=== PATIENT | female | born 1985 | race Caucasian/White ===

== ENCOUNTER 2022-06-06 19:45 | Emergency (ER) | payer OTHER, SELFPAY ==
[2022-06-06 20:26] VITALS: BP 132/80; PULSE 78; RESP 16; O2SAT 100
--- NOTE | 2022-06-06 20:41 | ED.GENADULT ---
HPI - General Adult General Chief complaint: Extremity Pain/Injury, Lower Stated complaint: Numbness in lower legs Time Seen by Provider: 06/06/22 20:29 History of Present Illness HPI narrative: Pt presents with bilateral lower extremity numbness starting yesterday. Pt has been working with her lap top on her lab. Pt has mild low back pain as well. Pt has some discomfort in the knees bilaterally as well. No other injuries. No weakness. No fever or chills. Pt has really no medical history and takes only Oral Control. Pt states that change in position doesnt affect her symptoms. She has no other neurological symptoms. No swelling and no pain with motion of the knees or back. She has tried no medications at home. Related Data Home Medications Medication Instructions Recorded Confirmed norgestimate-ethinyl estradiol tab 06/06/22 0.18 mg/0.215mg/0.25mg-35 mcg(28)tablet Allergies Allergy/AdvReac Type Severity Reaction Status Date / Time No Known Drug Allergies Allergy Verified 06/06/22 20:28 Review of Systems Status of ROS: Reports: 10 or more systems reviewed and unremarkable except as noted in History and below Exam Narrative: Exam Narrative: EXAM GENERAL: Patient appears comfortable and well. EYES: No scleral icterus. ENT: Tympanic membranes and oropharynx normal. THYROID: no thyroid nodules or thyromegaly. LYMPH: No supraclavicular or cervical lymphadenopathy. SKIN: Visible skin seen during exam normal or with benign process only. EXT: No dependent lower extremity pedal edema. HEART: Regular rate and rhythm with no murmurs, rubs, or gallops. LUNGS: Clear to auscultation bilaterally with no crackles or wheezes. ABD: Soft, non tender, non distended. PSYCH: Good eye contact, speech is not pressured. Neuro: Cranial nerves 2-12 grossly intact no focal defects. Const: Vital Signs, click to edit/add: Vital Signs - 24 hr 06/06/22 20:26 Pulse Rate [Left P ulse Oximeter] 78 Respiratory Rate 16 Blood Pressure [Ri ght Upper Arm] 132/80 Pulse Oximetry 100 Oxygen Delivery Me thod Room Air Course Course Hospital Course: Pt seen and examined. Vital Signs Vital signs: Initial Vital Signs Pulse Rate 78 06/06/22 20:26 Pulse Rhythm 06/06/22 20:26 Pulse Strength 3+ Normal 06/06/22 20:26 Respiratory Rate 16 06/06/22 20:26 Blood Pressure 132/80 06/06/22 20:26 Blood Pressure Mean 97 06/06/22 20:26 Blood Pressure Position Sitting 06/06/22 20:26 Pulse Oximetry 100 06/06/22 20:26 Oxygen Delivery Method 06/06/22 20:26 Vital Signs Pulse Rate 78 06/06/22 20:26 Respiratory Rate 16 06/06/22 20:26 Blood Pressure 132/80 06/06/22 20:26 Pulse Oximetry 100 06/06/22 20:26 Oxygen Delivery Method 06/06/22 20:26 Pulse Rate 78 06/06/22 20:26 Respiratory Rate 16 06/06/22 20:26 Blood Pressure 132/80 06/06/22 20:26 Pulse Oximetry 100 06/06/22 20:26 Oxygen Delivery Method 06/06/22 20:26 Medical Decision Making MDM Narrative Medical decision making narrative: Pt has a normal exam and vitals. Pt has been working in an awkward position and appears to have a radiculopathy. We did have a nice discussion about Guillain-[place] if symptoms were to worsen. Pt will be treated for radiculopahty with a short course of prednisone. If symptoms worsen, she will return or contact my office. Differential Diagnosis Differential Diagnosis: Nerve entrapment, Guillain-[place], MS, Joint pain, infection, CVA Discharge Plan Discharge Clinical Impression: Radiculopathy Patient Disposition: Home, Self-Care Condition: Stable Instructions: Lumbar Radiculopathy (ED) Additional Instructions: Prednsione as directed Activity Level: No Restrictions Discharge Diet: Regular Prescriptions: No Action norgestimate-ethinyl estradiol 0.18/0.215/0.25 mg-35 mcg (28) tablet Label Comments: TAKE 1 TABLET BY MOUTH EVERY DAY Follow Up/Referrals: Provider,Not a Local [Primary Care Provider] - Stand Alone Forms: [employer] Info Instructions
--- OUTSIDE RECORDS SUMMARY | 2022-06-06 20:56 | XMS_ITS | Encounter Summary ---
:1985 Author Organization [facility] Address [address] [place], [place] [address]. [place] [address] Care Team Providers Name Role Phone Annalisa Mark APRN CYTOPATHOLOGY TECHNOLOGIST Primary Care Provider [phone] Annalisa Mark APRN CYTOPATHOLOGY TECHNOLOGIST Unavailable [phone] Jacob Carmona MD Unavailable [phone] Encounter Details Date Type Department Care Team Description 02/20/2022 Travel Social History Tobacco Use Types Packs/Day Years Used Date Smoking Tobacco: Never Smokeless Tobacco: Never Alcohol Use Standard Drinks/Week Comments Not Currently 0 (1 standard drink = 0.6 oz pure alcoho l) Occaisional Alcohol Habits Answer Date Recorded How often do you have a drink containing alcohol? Monthly or less 10/17/2021 How many drinks containing alcohol do you have on a 1 or 2 10/17/2021 typical day when you are drinking? How often do you have six or more drinks on one Never 10/17/2021 occasion? Social Isolation Answer Date Recorded In a typical week, how many times do you More than three los es a week 10/17/2021 talk on the phone with family, friends, or neighbors? How often do you get together with friends Once a week 10/17/2021 or relatives? How often do you attend pentecostal or Patient refused 2021 protestant services? Do you belong to any clubs or No 10/17/2021 organizations such as pentecostal groups, unions, fraternal or athletic groups, or school groups? How often do you attend meetings of the Not asked clubs or organizations you belong to? Are you now , , , Never 10/17/2021 , never or living with a partner? Physical Activity Answer Date Recorded On average, how many days per week do you engage in moderate to 6 days 10/17/2021 strenuous exercise (like walking fast, running, jogging, dancing, swimming, biking, or other activities that cause a light or heavy sweat)? On average, how many minutes do you engage in exercise at th is 10 min 10/17/2021 level? Stress Answer Date Recorded Do you feel stress - tense, restless, nervous, or To some ex tent 10/17/2021 anxious, or unable to sleep at night because your mind is troubled all the time - these days? Financial Resource Strain Answer Date Recorded How hard is it for you to pay for the very basics like Not h ruthie at all 10/17/2021 food, housing, medical care, and heating? Food Insecurity Answer Date Recorded Within the past 12 months, you worried that your food would Never true 10/17/2021 run out before you got money to buy more. Within the past 12 months, the food you bought just didn't N ever true 10/17/2021 last and you didn't have money to get more. Transportation Needs Answer Date Recorded In the past 12 months, has lack of transportation kept you f rom No 10/17/2021 medical appointments or from getting medications? In the past 12 months, has lack of transportation kept you f rom No 10/17/2021 meetings, work, or getting things needed for daily living? Housing Stability Answer Date Recorded In the last 12 months, was there a time when you were not ab le No 10/17/2021 to pay the mortgage or rent on time? In the last 12 months, how many places have you lived? 1 10/17/2021 In the last 12 months, was there a time when you did not hav e a No 10/17/[address] or slept in a senior care (including now)? Education Answer Date Recorded What is the highest level of school Bachelor's degree (e.g., BA, AB, 02/15/2019 you have completed or the highest BS) degree you have received? Sex Assigned at Date Recorded Female 03/25/2021 2:01 PM CDT COVID-19 Exposure Response Date Recorded In the last 10 days, have you been in contact with No / Unsu re 02/20/2022 12:21 PM CDT someone who was confirmed or suspected to have Coronavirus/COVID-19? documented as of this encounter Plan of Treatment Not on filedocumented as of this encounter Visit Diagnoses Not on filedocumented in this encounter Additional Health Concerns Assessment Noted Time PHQ-9 Depression Total Score: 4 10/17/2021 10:05 AM CD T documented as of this encounter Care Teams Forming Mill Operator Relationship Specialty Start Date End Date Annalisa Mark, PCP - General Nurse Practitioner 03/22/15 DAIRY TECHNICIAN CYTOPATHOLOGY TECHNOLOGIST [address] [place] [address] Annalisa Mark, Assigned PCP 01/22/20 2 DAIRY TECHNICIAN CYTOPATHOLOGY TECHNOLOGIST [address] [place] [address] Jacob Carmona Assigned OBGYN Provider 05/18/20 MD Antony [address] [place], [place] [id number] documented as of this encounter
--- OUTSIDE RECORDS SUMMARY | 2022-06-06 20:56 | XMS_ITS | Encounter Summary ---
:1985 Author Organization [facility] Address [address] [place], [place] [address]. [place] [address] Care Team Providers Name Role Phone Annalisa Mark APRN DEPARTURE CLERK Primary Care Provider [phone] Annalisa Mark APRN DEPARTURE CLERK Unavailable [phone] Jacob Carmona MD Unavailable [phone] Encounter Details Date Type Department Care Team Description 01/16/2022 Travel Social History Tobacco Use Types Packs/Day [...] or relatives? How often do you attend muslim or Patient refused 2021 orthodoxy services? Do you belong to any clubs or No 10/17/2021 organizations such as muslim groups, unions, fraternal or athletic groups, or [...] place to sleep or slept in a assisted (including now)? Education Answer Date Recorded What is the highest level of school Bachelor's degree (e.g., BA, AB, 02/15/2019 you have completed or the highest BS) degree you have received? Sex Assigned at Date Recorded Female 03/25/2021 2:01 PM CDT COVID-19 Exposure Response Date Recorded In the last 10 days, have you been in contact with No / Unsu re 01/16/2022 8:09 AM CDT someone who was confirmed or suspected to have Coronavirus/COVID-19? documented as of this encounter Plan of Treatment Not on filedocumented as of this encounter Visit Diagnoses Not on filedocumented in this encounter Additional Health Concerns Assessment Noted Time PHQ-9 Depression Total Score: 4 10/17/2021 10:05 AM CD T documented as of this encounter Care Teams Behavioral Health Case Manager Relationship Specialty Start Date End Date Annalisa Mark, PCP - General Nurse Practitioner 03/22/15 FIRE ALARM TECHNICIAN DEPARTURE CLERK [address] [place] [address] Annalisa Mark, Assigned PCP 01/22/20 2 FIRE ALARM TECHNICIAN DEPARTURE CLERK [address] [place] [address] Jacob Carmona Assigned OBGYN Provider 05/18/20 MD Antony [address] [place], [place] [id number] documented as of this encounter
--- OUTSIDE RECORDS SUMMARY | 2022-06-06 20:56 | XMS_ITS | Encounter Summary ---
:1985 Author Organization [facility] Address [address] [place], [place] [address]. [place] [address] Care Team Providers Name Role Phone Annalisa Mark APRN ELECTRO MECHANIC Primary Care Provider [phone] Annalisa Mark APRN ELECTRO MECHANIC Unavailable [phone] Jacob Carmona MD Unavailable [phone] Encounter Details Date Type Department Care Team Description 02/04/2022 Travel Social History Tobacco Use Types Packs/Day [...] or relatives? How often do you attend orthodox or Patient refused 2021 quaker services? Do you belong to any clubs or No 10/17/2021 organizations such as orthodox groups, unions, fraternal or athletic groups, or [...] place to sleep or slept in a residential (including now)? Education Answer Date Recorded What is the highest level of school Bachelor's degree (e.g., BA, AB, 02/15/2019 you have completed or the highest BS) degree you have received? Sex Assigned at Date Recorded Female 03/25/2021 2:01 PM CDT COVID-19 Exposure Response Date Recorded In the last 10 days, have you been in contact with No / Unsu re 02/04/2022 1:23 PM CDT someone who was confirmed or suspected to have Coronavirus/COVID-19? documented as of this encounter Plan of Treatment Not on filedocumented as of this encounter Visit Diagnoses Not on filedocumented in this encounter Additional Health Concerns Assessment Noted Time PHQ-9 Depression Total Score: 4 10/17/2021 10:05 AM CD T documented as of this encounter Care Teams Matrix Drier Tender Relationship Specialty Start Date End Date Annalisa Mark, PCP - General Nurse Practitioner 03/22/15 FLIGHT SERVICE SPECIALIST ELECTRO MECHANIC [address] [place] [address] Annalisa Mark, Assigned PCP 01/22/20 2 FLIGHT SERVICE SPECIALIST ELECTRO MECHANIC [address] [place] [address] Jacob Carmona Assigned OBGYN Provider 05/18/20 MD Antony [address] [place], [place] [phone] documented as of this encounter
--- OUTSIDE RECORDS SUMMARY | 2022-06-06 20:56 | XMS_ITS | Encounter Summary ---
:1985 Author Organization [facility] Address [address] [place] [address] Care Team Providers Name Role Phone Deedee, Annalisa Peacock APRN BATTERY CHARGER TESTER Primary Care Provider [phone] Annalisa Mark APRN BATTERY CHARGER TESTER Unavailable [phone] Jacob Carmona MD Unavailable [phone] Reason for Visit Reason Comments Urgent Care Eye Problem Left eye concerns of sandy Encounter Details Date Type Department Care Team Description 02/04/2022 Office Visit [facility] Hilary Root titis of left Urgent Care Patrica Alston PA-C lacrimal sac (Primary [address] [address] [place]) [facility] [address] [place], [place] [phone] [id number] Social History Tobacco Use Types Packs/Day Years [...] or relatives? How often do you attend sabianist or Patient refused 2021 muslim services? Do you belong to any clubs or No 10/17/2021 organizations such as sabianist groups, unions, fraternal or athletic groups, or [...] place to sleep or slept in a correction (including now)? Education Answer Date Recorded What [...] have Coronavirus/COVID-19? documented as of this encounter Last Filed Vital Signs Vital Sign Reading Time Taken Comments Blood Pressure 115/79 02/04/2022 1:33 PM CDT Pulse 85 02/04/2022 1:33 PM CDT Temperature 36.9 ??C (98.5 ??F) 02/04/2022 1:33 PM CDT Respiratory Rate - - Oxygen Saturation 99% 02/04/2022 1:33 PM CDT Inhaled Oxygen Concentration - - Weight - - Height - - Body Mass Index - - documented in this encounter Patient Instructions AttachmentsThe following attachments cannot be sent through Care Everywhere. Dacryocystitis ([place])documented in this encounter Progress Notes Hilary Root PA-C - 02/04/2022 1:45 PM CDT Images from the original note were not included. Assessment/Plan: Suspect early, mild dacryocystitis. Symptoms limited to small area over medial eye, no involvement past this area. No signs of preseptal or orbital cellulitis. Will treat with clindamycin and given strict return precautions. See patient instructions below. At the end of the encounter, I discussed results, diagnosis, medications. Discussed red flags for immediate return to clinic/ER, as well as indications for follow up if no improvement. Patient understood and agreed to plan. Patient was stable for discharge. ICD-10-CM 1. Dacryocystitis of left lacrimal sac H04.302 clindamycin (CLEOCIN) 150 MG capsule Return in about 3 days (around 02/07/2022) for Follow up w/ primary care provider if not better. GLENYS Ricardo, [facility] HPI: Tameka Grissom is a 36 year old female who presents for evaluation of erythema, swelling, pain, andtenderness to L medial eye onset 3 days ago. She states it feels like it is bruised and today painis radiating into the bridge of her nose slightly. No injury noted. She has had styes before. No treatments tried. Patient reports no vision changes, reduced EOM, conjunctival injection or drainage, fever/chills, headache, nausea, vomiting, rash, or any other symptoms. Past Medical History: Diagnosis Date ??? Allergic rhinitis, seasonal ??? Breast disorder benign tumor removed in 1997 ??? Cystic fibrosis carrier ??? Generalised anxiety disorder 01/29/2012 ??? History of colposcopy with cervical biopsy 02/24/08 PEDRO I, 11/21/08 PEDRO I, 04/10/09 PEDRO I &II, ??? History of OCD (obsessive compulsive disorder) 01/29/2012 ??? Mild major depression (H) ??? Papanicolaou smear of cervix with low grade squamous intraepithelial lesion (LGSIL) 02/15/08, 08/01/08, 04/05/09, 08/28/09 ??? Wounds and injuries fall in 09/03/16 Vitals: 02/04/22 1333 BP: 115/79 Pulse: 85 Temp: 98.5 ??F (36.9 ??C) TempSrc: Tympanic SpO2: 99% Physical Exam Vitals and nursing note reviewed. Eyes: Extraocular Movements: Extraocular movements intact. Conjunctiva/sclera: Conjunctivae normal. Pupils: Pupils are equal, round, and reactive to light. Comments: No periorbital edema, proptosis, or ophthalmoplegia Pulmonary: Effort: Pulmonary effort is normal. Neurological: Mental Status: She is alert. Labs/Imaging: No results found for this or any previous visit (from the past 24 hour(s)). There are no Patient Instructions on file for this visit. documented in this encounter Plan of Treatment Not on filedocumented as of this encounter Visit Diagnoses Diagnosis Dacryocystitis of left lacrimal sac - Pr imary documented in this encounter Additional Health Concerns Assessment Noted Time PHQ-9 Depression Total Score: 4 10/17/2021 10:05 AM CD T documented as of this encounter Care Teams Head Greenskeeper Relationship Specialty Start Date End Date Annalisa Mark, PCP - General Nurse Practitioner 03/22/15 TYPING SECRETARY BATTERY CHARGER TESTER [address] [place] [address] Annalisa Mark, Assigned PCP 01/22/20 2 TYPING SECRETARY BATTERY CHARGER TESTER [address] [place] [address] Jacob Carmona Assigned OBGYN Provider 05/18/20 [place] [address] documented as of this encounter
--- OUTSIDE RECORDS SUMMARY | 2022-06-06 20:56 | XMS_ITS | Encounter Summary ---
:1985 Author Organization [place] [facility] Address [facility] [place] [address] Care Team Providers Name Role Phone DeedeeAnnalisa dean Madonna STANLEY CNP Primary Care Provider [phone] Jacob Carmona MD Unavailable [phone] Leonor Burgos MD Unavailable [phone] Encounter Details Date Type Department Care Team Description 02/26/2022 Lab [facility] Zo rrhea, unspecified type [facility] [address] [place] [address] Social History Tobacco Use Types Packs/Day Years [...] or relatives? How often do you attend sikhism or Patient refused 2021 samaritan services? Do you belong to any clubs or No 10/17/2021 organizations such as sikhism groups, unions, fraternal or athletic groups, or [...] in contact with No / Unsu re 02/26/2022 9:00 AM CDT someone who was confirmed or suspected to have Coronavirus/COVID-19? documented as of this encounter Plan of Treatment Not on filedocumented as of this encounter Procedures Procedure Name Priority Date/Time Associated Diagnosis Comme nts CLOSTRIDIUM Routine 02/26/2022 3:52 PM Diarrhea, Results f or this DIFFICILE TOXIN B CDT unspecified type proced ure are in the results section. ENTERIC BACTERIA AND Routine 02/26/2022 3:51 PM Diarrhea, R esults for this VIRUS PANEL BY AIDE CDT unspecified type proce dure are in STOOL the results section. documented in this encounter Results (ABNORMAL) Clostridium difficile Toxin B PCR (02/26/2022 3:52 PM CDT) [facility] Method Time Signature C Difficile Positive (A) Negative 02/27/2022 [facility] Toxin B by 1:52 PM CDT LABORATORY PCR Comment: Detection of C. difficile nucle ic acid in stools confirms the presence of these organisms in diarrheal patients bu t may not indicate that C. difficile are the etiologic agents of the diarrhea. Result s from the Xpert C. difficile assay should be interpreted in conjunction with other la boratory and clinical data available to the clinician. Specimen Anatomical Collection Method Collection Time Receive d Time (Source) Location / / Volume Laterality Stool RECTAL CONTENTS / Non-blood 02/26/2022 3:52 PM 08/0 09/2021 3:52 Unknown Collection / CDT PM CDT Unknown Narrative [facility] - 02/27/2022 1:52 PM C DT The Cepheid Xpert C. difficile Assay, pe rformed on the [employer] Gene[employer]pert?? Instrument Systems, is a qualitative in vitro diagn ostic test for rapid detection of toxin B gene sequences from unformed (liquid or soft) stool specimens collected from patients suspected of having Clostridioides diffi cile infection (CDI). The test utilizes automated real-time polymerase chain brandt ction (PCR) to detect toxin gene sequences associated with toxin producing C. diffi javier. The Xpert C. difficile Assay is intended as an aid in the diagnosis of C DI. Dior Chung ADMINISTRATIVE SUPPORT SPECIALIST DIESEL TRUCK DRIVER LAB - MICRO GENERAL ORDERAB LES Performing Organization Address City/State/ZIP Code Phon e Number [facility] [place] [address] Diag. Lab [address] [facility], [address] Enteric Bacteria and Virus Panel by AIDE Stool (02/26/2022 3:51 PM CDT) [facility] Method Time Signature Campylobacter Not Not 02/27/2022 [facility] group Detected Detected 7:01 PM CDT LABORATORY Salmonella Not Not 02/27/2022 [facility] species Detected Detected 7:01 PM CDT LABORATORY Shigella species Not Not 02/27/2022 [facility] Detected Detected 7:01 PM CDT LABORATORY Vibrio group Not Not 02/27/2022 [facility] Detected Detected 7:01 PM CDT LABORATORY Rotavirus Not Not 02/27/2022 [facility] Detected Detected 7:01 PM CDT LABORATORY Shiga toxin 1 Not Not 02/27/2022 [facility] gene Detected Detected 7:01 PM CDT LABORATORY Shiga toxin 2 Not Not 02/27/2022 [facility] gene Detected Detected 7:01 PM CDT LABORATORY Norovirus I and Not Not 02/27/2022 [facility] II Detected Detected 7:01 PM CDT LABORATORY Yersinia Not Not 02/27/2022 [facility] enterocolitica Detected Detected 7:01 PM CDT LABORATORY Specimen Anatomical Collection Method Collection Time Receive d Time (Source) Location / / Volume Laterality Stool RECTAL CONTENTS / Non-blood 02/26/2022 3:51 PM 08/0 09/2021 3:52 Unknown Collection / CDT PM CDT Unknown Narrative [facility] - 02/27/2022 7:01 PM C DT Testing performed by multiplexed, qualit ative PCR using the [employer] Enteric Pathogens Nucleic Acid Test. Results serafin uld not be used as the sole basis for diagnosis, treatment or other patient ma nagement decisions. Positive results do not rule out co-infection with other organis ms that are not detected by this test and may not be the sole or definitive cause of p atient illness. Negative results in the setting of clinical illness compatible w ith gastroenteritis may be due to infection by pathogens that are not detected by th is test or non-infectious causes such as ulcerative colitis, irritable bowel synd josh or Crohn's disease. Note: Shiga toxin producing E. coli (STEC) typically harbo r one or both genes that encode for Shiga toxins 1 and 2. Dior Chung ADMINISTRATIVE SUPPORT SPECIALIST DIESEL TRUCK DRIVER LAB - MICRO GENERAL ORDERAB LES Performing Organization Address City/State/ZIP Code Phon e Number [facility] [place] [address] Diag. Lab [address] [facility] documented in this encounter Visit Diagnoses Diagnosis Diarrhea, unspecified type documented in this encounter Additional Health Concerns Assessment Noted Time PHQ-9 Depression Total Score: 4 10/17/2021 10:05 AM CD T documented as of this encounter Care Teams Field Clinical Engineer Relationship Specialty Start Date End Date Annalisa Mark, PCP - General Nurse Practitioner 03/22/15 ADMINISTRATIVE SUPPORT SPECIALIST DIESEL TRUCK DRIVER [address] [place], [place] [id number] Jacob Carmona Assigned OBGYN Provider 05/18/20 MD Antony [address] [place] [address] Leonor Burgos Assigned PCP 02/22/22 2 MD Joel [address] [place], [place] [id number] documented as of this encounter
--- OUTSIDE RECORDS SUMMARY | 2022-06-06 20:56 | XMS_ITS | Encounter Summary ---
:1985 Author Organization [place] Address [address] [facility] [place] [address] Care Team Providers Name Role Phone Annalisa Mark APRN, CNP Primary Care Provider [phone] Annalisa Mark APRN [employer] CRM DEVELOPER Unavailable [phone] Jacob Carmona MD Unavailable [phone] Reason for Visit Reason Comments Dizziness Dizzy x the weekend Encounter Details Date Type Department Care Team Description 02/20/2022 Office Visit [facility] EdenilsongertrudeJennifer (Primary Dx); Urgent Care Patrica Soto MD Dehydration [address] [facility] [address] [place] [phone] Social History Tobacco Use Types Packs/Day Years [...] or relatives? How often do you attend protestant or Patient refused 2021 sabianist services? Do you belong to any clubs or No 10/17/2021 organizations such as protestant groups, unions, fraternal or athletic groups, or [...] Sign Reading Time Taken Comments Blood Pressure 110/66 02/20/2022 12:53 PM CDT Pulse 103 02/20/2022 12:53 PM CDT Temperature 37.1 ??C (98.8 ??F) 02/20/2022 12:53 PM CDT Respiratory Rate 16 02/20/2022 12:53 PM CDT Oxygen Saturation 98% 02/20/2022 12:53 PM CDT Inhaled Oxygen Concentration - - Weight 50.8 kg (112 lb) 02/20/2022 12:53 PM CDT Height 160 cm (5' 3) 02/20/2022 12:53 PM CDT Body Mass Index 19.84 02/20/2022 12:53 PM CDT documented in this encounter Progress Notes Jennifer Curran MD - 02/20/2022 12:30 PM CDT Assess/ Plan Malaise - CBC with platelets and differential; Future - Comprehensive metabolic panel (BMP + Alb, Alk Phos, ALT, AST, Total. Bili, TP); Future - UA Macro with Reflex to Micro and Culture - lab collect; Future - CBC with platelets and differential - Comprehensive metabolic panel (BMP + Alb, Alk Phos, ALT, AST, Total. Bili, TP) - UA Macro with Reflex to Micro and Culture - lab collect Dehydration Patient was reassured that today's testing and physical exam show no signs of severe pathology- Normal cbc/ urine, CMP pending Encourage drinking electrolyte solution.- May be a mild heat exhaustion If worsening symptoms with with altered neurologic function, chest pain and/or shortness of breath go to ER Follow-up with primary care to reassess symptoms If persistent SUBJECTIVE: Chief Complaint Patient presents with ??? Dizziness Dizzy x the weekend Tameka Grissom is a 36 year old female complains of lightheadedness and denies vertigo or spinning sensation Denies cough, shortness of breath, acute respiratory illness, abdominal discomfort, nausea, vomiting, diarrhea, constipation, dysuria Patient denies chest pain, irregular heart rhythm, , paralysis, paresthesias Timing: gradual onset, still present and constant; mild Context: light activity. Quality: light-headedness.- No vertigo symptoms does interfere mildly with activities of daily living;- has increased fatigue denies any previous problems with similar symptoms. Past Medical History: Diagnosis Date ??? [...] ??? Wounds and injuries fall in 09/03/16 Patient Active Problem List Diagnosis ??? CARDIOVASCULAR SCREENING; LDL GOAL LESS THAN 160 ??? H/O LEEP ??? History of OCD (obsessive compulsive disorder) ??? Generalized anxiety disorder ALLERGIES: Patient has no known allergies. MEDs hydrocortisone (CORTAID) 1 % external cream, Apply topically 2 times daily norgestim-eth estrad triphasic (ORTHO TRI-CYCLEN) 0.18/0.215/0.25 MG-35 MCG tablet, Take 1 tablet bymouth daily citalopram (CELEXA) 10 MG tablet, Take 1 tablet (10 mg) by mouth daily (Patient not taking: Reportedon 02/20/2022) No current facility-administered medications on file prior to visit. Social History Tobacco Use ??? Smoking status: Never Smoker ??? Smokeless tobacco: Never Used Substance Use Topics ??? Alcohol use: Not Currently Alcohol/week: 0.0 standard drinks Comment: Occaisional Family History Problem Relation Age of Onset ??? Arthritis Mother degenerative in knees ??? Lipids Mother ??? Alcohol/Drug Mother ??? Substance Abuse Mother ??? Obesity Mother ??? Lipids Father ??? Family History Negative Sister ??? Family History Negative Brother ??? Breast Cancer Other Paternal aunt ??? Cystic Fibrosis Son ??? Diabetes Maternal Grandmother ??? Obesity Maternal Grandmother ??? Other Cancer Other Lymphoma ??? Genetic Disorder Other Son has CF ROS: CONSTITUTIONAL:NEGATIVE for fever, chills, INTEGUMENTARY/SKIN: NEGATIVE for worrisome rashes, or lesions EYES: NEGATIVE for vision changes or irritation ENT/MOUTH: NEGATIVE for ear, mouth and throat problems RESP:NEGATIVE for significant cough or SOB OBJECTIVE: BP 110/66 (BP Location: Right arm, Patient Position: Chair, Cuff Size: Adult Regular) Pulse 103 Temp 98.8 ??F (37.1 ??C) (Oral) Resp 16 Ht 1.6 m (5' 3) Wt 50.8 kg (112 lb) LMP 01/29/2022 SpO2 98% No BMI 19.84 kg/m?? Appears well, in no apparent distress. HEENT: Ears Normal , Mouth normal Cranial nerves 2 through 12 grossly intact and No facial droop, nolid lag, normal facial features NECK: Supple. No adenopathy or masses in the neck or supraclavicular regions. Cranial nerves are normal. EYES . PERRLA. EOM's intact. HEART: S1 and S2 normal, no murmurs, clicks, gallops or rubs. Regular rate and rhythm. LUNGS: Chest is clear; no wheezes or rales. No edema or JVD. ABDOMEN: Soft, non-tender, normal bowel sounds, no masses, no organomegaly NEURO: . Mental status normal. Gait and station normal. Romberg negative. Cerebellar function is normal. Walks on toes, heels and tandem walk without difficulty . Finger- nose accurate. Cranial nerves grossly intact. Sensation equal and intact in all extremities Results for orders placed or performed in visit on 02/20/22 UA Macro with Reflex to Micro and Culture - lab collect Status: Normal Specimen: Urine, Midstream Result Value Ref Range Color Urine Yellow Colorless, Straw, Light Yellow, Yellow Appearance Urine Clear Clear Glucose Urine Negative Negative mg/dL Bilirubin Urine Negative Negative Ketones Urine Negative Negative mg/dL Specific [place] Urine <=1.005 1.003 - 1.035 Blood Urine Negative Negative pH Urine 5.5 5.0 - 7.0 Protein Albumin Urine Negative Negative mg/dL Urobilinogen Urine 0.2 0.2, 1.0 E.U./dL Nitrite Urine Negative Negative Leukocyte Esterase Urine Negative Negative Narrative Microscopic not indicated CBC with platelets and differential Status: None Result Value Ref Range WBC Count 9.8 4.0 - 11.0 10e3/uL RBC Count 4.22 3.80 - 5.20 10e6/uL Hemoglobin 13.6 11.7 - 15.7 g/dL Hematocrit 40.0 35.0 - 47.0 % MCV 95 78 - 100 fL MCH 32.2 26.5 - 33.0 pg MCHC 34.0 31.5 - 36.5 g/dL RDW 11.5 10.0 - 15.0 % Platelet Count 249 150 - 450 10e3/uL % Neutrophils 66 % % Lymphocytes 28 % % Monocytes 4 % % Eosinophils 2 % % Basophils 0 % Absolute Neutrophils 6.4 1.6 - 8.3 10e3/uL Absolute Lymphocytes 2.7 0.8 - 5.3 10e3/uL Absolute Monocytes 0.4 0.0 - 1.3 10e3/uL Absolute Eosinophils 0.2 0.0 - 0.7 10e3/uL Absolute Basophils 0.0 0.0 - 0.2 10e3/uL CBC with platelets and differential Status: None Narrative The following orders were created for panel order CBC with platelets and differential. Procedure Abnormality Status --------- ------ CBC with platelets and d...[[id number]] Final result Please view results for these tests on the individual orders. documented in this encounter Plan of Treatment Not on filedocumented as of this encounter Procedures Procedure Name Priority Date/Time Associated Comments Diagnosis CBC WITH PLATELETS AND Routine 02/20/2022 1:18 PM Malaise Results for this DIFFERENTIAL CDT procedure are i n the results section. UA MACROSCOPIC WITH Routine 02/20/2022 1:18 PM Malaise Re sults for this REFLEX TO MICRO AND CDT procedur e are in CULTURE the results section. CBC WITH PLATELETS & Routine 02/20/2022 1:18 PM Malaise R esults for this DIFFERENTIAL CDT procedure are i n the results section. COMPREHENSIVE Routine 02/20/2022 1:18 PM Malaise Results for this METABOLIC PANEL CDT procedure ar e in the results section. documented in this encounter Results CBC with platelets and differential (02/20/2022 1:18 PM CDT) P athologist Signature WBC Count 9.8 4.0 - 11.0 02/20/2022 [facility] 10e3/uL 1:24 PM CDT RBC Count 4.22 3.80 - 02/20/2022 [facility] 5.20 1:24 PM CDT 10e6/uL Hemoglobin 13.6 11.7 - 02/20/2022 [facility] 15.7 g/dL 1:24 PM CDT Hematocrit 40.0 35.0 - 02/20/2022 [facility] 47.0 % 1:24 PM CDT MCV 95 78 - 100 02/20/2022 [facility] fL 1:24 PM CDT MCH 32.2 26.5 - 02/20/2022 [facility] 33.0 pg 1:24 PM CDT MCHC 34.0 31.5 - 02/20/2022 [facility] 36.5 g/dL 1:24 PM CDT RDW 11.5 10.0 - 02/20/2022 [facility] 15.0 % 1:24 PM CDT Platelet Count 249 150 - 450 02/20/2022 [facility] 10e3/uL 1:24 PM CDT % Neutrophils 66 % 02/20/2022 [facility] 1:24 PM CDT % Lymphocytes 28 % 02/20/2022 [facility] 1:24 PM CDT % Monocytes 4 % 02/20/2022 [facility] 1:24 PM CDT % Eosinophils 2 % 02/20/2022 [facility] 1:24 PM CDT % Basophils 0 % 02/20/2022 [facility] 1:24 PM CDT Absolute 6.4 1.6 - 8.3 02/20/2022 [facility] Neutrophils 10e3/uL 1:24 PM CDT Absolute 2.7 0.8 - 5.3 02/20/2022 [facility] Lymphocytes 10e3/uL 1:24 PM CDT Absolute 0.4 0.0 - 1.3 02/20/2022 [facility] Monocytes 10e3/uL 1:24 PM CDT Absolute 0.2 0.0 - 0.7 02/20/2022 [facility] Eosinophils 10e3/uL 1:24 PM CDT Absolute 0.0 0.0 - 0.2 02/20/2022 [facility] Basophils 10e3/uL 1:24 PM CDT Specimen Anatomical Collection Method / Collection Time Recei zahira Time (Source) Location / Volume Laterality Blood BLOOD SPECIMEN / Venipuncture / 02/20/2022 1:18 2021 1:22 Unknown Unknown PM CDT PM CDT Jennifer Curran MD LAB - BLOOD ORDERABLES Performing Organization Address City/State/ZIP Code [place] [phone] Lab [address] [facility] Lab (no room number, 1st floor of clinic) [place] [address], [facility] [address] [facility] Lab (no room number, 1st floor of clinic) UA Macro with Reflex to Micro and Culture - lab collect (02/20/2022 1:18 PM CDT) [facility] gist Method Time Signature Color Urine Yellow Colorless, 02/20/2022 LABORATORY Straw, Light 1:29 PM CDT Yellow, Yellow Appearance Urine Clear Clear 02/20/2022 [facility] Y 1:29 PM CDT Glucose Urine Negative Negative 02/20/2022 [facility]ATORY mg/dL 1:29 PM CDT Bilirubin Urine Negative Negative 02/20/2022 [facility] 1:29 PM CDT Ketones Urine Negative Negative 02/20/2022 [facility]ATORY mg/dL 1:29 PM CDT Specific [place] <=1.005 1.003 - 02/20/2022 [facility] Urine 1.035 1:29 PM CDT Blood Urine Negative Negative 02/20/2022 [facility] 1:29 PM CDT pH Urine 5.5 5.0 - 7.0 02/20/2022 [facility] 1:29 PM CDT Protein Albumin Negative Negative 02/20/2022 [facility]ATORY Urine mg/dL 1:29 PM CDT Urobilinogen 0.2 0.2, 1.0 02/20/2022 LAB[facility]ATORY Urine E.U./dL 1:29 PM CDT Nitrite Urine Negative Negative 02/20/2022 [facility] 1:29 PM CDT Leukocyte Negative Negative 02/20/2022 LAB[facility]ATORY Esterase Urine 1:29 PM CDT Specimen Anatomical Collection Method Collection Time Receive d Time (Source) Location / / Volume Laterality Urine MID-STREAM URINE Non-blood 02/20/2022 1:18 PM 02/20 1:26 SPECIMEN / Unknown Collection / CDT PM CDT Unknown Narrative LABORATORY - 02/20/2022 1:29 PM CDT Microscopic not indicated Jennifer Curran MD LAB - URINE ORDERABLES Performing Organization Address City/State/ZIP Code [place] [phone] Lab [address] [facility] Lab (no room number, 1st floor of clinic) [place] [address], [facility] [address] [facility] Lab (no room number, 1st floor of clinic) Comprehensive metabolic panel (BMP + Alb, Alk Phos, ALT, AST, Total. Bili, TP) (02/20/2022 1:18 PM CDT) athologist Signature Sodium 139 133 - 144 02/21/2022 [facility] mmol/L 12:13 PM CDT Potassium 4.2 3.4 - 5.3 02/21/2022 [facility] mmol/L 12:13 PM CDT Chloride 107 94 - 109 02/21/2022 [facility] mmol/L 12:13 PM CDT Carbon Dioxide 28 20 - 32 02/21/2022 [facility] (CO2) mmol/L 12:13 PM CDT Anion Gap 4 3 - 14 02/21/2022 [facility] mmol/L 12:13 PM CDT Urea Nitrogen 15 7 - 30 02/21/2022 [facility] mg/dL 12:13 PM CDT Creatinine 0.74 0.52 - 02/21/2022 [facility] 1.04 mg/dL 12:13 PM CDT Calcium 9.3 8.5 - 10.1 02/21/2022 [facility] mg/dL 12:13 PM CDT Glucose 80 70 - 99 02/21/2022 [facility] mg/dL 12:13 PM CDT Alkaline 56 40 - 150 02/21/2022 [facility] Phosphatase U/L 12:13 PM CDT AST 19 0 - 45 U/L 02/21/2022 [facility] 12:13 PM CDT ALT 30 0 - 50 U/L 02/21/2022 [facility] 12:13 PM CDT Protein Total 6.9 6.8 - 8.8 02/21/2022 [facility] g/dL 12:13 PM CDT Albumin 3.8 3.4 - 5.0 02/21/2022 [facility] g/dL 12:13 PM CDT Bilirubin Total 0.2 0.2 - 1.3 02/21/2022 [facility] mg/dL 12:13 PM CDT GFR Estimate >90 >60 02/21/2022 [facility] mL/min/1.7 12:13 PM CDT 3m2 Comment: Effective July 16, 2021 eGF Rcr in adults is calculated using the 2020 CKD-EPI creatinine equation which includ es age and gender (Soco et al., NEJM, DOI: 10.1056/GVLZed3124475) Specimen Anatomical Collection Method / Collection Time Recei zahira Time (Source) Location / Volume Laterality Blood BLOOD SPECIMEN / Venipuncture / 02/20/2022 1:18 2021 1:22 Unknown Unknown PM CDT PM CDT Jennifer Curran MD LAB - BLOOD ORDERABLES Performing Organization Address City/State/ZIP Code Phon e Number [facility] - [place], [place] [phone] [place] [facility] [phone] Lab (no room number, 1st floor of clinic) OX LABORATORY [place], [place] [phone] [facility] [place] [phone] [place] [facility] [address] Lab (no room number, 1st floor of clinic) documented in this encounter Visit Diagnoses Diagnosis Malaise - Primary Other malaise and fatigue Dehydration documented in this encounter Additional Health Concerns Assessment Noted Time PHQ-9 Depression Total Score: 4 10/17/2021 10:05 AM CD T documented as of this encounter Care Teams Export Documents Clerk Relationship Specialty Start Date End Date Annalisa Mark, PCP - General Nurse Practitioner 03/22/15 TRANSITIONS RN CARE COORDINATOR [employer] DEVELOPER [address] [place] [address] Annalisa Mark, Assigned PCP 01/22/20 2 TRANSITIONS RN CARE COORDINATOR [employer] CRM DEVELOPER [address] [place] [address] Jacob Carmona Assigned OBGYN Provider 05/18/20 MD [place] [address] documented as of this encounter
--- OUTSIDE RECORDS SUMMARY | 2022-06-06 20:56 | XMS_ITS | Encounter Summary ---
:1985 Author Organization [place] Address [address] [place] [address] Care Team Providers Name Role Phone Annalisa Mark JADEN MONTALVO Primary Care Provider [phone] Jacob Carmona MD Unavailable [phone] Leonor Burgos MD Unavailable [phone] Reason for Visit Reason Onset Date Comments Other Entered automaticall y based on patient selection in [employer] . Erroneous encounter-disregard 03/27/2022 Encounter Details Date Type Department Care Team Description 03/27/2022 E-Visit [facility] Katia Burgos ( Entered [facility] [place] [address] [facility] [id number] [place] [address] tammy... [place] [address] [phone] Social History Tobacco Use Types Packs/Day Years [...] or relatives? How often do you attend denominational or Patient refused 2021 jewish services? Do you belong to any clubs or No 10/17/2021 organizations such as denominational groups, unions, fraternal or athletic groups, or [...] place to sleep or slept in a [place] health [place] facility (including now)? Education Answer Date Recorded What [...] have Coronavirus/COVID-19? documented as of this encounter Miscellaneous Notes Telephone Encounter - Leonor Burgos MD - 03/27/2022 7:29 AM CDT This encounter was opened in error. Please disregard. No appropriate for evisit. NWD documented in this encounter Plan of Treatment Not on filedocumented as of this encounter Visit Diagnoses Diagnosis ERRONEOUS ENCOUNTER--DISREGARD - Primary documented in this encounter Additional Health Concerns Infection Onset Date Last Indicated Resolved Time C-difficile 02/26/2022 02/26/2022 03/28/2022 11:41 PM CDT Assessment Noted Time PHQ-9 Depression Total Score: 4 10/17/2021 10:05 AM CD T documented as of this encounter Care Teams Associate Financial Advisor Relationship Specialty Start Date End Date Annalisa Mark, PCP - General Nurse Practitioner 03/22/15 UMBRELLA TIPPER BELL CLEANER [address] [place], [place] [phone] Jacob Carmona Assigned OBGYN Provider 05/18/20 MD [place] [address] Leonor Burgos Assigned PCP 02/22/22 2 MD Joel [address] [place], [place] [id number] documented as of this encounter
--- OUTSIDE RECORDS SUMMARY | 2022-06-06 20:56 | XMS_ITS | Encounter Summary ---
:1985 Author Organization [place] Address [facility] [place] [address] Care Team Providers Name Role Phone Annalisa Mark APRN DRAW BENCH OPERATOR Primary Care Provider [phone] Jacob Carmona MD Unavailable [phone] Leonor Burgos MD Unavailable [phone] Encounter Details Date Type Department Care Team Description 04/07/2022 Telephone [facility] Annalisa Mark Bagdad JADEN DRAW BENCH OPERATOR [address] [phone] [place] [address] (Wo rk) Social History Tobacco Use Types Packs/Day Years [...] or relatives? How often do you attend yarsanism or Patient refused 2021 mandaen services? Do you belong to any clubs or No 10/17/2021 organizations such as yarsanism groups, unions, fraternal or athletic groups, or [...] place to sleep or slept in a half-way (including now)? Education Answer Date Recorded What is the highest level of school Bachelor's degree (e.g., BA, AB, 02/15/2019 you have completed or the highest BS) degree you have received? Sex Assigned at Date Recorded Female 03/25/2021 2:01 PM CDT documented as of this encounter Miscellaneous Notes Telephone Encounter - Iam Goldman RN - 04/07/2022 10:39 AM CDT Called patient, see note from Leonor Burgos MD Regarding e-visit. Patient agrees to virtual visit. See note concerting scheduling virtual visit. This is second e-visit in a few weeks about her stool. Patient needs an in person visit or at leasta virtual visit to understand how to manage her care. ?? Iam Goldman RN documented in this encounter Plan of Treatment Not on filedocumented as of this encounter Visit Diagnoses Not on filedocumented in this encounter Additional Health Concerns Assessment Noted Time PHQ-9 Depression Total Score: 4 10/17/2021 10:05 AM CD T documented as of this encounter Care Teams Power Systems Engineer Relationship Specialty Start Date End Date Annalisa Mark, PCP - General Nurse Practitioner 03/22/15 LOADER DRAW BENCH OPERATOR [address] [place] [address] Jacob Carmona Assigned OBGYN Provider 05/18/20 MD Antony [address] [place] [address] Leonor Burgos Assigned PCP 02/22/22 2 MD Joel [address] [place], [place] [id number] documented as of this encounter
--- OUTSIDE RECORDS SUMMARY | 2022-06-06 20:56 | XMS_ITS | Encounter Summary ---
:1985 Author Organization [place] Address [facility] [address] Care Team Providers Name Role Phone DeedeeAnnalisa dean Madonna JADEN MONTALVO Primary Care Provider [phone] Jacob Carmona MD Unavailable [phone] Leonor Burgos MD Unavailable [phone] Encounter Details Date Type Department Care Team Description 02/27/2022 Orders Only [facility] Denisa Wood C. dif ficile colitis [facility] [place] JADEN WHEEL TRUER (Primary Dx) [address] [address] [phone] Social History Tobacco Use Types Packs/Day Years [...] or relatives? How often do you attend roman catholic or Patient refused 2021 holiness services? Do you belong to any clubs or No 10/17/2021 organizations such as roman catholic groups, unions, fraternal or athletic groups, or [...] place to sleep or slept in a alf (including now)? Education Answer Date Recorded What [...] as of this encounter Visit Diagnoses Diagnosis C. difficile colitis - Primary Intestinal infection due to clostridium difficile documented in this encounter Additional Health Concerns Infection Onset Date Last Indicated Resolved Time Rule Out C-difficile 02/26/2022 02/26/2022 02/27/2022 1:52 PM CDT C-difficile 02/26/2022 02/26/2022 03/28/2022 11:41 PM CDT Assessment Noted Time PHQ-9 Depression Total Score: 4 10/17/2021 10:05 AM CD T documented as of this encounter Care Teams Collection Support Specialist Relationship Specialty Start Date End Date Annalisa Mark, PCP - General Nurse Practitioner 03/22/15 PHARMACY CARE COORDINATOR WHEEL TRUER [address] [place], [place] [phone] Jacob Carmona Assigned OBGYN Provider 05/18/20 MD Antony [address] [place] [address] Leonor Burgos Assigned PCP 02/22/22 2 MD Joel [address] [place], [place] [id number] documented as of this encounter
--- OUTSIDE RECORDS SUMMARY | 2022-06-06 20:56 | XMS_ITS | Encounter Summary ---
:1985 Author Organization [place] Address [address] [facility] [place] [address] Care Team Providers Name Role Phone DeedeeAnnalisa dean Madonna STANLEY PRODUCTION COST ESTIMATOR Primary Care Provider [phone] [place] Annalisa Peacock APRN PRODUCTION COST ESTIMATOR Unavailable [phone] Jacob Carmona MD Unavailable [phone] Reason for Visit Reason Onset Date Comments Other Entered automaticall y based on patient selection in [employer] . Erroneous encounter-disregard 12/09/2021 Encounter Details Date Type Department Care Team Description 12/07/2021 E-Visit [facility] Katia Burgos ( Entered Clinic [place] [address] [place]... [place] [address] [phone] Social History Tobacco Use Types Packs/Day Years [...] or relatives? How often do you attend taoism or Patient refused 2021 judaism services? Do you belong to any clubs or No 10/17/2021 organizations such as taoism groups, unions, fraternal or athletic groups, or [...] minutes do you engage in exercise at is 10 min 10/17/2021 level? Stress Answer [...] place to sleep or slept in a skilled nursing (including now)? Education Answer Date Recorded What is the highest level of school Bachelor's degree (e.g., BA, AB, 02/15/2019 you have completed or the highest BS) degree you have received? Sex Assigned at Date Recorded Female 03/25/2021 2:01 PM CDT COVID-19 Exposure Response Date Recorded In the last 10 days, have you been in contact with Yes 11/12/2021 12:16 PM CDT someone who was confirmed or suspected to have Coronavirus/COVID-19? documented as of this encounter Miscellaneous Notes Telephone Encounter - Leonor Burgos MD - 12/09/2021 11:32 AM CDT This encounter was opened in error. Please disregard. NWD documented in this encounter Plan of Treatment Not on filedocumented as of this encounter Visit Diagnoses Diagnosis ERRONEOUS ENCOUNTER--DISREGARD - Primary documented in this encounter Additional Health Concerns Assessment Noted Time PHQ-9 Depression Total Score: 4 10/17/2021 10:05 AM CD T documented as of this encounter Care Teams Production Line Technician Relationship Specialty Start Date End Date Annalisa Mark, PCP - General Nurse Practitioner 03/22/15 DANCE HISTORIAN PRODUCTION COST ESTIMATOR [address] [place] [address] Annalisa Mark, Assigned PCP 01/22/20 2 DANCE HISTORIAN PRODUCTION COST ESTIMATOR [address] [place] [address] Jacob Carmona Assigned OBGYN Provider 05/18/20 [place] [address] documented as of this encounter
--- OUTSIDE RECORDS SUMMARY | 2022-06-06 20:56 | XMS_ITS | Encounter Summary ---
:1985 Author Organization [facility] Address [address] [facility] [place] [address] Care Team Providers Name Role Phone Annalisa Mark JADEN MONTALVO Primary Care Provider [phone] Jacob Carmona MD Unavailable [phone] Leonor Burgos MD Unavailable [phone] Reason for Visit Reason Onset Date Comments Diarrhea Entered automaticall y based on patient selection in MyChart. Diarrhea 02/26/2022 Encounter Details Date Type Department Care Team Description 02/26/2022 E-Visit [facility] Dior Chung Dia rrhea (Entered Virtual Urgent Care JADEN DATA ANALYTICS ANALYST automatically based on [address] [address] p... [place], [place] [phone] (Wo rk) [address] [phone] Social History Tobacco Use Types Packs/Day Years [...] or relatives? How often do you attend shinto or Patient refused 2021 samaritan services? Do you belong to any clubs or No 10/17/2021 organizations such as shinto groups, unions, fraternal or athletic groups, or [...] place to sleep or slept in a prison (including now)? Education Answer Date Recorded What [...] have Coronavirus/COVID-19? documented as of this encounter Patient Instructions Patient Chrissy, Diorjose Avila APRN DATA ANALYTICS ANALYST - 02/26/2022 12:55 AM CDT Images from the original note were not included. Ben English, Yes diarrhea can be from many things, as you mentioned stress virus food medications. Given your symptoms, I would like you to do a lab-only visit to determine what is causing them. I have placed the orders. Please schedule an appointment with the lab right here in [facility], or call [phone]. I will let you know when the results are back and next steps to take. If anything changes or worsens make sure you are seen in clinic. Diarrhea with Uncertain Cause (Adult) Diarrhea is when stools are loose and watery. This can be caused by: Viral infections Bacterial infections Food poisoning Parasites Irritable bowel syndrome (IBS) Inflammatory bowel diseases such as ulcerative colitis, Crohn's disease, and celiac disease Food intolerance, such as to lactose, the sugar found in milk and milk products Reaction to medicines like antibiotics, laxatives, cancer drugs, and antacids Along with diarrhea, you may also have: Abdominal pain and cramping Nausea and vomiting Loss of bowel control Fever and chills Bloody stools In some cases, antibiotics may help to treat diarrhea. You may have a stool sample test. This is done to see what is causing your diarrhea, and if antibiotics will help treat it. The results of a stoolsample test may take up to 2 days. The healthcare provider may not give you antibiotics until he or she has the stool test results. Diarrhea can cause dehydration. This is the loss of too much water and other fluids from the body. When this occurs, body fluid must be replaced. This can be done with oral rehydration solutions. Oral rehydration solutions are available at drugstores and grocery stores without a prescription. Sports drinks are not the best choice if you are very dehydrated. They have too much sugar and not enough electrolytes. Home care Follow all instructions given by your healthcare provider. Rest at home for the next 24 hours, or until you feel better. Avoid caffeine, tobacco, and alcohol. These can make diarrhea, cramping, and pain worse. If taking medicines: Froi-fhz-wyzxfcf nausea and diarrhea medicines are generally OK unless you experience fever or bloodstool. Check with your doctor first in those circumstances. You may use acetaminophen or NSAID medicines like ibuprofen or naproxen to reduce pain and fever. Don???t use these if you have chronic liver or kidney disease, or ever had a stomach ulcer or gastrointestinal bleeding. Don't use NSAID medicines if you are already taking one for another condition (like arthritis) or are on daily aspirin therapy (such as for heart disease or after a stroke). Talk with your healthcare provider first. If antibiotics were prescribed, be sure you take them until they are finished. Don???t stop taking them even when you feel better. Antibiotics must be taken as a full course. To prevent the spread of illness: Remember that washing with soap and water and using alcohol-based hydrometeorologist is the best way to prevent the spread of infection. Dry your hands with a single use towel (like a paper towel). Clean the toilet after each use. Wash your hands before eating. Wash your hands before and after preparing food. Keep in mind that people with diarrhea or vomiting should not prepare food for others. Wash your hands after using cutting boards, countertops, and knives that have been in contact with raw foods. Wash and then peel fruits and vegetables. Keep uncooked meats away from cooked and ngnft-va-jxg foods. Use a food thermometer when cooking. Cook poultry to at least 165??F (74??C). Cook ground meat (beef, veal, pork, mane) to at least 160??F (71??C). Cook fresh beef, veal, mane, and pork to at least 145??F (63??C). Don???t eat raw or undercooked eggs (poached or rama side up), poultry, meat, or unpasteurized milkand juices. Food and drinks The main goal while treating vomiting or diarrhea is to prevent dehydration. This is done by taking small amounts of liquids often. Keep in mind that liquids are more important than food right now. Drink only small amounts of liquids at a time. Don???t force yourself to eat, especially if you are having cramping, vomiting, or diarrhea. Don???teat large amounts at a time, even if you are hungry. If you eat, avoid fatty, greasy, spicy, or fried foods. Don???t eat dairy foods or drink milk if you have diarrhea. These can make diarrhea worse. During the first 24 hours you can try: Oral rehydration solutions. Sports drinks may be used if you are not too dehydrated and are otherwise healthy. Soft drinks without caffeine Alejandra jaspreet Water (plain or flavored) Decaf tea or coffee Clear broth, consomm??, or bouillon Gelatin, popsicles, or frozen fruit juice bars The second 24 hours, if you are feeling better, you can add: Hot cereal, plain toast, bread, rolls, or crackers Plain noodles, rice, mashed potatoes, chicken noodle soup, or rice soup Unsweetened canned fruit (no pineapple) Bananas As you recover: Limit fat intake to less than 15 grams per day. Don???t eat margarine, butter, oils, mayonnaise, sauces, gravies, fried foods, peanut butter, meat, poultry, or fish. Limit fiber. Don???t eat raw or cooked vegetables, fresh fruits except bananas, or bran cereals. Limit caffeine and chocolate. Limit dairy. Don???t use spices or seasonings except salt. Go back to your normal diet over time, as you feel better and your symptoms improve. If the symptoms come back, go back to a simple diet or clear liquids. Follow-up care Follow up with your healthcare provider, or as advised. If a stool sample was taken or cultures weredone, call the healthcare provider for the results as instructed. Call 911 Call 911 if you have any of these symptoms: Trouble breathing Confusion Extreme drowsiness or trouble walking Loss of consciousness Rapid heart rate Chest pain Stiff neck Seizure When to seek medical advice Call your healthcare provider right away if any of these occur: Abdominal pain that gets worse Constant lower right abdominal pain Continued vomiting and inability to keep liquids down Diarrhea more than 5 times a day Blood in vomit or stool Dark urine or no urine for 8 hours, dry mouth and tongue, tiredness, weakness, or dizziness Drowsiness New rash You don???t get better in 2 to 3 days Fever of 100.4??F (38??C) or higher, or as directed by your healthcare provider Osvaldo robbins reviewed this educational content on 12/25/2017 ?? [id number] The [employer]. All rights reserved. This information is not intended as a substitute for professional medical care. Always follow your healthcare professional's instructions. documented in this encounter Miscellaneous Notes Telephone Encounter - Dior Chung APRN CNP - 02/26/2022 6:49 AM CDT Provider E-Visit time total (minutes): 3 documented in this encounter Plan of Treatment Not on filedocumented as of this encounter Results (ABNORMAL) Clostridium difficile Toxin B PCR (02/26/2022 3:52 PM CDT) [facility] Method Time Signature C Difficile Positive [...] - 02/27/2022 1:52 PM C DT The [employer] Xpert C. difficile Assay, pe rformed on the [employer] Systems, is a qualitative in vitro diagn ostic test for rapid detection of toxin B gene sequences from unformed (liquid or soft) stool specimens collected from patients suspected of having Clostridioides diffi cile infection (CDI). The test utilizes automated real-time polymerase chain brandt ction (PCR) to detect toxin gene sequences associated with toxin producing C. diffi cile. The Xpert C. difficile Assay is intended as an aid in the diagnosis of C DI. Dior Chung PR MANAGER DATA ANALYTICS ANALYST LAB - MICRO GENERAL ORDERAB LES Performing Organization Address City/State/ZIP Code Phon e Number [facility] [place] [address] Diag. Lab [address] [facility], [address] Enteric Bacteria and Virus Panel by AIDE Stool (02/26/2022 3:51 PM CDT) [facility] Method Time Signature Campylobacter Not Not 02/27/2022 [...] by multiplexed, qualit ative PCR using the [employer] Enteric Pathogens Nucleic Acid Test. Results serafin [...] for Shiga toxins 1 and 2. Dior Leijaleigh ann Chung PR MANAGER DATA ANALYTICS ANALYST LAB - MICRO GENERAL ORDERAB LES Performing Organization Address City/State/ZIP Code Phon e Number [facility] [place] [id number] Diag. Lab [address] [facility], [address] documented in this encounter Visit Diagnoses Diagnosis Diarrhea, unspecified type - Primary documented in this encounter Additional Health Concerns Assessment Noted Time PHQ-9 Depression Total Score: 4 10/17/2021 10:05 AM CD T documented as of this encounter Care Teams Race Relations Adviser Relationship Specialty Start Date End Date Annalisa Mark, PCP - General Nurse Practitioner 03/22/15 PR MANAGER DATA ANALYTICS ANALYST [address] [place], [place] [id number] Jacob Carmona Assigned OBGYN Provider 05/18/20 MD Antony [address] [place] [address] Leonor Burgos Assigned PCP 02/22/22 2 MD Joel [address] [place] [address] documented as of this encounter
--- OUTSIDE RECORDS SUMMARY | 2022-06-06 20:56 | XMS_ITS | Encounter Summary ---
:1985 Author Organization [facility] Address [address] [facility] [place] [address] Care Team Providers Name Role Phone Annalisa Mark JADEN MONTALVO Primary Care Provider [phone] Jacob Carmona MD Unavailable [phone] Leonor Burgos MD Unavailable [phone] Reason for Visit Reason Onset Date Comments Diarrhea Entered automaticall y based on patient selection in MyChart. Diarrhea 03/21/2022 Encounter Details Date Type Department Care Team Description 03/21/2022 E-Visit [facility] Jennifer Dumont Dia rrhea (Entered Virtual Urgent Care PA-C automatically based on [address] [place], [place] [address] [phone] Social History Tobacco Use Types Packs/Day Years [...] many times do you More than three ols es a week 10/17/2021 talk on the phone with family, friends, or neighbors? How often do you get together with friends Once a week 10/17/2021 or relatives? How often do you attend zoroastrian or Patient refused 2021 scientology services? Do you belong to any clubs or No 10/17/2021 organizations such as zoroastrian groups, unions, fraternal or athletic groups, or [...] place to sleep or slept in a usp (including now)? Education Answer Date Recorded What [...] as of this encounter Patient Instructions Patient InstructionsJennifer Dumont PA-C - 03/21/2022 3:05 PM CDT Tameka, Let's retest your stool to determine the best course of action. If you're still infected with C. diff, I recommend scheduling a virtual visit with your primary care provider to discuss recurrent infection and treatment options. Given your symptoms, I would like you to do a lab-only visit to determine what is causing them. I have placed the orders. Please schedule an appointment with the lab right here in [facility], or call [phone]. I will let you know when the results are back and next steps to take. Thank you for choosing us for your care. Idalia Dumont PA-C [facility] AttachmentsThe following attachments cannot be sent through Care Everywhere.C. Difficile, Medicine to Treat a Repeat Infection (Singaporean)documented in this encounter Miscellaneous Notes Telephone Encounter - Jennifer Dumont PA-C - 03/21/2022 4:53 PM CDT Provider E-Visit time total (minutes): 8 min documented in this encounter Plan of Treatment Scheduled Orders Name Type Priority Associated Diagnoses Order S chedule Clostridium difficile Microbiology Routine Diarrhea of presume d Expected: Toxin B PCR infectious origin 03/21/2022 (Approximate), Expires: 2021 Enteric Bacteria and Microbiology Routine Diarrhea of presumed Expected: Virus Panel by AIDE infectious origin 02/25 Stool (Approximate), Expires: 2022 Ova and Parasite Exam Microbiology Routine Diarrhea of presume d Expected: Routine infectious origin 03/21/2022 (Approximate), Expires: 2022 documented as of this encounter Visit Diagnoses Diagnosis Diarrhea of presumed infectious origin - Primary documented in this encounter Additional Health Concerns Infection Onset Date Last Indicated Resolved Time C-difficile 02/26/2022 02/26/2022 03/28/2022 11:41 PM CDT Assessment Noted Time PHQ-9 Depression Total Score: 4 10/17/2021 10:05 AM CD T documented as of this encounter Care Teams Commercial Assistant Relationship Specialty Start Date End Date Annalisa Mark, PCP - General Nurse Practitioner 03/22/15 [employer] [address] [place], [place] [id number] Jacob Carmona Assigned OBGYN Provider 05/18/20 MD Antony [address] [place] [address] Leonor Burgos Assigned PCP 02/22/22 2 MD Joel [address] [place] [address] documented as of this encounter
--- OUTSIDE RECORDS SUMMARY | 2022-06-06 20:56 | XMS_ITS | Encounter Summary ---
:1985 Author Organization [place] Address [address] [place] [address] Care Team Providers Name Role Phone Deedee Annalisa Peacock APRN SCIENTIFIC SOFTWARE ENGINEER Primary Care Provider [phone] Annalisa Mark APRN SCIENTIFIC SOFTWARE ENGINEER Unavailable [phone] Jacob Carmona MD Unavailable [phone] Reason for Visit Reason Comments Physical Encounter Details Date Type Department Care Team Description 01/16/2022 Office Visit [facility] Jacob Carmona for gynecological examination without abnormal finding (Primary Dx); Clinic [place] Hardy MD OCP (oral contraceptive pills) initiatio n [address] [address] [address] [place] [address] Social History Tobacco Use Types Packs/Day Years [...] or relatives? How often do you attend mormon or Patient refused 2021 christian services? Do you belong to any clubs or No 10/17/2021 organizations such as mormon groups, unions, fraternal or athletic groups, or [...] place to sleep or slept in a long-term (including now)? Education Answer Date Recorded What [...] Sign Reading Time Taken Comments Blood Pressure 106/64 01/16/2022 8:24 AM CDT Pulse - - Temperature - - Respiratory Rate - - Oxygen Saturation - - Inhaled Oxygen Concentration - - Weight 51 kg (112 lb 8 oz) 01/16/2022 8:24 AM CDT Height - - Body Mass Index 19.93 10/17/2021 9:19 AM CDT documented in this encounter Progress Notes Jacob Carmona MD - 01/16/2022 8:15 AM CDT SUBJECTIVE: Tameka is a 36 year old female who presents for annual exam. She has concerns regarding breast lumps. She desires routine labs as she was unable to get an appointment with her primary care provider. No LMP recorded.. Menses are regular q 28-30 days and normal lasting 4 days. Occ midcycle spotting. Using oral contraceptives for contraception. She is not currently considering . Besides routine health maintenance, she would like to discuss breast lumps. GYNECOLOGIC HISTORY: Tameka is sexually active with 1 male partner and is currently in a monogamous relationship. History sexually transmitted infections:No STD history History of abnormal Pap smear: Yes. S/P LEEP 2008. Last Pap/HPV 09/2020 WNL with neg HPV Family history of breast CA: No. 1 Paternal Aunt Family history of uterine/ovarian CA: No Family history of colon CA: No HISTORY: OB History Para Term AB Living 3 2 2 0 1 2 SAB IAB Ectopic Multiple Live Births 1 0 0 0 2 # Outcome Date GA Lbr Chema/2nd Weight Sex Delivery Anes PTL Lv 3 Term 09/19/19 40w3d 03:36 / 00:45 3.35 kg (7 lb 6.2 oz) F Vag-Spont EPI N RICKEY Name: Shubham Apgar1: 8 Apgar5: 8 2 Term 11/16/16 41w0d 09:00 / 02:59 4.15 kg (9 lb 2.4 oz) M Vag-Forceps IV, EPI N RCIKEY Complications: Prolonged PROM (>18 hours) Name: Charan Apgar1: 8 Apgar5: 9 1 SAB 10/2015 6w0d Past Medical History: Diagnosis Date ??? Allergic [...] ??? Wounds and injuries fall in 09/03/16 Past Surgical History: Procedure Laterality Date ??? BREAST SURGERY 20 years ago? Cyst removal ??? COLPOSCOPY CERVIX, LOOP ELECTRODE BIOPSY, COMBINED 04/24/09 PEDRO I & II ??? CRYOTHERAPY 04/04/08, 12/14/08 ??? ZZC NONSPECIFIC PROCEDURE rt brest biopsy,benign Family History Problem Relation Age of Onset [...] ??? Genetic Disorder Other Son has CF Social History Socioeconomic History ??? Marital status: Single Spouse name: Oren ??? Number of children: 2 ??? Highest education level: Bachelor's degree (e.g., BA, AB, BS) Occupational History ??? 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 Smoking status: Never Smoker ??? Smokeless tobacco: Never Used Vaping Use ??? Vaping Use: Never used Substance and Sexual Activity ??? Alcohol use: Not Currently Alcohol/week: 0.0 standard drinks Comment: Occaisional ??? Drug use: No ??? Sexual activity: Yes Partners: Male control/protection: Pill Other Topics Concern ??? Parent/sibling w/ CABG, SC or angioplasty before 65F 55M? No Social Determinants of Health Financial Resource Strain: Low Risk ??? Difficulty of Paying Living Expenses: Not hard at all Food Insecurity: No Food Insecurity ??? Worried About Running Out of Food in the Last Year: Never true ??? Ran Out of Food in the Last Year: Never true Transportation Needs: No Transportation Needs ??? Lack of Transportation (Medical): No ??? Lack of Transportation (Non-Medical): No Physical Activity: Insufficiently Active ??? Days of Exercise per Week: 6 days ??? Minutes of Exercise per Session: 10 min Stress: Stress Concern Present ??? Feeling of Stress : To some extent Social Connections: Unknown ??? Frequency of Communication with Friends and Family: More than three times a week ??? Frequency of Social Gatherings with Friends and Family: Once a week ??? Attends Hoahaoism Services: Patient refused ??? Active Member of Clubs or Organizations: No ??? Marital Status: Never Housing Stability: Low Risk ??? Unable to Pay for Housing in the Last Year: No ??? Number of Places Lived in the Last Year: 1 ??? Unstable Housing in the Last Year: No Current Outpatient Medications: ??? ciprofloxacin-dexamethasone (CIPRODEX) 0.3-0.1 % otic suspension, Place 4 drops into the right ear 2 times daily, Disp: 7.5 mL, Rfl: 0 ??? citalopram (CELEXA) 10 MG tablet, Take 1 tablet (10 mg) by mouth daily, Disp: 90 tablet, Rfl: 1 ??? hydrocortisone (CORTAID) 1 % external cream, Apply topically 2 times daily, Disp: , Rfl: ??? lidocaine, viscous, (XYLOCAINE) 2 % solution, Swish and spit 15 mLs in mouth every 4 hours as needed for pain ; Max 8 doses/24 hour period., Disp: 200 mL, Rfl: 1 ??? norgestim-eth estrad triphasic (ORTHO TRI-CYCLEN) 0.18/0.215/0.25 MG-35 MCG tablet, Take 1 tablet by mouth daily, Disp: 84 tablet, Rfl: 0 No Known Allergies Past medical, surgical, social and family history were reviewed and updated in [facility]. ROS: 12 point review of systems negative other than symptoms noted below. OBJECTIVE: EXAM: There were no vitals taken for this visit. BMI: There is no height or weight on file to calculate BMI. General: Alert and oriented, no distress. Psychiatric: Mood and affect within normal limits. Skin: Warm and dry, no lesions, rashes or discolorations. Neck: Neck supple. Thyroid palpbably normal in size and without nodularity. Cardiovascular: Regular rate and rhythm, no murmurs, rubs or gallops. Lungs: Clear to auscultation bilaterally, breathing is unlabored. Breasts: Symmetric, no skin changes. No dominant masses bilaterally. Fibrocystic changes w/o discrete mass Lymph: No cervical, supraclavicular, infraclavicular, axillary or inguinal lymphadenopathy palpable. Abdomen: Soft, nontender, no hepatosplenomegaly, no rebound or guarding, no masses, no hernias. Vulva: No external lesions, normal female hair distribution, no inguinal adenopathy. Urethra: Midline, non-tender, well supported, no discharge Vagina: Well-estrogenized, no abnormal discharge, no lesions Cervix: no lesions, no discharge and multiparous Uterus: anteverted, smooth contour, without enlargement, mobile, and without tenderness Ovaries: No masses appreciated, non-tender, mobile Rectal Exam: deferred Musculoskeletal: extremities normal COUNSELING: Reviewed preventive health counseling, as reflected in patient instructions Contraception Osteoporosis prevention/bone health reports that she has never smoked. She has never used smokeless tobacco. ASSESSMENT/PLAN: 36 year old female with satisfactory annual exam (Z01.419) Encounter for gynecological examination without abnormal finding (primary encounter diagnosis) Comment: Normal Gyne exam Plan: CBC with platelets, Lipid panel reflex to direct LDL Fasting, TSH with free T4 reflex, Comprehensive metabolic panel (BMP + Alb, Alk Phos, ALT, AST, Total. Bili, TP), Hemoglobin A1c, Vitamin D Deficiency (Z30.011) OCP (oral contraceptive pills) initiation Comment: Plan: CBC with platelets, Lipid panel reflex to direct LDL Fasting, TSH with free T4 reflex, Comprehensive metabolic panel (BMP + Alb, Alk Phos, ALT, AST, Total. Bili, TP), Hemoglobin A1c, Vitamin D Deficiency Hx of LEEP 2008 with neg screening since. Last Pap/HPV 09/2020 WNL w/ neg HPV Axel Carmona MD documented in this encounter Nursing Notes Kerri Roa CMA - 01/16/2022 8:15 AM CDT Chief Complaint Patient presents with ??? Physical fasting initial BP 106/64 Wt 51 kg (112 lb 8 oz) LMP 01/01/2022 (Approximate) BMI 19.93 kg/m?? Estimated body mass index is 19.93 kg/m?? as calculated from the following: Height as of 10/17/21: 1.6 m (5' 3). Weight as of this encounter: 51 kg (112 lb 8 oz). BP completed using cuff size regular. Kerri Roa CMA documented in this encounter Plan of Treatment Not on filedocumented as of this encounter Procedures Procedure Name Priority Date/Time Associated Diagnosis Comme nts VITAMIN D DEFICIENCY Routine 01/16/2022 8:54 Encounter for Res ults for this SCREENING AM CDT gynecological procedure are in examination without the resu lts abnormal finding section. OCP (oral contraceptive pills) initiation TSH WITH FREE T4 Routine 01/16/2022 8:54 Encounter for Results for this REFLEX AM CDT gynecological procedure are in examination without the resu lts abnormal finding section. OCP (oral contraceptive pills) initiation LIPID REFLEX TO Routine 01/16/2022 8:54 Encounter for Results for this DIRECT LDL PANEL AM CDT gynecological procedure are in examination without the resu lts abnormal finding section. OCP (oral contraceptive pills) initiation HEMOGLOBIN A1C Routine 01/16/2022 8:54 Encounter for Results f or this AM CDT gynecological procedure are in examination without the resu lts abnormal finding section. OCP (oral contraceptive pills) initiation COMPREHENSIVE Routine 01/16/2022 8:54 Encounter for Results fo r this METABOLIC PANEL AM CDT gynecological procedure a re in examination without the resu lts abnormal finding section. OCP (oral contraceptive pills) initiation CBC WITH PLATELETS Routine 01/16/2022 8:54 Encounter for Resul ts for this AM CDT gynecological procedure are in examination without the resu lts abnormal finding section. OCP (oral contraceptive pills) initiation documented in this encounter Results Vitamin D Deficiency (01/16/2022 8:54 AM CDT) athologist Signature Vitamin D, 56 20 - 75 01/16/2022 [facility] Total ug/L 5:41 PM CDT CORE/PROT/ENDO (25-Hydroxy) Specimen Anatomical Collection Method / Collection Time Recei zahira Time (Source) Location / Volume Laterality Blood STRUCTURE OF RIGHT Venipuncture / 01/16/2022 8:54 12/26 8:54 UPPER LIMB / Unknown AM CDT AM CDT Unknown Narrative [facility] CORE/PROT/ENDO - 01/16/2022 5:41 PM CDT Season, race, dietary intake, and treatment affect the concentration of 34-thmxrds-Oxggnme D. Values may decrease during winter months and in crease during summer months. Values 20- 29 ug/L may indicate Vitamin D insufficiency and values <20 ug/L may indicate Vitamin D deficiency. Vitamin D determination is routinely per formed by an immunoassay specific for 25 hydroxyvitamin D3. ??If an individual is on vitamin D2(ergocalciferol) supplementation, please specify 25 OH vitamin D2 and D3 level determination by LCMSMS test [id number]. Jacob Carmona MD LAB - BLOOD ORDERABLES Performing Organization Address City/State/ZIP Code Phon e Number [facility] CORE/PROT/ENDO [facility] [place] [address] Core/Prot/Endo [address] [facility] [address], Room 3[address]580 Hemoglobin A1c (01/16/2022 8:54 AM CDT) athologist Signature Hemoglobin A1C 5.1 0.0 - 5.6 01/16/2022 [facility] % 9:30 AM CDT Comment: Normal <5.7% Prediabetes 5.7-6.4% ?? Diabetes 6.5% or higher Note: Adopted from ADA consensus guideli norberto. Specimen Anatomical Collection Method / Collection Time Recei zahira Time (Source) Location / Volume Laterality Blood STRUCTURE OF RIGHT Venipuncture / 01/16/2022 8:54 /09/2021 8:54 UPPER LIMB / Unknown AM CDT AM CDT Unknown Jacob Carmona MD LAB - BLOOD ORDERABLES Performing Organization Address City/State/ZIP Code Phon e Number [facility] [place] [address] [address] [place] [address], [facility] [place] [facility] [address] Comprehensive metabolic panel (BMP + Alb, Alk Phos, ALT, AST, Total. Bili, TP) (01/16/2022 8:54 AM CDT) athologist Signature Sodium 136 133 - 144 01/16/2022 [facility] mmol/L 2:50 PM CDT Potassium 4.1 3.4 - 5.3 01/16/2022 [facility] mmol/L 2:50 PM CDT Chloride 105 94 - 109 01/16/2022 [facility] mmol/L 2:50 PM CDT Carbon Dioxide 26 20 - 32 01/16/2022 [facility] (CO2) mmol/L 2:50 PM CDT Anion Gap 5 3 - 14 01/16/2022 [facility] mmol/L 2:50 PM CDT Urea Nitrogen 17 7 - 30 01/16/2022 [facility] mg/dL 2:50 PM CDT Creatinine 0.72 0.52 - 01/16/2022 [facility] 1.04 mg/dL 2:50 PM CDT Calcium 8.8 8.5 - 10.1 01/16/2022 [facility] mg/dL 2:50 PM CDT Glucose 84 70 - 99 01/16/2022 [facility] mg/dL 2:50 PM CDT Alkaline 63 40 - 150 01/16/2022 [facility] Phosphatase U/L 2:50 PM CDT AST 21 0 - 45 U/L 01/16/2022 [facility] 2:50 PM CDT ALT 37 0 - 50 U/L 01/16/2022 [facility] 2:50 PM CDT Protein Total 7.5 6.8 - 8.8 01/16/2022 [facility] g/dL 2:50 PM CDT Albumin 4.0 3.4 - 5.0 01/16/2022 [facility] g/dL 2:50 PM CDT Bilirubin Total 0.3 0.2 - 1.3 01/16/2022 [facility] mg/dL 2:50 PM CDT GFR Estimate >90 >60 01/16/2022 [facility] mL/min/1.7 2:50 PM CDT 3m2 Comment: Effective July 16, 2021 eGF Rcr in adults is calculated using the 2020 CKD-EPI creatinine equation which includ es age and gender (Soco et al., NEJ, DOI: 10.1056/ROIGyd9149380) Specimen Anatomical Collection Method / Collection Time Recei zahira Time (Source) Location / Volume Laterality Blood STRUCTURE OF RIGHT Venipuncture / 01/16/2022 8:54 /2 09/2021 8:54 UPPER LIMB / Unknown AM CDT AM CDT Unknown Jacob Carmona MD LAB - BLOOD ORDERABLES Performing Organization Address City/State/ZIP Code Phon e Number [facility] [place], [place] [phone] [place] [facility] [address] [place] [address] Lab (no room number, 1st floor of clinic) [facility] [place], [place] [phone] [facility] [place] [address] [[email or web address]] [facility] [address] Lab (no room number, 1st floor of clinic) TSH with free T4 reflex (01/16/2022 8:54 AM CDT) P athologist Signature TSH 3.16 0.40 - 4.00 01/16/2022 [facility] mU/L 2:58 PM CDT Specimen Anatomical Collection Method / Collection Time Recei zahira Time (Source) Location / Volume Laterality Blood STRUCTURE OF RIGHT Venipuncture / 01/16/2022 8:54 12/26 8:54 UPPER LIMB / Unknown AM CDT AM CDT Unknown Jacob Carmona MD LAB - BLOOD ORDERABLES Performing Organization Address City/State/ZIP Code Phon e Number [facility] [place], [place] [phone] [place] [facility] [address] [place] [address] Lab (no room number, 1st floor of clinic) [facility] [place], [place] [phone] [facility] [place] [phone] [[email or web address]] [facility] [address] Lab (no room number, 1st floor of clinic) (ABNORMAL) Lipid panel reflex to direct LDL Fasting (01/16/2022 8:54 AM CDT) [facility] gist Method Time Signature Cholesterol 208 (H) <200 01/16/2022 [facility] mg/dL 2:50 PM CDT Triglycerides 125 <150 01/16/2022 [facility] mg/dL 2:50 PM CDT Direct Measure 75 >=50 01/16/2022 [facility] HDL mg/dL 2:50 PM CDT LDL Cholesterol 108 (H) <=100 01/16/2022 [facility] Calculated mg/dL 2:50 PM CDT Non HDL 133 (H) <130 01/16/2022 [facility] Cholesterol mg/dL 2:50 PM CDT Patient Fasting > Yes 01/16/2022 [facility] RY 8hrs? 2:50 PM CDT Specimen Anatomical Collection Method / Collection Time Recei zahira Time (Source) Location / Volume Laterality Blood STRUCTURE OF RIGHT Venipuncture / 01/16/2022 8:54 12/26 8:54 UPPER LIMB / Unknown AM CDT AM CDT Unknown Narrative [facility] - 01/16/2022 2:50 PM CDT Cholesterol Desirable: ??<200 mg/dL Triglycerides Normal: ??Less than 150 mg/dL Borderline High: ??150-199 mg/dL High: ??200-499 mg/dL Very High: ??Greater than or equal to 50 0 mg/dL Direct Measure HDL Female: ??Greater than or equal to 50 mg /dL Male: ??Greater than or equal to 40 mg/d L LDL Cholesterol Desirable: ??<100mg/dL Above Desirable: ??100-129 mg/dL Borderline High: ??130-159 mg/dL High: ??160-189 mg/dL Very High: ??>= 190 mg/dL Non HDL Cholesterol Desirable: ??130 mg/dL Above Desirable: ??130-159 mg/dL Borderline High: ??160-189 mg/dL High: ??190-219 mg/dL Very High: ??Greater than or equal to 22 0 mg/dL Jacob Carmona MD LAB - BLOOD ORDERABLES Performing Organization Address City/State/ZIP Code Phon e Number [facility] [place], [place] [phone] [facility] [address] [place] [address] Lab (no room number, 1st floor of clinic) [facility] [place], [place] [phone] [facility] [place] [phone] [[email or web address]] [place] [facility] [address] Lab (no room number, 1st floor of clinic) CBC with platelets (01/16/2022 8:54 AM CDT) athologist Signature WBC Count 9.1 4.0 - 11.0 01/16/2022 [facility] 10e3/uL 8:57 AM CDT RBC Count 4.36 3.80 - 01/16/2022 [facility] 5.20 8:57 AM CDT 10e6/uL Hemoglobin 13.9 11.7 - 01/16/2022 [facility] 15.7 g/dL 8:57 AM CDT Hematocrit 41.9 35.0 - 01/16/2022 [facility] 47.0 % 8:57 AM CDT MCV 96 78 - 100 01/16/2022 [facility] fL 8:57 AM CDT MCH 31.9 26.5 - 01/16/2022 [facility] 33.0 pg 8:57 AM CDT MCHC 33.2 31.5 - 01/16/2022 [facility] 36.5 g/dL 8:57 AM CDT RDW 11.9 10.0 - 01/16/2022 [facility] 15.0 % 8:57 AM CDT Platelet Count 203 150 - 450 01/16/2022 [facility] 10e3/uL 8:57 AM CDT Specimen Anatomical Collection Method / Collection Time Recei zahira Time (Source) Location / Volume Laterality Blood STRUCTURE OF RIGHT Venipuncture / 01/16/2022 8:54 12/26 8:54 UPPER LIMB / Unknown AM CDT AM CDT Unknown Jacob Carmona MD LAB - BLOOD ORDERABLES Performing Organization Address City/State/ZIP Code Phon e Number [facility] [place] [phone] [address] [place] [address], [facility] [place] [facility] [address] documented in this encounter Visit Diagnoses Diagnosis Encounter for gynecological examination without abnormal finding - Primary Routine gynecological examination OCP (oral contraceptive pills) initiatio n General counseling for prescription of o ral contraceptives documented in this encounter Additional Health Concerns Assessment Noted Time PHQ-9 Depression Total Score: 4 10/17/2021 10:05 AM CD T documented as of this encounter Care Teams Director Content Marketing Relationship Specialty Start Date End Date Annalisa Mark, PCP - General Nurse Practitioner 03/22/15 [facility] SPECIAL[facility] SCIENTIFIC SOFTWARE ENGINEER [address] [place] [address] Annalisa Mark, Assigned PCP 01/22/20 2 AUTH SPECIALIST SCIENTIFIC SOFTWARE ENGINEER [address] [place] [address] Jacob Carmona Assigned OBGYN Provider 05/18/20 MD Antony [address] [place] [address] documented as of this encounter
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
--- OUTSIDE RECORDS SUMMARY | 2022-06-06 20:56 | XMS_ITS | Encounter Summary ---
:1985 Author Organization [place] Address [address] [facility] [place] [address] Care Team Providers Name Role Phone Annalisa Mark APRN, CNP Primary Care Provider [phone] Jacob Carmona MD Unavailable [phone] Annalisa Mark APRN, CNP Unavailable [phone] Reason for Visit Reason Comments Abnormal Uterine Bleeding Encounter Details Date Type Department Care Team Description 05/22/2022 Office Visit [facility] Jacob Carmona [facility]enses [facility] Deborah Hardy MD (Primary Dx) [address] [place] [address] [address] [place] [address] [phone] Social History Tobacco Use Types Packs/Day Years [...] or relatives? How often do you attend mu-ism or Patient refused 2021 mosque services? Do you belong to any clubs or No 10/17/2021 organizations such as mu-ism groups, unions, fraternal or athletic groups, or [...] place to sleep or slept in a long term (including now)? Education Answer Date Recorded What [...] Pressure 104/66 05/22/2022 10:15 AM CDT Pulse - - Temperature - - Respiratory Rate - - Oxygen Saturation - - Inhaled Oxygen Concentration - - Weight 51.4 kg (113 lb 4.8 oz) 05/22/2022 10:15 AM CDT Height - - Body Mass Index 20.07 02/20/2022 12:53 PM CDT documented in this encounter Progress Notes Jacob Carmona MD - 05/22/2022 10:00 AM CDT Chief Complaint Patient presents with ??? Abnormal Uterine Bleeding Subjective: 37yo P2 on OCPs presents for evaluation of atypical bleeding despite compliance with OCP regimen. Bleeding began earlier than expected and has continued. She is now on placebo pills so menses expected. Advised to come in r/o any non endometrial source REVIEW OF SYSTEMS: General: negative Health Maintenance Topic Date Due ??? COVID-19 Vaccine (1) Never done ??? INFLUENZA VACCINE (1) 03/27/2022 ??? PHQ-9 10/06/2022 ??? YEARLY PREVENTIVE VISIT 01/16/2023 ??? PAP FOLLOW-UP 10/24/2023 ??? HPV FOLLOW-UP 10/24/2023 ??? ADVANCE CARE PLANNING 11/13/2025 ??? DTAP/TDAP/TD IMMUNIZATION (10 - Td or Tdap) 07/29/2029 ??? HEPATITIS C SCREENING Completed ??? HIV SCREENING Completed ??? PHQ-2 (once per calendar year) Completed ??? IPV IMMUNIZATION Completed ??? HEPATITIS B IMMUNIZATION Completed ??? Pneumococcal Vaccine: Pediatrics (0 to 5 Years) and At-Risk Patients (6 to 64 Years) Aged Out ??? MENINGITIS IMMUNIZATION Aged Out ??? PAP Discontinued No Known Allergies Objective: Vitals: BP 104/66 Wt 51.4 kg (113 lb 4.8 oz) LMP 05/17/2022 BMI 20.07 kg/m?? BMI= Body mass index is 20.07 kg/m??. EGBUS normal Vagina w/o lesions, menstrual blood in vault Cervix multip w/o lesions Uterus midline firm mobile NT Assessment/Plan: 1. Irregular menses Uncertain etiology No evidence for cervical/vaginal source Continue daily OCP use as directed. If bleeding doesn't slow within next few days will order U/S to rule out endometrial pathology Axel Carmona MD documented in this encounter Plan of Treatment Not on filedocumented as of this encounter Visit Diagnoses Diagnosis Irregular menses - Primary Irregular menstrual cycle documented in this encounter Additional Health Concerns Assessment Noted Time PHQ-9 Depression Total Score: 1 04/08/2022 4:38 PM CDT documented as of this encounter Care Teams Rn Visiting Relationship Specialty Start Date End Date Annalisa Mark, PCP - General Nurse Practitioner 03/22/15 SHIFT STACKER BILL POSTER INSTALLER [address] [place] [address] Jacob Carmona Assigned OBGYN Provider 05/18/20 MD Anton[address] [facility] [place] [address] Annalisa Mark, Assigned PCP 05/17/22 SHIFT STACKER BILL POSTER INSTALLER [address] [place], [place] [id number] documented as of this encounter
--- OUTSIDE RECORDS SUMMARY | 2022-06-06 20:56 | XMS_ITS | Encounter Summary ---
:1985 Author Organization [place] Address [facility] [place] [address] Care Team Providers Name Role Phone Deedee, Annalisa Peacock APRN ENVIRONMENTAL MONITORING TECHNICIAN Primary Care Provider [phone] Annalisa Mark APRN ENVIRONMENTAL MONITORING TECHNICIAN Unavailable [phone] Jacob Carmona MD Unavailable [phone] Reason for Visit Reason Onset Date Comments Refill Request 12/07/2021 Encounter Details Date Type Department Care Team Description 12/07/2021 [facility] Jaron Carmona, Refill Request Deborah ROLLINS [address] [place] [address] [address] [place] [address] [phone] Social History Tobacco Use Types Packs/Day Years [...] or relatives? How often do you attend pentecostalism or Patient refused 2021 catholic services? Do you belong to any clubs or No 10/17/2021 organizations such as pentecostalism groups, unions, fraternal or athletic groups, or [...] place to sleep or slept in a halfway (including now)? Education Answer Date Recorded What [...] this encounter Miscellaneous Notes Telephone Encounter - Pamella Chapman RN - 12/09/2021 10:05 AM CDT appt scheduled. rx approved. Pamella Miller RN Telephone Encounter - Pamella Chapman RN - 12/09/2021 8:46 AM CDT Pt is overdue for her annual exam. Pt has already been given a courtesy refill. My chart message sent to the pt. Pamella Miller RN documented in this encounter Plan of Treatment Not on filedocumented as of this encounter Visit Diagnoses Diagnosis OCP (oral contraceptive pills) initiatio n General counseling for prescription of o ral contraceptives documented in this encounter Additional Health Concerns Assessment Noted Time PHQ-9 Depression Total Score: 4 10/17/2021 10:05 AM CD T documented as of this encounter Care Teams Rebrander Relationship Specialty Start Date End Date Annalisa Mark, PCP - General Nurse Practitioner 03/22/15 PREPARATION CENTER COORDINATOR ENVIRONMENTAL MONITORING TECHNICIAN [address] [place] [address] Annalisa Mark, Assigned PCP 01/22/20 2 PREPARATION CENTER COORDINATOR ENVIRONMENTAL MONITORING TECHNICIAN [address] [place] [address] Jacob Carmona Assigned OBGYN Provider 05/18/20 MD Antony [address] [place] [address] documented as of this encounter
--- OUTSIDE RECORDS SUMMARY | 2022-06-06 20:56 | XMS_ITS | Encounter Summary ---
:1985 Author Organization [place] Address [address] [place], [place] [address]. [place] [address] Care Team Providers Name Role Phone Annalisa Mark APRN FOREPART ROUNDER Primary Care Provider [phone] Jacob Carmona MD Unavailable [phone] Annalisa Mark APRN, CNP Unavailable [phone] Encounter Details Date Type Department Care Team Description 05/22/2022 Travel Social History Tobacco Use Types Packs/Day [...] or relatives? How often do you attend christianity or Patient refused 2021 quaker services? Do you belong to any clubs or No 10/17/2021 organizations such as christianity groups, unions, fraternal or athletic groups, or [...] place to sleep or slept in a retirement (including now)? Education Answer Date Recorded What [...] documented as of this encounter Care Teams Customer Solutions Representative Relationship Specialty Start Date End Date Annalisa Mark, PCP - General Nurse Practitioner 03/22/15 STAGE PRODUCER FOREPART ROUNDER [address] [place], [place] [phone] Jacob Carmona Assigned OBGYN Provider 05/18/20 MD Antony [address] [place], [place] [address] Annalisa Mark, Assigned PCP 05/17/22 STAGE PRODUCER FOREPART ROUNDER [address] [place] [address] documented as of this encounter
--- OUTSIDE RECORDS SUMMARY | 2022-06-06 20:56 | XMS_ITS | Encounter Summary ---
:1985 Author Organization [place] Address [facility] [place] [address] Care Team Providers Name Role Phone Deedee, Annalisa Peacock APRN, CNP Primary Care Provider [phone] Jacob Carmona MD Unavailable [phone] Leonor Burgos MD Unavailable [phone] Reason for Visit Reason Onset Date Comments Results 02/27/2022 Encounter Details Date Type Department Care Team Description 02/27/2022 Telephone [facility] Annalisa Mark, Results [place] [facility] [phone] [place] [address] (Wo rk) Social History Tobacco [...] or relatives? How often do you attend hinduism or Patient refused 2021 worship services? Do you belong to any clubs or No 10/17/2021 organizations such as hinduism groups, unions, fraternal or athletic groups, or [...] place to sleep or slept in a chcf (including now)? Education Answer Date Recorded What [...] encounter Miscellaneous Notes Telephone Encounter - Jennifer Curran MD - 02/27/2022 6:08 PM CDT Her diarrhea is positive for c.diff- Likely associated with recent treatment with clindamycin. Have sent a prescription for vancomycin 125 mg qid x [address] in [place] Called the patient phone and left a message to call back to the clinic line Jennifer Curran MD Telephone Encounter - Jennifer Chavez RN - 02/27/2022 3:49 PM CDT Pt calling concerned about her test results that were positive for C. dificile. Pt saw results and would like someone to get back to her regarding what this means and next steps. Routing to urgent care. Jennifer Chavez RN documented in this encounter Plan of Treatment Not on filedocumented as of this encounter Visit Diagnoses Diagnosis C. difficile colitis - Primary Intestinal infection due to clostridium difficile documented in this encounter Additional Health Concerns Infection Onset Date Last Indicated Resolved Time Rule Out C-difficile 02/26/2022 02/26/2022 02/27/2022 1:52 PM CDT C-difficile 02/26/2022 02/26/202203/28/2022 11:41 PM CDT Assessment Noted Time PHQ-9 Depression Total Score: 4 10/17/2021 10:05 AM CD T documented as of this encounter Care Teams Implementation Lead Relationship Specialty Start Date End Date Annalisa Mark, PCP - General Nurse Practitioner 03/22/15 ADMISSIONS DEAN SATELLITE TELEVISION INSTALLER [address] [place] [address] Jacob Carmona Assigned OBGYN Provider 05/18/20 MD Antony [address] [place] [address] Leonor Burgos Assigned PCP 02/22/22 2 MD Joel [address] [place] [address] documented as of this encounter
--- OUTSIDE RECORDS SUMMARY | 2022-06-06 20:56 | XMS_ITS | Encounter Summary ---
:1985 Author Organization [place] Address [address] [place], [place] [address]. [place] [address] Care Team Providers Name Role Phone DeedeeAnnalisa dean Madonna STANLEY CNP Primary Care Provider [phone] Jacob Carmona MD Unavailable [phone] Leonor Burgos MD Unavailable [phone] Encounter Details Date Type Department Care Team Description 02/26/2022 Travel Social History Tobacco Use Types Packs/Day [...] or relatives? How often do you attend congregation or Patient refused 2021 restoration services? Do you belong to any clubs or No 10/17/2021 organizations such as congregation groups, unions, fraternal or athletic groups, or [...] filedocumented in this encounter Additional Health Concerns Infection Onset Date Last Indicated Resolved Time Rule Out C-difficile 02/26/2022 02/26/2022 02/27/2022 1:52 PM CDT Assessment Noted Time PHQ-9 Depression Total Score: 4 10/17/2021 10:05 AM CD T documented as of this encounter Care Teams Belt Lacer Relationship Specialty Start Date End Date Annalisa Mark, PCP - General Nurse Practitioner 03/22/15 DEALER SUPPORT TECHNICIAN GENERAL PRODUCTION WORKER [address] [place], [place] [phone] Jacob Carmona Assigned OBGYN Provider 05/18/20 MD Antony [address] [place] [address] Leonor Burgos Assigned PCP 02/22/22 2 MD Joel [address] [place], [place] [phone] documented as of this encounter
--- OUTSIDE RECORDS SUMMARY | 2022-06-06 20:56 | XMS_ITS | Encounter Summary ---
:1985 Author Organization [place] Address [address] [facility] [place] [address] Care Team Providers Name Role Phone Annalisa Mark Madonna JADEN SEWAGE DISPOSAL WORKER Primary Care Provider [phone] Jacob Carmona MD Unavailable [phone] Leonor Burgos MD Unavailable [phone] Reason for Visit Reason Comments Other Entered automatically based on patient selection in [employer]. Encounter Details Date Type Department Care Team Description 04/05/2022 E-Visit [facility] Katia Burgos ( Entered Clinic [place] [id number] [facility] [id number] [place] [address] tammy... [place] [address] [phone] Social History Tobacco Use Types Packs/Day Years [...] or relatives? How often do you attend zoroastrianism or Patient refused 2021 rastafari services? Do you belong to any clubs or No 10/17/2021 organizations such as zoroastrianism groups, unions, fraternal or athletic groups, or [...] place to sleep or slept in a care home (including now)? Education Answer Date Recorded What is the highest level of school Bachelor's degree (e.g., BA, AB, 02/15/2019 you have completed or the highest BS) degree you have received? Sex Assigned at Date Recorded Female 03/25/2021 2:01 PM CDT documented as of this encounter Miscellaneous Notes Telephone Encounter - Leonor Burgos MD - 04/07/2022 11:02 AM CDT Advise virtual or inperson visit NWD Telephone Encounter - Leonor Burgos MD - 04/05/2022 6:00 PM CDT This is second e-visit in a few weeks about her stool. Patient needs an in person visit or at least a virtual visit to understand how to manage her care. NWD documented in this encounter Plan of Treatment Not on filedocumented as of this encounter Visit Diagnoses Diagnosis Change in stool - Primary Nonspecific abnormal finding in stool co ntents documented in this encounter Additional Health Concerns Assessment Noted Time PHQ-9 Depression Total Score: 4 10/17/2021 10:05 AM CD T documented as of this encounter Care Teams Diagnostic Radiologic Technologist Relationship Specialty Start Date End Date Annalisa Mark, PCP - General Nurse Practitioner 03/22/15 PAINTING AND COATING WORKER SEWAGE DISPOSAL WORKER [address] [place], [place] [phone] Jacob Carmona Assigned OBGYN Provider 05/18/20 [place] [address] Leonor Burgos Assigned PCP 02/22/22 2 MD Joel [address] [place], [place] [phone] documented as of this encounter
--- OUTSIDE RECORDS SUMMARY | 2022-06-06 20:56 | XMS_ITS | Encounter Summary ---
:1985 Author Organization [place] Address [address] [facility] [place] [address] Care Team Providers Name Role Phone Annalisa Mark APRN SUPERVISOR ENDLESS TRACK VEHICLE Primary Care Provider [phone] Jacob Carmona MD Unavailable [phone] Annalisa Mark APRN, CNP Unavailable [phone] Reason for Visit Reason Comments Other Entered automatically based on patient selection in [email or web address]. Encounter Details Date Type Department Care Team Description 06/06/2022 E-Visit [facility] Katia Burgos ( Entered Clinic [place] [id number] [facility] [id number] [place] [address] tammy... [place] [address] [phone] Social History Tobacco Use Types Packs/Day Years [...] you attend christianity or Patient refused 2021 oriental orthodox services? Do you belong to any clubs [...] place to sleep or slept in a m[facility]p (including now)? Education Answer Date Recorded What [...] Telephone Encounter - Leonor Burgos MD - 06/06/2022 11:34 AM DIE MOUNTER Unable to address this via evisit NWD MOUNTER documented in this encounter Plan of Treatment Not on filedocumented as of this encounter Visit Diagnoses Diagnosis Knee problem - Primary Unspecified disorder of lower leg joint documented in this encounter Additional Health Concerns Assessment Noted Time PHQ-9 Depression Total Score: 1 04/08/2022 4:38 PM CDT documented as of this encounter Care Teams Substance Abuse Therapist Relationship Specialty Start Date End Date Annalisa Mark, PCP - General Nurse Practitioner 03/22/15 SCREW EYE ASSEMBLER SUPERVISOR ENDLESS TRACK VEHICLE [address] [place] [address] Jacob Carmona Assigned OBGYN Provider 05/18/20 MD [address] [place], [place] [address] Annalisa Mark, Assigned PCP 05/17/22 SCREW EYE ASSEMBLER SUPERVISOR ENDLESS TRACK VEHICLE [address] [place], [place] [phone] documented as of this encounter
--- OUTSIDE RECORDS SUMMARY | 2022-06-06 20:56 | XMS_ITS | Encounter Summary ---
:1985 Author Organization [place] Address [facility] [place] [address] Care Team Providers Name Role Phone DeedeeAnnalisa dean Madonna STANLEY CNP Primary Care Provider [phone] Jacob Carmona MD Unavailable [phone] Leonor Burgos MD Unavailable [phone] Encounter Details Date Type Department Care Team Description 04/08/2022 Virtual Visit [facility] Aubrey, Shamar y of Clostridium difficile infection (Primary Dx); [facility] [place] Leonor Maldonado MD Mucus in stool [address] [place] [phone] Social History Tobacco Use Types Packs/Day Years [...] or relatives? How often do you attend episcopalian or Patient refused 2021 buddhism services? Do you belong to any clubs or No 10/17/2021 organizations such as episcopalian groups, unions, fraternal or athletic groups, or [...] place to sleep or slept in a nursing home (including now)? Education Answer Date Recorded What is the highest level of school Bachelor's degree (e.g., BA, AB, 02/15/2019 you have completed or the highest BS) degree you have received? Sex Assigned at Date Recorded Female 03/25/2021 2:01 PM CDT documented as of this encounter Progress Notes Aubrey, Leonor Maldonado MD - 04/08/2022 4:30 PM CDT Tameka is a 37 year old who is being evaluated via a billable video visit. How would you like to obtain your AVS? MyChart If the video visit is dropped, the invitation should be resent by: Text to cell phone: [phone] Will anyone else be joining your video visit? No Assessment & Plan History of Clostridium difficile infection Mucus in stool - resolving. Reassurance provided. No indication for concerns at this time. Recommend probiotic daily. Patient to follow up in clinic if bloating persists or worsens 25 minutes spent on the date of the encounter doing chart review, history and exam, documentation and further activities per the note See Patient Instructions No follow-ups on file. Follow-up Visit Expected date: Apr 22, 2022 (Approximate) Follow Up Appointment Details: Follow-up with whom?: PCP Follow-Up for what?: Acute Issue Recheck Additional Details: c.diff How?: In Person Leonor Burgos MD [facility] Tameka is a 37 year old, presenting for the following health issues: No chief complaint on file. History of Present Illness Reason for visit: Bowel/stomach issues Symptom onset: 3-4 weeks ago Symptom intensity: Moderate She eats 0-1 servings of fruits and vegetables daily.She consumes 1 sweetened beverage(s) daily.She exercises with enough effort to increase her heart rate 9 or less minutes per day. She exercises withenough effort to increase her heart rate 3 or less days per week. She is taking medications regularly. Today's PHQ-9 PHQ-9 Total Score: 1 PHQ-9 Q9 Thoughts of better off /self-harm past 2 weeks : Not at all How difficult have these problems made it for you to do your work, take care of things at home, or get along with other people: Not difficult at all Today's MALIHA-7 Score: 4 A few months ago she was seen in the ER for an eye infection and was prescribed clindamycin. Since then she has struggled with c.diff infection. She was treated for this but continues to have stool changes. The other she passed what seems like a mucus plug. She has been having normal stools since Thursday. Denies any blood in stool. Also notes she is feeling bloated Patient admits she is worried and unsure if this signals cancer or some other disease. Review of Systems Constitutional, HEENT, cardiovascular, pulmonary, GI, , musculoskeletal, neuro, skin, endocrine and psych systems are negative, except as otherwise noted. Objective Vitals: No vitals were obtained today due to virtual visit. Physical Exam GENERAL: Healthy, alert and no distress RESP: No audible wheeze, cough, or visible cyanosis. No visible retractions or increased work of breathing. PSYCH: mentation appears normal and anxious Video-Visit Details Video Start Time: 4:14 PM Type of service: Video Visit Video End Time:4:35 PM Originating Location (pt. Location): Home Distant Location (provider location): [facility] Platform used for Video Visit: Exo documented in this encounter Plan of Treatment Not on filedocumented as of this encounter Visit Diagnoses Diagnosis History of Clostridium difficile infecti on - Primary Personal history of other infectious and parasitic disease Mucus in stool Nonspecific abnormal finding in stool co ntents documented in this encounter Additional Health Concerns Assessment Noted Time PHQ-9 Depression Total Score: 1 04/08/2022 4:38 PM CDT documented as of this encounter Care Teams Regional Extension Service Specialist Relationship Specialty Start Date End Date Annalisa Mark, PCP - General Nurse Practitioner 03/22/15 LASTER HAND SENIOR IT PROJECT MANAGER [address] [place] [address] Sabal, Christopher Assigned OBGYN Provider 05/18/20 MD Antony [address] [place] [address] Leonro Burgos Assigned PCP 02/22/22 2 MD Joel [address] [place] [address] documented as of this encounter
--- OUTSIDE RECORDS SUMMARY | 2022-06-06 20:57 | XMS_ITS | Encounter Summary ---
:1985 Author Organization [place] Address [address] [place], [place] [address]. [place] [address] Care Team Providers Name Role Phone Annalisa Mark APRN BALL TRUING 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 Primary Care Provider [phone] Annalisa Mark APRN BALL TRUING 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 Unavailable [phone] Jacob Carmona MD Unavailable [phone] Encounter Details Date Type Department Care Team Description 08/29/2021 Travel Social History Tobacco Use Types Packs/Day Years Used Date Smoking Tobacco: Never Smokeless Tobacco: Never Alcohol Use Standard Drinks/Week Comments Yes 0 (1 standard drink = 0.6 oz [...] attend roman catholic or Patient refused 2021 islam services? Do you belong to any clubs [...] place to sleep or slept in a snf (including now)? Education Answer Date Recorded What is the highest level of school Bachelor's degree (e.g., BA, AB, 02/15/2019 you have completed or the highest BS) degree you have received? Sex Assigned at Date Recorded Female 03/25/2021 2:01 PM CDT COVID-19 Exposure Response Date Recorded In the last month, have you been in contact with No / Unsure 08/29/2021 2:17 PM POWER PLANT INSTALLER someone who was confirmed or suspected to have Coronavirus / COVID-19? documented as of this encounter Plan of Treatment Not on filedocumented as of this encounter Visit Diagnoses Not on filedocumented in this encounter Additional Health Concerns Assessment Noted Time PHQ-9 Depression Total Score: 2 03/25/2021 2:42 PM CDT documented as of this encounter Care Teams Manager Interface Relationship Specialty Start Date End Date Annalisa Mark, PCP - General Nurse Practitioner 03/22/15 TELETYPESETTER OPERATOR BALL TRUING 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 [address] [place] [address] Annalisa Mark, Assigned PCP 01/22/20 2 TELETYPESETTER OPERATOR BALL TRUING 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 [address] [place] [address] Jacob Carmona Assigned OBGYN Provider 05/18/20 MD Antony [address] [place], [place] [id number] documented as of this encounter
--- OUTSIDE RECORDS SUMMARY | 2022-06-06 20:57 | XMS_ITS | Encounter Summary ---
:1985 Author Organization [place] Address [address] [place] [address] Care Team Providers Name Role Phone DeedeeAnnalisa dean Madonna STANLEY MEDICAL SECRETARY RECEPTIONIST Primary Care Provider [phone] DeedeeAnnalisa Madonna STANLEY MEDICAL SECRETARY RECEPTIONIST Unavailable [phone] Jacob Carmona MD Unavailable [phone] Reason for Visit Reason Onset Date Comments Vaginal Discharge Entered automaticall y based on patient selection in [employer]. Vaginal Problem 11/14/2021 Encounter Details Date Type Department Care Team Description 11/14/2021 E-Visit [facility] Meena Adair Vaginal D ischarge Virtual Urgent Care DEMARCUS Garcia (Entered automatically [address] [address] [place] [address] [phone] Social History Tobacco Use Types Packs/Day Years [...] or relatives? How often do you attend presybeterian or Patient refused 2021 christianity services? Do you belong to any clubs or No 10/17/2021 organizations such as presybeterian groups, unions, fraternal or athletic groups, or [...] place to sleep or slept in a custodial (including now)? Education Answer Date Recorded What [...] as of this encounter Patient Instructions Patient InstructionsMeena Adair PA-C - 11/14/2021 6:10 AM CDT Images from the original note were not included. Thank you for choosing us for your care. I have placed an order for a prescription so that you can start treatment. View your full visit summary for details by clicking on the link below. Your pharmacist will able to address any questions you may have about the medication. If you???re not feeling better within 2-3 days, please schedule an appointment. You can schedule anappointment right here in [employer], or call [phone] If the visit is for the same symptoms as your eVisit, we???ll refund the cost of your eVisit if seen within seven days. Yeast Infection (Radha Vaginal Infection) You have a??Radha??vaginal infection. This is also known as a yeast infection. It's most often caused by a type of yeast (fungus) called??Radha.??Radha??are normally found in the vagina. But if they increase in number, this can lead to infection and cause symptoms. Symptoms of a yeast infection can include: ?? Clumpy or thin, white discharge, which may look like cottage cheese ?? Itching or burning ?? Burning with urination Certain factors can make a yeast infection more likely. These can include: ?? Taking certain medicines, such as antibiotics or control pills ? Diabetes ?? Weak immune system A yeast infection is most often treated with antifungal medicine. This may be given as a vaginal cream or pills you take by mouth. Treatment may last for about 1 to 7 days. Women with severe or recurrent infections may need longer courses of treatment. Home care ?? If you???re prescribed medicine, be sure to use it as directed. Finish??all??of the medicine, even if your symptoms go away.??Don???t try to treat yourself using [id number]-[id number] products without talking with your provider first. They will let you know if this is a good option for you. ?? Ask your provider what steps you can take to help reduce your risk of having a yeast infection inthe future. Follow-up care Follow up with your healthcare provider, or as directed. When to seek medical advice Call your healthcare provider right away if: ?? You have a fever of 100.4??F (38??C)??or higher, or as directed by your provider. ?? Your symptoms worsen, or they don???t go away within a few days of starting treatment. ?? You have new pain in the lower belly or pelvic region. ?? You have side effects that bother you or a reaction to the cream or pills you???re prescribed. ?? You or any partners you have sex with have new symptoms, such??as a rash, joint pain, or sores. [employer] last reviewed this educational content on 01/25/2020 ?? 5409-6507 [employer]. All rights reserved. This information is not intended as a substitute for professional medical care. Always follow your healthcare professional's instructions. documented in this encounter Miscellaneous Notes Telephone Encounter - Meena Adair PA-C - 11/14/2021 6:15 AM CDT Provider E-Visit time total (minutes): 10 documented in this encounter Plan of Treatment Not on filedocumented as of this encounter Visit Diagnoses Diagnosis Candidal vulvovaginitis - Primary Candidiasis of vulva and vagina documented in this encounter Additional Health Concerns Assessment Noted Time PHQ-9 Depression Total Score: 4 10/17/2021 10:05 AM CD T documented as of this encounter Care Teams Pearl Glue Operator Relationship Specialty Start Date End Date Annalisa Mark, PCP - General Nurse Practitioner 03/22/15 TORQUE TESTER MEDICAL SECRETARY RECEPTIONIST [address] [place] [address] Annalisa Mark, Assigned PCP 01/22/20 2 TORQUE TESTER MEDICAL SECRETARY RECEPTIONIST [address] [place], [place] [phone] Jacob Carmona Assigned OBGYN Provider 05/18/20 MD Antony [address] [place] [address] documented as of this encounter
--- OUTSIDE RECORDS SUMMARY | 2022-06-06 20:57 | XMS_ITS | Encounter Summary ---
:1985 Author Organization [place] Address [address] [place] [address] Care Team Providers Name Role Phone Annalisa Mark APRN, CNP Primary Care Provider [phone] Annalisa Mark APRN, CNP Unavailable [phone] Jacob Carmona MD Unavailable [phone] Reason for Visit Reason Comments Ear Problem right ear, hx of cellulitis possible, and a boil/pimple popped little puss came out then when it d ried up Pt used the hydrocortisol cream 1% Encounter Details Date Type Department Care Team Description 08/29/2021 Office Visit [facility] Joya Sterling , right Urgent Care Patrica Riley APRN CNP (Primary Dx) [address] [facility] [address] [place] [address] [phone] Social History Tobacco Use Types Packs/Day Years [...] or relatives? How often do you attend adventism or Patient refused 2021 hoahaoism services? Do you belong to any clubs or No 10/17/2021 organizations such as adventism groups, unions, fraternal or athletic groups, or [...] with No / Unsure 08/29/2021 2:17 PM ALUMINUM MOLDING 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 someone who was confirmed or suspected to have Coronavirus / COVID-19? documented as of this encounter Last Filed Vital Signs Vital Sign Reading Time Taken Comments Blood Pressure 114/72 08/29/2021 2:24 PM ALUMINUM MOLDING 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 Pulse 85 08/29/2021 2:24 PM ALUMINUM MOLDING 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 Temperature 37 ??C (98.6 ??F) 08/29/2021 2:24 PM ALUMINUM MOLDING 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 Respiratory Rate 16 08/29/2021 2:24 PM ALUMINUM MOLDING 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 Oxygen Saturation 100% 08/29/2021 2:24 PM ALUMINUM MOLDING 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 Inhaled Oxygen Concentration - - Weight 49.9 kg (110 lb) 08/29/2021 2:24 PM ALUMINUM MOLDING 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 Height - - Body Mass Index 19.33 11/13/2020 8:24 AM CDT documented in this encounter Progress Notes Joya Sterling APRN CNP - 08/29/2021 2:20 PM CST Assessment & Plan Otalgia, right No evidence of cellulitis at this time. Continue to keep area clean and dry. Try not to touch it. May continue OTC hydrocortisone BID x 1 week F/u if persists or worsens. No follow-ups on file. Joya Sterling APRN CNP [facility] is a 36 year old female who presents to clinic today for the following health issues: Chief Complaint Patient presents with ??? Ear Problem right ear, hx of cellulitis possible, and a boil/pimple popped little puss came out then when it dried up Pt used the hydrocortisol cream 1% HPI Had cellulitis several years ago and since then has been prone to boils and soft tissue infections in that ear. Popped a boil 2 days ago and ear is acutely tender. Rash Onset of rash was 2 day(s) ago. Course of illness is improving. Severity mild Current and Associated symptoms: itching Location of the rash: ear. Previous history of a similar rash? Yes Recent exposure history: none known Denies exposure to: none known Associated symptoms include: nothing. Treatment measures tried include: otc hydrocortisone cream Just wants to make sure it is not infected or a cellulitis Review of Systems Constitutional, HEENT, cardiovascular, pulmonary, GI, , musculoskeletal, neuro, skin, endocrine and psych systems are negative, except as otherwise noted. Objective BP 114/72 Pulse 85 Temp 98.6 ??F (37 ??C) (Oral) Resp 16 Wt 49.9 kg (110 lb) SpO2 100% BMI 19.33 kg/m?? Physical Exam GENERAL: healthy, alert and no distress EYES: Eyes grossly normal to inspection, PERRL and conjunctivae and sclerae normal HENT: small pinpoint scab in right ear without surrounding erythema or edema. ear canals and TM's normal, nose and mouth without ulcers or lesions NECK: no adenopathy, no asymmetry, masses, or scars and thyroid normal to palpation RESP: lungs clear to auscultation - no rales, rhonchi or wheezes CV: regular rate and rhythm, normal S1 S2, no S3 or S4, no murmur, click or rub, no peripheral edemaand peripheral pulses strong MS: no gross musculoskeletal defects noted, no edema SKIN: no suspicious lesions or rashes INUM MOLDING 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 documented in this encounter Plan of Treatment Not on filedocumented as of this encounter Visit Diagnoses Diagnosis Otalgia, right - Primary documented in this encounter Additional Health Concerns Assessment Noted Time PHQ-9 Depression Total Score: 2 03/25/2021 2:42 PM CDT documented as of this encounter Care Teams Event Sales Representative Relationship Specialty Start Date End Date Annalisa Mark, PCP - General Nurse Practitioner 03/22/15 JADEN TOUR GUIDE [address] [address] [address] [phone] Annalisa Mark, Assigned PCP 01/22/20 2 LENS BLOCKER TOUR GUIDE [address] [place], [place] [phone] Jacob Carmona Assigned OBGYN Provider 05/18/20 MD Antony [address] [place] [address] documented as of this encounter
--- OUTSIDE RECORDS SUMMARY | 2022-06-06 20:57 | XMS_ITS | Encounter Summary ---
:1985 Author Organization [place] Address [address] [facility] [place] [address] Care Team Providers Name Role Phone Deedee, Annalisa Peacock APRN CHIEF FUNDRAISING OFFICER Primary Care Provider [phone] DeedeeSwapnaarnulfo Peacock APRN CHIEF FUNDRAISING OFFICER Unavailable [phone] Jacob Carmona MD Unavailable [phone] Reason for Visit Reason Comments Other Entered automatically based on patient selection in [employer]. Encounter Details Date Type Department Care Team Description 11/13/2021 E-Visit [facility] Rodolfo Proctor Othe r (Entered [facility] [place] PA-C automatically based on [address] [place] [address] tammy... [place] [address] [phone] Social History Tobacco Use Types Packs/Day Years [...] or relatives? How often do you attend anglican or Patient refused 2021 buddhism services? Do you belong to any clubs or No 10/17/2021 organizations such as anglican groups, unions, fraternal or athletic groups, or [...] this encounter Miscellaneous Notes Telephone Encounter - Beronica Kaur RN - 11/15/2021 8:03 AM CDT Rodolfo Proctor, PAC Please review picture patient sent an addendum to [facility] Wondering if she has thrush, picture does not appear to be thrush - given fluconazole yesterday by urgent care for another concern Please advise if you would like another visit? Thank you, Beronica Kaur, Registered Nurse [facility] Telephone Encounter - Rodolfo Proctor PA-C - 11/13/2021 7:20 AM CDT Provider E-Visit time total (minutes): 5 Addendum Note - Rodolfo Proctor PA-C - 11/13/2021 12:40 AM CDT Addended by: RODOLFO PROCTOR on: 11/15/2021 08:15 AM Modules accepted: Orders documented in this encounter Plan of Treatment Not on filedocumented as of this encounter Visit Diagnoses Diagnosis Mouth pain - Primary Other and unspecified diseases of the or al soft tissues Sore throat Acute pharyngitis Infection due to 2019 novel coronavirus documented in this encounter Additional Health Concerns Assessment Noted Time PHQ-9 Depression Total Score: 4 10/17/2021 10:05 AM CD T documented as of this encounter Care Teams Traffic Expert Relationship Specialty Start Date End Date Annalisa Mark, PCP - General Nurse Practitioner 03/22/15 ELECTRICIAN SUPERVISOR CHIEF FUNDRAISING OFFICER [address] [place] [address] Annalisa Mark, Assigned PCP 01/22/20 2 ELECTRICIAN SUPERVISOR CHIEF FUNDRAISING OFFICER [address] [place], [place] [phone] Jacob Carmona Assigned OBGYN Provider 05/18/20 MD Antony [address] [place], [place] [address] documented as of this encounter
--- OUTSIDE RECORDS SUMMARY | 2022-06-06 20:57 | XMS_ITS | Encounter Summary ---
:1985 Author Organization [place] Address [address] [place] [address] Care Team Providers Name Role Phone Annalisa Mark Madonna JADEN PIERCER Primary Care Provider [phone] DeedeeAnnalisa Madonna STANLEY PIERCER Unavailable [phone] Jacob Carmona MD Unavailable [phone] Reason for Visit Reason Onset Date Comments Covid Concern Entered automaticall y based on patient selection in [employer]. Covid Concern 11/07/2021 Encounter Details Date Type Department Care Team Description 11/07/2021 E-Visit [facility] Aliya Gutierrez, Cov id Concern (Entered Virtual Urgent Care PA-C automatically based... [address] [address] [place], [place] [phone] (Wo rk) Social History Tobacco Use Types [...] or relatives? How often do you attend gnosticist or Patient refused 2021 restorationist services? Do you belong to any clubs or No 10/17/2021 organizations such as gnosticist groups, unions, fraternal or athletic groups, or [...] been in contact with No / Unsure 10/17/2021 9:08 AM CDT someone who was confirmed or suspected to have Coronavirus / COVID-19? documented as of this encounter Patient Instructions Patient InstructionsAliya Gutierrez PA-C - 11/07/2021 3:55 PM CDT Tameka, you would need to make a telephone or virtual appointment to discuss treatment and have it prescribed. You should be able to schedule that through my chart. Aliya Gutierrez PA-C documented in this encounter Miscellaneous Notes Telephone Encounter - Aliya Gutierrez PA-C - 11/07/2021 3:52 PM CDT Provider E-Visit time total (minutes): 3 documented in this encounter Plan of Treatment Not on filedocumented as of this encounter Visit Diagnoses Diagnosis Encounter for patient concern about expo sure to infectious organism - Primary documented in this encounter Additional Health Concerns Assessment Noted Time PHQ-9 Depression Total Score: 4 10/17/2021 10:05 AM CD T documented as of this encounter Care Teams Double Surface Operator Relationship Specialty Start Date End Date Annalisa Mark, PCP - General Nurse Practitioner 03/22/15 PT [facility] [address] [place], [place] [phone] Annalisa Mark, Assigned PCP 01/22/20 2 PT ESCORT PIERCER [address] [address] [place], [place] [phone] Jacob Carmona Assigned OBGYN Provider 05/18/20 MD Antony [address] [place], [place] [phone] documented as of this encounter
--- OUTSIDE RECORDS SUMMARY | 2022-06-06 20:57 | XMS_ITS | Encounter Summary ---
:1985 Author Organization [place] Address [address] [facility] [place] [address] Care Team Providers Name Role Phone Deedee, Annalisa Peacock APRN, CNP Primary Care Provider [phone] Annalisa Mark APRN ASSOCIATE FIELD SERVICE ENGINEER Unavailable [phone] Jacob Carmona MD Unavailable [phone] Reason for Visit Reason Comments Vaginal Problem Encounter Details Date Type Department Care Team Description 12/25/2020 Virtual Visit [facility] [place], Yeast vaginitis Clinic [place] Leonor Maldonado MD (Primary Dx) [address] [place] [id number] [phone] Social History Tobacco Use Types Packs/Day Years [...] you attend adventism or Patient refused 2021 orthodoxy services? Do [...] been in contact with No / Unsure 12/20/2020 12:05 PM CDT someone who was confirmed or suspected to have Coronavirus / COVID-19? documented as of this encounter Patient Instructions Patient InstructionsLeonor Burgos MD - 12/25/2020 4:20 PM CDT Take current fluconazole dose today. Upon completing course of antibiotics take the other tablet. If symptoms persists please follow up in clinic. documented in this encounter Progress Notes Leonor Burgos MD - 12/25/2020 4:20 PM CDT Tameka is a 35 year old who is being evaluated via a billable video visit. How would you like to obtain your AVS? MyChart If the video visit is dropped, the invitation should be resent by: Text to cell phone: [phone] Will anyone else be joining your video visit? No Video Start Time: 4:17 PM Assessment & Plan Yeast vaginitis - will treat presumptively with diflucan. If no improvement in symptoms patient to be seen in clinicfor wet prep. - fluconazole (DIFLUCAN) 150 MG tablet; Take 1 tablet (150 mg) by mouth once for 1 dose See Patient Instructions No follow-ups on file. Leonor Burgos MD [facility] Chi English is a 35 year old who presents for the following health issues HPI Vaginal Symptoms Onset/Duration: 4 days Description: Vaginal Discharge: bloody brown Itching (Pruritis): YES Burning sensation: no Odor: YES Accompanying Signs & Symptoms: Urinary symptoms: no Abdominal pain: no Fever: no History: Sexually active: yes New Partner: no Possibility of : no Recent antibiotic use: YES Previous vaginitis issues: no Precipitating or alleviating factors: None Therapies tried and outcome: none She was recently started on cephalexin for cellulitis of her ear. Notes her discharge is blood tinged because she is due to start on her period. Denies any urinary symptoms. Review of Systems Constitutional, HEENT, cardiovascular, pulmonary, GI, , musculoskeletal, neuro, skin, endocrine and psych systems are negative, except as otherwise noted. Objective Vitals: No vitals were obtained today due to virtual visit. Physical Exam GENERAL: Healthy, alert and no distress EYES: Eyes grossly normal to inspection. No discharge or erythema, or obvious scleral/conjunctival abnormalities. RESP: No audible wheeze, cough, or visible cyanosis. No visible retractions or increased work of breathing. PSYCH: Mentation appears normal, affect normal/bright, judgement and insight intact, normal speech and appearance well-groomed. Video-Visit Details Type of service: Video Visit Video End Time:4:31 pm Originating Location (pt. Location): Home Distant Location (provider location): [facility] Platform used for Video Visit: Doximmariana documented in this encounter Plan of Treatment Not on filedocumented as of this encounter Visit Diagnoses Diagnosis Yeast vaginitis - Primary Candidiasis of vulva and vagina documented in this encounter Additional Health Concerns Assessment Noted Time PHQ-9 Depression Total Score: 2 11/14/2020 7:03 AM CDT documented as of this encounter Care Teams Nuclear Scientist Relationship Specialty Start Date End Date Annalisa Mark, PCP - General Nurse Practitioner 03/22/15 LAN ANALYST ASSOCIATE FIELD SERVICE ENGINEER [address] [place] [address] Annalisa Mark, Assigned PCP 01/22/20 2 LAN ANALYST ASSOCIATE FIELD SERVICE ENGINEER [address] [place] [address] Jacob Carmona Assigned OBGYN Provider 05/18/20 MD Antony [address] [place] [address] documented as of this encounter
--- OUTSIDE RECORDS SUMMARY | 2022-06-06 20:57 | XMS_ITS | Encounter Summary ---
:1985 Author Organization [place] Address [address] [place] [address] Care Team Providers Name Role Phone Annalisa Mark APRN NETWORK STRATEGIST Primary Care Provider [phone] Annalisa Mark APRN NETWORK STRATEGIST Unavailable [phone] Jacob Carmona MD Unavailable [phone] Reason for Visit Reason Comments URI kids had croup Encounter Details Date Type Department Care Team Description 01/14/2021 Office Visit [facility] Patricia Yip, Cough (Primary Dx); Urgent Care Acute nonintractable headache, unspecifi ed headache type [place] [address] [address] [place] [address] [place], [place] [phone] (Work) [phone] Social History Tobacco Use Types Packs/Day Years [...] or relatives? How often do you attend spiritism or Patient refused 2021 taoist services? Do you belong to any clubs or No 10/17/2021 organizations such as spiritism groups, unions, fraternal or athletic groups, or [...] been in contact with No / Unsure 01/14/2021 10:04 AM CDT someone who was confirmed or suspected to have Coronavirus / COVID-19? documented as of this encounter Last Filed Vital Signs Vital Sign Reading Time Taken Comments Blood Pressure 80/52 01/14/2021 10:11 AM CDT Pulse 97 01/14/2021 10:11 AM CDT Temperature 37.1 ??C (98.7 ??F) 01/14/2021 10:11 AM CDT Respiratory Rate 16 01/14/2021 10:11 AM CDT Oxygen Saturation 100% 01/14/2021 10:11 AM CDT Inhaled Oxygen Concentration - - Weight 50.8 kg (112 lb) 01/14/2021 10:11 AM CDT Height - - Body Mass Index 19.68 11/13/2020 8:24 AM CDT documented in this encounter Patient Instructions Patient InstructionsPatricia Yip MD - 01/14/2021 10:30 AM CDT Alternating doses of Tylenol and ibuprofen. Take two Tylenol and then 3 hours later take 800 mg ibuprofen and keep alternating back and forth to help with your headache. COVID test results should be available later today or tomorrow. Stay isolated as best you can until you know the resutls. documented in this encounter Progress Notes Patricia Yip MD - 01/14/2021 10:30 AM CDT Assessment & Plan ICD-10-CM 1. Cough R05 Symptomatic COVID-19 Virus (Coronavirus) by PCR 2. Acute nonintractable headache, unspecified headache type R51.9 Likely due to same virus causing croup in her children (paraflu vs other). No evidence of pneumonia at this time. COVID test pending. Isolate until results are known. Symptomatic management with OTC therapies, including Tylenol/ibuprofen for headache. Push fluids. Return in about 1 week (around 01/21/2021) for If symptoms worsen or fail to improve. Patricia Yip MD [facility] is a 35 year old female who presents to clinic today for the following health issues: Chief Complaint Patient presents with ??? URI kids had croup Kids started daycare recently and both have been diagnosed with croup in the last 2 weeks. Neither child was tested for COVID. Pt is not vaccinated, but states they are diligent about wearing masks andstaying very isolated as her son has CF. Had fever to 101 yesterday. Headache today. Minimal sore throat. Some coughing, but not barky sounding like the kids. Objective BP (!) 80/52 (BP Location: Right arm, Patient Position: Chair, Cuff Size: Adult Regular) Pulse 97 Temp 98.7 ??F (37.1 ??C) (Oral) Resp 16 Wt 50.8 kg (112 lb) SpO2 100% No BMI 19.68 kg/m?? Physical Exam Vitals signs and nursing note reviewed. Constitutional: General: She is not in acute distress. Appearance: Normal appearance. HENT: Right Ear: Tympanic membrane, ear canal and external ear normal. Left Ear: Tympanic membrane, ear canal and external ear normal. Mouth/Throat: Mouth: Mucous membranes are moist. Pharynx: No oropharyngeal exudate or posterior oropharyngeal erythema. Eyes: Conjunctiva/sclera: Conjunctivae normal. Cardiovascular: Rate and Rhythm: Normal rate and regular rhythm. Heart sounds: Normal heart sounds. Pulmonary: Effort: Pulmonary effort is normal. No respiratory distress. Breath sounds: Normal breath sounds. Lymphadenopathy: Cervical: No cervical adenopathy. Neurological: Mental Status: She is alert. documented in this encounter Miscellaneous Notes Addendum Note - Grambart, Harrison Adrienne - 01/14/2021 10:30 AM CDT Addended by: HARRISON VENTURA on: 01/14/2021 11:34 AM Modules accepted: Orders documented in this encounter Plan of Treatment Not on filedocumented as of this encounter Procedures Procedure Name Priority Date/Time Associated Diagnosis Comme nts SARS-COV-2 Routine 01/14/2021 11:30 AM Cough Results for this (COVID-19) VIRUS CDT procedure a re in RT-PCR the results section. COVID-19 VIRUS Routine 01/14/2021 11:30 AM Cough Result s for this (CORONAVIRUS) BY CDT procedure a re in PCR the results section. documented in this encounter Results SARS-CoV-2 COVID-19 Virus (Coronavirus) by PCR (01/14/2021 11:30 AM CDT) [facility] Method Time Signature SARS-CoV-2 Nasopharyngeal 01/15/2021 INFECTIOUS Virus 3:32 PM CDT DISEASES Specimen DIAGNOSTIC Source LABORATORY, [facility] SARS-CoV-2 NEGATIVE 01/15/2021 INFECTIOUS PCR Result 3:32 PM CDT DISEASES DIAGNOSTIC LABORATORY, [facility] Comment: SARS-CoV2 (COVID-19) RNA not de tected, presumed negative. SARS-CoV-2 PCR Testing was performed 01/15/2021 3: 32 PM INFECTIOUS DISEASES Comment using the TaqPath CDT DIAGNOSTIC COVID-19 Combo Kit by DUDLEY LEWIS, [facility] [employer]. Comment: This test should be ordered for the dete ction of SARS-CoV-2 in individuals who meet SARS-CoV-2 clinical and/or epidemi ological criteria. Test performance is unknown in asymptomatic patients. This test is for in vitro diagnostic use under the FDA EUA for laboratories certified under CLIA to perform high and /or moderate complexity testing. This test has not been FDA cleared or approve d. A negative result does not rule out the presence of PCR inhibitors in the specimen or target RNA in concentration below the limit of detection for the assay. ??The possibility of a false nega tive should be considered if the patient's recent exposure or clinical pr esentation suggests COVID-19. This test was validated by the [facility] Infectious Diseases Diagnostic Laboratory. This laboratory i s certified under the Clinical Laboratory Improvement Amendments of 198 8 (CLIA-88) as qualified to perform high and/or moderate complexity laborato ry testing. Specimen (Source) Anatomical Collection Method Collection Time Re ceived Time Location / / Volume Laterality Specimen from 01/14/2021 11:30 01/14/2021 nasopharyngeal AM CDT 11:35 AM CDT structure (specimen) Patricia Yip MD LAB - MICRO GENERAL ORDERABL ES Performing Organization Address City/[facility]/ZIP Code Phon e Number INFECTIOUS DISEASES DIAGNOSTIC [address] [facility] [address] LABORATORY, [facility] Symptomatic COVID-19 Virus (Coronavirus) by PCR (01/14/2021 11:30 AM CDT) Component Value Ref Test Analysis Performed At [facility] Range Method Time Signature COVID-19 Nasopharyngeal 01/14/2021 [place] Virus PCR to 11:35 AM CLINICS [facility] [place] - CDT [place] Source COVID-19 Test received-See 01/14/2021 INFECTIOUS Virus PCR to reflex to IDDL 8:35 PM CDT DISEASES [facility] [place] - test SARS CoV2 DIAGNOSTIC Result (COVID-19) Virus LABORATORY, RT-PCR [facility] Specimen (Source) Anatomical Collection Method Collection Time Re ceived Time Location / / Volume Laterality Specimen from 01/14/2021 11:30 01/14/2021 nasopharyngeal AM CDT 11:35 AM CDT structure (specimen) Patricia Yip MD LAB - MICRO GENERAL ORDERABL ES Performing Organization Address City/[facility] Code Phon e Number INFECTIOUS DISEASES DIAGNOSTIC [address] [facility] [address] [address] [address], [facility] [address] [place] [address] documented in this encounter Visit Diagnoses Diagnosis Cough - Primary Acute nonintractable headache, unspecifi ed headache type documented in this encounter Additional Health Concerns Infection Onset Date Last Indicated Resolved Time Rule Out COVID-19 01/14/2021 01/14/2021 01/15/2021 3:3 2 PM CDT Assessment Noted Time PHQ-9 Depression Total Score: 2 11/14/2020 7:03 AM CDT documented as of this encounter Care Teams Grinding Machine Operator Relationship Specialty Start Date End Date Annalisa Mark, PCP - General Nurse Practitioner 03/22/15 SHED BOSS NETWORK STRATEGIST [address] [place] [address] Annalisa Mark, Assigned PCP 01/22/20 2 SHED BOSS NETWORK STRATEGIST [address] [place] [address] Jacob Carmona Assigned OBGYN Provider 05/18/20 MD Antony [address] [place], [place] [address] documented as of this encounter
--- OUTSIDE RECORDS SUMMARY | 2022-06-06 20:57 | XMS_ITS | Encounter Summary ---
:1985 Author Organization [place] Address [facility] [place] [address] Care Team Providers Name Role Phone Deedee Annalisa Peacock APRN CLIMBING GUIDE Primary Care Provider [phone] Annalisa Mark APRN CLIMBING GUIDE Unavailable [phone] Jacob Carmona MD Unavailable [phone] Leonor Burgos MD Unavailable [phone] Annalisa Mark APRN CLIMBING GUIDE Unavailable [phone] Reason for Visit Reason Comments Medication Refill Encounter Details Date Type Department Care Team Description 12/07/[address] [facility] Jaron Carmona, Medication Refill Deborah ROLLINS [address] [place] [address] [place] [address] [address] [place] [address] [phone] Social History Tobacco Use Types Packs/Day Years [...] you attend spiritism or Patient refused 2021 evangelical services? Do you belong to any clubs [...] documented as of this encounter Care Teams Coating Operator Relationship Specialty Start Date End Date Annalisa Mark, PCP - General Nurse Practitioner 03/22/15 PODIATRIST ASSISTANT CLIMBING GUIDE [address] [place] [address] Annalisa Mark, Assigned PCP 01/22/20 2 PODIATRIST ASSISTANT CLIMBING GUIDE [address] [place] [address] Jacob Carmona Assigned OBGYN Provider 05/18/20 MD [address] [place] [address] Leonor Burgos Assigned PCP 02/22/22 2 MD Joel [address] [place] [address] Annalisa Mark, Assigned PCP 05/17/22 PODIATRIST ASSISTANT [facility] [address] [place] [address] documented as of this encounter
--- OUTSIDE RECORDS SUMMARY | 2022-06-06 20:57 | XMS_ITS | Encounter Summary ---
:1985 Author Organization [place] Address [facility] [place] [address] Care Team Providers Name Role Phone Annalisa Mark APRN, CNP Primary Care Provider [phone] Annalisa Mark APRN [facility] Unavailable [phone] Jacob Carmona MD Unavailable [phone] Reason for Visit Reason Comments Anxiety Covid Concern discuss vaccine Encounter Details Date Type Department Care Team Description 03/25/2021 Virtual Visit [facility] Annalisa Mark ed anxiety Clinic [place] JADEN Peacock disorder [address] [place] [address] [facility] [address] [place] [phone] [address] Social History Tobacco Use Types Packs/Day Years [...] or relatives? How often do you attend taoist or Patient refused 2021 restorationism services? Do you belong to any clubs or No 10/17/2021 organizations such as taoist groups, unions, fraternal or athletic groups, or [...] been in contact with No / Unsure 03/25/2021 2:37 PM CDT someone who was confirmed or suspected to have Coronavirus / COVID-19? documented as of this encounter Progress Notes Annalisa Mark APRN CNP - 03/25/2021 3:00 PM CDT Tameka is a 35 year old who is being evaluated via a billable video visit. How would you like to obtain your AVS? MyChart If the video visit is dropped, the invitation should be resent by: Text to cell phone: [phone] Will anyone else be joining your video visit? No Video Start Time: 1507 Assessment & Plan Generalized anxiety disorder: PHQ 9 of 2, MALIHA 7 of 5. Anxiety greatly improved, continue on citalopram 10 mg daily - citalopram (CELEXA) 10 MG tablet; Take 1 tablet (10 mg) by mouth daily Return in about 6 months (around 09/23/2021) for Routine Visit, anxiety. Annalisa Mark APRN CNP [facility] Tameka is a 35 year old who presents for the following health issues HPI Anxiety Follow-Up ?? How are you doing with your anxiety since your last visit? Improved ?? Are you having other symptoms that might be associated with anxiety? No ?? Have you had a significant life event? No ?? Are you feeling depressed? No ?? Do you have any concerns with your use of alcohol or other drugs? No PHQ 9 of 2, MALIHA 7 of 5. Taking citalopram 10 mg daily. When takes in the afternoon wakes up at 0100 and is not able to go back to sleep. Is planning to start taking in the am. Social History Tobacco Use ??? Smoking status: Never Smoker ??? Smokeless tobacco: Never Used Substance Use Topics ??? Alcohol use: Yes Alcohol/week: 0.0 standard drinks Comment: Occaisional ??? Drug use: No MALIHA-7 SCORE 02/12/2021 03/25/2021 03/25/2021 Total Score - - - Total Score 8 (mild anxiety) - 5 (mild anxiety) Total Score 8 5 5 PHQ 02/12/2021 03/25/2021 03/25/2021 PHQ-9 Total Score 2 2 2 Q9: Thoughts of better off /self-harm past 2 weeks Not at all Not at all Not at all Last PHQ-9 03/25/2021 1. Little interest or pleasure in doing things 0 2. Feeling down, depressed, or hopeless 0 3. Trouble falling or staying asleep, or sleeping too much 1 4. Feeling tired or having little energy 1 5. Poor appetite or overeating 0 6. Feeling bad about yourself 0 7. Trouble concentrating 0 8. Moving slowly or restless 0 Q9: Thoughts of better off /self-harm past 2 weeks 0 PHQ-9 Total Score 2 Difficulty at work, home, or with people Not difficult at all MALIHA-7 03/25/2021 1. Feeling nervous, anxious, or on edge 1 2. Not being able to stop or control worrying 1 3. Worrying too much about different things 1 4. Trouble relaxing 1 5. Being so restless that it is hard to sit still 0 6. Becoming easily annoyed or irritable 0 7. Feeling afraid, as if something awful might happen 1 MALIHA-7 Total Score 5 If you checked any problems, how difficult have they made it for you to do your work, take care of things at home, or get along with other people? Not difficult at all Answers for HPI/ROS submitted by the patient on 03/25/2021 If you checked off any problems, how difficult have these problems made it for you to do your work, take care of things at home, or get along with other people?: Not difficult at all PHQ9 TOTAL SCORE: 2 MALIHA 7 TOTAL SCORE: 5 Depression/Anxiety: Anxiety Anxiety since last: : good Other associated symptoms: : Yes Significant life event: : No Anxious:: No Current substance use:: No How many servings of fruits and vegetables do you eat daily?: 0-1 On average, how many sweetened beverages do you drink each day (Examples: soda, juice, sweet tea, etc. Do NOT count diet or artificially sweetened beverages)?: 1 How many minutes a day do you exercise enough to make your heart beat faster?: 10 to 19 How many days a week do you exercise enough to make your heart beat faster?: 3 or less How many days per week do you miss taking your medication?: 0 Review of Systems CONSTITUTIONAL: NEGATIVE for fever, chills, change in weight RESP: NEGATIVE for significant cough or SOB CV: NEGATIVE for chest pain, palpitations or peripheral edema PSYCHIATRIC: see HPI Objective Vitals - Patient Reported Weight (Patient Reported): 49.9 kg (110 lb) Height (Patient Reported): 160 cm (5' 3) BMI (Based on Pt Reported Ht/Wt): 19.49 Temperature (Patient Reported): 98 ??F (36.7 ??C) Vitals: No vitals were obtained today due to virtual visit. Physical Exam GENERAL: Healthy, alert and no distress RESP: No audible wheeze, cough, or visible cyanosis. No visible retractions or increased work of breathing. NEURO: Cranial nerves grossly intact. Mentation and speech appropriate for age. PSYCH: Mentation appears normal, affect normal/bright, judgement and insight intact, normal speech and appearance well-groomed. Video-Visit Details Type of service: Video Visit Video End Time:1515 Originating Location (pt. Location): Home Distant Location (provider location): [facility] Platform used for Video Visit: Karl documented in this encounter Plan of Treatment Not on filedocumented as of this encounter Visit Diagnoses Diagnosis Generalized anxiety disorder documented in this encounter Additional Health Concerns Assessment Noted Time PHQ-9 Depression Total Score: 2 03/25/2021 2:42 PM CDT documented as of this encounter Care Teams Monitoring Tech Relationship Specialty Start Date End Date Annalisa Mark, PCP - General Nurse Practitioner 03/22/15 [address] [address] [place] [address] Annalisa Mark, Assigned PCP 01/22/20 2 ETHNOLOGY TEACHER TAKER DOWN [address] [place] [address] Jacob Carmona Assigned OBGYN Provider 05/18/20 MD Antony [address] [place], [place] [id number] documented as of this encounter
--- OUTSIDE RECORDS SUMMARY | 2022-06-06 20:57 | XMS_ITS | Encounter Summary ---
:1985 Author Organization [place] Address [address] [facility] [place] [address] Care Team Providers Name Role Phone Annalisa Mark APRN, CNP Primary Care Provider [phone] Annalisa Mark APRN, CNP Unavailable [phone] Jacob Carmona MD Unavailable [phone] Reason for Visit Reason Comments Physical Encounter Details Date Type Department Care Team Description 10/17/2021 Office Visit [facility] Annalisa Mark anxiety disorder (Primary Dx); [facility] JADEN Peacock CNP Concern about female breast disease with out diagnosis [address] [place] [phone] Social History Tobacco Use Types Packs/Day Years [...] or relatives? How often do you attend mandaen or Patient refused 2021 rastafari services? Do you belong to any clubs or No 10/17/2021 organizations such as mandaen groups, unions, fraternal or athletic groups, or [...] place to sleep or slept in a jail (including now)? Education Answer Date Recorded What [...] Sign Reading Time Taken Comments Blood Pressure 111/74 10/17/2021 9:19 AM CDT Pulse 103 10/17/2021 9:19 AM CDT Temperature 36.6 ??C (97.9 ??F) 10/17/2021 9:19 AM CDT Respiratory Rate 20 10/17/2021 9:19 AM CDT Oxygen Saturation 98% 10/17/2021 9:19 AM CDT Inhaled Oxygen Concentration - - Weight 49.6 kg (109 lb 6.4 oz) 10/17/2021 9:19 AM CDT Height 160 cm (5' 3) 10/17/2021 9:19 AM CDT Body Mass Index 19.38 10/17/2021 9:19 AM CDT documented in this encounter Patient Instructions Patient InstructionsRajwinder Currie CMA - 10/17/2021 9:30 AM CDT Preventive Health Recommendations Female Ages 26 - 39 Yearly exam: See your health care provider every year in order to ??? Review health changes. ??? Discuss preventive care. ??? Review your medicines if you your doctor has prescribed any. Until age 30: Get a Pap test every three years (more often if you have had an abnormal result). After age 30: Talk to your doctor about whether you should have a Pap test every 3 years or have a Pap test with HPV screening every 5 years. You do not need a Pap test if your uterus was removed (hysterectomy) and you have not had cancer. You should be tested each year for STDs (sexually transmitted diseases), if you're at risk. Talk to your provider about how often to have your cholesterol checked. If you are at risk for diabetes, you should have a diabetes test (fasting glucose). Shots: Get a flu shot each year. Get a tetanus shot every 10 years. Nutrition: ??? Eat at least 5 servings of fruits and vegetables each day. ??? Eat whole-grain bread, whole-wheat pasta and brown rice instead of white grains and rice. ??? Get adequate Calcium and Vitamin D. Lifestyle ??? Exercise at least 150 minutes a week (30 minutes a day, 5 days of the week). This will help you control your weight and prevent disease. ??? Limit alcohol to one drink per day. ??? No smoking. ?? Wear sunscreen to prevent skin cancer. ?? See your dentist every six months for an exam and cleaning. documented in this encounter Progress Notes Annalisa Mark APRN CNP - 10/17/2021 9:30 AM CDT Assessment & Plan Generalized anxiety disorder: MALIHA 7 of 4, PHQ 9 of 4. Denies thoughts of harming self or others. Will refill citalopram 10 mg daily. Discussed stopping energy drinks and other caffiene. Advised melatonin 3 mg at bedtime if needed for insomnia. - citalopram (CELEXA) 10 MG tablet Dispense: 90 tablet; Refill: 1 Concern about female breast disease without diagnosis: normal breast exam. Discussed breast changes around period and with increased caffeine. Reviewed breast changes that should raise concern (pain, lump, asymmetry, nipple discharge, nipple inversion). FUTURE APPOINTMENTS: - Follow-up visit in 6 weeks for physical exam Annalisa Mark APRN CNP [facility] DIONNE English is a 36 year old who presents for the following health issues HPI Depression and Anxiety Follow-Up ?? How are you doing with your depression since your last visit? No change ?? How are you doing with your anxiety since your last visit? No change ?? Are you having other symptoms that might be associated with depression or anxiety? Yes: insomnia ?? Have you had a significant life event? OTHER: increase in work stress ?? Do you have any concerns with your use of alcohol or other drugs? No Social History Tobacco Use ??? Smoking status: Never Smoker ??? Smokeless tobacco: Never Used Vaping Use ??? Vaping Use: Never used Substance Use Topics ??? Alcohol use: Not Currently Alcohol/week: 0.0 standard drinks Comment: Occaisional ??? Drug use: No PHQ 03/25/2021 03/25/2021 10/17/2021 PHQ-9 Total Score 2 2 4 Q9: Thoughts of better off /self-harm past 2 weeks Not at all Not at all Not at all MALIHA-7 SCORE 03/25/2021 03/25/2021 10/17/2021 Total Score - - - Total Score - 5 (mild anxiety) - Total Score 5 5 4 Last PHQ-9 10/17/2021 1. Little interest or pleasure in doing things 0 2. Feeling down, depressed, or hopeless 0 3. Trouble falling or staying asleep, or sleeping too much 2 4. Feeling tired or having little energy 1 5. Poor appetite or overeating 1 6. Feeling bad about yourself 0 7. Trouble concentrating 0 8. Moving slowly or restless 0 Q9: Thoughts of better off /self-harm past 2 weeks 0 PHQ-9 Total Score 4 Difficulty at work, home, or with people Not difficult at all MALIHA-7 10/17/2021 1. Feeling nervous, anxious, or on edge 1 2. Not being able to stop or control worrying 1 3. Worrying too much about different things 1 4. Trouble relaxing 1 5. Being so restless that it is hard to sit still 0 6. Becoming easily annoyed or irritable 0 7. Feeling afraid, as if something awful might happen 0 MALIHA-7 Total Score 4 If you checked any problems, how difficult have they made it for you to do your work, take care of things at home, or get along with other people? Not difficult at all Suicide Assessment Five-step Evaluation and Treatment (SAFE-T) Concern about breasts: Has breast lumps and tenderness prior to her period, LMP 10/08/2021, no concerns at this time. Several close friend recently diagnosed with breast cancer. Review of Systems CONSTITUTIONAL: NEGATIVE for fever, chills, change in weight RESP: NEGATIVE for significant cough or SOB BREAST: NEGATIVE for masses, tenderness or discharge CV: NEGATIVE for chest pain, palpitations or peripheral edema PSYCHIATRIC: see HPI Objective BP 111/74 (BP Location: Right arm, Patient Position: Sitting, Cuff Size: Adult Regular) Pulse 103 Temp 97.9 ??F (36.6 ??C) (Oral) Resp 20 Ht 1.6 m (5' 3) Wt 49.6 kg (109 lb 6.4 oz) LMP 10/09/2021 (Exact Date) SpO2 98% BMI 19.38 kg/m?? Body mass index is 19.38 kg/m??. Physical Exam GENERAL: healthy, alert and no distress NECK: no adenopathy, no asymmetry, masses, or scars and thyroid normal to palpation RESP: lungs clear to auscultation - no rales, rhonchi or wheezes BREAST: normal without masses, tenderness or nipple discharge and no palpable axillary masses or adenopathy CV: regular rate and rhythm, normal S1 S2, no S3 or S4, no murmur, click or rub, no peripheral edema PSYCH: mentation appears normal, affect normal/bright documented in this encounter Plan of Treatment Not on filedocumented as of this encounter Visit Diagnoses Diagnosis Generalized anxiety disorder - Primary Concern about female breast disease with out diagnosis Person with feared complaint in whom no diagnosis was made documented in this encounter Additional Health Concerns Assessment Noted Time PHQ-9 Depression Total Score: 4 10/17/2021 10:05 AM CD T documented as of this encounter Care Teams Electric Operator Relationship Specialty Start Date End Date Annalisa Mark, PCP - General Nurse Practitioner 03/22/15 JADEN AERIAL PHOTOGRAMMETRIST [address] [place] [address] Annalisa Mark, Assigned PCP 01/22/20 2 BUSINESS AND MARKETING TEACHER AERIAL PHOTOGRAMMETRIST [address] [place] [address] Jacob Carmona Assigned OBGYN Provider 05/18/20 MD Antony [address] [place], [place] [address] documented as of this encounter
--- OUTSIDE RECORDS SUMMARY | 2022-06-06 20:57 | XMS_ITS | Encounter Summary ---
:1985 Author Organization [place] Address [address] [place], [place] [address]e. [place] [address] Care Team Providers Name Role Phone Annalisa Mark APRN NOVELTY BALLOON ASSEMBLER AND PACKER Primary Care Provider [phone] Annalisa Mark APRN NOVELTY BALLOON ASSEMBLER AND PACKER Unavailable [phone] Jacob Carmona MD Unavailable [phone] Encounter Details Date Type Department Care Team Description 12/20/2020 Travel Social History Tobacco Use Types Packs/Day [...] you attend yarsanism or Patient refused 2021 caodaism services? Do you belong to any clubs [...] documented as of this encounter Care Teams Air Hole Driller Relationship Specialty Start Date End Date Annalisa Mark, PCP - General Nurse Practitioner 03/22/15 HOLLOW TILE PARTITION ERECTOR NOVELTY BALLOON ASSEMBLER AND PACKER [address] [place] [address] Annalisa Mark, Assigned PCP 01/22/20 2 HOLLOW TILE PARTITION ERECTOR NOVELTY BALLOON ASSEMBLER AND PACKER [address] [place] [address] Jacob Carmona Assigned OBGYN Provider 05/18/20 MD Antony [address] [place], [place] [id number] documented as of this encounter
--- OUTSIDE RECORDS SUMMARY | 2022-06-06 20:57 | XMS_ITS | Encounter Summary ---
:1985 Author Organization [place] Address [facility] [place] [address] Care Team Providers Name Role Phone Annalisa Mark APRN SENIOR CIVIL ENGINEER Primary Care Provider [phone] Annalisa Mark APRN SENIOR CIVIL ENGINEER Unavailable [phone] Jacob Carmona MD Unavailable [phone] Encounter Details Date Type Department Care Team Description 11/01/2020 Orders Only [facility], [facility] [place] [phone] Social History Tobacco Use Types Packs/Day Years [...] or relatives? How often do you attend yazdanism or Patient refused 2021 yarsanism services? Do you belong to any clubs or No 10/17/2021 organizations such as yazdanism groups, unions, fraternal or athletic groups, or [...] to sleep or slept in a senior living (including now)? Education Answer Date Recorded What is the highest level of school Bachelor's degree (e.g., BA, AB, 02/15/2019 you have completed or the highest BS) degree you have received? Sex Assigned at Date Recorded Female 03/25/2021 2:01 PM CDT COVID-19 Exposure Response Date Recorded In the last month, have you been in contact with No / Unsure 10/23/2020 2:55 PM CDT someone who was confirmed or suspected to have Coronavirus / COVID-19? documented as of this encounter Plan of Treatment Not on filedocumented as of this encounter Procedures Procedure Name Priority Date/Time Associated Diagnosis Comme nts COLPOSCOPY Routine 05/26/2011 12:00 AM CDT documented in this encounter Results COLPOSCOPY (05/26/2011 12:00 AM CDT) Patient Reported PROCEDURE/MINOR SURGICAL ORD ERABLES documented in this encounter Visit Diagnoses Not on filedocumented in this encounter Additional Health Concerns Assessment Noted Time PHQ-9 Depression Total Score: 2 12/08/2019 7:04 AM CDT documented as of this encounter Care Teams Family Resource Management Professor Relationship Specialty Start Date End Date Annalisa Mark, PCP - General Nurse Practitioner 03/22/15 DENTURE CONTOUR WIRE SPECIALIST SENIOR CIVIL ENGINEER [address] [place] [address] Annalisa Mark, Assigned PCP 01/22/20 2 DENTURE CONTOUR WIRE SPECIALIST SENIOR CIVIL ENGINEER [address] [place], [place] [id number] Jacob Carmona Assigned OBGYN Provider 05/18/20 [place] [address] documented as of this encounter
--- OUTSIDE RECORDS SUMMARY | 2022-06-06 20:57 | XMS_ITS | Encounter Summary ---
:1985 Author Organization [place] Address [address] [place], [place] [address]e. [place] [address] Care Team Providers Name Role Phone Annalisa Mark APRN MANAGER PAID Primary Care Provider [phone] Annalisa Mark APRN MANAGER PAID Unavailable [phone] Jacob Carmona MD Unavailable [phone] Encounter Details Date Type Department Care Team Description 02/12/2021 Travel Social History Tobacco Use Types Packs/Day [...] or relatives? How often do you attend samaritan or Patient refused 2021 shinto services? Do you belong to any clubs or No 10/17/2021 organizations such as samaritan groups, unions, fraternal or athletic groups, or [...] been in contact with No / Unsure 02/12/2021 8:10 AM CDT someone who was confirmed or suspected to have Coronavirus / COVID-19? documented as of this encounter Plan of Treatment Not on filedocumented as of this encounter Visit Diagnoses Not on filedocumented in this encounter Additional Health Concerns Assessment Noted Time PHQ-9 Depression Total Score: 2 02/13/2021 7:02 AM CDT documented as of this encounter Care Teams Director Supply Relationship Specialty Start Date End Date Annalisa Mark, PCP - General Nurse Practitioner 03/22/15 SMOKE CONTROL SUPERVISOR MANAGER PAID [address] [place] [address] Annalisa Mark, Assigned PCP 01/22/20 2 SMOKE CONTROL SUPERVISOR MANAGER PAID [address] [place] [address] Jacob Carmona Assigned OBGYN Provider 05/18/20 MD Antony [address] [place], [place] [id number] documented as of this encounter
--- OUTSIDE RECORDS SUMMARY | 2022-06-06 20:57 | XMS_ITS | Encounter Summary ---
:1985 Author Organization [place] Address [address] [place], [place] [address]e. [place] [address] Care Team Providers Name Role Phone Annalisa Mark APRN SAP BW ARCHITECT Primary Care Provider [phone] Annalisa Mark APRN SAP BW ARCHITECT Unavailable [phone] Jacob Carmona MD Unavailable [phone] Encounter Details Date Type Department Care Team Description 01/14/2021 Travel Social History Tobacco Use Types Packs/Day [...] or relatives? How often do you attend restoration or Patient refused 2021 restoration services? Do you belong to any clubs or No 10/17/2021 organizations such as restoration groups, unions, fraternal or athletic groups, or [...] place to sleep or slept in a longterm (including now)? Education Answer Date Recorded What [...] documented as of this encounter Care Teams Child Attendant Relationship Specialty Start Date End Date Annalisa Mark, PCP - General Nurse Practitioner 03/22/15 OPERATER SAP BW ARCHITECT [address] [place] [address] Annalisa Mark, Assigned PCP 01/22/20 2 OPERATER SAP BW ARCHITECT [address] [place] [address] Jacob aCrmona Assigned OBGYN Provider 05/18/20 [place] [address] documented as of this encounter
--- OUTSIDE RECORDS SUMMARY | 2022-06-06 20:57 | XMS_ITS | Encounter Summary ---
:1985 Author Organization [place] Address [facility] [place] [address] Care Team Providers Name Role Phone Annalisa Mark APRN, CNP Primary Care Provider [phone] Annalisa Mark APRN ASSISTANT PORTFOLIO MANAGER Unavailable [phone] Jacob Carmona MD Unavailable [phone] Reason for Visit Reason Comments Medication Refill Encounter Details Date Type Department Care Team Description 10/17/2021 Refill [facility] Annalisa Mark, Medication Refill [place] [id number] [address] [phone] [place] [address] (Wo rk) Social History Tobacco [...] you attend christianity or Patient refused 2021 christian services? Do [...] place to sleep or slept in a detention (including now)? Education Answer Date Recorded What [...] / COVID-19? documented as of this encounter Miscellaneous Notes Telephone Encounter - Emani Cervantes RN - 10/18/2021 10:14 AM CDT Duplicate. RX sent yesterday. Emani Cervantes RN documented in this encounter Plan of Treatment Not on filedocumented as of this encounter Visit Diagnoses Diagnosis Generalized anxiety disorder documented in this encounter Additional Health Concerns Assessment Noted Time PHQ-9 Depression Total Score: 4 10/17/2021 10:05 AM CD T documented as of this encounter Care Teams Deckhand Fishing Vessel Relationship Specialty Start Date End Date Annalisa Mark, PCP - General Nurse Practitioner 03/22/15 TELEGRAPH EDITOR ASSISTANT PORTFOLIO MANAGER [address] [place] [address] Annalisa Mark, Assigned PCP 01/22/20 2 TELEGRAPH EDITOR ASSISTANT PORTFOLIO MANAGER [address] [place] [address] Jacob Carmona Assigned OBGYN Provider 05/18/20 [place] [address] documented as of this encounter
--- OUTSIDE RECORDS SUMMARY | 2022-06-06 20:57 | XMS_ITS | Encounter Summary ---
:1985 Author Organization [place] Address [address] [place], [place] [address]. [place] [address] Care Team Providers Name Role Phone Annalisa Mark APRN SUPERVISOR STERILE PROCESSING Primary Care Provider [phone] Annalisa Mark APRN SUPERVISOR STERILE PROCESSING Unavailable [phone] Jacob Carmona MD Unavailable [phone] Encounter Details Date Type Department Care Team Description 10/17/2021 Travel Social History Tobacco Use Types Packs/Day [...] or relatives? How often do you attend scientology or Patient refused 2021 temple services? Do you belong to any clubs or No 10/17/2021 organizations such as scientology groups, unions, fraternal or athletic groups, or [...] documented as of this encounter Care Teams Supplier Quality Manager Relationship Specialty Start Date End Date Annalisa Mark, PCP - General Nurse Practitioner 03/22/15 CUT OFF SAW OPERATOR PIPE BLANKS SUPERVISOR STERILE PROCESSING [address] [place] [address] Annalisa Mark, Assigned PCP 01/22/20 2 CUT OFF SAW OPERATOR PIPE BLANKS SUPERVISOR STERILE PROCESSING [address] [place] [address] Jacob Carmona Assigned OBGYN Provider 05/18/20 MD Antony [address] [place], [place] [id number] documented as of this encounter
--- OUTSIDE RECORDS SUMMARY | 2022-06-06 20:57 | XMS_ITS | Encounter Summary ---
:1985 Author Organization [place] Address [address] [place], [place] [address]. [place] [address] Care Team Providers Name Role Phone Annalisa Mark APRN LENS GRINDER Primary Care Provider [phone] Annalisa Mark APRN LENS GRINDER Unavailable [phone] Jacob Carmona MD Unavailable [phone] Encounter Details Date Type Department Care Team Description 10/16/2021 Travel Social History Tobacco Use Types Packs/Day [...] or relatives? How often do you attend tenriism or Patient refused 2021 quaker services? Do you belong to any clubs or No 10/17/2021 organizations such as tenriism groups, unions, fraternal or athletic groups, or [...] been in contact with No / Unsure 10/16/2021 9:59 PM CDT someone who was confirmed or suspected to have Coronavirus / COVID-19? documented as of this encounter Plan of Treatment Not on filedocumented as of this encounter Visit Diagnoses Not on filedocumented in this encounter Additional Health Concerns Assessment Noted Time PHQ-9 Depression Total Score: 2 03/25/2021 2:42 PM CDT documented as of this encounter Care Teams Battery Checker Relationship Specialty Start Date End Date Annalisa Mark, PCP - General Nurse Practitioner 03/22/15 RIG MANAGER LENS GRINDER [address] [place] [address] Annalisa Mark, Assigned PCP 01/22/20 2 RIG MANAGER LENS GRINDER [address] [place] [address] Jacob Carmona Assigned OBGYN Provider 05/18/20 MD Antony [address] [place], [place] [id number] documented as of this encounter
--- OUTSIDE RECORDS SUMMARY | 2022-06-06 20:57 | XMS_ITS | Encounter Summary ---
:1985 Author Organization [place] Address [address] [place] [address] Care Team Providers Name Role Phone Deedee, Annalisa Peacock APRN CALL CENTER RECRUITER Primary Care Provider [phone] Annalisa Mark APRN CALL CENTER RECRUITER Unavailable [phone] Jacob Carmona MD Unavailable [phone] Reason for Visit Reason Comments Covid Concern Pos covid test 11/07 UTI Ear Problem Encounter Details Date Type Department Care Team Description 11/12/2021 Office Visit [facility] Mary Lou Bird, Infec tive otitis externa, right (Primary Dx); Urgent Care Patrica quan PA-C Dysuria; [address] [address] [facility] Acute cystitis with hematuri a [facility] [address] [facility] [phone] [place] [address] Social History Tobacco Use Types Packs/Day Years [...] or relatives? How often do you attend jewish or Patient refused 2021 yarsanism services? Do you belong to any clubs or No 10/17/2021 organizations such as jewish groups, unions, fraternal or athletic groups, or [...] place to sleep or slept in a fpc (including now)? Education Answer Date Recorded What [...] Sign Reading Time Taken Comments Blood Pressure 100/60 11/12/2021 12:35 PM CDT Pulse 88 11/12/2021 12:35 PM CDT Temperature 36.7 ??C (98 ??F) 11/12/2021 12:35 PM CDT Respiratory Rate 16 11/12/2021 12:35 PM CDT Oxygen Saturation 100% 11/12/2021 12:35 PM CDT Inhaled Oxygen Concentration - - Weight 49.9 kg (110 lb) 11/12/2021 12:35 PM CDT Height - - Body Mass Index 19.49 10/17/2021 9:19 AM CDT documented in this encounter Progress Notes Mary Lou Bird PA-C - 11/12/2021 12:20 PM CDT Assessment & Plan: ICD-10-CM 1. Infective otitis externa, right H60.391 ciprofloxacin-dexamethasone (CIPRODEX) 0.3-0.1 % otic suspension 2. Dysuria R30.0 UA Macro with Reflex to Micro and Culture - lab collect Urine Microscopic Urine Culture 3. Acute cystitis with hematuria N30.01 sulfamethoxazole-trimethoprim (BACTRIM DS) 800-160 MG tablet Plan/Clinical Decision Making: Right ear canal with painful papule with mild canal erythema. Treated with Ciprodex. UA WBC 50-100. Will treat with course of Bactrim DS. Rest, fluids. At the end of the encounter, I discussed results, diagnosis, medications. Discussed red flags for immediate return to clinic/ER, as well as indications for follow up if no improvement. Patient understood and agreed to plan. Patient was stable for discharge. Mary Lou Bird PA-C on 11/12/2021 at 12:52 PM Subjective: HPI: Tameka is a 36 year old female who presents to clinic today for the following health issues: Chief Complaint Patient presents with ??? Covid Concern Pos covid test 11/07 ??? UTI ??? Ear Problem HPI Patient had positive Covid test on 11/07. Symptoms started on 11/[address] No fever for the past several days. Having cough. No SOB or wheezing. Mild runny nose, mild congestion. Had 1-2 times upset stomach, better now. Not taking anything for the past several days for symptoms. Patient having pressure when urinating, having some urgency and frequency. No burning or pain. That started today. Right pain x 1-2 days. Saw some blood from right ear yesterday. Had a small amount. No decrease in hearing. History obtained from the patient. Review of Systems No rashes. Patient Active Problem List Diagnosis ??? CARDIOVASCULAR SCREENING; LDL GOAL LESS THAN 160 ??? H/O LEEP ??? History of OCD (obsessive compulsive disorder) ??? Generalized anxiety disorder Past Medical History: Diagnosis Date ??? Allergic [...] ??? Wounds and injuries fall in 09/03/16 Social History Tobacco Use ??? Smoking status: Never Smoker ??? Smokeless tobacco: Never Used Substance Use Topics ??? Alcohol use: Not Currently Alcohol/week: 0.0 standard drinks Comment: Occaisional Objective: Vitals: 11/12/21 1235 BP: 100/60 BP Location: Right arm Patient Position: Chair Cuff Size: Adult Regular Pulse: 88 Resp: 16 Temp: 98 ??F (36.7 ??C) TempSrc: Oral SpO2: 100% Weight: 49.9 kg (110 lb) Physical Exam EXAM: Pleasant, alert, appropriate appearance. NAD. Head Exam: Normocephalic, atraumatic. Eye Exam: non icteric/injection. Ear Exam: TMs garcia without bulging. Right canal with a little blood and painful papular lesion inside canal. Pain pulling on pinna. Nose Exam: Normal external nose. OroPharynx Exam: Moist mucous membranes. No erythema, pharynx without exudate or hypertrophy. Neck/Thyroid Exam: No LAD. Chest/Respiratory Exam: CTAB. Cardiovascular Exam: RRR. No murmur or rubs. ABD: soft, Non-tender, Results: Results for orders placed or performed in visit on 11/12/21 UA Macro with Reflex to Micro and Culture - lab collect Status: Abnormal Specimen: Urine, Midstream Result Value Ref Range Color Urine Yellow Colorless, Straw, Light Yellow, Yellow Appearance Urine Clear Clear Glucose Urine Negative Negative mg/dL Bilirubin Urine Negative Negative Ketones Urine Negative Negative mg/dL Specific [place] Urine <=1.005 1.003 - 1.035 Blood Urine Trace (A) Negative pH Urine 6.0 5.0 - 7.0 Protein Albumin Urine Negative Negative mg/dL Urobilinogen Urine 0.2 0.2, 1.0 E.U./dL Nitrite Urine Negative Negative Leukocyte Esterase Urine Small (A) Negative Urine Microscopic Status: Abnormal Result Value Ref Range Bacteria Urine Few (A) None Seen /HPF RBC Urine 0-2 0-2 /HPF /HPF WBC Urine 50-100 (A) 0-5 /HPF /HPF Squamous Epithelials Urine Few (A) None Seen /LPF documented in this encounter Plan of Treatment Not on filedocumented as of this encounter Procedures Procedure Name Priority Date/Time Associated Comments Diagnosis URINE MICROSCOPIC Routine 11/12/2021 12:46 Dysuria Result s for this PM CDT procedure are i n the results section. UA MACROSCOPIC WITH Routine 11/12/2021 12:46 Dysuria Resu lts for this REFLEX TO MICRO AND PM CDT procedur e are in CULTURE the results section. URINE CULTURE Routine 11/12/2021 12:46 Dysuria Results fo r this PM CDT procedure are i n the results section. documented in this encounter Results Urine Culture (11/12/2021 12:46 PM CDT) [facility] Method Time Signature Culture <10,000 CFU/mL SHERI 11/14/2021 [facility] IDD Urogenital 6:06 AM CDT LABORATORY roberto Specimen Anatomical Collection Method Collection Time Receive d Time (Source) Location / / Volume Laterality Urine MID-STREAM URINE Non-blood 11/12/2021 12:46 04 022 1:05 SPECIMEN / Unknown Collection / PM CDT PM CDT Unknown Wojciech Banegas PA-C LAB - MICRO GENERAL ORDERABL ES Performing Organization Address City/[facility]/ZIP Code Phon e Number UU IDD LABORATORY [facility] [place] [address] Diag. Lab [address] [facility], Room [address]297 (ABNORMAL) Urine Microscopic (11/12/2021 12:46 PM CDT) [facility] Method Time Signature Bacteria Urine Few (A) None Seen SHERI 11/12/2021 [facility] LABORATORY /HPF 1:05 PM CDT RBC Urine 0-2 0-2 /HPF SHERI 11/12/2021 [facility] LABORATORY /HPF 1:05 PM CDT WBC Urine 50-100 0-5 /HPF SHERI 11/12/2021 [facility] LAB[facility]ATORY (A) /HPF 1:05 PM CDT Squamous Few (A) None Seen SHERI 11/12/2021 [facility] LABORATORY Epithelials /LPF 1:05 PM CDT Urine Specimen Anatomical Collection Method Collection Time Receive d Time (Source) Location / / Volume Laterality Urine MID-STREAM URINE Non-blood 11/12/2021 12:46 022 SPECIMEN / Unknown Collection / PM CDT 12:46 PM CDT Unknown Wojciech Banegas PA-C LAB - URINE ORDERABLES Performing Organization Address City/[facility]/ZIP Code Phon [place] [address] Lab [address] [facility] Lab (no room number, 1st floor of clinic) [place] [address], [phone] [facility] [address] [facility] Lab (no room number, 1st floor of clinic) (ABNORMAL) UA Macro with Reflex to Micro and Culture - lab collect (11/12/2021 12:46 PM CDT) [facility] Method Time Signature Color Urine Yellow Colorless, 11/12/2021 LABORATORY Straw, Light 12:50 PM Yellow, CDT Yellow Appearance Urine Clear Clear 11/12/2021 LV LABORATOR Y 12:50 PM CDT Glucose Urine Negative Negative 11/12/2021 LABORATORY mg/dL 12:50 PM CDT Bilirubin Urine Negative Negative 11/12/2021 LABORATORY 12:50 PM CDT Ketones Urine Negative Negative 11/12/2021 LABORATORY mg/dL 12:50 PM CDT Specific [place] <=1.005 1.003 - 11/12/2021 LABORATOR Y Urine 1.035 12:50 PM CDT Blood Urine Trace (A) Negative 11/12/2021 LABORATORY 12:50 PM CDT pH Urine 6.0 5.0 - 7.0 11/12/2021 LABORATORY 12:50 PM CDT Protein Albumin Negative Negative 11/12/2021 LABORATORY Urine mg/dL 12:50 PM CDT Urobilinogen 0.2 0.2, 1.0 11/12/2021 LABORATORY Urine E.U./dL 12:50 PM CDT Nitrite Urine Negative Negative 11/12/2021 LABORATORY 12:50 PM CDT Leukocyte Small (A) Negative 11/12/2021 LABORATORY Esterase Urine 12:50 PM CDT Specimen Anatomical Collection Method Collection Time Receive d Time (Source) Location / / Volume Laterality Urine MID-STREAM URINE Non-blood 11/12/2021 12:46 022 SPECIMEN / Unknown Collection / PM CDT 12:46 PM CDT Unknown Wojciech Banegas PA-C LAB - URINE ORDERABLES Performing Organization Address City/State/ZIP Code [place] [address] Lab [address] [facility] Lab (no room number, 1st floor of clinic) [place] [address], [phone] [facility] [address] [facility] Lab (no room number, 1st floor of clinic) documented in this encounter Visit Diagnoses Diagnosis Infective otitis externa, right - Primar y Dysuria Acute cystitis with hematuria Acute cystitis documented in this encounter Additional Health Concerns Assessment Noted Time PHQ-9 Depression Total Score: 4 10/17/2021 10:05 AM CD T documented as of this encounter Care Teams Sanitation Worker Cleaning Equipment Relationship Specialty Start Date End Date Annalisa Mark, PCP - General Nurse Practitioner 03/22/15 FASHION JOURNALIST CALL CENTER RECRUITER [address] [place] [address] Annalisa Mark, Assigned PCP 01/22/20 2 FASHION JOURNALIST CALL CENTER RECRUITER [address] [place] [address] Jacob Carmona Assigned OBGYN Provider 05/18/20 MD Oj Hardy [address] [place], [place] [id number] documented as of this encounter
--- OUTSIDE RECORDS SUMMARY | 2022-06-06 20:57 | XMS_ITS | Encounter Summary ---
:1985 Author Organization [facility] Address [address] [facility] [place] [address] Care Team Providers Name Role Phone Annalisa Mark APRN, CNP Primary Care Provider [phone] Annalisa Mark APRN SENIOR ACCOUNT MANAGER Unavailable [phone] Jacob Carmona MD Unavailable [phone] Reason for Visit Reason Comments Cellulitis ear Encounter Details Date Type Department Care Team Description 12/20/2020 Office Visit [facility] Geovani Prisca Other inf ective acute Urgent Care Patrica Aldana APRN CNP otitis externa of left [address] [address] ear (Primary Dx) [place], [place] [address] [address] [place], [place] [phone] [id number] Social History Tobacco Use Types Packs/Day Years [...] you attend zoroastrian or Patient refused 2021 anabaptism services? Do you belong to any clubs [...] Sign Reading Time Taken Comments Blood Pressure 110/60 12/20/2020 12:12 PM CDT Pulse 82 12/20/2020 12:12 PM CDT Temperature 36.8 ??C (98.3 ??F) 12/20/2020 12:12 PM CDT Respiratory Rate 16 12/20/2020 12:12 PM CDT Oxygen Saturation 99% 12/20/2020 12:12 PM CDT Inhaled Oxygen Concentration - - Weight 50.9 kg (112 lb 3.2 oz) 12/20/2020 12:12 PM CDT Height - - Body Mass Index 19.72 11/13/2020 8:24 AM CDT documented in this encounter Patient Instructions Patient InstructionsPrisca Olivo APRN CNP - 12/20/2020 12:05 PM CDT Images from the original note were not included. Patient Education External Ear Infection (Adult) External otitis (also called ???swimmer???s ear?? ) is an infection in the ear canal. It's often caused by bacteria or fungus. It can occur a few days after water gets trapped in the ear canal (from swimming or bathing). It can also occur after cleaning too deeply in the ear canal with a cotton swab or other object. Sometimes, hair care products get into the ear canal and cause this problem. Symptoms can include pain, fever, itching, redness, drainage, or swelling of the ear canal. Temporary hearing loss may also occur. Home care ?? Don't try to clean the ear canal. This can push pus and bacteria deeper into the canal. ?? Use prescribed ear drops as directed. These help reduce swelling and fight the infection. If an ear wick was placed in the ear canal, apply drops right onto the end of the wick. The wick will draw the medicine into the ear canal even if it's swollen closed. ?? A cotton ball may be loosely placed in the outer ear to absorb any drainage. ?? You may use ymbf-csy-frcbnnh medicines to control pain as directed by the healthcare provider, unless another medicine??was prescribed. Talk with your provider before using these medicines if you have chronic liver or kidney disease or ever had a stomach ulcer or digestive tract bleeding. ?? Don't allow water to get into your ear when bathing. Also don't swim until the infection has cleared. Prevention ?? Keep your ears dry. This helps lower the risk of infection. Dry your ears with a towel or unhairing inspector after getting wet. Also, use ear plugs when swimming. ?? Don't stick any objects in the ear to remove wax. ?? Talk with your provider about using ear drops to prevent swimmer's ear in case you feel water trapped in your ear canal. You can get these drops over the counter at most drugstores. They work by removing water from the ear canal. Follow-up care Follow up with your healthcare provider in 1 week, or as advised. When to seek medical advice Call your healthcare provider right away if any of these occur: ?? Ear pain becomes worse or doesn???t improve after 3 days of treatment ?? Redness or swelling of the outer ear occurs or gets worse ?? Headache ?? Fever of 100.4??F (38??C) or higher, or as directed by your healthcare provider Call 911 Call 911 or get immediate medical care if any of the following occur: ?? Seizure ?? Unusual drowsiness or confusion ?? Unusual painful or stiff neck [email or web address] last reviewed this educational content on 02/25/2020 ?? [id number] [employer]. All rights reserved. This information is not intended as a substitute for professional medical care. Always follow your healthcare professional's instructions. documented in this encounter Progress Notes Prisca Olivo, SHOP WELDER SENIOR ACCOUNT MANAGER - 12/20/2020 12:05 PM CDT SUBJECTIVE: Tameka Grissom is a 35 year old female presenting with a chief complaint of Chief Complaint Patient presents with ??? Cellulitis ear She is an established patient of [facility]. Pain in left ear canal for the past 2 months off and on, saw ENT when it started 2 months ago Tried hydrocort drops for a while but didn't go away completely, tried antibiotic cream as far in her ear as she could go for past few days, didn't help it go away, worried it might be cellulitis No fever or other ill symptoms, did have mild VALDEZ migraine yesterday she gets sometimes when doesn't drink enough water. 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 Past Medical History: Diagnosis Date ??? Allergic [...] ??? Wounds and injuries fall in 09/03/16 Family History Problem Relation Age of Onset ??? Arthritis Mother degenerative in knees ??? Lipids Mother ??? Alcohol/Drug Mother ??? Lipids Father ??? Family History Negative Sister ??? Family History Negative Brother ??? Breast Cancer Other paternal aunt ??? Cystic Fibrosis Son Current Outpatient Medications Medication Sig Dispense Refill ??? Calcium 600-400 MG-UNIT CHEW ??? citalopram (CELEXA) 10 MG tablet Take 5 mg orally every day for 2 weeks, increase to 10 mg orally every day for final dose 30 tablet 1 ??? norgestim-eth estrad triphasic (ORTHO TRI-CYCLEN) 0.18/0.215/0.25 MG-35 MCG tablet Take 1 tabletby mouth daily 84 tablet 3 Social History Tobacco Use ??? Smoking status: Never Smoker ??? Smokeless tobacco: Never Used Substance Use Topics ??? Alcohol use: Yes Alcohol/week: 0.0 standard drinks Comment: Occaisional OBJECTIVE BP 110/60 (BP Location: Right arm, Patient Position: Chair, Cuff Size: Adult Regular) Pulse 82 Temp 98.3 ??F (36.8 ??C) (Oral) Resp 16 Wt 50.9 kg (112 lb 3.2 oz) SpO2 99% No BMI 19.72 kg/m?? Physical Exam Exam: Constitutional: healthy, alert and no distress Head: Normocephalic. No masses, lesions, tenderness or abnormalities Neck: Neck supple. Mild postauricular adenopathy on left vs mild edema-pt rubbing this and checking/poking it nearly constantly with her fingers during this visit ENT: left canal excoriated and erythematous on outer half, no drng, TM's normal bilaterally, no rhinorrhea, mucous membranes moist, no tonsillar hypertrophy pharynx without erythema or exudate no sinus tenderness to percussion Cardiovascular: No abnormal color and extremities warm Respiratory: Respiratory rate regular and breathing easily Musculoskeletal: extremities normal- no gross deformities noted Skin: no suspicious lesions or rashes Neurologic: mentation and speech intact Labs: No results found for this or any previous visit (from the past 24 hour(s)). X-Ray was not done. ASSESSMENT/PLAN: ICD-10-CM 1. Other infective acute otitis externa of left ear H60.392 trimethoprim- polymyxin b (POLYTRIM) 67133-2.1 UNIT/ML-% ophthalmic solution Discussed in detail all her questions answered, Treat with topical antibiotics for 4-7 days Followup: If not improving or if condition worsens, follow up with your Primary Care Provider See patient instructions Prisca Olivo APRN SENIOR ACCOUNT MANAGER documented in this encounter Plan of Treatment Not on filedocumented as of this encounter Visit Diagnoses Diagnosis Other infective acute otitis externa of left ear - Primary documented in this encounter Additional Health Concerns Assessment Noted Time PHQ-9 Depression Total Score: 2 11/14/2020 7:03 AM CDT documented as of this encounter Care Teams Cell Tester Relationship Specialty Start Date End Date Annalisa Mark, PCP - General Nurse Practitioner 03/22/15 SHOP WELDER SENIOR ACCOUNT MANAGER [address] [place] [address] Annalisa Mark, Assigned PCP 01/22/20 2 SHOP WELDER SENIOR ACCOUNT MANAGER [address] [place] [address] Jacob Carmona Assigned OBGYN Provider 05/18/20 MD Antony [address] [place] [address] documented as of this encounter
--- OUTSIDE RECORDS SUMMARY | 2022-06-06 20:57 | XMS_ITS | Encounter Summary ---
:1985 Author Organization [facility] Address [facility] [place] [address] Care Team Providers Name Role Phone Deedee Annalisa Peacock APRN SUPERVISOR CORE DRILLING Primary Care Provider [phone] Annalisa Mark APRN SUPERVISOR CORE DRILLING Unavailable Jacob Carmona MD Unavailable [phone] Leonor Burgos MD Unavailable [phone] Annalisa Mark APRN SUPERVISOR CORE DRILLING Unavailable Reason for Visit Reason Comments Medication Refill Encounter Details Date Type Department Care Team Description 09/12/2021 Refill [facility] Jaron Carmona, Medication Refill Deborah ROLLINS [address] [place] [address] [address] [place] [address] [phone] Social History Tobacco Use Types Packs/Day Years [...] or relatives? How often do you attend cheondoism or Patient refused 2021 jew services? Do you belong to any clubs or No 10/17/2021 organizations such as cheondoism groups, unions, fraternal or athletic groups, or [...] with No / Unsure 08/29/2021 2:17 PM MORTGAGE LOAN COMPUTATION CLERK someone who was confirmed or suspected to [...] documented as of this encounter Care Teams Mold Closer Helper Relationship Specialty Start Date End Date Annalisa Mark, PCP - General Nurse Practitioner 03/22/15 MALTED MILK MASHER SUPERVISOR CORE DRILLING [address] [place] [address] Annalisa Mark, Assigned PCP 01/22/20 2 MALTED MILK MASHER SUPERVISOR CORE DRILLING [address] [place] [address] Jacob Carmona Assigned OBGYN Provider 05/18/20 MD [place] [address] Leonor Burgos Assigned PCP 02/22/22 2 MD [place] [address] [place] [address] Annalisa Mark, Assigned PCP 05/17/22 MALTED MILK MASHER [facility] [address] [place] [address] documented as of this encounter
--- OUTSIDE RECORDS SUMMARY | 2022-06-06 20:57 | XMS_ITS | Encounter Summary ---
:1985 Author Organization [facility] Address [address] [place], [place] [address]. [place] [address] Care Team Providers Name Role Phone Annalisa Mark APRN BAG 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 HELPER Primary Care Provider [phone] Annalisa Mark APRN BAG 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 HELPER Unavailable [phone] Jacob Carmona MD Unavailable [phone] Encounter Details Date Type Department Care Team Description 03/25/2021 Travel Social History Tobacco Use Types Packs/Day [...] or relatives? How often do you attend episcopal or Patient refused 2021 scientology services? Do you belong to any clubs or No 10/17/2021 organizations such as episcopal groups, unions, fraternal or athletic groups, or [...] documented as of this encounter Care Teams Client Evaluator Relationship Specialty Start Date End Date Annalisa Mark, PCP - General Nurse Practitioner 03/22/15 R&D ENGINEER BAG 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 HELPER [address] [place] [address] Annalisa Mark, Assigned PCP 01/22/20 2 R&D ENGINEER BAG 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 HELPER [address] [place] [address] Jacob Carmona Assigned OBGYN Provider 05/18/20 MD Antony [address] [place], [place] [id number] documented as of this encounter
--- OUTSIDE RECORDS SUMMARY | 2022-06-06 20:57 | XMS_ITS | Encounter Summary ---
:1985 Author Organization [place] Address [facility] [place] [address] Care Team Providers Name Role Phone Annalisa Mark APRN, CNP Primary Care Provider [phone] Annalisa Mark APRN, CNP Unavailable [phone] Jacob Carmona MD Unavailable [phone] Reason for Visit Reason Comments Depression med check Anxiety Encounter Details Date Type Department Care Team Description 02/12/2021 Office Visit [facility] Annalisa Mark anxiety [facility] [place] JADEN Peacock CNP disorder [address] [place] [phone] Social History Tobacco Use Types Packs/Day Years [...] or relatives? How often do you attend bahai or Patient refused 2021 uatsdin services? Do you belong to any clubs or No 10/17/2021 organizations such as bahai groups, unions, fraternal or athletic groups, or [...] place to sleep or slept in a fdc (including now)? Education Answer Date Recorded What [...] Sign Reading Time Taken Comments Blood Pressure 113/67 02/12/2021 8:27 AM CDT Pulse 90 02/12/2021 8:27 AM CDT Temperature 36.9 ??C (98.4 ??F) 02/12/2021 8:27 AM CDT Respiratory Rate 14 02/12/2021 8:27 AM CDT Oxygen Saturation - - Inhaled Oxygen Concentration - - Weight 49.9 kg (110 lb) 02/12/2021 8:27 AM CDT Height - - Body Mass Index 19.33 11/13/2020 8:24 AM CDT documented in this encounter Progress Notes Annalisa Mark APRN CNP - 02/12/2021 8:30 AM CDT Assessment & Plan Generalized anxiety disorder: MALIHA 7 score of 8, PHQ 9 of 2, denies thought of harming self or others. Having increase in anxiety. Will start on citalopram, has taken this in the past and tolerated well, reviewed risks and benefits. - citalopram (CELEXA) 10 MG tablet; Take 5 mg orally every day for 2 weeks, increase to 10 mg orallyevery day for final dose Return in about 6 weeks (around 03/26/2021) for Routine Visit, anxiety check in 6 weeks virtual OK. Annalisa Mark APRN CNP [facility] DIONNE English is a 35 year old who presents for the following health issues History of Present Illness Mental Health Follow-up: Patient presents to follow-up on Anxiety. Patient's anxiety since last visit has been: Better The patient is not having other symptoms associated with anxiety. Any significant life events: No Patient is feeling anxious or having panic attacks. Patient has no concerns about alcohol or drug use. 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 Continues to have excessive worrying usually about medical issues. Did not start citalopram that was prescribed in October, does not like to take medication. MALIHA 7 score of 8 today, was 4 in 10/2020. PHQ 9 of 2. Review of Systems CONSTITUTIONAL: NEGATIVE for fever, chills, change in weight RESP: NEGATIVE for significant cough or SOB CV: NEGATIVE for chest pain, palpitations or peripheral edema PSYCHIATRIC: see HPI Objective BP 113/67 (BP Location: Right arm, Patient Position: Chair, Cuff Size: Adult Regular) Pulse 90 Temp 98.4 ??F (36.9 ??C) (Oral) Resp 14 Wt 49.9 kg (110 lb) BMI 19.33 kg/m?? Body mass index is 19.33 kg/m??. Physical Exam GENERAL: healthy, alert and no distress RESP: lungs clear to auscultation - no rales, rhonchi or wheezes CV: regular rate and rhythm, normal S1 S2, PSYCH: mentation appears normal, affect normal/bright documented in this encounter Plan of Treatment Not on filedocumented as of this encounter Visit Diagnoses Diagnosis Generalized anxiety disorder documented in this encounter Additional Health Concerns Assessment Noted Time PHQ-9 Depression Total Score: 2 02/13/2021 7:02 AM CDT documented as of this encounter Care Teams Corporate Travel Agent Relationship Specialty Start Date End Date Annalisa Mark, PCP - General Nurse Practitioner 03/22/15 MULTIFOCAL LENS INSPECTOR WASHER OFF [address] [place] [address] Annalisa Mark, Assigned PCP 01/22/20 2 MULTIFOCAL LENS INSPECTOR WASHER OFF [address] [place] [address] Jacob Carmona Assigned OBGYN Provider 05/18/20 MD Antony [address] [place] [address] documented as of this encounter
--- OUTSIDE RECORDS SUMMARY | 2022-06-06 20:57 | XMS_ITS | Encounter Summary ---
:1985 Author Organization [place] Address [address] [place], [place] [address]. [place] [address] Care Team Providers Name Role Phone Annalisa Mark APRN CLIENT SERVICES DIRECTOR Primary Care Provider [phone] Annalisa Mark APRN CLIENT SERVICES DIRECTOR Unavailable [phone] Jacob Carmona MD Unavailable [phone] Encounter Details Date Type Department Care Team Description 11/12/2021 Travel Social History Tobacco Use Types Packs/Day [...] or relatives? How often do you attend holiness or Patient refused 2021 orthodoxy services? Do you belong to any clubs or No 10/17/2021 organizations such as holiness groups, unions, fraternal or athletic groups, or [...] documented as of this encounter Care Teams Email Marketing Assistant Relationship Specialty Start Date End Date Annalisa Mark, PCP - General Nurse Practitioner 03/22/15 TRAINING AND DEVELOPMENT ASSISTANT CLIENT SERVICES DIRECTOR [address] [place] [address] Annalisa Mark, Assigned PCP 01/22/20 2 TRAINING AND DEVELOPMENT ASSISTANT CLIENT SERVICES DIRECTOR [address] [place] [address] Jacob Carmona Assigned OBGYN Provider 05/18/20 MD Antony [address] [place], [place] [id number] documented as of this encounter
--- OUTSIDE RECORDS SUMMARY | 2022-06-06 20:57 | XMS_ITS | Encounter Summary ---
:1985 Author Organization [place] Address [facility] [place] [address] Care Team Providers Name Role Phone Annalisa Mark APRN NURSE TECH Primary Care Provider [phone] Annalisa Mark APRN NURSE TECH Unavailable [phone] Jacob Carmona MD Unavailable [phone] Encounter Details Date Type Department Care Team Description 11/01/2020 Orders Only [facility] Consuelo Duran, [facility] [phone] [phone] Social History Tobacco Use Types Packs/Day [...] you attend samaritan or Patient refused 2021 islam services? Do [...] Name Priority Date/Time Associated Diagnosis Comme nts HC COLP CERVIX/UPPER Routine 07/07/2011 12:00 AM SENIOR HOUSEKEEPER VAGINA W LOOP ELEC BX CERVIX documented in this encounter Results COLP CERVIX/UPPER VAGINA W LOOP ELEC BX CERVIX (07/07/2011 12:00 AM SENIOR HOUSEKEEPER) Patient Reported PROCEDURES documented in this encounter Visit Diagnoses Not on filedocumented in this encounter Additional Health Concerns Assessment Noted Time PHQ-9 Depression Total Score: 2 12/08/2019 7:04 AM CDT documented as of this encounter Care Teams Survey Field Technician Relationship Specialty Start Date End Date Annalisa Mark, PCP - General Nurse Practitioner 03/22/15 LINOTYPE MECHANIC NURSE TECH [address] [place] [address] Annalisa Mark, Assigned PCP 01/22/20 2 LINOTYPE MECHANIC NURSE TECH [address] [place] [address] Jacob Carmona Assigned OBGYN Provider 05/18/20 [place] [address] documented as of this encounter
--- OUTSIDE RECORDS SUMMARY | 2022-06-06 20:57 | XMS_ITS | Encounter Summary ---
:1985 Author Organization [place] Address [address] [place], [place] [address]. [place] [address] Care Team Providers Name Role Phone Annalisa Mark APRN FLYING SHEAR OPERATOR Primary Care Provider [phone] Annalisa Mark APRN FLYING SHEAR OPERATOR Unavailable [phone] Jacob Carmona MD Unavailable [phone] Encounter Details Date Type Department Care Team Description 11/13/2020 Travel Social History Tobacco Use Types Packs/Day [...] you attend episcopalian or Patient refused 2021 latter day services? Do you belong to any clubs [...] been in contact with No / Unsure 11/13/2020 8:03 AM CDT someone who was confirmed or suspected to have Coronavirus / COVID-19? documented as of this encounter Plan of Treatment Not on filedocumented as of this encounter Visit Diagnoses Not on filedocumented in this encounter Additional Health Concerns Assessment Noted Time PHQ-9 Depression Total Score: 2 11/14/2020 7:03 AM CDT documented as of this encounter Care Teams Mainspring Strip Inspector Relationship Specialty Start Date End Date Annalisa Mark, PCP - General Nurse Practitioner 03/22/15 UI UX ENGINEER FLYING SHEAR OPERATOR [address] [place] [address] Annalisa Mark, Assigned PCP 01/22/20 2 UI UX ENGINEER FLYING SHEAR OPERATOR [address] [place] [address] Jacob Carmona Assigned OBGYN Provider 05/18/20 MD Antony [address] [place], [place] [id number] documented as of this encounter
--- OUTSIDE RECORDS SUMMARY | 2022-06-06 20:57 | XMS_ITS | Encounter Summary ---
:1985 Author Organization [facility] Address [address] [place] [address] Care Team Providers Name Role Phone Annalisa Mark APRN, CNP Primary Care Provider [phone] Annalisa Mark APRN, CNP Unavailable [phone] Jacob Carmona MD Unavailable [phone] Reason for Visit Reason Comments Physical PE---pap UTD---pt is fasting this AM Abdominal Pain abdominal pain x2-3 months, c/o lower Encounter Details Date Type Department Care Team Description 11/13/2020 Office Visit [facility] Annalisa Mark Routine ge neral medical examination at a health care facility (Primary Dx); [facility] [place] JADEN Peacock CNP Generalized anxiety disorder; [address] [place] [address] Fur[place]cle [place] [id number] Social History Tobacco Use Types Packs/Day Years [...] you attend mandaen or Patient refused 2021 gnosticism services? Do you belong to any clubs [...] Sign Reading Time Taken Comments Blood Pressure 102/69 11/13/2020 8:24 AM CDT Pulse 93 11/13/2020 8:24 AM CDT Temperature 36.9 ??C (98.5 ??F) 11/13/2020 8:24 AM CDT Respiratory Rate 16 11/13/2020 8:24 AM CDT Oxygen Saturation 99% 11/13/2020 8:24 AM CDT Inhaled Oxygen Concentration - - Weight 49.9 kg (110 lb) 11/13/2020 8:24 AM CDT Height 160.7 cm (5' 3.25) 11/13/2020 8:24 AM CDT Body Mass Index 19.33 11/13/2020 8:24 AM CDT documented in this encounter Patient Instructions Patient InstructionsRajani Coronado, EN - 11/13/2020 8:25 AM CDT Preventive Health Recommendations Female Ages [...] this encounter Progress Notes Annalisa Mark APRN CHRISTIAN SCIENCE NURSE - 11/13/2020 8:25 AM CDT SUBJECTIVE: CC: Tameka Grissom is an 35 year old woman who presents for preventive health visit. Patient has been advised of split billing requirements and indicates understanding: Yes Healthy Habits: Getting at least 3 servings of Calcium per day: NO Bi-annual eye exam: Yes Dental care twice a year: NO Sleep apnea or symptoms of sleep apnea: None Diet: Regular (no restrictions) Frequency of exercise: None Taking medications regularly: Yes Medication side effects: Not applicable PHQ-2 Total Score: 0 Additional concerns today: No Chest pain: Increased with stress when trying to meet a deadline, otherwise not present.. Anxiety: PHQ 9 of 2, MALIHA 7 of 4. Has increased stress with working at home and having her 2 childrenat home as well. Weight loss: Decrease of 6 lbs in about 6 weeks. Today's PHQ-2 Score: PHQ-2 (??1998 Pfizer) 11/13/2020 Q1: Little interest or pleasure in doing things 0 Q2: Feeling down, depressed or hopeless 0 PHQ-2 Score 0 Q1: Little interest or pleasure in doing things Not at all Q2: Feeling down, depressed or hopeless Not at all PHQ-2 Score 0 Abuse: Current or Past (Physical, Sexual or Emotional) - No Do you feel safe in your environment? Yes Have you ever done Advance Care Planning? (For example, a Health Directive, POLST, or a discussion with a medical provider or your loved ones about your wishes): No, advance care planning information given to patient to review. Patient plans to discuss their wishes with loved ones or provider. Social History Tobacco Use ??? Smoking status: Never Smoker ??? Smokeless tobacco: Never Used Substance Use Topics ??? Alcohol use: Yes Alcohol/week: 0.0 standard drinks Comment: Occaisional If you drink alcohol do you typically have >3 drinks per day or >7 drinks per week? No Alcohol Use 11/13/2020 Prescreen: >3 drinks/day or >7 drinks/week? No No flowsheet data found. Reviewed orders with patient. Reviewed health maintenance and updated orders accordingly - Yes Lab work is in process BP Readings from Last 3 Encounters: 11/13/20 102/69 10/23/20 94/54 10/11/20 112/78 Wt Readings from Last 3 Encounters: 11/13/20 49.9 kg (110 lb) 10/23/20 51.8 kg (114 lb 4.8 oz) 10/11/20 52.6 kg (116 lb) Patient Active Problem List Diagnosis ??? Mild major depression (H) ??? CARDIOVASCULAR SCREENING; LDL GOAL LESS THAN 160 ??? H/O LEEP ??? History of OCD (obsessive compulsive disorder) ??? Generalized anxiety disorder ??? state Past Surgical History: Procedure Laterality Date ??? COLPOSCOPY CERVIX, LOOP ELECTRODE BIOPSY, COMBINED 04/24/09 PEDRO I & II ??? CRYOTHERAPY 04/04/08, 12/14/08 ??? ZZC NONSPECIFIC PROCEDURE rt brest biopsy,benign Social History Tobacco Use ??? Smoking status: Never Smoker ??? Smokeless tobacco: Never Used Substance Use Topics ??? Alcohol use: Yes Alcohol/week: 0.0 standard drinks Comment: Occaisional Family History Problem Relation Age of Onset ??? Arthritis Mother degenerative in knees ??? Lipids Mother ??? Alcohol/Drug Mother ??? Lipids Father ??? Family History Negative Sister ??? Family History Negative Brother ??? Breast Cancer Other paternal aunt ??? Cystic Fibrosis Son Current Outpatient Medications Medication Sig Dispense Refill ??? Calcium 600-400 MG-UNIT CHEW ??? norgestim-eth estrad triphasic (ORTHO TRI-CYCLEN) 0.18/0.215/0.25 MG-35 MCG tablet Take 1 tabletby mouth daily 84 tablet 3 Breast Cancer Screening: FSH-7: Breast CA Risk Assessment (FHS-7) 11/13/2020 Did any of your first-degree relatives have breast or ovarian cancer? No Did any of your relatives have bilateral breast cancer? Unknown Did any man in your family have breast cancer? No Did any woman in your family have breast and ovarian cancer? No Did any woman in your family have breast cancer before age 50 y? Unknown Do you have 2 or more relatives with breast and/or ovarian cancer? No Do you have 2 or more relatives with breast and/or bowel cancer? No Patient under 40 years of age: Routine Mammogram Screening not recommended. Pertinent mammograms are reviewed under the imaging tab. History of abnormal Pap smear: NO - age 30- 65 PAP every 3 years recommended PAP / HPV Latest Ref Rng & Units 10/23/2020 04/19/2018 08/26/2017 PAP - NIL NIL NIL HPV 16 DNA NEG:Negative Negative Negative Negative HPV 18 DNA NEG:Negative Negative Negative Negative OTHER HR HPV NEG:Negative Negative Negative Negative Reviewed and updated as needed this visit by clinical staff Allergies Reviewed and updated as needed this visit by Provider Review of Systems Constitutional: Negative for chills and fever. HENT: Negative for congestion, ear pain, hearing loss and sore throat. Eyes: Negative for pain and visual disturbance. Respiratory: Negative for cough and shortness of breath. Cardiovascular: Positive for chest pain. Negative for palpitations and peripheral edema. Gastrointestinal: Positive for abdominal pain. Negative for constipation, diarrhea, heartburn, hematochezia and nausea. Breasts: Negative for tenderness, breast mass and discharge. Genitourinary: Positive for pelvic pain and vaginal discharge. Negative for dysuria, frequency, genital sores, hematuria, urgency and vaginal bleeding. Musculoskeletal: Negative for arthralgias, joint swelling and myalgias. Skin: Negative for rash. Neurological: Positive for headaches. Negative for dizziness, weakness and paresthesias. Psychiatric/Behavioral: Negative for mood changes. The patient is nervous/anxious. Headaches: Controlled if drinking enough water. Abdominal pain: Feels this is due to her poor posture OBJECTIVE: BP 102/69 (BP Location: Right arm, Patient Position: Chair, Cuff Size: Adult Regular) Pulse 93 Temp 98.5 ??F (36.9 ??C) (Oral) Resp 16 Ht 1.607 m (5' 3.25) Wt 49.9 kg (110 lb) LMP 11/04/2020 SpO2 99% No BMI 19.33 kg/m?? Physical Exam GENERAL: healthy, alert and no distress EYES: Eyes grossly normal to inspection, PERRL and conjunctivae and sclerae normal HENT: right external ear canal with small furuncle, left ear canal normal. TM's normal, nose and mouth without ulcers or lesions NECK: no adenopathy, no asymmetry, masses, or scars and thyroid normal to palpation RESP: lungs clear to auscultation - no rales, rhonchi or wheezes BREAST: defer, just completed at [employer] CV: regular rate and rhythm, normal S1 S2, no S3 or S4, no murmur, click or rub, no peripheral edema ABDOMEN: soft, nontender, no hepatosplenomegaly, no masses and bowel sounds normal MS: no gross musculoskeletal defects noted, no edema SKIN: no suspicious lesions or rashes NEURO: Normal strength and tone, mentation intact and speech normal PSYCH: mentation appears normal, affect normal/bright ASSESSMENT/PLAN: Tameka was seen today for physical and abdominal pain. Diagnoses and all orders for this visit: Routine general medical examination at a health care facility - CBC with platelets differential - Comprehensive metabolic panel - Lipid panel reflex to direct LDL Fasting - TSH with free T4 reflex - Vitamin D Deficiency - CRP, inflammation - Erythrocyte sedimentation rate auto Generalized anxiety disorder: PHQ 9 of 2, MALIHA 7 of 4. Has increased stress with working at home and having her 2 children at home as well. Will start back on citalopram, has been on this in the past with decrease in anxiety symptoms. - citalopram (CELEXA) 10 MG tablet; Take 5 mg orally every day for 2 weeks, increase to 10 mg orallyevery day for final dose Furuncle of ear canal: discussed warm packet to ear. Patient has been advised of split billing requirements and indicates understanding: No COUNSELING: Reviewed preventive health counseling, as reflected in patient instructions Regular exercise Healthy diet/nutrition Estimated body mass index is 20.25 kg/m?? as calculated from the following: Height as of 10/11/20: 1.6 m (5' 3). Weight as of 10/23/20: 51.8 kg (114 lb 4.8 oz). Weight management plan return visit in Other 6 weeks She reports that she has never smoked. She has never used smokeless tobacco. Counseling Resources: ATP IV Guidelines Pooled Cohorts Equation Calculator Breast Cancer Risk Calculator BRCA-Related Cancer Risk Assessment: FHS-7 Tool FRAX Risk Assessment ICSI Preventive Guidelines Dietary Guidelines for Americans, 2009 USDA's MyPlate ASA Prophylaxis Lung CA Screening Follow up in 6 weeks in clinic for anxiety and weight check. Annalisa Mark APRN CNP [facility] Answers for HPI/ROS submitted by the patient on 11/13/2020 Annual Exam: If you checked off any problems, how difficult have these problems made it for you to do your work, take care of things at home, or get along with other people?: Not difficult at all PHQ9 TOTAL SCORE: 2 MALIHA 7 TOTAL SCORE: 4 documented in this encounter Miscellaneous Notes Result Encounter Note - Annalisa Mark APRN CNP - 11/13/2020 8:25 AM CDT Ben English, Your CBC (checks for anemia and infection) is normal. Your Sed rate (checks for inflammation) is also normal. Sincerely, Annalisa Mark. SELVIN Result Encounter Note - Annalisa Mark APRN CNP - 11/13/2020 8:25 AM CDT Ben English, Your test for inflammation (CRP) is normal. Sincerely, Annalisa Mark CNP Result Encounter Note - Annalisa Mark APRN CNP - 11/13/2020 8:25 AM CDT Ben English, Your vitamin D level is normal at 56. Sincerely, Annalisa Mark CNP Result Encounter Note - Annalisa Mark APRN CNP - 11/13/2020 8:25 AM CDT Ben English, Your lab results are as below: 1) TSH (thyroid level) 1.68 which is normal (range 0.4-r) 2) Cholesterol is normal at 176, your LDL (bad cholesterol) and your HDL (good cholesterol) are alsowithin normal range. 3) Glucose is normal at 77 (normal fasting is <100). If you have any questions do not hesitate to call the clinic to discuss the results with me further. Sincerely, Annalisa Mark CNP documented in this encounter Plan of Treatment Not on filedocumented as of this encounter Procedures Procedure Name Priority Date/Time Associated Comments Diagnosis CBC WITH PLATELETS & Routine 11/13/2020 8:58 AM Routine genera l Results for this DIFFERENTIAL CDT medical examination procedur e are in at a health care the results facility section. VITAMIN D DEFICIENCY Routine 11/13/2020 8:58 AM Routine genera l Results for this SCREENING CDT medical examination procedur e are in at a health care the results facility section. TSH WITH FREE T4 Routine 11/13/2020 8:58 AM Routine general Re sults for this REFLEX CDT medical examination procedur e are in at a health care the results facility section. LIPID REFLEX TO DIRECT Routine 11/13/2020 8:58 AM Routine gene ral Results for this LDL PANEL CDT medical examination procedur e are in at a health care the results facility section. ERYTHROCYTE Routine 11/13/2020 8:58 AM Routine general Result s for this SEDIMENTATION RATE CDT medical examination pr ocedure are in AUTO at a health care the results facility section. CRP INFLAMMATION Routine 11/13/2020 8:58 AM Routine general Re sults for this CDT medical examination procedur e are in at a health care the results facility section. COMPREHENSIVE Routine 11/13/2020 8:58 AM Routine general Resul ts for this METABOLIC PANEL CDT medical examination proce keturah are in at a health care the results facility section. documented in this encounter Results Erythrocyte sedimentation rate auto (11/13/2020 8:58 AM CDT) athologist Signature Sed Rate 6 0 - 20 mm/h 11/13/2020 [facility] 9:15 AM CDT [facility] Specimen Anatomical Collection Method Collection Time Receive d Time (Source) Location / / Volume Laterality Blood 11/13/2020 8:58 AM 8:59 CDT AM CDT Annalisa Mark APRN, CNP LAB - BLOOD ORDERABLES Performing Organization Address City/State/ZIP Code Phon e Number [facility] [address] [place] [address] CRP, inflammation (11/13/2020 8:58 AM CDT) [facility] Signature CRP Inflammation <2.9 0.0 - 8.0 11/13/2020 [facility] mg/L 3:05 PM CDT [facility] Specimen Anatomical Collection Method Collection Time Receive d Time (Source) Location / / Volume Laterality Blood 11/13/2020 8:58 AM 8:59 CDT AM CDT Annalisa Mark APRN CHRISTIAN SCIENCE NURSE LAB - BLOOD ORDERABLES Performing Organization Address City/State/ZIP Code Phon e Number [facility] [address] [place] [address] [facility] Vitamin D Deficiency (11/13/2020 8:58 AM CDT) athologist Signature Vitamin D 56 20 - 75 11/13/2020 [facility] Deficiency ug/L 5:53 PM CDT [facility] Comment: Season, race, dietary intake, and treatm ent affect the concentration of 79-gztiqwe-Vbpxyrv D. Values may decreas e during winter months and increase during summer months. Values 20-29 ug/L may indicate Vitamin D insufficiency and values <20 ug/L may indicate Vitamin D deficiency. Vitamin D determination is routinely per formed by an immunoassay specific for 25 hydroxyvitamin D3. ??If an individual is on vitamin D2 (ergocalciferol) supplementation, please specify 25 OH vi tamin D2 and D3 level determination by LCMSMS test VITD23. Specimen Anatomical Collection Method Collection Time Receive d Time (Source) Location / / Volume Laterality Blood 11/13/2020 8:58 AM 8:59 CDT AM CDT Annalisa Mark APRN, CNP LAB - BLOOD ORDERABLES Performing Organization Address City/State/ZIP Code Phon e Number [address] [address] [facility] TSH with free T4 reflex (11/13/2020 8:58 AM CDT) athologist Signature TSH 1.68 0.40 - 4.00 11/13/2020 [facility] mU/L 8:35 PM [facility] Specimen Anatomical Collection Method Collection Time Receive d Time (Source) Location / / Volume Laterality Blood 11/13/2020 8:58 AM 8:59 CDT AM CDT Annalisa Mark APRN, CNP LAB - BLOOD ORDERABLES Performing Organization Address City/[facility]/ZIP [facility] [place] Number [facility] [address] [address] [facility] [address] [phone] Lipid panel reflex to direct LDL Fasting (11/13/2020 8:58 AM CDT) athologist Signature Cholesterol 176 <200 mg/dL 11/13/2020 [facility] 8:27 PM [facility] Triglycerides 61 <150 mg/dL 11/13/2020 [facility] 8:27 PM [facility] Comment: Fasting specimen HDL Cholesterol 68 >49 mg/dL 11/13/2020 8:27 PM CDT F [facility] LDL Cholesterol 96 <100 mg/dL 11/13/2020 8:27 PM [facility] Comment: Desirable: <100 mg/dl Non HDL Cholesterol 108 <130 mg/dL 11/13/2020 8:[address] [facility] Specimen Anatomical Collection Method Collection Time Receive d Time (Source) Location / / Volume Laterality Blood 11/13/2020 8:58 AM 8:59 CDT AM CDT Annalisa Mark APRN CHRISTIAN SCIENCE NURSE LAB - BLOOD ORDERABLES Performing Organization Address City/State/ZIP Code Phon e Number [place] [address] [address] [facility] [address] [phone] Comprehensive metabolic panel (11/13/2020 8:58 AM CDT) athologist Signature Sodium 139 133 - 144 11/13/2020 [place] mmol/L 8:15 PM [facility] Potassium 3.8 3.4 - 5.3 11/13/2020 [place] mmol/L 8:15 PM [facility] Chloride 106 94 - 109 11/13/2020 [place] mmol/L 8:15 PM [facility] Carbon Dioxide 28 20 - 32 11/13/2020 [place] mmol/L 8:27 PM [facility] Anion Gap 5 3 - 14 11/13/2020 [place] mmol/L 8:27 PM [facility] Glucose 77 70 - 99 11/13/2020 [facility] mg/dL 8:27 PM [facility] Comment: Fasting specimen Urea Nitrogen 19 7 - 30 mg/dL 11/13/2020 8:[address] [facility] Creatinine 0.82 0.52 - 1.04 mg/dL 11/13/2020 8:27 PM [facility] GFR Estimate >90 >60 11/13/2020 8:27 PM [facility] mL/min/{1.73_m2} HOSPITAL Comment: Non GFR Calc Starting 07/13/2018, serum creatinine ba sed estimated GFR (eGFR) will be calculated using the Chronic Kidney Dise [facility] Epidemiology Collaboration (CKD-EPI) equation. GFR Estimate If >90 >60 mL/min/{1.73_m2} 11/13/2020 8: 27 PM [facility] Comment: GFR Calc Starting 07/13/2018, serum creatinine ba sed estimated GFR (eGFR) will be calculated using the Chronic Kidney Dise [facility] Epidemiology Collaboration (CKD-EPI) equation. Calcium 8.8 8.5 - 10.1 mg/dL 11/13/2020 8:27 PM [facility] Bilirubin Total 0.5 0.2 - 1.3 mg/dL 11/13/2020 8:27 PM [facility] Albumin 3.8 3.4 - 5.0 g/dL 11/13/2020 8:27 PM [facility] Protein Total 7.2 6.8 - 8.8 g/dL 11/13/2020 8:27 PM [facility] Alkaline Phosphatase 70 40 - 150 U/L 11/13/2020 8:27 PM [facility] ALT 24 0 - 50 U/L 11/13/2020 8:27 PM [facility] AST 14 0 - 45 U/L 11/13/2020 8:27 PM [facility] Specimen Anatomical Collection Method Collection Time Receive d Time (Source) Location / / Volume Laterality Blood 11/13/2020 8:58 AM 8:59 CDT AM CDT Annalisa Mark APRN CHRISTIAN SCIENCE NURSE LAB - BLOOD ORDERABLES Performing Organization Address City/State/ZIP Code Phon e Number [facility] [address], [place] [address] [facility] [address] [phone] CBC with platelets differential (11/13/2020 8:58 AM CDT) [facility] Method Time Signature WBC 9.8 4.0 - 11/13/2020 [facility] 11.0 9:13 AM CDT CLIN[facility] 10e9/L [facility] RBC Count 4.10 3.8 - 5.2 11/13/2020 [facility] 10e12/L 9:13 AM CDT [facility] [place] Hemoglobin 13.0 11.7 - 11/13/2020 [facility] 15.7 g/dL 9:13 AM CDT [facility] Hematocrit 38.6 35.0 - 11/13/2020 [facility] 47.0 % 9:13 AM CDT [facility] MCV 94 78 - 100 11/13/2020 [facility] fl 9:13 AM CDT [facility] MCH 31.7 26.5 - 11/13/2020 [facility] 33.0 pg 9:13 AM CDT [facility] MCHC 33.7 31.5 - 11/13/2020 [facility] 36.5 g/dL 9:13 AM CDT [facility] [place] RDW 12.2 10.0 - 11/13/2020 [facility] 15.0 % 9:13 AM CDT [facility] Platelet Count 198 150 - 450 11/13/2020 [facility] 10e9/L 9:13 AM CDT [facility] [place] % Neutrophils 68.6 % 11/13/2020 [facility] 9:13 AM CDT [facility] [place] % Lymphocytes 26.8 % 11/13/2020 [facility] 9:13 AM CDT [facility] [place] % Monocytes 3.6 % 11/13/2020 [facility] 9:13 AM CDT [facility] [place] % Eosinophils 0.8 % 11/13/2020 [facility] 9:13 AM CDT [facility] [place] % Basophils 0.2 % 11/13/2020 [facility] 9:13 AM CDT [facility] [place] Absolute 6.8 1.6 - 8.3 11/13/2020 [facility] Neutrophil 10e9/L 9:13 AM CDT [facility] [place] Absolute 2.6 0.8 - 5.3 11/13/2020 [facility] Lymphocytes 10e9/L 9:13 AM CDT [facility] [place] Absolute 0.4 0.0 - 1.3 11/13/2020 [facility] Monocytes 10e9/L 9:13 AM CDT [facility] [place] Absolute 0.1 0.0 - 0.7 11/13/2020 [facility] Eosinophils 10e9/L 9:13 AM CDT [facility] [place] Absolute 0.0 0.0 - 0.2 11/13[facility]2020 [facility] Basophils 10e9/L 9:13 AM CDT [facility] Diff Method Automated 11/13/2020 [facility] Method 9:13 AM CDT [facility] Specimen Anatomical Collection Method Collection Time Receive d Time (Source) Location / / Volume Laterality Blood 11/13/2020 8:58 AM 8:59 CDT AM CDT Annalisa Mark APRN CHRISTIAN SCIENCE NURSE LAB - BLOOD ORDERABLES Performing Organization Address City/State/ZIP Code Phon e Number [facility] [address] [place] [address] documented in this encounter Visit Diagnoses Diagnosis Routine general medical examination at a health care facility - Primary Generalized anxiety disorder Furuncle of ear canal documented in this encounter Additional Health Concerns Assessment Noted Time PHQ-9 Depression Total Score: 2 11/14/2020 7:03 AM CDT documented as of this encounter Care Teams Brand Sales Manager Relationship Specialty Start Date End Date Annalisa Mark, PCP - General Nurse Practitioner 03/22/15 JADEN CHRISTIAN SCIENCE NURSE [address] [place] [address] Annalisa Mark, Assigned PCP 01/22/20 2 JADEN CHRISTIAN SCIENCE NURSE [address] [place] [address] Jacob Carmona Assigned OBGYN Provider 05/18/20 MD Antony [address] [place] [address] documented as of this encounter
--- OUTSIDE RECORDS SUMMARY | 2022-06-06 20:58 | XMS_ITS | Encounter Summary ---
:1985 Author Organization [place] Address [facility]0 [facility] [place] [address] Care Team Providers Name Role Phone Annalisa Mark APRN, CNP Primary Care Provider [phone] Annalisa Mark APRN CHANNEL MARKETING MANAGER Unavailable [phone] Reason for Visit Reason Comments Wound Infection Encounter Details Date Type Department Care Team Description 04/26/2020 Virtual Visit [facility] Shiva Byrnes Paron ychia of finger [facility] [place] PA-C of right hand (Primary [address] Dx) [place] [id number] [phone] Social History Tobacco Use Types Packs/Day Years [...] or relatives? How often do you attend restorationist or Patient refused 2021 buddhism services? Do you belong to any clubs or No 10/17/2021 organizations such as restorationist groups, unions, fraternal or athletic groups, or [...] been in contact with No / Unsure 04/26/2020 9:31 AM CDT someone who was confirmed or suspected to have Coronavirus / COVID-19? documented as of this encounter Patient Instructions Patient InstructionsShiva Byrnes PA-C - 04/26/2020 10:10 AM CDT Images from the original note were not included. Patient Education Paronychia of the??Finger or Toe Paronychia is an infection near a fingernail or toenail. It usually occurs when an opening in the cuticle or an ingrown toenail lets bacteria under the skin. The infection will need to be drained if pus is present. If the infection has been caught early, youmay need only antibiotic treatment. Healing will take about 1 to 2 weeks. Home care Follow these guidelines when caring for yourself at home: ?? Clean and soak the toe or finger. Do this 2 times a day for the first 3 days. To do so: ? Soak your foot or hand in a tub of warm water for 5 minutes. Or hold your toe or finger under a faucet of warm running water for 5 minutes. ? Clean any crust away with soap and water using a cotton swab. ? Put antibiotic ointment on the infected area. ?? Change the dressing daily or any time it gets dirty. ?? If you were given antibiotics, take them as directed until they are all gone. ?? If your infection is on a toe, wear comfortable shoes with a lot of toe room. You can also wear open-toed sandals while your toe heals. ?? You may use ybxx-eyb-tmtzdzf medicine (acetaminophen or ibuprofen to help with pain, unless another medicine was prescribed. If you have chronic liver or kidney disease, talk with your healthcare provider before using these medicines. Also talk with your provider if you've had a stomach ulcer or GI (gastrointestinal) bleeding. Prevention The following can prevent paronychia: ?? Avoid cutting or playing with your cuticles at home. ?? Don't bite your nails. ?? Don't suck on your thumbs or fingers. Follow-up care Follow up with your healthcare provider, or as advised. When to seek medical advice Call your healthcare provider right away if any of these occur: ?? Redness, pain, or swelling of the finger or toe gets worse ?? Red streaks in the skin leading away from the wound ?? Pus or fluid draining from the nail area ?? Fever of 100.4??F (38??C) or higher, or as directed by your provider Date Last Reviewed: 02/25/2016 ?? [id number] [employer]. [address] [place] [address]. All rights reserved. This information is not intended as a substitute for professional medical care. Always follow your healthcare professional's instructions. documented in this encounter Progress Notes Shiva Byrnes PA-C - 04/26/2020 10:10 AM CDT Images from the original note were not included. Tameka Grissom is a 35 year old female who is being evaluated via a billable video visit. The patient has been notified of following: This video visit will be conducted via a call between you and your physician/provider. We have found that certain health care needs can be provided without the need for an in-person physical exam. This service lets us provide the care you need with a video conversation. If a prescription is necessarywe can send it directly to your pharmacy. If lab work is needed we can place an order for that and you can then stop by our lab to have the test done at a later time. Video visits are billed at different rates depending on your insurance coverage. Please reach out toyour insurance provider with any questions. If during the course of the call the physician/provider feels a video visit is not appropriate, you will not be charged for this service. Patient has given verbal consent for Video visit? Yes How would you like to obtain your AVS? MyChart If you are dropped from the video visit, the video invite should be resent to: Text to cell phone: [phone] Will anyone else be joining your video visit? No Subjective Tameka Alphonso Grissom is a 35 year old female who presents today via video visit for the following health issues: HPI Concern -potential nail infection (right middle finger) Onset: 1-2 days ago- redness and swelling worsened today Description: pulled hang nail, warm to touch, red, swollen, black dot in center Intensity: 4/10 Progression of Symptoms: worsening Accompanying Signs & Symptoms: pulled hang nail, few days later change in symptoms Previous history of similar problem: cellulitis Precipitating factors: Worsened by: touching, using hand Alleviating factors: Improved by: none Therapies tried and outcome: None Video Start Time: 10:01 AM Review of Systems Constitutional, HEENT, cardiovascular, pulmonary, gi and gu systems are negative, except as otherwise noted. Objective Vitals: No vitals were obtained today due to virtual visit. Physical Exam GENERAL: Healthy, alert and no distress EYES: Eyes grossly normal to inspection. No discharge or erythema, or obvious scleral/conjunctival abnormalities. HENT: Normal cephalic/atraumatic. External ears, nose and mouth without ulcers or lesions. No nasal drainage visible. NECK: No asymmetry, visible masses or scars RESP: No audible wheeze, cough, or visible cyanosis. No visible retractions or increased work of breathing. SKIN: Visible skin clear. No significant rash, abnormal pigmentation or lesions. NEURO: Cranial nerves grossly intact. Mentation and speech appropriate for age. PSYCH: Mentation appears normal, affect normal/bright, judgement and insight intact, normal speech and appearance well-groomed. Right middle finger: There is erythema over the distal phalanx along with mild to moderate swelling.Tender to palpation. No drainage. No testing indicated today. Assessment & Plan Paronychia of finger of right hand Try antibiotics first. If not improving after 1-2 days, call to schedule in person appointment for possible drainage. Go to ER or urgent care if worsening. - sulfamethoxazole-trimethoprim (BACTRIM DS) 800-160 MG tablet Dispense: 14 tablet; Refill: 0 Patient Instructions Patient Education Paronychia of the??Finger or Toe Paronychia is an infection near a fingernail or toenail. It usually occurs when an opening in the cuticle or an ingrown toenail lets bacteria under the skin. The infection will need to be drained if pus is present. If the infection has been caught early, youmay need only antibiotic treatment. Healing will take about 1 to 2 weeks. Home care Follow these guidelines when caring for yourself at home: ?? Clean and soak the toe or finger. Do this 2 times a day for the first 3 days. To do so: ? Soak your foot or hand in a tub of warm water for 5 minutes. Or hold your toe or finger under a faucet of warm running water for 5 minutes. ? Clean any crust away with soap and water using a cotton swab. ? Put antibiotic ointment on the infected area. ?? Change the dressing daily or any time it gets dirty. ?? If you were given antibiotics, take them as directed until they are all gone. ?? If your infection is on a toe, wear comfortable shoes with a lot of toe room. You can also wear open-toed sandals while your toe heals. ?? You may use lqzo-dul-gqiucji medicine (acetaminophen or ibuprofen to help with pain, unless another medicine was prescribed. If you have chronic liver or kidney disease, talk with your healthcare provider before using these medicines. Also talk with your provider if you've had a stomach ulcer or GI (gastrointestinal) bleeding. Prevention The following can prevent paronychia: ?? Avoid cutting or playing with your cuticles at home. ?? Don't bite your nails. ?? Don't suck on your thumbs or fingers. Follow-up care Follow up with your healthcare provider, or as advised. When to seek medical advice Call your healthcare provider right away if any of these occur: ?? Redness, pain, or swelling of the finger or toe gets worse ?? Red streaks in the skin leading away from the wound ?? Pus or fluid draining from the nail area ?? Fever of 100.4??F (38??C) or higher, or as directed by your provider Date Last Reviewed: 02/25/2016 ?? [id number] [employer]. [address] [place] [address], [place] [address]. All rights reserved. This information is not intended as a substitute for professional medical care. Always follow your healthcare professional's instructions. Return if symptoms worsen or fail to improve. Shiva Byrnes PA-C [facility] Video-Visit Details Type of service: Video Visit Video End Time:10:10 AM Originating Location (pt. Location): Home Distant Location (provider location): [facility] Platform used for Video Visit: Karl documented in this encounter Plan of Treatment Not on filedocumented as of this encounter Visit Diagnoses Diagnosis Paronychia of finger of right hand - Karin bárbara documented in this encounter Additional Health Concerns Assessment Noted Time PHQ-9 Depression Total Score: 2 12/08/2019 7:04 AM CDT documented as of this encounter Care Teams Mosaic Worker Relationship Specialty Start Date End Date Annalisa Mark APRN CHANNEL MARKETING MANAGER PCP - General Nurse Practitioner 03/22/15 [address] [place], [place] [id number] Annalisa Mark APRN CHANNEL MARKETING MANAGER Assigned PCP 01/22/20 02/21/22 [address] [place], [place] [id number] documented as of this encounter
--- OUTSIDE RECORDS SUMMARY | 2022-06-06 20:58 | XMS_ITS | Encounter Summary ---
:1985 Author Organization [place] Address [address] [place] [address] Care Team Providers Name Role Phone Annalisa Mark APRN, CNP Primary Care Provider [phone] Deedee Annalisa Peacock APRN LINE PATROLLER Unavailable [phone] Encounter Details Date Type Department Care Team Description 04/04/2020 Medical Correspondence [facility], [facility] Non-Provider POST-YOLIS Srvcs DEPRESSION SCALE [address] [place] [address] [place] [address] WELL-CHILD VISITS [phone] Social History Tobacco Use Types Packs/Day Years [...] or relatives? How often do you attend congregational or Patient refused 2021 quaker services? Do you belong to any clubs or No 10/17/2021 organizations such as congregational groups, unions, fraternal or athletic groups, or [...] been in contact with No / Unsure 03/15/2020 6:09 PM CDT someone who was confirmed or suspected to have Coronavirus / COVID-19? documented as of this encounter Plan of Treatment Not on filedocumented as of this encounter Visit Diagnoses Not on filedocumented in this encounter Additional Health Concerns Assessment Noted Time PHQ-9 Depression Total Score: 2 12/08/2019 7:04 AM CDT documented as of this encounter Care Teams Sales And Service Advisor Relationship Specialty Start Date End Date Annalisa Mark APRN LINE PATROLLER PCP - General Nurse Practitioner 03/22/15 [address] [place] [address] Annalisa Mark APRN LINE PATROLLER Assigned PCP 01/22/20 02/21/22 [address] [place], [place] [phone] documented as of this encounter
--- OUTSIDE RECORDS SUMMARY | 2022-06-06 20:58 | XMS_ITS | Encounter Summary ---
:1985 Author Organization [place] Address [facility] [place] [address] Care Team Providers Name Role Phone Annalisa Mark APRN, CNP Primary Care Provider [phone] Annalisa Mark APRN WELL LOGGING MUD ANALYSIS CAPTAIN Unavailable [phone] Reason for Visit Reason Onset Date Comments Post Exam 12/07/2019 Encounter Details Date Type Department Care Team Description 12/07/2019 Virtual Visit [facility] Jacob Carmona OCP (oral [facility] Antony contraceptive pills) [place] [address] initiation (Primary [address] [place], [place] [address] Dx) [place] [address] [place] [address] Social History Tobacco Use Types Packs/Day Years [...] you attend presybeterian or Patient refused 2021 anabaptism services? Do [...] place to sleep or slept in a intermediate (including now)? Education Answer Date Recorded What is the highest level of school Bachelor's degree (e.g., BA, AB, 02/15/2019 you have completed or the highest BS) degree you have received? Sex Assigned at Date Recorded Female 03/25/2021 2:01 PM CDT COVID-19 Exposure Response Date Recorded In the last month, have you been in contact with No / Unsure 11/18/2019 3:13 PM CDT someone who was confirmed or suspected to have Coronavirus / COVID-19? documented as of this encounter Progress Notes Jacob Carmona MD - 12/07/2019 1:00 PM CDT Tameka Grissom is a 34 year old female who is being evaluated via a billable telephone visit. The patient has been notified of following: This telephone visit will be conducted via a call between you and your physician/provider. We have found that certain health care needs can be provided without the need for a physical exam. This service lets us provide the care you need with a short phone conversation. If a prescription is necessary we can send it directly to your pharmacy. If lab work is needed we can place an order for that and you can then stop by our lab to have the test done at a later time. Telephone visits are billed at different rates depending on your insurance coverage. During this emergency period, for some insurers they may be billed the same as an in-person visit. Please reach out to your insurance provider with any questions. If during the course of the call the physician/provider feels a telephone visit is not appropriate, you will not be charged for this service. Patient has given verbal consent for Telephone visit? Yes What phone number would you like to be contacted at? [phone] How would you like to obtain your AVS? MyChart Phone call duration: 10 minutes Jacob Carmona MD Jacob Carmona MD - 12/07/2019 1:00 PM CDT SUBJECTIVE: Tameka is here for a1-week checkup which is being conducted by phone due to COVID pandemic. Delivery date was 09/19/2019. She had an induced vaginal delivery of a viable girl, weight 7 pounds 6oz., with no complications. Since delivery, she has been breast feeding. She has no signs of infection, bleeding or other complications. She is . We discussed contraceptions and she has chosen oral contraceptives. She has not had intercourse since delivery and complains of NA discomfort. Patient screened for depression and complaints are NEGATIVE. Screening has also been completed for intimate partner violence. EXAM: Today's Depression Rating was PHQ-9 SCORE 12/07/2019 PHQ-9 Total Score - PHQ-9 Total Score MyChart 2 (Minimal depression) PHQ-9 Total Score 2 Exam deferred Induced at 40+w. Uneventful Breast and bottle feeding. Plans to begin progestin only OCPs Script faxed to pharmacy ASSESSMENT: Normal exam after . PLAN: Return as needed or at time of next expected pap, pelvic, or breast exam. documented in this encounter Nursing Notes Kerri Roa CMA - 12/07/2019 1:00 PM CDT Chief Complaint Patient presents with ??? Post Exam baby girl Shubham initial LMP 12/10/2018 Estimated body mass index is 27.39 kg/m?? as calculated from the following: Height as of 07/25/19: 1.6 m (5' 3). Weight as of 09/16/19: 70.1 kg (154 lb 9.6 oz). BP completed using cuff size regular. Kerri Roa CMA documented in this encounter Plan of Treatment Not on filedocumented as of this encounter Visit Diagnoses Diagnosis OCP (oral contraceptive pills) initiatio n - Primary General counseling for prescription of o ral contraceptives documented in this encounter Additional Health Concerns Assessment Noted Time PHQ-9 Depression Total Score: 2 12/08/2019 7:04 AM CDT documented as of this encounter Care Teams Strategic Account Director Relationship Specialty Start Date End Date Annalisa Mark APRN WELL LOGGING MUD ANALYSIS CAPTAIN PCP - General Nurse Practitioner 03/22/15 [address] [place], [place] [phone] Annalisa Mark APRN WELL LOGGING MUD ANALYSIS CAPTAIN Assigned PCP 11/20/19 12/10/19 [address] [place], [place] [phone] documented as of this encounter
--- OUTSIDE RECORDS SUMMARY | 2022-06-06 20:58 | XMS_ITS | Encounter Summary ---
:1985 Author Organization [place] Address [address] [place], [place] [address]. [place] [address] Care Team Providers Name Role Phone Annalisa Mark APRN, CNP Primary Care Provider [phone] Annalisa Mark APRN TAR CHASER Unavailable [phone] Encounter Details Date Type Department Care Team Description 04/26/2020 Travel Social History Tobacco Use Types Packs/Day [...] or relatives? How often do you attend sabianism or Patient refused 2021 muslim services? Do you belong to any clubs or No 10/17/2021 organizations such as sabianism groups, unions, fraternal or athletic groups, or [...] documented as of this encounter Care Teams Skeins Yarn Examiner Relationship Specialty Start Date End Date Annalisa Mark APRN TAR CHASER PCP - General Nurse Practitioner 03/22/15 [address] [place], [place] [phone] Annalisa Mark APRN TAR CHASER Assigned PCP 01/22/20 02/21/22 [address] [place], [place] [phone] documented as of this encounter
--- OUTSIDE RECORDS SUMMARY | 2022-06-06 20:58 | XMS_ITS | Encounter Summary ---
:1985 Author Organization [place] Address [facility] [place] [address] Care Team Providers Name Role Phone Annalisa Mark APRN, CNP Primary Care Provider [phone] Annalisa Mark APRN, CNP Unavailable [phone] Reason for Visit Reason Comments Mouth/Lip Problem Encounter Details Date Type Department Care Team Description 05/03/2020 Office Visit [facility] Annalisa Mark u lcer of [facility] [place] JADEN Peacock CNP mouth (Primary Dx) [address] [address] [phone] Social History Tobacco Use Types Packs/Day Years [...] or relatives? How often do you attend advent or Patient refused 2021 sabianism services? Do you belong to any clubs or No 10/17/2021 organizations such as advent groups, unions, fraternal or athletic groups, or [...] been in contact with No / Unsure 05/03/2020 11:21 AM CDT someone who was confirmed or suspected to have Coronavirus / COVID-19? documented as of this encounter Last Filed Vital Signs Vital Sign Reading Time Taken Comments Blood Pressure 106/72 05/03/2020 11:32 AM CDT Pulse 78 05/03/2020 11:32 AM CDT Temperature 36.8 ??C (98.2 ??F) 05/03/2020 11:32 AM CDT Respiratory Rate 18 05/03/2020 11:32 AM CDT Oxygen Saturation 99% 05/03/2020 11:32 AM CDT Inhaled Oxygen Concentration - - Weight 55.3 kg (122 lb) 05/03/2020 11:32 AM CDT Height 160 cm (5' 3) 05/03/2020 11:32 AM CDT Body Mass Index 21.61 05/03/2020 11:32 AM CDT documented in this encounter Patient Instructions Patient InstructionsAnnalisa Mark APRN BULLARD OPERATOR - 05/03/2020 11:40 AM CDT Images from the original note were not included. Patient Education Understanding Canker Sores Canker sores are small, painful sores inside the mouth. They occur most often on the tongue, gums, or insides of the cheeks. The medical term for canker sores is aphthous ulcers. What causes a canker sore? The exact cause of canker sores is not known, but they are linked to a number of conditions. These include: ?? An injury or irritation in the mouth, such as biting the inside of your cheek or braces rubbing ?? Allergy or sensitivity to certain foods or substances, such as citrus juice or some kinds of toothpaste ?? Poor nutrition ?? Emotional stress ?? Certain infections and illnesses Canker sores tend to run in families. What are the symptoms of a canker sore? These are some common traits of canker sores: ?? Sores are open and grayish-yellow, surrounded by redness. ?? Sores are usually painful and sensitive to touch. ?? Canker sores may be preceded by a burning or tingling sensation a few hours to a few days before the sore appears. ?? Children and teens tend to get canker sores more often than adults. How are canker sores treated? Canker sores usually go away by themselves within 10 to 14 days. There is no cure for canker sores. Treatment focuses on relieving symptoms and shortening outbreaks. Treatments may include: ?? Prescription or fzxh-evx-ykeasnl skin treatments to apply to the sores. Steroids for your skin (topical) may protect the canker sores from further irritation and allow them to heal. Topical pain relief medicines may numb the area and make the sores less painful. ?? Certain types of toothpaste. These do not contain sodium lauryl sulfate. This type of toothpaste may prevent further aggravation of canker sores. ?? Oral prescription medicines. These are used for severe cases to help relieve symptoms. ?? Prescription or xkmv-sdd-nmlhpzk pain medicines. These help with discomfort. What are the complications of a canker sore? Mouth sores that seem to be canker sores can be signs of a more serious illness. If you have other signs of illness along with mouth sores, you should talk with a healthcare provider. Canker sores can be so painful that they interfere with talking, eating, or drinking. When should I call my healthcare provider? Call your healthcare provider right away if you have any of these: ?? Canker sores that don???t go away after 2 weeks ?? Canker sores that come back more than 3 times a year ?? Canker sores that are larger than about a half-inch across ?? Fever of 100.4??F (38??C) or higher, or as directed ?? Pain that gets worse ?? You aren???t able to eat or drink because of painful sores ?? Symptoms that don???t get better, or symptoms that get worse ?? New symptoms Date Last Reviewed: 11/25/2015 ?? [id number] [employer]. [address] [place] [address]. All rights reserved. This information is not intended as a substitute for professional medical care. Always follow your healthcare professional's instructions. documented in this encounter Progress Notes Annalisa Mark APRN CNP - 05/03/2020 11:40 AM CDT Subjective Tameka Grissom is a 35 year old female who presents to clinic today for the following health issues: HPI Concern - mouth sore Onset: few days ago Description: sore are white, both side Intensity: mild Progression of Symptoms: same Accompanying Signs & Symptoms: none Previous history of similar problem: none Precipitating factors: Worsened by: by moving the tongue Alleviating factors: Improved by: none Noticed a sore in the left side of the mouth 3 days ago, was very tender at first, has since decreased in pain. The size of the sore has stayed the same. Last canker sore many years ago. Review of Systems CONSTITUTIONAL: NEGATIVE for fever, chills, change in weight ENT/MOUTH: NEGATIVE for ear, mouth and throat problems. See HPI RESP: NEGATIVE for significant cough or SOB CV: NEGATIVE for chest pain, palpitations or peripheral edema Objective BP 106/72 (BP Location: Right arm, Patient Position: Sitting, Cuff Size: Adult Large) Pulse 78 Temp 98.2 ??F (36.8 ??C) (Oral) Resp 18 Ht 1.6 m (5' 3) Wt 55.3 kg (122 lb) SpO2 99% BMI 21.61 kg/m?? Body mass index is 21.61 kg/m??. Physical Exam GENERAL: healthy, alert and no distress HENT: ear canals and TM's normal, nose and without ulcers or lesions. 3 mm ulceration along the inner gums at tooth #30-31. No swelling of the gums. NECK: no adenopathy, no asymmetry, masses, or scars and thyroid normal to palpation RESP: lungs clear to auscultation - no rales, rhonchi or wheezes CV: regular rate and rhythm, normal S1 S2, no S3 or S4, no murmur, click or rub, no peripheral edema Assessment & Plan Aphthous ulcer of mouth: discussed the natural history, likely will resolve or at least improve in 7-10 days after it was first noticed. Avoid acidic foods. Return in about 5 days (around 05/08/2020). if ulceration has not resolved. Annalisa Mark APRN CNP [facility] documented in this encounter Plan of Treatment Not on filedocumented as of this encounter Visit Diagnoses Diagnosis Aphthous ulcer of mouth - Primary Oral aphthae documented in this encounter Additional Health Concerns Assessment Noted Time PHQ-9 Depression Total Score: 2 12/08/2019 7:04 AM CDT documented as of this encounter Care Teams A P Manager Relationship Specialty Start Date End Date Annalisa Mark APRN CNP PCP - General Nurse Practitioner 03/22/15 [address] [place], [place] [id number] Annalisa Mark APRN CNP Assigned PCP 01/22/20 02/21/22 [address] [place], [place] [id number] documented as of this encounter
--- OUTSIDE RECORDS SUMMARY | 2022-06-06 20:58 | XMS_ITS | Encounter Summary ---
:1985 Author Organization [place] Address [facility] [place] [address] Care Team Providers Name Role Phone Annalisa Mark APRN, CNP Primary Care Provider [phone] Annalisa Mark APRN, CNP Unavailable [phone] Jacob Carmona MD Unavailable [phone] Encounter Details Date Type Department Care Team Description 06/26/2020 Orders Only [facility] Annalisa Mark infe ction of the Clinic [place] JADEN Peacock CNP vagina (Primary Dx) [address] [address] [phone] Social History Tobacco Use Types Packs/Day Years [...] you attend sikhism or Patient refused 2021 orthodoxy services? Do [...] been in contact with No / Unsure 06/26/2020 7:44 AM BUSINESS ADVISOR someone who was confirmed or suspected to have Coronavirus / COVID-19? documented as of this encounter Plan of Treatment Not on filedocumented as of this encounter Visit Diagnoses Diagnosis Yeast infection of the vagina - Primary Candidiasis of vulva and vagina documented in this encounter Additional Health Concerns Assessment Noted Time PHQ-9 Depression Total Score: 2 12/08/2019 7:04 AM CDT documented as of this encounter Care Teams Motion Picture Film Examiner Relationship Specialty Start Date End Date Annalisa Mark, PCP - General Nurse Practitioner 03/22/15 STRAIN TECHNICIAN PROFESSOR OF PHYSICS [address] [place] [address] Annalisa Mark, Assigned PCP 01/22/20 2 STRAIN TECHNICIAN PROFESSOR OF PHYSICS [address] [place] [address] Jacob Carmona Assigned OBGYN Provider 05/18/20 MD [place] [address] documented as of this encounter
--- OUTSIDE RECORDS SUMMARY | 2022-06-06 20:58 | XMS_ITS | Encounter Summary ---
:1985 Author Organization [place] Address [address] [place], [place] [address]. [place] [address] Care Team Providers Name Role Phone Annalisa Mark APRN MILKING SYSTEM INSTALLER Primary Care Provider [phone] Annalisa Mark APRN MILKING SYSTEM INSTALLER Unavailable [phone] Jacob Carmona MD Unavailable [phone] Encounter Details Date Type Department Care Team Description 06/22/2020 Travel Social History Tobacco Use Types Packs/Day [...] you attend spiritism or Patient refused 2021 sabianist services? Do [...] PM CDT documented as of this encounter Plan of Treatment Not on filedocumented as of this encounter Visit Diagnoses Not on filedocumented in this encounter Additional Health Concerns Assessment Noted Time PHQ-9 Depression Total Score: 2 12/08/2019 7:04 AM CDT documented as of this encounter Care Teams Shipfitter Apprentice Relationship Specialty Start Date End Date Annalisa Mark, PCP - General Nurse Practitioner 03/22/15 DESIGN SUPERVISOR MILKING SYSTEM INSTALLER [address] [place] [address] Annalisa Mark, Assigned PCP 01/22/20 2 DESIGN SUPERVISOR MILKING SYSTEM INSTALLER [address] [place] [address] Jacob Carmona Assigned OBGYN Provider 05/18/20 [place] [address] documented as of this encounter
--- OUTSIDE RECORDS SUMMARY | 2022-06-06 20:58 | XMS_ITS | Encounter Summary ---
:1985 Author Organization [place] Address [facility] [place] [address] Care Team Providers Name Role Phone Annalisa Mark APRN ADMINISTRATIVE ASSISTANT Primary Care Provider [phone] Annalisa Mark APRN ADMINISTRATIVE ASSISTANT Unavailable [phone] Jacob Carmona MD Unavailable [phone] Encounter Details Date Type Department Care Team Description 11/01/2020 Orders Only [facility] Consuelo [place], [facility] [place] [phone] Social History Tobacco Use Types Packs/Day [...] you attend sabianism or Patient refused 2021 anglican services? Do you belong to any clubs [...] Date/Time Associated Diagnosis Comme nts COLPOSCOPY Routine 04/10/2009 12:00 AM CDT documented in this encounter Results COLPOSCOPY (04/10/2009 12:00 AM CDT) Patient Reported PROCEDURE/MINOR SURGICAL ORD ERABLES documented in this encounter Visit Diagnoses Not on filedocumented in this encounter Additional Health Concerns Assessment Noted Time PHQ-9 Depression Total Score: 2 12/08/2019 7:04 AM CDT documented as of this encounter Care Teams Sweetbread Trimmer Relationship Specialty Start Date End Date Annalisa Mark, PCP - General Nurse Practitioner 03/22/15 JET MAN ADMINISTRATIVE ASSISTANT [address] [place] [address] Annalisa Mark, Assigned PCP 01/22/20 2 JET MAN ADMINISTRATIVE ASSISTANT [address] [place], [place] [phone] Jacob Carmona Assigned OBGYN Provider 05/18/20 [place] [address] documented as of this encounter
--- OUTSIDE RECORDS SUMMARY | 2022-06-06 20:58 | XMS_ITS | Encounter Summary ---
:1985 Author Organization [place] Address [facility] [place] [address] Care Team Providers Name Role Phone Annalisa Mark APRN METROPOLITAN EDITOR Primary Care Provider [phone] Annalisa Mark APRN METROPOLITAN EDITOR Unavailable [phone] Jacob Carmona MD Unavailable [phone] Encounter Details Date Type Department Care Team Description 06/26/2020 Orders Only [facility] Abn ormal urine odor [facility] [address] [place] [address] Social History Tobacco Use [...] you attend sabianist or Patient refused 2021 anabaptism services? Do [...] with No / Unsure 06/26/2020 7:44 AM ELECTRIC SIGN WIRER someone who was confirmed or suspected to have Coronavirus / COVID-19? documented as of this encounter Miscellaneous Notes Result Encounter Note - Annalisa Mark APRN CNP - 06/26/2020 7:45 AM ELECTRIC SIGN WIRER Hi Tameka, Your wet prep shows that you have a yeast infection. I would like you to take diflucan today and repeat in 7 days if needed. Your urine is normal. Sincerely, Annalisa Mark CNP TRIC SIGN WIRER documented in this encounter Plan of Treatment Not on filedocumented as of this encounter Procedures Procedure Name Priority Date/Time Associated Comments Diagnosis WET PREPARATION Routine 06/26/2020 7:48 AM Abnormal urine odor Results for this ELECTRIC SIGN WIRER procedure are i n the results section. UA MACROSCOPIC WITH Routine 06/26/2020 7:47 AM Abnormal urine odor Results for this REFLEX TO MICROSCOPIC ELECTRIC SIGN WIRER proced ure are in AND CULTURE the results section. documented in this encounter Results (ABNORMAL) Wet prep (06/26/2020 7:48 AM ELECTRIC SIGN WIRER) [facility] Method Time Signature Specimen Vagina [place] Description [facility] Wet Prep No Trichomonas 06/26/2020 [facility] seen 8:42 AM ELECTRIC SIGN WIRER [facility] Wet Prep No clue cells 06/26/2020 [facility] seen 8:42 AM ELECTRIC SIGN WIRER [facility] Wet Prep Few 06/26/2020 [place] Yeast seen 8:42 AM ELECTRIC SIGN WIRER [facility] [place] Wet Prep Rare 06/26/2020 [place] WBC'S seen 8:42 AM ELECTRIC SIGN WIRER [facility] Specimen Anatomical Collection Method Collection Time Receive d Time (Source) Location / / Volume Laterality Specimen from 06/26/2020 7:48 AM 06/26/20 20 7:49 vagina ELECTRIC SIGN WIRER AM ELECTRIC SIGN WIRER (specimen) Annalisa Mark APRN, CNP LAB - MICRO GENERAL ORDER ALLI Performing Organization Address City/State/ZIP Code Phon e Number [facility] [address] [place] [address] UA reflex to Microscopic and Culture (06/26/2020 7:47 AM ELECTRIC SIGN WIRER) [facility] Method Time Signature Color Urine Yellow 06/26/2020 [facility] 8:41 AM [facility] Appearance Urine Clear 06/26/2020 [facility] 8:41 AM ELECTRIC SIGN WIRER [facility] Glucose Urine Negative NEG^Negat 06/26/2020 [place] liudmila mg/dL 8:41 AM ELECTRIC SIGN WIRER [facility] Bilirubin Urine Negative NEG^Negat 06/26/2020 [facility] liudmila 8:41 AM ELECTRIC SIGN WIRER [facility] Ketones Urine Negative NEG^Negat 06/26/2020 [place] liudmila mg/dL 8:41 AM [facility] Specific [place] 1.015 1.003 - 06/26/2020 [place] Urine 1.035 8:41 AM [facility] Blood Urine Negative NEG^Negat 06/26/2020 [facility] liudmila 8:41 AM [facility] pH Urine 6.0 5.0 - 7.0 06/26/2020 [place] pH 8:41 AM [facility] Protein Albumin Negative NEG^Negat 06/26/2020 [place] Urine liudmila mg/dL 8:41 AM [facility] Urobilinogen 0.2 0.2 - 1.0 06/26/2020 [place] Urine EU/dL 8:41 AM [facility] Nitrite Urine Negative NEG^Negat 06/26/2020 [facility]ila 8:41 AM [facility] Leukocyte Negative NEG^Negat 06/26/2020 [place] Esterase Urine liudmila 8:41 AM [facility] Source Midstream 06/26/2020 [place] Urine 7:49 AM [facility] Specimen (Source) Anatomical Collection Method Collection Time Re ceived Time Location / / Volume Laterality Examination of 06/26/2020 7:47 06/26/2020 7:48 midstream urine AM ELECTRIC SIGN WIRER AM ELECTRIC SIGN WIRER specimen (procedure) Annalisa Mark APRN METROPOLITAN EDITOR LAB - URINE ORDERABLES Performing Organization Address City/[facility] [address]/ZIP Code Phon e Number [facility] [address] [place] [address] documented in this encounter Visit Diagnoses Diagnosis Abnormal urine odor Other nonspecific finding on examination of urine documented in this encounter Additional Health Concerns Assessment Noted Time PHQ-9 Depression Total Score: 2 12/08/2019 7:04 AM CDT documented as of this encounter Care Teams Speech And Language Specialist Relationship Specialty Start Date End Date Annalisa Mark, PCP - General Nurse Practitioner 03/22/15 STUDENT SERVICES VICE PRESIDENT METROPOLITAN EDITOR [address] [place] [address] Annalisa Mark, Assigned PCP 01/22/20 2 STUDENT SERVICES VICE PRESIDENT METROPOLITAN EDITOR [address] [place], [place] [phone] Jacob Carmona Assigned OBGYN Provider 05/18/20 MD Antony [address] [place] [address] documented as of this encounter
--- OUTSIDE RECORDS SUMMARY | 2022-06-06 20:58 | XMS_ITS | Encounter Summary ---
:1985 Author Organization [place] Address [address] [place], [place] [address]. [place] [address] Care Team Providers Name Role Phone Annalisa Mark APRN, CNP Primary Care Provider [phone] Annalisa Mark APRN FURNACE TENDER Unavailable Encounter Details Date Type Department Care Team Description 03/10/2020 Travel Social History Tobacco Use Types Packs/Day [...] or relatives? How often do you attend methodist or Patient refused 2021 tenriism services? Do you belong to any clubs or No 10/17/2021 organizations such as methodist groups, unions, fraternal or athletic groups, or [...] place to sleep or slept in a penitentiary (including now)? Education Answer Date Recorded What is the highest level of school Bachelor's degree (e.g., BA, AB, 02/15/2019 you have completed or the highest BS) degree you have received? Sex Assigned at Date Recorded Female 03/25/2021 2:01 PM CDT COVID-19 Exposure Response Date Recorded In the last month, have you been in contact with No / Unsure 03/10/2020 9:13 AM CDT someone who was confirmed or suspected to have Coronavirus / COVID-19? documented as of this encounter Plan of Treatment Not on filedocumented as of this encounter Visit Diagnoses Not on filedocumented in this encounter Additional Health Concerns Assessment Noted Time PHQ-9 Depression Total Score: 2 12/08/2019 7:04 AM CDT documented as of this encounter Care Teams Forest Products Gatherer Relationship Specialty Start Date End Date Annalisa Mark APRN FURNACE TENDER PCP - General Nurse Practitioner 03/22/15 [address] [place], [place] [phone] Annalisa Mark APRN FURNACE TENDER Assigned PCP 01/22/20 02/21/22 [address] [place], [place] [phone] documented as of this encounter
--- OUTSIDE RECORDS SUMMARY | 2022-06-06 20:58 | XMS_ITS | Encounter Summary ---
:1985 Author Organization [place] Address [address] [place], [place] [address]. [place] [address] Care Team Providers Name Role Phone Annalisa Mark APRN SHAKE SPLITTER Primary Care Provider [phone] Annalisa Mark APRN SHAKE SPLITTER Unavailable [phone] Jacob Carmona MD Unavailable [phone] Encounter Details Date Type Department Care Team Description 10/11/2020 Travel Social History Tobacco Use Types Packs/Day [...] you attend pentecostal or Patient refused 2021 worship services? Do [...] been in contact with No / Unsure 10/11/2020 3:24 PM CDT someone who was confirmed or suspected to have Coronavirus / COVID-19? documented as of this encounter Plan of Treatment Not on filedocumented as of this encounter Visit Diagnoses Not on filedocumented in this encounter Additional Health Concerns Assessment Noted Time PHQ-9 Depression Total Score: 2 12/08/2019 7:04 AM CDT documented as of this encounter Care Teams Social Media Job Titles Relationship Specialty Start Date End Date Annalisa Mark, PCP - General Nurse Practitioner 03/22/15 GRAIN ELEVATOR OPERATOR SHAKE SPLITTER [address] [place] [address] Annalisa Mark, Assigned PCP 01/22/20 2 GRAIN ELEVATOR OPERATOR SHAKE SPLITTER [address] [place] [address] Jacob Carmona Assigned OBGYN Provider 05/18/20 MD Antony [address] [place], [place] [phone] documented as of this encounter
--- OUTSIDE RECORDS SUMMARY | 2022-06-06 20:58 | XMS_ITS | Encounter Summary ---
:1985 Author Organization [place] Address [facility] [place] [address] Care Team Providers Name Role Phone Deedee, Annalisa Peacock APRN, CNP Primary Care Provider [phone] DeedeeAnnalisa Madonna STANLEY COMMUNICATION ELECTRONIC TECHNICIAN Unavailable [phone] Reason for Visit Reason Comments Urgent Care Ear Problem Seen few weeks ago, having d iscomfort in both ears and some blood Encounter Details Date Type Department Care Team Description 03/10/2020 Office Visit [facility] Marek Olivo Infec tive otitis Urgent Care Gunjan Desai MD externa, bilateral [id number] [address] (Primary Dx) [place], [place] [address] [address] [place], [place] [address] (Wo rk) Social History Tobacco Use Types [...] or relatives? How often do you attend hindu or Patient refused 2021 presybeterian services? Do you belong to any clubs or No 10/17/2021 organizations such as hindu groups, unions, fraternal or athletic groups, or [...] Sign Reading Time Taken Comments Blood Pressure 102/68 03/10/2020 9:24 AM CDT Pulse 91 03/10/2020 9:24 AM CDT Temperature 36.9 ??C (98.4 ??F) 03/10/2020 9:24 AM CDT Respiratory Rate 16 03/10/2020 9:24 AM CDT Oxygen Saturation 100% 03/10/2020 9:24 AM CDT Inhaled Oxygen Concentration - - Weight 69.9 kg (154 lb) 03/10/2020 9:24 AM CDT Height - - Body Mass Index 27.28 07/25/2019 12:44 PM RETAIL SALESPERSON documented in this encounter Patient Instructions Patient InstructionsJohnMarek catalan MD - 03/10/2020 9:15 AM CDT Otitis Externa, left and Otitis Externa, right Ciprodex for 7 days ENT follow up in next 1-2 weeks given recurrent otitis documented in this encounter Progress Notes Marek Olivo MD - 03/10/2020 9:15 AM CDT SUBJECTIVE: Tameka Grissom is a 34 year old female who presents with bilateral ear pain for 2 day(s). Severity: moderate Timing:sudden onset Additional symptoms include none. History of recurrent otitis: yes Past Medical History: Diagnosis Date ??? Allergic [...] ??? Wounds and injuries fall in 09/03/16 Current Outpatient Medications Medication Sig Dispense Refill ??? Calcium 600-400 MG-UNIT CHEW ??? ferrous sulfate (FEROSUL) 325 (65 Fe) MG tablet Take 325 mg by mouth daily (with breakfast) ??? ibuprofen (ADVIL/MOTRIN) 800 MG tablet Take 1 tablet (800 mg) by mouth every 6 hours as needed for other (cramping) (Patient not taking: Reported on 12/07/2019) 60 tablet 1 ??? norethindrone (MICRONOR) 0.35 MG tablet Take 1 tablet (0.35 mg) by mouth daily 90 tablet 1 ??? Prenat w/o Y-TS-Mwgnkej-FA-DHA (PNV-DHA) 27-0.6-0.4-300 MG CAPS Social History Tobacco Use ??? Smoking status: [...] Other paternal aunt ??? Cystic Fibrosis Son ROS: Review of systems negative except as stated above. OBJECTIVE: BP 102/68 Pulse 91 Temp 98.4 ??F (36.9 ??C) (Oral) Resp 16 Wt 69.9 kg (154 lb) SpO2 100% BMI 27.28 kg/m?? EXAM: The right TM is normal: no effusions, no erythema, and normal landmarks The right auditory canal is erythematous The left TM is normal: no effusions, no erythema, and normal landmarks The left auditory canal is erythematous and swollen Oropharynx exam is normal: no lesions, erythema, adenopathy or exudate. GENERAL: no acute distress EYES: EOMI, PERRL, conjunctiva clear NECK: supple, non-tender to palpation, no adenopathy noted RESP: lungs clear to auscultation - no rales, rhonchi or wheezes CV: regular rates and rhythm, normal S1 S2, no murmur noted SKIN: no suspicious lesions or rashes ASSESSMENT: Otitis Externa, left and Otitis Externa, right Ciprodex for 7 days - has medication at home from recent infection ENT follow up in next 1-2 weeks given recurrent otitis PLAN: See orders in [employer] documented in this encounter Plan of Treatment Not on filedocumented as of this encounter Visit Diagnoses Diagnosis Infective otitis externa, bilateral - Pr imary documented in this encounter Additional Health Concerns Assessment Noted Time PHQ-9 Depression Total Score: 2 12/08/2019 7:04 AM CDT documented as of this encounter Care Teams Distillery Laborer Relationship Specialty Start Date End Date Annalisa Mark APRN COMMUNICATION ELECTRONIC TECHNICIAN PCP - General Nurse Practitioner 03/22/15 [address] [place], [place] [id number] Annalisa Mark APRN COMMUNICATION ELECTRONIC TECHNICIAN Assigned PCP 01/22/20 02/21/22 [address] [place] [address] documented as of this encounter
--- OUTSIDE RECORDS SUMMARY | 2022-06-06 20:58 | XMS_ITS | Encounter Summary ---
:1985 Author Organization [place] Address [address] [place], [place] [address]. [place] [address] Care Team Providers Name Role Phone Annalisa Mark APRN, CNP Primary Care Provider [phone] Annalisa Mark APRN SENIOR DATA QUALITY ANALYST Unavailable [phone] Encounter Details Date Type Department Care Team Description 03/15/2020 Travel Social History Tobacco Use Types Packs/Day [...] you attend adventism or Patient refused 2021 christian services? Do [...] documented as of this encounter Care Teams Tire Spotter Relationship Specialty Start Date End Date Annalisa Mark APRN SENIOR DATA QUALITY ANALYST PCP - General Nurse Practitioner 03/22/15 [address] [place], [place] [id number] Annalisa Mark APRN SENIOR DATA QUALITY ANALYST Assigned PCP 01/22/20 02/21/22 [address] [place], [place] [id number] documented as of this encounter
--- OUTSIDE RECORDS SUMMARY | 2022-06-06 20:58 | XMS_ITS | Encounter Summary ---
:1985 Author Organization [place] Address [address] [place] [address] Care Team Providers Name Role Phone Deedee, Annalisa Peacock APRN DIRECTOR CLINICAL PHARMACOLOGY Primary Care Provider [phone] Annalisa Mark APRN DIRECTOR CLINICAL PHARMACOLOGY Unavailable [phone] Jacob Carmona MD Unavailable [phone] Reason for Visit Reason Comments Ear Problem left Encounter Details Date Type Department Care Team Description 07/15/2020 Office Visit [facility] Hilary Root Infective otitis Urgent Care Patrica Alston PA-C externa, left (Primary [address] [address] [address] [facility] [id number] [place], [place] [id number] Social History Tobacco Use Types Packs/Day Years [...] you attend episcopalian or Patient refused 2021 holiness services? Do [...] been in contact with No / Unsure 07/15/2020 9:04 AM SPA HOST someone who was confirmed or suspected to have Coronavirus / COVID-19? documented as of this encounter Last Filed Vital Signs Vital Sign Reading Time Taken Comments Blood Pressure 110/80 07/15/2020 9:09 AM SPA HOST Pulse 86 07/15/2020 9:09 AM SPA HOST Temperature 36.7 ??C (98.1 ??F) 07/15/2020 9:09 AM SPA HOST Respiratory Rate 16 07/15/2020 9:09 AM SPA HOST Oxygen Saturation 99% 07/15/2020 9:09 AM SPA HOST Inhaled Oxygen Concentration - - Weight 52.7 kg (116 lb 3.2 oz) 07/15/2020 9:09 AM SPA HOST Height - - Body Mass Index 20.58 05/03/2020 11:32 AM CDT documented in this encounter Patient Instructions Patient InstructionsHilary Root PA-C - 07/15/2020 9:05 AM SPA HOST Follow up with ENT. Keep ears completely dry during the time that patient is being treated. No swimming. Showering is ok, but keep ears away from the water as much as possible. 2. Follow-up if no improvement in pain over the course the next 3 to 4 days. Follow-up sooner if worsening symptoms such as fever develop. 3. May give Tylenol or ibuprofen as needed for pain control. External otitis (also called ???swimmer???s ear?? ) is an infection in the ear canal. It is often caused by bacteria or fungus. It [...] loss may also occur. Home care ?? Do not try to clean the ear canal. This can push pus and bacteria deeper into the canal. ?? Use prescribed ear drops as directed. These help reduce swelling and fight the infection. If an ear wick was placed in the ear canal, apply drops right onto the end of the wick. The wick will draw the medicine into the ear canal even if it is swollen closed. ?? A cotton ball may be loosely placed in the outer ear to absorb any drainage. ?? You may use acetaminophen or ibuprofen to control pain, unless another medicine was prescribed. Note: If you have chronic liver or kidney disease or ever had a stomach ulcer or GI bleeding, talk to your healthcare provider before taking any of these medicines. ?? Do not allow water to get into your ear when bathing. Also, don't swim until the infection has cleared. Prevention ?? Keep your ears dry. This helps lower the risk of infection. Dry your ears with a towel or chair inspector and leveler after getting wet. Also, use ear plugs when swimming. ?? Do not stick any objects in the ear to remove wax. ?? If you feel water trapped in your ear, use ear drops right away. You can get these drops over thecounter at most drugstores. They work by removing [...] occurs or gets worse ?? Headache ?? Painful or stiff neck ?? Drowsiness or confusion ?? Fever of 100.4??F (38??C) or higher, or as directed by your healthcare provider ?? Seizure Date Last Reviewed: 04/26/2017 ?? [id number] [employer]. [address] [place] [address], [place] [address]. All rights reserved. This information is not intended as a substitute for professional medical care. Always follow your healthcare professional's instructions. HOST documented in this encounter Progress Notes Hilary Root PA-C - 07/15/2020 9:05 AM CST HPI: Tameka Grissom is a 35 year old female who presents for evaluation of moderate L ear pain onset yesterday. She has a history of recurrent otitis externa & cellulitis in both ears. She was referredto ENT several months ago but hasn't gone yet. Symptoms are constant in duration. No treatments tried. Patient reports no fever/chills, headache, ear drainage, hearing loss, congestion, rhinorrhea, or any other symptoms. Past Medical History: [...] Other paternal aunt ??? Cystic Fibrosis Son Review of Systems Constitutional: Negative for chills and fever. HENT: Positive for ear pain. Negative for congestion, rhinorrhea and sore throat. Respiratory: Negative for cough and shortness of breath. Gastrointestinal: Negative for diarrhea, nausea and vomiting. Neurological: Negative for headaches. Vitals: 07/15/20 0909 BP: 110/80 BP Location: Right arm Patient Position: Chair Cuff Size: Adult Regular Pulse: 86 Resp: 16 Temp: 98.1 ??F (36.7 ??C) TempSrc: Oral SpO2: 99% Weight: 52.7 kg (116 lb 3.2 oz) Physical Exam Vitals signs and nursing note reviewed. HENT: Head: Normocephalic and atraumatic. Right Ear: Tympanic membrane normal. Left Ear: Swelling (ear canal) and tenderness (tragus & auricle) present. No drainage. Ears: Comments: Skin of both ear canals peeling, dry, and mildly erythematous Cardiovascular: Rate and Rhythm: Normal rate and regular rhythm. Heart sounds: Normal heart sounds. Pulmonary: Effort: Pulmonary effort is normal. Breath sounds: Normal breath sounds. Musculoskeletal: Normal range of motion. Skin: General: Skin is warm and dry. Neurological: Mental Status: She is alert and oriented to person, place, and time. Labs/Imaging: No results found for this or any previous visit (from the past 24 hour(s)). Clinical Decision Making: Symptoms c/w otitis externa. Rx Ciprodex. Suspect patient has eczema vs psoriasis of ears which is predisposing her to infection. Did advise she f/u with ENT, she declines another referral and says she has an office she can contact. See patient instructions below. At the end of the encounter, I discussed results, diagnosis, medications. Discussed red flags for immediate return to clinic/ER, as well as indications for follow up if no improvement. Patient understood and agreed to plan. Patient was stable for discharge. ICD-10-CM 1. Infective otitis externa, left H60.392 ciprofloxacin-dexamethasone (CIPRODEX) 0.3-0.1 % otic suspension Follow up with ENT. GLENYS Ricardo, [facility]oren[facility] Patient Instructions Follow up with ENT. Keep ears completely dry during the time that patient is being treated. No swimming. Showering is ok, but keep ears away from the water as much as possible. 2. Follow-up if no improvement in pain over the course the next 3 to 4 days. Follow-up sooner if worsening symptoms such as fever develop. 3. May give Tylenol or ibuprofen as needed for pain control. External otitis (also called ???swimmer???s ear?? ) is an infection in the ear canal. It is often caused by bacteria or fungus. It [...] loss may also occur. Home care ?? Do not try to clean the ear canal. This can push pus and bacteria deeper into the canal. ?? Use prescribed ear drops as directed. These help reduce swelling and fight the infection. If an ear wick was placed in the ear canal, apply drops right onto the end of the wick. The wick will draw the medicine into the ear canal even if it is swollen closed. ?? A cotton ball may be loosely placed in the outer ear to absorb any drainage. ?? You may use acetaminophen or ibuprofen to control pain, unless another medicine was prescribed. Note: If you have chronic liver or kidney disease or ever had a stomach ulcer or GI bleeding, talk to your healthcare provider before taking any of these medicines. ?? Do not allow water to get into your ear when bathing. Also, don't swim until the infection has cleared. Prevention ?? Keep your ears dry. This helps lower the risk of infection. Dry your ears with a towel or chair inspector and leveler after getting wet. Also, use ear plugs when swimming. ?? Do not stick any objects in the ear to remove wax. ?? If you feel water trapped in your ear, use ear drops right away. You can get these drops over thecounter at most drugstores. They work by removing [...] occurs or gets worse ?? Headache ?? Painful or stiff neck ?? Drowsiness or confusion ?? Fever of 100.4??F (38??C) or higher, or as directed by your healthcare provider ?? Seizure Date Last Reviewed: 04/26/2017 ?? [id number] [employer]. [address] [place] [address]. All rights reserved. This information is not intended as a substitute for professional medical care. Always follow your healthcare professional's instructions. HOST documented in this encounter Plan of Treatment Not on filedocumented as of this encounter Visit Diagnoses Diagnosis Infective otitis externa, left - Primary documented in this encounter Additional Health Concerns Assessment Noted Time PHQ-9 Depression Total Score: 2 12/08/2019 7:04 AM CDT documented as of this encounter Care Teams Client Representative Relationship Specialty Start Date End Date Annalisa Mark, PCP - General Nurse Practitioner 03/22/15 PRESS OFFBEARER DIRECTOR CLINICAL PHARMACOLOGY [address] [place] [address] Annalisa Mark, Assigned PCP 01/22/20 2 PRESS OFFBEARER DIRECTOR CLINICAL PHARMACOLOGY [address] [place] [address] Jacob Camrona Assigned OBGYN Provider 05/18/20 MD Antony [facility] [place] [address] documented as of this encounter
--- OUTSIDE RECORDS SUMMARY | 2022-06-06 20:58 | XMS_ITS | Encounter Summary ---
:1985 Author Organization [place] Address [address] [place] [address] Care Team Providers Name Role Phone Deedee, Annalisa Peacock APRN, CNP Primary Care Provider [phone] DeedeeAnnalisa Madonna STANLEY WOOD CALKER Unavailable [phone] Reason for Visit Reason Comments Urgent Care Ear Problem Possible Rt ear cellulitis. Sx x2.5 days- swollen ear, dryness inside ear, painful, sore throat. D enies discharge or fever. Hx of Lt ear cellulitis before with same Sx. Encounter Details Date Type Department Care Team Description 02/12/2020 Office Visit [facility] Rashmi Escobedo Sorethr oat (Primary Dx); Urgent Care Patrica quan MD Infective otitis externa, bilateral; [address] Eczema, unspecified type; [place], [place] [address] Cellulitis of other specified site [address] [place], [place] [phone] [address] Social History Tobacco Use Types Packs/Day Years [...] or relatives? How often do you attend buddhist or Patient refused 2021 mormon services? Do you belong to any clubs or No 10/17/2021 organizations such as buddhist groups, unions, fraternal or athletic groups, or [...] been in contact with No / Unsure 02/12/2020 9:43 AM CDT someone who was confirmed or suspected to have Coronavirus / COVID-19? documented as of this encounter Last Filed Vital Signs Vital Sign Reading Time Taken Comments Blood Pressure 104/62 02/12/2020 10:12 AM CDT Pulse 86 02/12/2020 10:12 AM CDT Temperature 36.7 ??C (98.1 ??F) 02/12/2020 10:12 AM CDT Respiratory Rate - - Oxygen Saturation 98% 02/12/2020 10:12 AM CDT Inhaled Oxygen Concentration - - Weight - - Height - - Body Mass Index - - documented in this encounter Progress Notes Rashmi Escobedo MD - 02/12/2020 9:45 AM CDT Chief Complaint Patient presents with ??? Urgent Care ??? Ear Problem Possible Rt ear cellulitis. Sx x2.5 days- swollen ear, dryness inside ear, painful, sore throat. Denies discharge or fever. Hx of Lt ear cellulitis before with same Sx. SUBJECTIVE: Tameka Grissom is a 34 year old female with h/o otitis externa who presents with both ears right ear more than left ear pain, fullness, discharge and pressure for 2.5 day(s). Severity: moderate Timing:sudden onset Additional symptoms include sore throat. Eczema involving flexor aspects of both wrists She started noticing some posterior neck pain with no stiffness for few days Denies any nausea or headache symptoms History of recurrent otitis: no Past Medical History: Diagnosis Date ??? Allergic [...] Outpatient Medications Medication Sig Dispense Refill ??? cephALEXin (KEFLEX) 500 MG capsule Take 1 capsule (500 mg) by mouth 3 times daily for 10 days 30capsule 0 ??? ciprofloxacin-dexamethasone (CIPRODEX) 0.3-0.1 % otic suspension Place 4 drops into both ears 2 times daily for 7 days 1 Bottle 1 ??? clobetasol (TEMOVATE) 0.05 % external cream Apply topically 2 times daily for 5 days 60 g 0 ??? Calcium 600-400 MG-UNIT CHEW ??? ferrous [...] daily 90 tablet 1 ??? Prenat w/o R-AN-Mcoadrn-FA-DHA (PNV-DHA) 27-0.6-0.4-300 MG CAPS Social History Tobacco Use ??? Smoking status: Never Smoker ??? Smokeless tobacco: Never Used Substance Use Topics ??? Alcohol use: Yes Alcohol/week: 0.0 standard drinks Comment: Occaisional ROS: 10 point ROS of systems including Constitutional, Eyes, Respiratory, Cardiovascular, Gastroenterology, Genitourinary, Integumentary, Muscularskeletal, Psychiatric were all negative except for pertinentpositives noted in my HPI OBJECTIVE: BP 104/62 (BP Location: Right arm, Patient Position: Chair, Cuff Size: Adult Regular) Pulse 86 Temp 98.1 ??F (36.7 ??C) (Oral) SpO2 98% EXAM: The right TM is normal: no effusions, no erythema, and normal landmarks The right auditory canal is erythematous, obstructed by drainage, swollen and tender The left TM is normal: no effusions, no erythema, and normal landmarks The left auditory canal is erythematous, normal and without drainage, edema or erythema and swollen Oropharynx exam is normal: no lesions, erythema, adenopathy or exudate. GENERAL: no acute distress EYES: EOMI, PERRL, conjunctiva clear NECK: supple, non-tender to palpation, no adenopathy noted RESP: lungs clear to auscultation - no rales, rhonchi or wheezes CV: regular rates and rhythm, normal S1 S2, no murmur noted SKIN: there is some redness noted over the rt posterior ear area with some inflammed skin noted Also CHRONIC ECZEMATOUS RASH: Located flexor aspect of both wrists . Has redness, irritation, some thickening, exoriation, with parched and flakey scaled appearance--consistent with chronic eczematous inflammation. PSYCH: mentation appears normal D/d- otitis externa /cellulitis/ chronic eczema/allergic reaction/atopic dermatitis ASSESSMENT: Tameka was seen today for urgent care and ear problem. Diagnoses and all orders for this visit: Sorethroat - Streptococcus A Rapid Scr w Reflx to PCR - Group A Streptococcus PCR Throat Swab Infective otitis externa, bilateral - ciprofloxacin-dexamethasone (CIPRODEX) 0.3-0.1 % otic suspension; Place 4 drops into both ears 2 times daily for 7 days - cephALEXin (KEFLEX) 500 MG capsule; Take 1 capsule (500 mg) by mouth 3 times daily for 10 days Eczema, unspecified type - clobetasol (TEMOVATE) 0.05 % external cream; Apply topically 2 times daily for 5 days Cellulitis of other specified site PLAN: See orders in [facility] Discussed with pt about the findings She is currently breast feeding discussed about starting the medications as directed Follow up if symptoms fail to improve or worsens Pt understood and agreed with plan did spent>35 minutes with patient and > 50% of the time was for answering questions, discussing findings, counseling and coordination of care documented in this encounter Plan of Treatment Not on filedocumented as of this encounter Procedures Procedure Name Priority Date/Time Associated Comments Diagnosis STREPTOCOCCUS A RAPID Routine 02/12/2020 10:36 Sorethroat Re sults for this SCREEN W REFELX TO PCR AM CDT proce dure are in the results section. GROUP A STREPTOCOCCUS Routine 02/12/2020 10:36 Sorethroat Re sults for this PCR THROAT SWAB AM CDT procedure ar e in the results section. documented in this encounter Results Group A Streptococcus PCR Throat Swab (02/12/2020 10:36 AM CDT) [facility] Method Time Signature Specimen Throat 02/12/2020 [facility] Description 10:44 AM [facility] Strep Group A Not Detected NDET^Not 02/12/2020 [facility] PCR Detected 10:10 PM [facility] Comment: Group A Streptococcus DNA is not detecte d. FDA approved assay performed using [employer] GeneXpert real-time PCR. Specimen Anatomical Collection Method Collection Time Receive d Time (Source) Location / / Volume Laterality Specimen from 02/12/2020 10:36 02/12/2020 throat AM CDT 10:37 AM CDT (specimen) Rashmi Escobedo MD LAB - MICRO GENERAL ORDERABL ES Performing Organization Address City/State/ZIP Code Phon e Number [facility] [address] [place] [address] [facility] [address] [place] [address] Streptococcus A Rapid Scr w Reflx to PCR (02/12/2020 10:36 AM CDT) [facility] Method Time Signature Strep Specimen Throat 02/12/2020 [facility] Description 10:24 AM CDT [facility] Streptococcus Negative NEG^Negat 02/12/2020 [facility] Group A Rapid liudmila 10:44 AM CDT [facility] Comment: No Group A streptococcal antigen detecte d by immunoassay. Confirmatory testing in progress. Specimen Anatomical Collection Method Collection Time Receive d Time (Source) Location / / Volume Laterality Specimen from 02/12/2020 10:36 02/12/2020 throat AM CDT 10:37 AM CDT (specimen) Rashmi Escobedo MD LAB - MICRO GENERAL ORDERABL ES Performing Organization Address City/State/ZIP Code Phon e Number [facility] [address] [place] [address] documented in this encounter Visit Diagnoses Diagnosis Sorethroat - Primary Acute pharyngitis Infective otitis externa, bilateral Eczema, unspecified type Cellulitis of other specified site documented in this encounter Additional Health Concerns Assessment Noted Time PHQ-9 Depression Total Score: 2 12/08/2019 7:04 AM CDT documented as of this encounter Care Teams Atomic Welder Relationship Specialty Start Date End Date Annalisa Mark APRN WOOD CALKER PCP - General Nurse Practitioner 03/22/15 [address] [place], [place] [phone] Annalisa Mark APRN WOOD CALKER Assigned PCP 01/22/20 02/21/22 [address] [place], [place] [id number] documented as of this encounter
--- OUTSIDE RECORDS SUMMARY | 2022-06-06 20:58 | XMS_ITS | Encounter Summary ---
:1985 Author Organization [place] Address [address] [facility] [place] [address] Care Team Providers Name Role Phone Deedee, Annalisa Peacock APRN GUMMED TAPE PRESS OPERATOR Primary Care Provider [phone] Annalisa Mark APRN GUMMED TAPE PRESS OPERATOR Unavailable [phone] Jacob Carmona MD Unavailable [phone] Reason for Visit Reason Comments Urgent Care Ear Problem right ear pain for couple da ys, started with a little scratch now very painful, ENT appt next Encounter Details Date Type Department Care Team Description 10/11/2020 Office Visit [facility], Akilit is of right Urgent Care Patrica quan PA-C external ear (Primary [id number] [address]ina COEUR D ALENE Dx) [place] [place] [facility] [id number] [facility] [phone] [place], [place] [id number] Social History Tobacco Use Types Packs/Day Years [...] you attend orthodox or Patient refused 2021 rastafarian services? Do you belong to any clubs [...] Sign Reading Time Taken Comments Blood Pressure 112/78 10/11/2020 3:27 PM CDT Pulse 84 10/11/2020 3:27 PM CDT Temperature 36.9 ??C (98.4 ??F) 10/11/2020 3:27 PM CDT Respiratory Rate 16 10/11/2020 3:27 PM CDT Oxygen Saturation 100% 10/11/2020 3:27 PM CDT Inhaled Oxygen Concentration - - Weight 52.6 kg (116 lb) 10/11/2020 3:27 PM CDT Height 160 cm (5' 3) 10/11/2020 3:27 PM CDT Body Mass Index 20.55 10/11/2020 3:27 PM CDT documented in this encounter Patient Instructions Patient InstructionsAlNini morris PA-C - 10/11/2020 3:25 PM CDT Patient was educated on the natural course of condition. Take medication as prescribed. Side effectsdiscussed. Conservative measures discussed including sgij-pnq-vdaxwlm analgesics (Tylenol or Ibuprofen). Observe carefully for any signs of increased redness or pain in the affected area. See your primary care provider if symptoms worsen or do not improve in 3 days. Seek emergency care if you develop severe pain, streaking, or fever. documented in this encounter Progress Notes Nini Costa PA-C - 10/11/2020 3:25 PM CDT cepha Nini Costa PA-C - 10/11/2020 3:25 PM CDT URGENT CARE VISIT: SUBJECTIVE: Tameka Grissom is a 35 year old female presenting with a chief complaint of right external ear pain. Onset was 3 day(s) ago. She denies the following symptoms: fever, chills, stuffy nose, cough - non- productive and sore throat Course of illness is worsening. Treatment measures tried include Bacitracin with no relief of symptoms. Predisposing factors include had a little scratch/pimple then worsened. Has ENT appointment next week. PMH: Past Medical History: Diagnosis Date ??? Allergic [...] ??? Wounds and injuries fall in 09/03/16 Allergies: Patient has no known allergies. Medications: Current Outpatient Medications Medication Sig Dispense Refill ??? Calcium 600-400 MG-UNIT CHEW ??? cephALEXin (KEFLEX) 500 MG capsule Take 1 capsule (500 mg) by mouth 3 times daily for 7 days 21 capsule 0 ??? Prenat w/o Q-PK-Bspryum-FA-DHA (PNV-DHA) 27-0.6-0.4-300 MG CAPS ??? fluconazole (DIFLUCAN) 150 MG tablet Take 150 mg today, may repeat in 7 days if needed. (Patientnot taking: Reported on 10/11/2020) 2 tablet 0 ??? norgestim-eth estrad triphasic (ORTHO TRI-CYCLEN) 0.18/0.215/0.25 MG-35 MCG tablet Take 1 tabletby mouth daily (Patient not taking: Reported on 10/11/2020) 84 tablet 3 Social History: Social History Tobacco Use ??? Smoking status: Never Smoker ??? Smokeless tobacco: Never Used Substance Use Topics ??? Alcohol use: Yes Alcohol/week: 0.0 standard drinks Comment: Occaisional ROS: Review of systems negative except as stated above. OBJECTIVE: BP 112/78 Pulse 84 Temp 98.4 ??F (36.9 ??C) (Oral) Resp 16 Ht 1.6 m (5' 3) Wt 52.6 kg (116 lb) SpO2 100% BMI 20.55 kg/m?? GENERAL APPEARANCE: healthy, alert and no distress EYES: Conjunctiva clear HENT: ear canals and TM's normal. Nose and mouth without ulcers, erythema or lesions. Entrance to right ear canal has small papule with honey colored crust and surrounding erythema. It is TTP. NECK: supple, nontender, no lymphadenopathy RESP: lungs clear to auscultation - no rales, rhonchi or wheezes CV: regular rates and rhythm, normal S1 S2, no murmur noted SKIN: no suspicious lesions or rashes ASSESSMENT: ICD-10-CM 1. Cellulitis of right external ear H60.11 cephALEXin (KEFLEX) 500 MG capsule PLAN: Patient Instructions Patient was educated on the natural course of condition. Take medication as prescribed. Side effectsdiscussed. Conservative measures discussed including udvp-zlo-kijnrjp analgesics (Tylenol or Ibuprofen). Observe carefully for any signs of increased redness or pain in the affected area. See your primary care provider if symptoms worsen or do not improve in 3 days. Seek emergency care if you develop severe pain, streaking, or fever. Patient verbalized understanding and is agreeable to plan. The patient was discharged ambulatory andin stable condition. Nini Costa PA-C .................... 10/11/2020 4:44 PM documented in this encounter Plan of Treatment Not on filedocumented as of this encounter Visit Diagnoses Diagnosis Cellulitis of right external ear - Prima ry Infective otitis externa, unspecified documented in this encounter Additional Health Concerns Assessment Noted Time PHQ-9 Depression Total Score: 2 12/08/2019 7:04 AM CDT documented as of this encounter Care Teams Lead Electrical Controls Engineer Relationship Specialty Start Date End Date Annalisa Mark, PCP - General Nurse Practitioner 03/22/15 PHOTOENGRAVING ETCHER APPRENTICE GUMMED TAPE PRESS OPERATOR [address] [place] [address] Annalisa Mark, Assigned PCP 01/22/20 2 PHOTOENGRAVING ETCHER APPRENTICE GUMMED TAPE PRESS OPERATOR [address] [place] [address] Jacob Carmona Assigned OBGYN Provider 05/18/20 MD [place] [address] documented as of this encounter
--- OUTSIDE RECORDS SUMMARY | 2022-06-06 20:58 | XMS_ITS | Encounter Summary ---
:1985 Author Organization [place] Address [address] [place], [place] [address]. [place] [address] Care Team Providers Name Role Phone Annalisa Mark APRN, CNP Primary Care Provider [phone] Annalisa Mark APRN VIDEO GAME ENGINEER Unavailable [phone] Encounter Details Date Type Department Care Team Description 05/03/2020 Travel Social History Tobacco Use Types Packs/Day [...] or relatives? How often do you attend druze or Patient refused 2021 religion services? Do you belong to any clubs or No 10/17/2021 organizations such as druze groups, unions, fraternal or athletic groups, or [...] documented as of this encounter Care Teams Web Marketing Specialist Relationship Specialty Start Date End Date Annalisa Mark APRN VIDEO GAME ENGINEER PCP - General Nurse Practitioner 03/22/15 [address] [place], [place] [phone] Annalisa Mark APRN VIDEO GAME ENGINEER Assigned PCP 01/22/20 02/21/22 [address] [place], [place] [id number] documented as of this encounter
--- OUTSIDE RECORDS SUMMARY | 2022-06-06 20:58 | XMS_ITS | Encounter Summary ---
:1985 Author Organization [place] Address [address] [facility] [place] [address] Care Team Providers Name Role Phone Annalisa Mark APRN, CNP Primary Care Provider [phone] Deedee Annalisa Peacock APRN STEEL TIER Unavailable Encounter Details Date Type Department Care Team Description 02/01/[address] [facility], [facility] Non-Provider POST-YOLIS Srvcs DEPRESSION SCALE [address] [place] [address] [place] [address] WELL-CHILD VISITS [phone] Social History Tobacco Use Types Packs/Day Years [...] or relatives? How often do you attend rastafari or Patient refused 2021 hindu services? Do you belong to any clubs or No 10/17/2021 organizations such as rastafari groups, unions, fraternal or athletic groups, or [...] documented as of this encounter Care Teams Prevocational/Rehabilitation Counselor Relationship Specialty Start Date End Date Ananlisa Mark APRN STEEL TIER PCP - General Nurse Practitioner 03/22/15 [address] [place], [place] [phone] Annalisa Mark APRN STEEL TIER Assigned PCP 01/22/20 02/21/22 [address] [place] [address] documented as of this encounter
--- OUTSIDE RECORDS SUMMARY | 2022-06-06 20:58 | XMS_ITS | Encounter Summary ---
:1985 Author Organization [place] Address [address] [place], [place] [address]. [place] [address] Care Team Providers Name Role Phone Annalisa Mark APRN, CNP Primary Care Provider [phone] Annalisa Mark APRN PIZZA COOK Unavailable [phone] Encounter Details Date Type Department Care Team Description 02/12/2020 Travel Social History Tobacco Use Types Packs/Day [...] you attend druze or Patient refused 2021 methodist services? Do you belong to any clubs [...] as of this encounter Care Teams Field Marketing Representative Relationship Specialty Start Date End Date Annalisa Mark APRN PIZZA COOK PCP - General Nurse Practitioner 03/22/15 [address] [place], [place] [phone] Annalisa Mark APRN PIZZA COOK Assigned PCP 01/22/20 02/21/22 [address] [place], [place] [phone] documented as of this encounter
--- OUTSIDE RECORDS SUMMARY | 2022-06-06 20:58 | XMS_ITS | Encounter Summary ---
:1985 Author Organization [place] Address [address] [facility] [place] [address] Care Team Providers Name Role Phone Annalisa Mark APRN JUNIOR SOFTWARE ENGINEER Primary Care Provider [phone] Annalisa Mark APRN JUNIOR SOFTWARE ENGINEER Unavailable [phone] Mike Martínez MD Unavailable [phone] Reason for Visit Reason Comments Physical Encounter Details Date Type Department Care Team Description 10/23/2020 Office Visit [facility] Mike Martínez for gynecological examination without abnormal finding (Primary Dx); Clinic Deborah Hardy MD Screening for cervical cancer [address] [address] [address] [place] [address] Social History [...] attend roman catholic or Patient refused 2021 anglican services? Do [...] Sign Reading Time Taken Comments Blood Pressure 94/54 10/23/2020 3:02 PM CDT Pulse - - Temperature - - Respiratory Rate - - Oxygen Saturation - - Inhaled Oxygen Concentration - - Weight 51.8 kg (114 lb 4.8 oz) 10/23/2020 3:02 PM CDT Height - - Body Mass Index 20.25 10/11/2020 3:27 PM CDT documented in this encounter Progress Notes Mike Martínez MD - 10/23/2020 3:00 PM CDT SUBJECTIVE: Marcelino is a 35 year old female who presents for annual exam. 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 She underwent cryotherapy and a LEEP. More recent Paps and HPV screening has been normal. Last Pap 03/2018 WNL with neg HPV. She did have abenign endocervical polyp excised in 02/2019. No LMP recorded.. Menses are regular q 28-30 days and normal lasting 4 days. Using oral contraceptives for contraception. She is not currently considering . Besides routine health maintenance, she would like to discuss Pap screening and breast cancer screening.. GYNECOLOGIC HISTORY: Marcelino is sexually active with male partne and is currently in a monogamous relationship. History sexually transmitted infections:No STD history History of abnormal Pap smear: Last 3 Pap and HPV Results: PAP / HPV Latest Ref Rng & Units 04/19/2018 08/26/2017 10/20/2014 PAP - NIL NIL NIL HPV 16 DNA NEG:Negative Negative Negative - HPV 18 DNA NEG:Negative Negative Negative - OTHER HR HPV NEG:Negative Negative Negative - Family history of breast CA: No Family history of uterine/ovarian CA: No Family history of colon CA: No HISTORY: OB History Para Term AB Living 3 2 2 0 1 2 SAB TAB Ectopic Multiple Live Births 1 0 0 0 2 # Outcome Date GA Lbr Chema/2nd Weight Sex Delivery Anes PTL Lv 3 Term 09/19/19 40w3d 03:36 / 00:45 3.35 kg (7 lb 6.2 oz) F Vag-Spont EPI N RICKEY Name: Shubham Apgar1: 8 Apgar5: 8 2 Term 11/16/16 41w0d 09:00 / 02:59 4.15 kg (9 lb 2.4 oz) M Vag-Forceps IV, EPI N RICKEY Complications: Prolonged PROM (>18 hours) Name: Charan [...] Other paternal aunt ??? Cystic Fibrosis Son Social History Socioeconomic History ??? Marital status: Single Spouse name: Oren ??? Number of children: 1 ??? Years of education: None ??? Highest education level: Bachelor's degree (e.g., BA, AB, BS) Occupational History ??? 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 Financial resource strain: Not hard at all ??? Food insecurity Worry: Never true Inability: Never true ??? Transportation needs Medical: No Non-medical: No Tobacco Use ??? Smoking status: Never Smoker ??? Smokeless tobacco: Never Used Substance and Sexual Activity ??? Alcohol use: Yes Alcohol/week: 0.0 standard drinks Comment: Occaisional ??? Drug use: No ??? Sexual activity: Yes Partners: Male control/protection: OCP Lifestyle ??? Physical activity Days per week: None Minutes per session: None ??? Stress: None Relationships ??? Social connections Talks on phone: None Gets together: None Attends anglican service: None Active member of club or organization: None Attends meetings of clubs or organizations: None Relationship status: None ??? Intimate partner violence Fear of current or ex partner: None Emotionally abused: None Physically abused: None Forced sexual activity: None Other Topics Concern ??? Parent/sibling w/ CABG, MO or angioplasty before 65F 55M? Not Asked Social History Narrative ??? None Current Outpatient Medications: ??? Calcium 600-400 MG-UNIT CHEW, , Disp: , Rfl: ??? fluconazole (DIFLUCAN) 150 MG tablet, Take 150 mg today, may repeat in 7 days if needed. (Patient not taking: Reported on 10/11/2020), Disp: 2 tablet, Rfl: 0 ??? norgestim-eth estrad triphasic (ORTHO TRI-CYCLEN) 0.18/0.215/0.25 MG-35 MCG tablet, Take 1 tablet by mouth daily (Patient not taking: Reported on 10/11/2020), Disp: 84 tablet, Rfl: 3 ??? Prenat w/o X-FA-Nnrftbz-FA-DHA (PNV-DHA) 27-0.6-0.4-300 MG CAPS, , Disp: , Rfl: No Known Allergies Past medical, surgical, social and family history were reviewed and updated in [facility]. ROS: 12 point review of systems negative other than symptoms noted below. OBJECTIVE: EXAM: Wt 51.8 kg (114 lb 4.8 oz) BMI 20.25 kg/m?? BMI: Body mass index is 20.25 kg/m??. General: Alert and oriented, no distress. Psychiatric: Mood and affect within normal limits. Skin: Warm and dry, no lesions, rashes or discolorations. Neck: Neck supple. Thyroid palpbably normal in size and without nodularity. Cardiovascular: Regular rate and rhythm, no murmurs, rubs or gallops. Lungs: Clear to auscultation bilaterally, breathing is unlabored. Breasts: Symmetric, no skin changes. No dominant masses bilaterally. Lymph: No cervical, supraclavicular, infraclavicular, axillary or [...] counseling, as reflected in patient instructions Contraception reports that she has never smoked. She has never used smokeless tobacco. ASSESSMENT/PLAN: 35 year old female with satisfactory annual exam (Z01.419) Encounter for gynecological examination without abnormal finding (primary encounter diagnosis) Comment: Pap/HPV obtained today Distant Hx of cervical dysplasia with no abnormalities x 10 years Axel Martínez MD documented in this encounter Nursing Notes Kerri Roa CMA - 10/23/2020 3:00 PM CDT Chief Complaint Patient presents with ??? Physical initial BP 94/54 Wt 51.8 kg (114 lb 4.8 oz) BMI 20.25 kg/m?? Estimated body mass index is 20.25 kg/m?? as calculated from the following: Height as of 10/11/20: 1.6 m (5' 3). Weight as of this encounter: 51.8 kg (114 lb 4.8 oz). BP completed using cuff size regularDanial Roa CMA documented in this encounter Miscellaneous Notes Addendum Note - Kerri Roa CMA - 10/23/2020 3:00 PM CDT Addended by: KERRI ROA on: 10/23/2020 03:57 PM Modules accepted: Orders documented in this encounter Plan of Treatment Not on filedocumented as of this encounter Procedures Procedure Name Priority Date/Time Associated Diagnosis Comme nts HPV HIGH RISK Routine 10/23/2020 3:58 PM Encounter for Results for this TYPES DNA CERVICAL CDT gynecological procedur e are in examination without the resu lts abnormal finding section. Screening for cervical cancer PAP IMAGED THIN Routine 10/23/2020 3:57 PM Encounter for Resul ts for this LAYER SCREEN CDT gynecological procedure are in examination without the resu lts abnormal finding section. Screening for cervical cancer documented in this encounter Results HPV High Risk Types DNA Cervical (10/23/2020 3:58 PM CDT) [employer] Method Time Signature HPV Source SurePath 10/23/2020 [place] 3:58 PM CDT [facility] HPV 16 DNA Negative NEG^Negat 10/30/2020 [facility] 12:[address] [facility] HPV 18 DNA Negative NEG^Negat 10/30/2020 [facility] 12:[address] [facility] Other HR HPV Negative NEG^Negat 10/30/2020 [facility] 12:[address] [facility] Final This 10/30/2020 [facility] patient's 12:37 PM CDT [facility] sample is [facility] negative for [place] HPV DNA. Comment: This test was developed and its performa nce characteristics determined by the [facility], [facility]. It has not been cleared or approved by the FDA. The laboratory is regulated under CLIA as qualified to perform high-compl exity testing. This test is used for clinical purposes. It should not be rega rded as investigational or for research. (Note) METHODOLOGY: ??The Marina [employer]y 4800 syst em uses automated extraction, simultaneous amplification of HPV (L1 re gion) and beta-globin, ?? followed by ??real time detection of flu orescent labeled HPV and beta globin using specific oligonucleotide pr obes . The test specifically identifies types HPV 16 DNA and HPV 18 D NA while concurrently detecting the rest of the high risk type s (31, 33, 35, 39, 45, 51, 52, 56, 58, 59, 66 or 68). COMMENTS: ??This test is not intended fo r use as a screening device for women under age 30 with normal cervi yaakov cytology. ??Results should be correlated with cytologic and histolo gic findings. Close clinical followup is recommended. Specimen Description Cervical Cells 10/23/2020 3:5 8 PM CDT [facility] Specimen Anatomical Collection Method Collection Time Receive d Time (Source) Location / / Volume Laterality Cervical Cells 10/23/2020 3:58 PM 021 4:03 CDT PM CDT Mike Martínez MD LAB - BLOOD ORDERABLES Performing Organization Address City/State/ZIP Code Phon e Number [facility] [address] [place] [address] Pap imaged thin layer screen with HPV - recommended age 30 - 65 years (select HPV order below) (10/23/2020 3:57 PM CDT) Component Value Ref Test Analysis Performed At [employer] [facility] [employer] Range Method Time Signature PAP NIL COPATH Copath Report [place] Patient Name: MARCELINO DALEY MR#: [id number] Specimen #: [id number] Collected: 10/23/2020 Received: 10/24/2020 Reported: 10/26/2020 08:23 Ordering Phy(s): MIKE MARTÍNEZ For improved result formatting, select 'View Enhanced Report Format' under Linked Documents section. SPECIMEN/STAIN PROCESS: Pap imaged thin layer prep screening (Surepath, FocalPoint w ith guided screening) ? Pap-Cyto x 1, HPV ordered x 1 SOURCE: Cervical, endocervical ---- Pap imaged thin layer prep screening (Surepath, FocalPoint with guided screening) SPECIMEN ADEQUACY: Satisfactory for evaluation. -Transformation zone component present. CYTOLOGIC INTERPRETATION: Negative for intraepithelial lesion or malignancy Electronically signed out by: LANDEN Alexandre (ASCP) CLINICAL HISTORY: LMP: 10/14/20 Oral Control Pill, A previous normal pap Date of Last Pap: 04/19/18, Papanicolaou Test Limitations: ??Cervical cytology is a sc reening test with limited sensitivity; regular screening is critical for cancer prevention; Pap tests are p rimarily effective for the diagnosis/prevention of squamous cell carcinoma, not adenocarcinomas or other cancer s. COLLECTION SITE: Client: ??[facility] Location: [facility] () The technical component of this testing was completed at the [facility], with the professional compo nent performed at the [facility], [address] [place] [phone] ([phone]) Specimen (Source) Anatomical Collection Method Collection Time Re ceived Time Location / / Volume Laterality Cytologic 10/23/2020 3:57 10/24/2020 2 :30 material PM CDT PM CDT (specimen) Mike Martínez MD LAB - OPTIME CLINICAL SPECIM EN Performing Organization Address City/State/ZIP Code Phon e Number [place] documented in this encounter Visit Diagnoses Diagnosis Encounter for gynecological examination without abnormal finding - Primary Routine gynecological examination Screening for cervical cancer Screening for malignant neoplasm of the cervix documented in this encounter Additional Health Concerns Assessment Noted Time PHQ-9 Depression Total Score: 2 12/08/2019 7:04 AM CDT documented as of this encounter Care Teams Barber Relationship Specialty Start Date End Date Annalisa Mark, PCP - General Nurse Practitioner 03/22/15 STRIP TANK TENDER JUNIOR SOFTWARE ENGINEER [address] [place], [place] [phone] Annalisa Mark, Assigned PCP 01/22/20 2 STRIP TANK TENDER JUNIOR SOFTWARE ENGINEER [address] [address] [place], [place] [phone] Mike Martínez Assigned OBGYN Provider 05/18/20 MD Antony [address] [place], [place] [phone] documented as of this encounter
--- OUTSIDE RECORDS SUMMARY | 2022-06-06 20:58 | XMS_ITS | Encounter Summary ---
:1985 Author Organization [place] Address [address] [place], [place] [address]. [place] [address] Care Team Providers Name Role Phone Annalisa Mark APRN SHEEP KILLER Primary Care Provider [phone] Annalisa Mark APRN SHEEP KILLER Unavailable [phone] Jacob Carmona MD Unavailable [phone] Encounter Details Date Type Department Care Team Description 07/15/2020 Travel Social History Tobacco Use Types Packs/Day [...] you attend taoist or Patient refused 2021 mandaeism services? Do you belong to any clubs [...] with No / Unsure 07/15/2020 9:04 AM ANATOMIC PATHOLOGY MANAGER someone who was confirmed or suspected to have Coronavirus / COVID-19? documented as of this encounter Plan of Treatment Not on filedocumented as of this encounter Visit Diagnoses Not on filedocumented in this encounter Additional Health Concerns Assessment Noted Time PHQ-9 Depression Total Score: 2 12/08/2019 7:04 AM CDT documented as of this encounter Care Teams Campus Monitor Relationship Specialty Start Date End Date Annalisa Mark, PCP - General Nurse Practitioner 03/22/15 EDUCATION AND TRAINING COORDINATOR SHEEP KILLER [address] [place] [address] Annalisa Mark, Assigned PCP 01/22/20 2 EDUCATION AND TRAINING COORDINATOR SHEEP KILLER [address] [place] [address] Jacob Carmona Assigned OBGYN Provider 05/18/20 MD [place] [address] documented as of this encounter
--- OUTSIDE RECORDS SUMMARY | 2022-06-06 20:58 | XMS_ITS | Encounter Summary ---
:1985 Author Organization [place] Address [facility] [place] [address] Care Team Providers Name Role Phone Deedee, Annalisa Peacock APRN, CNP Primary Care Provider [phone] Annalisa Mark APRN ARMAMENT INSTALLER Unavailable [phone] Reason for Visit Reason Comments Urgent Care Mass Right side feelingbumps in neck, neck is uncomfortable with movement and feel tight Encounter Details Date Type Department Care Team Description 03/15/2020 Office Visit [facility] Ericka, Ami Anterior cervical Urgent Care DEMARCUS Mcadams lymphadenopathy (Primary [place] [address] [address] [place]) [address] [place] [phone] Social History Tobacco Use Types Packs/Day Years [...] you attend mu-ism or Patient refused 2021 lutheran services? Do you belong to any clubs [...] Sign Reading Time Taken Comments Blood Pressure 104/68 03/15/2020 6:32 PM CDT Pulse 100 03/15/2020 6:32 PM CDT Temperature 37 ??C (98.6 ??F) 03/15/2020 6:32 PM CDT Respiratory Rate 16 03/15/2020 6:32 PM CDT Oxygen Saturation 99% 03/15/2020 6:32 PM CDT Inhaled Oxygen Concentration - - Weight 69.9 kg (154 lb) 03/15/2020 6:32 PM CDT Height - - Body Mass Index 27.28 07/25/2019 12:44 PM ECONOMICS LECTURER documented in this encounter Patient Instructions Patient InstructionsBeryl Barnett PA-C - 03/15/2020 6:10 PM CDT Your exam is reassuring today. No evidence of infection or abnormal masses. documented in this encounter Progress Notes Beryl Barnett PA-C - 03/15/2020 6:10 PM CDT SUBJECTIVE: Tameka Grissom is a 34 year old female presenting with a chief complaint of Chief Complaint Patient presents with ??? Urgent Care ??? Mass Right side feelingbumps in neck, neck is uncomfortable with movement and feel tight She is an established patient of [facility]. She is presenting to urgent care today with a complaint of a lump right side of her neck that she has noted today. It is not painful. There is no skin redness. She feels some tightness on the right side of her neck and ear. She denies any fevers, chills, sore throat, chest pain, shortness of breath. Patient is concerned as a family member recently from cancer. Review of Systems Constitutional: Negative for chills and fever. HENT: Negative for sore throat. Swollen lump right side of neck Respiratory: Negative for cough and shortness of breath. Gastrointestinal: Negative for diarrhea, nausea and vomiting. Past Medical History: Diagnosis Date ??? Allergic [...] daily 90 tablet 1 ??? Prenat w/o K-EC-Ehgtkyw-FA-DHA (PNV-DHA) 27-0.6-0.4-300 MG CAPS Social History Tobacco Use ??? Smoking status: Never Smoker ??? Smokeless tobacco: Never Used Substance Use Topics ??? Alcohol use: Yes Alcohol/week: 0.0 standard drinks Comment: Occaisional OBJECTIVE BP 104/68 Pulse 100 Temp 98.6 ??F (37 ??C) (Oral) Resp 16 Wt 69.9 kg (154 lb) SpO2 99% BMI 27.28 kg/m?? Physical Exam Constitutional: General: She is not in acute distress. Appearance: She is well-developed. HENT: Head: Normocephalic and atraumatic. Right Ear: Tympanic membrane and external ear normal. Left Ear: Tympanic membrane and external ear normal. Ears: Comments: Dry skin/inflammation noted in bilateral ear canals. Patient is currently on Ciprodex eardrops for bilateral otitis externa. Mouth/Throat: Mouth: Mucous membranes are moist. Pharynx: Oropharynx is clear. Eyes: Conjunctiva/sclera: Conjunctivae normal. Neck: Musculoskeletal: Normal range of motion. Comments: Palpable anterior cervical lymph node right sided. No tenderness to palpation. No erythema. Cardiovascular: Rate and Rhythm: Regular rhythm. Heart sounds: Normal heart sounds. Pulmonary: Effort: Pulmonary effort is normal. No respiratory distress. Breath sounds: No wheezing, rhonchi or rales. Lymphadenopathy: Cervical: Cervical adenopathy present. Skin: General: Skin is warm and dry. Neurological: Mental Status: She is alert. Labs: Results for orders placed or performed in visit on 03/15/20 (from the past 24 hour(s)) CBC with platelets and differential Result Value Ref Range WBC 8.4 4.0 - 11.0 10e9/L RBC Count 4.24 3.8 - 5.2 10e12/L Hemoglobin 13.0 11.7 - 15.7 g/dL Hematocrit 39.6 35.0 - 47.0 % MCV 93 78 - 100 fl MCH 30.7 26.5 - 33.0 pg MCHC 32.8 31.5 - 36.5 g/dL RDW 11.6 10.0 - 15.0 % Platelet Count 217 150 - 450 10e9/L % Neutrophils 50.5 % % Lymphocytes 42.0 % % Monocytes 5.1 % % Eosinophils 1.9 % % Basophils 0.5 % Absolute Neutrophil 4.2 1.6 - 8.3 10e9/L Absolute Lymphocytes 3.5 0.8 - 5.3 10e9/L Absolute Monocytes 0.4 0.0 - 1.3 10e9/L Absolute Eosinophils 0.2 0.0 - 0.7 10e9/L Absolute Basophils 0.0 0.0 - 0.2 10e9/L Diff Method Automated Method ASSESSMENT: ICD-10-CM 1. Anterior cervical lymphadenopathy R59.0 CBC with platelets and differential PLAN: Anterior cervical lymph node: Patient was concerned as she had a family member recently from cancer. Reassurance provided today. CBC is normal. Lymph node exam is normal. There is no swelling. There is no tenderness with palpation. There is no erythema. Follow-up as needed. Patient is agreeable to this plan. Followup: If not improving or if condition worsens, follow up with your Primary Care Provider documented in this encounter Plan of Treatment Not on filedocumented as of this encounter Procedures Procedure Name Priority Date/Time Associated Diagnosis Comme nts CBC WITH PLATELETS & Routine 03/15/2020 6:59 Anterior cervical Results for this DIFFERENTIAL PM CDT lymphadenopathy procedure ar e in the results section. documented in this encounter Results CBC with platelets and differential (03/15/2020 6:59 PM CDT) [facility] gist Method Time Signature WBC 8.4 4.0 - 03/15/2020 [place] 11.0 7:32 PM CDT [facility] 10e9/L [place] RBC Count 4.24 3.8 - 5.2 03/15/2020 [place] 10e12/L 7:32 PM CDT [facility] [place] Hemoglobin 13.0 11.7 - 03/15/2020 [place] 15.7 g/dL 7:32 PM CDT [facility] [place] Hematocrit 39.6 35.0 - 03/15/2020 [facility] 47.0 % 7:32 PM CDT [facility] [place] MCV 93 78 - 100 03/15/2020 [place] fl 7:32 PM CDT [facility] [place] MCH 30.7 26.5 - 03/15/2020 [place] 33.0 pg 7:32 PM CDT [facility] [place] MCHC 32.8 31.5 - 03/15/2020 [place] 36.5 g/dL 7:32 PM CDT [facility] RDW 11.6 10.0 - 03/15/2020 [place] 15.0 % 7:32 PM CDT [facility] Platelet Count 217 150 - 450 03/15/2020 [place] 10e9/L 7:32 PM CDT [facility] % Neutrophils 50.5 % 03/15/2020 [place] 7:32 PM CDT [facility] [place] % Lymphocytes 42.0 % 03/15/2020 [place] 7:32 PM CDT [facility] [place] % Monocytes 5.1 % 03/15/2020 [place] 7:32 PM CDT [facility] [place] % Eosinophils 1.9 % 03/15/2020 [place] 7:32 PM CDT [facility] [place] % Basophils 0.5 % 03/15/2020 [place] 7:32 PM CDT [facility] Absolute 4.2 1.6 - 8.3 03/15/2020 [place] Neutrophil 10e9/L 7:32 PM CDT [facility] Absolute 3.5 0.8 - 5.3 03/15/2020 [place] Lymphocytes 10e9/L 7:32 PM CDT [facility] Absolute 0.4 0.0 - 1.3 03/15/2020 [place] Monocytes 10e9/L 7:32 PM CDT [facility] Absolute 0.2 0.0 - 0.7 03/15/2020 [place] Eosinophils 10e9/L 7:32 PM CDT [facility] Absolute 0.0 0.0 - 0.2 03/15/2020 [place] Basophils 10e9/L 7:32 PM CDT [facility] Diff Method Automated 03/15/2020 [place] Method 7:32 PM CDT [facility] Specimen Anatomical Collection Method Collection Time Receive d Time (Source) Location / / Volume Laterality Blood specimen 03/15/2020 6:59 PM 020 7:04 (specimen) CDT PM CDT Beryl Barnett PA-C LAB - BLOOD ORDERABLES Performing Organization Address City/State/ZIP Code Phon e Number [facility] [address] [place] [address] documented in this encounter Visit Diagnoses Diagnosis Anterior cervical lymphadenopathy - Prim cresencio Enlargement of lymph nodes documented in this encounter Additional Health Concerns Assessment Noted Time PHQ-9 Depression Total Score: 2 12/08/2019 7:04 AM CDT documented as of this encounter Care Teams Physical Science Aide Relationship Specialty Start Date End Date Annalisa Mark APRN ARMAMENT INSTALLER PCP - General Nurse Practitioner 03/22/15 [address] [place] [address] Annalisa Mark APRN ARMAMENT INSTALLER Assigned PCP 01/22/20 02/21/22 [address] [place] [address] documented as of this encounter
--- OUTSIDE RECORDS SUMMARY | 2022-06-06 20:58 | XMS_ITS | Encounter Summary ---
:1985 Author Organization [place] Address [address] [place], [place] [address]e. [place] [address] Care Team Providers Name Role Phone Annalisa Mark APRN NIGHT TIME NANNY Primary Care Provider [phone] Annalisa Mark APRN NIGHT TIME NANNY Unavailable [phone] Jacob Carmona MD Unavailable [phone] Encounter Details Date Type Department Care Team Description 06/26/2020 Travel Social History Tobacco Use Types Packs/Day [...] or relatives? How often do you attend caodaism or Patient refused 2021 restorationist services? Do you belong to any clubs or No 10/17/2021 organizations such as caodaism groups, unions, fraternal or athletic groups, or [...] with No / Unsure 06/26/2020 7:44 AM EQUIPMENT MAINTENANCE SUPERVISOR someone who was confirmed or suspected to have Coronavirus / COVID-19? documented as of this encounter Plan of Treatment Not on filedocumented as of this encounter Visit Diagnoses Not on filedocumented in this encounter Additional Health Concerns Assessment Noted Time PHQ-9 Depression Total Score: 2 12/08/2019 7:04 AM CDT documented as of this encounter Care Teams All Source Analyst Relationship Specialty Start Date End Date Annalisa Mark, PCP - General Nurse Practitioner 03/22/15 SALVAGE CLERK NIGHT TIME NANNY [address] [place] [address] Annalisa Mark, Assigned PCP 01/22/20 2 SALVAGE CLERK NIGHT TIME NANNY [address] [place] [address] Jacob Carmona Assigned OBGYN Provider 05/18/20 MD [place] [address] documented as of this encounter
--- OUTSIDE RECORDS SUMMARY | 2022-06-06 20:58 | XMS_ITS | Encounter Summary ---
:1985 Author Organization [place] Address [address] [place], [place] [address]. [place] [address] Care Team Providers Name Role Phone Annalisa Mark APRN FISH FROG OR OYSTER FARMER Primary Care Provider [phone] Annalisa Mark APRN FISH FROG OR OYSTER FARMER Unavailable [phone] Jacob Carmona MD Unavailable [phone] Encounter Details Date Type Department Care Team Description 10/23/2020 Travel Social History Tobacco Use Types Packs/Day [...] you attend rastafari or Patient refused 2021 yazdanism services? Do you belong to any clubs [...] documented as of this encounter Care Teams Software Quality Tester Relationship Specialty Start Date End Date Annalisa Mark, PCP - General Nurse Practitioner 03/22/15 AERIAL TRAM OPERATOR FISH FROG OR OYSTER FARMER [address] [place] [address] Annalisa Mark, Assigned PCP 01/22/20 2 AERIAL TRAM OPERATOR FISH FROG OR OYSTER FARMER [address] [place] [address] Jacob Carmona Assigned OBGYN Provider 05/18/20 MD Antony [address] [place], [place] [id number] documented as of this encounter
--- OUTSIDE RECORDS SUMMARY | 2022-06-06 20:58 | XMS_ITS | Encounter Summary ---
:1985 Author Organization [place] Address [address] [place] [address]. [place] [address] Care Team Providers Name Role Phone DeedeeAnnalisa dean Madonna STANLEY CNP Primary Care Provider [phone] Deedee Annalisaarnulfo Peacock APRN PORTRAIT ARTIST Unavailable [phone] Jacob Carmona MD Unavailable [phone] Reason for Visit Reason Onset Date Comments Dysuria 06/22/2020 Encounter Details Date Type Department Care Team Description 06/22/2020 E-Visit [facility] Tere Mark, Swapna arnulfo Peacock, Dysuria [place] SEA AIR LAND OFFICER [facility] [address] [phone] [place] [address] (Wo rk) Social History Tobacco [...] or relatives? How often do you attend mosque or Patient refused 2021 christianity services? Do you belong to any clubs or No 10/17/2021 organizations such as mosque groups, unions, fraternal or athletic groups, or [...] PM CDT documented as of this encounter Patient Instructions Patient InstructionsAnnalisa Mark APRN PORTRAIT ARTIST - 06/22/2020 7:38 AM DRILLING MACHINE RUNNER Images from the original note were not included. Urinary Tract Infections in Women Urinary tract infections (UTIs) are most often caused by??bacteria. These bacteria enter the urinarytract. The bacteria may come from inside the body. Or they may travel from the skin outside the??rectum or vagina into the urethra. Female anatomy makes it easy for bacteria from the bowel??to enter a woman???s urinary tract, which is the most common source of UTI. This means women develop UTIs more often than men. Pain in or around the urinary tract is a common UTI symptom. But the only way to know for sure if you have a UTI for the healthcare provider to test your urine. The two tests that may be done are the urinalysis and urine culture. Types of UTIs ?? Cystitis. A bladder infection (cystitis) is the most common UTI in women. You may have urgent or frequent need to pee. You may also have??pain, burning when you pee, and bloody urine. ?? Urethritis. This is an inflamed urethra, which is the tube that carries urine from the bladder tooutside the body. You may have lower stomach or back pain. You may also have urgent or frequent needto pee. ?? Pyelonephritis. This is a kidney infection. If not treated, it can be serious and damage your kidneys. In severe cases, you may need to stay in the??hospital. You may have a fever and lower back pain. Medicines to treat a UTI Most UTIs are treated with antibiotics. These kill the bacteria. The length of time you need to takethem depends on the type of infection. It may be as short as 3 days. If you have repeated UTIs, you may need a low-dose antibiotic??for several months. Take antibiotics exactly as directed. Don???t stop taking them until all of the medicine is gone. If you stop taking the antibiotic too soon, the infection may not go away. You may also develop a resistance to the antibiotic. This can make it much harder to treat. Lifestyle changes to treat and prevent UTIs The lifestyle changes below will help get rid of your UTI. They may also help prevent future UTIs. ?? Drink plenty of fluids. This includes water, juice, or other caffeine-free drinks. Fluids help flush bacteria out of your body. ?? Empty your bladder. Always empty your bladder when you feel the urge to pee. And always pee before going to sleep. Urine that stays in your bladder can lead to infection. Try to pee before and aftersex as well. ?? Practice good personal hygiene. Wipe yourself from front to back after using the toilet. This helps keep bacteria from getting into the urethra. ?? Use condoms during sex. These help prevent UTIs caused by sexually transmitted bacteria. Also don't use spermicides during sex. These can increase the risk for UTIs. Choose other forms of control instead. For women who tend to get UTIs after sex, a low-dose of a preventive antibiotic may be used. Be sure to discuss this option with your healthcare provider. ?? Follow up with your healthcare provider as directed. He or she may test to make sure the infection has cleared. If needed, more treatment may be started. [employer] last reviewed this educational content on 01/24/2019 ?? [id number] [employer]. [address] [place] [address]. All rights reserved. This information is not intended as a substitute for professional medical care. Always follow your healthcare professional's instructions. LING MACHINE RUNNER documented in this encounter Miscellaneous Notes Telephone Encounter - Annalisa Mark APRN CNP - 06/22/2020 11:59 AM DRILLING MACHINE RUNNER Provider E-Visit time total (minutes): 10 min LING MACHINE RUNNER documented in this encounter Plan of Treatment Not on filedocumented as of this encounter Results (ABNORMAL) Wet prep (06/26/2020 7:48 AM DRILLING MACHINE RUNNER) [facility] Method Time Signature Specimen Vagina [place] Description [facility] Wet Prep No Trichomonas 06/26/2020 [facility] seen 8:42 AM DRILLING MACHINE RUNNER [facility] Wet Prep No clue cells 06/26/2020 [facility] seen 8:42 AM DRILLING MACHINE RUNNER [facility] Wet Prep Few 06/26/2020 [place] Yeast seen 8:42 AM DRILLING MACHINE RUNNER [facility] Wet Prep Rare 06/26/2020 [place] WBC'S seen 8:42 AM DRILLING MACHINE RUNNER [facility] Specimen Anatomical Collection Method Collection Time Receive d Time (Source) Location / / Volume Laterality Specimen from 06/26/2020 7:48 AM 06/26/20 20 7:49 vagina DRILLING MACHINE RUNNER AM DRILLING MACHINE RUNNER (specimen) Annalisa Mark APRN PORTRAIT ARTIST LAB - MICRO GENERAL ORDER ALLI Performing Organization Address City/State/ZIP Code Phon e Number [facility] [address] [place] [address] UA reflex to Microscopic and Culture (06/26/2020 7:47 AM DRILLING MACHINE RUNNER) [facility] Method Time Signature Color Urine Yellow 06/26/2020 [place] 8:41 AM [facility] Appearance Urine Clear 06/26/2020 [place] 8:41 AM [facility] Glucose Urine Negative NEG^Negat 06/26/2020 [place] liudmila mg/dL 8:41 AM [facility] Bilirubin Urine Negative NEG^Negat 06/26/2020 [place] liudmila 8:41 AM [facility] Ketones Urine Negative NEG^Negat 06/26/2020 [place] liudmila mg/dL 8:41 AM DRILLING MACHINE RUNNER [facility] Specific [place] 1.015 1.003 - 06/26/2020 [place] Urine 1.035 8:41 AM [facility] Blood Urine Negative NEG^Negat 06/26/2020 [place] liudmila 8:41 AM [facility] pH Urine 6.0 5.0 - 7.0 06/26/2020 [place] pH 8:41 AM [facility] Protein Albumin Negative NEG^Negat 06/26/2020 [place] Urine liudmila mg/dL 8:41 AM [facility] Urobilinogen 0.2 0.2 - 1.0 06/26/2020 [place] Urine EU/dL 8:41 AM [facility] Nitrite Urine Negative NEG^Negat 06/26/2020 [place] liudmila 8:41 AM [facility] Leukocyte Negative NEG^Negat 06/26/2020 [place] Esterase Urine liudmila 8:41 AM [facility] Source Midstream 06/26/2020 [place] Urine 7:49 AM [facility] Specimen (Source) Anatomical Collection Method Collection Time Re ceived Time Location / / Volume Laterality Examination of 06/26/2020 7:47 06/26/2020 7:48 midstream urine AM DRILLING MACHINE RUNNER AM DRILLING MACHINE RUNNER specimen (procedure) Annalisa Mark SEA AIR LAND OFFICER PORTRAIT ARTIST LAB - URINE ORDERABLES Performing Organization Address City/State/ZIP Code Phon e Number [facility] [address] [place] [address] documented in this encounter Visit Diagnoses Diagnosis Abnormal urine odor - Primary Other nonspecific finding on examination of urine Dysuria documented in this encounter Additional Health Concerns Assessment Noted Time PHQ-9 Depression Total Score: 2 12/08/2019 7:04 AM CDT documented as of this encounter Care Teams [employer] Relationship Specialty Start Date End Date Annalisa Mark, PCP - General Nurse Practitioner 03/22/15 SEA AIR LAND OFFICER PORTRAIT ARTIST [address] [place] [address] Annalisa Mark, Assigned PCP 01/22/20 2 SEA AIR LAND OFFICER PORTRAIT ARTIST [address] [place] [address] Jacob Carmona Assigned OBGYN Provider 05/18/20 MD Antony [address] [place] [address] documented as of this encounter
--- OUTSIDE RECORDS SUMMARY | 2022-06-06 20:58 | XMS_ITS | Encounter Summary ---
:1985 Author Organization [place] Address [facility] [place] [address] Care Team Providers Name Role Phone Annalisa Mark APRN AIRPORT MAINTENANCE CHIEF Primary Care Provider [phone] Annalisa Mark APRN AIRPORT MAINTENANCE CHIEF Unavailable [phone] Jacob Carmona MD Unavailable [phone] Encounter Details Date Type Department Care Team Description 11/01/2020 Orders Only [facility] Consuelo Duran, CHRIST [place] [address] [phone] Social History Tobacco Use Types Packs/Day [...] you attend yazdanism or Patient refused 2021 yazidism services? Do you belong to any clubs [...] Diagnosis Comme nts HC COLP CERVIX/UPPER Routine 04/24/2009 12:00 AM CDT VAGINA W LOOP ELEC BX CERVIX documented in this encounter Results COLP CERVIX/UPPER VAGINA W LOOP ELEC BX CERVIX (04/24/2009 12:00 AM CDT) Patient Reported PROCEDURES documented in this encounter Visit Diagnoses Not on filedocumented in this encounter Additional Health Concerns Assessment Noted Time PHQ-9 Depression Total Score: 2 12/08/2019 7:04 AM CDT documented as of this encounter Care Teams Client Relations Representative Relationship Specialty Start Date End Date Annalisa Mark, PCP - General Nurse Practitioner 03/22/15 FOOD SERVICE SALES REPRESENTATIVES AIRPORT MAINTENANCE CHIEF [address] [place] [address] Annalisa Mark, Assigned PCP 01/22/20 2 FOOD SERVICE SALES REPRESENTATIVES AIRPORT MAINTENANCE CHIEF [address] [place] [address] Jacob Carmona Assigned OBGYN Provider 05/18/20 [place] [address] documented as of this encounter
--- OUTSIDE RECORDS SUMMARY | 2022-06-06 20:58 | XMS_ITS | Encounter Summary ---
:1985 Author Organization [place] Address [address] [place] [address]. [place] [address] Care Team Providers Name Role Phone Annalisa Mark APRN, CNP Primary Care Provider [phone] Annalisa Mark APRN, CNP Unavailable [phone] Jacob Carmona MD Unavailable [phone] Reason for Visit Reason Onset Date Comments Erroneous encounter-disregard 07/11/2020 Encounter Details Date Type Department Care Team Description 07/09/2020 E-[address] [facility] Annalisa Mark oneous [place] JADEN Peacock CNP encounter-disregard [address] [place] [id number] [phone] Social History Tobacco Use Types Packs/Day Years [...] or relatives? How often do you attend adventist or Patient refused 2021 christianity services? Do you belong to any clubs or No 10/17/2021 organizations such as adventist groups, unions, fraternal or athletic groups, or [...] with No / Unsure 06/26/2020 7:44 AM DOCUMENT MANAGER someone who was confirmed or suspected to have Coronavirus / COVID-19? documented as of this encounter Miscellaneous Notes Telephone Encounter - Annalisa Mark APRN CNP - 07/09/2020 12:26 PM DOCUMENT MANAGER I did not receive a reply from Tameka, will close the encounter. Annalisa Mark CNP This encounter was opened in error. Please disregard. MENT MANAGER documented in this encounter Plan of Treatment Not on filedocumented as of this encounter Visit Diagnoses Diagnosis ERRONEOUS ENCOUNTER--DISREGARD - Primary documented in this encounter Additional Health Concerns Assessment Noted Time PHQ-9 Depression Total Score: 2 12/08/2019 7:04 AM CDT documented as of this encounter Care Teams Clinical Data Research Relationship Specialty Start Date End Date Annalisa Mark, PCP - General Nurse Practitioner 03/22/15 CUSTOMER ADVISOR APPLICATION SYSTEMS ENGINEER [address] [place] [address] Annalisa Mark, Assigned PCP 01/22/20 2 CUSTOMER ADVISOR APPLICATION SYSTEMS ENGINEER [address] [place] [address] Jacob Carmona Assigned OBGYN Provider 05/18/20 MD [place] [address] documented as of this encounter
--- OUTSIDE RECORDS SUMMARY | 2022-06-06 20:59 | XMS_ITS | Encounter Summary ---
:1985 Author Organization [facility] Address [address] [place], [place] [address]. [place] [address] Care Team Providers Name Role Phone Annalisa Mark APRN, CNP Primary Care Provider [phone] Mukul Rivas PA-C Unavailable [phone] Encounter Details Date Type Department Care Team Description 09/16/2019 Travel Social History Tobacco Use Types Packs/Day [...] you attend anglican or Patient refused 2021 oriental orthodox services? [...] Assessment Noted Time PHQ-9 Depression Total Score: 3 12/07/2018 7:05 AM CDT documented as of this encounter Care Teams Cinema Or Theatre Manager Relationship Specialty Start Date End Date Annalisa Mark APRN DOCKET SPECIALIST PCP - General Nurse Practitioner 03/22/15 [address] [place], [place] [phone] Mukul Rivas PA-C Assigned PCP 07/03/19 11/19/19 [address] [place], [place] [id number] documented as of this encounter
--- OUTSIDE RECORDS SUMMARY | 2022-06-06 20:59 | XMS_ITS | Encounter Summary ---
:1985 Author Organization [facility] Address [address] [place], [place] [address]. [place] [address] Care Team Providers Name Role Phone Annalisa Mark APRN, CNP Primary Care Provider [phone] Mukul Rivas PA-C Unavailable [phone] Encounter Details Date Type Department Care Team Description 07/29/2019 Travel Social History Tobacco Use Types Packs/Day [...] or relatives? How often do you attend moravian or Patient refused 2021 latter day services? Do you belong to any clubs or No 10/17/2021 organizations such as moravian groups, unions, fraternal or athletic groups, or [...] documented as of this encounter Care Teams Mannequin Molder Relationship Specialty Start Date End Date Annalisa Mark APRN PAINTER PCP - General Nurse Practitioner 03/22/15 [address] [place], [place] [id number] Mukul Rivas PA-C Assigned PCP 07/03/19 11/19/19 [address] [place], [place] [phone] documented as of this encounter
--- OUTSIDE RECORDS SUMMARY | 2022-06-06 20:59 | XMS_ITS | Encounter Summary ---
:1985 Author Organization [facility] Address [facility] [place] [address] Care Team Providers Name Role Phone DeedeeAnnalisa dean Madonna STANLEY CNP Primary Care Provider [phone] Mukul Rivas PA-C Unavailable [phone] Reason for Visit Reason Comments Care Encounter Details Date Type Department Care Team Description 09/09/2019 Office [facility] Jacob Carmona of Visit Clinic Deborah Hardy MD advanced maternal [address] [facility] age in [place], [place] trimester (Primary [phone] Dx) SUM[facility] Cabrera [phone] (Wo rk) [address] [phone] Social History Tobacco Use Types Packs/Day Years [...] you attend buddhist or Patient refused 2021 denominational services? Do you belong to any clubs [...] PM CDT documented as of this encounter Last Filed Vital Signs Vital Sign Reading Time Taken Comments Blood Pressure 108/60 09/09/2019 2:22 PM REPRESENTATIVE PERSONAL SERVICE Pulse - - Temperature - - Respiratory Rate - - Oxygen Saturation - - Inhaled Oxygen Concentration - - Weight 68.9 kg (152 lb) 09/09/2019 2:22 PM REPRESENTATIVE PERSONAL SERVICE Height - - Body Mass Index 26.93 07/25/2019 12:44 PM REPRESENTATIVE PERSONAL SERVICE documented in this encounter Progress Notes Jacob Carmona MD - 09/09/2019 2:15 PM CST 34yo at 39w0d here for routine visit. More pressure. No regular ctx. L&D and elective induction discussed. RTC 1 week ESENTATIVE PERSONAL SERVICE documented in this encounter Nursing Notes Yissel Reich CMA - 09/09/2019 2:15 PM CST Chief Complaint Patient presents with ??? Care Initial BP 108/60 Wt 68.9 kg (152 lb) LMP 12/10/2018 BMI 26.93 kg/m?? Estimated body mass index is 26.93 kg/m?? as calculated from the following: Height as of 07/25/19: 1.6 m (5' 3). Weight as of this encounter: 68.9 kg (152 lb). BP completed using cuff size: regular Questioned patient about current smoking habits. Pt. has never smoked. Yissel Reich CMA ESENTATIVE PERSONAL SERVICE documented in this encounter Plan of Treatment Not on filedocumented as of this encounter Visit Diagnoses Diagnosis Multigravida of advanced maternal age in third trimester - Primary documented in this encounter Additional Health Concerns Assessment Noted Time PHQ-9 Depression Total Score: 3 12/07/2018 7:05 AM CDT documented as of this encounter Care Teams Graphics Specialist Relationship Specialty Start Date End Date Annalisa Mark APRN BEET END SUPERVISOR PCP - General Nurse Practitioner 03/22/15 [address] [place], [place] [phone] Mukul Rivas PA-C Assigned PCP 07/03/19 11/19/19 [address] [place], [place] [phone] documented as of this encounter
--- OUTSIDE RECORDS SUMMARY | 2022-06-06 20:59 | XMS_ITS | Encounter Summary ---
:1985 Author Organization [facility] Address [address] [place], [place] [address]. [place] [address] Care Team Providers Name Role Phone Annalisa Mark APRN, CNP Primary Care Provider [phone] Mukul Rivas PA-C Unavailable [phone] Encounter Details Date Type Department Care Team Description 08/26/2019 Travel Social History Tobacco Use Types Packs/Day [...] you attend zoroastrian or Patient refused 2021 zoroastrianism services? Do you belong to any clubs [...] documented as of this encounter Care Teams Pharmacy Picking Tech Relationship Specialty Start Date End Date Annalisa Mark APRN BRUSH AND BROOM CLIPPER PCP - General Nurse Practitioner 03/22/15 [address] [place], [place] [phone] Mukul Rivas PA-C Assigned PCP 07/03/19 11/19/19 [address] [place], [place] [phone] documented as of this encounter
--- OUTSIDE RECORDS SUMMARY | 2022-06-06 20:59 | XMS_ITS | Encounter Summary ---
:1985 Author Organization [facility] Address [address] [place], [place] [address]. [place] [address] Care Team Providers Name Role Phone Annalisa Mark APRN, CNP Primary Care Provider [phone] Mukul Rivas PA-C Unavailable [phone] Encounter Details Date Type Department Care Team Description 08/12/2019 Travel Social History Tobacco Use Types Packs/Day [...] or relatives? How often do you attend temple or Patient refused 2021 amish services? Do you belong to any clubs or No 10/17/2021 organizations such as temple groups, unions, fraternal or athletic groups, or [...] documented as of this encounter Care Teams Sap Security Architect Relationship Specialty Start Date End Date Annalisa Mark APRN SWEATBAND DRUMMER PCP - General Nurse Practitioner 03/22/15 [address] [place], [place] [id number] Mukul Rivas PA-C Assigned PCP 07/03/19 11/19/19 [address] [place], [place] [phone] documented as of this encounter
--- OUTSIDE RECORDS SUMMARY | 2022-06-06 20:59 | XMS_ITS | Encounter Summary ---
:1985 Author Organization [facility] Address [facility] [place] [address] Care Team Providers Name Role Phone DeedeeAnnalisa deansalima STANLEY CNP Primary Care Provider [phone] Mukul Rivas PA-C Unavailable [phone] Reason for Visit Auth/Cert Specialty Diagnoses / Procedures Referred By Contact Refer red To Contact telephone worker Diagnoses Supervision of normal Rh Labor And Delivery [address] [place], [place] [address] Phone: Fax: Referral ID Status Reason Start Date Expiration Date Visits Requ ested Visits Authorized [id number] 1 1 Encounter Details Date Type Department Care Team Description 09/19/2019 Anesthesia Event [facility] Jh Leblanc DO Birthplace [facility] [address] [place] [phone] [facility] [phone] 20 [place], [place] [address] (Wo rk) Anesthesia Record Procedure Summary Procedure Name Responsible Anesthesia Start Time Anesthesia Stop Time Anesthesiologist LABOR ANALGESIA Jh Leblanc DO 09/19/19 1239 09/19/19 13 01 Events Date Time Event Comment 09/19/2019 1239 An Start 1257 MD Present 1301 An Stop Electronically s igned by Jh Leblanc DO on September 19, 2019 2:26 PM 1428 Quick Note .Anesthesiologis t RICHARD Monitoring Note. EMR/L&D RN communication of patient progress of labor. Anesthesiologist immediately available for management. R Leblanc No medications on file. Agents No agents on file. Blood No blood administrations on file. Lines, Drains, and Airways Type Details Placement Removal Peripheral IV 09/19/19; 0800; 18 G; 09/19/19 0800 by 09/20/19 1945 by Left; Lower forearm; Meena Cervantes RN Melni k, Luda, RN Basilic vein (medial side of arm); Chlorhexidine; None; Tolerated well Intrathecal/Epidural 09/19/19; 1256; 09/19/19 1256 by 09/21/19 1 127 by Catheter Epidural; L. Jh Martell, Cindy Cason RN RN; Tip intact documented in this encounter Social History Tobacco Use Types Packs/Day Years [...] you attend taoism or Patient refused 2021 mormon services? Do [...] PM CDT documented as of this encounter OR Notes Anesthesia Postprocedure Evaluation - Jake Olivo MD - 09/20/2019 2:45 PM CST Patient: Tameka Grissom * No procedures listed * Diagnosis:* No pre-op diagnosis entered * Diagnosis Additional Information: .Intrauterine , Labor Anesthesia Type: Epidural Note: Anesthesia Post Evaluation Patient location during evaluation: Floor Patient participation: Able to fully participate in evaluation Level of consciousness: awake and alert Pain management: adequate Airway patency: patent Cardiovascular status: acceptable Respiratory status: acceptable Hydration status: acceptable PONV: none Comments: Labor Epidural Post delivery note. Doing well. VSS Temp normal. Satisfactory respiratory and cardiovascular function. Return of neurologic function. Questions encouraged and answered. Denies positional headache. Minimal side effects easily managed w/ PRN meds. No apparent anesthetic complications. No follow-up required. I or my partner was immediately available for management of this patient during epidural analgesia infusion. Jake Olivo MD Last vitals: Vitals: 09/19/19 1930 09/19/19 2330 09/20/19 0800 BP: 109/68 120/68 112/71 Pulse: 75 77 68 Resp: 18 18 16 Temp: 98.4 ??F (36.9 ??C) 97.8 ??F (36.6 ??C) 97.9 ??F (36.6 ??C) SpO2: Electronically Signed By: Jake Olivo MD September 20, 2019 2:45 PM BUILDER Anesthesia Procedure Notes - Jh Leblanc DO - 09/19/2019 2:26 PM CURB BUILDER Associated Order(s): Epidural Block Peripheral nerve/Neuraxial procedure note : epidural catheter Pre-Procedure Performed by Jh Leblanc DO Referred by MD Samuel Location: pre-op Pre-Anesthestic Checklist: patient identified, IV checked, risks and benefits discussed, informed consent, monitors and equipment checked, pre-op evaluation and at physician/surgeon's request Timeout Correct Patient: Yes Correct Procedure: Yes Correct Site: Yes Correct Laterality: N/A Correct Position: Yes Site Marked: N/A . Procedure Documentation . Procedure: epidural catheter, . Patient Position:sitting Insertion Site:L2-3 (midline approach) Injection technique: LORT saline Local skin infiltrated with mL of 1% lidocaine. Patient Prep/Sterile Barriers; mask, sterile gloves, povidone-iodine 7.5% surgical scrub, patient draped. . Needle: Touhy needle Needle Gauge: 17. Needle Length (Inches) 3.5 . Assessment/Narrative . . . Comments: .Diagnosis- Anticipated vaginal delivery Continuous Labor Epidural, indication is for labor pain. Following an discussion of the expectations, benefits and risk (including but not limited to nerve damage, infection, bleeding, spinal headache,partial or failed block)--questions were encouraged and answered. The patient appears to understand,and consents to proceed. The patient received a fluid bolus per orders Time-out performed. The patient was in the sitting position, a PVP prep times three was done in the lumbar area followedby placement of a sterile drape. The skin was then infiltrated with lidocaine. A 17ga Touhy needle was then advanced under a loss of resistance technique until the epidural space was identified. The epidural catheter was then advanced and secured. The catheter was then bolused in divided doses with Bupivicaine 0.25% 12 cc, while the patient/fetus was monitored. Infusion orders written and infusion ofbupivicaine 0.125% + fentanyl 2mcg/cc 10cc per hour started. PCEA 5cc bolus ever 15 minutes, with a maximum of 30cc per hour. I or my partner, was immediately available and frequently monitored at necessary intervals. Ilene Leblanc BUILDER Anesthesia Preprocedure Evaluation - Jh Leblanc DO - 09/19/2019 9:28 AM CST Anesthesia Pre-Procedure Evaluation Patient: Tameka Grissom : 1985 Preoperative Diagnosis: * No pre-op diagnosis entered * * No procedures listed * Past Medical History: Diagnosis Date ??? Allergic [...] Past Surgical History: Procedure Laterality Date ??? C NONSPECIFIC PROCEDURE rt brest biopsy,benign ??? COLPOSCOPY CERVIX, LOOP ELECTRODE BIOPSY, COMBINED 04/24/09 PEDRO I & II ??? CRYOTHERAPY 04/04/08, 12/14/08 Anesthesia Evaluation history and physical reviewed . ROS/MED HX ENT/Pulmonary: - neg pulmonary ROS Neurologic: - neg neurologic ROS Cardiovascular: - neg cardiovascular ROS METS/Exercise Tolerance: Hematologic: Musculoskeletal: GI/Hepatic: - neg GI/hepatic ROS Renal/Genitourinary: Endo: Psychiatric: Infectious Disease: Malignancy: Other: neg OB ROS Physical Exam Normal systems: cardiovascular, pulmonary and dental Airway Mallampati: II Dental Cardiovascular Pulmonary Other findings: .Lab Test 08/16/19 08/16/19 06/15/19 02/15/19 2055 2014 0901 1404 WBC -- 20.1* 12.6* 13.7* HGB -- 12.4 11.4* 12.4 MCV -- 98 98 94 PLT -- 212 181 239 INR 0.98 -- -- -- Lab Test 12/08/18 06/07/18 06/04/18 04/21/17 0805 0738 1550 2213 NA 138 -- 141 137 POTASSIUM 4.4 -- 3.9 3.8 CHLORIDE 106 -- 106 106 CO2 27 -- 27 26 BUN 14 -- 12 12 CR 0.78 -- 0.84 0.79 ANIONGAP 5 -- 8 5 TRUMAN 9.0 -- 8.9 9.0 GLC 80 81 47* 91 Lab Results Component Value Date WBC 20.1 (H) 08/16/2019 HGB 12.4 08/16/2019 HCT 37.3 08/16/2019 PLT 212 08/16/2019 NA 138 12/08/2018 POTASSIUM 4.4 12/08/2018 CHLORIDE 106 12/08/2018 CO2 27 12/08/2018 BUN 14 12/08/2018 CR 0.78 12/08/2018 GLC 80 12/08/2018 TRUMAN 9.0 12/08/2018 ALBUMIN 4.4 12/08/2018 PROTTOTAL 7.6 12/08/2018 ALT 29 12/08/2018 AST 16 12/08/2018 ALKPHOS 72 12/08/2018 BILITOTAL 0.6 12/08/2018 LIPASE 202 04/21/2017 PTT 26 08/16/2019 INR 0.98 08/16/2019 FIBR 483 (H) 08/16/2019 TSH 0.83 12/08/2018 HCG Negative 04/21/2017 HCGS Negative 06/04/2018 Preop Vitals BP Readings from Last 3 Encounters: 09/16/19 110/64 09/09/19 108/60 09/01/19 106/62 Pulse Readings from Last 3 Encounters: 09/19/19 122 07/25/19 104 06/28/19 105 Resp Readings from Last 3 Encounters: 09/19/19 18 08/16/19 16 07/25/19 12 SpO2 Readings from Last 3 Encounters: 07/25/19 97% 06/28/19 98% 04/05/19 100% Temp Readings from Last 1 Encounters: 09/19/19 98 ??F (36.7 ??C) (Oral) Ht Readings from Last 1 Encounters: 07/25/19 1.6 m (5' 3) Wt Readings from Last 1 Encounters: 09/16/19 70.1 kg (154 lb 9.6 oz) Estimated body mass index is 27.39 kg/m?? as calculated from the following: Height as of 07/25/19: 1.6 m (5' 3). Weight as of 09/16/19: 70.1 kg (154 lb 9.6 oz). Anesthesia Plan Procedure only, no anesthetic delivered History & Physical Review ASA Status: 2 . OB Epidural Asa: 2 Plan for Epidural Postoperative Care Consents Anesthetic plan, risks, benefits and alternatives discussed with: Patient.. Jh Leblanc DO . BUILDER documented in this encounter Miscellaneous Notes Addendum Note - Jake Olivo MD - 09/20/2019 2:45 PM CST Addendum created 09/20/19 1445 by Jake Olivo MD Clinical Note Signed BUILDER Addendum Note - Jh Leblanc DO - 09/19/2019 2:35 PM CST Addendum created 09/19/19 1435 by Jh Leblanc DO Clinical Note Signed, Intraprocedure Blocks edited, Intraprocedure LDAs edited, LDA properties accepted BUILDER documented in this encounter Plan of Treatment Not on filedocumented as of this encounter Procedures Procedure Name Priority Date/Time Associated Diagnosis Comme nts ANE EPIDURAL BLOCK Routine 09/19/2019 2:26 PM Res ults for this CURB BUILDER procedure are i n the results section. documented in this encounter Results FV AN EPIDURAL DUMMY PERFORMABLE (09/19/2019 2:26 PM CURB BUILDER) Narrative Jh Leblanc DO - 09/19/2019 2:26 P M CURB BUILDER Jh Leblanc, DO ? 09/19/2019 ??2:35 PM Peripheral nerve/Neuraxial procedure not e : epidural catheter Pre-Procedure Performed by Jh Leblanc DO Referred by MD Samuel Location: pre-op ?? Pre-Anesthestic Checklist: patient ident ified, IV checked, risks and benefits discussed, informed consent, mo nitors and equipment checked, pre-op evaluation and at physician/surge on's request ?? Timeout Correct Patient: Yes Correct Procedure: Yes Correct Site: Yes Correct Laterality: N/A Correct Position: Yes Site Marked: N/A . Procedure Documentation . ?? Procedure: epidural catheter, . Patient Position:sitting Insertion Site: L2-3 ??(midline approach) Injection technique: LORT saline ?? Local skin inf iltrated with mL of 1% lidocaine. ?? Patient Prep/Sterile Barriers; mask, osmany rile gloves, povidone-iodine 7.5% surgical scrub, patient draped. ??. ??Ne edle: Yimiy needle ?? Needle Gauge: 17. ?Needle Length (Inches) 3.5 ?? . ?? Assessment/Narrative . ??. ??. Comments: ??.Diagnosis- Antici pated vaginal delivery Continuous Labor Epidural, indication is for labor pain. Following an discussion of the expectations, benefits and risk (including but not limited to nerve damage, infection, blee ding, spinal headache, partial or failed block)--questions were encouraged and answered. The patient appears to understand, and consents to proceed. The patient received a fluid bolus per o rders Time-out performed. The patient was in the sitting position, a PVP prep times three was done in the lumbar area followed by placement of a sterile drape. The skin was then infiltrated with lidocaine. A 17ga Touhy needle was then advanced under a loss of resistance technique unt il the epidural space was identified. The epidural catheter was th en advanced and secured. The catheter was then bolused in divided dos es with Bupivicaine 0.25% 12 cc, while the patient/fetus was monitored. I nfusion orders written and infusion of bupivicaine 0.125% + fentany l 2mcg/cc 10cc per hour started. PCEA 5cc bolus ever 15 minutes, with a m aximum of 30cc per hour. I or my partner, was immediately availab le and frequently monitored at necessary intervals. R Deana Jh Leblanc DO [place] ANESTHESIA documented in this encounter Visit Diagnoses Not on filedocumented in this encounter Additional Health Concerns Assessment Noted Time PHQ-9 Depression Total Score: 3 12/07/2018 7:05 AM CDT documented as of this encounter Care Teams Etcher Enameling Relationship Specialty Start Date End Date Annalisa Mark APRN PHD INTERNSHIP PCP - General Nurse Practitioner 03/22/15 [address] [place], [place] [phone] Mukul Rvias PA-C Assigned PCP 07/03/19 11/19/19 [address] [place], [place] [phone] documented as of this encounter
--- OUTSIDE RECORDS SUMMARY | 2022-06-06 20:59 | XMS_ITS | Encounter Summary ---
:1985 Author Organization [facility] Address [address] [place], [place] [address]. [place] [address] Care Team Providers Name Role Phone Annalisa Mark APRN, CNP Primary Care Provider [phone] Mukul Rivas PA-C Unavailable [phone] Encounter Details Date Type Department Care Team Description 07/25/2019 Travel Social History Tobacco Use Types Packs/Day [...] or relatives? How often do you attend jehovah's witness or Patient refused 2021 mandaeism services? Do you belong to any clubs or No 10/17/2021 organizations such as jehovah's witness groups, unions, fraternal or athletic groups, or [...] documented as of this encounter Care Teams Cytogenetics Laboratory Manager Relationship Specialty Start Date End Date Annalisa Mark APRN LIGHT INDUSTRIAL SUPERVISOR PCP - General Nurse Practitioner 03/22/15 [address] [place], [place] [phone] Mukul Rivas PA-C Assigned PCP 07/03/19 11/19/19 [address] [place], [place] [phone] documented as of this encounter
--- OUTSIDE RECORDS SUMMARY | 2022-06-06 20:59 | XMS_ITS | Encounter Summary ---
:1985 Author Organization [facility] Address [address] [place], [place] [address]. [place] [address] Care Team Providers Name Role Phone Deedee Annalisa Peacock APRN, CNP Primary Care Provider [phone] Mukul Rivas PA-C Unavailable [phone] Encounter Details Date Type Department Care Team Description 09/09/2019 Travel Social History Tobacco Use Types Packs/Day [...] you attend holiness or Patient refused 2021 hoahaoism services? Do [...] as of this encounter Care Teams Social Psychologist Relationship Specialty Start Date End Date Annalisa Mark APRN PRODUCT MANAGEMENT MANAGER PCP - General Nurse Practitioner 03/22/15 [address] [place], [place] [phone] Mukul Rivas PA-C Assigned PCP 07/03/19 11/19/19 [address] [place], [place] [phone] documented as of this encounter
--- OUTSIDE RECORDS SUMMARY | 2022-06-06 20:59 | XMS_ITS | Encounter Summary ---
:1985 Author Organization [facility] Address [address] [place], [place] [address]. [place] [address] Care Team Providers Name Role Phone Annalisa Mark APRN, CNP Primary Care Provider [phone] Mukul Rivas PA-C Unavailable [phone] Encounter Details Date Type Department Care Team Description 09/01/2019 Travel Social History Tobacco Use Types Packs/Day [...] or relatives? How often do you attend judaism or Patient refused 2021 shinto services? Do you belong to any clubs or No 10/17/2021 organizations such as judaism groups, unions, fraternal or athletic groups, or [...] documented as of this encounter Care Teams Railroad Repairer Relationship Specialty Start Date End Date Annalisa Mark APRN MEDICAL MANAGEMENT SPECIALIST PCP - General Nurse Practitioner 03/22/15 [address] [place], [place] [phone] Mukul Rivas PA-C Assigned PCP 07/03/19 11/19/19 [address] [place], [place] [phone] documented as of this encounter
--- OUTSIDE RECORDS SUMMARY | 2022-06-06 20:59 | XMS_ITS | Encounter Summary ---
:1985 Author Organization [place] Address [facility] [place] [address] Care Team Providers Name Role Phone DeedeeAnnalisa dean Madonna STANLEY CNP Primary Care Provider [phone] Mukul Rivas PA-C Unavailable [phone] Reason for Visit Reason Comments Care Encounter Details Date Type Department Care Team Description 08/12/2019 Office [facility] Jacob Carmona of Visit Clinic Deborah Hardy MD advanced maternal [address] [facility] age in [place], [place] trimester (Primary [phone] Dx) [place] [phone] (Wo rk) [phone] [phone] Social History Tobacco Use Types Packs/Day Years Used Date Smoking Tobacco: Never Smokeless Tobacco: Never Tobacco Cessation: Counseling Given: No Alcohol Use Standard Drinks/Week Comments Not Currently [...] you attend denominational or Patient refused 2021 confucianism services? Do you belong to any clubs [...] Reading Time Taken Comments Blood Pressure 100/60 08/12/2019 2:20 PM TOLL BOOTH OPERATOR Pulse - - Temperature - - Respiratory Rate - - Oxygen Saturation - - Inhaled Oxygen Concentration - - Weight 66.7 kg (147 lb) 08/12/2019 2:20 PM TOLL BOOTH OPERATOR Height - - Body Mass Index 26.04 07/25/2019 12:44 PM TOLL BOOTH OPERATOR documented in this encounter Progress Notes Jacob Carmona MD - 08/12/2019 2:15 PM CST IUP at 35w here for routine visit. No problems or concerns. Occ cramps. RTC 1 week BOOTH OPERATOR documented in this encounter Nursing Notes Tenisha Gates LPN - 08/12/2019 2:15 PM CST Chief Complaint Patient presents with ??? Care Initial BP 100/60 Wt 66.7 kg (147 lb) LMP 12/10/2018 No BMI 26.04 kg/m?? Estimated body mass index is 26.04 kg/m?? as calculated from the following: Height as of 07/25/19: 1.6 m (5' 3). Weight as of this encounter: 66.7 kg (147 lb). BP completed using cuff size: regular Questioned patient about current smoking habits. Pt. has never smoked. 35w0d + FM daily - cramping or bleeding Normal discharge - edema - headache or heartburn Tenisha Gates LPN BOOTH OPERATOR documented in this encounter Plan of Treatment Not on filedocumented as of this encounter Visit Diagnoses Diagnosis Multigravida of advanced maternal age in third trimester - Primary documented in this encounter Additional Health Concerns Assessment Noted Time PHQ-9 Depression Total Score: 3 12/07/2018 7:05 AM CDT documented as of this encounter Care Teams Painter Relationship Specialty Start Date End Date Annalisa Mark APRN CRIMP SETTER PCP - General Nurse Practitioner 03/22/15 [address] [place], [place] [phone] Mukul Rivas PA-C Assigned PCP 07/03/19 11/19/19 [address] [place], [place] [id number] documented as of this encounter
--- OUTSIDE RECORDS SUMMARY | 2022-06-06 20:59 | XMS_ITS | Encounter Summary ---
:1985 Author Organization [place] Address [facility] [place] [address] Care Team Providers Name Role Phone DeedeeAnnalisa dean Madonna STANLEY CNP Primary Care Provider [phone] Mukul Rivas PA-C Unavailable [phone] Reason for Visit Reason Comments Care Encounter Details Date Type Department Care Team Description 09/01/2019 Office [facility] Jacob Carmona of Visit Clinic Deborah Hardy MD advanced maternal [address] [facility] age in [place], [place] trimester (Primary [phone] Dx) [place] [phone] (Wo rk) [phone] [phone] Social History Tobacco Use Types Packs/Day Years [...] you attend hinduism or Patient refused 2021 shinto services? Do [...] Sign Reading Time Taken Comments Blood Pressure 106/62 09/01/2019 2:07 PM BRANCH ASSISTANT Pulse - - Temperature - - Respiratory Rate - - Oxygen Saturation - - Inhaled Oxygen Concentration - - Weight 68.9 kg (152 lb) 09/01/2019 2:07 PM BRANCH ASSISTANT Height - - Body Mass Index 26.93 07/25/2019 12:44 PM BRANCH ASSISTANT documented in this encounter Progress Notes Jacob Carmona MD - 09/01/2019 2:00 PM CST 34yo at 37w6d here for routine visit. No problems or concerns. GBS neg. L&D discussed. RTC 1 week if undelivered. CH ASSISTANT documented in this encounter Plan of Treatment Not on filedocumented as of this encounter Visit Diagnoses Diagnosis Multigravida of advanced maternal age in third trimester - Primary documented in this encounter Additional Health Concerns Assessment Noted Time PHQ-9 Depression Total Score: 3 12/07/2018 7:05 AM CDT documented as of this encounter Care Teams Tobacco Flavorer Relationship Specialty Start Date End Date Annalisa Mark APRN DRILLING PLANT OPERATOR PCP - General Nurse Practitioner 03/22/15 [address] [place] [address] Muklu Rivas PA-C Assigned PCP 07/03/19 11/19/19 [address] [place], [place] [phone] documented as of this encounter
--- OUTSIDE RECORDS SUMMARY | 2022-06-06 20:59 | XMS_ITS | Encounter Summary ---
:1985 Author Organization [place] Address [address] [facility] [place] [address] Care Team Providers Name Role Phone Deedee Annalisa Peacock APRN, CNP Primary Care Provider [phone] Deedee Annalisa Peacock APRN FIELD NURSE CASE MANAGER Unavailable [phone] Encounter Details Date Type Department Care Team Description 11/22/2019 Medical Correspondence [facility] Scan, [facility] Non-Provider POST-YOLIS Srvcs DEPRESSION SCALE [address] [place] [address] [place] [address] WELL-CHILD VISITS [phone] Social History Tobacco Use Types Packs/Day Years [...] or relatives? How often do you attend uatsdin or Patient refused 2021 synagogue services? Do you belong to any clubs or No 10/17/2021 organizations such as uatsdin groups, unions, fraternal or athletic groups, or [...] documented as of this encounter Care Teams Metal Smelter Relationship Specialty Start Date End Date Annalisa Mark APRN FIELD NURSE CASE MANAGER PCP - General Nurse Practitioner 03/22/15 [address] [place], [place] [phone] Annalisa Mark APRN FIELD NURSE CASE MANAGER Assigned PCP 11/20/19 12/10/19 [address] [place], [place] [phone] documented as of this encounter
--- OUTSIDE RECORDS SUMMARY | 2022-06-06 20:59 | XMS_ITS | Encounter Summary ---
:1985 Author Organization [place] Address [address] [place], [place] [address]. [place] [address] Care Team Providers Name Role Phone Annalisa Mark APRN, CNP Primary Care Provider [phone] Mukul Rivas PA-C Unavailable [phone] Encounter Details Date Type Department Care Team Description 08/16/2019 Travel Social History Tobacco Use Types Packs/Day [...] or relatives? How often do you attend orthodoxy or Patient refused 2021 mormon services? Do you belong to any clubs or No 10/17/2021 organizations such as orthodoxy groups, unions, fraternal or athletic groups, or [...] place to sleep or slept in a mcc (including now)? Education Answer Date Recorded What [...] documented as of this encounter Care Teams Press Feeder Relationship Specialty Start Date End Date Annalisa Mark APRN WEDDING FLORIST PCP - General Nurse Practitioner 03/22/15 [address] [place], [place] [phone] Mukul Rivas PA-C Assigned PCP 07/03/19 11/19/19 [address] [place], [place] [phone] documented as of this encounter
--- OUTSIDE RECORDS SUMMARY | 2022-06-06 20:59 | XMS_ITS | Encounter Summary ---
:1985 Author Organization [place] Address [facility] [place] [address] Care Team Providers Name Role Phone Annalisa Mark RAILROAD SIGNAL AND SWITCH OPERATOR MEDICAL AUTHORIZATION SPECIALIST Primary Care Provider [phone] Mukul Rivas PA-C Unavailable [phone] Reason for Visit Reason Onset Date Comments Ear Problem 11/18/2019 Encounter Details Date Type Department Care Team Description 11/18/2019 Virtual Visit [facility] Annalisa Mark Acute connie tis externa Clinic [place]ie PeacockJADEN of left ear, [address] [facility] MEDICAL AUTHORIZATION SPECIALIST [place] [address] [facility] (Primary Dx) [address] [place], [place] [phone] [address] Social History Tobacco Use Types Packs/Day Years [...] or relatives? How often do you attend voodoo or Patient refused 2021 tenriism services? 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 Left ear pain started several days ago, today it seems that the ear was clogged or had water in it. She has noticed that she has swelling behind the left ear and has dull pain. Has not taken any medication for pain. Denies fever, chills, ear drainage or decreased hearing. She has spent the day playing with her kids, felt she should be seen for her ear with the weekend coming up. Currently . Patient Active Problem List Diagnosis ??? Mild major depression (H) ??? CARDIOVASCULAR SCREENING; LDL GOAL LESS THAN 160 ??? H/O LEEP ??? History of OCD (obsessive compulsive disorder) ??? Generalized anxiety disorder ??? Indication for care in labor or delivery ??? Supervision of normal ??? state Past Surgical History: Procedure Laterality Date ??? C NONSPECIFIC PROCEDURE rt brest biopsy,benign ??? COLPOSCOPY CERVIX, LOOP ELECTRODE BIOPSY, COMBINED 04/24/09 PEDRO I & II ??? CRYOTHERAPY 04/04/08, 12/14/08 Social History Tobacco Use ??? Smoking status: [...] 6 hours as needed for other (cramping) 60 tablet 1 ??? Prenat w/o Q-WR-Edmqluy-FA-DHA (PNV-DHA) 27-0.6-0.4-300 MG CAPS No Known Allergies Reviewed and updated as needed this visit by Provider Review of Systems ROS COMP: CONSTITUTIONAL: NEGATIVE for fever, chills, change in weight ENT/MOUTH: NEGATIVE for mouth and throat problems. See HPI RESP: NEGATIVE for significant cough or SOB CV: NEGATIVE for chest pain, palpitations or peripheral edema PSYCHIATRIC: NEGATIVE for changes in mood or affect Objective LMP 12/10/2018 Estimated body mass index is 27.39 kg/m?? as calculated from the following: Height as of 07/25/19: 1.6 m (5' 3). Weight as of 09/16/19: 70.1 kg (154 lb 9.6 oz). Physical Exam GENERAL: healthy, alert and no distress HENT: HENT: right ear canal normal. Left ear canal with edema, unable to fully visualize TM. Right mastoid tenderness, slight edema, no redness or warmth. Right TM normal. nose and mouth without ulcersor lesions RESP: no audible wheeze, cough, or visible cyanosis. No visible retractions or increased work of breathing. Able to speak fully in complete sentences. NEURO: Cranial nerves grossly intact, mentation intact and speech normal PSYCH: mentation appears normal, affect normal/bright, judgement and insight intact, normal speech and appearance well-groomed Diagnostic Test Results: Labs reviewed in [facility] Results for orders placed or performed in visit on 11/18/19 (from the past 24 hour(s)) CBC with platelets differential Result Value Ref Range WBC 9.5 4.0 - 11.0 10e9/L RBC Count 4.15 3.8 - 5.2 10e12/L Hemoglobin 12.8 11.7 - 15.7 g/dL Hematocrit 38.8 35.0 - 47.0 % MCV 94 78 - 100 fl MCH 30.8 26.5 - 33.0 pg MCHC 33.0 31.5 - 36.5 g/dL RDW 12.2 10.0 - 15.0 % Platelet Count 224 150 - 450 10e9/L % Neutrophils 53.5 % % Lymphocytes 38.4 % % Monocytes 6.1 % % Eosinophils 1.7 % % Basophils 0.3 % Absolute Neutrophil 5.1 1.6 - 8.3 10e9/L Absolute Lymphocytes 3.6 0.8 - 5.3 10e9/L Absolute Monocytes 0.6 0.0 - 1.3 10e9/L Absolute Eosinophils 0.2 0.0 - 0.7 10e9/L Absolute Basophils 0.0 0.0 - 0.2 10e9/L Diff Method Automated Method Assessment & Plan Assessment Tameka was seen today for ear problem. Diagnoses and all orders for this visit: Acute otitis externa of left ear, unspecified type: Denies fever, reports dull pain, WBC 9.5, will treat as an outpatient with strict instructions to go to the ED if any increase in pain, swelling, or fever. Will treat with Augmentin and ofloxacin drops. - CBC with platelets differential - amoxicillin-clavulanate (AUGMENTIN) 875-125 MG tablet; Take 1 tablet by mouth 2 times daily - ofloxacin (FLOXIN) 0.3 % otic solution; Place 5 drops Into the left ear daily Follow up in 24 hours, sooner as needed. Annalisa Mark APRN CNP [facility] documented in this encounter Plan of Treatment Not on filedocumented as of this encounter Procedures Procedure Name Priority Date/Time Associated Diagnosis Comme nts CBC WITH PLATELETS & Routine 11/18/2019 4:00 PM Acute otitis e xterna Results for this DIFFERENTIAL CDT of left ear, procedure are i n unspecified type the results section. documented in this encounter Results CBC with platelets differential (11/18/2019 4:00 PM CDT) [facility] Method Time Signature WBC 9.5 4.0 - 11/18/2019 [facility] 11.0 4:05 PM CDT CLINICS 10e9/L [facility] RBC Count 4.15 3.8 - 5.2 11/18/2019 [facility] 10e12/L 4:05 PM CDT [facility] Hemoglobin 12.8 11.7 - 11/18/2019 [facility] 15.7 g/dL 4:05 PM CDT [facility] Hematocrit 38.8 35.0 - 11/18/2019 [facility] 47.0 % 4:05 PM CDT [facility] MCV 94 78 - 100 11/18/2019 [facility] fl 4:05 PM CDT [facility] MCH 30.8 26.5 - 11/18/2019 [facility] 33.0 pg 4:05 PM CDT [facility] MCHC 33.0 31.5 - 11/18/2019 [facility] 36.5 g/dL 4:05 PM CDT [facility] RDW 12.2 10.0 - 11/18/2019 [facility] 15.0 % 4:05 PM CDT [facility] Platelet Count 224 150 - 450 11/18/2019 [facility] 10e9/L 4:05 PM CDT [facility] % Neutrophils 53.5 % 11/18/2019 [facility] 4:05 PM CDT [facility] % Lymphocytes 38.4 % 11/18/2019 [facility] 4:05 PM CDT [facility] % Monocytes 6.1 % 11/18/2019 [facility] 4:05 PM CDT [facility] % Eosinophils 1.7 % 11/18/2019 [facility] 4:05 PM CDT [facility] % Basophils 0.3 % 11/18/2019 [facility] 4:05 PM CDT [facility] Absolute 5.1 1.6 - 8.3 11/18/2019 [facility] Neutrophil 10e9/L 4:05 PM CDT [facility] Absolute 3.6 0.8 - 5.3 11/18/2019 [facility] Lymphocytes 10e9/L 4:05 PM CDT [facility] Absolute 0.6 0.0 - 1.3 11/18/2019 [facility] Monocytes 10e9/L 4:05 PM CDT [facility] Absolute 0.2 0.0 - 0.7 11/18/2019 [facility] Eosinophils 10e9/L 4:05 PM CDT [facility] Absolute 0.0 0.0 - 0.2 11/18/2019 [facility] Basophils 10e9/L 4:05 PM CDT [facility] Diff Method Automated 11/18/2019 [facility] Method 4:05 PM CDT [facility] Specimen Anatomical Collection Method Collection Time Receive d Time (Source) Location / / Volume Laterality Blood specimen 11/18/2019 4:00 PM 020 4:01 (specimen) CDT PM CDT Annalisa Mark APRN, CNP LAB - BLOOD ORDERABLES Performing Organization Address City/State/ZIP Code Phon e Number [facility] [address] [place] [address] documented in this encounter Visit Diagnoses Diagnosis Acute otitis externa of left ear, unspec ified type - Primary documented in this encounter Additional Health Concerns Assessment Noted Time PHQ-9 Depression Total Score: 3 12/07/2018 7:05 AM CDT documented as of this encounter Care Teams Rn Emergency Room Relationship Specialty Start Date End Date Annalisa Mark APRN CNP PCP - General Nurse Practitioner 03/22/15 [address] [place] [address] Mukul Rivas PA-C Assigned PCP 07/03/19 11/19/19 [address] [place] [address] documented as of this encounter
--- OUTSIDE RECORDS SUMMARY | 2022-06-06 20:59 | XMS_ITS | Encounter Summary ---
:1985 Author Organization [place] Address [facility] [address] Care Team Providers Name Role Phone DeedeeAnnalisa dean Madonna STANLEY CNP Primary Care Provider [phone] Mukul Rivas PA-C Unavailable [phone] Reason for Visit Reason Comments Care Encounter Details Date Type Department Care Team Description 07/29/2019 Office [facility] Jacob Carmona of advanced maternal age in third trimester (Primary Dx); Visit Clinic Deborah Hardy MD Need for Tdap vaccination [address] [place], [place] [address] [address] [place] [phone] (Wo rk) [address] [phone] Social History Tobacco Use Types Packs/Day Years [...] you attend judaism or Patient refused 2021 nondenominational services? Do you belong to any clubs [...] place to sleep or slept in a group home (including now)? Education Answer Date Recorded What is the highest level of school Bachelor's degree (e.g., BA, AB, 02/15/2019 you have completed or the highest BS) degree you have received? Sex Assigned at Date Recorded Female 03/25/2021 2:01 PM CDT documented as of this encounter Last Filed Vital Signs Vital Sign Reading Time Taken Comments Blood Pressure 100/58 07/29/2019 2:34 PM ROOF CEMENT AND PAINT MAKER Pulse - - Temperature - - Respiratory Rate - - Oxygen Saturation - - Inhaled Oxygen Concentration - - Weight 65.8 kg (145 lb) 07/29/2019 2:34 PM ROOF CEMENT AND PAINT MAKER Height - - Body Mass Index 25.69 07/25/2019 12:44 PM ROOF CEMENT AND PAINT MAKER documented in this encounter Progress Notes Jacob Carmona MD - 07/29/2019 2:30 PM CST IUP at 33wk0d here for scheduled visit. TDaP today. [facility] U/S 07/22 demonstrates resolution of the LLP. Otherwise normal anatomy. RTC 2 weeks. CEMENT AND PAINT MAKER documented in this encounter Nursing Notes Luigi Carreno MA - 07/29/2019 2:30 PM CST Chief Complaint Patient presents with ??? Care Initial BP 100/58 (BP Location: Right arm, Cuff Size: Adult Regular) Wt 65.8 kg (145 lb) LMP 12/10/2018 BMI 25.69 kg/m?? Estimated body mass index is 25.69 kg/m?? as calculated from the following: Height as of 07/25/19: 1.6 m (5' 3). Weight as of this encounter: 65.8 kg (145 lb). BP completed using cuff size: regular Questioned patient about current smoking habits. Pt. has never smoked. Luigi Carreno CMA CEMENT AND PAINT MAKER documented in this encounter Plan of Treatment Not on filedocumented as of this encounter Visit Diagnoses Diagnosis Multigravida of advanced maternal age in third trimester - Primary Need for Tdap vaccination Need for prophylactic vaccination with c ombined babqpzkzkw-zzzuatg-tgignphdp (DTP) vaccine documented in this encounter Additional Health Concerns Assessment Noted Time PHQ-9 Depression Total Score: 3 12/07/2018 7:05 AM CDT documented as of this encounter Care Teams Cleaning Crew Member Relationship Specialty Start Date End Date Annalisa Mark APRN DRAGLINE MECHANIC PCP - General Nurse Practitioner 03/22/15 [address] [place], [place] [phone] Mukul Rivas PA-C Assigned PCP 07/03/19 11/19/19 [address] [place], [place] [phone] documented as of this encounter
--- OUTSIDE RECORDS SUMMARY | 2022-06-06 20:59 | XMS_ITS | Encounter Summary ---
:1985 Author Organization [place] Address [address] [place], [place] [address]. [place] [address] Care Team Providers Name Role Phone Annalisa Mark APRN, CNP Primary Care Provider [phone] Mukul Rivas PA-C Unavailable [phone] Encounter Details Date Type Department Care Team Description 08/19/2019 Travel Social History Tobacco Use Types Packs/Day [...] you attend presybeterian or Patient refused 2021 yarsanism services? Do [...] documented as of this encounter Care Teams Doctor Of Nursing Practice Relationship Specialty Start Date End Date Annalisa Mark APRN CASING GRADER PCP - General Nurse Practitioner 03/22/15 [address] [place], [place] [phone] Mukul Rivas PA-C Assigned PCP 07/03/19 11/19/19 [address] [place], [place] [phone] documented as of this encounter
--- OUTSIDE RECORDS SUMMARY | 2022-06-06 20:59 | XMS_ITS | Encounter Summary ---
:1985 Author Organization [place] Address [address] [place], [place] [address]. [place] [address] Care Team Providers Name Role Phone Annalisa Mark APRN, CNP Primary Care Provider [phone] Mukul Rivas PA-C Unavailable [phone] Encounter Details Date Type Department Care Team Description 11/18/2019 Travel Social History Tobacco Use Types Packs/Day [...] or relatives? How often do you attend scientologist or Patient refused 2021 samaritan services? Do you belong to any clubs or No 10/17/2021 organizations such as scientologist groups, unions, fraternal or athletic groups, or [...] documented as of this encounter Care Teams Hatchery Laborer Relationship Specialty Start Date End Date Annalisa Mark APRN REVENUE CYCLE MANAGER PCP - General Nurse Practitioner 03/22/15 [address] [place], [place] [phone] Mukul Rivas PA-C Assigned PCP 07/03/19 11/19/19 [address] [place], [place] [phone] documented as of this encounter
--- OUTSIDE RECORDS SUMMARY | 2022-06-06 20:59 | XMS_ITS | Encounter Summary ---
:1985 Author Organization [place] Address [facility] [place] [address] Care Team Providers Name Role Phone DeedeeAnnalisa dean Madonna STANLEY CNP Primary Care Provider [phone] Mukul Rivas PA-C Unavailable [phone] Reason for Visit Reason Comments Care Encounter Details Date Type Department Care Team Description 09/16/2019 Office [facility] Jacob Carmona of Visit Clinic Deborah Hardy MD advanced maternal [address] [facility] age in [place], [place] trimester (Primary [address] [address] Dx) [place] [phone] (Wo rk) [address] [phone] Social History Tobacco Use Types Packs/Day Years [...] you attend uatsdin or Patient refused 2021 orthodoxy services? Do [...] Sign Reading Time Taken Comments Blood Pressure 110/64 09/16/2019 11:35 AM ULTIMATE HOOPS REFEREE Pulse - - Temperature - - Respiratory Rate - - Oxygen Saturation - - Inhaled Oxygen Concentration - - Weight 70.1 kg (154 lb 9.6 oz) 09/16/2019 11:35 AM ULTIMATE HOOPS REFEREE Height - - Body Mass Index 27.39 07/25/2019 12:44 PM ULTIMATE HOOPS REFEREE documented in this encounter Progress Notes Jacob Carmona MD - 09/16/2019 11:30 AM CST 34 yo at 40w here to discuss induction. We had previously discussed postdates and elective induction. Last delivery was by forceps due to prolonged 2nd stage and maternal exhaustion (Bebeto Saul MD). Baby weighed 9lbs 2oz. EFW today 8+ with favorable cervix. Discussed pros/cons of induction vs awaiting spontaneous labor Induction scheduled for 09/19/19. MATE HOOPS REFEREE documented in this encounter Nursing Notes Kerri Roa CMA - 09/16/2019 11:30 AM CST Chief Complaint Patient presents with ??? Care 40w0d Discuss delivery initial Wt 70.1 kg (154 lb 9.6 oz) LMP 12/10/2018 BMI 27.39 kg/m?? Estimated body mass index is 27.39 kg/m?? as calculated from the following: Height as of 07/25/19: 1.6 m (5' 3). Weight as of this encounter: 70.1 kg (154 lb 9.6 oz). BP completed using cuff size regular. Kerri Roa CMA MATE HOOPS REFEREE documented in this encounter Plan of Treatment Not on filedocumented as of this encounter Visit Diagnoses Diagnosis Multigravida of advanced maternal age in third trimester - Primary documented in this encounter Additional Health Concerns Assessment Noted Time PHQ-9 Depression Total Score: 3 12/07/2018 7:05 AM CDT documented as of this encounter Care Teams Director Of Customer Acquisition Relationship Specialty Start Date End Date Annalisa Mark APRN MINIATURE TRAIN DRIVER PCP - General Nurse Practitioner 03/22/15 [address] [place], [place] [phone] Mukul Rivas PA-C Assigned PCP 07/03/19 11/19/19 [address] [place], [place] [phone] documented as of this encounter
--- OUTSIDE RECORDS SUMMARY | 2022-06-06 20:59 | XMS_ITS | Encounter Summary ---
:1985 Author Organization [facility] Address [address] [place], [place] [address]. [place] [address] Care Team Providers Name Role Phone Annalisa Mark APRN, CNP Primary Care Provider [phone] Mukul Rivas PA-C Unavailable [phone] Encounter Details Date Type Department Care Team Description 09/15/2019 Travel Social History Tobacco Use Types Packs/Day [...] you attend methodist or Patient refused 2021 yazdanism services? Do [...] documented as of this encounter Care Teams Operations Specialists Relationship Specialty Start Date End Date Annalisa Mark APRN POWER GENERATION TECHNICIAN PCP - General Nurse Practitioner 03/22/15 [address] [place], [place] [id number] Mukul Rivas PA-C Assigned PCP 07/03/19 11/19/19 [address] [place], [place] [id number] documented as of this encounter
--- OUTSIDE RECORDS SUMMARY | 2022-06-06 20:59 | XMS_ITS | Encounter Summary ---
:1985 Author Organization [facility] Address [address] [facility] [place] [address] Care Team Providers Name Role Phone Annalisa Mark APRN, CNP Primary Care Provider [phone] Mukul Rivas PA-C Unavailable [phone] Encounter Details Date Type Department Care Team Description 09/29/2019 Medical Correspondence [facility] Scan, [facility] Non-Provider POST-YOLIS Srvcs DEPRESSION SCALE [address] [place] [address] [place] [address] WELL-CHILD VISITS [phone] Social History Tobacco Use Types Packs/Day Years [...] you attend mormon or Patient refused 2021 baptism services? Do you belong to any clubs [...] documented as of this encounter Care Teams Teletype Telegrapher Relationship Specialty Start Date End Date Annalisa Mark APRN PANTRY CHEF PCP - General Nurse Practitioner 03/22/15 [id number] [place], [place] [id number] Mukul Rivas PA-C Assigned PCP 07/03/19 11/19/19 [id number] [place], [place] [id number] documented as of this encounter
--- OUTSIDE RECORDS SUMMARY | 2022-06-06 20:59 | XMS_ITS | Encounter Summary ---
:1985 Author Organization Theresa Address [facility] [address] Care Team Providers Name Role Phone DeedeeAnnalisa dean Madonna STANLEY CNP Primary Care Provider [phone] Mukul Rivas PA-C Unavailable [phone] Reason for Visit Reason Comments Induction Of Labor Auth/Cert Specialty Diagnoses / Procedures Referred By Contact Refer red To Contact customer greeter Diagnoses Supervision of normal Rh Labor And Delivery [address] [place], [place] [address] Phone: Fax: Referral ID Status Reason Start Date Expiration Date Visits Requ ested Visits Authorized [id number] 1 1 Encounter Details Date Type Department Care Team Description 09/19/2019 - Hospital Encounter [facility] Samuel (spontaneous 09/21/2019 [facility] MD Prudencio vaginal delivery) [address] (Primary Dx) [place], [place] [id number] [address] [place] [address] Social History Tobacco Use Types Packs/Day Years [...] or relatives? How often do you attend quaker or Patient refused 2021 pentecostal services? Do you belong to any clubs or No 10/17/2021 organizations such as quaker groups, unions, fraternal or athletic groups, or [...] Sign Reading Time Taken Comments Blood Pressure 109/70 09/21/2019 9:32 AM INSURANCE RISK MANAGER Pulse 67 09/21/2019 1:31 AM INSURANCE RISK MANAGER Temperature 36.7 ??C (98 ??F) 09/21/2019 9:32 AM INSURANCE RISK MANAGER Respiratory Rate 18 09/21/2019 9:32 AM INSURANCE RISK MANAGER Oxygen Saturation 96% 09/19/2019 1:07 PM INSURANCE RISK MANAGER Inhaled Oxygen Concentration - - Weight - - Height - - Body Mass Index - - documented in this encounter Discharge Summaries Yakelin Flynn, - 09/21/2019 7:54 AM CST 34 year old y/o s/p ppd # 2 hemoglobin is Hemoglobin Date Value Ref Range Status 08/16/2019 12.4 11.7 - 15.7 g/dL Final ] d/c home On breast pump and ibuprofen Follow-up in 6 weeks for post examination [facility] Post- Progress Note Assessment and Plan: Assessment: Post- day #2 Normal spontaneous vaginal delivery L&D complications: None Doing well. Pain well-controlled. Has ocd and anxiety, seems to cope well at this point, considers medications, but not right now Plan: Ambulation encouraged Discharge later today Interval History: Doing well. Pain is well-controlled. No fevers. No history of foul-smelling vaginal discharge. Good appetite. Denies chest pain, shortness of breath, nausea or vomiting. Vaginal bleeding is similar to a heavy menstrual flow. Ambulatory. well. Significant Problems: None Review of Systems: The patient denies any chest pain, shortness of breath, excessive pain, fever, chills, purulent drainage from the wound, nausea or vomiting. Medications: All medications related to the patient's surgery have been reviewed Physical Exam: All vitals stable Patient Vitals for the past 8 hrs: BP Temp Temp src Pulse Resp 09/21/19 0131 118/69 98.1 ??F (36.7 ??C) Oral 67 20 Uterine fundus is firm, non-tender and at the level of the umbilicus Data: All laboratory data related to this surgery reviewed Hemoglobin Date Value Ref Range Status 08/16/2019 12.4 11.7 - 15.7 g/dL Final 06/15/2019 11.4 (L) 11.7 - 15.7 g/dL Final 02/15/2019 12.4 11.7 - 15.7 g/dL Final 12/08/2018 13.9 11.7 - 15.7 g/dL Final 07/06/2018 13.4 11.7 - 15.7 g/dL Final - Yakelin Flynn DO RANCE RISK MANAGER documented in this encounter Discharge Instructions Discharge Betty Cano RN - 09/21/2019 10:52 AM CST Follow up in 6 weeks Call [phone] for appointment Call and ask to be seen or talk to a doctor for the following: (You can go to the ob triage button On answering service line) . Increased bleeding, fever, general unwell feeling or increased pain. Dr. Yakelin Flynn DO DIRECTOR SECURITY MANAGEMENT [facility] : [phone] Vaginal Delivery Instructions Activity ?? Ask family and friends for help when you need it. ?? Do not place anything in your vagina for 6 weeks. ?? You are not restricted on other activities, but take it easy for a few weeks to allow your body to recover from delivery. You are able to do any activities you feel up to that point. ?? No driving until you have stopped taking your pain medications (usually two weeks after delivery). Call your health care provider if you have any of these symptoms: ?? Increased pain, swelling, redness, or fluid around your stiches from an episiotomy or perineal tear. ?? A fever above 100.4 F (38 C) with or without chills when placing a thermometer under your tongue. ?? You soak a sanitary pad with blood within 1 hour, or you see blood clots larger than a golf ball. ?? Bleeding that lasts more than 6 weeks. ?? Vaginal discharge that smells bad. ?? Severe pain, cramping or tenderness in your lower belly area. ?? A need to urinate more frequently (use the toilet more often), more urgently (use the toilet veryquickly), or it frost when you urinate. ?? Nausea and vomiting. ?? Redness, swelling or pain around a vein in your leg. ?? Problems or a red or painful area on your breast. ?? Chest pain and cough or are gasping for air. ?? Problems coping with sadness, anxiety, or depression. If you have any concerns about hurting yourself or the baby, call your provider immediately. ?? You have questions or concerns after you return home. Keep your hands clean: Always wash your hands before touching your perineal area and stitches. This helps reduce your risk of infection. If your hands aren't dirty, you may use an alcohol hand-rub to clean your hands. Keep your nails clean and short. RANCE RISK MANAGER documented in this encounter Medications at Time of Discharge Medication Sig Dispensed Refills Start Date End Date Calcium 600-400 MG-UNIT 0 02/15/2019 0 10/17/2021 CHEW ferrous sulfate (FEROSUL) Take 325 mg by mouth 0 06/22/2020 325 (65 Fe) MG tablet daily (with breakfast) ibuprofen (ADVIL/MOTRIN) Take 1 tablet (800 60 tablet 1 05/03/2020 800 MG tabletIndications: mg) by mouth every 6 (spontaneous vaginal hours as needed for delivery) other (cramping) Prenat w/o 0 02/15/2019 10/23/2020 S-GU-Zmerlad-FA-DHA (PNV-DHA) 27-0.6-0.4-300 MG CAPS documented as of this encounter Progress Notes Suzan Toure RN - 09/21/2019 9:54 AM CST Patient unavailable when Public Health Nurse (PHN) stopped by to discuss [facility]. PHN attempted x3. Yakelin Alvarez DO - 09/21/2019 7:54 AM CST [facility] Post- Progress Note Assessment and Plan: Assessment: Post- day #2 Normal spontaneous vaginal delivery L&D complications: None Doing well. Pain well-controlled. Has ocd and anxiety, seems to cope well at this point, considers medications, but not right now Plan: Ambulation encouraged Discharge later today Interval History: Doing well. Pain is well-controlled. No fevers. No history of foul-smelling vaginal discharge. Good appetite. Denies chest pain, shortness of breath, nausea or vomiting. Vaginal bleeding is similar to a heavy menstrual flow. Ambulatory. well. Significant Problems: None Review of Systems: The patient denies any chest pain, shortness of breath, excessive pain, fever, chills, purulent drainage from the wound, nausea or vomiting. Medications: All medications related to the patient's surgery have been reviewed Physical Exam: All vitals stable Patient Vitals for the past 8 hrs: BP Temp Temp src Pulse Resp 09/21/19 0131 118/69 98.1 ??F (36.7 ??C) Oral 67 20 Uterine fundus is firm, non-tender and at the level of the umbilicus Data: All laboratory data related to this surgery reviewed Hemoglobin Date Value Ref Range Status 08/16/2019 12.4 11.7 - 15.7 g/dL Final 06/15/2019 11.4 (L) 11.7 - 15.7 g/dL Final 02/15/2019 12.4 11.7 - 15.7 g/dL Final 12/08/2018 13.9 11.7 - 15.7 g/dL Final 07/06/2018 13.4 11.7 - 15.7 g/dL Final - Yakelin Flynn DO RANCE RISK MANAGER Tavia Beckham MD - 09/20/2019 10:00 AM CST progress note 09/20/2019 S: Doing pretty well. Pain is well controlled. Lochia minimal. Ambulating without difficulty. Voiding without difficulty. Passing flatus, no BM yet. Tolerating po intake. Hasn't been up much yet to know how the incision feels as it is healing. PHYSICAL EXAM: Vitals: 09/19/19 1845 09/19/19 1930 09/19/19 2330 09/20/19 0800 BP: 114/59 109/68 120/68 112/71 Pulse: 75 77 68 Resp: 16 18 18 16 Temp: 98.4 ??F (36.9 ??C) 97.8 ??F (36.6 ??C) 97.9 ??F (36.6 ??C) TempSrc: Oral Oral Oral SpO2: General: sitting up, alert and cooperative Abd: soft, non-distended, non-tender. Fundus firm, nontender, 2 cm below umbilicus. Extremities: calves nontender, no edema of lower extremities bilaterally : deferred Lab Results Component Value Date HGB 12.4 08/16/2019 HGB 11.4 06/15/2019 Blood type: Lab Results Component Value Date RH Pos 08/16/2019 ASSESSMENT: 34 year old PPD 1 s/p c/b episiotomy. PLAN: - Heme: not rechecked, no s/s ABLA - Feeding: breast - control: not discussed - Rh status: pos, Rhogam not indicated - Rubella status: immune - Dispo: home tomorrow Tavia Beckham MD, MPH [facility] customer greeter Prudencio Paz MD - 09/19/2019 11:59 AM CST AROM clear fluid after obtaining informed consent. Cx 2 95 -1 -2sta. FHT's Cat 1 A/P: Doing well Anticipate vag del RANCE RISK MANAGER documented in this encounter H&P Notes Prudencio Baker MD - 09/19/2019 8:07 AM CST [facility] Labor and Delivery History and Physical Tameka Daley Age: [age] year old Date of : 1985 Date of Admission: 09/19/2019 Primary care provider: Annalisa Mark Chief Complaint: Tameka Daley is a 34 year old white female Estimated Date of Delivery: Sep 16, 2019 who is 40w3d and being admitted for induction of labor, indication-- Last delivery was by forcepsdue to prolonged 2nd stage and maternal exhaustion (Bebeto Saul MD). Baby weighed 9lbs 2oz. EFWtoday 8# with favorable cervix. Discussed pros/cons of induction vs awaiting spontaneous labor ?? Induction scheduled for 09/19/19. history: OBSTETRIC HISTORY: OB History Para Term AB Living 3 1 1 0 1 1 SAB TAB Ectopic Multiple Live Births 1 0 0 0 1 # Outcome Date GA Lbr Chema/2nd Weight Sex Delivery Anes PTL Lv 3 Current 2 Term 11/16/16 41w0d 09:00 / 02:59 4.15 kg (9 lb 2.4 oz) M Vag-Forceps IV REGIONAL, EPI N RICKEY Complications: Prolonged PROM (>18 hours) Name: STAR DALEY Apgar1: 8 Apgar5: 9 1 SAB 10/2015 6w0d EDC: Estimated Date of Delivery: 09/16/19 Labs: Lab Results Component Value Date ABO A 08/16/2019 RH Pos 08/16/2019 Neg 08/16/2019 HEPBANG Nonreactive 02/15/2019 CHPCRT Negative 02/15/2019 GCPCRT Negative 02/15/2019 TREPAB Negative 11/15/2016 HGB 12.4 08/16/2019 HIV Negative 04/01/2013 GBS Status: Lab Results Component Value Date GBS Negative 08/19/2019 Active Problem List Patient Active Problem List Diagnosis ??? Mild major depression (H) ??? CARDIOVASCULAR SCREENING; LDL GOAL LESS THAN 160 ??? H/O LEEP ??? History of OCD (obsessive compulsive disorder) ??? Generalized anxiety disorder ??? Indication for care in labor or delivery Medication Prior to Admission Medications Prior to Admission Medication Sig Dispense Refill Last Dose ??? Calcium 600-400 MG-UNIT CHEW Taking ??? ferrous sulfate (FEROSUL) 325 (65 Fe) MG tablet Take 325 mg by mouth daily (with breakfast) Taking ??? Prenat w/o S-FA-Bncuorg-FA-DHA (PNV-DHA) 27-0.6-0.4-300 MG CAPS Taking . Maternal Past Medical History: Past Medical History: Diagnosis Date ??? Allergic [...] Wounds and injuries fall in 09/03/16 Family History: I have reviewed this patient's family history Social History: I have reviewed this patient's social history Review of Systems: CONSTITUTIONAL: NEGATIVE for fever, chills, change in weight ENT/MOUTH: NEGATIVE for ear, mouth and throat problems RESP: NEGATIVE for significant cough or SOB CV: NEGATIVE for chest pain, palpitations or peripheral edema Physical Exam: Vitals were reviewed All vitals stable Temp: 98 ??F (36.7 ??C) Temp src: Oral Pulse: 122 Resp: 18 Constitutional: awake, alert, cooperative, no apparent distress, and appears stated age Eyes: Lids and lashes normal, pupils equal, round and reactive to light, extra ocular muscles intact, sclera clear, conjunctiva normal ENT: Normocephalic, without obvious abnormality, atraumatic, sinuses nontender on palpation, external ears without lesions, oral pharynx with moist mucous membranes, tonsils without erythema or exudates, gums normal and good dentition. Neck: Supple, symmetrical, trachea midline, no adenopathy, thyroid symmetric, not enlarged and no tenderness, skin normal Hematologic / Lymphatic: no cervical lymphadenopathy and no supraclavicular lymphadenopathy Back: Symmetric, no curvature, spinous processes are non-tender on palpation, paraspinous muscles are non-tender on palpation, no costal vertebral tenderness Lungs: No increased work of breathing, good air exchange, clear to auscultation bilaterally, no crackles or wheezing Cardiovascular: Normal apical impulse, regular rate and rhythm, normal S1 and S2, no S3 or S4, and no murmur noted Abdomen: No scars, normal bowel sounds, soft, gravid uterus lewis infant vtx EFW 8 #, non-tender, no masses palpated, no hepatosplenomegally Genitounirinary: External Genitalia: General appearance; normal Musculoskeletal: There is no redness, warmth, or swelling of the joints. Full range of motion noted. Motor strength is 5 out of 5 all extremities bilaterally. Tone is normal. Neurologic: Awake, alert, oriented to name, place and time. Cranial nerves II-XII are grossly intact. Motor is 5 out of 5 bilaterally. Cerebellar finger to nose, heel to bass intact. Sensory is intact. Babinski down going, Romberg negative, and gait is normal. Cervix: Membranes: intact Dilation: 2 Effacement: 90% Station:-2 Consistency: average Position: Mid Presentation:Cephalic Heart Rate Tracing: Tier 1 (normal) Tocometer: external monitor and inadequate Assessment: Tameka Daley is a 40w3d female admitted with induction of labor, indication Last delivery was by forceps due to prolonged 2nd stage and maternal exhaustion (Bebeto Saul MD). Baby weighed 9lbs 2oz. EFW today 8# with favorable cervix. Discussed pros/cons of induction vs awaiting spontaneous labor ?? Induction scheduled for 09/19/19. Plan: Admit - see IP orders Labor induction with Pitocin and AROM Clinical pelvimetry adequate for this EFW to my exam Risks, benefits, and alternative modes of therapy discussed at length. Pathophysiology of the disease process reviewed, all of the patients questions answered and informed consent obtained. Prudencio Baker MD RANCE RISK MANAGER documented in this encounter Miscellaneous Notes Note - Mary Lou Olivo RN - 09/21/2019 12:20 PM CST This note was copied from a baby's chart. follow up. Tameka is still concerned about her milk volumes. She has been using formula. requested that she show her technique for hand expression and she was unable to express anything forward.However, when LC performed hand expression, milk was easily expressed and good volumes available. LCprovided encouragement, discussed her plan for nursing at home, encouraged her to nurse often, on demand, and also pump when she is using formula. All questions were answered. She is aware she may callprn. RANCE RISK MANAGER Plan of Care - Betty Joshi RN - 09/21/2019 12:04 PM CST Vitals stable. Pain adequately controlled with ibuprofen. Discharge instructions provided and questions answered. Prescriptions given. Declined breast pump. Bonding well with baby. Will be discharging later this afternoon. RANCE RISK MANAGER Provider Notification - Bela Solis RN - 09/21/2019 7:38 AM CST 09/21/19 0738 Provider Notification Provider Name/Title Dr. Flynn Method of Notification At Bedside Request Evaluate-Remote Notification Reason Status Update Physician informed pt appears anxious - asking rapid fire questions, stating it has been a long time, 3 years, and she does not remember how to care for a new born - how to bathe a baby, when to feed, how often a baby should void and stool, etc.. She also stated how busy she will be once going home since she has a toddler. Physician plans to talk with patient about her anxiety now. Bela Solis RN on 09/21/2019 at 7:43 AM RANCE RISK MANAGER Plan of Care - Bela Solis RN - 09/21/2019 6:11 AM CST VSS. Pt denies pain. Tylenol and ibuprofen declined. Breast and bottle feeding. Pt states she is notproducing any colostrum. Pt encouraged to breast feed, hand express, or pump every 2 - 3 hrs despiteproducing colostrum. Pt chose to bottle feed throughout the night. Fundus firm. Bleeding scant per pt's report. Episiotomy and laceration within normal limits per pt's report. Pt educated on the signs/symptoms of infection and hematoma. Bonding well with infant. Very concerned about infant not eating enough AND eating too much and gagging. Concerns acknowledged. Pt educated on intake. Plan to discharge home today. Bela Solis RN on 09/21/2019 at 6:18 AM RANCE RISK MANAGER Plan of Care - Tomasa Galvez RN - 09/20/2019 10:51 PM CST Patient eating and drinking normally. Patient able to empty bladder independently and is up ambulating. No apparent signs of infection. Patient performing self cares and is able to care for . Action: Patient medicated during the shift for cramping pain. See MAR. Patient reassessed within 1 hour after each medication and pain was improved - patient stated she was comfortable. Patient education done about finger feeding. Response: Positive attachment behaviors observed with infant. Plan: Anticipate discharge on 09/21/2019. RANCE RISK MANAGER Plan of Care - Fely Bradley RN - 09/20/2019 6:51 PM CST VSS; patient is ambulating in the room; voiding without difficulty and denies any clots. She is breast feeding baby and will attempt to latch herself but requires assistance to get a deep latch.She has a history of low milk supply after her first delivery and says that the nursing hurts just as much. She has said that the pain just isn't worth it for the 2-4 ounces I get. She is very anxious and not 100% receptive to help. Continue to offer help as needed. RANCE RISK MANAGER Plan of Care - Beryl Gordon RN - 09/20/2019 1:31 PM CST Vital Signs: VSS. Afebrile. Pain/Comfort: Cramping pain, well managed with tylenol and motrin. Assessment: WDL. Fundus firm. Light bleeding. Diet: Regular diet Output: Voiding well Activity/Ambulation: Up independently in room Social: Bonding well with baby. A bit anxious at times. RANCE RISK MANAGER Note - Mary Lou Olivo RN - 09/20/2019 1:05 PM CST This note was copied from a baby's chart. LC visit. She was quite concerned about her milk volumes and stated that she was not producing any milk. LC observed a good latch with frequent swallowing and pointed swallows to mother. LC also used HE to observe volumes and milk was easily expressed and dripping down. No concerns. Pump was placed atbedside if she would like to use additional stimulation, but not medically indicated or necessary. Plan for continued support and education. Close monitoring for output and weight loss required due to sibling history of dehydation per mom report. RANCE RISK MANAGER Plan of Care - Trish Austin RN - 09/20/2019 6:07 AM CST VSS. Fundus firm at 1cm below U, bleeding light. No clots. Episiotomy well- approximated. Tucks pads to landon area. Pain managed well with ibuprofen/tylenol. See eMar. Patient bonding well with , however, expresses fear and anxiety with caring for her. Patient given education, reassurance and positive reinforcement to calm her fears. Patient reports that since her older son has CF, she is worriedfor this baby as well. goes well, however, no colostrum was able to be expressed manually, and no audible swallows heard while infant at breast. Referral to requested. RANCE RISK MANAGER Plan of Care - Hilaria Cervantes RN - 09/19/2019 7:15 PM CST Data: Tameka Daley transferred to [facility] via wheelchair at 1900. Baby transferred via parent's arms. Action: Receiving unit notified of transfer: Yes. Patient and family notified of room change. Reportgiven to Trish POLO at 1920. Belongings sent to receiving unit. Accompanied by Registered Nurse. Oriented patient to surroundings. Call light within reach. ID bands double-checked with receiving RN. Response: Patient tolerated transfer and is stable. Patients mobililty level scored using the bedside mobility assistance tool (BMAT). Patient is at a mobility level test number: 3. Mobility equipment used: kiel [employer]. Required assist of 1 staff members. Further use of BMAT scoring required. RANCE RISK MANAGER L&D Delivery Note - Prudencio Baker MD - 09/19/2019 4:37 PM CST OB Vaginal Delivery Note Tameka Daley Age: [age] year old Date of : 1985 GA: 40w3d GP: Labor Complications: None EBL: mL Delivery QBL: 77 mL Delivery Type: Vaginal, Spontaneous ROM to Delivery Time: (Delivered) Hours: 4 Minutes: 21 [place] Weight: 1 Minute 5 Minute 10 Minute Totals: 8 8 HILARIA KELLOGG Delivery Details: Tameka Daely, a 34 year old female delivered a viable infant with apgars of 8 and 8 . Patient was fully dilated and pushing after hours minutes in active labor. Delivery was via vaginal, spontaneous to a sterile field under epidural anesthesia. Infant delivered in vertex occiput anterior position. Anterior and posterior shoulders delivered without difficulty. The cord was clamped, cut twice and 3 vessels were noted. Cord blood was obtained in routine fashion with the following disposition: lab . Cord complications: none Placenta delivered at 09/19/2019 4:22 PM . Placental disposition was Hospital disposal . Fundal massage performed and fundus found to be firm. Episiotomy: median done to expedite delivery for Cat 3 tracing Perineum, vagina, cervix were inspected, and the following lacerations were noted: Perineal lacerations: 2nd labial laceration: bilateral Any lacerations were repaired in the usual fashion using 3-0 chromic in layers. Excellent hemostasis was noted. Needle count correct. and patient in delivery room in good and stable condition. Labor Event Times Labor onset date: 09/19/19 Onset time: 11:58 AM Dilation complete date: 09/19/19 Complete time: 3:34 PM Start pushing date/time: 09/19/2019 1605 Labor Events labor?: No steroids: None Predominate monitoring during 1st stage: continuous electronic monitoring Rupture date/time: 09/19/19 1158 Rupture type: Artificial Rupture of Membranes Fluid color: Clear Fluid odor: Normal 1:1 continuous labor support provided by?: extracorporeal circulation specialist/Placenta Date and Time Delivery Date: 09/19/19 Delivery Time: 4:19 PM Placenta Date/Time: 09/19/2019 4:22 PM Oxytocin given at the time of delivery: after delivery of placenta Vaginal Counts Initial count performed by 2 team members: Two Team Members ellie Baker [place] Suture [place] Sponges Instruments Initial counts 2 5 Added to count 1 Final counts 2 1 5 Placed during labor Accounted for at the end of labor NA NA NA NA NA NA Final count performed by 2 team members: Two Team Members CHRIST Lerner Dr. Final count correct?: Yes Apgars Living status: Living 1 Minute 5 Minute 10 Minute 15 Minute 20 Minute Skin color: 0 0 Heart rate: 2 2 Reflex irritability: 2 2 Muscle tone: 2 2 Respiratory effort: 2 2 Total: 8 8 Apgars assigned by: HILARIA Vaughn RN Cord Vessels: 3 Vessels Complications: None Cord Blood Disposition: Lab Gases Sent?: No [place] Resuscitation Methods: None Skin to Skin and Feeding Plan Skin to skin initiation date/time: 07/28/1840 Skin to skin with: Mother Skin to skin end date/time: How do you plan to feed your baby: Labor Events and Shoulder Dystocia Tracing Prior to Delivery: Category 1 Shoulder dystocia present?: Neg Delivery (Maternal) (Provider to Complete) ([id number]) Episiotomy: Median Indications for episiotomy: Macrosomia Perineal lacerations: 2nd Repaired?: Yes Labial laceration: bilateral Repaired?: No Blood Loss Mother: Tameka Daley #[id number] Start of Mother's Information IO Blood Loss 09/19/19 1158 - 09/19/19 1637 Delivery QBL (mL) Hospital Encounter 77 mL Total 77 mL End of Mother's Information Mother: Tameka Daley #[id number] Delivery - Provider to Complete ([id number]) Delivering clinician: Prudencio Baker MD Attempted Delivery Types (Choose all that apply): Spontaneous Vaginal Delivery Delivery Type (Choose the 1 that will go to the History): Vaginal, Spontaneous Other personnel: Provider Role Hilaria Kellogg RN Registered Nurse Placenta Delayed Cord Clamping: Done Date/Time: 09/19/2019 4:22 PM Removal: Spontaneous Disposition: Hospital disposal Anesthesia Method: Epidural Cervical dilation at placement: 0-3 Presentation and Position Presentation: Vertex Occiput Anterior Prudencio Baker MD RANCE RISK MANAGER L&D Delivery Note - Prudencio Baker MD - 09/19/2019 4:35 PM CST Delivery Summary Tameka Daley Age: [age] year old Date of : 1985 ASSESSMENT & PLAN: routine post cares Labor Event Times Labor onset date: 09/19/19 Onset time: 11:58 AM Dilation complete date: 09/19/19 Complete time: 3:34 PM Start pushing date/time: 09/19/2019 1605 Labor Events labor?: No steroids: None Predominate monitoring during 1st stage: continuous electronic monitoring Rupture date/time: 09/19/19 1158 Rupture type: Artificial Rupture of Membranes Fluid color: Clear Fluid odor: Normal 1:1 continuous labor support provided by?: extracorporeal circulation specialist/Placenta Date and Time Delivery Date: 09/19/19 Delivery Time: 4:19 PM Placenta Date/Time: 09/19/2019 4:22 PM Oxytocin given at the time of delivery: after delivery of placenta Vaginal Counts Initial count performed by 2 team members: Two Team Members ellie Baker [place] Suture [place] Sponges Instruments Initial counts 2 5 Added to count 1 Final counts 2 1 5 Placed during labor Accounted for at the end of labor NA NA NA NA NA NA Final count performed by 2 team members: Two Team Members CHRIST Lerner Dr. Final count correct?: Yes Apgars Living status: Living 1 Minute 5 Minute 10 Minute 15 Minute 20 Minute Skin color: 0 0 Heart rate: 2 2 Reflex irritability: 2 2 Muscle tone: 2 2 Respiratory effort: 2 2 Total: 8 8 Apgars assigned by: HILARIA Vaughn RN Cord Vessels: 3 Vessels Complications: None Cord Blood Disposition: Lab Gases Sent?: No [place] Resuscitation Methods: None Skin to Skin and Feeding Plan Skin to skin initiation date/time: 07/28/1840 Skin to skin with: Mother Skin to skin end date/time: How do you plan to feed your baby: Labor Events and Shoulder Dystocia Tracing Prior to Delivery: Category 1 Shoulder dystocia present?: Neg Delivery (Maternal) (Provider to Complete) ([id number]) Episiotomy: Median Indications for episiotomy: Macrosomia Perineal lacerations: 2nd Repaired?: Yes Labial laceration: bilateral Repaired?: No Blood Loss Mother: Tameka Daley #[id number] Start of Mother's Information IO Blood Loss 09/19/19 1158 - 09/19/19 1635 Delivery QBL (mL) Hospital Encounter 77 mL Total 77 mL End of Mother's Information Mother: Tameka Daley #[id number] Delivery - Provider to Complete ([id number]) Delivering clinician: Prudencio Baker MD Attempted Delivery Types (Choose all that apply): Spontaneous Vaginal Delivery Delivery Type (Choose the 1 that will go to the History): Vaginal, Spontaneous Other personnel: Provider Role Hilaria Kellogg RN Registered Nurse Placenta Delayed Cord Clamping: Done Date/Time: 09/19/2019 4:22 PM Removal: Spontaneous Disposition: Hospital disposal Anesthesia Method: Epidural Cervical dilation at placement: 0-3 Presentation and Position Presentation: Vertex Occiput Anterior Prudencio Baker MD RANCE RISK MANAGER Provider Notification - Hilaria Cervantes RN - 09/19/2019 11:58 AM INSURANCE RISK MANAGER 09/19/19 1158 Provider Notification Provider Name/Title Dr Baker Method of Notification At Bedside Notification Reason Labor Status;Uterine Activity;Status Update Dr Baker at bedside, tracing reviewed, POC discussed with pt for AROM, SVE performed with no change, AROM performed, pt tolerated well. RANCE RISK MANAGER Provider Notification - Hilaria Cervantes RN - 09/19/2019 7:55 AM CST 09/19/19 0755 Provider Notification Provider Name/Title Dr Baker Method of Notification At Bedside Dr Baker at bedside discussing POC for induction, SVE 2/90/-2 with Hough score 8. Will start pitocin then proceed with AROM. Pt concurs with POC RANCE RISK MANAGER Plan of Care - Hilaria Cervantes RN - 09/19/2019 7:39 AM CST Data: [facility] to [facility]: 09/19/2019 7:30 AM. Patient admitted for induction for historyof macrosomia with forcep delivery. Patient is a . record reviewed. has been uncomplicated. First child has cystic fibrosis. Pt and spouse are carriers. Gestational Age 40w3d. VSS. movement present. Patient denies uterine contractions, leaking of vaginal fluid/rupture of membranes, vaginal bleeding, abdominal pain, pelvic pressure, nausea, vomiting, headache, visual disturbances, epigastric or URQ pain, significant edema. Support person is present. Action: Verbal consent for EFM. Admission assessment completed. Bill of rights reviewed. Response: Patient verbalized agreement with plan. Will contact Dr Prudencio Baker with update and further orders. RANCE RISK MANAGER documented in this encounter Plan of Treatment Not on filedocumented as of this encounter Procedures Procedure Name Priority Date/Time Associated Diagnosis Comme nts TREPONEMA ABS W STAT 09/19/2019 8:00 AM Result s for this REFLEX TO RPR AND INSURANCE RISK MANAGER procedure are in TITER the results section. documented in this encounter Results Treponema Abs w Reflex to RPR and Titer (09/19/2019 8:00 AM INSURANCE RISK MANAGER) [facility] Method Time Signature Treponema Nonreactive NR^Nonrea 09/19/2019 INFECTIOUS Antibodies ctive 2:08 PM INSURANCE RISK MANAGER DISEASES DIAGNOSTIC LABORATORY Specimen Anatomical Collection Method Collection Time Receive d Time (Source) Location / / Volume Laterality Blood specimen 09/19/2019 8:00 AM 020 8:20 (specimen) INSURANCE RISK MANAGER AM INSURANCE RISK MANAGER Prudencio Baker MD LAB - BLOOD ORDERABLES Performing Organization Address City/State/ZIP Code Phon e Number INFECTIOUS DISEASES [address] [place] [address] DIAGNOSTIC LABORATORY, [facility] INFECTIOUS DISEASES [address] [place] [address], [place] [facility] documented in this encounter Visit Diagnoses Diagnosis (spontaneous vaginal delivery) - Karin granger Normal delivery Supervision of normal Supervision of other normal state Routine follow-up documented in this encounter Administered Medications Inactive Administered Medications - up to 3 most recent administrations Medication Order MAR Action Action Date Dose Rate Site acetaminophen (TYLENOL) tablet 650 Given 09/20/2019 4:27 PM INSURANCE RISK MANAGER 650 mg mg 650 mg, Oral, EVERY 4 HOURS PRN, mild pain, fever, greater than or equal to 38?? C /100.4?? F (oral) or 38.5?? C/ 101.4?? F (core)., Starting on Thu09/19/19 at 1633, Maximum acetaminophen dose from all sources = 75 mg/kg/day not to exceed 4 grams/day. Given 09/20/2019 9:10 AM INSURANCE RISK MANAGER 650 mg Given 09/20/2019 3:09 AM INSURANCE RISK MANAGER 650 mg bisacodyl (DULCOLAX) Suppository 10 mg 10 mg, Rectal, DAILY PRN, constipation, Starting on Thu09/21/19 at 0000, Hold for loose stools. carboprost (HEMABATE) injection 250 mcg 250 mcg, Intramuscular, ONCE PRN, ONLY f or uterine atony with significant bleeding POST-DELIVERY, Starting on Thu09/19/19 at 0808, For 1 dose, Notify provider IF uterine atony and clarify with provider medication pre ference. fentaNYL (SUBLIMAZE) 2 New Syringe/Cartridge 09/19/2019 1:17 PM 5 mL/ hr 5 mL/hr mcg/mL, bupivacaine INSURANCE RISK MANAGER (MARCAINE) 0.125% in NS premix for PCEA PCEA dose (mL): 5, PCEA Lockout Interval (min): 15 minutes, Hour Limit (mL): 20, Continuous Rate (Basal Rate) (mL/hr): 10, Initial Set-up verified by: Ellie Cai/Dr Hare, PCEA Dose: 5ml PCEA Lockout: 15 minutes One hour limit: 20ml Continuous Infusion: 10 mL/hour Absolutely no anticoagulants, thrombolytics or antiplatelet medications or other opioid analgesics or other sedatives without prior notification of anesthesiology. For CADD cassettes, pharmacy to send epidural tubing set., Routine hydrocortisone 2.5 % cream Rectal, 3 TIMES DAILY PRN, hemorrhoids, Starting on Thu09/19/19 at 1633, Apply to hemorrhoids. Send only if nurse requests. ibuprofen (ADVIL/MOTRIN) tablet 800 mg Given 09/21/2019 9:29 AM INSURANCE RISK MANAGER 800 mg 800 mg, Oral, EVERY 6 HOURS PRN, other, cramping, Starting on Thu09/19/19 at 1633, Start 6 hours after ketorolac is completed (if ordered). Max dose: 3200 mg/day Given 09/20/2019 8:11 PM INSURANCE RISK MANAGER 800 mg Given 09/20/2019 12:51 PM INSURANCE RISK MANAGER 800 mg lactated ringers BOLUS 1,000 mL Rate/Dose Change 09/19/2019 12:33 PM INSURANCE RISK MANAGER Intravenous, 1,000 mL, ONCE PRN, IF patient to have epidural or intrathecal narcotics and NOT pre-eclamptic, Starting on Thu09/19/19 at 0808, For 1 dose, IV bolus must be initiated 15-30 min prior to epidural or intrathecal, then IV fluids per labor orders. Nurse may discontinue this order if duplicate. lactated ringers BOLUS 1,000 mL Intravenous, 1,000 mL, ONCE PRN, post- hemorrhag e (PPH), Starting on Thu09/19/19 at 1633, For 1 dose, Rate: 500-1000 mL/hr. lactated ringers BOLUS 500 mL Rate/Dose Change 09/19/2019 2:45 PM INSURANCE RISK MANAGER Intravenous, 500 mL, ONCE PRN, per policy for intrauterine resuscitation or uterine tachysystole, Starting on Thu09/19/19 at 0808, For 1 dose lactated ringers BOLUS 500 mL Intravenous, 500 mL, ONCE PRN, IF patien t to have epidural or intrathecal narcotics AND patient is pre-eclamptic. , Starting on Thu 0 at 0808, For 1 dose, IV bolus must be initiated 15-30 min prior to epidural or intrathecal IF pre-eclamptic, then IV fluids per labor orders. Nurse may discontinue this order if duplicate. lactated ringers infusion New Bag 09/19/2019 1:20 PM INSURANCE RISK MANAGER 125 mL/hr at 125 mL/hr, Intravenous, CONTINUOUS, Starting on Thu09/19/19 at 0815, Until Thu09/21/19 at 1707 New Bag 09/19/2019 8:49 AM INSURANCE RISK MANAGER 125 mL/hr lanolin ointment Topical, EVERY 1 HOUR PRN, dry skin, sor e nipples, Starting on Thu09/19/19 at 1633, Apply to sore nipples. lidocaine 1 % 0.1-20 mL 0.1-20 mL, Subcutaneous, ONCE PRN, episi otomy/laceration repair, Starting on Thu09/19/19 at 0808, For 1 dose, Available f or provider administration after delivery. Medication Instructions - cervical ripen ing and induction medications CONTINUOUS PRN, Starting on Thu09/19/19 at 0850, Until Thu09/21/19 at 1707, Wait times between cervical ripening and zachary ction medications. IF misoprostol (CYTOTEC) Oral, delay oxytocin (PITOCIN) induction /augmentation at least 2 hours after last oral dose of misoprostol. IF misoprostol (CYTOTEC) Vag inal, delay oxytocin (PITOCIN) induction/augmentation at least 4 hours afte r last vaginal dose of misoprostol. IF dinoprostone (CERVIDIL) Vaginal Insert , delay oxytocin induction/augmentation at least 1 hour a fter removal of dinoprostone (CERVIDIL) IF oxytocin (PITOCIN) Intravenous, wait at LEAST 1 hour A FTER oxytocin (PITOCIN) infusion is stopped before administering cervical ripening medication (misoprostol (CYTOTEC), dinoprostone (CERVIDIL)). Medication Instructions: misoprostol (CYTOTEC)- Nurse to discuss ordering with provider, if needed. Ordered via OB mis oprostol (CYTOTEC) Hemorrhage PANEL CONTINUOUS PRN, Starting on Thu09/19/19 at 0808, Until Thu09/21/19 at 1707, Nurse to discuss ordering with provider, if ne eded. Ordered via OB misoprostol (CYTOTEC) Hemorrhage PANEL ([id number]) methylergonovine (METHERGINE) injection 200 mcg 200 mcg, Intramuscular, ONCE PRN, ONLY f or uterine atony with significant bleeding POST-DELIVERY, Starting on Thu09/19/19 at 0808, For 1 dose, Notify provider IF uterine atony and clarify with provider medication preference. Do NOT give IF Blood Pressure greater than 140/90, preeclampsia, or chronic hypertension. naloxone (NARCAN) injection 0.1-0.4 mg 0.1-0.4 mg, Intravenous, EVERY 2 MIN PRN , opioid reversal, Starting on Thu09/19/19 at 0808, For respiratory rate LESS than or EQUAL to 8. Partial reversal dose: 0.1 mg titrated q 2 minutes for Analgesia Si de Effects Monitoring Sedation Level of 3 (frequently drowsy, arousable, drifts to sleep during conversation).Full reversal dose: 0.4 mg bolus for Analgesia Side Effects Monitori ng Sedation Level of 4 (somnolent, minimal or no response to st imulation). For ordered IV doses 0.1-2mg give IVP. Give each 0.4mg over 15 second s in emergency situations. For non-emergent situations further dilute in 9mL of NS to facilitate t itration of response. naloxone (NARCAN) injection 0.1-0.4 mg 0.1-0.4 mg, Intravenous, EVERY 2 MIN PRN, opioid rever ismael, for respiratory rate less than or equal to 8, Starting on Thu09/19/19 at 1633, For respiratory rate LESS than or EQUAL to 8. Partial reversal dose: 0.1 mg titr ated q 2 minutes for Analgesia Side Effects Monitoring Sedation Level of 3 (frequently drowsy, arousable, drifts to sleep during conver sation).Full reversal dose: 0.4 mg bolus for Analgesia Side Effects Monitoring Se dation Level of 4 (somnolent, minimal or no response to stimulation). For ordered IV doses 0.1-2mg give IVP. Give each 0.4mg over 15 seconds in emergency situations. For non-emergent situations further dilute in 9mL of NS to facilitate titration of response. No MMR Needed - Assessment: Patient does not need MMR vaccine CONTINUOUS PRN, Starting on Thu09/19/19 at 1634, Until Thu09/21/19 at 1707, Assessment: Patient does not need MMR immunization NO Rho (D) immune globulin (RhoGam) need ed - mother Rh POSITIVE CONTINUOUS PRN, Starting on Thu09/19/19 at 1634, Until Thu09/21/19 at 1707 No Tdap Needed - Assessment: Patient ayala s not need Tdap vaccine CONTINUOUS PRN, Starting on Thu09/19/19 at 1634, Until Thu09/21/19 at 1707, Assessment: Patient does not need Tdap immunization ondansetron (ZOFRAN) injection 4 mg 4 mg, Intravenous, EVERY 6 HOURS PRN, nausea, vomiting , Administer over 2-5 Minutes, Starting on Thu09/19/19 at 0808, If nausea no t resolved in 15 minutes, notify provider before proceeding to prochlorperazine (COMPAZINE) [if ordered]. Irritant. For ordered IV doses 0.1-4 mg, give IV Push undiluted over 2-5 minutes. oxyCODONE-acetaminophen (PERCOCET) 5-325 MG per tablet 1 tablet 1 tablet, Oral, ONCE PRN, moderate to se paul pain, Starting on Thu09/19/19 at 0808, For 1 dose, Available for administration after delivery. Maximum acetaminophen dose from all sources= 75 mg/kg/day not to exceed 4 grams oxytocin (PITOCIN) 30 units in Restarted 09/19/2019 4:22 PM INSURANCE RISK MANAGER 340 mL/hr 340 mL/hr 500 mL 0.9% NaCl infusion 100-340 mL/hr, Intravenous, CONTINUOUS PRN, after delivery to treat or prevent uterine atony, Starting on Thu09/19/19 at 0808, Administer 340 mL/hr over 30 minutes for a total of 170 mL then decrease to 100 mL/hr until infusion complete (about 3.5 hours) or per provider direction. Start new bag at delivery. Discontinue or saline lock peripheral IV per nurse discretion. oxytocin (PITOCIN) 30 Rate/Dose Change 09/19/2019 1:54 8 mauricio-unit s/min 8 mL/hr units in 500 mL 0.9% PM INSURANCE RISK MANAGER NaCl infusion 1-24 mauricio-units/min (1-24 mL/hr), Intravenous, CONTINUOUS, Starting on Thu09/19/19 at 0900, Start infusion at 2 mauricio-units/min. Increase by 1-2 mauricio-units/min every 30 minutes as clinically indicated until contractions are 2-3 minutes apart, lasting 45 to 60 seconds in duration to achieve labor progress. Max rate is 24 milliunits/min. Do NOT go higher without a provider order. If oxytocin (PITOCIN) infusion is discontinued and off for less than 30 minutes, restart infusion at half of previous oxytocin (PITOCIN) rate. If oxytocin (PITOCIN) infusion has been discontinued equal to or greater than 30 minutes, begin at initial dose. IF another cervical ripening medication is ordered wait 60 minutes after oxytocin (PITOCIN) infusion is stopped before administering cervical ripening medication. Rate/Dose Change 09/19/2019 10:56 AM INSURANCE RISK MANAGER 7 mauricio-units/min 7 mL/hr Rate/Dose Change 09/19/2019 10:15 AM INSURANCE RISK MANAGER 5 mauricio-units/min 5 mL/hr oxytocin (PITOCIN) 30 Rate/Dose Change 09/19/2019 4:53 PM 100 mL/hr 100 mL/hr units in 500 mL 0.9% NaCl INSURANCE RISK MANAGER infusion 100 mL/hr, Intravenous, CONTINUOUS, Starting on Thu09/19/19 at 1645, At 100 mL/hr to follow after initial oxytocin loading dose (340 mL/hr). Continue until infusion complete (about 3.5 hours) or per provider discretion. Begin after delivery of placenta; IV to continue until patient stable. Discontinue or saline lock per nurse discretion. oxytocin (PITOCIN) 30 units in 500 mL 0. 9% NaCl infusion 340 mL/hr, Intravenous, CONTINUOUS PRN, for hemorrhage (PPH) UNTIL bleeding subsided, Starting on Thu at 1633, When bleeding subsides decrease rate to 100 mL/hr. Notify provider immediately when in fusion begun. Oxytocin is first line medication for PPH. oxytocin (PITOCIN) injection 10 Units 10 Units, Intramuscular, ONCE PRN, Only for uterine atony after placenta delivery, Starting on Thu09/19/19 at 0808, For 1 d ose, Notify provider IF uterine atony and clarify with provider medication preference oxytocin (PITOCIN) injection 10 Units 10 Units, Intramuscular, ONCE PRN, postp artum hemorrhage (PPH) IF no IV access is available, Starting on Thu09/19/19 at 1633, For 1 dose , Oxytocin is first line medication for PPH. senna-docusate (SENOKOT-S/PERICOLACE) Given 09/21/2019 9:[address] 1 tablet 8.6-50 MG per tablet 1 tablet 1 tablet, Oral, 2 TIMES DAILY, First dose on Thu09/19/19 at 2100, If no bowel movement in 24 hours, increase to 2 tablets PO. Hold for loose stools. Hold for loose stools. Given 09/20/2019 8:12 PM INSURANCE RISK MANAGER 1 tablet Given 09/20/2019 9:10 AM INSURANCE RISK MANAGER 1 tablet senna-docusate (SENOKOT-S/PERICOLACE) Given 09/19/2019 9:[address] 2 tablets 8.6-50 MG per tablet 2 tablet 2 tablet, Oral, 2 TIMES DAILY, First dose on Thu09/19/19 at 2100, Hold for loose stools. Hold for loose stools. sodium phosphate (FLEET ENEMA) 1 enema 1 enema, Rectal, DAILY PRN, constipation , Starting on Thu09/21/19 at 0000, Use if bisacodyl not effective Hold for loose stools. terbutaline (BRETHINE) injection 0.25 mg 0.25 mg, Subcutaneous, ONCE PRN, IF uterine tachysysto le or IF abnormal FHR tracing. Notify provider if either occur ., Starting on Thu09/19/19 at 0851, For 1 dose tranexamic acid (CYKLOKAPRON) infusion 1 g 1 g, Intravenous, Administer over 10 Minutes, EVERY 30 MIN PRN, Post- hemorrhage (PPH), Starting on Thu09/19/19 at 1633, For 2 doses, Provider consultation REQUIRED and MUST be admini stered as soon as the ONSET of bleeding AND within 3 hours of regardless of ca use of the PPH (atony OR laceration). IF bleeding continues, a 2nd dose may be ad ministered after 30 minutes. IF concern for DIC (Disseminated Intravascular Coagulat ion), obtain coagulation studies PRIOR to administration. Mix in 50 mL or 100 mL n ormal saline and infuse. Contraindications include: history of PE (Pulmonary Emboli ), DVT (Deep Vein Thrombosis) and current Subarachnoid hemorrhage and active DIC. documented in this encounter Active and Recently Administered Medications Times are shown in INSURANCE RISK MANAGER. Scheduled Medication Order 09/19/2019 09/20/2019 09/21/2019 fentaNYL (SUBLIMAZE) 2 mcg/mL, bupivacai ne (MARCAINE) 0.125% in NS premix for PCEA (CANCELED) 1317 (New Syringe/Cartridge - Provider: Hilaria Cervantes RN)1400 (Canceled Entry - Provider: Orders Generic Provider - Comment: Automatically canceled at discontinue of medication order)1620 (Stopped - Provider: Hilaria Cervantes RN) at 5 mL/hr, EPIDURAL, PCEA, First dose o n Thu09/19/19 at 0930, PCEA Dose: 5ml PCEA Lockout: 15 minutes One hour limit: 20ml Continuous Infusion: 10 mL/hour Absolutely no anticoagulants, thrombolytics or antiplatelet medications or other opioi d analgesics or other sedatives without prior notification of anesthesiology. For CADD cassettes, pharmacy to send epidural tubing set., Pre-procedure senna-docusate (SENOKOT-S/PERICOLACE) 8. 6-50 MG per tablet 1 tablet(Linked Group 1) 2102 (See Alternative - Provider: Trish Austin RN) 909 (Given - Provider: Beryl Gordon RN)2011 (Given - Provider: Tomasa Galvez, CHRIST) 927 (Given - Provider: Betty Joshi RN - Comment: scanner doesnt work) 1 tablet, Oral, 2 TIMES DAILY, First dos e on Thu09/19/19 at 2100, If no bowel movement in 24 hours, increase to 2 tablets PO. Hold for loose stools. Hold for loose stools. senna-docusate (SENOKOT-S/PERICOLACE) 8. 6-50 MG per tablet 2 tablet(Linked Group 1) 2102 (Given - Provider: Trish Austin RN) 909 (See Alternative - Provider: Beryl Godron RN)2011 (See Alternative - Provider: Tomasa Galvez RN) 927 (See Alternative - Provider: Betty Joshi, CHRIST) 2 tablet, Oral, 2 TIMES DAILY, First dos e on Thu09/19/19 at 2100, Hold for loose stools. Hold for loose stools. Continuous Medication Order 09/19/2019 09/20/2019 09/21/2019 lactated ringers infusion 0849 (New Bag - Provider: Alejandra Cervantes RN)1320 (New Bag - Provider: Hilaria Cervantes RN) at 125 mL/hr, Intravenous, CONTINUOUS, S tarting 09/19/19 at 0815, Until 09/21/19 at 1707 oxytocin (PITOCIN) 30 units in 500 mL 0.9% NaCl infusi on 09 (New Bag - Provider: Hilaria Cervantes RN)0915 (Canceled Entry - Provider: Hilaria Cervantes RN)0945 (Rate/Dose Change - Provider: Hilaria Cervantes RN)1015 (Rate/Dose Change - Provider: Hilaria Cervantes RN) 1-24 mauricio-units/min (1-24 mL/hr), Intra venous, at 1-24 mL/hr, CONTINUOUS, Starting 09/19/19 at 0900, Start infusion at 2 mauricio-units/min. Increase by 1-2 mauricio-units/min every 30 minutes as clinical 1056 (Rate/Dose Change - Provider: Hilaria Cervantes RN)1354 (Rate/Dose Change - Provider: Hilaria Cervantes RN)1515 (Stopped - Provider: Hilaria Cervantes RN) ly indicated until contractions are 2-3 minutes apart, lasting 45 to 60 seconds in duration to achieve labor progress. Max rate is 24 milliunits/min. Do NOT go higher without a provider order. If oxytoc in (PITOCIN) infusion is discontinued an d off for less than 30 minutes, restart infusion at half of previous oxytocin (PITOCIN) rate. If oxytocin (PITOCIN) infusion has been discontinued equal to or gre ater than 30 minutes, begin at initial d ose. IF another cervical ripening medication is ordered wait 60 minutes after oxytocin (PITOCIN) infusion is stopped before administering cervical ripening medication. oxytocin (PITOCIN) 30 units in 500 mL 0.9% NaCl infusi on 1652 (Rate/Dose Change - Provider: Hilaria Cervantes RN)1914 (Stopped - Provider: Hilaria Cervantes RN) 100 mL/hr, Intravenous, at 100 mL/hr, CO NTINUOUS, Starting Thu09/19/19 at 1645, At 100 mL/hr to follow after initial oxytocin loading dose (340 mL/hr). Continue until infusion complete (about 3.5 hours) or per provider discretion. Begin after delivery of placenta; IV to continue until patient stable. Discontinue or saline lock per nurse discretion. PRN Medication Order 09/19/2019 09/20/2019 09/21/2019 acetaminophen (TYLENOL) tablet 650 mg 2103 (Given - Pr ovider: Trish Austin, RN) 0309 (Given - Provider: Trish Austin RN)0910 (Given - Provider: Beryl Gordon, CHRIST)1627 (Given - Provider: Fely Bradley RN) 650 mg, Oral, EVERY 4 HOURS PRN, mild pa in, fever, greater than or equal to 38?? C /100.4?? F (oral) or 38.5?? C/ 101.4?? F (core)., Starting Thu09/19/19 at 1633, Maximum acetaminophen dose from all sources = 75 mg/kg/day not to exceed 4 grams/day. bisacodyl (DULCOLAX) Suppository 10 mg 10 mg, Rectal, DAILY PRN, constipation, Starting Thu09/21/19 at 0000, Hold for loose stools. carboprost (HEMABATE) injection 250 mcg 250 mcg, Intramuscular, ONCE PRN, ONLY f or uterine atony with significant bleeding POST-DELIVERY, Starting Thu09/19/19 at 0808, For 1 dose, Notify provider IF uterine atony and clarify with provider medication preference. hydrocortisone 2.5 % cream Rectal, 3 TIMES DAILY PRN, hemorrhoids, Starting Thu09/19/19 at 1633, Apply to hemorrhoids. Send only if nurse requests. ibuprofen (ADVIL/MOTRIN) tablet 800 mg 164 (Given - P rovider: Hilaria Cervantes RN)2329 (Given - Provider: Trish Austin, CHRIST) 0646 (Given - Provider: Trish Austin RN)1251 (Given - Provider: Beryl Gordon RN)2010 (Given - Provider: Tomasa Galvez RN) 0929 (Given - Provider: Betty Joshi RN - Comment: scanner doesnt work)1120 (Canceled Entry - Provider: Pamella Schafeer RN) 800 mg, Oral, EVERY 6 HOURS PRN, other, cramping, Starting 09/19/19 at 1633, Start 6 hours after ketorolac is completed (if ordered). Max dose: 3200 mg/day lactated ringers BOLUS 1,000 mL(Linked Group 2) 1233 ( Rate/Dose Change - Provider: Hilaria Cervantes RN) Intravenous, 1,000 mL, ONCE PRN, IF tammy ent to have epidural or intrathecal narcotics and NOT pre-eclamptic, Starting 09/19/19 at 0808, For 1 dose, IV bolus must be initiated 15-30 min prior to epidu ral or intrathecal, then IV fluids per l abor orders. Nurse may discontinue this order if duplicate. lactated ringers BOLUS 1,000 mL Intravenous, 1,000 mL, ONCE PRN, post-pa rtum hemorrhage (PPH), Starting 09/19/19 at 1633, For 1 dose, Rate: 500-1000 mL/hr. lactated ringers BOLUS 500 mL 1445 (Rate/Dose Change - Provider: Hilaria Cervantes RN) Intravenous, 500 mL, ONCE PRN, per polic y for intrauterine resuscitation or uterine tachysystole, Starting 09/19/19 at 0808, For 1 dose lactated ringers BOLUS 500 mL(Linked Group 2) 1233 (Se e Alternative - Provider: Hilaria Cervantes RN) Intravenous, 500 mL, ONCE PRN, IF patien t to have epidural or intrathecal narcotics AND patient is pre-eclamptic. , Starting 09/19/19 at 0808, For 1 dose, IV bolus must be initiated 15-30 min prior t o epidural or intrathecal IF pre-eclampt ic, then IV fluids per labor orders. Nurse may discontinue this order if duplicate. lanolin ointment Topical, EVERY 1 HOUR PRN, dry skin, sor e nipples, Starting 09/19/19 at 1633, Apply to sore nipples. lidocaine 1 % 0.1-20 mL 0.1-20 mL, Subcutaneous, ONCE PRN, episi otomy/laceration repair, Starting 09/19/19 at 0808, For 1 dose, Available for provider administration after delivery. Medication Instructions - cervical ripening and induction medica tions CONTINUOUS PRN, Starting Thu09/19/19 at 0850, Until Thu09/21/19 at 1707, Wait times between cervical ripening and induction medications. IF misoprostol (CYTOTEC) Oral, delay oxytocin (PITOCIN) induction /augmentation at least 2 hours after las t oral dose of misoprostol. IF misoprostol (CYTOTEC) Vaginal, delay oxytocin (PITOCIN) induction/augmentation at least 4 hours after last vaginal dose of misopros inessa. IF dinoprostone (CERVIDIL) Vaginal Insert, delay oxytocin induction/augmentation at least 1 hour after removal of dinoprostone (CERVIDIL) IF oxytocin (PITOCIN) Intravenous, wait at LEAST 1 hour AFT ER oxytocin (PITOCIN) infusion is stoppe d before administering cervical ripening medication (misoprostol (CYTOTEC), dinoprostone (CERVIDIL)). Medication Instructions: misoprostol (CY TOTEC)- Nurse to discuss ordering with provider, if needed. Ordered via OB misoprostol (CYTOTEC) Hemorrhage PANEL CONTINUOUS PRN, Starting Thu09/19/19 at 0808, Until Thu09/21/19 at 1707, Nurse to discuss ordering with provider, if needed. Ordered via OB misoprostol (CYTOTEC) Hemorrhage PANEL ([id number]) methylergonovine (METHERGINE) injection 200 mcg 200 mcg, Intramuscular, ONCE PRN, ONLY f or uterine atony with significant bleeding POST-DELIVERY, Starting Thu09/19/19 at 0808, For 1 dose, Notify provider IF uterine atony and clarify with provider med ication preference. Do NOT give IF Blood Pressure greater than 140/90, preeclampsia, or chronic hypertension. naloxone (NARCAN) injection 0.1-0.4 mg 0.1-0.4 mg, Intravenous, EVERY 2 MIN PRN , opioid reversal, Starting Thu09/19/19 at 0808, For respiratory rate LESS than or EQUAL to 8. Partial reversal dose: 0.1 mg titrated q 2 minutes for Analgesia Si de Effects Monitoring Sedation Level of 3 (frequently drowsy, arousable, drifts to sleep during conversation).Full reversal dose: 0.4 mg bolus for Analgesia Side Effects Monitoring Sedation Level of 4 ( somnolent, minimal or no response to sti mulation). For ordered IV doses 0.1-2mg give IVP. Give each 0.4mg over 15 seconds in emergency situations. For non- emergent situations further dilute in 9mL of NS to facilitate titration of response. naloxone (NARCAN) injection 0.1-0.4 mg 0.1-0.4 mg, Intravenous, EVERY 2 MIN PRN , opioid reversal, for respiratory rate less than or equal to 8, Starting Thu09/19/19 at 1633, For respiratory rate LESS than or EQUAL to 8. Partial reversal dose : 0.1 mg titrated q 2 minutes for Analge justin Side Effects Monitoring Sedation Level of 3 (frequently drowsy, arousable, drifts to sleep during conversation).Full reversal dose: 0.4 mg bolus for Analgesia Side Effects Monitoring Sedation Level of 4 (somnolent, minimal or no response to stimulation). For ordered IV doses 0.1-2mg give IVP. Give each 0.4mg over 15 seconds in emergency situations. For non-e mergent situations further dilute in 9mL of NS to facilitate titration of response. No MMR Needed - Assessment: Patient does not need MMR vaccine CONTINUOUS PRN, Starting Thu09/19/19 at 1634, Until Thu09/21/19 at 1707, Assessment: Patient does not need MMR immunization NO Rho (D) immune globulin (RhoGam) needed - mother Rh POSITIVE CONTINUOUS PRN, Starting Thu09/19/19 at 1634, Until Thu09/21/19 at 1707 No Tdap Needed - Assessment: Patient does not need Tdap vaccine CONTINUOUS PRN, Starting Thu09/19/19 at 1634, Until Thu09/21/19 at 1707, Assessment: Patient does not need Tdap immunization ondansetron (ZOFRAN) injection 4 mg 4 mg, Intravenous, EVERY 6 HOURS PRN, na usea, vomiting, Administer over 2-5 Minutes, Starting Thu09/19/19 at 0808, If nausea not resolved in 15 minutes, notify provider before proceeding to prochlorpera zine (COMPAZINE) [if ordered]. Irritant. For ordered IV doses 0.1-4 mg, give IV Push undiluted over 2-5 minutes. oxyCODONE-acetaminophen (PERCOCET) 5-325 MG per tablet 1 tablet 1 tablet, Oral, ONCE PRN, moderate to se paul pain, Starting Thu09/19/19 at 0808, For 1 dose, Available for administration after delivery. Maximum acetaminophen dose from all sources= 75 mg/kg/day not to exceed 4 grams oxytocin (PITOCIN) 30 units in 500 mL 0.9% NaCl infusi on 1622 (Restarted - Provider: Hilaria Cervantes RN) 100-340 mL/hr, Intravenous, at 100-340 m L/hr, CONTINUOUS PRN, after delivery to treat or prevent uterine atony, Starting Thu09/19/19 at 0808, For 1 dose, Administer 340 mL/hr over 30 minutes for a total of 170 mL then decrease to 100 mL/hr un til infusion complete (about 3.5 hours) or per provider direction. Start new bag at delivery. Discontinue or saline lock peripheral IV per nurse discretion. oxytocin (PITOCIN) 30 units in 500 mL 0.9% NaCl infusion 340 mL/hr, Intravenous, at 340 mL/hr, CO NTINUOUS PRN, for hemorrhage (PPH) UNTIL bleeding subsided, Starting Thu09/19/19 at 1633, When bleeding subsides decrease rate to 100 mL/hr. Notify pro vider immediately when infusion begun. O xytocin is first line medication for PPH. oxytocin (PITOCIN) injection 10 Units 10 Units, Intramuscular, ONCE PRN, Only for uterine atony after placenta delivery, Starting Thu09/19/19 at 0808, For 1 dose, Notify provider IF uterine atony and clarify with provider medication preference oxytocin (PITOCIN) injection 10 Units 10 Units, Intramuscular, ONCE PRN, postp artum hemorrhage (PPH) IF no IV access is available, Starting Thu09/19/19 at 1633, For 1 dose, Oxytocin is first line medication for PPH. sodium phosphate (FLEET ENEMA) 1 enema 1 enema, Rectal, DAILY PRN, constipation , Starting Thu09/21/19 at 0000, Use if bisacodyl not effective Hold for loose stools. terbutaline (BRETHINE) injection 0.25 mg 0.25 mg, Subcutaneous, ONCE PRN, IF uter ine tachysystole or IF abnormal FHR tracing. Notify provider if either occur., Starting Thu09/19/19 at 0851, For 1 dose tranexamic acid (CYKLOKAPRON) infusion 1 g 1 g, Intravenous, Administer over 10 Min utes, EVERY 30 MIN PRN, Starting Thu09/19/19 at 1633, For 2 doses, Post- hemorrhage (PPH), Provider consultation REQUIRED and MUST be administered as soon a s the ONSET of bleeding AND within 3 debora rs of regardless of cause of the PPH (atony OR laceration). IF bleeding continues, a 2nd dose may be administered after 30 minutes. IF concern for DIC (Diss eminated Intravascular Coagulation), obt ain coagulation studies PRIOR to administration. Mix in 50 mL or 100 mL normal saline and infuse. Contraindications include: history of PE (Pulmonary Emboli), DVT (Deep Vein Thrombosis) and current Subarachnoid hemorrhage and active DIC. Linked Groups Order Group 1: senna-docusate (SENOKOT-S/PERICOLACE) 8.6-50 MG per tablet 1 tabletJump to med 1 tablet, Oral, 2 TIMES DAILY, First dos e on Thu09/19/19 at 2100
If no bowel movement in 24 hours, increase to 2 tablets PO. Hold for loose stools. Hold for loose stools.
Or senna-docusate (SENOKOT-S/PERICOLACE) 8.6-50 MG per tablet 2 tabletJump to med 2 tablet, Oral, 2 TIMES DAILY, First dos e on Thu09/19/19 at 2100
Hold for loose stools. Hold for loose stools.
Group 2: lactated ringers BOLUS 1,000 mLJump to med Intravenous, 1,000 mL, ONCE PRN, IF tammy ent to have epidural or intrathecal narcotics and NOT pre-eclamptic, Starting Thu09/19/19 at 0808, For 1 dose
IV bolus must be initiated 15-30 min prior to epidural or intrathecal, then IV flui ds per labor orders. Nurse may discontinue this order if duplicate.
Or lactated ringers BOLUS 500 mLJump to med Intravenous, 500 mL, ONCE PRN, IF patien t to have epidural or intrathecal narcotics AND patient is pre-eclamptic. , Starting Thu09/19/19 at 0808, For 1 dose
IV bolus must be initiated 15-30 min prior to epidural or intrathecal IF pre -eclamptic, then IV fluids per labor orders. Nurse may discontinue this order if duplicate.
documented in this encounter Additional Health Concerns Assessment Noted Time PHQ-9 Depression Total Score: 3 12/07/2018 7:05 AM CDT documented as of this encounter Care Teams Rivet Tester Relationship Specialty Start Date End Date Annalisa Mark APRN ENGINEERING PROGRAMMER PCP - General Nurse Practitioner 03/22/15 [address] [place], [place] [id number] Mkuul Rivas PA-C Assigned PCP 07/03/19 11/19/19 [address] [place], [place] [id number] documented as of this encounter
--- OUTSIDE RECORDS SUMMARY | 2022-06-06 20:59 | XMS_ITS | Encounter Summary ---
:1985 Author Organization [place] Address [facility] [place] [address] Care Team Providers Name Role Phone DeedeeAnnalisa dean Madonna STANLEY CNP Primary Care Provider [phone] Mukul Rivas PA-C Unavailable [phone] Reason for Visit Reason Comments Care Encounter Details Date Type Department Care Team Description 08/19/2019 Office [facility] Jacob Carmona of Visit Clinic Deborah Hardy MD advanced maternal [address] [facility] age in [place], [place] trimester (Primary [phone] Dx) SUMMER Cabrera [phone] (Wo rk) [phone] Social History Tobacco Use Types Packs/Day Years [...] you attend shinto or Patient refused 2021 bahai services? Do you belong to any clubs [...] Sign Reading Time Taken Comments Blood Pressure 104/64 08/19/2019 11:51 AM HELP DESK INTERN Pulse - - Temperature - - Respiratory Rate - - Oxygen Saturation - - Inhaled Oxygen Concentration - - Weight 67.9 kg (149 lb 12.8 oz) 08/19/2019 11:51 AM HELP DESK INTERN Height - - Body Mass Index 26.54 07/25/2019 12:44 PM HELP DESK INTERN documented in this encounter Progress Notes Jacob Carmona MD - 08/19/2019 11:45 AM CST IUP at 36w with AMA. Seen on L&D 08/16 following a fall. No bleeding or issues. Baby active. GBS done. RTC 1 week. L&D discussed. DESK INTERN documented in this encounter Nursing Notes Kerri Roa CMA - 08/19/2019 11:45 AM CST Chief Complaint Patient presents with ??? Care 36w0d GBS today initial BP 104/64 Wt 67.9 kg (149 lb 12.8 oz) LMP 12/10/2018 BMI 26.54 kg/m?? Estimated body mass index is 26.54 kg/m?? as calculated from the following: Height as of 07/25/19: 1.6 m (5' 3). Weight as of this encounter: 67.9 kg (149 lb 12.8 oz). BP completed using cuff size regular. Kerri Roa CMA DESK INTERN documented in this encounter Plan of Treatment Not on filedocumented as of this encounter Procedures Procedure Name Priority Date/Time Associated Diagnosis Comme nts GROUP B STREP PCR Routine 08/19/2019 2:23 PM Multigravida of R esults for this HELP DESK INTERN advanced maternal age proced ure are in in third trimester the resul ts section. documented in this encounter Results Group B strep PCR (08/19/2019 2:23 PM HELP DESK INTERN) [facility] Method Time Signature Group B Strep Vaginal 08/19/2019 [place] PCR Spec Charles Rectal 12:16 PM HELP DESK INTERN [facility] Group B Strep Negative NEG^Negat 08/20/2019 [facility] liudmila 3:18 PM HELP DESK INTERN [facility] Comment: No GBS DNA detected, presumed negative f or GBS or number of bacteria may be below the limit of detection of the assa y. Assay performed on incubated broth cultu re of specimen using [facility] real-time PCR. Specimen Anatomical Collection Method Collection Time Receive d Time (Source) Location / / Volume Laterality Vaginal Rectal 08/19/2019 2:23 PM 020 2:25 HELP DESK INTERN PM HELP DESK INTERN Jacob Carmona MD LAB - MICRO GENERAL ORDERABL ES Performing Organization Address City/State/ZIP Code Phon e Number [id number] [place] [id number] documented in this encounter Visit Diagnoses Diagnosis Multigravida of advanced maternal age in third trimester - Primary documented in this encounter Additional Health Concerns Assessment Noted Time PHQ-9 Depression Total Score: 3 12/07/2018 7:05 AM CDT documented as of this encounter Care Teams Press Machine Feeder Relationship Specialty Start Date End Date Annalisa Mark APRN [employer] [place] PCP - General Nurse Practitioner 03/22/15 [address] [place] [address] Mukul Rivas PA-C Assigned PCP 07/03/19 11/19/19 [address] [place], [place] [phone] documented as of this encounter
--- OUTSIDE RECORDS SUMMARY | 2022-06-06 20:59 | XMS_ITS | Encounter Summary ---
:1985 Author Organization [place] Address [facility] [place] [address] Care Team Providers Name Role Phone DeedeeAnnalisa dean Madonna STANLEY CNP Primary Care Provider [phone] Mukul Rivas PA-C Unavailable [phone] Reason for Visit Reason Comments Care Encounter Details Date Type Department Care Team Description 08/26/2019 Office [facility] Jacob Carmona of Visit Clinic Deborah Hardy MD advanced maternal [address] [facility] age in [place], [place] trimester (Primary [phone] Dx) SUMMER Cabrera [phone] (Wo rk) [phone] Social History Tobacco Use Types Packs/Day Years [...] you attend temple or Patient refused 2021 bahai services? Do [...] Sign Reading Time Taken Comments Blood Pressure 104/60 08/26/2019 2:23 PM GRADER TENDER Pulse - - Temperature - - Respiratory Rate - - Oxygen Saturation - - Inhaled Oxygen Concentration - - Weight 68.5 kg (151 lb) 08/26/2019 2:23 PM GRADER TENDER Height - - Body Mass Index 26.75 07/25/2019 12:44 PM GRADER TENDER documented in this encounter Progress Notes Jacob Carmona MD - 08/26/2019 2:15 PM CST IUP at 37 weeks here for routine visit. GBS neg. Baby active. RTC 1 week. ER TENDER documented in this encounter Nursing Notes Kerri Roa CMA - 08/26/2019 2:15 PM CST Chief Complaint Patient presents with ??? Care 37w0d initial BP 104/60 Wt 68.5 kg (151 lb) LMP 12/10/2018 BMI 26.75 kg/m?? Estimated body mass index is 26.75 kg/m?? as calculated from the following: Height as of 07/25/19: 1.6 m (5' 3). Weight as of this encounter: 68.5 kg (151 lb). BP completed using cuff size regular. Kerri Roa CMA ER TENDER documented in this encounter Plan of Treatment Not on filedocumented as of this encounter Visit Diagnoses Diagnosis Multigravida of advanced maternal age in third trimester - Primary documented in this encounter Additional Health Concerns Assessment Noted Time PHQ-9 Depression Total Score: 3 12/07/2018 7:05 AM CDT documented as of this encounter Care Teams Subway Car Repairer Relationship Specialty Start Date End Date Annalisa Mark APRN CAMPGROUND CLEANING ATTENDANT PCP - General Nurse Practitioner 03/22/15 [address] [place] [address] Mukul Rivas PA-C Assigned PCP 07/03/19 11/19/19 [address] [place], [place] [id number] documented as of this encounter
--- OUTSIDE RECORDS SUMMARY | 2022-06-06 20:59 | XMS_ITS | Encounter Summary ---
:1985 Author Organization [facility] Address Pending sale to [facility] [place] [address] Care Team Providers Name Role Phone DeedeeAnnalisa dean Madonna STANLEY CNP Primary Care Provider [phone] Mukul Rivas PA-C Unavailable [phone] Reason for Visit Reason Comments Fall Auth/Cert Specialty Diagnoses / Procedures Referred By Contact Refer red To Contact sandwich counter attendant Diagnoses Indication for care in labor or delivery [facility] [address] [place], [place] [address] Phone: Fax: Referral ID Status Reason Start Date Expiration Date Visits Requ ested Visits Authorized [id number] 1 1 Encounter Details Date Type Department Care Team Description 08/16/2019 - Hospital Encounter [facility] Shira Beckhamen 08/17/2019 [facility]on [address] [facility] [address] [place] [phone] [phone] Social History Tobacco Use Types Packs/Day Years [...] you attend restorationist or Patient refused 2021 yazidism services? Do you belong to any clubs or No 10/17/2021 organizations such as restorationist groups, unions, fraFlybits or athletic groups, or school groups? How [...] Sign Reading Time Taken Comments Blood Pressure - - Pulse - - Temperature 36.7 ??C (98.1 ??F) 08/16/2019 7:31 PM BURNISHER Respiratory Rate 16 08/16/2019 7:31 PM BURNISHER Oxygen Saturation - - Inhaled Oxygen Concentration - - Weight - - Height - - Body Mass Index - - documented in this encounter Discharge Instructions Discharge InstructionsKat Martinez RN - 08/16/2019 11:55 PM CST Discharge Instruction for Undelivered Patients You were seen for: Labor Assessment, Assessment and Fall assessment We Consulted: Dr Chon Beckham You had (Test or Medicine): assessment, labs and labor assessment Diet: Drink 8 to 12 glasses of liquids (milk, juice, water) every day. You may eat meals and snacks. Activity: Count kicks everyday (see handout) Call your doctor or nurse technical project manager if your baby is moving less than usual. Call your provider if you notice: Swelling in your face or increased swelling in your hands or legs. Headaches that are not relieved by Tylenol (acetaminophen). Changes in your vision (blurring: seeing spots or stars.) Nausea (sick to your stomach) and vomiting (throwing up). Weight gain of 5 pounds or more per week. Heartburn that doesn't go away. Signs of bladder infection: pain when you urinate (use the toilet), need to go more often and more urgently. The bag of jung (rupture of membranes) breaks, or you notice leaking in your underwear. Bright red blood in your underwear. Abdominal (lower belly) or stomach pain. For first baby: Contractions (tightening) less than 5 minutes apart for one hour or more. Second (plus) baby: Contractions (tightening) less than 10 minutes apart and getting stronger. *If less than 34 weeks: Contractions (tightenings) more than 6 times in one hour. Increase or change in vaginal discharge (note the color and amount) Follow-up: As scheduled in the clinic ISHER AttachmentsThe following attachments cannot be sent through Care Everywhere.Kick Counts (Grenadian)documented in this encounter Medications at Time of Discharge Medication Sig Dispensed Refills Start Date End Date Calcium 600-400 MG-UNIT 0 02/15/2019 0 10/17/2021 CHEW ferrous sulfate (FEROSUL) Take 325 mg by mouth 0 06/22/2020 325 (65 Fe) MG tablet daily (with breakfast) Prenat w/o 0 02/15/2019 10/23/2020 X-ZJ-Igyysis-FA-DHA (PNV-DHA) 27-0.6-0.4-300 MG CAPS documented as of this encounter Miscellaneous Notes Plan of Care - Kat Martinez RN - 08/17/2019 12:19 AM CST Data: Patient assessed in the [facility] for fall/trauma. Cervical exam not examined. Membranes intact. Contractions occasional. Action: Presumed adequate oxygenation documented (see flow record). Discharge instructions reviewed. Patient instructed to report change in movement, vaginal leaking of fluid or bleeding, abdominal pain, or any concerns related to the to her nurse/physician. Response: Orders to discharge home per . Patient verbalized understanding of education and verbalized agreement with plan. Discharged to home at 2355. ISHER Provider Notification - Kat Martinez RN - 08/16/2019 11:46 PM BURNISHER 08/16/19 0143 Provider Notification Provider Name/Title Dr Thurman Method of Notification Phone Request Evaluate - Remote Notification Reason Status Update Dr Chon Beckham notified of lab results, occasional contractions that the patient states feels like tightenings that she has been having for 2 days. No leaking of fluid or blood. Category 1 tracing. Patient has an appointment on Thursday with Dr Carmona. Ok with discharging patient with instructions to come back if abdominal pain, vaginal bleeding, or contractions get stronger and closer together. ISHER Provider Notification - Melissa Moore RN - 08/16/2019 8:40 PM CST 08/16/192039 Provider Notification Provider Name/Title Dr. Thurman Method of Notification Phone MD updated regarding consistent minimal variability. Per MD, offer patient food and continue with IVfluid bolus and see if variability improves. ISHER Plan of Care - Melissa Moore RN - 08/16/2019 8:06 PM CST MD updated regarding contractions 3-5 minutes apart and periods of minimal variability. Orders for lab work and iv fluid bolus. ISHER Plan of Care - Melissa Moore RN - 08/16/2019 7:35 PM CST Data: Patient presented to [facility]: 08/16/2019 7:18 PM. Reason for maternal/ assessment is fall/trauma. Patient reports fall on her driveway this evening at 1830, she reports she landed on her right side and abdomen. Patient is a . record reviewed. has been uncomplicate d. Patient states she does feel cramping since the fall and her whole right side feels sore. Gestational Age 35w4d. VSS. movement present. Patient denies leaking of vaginal fluid/rupture of membranes, vaginal bleeding, nausea, vomiting, headache, visual disturbances, epigastric or URQ pain, significant edema. Support person is not present. Action: Verbal consent for EFM. Triage assessment completed. Mild contraction palpated during triageassessment. T's cateogry 1. Bill of rights reviewed. Response: Patient verbalized agreement with plan. Per Dr. Beckham plan for 4 hours of monitoring, and if patient begins quincy more frequently may extend monitoring. ISHER documented in this encounter Plan of Treatment Not on filedocumented as of this encounter Procedures Procedure Name Priority Date/Time Associated Comments Diagnosis INR STAT 08/16/2019 8:55 PM Results f or this BURNISHER procedure are i n the results section. PARTIAL THROMBOPLASTIN Routine 08/16/2019 8:55 PM Results for this TIME BURNISHER procedure are i n the results section. FIBRINOGEN ACTIVITY Routine 08/16/2019 8:55 PM Re sults for this BURNISHER procedure are i n the results section. CBC WITH PLATELETS & STAT 08/16/2019 8:15 PM R esults for this DIFFERENTIAL BURNISHER procedure are i n the results section. ABO/RH TYPE AND SCREEN STAT 08/16/2019 8:15 PM Results for this BURNISHER procedure are i n the results section. documented in this encounter Results INR (08/16/2019 8:55 PM BURNISHER) P athologist Signature INR 0.98 0.86 - 1.14 08/16/2019 [facility] 9:20 PM [facility] Specimen Anatomical Collection Method Collection Time Receive d Time (Source) Location / / Volume Laterality 08/16/2019 8:55 PM 0 8:56 BURN[facility]ER PM BURNISHER Tavia Beckham MD LAB - BLOOD ORDERABLES Performing Organization Address City/State/ZIP Code Phon e Number M [facility] [address] [address] [facility] [address] [address] [facility] [phone] Partial thromboplastin time (08/16/2019 8:55 PM BURNISHER) P athologist Signature PTT 26 22 - 37 sec 08/16/2019 [facility] 9:20 PM BURNISHER [facility] Specimen Anatomical Collection Method Collection Time Receive d Time (Source) Location / / Volume Laterality 08/16/2019 8:55 PM 0 8:56 BURNISHER PM BURNISHER Tavia Beckham MD LAB - BLOOD ORDERABLES Performing Organization Address City/State/ZIP Code Phon e Number M [facility] [address], [place] [address] [facility] [address] [place], [place] [address], [facility] [phone] (ABNORMAL) Fibrinogen activity (08/16/2019 8:55 PM BURNISHER) P athologist Signature Fibrinogen 483 (H) 200 - 420 08/16/2019 [facility] mg/dL 9:20 PM [facility] Specimen Anatomical Collection Method Collection Time Receive d Time (Source) Location / / Volume Laterality 08/16/2019 8:55 PM 0 8:56 BURNISHER PM BURNISHER Tavia Beckham MD LAB - BLOOD ORDERABLES Performing Organization Address City/[facility]/ZIP Code Phon e Number [facility] [address], [place] [address] [facility] [address] [place], [place] [address], [facility] [phone] ABO/Rh type and screen (08/16/2019 8:15 PM BURNISHER) [facility] gist Method Time Signature ABO A 08/16/2019 [facility] 9:30 PM [facility] RH(D) Pos [facility] Antibody Neg 08/16/2019 [facility] Screen 9:30 PM [facility] Test Valid [facility] 08/16/2019 [facility] Only [facility] 8:45 PM [facility] Specimen 08/19/2019 08/16/2019 [facility] Expires 8:45 PM [facility] Specimen Anatomical Collection Method Collection Time Receive d Time (Source) Location / / Volume Laterality Blood specimen 08/16/2019 8:15 PM 020 8:39 (specimen) BURNISHER PM BURNISHER Tavia Beckham MD LAB - BLOOD BANK TEST ORDER Performing Organization Address City/State/ZIP Code Phon e Number [facility] [address], [place] [address] [facility] [address] [address], [facility] [phone] (ABNORMAL) CBC with platelets differential (08/16/2019 8:15 PM [facility]) [facility] gist Method Time Signature WBC 20.1 (H) 4.0 - 08/16/2019 [facility] 11.0 8:44 PM [facility] 10e9/L [facility] RBC Count 3.80 3.8 - 5.2 08/16/2019 [facility] 10e12/L 8:44 PM [facility] Hemoglobin 12.4 11.7 - 08/16/2019 [facility] 15.7 g/dL 8:44 PM [facility] Hematocrit 37.3 35.0 - 08/16/2019 [facility] 47.0 % 8:44 PM [facility] MCV 98 78 - 100 08/16/2019 [facility] fl 8:44 PM [facility] MCH 32.6 26.5 - 08/16/2019 [facility] 33.0 pg 8:44 PM [facility] MCHC 33.2 31.5 - 08/16/2019 [facility] 36.5 g/dL 8:44 PM [facility] RDW 12.9 10.0 - 08/16/2019 [facility] 15.0 % 8:44 PM [facility] Platelet Count 212 150 - 450 08/16/2019 [facility] 10e9/L 8:44 PM [facility] Diff Method Automated 08/16/2019 [facility] Method 8:44 PM [facility] % Neutrophils 77.3 % 08/16/2019 [facility] 8:44 PM [facility] % Lymphocytes 15.8 % 08/16/2019 [facility] 8:44 PM [facility] % Monocytes 4.1 % 08/16/2019 [facility] 8:44 PM [facility] % Eosinophils 0.5 % 08/16/2019 [facility] 8:44 PM [facility] % Basophils 0.4 % 08/16/2019 [facility] 8:44 PM [facility] % Immature 1.9 % 08/16/2019 [facility] Granulocytes 8:44 PM [facility] Nucleated RBCs 0 0 /100 08/16/2019 [facility] 8:44 PM [facility] Absolute 15.5 (H) 1.6 - 8.3 08/16/2019 [facility] Neutrophil 10e9/L 8:44 PM [facility] Absolute 3.2 0.8 - 5.3 08/16/2019 [facility] Lymphocytes 10e9/L 8:44 PM [facility] Absolute 0.8 0.0 - 1.3 08/16/2019 [facility] Monocytes 10e9/L 8:44 PM [facility] Absolute 0.1 0.0 - 0.7 08/16/2019 [facility] Eosinophils 10e9/L 8:44 PM [facility] Absolute 0.1 0.0 - 0.2 08/16/2019 [facility] Basophils 10e9/L 8:44 PM [facility] Abs Immature 0.4 0 - 0.4 08/16/2019 [facility] Granulocytes 10e9/L 8:44 PM [facility] Absolute 0.0 08/16/2019 [facility] Nucleated RBC 8:44 PM [facility] Specimen Anatomical Collection Method Collection Time Receive d Time (Source) Location / / Volume Laterality Blood specimen 08/16/2019 8:15 PM 020 8:38 (specimen) BURNISHER PM BURNISHER Tavia Beckham MD LAB - BLOOD ORDERABLES Performing Organization Address City/State/ZIP Code Phon e Number M [place] [address] [phone] documented in this encounter Visit Diagnoses Diagnosis Indication for care in labor or delivery Unspecified indication for care or inter vention related to labor and delivery, unspecified as to episode of care documented in this encounter Administered Medications Inactive Administered Medications - up to 3 most recent administrations Medication Order MAR Action Action Date Dose Rate Site acetaminophen (TYLENOL) tablet 650 mg 650 mg, Oral, EVERY 4 HOURS PRN, headaches, Starting o n 08/16/19 at 1943, Maximum acetaminophen dose from all sources = 75 mg/kg /day not to exceed 4 grams/day. lactated ringers BOLUS 1,000 mL New Bag 08/16/2019 8:22 PM BURNISHER 1,000 mLs 999 mL/hr Intravenous, 1,000 mL, ONCE, On Thu08/16/19 at 2015, For 1 dose NO Rho (D) immune globulin (RhoGam) need ed - mother Rh POSITIVE CONTINUOUS PRN, Starting on Thu08/16/19 at 1943, Until Thu08/17/19 at 0219 documented in this encounter Active and Recently Administered Medications Times are shown in BURNISHER. Scheduled Medication Order 08/15/2019 08/16/2019 08/17/2019 lactated ringers BOLUS 1,000 mL (COMPLETED) 2021 (New Bag - Provider: Melissa Moore RN) Intravenous, 1,000 mL, ONCE, Thu08/16/19 at 2015, For 1 dose PRN Medication Order 08/15/2019 08/16/2019 08/17/2019 acetaminophen (TYLENOL) tablet 650 mg 650 mg, Oral, EVERY 4 HOURS PRN, headach es, Starting Thu08/16/19 at 1943, Maximum acetaminophen dose from all sources = 75 mg/kg/day not to exceed 4 grams/day. NO Rho (D) immune globulin (RhoGam) needed - mother Rh POSITIVE CONTINUOUS PRN, Starting Thu08/16/19 at 1943, Until Thu08/17/19 at 0219 documented in this encounter Additional Health Concerns Assessment Noted Time PHQ-9 Depression Total Score: 3 12/07/2018 7:05 AM CDT documented as of this encounter Care Teams Loan Servicing Representative Relationship Specialty Start Date End Date Annalisa Mark APRN GENERATOR OPERATOR PCP - General Nurse Practitioner 03/22/15 [address] [place], [place] [phone] Mukul Rivas PA-C Assigned PCP 07/03/19 11/19/19 [address] [place], [place] [phone] documented as of this encounter
--- OUTSIDE RECORDS SUMMARY | 2022-06-06 20:59 | XMS_ITS | Encounter Summary ---
:1985 Author Organization [facility] Address [address] [place] [address] Care Team Providers Name Role Phone Annalisa Marksalima STANLEY CNP Primary Care Provider [phone] Mukul Rivas PA-C Unavailable [phone] Reason for Visit Reason Comments Ear Problem Right side painful. Has had cellulitis in the past. Since yesturday. Encounter Details Date Type Department Care Team Description 07/25/2019 Office Visit [facility], Cellulitis of right ear (Primary Dx); [facility] of Serina Gilman NP Rash Malaika [address] [place] [phone] Social History Tobacco Use Types Packs/Day Years [...] or relatives? How often do you attend amish or Patient refused 2021 restorationism services? Do you belong to any clubs or No 10/17/2021 organizations such as amish groups, unions, fraternal or athletic groups, or [...] Sign Reading Time Taken Comments Blood Pressure 102/64 07/25/2019 12:44 PM NEUROSCIENCE SPECIALIST Pulse 104 07/25/2019 12:44 PM NEUROSCIENCE SPECIALIST Temperature 36.6 ??C (97.9 ??F) 07/25/2019 12:44 PM NEUROSCIENCE SPECIALIST Respiratory Rate 12 07/25/2019 12:44 PM NEUROSCIENCE SPECIALIST Oxygen Saturation 97% 07/25/2019 12:44 PM NEUROSCIENCE SPECIALIST Inhaled Oxygen Concentration - - Weight 64.9 kg (143 lb) 07/25/2019 12:44 PM NEUROSCIENCE SPECIALIST Height 160 cm (5' 3) 07/25/2019 12:44 PM NEUROSCIENCE SPECIALIST Body Mass Index 25.33 07/25/2019 12:44 PM NEUROSCIENCE SPECIALIST documented in this encounter Patient Instructions Patient InstructionsDeMukul haynes CNP - 07/25/2019 12:40 PM CST Cephalexin three times a day for 7 days Triamcinolone cream twice a day as needed Cleanse daily with soap and water Tylenol to help with pain Keep appointment with ENT. OSCIENCE SPECIALIST documented in this encounter Progress Notes Mukul Arzate CNP - 07/25/2019 12:40 PM CST Images from the original note were not included. SUBJECTIVE: Tameka Grissom is a 34 year old female presenting with a chief complaint of Chief Complaint Patient presents with ??? Ear Problem Right side painful. Has had cellulitis in the past. Since yesturday. She is an established patient of [facility]. Ear Pain Onset of symptoms was 1 day(s) ago. Course of illness is worsening. Severity moderate Current and Associated symptoms: ear pain right Treatment measures tried include None tried. Predisposing factors: does have history of cellulitis in that ear was treated recently with cephalexin. Does have follow up with ENT scheduled for recurrent ear problems Patient is currently . Review of Systems Constitutional: Negative for fever. HENT: Positive for ear pain. Negative for congestion, ear discharge and sore throat. Respiratory: Negative for cough. Gastrointestinal: Negative for diarrhea, nausea and vomiting. Neurological: Negative for dizziness, light-headedness and headaches. Past Medical History: Diagnosis Date ??? Allergic [...] for 7 days 21 capsule 0 ??? ferrous sulfate (FEROSUL) 325 (65 Fe) MG tablet Take 325 mg by mouth daily (with breakfast) ??? Prenat w/o G-MI-Aifufax-FA-DHA (PNV-DHA) 27-0.6-0.4-300 MG CAPS ??? triamcinolone (KENALOG) 0.025 % external ointment Apply topically 2 times daily 80 g 0 ??? triamcinolone (KENALOG) 0.1 % external cream APPLY TO AFFECTED AREA TWICE A DAY FOR 7 DAYS 1 Social History Tobacco Use ??? Smoking status: Never Smoker ??? Smokeless tobacco: Never Used Substance Use Topics ??? Alcohol use: Not Currently Alcohol/week: 0.0 standard drinks Comment: Occaisional OBJECTIVE BP 102/64 (BP Location: Right arm, Patient Position: Chair, Cuff Size: Adult Regular) Pulse 104 Temp 97.9 ??F (36.6 ??C) (Oral) Resp 12 Ht 1.6 m (5' 3) Wt 64.9 kg (143 lb) LMP 12/10/2018 SpO2 97% No BMI 25.33 kg/m?? Physical Exam Vitals signs and nursing note reviewed. Constitutional: Appearance: Normal appearance. She is well-developed and well-groomed. HENT: Head: Normocephalic and atraumatic. Right Ear: Ear canal and external ear normal. Left Ear: Tympanic membrane, ear canal and external ear normal. Ears: Nose: Nose normal. Mouth/Throat: Pharynx: Oropharynx is clear. Eyes: Extraocular Movements: Extraocular movements intact. Conjunctiva/sclera: Conjunctivae normal. Pupils: Pupils are equal, round, and reactive to light. Neck: Musculoskeletal: Normal range of motion and neck supple. Cardiovascular: Rate and Rhythm: Normal rate and regular rhythm. Heart sounds: Normal heart sounds. Pulmonary: Effort: Pulmonary effort is normal. Breath sounds: Normal breath sounds and air entry. Lymphadenopathy: Head: Right side of head: No submandibular or tonsillar adenopathy. Left side of head: No submandibular or tonsillar adenopathy. Cervical: No cervical adenopathy. Skin: General: Skin is warm and dry. Comments: See ENT Neurological: Mental Status: She is alert and oriented to person, place, and time. Psychiatric: Behavior: Behavior is cooperative. ASSESSMENT: ICD-10-CM 1. Cellulitis of right ear H60.11 cephALEXin (KEFLEX) 500 MG capsule 2. Rash R21 triamcinolone (KENALOG) 0.025 % external ointment Medical Decision Making/PLAN: Discussed with patient that will start her on cephalexin three times a day for 7 days. Educated thisis safe in . Will do triamcinolone cream twice a day as needed. Discussed symptomatic treatment recommendations. Follow up with ENT as scheduled. Followup: If not improving or if condition worsens, follow up with your Primary Care Provider Patient Instructions Cephalexin three times a day for 7 days Triamcinolone cream twice a day as needed Cleanse daily with soap and water Tylenol to help with pain Keep appointment with ENT. OSCIENCE SPECIALIST documented in this encounter Plan of Treatment Not on filedocumented as of this encounter Visit Diagnoses Diagnosis Cellulitis of right ear - Primary Rash Rash and other nonspecific skin eruption documented in this encounter Additional Health Concerns Assessment Noted Time PHQ-9 Depression Total Score: 3 12/07/2018 7:05 AM CDT documented as of this encounter Care Teams Distance Learning Technician Relationship Specialty Start Date End Date Annalisa Mark APRN CNP PCP - General Nurse Practitioner 03/22/15 [address] [place], [place] [phone] Mukul Rivas PA-C Assigned PCP 07/03/19 11/19/19 [address] [place], [place] [phone] documented as of this encounter
--- OUTSIDE RECORDS SUMMARY | 2022-06-06 21:00 | XMS_ITS | Encounter Summary ---
:1985 Author Organization [facility] Address [address] [place], [place] [address]. [place] [address] Care Team Providers Name Role Phone Annalisa Mark APRN, CNP Primary Care Provider [phone] Annalisa Mark APRN INDUSTRIAL TRAINER Unavailable [phone] Encounter Details Date Type Department Care Team Description 05/20/2019 Travel Social History Tobacco Use Types Packs/Day [...] you attend scientologist or Patient refused 2021 restorationism services? Do [...] as of this encounter Care Teams Production Supervisor Off Shift Relationship Specialty Start Date End Date Annalisa Mark APRN INDUSTRIAL TRAINER PCP - General Nurse Practitioner 03/22/15 [address] [place] [address] Annalisa Mark APRN INDUSTRIAL TRAINER Assigned PCP 06/06/18 07/02/19 [address] [place] [address] documented as of this encounter
--- OUTSIDE RECORDS SUMMARY | 2022-06-06 21:00 | XMS_ITS | Encounter Summary ---
:1985 Author Organization [place] Address [facility] [place] [address] Care Team Providers Name Role Phone Deedee Annalisa Peacock APRN, CNP Primary Care Provider [phone] Annalisa Mark APRN BIOFUELS PRODUCT MANAGER Unavailable [phone] Reason for Visit Reason Comments Care Encounter Details Date Type Department Care Team Description 04/21/2019 Office [facility] Jacob Carmona of Visit Clinic Deborah Hardy MD advanced maternal [address] [facility] age in [place], [place] trimester (Primary [phone] Dx) SUMMER Cabrera [phone] (Wo rk) [address] [phone] Social History Tobacco Use Types Packs/Day Years [...] or relatives? How often do you attend yarsani or Patient refused 2021 muslim services? Do you belong to any clubs or No 10/17/2021 organizations such as yarsani groups, unions, fraternal or athletic groups, or [...] Sign Reading Time Taken Comments Blood Pressure 100/68 04/21/2019 2:15 PM CDT Pulse - - Temperature - - Respiratory Rate - - Oxygen Saturation - - Inhaled Oxygen Concentration - - Weight 56.8 kg (125 lb 4.8 oz) 04/21/2019 2:15 PM CDT Height - - Body Mass Index 22.02 02/15/2019 12:55 PM CDT documented in this encounter Progress Notes Jacob Carmona MD - 04/21/2019 2:15 PM CDT IUP at 18w6d here for routine visit. AMA with normal Innatal - has MFM U/S 04/29/19. RTC 4 weeks documented in this encounter Plan of Treatment Not on filedocumented as of this encounter Visit Diagnoses Diagnosis Multigravida of advanced maternal age in second trimester - Primary documented in this encounter Additional Health Concerns Assessment Noted Time PHQ-9 Depression Total Score: 3 12/07/2018 7:05 AM CDT documented as of this encounter Care Teams Senior It Security Analyst Relationship Specialty Start Date End Date Annalisa Mark APRN BIOFUELS PRODUCT MANAGER PCP - General Nurse Practitioner 03/22/15 [address] [place] [address] Annalisa Mark APRN BIOFUELS PRODUCT MANAGER Assigned PCP 06/06/18 07/02/19 [address] [place] [address] documented as of this encounter
--- OUTSIDE RECORDS SUMMARY | 2022-06-06 21:00 | XMS_ITS | Encounter Summary ---
:1985 Author Organization [place] Address [address] [place], [place] [address]. [place] [address] Care Team Providers Name Role Phone Annalisa Mark APRN, CNP Primary Care Provider [phone] Annalisa Mark APRN MILK RUNNER Unavailable [phone] Encounter Details Date Type Department Care Team Description 04/21/2019 Travel Social History Tobacco Use Types Packs/Day [...] you attend sabianism or Patient refused 2021 episcopal services? Do you belong to any clubs [...] documented as of this encounter Care Teams Tablet Coater Relationship Specialty Start Date End Date Annalisa Mark APRN MILK RUNNER PCP - General Nurse Practitioner 03/22/15 [address] [place] [address] Annalisa Mark APRN MILK RUNNER Assigned PCP 06/06/18 07/02/19 [address] [place] [address] documented as of this encounter
--- OUTSIDE RECORDS SUMMARY | 2022-06-06 21:00 | XMS_ITS | Encounter Summary ---
:1985 Author Organization [place] Address [address] [place], [place] [address]. [place] [address] Care Team Providers Name Role Phone Annalisa Mark APRN, CNP Primary Care Provider Annalisa Mark APRN BOAT RIDE OPERATOR Unavailable [phone] Encounter Details Date Type Department Care Team Description 06/28/2019 Travel Social History Tobacco Use Types Packs/Day [...] you attend scientologist or Patient refused 2021 alevism services? Do you belong to any clubs [...] documented as of this encounter Care Teams Protein Purification Scientist Relationship Specialty Start Date End Date Annalisa Mark APRN BOAT RIDE OPERATOR PCP - General Nurse Practitioner 03/22/15 [address] [place] [address] Annalisa Mark APRN BOAT RIDE OPERATOR Assigned PCP 06/06/18 07/02/19 [address] [place] [address] documented as of this encounter
--- OUTSIDE RECORDS SUMMARY | 2022-06-06 21:00 | XMS_ITS | Encounter Summary ---
:1985 Author Organization [place] Address [facility] [place] [address] Care Team Providers Name Role Phone DeedeeAnnalisa dean Madonna STANLEY CNP Primary Care Provider [phone] Mukul Rivas PA-C Unavailable [phone] Reason for Referral Diagnostic Imaging Ultrasound (Routine) - Closed Specialty Diagnoses / Procedures Referred By Contact Refer red To Contact Diagnoses Low lying placenta, antepartum Teresa Michaud MD Procedures [facility] Comprehensive Single F/U [address] [place], [place] [address] Referral ID Status Reason Start Date Expiration Date Visits Requ ested Visits Authorized [id number] Closed 06/08/2019 06/07/2020 [address] MECHANIC Reason for Visit Diagnostic Imaging Ultrasound (Routine) - Closed Specialty Diagnoses / Procedures Referred By Contact Refer red To Contact Diagnoses Low lying placenta, antepartum Teresa Michaud MD Procedures [facility] Comprehensive Single F/U [address] [place], [place] [address] Referral ID Status Reason Start Date Expiration Date Visits Requ ested Visits Authorized [id number] Closed 06/08/2019 06/07/2020 1 1 Encounter Details Date Type Department Care Team Description 07/22/2019 Hospital Encounter [facility] Roselien Michaud MD [address] [place], [place] [address] Low lying placenta, Maternal Luis Alfredo Aguilera MD [address] [place], [place] [address] antepartum [facility] [address] [facility] [address] [place] [address] Social History Tobacco Use Types [...] or relatives? How often do you attend worship or Patient refused 2021 yarsani services? Do you belong to any clubs or No 10/17/2021 organizations such as worship groups, unions, fraternal or athletic groups, or [...] PM CDT documented as of this encounter Medications at Time of Discharge Medication Sig Dispensed Refills Start Date End Date Calcium 600-400 MG-UNIT 0 02/15/2019 0 10/17/2021 CHEW ferrous sulfate (FEROSUL) Take 325 mg by mouth 0 06/22/2020 325 (65 Fe) MG tablet daily (with breakfast) Prenat w/o 0 02/15/2019 10/23/2020 L-GS-Mbucdqp-FA-DHA (PNV-DHA) 27-0.6-0.4-300 MG CAPS triamcinolone (KENALOG) APPLY TO AFFECTED 1 02/0707/29/2019 0.1 % external cream AREA TWICE A DAY FOR 7 DAYS documented as of this encounter Plan of Treatment Not on filedocumented as of this encounter Procedures Procedure Name Priority Date/Time Associated Comments Diagnosis MFM US COMPREHENSIVE Routine 07/22/2019 2:08 PM Low lying plac enta, Results for this SINGLE F/U SCOOTER MECHANIC antepartum procedure are i n the results section. documented in this encounter Results MFM US Comprehensive Single F/U (07/22/2019 2:08 PM SCOOTER MECHANIC) Anatomical Region Laterality Modality Ultrasound Specimen (Source) Anatomical Collection Method Collection Time Re ceived Time Location / / Volume Laterality 07/22/2019 1:25 PM SCOOTER MECHANIC Impressions 07/22/2019 2:11 PM SCOOTER MECHANIC IMPRESSION Growth parameters and estimated we ight were consistent with appropriate for gestational age pattern of growth. anatomy appeared normal for gestational age. The placenta is no longer low lying. Narrative 07/22/2019 2:11 PM SCOOTER MECHANIC Comp Follow Up Pat. Name: MARCELINO DALEY Study Date: 1:25pm Pat. NO: [id number] Referring ??MD: LEONARD MARTÍNEZ Site: [facility] Commercial Lease Administrator: Zena Rogel RDMS : 1985 Age: 34 INDICATION Reevaluate Low-Lying placenta METHOD Transabdominal ultrasound examination. V iew: Sufficient [place] . Number of fetuses: 1 DATING ? Date ?Details ?Gest. age ?JUDD LMP ?12/10/2018 ? 32 w + 0 d ? 09/16/2019 Prior assessment ? 7/ ? GA: 8 w + 6 d ?31 w + 3 d ? 09/20/2019 U/S ? 07/22/2019 ? based upon AC, BPD, Femur, HC ?31 w + 4 d ? 09/19/2019 Assigned dating ?Dating performed on 04/29/2019, based on the LMP ?32 w + 0 d ? 09/16/2019 GENERAL EVALUATION Cardiac activity present. FHR 152 bpm. movements present. Presentation cephalic. Placenta posterior, no previa. Umbilical cord 3 vessel cord. Amniotic fluid MVP 5.4 cm. BIOMETRY Main Biometry: BPD ?79.8 ?mm ? 32w 0d ?Hadlock OFD ?104.6 ?mm ? 30w 6d ? Nicolaides HC ?296.0 ?mm ?32w 5d ?Hadlock Cerebellum tr ?40.5 ? mm ?34w 4d ?Nicolaides AC ?266.0 ?mm ?30w 5d ?Hadlock Femur ?58.4 ? mm ?30w 4d ?Hadlock Humerus ?52.4 ?mm ? 30w 4d ?Bisi Weight Calculation: EFW ? 1,671 ?g ? 31% ? Nathaniel EFW (lb,oz) ? 3 lb 11 ? oz EFW by ?Hadlock ([id number]) Head / Face / Neck Biometry: Product Representative ? 6.1 ? mm CM ?4.2 ? mm ANATOMY The following structures appear normal: Head / Neck ? Cranium. Head size. Head shape. Lateral ventricles. Midline falx. Cavum septi pellucidi. Cerebellum. Cisterna magna. Thalami. Face ? Lips. Profile. Nose. Heart / Thorax ?4-chamber view. RVOT view. LVOT view. 1-rryhmb-jexeghm view. ? Diaphragm. Abdomen ? Stomach. Kidneys. Bladder. Spine ?Cervical spine. Thoracic spine. Lumbar spine. Sacral spine. Gender: female. MATERNAL STRUCTURES Cervix ?Visualized ? Cervical length 43.2 mm Right Ovary ?Not examined Left Ovary ?Not examined RECOMMENDATION We discussed the findings on today's ult rasound with the patient. Further ultrasound studies as clinically indicated. Return to primary provider for continued care. Thank-you for the opportunity to partici karly in the care of this patient. If you have questions regarding today's evaluation or if we can be of further service, please contact the [facility]. anomalies may be present but not detected Procedure Note Luis Alfredo Aguilera MD - 07/22/2019Forma tting of this note might be different from the original. Comp Follow Up Pat. Name:Rolf DALEY Date:07/22 1:25pm Pat. NO: [id number] MD:AVRIL MARTÍNEZ [facility] Yu :1985Age:34 INDICATION Reevaluate Low-Lying placenta METHOD Transabdominal ultrasound examination. V iew: Sufficient [place] . Number of fetuses: 1 DATING Date Details Gest. age JUDD LMP 12/10/2018 32 w + 0 d 09/16/2019 Prior assessment 02/14/2019 GA: 8 w + 6 d 31 w + 3 d 09/20/2019 U/S 07/22/2019 based upon AC, BPD, Femur , HC 31 w + 4 d 09/19/2019 Assigned dating Dating performed on 04/29, based on the LMP 32 w + 0 d 09/16/2019 GENERAL EVALUATION Cardiac activity present. FHR 152 bpm. movements present. Presentation cephalic. Placenta posterior, no previa. Umbilical cord 3 vessel cord. Amniotic fluid MVP 5.4 cm. BIOMETRY Main Biometry: BPD 79.8 mm 32w 0d Hadlock OFD 104.6 mm 30w 6d Nicolaides HC 296.0 mm 32w 5d Hadlock Cerebellum tr 40.5 mm 34w 4d Nicolaides AC 266.0 mm 30w 5d Hadlock Femur 58.4 mm 30w 4d Hadlock Humerus 52.4 mm 30w 4d Bisi Weight Calculation: EFW 1,671 g 31% Nathaniel EFW (lb,oz) 3 lb 11 oz EFW by Hadlock ([id number]) Head / Face / Neck Biometry: Product Representative 6.1 mm CM 4.2 mm ANATOMY The following structures appear normal: Head / Neck Cranium. Head size. Head sha pe. Lateral ventricles. Midline falx. Cavum septi pellucidi. Cerebellum. Cisterna magna. Thalami. Face Lips. Profile. Nose. Heart / Thorax 4-chamber view. RVOT view . LVOT view. 4-nryscv-lavgujk view. Diaphragm. Abdomen Stomach. Kidneys. Bladder. Spine Cervical spine. Thoracic spine. Codie mbar spine. Sacral spine. Gender: female. MATERNAL STRUCTURES Cervix Visualized Cervical length 43.2 mm Right Ovary Not examined Left Ovary Not examined RECOMMENDATION We discussed the findings on today's ult rasound with the patient. Further ultrasound studies as clinically indicated. Return to primary provider for continued care. Thank-you for the opportunity to partici karly in the care of this patient. If you have questions regarding today's evaluation or if we can be of further service, please contact the [facility]. anomalies may be present but not detected IMPRESSION Growth parameters and estimated we ight were consistent with appropriate for gestational age pattern of growth. anatomy appeared normal for gestational age. The placenta is no longer low lying. Teresa [facility]aud MD [facility] documented in this encounter Visit Diagnoses Diagnosis Low lying placenta, antepartum documented in this encounter Additional Health Concerns Assessment Noted Time PHQ-9 Depression Total Score: 3 12/07/2018 7:05 AM CDT documented as of this encounter Care Teams Supply Chain Engineer Relationship Specialty Start Date End Date Annalisa Mark APRN LINE OUT WORKER PCP - General Nurse Practitioner 03/22/15 [address] [place], [place] [id number] Mukul Rivas PA-C Assigned PCP 07/03/19 11/19/19 [address] [place], [place] [id number] documented as of this encounter
--- OUTSIDE RECORDS SUMMARY | 2022-06-06 21:00 | XMS_ITS | Encounter Summary ---
:1985 Author Organization [place] Address [address] [place], [place] [address]. [place] [address] Care Team Providers Name Role Phone Annalisa Mark APRN, CNP Primary Care Provider [phone] Annalisa Mark APRN ICT SUPPORT ENGINEER Unavailable [phone] Encounter Details Date Type Department Care Team Description 04/29/2019 Travel Social History Tobacco Use Types Packs/Day [...] or relatives? How often do you attend catholic or Patient refused 2021 advent services? Do you belong to any clubs or No 10/17/2021 organizations such as catholic groups, unions, fraternal or athletic groups, [...] documented as of this encounter Care Teams Baby Attendant Relationship Specialty Start Date End Date Annalisa Mark APRN ICT SUPPORT ENGINEER PCP - General Nurse Practitioner 03/22/15 [address] [place] [address] Annalisa Mark APRN ICT SUPPORT ENGINEER Assigned PCP 06/06/18 07/02/19 [address] [place] [address] documented as of this encounter
--- OUTSIDE RECORDS SUMMARY | 2022-06-06 21:00 | XMS_ITS | Encounter Summary ---
:1985 Author Organization [place] Address [address] [place] [address]. [place] [address] Care Team Providers Name Role Phone Annalisa Mark APRN, CNP Primary Care Provider [phone] Annalisa Mark APRN GANDY DANCER Unavailable [phone] Encounter Details Date Type Department Care Team Description 06/01/2019 [facility] Dysuria Laboratory [address] [phone] Social History Tobacco Use Types Packs/Day Years [...] you attend druze or Patient refused 2021 baptist services? Do you belong to any clubs [...] Procedure Name Priority Date/Time Associated Comments Diagnosis UA WITH MICROSCOPIC Routine 06/01/2019 2:33 PM Dysuria Re sults for this STORE ADMINISTRATOR procedure are i n the results section. URINE CULTURE Routine 06/01/2019 2:32 PM Dysuria Results for this STORE ADMINISTRATOR procedure are i n the results section. documented in this encounter Results (ABNORMAL) UA with Microscopic (06/01/2019 2:33 PM STORE ADMINISTRATOR) [facility] Method Time Signature Color Urine Yellow 06/01/2019 [facility] 2:46 PM STORE ADMINISTRATOR [facility] [place] Appearance Urine Clear 06/01/2019 [facility] 2:46 PM STORE ADMINISTRATOR [facility] [place] Glucose Urine Negative NEG^Negat 06/01/2019 [facility] liudmila mg/dL 2:46 PM STORE ADMINISTRATOR [facility] [place] Bilirubin Urine Negative NEG^Negat 06/01/2019 [facility] liudmila 2:46 PM STORE ADMINISTRATOR [facility] [place] Ketones Urine Negative NEG^Negat 06/01/2019 [facility] liudmila mg/dL 2:46 PM STORE ADMINISTRATOR [facility] [place] Specific [employer] 1.015 1.003 - 06/01/2019 [facility] Urine 1.035 2:46 PM STORE ADMINISTRATOR [facility] [place] pH Urine 6.0 5.0 - 7.0 06/01/2019 [facility] pH 2:46 PM STORE ADMINISTRATOR [facility] [place] Protein Albumin Negative NEG^Negat 06/01/2019 [facility] Urine liudmila mg/dL 2:46 PM STORE ADMINISTRATOR [facility] [place] Urobilinogen 0.2 0.2 - 1.0 06/01/2019 [facility] Urine EU/dL 2:46 PM STORE ADMINISTRATOR [facility] [place] Nitrite Urine Negative NEG^Negat 06/01/2019 [facility] liudmila 2:46 PM STORE ADMINISTRATOR [facility] [place] Blood Urine Negative NEG^Negat 06/01/2019 [facility] liudmila 2:46 PM STORE ADMINISTR[facility] [place] Leukocyte Negative NEG^Negat 06/01/2019 [facility] Esterase Urine liudmila 2:46 PM STORE ADMINISTRATOR [facility] Source Midstream 06/01/2019 [facility] Urine 2:35 PM STORE ADMINISTRATOR [facility] [place] WBC Urine 0 - 5 OTO5^0 - 06/01/2019 [facility] 5 /HPF 2:46 PM STORE ADMINISTRATOR [facility] [place] RBC Urine O - 2 OTO2^O - 06/01/2019 [facility] 2 /HPF 2:46 PM STORE ADMINISTRATOR [facility] Squamous Moderate (A) FEW^Few 06/01/2019 [facility] Epithelial /LPF /LPF 2:46 PM STORE ADMINISTRATOR CLINICS Urine [place] Bacteria Urine Few (A) NEG^Negat 06/01/2019 [facility] liudmila /HPF 2:46 PM STORE ADMINISTRATOR [facility] [place] Mucous Urine Present (A) NEG^Negat 06/01/2019 [facility] liudmila /LPF 2:46 PM STORE ADMINISTRATOR [facility] Specimen (Source) Anatomical Collection Method Collection Time Re ceived Time Location / / Volume Laterality Examination of 06/01/2019 2:33 06/01/2019 2:34 midstream urine PM STORE ADMINISTRATOR PM STORE ADMINISTRATOR specimen (procedure) Jacob Carmona MD LAB - URINE ORDERABLES Performing Organization Address City/[facility]/ZIP Code Phon e Number [facility] [address] [place] [address] Urine Culture Aerobic Bacterial (06/01/2019 2:32 PM STORE ADMINISTRATOR) [facility] gist Method Time Signature Specimen Midstream INFECTIOUS Description Urine [facility] Culture Micro <10,000 colonies/mL 06/02/2019 [facility] TI[facility] mixed urogenital roberto 8:47 PM STORE ADMINISTRATOR [facility] Specimen (Source) Anatomical Collection Method Collection Time Re ceived Time Location / / Volume Laterality Examination of 06/01/2019 2:32 06/01/2019 2:33 midstream urine PM STORE ADMINISTRATOR PM STORE ADMINISTRATOR specimen (procedure) Jacob Carmona MD LAB - MICRO GENERAL ORDERABL ES Performing Organization Address City/[facility]/ZIP Code Phon e Number INFECTIOUS DISEASES [address] [place] [address] DIAGNOSTIC LABORATORY, [facility] INFECTIOUS DISEASES [address] [place] [address], [place] [facility] documented in this encounter Visit Diagnoses Diagnosis Dysuria documented in this encounter Additional Health Concerns Assessment Noted Time PHQ-9 Depression Total Score: 3 12/07/2018 7:05 AM CDT documented as of this encounter Care Teams Entry Level Automotive Technician Relationship Specialty Start Date End Date Annalisa Mark APRN GANDY DANCER PCP - General Nurse Practitioner 03/22/15 [address] [place] [address] Annalisa Mark, JADEN GANDY DANCER Assigned PCP 06/06/18 07/02/19 [address] [place] [address] documented as of this encounter
--- OUTSIDE RECORDS SUMMARY | 2022-06-06 21:00 | XMS_ITS | Encounter Summary ---
:1985 Author Organization [place] Address [facility] [place] [address] Care Team Providers Name Role Phone Deedee, Annalisa Peacock APRN, CNP Primary Care Provider [phone] DeedeeSwapnaarnulfo Peacock APRN, CNP Unavailable [phone] Reason for Referral Diagnostic Imaging Ultrasound (Routine) - Closed Specialty Diagnoses / Procedures Referred By Contact Refer red To Contact Diagnoses Low lying placenta, antepartum Teresa Michaud MD Procedures [facility] US Comprehensive Single F/U [address] [place], [place] [address] Referral ID Status Reason Start Date Expiration Date Visits Requ ested Visits Authorized [id number] Closed 06/08/2019 06/07/2020 1 1 RACT PARALEGAL Reason for Visit Reason Comments Ultrasound placenta previa Encounter Details Date Type Department Care Team Description 06/08/2019 Office Visit [facility] Luis Alfredo Aguilera MD [address] [place], [place] [address] Low lying placenta, Maternal Teresa Michaud MD [address] [place], [place] [address] antepartum (Primary Medicine Center Dx) [place] [address] [place] [address] Social History Tobacco Use Types [...] or relatives? How often do you attend hoahaoism or Patient refused 2021 christianity services? Do you belong to any clubs or No 10/17/2021 organizations such as hoahaoism groups, unions, fraternal or athletic groups, or [...] documented as of this encounter Progress Notes Teresa Michaud MD - 06/08/2019 2:00 PM CST Please see Imaging tab under Chart Review for details of today's visit. Teresa Michaud RACT PARALEGAL documented in this encounter Plan of Treatment Not on filedocumented as of this encounter Results MFM US Comprehensive Single F/U (07/22/2019 2:08 PM CONTRACT PARALEGAL) Anatomical Region Laterality Modality Ultrasound Specimen (Source) Anatomical Collection Method Collection Time Re ceived Time Location / / Volume Laterality 07/22/2019 1:25 PM CONTRACT PARALEGAL Impressions 07/22/2019 2:11 PM CONTRACT PARALEGAL IMPRESSION Growth parameters and estimated we ight were consistent with appropriate for gestational age pattern of growth. anatomy appeared normal for gestational age. The placenta is no longer low lying. Narrative 07/22/2019 2:11 PM CONTRACT PARALEGAL Comp Follow Up Pat. Name: MARCELINO DALEY Study Date: 1:25pm Pat. NO: [id number] Referring ??: LEONARD MARTÍNEZ Site: [facility] Copying Machine Repairer: Zena Rogel RDMS : 1985 Age: 34 [...] lb 11 ? oz EFW by ?Hadlock ([id number]) Head / Face / Neck Biometry: School Patrol ? 6.1 ? mm CM ?4.2 ? mm ANATOMY The following structures appear normal: Head / Neck ? Cranium. Head size. Head shape. Lateral ventricles. Midline falx. Cavum septi pellucidi. Cerebellum. Cisterna magna. Thalami. Face ? Lips. Profile. Nose. Heart / Thorax ?4-chamber view. RVOT view. LVOT view. 4-yxmtxz-ueopznm view. ? Diaphragm. Abdomen ? Stomach. Kidneys. [...] Pat. Name:Rolf DALEY Date:07/22 1:25pm Pat. NO: [id number] :AVRIL MARTÍNEZ [facility]Zena RogelJACY Tona :1985Age:34 INDICATION Reevaluate Low-Lying placenta METHOD Transabdominal [...] 3 lb 11 oz EFW by Hadlock ([id number]) Head / Face / Neck Biometry: School Patrol 6.1 mm CM 4.2 mm ANATOMY The following structures appear normal: Head / Neck Cranium. Head size. Head sha pe. Lateral ventricles. Midline falx. Cavum septi pellucidi. Cerebellum. Cisterna magna. Thalami. Face Lips. Profile. Nose. Heart / Thorax 4-chamber view. RVOT view . LVOT view. 7-tdtmqx-gbxkpsv view. Diaphragm. Abdomen Stomach. Kidneys. Bladder. Spine [...] no longer low lying. Teresa Michaud MD [facility] US ORDERABLES documented in this encounter Visit Diagnoses Diagnosis Low lying placenta, antepartum - Primary Low lying placenta, antepartum documented in this encounter Additional Health Concerns Assessment Noted Time PHQ-9 Depression Total Score: 3 12/07/2018 7:05 AM CDT documented as of this encounter Care Teams Laser Beam Trim Operator Relationship Specialty Start Date End Date Annalisa Mark APRN COMPUTER SERVICE TECHNICIAN PCP - General Nurse Practitioner 03/22/15 [address] [place], [place] [id number] Annalisa Mark APRN CNP Assigned PCP 06/06/18 07/02/19 [address] [place], [place] [id number] documented as of this encounter
--- OUTSIDE RECORDS SUMMARY | 2022-06-06 21:00 | XMS_ITS | Encounter Summary ---
:1985 Author Organization [place] Address [facility] [place] [address] Care Team Providers Name Role Phone DeedeeSwapna deanarnulfo Peacock APRN, CNP Primary Care Provider [phone] DeedeeSwapnaarnulfo Peacock APRN, CNP Unavailable [phone] Reason for Referral Diagnostic Imaging Ultrasound (Routine) - Closed Specialty Diagnoses / Procedures Referred By Contact Refer red To Contact Diagnoses related condition, antepartum Jacob Martínez, Procedures [facility] Abhishek Hamilton MD [address] [place] [address] Referral ID Status Reason Start Date Expiration Date Visits Requ ested Visits Authorized [id number] Closed 02/24/2019 02/24/2020 1 1 Reason for Visit Diagnostic Imaging Ultrasound (Routine) - Closed Specialty Diagnoses / Procedures Referred By Contact Refer red To Contact Diagnoses related condition, antepartum Kristine, Jacob Hardy, Procedures [facility] Abhishek Hamilton MD [address] [place] [address] Referral ID Status Reason Start Date Expiration Date Visits Requ ested Visits Authorized [id number] Closed 02/24/2019 02/24/2020 1 1 Encounter Details Date Type Department Care Team Description 04/29/2019 Hospital Encounter [facility] Leonard Martínez MD [address] [place], [place] [id number] related Maternal Luis Alfredo Aguilera MD [address] [place], [place] [address] condition, Medicine Center antepartum [place] [address] [facility] [address] [place] [address] Social History Tobacco Use Types [...] or relatives? How often do you attend evangelical or Patient refused 2021 holiness services? Do you belong to any clubs or No 10/17/2021 organizations such as evangelical groups, unions, fraternal or athletic groups, or [...] 600-400 MG-UNIT 0 02/15/2019 0 10/17/2021 CHEW cephALEXin (KEFLEX) 500 Take 1 capsule by 14 capsule 0 01/2906/28/2019 MG capsuleIndications: mouth 2 times daily Other acute otitis for 7 days. externa lidocaine (LMX4) 4 % Apply topically 2 30 g 0 04/05/20 19 07/15/2019 external times daily as creamIndications: needed for pain Otalgia, right Prenat w/o 0 02/15/2019 10/23/2020 X-BP-Azfalan-FA-DHA (PNV-DHA) 27-0.6-0.4-300 MG CAPS triamcinolone (KENALOG) APPLY TO AFFECTED 1 02/0707/29/2019 0.1 % external cream AREA TWICE A DAY FOR 7 DAYS documented as of this encounter Plan of Treatment Not on filedocumented as of this encounter Procedures Procedure Name Priority Date/Time Associated Comments Diagnosis MF US COMPREHENSIVE Routine 04/29/2019 2:08 PM rela georgie Results for this SINGLE CDT condition, procedure are i n antepartum the results section. documented in this encounter Results [facility] US Comprehensive Single (04/29/2019 2:08 PM CDT) Anatomical Region Laterality Modality Ultrasound Specimen (Source) Anatomical Collection Method Collection Time Re ceived Time Location / / Volume Laterality 04/29/2019 1:25 PM CDT Impressions 04/29/2019 2:18 PM CDT IMPRESSION Sonographic biometry agrees with gestati onal age predicted by assigned JUDD The anatomy was adequately visualized and appeared normal. None of the anomalies commonly detected by ultrasound were ruddy dent. No markers for aneuploidy seen. Placenta previa. Narrative 04/29/2019 2:18 PM CDT Comprehensive Pat. Name: MARCELINO DALEY Study Date: 1:25pm Pat. NO: [id number] Referring ??MD: LEONARD MARTÍNEZ Site: [facility] Aircraft Engineer: Ilene Aguilar : 1985 Age: 34 INDICATION Advanced Maternal Age, low risk NIPT METHOD Transabdominal ultrasound examination. V iew: Sufficient [place] . Number of fetuses: 1 DATING ? Date ?Details ?Gest. age ?JUDD LMP ?12/10/2018 ? 20 w + 0 d ? 09/16/2019 Prior assessment ? GA: 8 w + 6 d ?19 w + 3 d ? 09/20/2019 U/S ? 04/29/2019 ? based upon AC, BPD, Femur, HC ? 19 w + 6 d ? 09/17/2019 Assigned dating ?Dating performed on 04/29/2019, based on the LMP ?20 w + 0 d ? 09/16/2019 GENERAL EVALUATION Cardiac activity present. FHR 144 bpm. movements present. Presentation cephalic. Placenta posterior, placenta previa . Umbilical cord 3 vessel cord. Amniotic fluid MVP 4.0 cm. BIOMETRY Main Biometry: BPD ?46.4 ?mm ? 20w 0d ?Hadlock OFD ?59.3 ?mm ? 19w 2d ?Nicolaides HC ?167.6 ?mm ?19w 3d ?Hadlock Cerebellum tr ?20.5 ? mm ?19w 4d ?Nicolaides AC ?147.4 ?mm ?20w 0d ?Hadlock Femur ?31.4 ? mm ?19w 5d ?Hadlock Humerus ?29.7 ?mm ? 19w 5d ?Bisi Weight Calculation: EFW ? 317 ? g EFW (lb,oz) ? 0 lb 11 ? oz EFW by ?[facility] ([id number]) Head / Face / Neck Biometry: Php Consultant ? 5.0 ? mm CM ?3.6 ? mm Nasal bone ? 5.9 ? mm Nuchal fold ? 3.3 ? mm ANATOMY The following structures appear normal: Head / Neck ? Cranium. Head size. Head shape. Lateral ventricles. Choroid plexus. Midline falx. Cavum septi pellucidi. Cerebellum. Cisterna magna. ? Parenchyma. Thalami. Vermis. ? Neck. Nuchal fold. Face ? Lips. Profile. Nose. Maxilla. Mandible. Orbits. Lens. Heart / Thorax ?4-chamber view. RVOT view. LVOT view. Situs. Aortic arch view. Bicaval view. Ductal arch view. Superior vena cava. Inferior vena cava. 3-vessel ? view. 9-ykdtqb-bfyvrwr view. Cardiac position. Cardiac size. Cardiac rhythm. ? Right lung. Left lung. Diaphragm. Abdomen ? Abdominal wall. Cord insertion. Stomach. Kidneys. Bladder. Liver. Bowel. Genitals. Spine ?Cervical spine. Thoracic spine. Lumbar spine. Sacral spine. Extremities / Skeleton ?Rig ht arm. Right hand. Left arm. Left hand. Right leg. Right foot. Left leg. Left foot. Gender: female. MATERNAL STRUCTURES Cervix ?Visualized ? Appearance: Appears Closed ? Cervical length 49.6 mm Right Ovary ?Visualized Left Ovary ?Visualized RECOMMENDATION We discussed the findings on today's ult rasound with the patient. A placenta previa is noted on today's ul trasound. A follow-up ultrasound in 6 weeks is recommended. Return to primary provider for continued care. Thank-you for the opportunity to partici brandt in the care of this patient. If you have questions regarding today's evaluation or if we can be of further service, please contact the Maternal- Medicine Center. anomalies may be present but not detected Procedure Note Luis Alfredo Aguilera MD - 04/29/2019Forma tting of this note might be different from the original. Comprehensive Pat. Name:Rolf DALEY Date:04/29 1:25pm Pat. NO: [id number] MD:AVRIL MARTÍNEZ [facility]Lorrie Pennington RDMS :1985Age:34 INDICATION Advanced Maternal Age, low risk NIPT METHOD Transabdominal ultrasound examination. V iew: Sufficient [place] . Number of fetuses: 1 DATING Date Details Gest. age JUDD LMP 12/10/2018 20 w + 0 d 09/16/2019 Prior assessment 02/14/2019 GA: 8 w + 6 d 19 w + 3 d 09/20/2019 U/S 04/29/2019 based upon AC, BPD, Femur, HC 19 w + 6 d 09/17/2019 Assigned dating Dating performed on 04/29, based on the LMP 20 w + 0 d 09/16/2019 GENERAL EVALUATION Cardiac activity present. FHR 144 bpm. movements present. Presentation cephalic. Placenta posterior, placenta previa . Umbilical cord 3 vessel cord. Amniotic fluid MVP 4.0 cm. BIOMETRY Main Biometry: BPD 46.4 mm 20w 0d Hadlock OFD 59.3 mm 19w 2d Nicolaides HC 167.6 mm 19w 3d Hadlock Cerebellum tr 20.5 mm 19w 4d Nicolaides AC 147.4 mm 20w 0d Hadlock Femur 31.4 mm 19w 5d Hadlock Humerus 29.7 mm 19w 5d Bisi Weight Calculation: EFW 317 g EFW (lb,oz) 0 lb 11 oz EFW by Hadlock ([id number]-FL) Head / Face / Neck Biometry: Php Consultant 5.0 mm CM 3.6 mm Nasal bone 5.9 mm Nuchal fold 3.3 mm ANATOMY The following structures appear normal: Head / Neck Cranium. Head size. Head sha pe. Lateral ventricles. Choroid plexus. Midline falx. Cavum septi pellucidi. Cerebellum. Cisterna magna. Parenchyma. Thalami. Vermis. Neck. Nuchal fold. Face Lips. Profile. Nose. Maxilla. Piedad ble. Orbits. Lens. Heart / Thorax 4-chamber view. RVOT view . LVOT view. Situs. Aortic arch view. Bicaval view. Ductal arch view. Superior vena cava. Inferior vena cava. 3-vessel view. 0-wvpumi-hnysqzg view. Cardiac po sition. Cardiac size. Cardiac rhythm. Right lung. Left lung. Diaphragm. Abdomen Abdominal wall. Cord insertion. Stomach. Kidneys. Bladder. Liver. Bowel. Genitals. Spine Cervical spine. Thoracic spine. Codie mbar spine. Sacral spine. Extremities / Skeleton Right arm. Right hand. Left arm. Left hand. Right leg. Right foot. Left leg. Left foot. Gender: female. MATERNAL STRUCTURES Cervix Visualized Appearance: Appears Closed Cervical length 49.6 mm Right Ovary Visualized Left Ovary Visualized RECOMMENDATION We discussed the findings on today's ult rasound with the patient. A placenta previa is noted on today's ul trasound. A follow-up ultrasound in 6 weeks is recommended. Return to primary provider for continued care. Thank-you for the opportunity to partici karly in the care of this patient. If you have questions regarding today's evaluation or if we can be of further service, please contact the Maternal- Medicine Center. anomalies may be present but not detected IMPRESSION Sonographic biometry agrees with gestati onal age predicted by assigned JUDD The anatomy was adequately visualized and appeared normal. None of the anomalies commonly detected by ultrasound were ruddy dent. No markers for aneuploidy seen. Placenta previa. Jacob Martínez MD [facility] US ORDERABLES documented in this encounter Visit Diagnoses Diagnosis related condition, antepartum documented in this encounter Additional Health Concerns Assessment Noted Time PHQ-9 Depression Total Score: 3 12/07/2018 7:05 AM CDT documented as of this encounter Care Teams Physical Fitness Trainer Relationship Specialty Start Date End Date Annalisa Mark APRN PHARMACY SALESPERSON PCP - General Nurse Practitioner 03/22/15 [address] [place] [address] Annalisa Mark APRN PHARMACY SALESPERSON Assigned PCP 06/06/18 07/02/19 [address] [place] [address] documented as of this encounter
--- OUTSIDE RECORDS SUMMARY | 2022-06-06 21:00 | XMS_ITS | Encounter Summary ---
:1985 Author Organization [facility] Address [address] [place] [address]. [place] [address] Care Team Providers Name Role Phone Deedee, Annalisa Peacock APRN, CNP Primary Care Provider Annalisa Mark APRN FINGERPRINT TECHNICIAN Unavailable [phone] Reason for Visit Reason Comments Care Encounter Details Date Type Department Care Team Description 06/10/2019 Office [facility] Jacob Carmona of Visit [facility] MD Antony advanced maternal [place] [address] [facility] age in second [address] [place], [place] trimester (Pr papa [place] [id number] [address]) [address] [place] [address] Social History Tobacco Use Types [...] you attend presybeterian or Patient refused 2021 alevism services? Do [...] Sign Reading Time Taken Comments Blood Pressure 114/58 06/10/2019 2:36 PM INDUSTRIAL GAS FITTER Pulse - - Temperature - - Respiratory Rate - - Oxygen Saturation - - Inhaled Oxygen Concentration - - Weight 61.1 kg (134 lb 11.2 oz) 06/10/2019 2:36 PM INDUSTRIAL GAS FITTER Height - - Body Mass Index 23.67 02/15/2019 12:55 PM CDT documented in this encounter Progress Notes Jacob Carmona MD - 06/10/2019 2:45 PM CST IUP at 26w. [facility] U/S 06/08 reviewed. Previa resolved. LLP which will be followed up in 8 weeks in [facility]. Will do GCT/Hgb/TRep and Tdap next week as nurse only visit. RTC 4 weeks STRIAL GAS FITTER documented in this encounter Nursing Notes Kerri Roa CMA - 06/10/2019 2:45 PM CST Chief Complaint Patient presents with ??? Care 26w0d Will do glucose next week initial BP 114/58 Wt 61.1 kg (134 lb 11.2 oz) LMP 12/10/2018 BMI 23.67 kg/m?? Estimated body mass index is 23.67 kg/m?? as calculated from the following: Height as of 02/15/19: 1.607 m (5' 3.25). Weight as of this encounter: 61.1 kg (134 lb 11.2 oz). BP completed using cuff size regular. Kerri Roa CMA STRIAL GAS FITTER documented in this encounter Plan of Treatment Not on filedocumented as of this encounter Visit Diagnoses Diagnosis Multigravida of advanced maternal age in second trimester - Primary documented in this encounter Additional Health Concerns Assessment Noted Time PHQ-9 Depression Total Score: 3 12/07/2018 7:05 AM CDT documented as of this encounter Care Teams Parcel Post Order Clerk Relationship Specialty Start Date End Date Annalisa Mark APRN FINGERPRINT TECHNICIAN PCP - General Nurse Practitioner 03/22/15 [address] [place] [address] Annalisa Mark APRN FINGERPRINT TECHNICIAN Assigned PCP 06/06/18 07/02/19 [address] [place] [address] documented as of this encounter
--- OUTSIDE RECORDS SUMMARY | 2022-06-06 21:00 | XMS_ITS | Encounter Summary ---
:1985 Author Organization [place] Address [address] [place], [place] [address]. [place] [address] Care Team Providers Name Role Phone Annalisa Mark APRN, CNP Primary Care Provider [phone] Mukul Rivas PA-C Unavailable [phone] Encounter Details Date Type Department Care Team Description 07/15/2019 Travel Social History Tobacco Use Types Packs/Day [...] you attend sabianist or Patient refused 2021 samaritan services? Do [...] documented as of this encounter Care Teams Pickers Material Handlers Relationship Specialty Start Date End Date Annalisa Mark APRN DIRECTOR OF CORPORATE SPONSORSHIPS PCP - General Nurse Practitioner 03/22/15 [address] [place], [place] [id number] Mukul Rivas PA-C Assigned PCP 07/03/19 11/19/19 [address] [place], [place] [phone] documented as of this encounter
--- OUTSIDE RECORDS SUMMARY | 2022-06-06 21:00 | XMS_ITS | Encounter Summary ---
:1985 Author Organization [place] Address [address] [facility] [place] [address] Care Team Providers Name Role Phone DeedeeAnnalisa APRN, CNP Primary Care Provider [phone] Annalisa Mark APRN, CNP Unavailable Reason for Referral Diagnostic Imaging Ultrasound (Routine) - Closed Specialty Diagnoses / Procedures Referred By Contact Refer red To Contact Diagnoses Multigravida of advanced maternal age in second trimester Placenta previa without hemorrhage in second trimester Luis Alfredo Aguilera MD Procedures Maternal US Comprehensive Single F/U [address] [place], [place] [address] Referral ID Status Reason Start Date Expiration Date Visits Requ ested Visits Authorized [id number] Closed 04/29/2019 04/28/2020 1 1 Reason for Visit Reason Comments Ultrasound L2: AMA Encounter Details Date Type Department Care Team Description 04/29/2019 Office Visit [facility] Javier Martínez MD [address] [place] [address] Multigravida of advanced maternal age in second trimester (Primary Dx); Maternal Luis Alfredo Aguilera MD [address] [place], [place] [address] Placenta previa without hemorrhage in se cond trimester [facility] [place] [address] [facility] [address] [place] [address] Social History Tobacco Use Types [...] or relatives? How often do you attend latter day or Patient refused 2021 religion services? Do you belong to any clubs or No 10/17/2021 organizations such as latter day groups, unions, fraternal or athletic groups, or [...] documented as of this encounter Progress Notes Luis Alfredo Aguilera MD - 04/29/2019 2:00 PM CDT Please see Imaging tab under Chart Review for details of today's US at [facility]. Luis Alfredo Aguilera MD Maternal- Medicine documented in this encounter Plan of Treatment Not on filedocumented as of this encounter Results Maternal US Comprehensive Single F/U (06/08/2019 2:04 PM CENTRAL SUPPLY WORKER) Anatomical Region Laterality Modality Ultrasound Specimen (Source) Anatomical Collection Method Collection Time Re ceived Time Location / / Volume Laterality 06/08/2019 1:25 PM CENTRAL SUPPLY WORKER Impressions 06/08/2019 2:17 PM CENTRAL SUPPLY WORKER IMPRESSION 1) Intrauterine at 25 5/7 week s gestational age. 2) None of the anomalies commonly detect ed by ultrasound were evident in the anatomic survey described above. 3) Growth parameters and estimated weight were consistent with an appropriate for gestation age pattern of growth. 4) The amniotic fluid volume appeared no rmal. 5) The placenta is posterior and low lyi ngDanial Narrative 06/08/2019 2:17 PM CENTRAL SUPPLY WORKER Comp Follow Up Pat. Name: MARCELINO DALEY Study Date: 1:25pm Pat. NO: [id number] Referring ??MD: LEONARD MARTÍNEZ Site: [facility] Ops Analyst: Chiqui Melendez RDMS : 1985 Age: 34 INDICATION Placenta previa METHOD Transabdominal ultrasound examination. V iew: Sufficient [place] . Number of fetuses: 1 DATING ? Date ?Details ?Gest. age ?JUDD LMP ?12/10/2018 ? 25 w + 5 d ? 09/16/2019 Prior assessment ? 7/ ? GA: 8 w + 6 d ?25 w + 1 d ? 09/20/2019 U/S ? 06/08/2019 ? based upon AC, BPD, Femur, HC ? 2 5 w + 6 d ? 09/15/2019 Assigned dating ?Dating performed on 04/29/2019, based on the LMP ?25 w + 5 d ? 09/16/2019 GENERAL EVALUATION Cardiac activity present. FHR 130 bpm. movements present. Presentation cephalic. Placenta posterior, low lying, Leading e dge of placenta is 1.5 cm from internal os. Umbilical cord 3 vessel cord. Amniotic fluid MVP 6.6 cm. BIOMETRY Main Biometry: BPD ?64.2 ?mm ? 26w 0d ?Hadlock OFD ?85.1 ?mm ? 25w 4d ?Nicolaides HC ?237.6 ?mm ?25w 6d ?Hadlock Cerebellum tr ?29.8 ? mm ?26w 3d ?Nicolaides AC ?210.1 ?mm ?25w 4d ?Hadlock Femur ?47.7 ? mm ?26w 0d ?Hadlock Humerus ?43.5 ?mm ? 26w 0d ?Bisi Weight Calculation: EFW ? 847 ? g ? 49% ?Nathaniel EFW (lb,oz) ? 1 lb 14 ? oz EFW by ?Hadlock ([id number]-FL) Head / Face / Neck Biometry: Architectural Superintendent ? 6.5 ? mm CM ?4.6 ? mm ANATOMY The following structures appear normal: Head / Neck ? Cranium. Head size. Head shape. Lateral ventricles. Midline falx. Cavum septi pellucidi. Cerebellum. Cisterna magna. Thalami. Face ? Lips. Profile. Nose. Heart / Thorax ?4-chamber view. RVOT view. LVOT view. 5-apmkqd-masxvej view. ? Diaphragm. Abdomen ? Stomach. Kidneys. Bladder. Spine ?Cervical spine. Thoracic spine. Lumbar spine. Sacral spine. Gender: female. MATERNAL STRUCTURES Cervix ?Visualized ? Cervical length 51.4 mm Right Ovary ?Not examined Left Ovary ?Not examined RECOMMENDATION We discussed the findings on today's ult rasound with the patient. A repeat ultrasound has been scheduled h ere in 6-8 weeks to reevaluate placental location. Return to primary provider for continued care. Thank you for the opportunity to partici brandt in the care of this patient. If you have questions regarding today's evaluation or if we can be of further service, please contact the Maternal- Medicine Center. anomalies may be present but not detected Procedure Note Teresa Michaud MD - 06/08/2019Formatt ing of this note might be different from the original. Comp Follow Up Pat. Name:Rolf DALEY Date:06/08 1:25pm Pat. NO: [id number] MD:AVRIL MARTÍNEZ [facility]Chiqui Melendez RDMS :1985Age:34 INDICATION Placenta previa METHOD Transabdominal ultrasound examination. V iew: Sufficient [place] . Number of fetuses: 1 DATING Date Details Gest. age JUDD LMP 12/10/2018 25 w + 5 d 09/16/2019 Prior assessment 02/14/2019 GA: 8 w + 6 d 25 w + 1 d 09/20/2019 U/S 06/08/2019 based upon AC, BPD, Femur , HC 25 w + 6 d 09/15/2019 Assigned dating Dating performed on 04/29, based on the LMP 25 w + 5 d 09/16/2019 GENERAL EVALUATION Cardiac activity present. FHR 130 bpm. movements present. Presentation cephalic. Placenta posterior, low lying, Leading e dge of placenta is 1.5 cm from internal os. Umbilical cord 3 vessel cord. Amniotic fluid MVP 6.6 cm. BIOMETRY Main Biometry: BPD 64.2 mm 26w 0d Hadlock OFD 85.1 mm 25w 4d Nicolaides HC 237.6 mm 25w 6d Hadlock Cerebellum tr 29.8 mm 26w 3d Nicolaides AC 210.1 mm 25w 4d Hadlock Femur 47.7 mm 26w 0d Hadlock Humerus 43.5 mm 26w 0d Bisi Weight Calculation: EFW 847 g 49% Nathaniel EFW (lb,oz) 1 lb 14 oz EFW by Hadlock (HQN-[id number]-FL) Head / Face / Neck Biometry: Architectural Superintendent 6.5 mm CM 4.6 mm ANATOMY The following structures appear normal: Head / Neck Cranium. Head size. Head sha pe. Lateral ventricles. Midline falx. Cavum septi pellucidi. Cerebellum. Cisterna magna. Thalami. Face Lips. Profile. Nose. Heart / Thorax 4-chamber view. RVOT view . LVOT view. 3-eyagrd-tduhfzx view. Diaphragm. Abdomen Stomach. Kidneys. Bladder. Spine Cervical spine. Thoracic spine. Codie mbar spine. Sacral spine. Gender: female. MATERNAL STRUCTURES Cervix Visualized Cervical length 51.4 mm Right Ovary Not examined Left Ovary Not examined RECOMMENDATION We discussed the findings on today's ult rasound with the patient. A repeat ultrasound has been scheduled h ere in 6-8 weeks to reevaluate placental location. Return to primary provider for continued care. Thank you for the opportunity to partici karly in the care of this patient. If you have questions regarding today's evaluation or if we can be of further service, please contact the Maternal- Medicine Center. anomalies may be present but not detected IMPRESSION 1) Intrauterine at 25 5/7 week s gestational age. 2) None of the anomalies commonly detect ed by ultrasound were evident in the anatomic survey described above. 3) Growth parameters and estimated weight were consistent with an appropriate for gestation age pattern of growth. 4) The amniotic fluid volume appeared no rmal. 5) The placenta is posterior and low lyi ng. Luis Alfredo Aguilera MD [facility] US ORDERABLES documented in this encounter Visit Diagnoses Diagnosis Multigravida of advanced maternal age in second trimester - Primary Placenta previa without hemorrhage in se cond trimester Multigravida of advanced maternal age in second trimester Placenta previa without hemorrhage in se cond trimester documented in this encounter Additional Health Concerns Assessment Noted Time PHQ-9 Depression Total Score: 3 12/07/2018 7:05 AM CDT documented as of this encounter Care Teams Belt Splicer Relationship Specialty Start Date End Date Annalisa Mark APRN CELL RELINER PCP - General Nurse Practitioner 03/22/15 [address] [place], [place] [id number] Annalisa Mark APRN CELL RELINER Assigned PCP 06/06/18 07/02/19 [address] [place], [place] [id number] documented as of this encounter
--- OUTSIDE RECORDS SUMMARY | 2022-06-06 21:00 | XMS_ITS | Encounter Summary ---
:1985 Author Organization [place] Address [address] [place] [address]. [place] [address] Care Team Providers Name Role Phone Annalisa Mark APRN, CNP Primary Care Provider [phone] Annalisa Mark APRN PLANIMETER OPERATOR Unavailable [phone] Reason for Visit Reason Comments Allied Health Visit Glucose Encounter Details Date Type Department Care Team Description 06/15/2019 Allied Health/Nurse [facility] All ied Health Visit Visit Clinic [place] (Glucose) [address] [place] [address] Social History Tobacco Use Types [...] or relatives? How often do you attend anabaptism or Patient refused 2021 christianity services? Do you belong to any clubs or No 10/17/2021 organizations such as anabaptism groups, unions, fraternal or athletic groups, or [...] Associated Diagnosis Comme nts TREPONEMA ABS W Routine 06/15/2019 9:01 AM Supervision of Resu lts for this REFLEX TO RPR AND HYDROPONICS GROWER normal proced ure are in TITER the results section. GLUCOSE TOLERANCE Routine 06/15/2019 9:01 AM Supervision of Nevin garcia for this GEST SCREEN 1 HOUR HYDROPONICS GROWER normal proce dure are in the results section. CBC WITH PLATELETS Routine 06/15/2019 9:01 AM Supervision of Ilene tobin for this HYDROPONICS GROWER normal procedure a re in the results section. documented in this encounter Results (ABNORMAL) CBC with platelets (06/15/2019 9:01 AM HYDROPONICS GROWER) [facility] gist Method Time Signature WBC 12.6 (H) 4.0 - 11.0 06/15/2019 [facility] 10e9/L 9:19 AM [facility] RBC Count 3.56 (L) 3.8 - 5.2 06/15/2019 [facility] 10e12/L 9:19 AM [facility] Hemoglobin 11.4 (L) 11.7 - 06/15/2019 [facility] 15.7 g/dL 9:19 AM [facility] Hematocrit 34.9 (L) 35.0 - 06/15/2019 [facility] 47.0 % 9:19 AM [facility] MCV 98 78 - 100 06/15/2019 [facility] fl 9:19 AM [facility] MCH 32.0 26.5 - 06/15/2019 [facility] 33.0 pg 9:19 AM [facility] MCHC 32.7 31.5 - 06/15/2019 [facility] 36.5 g/dL 9:19 AM [facility] RDW 12.6 10.0 - 06/15/2019 [facility] 15.0 % 9:19 AM [facility] Platelet Count 181 150 - 450 06/15/2019 [facility] 10e9/L 9:19 AM [facility] Specimen Anatomical Collection Method Collection Time Receive d Time (Source) Location / / Volume Laterality Blood specimen 06/15/2019 9:01 AM 019 9:06 (specimen) [facility]DROP[facility] AM [facility] Jacob Carmona MD LAB - BLOOD ORDERABLES Performing Organization Address City/State/ZIP Code Phon e Number [facility] [address] [place], [place] [address] [address] Treponema Abs w Reflex to RPR and Titer (06/15/2019 9:01 AM HYDROP[facility]) Patholo gist Method Time Signature Treponema Nonreactive NR^Nonrea 06/16/2019 INFECTIOUS Antibodies ctive 12:06 PM [facility] Specimen Anatomical Collection Method Collection Time Receive d Time (Source) Location / / Volume Laterality Blood specimen 06/15/2019 9:01 AM 019 9:06 (specimen) HYDROPONICS [facility] AM [facility] Jacob Carmona MD LAB - BLOOD ORDERABLES Performing Organization Address City/[facility]/ZIP Code Phon e Number INFECTIOUS DISEASES [address] [place] [address] DIAGNOSTIC LABORATORY, [facility] INFECTIOUS DISEASES [address] [place] [address], A DIAGNOSTIC LABORATORY Glucose tolerance, gest screen, 1 hour (06/15/2019 9:01 AM HYDROP[facility]) P athologist Signature Glu Gest Screen 104 60 - 129 06/16/2019 [facility] 1hr 50g mg/dL 11:07 AM [facility] Specimen Anatomical Collection Method Collection Time Receive d Time (Source) Location / / Volume Laterality Blood specimen 06/15/2019 9:01 AM 019 9:06 (specimen) HYDROPONICS [facility] AM [facility]OPON[facility] Jacob Carmona MD LAB - BLOOD ORDERABLES Performing Organization Address City/State/ZIP Code Phon e Number [facility] [address] [phone] [facility] [address] [address], [facility] [phone] documented in this encounter Visit Diagnoses Diagnosis Supervision of normal - Primar y Supervision of other normal documented in this encounter Additional Health Concerns Assessment Noted Time PHQ-9 Depression Total Score: 3 12/07/2018 7:05 AM CDT documented as of this encounter Care Teams Powder Carrier Relationship Specialty Start Date End Date Deedee, Annalisa Madonna, STAGE SETTING PAINTER APPRENTICE PLANIMETER OPERATOR PCP - General Nurse Practitioner 03/22/15 [address] [place], [place] [id number] Annalisa Mark APRN PLANIMETER OPERATOR Assigned PCP 06/06/18 07/02/19 [address] [place], [place] [id number] documented as of this encounter
--- OUTSIDE RECORDS SUMMARY | 2022-06-06 21:00 | XMS_ITS | Encounter Summary ---
:1985 Author Organization [facility] Address [address] [place], [place] [address]e. [place] [address] Care Team Providers Name Role Phone Annalisa Mark APRN, CNP Primary Care Provider [phone] Annalisa Mark APRN GARAGE DOOR OPENER INSTALLER Unavailable [phone] Encounter Details Date Type Department Care Team Description 06/01/2019 Travel Social History Tobacco Use Types Packs/Day [...] you attend evangelical or Patient refused 2021 rastafarian services? Do [...] documented as of this encounter Care Teams Registration Officer Relationship Specialty Start Date End Date Annalisa Mark APRN GARAGE DOOR OPENER INSTALLER PCP - General Nurse Practitioner 03/22/15 [address] [place] [address] Annalisa Mark APRN GARAGE DOOR OPENER INSTALLER Assigned PCP 06/06/18 07/02/19 [address] [place] [address] documented as of this encounter
--- OUTSIDE RECORDS SUMMARY | 2022-06-06 21:00 | XMS_ITS | Encounter Summary ---
:1985 Author Organization [facility] Address [address] [place], [place] [address]. [place] [address] Care Team Providers Name Role Phone Annalisa Mark APRN, CNP Primary Care Provider [phone] Mukul Rivas PA-C Unavailable Encounter Details Date Type Department Care Team Description 07/22/2019 Travel Social History Tobacco Use Types Packs/Day [...] you attend voodoo or Patient refused 2021 jain services? Do you belong to any clubs [...] documented as of this encounter Care Teams Agriculture Professor Relationship Specialty Start Date End Date Annalisa Mark APRN CONVEYOR MONITOR PCP - General Nurse Practitioner 03/22/15 [address] [place], [place] [id number] Mukul Rivas PA-C Assigned PCP 07/03/19 11/19/19 [address] [place], [place] [id number] documented as of this encounter
--- OUTSIDE RECORDS SUMMARY | 2022-06-06 21:00 | XMS_ITS | Encounter Summary ---
:1985 Author Organization [place] [facility] Address [address] [place], [place] [address]. [place] [address] Care Team Providers Name Role Phone Annalisa Mark APRN, CNP Primary Care Provider [phone] Annalisa Mark APRN CHILD CARE TEACHER Unavailable [phone] Encounter Details Date Type Department Care Team Description 06/10/2019 Travel Social History Tobacco Use Types Packs/Day [...] place to sleep or slept in a fci (including now)? Education Answer Date Recorded What [...] documented as of this encounter Care Teams Tree Inspector Relationship Specialty Start Date End Date Annalisa Mark APRN CHILD CARE TEACHER PCP - General Nurse Practitioner 03/22/15 [address] [place] [address] Annalisa aMrk APRN CHILD CARE TEACHER Assigned PCP 06/06/18 07/02/19 [address] [place] [address] documented as of this encounter
--- OUTSIDE RECORDS SUMMARY | 2022-06-06 21:00 | XMS_ITS | Encounter Summary ---
:1985 Author Organization [place] Address [address] [place] [address] Care Team Providers Name Role Phone DeedeeAnnalisa dean Madonna STANLEY CNP Primary Care Provider [phone] Mukul Rivas PA-C Unavailable [phone] Reason for Visit Reason Comments Care c/o Lt buttock pain ?'s scia sade. Encounter Details Date Type Department Care Team Description 07/15/2019 Office [facility] Jacob Carmona of Visit Clinic Deborah Hardy MD advanced maternal [address] [facility] age in [place], [place] trimester (Primary [phone] Dx) [address] [phone] (Wo rk) [id number] [phone] Social History Tobacco Use Types Packs/Day Years [...] you attend moravian or Patient refused 2021 orthodox services? Do you belong to any [...] Sign Reading Time Taken Comments Blood Pressure 96/56 07/15/2019 2:26 PM ANALYTICAL TECH Pulse - - Temperature - - Respiratory Rate - - Oxygen Saturation - - Inhaled Oxygen Concentration - - Weight 63.8 kg (140 lb 11.2 oz) 07/15/2019 2:26 PM ANALYTICAL TECH Height - - Body Mass Index 24.92 06/28/2019 2:15 PM ANALYTICAL TECH documented in this encounter Progress Notes Jacob Carmona MD - 07/15/2019 2:15 PM CST IUP at 31w0d here for routine visit. Left sided sciatica. Baby active. RTC 2 weeks. Has MFM scan next week to follow up [facility]. YTICAL TECH documented in this encounter Nursing Notes Kerri Roa CMA - 07/15/2019 2:15 PM CST Chief Complaint Patient presents with ??? Care c/o Lt buttock pain ?'s sciatica. 31w0d initial BP 96/56 Wt 63.8 kg (140 lb 11.2 oz) LMP 12/10/2018 BMI 24.92 kg/m?? Estimated body mass index is 24.92 kg/m?? as calculated from the following: Height as of 06/28/19: 1.6 m (5' 3). Weight as of this encounter: 63.8 kg (140 lb 11.2 oz). BP completed using cuff size regular. Kerri Roa CMA YTICAL TECH documented in this encounter Plan of Treatment Not on filedocumented as of this encounter Visit Diagnoses Diagnosis Multigravida of advanced maternal age in third trimester - Primary documented in this encounter Additional Health Concerns Assessment Noted Time PHQ-9 Depression Total Score: 3 12/07/2018 7:05 AM CDT documented as of this encounter Care Teams Bucket Chucker Relationship Specialty Start Date End Date Annalisa Mark APRN HERB GROWER PCP - General Nurse Practitioner 03/22/15 [address] [place], [place] [phone] Mukul Rivas PA-C Assigned PCP 07/03/19 11/19/19 [address] [place], [place] [phone] documented as of this encounter
--- OUTSIDE RECORDS SUMMARY | 2022-06-06 21:00 | XMS_ITS | Encounter Summary ---
:1985 Author Organization [facility] Address [facility] [place] [address] Care Team Providers Name Role Phone Deedee Annalisa Peacock APRN, CNP Primary Care Provider [phone] Annalisa Mark APRN DIRECTOR FINANCIAL PLANNING Unavailable [phone] Reason for Visit Reason Onset Date Comments Care Flu Shot Imm/Inj 05/20/2019 Flu Shot Encounter Details Date Type Department Care Team Description 05/20/2019 Office [facility] Jacob Carmona of advanced maternal age in second trimester (Primary Dx); Visit Clinic Deborah Hardy MD Need for prophylactic vaccination and in oculation against influenza [address] [address] [address] [place], [place] [address] [address] [address] [phone] (Wo rk) [address] [phone] Social History Tobacco Use Types Packs/Day Years [...] you attend taoist or Patient refused 2021 hinduism services? Do you belong to any clubs [...] Sign Reading Time Taken Comments Blood Pressure 102/52 05/20/2019 2:17 PM CDT Pulse - - Temperature - - Respiratory Rate - - Oxygen Saturation - - Inhaled Oxygen Concentration - - Weight 60.3 kg (133 lb) 05/20/2019 2:17 PM CDT Height - - Body Mass Index 23.37 02/15/2019 12:55 PM CDT documented in this encounter Progress Notes Jacob Carmona MD - 05/20/2019 2:15 PM CDT IUP at 23w AMA with normal innatal, NT scan and L2 U/S. Previa seen on 20 week MFM scan. No bleeding. On pelvic rest. Has F/U scan 06/08/19. RTC 4 weeks or prn. Flu shot today. documented in this encounter Nursing Notes Kerri Roa CMA - 05/20/2019 2:15 PM CDT Chief Complaint Patient presents with ??? Care ??? Flu Shot 23w0d Has concerns : grant back sleeping Initial BP 102/52 Wt 60.3 kg (133 lb) LMP 12/10/2018 BMI 23.37 kg/m?? Estimated body mass index is 23.37 kg/m?? as calculated from the following: Height as of 02/15/19: 1.607 m (5' 3.25). Weight as of this encounter: 60.3 kg (133 lb). BP completed using cuff size: regular Questioned patient about current smoking habits. Pt. has never smoked. The following HM Due: Vaccinations: flu shot Kerri Roa CMA documented in this encounter Plan of Treatment Not on filedocumented as of this encounter Visit Diagnoses Diagnosis Multigravida of advanced maternal age in second trimester - Primary Need for prophylactic vaccination and in oculation against influenza documented in this encounter Additional Health Concerns Assessment Noted Time PHQ-9 Depression Total Score: 3 12/07/2018 7:05 AM CDT documented as of this encounter Care Teams Framing Mechanic Relationship Specialty Start Date End Date Annalisa Mark APRN DIRECTOR FINANCIAL PLANNING PCP - General Nurse Practitioner 03/22/15 [address] [place], [place] [phone] Annalisa Mark APRN DIRECTOR FINANCIAL PLANNING Assigned PCP 06/06/18 07/02/19 [address] [place] [address] documented as of this encounter
--- OUTSIDE RECORDS SUMMARY | 2022-06-06 21:00 | XMS_ITS | Encounter Summary ---
:1985 Author Organization [facility] Address [address] [place], [place] [address]. [place] [address] Care Team Providers Name Role Phone Annalisa Mark APRN, CNP Primary Care Provider [phone] Annalisa Mark APRN MACHINE LEAD BURNER Unavailable [phone] Encounter Details Date Type Department Care Team Description 06/08/2019 Travel Social History Tobacco Use Types Packs/Day [...] or relatives? How often do you attend faith or Patient refused 2021 hinduism services? Do you belong to any clubs or No 10/17/2021 organizations such as faith groups, unions, fraternal or athletic groups, or [...] documented as of this encounter Care Teams Mixed Livestock Farmer Relationship Specialty Start Date End Date Annalisa Mark APRN MACHINE LEAD BURNER PCP - General Nurse Practitioner 03/22/15 [address] [place] [address] Annalisa Mark APRN MACHINE LEAD BURNER Assigned PCP 06/06/18 07/02/19 [address] [place] [address] documented as of this encounter
--- OUTSIDE RECORDS SUMMARY | 2022-06-06 21:00 | XMS_ITS | Encounter Summary ---
:1985 Author Organization [facility] Address [address] [place], [place] [address]. [place] [address] Care Team Providers Name Role Phone Annalisa Mark APRN, CNP Primary Care Provider [phone] Annalisa Mark APRN MANAGING EDITOR Unavailable [phone] Encounter Details Date Type Department Care Team Description 06/15/2019 Travel Social History Tobacco Use Types Packs/Day [...] or relatives? How often do you attend jew or Patient refused 2021 sabianist services? Do you belong to any clubs or No 10/17/2021 organizations such as jew groups, unions, fraternal or athletic groups, or [...] documented as of this encounter Care Teams Flight Test Shop Mechanic Relationship Specialty Start Date End Date Annalisa Mark APRN MANAGING EDITOR PCP - General Nurse Practitioner 03/22/15 [address] [place] [address] Annalisa Mark APRN MANAGING EDITOR Assigned PCP 06/06/18 07/02/19 [address] [place] [address] documented as of this encounter
--- OUTSIDE RECORDS SUMMARY | 2022-06-06 21:00 | XMS_ITS | Encounter Summary ---
:1985 Author Organization [place] Address [facility] [place] [address] Care Team Providers Name Role Phone DeedeeAnnalisa dean Madonna STANLEY CNP Primary Care Provider [phone] Mukul Rivas PA-C Unavailable Reason for Visit Reason Comments [facility]ound [facility] Encounter Details Date Type Department Care Team Description 07/22/2019 Office Visit [facility] Cornell Michaud MD [address] [place], [place] [address] Low lying placenta, Maternal Luis Alfredo Aguilera MD [address] [place], [place] [address] antepartum (Primary Medicine Center Dx) [place] [address] [facility] [address] [place] [address] Social History Tobacco Use Types [...] you attend orthodox or Patient refused 2021 episcopalian services? Do you belong to any clubs [...] Progress Notes Luis Alfredo Aguilera MD - 07/22/2019 2:00 PM CST Please see Imaging tab under Chart Review for details of today's US at the [facility]. Luis Alfredo Aguilera MD Maternal- Medicine UNT DEVELOPMENT REPRESENTATIVE documented in this encounter Plan of Treatment Not on filedocumented as of this encounter Visit Diagnoses Diagnosis Low lying placenta, antepartum - Primary documented in this encounter Additional Health Concerns Assessment Noted Time PHQ-9 Depression Total Score: 3 12/07/2018 7:05 AM CDT documented as of this encounter Care Teams Child Support Agent Relationship Specialty Start Date End Date Annalisa Mark APRN HOP GROWER PCP - General Nurse Practitioner 03/22/15 [address] [place], [place] [phone] Mukul Rivas PA-C Assigned PCP 07/03/19 11/19/19 [address] [place] [address] documented as of this encounter
--- OUTSIDE RECORDS SUMMARY | 2022-06-06 21:00 | XMS_ITS | Encounter Summary ---
:1985 Author Organization [facility] Address [address] [place], [place] [address]. [place] [address] Care Team Providers Name Role Phone Annalisa Mark APRN, CNP Primary Care Provider [phone] Annalisa Mark APRN LAMINATING MACHINE FEEDER Unavailable [phone] Encounter Details Date Type Department Care Team Description 04/05/2019 Travel Social History Tobacco Use Types Packs/Day [...] or relatives? How often do you attend islam or Patient refused 2021 religion services? Do you belong to any clubs or No 10/17/2021 organizations such as islam groups, unions, fraternal or athletic groups, or [...] documented as of this encounter Care Teams Right Of Way Manager Relationship Specialty Start Date End Date Annalisa Mark APRN LAMINATING MACHINE FEEDER PCP - General Nurse Practitioner 03/22/15 [address] [place] [address] Annalisa Mark APRN LAMINATING MACHINE FEEDER Assigned PCP 06/06/18 07/02/19 [address] [place] [address] documented as of this encounter
--- OUTSIDE RECORDS SUMMARY | 2022-06-06 21:00 | XMS_ITS | Encounter Summary ---
:1985 Author Organization [place] Address [facility] [place] [address] Care Team Providers Name Role Phone Annalisa Mark APRN, CNP Primary Care Provider [phone] Annalisa Mark APRN, CNP Unavailable [phone] Reason for Referral Diagnostic Imaging Ultrasound (Routine) - Closed Specialty Diagnoses / Procedures Referred By Contact Refer red To Contact Diagnoses Multigravida of advanced maternal age in second trimester Placenta previa without hemorrhage in second trimester Luis Alfredo Aguilera MD Procedures Maternal US Comprehensive Single F/U [address] [place] [address] 4 Referral ID Status Reason Start Date Expiration Date Visits Requ ested Visits Authorized [id number] Closed 04/29/2019 04/28/2020 1 1 CTOR TRUST Reason for Visit Diagnostic Imaging Ultrasound (Routine) - Closed Specialty Diagnoses / Procedures Referred By Contact Refer red To Contact Diagnoses Multigravida of advanced maternal age in second trimester Placenta previa without hemorrhage in second trimester Luis Alfredo Aguilera MD Procedures Maternal US Comprehensive Single F/U [address] [place], [place] [address] 4 Referral ID Status Reason Start Date Expiration Date Visits Requ ested Visits Authorized [id number] Closed 04/29/2019 04/28/2020 1 1 Encounter Details Date Type Department Care Team Description 06/08/2019 Hospital [facility] Maury Aguilera MD [address] [place] [address] Multigravida of advanced maternal age in second trimester; Maternal Teresa Michaud MD [address] [place] [address] Placenta previa without hemorrhage in se cond [facility] [address] [place] [address] Social History Tobacco Use Types [...] you attend faith or Patient refused 2021 alevism services? Do [...] Otalgia, right Prenat w/o 0 02/15/2019 10/23/2020 B-MD-Qquzpek-FA-DHA (PNV-DHA) 27-0.6-0.4-300 MG CAPS triamcinolone (KENALOG) APPLY TO AFFECTED 1 02/0707/29/2019 0.1 % external cream AREA TWICE A DAY FOR 7 DAYS documented as of this encounter Plan of Treatment Not on filedocumented as of this encounter Procedures Procedure Name Priority Date/Time Associated Diagnosis Comme [facility] US COMPREHENSIVE Routine 06/08/2019 2:04 Multigravida of R esults for this SINGLE F/U PM DIRECTOR TRUST advanced maternal procedure are in age in second the results trimester section. Placenta previa without hemorrhage in second trimester documented in this encounter Results Maternal US Comprehensive Single F/U (06/08/2019 2:04 PM DIRECTOR TRUST) Anatomical Region Laterality Modality Ultrasound Specimen (Source) Anatomical Collection Method Collection Time Re ceived Time Location / / Volume Laterality 06/08/2019 1:25 PM DIRECTOR TRUST Impressions 06/08/2019 2:17 PM DIRECTOR TRUST IMPRESSION 1) Intrauterine at 25 5/7 week s gestational age. 2) None of the anomalies commonly detect ed by ultrasound were evident in the anatomic survey described above. 3) Growth parameters and estimated weight were consistent with an appropriate for gestation age pattern of growth. 4) The amniotic fluid volume appeared no rmal. 5) The placenta is posterior and low lyi ng. Narrative 06/08/2019 2:17 PM DIRECTOR TRUST Comp Follow Up Pat. Name: MARCELINO DALEY Study Date: 1:25pm Pat. NO: [id number] Referring ??MD: LEONARD MARTÍNEZ Site: [facility] Director Stage: Chiqui Melendez RDMS : 1985 Age: 34 INDICATION Placenta previa METHOD Transabdominal ultrasound examination. V iew: Sufficient [place] . Number of fetuses: 1 DATING ? Date ?Details ?Gest. age ?JUDD LMP ?12/10/2018 ? 25 w + 5 d ? 09/16/2019 Prior assessment ? GA: [...] Biometry: BPD ?64.2 ?mm ? 26w 0d ?Aries OFNova ?85.1 ?mm ? 25w 4d ?Nicolaides ?237.6 ?mm ?25w 6d ?Hadlock Cerebellum tr ?29.8 ? mm ?26w 3d ?Nicolaides AC ?210.1 ?mm ?25w 4d ?Hadlock Femur ?47.7 ? mm ?26w 0d ?Hadlock Humerus ?43.5 ?mm ? 26w 0d ?Bisi Weight Calculation: EFW ? 847 ? g ? 49% ?Nathaniel EFW (lb,oz) ? 1 lb 14 ? oz EFW by ?Hadlock (GIU-BV-CP-FL) Head / Face / Neck Biometry: Staff Radiation Therapist ? 6.5 ? mm CM ?4.6 ? mm ANATOMY The following structures appear normal: Head / Neck ? Cranium. Head size. Head shape. Lateral ventricles. Midline falx. Cavum septi pellucidi. Cerebellum. Cisterna magna. Thalami. Face ? Lips. Profile. Nose. Heart / Thorax ?4-chamber view. RVOT view. LVOT view. 2-pvknvu-zzmwyvz view. ? Diaphragm. Abdomen ? Stomach. Kidneys. [...] Pat. Name:Rolf DALEY Date:06/08 1:25pm Pat. NO: [id number] MD:AVRIL MARTÍNEZ [facility]Chiqu[facility] RDMS :1985Age:34 INDICATION Placenta previa METHOD [...] Bisi Weight Calculation: EFW 847 g 49% Nahtaniel EFW (lb,oz) 1 lb 14 oz EFW by Hadlock (OOC-PM-PI-FL) Head / Face / Neck Biometry: Staff Radiation Therapist 6.5 mm CM 4.6 mm ANATOMY The following structures appear normal: Head / Neck Cranium. Head size. Head sha pe. Lateral ventricles. Midline falx. Cavum septi pellucidi. Cerebellum. Cisterna magna. Thalami. Face Lips. Profile. Nose. Heart / Thorax 4-chamber view. RVOT view . LVOT view. 8-mqovzq-ftmzgbg view. Diaphragm. Abdomen Stomach. Kidneys. Bladder. Spine Cervical spine. Thoracic spine. Codie mbar spine. Sacral spine. Gender: female. MATERNAL STRUCTURES Cervix Visualized Cervical length 51.4 mm Right Ovary Not examined Left Ovary Not examined RECOMMENDATION We discussed the findings on today's ulalejandro rasound with the patient. A repeat ultrasound [...] low lyi ng. Luis Alfredo Aguilera MD [facility] US ORDERABLES documented in this encounter Visit Diagnoses Diagnosis Multigravida of advanced maternal age in second trimester Placenta previa without hemorrhage in se cond trimester documented in this encounter Additional Health Concerns Assessment Noted Time PHQ-9 Depression Total Score: 3 12/07/2018 7:05 AM CDT documented as of this encounter Care Teams Kitchen Utility Associate Relationship Specialty Start Date End Date Annalisa Mark APRN PERFORATOR OPERATOR PCP - General Nurse Practitioner 03/22/15 [address] [place], [place] [id number] Annalisa Mark APRN PERFORATOR OPERATOR Assigned PCP 06/06/18 07/02/19 [address] [place], [place] [id number] documented as of this encounter
--- OUTSIDE RECORDS SUMMARY | 2022-06-06 21:00 | XMS_ITS | Encounter Summary ---
:1985 Author Organization [place] Address [facility] [address] Care Team Providers Name Role Phone Annalisa Mark APRN, CNP Primary Care Provider [phone] Annalisa Mark APRN LINE TECHNICIAN Unavailable [phone] Reason for Visit Reason Comments Derm Problem hx of cellulitis Encounter Details Date Type Department Care Team Description 04/05/[address] [facility] Rose Proctor tis of face (Primary Dx); Clinic [place] EDEMARCUS, right [address] [address] [place], [place] [phone] Social History Tobacco Use Types Packs/Day [...] you attend jew or Patient refused 2021 christianity services? Do [...] Sign Reading Time Taken Comments Blood Pressure 99/58 04/05/2019 2:32 PM CDT Pulse 83 04/05/2019 2:32 PM CDT Temperature 36.8 ??C (98.2 ??F) 04/05/2019 2:32 PM CDT Respiratory Rate - - Oxygen Saturation 100% 04/05/2019 2:32 PM CDT Inhaled Oxygen Concentration - - Weight 55.4 kg (122 lb 3.2 oz) 04/05/2019 2:32 PM CDT Height - - Body Mass Index 21.48 02/15/2019 12:55 PM CDT documented in this encounter Patient Instructions Patient InstructionsSaimabbRose mukherjee PA-C - 04/05/2019 2:20 PM CDT Start Keflex for early cellulitis. Use topical triamcinolone twice daily. Lidocaine as needed for pain. documented in this encounter Progress Notes Rose Proctor PA-C - 04/05/2019 2:20 PM CDT Subjective Tameka Grissom is a 34 year old female who presents to clinic today for the following health issues: HPI Rash Onset: Two months- Worse in the past 2 days ?? Description: Location: Right ear Character: raised, painful Itching (Pruritis): YES ?? Progression of Symptoms: worsening ?? Accompanying Signs & Symptoms: Fever: no Body aches or joint pain: no Sore throat symptoms: no Recent cold symptoms: no ?? History: Previous similar rash: YES ?? Precipitating factors: Exposure to similar rash: no New exposures: None Recent travel: no ?? Alleviating factors: none Therapies Tried and outcome: Has used topical steroid Patient treated for left otitis externa with Cipro then treated for oral Cipro in November. She then developed an eye infection for which she was seen in clinic and then by [facility]. She has been seen by ENT as well as the ER due to the ear pain, dermatitis and cellulitis. In the ER was was instructed to use bacitracin twice daily and topical lidocaine for pain. ENT started patient on Keflex and triamcinolone topically. She has used the triamcinolone occasionally but continues to have the flaky skin. The increased painand mild swelling of the tragus has occurred in the past 2 days, which concerns patient for possibleinfection again. She denies any drainage from the ear. Patient Active Problem List Diagnosis ??? Mild major depression (H) ??? CARDIOVASCULAR SCREENING; LDL GOAL LESS THAN 160 ??? H/O LEEP ??? History of OCD (obsessive compulsive disorder) ??? Generalized anxiety disorder Current Outpatient Medications Medication ??? Calcium 600-400 MG-UNIT CHEW ??? Prenat w/o Q-TF-Skzlyek-FA-DHA (PNV-DHA) 27-0.6-0.4-300 MG CAPS ??? triamcinolone (KENALOG) 0.1 % external cream No current facility-administered medications for this visit. Allergies Allergen Reactions ??? No Known Drug Allergies Reviewed and updated as needed this visit by Provider Tobacco Allergies Meds Problems Med Hx Review of Systems GENERAL: No fevers HEENT: As noted in HPI Objective BP 99/58 (BP Location: Right arm, Patient Position: Chair, Cuff Size: Adult Regular) Pulse 83 Temp 98.2 ??F (36.8 ??C) (Oral) Wt 55.4 kg (122 lb 3.2 oz) LMP 12/10/2018 SpO2 100% BMI 21.48 kg/m?? Body mass index is 21.48 kg/m??. Physical Exam GENERAL: No acute distress HEENT: Normocephalic, PERRL, Canals patent, bilateral TM's non-erythematous and non-bulging. Dry, cracking skin near the entrance of the canals bilaterally. Tragus on the right is mildly erythematous and swollen. NECK: No cervical or supraclavicular lymphadenopathy. NEURO: Alert and non-focal Assessment & Plan 1. Cellulitis of face Patient has the start of possible cellulitis in the right ear over the internal tragus. She was treated with Keflex as noted below. Patient was provided topical lidocaine cream to help with pain. I recommended she continue the triamcinolone topically for the dermatitis of the bilateral ears. Follow-upwith ENT as discussed. - cephALEXin (KEFLEX) 500 MG capsule; Take 1 capsule (500 mg) by mouth 3 times daily for 7 days Dispense: 21 capsule; Refill: 0 2. Otalgia, right As noted above. - lidocaine (LMX4) 4 % external cream; Apply topically 2 times daily as needed for pain Dispense: 30g; Refill: 0 Patient Instructions Start Keflex for early cellulitis. Use topical triamcinolone twice daily. Lidocaine as needed for pain. Return in about 1 week (around 04/12/2019) for with ENT. Rose Proctor PA-C [facility] documented in this encounter Plan of Treatment Not on filedocumented as of this encounter Visit Diagnoses Diagnosis Cellulitis of face - Primary Cellulitis and abscess of face Otalgia, right documented in this encounter Additional Health Concerns Assessment Noted Time PHQ-9 Depression Total Score: 3 12/07/2018 7:05 AM CDT documented as of this encounter Care Teams Research Hydrologist Relationship Specialty Start Date End Date Annalisa Mark APRN LINE TECHNICIAN PCP - General Nurse Practitioner 03/22/15 [address] [place] [address] Annalisa Mark APRN LINE TECHNICIAN Assigned PCP 06/06/18 07/02/19 [address] [place] [address] documented as of this encounter
--- OUTSIDE RECORDS SUMMARY | 2022-06-06 21:00 | XMS_ITS | Encounter Summary ---
:1985 Author Organization [place] Address [facility] [place] [address] Care Team Providers Name Role Phone Annalisa Mark APRN, CNP Primary Care Provider [phone] Annalisa Mark APRN OFFICE ADMIN Unavailable [phone] Reason for Visit Reason Comments Consult possible cellulitis Encounter Details Date Type Department Care Team Description 06/28/2019 Office Visit [facility] Mukul Rivas Cellulit is of both [facility] [place] DEMARCUS [facility] [address] [facility] [id number] [place] [id number] Social History Tobacco Use Types Packs/Day Years [...] you attend yazdanism or Patient refused 2021 protestant services? Do [...] Sign Reading Time Taken Comments Blood Pressure 110/70 06/28/2019 2:15 PM FOUNDRY METALLURGIST Pulse 105 06/28/2019 2:15 PM FOUNDRY METALLURGIST Temperature 36.7 ??C (98.1 ??F) 06/28/2019 2:15 PM FOUNDRY METALLURGIST Respiratory Rate 18 06/28/2019 2:15 PM FOUNDRY METALLURGIST Oxygen Saturation 98% 06/28/2019 2:15 PM FOUNDRY METALLURGIST Inhaled Oxygen Concentration - - Weight 62.6 kg (137 lb 14.4 oz) 06/28/2019 2:15 PM FOUNDRY METALLURGIST Height 160 cm (5' 3) 06/28/2019 2:15 PM FOUNDRY METALLURGIST Body Mass Index 24.43 06/28/2019 2:15 PM FOUNDRY METALLURGIST documented in this encounter Patient Instructions Patient InstructionsMukul Rivas PA-C - 06/28/2019 2:20 PM FOUNDRY METALLURGIST Patient Education Discharge Instructions for Cellulitis You have been diagnosed with cellulitis. This is an infection in the deepest layer of the skin. In some cases, the infection also affects the muscle. Cellulitis is caused by bacteria. The bacteria can??enter the body through broken skin. This can happen with a cut, scratch, animal bite, or an insect bite that has been scratched. You may have been treated in the hospital with antibiotics and fluids. You will likely be given a prescription for antibiotics to take at home. This sheet will help you takecare of yourself at home. Home care When you are home: ?? Take the prescribed antibiotic medicine you are given as directed until it is gone. Take it even if you feel better. It treats the infection and stops it from returning. Not taking all the medicine can make future infections hard to treat. ?? Keep the infected area clean. ?? When possible, raise the infected area above the level of your heart. This helps keep swelling down. ?? Talk with your healthcare provider if you are in pain. Ask what kind of swif-ybn-pqeozws medicineyou can take for pain. ?? Apply clean bandages as advised. ?? Take your temperature once a day for a week. ?? Wash your hands often to prevent spreading the infection. In the future, wash your hands before and after you touch cuts, scratches, or bandages. This will help prevent infection.?? When to call your healthcare provider Call your healthcare provider immediately if you have any of the following: ?? Difficulty or pain when moving the joints above or below the infected area ?? Discharge or pus draining from the area ?? Fever??of??100.4??F (38??C) or higher, or as directed by your healthcare provider ?? Pain that gets worse in or around the infected? Redness that gets worse in or around the infected area,??particularly if the area of redness expands to a wider area ?? Shaking chills ?? Swelling of the infected area ?? Vomiting Date Last Reviewed: 02/25/2016 ?? [id number] [employer]. [address] [place] [address]. All rights reserved. This information is not intended as a substitute for professional medical care. Always follow your healthcare professional's instructions. DRY METALLURGIST documented in this encounter Progress Notes Mukul Rivas PA-C - 06/28/2019 2:20 PM CST Subjective Tameka Grissom is a 34 year old female who presents to clinic today for the following health issues: HPI Concern - Possible cellulitis Onset: 2 days ?? Description: Ear irritating ?? Intensity: mild, moderate ?? Progression of Symptoms: same ?? Accompanying Signs & Symptoms: Pain in both ears ?? Previous history of similar problem: no ?? Precipitating factors: Worsened by: none ?? Alleviating factors: Improved by: none Therapies Tried and outcome: none Patient Active Problem List Diagnosis ??? Mild major depression (H) ??? CARDIOVASCULAR SCREENING; LDL GOAL LESS THAN 160 ??? H/O LEEP ??? History of OCD (obsessive compulsive disorder) ??? Generalized anxiety disorder Past Surgical History: Procedure Laterality Date ??? [...] Take 1 capsule (500 mg) by mouth 2 times daily 14 capsule 0 ??? Calcium 600-400 MG-UNIT CHEW ??? lidocaine (LMX4) 4 % external cream Apply topically 2 times daily as needed for pain 30 g 0 ??? Prenat w/o J-VL-Xhyjcgo-FA-DHA (PNV-DHA) 27-0.6-0.4-300 MG CAPS ??? triamcinolone (KENALOG) 0.1 % external cream APPLY TO AFFECTED AREA TWICE A DAY FOR 7 DAYS 1 Allergies Allergen Reactions ??? No Known Drug Allergies Recent Labs Lab Test 12/08/18 0805 06/07/18 0738 06/04/18 1550 04/21/17 2213 05/28/12 1051 A1C -- 5.2 -- -- -- -- LDL 105* -- -- -- -- 95 HDL 73 -- -- -- -- 86 TRIG 54 -- -- -- -- 86 ALT 29 -- 27 32 < > -- CR 0.78 -- 0.84 0.79 < > -- GFRESTIMATED >90 -- 77 84 < > -- GFRESTBLACK >90 -- >90 >90 < > -- POTASSIUM 4.4 -- 3.9 3.8 < > -- TSH 0.83 -- 1.85 -- -- -- < > = values in this interval not displayed. BP Readings from Last 3 Encounters: 06/28/19 110/70 06/10/19 114/58 05/20/19 102/52 Wt Readings from Last 3 Encounters: 06/28/19 62.6 kg (137 lb 14.4 oz) 06/10/19 61.1 kg (134 lb 11.2 oz) 05/20/19 60.3 kg (133 lb) Reviewed and updated as needed this visit by Provider Review of Systems ROS COMP: Constitutional, HEENT, cardiovascular, pulmonary, gi and gu systems are negative, except as otherwise noted. Objective BP 110/70 (BP Location: Right arm, Patient Position: Chair, Cuff Size: Adult Regular) Pulse 105 Temp 98.1 ??F (36.7 ??C) (Oral) Resp 18 Ht 1.6 m (5' 3) Wt 62.6 kg (137 lb 14.4 oz) LMP 12/10/2018 SpO2 98% BMI 24.43 kg/m?? Body mass index is 24.43 kg/m??. Physical Exam GENERAL: healthy, alert and no distress HENT: normal cephalic/atraumatic and both ears: slight honey crusted lesions noted on outer externalcanal. No abscess. No mass. PSYCH: mentation appears normal, affect normal/bright Diagnostic Test Results: none Assessment & Plan (H60.13) Cellulitis of both ears Comment: mild noted on ear. Continue home bacitracin and sparing kenalog. If no improvement in 3 days, follow up with her ENT. Plan: cephALEXin (KEFLEX) 500 MG capsule -Medication use and side effects discussed with the patient. Patient is in complete understanding and agreement with plan. Return in about 1 year (around 06/28/2020) for Physical Exam. Mukul Rivas PA-C [facility] DRY METALLURGIST documented in this encounter Plan of Treatment Not on filedocumented as of this encounter Visit Diagnoses Diagnosis Cellulitis of both ears documented in this encounter Additional Health Concerns Assessment Noted Time PHQ-9 Depression Total Score: 3 12/07/2018 7:05 AM CDT documented as of this encounter Care Teams It Intern Relationship Specialty Start Date End Date Annalisa Mark APRN OFFICE ADMIN PCP - General Nurse Practitioner 03/22/15 [address] [place] [address] Annalisa Mark APRN OFFICE ADMIN Assigned PCP 06/06/18 07/02/19 [address] [place] [address] documented as of this encounter
--- OUTSIDE RECORDS SUMMARY | 2022-06-06 21:01 | XMS_ITS | Encounter Summary ---
:1985 Author Organization [place] Address [facility] [place] [address] Care Team Providers Name Role Phone DeedeeSwapna deanarnulfo Peacock APRN, CNP Primary Care Provider [phone] DeedeeSwapnaarnulfo Peacock APRN, CNP Unavailable [phone] Reason for Visit Reason Comments Genetic Counseling advanced maternal age and fa johnny history of cystic fibrosis (Routine) - Closed Specialty Diagnoses / Procedures Referred By Contact Refer red To Contact Diagnoses related condition, antepartum Jacob Carmona MD [address] [place] [address] Referral ID Status Reason Start Date Expiration Date Visits Requ ested Visits Authorized [id number] Closed 02/24/2019 02/24/2020 1 1 Encounter Details Date Type Department Care Team Description 03/11/2019 Office Visit [facility] Javier Carmona MD [address] [place], [place] [id number] Supervision of elderly multigravida in f irst trimester (Primary Dx); [facility], Joya Valdes related condition, antepartum [facility] [place] [address] [place] [id number] Social History Tobacco Use Types Packs/Day Years [...] you attend yarsani or Patient refused 2021 baptist services? Do [...] documented as of this encounter Progress Notes MARLY MARQUEZ - 03/11/2019 11:00 AM CDT [facility] [place] Genetic Counseling Consult Patient: Tameka Grissom Date of : 1985 Date of Service: 03/11/19 Tameka Grissom was seen at [facility] [place] for genetic consultation to discuss the options for screening and testing for chromosome abnormalities. The indication for genetic counseling is advanced maternal age and family history of a son with cystic fibrosis. Impression/Plan: 1. Tameka had a noninvasive screen (Innatal) earlier in which was within normal limits. Given the accuracy of this test, the risk for trisomy 13, 18, 21, and sex chromosome aneuploidy is very low. Today Tameka had an NT ultrasound. Please see ultrasound report for details. 2. Maternal serum AFP (single marker screen) is recommended after 15 weeks to screen for open neuraltube defects. A quad screen should not be performed. 3. An 18-20 week comprehensive ultrasound is standard of care for all women 35 or older at delivery. History: /Parity: Age at Delivery: 34 year old JUDD: 09/16/2019, by Last Menstrual Period Gestational Age: 13w0d ??? No significant complications or exposures were reported in the current . ??? Tameka???s history is significant for: o SAB at 6 weeks o Term in October 2016, complicated by PPROM; child has cystic fibrosis Medical History: Tameka???s reported medical history is not expected to impact management or risks to development. Family History: A three-generation pedigree was obtained, and is scanned under the ???Media?? tab. The following significant findings were reported by Tameka: As noted above, Tameka's son has a diagnosis of cystic fibrosis. Genetic testing revealed that he has the delta F508 and R117HC variants. Cystic fibrosis (CF) is a genetic condition that mainly affects the lungs and pancreas. Individuals with CF have thicker mucus than normal, leading to various symptoms including persistent cough, repeat chest infections, and difficulty absorbing food. CF is inherited in an autosomal recessive pattern and is associated with the CFTR gene. We reviewed that having achild with CF means Tameka and her are both carriers for the condition and there is a 25% chance for the current to also be affected with CF. Diagnostic testing via CVS or amniocentesis was offered, but Tameka declines. She would like to have her daughter tested at . She was encouraged to talk to her OB about this plan. [facility] genetic counselors are available to help coordinate testing if needed. Tameka's reports that one of his maternal aunts, the aunt's daughter, and the daughter's two children all have congenital hearing loss. We reviewed that hearing loss is relatively common in the human population in that profound congenital hearing loss is estimated to occur in about 1 in 1000 births. Approximately half of cases are thought to be due to environmental factors (acoustic trauma, ototoxic drug exposure, and bacterial or viral infections such as rubella or cytomegalovirus) and half due to genetic causes. The majority (70%) of cases of congenital deafness associated with genetic factors are classified as non-syndromic (the deafness is not associated with other clinical findings that define a recognized syndrome). In the remaining 30%, one of more than 400 forms of syndromic deafness can be diagnosed because of other associated clinical findings. Its does not appear that the deafness in this family is syndromic. It also appears that the hearing loss in this family is inherited in an autosomal dominant pattern. Tameka's has not had any hearing loss issues and neither have his mother or sisters. Therefore, it seems unlikely that this family history has an impact on risks to the current . Otherwise, the reported family history is negative for multiple miscarriages, stillbirths, defects, intellectual disability, known genetic conditions, and consanguinity. Carrier Screening: The patient reports that she and the father of the have ancestry: ?? Cystic fibrosis is an autosomal recessive genetic condition that occurs with increased frequency in individuals of ancestry and carrier screening for this condition is available. In addition, screening in the [facility] includes cystic fibrosis. ?? Expanded carrier screening for mutations in a large panel of genes associated with autosomal recessive conditions including cystic fibrosis, spinal muscular atrophy, and others, is now available. ?? Carrier screening was beyond the scope of our discussion today. Risk Assessment for Chromosome Conditions: We explained that the risk for chromosome abnormalities increases with maternal age. We discussed specific features of common chromosome abnormalities, including Down syndrome, trisomy 13, trisomy 18, and sex chromosome trisomies. ??? - At age 35 at midtrimester, the risk to have a baby with Down syndrome is 1 in 274. ??? - At age 35 at midtrimester, the risk to have a baby with any chromosome abnormality is 1 in 135. Testing Options: We discussed the following options: First trimester screening ?? First trimester ultrasound with nuchal translucency and nasal bone assessments, maternal plasma hCG, CHARISSE-A, and AFP measurement ?? Screens for trisomy 21, trisomy 13, and trisomy 18 ?? Cannot screen for open neural tube defects; maternal serum AFP after 15 weeks is recommended Non-invasive Testing (NIPT) ?? Maternal plasma cell-free DNA testing; first trimester ultrasound with nuchal translucency and nasal bone assessment is recommended, when appropriate ?? Screens for trisomy 21, trisomy 13, trisomy 18, and sex chromosome aneuploidy ?? Cannot screen for open neural tube defects; maternal serum AFP after 15 weeks is recommended Chorionic villus sampling (CVS) ?? Invasive procedure typically performed in the first trimester by which placental villi are obtained for the purpose of chromosome analysis and/or other genetic analysis ?? Diagnostic results; >99% sensitivity for chromosome abnormalities ?? Cannot test for open neural tube defects; maternal serum AFP after 15 weeks is recommended Genetic Amniocentesis ?? Invasive procedure typically performed in the second trimester by which amniotic fluid is obtained for the purpose of chromosome analysis and/or other genetic analysis ?? Diagnostic results; >99% sensitivity for chromosome abnormalities ?? AFAFP measurement tests for open neural tube defects We reviewed the benefits and limitations of this testing. Screening tests provide a risk assessment specific to the for certain chromosome abnormalities, but cannot definitively diagnose or exclude a chromosome abnormality. Follow-up genetic counseling and consideration of diagnostic testing is recommended with any abnormal screening result. Diagnostic tests carry inherent risks- including risk of miscarriage- that require careful consideration. These tests can detect chromosome abnormalities with greater than 99% certainty. Results can be compromised by maternal cell contamination or mosaicism, and are limited by the resolution of c ytogenetic G-banding technology. There is no screening nor diagnostic test that can detect all formsof defects or mental disability. It was a pleasure to be involved with Tameka???s care. [id number]-[id number] time of the meeting was 25 minutes. Marly Marquez MS, [facility] Maternal Medicine [facility] [email or web address] documented in this encounter Plan of Treatment Not on filedocumented as of this encounter Visit Diagnoses Diagnosis Supervision of elderly multigravida in f irst trimester - Primary Supervision of high-risk of el merlene multigravida related condition, antepartum documented in this encounter Additional Health Concerns Assessment Noted Time PHQ-9 Depression Total Score: 3 12/07/2018 7:05 AM CDT documented as of this encounter Care Teams Time Stamp Assembler Relationship Specialty Start Date End Date Annalisa Mark APRN ELECTROPLATING TECHNICIAN PCP - General Nurse Practitioner 03/22/15 [address] [place], [place] [id number] Annalisa Mark APRN ELECTROPLATING TECHNICIAN Assigned PCP 06/06/18 07/02/19 [address] [place], [place] [id number] documented as of this encounter
--- OUTSIDE RECORDS SUMMARY | 2022-06-06 21:01 | XMS_ITS | Encounter Summary ---
:1985 Author Organization [place] Address [facility] [place] [address] Care Team Providers Name Role Phone Deedee, Annalisa Peacock APRN, CNP Primary Care Provider [phone] DeedeeSwapnaarnulfo Peacock APRN, CNP Unavailable [phone] Reason for Referral Diagnostic Imaging Ultrasound (Routine) - Closed Specialty Diagnoses / Procedures Referred By Contact Refer red To Contact Diagnoses related condition, antepartum Jacob Martínez MD Procedures Maternal Nuchal Translucency [address] [place] [address] Referral ID Status Reason Start Date Expiration Date Visits Requ ested Visits Authorized [id number] Closed 02/24/2019 02/24/2020 1 1 Reason for Visit Diagnostic Imaging Ultrasound (Routine) - Closed Specialty Diagnoses / Procedures Referred By Contact Refer red To Contact Diagnoses related condition, antepartum Jacob Martínez MD Procedures Maternal Nuchal Translucency [address] [place] [address] Referral ID Status Reason Start Date Expiration Date Visits Requ ested Visits Authorized [id number] Closed 02/24/2019 02/24/2020 1 1 Encounter Details Date Type Department Care Team Description 03/11/2019 Hospital Encounter [facility] Leonard Martínez MD [address] [place] [address] related [facility], Joya Valdes [facility] antepartum [place] [address] [facility] [address] [place] [phone] Social History Tobacco Use Types Packs/Day Years [...] you attend scientology or Patient refused 2021 anabaptist services? Do you belong to any clubs [...] Other acute otitis for 7 days. externa Prenat w/o 0 02/15/2019 10/23/2020 J-AS-Dwmfujh-FA-DHA (PNV-DHA) 27-0.6-0.4-300 MG CAPS triamcinolone (KENALOG) APPLY TO AFFECTED 1 02/0707/29/2019 0.1 % external cream AREA TWICE A DAY FOR 7 DAYS documented as of this encounter Plan of Treatment Not on filedocumented as of this encounter Procedures Procedure Name Priority Date/Time Associated Comments Diagnosis MFM NUCHAL Routine 03/11/2019 12:13 related Result s for this TRANSLUCENCY PM CDT condition, procedure are i n antepartum the results section. documented in this encounter Results Maternal Nuchal Translucency (03/11/2019 12:13 PM CDT) Anatomical Region Laterality Modality Ultrasound Specimen (Source) Anatomical Collection Method Collection Time Re ceived Time Location / / Volume Laterality 03/11/2019 11:47 AM CDT Impressions 03/11/2019 12:24 PM CDT IMPRESSION 1) [place] intrauterine at 1 3 & 0/7 weeks gestational age. 2) The nasal bone was visualized. 3) Measurements consistent with [facility] dates. 4) Visualized anatomy appears normal for early gestational age. Narrative 03/11/2019 12:24 PM CDT 1st Trim Pat. Name: JANETTMARCELINO STEPHENS Study Date: 11:47am Pat. NO: [id number] Referring ??: LEONARD MARTÍNEZ Site: [facility] Councilperson: Chiqui Helton RD MS : 1985 Age: 33 INDICATION Advanced Maternal Age METHOD Transabdominal ultrasound examination. V iew: Sufficient [place] . Number of fetuses: 1 DATING ? Date ?Details ?Gest. age ?JUDD LMP ?12/10/2018 ? 13 w + 0 d ? 09/16/2019 Prior assessment ? 7/ ? GA: 8 w + 6 d ?12 w + 3 d ? 09/20/2019 U/S ? 03/11/2019 ? based upon CRL ?13 w + 0 d ? 09/16/2019 Assigned dating ?Dating performed on 03/11/2019, based on the LMP ?13 w + 0 d ? 09/16/2019 GENERAL EVALUATION Cardiac activity present. Placenta posterior. Cord vessels 3 vessel cord. Amniotic fluid normal amount. BIOMETRY FHR ?155 ? bpm CRL ? 67.2 ? mm ? 13w 0d ? [place] ANATOMY The following structures appear normal: Neck. The following structures were visualized : Cranium. Face. Abdominal wall. GI tract. Urogenital tract. Arms. Legs. MATERNAL STRUCTURES Cervix ?Visualized ? Appearance: Appears Closed Right Ovary ?Visualized Left Ovary ?Visualized RECOMMENDATION Thank-you for referring your patient for a nuchal translucency ultrasound. She had cell free DNA showing the expected amounts of chromosomes 21, 18 & 13. She has a prior child with CF. She considered IVF for preimplantation genetic testing and opted not to pursue that. She declines invasive testing for this knowing there is a 25% chance of another affected child. Comprehensive ultrasound is scheduled he re at 18-20 weeks. Return to primary provider for continued care. If you have questions regarding today's evaluation or if we can be of further service, please contact the [facility]. anomalies may be present but not detected Procedure Note CrossJoya MD - 03/11/2019For matting of this note might be different from the original. 1st Trim Pat. Name:Rolf DALEY Date:03/11 11:47am Pat. NO: [id number] :AVRIL MARTÍNEZ [facility]Chiqui Helton RUST :1985Age:33 INDICATION Advanced Maternal Age METHOD Transabdominal ultrasound examination. V iew: Sufficient [place] . Number of fetuses: 1 DATING Date Details Gest. age JUDD LMP 12/10/2018 13 w + 0 d 09/16/2019 Prior assessment 02/14/2019 GA: 8 w + 6 d 12 w + 3 d 09/20/2019 U/S 03/11/2019 based upon CRL 13 w + 0 d 09/16/2019 Assigned dating Dating performed on 02/24, based on the LMP 13 w + 0 d 09/16/2019 GENERAL EVALUATION Cardiac activity present. Placenta posterior. Cord vessels 3 vessel cord. Amniotic fluid normal amount. BIOMETRY FHR 155 bpm CRL 67.2 mm 13w 0d [place] ANATOMY The following structures appear normal: Neck. The following structures were visualized : Cranium. Face. Abdominal wall. GI tract. Urogenital tract. Arms. Legs. MATERNAL STRUCTURES Cervix Visualized Appearance: Appears Closed Right Ovary Visualized Left Ovary Visualized RECOMMENDATION Thank-you for referring your patient for a nuchal translucency ultrasound. She had cell free DNA showing the expected amounts of chromosomes 21, 18 & 13. She has a prior child with CF. She considered IVF for preimplantation genetic testing and opted not to pursue that. She declines invasive testing for this knowing there is a 25% chance of another affected child. Comprehensive ultrasound is scheduled he re at 18-20 weeks. Return to primary provider for continued care. If you have questions regarding today's evaluation or if we can be of further service, please contact the [facility]. anomalies may be present but not detected IMPRESSION 1) [place] intrauterine at 1 3 & 0/7 weeks gestational age. 2) The nasal bone was visualized. 3) Measurements consistent with establis hed dates. 4) Visualized anatomy appears normal for early gestational age. Jacob Martínez MD [facility] ORDERABLES documented in this encounter Visit Diagnoses Diagnosis related condition, antepartum documented in this encounter Additional Health Concerns Assessment Noted Time PHQ-9 Depression Total Score: 3 12/07/2018 7:05 AM CDT documented as of this encounter Care Teams Flow Floor Attendant Relationship Specialty Start Date End Date Annalisa Mark APRN INSTRUCTIONAL FACILITATOR PCP - General Nurse Practitioner 03/22/15 [address] [place], [place] [phone] Annalisa Mark APRN INSTRUCTIONAL FACILITATOR Assigned PCP 06/06/18 07/02/19 [address] [place], [place] [phone] documented as of this encounter
--- OUTSIDE RECORDS SUMMARY | 2022-06-06 21:01 | XMS_ITS | Encounter Summary ---
:1985 Author Organization [place] Address [address] [place], [place] [address]. [place] [address] Care Team Providers Name Role Phone Annalisa Mark APRN, CNP Primary Care Provider [phone] Annalisa Mark APRN HEARING IMPAIRED ITINERANT TEACHER Unavailable [phone] Encounter Details Date Type Department Care Team Description 01/18/2019 Travel Social History Tobacco Use Types Packs/Day [...] you attend amish or Patient refused 2021 episcopal services? Do [...] or slept in a half-way (including now)? Sex Assigned at Date Recorded Female 03/25/2021 2:01 PM CDT documented as of this encounter Plan of Treatment Not on filedocumented as of this encounter Visit Diagnoses Not on filedocumented in this encounter Additional Health Concerns Assessment Noted Time PHQ-9 Depression Total Score: 3 12/07/2018 7:05 AM CDT documented as of this encounter Care Teams Wafer Slicer Relationship Specialty Start Date End Date Annalisa Mark APRN HEARING IMPAIRED ITINERANT TEACHER PCP - General Nurse Practitioner 03/22/15 [address] [place], [place] [phone] Annalisa Mark APRN HEARING IMPAIRED ITINERANT TEACHER Assigned PCP 06/06/18 07/02/19 [address] [place], [place] [id number] documented as of this encounter
--- OUTSIDE RECORDS SUMMARY | 2022-06-06 21:01 | XMS_ITS | Encounter Summary ---
:1985 Author Organization [place] Address [address] [place], [place] [address]. [place] [address] Care Team Providers Name Role Phone Annalisa Mark APRN, CNP Primary Care Provider [phone] Annalisa Mark APRN FORMAT PROOFREADER Unavailable [phone] Encounter Details Date Type Department Care Team Description 03/25/2019 Travel Social History Tobacco Use Types Packs/Day [...] you attend mandaen or Patient refused 2021 confucianism services? Do [...] as of this encounter Care Teams Corporate Lawyer Relationship Specialty Start Date End Date Annalisa Mark APRN FORMAT PROOFREADER PCP - General Nurse Practitioner 03/22/15 [address] [place] [address] Annalisa Mark APRN FORMAT PROOFREADER Assigned PCP 06/06/18 07/02/19 [address] [place] [address] documented as of this encounter
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
--- OUTSIDE RECORDS SUMMARY | 2022-06-06 21:01 | XMS_ITS | Encounter Summary ---
:1985 Author Organization [place] Address [address] [place], [place] [address]. [place] [address] Care Team Providers Name Role Phone Deedee, Annalisa Peacock APRN, CNP Primary Care Provider [phone] DeedeeSwapnaarnulfo Peacock APRN FINANCIAL PROCESSING CLERK Unavailable [phone] Encounter Details Date Type Department Care Team Description 01/31/2019 Orders Only [facility] Jacob Carmona rvision of normal [facility] MD Antony (Primary [place] [address] [facility] Dx) [address] [place] [address] [address] [place] [address] Social History Tobacco Use Types [...] you attend orthodox or Patient refused 2021 anglican services? Do [...] or slept in a snf (including now)? Sex Assigned at Date Recorded Female 03/25/2021 2:01 PM CDT documented as of this encounter Plan of Treatment Not on filedocumented as of this encounter Results Treponema Abs w Reflex to RPR and Titer (02/15/2019 2:04 PM CDT) Patholo gist Method Time Signature Treponema Nonreactive NR^Nonrea 02/16/2019 INFECTIOUS Antibodies ctive 10:04 AM CDT [facility] Specimen Anatomical Collection Method Collection Time Receive d Time (Source) Location / / Volume Laterality Blood specimen 02/15/2019 2:04 PM 019 2:05 (specimen) CDT PM CDT Jacob Carmona MD LAB - BLOOD ORDERABLES Performing Organization Address [facility] Phon e Number INFECTIOUS DISEASES [address] [place] [address] DIAGNOSTIC LABORATORY, [facility] INFECTIOUS DISEASES [address] [place] [address] A DIAGNOSTIC LABORATORY Rubella Antibody IgG Quantitative (02/15/2019 2:04 PM CDT) Analysis Performed At Patho logist Time Signature Rubella Antibody 90 IU/mL 02/16/2019 INFECTIOUS IgG Quantitative 10:04 AM CDT [facility] Comment: Positive. ??Suggests previous exposure o r immunization and probable immunity Reference Range: ??Unvaccinated Negative 0-7 IU/mL Vaccinated or previous exposure Positive 10 IU/ml or greater Specimen Anatomical Collection Method Collection Time Receive d Time (Source) Location / / Volume Laterality Blood specimen 02/15/2019 2:04 PM 019 2:05 (specimen) CDT PM CDT Jacob Carmona MD LAB - BLOOD ORDERABLES Performing Organization Address [facility] Phon e Number INFECTIOUS DISEASES [address] [place] [address] DIAGNOSTIC LABORATORY, [facility] INFECTIOUS DISEASES [address] [place] [address] A DIAGNOSTIC LABORATORY ABO/Rh type and screen (02/15/2019 2:04 PM CDT) [facility] g[facility] Method Time Signature ABO A 02/15/2019 [place] 5:39 PM CDT [facility] RH(D) Pos [facility] Antibody Neg 02/15/2019 [place] Screen 5:39 PM CDT [facility] Test Valid [place] 02/15/2019 [place] Only At [facility] 5:40 PM CDT [facility] HOSPITAL Specimen 02/18/2019 02/15/2019 [place] Expires 5:40 PM CDT [facility] Specimen Anatomical Collection Method Collection Time Receive d Time (Source) Location / / Volume Laterality Blood specimen 02/15/2019 2:04 PM 019 2:05 (specimen) CDT PM CDT Jacob Carmona MD LAB - BLOOD BANK TEST ORDER Performing Organization Address City/State/ZIP Code Phon e Number [facility] [address] [address] HOSPITAL [facility] [address] [phone] (ABNORMAL) CBC with platelets (02/15/2019 2:04 PM CDT) athologist Signature WBC 13.7 (H) 4.0 - 11.0 02/15/2019 [place] 10e9/L 3:23 PM CDT [facility] Comment: Results confirmed by repeat corazon t RBC Count 3.96 3.8 - 5.2 10e12/L 02/15/2019 3:23 PM CDT [facility] Hemoglobin 12.4 11.7 - 15.7 g/dL 02/15/2019 3:23 PM CDT [facility] Hematocrit 37.2 35.0 - 47.0 % 02/15/2019 3:23 PM CDT [facility] MCV 94 78 - 100 fl 02/15/2019 3:23 PM CDT [facility] MCH 31.3 26.5 - 33.0 pg 02/15/2019 3:23 PM CDT [facility] MCHC 33.3 31.5 - 36.5 g/dL 02/15/2019 3:23 PM CDT [facility] RDW 12.5 10.0 - 15.0 % 02/15/2019 3:23 PM CDT [facility] Platelet Count 239 150 - 450 10e9/L 02/15/2019 3:23 PM CDT [facility] Specimen Anatomical Collection Method Collection Time Receive d Time (Source) Location / / Volume Laterality Blood specimen 02/15/2019 2:04 PM 019 2:05 (specimen) CDT PM CDT Jacob Carmona MD LAB - BLOOD ORDERABLES Performing Organization Address City/[facility]/ZIP Code Phon e Number [facility] [address] [place] [address] HIV Antigen Antibody Combo (02/15/2019 2:04 PM CDT) [facility] Method Time Signature HIV Antigen Nonreactive NR^Nonrea 02/16/2019 [facility] Antibody ctive 12:02 PM CDT [facility] Comment: HIV-1 p24 Ag & HIV-1/HIV-2 Ab N ot Detected Specimen Anatomical Collection Method Collection Time Receive d Time (Source) Location / / Volume Laterality Blood specimen 02/15/2019 2:04 PM 019 2:05 (specimen) CDT PM CDT Jacob Carmona MD LAB - BLOOD ORDERABLES Performing Organization Address City/[facility]/ZIP Code Phon e Number [address] Hepatitis B surface antigen (02/15/2019 2:04 PM CDT) [facility] Method [place] Signature Hep B Surface Nonreactive NR^Nonrea 02/16/2019 [facility] Agn ctive 12:02 PM CDT [facility] Specimen Anatomical Collection Method Collection Time Receive d Time (Source) Location / / Volume Laterality Blood specimen 02/15/2019 2:04 PM 019 2:05 (specimen) CDT PM CDT Jacob Carmona MD LAB - BLOOD ORDERABLES Performing Organization Address City/[facility]/ZIP Code Phon e Number [facility] [address] Urine Culture Aerobic Bacterial (02/15/2019 2:03 PM CDT) [facility] Method Time Signature Specimen Midstream [place] Description Urine [facility] Culture Micro No growth 02/18/2019 [place] 1:58 PM CDT [facility] Specimen (Source) Anatomical Collection Method Collection Time Re ceived Time Location / / Volume Laterality Examination of 02/15/2019 2:03 02/15/2019 2:04 midstream urine PM CDT PM CDT specimen (procedure) Jacob Carmona MD LAB - MICRO GENERAL ORDERABL ES Performing Organization Address City/State/ZIP Code Phon e Number [address] [address] documented in this encounter Visit Diagnoses Diagnosis Supervision of normal - Primar y Supervision of other normal documented in this encounter Additional Health Concerns Assessment Noted Time PHQ-9 Depression Total Score: 3 12/07/2018 7:05 AM CDT documented as of this encounter Care Teams Communication Skills Instructor Relationship Specialty Start Date End Date Annalisa Mark APRN FINANCIAL PROCESSING CLERK PCP - General Nurse Practitioner 03/22/15 [address] [place], [place] [id number] Annalisa Mark APRN FINANCIAL PROCESSING CLERK Assigned PCP 06/06/18 07/02/19 [address] [place], [place] [id number] documented as of this encounter
--- OUTSIDE RECORDS SUMMARY | 2022-06-06 21:01 | XMS_ITS | Encounter Summary ---
:1985 Author Organization [place] Address [address] [place], [place] [address]. [place] [address] Care Team Providers Name Role Phone Annalisa Mark APRN, CNP Primary Care Provider [phone] Annalisa Mark APRN BROACHING 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 Unavailable [phone] Encounter Details Date Type Department Care Team Description 12/08/2018 Travel Social History Tobacco Use Types Packs/Day Years Used Date Smoking Tobacco: Never Smokeless Tobacco: Never Alcohol Use Standard Drinks/Week Comments No 0 (1 standard drink = 0.6 oz [...] you attend episcopalian or Patient refused 2021 adventism services? Do you belong to any clubs [...] or slept in a fdc (including now)? Sex Assigned at Date Recorded Female 03/25/2021 2:01 PM CDT documented as of this encounter Plan of Treatment Not on filedocumented as of this encounter Visit Diagnoses Not on filedocumented in this encounter Additional Health Concerns Assessment Noted Time PHQ-9 Depression Total Score: 3 12/07/2018 7:05 AM CDT documented as of this encounter Care Teams Software Applications Engineer Relationship Specialty Start Date End Date Annalisa Mark APRN BROACHING 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 PCP - General Nurse Practitioner 03/22/15 [address] [place], [place] [phone] Annalisa Mark APRN BROACHING 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 Assigned PCP 06/06/18 07/02/19 [address] [place], [place] [id number] documented as of this encounter
--- OUTSIDE RECORDS SUMMARY | 2022-06-06 21:01 | XMS_ITS | Encounter Summary ---
:1985 Author Organization [place] Address [facility] [place] [address] Care Team Providers Name Role Phone Deedee, Annalisa Peacock APRN, CNP Primary Care Provider [phone] Annalisa Mark APRN SALES OFFICE MANAGER Unavailable [phone] Reason for Visit Reason Comments Genetic Counseling AMA @ delivery, son with CF Ultrasound NT- AMA @ delivery Encounter Details Date Type Department Care Team Description 03/11/[address] [facility] Javier Carmona MD [address] [place] [address] Encounter for nuchal translucency testin g (Primary Dx); Maternal Cross, Joya THURSTON (advanced maternal age) multigravida 35+, unspecified trimester [facility] [place] [address] [facility] [address] [place] [address] Social History Tobacco Use Types [...] attend jehovah's witness or Patient refused 2021 congregation services? Do you belong to any clubs [...] documented as of this encounter Progress Notes Joya Valenzuela MD - 03/11/2019 12:15 PM CDT Images from the original note were not included. Please see ultrasound report under imaging tab for details on ultrasound performed today. Joya Valenzuela MD Fish Warden, HEEL SEAT POUNDER Maternal- Medicine [email or web address] [phone] (Academic office) [phone] (Pager) documented in this encounter Plan of Treatment Not on filedocumented as of this encounter Visit Diagnoses Diagnosis Encounter for nuchal translucency testin g - Primary Other specified screening AMA (advanced maternal age) multigravida 35+, unspecified trimester documented in this encounter Additional Health Concerns Assessment Noted Time PHQ-9 Depression Total Score: 3 12/07/2018 7:05 AM CDT documented as of this encounter Care Teams Corporate Director Talent Assessment Relationship Specialty Start Date End Date Annalisa Mark APRN SALES OFFICE MANAGER PCP - General Nurse Practitioner 03/22/15 [address] [place] [address] Annalisa Mark APRN SALES OFFICE MANAGER Assigned PCP 06/06/18 07/02/19 [address] [place], [place] [id number] documented as of this encounter
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
--- OUTSIDE RECORDS SUMMARY | 2022-06-06 21:01 | XMS_ITS | Encounter Summary ---
:1985 Author Organization [place] Address [facility] [place] [place] [address] Care Team Providers Name Role Phone Deedee Annalisa Peacock APRN, CNP Primary Care Provider [phone] Annalisa Mark APRN LOOM CHECKER Unavailable [phone] Reason for Visit Reason Onset Date Comments Care 03/02/2019 [facility] Encounter Details Date Type Department Care Team Description 03/02/2019 Telephone [facility] Jacob Carmona [facility] Deborah Hardy MD ([facility]) [address] [address] [place] [address] [address] [place] [address] [phone] Social History Tobacco Use Types Packs/Day Years [...] you attend amish or Patient refused 2021 methodist services? Do [...] this encounter Miscellaneous Notes Telephone Encounter - Pamela Velazquez RN - 03/02/2019 10:05 AM CDT Results received from [facility] testing in [place] triage.. Testing done: Innatal Screen Action: Spoke to pt and gave NORMAL results. Gender: Gender revealed to pt on the phone. Routed to provider as FYI. Pamela Velazquez RN documented in this encounter Plan of Treatment Not on filedocumented as of this encounter Visit Diagnoses Not on filedocumented in this encounter Additional Health Concerns Assessment Noted Time PHQ-9 Depression Total Score: 3 12/07/2018 7:05 AM CDT documented as of this encounter Care Teams It Architecture Consultant Relationship Specialty Start Date End Date Annalisa Mark APRN LOOM CHECKER PCP - General Nurse Practitioner 03/22/15 [address] [place] [address] Annalisa Mark APRN LOOM CHECKER Assigned PCP 06/06/18 07/02/19 [address] [place] [address] documented as of this encounter
--- OUTSIDE RECORDS SUMMARY | 2022-06-06 21:01 | XMS_ITS | Encounter Summary ---
:1985 Author Organization [place] Address [address] [place], [place] [address]. [place] [address] Care Team Providers Name Role Phone Annalisa Mark APRN, CNP Primary Care Provider [phone] Annalisa Mark APRN SHIRT IRONER SUPERVISOR Unavailable [phone] Encounter Details Date Type Department Care Team Description 02/24/2019 Travel Social History Tobacco Use Types Packs/Day [...] you attend sabianist or Patient refused 2021 spiritism services? Do you belong to any clubs [...] as of this encounter Care Teams Collection Analyst Relationship Specialty Start Date End Date Annalisa Mark APRN SHIRT IRONER SUPERVISOR PCP - General Nurse Practitioner 03/22/15 [address] [place] [address] Annalisa Mark APRN SHIRT IRONER SUPERVISOR Assigned PCP 06/06/18 07/02/19 [address] [place] [address] documented as of this encounter
--- OUTSIDE RECORDS SUMMARY | 2022-06-06 21:01 | XMS_ITS | Encounter Summary ---
:1985 Author Organization [place] Address [facility] [place] [address] Care Team Providers Name Role Phone Deedee Annalisa Peacock APRN, CNP Primary Care Provider [phone] Deedee, Annalisa Peacock APRN, CNP Unavailable Mukul Rivas PA-C Unavailable [phone] Deedee, Annalisa Peacock APRN, CNP Unavailable Mukul Rivas PA-C Unavailable [phone] Deedee, Annalisa Peacock APRN, CNP Unavailable Jacob Martíenz MD Unavailable [phone] Leonor Burgos MD Unavailable Deedee, Annalisa Peacock APRN, CNP Unavailable [phone] Reason for Referral Diagnostic Imaging Ultrasound (Routine) - Closed Specialty Diagnoses / Procedures Referred By Contact Refer red To Contact Diagnoses related condition, antepartum Jacob Martínez, Procedures [facility] [place] [address] Referral ID Status Reason Start Date Expiration Date Visits Requ ested Visits Authorized [id number] Closed 02/24/2019 02/24/2020 1 1 Diagnostic Imaging Ultrasound (Routine) - Closed Specialty Diagnoses / Procedures Referred By Contact Refer red To Contact Diagnoses related condition, antepartum Jacob Martínez MD Procedures Maternal Nuchal Translucency [address] [place] [address] Referral ID Status Reason Start Date Expiration Date Visits Requ ested Visits Authorized [id number] Closed 02/24/2019 02/24/2020 1 1 (Routine) - Closed Specialty Diagnoses / Procedures Referred By Contact Refer red To Contact Diagnoses related condition, antepartum Jacob Martínez MD [address] [place] [address] Referral ID Status Reason Start Date Expiration Date Visits Requ ested Visits Authorized [id number] Closed 02/24/2019 02/24/2020 1 1 Encounter Details Date Type Department Care Team Description 02/24/2019 Transcribe Orders [facility] Jacob Martínez related Maternal MD Antony condition, Medicine Center [address] antepartum (Primary [place], [place] Dx) [address] [address] [facility] [address] [place] [address] Social History Tobacco Use Types [...] or relatives? How often do you attend religious or Patient refused 2021 zoroastrianism services? Do you belong to any clubs or No 10/17/2021 organizations such as religious groups, unions, fraternal or athletic groups, or [...] as of this encounter Plan of Treatment Scheduled Referrals Name Type Priority Associated Diagnoses Order S chedule [facility] Genetic Counseling Referral Routine related 1 Occurrences starting condition, antepartum 2018 until 02/25/2020 documented as of this encounter Results [facility] US Comprehensive Single (04/29/2019 2:08 PM CDT) [...] MARCELINO DALEY Study Date: 1:25pm Pat. NO: [id number] Referring ??: LEONARD MARTÍNEZ Site: [facility] Entry Level Software Engineer: Ilene Aguilar : 1985 Age: 34 [...] Biometry: BPD ?46.4 ?mm ? 20w 0d ?[facility] OF[facility] ?59.3 ?mm ? 19w 2d ?Nicolaides HC ?167.6 ?mm ?19w 3d ?Hadlock Cerebellum tr ?20.5 ? mm ?19w 4d ?Nicolaides AC ?147.4 ?mm ?20w 0d ?Hadlock Femur ?31.4 ? mm ?19w 5d ?Hadlock Humerus ?29.7 ?mm ? 19w 5d ?Bisi Weight Calculation: EFW ? 317 ? g EFW (lb,oz) ? 0 lb 11 ? oz EFW by ?Hadlock ([id number]) Head / Face / Neck Biometry: Acid Patroller ? 5.0 ? mm CM ?3.6 ? [...] cava. Inferior vena cava. 3-vessel ? view. 8-pxozkn-rkhfswy view. Cardiac position. Cardiac size. Cardiac rhythm. [...] Pat. Name:Rolf DALEY Date:04/29 1:25pm Pat. NO: [id number] MD:AVRIL MARTÍNEZ [facility]Lorrie Pennington RDMS :1985Age:34 INDICATION Advanced Maternal Age, [...] 0 lb 11 oz EFW by Hadlock ([id number]-FL) Head / Face / Neck Biometry: Acid Patroller 5.0 mm CM 3.6 mm Nasal bone [...] vena cava. Inferior vena cava. 3-vessel view. 4-qfpfnd-iabrbjt view. Cardiac po sition. Cardiac size. Cardiac [...] aneuploidy seen. Placenta previa. Jacob Martínez MD [facility] US ORDERABLES Maternal Nuchal Translucency (03/11/2019 12:13 PM CDT) Anatomical Region Laterality Modality Ultrasound Specimen (Source) Anatomical Collection Method Collection Time Re ceived Time Location / / Volume Laterality 03/11/2019 11:47 AM CDT Impressions 03/11/2019 12:24 PM CDT IMPRESSION 1) [place] intrauterine at 1 3 & 0/7 weeks gestational age. 2) The nasal bone was visualized. 3) Measurements consistent with establ[facility] dates. 4) Visualized anatomy appears normal for early gestational age. Narrative 03/11/2019 12:24 PM CDT 1st Trim Pat. Name: MARCELINO DALEY Study Date: 11:47am Pat. NO: [id number] Referring ??MD: LEONARD MARTÍNEZ Site: [facility] Entry Level Software Engineer: Chiqui JACY Helton MS : 1985 Age: 33 INDICATION Advanced [...] be present but not detected Procedure Note Joya Valenzuela MD - 03/11/2019For matting of this note might be different from the original. 1st Trim Pat. Name:Rolf DALEY Date:03/11 11:47am Pat. NO: [id number] MD:AVRIL MARTÍNEZ [facility]Chiqui TULIO Helton :1985Age:33 INDICATION Advanced Maternal Age METHOD Transabdominal [...] for early gestational age. Jacob Martínez MD [facility] ORDERABLES documented in this encounter Visit Diagnoses Diagnosis related condition, antepartum - Primary related condition, antepartum related condition, antepartum documented in this encounter Additional Health Concerns Infection Onset Date Last Indicated Resolved Time Rule Out COVID-19 01/14/2021 01/14/2021 01/15/2021 3:3 2 PM CDT Rule Out C-difficile 02/26/2022 02/26/2022 02/27/2022 1:52 PM CDT C-difficile 02/26/2022 02/26/2022 03/28/2022 11:41 PM CDT Assessment Noted Time PHQ-9 Depression Total Score: 3 12/07/2018 7:05 AM CDT documented as of this encounter Care Teams Orthopedic Physical Therapist Relationship Specialty Start Date End Date Annalisa Mark, PCP - General Nurse Practitioner 03/22/15 [employer] [address] [place] [address] Annalisa Mark, Assigned PCP 06/06/18 9 [employer] [address] [place] [address] Evelyn Mukulgian Flannery, Assigned PCP 07/03/19 PA-C [address] [place], [place] [phone] Annalisa Mark, Assigned PCP 11/20/19 5// 0 [employer] [address] [place] [address] Evelyn Mukul Flannery, Assigned PCP 12/11/19 PA-C [address] [place] [address] Annalisa Mark, Assigned PCP 01/22/20 2 [employer] [address] [place] [address] Jacob Martínez Assigned OBGYN Provider 05/18/20 MD Antony [address] [place] [address] Leonor Burgos Assigned PCP 02/22/22 2 MD Joel [address] [place] [address] Annalisa Mark, Assigned PCP 05/17/22 [employer] [address] [place] [address] documented as of this encounter
--- OUTSIDE RECORDS SUMMARY | 2022-06-06 21:01 | XMS_ITS | Encounter Summary ---
:1985 Author Organization [place] Address [facility] [place] [address] Care Team Providers Name Role Phone Deedee, Annalisa Peacock APRN, CNP Primary Care Provider [phone] DeedeeAnnalisa Madonna STANLEY CNP Unavailable [phone] Reason for Visit Diagnostic Imaging Ultrasound (Routine) - Closed Specialty Diagnoses / Procedures Referred By Contact Refer red To Contact Diagnoses Supervision of normal Jacob Carmona MD Procedures US OB < 14 Weeks Single US OB <14 Weeks w Transvaginal Single [address] [place] [address] Referral ID Status Reason Start Date Expiration Date Visits Requ ested Visits Authorized [id number] Closed 01/31/2019 01/31/2020 1 1 Encounter Details Date Type Department Care Team Description 02/14/2019 Ancillary Procedure [facility] Sup ervision of normal Clinic [place] [address] [employer] [address] [place] [address] Social History Tobacco Use Types Packs/Day Years [...] you attend caodaism or Patient refused 2021 hinduism services? Do [...] slept in a senior care (including now)? Sex Assigned at Date Recorded Female 03/25/2021 2:01 PM CDT documented as of this encounter Plan of Treatment Not on filedocumented as of this encounter Procedures Procedure Name Priority Date/Time Associated Diagnosis Comme nts US OB < 14 WEEKS Routine 02/14/2019 2:29 PM Supervision of Res ults for this SINGLE-TRANSABDOMIN CDT normal proc edure are in AL the results section. documented in this encounter Results (ABNORMAL) US OB < 14 Weeks Single (02/14/2019 2:29 PM CDT) Anatomical Region Laterality Modality Abdomen/Pelvis Ultrasound Specimen (Source) Anatomical Location Collection Method / Collectio n Time Received Time / Laterality Volume Impressions 02/14/2019 4:37 PM CDT ? MEASUREMENTS Gest Sac: vis ?5.7 x 3.7 x 5.1 cm ?? Position:nl ?Contour:smth/reg Yolk sac: 3.6 mm wnl CRL: 2.22 cm. ?EGA: ??8w 6d ?? U/S EDC: 20 Sep 2019 correspond Cardiac Activity:Yes ? FHR: 182 bpm reg ?? Rt Ov: 4.0 x 2.3 x 2.2 cm, Complex cyst 2.3 x 1.7 x 1.5cm Lt Ov: 3.5 x 2.4 x 2.0 cm, Wnl Cul de sac: no free fluid ?? Early obstetric transabdominal ultrasoun d and transvaginal ultrasound. Living intrauterine . Corresponding sonographic and menstrual EGA and EDC. Normal amniotic fluid seen Gestational sac: normal for gestational age Placenta: ??Location not identified, nor mal for gestational age Subchorionic hemorrhage seen Complex right ovarian cyst, likely corpu s luteal cyst, consider repeat ultrasound as clinically indicated. Dr. Yakelin Flynn, DO ?? Obstetrics [facility] Gyne[facility] ? [place] [facility] Narrative 02/14/2019 4:37 PM CDT [facility] [address] [place] [address] ?? ULTRASOUND - EARLY OB (0-11 WEEKS) ?? Referring Provider: Teresa Mcwilliams Clinic: [facility] ?? INDICATIONS FOR ULTRASOUND: OB History: Present Conditions: Advance Maternal Age (35+) Initial S&D (0-17 weeks) ?? CLINICAL INFORMATION ?? LMP: 10 Dec 2018 - sure EDC: 16 Sep 2019 ?? EGA: 9w3d ? Jacob Carmona MD IMG US ORDERABLES documented in this encounter Visit Diagnoses Diagnosis Supervision of normal Supervision of other normal documented in this encounter Additional Health Concerns Assessment Noted Time PHQ-9 Depression Total Score: 3 12/07/2018 7:05 AM CDT documented as of this encounter Care Teams Second Grade Teacher Relationship Specialty Start Date End Date Annalisa Mark APRN COMPUTER SECURITY COORDINATOR PCP - General Nurse Practitioner 03/22/15 [address] [place] [address] Annalisa Mark APRN COMPUTER SECURITY COORDINATOR Assigned PCP 06/06/18 07/02/19 [address] [place], [place] [id number] documented as of this encounter
--- OUTSIDE RECORDS SUMMARY | 2022-06-06 21:01 | XMS_ITS | Encounter Summary ---
:1985 Author Organization [place] Address [address] [place], [place] [address]. [place] [address] Care Team Providers Name Role Phone Deedee, Annalisa Peacock APRN, CNP Primary Care Provider [phone] DeedeeAnnalisa Madonna STANLEY HYDROLOGIC MODELER Unavailable [phone] Reason for Visit Reason Comments Mauri Encounter Details Date Type Department Care Team Description 02/07/2019 Emergency [facility] Matteo Rust Otalgia, [facility] Emergency Dep t DO [address] [facility] [place], [place] [address] [employer] [address] [address] [place], [place] [address] (Wo rk) Social History Tobacco Use Types [...] you attend sabianism or Patient refused 2021 christian services? Do [...] or slept in a intermediate (including now)? Sex Assigned at Date Recorded Female 03/25/2021 2:01 PM CDT documented as of this encounter Last Filed Vital Signs Vital Sign Reading Time Taken Comments Blood Pressure 119/81 02/07/2019 1:37 AM CDT Pulse - - Temperature 37.2 ??C (99 ??F) 02/07/2019 1:37 AM CDT Respiratory Rate 16 02/07/2019 1:37 AM CDT Oxygen Saturation 100% 02/07/2019 1:37 AM CDT Inhaled Oxygen Concentration - - Weight 52.9 kg (116 lb 10 oz) 02/07/2019 1:37 AM CDT Height - - Body Mass Index 20.27 01/18/2019 12:47 PM CDT documented in this encounter Discharge Instructions AttachmentsThe following attachments cannot be sent through Care Everywhere. External Ear Infection (Adult) (German)documented in this encounter Medications at Time of Discharge Medication Sig Dispensed Refills Start Date End Date bacitracin 500 UNIT/GM Apply topically 2 30 g 0 201802/24/2019 external ointment times daily To affected area in the B/L ears cephALEXin (KEFLEX) 500 Take 1 capsule by 14 capsule 0 01/2906/28/2019 MG capsuleIndications: mouth 2 times daily Other acute otitis for 7 days. externa lidocaine HCl Apply topically to 100 mL 0 02/07/201907/2018 (XYLOCAINE) 2 % solution the affected sites in your ear; Max 8 doses/24 hour period. triamcinolone (KENALOG) APPLY TO AFFECTED 1 02/0707/29/2019 0.1 % external cream AREA TWICE A DAY FOR 7 DAYS documented as of this encounter ED Notes Arlin [place], CHRIST - 02/07/2019 1:34 AM CDT left ear problems for 2 weeks, seen by ENT, now rt ear is also hurting with no relief from tylenol, is 8 weeks so is not taking ibuprofen otherwise alert and oriented CMS intact Matteo Rust DO - 02/07/2019 1:32 AM CDT Images from the original note were not included. History Chief Complaint: Otalgia LLUVIA Grissom is a 33 year old female who is 8 weeks who presents to the emergency department today with otalgia. The patient has been having left ear pain since November. Patient saw ENT on 01/11/19 for this pain. This ear continues to have blood and discharge, but is no longer painful. Patient has been using Bacitracin in both ears. Currently the right ear is painful and swollen. Pain is worsewhen she opens her mouth. She reports pain preventing her from sleeping. Patient also had a bug bitethat turned into cellulitis on 01/18/19 and she was on antibiotics for this. This is patient's secondpregnancy. Patient denies history of skin infections in the past. Allergies: No Known Drug Allergies Medications: Bacitracin - no longer taking Cipro - no longer taking Lexapro Past Medical History: Allergic rhinitis, seasonal Breast disorder Generalized anxiety disorder OCD (obsessive compulsive disorder) Mild major depression Papanicolaou smear of cervix with low grade squamous intraepithelial lesion (LGSIL) Wounds and injuries Past Surgical History: LEEP colposcopy with cervical biopsy Breast biopsy Cryotherapy Colposcopy of cervix Family History: Arthritis Lipids Alcohol/drug Breast cancer Social History: The patient was alone. Smoking Status: Never Smokeless Tobacco: Never Alcohol Use: No Marital Status: Single Review of Systems HENT: Positive for ear pain (first left ear pain, now right ear pain and swelling). All other systems reviewed and are negative. Physical Exam Patient Vitals for the past 24 hrs: BP Temp Heart Rate Resp SpO2 Weight 02/07/19 0137 119/81 99 ??F (37.2 ??C) 82 16 100 % 52.9 kg (116 lb 10 oz) Physical Exam Constitutional: Vital signs reviewed as above. HEENT: Head: No external signs of trauma. No lesions noted. Eyes: PEERL, EOMI B/L, no pain or limitation of superior gaze Ears: Normal B/L TM. Right tragus with crusting (similar to impetigo). Left external canal medial to the antitragus with crusting. Nose: Noncongested, no exudates. No rhinorrhea. No FB noted Mouth/Throat: Mucous membranes are moist and normal. No Oropharyngeal exudate. No oropharyngeal erythema noted. No tonsilar swelling noted. No uvular deviation noted. No swelling noted on the floor of the mouth Neck: FROM. Neck is supple Lymphatic: No posterior cervical LAD noted. Cardiovascular: Normal rate, regular rhythm and normal heart sounds. No murmur heard. Equal B/L peripheral pulses. Pulmonary/Chest: Effort normal and breath sounds normal. No respiratory distress. Patient has no wheezes. Patient has no rales. Gastrointestinal: Soft. There is no tenderness. Musculoskeletal/Extremities: No edema noted. Normal tone. Neurological: Patient is alert and oriented to person, place, and time. Skin: Skin is warm and dry. There is no diaphoresis noted. Psychiatric: The patient appears calm. Left Ear Right Ear Emergency Department Course Emergency Department Course: Nursing notes and vitals reviewed. 0155: I performed an exam of the patient as documented above. 0316: Findings and plan explained to the Patient. Patient discharged home with instructions regarding supportive care, medications, and reasons to return. The importance of close follow-up was reviewed. Patient was stated on Bacitracin and Lidocaine solution. 0343: Patient rechecked and updated. I personally answered all related questions prior to discharge. Impression & Plan Medical Decision Making: Tameka Grissom is a 33 year old female who presents to the ED due to ear pain. Please see the HPI and exam for specifics. The patient's external findings were noted in the images above. Otitis externastill could be a component of this, although it is also possible this could be a staff infection or even MRSA. I will encourage that the patient return to ENT, but I will have her use bacitracin 2x daily and I would also suggest topical lidocaine for discomfort relief, as the patient is and cannot take Ibuprofen. Anticipatory guidance given prior to discharge. Diagnosis: ICD-10-CM 1. Otalgia, bilateral H92.03 Glucose by meter Glucose by meter Disposition: discharged to home Review of your medicines START taking Dose / Directions bacitracin 500 UNIT/GM external ointment Apply topically 2 times daily To affected area in the B/L ears Quantity: 30 g Refills: 0 lidocaine HCl 2 % solution Commonly known as: XYLOCAINE Apply topically to the affected sites in your ear; Max 8 doses/24 hour period. Quantity: 100 mL Refills: 0 ?? Scribe Disclosure: Kimmie Haynes, am serving as a scribe at 2:01 AM on 02/07/2019 to document services personally performed by Matteo Rust DO based on my observations and the provider's statements to me. 02/07/2019 [facility] EMERGENCY DEPARTMENT Matteo Rust DO 02/07/19 0603 documented in this encounter Plan of Treatment Not on filedocumented as of this encounter Procedures Procedure Name Priority Date/Time Associated Diagnosis Comme nts GLUCOSE BY METER Routine 02/07/2019 4:06 AM Otalgia, bilateral Results for this CDT procedure are i n the results section. documented in this encounter Results Glucose by meter (02/07/2019 4:06 AM CDT) P athologist Signature Glucose 89 70 - 99 02/07/2019 POINT OF CARE mg/dL 4:17 AM CDT TEST, GLUCOSE Specimen Anatomical Collection Method Collection Time Receive d Time (Source) Location / / Volume Laterality 02/07/2019 4:06 AM 9 4:17 CDT AM CDT Matteo Rust DO LAB - BEAKER POCT Performing Organization Address City/State/ZIP Code Phon e Number FV POINT OF CARE TEST, GLUCOSE POINT OF CARE TEST, GLUCOSE documented in this encounter Visit Diagnoses Diagnosis Otalgia, bilateral documented in this encounter Active and Recently Administered Medications Additional Health Concerns Assessment Noted Time PHQ-9 Depression Total Score: 3 12/07/2018 7:05 AM CDT documented as of this encounter Care Teams Jet Aircraft Servicer Relationship Specialty Start Date End Date Annalisa Mark APRN HYDROLOGIC MODELER PCP - General Nurse Practitioner 03/22/15 [address] [place] [address] Annalisa Mark APRN HYDROLOGIC MODELER Assigned PCP 06/06/18 07/02/19 [address] [place], [place] [id number] documented as of this encounter
--- OUTSIDE RECORDS SUMMARY | 2022-06-06 21:01 | XMS_ITS | Encounter Summary ---
:1985 Author Organization [place] Address [address] [place], [place] [address]. [place] [address] Care Team Providers Name Role Phone Annalisa Mark APRN, CNP Primary Care Provider [phone] Annalisa Mark APRN CHILD SUPPORT AGENT Unavailable [phone] Encounter Details Date Type Department Care Team Description 02/07/2019 Travel Social History Tobacco Use Types Packs/Day [...] or slept in a retirement (including now)? Sex Assigned at Date Recorded Female 03/25/2021 2:01 PM CDT documented as of this encounter Plan of Treatment Not on filedocumented as of this encounter Visit Diagnoses Not on filedocumented in this encounter Additional Health Concerns Assessment Noted Time PHQ-9 Depression Total Score: 3 12/07/2018 7:05 AM CDT documented as of this encounter Care Teams Hands Parter Relationship Specialty Start Date End Date Annalisa Mark APRN CHILD SUPPORT AGENT PCP - General Nurse Practitioner 03/22/15 [address] [place], [place] [id number] Annalisa Mark APRN CHILD SUPPORT AGENT Assigned PCP 06/06/18 07/02/19 [address] [place], [place] [id number] documented as of this encounter
--- OUTSIDE RECORDS SUMMARY | 2022-06-06 21:01 | XMS_ITS | Encounter Summary ---
:1985 Author Organization [place] Address [address] [place], [place] [address]. [place] [address] Care Team Providers Name Role Phone Annalisa Mark APRN, CNP Primary Care Provider [phone] Annalisa Mark APRN WOOD MODEL MAKER Unavailable Encounter Details Date Type Department Care Team Description 03/11/2019 Travel Social History Tobacco Use Types Packs/Day [...] or relatives? How often do you attend yazidism or Patient refused 2021 confucianism services? Do you belong to any clubs or No 10/17/2021 organizations such as yazidism groups, unions, fraternal or athletic groups, or [...] documented as of this encounter Care Teams Floater Operator Relationship Specialty Start Date End Date Annalisa Mark APRN WOOD MODEL MAKER PCP - General Nurse Practitioner 03/22/15 [address] [place] [address] Annalisa Mark APRN WOOD MODEL MAKER Assigned PCP 06/06/18 07/02/19 [address] [place] [address] documented as of this encounter
--- OUTSIDE RECORDS SUMMARY | 2022-06-06 21:01 | XMS_ITS | Encounter Summary ---
:1985 Author Organization [place] Address [facility] [place] [address] Care Team Providers Name Role Phone Deedee, Annalisa Peacock APRN, CNP Primary Care Provider [phone] Annalisa Mark APRN BARTENDERS Unavailable [phone] Reason for Visit Reason Comments Ultrasound NT Consult Genetic counseling: rody Sawyer NIPT Encounter Details Date Type Department Care Team Description 03/04/2019 PRE VISIT [facility] Joya Ultra sound (NT); Maternal Medicine Alphonso, RN Cons ult ([facility] counseling: KARENA [place] [address] delivery , nl NIPT) [address] [place] [address] Social History Tobacco Use Types [...] you attend episcopal or Patient refused 2021 uatsdin services? Do [...] as of this encounter Care Teams Mold Clamper Relationship Specialty Start Date End Date Annalisa Mark APRN BARTENDERS PCP - General Nurse Practitioner 03/22/15 [address] [place], [place] [id number] Annalisa Mark APRN BARTENDERS Assigned PCP 06/06/18 07/02/19 [address] [place] [address] documented as of this encounter
--- OUTSIDE RECORDS SUMMARY | 2022-06-06 21:01 | XMS_ITS | Encounter Summary ---
:1985 Author Organization [place] Address [address] [place], [place] [address]. [place] [address] Care Team Providers Name Role Phone Annalisa Mark APRN, CNP Primary Care Provider Annalisa Mark APRN ACCESS REPRESENTATIVE Unavailable [phone] Encounter Details Date Type Department Care Team Description 02/14/2019 Travel Social History Tobacco Use Types Packs/Day [...] you attend christianity or Patient refused 2021 catholic services? Do [...] or slept in a fpc (including now)? Sex Assigned at Date Recorded Female 03/25/2021 2:01 PM CDT documented as of this encounter Plan of Treatment Not on filedocumented as of this encounter Visit Diagnoses Not on filedocumented in this encounter Additional Health Concerns Assessment Noted Time PHQ-9 Depression Total Score: 3 12/07/2018 7:05 AM CDT documented as of this encounter Care Teams Fifth Hand Relationship Specialty Start Date End Date Annalisa Mark APRN ACCESS REPRESENTATIVE PCP - General Nurse Practitioner 03/22/15 [address] [place], [place] [phone] Annalisa Mark APRN ACCESS REPRESENTATIVE Assigned PCP 06/06/18 07/02/19 [address] [place], [place] [id number] documented as of this encounter
--- OUTSIDE RECORDS SUMMARY | 2022-06-06 21:01 | XMS_ITS | Encounter Summary ---
:1985 Author Organization [facility] Address [address] [place] [address]. [place] [address] Care Team Providers Name Role Phone Annalisa Mark APRN, CNP Primary Care Provider [phone] Annalisa Mark APRN, CNP Unavailable [phone] Reason for Referral Consultation (Routine) - Closed Specialty Diagnoses / Procedures Referred By Contact Refer red To Contact Diagnoses Multigravida of advanced maternal age in first trimester Mike Martínez, [facility] Critical access hospital[address] [address] [place] [id number] Referral ID Status Reason Start Date Expiration Date Visits Requ ested Visits Authorized [id number] Closed 02/24/2019 02/24/2020 1 1 Reason for Visit Reason Comments Care NPN Provider visit / c/o vag inal irritation continuing. Hx of cellulitis during this pregn gautam Forms FMLA Encounter Details Date Type Department Care Team Description 02/24/2019 Office [facility] Mike Simon of Visit Clinic Deborah Hardy MD advanced maternal [facility] age in first [place], [place] trimester (Primary [phone] Dx) SUMMER Cabrera [phone] (Wo rk) [phone] Social History Tobacco Use Types Packs/Day Years [...] Sign Reading Time Taken Comments Blood Pressure 96/60 02/24/2019 1:15 PM CDT Pulse - - Temperature - - Respiratory Rate - - Oxygen Saturation - - Inhaled Oxygen Concentration - - Weight 53.2 kg (117 lb 3.2 oz) 02/24/2019 1:15 PM CDT Height - - Body Mass Index 20.6 02/15/2019 12:55 PM CDT documented in this encounter Progress Notes Mike Martínez MD - 02/24/2019 1:00 PM CDT New OB Visit Marcelino Daley February 24, 2019 10w6d Subjective: Marcelino Alphonso Praveena 33 year old at 10w6d dated by LMP, early ultrasound here today for initial OB visit. Patient reports Nausea and Vomiting. Denies cramping and vaginal spotting. Has a child with cystic fibrosis and has become knowledgeable regarding the genetics of CF. She and her carry different CF genes. Genetic counseling advised Rubber Off History: Menses: LMP: Patient's last menstrual period was 12/10/2018. frequency: q month Sexually transmitted disease history: none. 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 OBhx: x 1 OB History Para Term AB Living 3 [...] 8 Apgar5: 9 1 SAB 10/2015 6w0d ROS: Ten point review of systems was reviewed and negative except the above. HISTORY: Past Medical History: Diagnosis Date ??? Allergic [...] I & II ??? CRYOTHERAPY 04/04/08, 12/14/08 Family History Problem Relation Age of Onset [...] BA, AB, BS) Occupational History ??? 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 Financial resource strain: Not hard at all ??? Food insecurity: Worry: Never true Inability: Never true ??? Transportation needs: Medical: No Non-medical: No Tobacco Use ??? Smoking status: Never Smoker ??? Smokeless tobacco: Never Used Substance and Sexual Activity ??? Alcohol use: Not Currently Alcohol/week: 0.0 oz Comment: Occaisional ??? Drug use: No ??? Sexual activity: Yes Partners: Male Lifestyle ??? Physical activity: Days per week: None Minutes per session: None ??? Stress: None Relationships ??? Social connections: Talks on phone: None Gets together: None Attends christian service: None Active member of club or organization: None Attends meetings of clubs or organizations: None Relationship status: None ??? Intimate partner violence: Fear of current or ex partner: None Emotionally abused: None Physically abused: None Forced sexual activity: None Other Topics Concern ??? Parent/sibling w/ CABG, HI or angioplasty before 65F 55M? Not Asked Social History Narrative ??? None Current Outpatient Medications Medication Sig ??? Calcium 600-400 MG-UNIT CHEW ??? Prenat w/o N-ZB-Dbxdwzf-FA-DHA (PNV-DHA) 27-0.6-0.4-300 MG CAPS ??? triamcinolone (KENALOG) 0.1 % external cream APPLY TO AFFECTED AREA TWICE A DAY FOR 7 DAYS No current facility-administered medications for this visit. Allergies Allergen Reactions ??? No Known Drug Allergies Past medical, surgical, social and family history were reviewed and updated in [facility]. EXAM: BP 96/60 Wt 53.2 kg (117 lb 3.2 oz) LMP 12/10/2018 BMI 20.60 kg/m?? Gen: no acute distress, comfortable HENT: No scleral injection or icterus CV: Regular rate and rhythm, no murmur Resp: CTAB, Normal work of breathing, no cough GI: Abdomen soft, non-tender. No masses, organomegaly Skin: No suspicious lesions or rashes Psychiatric: mentation appears normal and affect bright Pelvis: External genitalia within normal limits. Urethra is without lesion. Bladder is nontender. On speculum exam, cervix is without lesion and vagina is normal without lesion or discharge. Pap smear deferred. Cervical polyp noted at Os - grasped with ring forceps and twisted off. +FHT 164 Recent Labs Lab Test 02/15/19 1404 ABO A RH Pos Neg Rhogam not indicated Recent Labs Lab Test 02/15/19 1404 10/13/16 1558 HEPBANG Nonreactive -- HIAGAB Nonreactive -- GBS -- Negative No GBS DNA detected, presumed negative for GBS or number of bacteria may be below the limit of detection of the assay. Assay performed on incubated broth culture of specimen using Keas real-time PCR. RUQIGG 90 -- Treponemal antibody neg CBC RESULTS: Recent Labs Lab Test 02/15/19 1404 WBC 13.7* RBC 3.96 HGB 12.4 HCT 37.2 MCV 94 MCH 31.3 MCHC 33.3 RDW 12.5 PLT 239 ASSESSMENT: 33 year old at 10w6d dated by LMP and early U/S here for NOB visit. Son with cystic fibrosis - Pt and both known carriers of different genes PLAN: 1) labs reviewed. She has no questions. 2) EDUCATION : RECOMMENDED WEIGHT GAIN: 25-35 lbs given Body mass index is 20.6 kg/m??.. - Instructed on best evidence for: healthy diet and foods to avoid; exercise and activity during ; and maintenance of a generally healthy lifestyle. Reviewed early education, provider coverage, labor and delivery, and visits. Discussed the harms, benefits, side effects and alternative therapies for current prescribed and OTCmedications. - recommend PNV 3) Discussed options for screening for chromosomal anomalies, including first screen, noninvasive testing, CVS/amniocentesis, quad screen, and ultrasound at 18-20 weeks. She is electing noninvasive testing and ultrasound at 18-20 weeks. 4) Genetic counseling advised. She indicates she would decline amniocentesis if offered Follow up in 4 weeks. She is encouraged to call sooner with questions or concerns. Mike Martínez MD Obstetrics and Gynecology documented in this encounter Nursing Notes Kerri Roa CMA - 02/24/2019 1:00 PM CDT Chief Complaint Patient presents with ??? Care NPN Provider visit / c/o vaginal irritation continuing. Hx of cellulitis during this ??? Forms FMLA 10w6d [employer] today Initial Wt 53.2 kg (117 lb 3.2 oz) LMP 12/10/2018 BMI 20.60 kg/m?? Estimated body mass index is 20.6 kg/m?? as calculated from the following: Height as of 02/15/19: 1.607 m (5' 3.25). Weight as of this encounter: 53.2 kg (117 lb 3.2 oz). BP completed using cuff size: regular Questioned patient about current smoking habits. Pt. has never smoked. The following HM Due: NONE Kerri Roa CMA documented in this encounter Plan of Treatment Scheduled Referrals Name Type Priority Associated Diagnoses Order S chedule MAT MED CTR Referral Routine Multigravida of advance d Ordered: 02/24/2019 REFERRAL- maternal age in first trimester documented as of this encounter Procedures Procedure Name Priority Date/Time Associated Diagnosis Comme nts INVITAE Routine 02/24/2019 2:18 PM Multigravida of Result s for this NON-INVASIVE CDT advanced maternal age proced ure are in SCREENING in first trimester the results section. SURGICAL PATHOLOGY Routine 02/24/2019 1:50 PM Multigravida of Results for this EXAM CDT advanced maternal age proced ure are in in first trimester the resul ts section. documented in this encounter Results Non Invasive Test Cell Free DNA (02/24/2019 2:18 PM CDT) [facility] gist Method Time Signature Lab Scanned NON INVAS MISYS Result DNA-Scanned Specimen (Source) Anatomical Collection Method Collection Time Re ceived Time Location / / Volume Laterality Blood specimen 02/24/2019 2:18 PM (specimen) CDT Mike Martínez MD LAB - BLOOD ORDERABLES Performing Organization Address City/State/ZIP Code Phon e Number MISYS Surgical pathology exam (02/24/2019 1:50 PM CDT) Component Value Ref Test Analysis Performed At [facility] Range Method Time Signature Copath Report Patient Name: MARCELINO DALEY MR#: [id number] Specimen #: [id number] Collected: 02/24/2019 Received: 02/25/2019 Reported: 02/28/2019 08:46 Ordering Phy(s): MIKE MARTÍNEZ For improved result formatting, select 'View Enhanced Report Format' under Linked Documents section. SPECIMEN(S): Cervical polyp FINAL DIAGNOSIS: Tissue submitted as cervical polyp, polypectomy. - Consistent with ulcerated inflamed decidualized endocervic al polyp without evidence of dysplasia or malignancy. Electronically signed out by: Michele Fernandes M.D. CLINICAL HISTORY: First trimester , cervical polyp. ??Ultrasound 02/14 demonstrating intrauterine . GROSS: The specimen is received in formalin labeled with the patien t's name, identifying information and designated cervical polyp. ??It consists of a 1 cm irregular leal poly poid tissue fragment. ??Submitted entirely in one block. (Dictated by: ABILIO Ponce 02/25/2019 09:43 AM) MICROSCOPIC: The material is composed of inflamed decidualized tissue whi ch is essentially entirely denuded and ulcerated with prominent vessels. ??Rare reactive endocervical glands are focally present seen on slide level 1 consistent with an ulcerated and inflamed endocervical marta yp. ??No products of conception are identified. Clinical correlation is required. The technical component of this testing was [facility], with the professional compo nent performed at the [facility], [address] [place] [address] ??[phone] ([phone]) CPT Codes: A: 15567-LS8 COLLECTION SITE: Client: [facility] Location: EAOB (R) Specimen Anatomical Collection Method Collection Time Receive d Time (Source) Location / / Volume Laterality 02/24/2019 1:50 PM 9 8:13 CDT AM CDT Mike Martínez MD [facility] Performing Organization Address City/State/ZIP Code Phon e Number COPATH documented in this encounter Visit Diagnoses Diagnosis Multigravida of advanced maternal age in first trimester - Primary documented in this encounter Additional Health Concerns Assessment Noted Time PHQ-9 Depression Total Score: 3 12/07/2018 7:05 AM CDT documented as of this encounter Care Teams Social Security Specialist Relationship Specialty Start Date End Date Annalisa Mark APRN MANAGER PHILOSOPHY PCP - General Nurse Practitioner 03/22/15 [address] [place] [address] Annalisa Mark APRN MANAGER PHILOSOPHY Assigned PCP 06/06/18 07/02/19 [address] [place] [address] documented as of this encounter
--- OUTSIDE RECORDS SUMMARY | 2022-06-06 21:01 | XMS_ITS | Encounter Summary ---
:1985 Author Organization [place] Address Formerly [facility]0 [facility] [place] [address] Care Team Providers Name Role Phone Annalisa Mark APRN, CNP Primary Care Provider [phone] Annalisa Mark APRN AUTOMATION QA ANALYST Unavailable [phone] Reason for Visit Reason Comments Care New Nurse Visit Encounter Details Date Type Department Care Team Description 02/15/2019 Office [facility] Supervi emily of normal Visit Clinic [place] [address] [place] [address] Social History Tobacco Use Types Packs/Day [...] or relatives? How often do you attend baptist or Patient refused 2021 rastafarian services? Do you belong to any clubs or No 10/17/2021 organizations such as baptist groups, unions, fraternal or athletic groups, or [...] Sign Reading Time Taken Comments Blood Pressure 96/50 02/15/2019 12:55 PM CDT Pulse 100 02/15/2019 12:55 PM CDT Temperature - - Respiratory Rate - - Oxygen Saturation - - Inhaled Oxygen Concentration - - Weight 53.1 kg (117 lb) 02/15/2019 12:55 PM CDT Height 160.7 cm (5' 3.25) 02/15/2019 12:55 PM CDT Body Mass Index 20.56 02/15/2019 12:55 PM CDT documented in this encounter Progress Notes Pamela Velazquez RN - 02/15/2019 1:00 PM CDT Chief Complaint Patient presents with ??? Care New Nurse Visit Initial BP 96/50 (BP Location: Right arm, Cuff Size: Adult Regular) Pulse 100 Ht 1.607 m (5' 3.25) Wt 53.1 kg (117 lb) LMP 12/10/2018 ? No BMI 20.56 kg/m?? Estimated body massindex is 20.56 kg/m?? as calculated from the following: Height as of this encounter: 1.607 m (5' 3.25). Weight as of this encounter: 53.1 kg (117 lb). BP completed using cuff size: regular Questioned patient about current smoking habits. Pt. has never smoked. book and folder (containing standard educational hand-outs and brochures) given to patient. Information in folder reviewed. Questions answered. Brochure given on optional screening available to assess chromosomal anomalies. Pt advised to call the clinic if she has any questions or concerns related to her . labs obtained. New visit scheduled on 02/24/[address] Carmona. 9w4d Lab Results Component Value Date PAP NIL 04/19/2018 Patient supplied answers from flow sheet for: OB Questionnaire. Past Medical History Diabetes?: No Hypertension : No Heart disease, mitral valve prolapse or rheumatic fever?: No An autoimmune disease such as lupus or rheumatoid arthritis?: No Kidney disease or urinary tract infection?: (!) Yes(UTI's kidney infection) Epilepsy, seizures or spells?: No Migraine headaches?: (!) Yes A stroke or loss of function or sensation?: No Any other neurological problems?: (!) Yes(Fitzpatrick's Palsy age 10) Have you ever been treated for depression?: (!) Yes Are you having problems with crying spells or loss of self-esteem?: No Have you ever required psychiatric care?: (!) Yes Have you ever had hepatitis, liver disease or jaundice?: No Have you been treated for blood clots in your veins, deep vein thromosis, inflammation in the veins,thrombosis, phlebitis, pulmonary embolism or varicosities?: No Have you had excessive bleeding after surgery or dental work?: No Do you bleed more than other women after a cut or scratch?: No Do you have a history of anemia?: No Have you ever had thyroid problems or taken thyroid medication?: No Do you have any endocrine problems?: No Have you ever been in a major accident or suffered serious trauma?: No Within the last year, has anyone hit, slapped, kicked or otherwise hurt you?: No In the last year, has anyone forced you to have sex when you didn't want to?: No Past Medical History 2 Have you ever received a blood transfusion?: No Would you refuse a blood transfusion if a doctor judged it to be medically necessary?: No If you answered Yes, would you rather than receive a blood transfusion?: No If you answered Yes, is this for rastafarian reasons?: No Does anyone in your home smoke?: No Do you use tobacco products?: No Do you drink beer, wine or hard liquor?: No Do you use any of the following: marijuana, speed, cocaine, heroin, hallucinogens or other drugs?: No Is your blood type Rh negative?: No Have you ever had abnormal antibodies in your blood?: No Have you ever had asthma?: No Have you ever had tuberculosis?: No Do you have any allergies to drugs or jvif-qhp-tkepnua medications?: No Allergies: Dust Mites, Aspartame, Ethanol, Venlafaxine, Hydrochloride, Sertraline: No Have you had any breast problems?: No Have you ever breastfed?: (!) Yes Have you had any gynecological surgical procedures such as cervical conization, a LEEP procedure, laser treatment, cryosurgery of the cervix or a dilation and curettage, etc?: (!) Yes(LEEP and cryo) Have you ever had any other surgical procedures?: (S) (!) Yes(see surgical history) Have you been hospitalized for a nonsurgical reason excluding normal delivery?: No Have you ever had any anesthetic complications?: No Have you ever had an abnormal pap smear?: (!) Yes Past Medical History (Continued) Do you have a history of abnormalities of the uterus?: No Did your mother take JOSE or any other hormones when she was with you?: No Did it take you more than a year to become ?: No Have you ever been evaluated or treated for infertility?: No Is there a history of medical problems in your family, which you feel may be important to this ?: No Do you have any other problems we have not asked about which you feel may be important to this ?: No Symptoms since last menstrual period Do you have any of the following symptoms: abdominal pain, blood in stools or urine, chest pain, shortness of breath, coughing or vomiting up blood, your heart racing or skipping beats, nausea and vomiting, pain on urination or vaginal discharge or bleed: (!) Yes( nausea) Current medications, including ywxj-drr-lqzvtxj medications, you are using? (If not applicable answer none): PNV, Calcium Will the patient be 35 years old or older at the time of delivery?: (!) Yes Has the patient, baby's father or anyone in either family had: Thalassemia (Eritrean, Slovenian, Mediterranean or background only) and an MCV result less than 80?: No Neural tube defect such as meningomyelocele, spina bifida or anencephaly?: No Congenital heart defect?: No Down's Syndrome?: No Vince-Sachs disease (Lutheran, Cajun, Surinamese-[place]ahlonega)?: No Sickle cell disease or trait ()?: No Hemophilia or other inherited problems of blood?: No Muscular dystrophy?: No Cystic fibrosis?: (!) Yes(son has CF, both parents are carriers) Delta F 508 and R117HC Reno's chorea?: No Mental retardation/autism?: No If yes, was the person tested for fragile X?: No Any other inherited genetic or chromosomal disorder?: No Maternal metabolic disorder (e.g Insulin-dependent diabetes, PKU)?: No A child with defects not listed above?: No Recurrent loss or stillbirth?: No Has the patient had any medications/street drugs/alcohol since her last menstrual period?: (!) Yes(cefdinir, cephalexin, triamcinolone cream) Does the patient or baby's father have any other genetic risks?: No Infection History Do you object to being tested for Hepatitis B?: No Do you object to being tested for HIV?: No Do you feel that you are at high risk for coming in contact with the AIDS virus?: No Have you ever been treated for tuberculosis?: No Have you ever had a positive skin test for tuberculosis?: No Do you live with someone who has tuberculosis?: No Have you ever been exposed to tuberculosis?: No Do you have genital herpes?: No Does your partner have genital herpes?: No Have you had a viral illness since your last period?: No Have you ever had gonorrhea, chlamydia, syphilis, venereal warts, trichomoniasis, pelvic inflammatory disease or any other sexually transmitted disease?: (!) Yes(HPV) Do you know if you are a genital group B streptococcus carrier?: Unknown Have you had chicken pox/varicella?: (!) Yes Have you been vaccinated against chicken Pox?: No Have you had any other infectious diseases?: No Pamela Velazquez RN documented in this encounter Plan of Treatment Not on filedocumented as of this encounter Procedures Procedure Name Priority Date/Time Associated Diagnosis Comme nts WET PREPARATION Routine 02/15/2019 2:06 PM Supervision of Resu lts for this CDT normal procedure a re in the results section. NEISSERIA Routine 02/15/2019 2:05 PM Supervision of Results for this GONORRHOEAE PCR CDT normal procedur e are in the results section. CHLAMYDIA Routine 02/15/2019 2:05 PM Supervision of Results for this TRACHOMATIS PCR CDT normal procedur e are in the results section. RUBELLA ANTIBODY IGG Routine 02/15/2019 2:04 PM Supervision of Results for this CDT normal procedure a re in the results section. HIV ANTIGEN ANTIBODY Routine 02/15/2019 2:04 PM Supervision of Results for this COMBO CDT normal procedure a re in the results section. TREPONEMA ABS W Routine 02/15/2019 2:04 PM Supervision of Resu lts for this REFLEX TO RPR AND CDT normal proced ure are in TITER the results section. HEPATITIS B SURFACE Routine 02/15/2019 2:04 PM Supervision of Results for this ANTIGEN CDT normal procedure a re in the results section. ABO/RH TYPE AND Routine 02/15/2019 2:04 PM Supervision of Resu lts for this SCREEN CDT normal procedure a re in the results section. CBC WITH PLATELETS Routine 02/15/2019 2:04 PM Supervision of R esults for this CDT normal procedure a re in the results section. URINE CULTURE Routine 02/15/2019 2:03 PM Supervision of Result s for this CDT normal procedure a re in the results section. documented in this encounter Results Wet prep (02/15/2019 2:06 PM CDT) Looklet Method Time Signature Specimen Vagina [facility] Description [facility] Wet Prep WBC'S seen 02/15/2019 [facility] Rare 2:27 PM CDT [facility] Wet Prep No Trichomonas 02/15/2019 [facility] seen 2:27 PM CDT [facility] Wet Prep No clue cells 02/15/2019 [facility] seen 2:27 PM CDT [facility] Wet Prep No yeast [facility] Specimen Anatomical Collection Method Collection Time Receive d Time (Source) Location / / Volume Laterality Specimen from 02/15/2019 2:06 PM 02/16/20 19 2:07 vagina CDT PM CDT (specimen) Jacob Carmona MD LAB - MICRO GENERAL ORDERABL ES Performing Organization Address City/State/ZIP Code Phon e Number [facility] [address] [place] [address] CHLAMYDIA TRACHOMATIS PCR (02/15/2019 2:05 PM CDT) Looklet Method Time Signature Specimen Vagina 02/15/2019 [place] Description 2:07 PM CDT [facility] Chlamydia Negative NEG^Negat 02/16/2019 INFECTIOUS Trachomatis PCR liudmila 12:55 PM CDT [facility] Comment: Negative for C. trachomatis rRNA by vidal scription mediated amplification. A negative result by miniature set constructor media georgie amplification does not preclude the presence of C. trachomatis infection because results are dependent on proper and adequate collection, absence of inhibitors, and sufficient rRNA to be detected. Specimen Anatomical Collection Method Collection Time Receive d Time (Source) Location / / Volume Laterality Specimen from 02/15/2019 2:05 PM 02/16/20 19 2:06 vagina CDT PM CDT (specimen) Jacob Carmona MD LAB - MICRO GENERAL ORDERABL ES Performing Organization Address City/[facility] Phon e Number INFECTIOUS DISEASES [address] [place] [address] DIAGNOSTIC LABORATORY, [address] [address] [phone] INFECTIOUS DISEASES [address] [place] [address], A DI[facility]STIC LAB[facility]ATORY NEISSERIA GONORRHOEA PCR (02/15/2019 2:05 PM CDT) Analysis Performed At [facility] logist Time Signature Specimen Vagina 02/15/2019 [facility] 2:07 PM CDT [facility] N Gonorrhea Negative NEG^Negati 02/16/2019 INFECTIOUS PCR ve 12:55 PM CDT [facility] Comment: Negative for N. gonorrhoeae rRNA by vidal scription mediated amplification. A negative result by miniature set constructor media georgie amplification does not preclude the presence of N. gonorrhoeae infection because results are dependent on proper and adequate collection, absence of inhibitors, and sufficient rRNA to be detected. Specimen Anatomical Collection Method Collection Time Receive d Time (Source) Location / / Volume Laterality Specimen from 02/15/2019 2:05 PM 02/16/20 19 2:06 vagina CDT PM CDT (specimen) Jacob Carmona MD LAB - MICRO GENERAL ORDERABL ES Performing Organization Address City/[facility] Phon e Number INFECTIOUS DISEASES [address] [place] [address] DIAGNOSTIC LABORATORY, [address] [address] [phone] INFECTIOUS DISEASES [address] [place] [address], A DI[facility]NOSTIC LAB[facility]ATORY Hepatitis B surface antigen (02/15/2019 2:04 PM CDT) Patholo gist Method Time Signature Hep B Surface Nonreactive NR^Nonrea 02/16/2019 [facility] Agn ctive 12:02 PM CDT [facility] Specimen Anatomical Collection Method Collection Time Receive d Time (Source) Location / / Volume Laterality Blood specimen 02/15/2019 2:04 PM 019 2:05 (specimen) CDT PM CDT Jacob Carmona MD LAB - BLOOD ORDERABLES Performing Organization Address City/[facility]/ZIP Code Phon e Number [facility] [address] HIV Antigen Antibody Combo (02/15/2019 2:04 PM CDT) Patholo gist Method Time Signature HIV Antigen Nonreactive NR^Nonrea 02/16/2019 [facility] Antibody ctive 12:02 PM CDT [facility] Comment: HIV-1 p24 Ag & HIV-1/HIV-2 Ab N ot Detected Specimen Anatomical Collection Method Collection Time Receive d Time (Source) Location / / Volume Laterality Blood specimen 02/15/2019 2:04 PM 019 2:05 (specimen) CDT PM CDT Jacob Carmona MD LAB - BLOOD ORDERABLES Performing Organization Address City/[facility]/ZIP Code Phon e Number [facility] [address] (ABNORMAL) CBC with platelets (02/15/2019 2:04 PM CDT) P athologist Signature WBC 13.7 (H) 4.0 - 11.0 02/15/2019 [place] 10e9/L 3:23 PM CDT [facility] Comment: Results confirmed by repeat corazon t RBC Count 3.96 3.8 - 5.2 10e12/L 02/15/2019 3:23 PM CDT [facility] Hemoglobin 12.4 11.7 - 15.7 g/dL 02/15/2019 3:23 PM CDT [facility] Hematocrit 37.2 35.0 - 47.0 % 02/15/2019 3:23 PM CDT [facility] MCV 94 78 - 100 fl 02/15/2019 3:23 PM CDT [facility] IEW [facility] MCH 31.3 26.5 - 33.0 pg 02/15/2019 3:23 PM CDT [facility] MCHC 33.3 31.5 - 36.5 g/dL 02/15/2019 3:23 PM CDT [facility] RDW 12.5 10.0 - 15.0 % 02/15/2019 3:23 PM CDT [facility] Platelet Count 239 150 - 450 10e9/L 02/15/2019 3:23 PM CDT [facility] Specimen Anatomical Collection Method Collection Time Receive d Time (Source) Location / / Volume Laterality Blood specimen 02/15/2019 2:04 PM 019 2:05 (specimen) CDT PM CDT Jacob Carmona MD LAB - BLOOD ORDERABLES Performing Organization Address City/[facility]/ZIP Code Phon e Number [facility] [address] [place] [address] ABO/Rh type and screen (02/15/2019 2:04 PM CDT) Patholo gist Method Time Signature ABO A 02/15/2019 [place] 5:39 PM CDT [facility] RH(D) Pos [facility] Antibody Neg 02/15/2019 [place] Screen 5:39 PM [facility] Test Valid [place] 02/15/2019 [facility] Only At [facility] 5:40 PM [facility] Specimen 02/18/2019 02/15/2019 [place] Expires 5:40 PM CDT [facility] Specimen Anatomical Collection Method Collection Time Receive d Time (Source) Location / / Volume Laterality Blood specimen 02/15/2019 2:04 PM 019 2:05 (specimen) CDT PM CDT Jacob Carmona MD LAB - BLOOD BANK TEST ORDER Performing Organization Address City/[facility]/ZIP [facility] Phon e Number [facility] [address] [place], [place] [address] [facility] [address] [place], [place] [address] [phone] Rubella Antibody IgG Quantitative (02/15/2019 2:04 PM [...] LAB - BLOOD ORDERABLES Performing Organization Address City/[facility] Phon e Number INFECTIOUS DISEASES [address] [place] [address] DIAGNOSTIC LABORATORY, [facility] INFECTIOUS DISEASES [address] [place] [address], A DIAGNOSTIC LABORATORY Treponema Abs w Reflex to RPR and [...] LAB - BLOOD ORDERABLES Performing Organization Address City/[facility] Code Phon e Number INFECTIOUS DISEASES [address] [place] [address] DIAGNOSTIC LABORATORY, [facility] INFECTIOUS DISEASES [address] [place] [address], A DIAGNOSTIC LABORATORY Urine Culture Aerobic Bacterial (02/15/2019 2:03 PM CDT) Patholo gist Method Time Signature Specimen Midstream [facility] Description Urine [facility] Culture Micro No growth 02/18/2019 [facility] 1:58 PM CDT [facility] Specimen (Source) Anatomical Collection Method Collection Time Re ceived Time Location / / Volume Laterality Examination of 02/15/2019 2:03 02/15/2019 2:04 midstream urine PM CDT PM CDT specimen (procedure) Jacob Carmona MD LAB - MICRO GENERAL ORDERABL ES Performing Organization Address City/[facility]/ZIP Code Phon e Number [facility] [address] [place] [address] documented in this encounter Visit Diagnoses Diagnosis Supervision of normal Supervision of other normal documented in this encounter Additional Health Concerns Assessment Noted Time PHQ-9 Depression Total Score: 3 12/07/2018 7:05 AM CDT documented as of this encounter Care Teams Plastic Installer Relationship Specialty Start Date End Date Annalisa Mark APRN AUTOMATION QA ANALYST PCP - General Nurse Practitioner 03/22/15 [address] [place], [place] [id number] Annalisa Mark APRN AUTOMATION QA ANALYST Assigned PCP 06/06/18 07/02/19 [address] [place], [place] [id number] documented as of this encounter
--- OUTSIDE RECORDS SUMMARY | 2022-06-06 21:01 | XMS_ITS | Encounter Summary ---
:1985 Author Organization [place] Address [address] [place], [place] [address]. [place] [address] Care Team Providers Name Role Phone Annalisa Mark APRN, CNP Primary Care Provider [phone] Annalisa Mark APRN TRANSMISSION LINE ENGINEER Unavailable [phone] Encounter Details Date Type Department Care Team Description 02/15/2019 Travel Social History Tobacco Use Types Packs/Day [...] you attend voodoo or Patient refused 2021 jewish services? Do [...] documented as of this encounter Care Teams Yarder Relationship Specialty Start Date End Date Annalisa Mark APRN TRANSMISSION LINE ENGINEER PCP - General Nurse Practitioner 03/22/15 [address] [place] [address] Annalisa Mark APRN TRANSMISSION LINE ENGINEER Assigned PCP 06/06/18 07/02/19 [address] [place] [address] documented as of this encounter
--- OUTSIDE RECORDS SUMMARY | 2022-06-06 21:01 | XMS_ITS | Encounter Summary ---
:1985 Author Organization [place] Address [facility] [place] [address] Care Team Providers Name Role Phone Deedee Annalisa Peacock APRN, CNP Primary Care Provider [phone] Annalisa Mark APRN CHIEF OPERATOR LOCK TENDER Unavailable [phone] Reason for Visit Reason Comments Care Encounter Details Date Type Department Care Team Description 03/25/2019 Office [facility] Jacob Carmona of Visit Clinic Deborah Hardy MD advanced maternal [address] [facility] age in [place], [place] trimester (Primary [phone] Dx) [facility] [phone] (Wo rk) [address] [phone] Social History Tobacco Use Types Packs/Day Years [...] or relatives? How often do you attend alevism or Patient refused 2021 adventism services? Do you belong to any clubs or No 10/17/2021 organizations such as alevism groups, unions, fraternal or athletic groups, or [...] Sign Reading Time Taken Comments Blood Pressure 90/58 03/25/2019 2:06 PM CDT Pulse - - Temperature - - Respiratory Rate - - Oxygen Saturation - - Inhaled Oxygen Concentration - - Weight 54.7 kg (120 lb 11.2 oz) 03/25/2019 2:06 PM CDT Height - - Body Mass Index 21.21 02/15/2019 12:55 PM CDT documented in this encounter Progress Notes Jacob Carmona MD - 03/25/2019 2:00 PM CDT IUP at 15w here for routine visit. AMA with nl innatal Girl. Genetic counseling received due to a son with cystic fibrosis. Declines specific CF testing due to cost and it would not spinning frame changer of . RTC 4 weeks documented in this encounter Nursing Notes Kerri Roa CMA - 03/25/2019 2:00 PM CDT Chief Complaint Patient presents with ??? Care 15w0d initial BP 90/58 Wt 54.7 kg (120 lb 11.2 oz) LMP 12/10/2018 BMI 21.21 kg/m?? Estimated body mass index is 21.21 kg/m?? as calculated from the following: Height as of 02/15/19: 1.607 m (5' 3.25). Weight as of this encounter: 54.7 kg (120 lb 11.2 oz). BP completed using cuff [...] documented as of this encounter Care Teams Product Development Actuary Relationship Specialty Start Date End Date Annalisa Mark APRN CHIEF OPERATOR LOCK TENDER PCP - General Nurse Practitioner 03/22/15 [address] [place], [place] [id number] Annalisa Mark APRN CHIEF OPERATOR LOCK TENDER Assigned PCP 06/06/18 07/02/19 [address] [place], [place] [phone] documented as of this encounter
--- OUTSIDE RECORDS SUMMARY | 2022-06-06 21:02 | XMS_ITS | Encounter Summary ---
:1985 Author Organization [place] Address [facility] [place] [address] Care Team Providers Name Role Phone DeedeeAnnalisa APRN, CNP Primary Care Provider [phone] Leonor Burgos MD Unavailable [phone] Reason for Visit Reason Comments Dizziness Encounter Details Date Type Department Care Team Description 06/04/[address] [facility] DeedeeSwapna deanan Dizziness (Primary Dx) Clinic [place] JADEN Peacock S[employer]ING INSTALLER [address] [id number] [phone] Social History Tobacco Use Types Packs/Day Years [...] you attend bahai or Patient refused 2021 hindu services? Do [...] Sign Reading Time Taken Comments Blood Pressure 117/74 06/04/2018 4:11 PM CRIMINAL JUSTICE PROFESSOR Pulse 86 06/04/2018 3:38 PM CRIMINAL JUSTICE PROFESSOR Temperature 36.5 ??C (97.7 ??F) 06/04/2018 3:38 PM CRIMINAL JUSTICE PROFESSOR Respiratory Rate 12 06/04/2018 3:38 PM CRIMINAL JUSTICE PROFESSOR Oxygen Saturation 100% 06/04/2018 3:38 PM CRIMINAL JUSTICE PROFESSOR Inhaled Oxygen Concentration - - Weight 51.7 kg (114 lb) 06/04/2018 3:38 PM CRIMINAL JUSTICE PROFESSOR Height - - Body Mass Index 20.19 04/19/2018 2:38 PM CDT documented in this encounter Progress Notes Annalisa Mark APRN CNP - 06/06/2018 3:55 PM CST Ben English, Here are the lab results that we discussed yesterday, your TSH (thyroid hormone) is normal. Your glucose is low at 47. We will see you tomorrow morning to repeat your labs. Sincerely, Annalisa Mark CNP INAL JUSTICE PROFESSOR Annalisa Mark APRN CNP - 06/04/2018 3:45 PM CST SUBJECTIVE: Tameka Grissom is a 33 year old female who presents to clinic today for the following health issues: Dizziness ?? Duration: 1 week ?? Description Feeling faint: no Feeling like the surroundings are moving: no Loss of consciousness or falls: no ?? Intensity: moderate ?? Accompanying signs and symptoms: Nausea/vomiting: YES Palpitations: no Weakness in arms or legs: no Vision or speech changes: no Ringing in ears (Tinnitus): no Hearing loss related to dizziness: no Other (fevers/chills/sweating/dyspnea): no ?? History (similar episodes/head trauma/previous evaluation/recent bleeding): None ?? Precipitating or alleviating factors (new meds/chemicals): None Worse with activity/head movement: no ?? Therapies tried and outcome: None Dizziness started this week. Occurs in any position and states it feels like she is drunk. Suspected possibly initially but started her menses cycle this week. This would be her first periodsince stopping her control two months ago (March). She did not get a period in April either. She denies body aches, fevers, or chills. She notes last week had chest pain-like symptoms. Her anxiety has also been heightened as well with home and work stressors. Her sleep is not stable as well. Her fluid intake is not much either and has had decreased appetite. She denies other symptoms suchas vomiting, congestion, ear pain. She denies significant weight loss. Problem list and histories reviewed & adjusted, as indicated. Additional history: as documented Patient Active Problem List Diagnosis ??? Mild major depression (H) ??? CARDIOVASCULAR SCREENING; LDL GOAL LESS THAN 160 ??? H/O LEEP ??? History of OCD (obsessive compulsive disorder) ??? Generalized anxiety disorder Past Surgical History: Procedure Laterality Date ??? C NONSPECIFIC PROCEDURE rt brest biopsy,benign ??? COLPOSCOPY CERVIX, LOOP ELECTRODE BIOPSY, COMBINED 04/24/09 PEDRO I & II ??? CRYOTHERAPY 04/04/08, 12/14/08 Social History Substance Use Topics ??? Smoking status: Never Smoker ??? Smokeless tobacco: Never Used ??? Alcohol use No Comment: Occaisional Family History Problem Relation Age of Onset ??? Arthritis Mother degenerative in knees ??? Lipids Mother ??? Alcohol/Drug Mother ??? Lipids Father ??? Family History Negative Sister ??? Family History Negative Brother ??? Breast Cancer Other paternal aunt No current outpatient prescriptions on file. Allergies Allergen Reactions ??? No Known Drug Allergies Recent Labs Lab Test 04/21/17 2213 11/15/16199905/28/12 1051 LDL -- -- 95 HDL -- -- 86 TRIG -- -- 86 ALT 32 17 -- CR 0.79 0.68 -- GFRESTIMATED 84 >90 Non GFR Calc -- GFRESTBLACK >90 >90 GFR Calc -- POTASSIUM 3.8 3.7 -- BP Readings from Last 3 Encounters: 06/04/18 117/74 04/19/18 102/60 11/26/17 91/64 Wt Readings from Last 3 Encounters: 06/04/18 114 lb (51.7 kg) 04/19/18 114 lb 3.2 oz (51.8 kg) 11/26/17 114 lb (51.7 kg) Reviewed and updated as needed this visit by clinical staff Tobacco Allergies Meds Med Hx Surg Hx Fam Hx Soc Hx Reviewed and updated as needed this visit by Provider ROS: Constitutional, HEENT, cardiovascular, pulmonary, neuro, endocrine and psych systems are negative, except as otherwise noted. This document serves as a record of the services and decisions personally performed and made by Annalisa Mark APRN CNP. It was created on her behalf by Charisma Fofana, a trained biomedical equipment tech. The creation of this document is based on the scribe's personal observations and the provider's statements to the biomedical equipment tech. Charisma Fofana, June 04, 2018 3:43 PM OBJECTIVE: BP 117/74 (BP Location: Left arm, Patient Position: Sitting, Cuff Size: Adult Regular) Pulse 86 Temp 97.7 ??F (36.5 ??C) (Oral) Resp 12 Wt 114 lb (51.7 kg) SpO2 100% BMI 20.19 kg/m2 Body mass index is 20.19 kg/(m^2). GENERAL: healthy, alert and no distress HENT: [...] rub, no peripheral edemaand peripheral pulses strong NEURO: Normal strength and tone, mentation intact and speech normal PSYCH: mentation appears normal, affect normal/bright Diagnostic Test Results: Results for orders placed or performed in visit on 06/04/18 (from the past 24 hour(s)) CBC with platelets differential Result Value Ref Range WBC 10.1 4.0 - 11.0 10e9/L RBC Count 3.99 3.8 - 5.2 10e12/L Hemoglobin 12.4 11.7 - 15.7 g/dL Hematocrit 37.6 35.0 - 47.0 % MCV 94 78 - 100 fl MCH 31.1 26.5 - 33.0 pg MCHC 33.0 31.5 - 36.5 g/dL RDW 12.0 10.0 - 15.0 % Platelet Count 189 150 - 450 10e9/L % Neutrophils 65.5 % % Lymphocytes 27.6 % % Monocytes 4.9 % % Eosinophils 1.8 % % Basophils 0.2 % Absolute Neutrophil 6.6 1.6 - 8.3 10e9/L Absolute Lymphocytes 2.8 0.8 - 5.3 10e9/L Absolute Monocytes 0.5 0.0 - 1.3 10e9/L Absolute Eosinophils 0.2 0.0 - 0.7 10e9/L Absolute Basophils 0.0 0.0 - 0.2 10e9/L Diff Method Automated Method HCG Qual, Blood ([id number]) Result Value Ref Range HCG Qualitative Serum Negative NEG^Negative ASSESSMENT/PLAN: Tameka was seen today for dizziness. Diagnoses and all orders for this visit: Dizziness: numerous possible causes including , fluid volume deficit, stress, thyroid/metabolic issues, anemia. When patient was here informed CBC with normal results and HCG negative. Discussed increasing fluid over the weekend to at least 8 glasses per day, increase rest. Will follow up With me on 06/07 via [employer] message. If labs all normal may be interested in starting on a medication for anxiety. - CBC with platelets differential - Comprehensive metabolic panel - TSH with free T4 reflex - HCG Qual, Blood ([id number]) Follow up in 3 days, sooner as needed. The information in this document, created by the biomedical equipment tech for me, accurately reflects the services I personally performed and the decisions made by me. I have reviewed and approved this document for accuracy prior to leaving the patient care area. Annalisa Mark APRN CNP [facility] INAL JUSTICE PROFESSOR documented in this encounter Plan of Treatment Not on filedocumented as of this encounter Procedures Procedure Name Priority Date/Time Associated Comments Diagnosis CBC WITH PLATELETS & Routine 06/04/2018 3:50 PM Dizziness R esults for this DIFFERENTIAL CRIMINAL JUSTICE PROFESSOR procedure are i n the results section. TSH WITH FREE T4 Routine 06/04/2018 3:50 PM Dizziness Resul ts for this REFLEX CRIMINAL JUSTICE PROFESSOR procedure are i n the results section. HCG QUALITATIVE Routine 06/04/2018 3:50 PM Dizziness Result s for this CRIMINAL JUSTICE PROFESSOR procedure are i n the results section. COMPREHENSIVE Routine 06/04/2018 3:50 PM Dizziness Results for this METABOLIC PANEL CRIMINAL JUSTICE PROFESSOR procedure ar e in the results section. documented in this encounter Results HCG Qual, Blood ([id number]) (06/04/2018 3:50 PM CRIMINAL JUSTICE PROFESSOR) [facility] Method Time Signature HCG Qualitative Negative NEG^Negati 06/04/2018 [place] Serum ve 4:21 PM CRIMINAL JUSTICE PROFESSOR [facility] Comment: This test is for screening purposes. ??R esults should be interpreted along with the clinical picture. ??Confirmation te sting is available if warranted by ordering [id number], HCG Quantitative Pregna ncy. Specimen Anatomical Collection Method Collection Time Receive d Time (Source) Location / / Volume Laterality Blood specimen 06/04/2018 3:50 PM 018 3:51 (specimen) CRIMINAL JUSTICE PROFESSOR PM CRIMINAL JUSTICE PROFESSOR Annalisa Mark APRN [facility] - BLOOD ORDERABLES Performing Organization Address [facility]/ZIP Code Phon e Number [facility] [address] [place] [address] TSH with free T4 reflex (06/04/2018 3:50 PM CRIMINAL JUSTICE PROFESSOR) athologist Signature TSH 1.85 0.40 - 4.00 06/05/2018 [facility] mU/L 2:21 PM CRIMINAL JUSTICE PROFESSOR [facility] Specimen Anatomical Collection Method Collection Time Receive d Time (Source) Location / / Volume Laterality Blood specimen 06/04/2018 3:50 PM 018 3:51 (specimen) CRIMINAL JUSTICE PROFESSOR PM CRIMINAL JUSTICE PROFESSOR Annalisa Mark APRN [facility] - BLOOD ORDERABLES Performing Organization Address City/[facility]/ZIP Code Phon e Number [facility] [address] [place] [address] (ABNORMAL) Comprehensive metabolic panel (06/04/2018 3:50 PM CRIMINAL JUSTICE PROFESSOR) [facility] Method Time Signature Sodium 141 133 - 144 06/05/2018 [place] mmol/L 2:21 [address] CRIMINAL JUSTICE PROFESSOR [facility] Potassium 3.9 3.4 - 5.3 06/05/2018 [place] mmol/L 2:21 PM [facility] Chloride 106 94 - 109 06/05/2018 [facility] mmol/L 2:21 PM [facility] Carbon Dioxide 27 20 - 32 06/05/2018 [facility] mmol/L 2:21 PM [facility] Anion Gap 8 3 - 14 06/05/2018 [facility] mmol/L 2:21 PM [facility] Glucose 47 (LL) 70 - 99 06/05/2018 [facility] mg/dL 2:21 PM [facility] Urea Nitrogen 12 7 - 30 06/05/2018 [facility] mg/dL 2:21 PM [facility] Creatinine 0.84 0.52 - 06/05/2018 [facility] 1.04 mg/dL 2:21 PM [facility] GFR Estimate 77 >60 06/05/2018 [facility] mL/min/1.7 2:[address] Comment: Non GFR Calc GFR Estimate If >90 >60 mL/min/1.7m2 06/05/2018 2:21 P M [facility] Black [facility] Comment: GFR Calc Calcium 8.9 8.5 - 10.1 06/05/2018 2:21 PM [facility] mg/dL [facility] Bilirubin Total 0.3 0.2 - 1.3 mg/dL 06/05/2018 2:[address] [facility] Albumin 4.0 3.4 - 5.0 g/dL 06/05/2018 2:21 PM [facility] Protein Total 7.1 6.8 - 8.8 g/dL 06/05/2018 2:21 PM [facility] Alkaline Phosphatase 73 40 - 150 U/L 06/05/2018 2:21 PM [facility] ALT 27 0 - 50 U/L 06/05/2018 2:21 PM [facility] AST 19 0 - 45 U/L 06/05/2018 2:21 PM [facility] [facility] Specimen Anatomical Collection Method Collection Time Receive d Time (Source) Location / / Volume Laterality Blood specimen 06/04/2018 3:50 PM 018 3:51 (specimen) CRIMINAL JUSTICE PROFESSOR PM CRIMINAL JUSTICE PROFESSOR Annalisa Mark APRN [employer] LAB - BLOOD ORDERABLES Performing Organization Address City/State/ZIP Code Phon e Number [facility] [address] [place] [address] CBC with platelets differential (06/04/2018 3:50 PM CRIMINAL JUSTICE PROFESSOR) [facility] Method Time Signature WBC 10.1 4.0 - 06/04/2018 [facility] 11.0 4:17 PM CRIMINAL JUSTICE PROFESSOR CLINICS 10e9/L [place] RBC Count 3.99 3.8 - 5.2 06/04/2018 [facility] 10e12/L 4:17 PM CRIMINAL JUSTICE PROFESSOR [facility] [place] Hemoglobin 12.4 11.7 - 06/04/2018 [facility] 15.7 g/dL 4:17 PM CRIMINAL JUSTICE PROFESSOR [facility] [place] Hematocrit 37.6 35.0 - 06/04/2018 [facility] 47.0 % 4:17 PM CRIMINAL JUSTICE PROFESSOR [facility] [place] MCV 94 78 - 100 06/04/2018 [facility] fl 4:17 PM CRIMINAL JUSTICE PROFESSOR [facility] [place] MCH 31.1 26.5 - 06/04/2018 [facility] 33.0 pg 4:17 PM CRIMINAL JUSTICE PROFESSOR [facility] [place] MCHC 33.0 31.5 - 06/04/2018 [facility] 36.5 g/dL 4:17 PM CRIMINAL JUSTICE PROFESSOR [facility] [place] RDW 12.0 10.0 - 06/04/2018 [facility] 15.0 % 4:17 PM CRIMINAL JUSTICE PROFESSOR [facility] [place] Platelet Count 189 150 - 450 06/04/2018 [facility] 10e9/L 4:17 PM CRIMINAL JUSTICE PROFESSOR [facility] [place] % Neutrophils 65.5 % 06/04/2018 [facility] 4:17 PM CRIMINAL JUSTICE PROFESSOR [facility] [place] % Lymphocytes 27.6 % 06/04/2018 [facility] 4:17 PM CRIMINAL JUSTICE PROFESSOR [facility] [place] % Monocytes 4.9 % 06/04/2018 [facility] 4:17 PM CRIMINAL JUSTICE PROFESSOR [facility] [place] % Eosinophils 1.8 % 06/04/2018 [facility] 4:17 PM CRIMINAL JUSTICE PROFESSOR [facility] [place] % Basophils 0.2 % 06/04/2018 [facility] 4:17 PM CRIMINAL JUSTICE PROFESSOR [facility] [place] Absolute 6.6 1.6 - 8.3 06/04/2018 [facility] Neutrophil 10e9/L 4:17 PM CRIMINAL JUSTICE PROFESSOR [facility] [place] Absolute 2.8 0.8 - 5.3 06/04/2018 [facility] Lymphocytes 10e9/L 4:17 PM CRIMINAL JUSTICE PROFESSOR [facility] Absolute 0.5 0.0 - 1.3 06/04/2018 [facility] Monocytes 10e9/L 4:17 PM CRIMINAL JUSTICE PROFESSOR [facility] Absolute 0.2 0.0 - 0.7 06/04/2018 [facility] Eosinophils 10e9/L 4:17 PM CRIMINAL JUSTICE PROFESSOR [facility] Absolute 0.0 0.0 - 0.2 06/04/2018 [facility] Basophils 10e9/L 4:17 PM CRIMINAL JUSTICE PROFESSOR [facility] Diff Method Automated 06/04/2018 [facility] Method 4:17 PM CRIMINAL JUSTICE PROFESSOR [facility] Specimen Anatomical Collection Method Collection Time Receive d Time (Source) Location / / Volume Laterality Blood specimen 06/04/2018 3:50 PM 018 3:51 (specimen) CRIMINAL JUSTICE PROFESSOR PM CRIMINAL JUSTICE PROFESSOR Annalisa Mark APRN [employer] LAB - BLOOD ORDERABLES Performing Organization Address City/State/ZIP Code Phon e Number [facility] [address] [place] [address] documented in this encounter Visit Diagnoses Diagnosis Dizziness - Primary Dizziness and giddiness documented in this encounter Additional Health Concerns Assessment Noted Time PHQ-9 Depression Total Score: 7 06/04/2018 3:40 PM CRIMINAL JUSTICE PROFESSOR documented as of this encounter Care Teams Punch Machine Hand Relationship Specialty Start Date End Date Annalisa Mark APRN PCP - General Nurse Practitioner 03/22/15 [employer] [address] [place] [address] Leonor Burgos PCP - Assigned PCP 12/13/17 1 08/05/17 MD [place] [id number] [place], [place] [id number] documented as of this encounter
--- OUTSIDE RECORDS SUMMARY | 2022-06-06 21:02 | XMS_ITS | Encounter Summary ---
:1985 Author Organization [place] Address [facility] [place] [address] Care Team Providers Name Role Phone Annalisa Mark APRN, CNP Primary Care Provider [phone] Annalisa Mark APRN LOCOMOTIVE ENGINEER ELECTRIC Unavailable Reason for Visit Reason Comments RECHECK Encounter Details Date Type Department Care Team Description 12/06/2018 Office Visit [facility] Annalisa Mark otit is externa of left ear, unspecified type (Primary Dx); Clinic [place] [facility] JADEN Peacock CARDIOVASCULAR SCREENING; LD L GOAL LESS THAN 160; [address] [facility] LOCOMOTIVE ENGINEER [place] [address] [facility] [address] [place], [place] [phone] [id number] Social History Tobacco Use Types Packs/Day Years [...] you attend anglican or Patient refused 2021 scientology services? Do [...] Sign Reading Time Taken Comments Blood Pressure 110/78 12/06/2018 7:48 AM CDT Pulse 90 12/06/2018 7:48 AM CDT Temperature 36.5 ??C (97.7 ??F) 12/06/2018 7:48 AM CDT Respiratory Rate 12 12/06/2018 7:48 AM CDT Oxygen Saturation 100% 12/06/2018 7:48 AM CDT Inhaled Oxygen Concentration - - Weight 49.4 kg (109 lb) 12/06/2018 7:48 AM CDT Height - - Body Mass Index 19.31 04/19/2018 2:38 PM CDT documented in this encounter Progress Notes Annalisa Mark, JADEN LOCOMOTIVE ENGINEER ELECTRIC - 12/06/2018 7:45 AM CDT SUBJECTIVE: Tameka Grissom is a 33 year old female who presents to clinic today for the following health issues: ED/UC Followup: Facility: [facility] Date of visit: 12/02/2018 Reason for visit: ear pain Current Status: no improvement Seen in UC on , started on ear cipro gtts. Continues to have left ear pain, throbbing and purulent draining. Taking ibuprofen for pain control. Additional history: as documented Reviewed and updated as needed this visit by clinical staff Reviewed and updated as needed this visit by Provider Patient Active Problem List Diagnosis ??? Mild [...] Used Substance Use Topics ??? Alcohol use: No Alcohol/week: 0.0 oz Comment: Occaisional Family History Problem Relation Age of Onset ??? Arthritis Mother degenerative in knees ??? Lipids Mother ??? Alcohol/Drug Mother ??? Lipids Father ??? Family History Negative Sister ??? Family History Negative Brother ??? Breast Cancer Other paternal aunt Current Outpatient Medications Medication Sig Dispense Refill ??? ofloxacin (FLOXIN) 0.3 % otic solution Place 5 drops Into the left ear daily for 7 days 2 mL 0 Allergies Allergen Reactions ??? No Known Drug Allergies ROS: CONSTITUTIONAL: NEGATIVE for fever, chills, change in weight ENT/MOUTH: NEGATIVE mouth and throat problems. See HPI RESP: NEGATIVE for significant cough or SOB CV: NEGATIVE for chest pain, palpitations or peripheral edema PSYCHIATRIC: NEGATIVE for changes in mood or affect OBJECTIVE: BP 110/78 (BP Location: Right arm, Patient Position: Chair, Cuff Size: Adult Regular) Pulse 90 Temp 97.7 ??F (36.5 ??C) (Oral) Resp 12 Wt 49.4 kg (109 lb) SpO2 100% BMI 19.31 kg/m?? Body mass index is 19.31 kg/m??. GENERAL: healthy, alert and no distress HENT: left ear canal with purulent drainage and slight erythema, able to visualize TM. Right external ear canal normal. Left TM with erythema and retraction, right TM normal. nose and mouth without ulcers or lesions NECK: no adenopathy, no asymmetry, masses, or scars and thyroid normal to palpation RESP: lungs clear to auscultation - no rales, rhonchi or wheezes CV: regular rate and rhythm, normal S1 S2, no S3 or S4, no murmur, click or rub, no peripheral edema PSYCH: mentation appears normal, affect normal/bright ASSESSMENT: See below PLAN: Tameka was seen today for recheck. Diagnoses and all orders for this visit: Acute otitis externa of left ear, unspecified type: Due to increased pain, drainage will start on oral cipro, if pain increases follow up in next 24 hours or go to ED. - ciprofloxacin (CIPRO) 500 MG tablet; Take 1 tablet (500 mg) by mouth 2 times daily CARDIOVASCULAR SCREENING; LDL GOAL LESS THAN 160 - CBC with platelets differential; Future - Lipid panel reflex to direct LDL Fasting; Future Other fatigue - CBC with platelets differential; Future - Comprehensive metabolic panel; Future - TSH with free T4 reflex; Future - Vitamin D Deficiency; Future Follow up in next 24 hours if pain worsens or go to ED Annalisa Mark APRN CNP [facility] documented in this encounter Plan of Treatment Not on filedocumented as of this encounter Results Vitamin D Deficiency (12/08/2018 8:05 AM CDT) athologist Signature Vitamin D 41 20 - 75 12/08/2018 [facility] ug/L 4:24 PM CDT [facility] Comment: Season, race, dietary intake, and treatm ent affect the concentration of 65-zkasrls-Iyzfadm D. Values may decreas e during winter [...] Location / / Volume Laterality Blood specimen 12/08/2018 8:05 AM 019 8:06 (specimen) CDT AM CDT Annalisa Mark APRN, CNP LAB - BLOOD ORDERABLES Performing Organization Address City/State/ZIP Code Phon e Number [phone] [place] [address] TSH with free T4 reflex (12/08/2018 8:05 AM CDT) athologist Signature TSH 0.83 0.40 - 4.00 12/09/2018 [facility] mU/L 6:23 PM CDT [facility] Specimen Anatomical Collection Method Collection Time Receive d Time (Source) Location / / Volume Laterality Blood specimen 12/08/2018 8:05 AM 019 8:06 (specimen) CDT AM CDT Annalisa Mark APRN, CNP LAB - BLOOD ORDERABLES Performing Organization Address City/State/ZIP Code Phon e Number [facility] [address] [place] [address] (ABNORMAL) Lipid panel reflex to direct LDL Fasting (12/08/2018 8:05 AM CDT) P athologist Signature Cholesterol 189 <200 mg/dL 12/09/2018 [facility] 6:12 PM CDT [facility] Triglycerides 54 <150 mg/dL 12/09/2018 [facility] 6:12 PM CDT [facility] Comment: Fasting specimen HDL Cholesterol 73 >49 mg/dL 12/09/2018 6:14 PM [facility] CDT [place] LDL Cholesterol 105 (H) <100 mg/dL 12/09/2018 6:14 PM [facility] Comment: Above desirable: ??100-129 mg/dl Borderline High: ??130-159 mg/dL High: ? 160-189 mg/dL Very high: ? >189 mg/dl Non HDL Cholesterol 116 <130 mg/dL 12/09/2018 6:14 PM CDT [facility] Specimen Anatomical Collection Method Collection Time Receive d Time (Source) Location / / Volume Laterality Blood specimen 12/08/2018 8:05 AM 019 8:06 (specimen) CDT AM CDT Annalisa Mark ENDODONTICS DENTIST LOCOMOTIVE ENGINEER ELECTRIC LAB - BLOOD ORDERABLES Performing Organization Address [facility]/ZIP Code Phon e Number [facility] [address] [place] [address] Comprehensive metabolic panel (12/08/2018 8:05 AM CDT) P athologist Signature Sodium 138 133 - 144 12/09/2018 [facility] mmol/L 6:05 PM CDT [facility] Potassium 4.4 3.4 - 5.3 12/09/2018 [facility] mmol/L 6:05 PM CDT [facility] Chloride 106 94 - 109 12/09/2018 [place] mmol/L 6:05 PM CDT [facility] Carbon Dioxide 27 20 - 32 12/09/2018 [place] mmol/L 6:12 PM [facility] Anion Gap 5 3 - 14 12/09/2018 [place] mmol/L 6:12 PM [facility] Glucose 80 70 - 99 12/09/2018 [place] mg/dL 6:12 PM [facility] Comment: Fasting specimen Urea Nitrogen 14 7 - 30 mg/dL 12/09/2018 6:12 PM [facility] Creatinine 0.78 0.52 - 1.04 mg/dL 12/09/2018 6:12 PM [facility] GFR Estimate >90 >60 12/09/2018 6:12 PM [facility] mL/min/{1.73_m2} [place] Comment: Non GFR Calc Starting 07/13/2018, serum creatinine ba sed estimated GFR (eGFR) will be calculated using the Chronic Kidney Dise [facility] Epidemiology Collaboration (CKD-EPI) equation. GFR Estimate If >90 >60 mL/min/{1.73_m2} 12/09/2018 6: 12 PM [facility] Black [facility] Comment: GFR Calc Starting 07/13/2018, serum creatinine ba sed estimated GFR (eGFR) will be calculated using the Chronic Kidney Dise [facility] Epidemiology Collaboration (CKD-EPI) equation. Calcium 9.0 8.5 - 10.1 mg/dL 12/09/2018 6:12 PM [facility] Bilirubin Total 0.6 0.2 - 1.3 mg/dL 12/09/2018 6:15 PM [facility] Albumin 4.4 3.4 - 5.0 g/dL 12/09/2018 6:15 PM [facility] Protein Total 7.6 6.8 - 8.8 g/dL 12/09/2018 6:15 PM [facility] Alkaline Phosphatase 72 40 - 150 U/L 12/09/2018 6:15 PM [facility] ALT 29 0 - 50 U/L 12/09/2018 6:15 PM [facility] AST 16 0 - 45 U/L 12/09/2018 6:15 PM [facility] Specimen Anatomical Collection Method Collection Time Receive d Time (Source) Location / / Volume Laterality Blood specimen 12/08/2018 8:05 AM 019 8:06 (specimen) CDT AM CDT Annalisa Mark APRN LOCOMOTIVE ENGINEER ELECTRIC LAB - BLOOD ORDERABLES Performing Organization Address City/State/ZIP Code Phon e Number [facility] [address] [place] [address] CBC with platelets differential (12/08/2018 8:05 AM CDT) [facility] gist Method Time Signature WBC 8.8 4.0 - 12/08/2018 [facility] 11.0 8:21 AM CDT [facility] 10e9/L [place] RBC Count 4.47 3.8 - 5.2 12/08/2018 [facility] 10e12/L 8:21 AM CDT [facility] [place] Hemoglobin 13.9 11.7 - 12/08/2018 [facility] 15.7 g/dL 8:21 AM CDT [facility] [place] Hematocrit 41.5 35.0 - 12/08/2018 [facility] 47.0 % 8:21 AM CDT [facility] [place] MCV 93 78 - 100 12/08/2018 [facility] fl 8:21 AM CDT [facility] [place] MCH 31.1 26.5 - 12/08/2018 [facility] 33.0 pg 8:21 AM CDT [facility] [place] MCHC 33.5 31.5 - 12/08/2018 [facility] 36.5 g/dL 8:21 AM CDT [facility] [place] RDW 12.4 10.0 - 12/08/2018 [facility] 15.0 % 8:21 AM CDT [facility] [place] Platelet Count 205 150 - 450 12/08/2018 [facility] 10e9/L 8:21 AM CDT [facility] [place] % Neutrophils 58.5 % 12/08/2018 [facility] 8:21 AM CDT [facility] [place] % Lymphocytes 34.7 % 12/08/2018 [facility] 8:21 AM CDT [facility] [place] % Monocytes 5.6 % 12/08/2018 [facility] 8:21 AM CDT [facility] [place] % Eosinophils 0.9 % 12/08/2018 [facility] 8:21 AM CDT [facility] [place] % Basophils 0.3 % 12/08/2018 [facility] 8:21 AM CDT [facility] [place] Absolute 5.2 1.6 - 8.3 12/08/2018 [facility] Neutrophil 10e9/L 8:21 AM CDT [facility] Absolute 3.1 0.8 - 5.3 12/08/2018 [facility] Lymphocytes 10e9/L 8:21 AM CDT [facility] Absolute 0.5 0.0 - 1.3 12/08/2018 [facility] Monocytes 10e9/L 8:21 AM CDT [facility] Absolute 0.1 0.0 - 0.7 12/08/2018 [facility] Eosinophils 10e9/L 8:21 AM CDT [facility] [place] Absolute 0.0 0.0 - 0.2 12/08/2018 [facility] Basophils 10e9/L 8:21 AM CDT [facility] Diff Method Automated 12/08/2018 [facility] Method 8:21 AM CDT [facility] Specimen Anatomical Collection Method Collection Time Receive d Time (Source) Location / / Volume Laterality Blood specimen 12/08/2018 8:05 AM 019 8:06 (specimen) CDT AM CDT Annalisa Mark APRN, CNP LAB - BLOOD ORDERABLES Performing Organization Address City/State/[facility] Code Phon e Number [facility] [address] [place], [place] [phone] documented in this encounter Visit Diagnoses Diagnosis Acute otitis externa of left ear, unspec ified type - Primary CARDIOVASCULAR SCREENING; LDL GOAL LESS THAN 160 Other fatigue documented in this encounter Additional Health Concerns Assessment Noted Time PHQ-9 Depression Total Score: 3 12/07/2018 7:05 AM CDT documented as of this encounter Care Teams Insulator Tester Relationship Specialty Start Date End Date Annalisa Mark APRN LOCOMOTIVE ENGINEER ELECTRIC PCP - General Nurse Practitioner 03/22/15 [address] [place] [address] Annalisa Mark APRN CNP Assigned PCP 06/06/18 07/02/19 [address] [place], [place] [id number] documented as of this encounter
--- OUTSIDE RECORDS SUMMARY | 2022-06-06 21:02 | XMS_ITS | Encounter Summary ---
:1985 Author Organization [place] Address [address] [place] [address]. 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 Do you belong to any clubs [...] Sign Reading Time Taken Comments Blood Pressure 112/62 08/26/2017 9:22 AM PLASTIC SURGERY COORDINATOR Pulse - - Temperature - - Respiratory Rate - - Oxygen Saturation - - Inhaled Oxygen Concentration - - Weight 51.3 kg (113 lb 1.6 oz) 08/26/2017 9:22 AM PLASTIC SURGERY COORDINATOR Height 160 cm (5' 3) 08/26/2017 9:22 AM PLASTIC SURGERY COORDINATOR Body Mass Index 20.03 08/26/2017 9:22 AM PLASTIC SURGERY COORDINATOR documented in this encounter Progress Notes Edwige Martin - 08/26/2017 9:15 AM CST SUBJECTIVE: Patient's last menstrual period was 08/11/2017. , single female, P1 woman who presents for annual exam. Patient's last menstrual period was 08/11/2017. Cyclic symptoms include bloating. Current contraception: oral contraceptives History of abnormal Pap smear: Yes- LEEP Regular self breast exam: Yes Family history of breast cancer: Yes - Mother. Colon cancer No. Ovarian cancer No. History of abnormal lipids: No Past Medical History: Diagnosis Date ??? Allergic rhinitis, seasonal ??? Breast disorder benign tumor removed in 1997 ??? Generalised anxiety disorder 01/29/2012 ??? History [...] I & II ??? CRYOTHERAPY 04/04/08, 12/14/08 Current Outpatient Prescriptions Medication ??? norethindrone (MICRONOR) 0.35 MG per tablet ??? Hydrocortisone Acetate 2.5 % CREA ??? ibuprofen (ADVIL/MOTRIN) 800 MG tablet No current facility-administered medications for this visit. Allergies Allergen Reactions ??? No Known Drug Allergies Social History Substance Use Topics ??? Smoking status: Never Smoker ??? Smokeless tobacco: Never Used ??? Alcohol use No Comment: Occaisional Review of Systems CONSTITUTIONAL:NEGATIVE EYES: NEGATIVE ENT/MOUTH: NEGATIVE RESP: NEGATIVE CV: NEGATIVE GI: NEGATIVE : NEGATIVE MUSCULOSKELATAL: NEGATIVE INTEGUMENTARY/SKIN: NEGATIVE BREAST: NEGATIVE NEURO: NEGATIVE. OBJECTIVE: BP 112/62 (BP Location: Right arm, Patient Position: Chair, Cuff Size: Adult Regular) Ht 5' 3 (1.6 m) Wt 113 lb 1.6 oz (51.3 kg) LMP 08/11/2017 BMI 20.03 kg/m2 General appearance: Healthy. Skin: Normal. Mental Status: cooperative, normal affect, no gross thought process defects. Thyroid: Normal to palpation, no enlargement or nodules noted. Breasts: Symmetric without mass tenderness or discharge. Axillary nodes negative. Lungs: Clear to auscultation. Heart.: Normal rate and rhythm. No murmurs, clicks or gallops. Abdomen: BS active. Soft, non-tender, no masses or organomegaly. Pelvis: normal external genitalia, normal groin lymphatics, normal urethral meatus, normal vaginal mucosa, normal cervix, normal adnexa, no masses or tenderness, uterus normal size and shape and uterusantiverted. 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 TIC SURGERY COORDINATOR documented in this encounter Nursing Notes Marce Bazzi, [facility] - 08/26/2017 9:15 AM CST Chief Complaint Patient presents with ??? Construction Supervisor/Carpenter Exam spotting between periods. Marce Bazzi MA Initial BP 112/62 (BP Location: Right arm, Patient Position: Chair, Cuff Size: Adult Regular) Ht 5' 3 (1.6 m) Wt 113 lb 1.6 oz (51.3 kg) LMP 08/11/2017 BMI 20.03 kg/m2 Estimated body mass index is 20.03 kg/(m^2) as calculated from the following: Height as of this encounter: 5' 3 (1.6 m). Weight as of this encounter: 113 lb 1.6 oz (51.3 kg). BP completed using cuff size: regular The following HM Due: pap smear TIC SURGERY COORDINATOR documented in this encounter Plan of Treatment Not on filedocumented as of this encounter Procedures Procedure Name Priority Date/Time Associated Diagnosis Comme nts PAP IMAGED THIN Routine 08/26/2017 9:55 AM Result s for this LAYER SCREEN PLASTIC SURGERY COORDINATOR procedure are i n the results section. HPV HIGH RISK TYPES Routine 08/26/2017 9:50 AM Re sults for this DNA CERVICAL PLASTIC SURGERY COORDINATOR procedure are i n the results section. documented in this encounter Results Pap imaged thin layer screen with HPV - recommended age 30 - 65 years (select HPV order below) (08/26/2017 9:55 AM PLASTIC SURGERY COORDINATOR) Component Value Ref Test Analysis Performed At [facility] Range Method Time Signature PAP NIL COPATH Copath Report COPATH Patient Name: MARCELINO DALEY MR#: [id number] Specimen #: [id number] Collected: 08/26/2017 Received: 08/27/2017 Reported: 08/29/2017 08:54 Ordering Phy(s): EDWIGE MARTIN For improved result formatting, select 'View Enhanced [...] or malignancy Electronically signed out by: LANDEN Stone (ASCP) Processed and screened at [facility] CLINICAL HISTORY: LMP: 08/11/17 Oral Control Pill, Previous normal pap Date of Last Pap: 10/20/14, Papanicolaou Test Limitations: ??Cervical cytology is a sc reening test with limited sensitivity; regular screening is critical for cancer prevention; Pap tests are p rimarily effective for the diagnosis/prevention of squamous cell carcinoma, not adenocarcinomas or other cancer s. TESTING LAB LOCATION: [facility] [address] [place], [place] ??[address] COLLECTION SITE: Client: ??[facility] Location: RIOB (R) Specimen (Source) Anatomical Collection Method Collection Time Re ceived Time Location / / Volume Laterality Cytologic 08/26/2017 9:55 08/27/2017 9 :56 material AM PLASTIC SURGERY COORDINATOR AM PLASTIC SURGERY COORDINATOR (specimen) Edwige Martin MD LAB - OPTIME CLINICAL SPECIM EN Performing Organization Address City/State/ZIP Code Phon e Number COPATH HPV High Risk Types DNA Cervical (08/26/2017 9:50 AM PLASTIC SURGERY COORDINATOR) [facility] Method Time Signature HPV Source [facility] 08/26/2017 ADA[place] 9:55 AM PLASTIC SURGERY COORDINATOR [facility] HPV 16 DNA Negative NEG^Negat 09/01/2017 [facility] 1:19 PM PLASTIC SURGERY COORDINATOR [facility] HPV 18 DNA Negative NEG^Negat 09/01/2017 [facility] 1:19 PM PLASTIC SURGERY COORDINATOR [facility] Other HR HPV Negative NEG^Negat 09/01/2017 [facility] 1:19 PM PLASTIC SURGERY COORDINATOR [facility] Final This 09/01/2017 [facility] patient's 1:19 PM PLASTIC SURGERY COORDINATOR [facility] sample is [facility] negative for CAMPUS HPV DNA. Comment: This test was developed and its performa nce characteristics determined by the [facility], Molecular Diagnostics Laboratory. It has [...] women under age 30 with normal cervi yakaov cytology. ??Results should be correlated with cytologic and histolo gic findings. Close clinical followup is recommended. Specimen Description Cervical Cells 08/31/2017 10: 35 AM [facility] Comment: [id number] Specimen Anatomical Collection Method Collection Time Receive d Time (Source) Location / / Volume Laterality Cervical Cells 08/26/2017 9:50 AM 018 PLASTIC SURGERY COORDINATOR 11:32 AM PLASTIC SURGERY COORDINATOR Edwige Martin MD LAB - BLOOD ORDERABLES Performing Organization Address City/State/ZIP Code Phon e Number [address] [address] [facility] [address] [place], [place] [address] [address] documented in this encounter Visit Diagnoses Diagnosis Routine history and physical examination of adult - Primary Routine general medical examination at a health care facility documented in this encounter Additional Health Concerns Assessment Noted Time PHQ-9 Depression Total Score: 0 12/30/2016 7:26 AM CDT documented as of this encounter Care Teams Button Cutter Relationship Specialty Start Date End Date Annalisa Mark APRN [employer] P[employer] ASSEMBLER PCP - General Nurse Practitioner 03/22/15 [address] [place] [address] documented as of this encounter
--- OUTSIDE RECORDS SUMMARY | 2022-06-06 21:02 | XMS_ITS | Encounter Summary ---
:1985 Author Organization [place] Address [facility] [place] [address] Care Team Providers Name Role Phone Annalisa Mark APRN, CNP Primary Care Provider [phone] Annalisa Mark APRN PACKAGING ASSEMBLER Unavailable [phone] Reason for Visit Reason Comments Urgent Care Otalgia Left ear pain started few da ys ago Encounter Details Date Type Department Care Team Description 12/02/2018 Office Visit [facility] Rashmi Escobedo, Acute o titis externa of left ear, unspecified type (Primary Dx); Urgent Care Patrica quan MD Ear itching [address] [facility] [address] [place] [address] [phone] [place], [place] [phone] Social History Tobacco Use Types Packs/Day Years [...] or relatives? How often do you attend rastafarian or Patient refused 2021 rastafarian services? Do you belong to any clubs or No 10/17/2021 organizations such as rastafarian groups, unions, fraternal or athletic groups, or [...] Sign Reading Time Taken Comments Blood Pressure 112/74 12/02/2018 5:35 PM CDT Pulse 83 12/02/2018 5:35 PM CDT Temperature 36.8 ??C (98.3 ??F) 12/02/2018 5:35 PM CDT Respiratory Rate 16 12/02/2018 5:35 PM CDT Oxygen Saturation 99% 12/02/2018 5:35 PM CDT Inhaled Oxygen Concentration - - Weight 52.2 kg (115 lb) 12/02/2018 5:35 PM CDT Height - - Body Mass Index 20.37 04/19/2018 2:38 PM CDT documented in this encounter Patient Instructions Patient InstructionsRashmi Escobedo MD - 12/02/2018 5:20 PM CDT Images from the original note [...] or ibuprofen to control pain, unless another medicine??was prescribed. Note: If you have chronic liver or kidney disease or ever had a stomach ulcer or GI bleeding, talk toyour healthcare provider before taking any of these medicines. ?? Do not allow water to get into your ear when bathing. Also, don't swim until the infection has cleared. Prevention ?? Keep your ears dry. This helps lower the risk of infection. Dry your ears with a towel or supervisor hairspring fabrication after getting wet. Also, use ear plugs [...] ?? Seizure Date Last Reviewed: 04/26/2017 ?? [id number] [employer]. [address] [place] [address]. All rights reserved. This information is not intended as a substitute for professional medical care. Always follow your healthcare professional's instructions. documented in this encounter Progress Notes Rashmi Escobedo MD - 12/02/2018 5:20 PM CDT Chief Complaint Patient presents with ??? Urgent Care ??? Otalgia Left ear pain started few days ago SUBJECTIVE: Tameka Grissom is a 33 year old female who presents with left ear pain and itching for 2 day(s). Severity: moderate Timing:sudden onset Additional symptoms include itching of both ear canal . History of recurrent otitis: no Past Medical [...] Outpatient Medications Medication Sig Dispense Refill ??? ciprofloxacin-hydrocortisone (CIPRO HC OTIC) 0.2-1 % otic suspension Place 3 drops Into the leftear 2 times daily 1 Bottle 0 ??? azithromycin (ZITHROMAX) 250 MG tablet Two tablets first day, then one tablet daily for four days. (Patient not taking: Reported on 12/02/2018) 6 tablet 0 ??? oseltamivir (TAMIFLU) 75 MG capsule Take 1 capsule (75 mg) by mouth 2 times daily 10 capsule Social History Tobacco Use ??? Smoking status: Never Smoker ??? Smokeless tobacco: Never Used Substance Use Topics ??? Alcohol use: No Alcohol/week: 0.0 oz Comment: Occaisional ROS: 10 point ROS of systems including Constitutional, Eyes, Respiratory, Cardiovascular, Gastroenterology, Genitourinary, Integumentary, Muscularskeletal, Psychiatric were all negative except for pertinentpositives noted in my HPI OBJECTIVE: BP 112/74 Pulse 83 Temp 98.3 ??F (36.8 ??C) (Oral) Resp 16 Wt 52.2 kg (115 lb) SpO2 99% BMI 20.37 kg/m?? EXAM: The right TM is normal: no effusions, no erythema, and normal landmarks The right auditory canal is normal and without drainage, edema or erythema, skin excoriations noted The left TM is normal: no effusions, no erythema, and normal landmarks The left auditory canal is erythematous, obstructed by drainage, swollen and tender, skin excoriations noted Oropharynx exam is normal: no lesions, erythema, adenopathy or exudate. GENERAL: no acute distress EYES: EOMI, PERRL, conjunctiva clear NECK: supple, non-tender to palpation, no adenopathy noted RESP: lungs clear to auscultation - no rales, rhonchi or wheezes CV: regular rates and rhythm, normal S1 S2, no murmur noted SKIN: no suspicious lesions or rashes ASSESSMENT: Otitis Externa, left Tameka was seen today for urgent care and otalgia. Diagnoses and all orders for this visit: Acute otitis externa of left ear, unspecified type - ciprofloxacin-hydrocortisone (CIPRO HC OTIC) 0.2-1 % otic suspension; Place 3 drops Into the left ear 2 times daily Ear itching PLAN: See orders in Epic discussed with patient about the condition Advised to use eardrops as directed Can use corticosteroid ointment 1% topically to the area once a day as needed for the itching Follow up if symptoms fail to improve or worsens Pt understood and agreed with plan .Rashmi Escobedo MD documented in this encounter Plan of Treatment Not on filedocumented as of this encounter Visit Diagnoses Diagnosis Acute otitis externa of left ear, unspec ified type - Primary Ear itching Unspecified pruritic disorder documented in this encounter Additional Health Concerns Assessment Noted Time PHQ-9 Depression Total Score: 7 06/04/2018 3:40 PM SYSTEMS SUPPORT ENGINEER documented as of this encounter Care Teams Printing Plate Setter Relationship Specialty Start Date End Date Annalisa Mark APRN PACKAGING ASSEMBLER PCP - General Nurse Practitioner 03/22/15 [address] [place], [place] [id number] Annalisa Mark APRN PACKAGING ASSEMBLER Assigned PCP 06/06/18 07/02/19 [address] [place] [address] documented as of this encounter
--- OUTSIDE RECORDS SUMMARY | 2022-06-06 21:02 | XMS_ITS | Encounter Summary ---
:1985 Author Organization [place] Address [facility]0 [facility] [place] [address] Care Team Providers Name Role Phone DeedeeAnnalisa dean Madonna STANLEY CNP Primary Care Provider [phone] Reason for Visit Reason Comments Medication Refill micronot Encounter Details Date Type Department Care Team Description [facility] [place] [address] [place] [phone] Social History Tobacco Use Types Packs/Day Years [...] you attend muslim or Patient refused 2021 baptism services? Do [...] or slept in a alf (including now)? Sex Assigned at Date Recorded Female 03/25/2021 2:01 PM CDT documented as of this encounter Miscellaneous Notes Telephone Encounter - Pamela Velazquez RN - 11/30/2017 11:21 AM CDT Patient has refills remaining. Pharmacy notified. Pamela Velazquez RN documented in this encounter Plan of Treatment Not on filedocumented as of this encounter Visit Diagnoses Diagnosis Encounter for initial prescription of co ntraceptive pills General counseling for prescription of o ral contraceptives documented in this encounter Additional Health Concerns Assessment Noted Time PHQ-9 Depression Total Score: 4 09/24/2017 8:33 AM CERAMIC COATER documented as of this encounter Care Teams Conservator Artifacts Relationship Specialty Start Date End Date Annalisa Mark APRN COAL GRADER PCP - General Nurse Practitioner 03/22/15 [address] [place] [address] documented as of this encounter
--- OUTSIDE RECORDS SUMMARY | 2022-06-06 21:02 | XMS_ITS | Encounter Summary ---
:1985 Author Organization [place] Address [facility] [place] [address] Care Team Providers Name Role Phone Annalisa Mark APRN, CNP Primary Care Provider [phone] Annalisa Mark APRN, CNP Unavailable [phone] Reason for Visit Reason Onset Date Comments Patient Request 12/03/2018 med change Encounter Details Date Type Department Care Team Description 12/03/2018 Telephone [facility] Annalisa Mark Patient Re quest ([facility] [place] JADEN Peacock CORE DRILLER HELPER change) [address] [place] [id number] [phone] Social History Tobacco Use Types Packs/Day Years [...] or relatives? How often do you attend sikh or Patient refused 2021 religion services? Do you belong to any clubs or No 10/17/2021 organizations such as sikh groups, unions, fraternal or athletic groups, or [...] this encounter Miscellaneous Notes Telephone Encounter - Chiqui Henley RN - 12/04/2018 8:44 AM CDT Pt informed Chiqui Henley RN, BSN Message handled by Nurse Triage. Telephone Encounter - Annalisa Mark APRN CNP - 12/03/2018 6:03 PM CDT Can you let Tameka know that I placed an alternative ear drop into her pharmacy that will cost $12.00, much better!! Thanks, Annalisa Mark CNP Telephone Encounter - Yakelin Fairchild - 12/03/2018 8:27 AM CDT Pt was seen in last night , was prescribed Cipro for ear infection but it is too expensive and she is wondering if there is something cheaper or a generic that can be prescribed, please call and lether know. documented in this encounter Plan of Treatment Not on filedocumented as of this encounter Visit Diagnoses Diagnosis Acute otitis externa of left ear, unspec ified type - Primary documented in this encounter Additional Health Concerns Assessment Noted Time PHQ-9 Depression Total Score: 7 06/04/2018 3:40 PM WEDGER AND GLUER documented as of this encounter Care Teams Advertising Specialist Relationship Specialty Start Date End Date Annalisa Mark APRN CNP PCP - General Nurse Practitioner 03/22/15 [address] [place], [place] [phone] Annalisa Mark APRN CNP Assigned PCP 06/06/18 07/02/19 [address] [place], [place] [phone] documented as of this encounter
--- OUTSIDE RECORDS SUMMARY | 2022-06-06 21:02 | XMS_ITS | Encounter Summary ---
:1985 Author Organization [place] Address [facility]0 [facility] [place] [address] Care Team Providers Name Role Phone DeedeeAnnalisa dean Madonna STANLEY CNP Primary Care Provider [phone] Reason for Visit Reason Comments Pain left elbow Vaginal Problem Medication Request control question Encounter Details Date Type Department Care Team Description 09/23/2017 Office Visit [facility] Kerri Paredes, Rogelio cummings (Primary Dx); [facility] [place] FOAMITE MIXER Encounter for initial prescription of co ntraceptive pills; [address] [facility] Recurrent major depressive d isorder, in partial remission (H); [facility] Bacterial vaginosis [phone] [phone] [place] [address] Social History Tobacco Use Types Packs/Day Years [...] or relatives? How often do you attend gnosticism or Patient refused 2021 catholic services? Do you belong to any clubs or No 10/17/2021 organizations such as gnosticism groups, unions, fraternal or athletic groups, or [...] or slept in a detention (including now)? Sex Assigned at Date Recorded Female 03/25/2021 2:01 PM CDT documented as of this encounter Last Filed Vital Signs Vital Sign Reading Time Taken Comments Blood Pressure 110/66 09/23/2017 3:57 PM SIMULATION SOFTWARE ENGINEER Pulse 79 09/23/2017 3:57 PM SIMULATION SOFTWARE ENGINEER Temperature 37.1 ??C (98.7 ??F) 09/23/2017 3:57 PM SIMULATION SOFTWARE ENGINEER Respiratory Rate 16 09/23/2017 3:57 PM SIMULATION SOFTWARE ENGINEER Oxygen Saturation 96% 09/23/2017 3:57 PM SIMULATION SOFTWARE ENGINEER Inhaled Oxygen Concentration - - Weight 51.7 kg (114 lb) 09/23/2017 3:57 PM SIMULATION SOFTWARE ENGINEER Height 160 cm (5' 3) 09/23/2017 3:57 PM SIMULATION SOFTWARE ENGINEER Body Mass Index 20.19 09/23/2017 3:57 PM SIMULATION SOFTWARE ENGINEER documented in this encounter Progress Notes Kerri Paredes NP - 09/23/2017 3:45 PM CST SUBJECTIVE: Tameka Grissom is a 32 year old female who presents to clinic today for the following health issues: Musculoskeletal problem/pain, left elbow pain ?? Duration: x 6 weeks ?? Description Location: left below ?? Intensity: moderate ?? Accompanying signs and symptoms: holds her kid a lot, hurts to bend ?? History Previous similar problem: no Previous evaluation: none ?? Precipitating or alleviating factors: Trauma or overuse: YES- holding a kid Aggravating factors include: lifting, exercise, overuse and extend ?? Therapies tried and outcome: nothing Pain in left elbow for the past month. Does carry her 25 pound baby around on that side and may be aggravated by constantly lifting. Right handed. Vaginal Symptoms ?? Duration: x 5 days, did [facility] over the phone ?? Description itching and burning ?? Intensity: moderate ?? Accompanying signs and symptoms (fever/dysuria/abdominal or back pain): None ?? History Sexually active: yes, single partner, contraception - oral contraceptives (combined) Possibility of : No Recent antibiotic use: YES- Fluconazole, 1 pill but did nothing ?? Precipitating or alleviating factors: None ?? Therapies tried and outcome: none Took diflucan x1 after an evisit and did not help symptoms. Vaginal discharge with odor and itching. Problem list and histories reviewed & adjusted, as indicated. Additional history: none Patient Active Problem List Diagnosis ??? Mild major depression (H) ??? CARDIOVASCULAR SCREENING; LDL GOAL LESS THAN 160 ??? LGSIL on Pap smear ??? History of OCD (obsessive compulsive disorder) ??? Generalized anxiety disorder ??? Vaginal delivery Past Surgical History: Procedure Laterality Date ??? [...] Brother ??? Breast Cancer Other paternal aunt Reviewed and updated as needed this visit by clinical staff Tobacco Allergies Meds Problems Med Hx Surg Hx Fam Hx Soc Hx Reviewed and updated as needed this visit by Provider Allergies Meds Problems ROS: Constitutional, HEENT, cardiovascular, pulmonary, gi and gu systems are negative, except as otherwise noted. OBJECTIVE: BP 110/66 (BP Location: Right arm, Patient Position: Chair, Cuff Size: Adult Regular) Pulse 79 Temp 98.7 ??F (37.1 ??C) (Oral) Resp 16 Ht 5' 3 (1.6 m) Wt 114 lb (51.7 kg) LMP 09/04/2017 SpO2 96% ? No BMI 20.19 kg/m2 Body mass index is 20.19 kg/(m^2). GENERAL: healthy, alert and no distress BACK: no CVA tenderness, no paralumbar tenderness PSYCH: mentation appears normal, affect normal/bright Results for orders placed or performed in visit on 09/23/17 (from the past 24 hour(s)) Wet prep Result Value Ref Range Specimen Description Vagina Wet Prep Clue cells seen (A) Wet Prep Yeast seen (A) Wet Prep No Trichomonas seen ASSESSMENT/PLAN: 1. Itching Wet prep shows yeast and clue cells. - Wet prep - fluconazole (DIFLUCAN) 150 MG tablet; Take 1 tablet (150 mg) by mouth every 3 days Dispense: 4 tablet; Refill: 0 2. Encounter for initial prescription of contraceptive pills Refilled today. - norethindrone (MICRONOR) 0.35 MG per tablet; Take 1 tablet (0.35 mg) by mouth daily Dispense: 84 tablet; Refill: 3 3. Recurrent major depressive disorder, in partial remission (H) Started on low dose celexa as patient is feeling some sadness. History of depression. - citalopram (CELEXA) 10 MG tablet; Take 1 tablet (10 mg) by mouth daily Dispense: 30 tablet; Refill: 3 4. Bacterial vaginosis Flagyl BID for seven days. No alcohol with medication. - metroNIDAZOLE (FLAGYL) 500 MG tablet; Take 1 tablet (500 mg) by mouth 2 times daily Dispense: 14 tablet; Refill: 0 Follow up with PCP, Annalisa Mark, in one month. Kerri Paredes NP [facility] LATION SOFTWARE ENGINEER documented in this encounter Nursing Notes Dennys Forrest CMA - 09/23/2017 3:45 PM CST Chief Complaint Patient presents with ??? Pain left elbow ??? Vaginal Problem ??? Medication Request control question Initial BP 110/66 (BP Location: Right arm, Patient Position: Chair, Cuff Size: Adult Regular) Pulse 79 Temp 98.7 ??F (37.1 ??C) (Oral) Resp 16 Ht 5' 3 (1.6 m) Wt 114 lb (51.7 kg) LMP 09/04/2017 SpO2 96% ? No BMI 20.19 kg/m2 Estimated body mass index is 20.19 kg/(m^2) ascalculated from the following: Height as of this encounter: 5' 3 (1.6 m). Weight as of this encounter: 114 lb (51.7 kg). Medication Reconciliation: anita Forrest CMA LATION SOFTWARE ENGINEER documented in this encounter Plan of Treatment Not on filedocumented as of this encounter Procedures Procedure Name Priority Date/Time Associated Diagnosis Comme nts WET PREPARATION Routine 09/23/2017 3:49 PM Itching Result s for this SIMULATION SOFTWARE ENGINEER procedure are i n the results section. documented in this encounter Results (ABNORMAL) Wet prep (09/23/2017 3:49 PM SIMULATION SOFTWARE ENGINEER) [facility] Method Time Signature Specimen Vagina [facility] Wet Prep Clue cells seen 09/23/2017 [place] (A) 4:02 PM SIMULATION SOFTWARE ENGINEER [facility] Wet Prep Yeast seen (A) 09/23/2017 [place] 4:02 PM SIMULATION SOFTWARE ENGINEER [facility] Wet Prep No Trichomonas 09/23/2017 [place] seen 4:02 PM SIMULATION SOFTWARE ENGINEER [facility] Specimen Anatomical Collection Method Collection Time Receive d Time (Source) Location / / Volume Laterality Specimen from 09/23/2017 3:49 PM 09/23/19 18 3:50 vagina SIMULATION SOFTWARE ENGINEER PM SIMULATION SOFTWARE ENGINEER (specimen) Kerri Paredes NP LAB - MICRO GENERAL ORDERABL ES Performing Organization Address City/State/ZIP Code Phon e Number [facility] [id number] [place] [address] documented in this encounter Visit Diagnoses Diagnosis Itching - Primary Unspecified pruritic disorder Encounter for initial prescription of co ntraceptive pills General counseling for prescription of o ral contraceptives Recurrent major depressive disorder, in partial remission (H) Bacterial vaginosis Vaginitis and vulvovaginitis, unspecifie d documented in this encounter Additional Health Concerns Assessment Noted Time PHQ-9 Depression Total Score: 4 09/24/2017 8:33 AM SIMULATION SOFTWARE ENGINEER documented as of this encounter Care Teams Assistant Store Manager Operations Relationship Specialty Start Date End Date Annalisa Mark APRN MARKETING UNDERWRITER PCP - General Nurse Practitioner 03/22/15 [address] [place] [address] documented as of this encounter
--- OUTSIDE RECORDS SUMMARY | 2022-06-06 21:02 | XMS_ITS | Encounter Summary ---
:1985 Author Organization [place] Address [address] [place] [place] [address] Care Team Providers Name Role Phone DeedeeAnnalisa dean Madonna STANLEY CNP Primary Care Provider [phone] Leonor Burgos MD Unavailable [phone] Reason for Referral Diagnostic Imaging Ultrasound - Closed Specialty Diagnoses / Procedures Referred By Contact Refer red To Contact Diagnoses Screening for cystic fibrosis Edwige Martin MD MATERNAL- MEDICINE [address] [place] [address] [facility] 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 Do [...] or slept in a custodial (including now)? Sex Assigned at Date Recorded Female 03/25/2021 2:01 PM CDT documented as of this encounter Last Filed Vital Signs Vital Sign Reading Time Taken Comments Blood Pressure 102/60 04/19/2018 2:38 PM CDT Pulse - - Temperature - - Respiratory Rate - - Oxygen Saturation - - Inhaled Oxygen Concentration - - Weight 51.8 kg (114 lb 3.2 oz) 04/19/2018 2:38 PM CDT Height 160 cm (5' 3) 04/19/2018 2:38 PM CDT Body Mass Index 20.23 04/19/2018 2:38 PM CDT documented in this encounter Progress Notes Edwige Martin - 04/19/2018 2:30 PM CDT SUBJECTIVE: Marcelino Daley , single female, P1 woman who presents for annual exam. Patient's last menstrualperiod was 04/09/2018. Cyclic symptoms include bloating. Current contraception: oral [...] I & II ??? CRYOTHERAPY 04/04/08, 12/14/08 No current outpatient prescriptions on file. No current facility-administered medications for this visit. Allergies Allergen Reactions ??? No Known Drug Allergies Social History Substance Use Topics ??? Smoking status: Never Smoker ??? Smokeless tobacco: Never Used ??? Alcohol use No Comment: Occaisional Review of Systems CONSTITUTIONAL:NEGATIVE EYES: NEGATIVE ENT/MOUTH: NEGATIVE RESP: NEGATIVE CV: NEGATIVE GI: NEGATIVE : NEGATIVE MUSCULOSKELATAL: NEGATIVE INTEGUMENTARY/SKIN: NEGATIVE BREAST: NEGATIVE NEURO: NEGATIVE. OBJECTIVE: BP 102/60 (BP Location: Right arm, Patient Position: Chair, Cuff Size: Adult Regular) Ht 5' 3 (1.6 m) Wt 114 lb 3.2 oz (51.8 kg) LMP 04/09/2018 BMI 20.23 kg/m2 General appearance: Healthy. Skin: Normal. Mental [...] and uterusantiverted. Extremities: Normal ASSESSMENT: Satisfactory annual seaman exam PLAN: 1) Pap smear 2) Mammography, lipids at appropriate intervals PE: reviewed health maintenance including diet, regular exercise and periodic exams. documented in this encounter Nursing Notes Marce Bazzi, EN - 04/19/2018 2:30 PM CDT Chief Complaint Patient presents with ??? Pad Machine Operator Exam Discuss getting . Marce Bazzi MA Initial BP 102/60 (BP Location: Right arm, Patient Position: Chair, Cuff Size: Adult Regular) Ht 5' 3 (1.6 m) Wt 114 lb 3.2 oz (51.8 kg) LMP 04/09/2018 BMI 20.23 kg/m2 Estimated body mass index is 20.23 kg/(m^2) as calculated from the following: Height as of this encounter: 5' 3 (1.6 m). Weight as of this encounter: 114 lb 3.2 oz (51.8 kg). BP completed using cuff size: regular The following HM Due: NONE The following patient reported/Care Every where data was sent to: P ABSTRACT QUALITY INITIATIVES [03289] documented in this encounter Plan of Treatment Scheduled Referrals Name Type Priority Associated Diagnoses Order S chedule MAT MED CTR Referral Routine Screening for cystic Or dered: 04/20/2018 REFERRAL-PRECONCEPTIO fibrosis N documented as of this encounter Procedures Procedure Name Priority Date/Time Associated Diagnosis Comme nts PAP IMAGED THIN Routine 04/19/2018 4:06 PM Result s for this LAYER SCREEN CDT procedure are i n the results section. HPV HIGH RISK TYPES Routine 04/19/2018 3:15 PM Re sults for this DNA CERVICAL CDT procedure are i n the results section. documented in this encounter Results Pap imaged thin layer screen with HPV - recommended age 30 - 65 years (select HPV order below) (04/19/2018 4:06 PM CDT) Component Value Ref Test Analysis Performed At [facility] [email or web address] Range Method Time Signature PAP NIL COPATH Copath Report COPATH Patient Name: MARCELINO DALEY MR#: [id number] Specimen #: [id number] Collected: 04/19/2018 Received: 04/20/2018 Reported: 04/22/2018 09:12 Ordering Phy(s): EDWIGE MARTIN For improved result [...] lesion or malignancy Electronically signed out by: Raul SCHUSTER, (ASCP) Processed and screened at [facility] nter, [facility] CLINICAL HISTORY: LMP: 04/09/2018 A previous normal pap Date of Last Pap: 08/26/2017, Papanicolaou Test Limitations: ??Cervical cytology is a sc reening test with limited sensitivity; regular screening is critical for cancer prevention; Pap tests are p rimarily effective for the diagnosis/prevention of squamous cell carcinoma, not adenocarcinomas or other cancer s. TESTING LAB LOCATION: [address] ??[address] COLLECTION SITE: Client: ??[facility] Location: RIOB (R) Specimen (Source) Anatomical Collection Method Collection Time Re ceived Time Location / / Volume Laterality Cytologic 04/19/2018 4:06 04/20/2018 material PM CDT 10:27 AM CDT (specimen) Edwige Martin MD LAB - OPTIME CLINICAL SPECIM EN Performing Organization Address City/State/ZIP Code Phon e Number COPATH HPV High Risk Types DNA Cervical (04/19/2018 3:15 PM CDT) [facility] gist Method Time Signature HPV Source [facility] 04/19/2018 [place] 4:06 PM CDT [facility] HPV 16 DNA Negative NEG^Negat 04/23/2018 [facility] 2:08 PM CDT [facility] HPV 18 DNA Negative NEG^Negat 04/23/2018 [facility] 2:08 PM CDT [facility] Other HR HPV Negative NEG^Negat 04/23/2018 [facility] 2:08 PM CDT [facility] Final This 04/23/2018 [facility] patient's 2:08 PM CDT [place] MEDICAL sample is [facility] negative for WHITE HPV DNA. Comment: This test was developed and its performa nce characteristics determined by the [facility], Molecular Diagnostics Laboratory. It has not been [...] followup is recommended. Specimen Description Cervical Cells 04/19/2018 4:0 6 PM CDT [facility] Comment: [id number] Specimen Anatomical Collection Method Collection Time Receive d Time (Source) Location / / Volume Laterality Cervical Cells CERVIX UTERI 04/19/2018 3:15 PM 018 4:28 STRUCTURE / CDT PM CDT Unknown Edwige Martin MD LAB - BLOOD ORDERABLES Performing Organization Address City/State/ZIP Code Phon e Number [address] [address] [facility] [address] [place], [place] [address] [address] documented in this encounter Visit Diagnoses Diagnosis Screening for cystic fibrosis - Primary Routine adult health maintenance Routine general medical examination at a health care facility documented in this encounter Additional Health Concerns Assessment Noted Time PHQ-9 Depression Total Score: 4 09/24/2017 8:33 AM FASHION INTERN documented as of this encounter Care Teams Jalousies Installer Relationship Specialty Start Date End Date Annalisa Mark APRN PCP - General Nurse Practitioner 03/22/15 [facility] [address] [place] [address] Leonor Burgos PCP - Assigned PCP 12/13/17 1 08/05/17 [place] [address] [place], [place] [id number] documented as of this encounter
--- OUTSIDE RECORDS SUMMARY | 2022-06-06 21:02 | XMS_ITS | Encounter Summary ---
:1985 Author Organization [place] Address [address] [place] [address]. [place] [address] Care Team Providers Name Role Phone DeedeeSwapna deanarnulfo Peacock APRN, CNP Primary Care Provider [phone] Leonor Burgos MD Unavailable [phone] Reason for Visit Reason Comments Consult child with CF Encounter Details Date Type Department Care Team Description 04/30/2018 PRE VISIT [facility] Maternal Chiqui Mchugh RN Consult (child with CF) Medicine Center [place] [address] [facility] [address] [place] [address] Social History Tobacco Use Types Packs/Day Years [...] or relatives? How often do you attend lutheran or Patient refused 2021 adventism services? Do you belong to any clubs or No 10/17/2021 organizations such as lutheran groups, unions, fraternal or athletic groups, or [...] Depression Total Score: 4 09/24/2017 8:33 AM WRAPPER LEAF INSPECTOR documented as of this encounter Care Teams First Aid Teacher Relationship Specialty Start Date End Date Annalisa Mark APRN PCP - General Nurse Practitioner 03/22/15 [place] [address] [place] [address] Leonor Burgos PCP - Assigned PCP 12/13/17 1 08/05/17 [place] [address] [place], [place] [id number] documented as of this encounter
--- OUTSIDE RECORDS SUMMARY | 2022-06-06 21:02 | XMS_ITS | Encounter Summary ---
:1985 Author Organization [place] Address [facility] [facility] [place] [address] Care Team Providers Name Role Phone Deedee Annalisa Peacock APRN, CNP Primary Care Provider Leonor Burgos MD Unavailable Deedee, Annalisa Peacock APRN, CNP Unavailable Deedee, Annalisa Peacock APRN, CNP Unavailable Mukul Rivas PA-C Unavailable [phone] Deedee, Annalisa Peacock APRN, CNP Unavailable Mukul Rivas PA-C Unavailable [phone] Deedee, Annalisa Peacock APRN, CNP Unavailable Jacob Carmona MD Unavailable [phone] Leonor Burgos MD Unavailable Deedee, Annalisa Peacock APRN, CNP Unavailable Reason for Referral - Closed Specialty Diagnoses / Procedures Referred By Contact Refer red To Contact Diagnoses Encounter for preconception consultation Pete Martin MD [address] [place] [address] Referral ID Status Reason Start Date Expiration Date Visits Requ ested Visits Authorized [id number] Closed 04/20/2018 04/20/2019 1 1 Encounter Details Date Type Department Care Team Description 04/20/2018 Orders Only [facility] Pete Martin Encounter for Maternal MD Alexandre preconception Medicine Center consultation (Primary Gleason Dx) [address] [facility] [address] [place] [address] Social History Tobacco Use Types Packs/Day Years [...] you attend evangelical or Patient refused 2021 restorationist services? Do [...] slept in a group home (including now)? Sex Assigned at Date Recorded Female 03/25/2021 2:01 PM CDT documented as of this encounter Plan of Treatment Scheduled Referrals Name Type Priority Associated Diagnoses Order S reta Teresa Genetic Referral Routine Encounter for 1 Occurrences starting Counseling preconception 04/20/2018 unt il consultation 04/20/2019 documented as of this encounter Visit Diagnoses Diagnosis Encounter for preconception consultation - Primary documented in this encounter Additional Health Concerns Infection Onset Date Last Indicated Resolved Time Rule Out COVID-19 01/14/2021 01/14/2021 01/15/2021 3:3 2 PM CDT Rule Out C-difficile 02/26/2022 02/26/2022 02/27/2022 1:52 PM CDT C-difficile 02/26/2022 02/26/2022 03/28/2022 11:41 PM CDT Assessment Noted Time PHQ-9 Depression Total Score: 4 09/24/2017 8:33 AM INDUSTRIAL WELDER documented as of this encounter Care Teams Manager Document Control Relationship Specialty Start Date End Date Annalisa Mark, PCP - General Nurse Practitioner 03/22/15 MANAGER PUBLISHING TRUST MANAGER [address] [place] [address] Leoonr Burgos PCP - Assigned PCP 12/13/17 1 08/05/17 MD [place] [address] [place] [address] Annalisa Mark, PCP - Assigned PCP 06/06/18 09/28/18 MANAGER PUBLISHING TRUST MANAGER [address] [place] [address] Annalisa Marke, Assigned PCP 06/06/18 9 MANAGER PUBLISHING TRUST MANAGER [address] [facility] [place] [address] Mukul Rivas, Assigned PCP 07/03/19 PA-C [address] [place] [address] Annalisa Markhele, Assigned PCP 11/20/19 0 MANAGER PUBLISHING TRUST MANAGER [address] [place] [address] Mukul Rivas, Assigned PCP 12/11/19 PA-C [address] [place] [address] Annalisa Mark Madonna, Assigned PCP 01/22/20 2 MANAGER PUBLISHING TRUST MANAGER [address] [facility] [place] [address] Jacob Carmona Assigned OBGYN Provider 05/18/20 MD Antony [address] [place] [address] Leonor Burgos Assigned PCP 02/22/22 2 MD Joel [address] [place], [place] [id number] Annalisa Mark, Assigned PCP 05/17/22 MANAGER PUBLISHING [employer] [address] [place], [place] [phone] documented as of this encounter
--- OUTSIDE RECORDS SUMMARY | 2022-06-06 21:02 | XMS_ITS | Encounter Summary ---
:1985 Author Organization [place] Address [address] [place] [address]. [place] [address] Care Team Providers Name Role Phone Annalisa Mark APRN, CNP Primary Care Provider [phone] Annalisa Mark APRN MODEL MAKER FIBERGLASS Unavailable [phone] Annalisa Mark APRN MODEL MAKER FIBERGLASS Unavailable [phone] Encounter Details Date Type Department Care Team Description 06/07/2018 [facility] Hypoglycemia Laboratory [address] [place], [place] [address] Social History Tobacco Use Types Packs/Day [...] or relatives? How often do you attend buddhism or Patient refused 2021 methodist services? Do you belong to any clubs or No 10/17/2021 organizations such as buddhism groups, unions, fraternal or athletic groups, or [...] or slept in a longterm (including now)? Sex Assigned at Date Recorded Female 03/25/2021 2:01 PM CDT documented as of this encounter Progress Notes Annalisa Mark APRN CNP - 06/07/2018 4:46 PM CST MARIA D English, Good news, your fasting glucose is 81! Your A1C (test for diabetes) is also normal at 5.2%. I am notsure why the low of 47 last Thursday, like I said earlier it may have been a lab error. How have you been feeling over the weekend? Sincerely, Annalisa Mark CNP IRING 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 documented in this encounter Plan of Treatment Not on filedocumented as of this encounter Procedures Procedure Name Priority Date/Time Associated Diagnosis Comme nts HEMOGLOBIN A1C Routine 06/07/2018 7:38 AM Hypoglycemia Results for this UNHAIRING 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 procedure are i n the results section . GLUCOSE Routine 06/07/2018 7:38 AM Hypoglycemia Results f or this UNHAIRING 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 procedure are i n the results section . documented in this encounter Results Glucose (06/07/2018 7:38 AM UNHAIRING 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) athologist Signature Glucose 81 70 - 99 06/07/2018 [facility] mg/dL 1:39 PM UNHAIRING 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 [facility] Comment: Fasting specimen Specimen Anatomical Collection Method Collection Time Receive d Time (Source) Location / / Volume Laterality Blood specimen 06/07/2018 7:38 AM 018 7:39 (specimen) UNHAIRING 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 AM UNHAIRING 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 Annalisa Mark APRN, CNP LAB - BLOOD ORDERABLES Performing Organization Address City/State/ZIP Code Phon e Number [facility] [address] [place] [address] Hemoglobin A1c (06/07/2018 7:38 AM UNHAIRING 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) athologist Signature Hemoglobin A1C 5.2 0 - 5.6 % 06/07/2018 [place] 8:23 AM UNHAIRING 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 [facility] Comment: Normal <5.7% Prediabetes 5.7-6.4% ??Diab etes 6.5% or higher - adopted from ADA consensus guidelines. Specimen Anatomical Collection Method Collection Time Receive d Time (Source) Location / / Volume Laterality Blood specimen 06/07/2018 7:38 AM 018 7:39 (specimen) UNHAIRING 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 AM UNHAIRING 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 Annalisa Mark APRN MODEL MAKER FIBERGLASS LAB - BLOOD ORDERABLES Performing Organization Address City/State/ZIP Code Phon e Number [facility] [address] [place] [address] documented in this encounter Visit Diagnoses Diagnosis Hypoglycemia Hypoglycemia, unspecified documented in this encounter Additional Health Concerns Assessment Noted Time PHQ-9 Depression Total Score: 7 06/04/2018 3:40 PM UNHAIRING 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 documented as of this encounter Care Teams Greenskeeper Supervisor Relationship Specialty Start Date End Date Annalisa Mark APRN PCP - General Nurse Practitioner 03/22/15 [employer] [address] [place] [address] Annalisa Mark APRN PCP - Assigned PCP 06/06/18 09/28/18 [employer] [address] [place] [address] Annalisa Mark APRN Assigned PCP 06/06/18 1 09/02/18 [employer]DEL [employer] [address] [place] [address] documented as of this encounter
--- OUTSIDE RECORDS SUMMARY | 2022-06-06 21:02 | XMS_ITS | Encounter Summary ---
:1985 Author Organization [place] Address [address] [facility] [place] [address] Care Team Providers Name Role Phone Annalisa Mark JADEN MONTALVO Primary Care Provider [phone] Leonor Burgos MD Unavailable [phone] Reason for Visit Reason Comments Genetic Counseling Family history of cystic fib rosis - Closed Specialty Diagnoses / Procedures Referred By Contact Refer red To Contact Diagnoses Encounter for preconception consultation Pete Martin MD [address] [facility] [place] [address] Referral ID Status Reason Start Date Expiration Date Visits Requ ested Visits Authorized [id number] Closed 04/20/2018 04/20/2019 1 1 Encounter Details Date Type Department Care Team Description 05/28/2018 Office Visit [facility] Pete Martin MD Family history of cystic fibrosis (Primary Dx); Maternal Tracie Nguyễn DO [address] [place], [place] [address] Encounter for preconception consultation [facility] MATERNAL MEDICINE [address] [place], [place] [address] [place] [address] [facility] [address] [place] [address] Social History Tobacco Use Types [...] you attend samaritan or Patient refused 2021 amish services? Do [...] or slept in a assisted (including now)? Sex Assigned at Date Recorded Female 03/25/2021 2:01 PM CDT documented as of this encounter Progress Notes Jacob Man, GC - 05/28/2018 1:30 PM CDT [facility] Genetic Counseling Consult Patient: Tameka Grissom Date of : 1985 Date of Service: 05/28/18 Tameka Grissom was seen at [facility] for genetic consultation for a preconception genetic counseling appointment to discuss her reproductive risks for cystic fibrosis based on the family history of a son with CF. Impression/Plan: 1. Tameka was seen by genetic counseling today to discuss her son's diagnosis of cystic fibrosis and implications for future pregnancies. Dona was expecting today's appointment to be focused on logistics, cost, insurance investigations, timing, and risks of in-vitro fertilization and pre-implantation genetic diagnosis for cystic fibrosis. We discussed that we could discuss these topics in general terms, but that a discussion with an IVF clinic would be better able to answer her questions. Jesulopted to keep our conversation as brief as possible as her primary goals and questions are beyond the scope of what genetic counseling can provide today. 2. We discussed that pre-implantation genetic testing for a known genetic condition such as cystic fibrosis requires knowing the parental mutations that each partner is a carrier of, and that eventually Tameka and her partner would need to have their CFTR variants confirmed with genetic testing. [facility], our clinic can facilitate this testing, and typically the providers who are managing Tameka's son's CF would be able to facilitate as well. 3. Tameka was provided a list of local IVF clinics that are able to facilitate pre-implantation genetic testing as part of their care and was encouraged to contact our clinic with any questions or concerns moving forward. It was a pleasure to be involved with Tameka???s care. Weit-fw-aker time of the meeting was 10 minutes. Jacob Man MS, [facility] Licensed Genetic Counselor Pager: [phone] documented in this encounter Plan of Treatment Not on filedocumented as of this encounter Visit Diagnoses Diagnosis Family history of cystic fibrosis - Prim cresencio Family history of other endocrine and me tabolic diseases Encounter for preconception consultation documented in this encounter Additional Health Concerns Assessment Noted Time PHQ-9 Depression Total Score: 4 09/24/2017 8:33 AM FACILITY PRACTICE SPECIALIST documented as of this encounter Care Teams Quality Assurance Specialist Relationship Specialty Start Date End Date Annalisa Mark APRN PCP - General Nurse Practitioner 03/22/15 MAINTENANCE SUPERINTENDENT [address] [place] [address] Leonor Burgos PCP - Assigned PCP 12/13/17 1 08/05/17 MD [place] [address] [place] [address] documented as of this encounter
--- OUTSIDE RECORDS SUMMARY | 2022-06-06 21:02 | XMS_ITS | Encounter Summary ---
:1985 Author Organization [place] Address [facility] [place] [address] Care Team Providers Name Role Phone DeedeeAnnalisa dean Madonna STANLEY HOMICIDE SQUAD LIEUTENANT Primary Care Provider [phone] Encounter Details Date Type Department Care Team Description 09/19/2017 Virtual Visit [facility], Annalise Meng, [address] [place] [address] HOMICIDE SQUAD LIEUTENANT [address] [address] [place], [place] [phone] (Wo rk) Social History Tobacco Use Types [...] you attend methodist or Patient refused 2021 zoroastrian services? Do you belong to any clubs [...] documented as of this encounter Progress Notes Annalise Garber, JADEN HOMICIDE SQUAD LIEUTENANT - 09/19/2017 4:35 PM CST Date: Clinician: Annalise Garber Clinician Patient: Tameka Grissom Patient : 1985 Patient Address: [address] [place] [place] [address] [place] [address] Patient Visit Protocol: Yeast infection Patient Summary: Tameka is a 32 year old ( : 1985 ) female who initiated a Visit for a presumed vaginal yeast infection. When asked the question Please sign me up to receive news, health information and promotions. , Tameka responded No. 0-5 days ago, she began noticing perivulvar pruritus and vaginal pruritus. She denies having open sores, perivulvar rash, vaginal discharge, and abdominal pain. She also denies feeling feverish. She has had one (1) occurrence in the past year and the current symptoms are similar to previous yeast infections. She has not tried to treat her current symptoms with any medication. She denies taking antibiotics in the past 2 weeks. She prefers a fluconazole (Diflucan) Pill. She denies and denies . She has menstruated in the past month. She denies risk factors for sexually transmitted infections. She does NOT smoke or use smokelesstobacco. MEDICATIONS: control pill She is taking control. , ALLERGIES: NKDA Clinician Response: Dear Tameka, Based on the information you have provided, you likely have a vaginal yeast infection which is a common infection of the vagina caused by a fungus. I am prescribing: Fluconazole (Diflucan) 150 mg oral tablet to treat your yeast infection. Swallow one (1) tablet as a single dose. There are no refills with this prescription. While you have yeast infection symptoms, do the following: Avoid irritants such as scented bath products, tampons, pads, or vaginal sprays and powders. Avoid douching. Wear cotton underwear and if you are comfortable doing so, do not wear underwear to bed. Avoid hot tubs and whirlpool spas. Most women notice improvement in their symptoms within 1-2 days after starting treatment with complete clearing in 5-7 days. If your symptoms have not improved in 3 days or not resolved in 10 days, please schedule an appointment to see your primary care provider for an evaluation as your symptoms maybe caused by an infection other than yeast. Sometimes yeast infections can be associated with other vaginal infections or with sexually transmitted infections (STIs). If you think you may be at risk for a STI please be seen in a clinic. Diagnosis: Radha Vulvovaginitis Diagnosis ICD: B37.3 Prescription: fluconazole (Diflucan) 150mg oral tablet 1 tablet, 1 days supply. Take one tablet by mouth one time a day for 1 day. Refills: 0, Refill as needed: no, Allow substitutions: yes Pharmacy: [facility] [id number] [facility] [employer] - - [address] [address] 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, [place] [address] CELL ASSEMBLY SUPERVISOR documented in this encounter Plan of Treatment Not on filedocumented as of this encounter Visit Diagnoses Not on filedocumented in this encounter Additional Health Concerns Assessment Noted Time PHQ-9 Depression Total Score: 0 12/30/2016 7:26 AM CDT documented as of this encounter Care Teams Clothing Busheler Relationship Specialty Start Date End Date Annalisa Mark APRN CNP PCP - General Nurse Practitioner 03/22/15 [address] [place] [address] documented as of this encounter
--- OUTSIDE RECORDS SUMMARY | 2022-06-06 21:02 | XMS_ITS | Encounter Summary ---
:1985 Author Organization [place] Address [facility] [place] [address] Care Team Providers Name Role Phone Annalisa Mark APRN, CNP Primary Care Provider [phone] Leonor Burgos MD Unavailable [phone] DeedeeAnnalisa dean APRN, CNP Unavailable [phone] DeedeeAnnalisa dean APRN, CNP Unavailable [phone] Reason for Visit Reason Onset Date Comments Results 06/05/2018 Encounter Details Date Type Department Care Team Description 06/05/2018 Telephone [facility] Annalisa Mark, Results [place] [facility] [phone] [place] [address] (Wo rk) Social History Tobacco [...] you attend denominational or Patient refused 2021 protestant services? Do [...] Encounter - Annalisa Mark APRN CNP - 06/05/2018 3:45 PM ACTIVITY MANAGER Spoke with Tameka and informed her of her glucose level of 47, this was not fasting, had ate a burger, fries at 1230, labs at 1540. Continues to have issues with dizziness, no other symptoms. Suggested eating small frequent meals with complex carbohydrates. Return on 06/07 at 0730 for fasting labs. Discussed carrying a candy bar with her in case symptoms of hypoglycemia increase. Annalisa Mark, JON VITY MANAGER documented in this encounter Plan of Treatment Not on filedocumented as of this encounter Results Hemoglobin A1c (06/07/2018 7:38 AM ACTIVITY MANAGER) P athologist Signature Hemoglobin A1C 5.2 0 - 5.6 % 06/07/2018 [facility] [place] 8:23 AM ACTIVITY MANAGER [facility] Comment: Normal <5.7% Prediabetes 5.7-6.4% ??Diab etes 6.5% or higher - adopted from ADA consensus guidelines. Specimen Anatomical Collection Method Collection Time Receive d Time (Source) Location / / Volume Laterality Blood specimen 06/07/2018 7:38 AM 018 7:39 (specimen) ACTIVITY MANAGER AM ACTIVITY MANAGER Annalisa Mark APRN, CNP LAB - BLOOD ORDERABLES Performing Organization Address City/State/ZIP Code Phon e Number [facility] [address] [place], [place] [phone] documented in this encounter Visit Diagnoses Diagnosis Hypoglycemia - Primary Hypoglycemia, unspecified documented in this encounter Additional Health Concerns Assessment Noted Time PHQ-9 Depression Total Score: 7 06/04/2018 3:40 PM ACTIVITY MANAGER documented as of this encounter Care Teams Silverware Assembler Relationship Specialty Start Date End Date Annalisa Mark APRN PCP - General Nurse Practitioner 03/22/15 [address] [address] [place] [address] Leonor Burgos PCP - Assigned PCP 12/13/17 1 08/05/17 [place] [address] [place], [place] [phone] Annalisa Mark APRN PCP - Assigned PCP 06/06/18 09/28/18 [address] [address] [place] [address] Annalisa Mark APRN Assigned PCP 06/06/18 1 09/02/18 [address] [address] [place], [place] [phone] documented as of this encounter
--- OUTSIDE RECORDS SUMMARY | 2022-06-06 21:02 | XMS_ITS | Encounter Summary ---
:1985 Author Organization [place] Address [address] [place], [place] [address]. [place] [address] Care Team Providers Name Role Phone Annalisa Mark APRN, CNP Primary Care Provider [phone] Annalisa Mark APRN RIVET DRIVER Unavailable [phone] Encounter Details Date Type Department Care Team Description 12/02/2018 Travel Social History Tobacco Use Types Packs/Day [...] you attend scientologist or Patient refused 2021 pentecostal services? Do [...] or slept in a halfway (including now)? Sex Assigned at Date Recorded Female 03/25/2021 2:01 PM CDT documented as of this encounter Plan of Treatment Not on filedocumented as of this encounter Visit Diagnoses Not on filedocumented in this encounter Additional Health Concerns Assessment Noted Time PHQ-9 Depression Total Score: 7 06/04/2018 3:40 PM CARBOY FILLER documented as of this encounter Care Teams Social Media Community Manager Relationship Specialty Start Date End Date Annalisa Mark APRN RIVET DRIVER PCP - General Nurse Practitioner 03/22/15 [address] [place], [place] [phone] Annalisa Mark APRN RIVET DRIVER Assigned PCP 06/06/18 07/02/19 [address] [place], [place] [phone] documented as of this encounter
--- OUTSIDE RECORDS SUMMARY | 2022-06-06 21:02 | XMS_ITS | Encounter Summary ---
:1985 Author Organization [place] Address [address] [facility] [place] [address] Care Team Providers Name Role Phone Deedee, Annalisa Peacock APRN, CNP Primary Care Provider [phone] DeedeeAnnalisa dean APRN CONTACT LENS FITTER Unavailable [phone] DeedeeAnnalisa dean APRN CONTACT LENS FITTER Unavailable [phone] Reason for Visit Reason Comments Cough productive cough X 4-5 days Encounter Details Date Type Department Care Team Description 07/06/2018 Office Visit [facility] Chanel Man, Mauro e bilateral low back pain without sciatica (Primary Dx); [facility] [place] PA-C Acute pharyngitis, unspecified etiology; [address] [facility] [id number] [place] [address] Lymphadenopathy; [place], [place] Influen za-like illness [phone] (Wo rk) Social History Tobacco Use Types [...] you attend baptist or Patient refused 2021 sabianism services? Do [...] Sign Reading Time Taken Comments Blood Pressure 104/71 07/06/2018 2:09 PM DIVISION CONTROLLER Pulse 104 07/06/2018 2:09 PM DIVISION CONTROLLER Temperature 37.3 ??C (99.2 ??F) 07/06/2018 2:09 PM DIVISION CONTROLLER Respiratory Rate 16 07/06/2018 2:09 PM DIVISION CONTROLLER Oxygen Saturation 100% 07/06/2018 2:09 PM DIVISION CONTROLLER Inhaled Oxygen Concentration - - Weight 52.2 kg (115 lb) 07/06/2018 2:09 PM DIVISION CONTROLLER Height - - Body Mass Index 20.37 04/19/2018 2:38 PM CDT documented in this encounter Progress Notes Chanel Man PA-C - 07/06/2018 1:45 PM CST SUBJECTIVE: Tameka Grissom is a 33 year old female who presents to clinic today for the following health issues: Acute Illness Acute illness concerns: Cough Onset: X 4-5 days ?? Fever: no ?? Chills/Sweats: no ?? Headache (location?): YES ?? Sinus Pressure:not sure ?? Conjunctivitis: no ?? Ear Pain: no ?? Rhinorrhea: no ?? Congestion: no ?? Sore Throat: YES ?? Cough: YES-productive of unknown color sputum ?? Wheeze: no ?? Decreased Appetite: YES ?? Nausea: YES ?? Vomiting: no ?? Diarrhea: YES ?? Dysuria/Freq.: no ?? Fatigue/Achiness: YES ?? Sick/Strep Exposure: no, but notes RSV at her son's daycare Therapies Tried and outcome: Airborne, this did not help. Concerned as her son is 19 months old and has CF. Has noticed a low back ache for 3 days, symptoms are intermittent. Would like checked for UTI. No dysuria. Also has noticed a lump on left posterior neck for past 6-8 weeks. Problem list and histories reviewed & adjusted, [...] by Provider ROS: Constitutional, HEENT, cardiovascular, pulmonary, gi and gu systems are negative, except as otherwise noted. OBJECTIVE: BP 104/71 (BP Location: Right arm, Patient Position: Chair, Cuff Size: Adult Regular) Pulse 104 Temp 99.2 ??F (37.3 ??C) (Oral) Resp 16 Wt 52.2 kg (115 lb) LMP 07/02/2018 (Approximate) [id number]% BMI 20.37 kg/m?? Body mass index is 20.37 kg/m??. GENERAL APPEARANCE: healthy, alert and no distress HENT: ear canals and TM's normal and nose and mouth without ulcers or lesions RESP: lungs clear to auscultation - no rales, rhonchi or wheezes CV: regular rates and rhythm, normal S1 S2, no S3 or S4 and no murmur, click or rub LYMPHATICS: posterior cervical: positive, left Diagnostic Test Results: Results for orders placed or performed in visit on 07/06/18 (from the past 24 hour(s)) *UA reflex to Microscopic and Culture ([facility] (except [facility] and [place]) Result Value Ref Range Color Urine Straw Appearance Urine Clear Glucose Urine Negative NEG^Negative mg/dL Bilirubin Urine Negative NEG^Negative Ketones Urine Negative NEG^Negative mg/dL Specific Stanley Urine <=1.005 1.003 - 1.035 Blood Urine Negative NEG^Negative pH Urine 6.0 5.0 - 7.0 pH Protein Albumin Urine Negative NEG^Negative mg/dL Urobilinogen Urine 0.2 0.2 - 1.0 EU/dL Nitrite Urine Negative NEG^Negative Leukocyte Esterase Urine Negative NEG^Negative Source Midstream Urine CBC with platelets Result Value Ref Range WBC 9.0 4.0 - 11.0 10e9/L RBC Count 4.41 3.8 - 5.2 10e12/L Hemoglobin 13.4 11.7 - 15.7 g/dL Hematocrit 41.7 35.0 - 47.0 % MCV 95 78 - 100 fl MCH 30.4 26.5 - 33.0 pg MCHC 32.1 31.5 - 36.5 g/dL RDW 12.3 10.0 - 15.0 % Platelet Count 183 150 - 450 10e9/L ASSESSMENT/PLAN: 1. Acute bilateral low back pain without sciatica Monitor. Urine normal. - *UA reflex to Microscopic and Culture ([facility] (except [facility] and [place]) 2. Acute pharyngitis, unspecified etiology Supportive cares. - azithromycin (ZITHROMAX) 250 MG tablet; Two tablets first day, then one tablet daily for four days. Dispense: 6 tablet; Refill: 0 3. Lymphadenopathy Monitor. If symptoms persist return to clinic or call. May need imaging. - CBC with platelets Chanel Man PA-C [facility] SION CONTROLLER documented in this encounter Miscellaneous Notes Addendum Note - Chanel Man PA-C - 07/06/2018 1:45 PM DIVISION CONTROLLER Addended by: CHANEL MAN on: 07/06/2018 04:50 PM Modules accepted: Orders SION CONTROLLER documented in this encounter Plan of Treatment Not on filedocumented as of this encounter Procedures Procedure Name Priority Date/Time Associated Diagnosis Comme nts CBC WITH PLATELETS STAT 07/06/2018 2:33 Lymphadenopathy Res ults for this PM DIVISION CONTROLLER procedure are i n the results section. UA MACROSCOPIC WITH STAT 07/06/2018 2:15 Acute bilateral lo w Results for this REFLEX TO PM DIVISION CONTROLLER back pain without procedure are in MICROSCOPIC AND sciatica the results CULTURE section. documented in this encounter Results CBC with platelets (07/06/2018 2:33 PM DIVISION CONTROLLER) P athologist Signature WBC 9.0 4.0 - 11.0 07/06/2018 [facility] 10e9/L 2:46 PM DIVISION CONTROLLER [facility] RBC Count 4.41 3.8 - 5.2 07/06/2018 [facility] 10e12/L 2:46 PM DIVISION CONTROLLER [facility] Hemoglobin 13.4 11.7 - 07/06/2018 [facility] 15.7 g/dL 2:46 PM DIVISION CONTROLLER [facility] Hematocrit 41.7 35.0 - 07/06/2018 [facility] 47.0 % 2:46 PM DIVISION CONTROLLER [facility] MCV 95 78 - 100 07/06/2018 [place] fl 2:46 PM DIVISION CONTROLLER [facility] MCH 30.4 26.5 - 07/06/2018 [facility] 33.0 pg 2:46 PM DIVISION CONTROLLER [facility] MCHC 32.1 31.5 - 07/06/2018 [facility] 36.5 g/dL 2:46 PM DIVISION CONTROLLER [facility] RDW 12.3 10.0 - 07/06/2018 [facility] 15.0 % 2:46 PM DIVISION CONTROLLER [facility] Platelet Count 183 150 - 450 07/06/2018 [facility] 10e9/L 2:46 PM DIVISION CONTROLLER [facility] Specimen Anatomical Collection Method Collection Time Receive d Time (Source) Location / / Volume Laterality Blood specimen 07/06/2018 2:33 PM 018 2:34 (specimen) DIVISION CONTROLLER PM DIVISION CONTROLLER Chanel Man PA-C LAB - BLOOD ORDERABLES Performing Organization Address City/State/ZIP Code Phon e Number [facility] [address] [place] [address] *UA reflex to Microscopic and Culture ([facility] (except [place] and [place]) (07/06/2018 2:15 PM DIVISION CONTROLLER) Patholo gist Method Time Signature Color Urine Straw 07/06/2018 [facility] 2:24 PM DIVISION CONTROLLER [facility] Appearance Urine Clear 07/06/2018 [facility] 2:24 PM DIVISION CONTROLLER [facility] Glucose Urine Negative NEG^Negat 07/06/2018 [place] liudmila mg/dL 2:24 PM DIVISION CONTROLLER [facility] Bilirubin Urine Negative NEG^Negat 07/06/2018 [facility] liudmila 2:24 PM DIVISION CONTROLLER [facility] Ketones Urine Negative NEG^Negat 07/06/2018 [place] liudmila mg/dL 2:24 PM DIVISION CONTROLLER [facility] Specific Stanley <=1.005 1.003 - 07/06/2018 [place] Urine 1.035 2:24 PM DIVISION CONTROLLER [facility] Blood Urine Negative NEG^Negat 07/06/2018 [facility] liudmila 2:24 PM DIVISION CONTROLLER [facility] pH Urine 6.0 5.0 - 7.0 07/06/2018 [place] pH 2:24 PM DIVISION CONTROLLER [facility] Protein Albumin Negative NEG^Negat 07/06/2018 [place] Urine liudmila mg/dL 2:24 PM DIVISION CONTROLLER [facility] Urobilinogen 0.2 0.2 - 1.0 07/06/2018 [place] Urine EU/dL 2:24 PM DIVISION CONTROLLER [facility] Nitrite Urine Negative NEG^Negat 07/06/2018 [facility] liudmila 2:24 PM DIVISION CONTROLLER [facility] Leukocyte Negative NEG^Negat 07/06/2018 [place] Esterase Urine liudmila 2:24 PM DIVISION CONTROLLER [facility] Source Midstream 07/06/2018 [place] Urine 2:16 PM DIVISION CONTROLLER [facility] Specimen (Source) Anatomical Collection Method Collection Time Re ceived Time Location / / Volume Laterality Examination of 07/06/2018 2:15 07/06/2018 2:16 midstream urine PM DIVISION CONTROLLER PM DIVISION CONTROLLER specimen (procedure) Chanel Man PA-C LAB - URINE ORDERABLES Performing Organization Address City/State/ZIP Code Phon e Number [facility] [address] [place], [place] [phone] documented in this encounter Visit Diagnoses Diagnosis Acute bilateral low back pain without sc iatica - Primary Acute pharyngitis, unspecified etiology Lymphadenopathy Enlargement of lymph nodes Influenza-like illness Influenza with other respiratory manifes tations documented in this encounter Additional Health Concerns Assessment Noted Time PHQ-9 Depression Total Score: 7 06/04/2018 3:40 PM DIVISION CONTROLLER documented as of this encounter Care Teams Hogshead Cooper Relationship Specialty Start Date End Date Annalisa Mark APRN PCP - General Nurse Practitioner 03/22/15 CONTACT LENS FITTER [address] [place] [address] Annalisa Mark APRN PCP - Assigned PCP 06/06/18 09/28/18 CONTACT LENS FITTER [address] [place] [address] Annalisa Mark APRN Assigned PCP 06/06/18 1 09/02/18 CONTACT LENS FITTER [address] [place] [address] documented as of this encounter
--- OUTSIDE RECORDS SUMMARY | 2022-06-06 21:02 | XMS_ITS | Encounter Summary ---
:1985 Author Organization [place] Address [address] [place], [place] [address]. [place] [address] Care Team Providers Name Role Phone Annalisa Mark APRN, CNP Primary Care Provider [phone] Annalisa Mark APRN CLOTH STOCK SORTER Unavailable [phone] Annalisa Mark APRN CLOTH STOCK SORTER Unavailable [phone] Encounter Details Date Type Department Care Team Description 09/22/2018 Travel Social History Tobacco Use Types Packs/Day [...] you attend hoahaoism or Patient refused 2021 sikhism services? Do you belong to any clubs [...] slept in a skilled nursing (including now)? Sex Assigned at Date Recorded Female 03/25/2021 2:01 PM CDT documented as of this encounter Plan of Treatment Not on filedocumented as of this encounter Visit Diagnoses Not on filedocumented in this encounter Additional Health Concerns Assessment Noted Time PHQ-9 Depression Total Score: 7 06/04/2018 3:40 PM DIRECTOR [employer]ATE[employer]IC [employer]NERSHIPS documented as of this encounter Care Teams Copy Chaser Relationship Specialty Start Date End Date Annalisa Mark APRN PCP - General Nurse Practitioner 03/22/15 CLOTH STOCK SORTER [address] [place] [address] Annalisa Mark APRN PCP - Assigned PCP 06/06/18 09/28/18 CLOTH STOCK SORTER [address] [place] [address] Annalisa Mark APRN Assigned PCP 06/06/18 1 09/02/18 CLOTH STOCK SORTER [address] [place] [address] documented as of this encounter
--- OUTSIDE RECORDS SUMMARY | 2022-06-06 21:02 | XMS_ITS | Encounter Summary ---
:1985 Author Organization [place] Address [facility] [place] [address] Care Team Providers Name Role Phone DeedeeSwapna deanarnulfo Peacock APRN, CNP Primary Care Provider [phone] Reason for Visit Reason Comments URI uri symptoms x2 weeks, c/o r ight ear pain and ST Encounter Details Date Type Department Care Team Description 11/26/2017 Office Visit [facility] Pop Burgos (Primary Dx); [facility] [place] Leonor Maldonado MD Ear discomfort, right; [address] [address] [facility] [place] [address] [phone] Social History Tobacco Use Types Packs/Day Years [...] you attend nondenominational or Patient refused 2021 religion services? Do [...] Sign Reading Time Taken Comments Blood Pressure 91/64 11/26/2017 3:48 PM CDT Pulse 88 11/26/2017 3:48 PM CDT Temperature 36.9 ??C (98.4 ??F) 11/26/2017 3:48 PM CDT Respiratory Rate 20 11/26/2017 3:48 PM CDT Oxygen Saturation - - Inhaled Oxygen Concentration - - Weight 51.7 kg (114 lb) 11/26/2017 3:48 PM CDT Height 160 cm (5' 3) 11/26/2017 3:48 PM CDT Body Mass Index 20.19 11/26/2017 3:48 PM CDT documented in this encounter Patient Instructions Patient InstructionsLeonor Burgos MD - 11/26/2017 4:51 PM CDT Images from the original note were not included. Earache, No Infection (Adult) Earaches can happen without an infection. This occurs when air and fluid build up behind the eardrumcausing a feeling of fullness and discomfort and reduced hearing. This is called otitis media with effusion (OME) or serous otitis media. It means there is fluid in the middle ear. It is not the same as acute otitis media, which is typically from infection. OME can happen when you have a cold if congestion blocks the passage that drains the middle ear. This passage is called the eustachian tube. OME may also occur with nasal allergies or after a bacterialmiddle ear infection. The pain or discomfort may come and go. You may hear clicking or popping sounds when you chew or swallow. You may feel that your balance is off. Or you may hear ringing in the ear. It often takes from several weeks up to 3 months for the fluid to clear on its own. Oral pain relievers and ear drops help if there is pain. Decongestants and antihistamines sometimes help. Antibioticsdon't help since there is no infection. Your doctor may prescribe a nasal spray to help reduce swelling in the nose and eustachian tube. This can allow the ear to drain. If your OME doesn't improve after 3 months, surgery may be used to drain the fluid and insert a small tube in the eardrum to allow continued drainage. Because the middle ear fluid can become infected, it is important to watch for signs of an ear infection which may develop later. These signs include increased ear pain, fever, or drainage from the ear. Home care The following guidelines will help you care for yourself at home: ?? You may use mojg-rqq-asiumvd medicine as directed to control pain, unless another medicine was prescribed. If you have chronic liver or kidney disease or ever had a stomach ulcer or GI bleeding, talk with your doctor before using these medicines. Aspirin should never be used in anyone under 18 years of age who is ill with a fever. It may cause severe liver damage. ?? You may use doym-jjd-jlgzwbe decongestants such as phenylephrine or pseudoephedrine. But they arenot always helpful. Don't use nasal spray decongestants more than 3 days. Longer use can make congestion worse. Prescription nasal sprays from your doctor don't typically have those restrictions. ?? Antihistamines may help if you are also having allergy symptoms. ?? You may use medicines such as guaifenesin to thin mucus and promote drainage. Follow-up care Follow up with your healthcare provider or as advised if you are not feeling better after 3 days. When to seek medical advice Call your healthcare provider right away if any of the following occur: ?? Your ear pain gets worse or does not start to improve? Fever of 100.4??F (38??C) or higher, or as directed by your healthcare provider ?? Fluid or blood draining from the ear ?? Headache or sinus pain ?? Stiff neck ?? Unusual drowsiness or confusion Date Last Reviewed: 04/26/2016 ?? [id number] [employer]. [address] [place] [address], [place] [address]. All rights reserved. This information is not intended as a substitute for professional medical care. Always follow your healthcare professional's instructions. Earwax, Home Treatment Everyone produces earwax from the lining of the ear canal. It serves to lubricate and protect the ear. The wax that forms in the canal naturally moves toward the outside of the ear and falls out. Sometimes the ear canal may contain too much wax. This can cause a blockage and loss of hearing. Directions are given below for home treatment. Home care If your doctor has advised you to remove a wax blockage yourself, follow these directions: ?? Unless a medicine was prescribed, you may use an tdqe-vis-yhgvqxj product made for clearing earwax. These contain carbamide peroxide. Lie down with the blocked ear facing upward. Apply one dropper full of medicine and wait a few minutes. Grasp the outer ear and wiggle it??to help??the solution??enter the canal. ?? Lean over a sink or basin with the blocked ear facing downward. Use a??bulb syringe filled with warm (not hot or cold) water to rinse the ear several times. Use gentle pressure only. ?? If you are having trouble draining the water out of your ear canal, put a few drops of rubbing alcohol (isopropyl alcohol) into the ear canal. This will help remove the remaining water. ?? Repeat this procedure once a day for up to three days, or until your hearing is back to normal. Do not use this treatment for more than three days in a row. Don???ts ?? Don???t use cold water to rinse the ear. This will make you dizzy. ?? Don???t perform this procedure if you have an ear infection. ?? Don???t perform this procedure if you have a ruptured eardrum. ?? Don???t use cotton swabs, matches, hairpins, keys, or other objects to ???clean?? the ear canal.This can cause infection of the ear canal or rupture??the eardrum. Because of their size and shape, cotton swabs can push earwax deeper into the ear canal instead of removing it. Follow-up care Follow up with your health care provider if you are not improving after three cleaning attempts, or as advised. When to seek medical advice Call your health care provider right away if any of these occur: ?? Worsening ear pain ?? Fever of 101??F (38.3??C) or higher, or as directed by your health care provider ?? Hearing does not return to normal after three days of treatment ?? Fluid drainage or bleeding from the ear canal ?? Swelling, redness, or tenderness of the outer ear ?? Headache, neck pain, or stiff neck ?? [id number] [employer]. [address] [place] [address], [place] [address]. All rights reserved. This information is not intended as a substitute for professional medical care. Always follow your healthcare professional's instructions. documented in this encounter Progress Notes Leonor Burgos MD - 11/26/2017 3:45 PM CDT SUBJECTIVE: Tameka Grissom is a 32 year old female who presents to clinic today for the following health issues: Acute Illness Acute illness concerns: ST and right ear pain Onset: x2 weeks ?? Fever: no ?? Chills/Sweats: no ?? Headache (location?): YES ?? Sinus Pressure:no ?? Conjunctivitis: no ?? Ear Pain: YES: right ?? Rhinorrhea: no ?? Congestion: no ?? Sore Throat: YES- couple of days ago ?? PND: no ?? Cough: YES ?? Wheeze: no ?? Decreased Appetite: YES ?? Nausea: no ?? Vomiting: no ?? Diarrhea: no ?? Dysuria/Freq.: no ?? Fatigue/Achiness: YES ?? Sick/Strep Exposure: YES Therapies Tried and outcome: emergen-C Problem list and histories reviewed & adjusted, [...] visit by clinical staff Tobacco Allergies Meds Reviewed and updated as needed this visit by Provider ROS: Constitutional, HEENT, cardiovascular, pulmonary, gi and gu systems are negative, except as otherwise noted. OBJECTIVE: BP 91/64 (BP Location: Right arm, Patient Position: Chair, Cuff Size: Adult Regular) Pulse 88 Temp 98.4 ??F (36.9 ??C) (Oral) Resp 20 Ht 5' 3 (1.6 m) Wt 114 lb (51.7 kg) LMP 10/29/2017 ? No BMI 20.19 kg/m2 Body mass index is 20.19 kg/(m^2). GENERAL: healthy, alert and no distress HENT: normal cephalic/atraumatic, both ears: occluded with wax, nose and mouth without ulcers or lesions, oropharynx clear and oral mucous membranes moist NECK: no adenopathy, no asymmetry, masses, or scars and thyroid normal to palpation RESP: lungs clear to auscultation - no rales, rhonchi or wheezes CV: regular rate and rhythm, normal S1 S2, Diagnostic Test Results: Results for orders placed or performed in visit on 11/26/17 (from the past 24 hour(s)) Strep, Rapid Screen Result Value Ref Range Specimen Description Throat Rapid Strep A Screen NEGATIVE: No Group A streptococcal antigen detected by immunoassay, await culture report. ASSESSMENT/PLAN: 1. Sore throat - Strep, Rapid Screen- negative - Beta strep group A culture 2. Ear discomfort, right - likely related to #3 3. Bilateral impacted cerumen - ?? Bilateral impacted cerumen. ??Verbal consent obtained. Cerumen disimpacted using a combination of forced water irrigation, bionix lighted curette. Otoscopic Examination at conclusion of procedure confirms clean ear Canal and normal tympanic membrane. See Patient Instructions Leonor Burgos MD [facility] documented in this encounter Plan of Treatment Not on filedocumented as of this encounter Procedures Procedure Name Priority Date/Time Associated Diagnosis Comme nts HC REMOVE IMPACTED Routine 11/26/2017 5:24 PM Bilateral impact ed CERUMEN CDT cerumen BETA HEMOLYTIC Routine 11/26/2017 4:03 PM Sore throat Results for this STREP GROUP A CDT procedure are in CULTURE the results section. RAPID STREP SCREEN Routine 11/26/2017 3:49 PM Sore throat Res ults for this THROAT SWAB CDT procedure are i n the results section. documented in this encounter Results Beta strep group A culture (11/26/2017 4:03 PM CDT) Component Value Ref Test [facility] Range Method Time Signature Specimen Throat [facility] Culture Micro No beta 11/27/2017 [facility] hemolytic 2:06 PM CDT CLINICS Streptococcus TAIBAN Group A isolated Specimen Anatomical Collection Method Collection Time Receive d Time (Source) Location / / Volume Laterality Specimen from 11/26/2017 4:03 PM 11/27/19 18 4:04 throat CDT PM CDT (specimen) Leonor Burgos MD [facility] Performing Organization Address City/[facility] Phon e Number [facility] [address] [place] [address] Strep, Rapid Screen (11/26/2017 3:49 PM CDT) Component Value Ref Test Analysis Performed At [facility] Range Method Time Signature Specimen Throat [facility] Rapid Strep A NEGATIVE: No 11/26/2017 [facility] Screen Group A 4:03 PM CDT CLINICS streptococcal TAIBAN antigen detected by immunoassay, await culture report. Specimen Anatomical Collection Method Collection Time Receive d Time (Source) Location / / Volume Laterality Specimen from 11/26/2017 3:49 PM 11/27/19 18 3:50 throat CDT PM CDT (specimen) Leonor Burgos MD [facility] Performing Organization Address [facility] Phon e Number [facility] [address] [place] [address] documented in this encounter Visit Diagnoses Diagnosis Sore throat - Primary Acute pharyngitis Ear discomfort, right Bilateral impacted cerumen Impacted cerumen documented in this encounter Additional Health Concerns Assessment Noted Time PHQ-9 Depression Total Score: 4 09/24/2017 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
--- OUTSIDE RECORDS SUMMARY | 2022-06-06 21:02 | XMS_ITS | Encounter Summary ---
:1985 Author Organization [place] Address [address] [place] [address] Care Team Providers Name Role Phone DeedeeAnnalisa dean Madonna STANLEY CNP Primary Care Provider [phone] Leonor Burgos MD Unavailable [phone] Reason for Visit Reason Onset Date Comments Refill Request 01/29/2018 citalopram (CELEXA) 10 MG tablet Encounter Details Date Type Department Care Team Description 01/29/2018 Refill [facility] Kerri Paredes, BED CONTROL SPECIALIST Refill Request Clinic [facility] (citalopram (CELEXA) 10 [address] [facility] MG tablet ) [employer] [employer], [place] [address] [address] [place] [address] [phone] (Wo rk) Social History Tobacco Use Types [...] you attend restoration or Patient refused 2021 methodist services? Do [...] this encounter Miscellaneous Notes Telephone Encounter - Latoya Higuera RN - 01/29/2018 7:21 AM CDT Per mychart response pt is no longer taking rx denied FLAVIO Wilson RNN Telephone Encounter - Latoya Higuera RN - 01/29/2018 7:12 AM CDT Mychart sent to verify if pt is still taking FLAVIO Wilson RNN Telephone Encounter - Nayan Epps - 01/29/2018 6:59 AM CDT Requested Prescriptions Pending Prescriptions Disp Refills ??? citalopram (CELEXA) 10 MG tablet [Pharmacy Med Name: CITALOPRAM HBR 10 MG TABLET] 30 tablet 3 MEDICATION DISCONTINUED ON 11/26/2017 Last Written Prescription Date: 09/23/2017 Last Fill Quantity: 30 tablet, # refills: 3 Last office visit: 11/26/2017 with prescribing provider: 09/23/2017 Future Office Visit: Sig: TAKE 1 TABLET (10 MG) BY MOUTH DAILY SSRIs Protocol Passed 01/29/2018 2:04 AM Passed - PHQ-9 score less than 5 in past 6 months Please review last PHQ-9 score. Passed - Patient is age 18 or older Passed - No active on record Passed - No positive test in last 12 months Passed - Recent (6 mo) or future (30 days) visit within the authorizing provider's specialty Patient had office visit in the last 6 months or has a visit in the next 30 days with authorizing provider or within the authorizing provider's specialty. See Patient Info tab in inbasket, or Choose Columns in Meds & Orders section of the refill encounter. 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
--- OUTSIDE RECORDS SUMMARY | 2022-06-06 21:02 | XMS_ITS | Encounter Summary ---
:1985 Author Organization [facility] Address [address] [place] [address]. [place] [address] Care Team Providers Name Role Phone Annalisa Mark APRN, CNP Primary Care Provider [phone] Annalisa Mark APRN BID WRITER Unavailable [phone] Encounter Details Date Type Department Care Team Description 12/08/2018 [facility] Only [facility] Ot [facility] fatigue; [place] [facility] or CARDIOVASCULAR SCREENING; LD L GOAL LESS THAN 160 [address] [place] [address] Social History Tobacco Use Types [...] or relatives? How often do you attend confucianist or Patient refused 2021 holiness services? Do you belong to any clubs or No 10/17/2021 organizations such as confucianist groups, unions, fraternal or athletic groups, or [...] slept in a nursing home (including now)? Sex Assigned at Date Recorded Female 03/25/2021 2:01 PM CDT documented as of this encounter Miscellaneous Notes Result Encounter Note - Annalisa Mark APRN CNP - 12/08/2018 8:00 AM CDT Ben English, Your CBC (checks for anemia and infection) is normal. Sincerely, Annalisa Mark CNP Result Encounter Note - Annalisa Mark APRN CNP - 12/08/2018 8:00 AM CDT Ben English, Your vitamin D level is normal at 41. Sincerely, Annalisa Mark CNP Result Encounter Note - Annalisa Mark APRN CNP - 12/08/2018 8:00 AM CDT Ben English, Your lab results are as below: 1) TSH (thyroid level) 0.83 which is normal (range 0.4-4) 2) Cholesterol is normal at 189, your LDL (bad cholesterol) and your HDL (good cholesterol) are within normal range. 3) Glucose is normal at 80 (normal fasting is <100). If you have any questions do not hesitate to call the clinic to discuss the results with me further. Sincerely, Annalisa Mark CNP documented in this encounter Plan of Treatment Not on filedocumented as of this encounter Procedures Procedure Name Priority Date/Time Associated Diagnosis Comme nts CBC WITH PLATELETS & Routine 12/08/2018 8:05 CARDIOVASCULAR Re sults for this DIFFERENTIAL AM CDT SCREENING; LDL GOAL procedur e are in LESS THAN 160 the results Other fatigue section. VITAMIN D DEFICIENCY Routine 12/08/2018 8:05 Other fatigue Res ults for this SCREENING AM CDT procedure are i n the results section. TSH WITH FREE T4 Routine 12/08/2018 8:05 Other fatigue Results for this REFLEX AM CDT procedure are i n the results section. LIPID REFLEX TO Routine 12/08/2018 8:05 CARDIOVASCULAR Results for this DIRECT LDL PANEL AM CDT SCREENING; LDL GOAL proc edure are in LESS THAN 160 the results section. COMPREHENSIVE Routine 12/08/2018 8:05 Other fatigue Results fo r this METABOLIC PANEL AM CDT procedure ar e in the results section. documented in this encounter Results CBC with platelets differential (12/08/2018 8:05 AM CDT) [facility] Method Time Signature WBC 8.8 4.0 - 12/08/2018 [facility] 11.0 8:21 AM CDT [facility] 10e9/L [place] RBC Count 4.47 3.8 - 5.2 12/08/2018 [facility] 10e12/L 8:21 AM CDT [facility] [place] Hemoglobin 13.9 11.7 - 12/08/2018 [facility] 15.7 g/dL 8:21 AM CDT [facility] [place] Hematocrit 41.5 35.0 - 12/08/2018 [facility] 47.0 % 8:21 AM CDT [facility] [place] MCV 93 78 - 100 12/08/2018 [facility] fl 8:21 AM CDT [facility] [place] MCH 31.1 26.5 - 12/08/2018 [facility] 33.0 pg 8:21 AM CDT [facility] [place] MCHC 33.5 31.5 - 12/08/2018 [facility] 36.5 g/dL 8:21 AM CDT [facility] [place] RDW 12.4 10.0 - 12/08/2018 [facility] 15.0 % 8:21 AM CDT [facility] [place] Platelet Count 205 150 - 450 12/08/2018 [facility] 10e9/L 8:21 AM CDT [facility] [place] % Neutrophils 58.5 % 12/08/2018 [facility] 8:21 AM CDT [facility] [place] % Lymphocytes 34.7 % 12/08/2018 [facility] 8:21 AM CDT [facility] [place] % Monocytes 5.6 % 12/08/2018 [facility] 8:21 AM CDT [facility] [place] % Eosinophils 0.9 % 12/08/2018 [facility] 8:21 AM CDT [facility] [place] % Basophils 0.3 % 12/08/2018 [facility] 8:21 AM CDT [facility] [place] Absolute 5.2 1.6 - 8.3 12/08/2018 [facility] Neutrophil 10e9/L 8:21 AM CDT [facility] [place] Absolute 3.1 0.8 - 5.3 12/08/2018 [facility] Lymphocytes 10e9/L 8:21 AM CDT [facility] [place] Absolute 0.5 0.0 - 1.3 12/08/2018 [facility] Monocytes 10e9/L 8:21 AM CDT [facility] [place] Absolute 0.1 0.0 - 0.7 12/08/2018 [facility] Eosinophils 10e9/L 8:21 AM CDT [facility] Absolute 0.0 0.0 - 0.2 12/08/2018 [facility] Basophils 10e9/L 8:21 AM CDT [facility] Diff Method Automated 12/08/2018 [facility] Method 8:21 AM CDT [facility] Specimen Anatomical Collection Method Collection Time Receive d Time (Source) Location / / Volume Laterality Blood specimen 12/08/2018 8:05 AM 019 8:06 (specimen) CDT AM CDT Annalisa Mark ADULT NURSE PRACTITIONER BID WRITER LAB - BLOOD ORDERABLES Performing Organization Address City/State/ZIP Code Phon e Number [facility] [address] [place] [address] Comprehensive metabolic panel (12/08/2018 8:05 AM CDT) P athologist Signature Sodium 138 133 - 144 12/09/2018 [facility] mmol/L 6:05 PM CDT [facility] [place] Potassium 4.4 3.4 - 5.3 12/09/2018 [facility] mmol/L 6:05 PM CDT [facility] [place] Chloride 106 94 - 109 12/09/2018 [facility] mmol/L 6:05 PM CDT [facility] [place] Carbon Dioxide 27 20 - 32 12/09/2018 [facility] mmol/L 6:12 PM CDT [facility] [place] Anion Gap 5 3 - 14 12/09/2018 [facility] mmol/L 6:12 PM CDT [facility] [place] Glucose 80 70 - 99 12/09/2018 [facility] mg/dL 6:12 PM CDT [facility] [place] Comment: Fasting specimen Urea Nitrogen 14 7 - 30 mg/dL 12/09/2018 6:12 PM CDT [facility] Creatinine 0.78 0.52 - 1.04 mg/dL 12/09/2018 6:12 PM CD T [facility] GFR Estimate >90 >60 12/09/2018 6:12 PM [facility] mL/min/{1.73_m2} [place] Comment: Non GFR Calc Starting 07/13/2018, serum creatinine ba sed estimated GFR (eGFR) will be calculated using the Chronic Kidney Dise [facility] Epidemiology Collaboration (CKD-EPI) equation. GFR Estimate If >90 >60 mL/min/{1.73_m2} 12/09/2018 6: 12 PM [facility] Black [facility] Comment: GFR Calc Starting 07/13/2018, serum creatinine ba sed estimated GFR (eGFR) will be calculated using the Chronic Kidney Dise [facility] Epidemiology Collaboration (CKD-EPI) equation. Calcium 9.0 8.5 - 10.1 mg/dL 12/09/2018 6:12 PM [facility] Bilirubin Total 0.6 0.2 - 1.3 mg/dL 12/09/2018 6:15 PM [facility] Albumin 4.4 3.4 - 5.0 g/dL 12/09/2018 6:15 PM [facility] Protein Total 7.6 6.8 - 8.8 g/dL 12/09/2018 6:15 PM [facility] Alkaline Phosphatase 72 40 - 150 U/L 12/09/2018 6:15 PM [facility] ALT 29 0 - 50 U/L 12/09/2018 6:15 PM [facility] AST 16 0 - 45 U/L 12/09/2018 6:15 PM [facility] Specimen Anatomical Collection Method Collection Time Receive d Time (Source) Location / / Volume Laterality Blood specimen 12/08/2018 8:05 AM 019 8:06 (specimen) CDT AM CDT Annalisa Mark APRN BID WRITER LAB - BLOOD ORDERABLES Performing Organization Address City/State/ZIP Code Phon e Number [facility] [address] [place] [address] (ABNORMAL) Lipid panel reflex to direct LDL Fasting (12/08/2018 8:05 AM CDT) athologist Signature Cholesterol 189 <200 mg/dL 12/09/2018 [facility] 6:12 PM CDT [facility] Triglycerides 54 <150 mg/dL 12/09/2018 [facility] 6:12 PM CDT [facility] Comment: Fasting specimen HDL Cholesterol 73 >49 mg/dL 12/09/2018 6:14 PM [facility] LDL Cholesterol 105 (H) <100 mg/dL 12/09/2018 6:14 PM [facility] Calculated T [place] Comment: Above desirable: ??100-129 mg/dl Borderline High: ??130-159 mg/dL High: ? 160-189 mg/dL Very high: ? >189 mg/dl Non HDL Cholesterol 116 <130 mg/dL 12/09/2018 6:14 PM CDT [facility] Specimen Anatomical Collection Method Collection Time Receive d Time (Source) Location / / Volume Laterality Blood specimen 12/08/2018 8:05 AM 019 8:06 (specimen) CDT AM CDT Annalisa Mark APRN, CNP LAB - BLOOD ORDERABLES Performing Organization Address City/[facility] Phon e Number [facility] [address] [place] [address] TSH with free T4 reflex (12/08/2018 8:05 AM CDT) athologist Signature TSH 0.83 0.40 - 4.00 12/09/2018 [facility] mU/L 6:23 PM CDT [facility] Specimen Anatomical Collection Method Collection Time Receive d Time (Source) Location / / Volume Laterality Blood specimen 12/08/2018 8:05 AM 019 8:06 (specimen) CDT AM CDT Annalisa Mark APRN, CNP LAB - BLOOD ORDERABLES Performing Organization Address [facility] Phon e Number [facility] [address] [place] [address] Vitamin D Deficiency (12/08/2018 8:05 AM CDT) P athologist Signature Vitamin D 41 20 - 75 12/08/2018 [facility] ug/L 4:24 PM CDT [place] [facility] Comment: Season, race, dietary intake, and treatm ent affect the concentration of 71-zvtyjgh-Zrrzvwk D. Values may decreas e during winter [...] Organization Address City/State/ZIP Code Phon e Number [address] documented in this encounter Visit Diagnoses Diagnosis Other fatigue CARDIOVASCULAR SCREENING; LDL GOAL LESS THAN 160 documented in this encounter Additional Health Concerns Assessment Noted Time PHQ-9 Depression Total Score: 3 12/07/2018 7:05 AM CDT documented as of this encounter Care Teams Launderette Attendant Relationship Specialty Start Date End Date Annalisa Mark APRN BID WRITER PCP - General Nurse Practitioner 03/22/15 [address] [place] [address] Annalisa Mark APRN CNP Assigned PCP 06/06/18 07/02/19 [address] [place] [address] documented as of this encounter
--- OUTSIDE RECORDS SUMMARY | 2022-06-06 21:02 | XMS_ITS | Encounter Summary ---
:1985 Author Organization [facility] Address [facility] [place] [address] Care Team Providers Name Role Phone Deedee, Annalisa Peacock APRN, CNP Primary Care Provider [phone]IVE IN THEATER ATTENDANT Unavailable [phone] [address]N DRIVE IN THEATER ATTENDANT Unavailable [phone] Reason for Visit Reason Comments Allied Health Visit Flu Swab per Chanel Asher Encounter Details Date Type Department Care Team Description 07/06/2018 Allied Health/Nurse [facility] All ied Health Visit Visit Clinic [place] (Flu Swab per [facility]... [address] [place] [address] Social History Tobacco Use Types Packs/Day Years [...] you attend mandaen or Patient refused 2021 hoahaoism services? Do [...] Sign Reading Time Taken Comments Blood Pressure 106/66 07/06/2018 6:23 PM INVESTIGATIONS CHIEF Pulse 106 07/06/2018 6:23 PM INVESTIGATIONS CHIEF Temperature 37.3 ??C (99.2 ??F) 07/06/2018 6:23 PM INVESTIGATIONS CHIEF Respiratory Rate 14 07/06/2018 6:23 PM INVESTIGATIONS CHIEF Oxygen Saturation 100% 07/06/2018 6:23 PM INVESTIGATIONS CHIEF Inhaled Oxygen Concentration - - Weight - - Height - - Body Mass Index - - documented in this encounter Progress Notes Avery Boswell MA - 07/06/2018 6:00 PM CST Pt presents to clinic for a flu swab per order from Chanel Asher PA-C. Results came back NEGATIVE.Please follow up with patient accordingly. See Note for current vitals from visit. Avery Boswell FUEL CELL ASSEMBLER (AAMA) STIGATIONS CHIEF documented in this encounter Plan of Treatment Not on filedocumented as of this encounter Procedures Procedure Name Priority Date/Time Associated Diagnosis Comme nts INFLUENZA A/B Routine 07/06/2018 5:54 PM Upper respiratory Res ults for this ANTIGEN INVESTIGATIONS CHIEF tract infection, procedure a re in unspecified type the results section. documented in this encounter Results Influenza A/B antigen (07/06/2018 5:54 PM INVESTIGATIONS CHIEF) Analysis Performed At Patho logist Time Signature Influenza A/B Nasal 07/06/2018 [facility] Agn Specimen 5:59 PM INVESTIGATIONS CHIEF [facility] Influenza A Negative NEG^Negati 07/06/2018 [facility] ve 6:19 PM INVESTIGATIONS CHIEF [facility] Influenza B Negative NEG^Negati 07/06/2018 [facility] ve 6:19 PM INVESTIGATIONS CHIEF [facility] Comment: Test results must be correlated with cli nical data. If necessary, results should be confirmed by a molecular assay or viral culture. Specimen Anatomical Collection Method Collection Time Receive d Time (Source) Location / / Volume Laterality Specimen from 07/06/2018 5:54 PM 07/06/20 18 5:59 nose (specimen) INVESTIGATIONS CHIEF PM INVESTIGATIONS CHIEF Chanel Asher PA-C LAB - MICRO GENERAL ORDERABL ES Performing Organization Address City/State/ZIP Code Phon e Number [address] [address] documented in this encounter Visit Diagnoses Diagnosis Upper respiratory tract infection, unspe cified type documented in this encounter Additional Health Concerns Assessment Noted Time PHQ-9 Depression Total Score: 7 06/04/2018 3:40 PM INVESTIGATIONS CHIEF documented as of this encounter Care Teams Belt Worker Relationship Specialty Start Date End Date Annalisa Mark APRN PCP - General Nurse Practitioner 03/22/15 DR[address] IN THEATER ATTENDANT [address] [place] [address] Annalisa Mark APRN PCP - Assigned PCP 06/06/18 09/28/18 DRIVE IN THEATER ATTENDANT [address] [place] [address] Annalisa Mark APRN Assigned PCP 06/06/18 1 09/02/18 DRIVE IN THEATER ATTENDANT [address] [place] [address] documented as of this encounter
--- OUTSIDE RECORDS SUMMARY | 2022-06-06 21:02 | XMS_ITS | Encounter Summary ---
:1985 Author Organization [facility] Address [address] [place], [place] [address]. [place] [address] Care Team Providers Name Role Phone Deedee Annalisa Peacock APRN, CNP Primary Care Provider [phone] Annalisa Mark APRN CHECK CASHIER Unavailable [phone] Annalisa Mark APRN CHECK CASHIER Unavailable [phone] Encounter Details Date Type Department Care Team Description 07/06/2018 Travel Social History Tobacco Use Types Packs/Day [...] you attend muslim or Patient refused 2021 sabianist services? Do [...] Depression Total Score: 7 06/04/2018 3:40 PM PRESS SHOP SUPERVISOR documented as of this encounter Care Teams Binder Layer Relationship Specialty Start Date End Date Annalisa Mark APRN PCP - General Nurse Practitioner 03/22/15 CHECK CASHIER [address] [place] [address] Annalisa Mark APRN PCP - Assigned PCP 06/06/18 09/28/18 CHECK CASHIER [address] [place] [address] Annalisa Mark APRN Assigned PCP 06/06/18 1 09/02/18 CHECK CASHIER [address] [place] [address] documented as of this encounter
--- OUTSIDE RECORDS SUMMARY | 2022-06-06 21:02 | XMS_ITS | Encounter Summary ---
:1985 Author Organization [facility] Address [address] [place], [place] [address]. [place] [address] Care Team Providers Name Role Phone Annalisa Mark APRN, CNP Primary Care Provider [phone] Annalisa Mark APRN REJECT OPENER AND FILLER Unavailable [phone] Encounter Details Date Type Department Care Team Description 12/06/2018 Travel Social History Tobacco Use Types Packs/Day [...] you attend presybeterian or Patient refused 2021 moravian services? Do you belong to any clubs [...] documented as of this encounter Care Teams Photograph Printer Relationship Specialty Start Date End Date Annalisa Mark APRN REJECT OPENER AND FILLER PCP - General Nurse Practitioner 03/22/15 [address] [place], [place] [id number] Annalisa Mark APRN REJECT OPENER AND FILLER Assigned PCP 06/06/18 07/02/19 [address] [place], [place] [id number] documented as of this encounter
--- OUTSIDE RECORDS SUMMARY | 2022-06-06 21:03 | XMS_ITS | Encounter Summary ---
:1985 Author Organization [facility] Address [address] [place] [address]. [place] [address] Care Team Providers Name Role Phone Annalisa Mark APRN, CNP Primary Care Provider [phone] Reason for Visit Reason Comments Derm Problem Encounter Details Date Type Department Care Team Description 12/10/2016 Office Visit [facility] Annalisa Mark of [facility] JADEN Peacock FAMILY PRACTICE NURSE PRACTITIONER leg (Primary Dx) [address] [address] [phone] Social History Tobacco Use Types Packs/Day Years [...] you attend protestant or Patient refused 2021 buddhist services? Do you belong to any clubs [...] or slept in a penitentiary (including now)? Sex Assigned at Date Recorded Female 03/25/2021 2:01 PM CDT documented as of this encounter Last Filed Vital Signs Vital Sign Reading Time Taken Comments Blood Pressure 102/62 12/10/2016 9:28 AM CDT Pulse 74 12/10/2016 9:28 AM CDT Temperature 37.4 ??C (99.3 ??F) 12/10/2016 9:28 AM CDT Respiratory Rate 12 12/10/2016 9:28 AM CDT Oxygen Saturation 100% 12/10/2016 9:28 AM CDT Inhaled Oxygen Concentration - - Weight 55.3 kg (122 lb) 12/10/2016 9:28 AM CDT Height - - Body Mass Index 21.61 11/15/2016 6:46 PM CDT documented in this encounter Progress Notes Annalisa Mark, JADEN FAMILY PRACTICE NURSE PRACTITIONER - 12/10/2016 9:30 AM CDT SUBJECTIVE: Tameka Grissom is a 31 year old female who presents to clinic today for the following health issues: Rash ?? Duration: 3 weeks ?? Description Location: R lower leg Itching: no ?? Intensity: No pain ?? Accompanying signs and symptoms: None ?? History (similar episodes/previous evaluation): None ?? Precipitating or alleviating factors: New exposures: None Recent travel: no ?? Therapies tried and outcome: none Describes as small nodule like a bb under skin. Denies pain. Problem list and histories reviewed & adjusted, [...] Breast Cancer Other paternal aunt Current Outpatient Prescriptions Medication Sig Dispense Refill ??? Hydrocortisone Acetate 2.5 % CREA Externally apply 1 g topically 3 times daily 28.4 g 1 ??? ibuprofen (ADVIL/MOTRIN) 800 MG tablet Take 1 tablet (800 mg) by mouth every 8 hours as needed for other (cramping) 60 tablet 0 ??? calcium carbonate (OS-TRUMAN 500 MG CHOCTAW. CA) 500 MG tablet Take 500 mg by mouth 2 times daily ??? Vit-Fe Fumarate-FA ( MULTIVITAMIN PLUS IRON) 27-0.8 MG TABS Take 1 tablet by mouth daily 100 tablet 3 ??? senna-docusate (SENOKOT-S;PERICOLACE) 8.6-50 MG per tablet Take 1 tablet by mouth daily as needed for constipation (Patient not taking: Reported on 12/10/2016) 100 tablet 0 Allergies Allergen Reactions ??? No Known Drug Allergies Reviewed and updated as needed this visit by clinical staff Tobacco Allergies Med Hx Surg Hx Fam Hx Soc Hx Reviewed and updated as needed this visit by Provider ROS: Constitutional, HEENT, cardiovascular, pulmonary, GI, , musculoskeletal, neuro, skin, endocrine and psych systems are negative, except as otherwise noted. This document serves as a record of the services and decisions personally performed and made by Annalisa Mark CNP. It was created on her behalf by Elvira Strickland, a trained medical pathology teacher. The creation of this document is based the provider's statements to the medical pathology teacher. Elvira Strickland December 10, 2016 9:40 AM OBJECTIVE: BP 102/62 (BP Location: Right arm, Patient Position: Chair, Cuff Size: Adult Regular) Pulse 74 Temp 99.3 ??F (37.4 ??C) (Oral) Resp 12 Wt 55.3 kg (122 lb) SpO2 100% BMI 21.61 kg/m2 Body mass index is 21.61 kg/(m^2). GENERAL: healthy, alert and no distress SKIN: 0.5 cm mobile, round, cyst superficial to skin of mid anterior L bass.No tenderness, redness or warmth. NEURO: Normal strength and tone, mentation intact and speech normal PSYCH: mentation appears normal, affect normal/bright Diagnostic Test Results: none ASSESSMENT/PLAN: Tameka was seen today for derm problem. Diagnoses and all orders for this visit: Skin lesion of right leg: discussed likely lipoma, will confirm with ultrasound. If it is a lipoma treatment is not necessary unless enlarged. - US Extremity Non Vascular Right; Future Follow up visit after ultra sound to discuss results and plan, sooner as needed. The information in this document, created by the medical pathology teacher for me, accurately reflects the services I personally performed and the decisions made by me. I have reviewed and approved this document for accuracy. Annalisa Mark APRN CNP [facility] documented in this encounter Nursing Notes Rajwinder Milton CMA - 12/10/2016 9:30 AM CDT Chief Complaint Patient presents with ??? Derm Problem Initial BP 102/62 (BP Location: Right arm, Patient Position: Chair, Cuff Size: Adult Regular) Pulse 74 Temp 99.3 ??F (37.4 ??C) (Oral) Resp 12 Wt 122 lb (55.3 kg) SpO2 100% BMI 21.61 kg/m2 Estimated body mass index is 21.61 kg/(m^2) as calculated from the following: Height as of 11/15/16: 5' 3 (1.6 m). Weight as of this encounter: 122 lb (55.3 kg). Medication Reconciliation: complete Rajwinder Milton CMA documented in this encounter Plan of Treatment Not on filedocumented as of this encounter Results US Extremity Non Vascular Right (12/16/2016 9:08 AM CDT) Anatomical Region Laterality Modality Extremity Ultrasound Specimen (Source) Anatomical Location Collection Method / Collectio n Time Received Time / Laterality Volume Impressions 12/16/2016 1:24 PM CDT IMPRESSION: A subcentimeter isoechoic nodule in the subcutaneous fat overlying the right lower leg/ankle ante riorly and medially likely corresponds to the patient's palpable ab normality. This finding is nonspecific, but could represent a small lymph node or lipoma. VIKASH YUEN MD Narrative 12/16/2016 1:24 PM CDT ULTRASOUND EXTREMITY NON VASCULAR RIGHT ?? 12/16/2016 9:08 AM HISTORY: Palpable lump right lower leg. COMPARISON: None. FINDINGS: Ultrasound scanning through th e region of the patient's palpable abnormality overlying the anter ior medial aspect of the right lower leg/ankle demonstrates an ovoid is oechoic nodule in the subcutaneous fat measuring 0.9 x 0.9 x 0 .3 cm. No definite internal blood flow is identified on Doppler imag ing within this small subcutaneous nodule. No other abnormalit ies are identified to explain the patient's palpable abnormality in th is region. Procedure Note Vikash Yuen MD - 12/16/2016Forma tting of this note might be different from the original. ULTRASOUND EXTREMITY NON VASCULAR RIGHT 12/16/2016 9:08 AM HISTORY: Palpable lump right lower leg. COMPARISON: None. FINDINGS: Ultrasound scanning through th e region of the patient's palpable abnormality overlying the anter ior medial aspect of the right lower leg/ankle demonstrates an ovoid is oechoic nodule in the subcutaneous fat measuring 0.9 x 0.9 x 0 .3 cm. No definite internal blood flow is identified on Doppler imag ing within this small subcutaneous nodule. No other abnormalit ies are identified to explain the patient's palpable abnormality in th is region. IMPRESSION: A subcentimeter isoechoic no dule in the subcutaneous fat overlying the right lower leg/ankle ante riorly and medially likely corresponds to the patient's palpable ab normality. This finding is nonspecific, but could represent a small lymph node or lipoma. VIKASH YUEN MD Annalisa Mark APRN, CNP [facility] US ORDERABLES documented in this encounter Visit Diagnoses Diagnosis Skin lesion of right leg - Primary Unspecified disorder of skin and subcuta neous tissue Skin lesion of right leg Unspecified disorder of skin and subcuta neous tissue documented in this encounter Additional Health Concerns Assessment Noted Time PHQ-9 Depression Total Score: 5 04/22/2016 7:19 AM CDT documented as of this encounter Care Teams Paint Stripper Relationship Specialty Start Date End Date Annalisa Mark APRN CNP PCP - General Nurse Practitioner 03/22/15 [address] [place] [address] documented as of this encounter
--- OUTSIDE RECORDS SUMMARY | 2022-06-06 21:03 | XMS_ITS | Encounter Summary ---
:1985 Author Organization [place] Address [address] [place] [address]. [place] [address] Care Team Providers Name Role Phone DeedeeAnnalisa dean Madonna STANLEY CNP Primary Care Provider [phone] Encounter Details Date Type Department Care Team Description 11/13/[address] [facility] Pete Martni MD [address] [phone] Social History Tobacco Use Types Packs/Day Years [...] you attend moravian or Patient refused 2021 adventism services? Do [...] this encounter Miscellaneous Notes Telephone Encounter - Pete Martin - 11/13/2016 7:03 PM CDT I called patient. To discuss ultrasound results. 4100 grams so 9 pound baby. Not LGA by strict definition but patient was anxious about the size of the . Left message on voicemail for patient to return call. documented in this encounter Plan of Treatment Not on filedocumented as of this encounter Visit Diagnoses Not on filedocumented in this encounter Additional Health Concerns Assessment Noted Time PHQ-9 Depression Total Score: 5 04/22/2016 7:19 AM CDT documented as of this encounter Care Teams Senior Talent Acquisition Specialist Relationship Specialty Start Date End Date Annalisa Mark APRN REHAB ASSISTANT PCP - General Nurse Practitioner 03/22/15 [address] [place] [address] documented as of this encounter
--- OUTSIDE RECORDS SUMMARY | 2022-06-06 21:03 | XMS_ITS | Encounter Summary ---
:1985 Author Organization [place] Address [address] [place] [address]. [place] [address] Care Team Providers Name Role Phone DeedeeAnnalisa APRN, CNP Primary Care Provider Reason for Visit Reason Comments Care Encounter Details Date Type Department Care Team Description 11/10/2016 Office [facility] Pete Martin Post-te rm , Visit [facility] MD Alexandre 40-42 weeks o f [place] gestation (Primary [address] [place] [address] Social History Tobacco Use Types Packs/Day Years [...] you attend bahai or Patient refused 2021 roman catholic services? Do you belong to any [...] Sign Reading Time Taken Comments Blood Pressure 118/78 11/10/2016 3:52 PM CDT Pulse - - Temperature - - Respiratory Rate - - Oxygen Saturation - - Inhaled Oxygen Concentration - - Weight 70.7 kg (155 lb 12.8 oz) 11/10/2016 3:52 PM CDT Height - - Body Mass Index 27.6 09/03/2016 9:37 PM BIOMEDICAL FIELD SERVICE ENGINEER documented in this encounter Progress Notes Pete Martin - 11/10/2016 3:45 PM CDT Schedule post dates induction. documented in this encounter Nursing Notes Marce Bazzi CMA - 11/10/2016 3:45 PM CDT Chief Complaint Patient presents with ??? Care 40w1d Marce Bazzi MA Initial BP 118/78 (BP Location: Right arm, Patient Position: Chair, Cuff Size: Adult Regular) Wt 155 lb 12.8 oz (70.7 kg) LMP 01/27/2016 BMI 27.6 kg/m2 Estimated body mass index is 27.6 kg/(m^2) as calculated from the following: Height as of 09/03/16: 5' 3 (1.6 m). Weight as of this encounter: 155 lb 12.8 oz (70.7 kg). Medication Reconciliation: complete Marce Bazzi CMA - 11/10/2016 3:45 PM CDT Pt scheduled for induction 11/17/2016 at 7:30am at [facility]. Pt advised to call 1 hour prior to procedure. Marce Bazzi MA documented in this encounter Plan of Treatment Not on filedocumented as of this encounter Results (ABNORMAL) US OB Biophys Single Gestation Measure (11/12/2016 8:47 AM CDT) Anatomical Region Laterality Modality Abdomen/Pelvis Ultrasound Specimen (Source) Anatomical Location Collection Method / Collectio n Time Received Time / Laterality Volume Narrative 11/13/2016 5:57 PM CDT ULTRASOUND - LIMITED OB (18+) [facility] Obstetrics & Gynecology [address] [place] [address] ?? Referring Provider: Pete Martin MD Clinic: [facility] ?? INDICATIONS FOR ULTRASOUND: OB History: Present Conditions: Prolonged (post dates) EFW/BPP ?? CLINICAL INFORMATION ?? LMP: unsure EDC: Nov 10 EGA: 40 wks 3d Previous US: Yes Location: [facility], [facility], [facility] EDC: Nov 10 correspond ?? MEASUREMENTS BPD: 9.95cm MA: 40w6d HC: 35.26cm MA: 41w1d AC: 37.44cm MA:41w 3d FL: 7.53cm MA: 38w4d Hum: 6.78cm MA:39w3 d ? FL/AC:20 % FL/BPD:76% HC/AC:0.94 CI:82% ?? FHR:135bpm-reg JAMIR:17.3cm wnl ?? EDC: Nov 10 EGA:40wks 2d correspond ?? EFW:4188g Percentile:92.9% ?? SURVEY Type: [place] Presentation: Cephalic Placenta location: posterior Grade: I ?? BIOPHYSICAL PROFILE [place] JAMIR: 2 Activity: 2 Tone: 2 Total: 03/03 ?? *Other Findings: ?? Limited transabdominal obstetric ultraso und. Reassuring biophysical profile, ??normal amniotic fluid volume. Satisfactory interval growth. Large for gestational age . PETE MARTIN M.D. Pete Martin MD IMG US ORDERABLES documented in this encounter Visit Diagnoses Diagnosis Post-term , 40-42 weeks of gest ation - Primary Post term , unspecified episode of care Post-term , 40-42 weeks of gest ation Post term , unspecified episode of care documented in this encounter Additional Health Concerns Assessment Noted Time PHQ-9 Depression Total Score: 5 04/22/2016 7:19 AM CDT documented as of this encounter Care Teams Bacteriologist Medical Relationship Specialty Start Date End Date Annalisa Mark APRN CNP PCP - General Nurse Practitioner 03/22/15 [address] [place] [address] documented as of this encounter
--- OUTSIDE RECORDS SUMMARY | 2022-06-06 21:03 | XMS_ITS | Encounter Summary ---
:1985 Author Organization [place] Address [address] [place] [address]. [place] [address] Care Team Providers Name Role Phone DeedeeAnnalisa dean Madonna STANLEY CNP Primary Care Provider [phone] Reason for Visit Reason Comments Post Exam Encounter Details Date Type Department Care Team Description [facility] of [facility]Primary Dx); Visit [facility] MD Alexandre Routine postp artum follow-up [place] [address] [place] [place] [address] Social History Tobacco Use Types [...] you attend protestant or Patient refused 2021 mandaeism services? Do [...] Sign Reading Time Taken Comments Blood Pressure 98/60 12/29/2016 5:46 PM CDT Pulse - - Temperature - - Respiratory Rate - - Oxygen Saturation - - Inhaled Oxygen Concentration - - Weight 55.8 kg (123 lb 1.6 oz) 12/29/2016 5:46 PM CDT Height - - Body Mass Index 21.81 11/15/2016 6:46 PM CDT documented in this encounter Progress Notes Pete Martin - 12/29/2016 7:15 PM CDT SUBJECTIVE: Tameka is here for a 6-week checkup. Delivery date was 11/16/2016. She had a of a viable boy, weight 9 pounds 2 oz., with no complications. Since delivery, she has been breast feeding. She has no signs of infection, bleeding or other complications. She is not . We discussed contraceptions and she has chosen mini pill / progesterone only pill. She has not had intercourse since delivery and complains of No discomfort. Patient screened for depression and complaints are NEGATIVE. Screening has also been completed forintimate partner violence. Marce Bazzi MA EXAM: Today's Depression Rating was PHQ-9 SCORE 12/29/2016 Total Score - Total Score MyChart - Total Score 0 Pelvis: normal external genitalia, normal groin lymphatics, normal urethral meatus, normal vaginal mucosa, normal cervix, normal adnexa, no masses or tenderness, uterus normal size and shape and uterusantiverted. ASSESSMENT: Normal exam after . PLAN: Return as needed or at time of next expected pap, pelvic, or breast exam. documented in this encounter Nursing Notes Marce Bazzi CMA - 12/29/2016 7:15 PM CDT Chief Complaint Patient presents with ??? Post Exam Initial BP 98/60 (BP Location: Right arm, Patient Position: Chair, Cuff Size: Adult Regular) Wt 123 lb 1.6 oz (55.8 kg) BMI 21.81 kg/m2 Estimated body mass index is 21.81 kg/(m^2) as calculated from the following: Height as of 4/22/17: 5' 3 (1.6 m). Weight as of this encounter: 123 lb 1.6 oz (55.8 kg). Medication Reconciliation: complete documented in this encounter Plan of Treatment Not on filedocumented as of this encounter Visit Diagnoses Diagnosis Encounter for initial prescription of co ntraceptive pills - Primary General counseling for prescription of o ral contraceptives Routine follow-up documented in this encounter Additional Health Concerns Assessment Noted Time PHQ-9 Depression Total Score: 0 12/30/2016 7:26 AM CDT documented as of this encounter Care Teams Wired Music Operator Relationship Specialty Start Date End Date Annalisa Mark APRN CNP PCP - General Nurse Practitioner 03/22/15 [address] [place] [address] documented as of this encounter
--- OUTSIDE RECORDS SUMMARY | 2022-06-06 21:03 | XMS_ITS | Encounter Summary ---
:1985 Author Organization [place] Address [address] [place] [address]. 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 Do [...] Reading Time Taken Comments Blood Pressure 118/78 11/21/2016 2:42 PM CDT Pulse - - Temperature 36.7 ??C (98.1 ??F) 11/21/2016 2:42 PM CDT Respiratory Rate - - Oxygen Saturation - - Inhaled Oxygen Concentration - - Weight 62.5 kg (137 lb 11.2 oz) 11/21/2016 2:42 PM CDT Height - - Body Mass Index 24.39 11/15/2016 6:46 PM CDT documented in this encounter Progress Notes Pete Martin - 11/21/2016 2:45 PM CDT SUBJECTIVE: Tameka Grissom is a 31 year old, , c/o rash on buttocks. Past Medical History: Diagnosis Date ??? Allergic [...] 04/04/08, 12/14/08 Current Outpatient Prescriptions Medication ??? Hydrocortisone Acetate 2.5 % CREA ??? ibuprofen (ADVIL/MOTRIN) 800 MG tablet ??? senna-docusate (SENOKOT-S;PERICOLACE) 8.6-50 MG per tablet ??? Vit-Fe Fumarate-FA ( MULTIVITAMIN PLUS IRON) 27-0.8 MG TABS ??? calcium carbonate (OS-TRUMAN 500 MG [place]. [place]) 500 MG tablet No current facility-administered medications for [...] NEGATIVE BREAST: NEGATIVE NEURO: NEGATIVE. OBJECTIVE: BP 118/78 (BP Location: Left arm, Patient Position: Chair, Cuff Size: Adult Regular) Temp 98.1 ??F(36.7 ??C) (Oral) Wt 137 lb 11.2 oz (62.5 kg) LMP 01/27/2016 ? Yes BMI 24.39 kg/m2 Pelvis: normal external genitalia, normal groin lymphatics, normal urethral meatus, normal vaginal mucosa, normal cervix, normal adnexa, no masses or tenderness, uterus normal size and shape and uterusantiverted. Papular rash on buttocks. ASSESSMENT: Rash, . Contact dermatitis? Frequency PLAN: 1) Viral culture. Total time spent was 15 minutes. 15 minutes of face to face time spent counseling and or coordination of care regarding rash . Hydrocortisone cream.. UA/UC. documented in this encounter Nursing Notes Stephanie Collins LPN - 11/21/2016 2:45 PM CDT Chief Complaint Patient presents with ??? Care rash Initial BP 118/78 (BP Location: Left arm, Patient Position: Chair, Cuff Size: Adult Regular) Temp 98.1 ??F (36.7 ??C) (Oral) Wt 137 lb 11.2 oz (62.5 kg) LMP 01/27/2016 ? Yes BMI 24.39 kg/m2 Estimated body mass index is 24.39 kg/(m^2) as calculated from the following: Height as of 17: 5' 3 (1.6 m). Weight as of this encounter: 137 lb 11.2 oz (62.5 kg). Medication Reconciliation: complete documented in this encounter Plan of Treatment Not on filedocumented as of this encounter Procedures Procedure Name Priority Date/Time Associated Comments Diagnosis VIRAL CULTURE Routine 11/21/2016 3:20 PM Allergic dermatitis R esults for this CDT due to other procedure are i n chemical product the results section. UA WITH MICROSCOPIC Routine 11/21/2016 2:45 PM Urinary urgency Results for this CDT procedure are i n the results section. URINE CULTURE Routine 11/21/2016 2:45 PM Urinary urgency Resul ts for this CDT procedure are i n the results section. documented in this encounter Results Viral culture (11/21/2016 3:20 PM CDT) [facility] gist Method Time Signature Viral Culture Buttock ANTIOCH Specimen [facility] Result No virus NOV [facility] Status FINAL [facility] Specimen Anatomical Collection Method Collection Time Receive d Time (Source) Location / / Volume Laterality 11/21/2016 3:20 PM 7 3:36 CDT PM CDT Pete Martin MD LAB - MICRO GENERAL ORDERABL ES Performing Organization Address City/[facility]/ZIP Code Phon e Number [address] [address] [facility] [address] [place], [place] [address] [address] Urine Culture Aerobic Bacterial (11/21/2016 2:45 PM CDT) Component Value Ref Test Analysis Performed At [facility] [place] Range Method Time Signature Specimen Midstream Urine [facility] Special 2,638 ANTIOCH Requests [facility] Culture Micro Single colony INFECTIOUS urogenital roberto DISEASE Susceptibility DIAGNOSTIC testing not LABORATORY routinely done Micro Report FINAL 11/22/2016 INFECTIOUS Status DISEASE DIAGNOSTIC LABORATORY Specimen Anatomical Collection Method Collection Time Receive d Time (Source) Location / / Volume Laterality Urine specimen 11/21/2016 2:45 PM 017 3:07 (specimen) CDT PM CDT Pete Martin MD LAB - MICRO GENERAL ORDERABL ES Performing Organization Address City/[facility]/ZIP Code Phon e Number INFECTIOUS DISEASES [address] [place] [address] DIAGNOSTIC LABORATORY, [facility] [address] [place] [address] [phone] [place] [address] INFECTIOUS DISEASE [address] [place], [place] [address] DIAGNOSTIC LABORATORY (ABNORMAL) UA with Microscopic (11/21/2016 2:45 PM CDT) [facility] Method Time Signature Color Urine Yellow [facility] Appearance Urine Clear [facility] Glucose Urine Negative NEG mg/dL [facility] Bilirubin Urine Negative NEG [facility] Ketones Urine Negative NEG mg/dL [facility] Specific [place] 1.015 1.003 - ANTIOCH Urine 1.035 [facility] pH Urine 7.0 5.0 - 7.0 ANTIOCH pH [facility] Protein Albumin Negative NEG mg/dL ANTIOCH Urine [facility] Urobilinogen 0.2 0.2 - 1.0 ANTIOCH Urine EU/dL [facility] Nitrite Urine Negative NEG [facility] Blood Urine Moderate (A) NEG [facility] Leukocyte Trace (A) NEG ANTIOCH Esterase Urine [facility] Source Midstream ANTIOCH Urine [facility] WBC Urine O - 2 0 - 2 ANTIOCH /HPF [facility] RBC Urine 5-10 (A) 0 - 2 ANTIOCH /HPF [facility] Specimen Anatomical Collection Method Collection Time Receive d Time (Source) Location / / Volume Laterality Urine specimen 11/21/2016 2:45 PM 017 3:06 (specimen) CDT PM CDT Pete Martin MD LAB - URINE ORDERABLES Performing Organization Address City/State/ZIP Code Phon e Number [facility] [address] [place], [place] [address] [address] documented in this encounter Visit Diagnoses Diagnosis Urinary urgency - Primary Urgency of urination 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
--- OUTSIDE RECORDS SUMMARY | 2022-06-06 21:03 | XMS_ITS | Encounter Summary ---
:1985 Author Organization [place] Address [address] [place] [address]. [place] [address] Care Team Providers Name Role Phone DeedeeSwapna deanarnulfo Peacock APRN, CNP Primary Care Provider [phone] Encounter Details Date Type Department Care Team Description 11/12/2016 Radiant Appointment [facility] Pete Martin Pos t-term , Clinic Cezar Schroeder MD 40-42 weeks of [address] [place] [address] [place] [address] Social History Tobacco Use Types [...] you attend orthodox or Patient refused 2021 confucianism services? Do [...] Date/Time Associated Diagnosis Comme nts US OB BIOPHYS Routine 11/12/2016 8:47 AM Post-term , Results for this SINGLE GESTATION W CDT 40-42 weeks of procedu re are in MEASURE gestation the results section. documented in this encounter Results (ABNORMAL) US OB Biophys Single Gestation Measure (11/12/2016 8:47 AM CDT) Anatomical Region Laterality Modality Abdomen/Pelvis Ultrasound Specimen (Source) Anatomical Location Collection Method / Collectio n Time Received Time / Laterality Volume Narrative 11/13/2016 5:57 PM CDT ULTRASOUND - LIMITED OB (18+) [facility] Obstetrics & Gynecology [address] [place] [address] ?? Referring Provider: Pete Martin MD Clinic: [facility] ?? INDICATIONS FOR ULTRASOUND: OB History: [...] Satisfactory interval growth. Large for gestational age infant. PETE MARTIN M.D. Pete Martin MD IMG US ORDERABLES documented in this encounter Visit Diagnoses Diagnosis Post-term , 40-42 weeks of gest ation Post term , unspecified episode of care documented in this encounter Additional Health Concerns Assessment Noted Time PHQ-9 Depression Total Score: 5 04/22/2016 7:19 AM CDT documented as of this encounter Care Teams Quirk Sander Relationship Specialty Start Date End Date Annalisa Mark APRN STATION TENDER PCP - General Nurse Practitioner 03/22/15 [address] [place] [address] documented as of this encounter
--- OUTSIDE RECORDS SUMMARY | 2022-06-06 21:03 | XMS_ITS | Encounter Summary ---
:1985 Author Organization [place] Address Count includes the [facility] [place] [address] Care Team Providers Name Role Phone DeedeeSwapna deanarnulfo Peacock APRN, CNP Primary Care Provider [phone] Reason for Visit Reason Comments Care Encounter Details Date Type Department Care Team Description 10/13/2016 Office [facility] Pete Martin care, first Visit [facility] MD Alexandre , th ird [place] trimester (Primary [address] [place] [address] [place] [address] Social History Tobacco Use Types Packs/Day Years [...] you attend bahai or Patient refused 2021 temple services? Do [...] Sign Reading Time Taken Comments Blood Pressure 102/70 10/13/2016 3:41 PM CDT Pulse - - Temperature 36.8 ??C (98.2 ??F) 10/13/2016 3:41 PM CDT Respiratory Rate - - Oxygen Saturation - - Inhaled Oxygen Concentration - - Weight 68.6 kg (151 lb 4.8 oz) 10/13/2016 3:41 PM CDT Height - - Body Mass Index 26.8 09/03/2016 9:37 PM SECURITY DISPATCHER documented in this encounter Progress Notes Pete Martin - 10/13/2016 3:30 PM CDT Doing well. Group B strep culture done. documented in this encounter Nursing Notes Marce Bazzi CMA - 10/13/2016 3:30 PM CDT Chief Complaint Patient presents with ??? Care 36w1d Marce Bazzi MA Initial BP 102/70 (BP Location: Right arm, Patient Position: Chair, Cuff Size: Adult Regular) Temp 98.2 ??F (36.8 ??C) (Oral) Wt 151 lb 4.8 oz (68.6 kg) LMP 01/27/2016 BMI 26.8 kg/m2 Estimated body mass index is 26.8 kg/(m^2) as calculated from the following: Height as of 09/03/17: 5' 3 (1.6 m). Weight as of this encounter: 151 lb 4.8 oz (68.6 kg). Medication Reconciliation: complete documented in this encounter Plan of Treatment Not on filedocumented as of this encounter Procedures Procedure Name Priority Date/Time Associated Diagnosis Comme nts GROUP B STREP PCR Routine 10/13/2016 3:58 PM Resu lts for this CDT procedure are i n the results section. documented in this encounter Results Strep, Group B by PCR (10/13/2016 3:58 PM CDT) [facility] Method Time Signature Group B Strep Vaginal [facility] PCR Spec [facility] Group B Strep Negative [facility]G [facility] PCR No GBS DNA detected, presumed negative f or GBS or number of bacteria may be [facility] below the limit of detection of the assay. [facility] Assay performed on incubate d broth culture of specimen using [employer] real-time BANK PCR. Specimen Anatomical Collection Method Collection Time Receive d Time (Source) Location / / Volume Laterality 10/13/2016 3:58 PM 7 6:52 CDT PM CDT Pete Martin MD LAB - MICRO GENERAL ORDERABL ES Performing Organization Address City/State/ZIP Code Phon e Number [facility] [address] [place] [address] [facility] [address] [place], [place] [address] [address] documented in this encounter Visit Diagnoses Diagnosis care, first , third tr imester - Primary documented in this encounter Additional Health Concerns Assessment Noted Time PHQ-9 Depression Total Score: 5 04/22/2016 7:19 AM CDT documented as of this encounter Care Teams Client Success Director Relationship Specialty Start Date End Date Annalisa Mark APRN TURNING SANDER TENDER PCP - General Nurse Practitioner 03/22/15 [address] [place] [address] documented as of this encounter
--- OUTSIDE RECORDS SUMMARY | 2022-06-06 21:03 | XMS_ITS | Encounter Summary ---
:1985 Author Organization [place] Address [address] [place] [address]. [place] [address] Care Team Providers Name Role Phone Annalisa Marksalima STANLEY CNP Primary Care Provider [phone] Reason for Visit Reason Onset Date Comments Call Back 12/04/2016 LM for mom to call P RN with concerns Encounter Details Date Type Department Care Team Description 12/04/2016 Telephone [facility] Kerri Figueroa, Call Dre angel (LM for mom to [facility] RN call PRN with [address] concerns) [place] [address] Social History Tobacco Use Types [...] you attend zoroastrian or Patient refused 2021 gnosticist services? Do [...] documented as of this encounter Care Teams Coil Connector Repairer Relationship Specialty Start Date End Date Annalisa Mark APRN MUD BOSS PCP - General Nurse Practitioner 03/22/15 [address] [place] [address] documented as of this encounter
--- OUTSIDE RECORDS SUMMARY | 2022-06-06 21:03 | XMS_ITS | Encounter Summary ---
:1985 Author Organization [place] Address [facility] [place] [address] Care Team Providers Name Role Phone Annalisa Mark JADEN MONTALVO Primary Care Provider [phone] Reason for Visit Reason Comments Rule Out Labor Auth/Cert Specialty Diagnoses / Procedures Referred By Contact Refer red To Contact accountant auditor Diagnoses Indication for care in labor or delivery Indication for care in labor or delivery Vaginal delivery Rh [address] [place], [place] [address] Phone: Fax: Referral ID Status Reason Start Date Expiration Date Visits Requ ested Visits Authorized [id number] 1 1 Encounter Details Date Type Department Care Team Description 11/15/2016 - Hospital Encounter [facility] Juan Pablo Baker MD [address] [facility] [address] [place] [address] Vaginal delivery 11/18/2016 [facility] Niraj Sims MD [address] [place] [id number] (Primary Dx) [address] [place] [address] Social History Tobacco Use Types [...] you attend voodoo or Patient refused 2021 temple services? Do [...] Sign Reading Time Taken Comments Blood Pressure 129/78 11/18/2016 6:01 AM CDT Pulse 81 11/18/2016 6:01 AM CDT Temperature 36.9 ??C (98.5 ??F) 11/18/2016 10:00 AM CDT Respiratory Rate 18 11/18/2016 10:00 AM CDT Oxygen Saturation - - Inhaled Oxygen Concentration - - Weight 69.4 kg (153 lb) 11/15/2016 6:46 PM CDT Height 160 cm (5' 3) 11/15/2016 6:46 PM CDT Body Mass Index 27.1 11/15/2016 6:46 PM CDT documented in this encounter Discharge Instructions Discharge InstructionsAsuncion Klein RN - 11/18/2016 11:28 AM CDT Vaginal Delivery Instructions [id number] Activity ?? Ask family and friends for [...] hands. Keep your nails clean and short. documented in this encounter Medications at Time of Discharge Medication Sig Dispensed Refills Start Date End Date calcium carbonate Take 500 mg by mouth 2 0 04/21/2017 (OS-TRUMAN 500 MG LAC DU FLAMBEAU. times daily CA) 500 MG tablet cephALEXin (KEFLEX) Take 1 capsule by 14 capsule 0 2 06/28/2019 500 MG mouth 2 times daily capsuleIndications: for 7 days. Other acute otitis externa ibuprofen Take 1 tablet (800 mg) 60 tablet 0 11/18/2016 (ADVIL/MOTRIN) 800 MG by mouth every 8 hours tabletIndications: as needed for other Vaginal delivery (cramping) Vit-Fe Take 1 tablet by mouth 100 tablet 3 03/04/20 16 04/21/2017 Fumarate-FA ( daily MULTIVITAMIN PLUS IRON) 27-0.8 MG TABSIndications: Encounter for supervision of normal first , unspecified trimester senna-docusate Take 1 tablet by mouth 100 tablet 0 7 04/21/2017 (SENOKOT-S;PERICOLACE) daily as needed for 8.6-50 MG per constipation tabletIndications: Vaginal delivery documented as of this encounter Progress Notes Asuncion Klein RN - 11/18/2016 12:12 PM CDT Patient meeting expected goals. Is up independent in room, meeting all personal and infant needs. VSS. Pain is being managed with Tylenol and PRN Ibuprofen. Voiding without difficulty. isgoing well. Bonding well with infant. SW saw patient to ensure adequate support at home, now that FOB is more involved. SW feels that patient has good support and family to help out. ROP paperwork reviewed and notarized. [facility] referral faxed over for first time mother. is going well, used nipple shield PRN. Patient was tearful after infant had circumcision. Education given on how to care for site and all questions answered. Discharge paperwork reviewed with patientby IOS PROGRAMMER and all questions answered. Patient is aware of 6 week visit. Patient left unit with all belongings and at 1205. NAT Alecia Marks MD - 11/18/2016 9:20 AM CDT [facility] Post- Progress Note Assessment and Plan: Assessment: Post- day #2 Forcepts-assisted delivery L&D complications: None Doing well. No excessive bleeding Pain well-controlled. Plan: Ambulation encouraged Pain control measures as needed Discharge later today Interval History: Doing well. Pain is well-controlled. No fevers. No history of foul-smelling vaginal discharge. Good appetite. Denies chest pain, shortness of breath, nausea or vomiting. Vaginal bleeding is similar to a heavy menstrual flow. Ambulatory. well. Significant Problems: Patient Active Problem List Diagnosis ??? Mild major depression (H) ??? CARDIOVASCULAR SCREENING; LDL GOAL LESS THAN 160 ??? LGSIL on Pap smear ??? History of OCD (obsessive compulsive disorder) ??? Generalized anxiety disorder ??? care, first ??? Indication for care in labor or delivery ??? Vaginal delivery Review of Systems: The Review of Systems is negative other than noted in the HPI Medications: All medications related to the patient's surgery have been reviewed Current Facility-Administered Medications Medication ??? multivitamin plus iron per tablet 1 tablet ??? oxytocin (PITOCIN) 30 units in 500 mL 0.9% NaCl infusion ??? ibuprofen (ADVIL/MOTRIN) tablet 400-800 mg ??? acetaminophen (TYLENOL) tablet 650 mg ??? naloxone (NARCAN) injection 0.1-0.4 mg ??? senna-docusate (SENOKOT-S;PERICOLACE) 8.6-50 MG per tablet 1-2 tablet ??? bisacodyl (DULCOLAX) Suppository 10 mg ??? sodium phosphate (FLEET ENEMA) 1 enema ??? hydrocortisone 2.5 % cream ??? lanolin ointment ??? lactated ringers BOLUS 1,000 mL ??? oxytocin (PITOCIN) 30 units in 500 mL 0.9% NaCl infusion ??? oxytocin (PITOCIN) injection 10 Units ??? misoprostol (CYTOTEC) tablet 400 mcg ??? NO Rho (D) immune globulin (RhoGam) needed - mother Rh POSITIVE ??? oxyCODONE (ROXICODONE) IR tablet 5-10 mg Physical Exam: All vitals stable Vital signs: Temp: 97.6 ??F (36.4 ??C) Temp src: Oral BP: 129/78 Pulse: 81 Heart Rate: 91 Resp: 16 Height: 5' 3 (160 cm) Weight: 153 lb (69.4 kg) Estimated body mass index is 27.1 kg/(m^2) as calculated from the following: Height as of this encounter: 5' 3 (1.6 m). Weight as of this encounter: 153 lb (69.4 kg). ' Uterine fundus is firm, non-tender and at the level of the umbilicus Data: All laboratory data related to this surgery reviewed Hemoglobin Date Value Ref Range Status 11/17/2016 12.3 11.7 - 15.7 g/dL Final 11/15/2016 11.4 (L) 11.7 - 15.7 g/dL Final 08/07/2016 11.5 (L) 11.7 - 15.7 g/dL Final 06/09/2016 11.0 (L) 11.7 - 15.7 g/dL Final Comment: Results confirmed by repeat test 03/04/2016 13.0 11.7 - 15.7 g/dL Final No imaging studies have been ordered Alecia Marks MD Pete Martin - 11/17/2016 11:37 AM CDT [facility] Obstetrics Post- Progress Note Assessment and Plan: Assessment: Post- day #1 Normal spontaneous vaginal delivery L&D complications: Forceps delivery Doing well. Plan: Anticipate discharge tomorrow Interval History: Doing well. Pain is well-controlled. [...] vitals stable Patient Vitals for the past 24 hrs: BP Temp Temp src Heart Rate Resp 11/17/16 0910 112/66 97.8 ??F (36.6 ??C) Oral 76 16 11/17/16 0639 128/78 98.3 ??F (36.8 ??C) Axillary 66 18 11/16/16 2325 123/54 98.3 ??F (36.8 ??C) Axillary 73 18 11/16/162002 118/61 - - - - 11/16/161947 114/61 - - - 16 11/16/16 193 137/78 - - - 18 11/16/16 1918 134/74 - - - 18 11/16/16 1900 139/81 - - - 18 11/16/16 1850 149/86 - - - - 11/16/16 1835 166/89 - - - - 11/16/16 1820 126/76 - - - - 11/16/16 1805 136/75 - - - - 11/16/16 1728 - 99 ??F (37.2 ??C) Oral - 20 11/16/16 1659 - - - - 11/16/16 1649 - - - - 11/16/16 1629 - - - - 11/16/16 1615 124/67 - - - 20 11/16/16 1600 - - - - 11/16/16 1545 - - - - 11/16/16 1530 - - - - 18 11/16/16 1500 119/61 98.5 ??F (36.9 ??C) Oral - 18 11/16/16 1458 119/61 - - - - 11/16/16 1452 124/60 - - - - 11/16/16 1448 108/55 - - - - 11/16/16 1440 123/61 - - - - 11/16/16 1438 120/59 - - - - 11/16/16 1436 112/57 - - - 18 11/16/16 1434 115/60 - - - - 11/16/16 1400 - - - - 18 11/16/16 1330 128/64 99.5 ??F (37.5 ??C) Oral - 18 11/16/16 1324 124/65 - - - - 11/16/16 1320 120/58 - - - - 11/16/16 1314 119/57 - - - - 11/16/16 1310 132/63 - - - - 11/16/16 1305 133/67 - - - - 11/16/16 1300 124/66 - - - - 11/16/16 1258 119/57 - - - 18 11/16/16 1256 127/61 - - - - 11/16/16 1254 127/61 - - - - 11/16/16 1233 123/64 - - - 18 11/16/16 1206 115/60 - - - 18 11/16/16 1140 113/64 - - - 18 Uterine fundus is firm, non-tender and at the level of the umbilicus Data: All laboratory data related to this surgery reviewed Hemoglobin Date Value Ref Range Status 11/17/2016 12.3 11.7 - 15.7 g/dL Final 11/15/2016 11.4 (L) 11.7 - 15.7 g/dL Final 08/07/2016 11.5 (L) 11.7 - 15.7 g/dL Final 06/09/2016 11.0 (L) 11.7 - 15.7 g/dL Final Comment: Results confirmed by repeat test 03/04/2016 13.0 11.7 - 15.7 g/dL Final No imaging studies have been ordered Pete Martin MD, MD documented in this encounter H&P Notes Prudencio Baker MD - 11/15/2016 6:39 PM CDT [facility] Labor and Delivery History and Physical Marcelino Daley Age: [age] year old Date of : 1985 Date of Admission: 11/15/2016 Primary care provider: Annalisa Mark Chief Complaint: Marcelino Daley is a 31 year old w female Estimated Date of Delivery: Nov 09, 2016 who is 40w6d and being admitted for active labor management and SROM. history: OBSTETRIC HISTORY: Obstetric History T0 TAB0 SAB1 E0 M0 L0 # Outcome Date GA Lbr Chema/2nd Weight Sex Delivery Anes PTL Lv 2 Current 1 SAB EDC: Estimated Date of Delivery: 11/09/16 Labs: Lab Results Component Value Date ABO Pending 11/15/2016 RH Pending 11/15/2016 Neg 03/04/2016 HEPBANG Nonreactive 03/04/2016 CHPCRT 04/11/2016 Negative Negative for C. trachomatis rRNA by addiction specialist mediated amplification. A negative result by addiction specialist mediated amplification does not preclude the presence of C. trachomatis infection because results are dependent on proper and adequate collection, absence of inhibitors, and sufficient rRNA to be detected. GCPCRT 04/11/2016 Negative Negative for N. gonorrhoeae rRNA by addiction specialist mediated amplification. A negative result by addiction specialist mediated amplification does not preclude the presence of N. gonorrhoeae infection because results are dependent on proper and adequate collection, absence of inhibitors, and sufficient rRNA to be detected. TREPAB Negative 08/07/2016 HGB 11.4 (L) 11/15/2016 HIV Negative 04/01/2013 GBS Status: Lab Results Component Value Date GBS 10/13/2016 Negative No GBS DNA detected, presumed negative for GBS or number of bacteria may be below the limit of detection of the assay. Assay performed on incubated broth culture of specimen using Palette real-time PCR. Active Problem List Patient Active Problem List Diagnosis ??? Mild major depression (H) ??? CARDIOVASCULAR SCREENING; LDL GOAL LESS THAN 160 ??? LGSIL on Pap smear ??? History of OCD (obsessive compulsive disorder) ??? Generalized anxiety disorder ??? care, first ??? Indication for care in labor and delivery, antepartum ??? Encounter for triage in patient ??? Indication for care in labor or delivery Medication Prior to Admission Prescriptions Prior to Admission Medication Sig Dispense Refill Last Dose ??? calcium carbonate (OS-TRUMAN 500 MG LAC DU FLAMBEAU. CA) 500 MG tablet Take 500 mg by mouth 2 times daily 11/15/2016 at Unknown time ??? Vit-Fe Fumarate-FA ( MULTIVITAMIN PLUS IRON) 27-0.8 MG TABS Take 1 tablet by mouth daily 100 tablet 3 11/15/2016 at Unknown time ??? zolpidem (AMBIEN) 5 MG tablet Take 1 tablet (5 mg) by mouth nightly as needed for sleep 14 tablet 0 Unknown at Unknown time . Maternal Past Medical History: Past Medical [...] this patient's social history Review of Systems: C: NEGATIVE for fever, chills, change in weight E/M: NEGATIVE for ear, mouth and throat problems R: NEGATIVE for significant cough or SOB CV: NEGATIVE for chest pain, palpitations or peripheral edema Physical Exam: Vitals were reviewed All vitals stable Temp: 98.2 ??F (36.8 ??C) Temp src: Oral BP: 121/86 Resp: 18 Constitutional: awake, alert, cooperative, no [...] noted Abdomen: No scars, normal bowel sounds, gravid uterus lewis vtx EFW 8#, no masses palpated, no hepatosplenomegally Genitounirinary: External Genitalia: General appearance; normal Musculoskeletal: There is no redness, warmth, or swelling of the joints. Full range of motion noted. Motor strength is 5 out of 5 all extremities bilaterally. Tone is normal. Cervix: Membranes: AROM SROM meconium stained fluid Dilation: 3 Effacement: 100% Station:-2 Consistency: average Position: Mid Presentation:Cephalic Heart Rate Tracing: reactive and reassuring Tocometer: external monitor and adequate Assessment: Marcelino Daley is a 40w6d female admitted with active labor management and anticipate vag del Epidural prn clinical pelvimetry adequate to my exam. Plan: Admit - see IP orders Anticipate Prudencio Baker MD documented in this encounter Consult Notes Taqueria Woods LSW - 11/18/2016 10:42 AM CDTAssociated Order(s): SOCIAL WORK IP CONSULT D/I) SW responding to MD referral, met with Marcelino who is partnered with Oren. They live together in [place]. Charan is their first child together and they are prepared for him at home and are noton [place]. However Marcelino did request PHN referral for help with . 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 Marcelino's grandmother wi ll watch Charan when she returns to work. Marcelino has not completed her EPDS at this time. She does have a history of anxiety, depression and OCD. Some if this she attributes to the loss of her mother when she had treatment with Lexapro and some therap but does not feel the need for it now. Her appetite is good and she is not getting a lot ofsleep but reports she does not require much sleep. SW discussed baby blues/ depression at length and gave information on this. SWS also gave Parent Resource Guide with SWS contact information. A) Marcelino is A&O with appropriate affect and eye contact. She is very teary due to baby just left for circumcision. SW did not observe parent/ bonding but she speaks very attentively of baby. Oren has been at bedside and supportive. Extended family live nearby and are supportive. P) No further d/c needs at this time. SWS available upon request. documented in this encounter Miscellaneous Notes Note - Kerri Booker RN - 11/18/2016 9:30 AM CDT follow up. Offered to assist baby at the breast while baby was sleepy to see if he could be gently put at the breast with the larger nipple shield as the 20 mm is still causing mom pain. Babyrefused to latch with the larger one. Tried to move back to the smaller one but he was too upset. Finally took the pisano away and put on the bare breast and he NW with pain for mom at 8-9. She wants to nurse through the pain as baby does not want the pisano. Baby has resisted any changes we have tried to help mom with the pain but she continues to say he NW without the shield. Offered to wait onthe circ but she wanted it done today rather than wait and again said he is nursing well without the shield. Will plan phone f/up within a week to be sure she is doing well. She is using cream and hydrogels pc. Encouraged mom to call us PRN. Plan of Care - Dona Taveras RN - 11/18/2016 6:22 AM CDT Problem: Goal Outcome Summary Goal: Goal Outcome Summary Outcome: No Change Needing assistance and reassurance related to breast feeding and that baby is all right. Motrin given at this time for discomfort, monitor effectiveness. Asking appropriate questions. Breast are tender. Nipple shield used with decreased soreness. Plan to discharge home today. Plan of Care - Rajwinder Pierre RN - 11/17/2016 11:43 PM CDT Problem: Goal Outcome Summary Goal: Goal Outcome Summary Outcome: Improving Data: Vital signs within normal limits. checks within normal limits - see flow record. Patient eating and drinking normally. Patient able to empty bladder independently and is up ambulating.No apparent signs of infection. second degree repair healing well. Patient performing self cares andis able to care for infant. . Mother anxious during shift - social work consult placed for community resources. Action: Patient medicated during the shift for pain. See MAR. Patient education done about care. See flow record. Response: Positive attachment behaviors observed with . Support persons father of baby present. Plan: Anticipate discharge on . Note - Kerri Booker RN - 11/17/2016 3:00 PM CDT follow up. Returned at noon to help with latch. Baby had just had the frenulum released. He is both sleepy and snorty so used saline drops in his nose to clear some of the secretions. Once done tried tongue exercises but baby would not suck at all on the finger. Enc mom to wait until baby was more awake and try at the breast. Staff report at 3 pm today that mom has tried several times unsuccessfully to help baby latch. Back in room at 1510. Placed baby in the laid back position to awaken and help with latch. He bobs a lot but is not coming down on the breast and latching. Moved to the side lying and finally to the foodball hold. He needed tongue exercises to finally suck then able to gethim onto the breast. Pain levels so high again decided to try the nipple shield and he finally latched and NW with the 20 mm shield. Would like to move to the 24 mm as mom is still painful but a littlemore comfortable. Will f/up tomorrow. Plan of Care - Mariana Miller RN - 11/17/2016 2:41 PM CDT Problem: Goal Outcome Summary Goal: Goal Outcome Summary Outcome: Improving Pt Vitals stable. Up ad thelma. Voiding without difficulty. Soreness in perineum - swelling note. Tylenol, ibuprofen, tucks and ice provided for pain management. Breast feeding. Nipple soreness/redness with some skin breakdown noted. Attempted nipple shield, but pt declined to use as was not interested, encourage pt to try using it again later. Pt new to baby care, frequent education provided. Will continue to monitor. Note - Kerri Booker RN - 11/17/2016 9:30 AM CDT visit. Mom is c/o very sore nipples. Assisted with latch but unable to change the pain levels which are > 7. Offered nipple shield 24mm but baby would not take it. Moved to 20 mm and he still would not take the shield. Baby is tongue tied and Peds has ordered an ENT consult. Discussed tongue exercises ac each feeding to help retrain the suck after frenotomy is done. Mom wanted to try to tolerate feedings on the bare breast rather than make baby take the shield. Will return after ENT hascome. Plan of Care - Joya De Los Santos RN - 11/17/2016 5:44 AM CDT Problem: Goal Outcome Summary Goal: Goal Outcome Summary Stable patient meeting expected goals. All VS stable. Medicated with oxycodone for pain. Using ice, Tucks, and motherlove for comfort. infant with staff assistance, latch score of 6. SO at bedside, very supportive. Bonding well with . Plan of Care - Fely Cedeño RN - 11/16/2016 9:58 PM CDT Problem: , Vaginal Delivery (Adult) Goal: Signs and Symptoms of Listed Potential Problems Will be Absent or Manageable (, Vaginal Delivery) Signs and symptoms of listed potential problems will be absent or manageable by discharge/transitionof care (reference , Vaginal Delivery (Adult) CPG). Outcome: Improving Data: Marcelino Daley transferred to [facility] via wheelchair at 2100. Baby transferred via parent's arms. Action: Receiving unit notified of transfer: Yes. Patient and family notified of room change. Reportgiven to Yissel Daugherty RN at 2130. Belongings sent to receiving unit. Accompanied by Registered Nurse. Oriented patient to surroundings. Call light within reach. ID bands double-checked with Marli sawyer RN. Response: Patient tolerated transfer and is stable. Provider Notification - Fely Cedeño RN - 11/16/2016 9:51 PM CDT 11/16/162149 Provider Notification Provider Name/Title Dr. Sims Method of Notification Phone Request Evaluate - Remote Notification Reason Pain Updated MD that pt rates perineal pain 6/10, right labia quite swollen but soft, one time dose of percocet given. Asked if MD would like to order any further pain meds PRN if pt requires. Orders received for PRN oxycodone. Op Note - Niraj Sims MD - 11/16/2016 6:34 PM CDT OPERATIVE VAGINAL DELIVERY SUMMARY DATE OF DELIVERY: 11/16/2016 PRE-DELIVERY PROBLEMS: 1. Intrauterine at 41 weeks. 2. Spontaneous rupture of membranes of meconium-stained fluid. POST-DELIVERY PROBLEMS: 1. Intrauterine at 41 weeks. 2. Prolonged rupture of membranes of approximately 20 hours, meconium-stained fluid. 3. Arrest of descent in second stage secondary to maternal exhaustion. PROCEDURE: 1. Forceps-assisted vaginal delivery. 2. Repair of second-degree perineal tear. NARRATIVE SUMMARY: Marcelino Daley is a 31-year-old, 2, para 0 patient, who presented at 41 weeks with spontaneous rupture of membranes of meconium- stained fluid. She progressed spontaneously to 6 cm, at which time she had an arrest of dilatation and descent with a subnormal uterine contraction pattern identified. However, oxytocin was now begun, and she made slow but continued cervical change to complete. She was able to bring the baby to a pelvic floor station. After approximately 2.5 hours of maternal pushing effort, she was exhausted. The risks, benefits and alternatives were reviewed, and they included but were not limited to use of vacuum, use of forceps-assisted vaginal delivery, a primary caesarean . In view of station, a recommendation was made for a forceps vaginal delivery. Risks include maternal laceration of the pelvis and laceration of the scalp. With consent, preparations were made for a forceps-assisted vaginal delivery. The estimated weight was 9-1/2 pounds. Baby wasocciput anterior position at pelvic floor station. Forceps were applied after the bladder was emptied, and over the course of the next two contractions, the baby's head was brought across the perineum. Forceps accrued time was approximately 15 seconds.Forceps were removed, and it was noted there was a very tight nuchal cord. This was clamped, cut, and then the baby was delivered without shoulder dystocia. The nasal oropharynx was suctioned with bulbsuction prior to this, and then the baby was taken directly to the NICU staff who were in attendance. It should be noted that the NICU staff and Labor and Delivery and surgical team were ready should their presence be necessary. The placenta delivered spontaneously; a 3-vessel cord was noted. There were no vaginal lacerations. There were no cervical lacerations. There was a perineal tear consistent with a second-degree episiotomy, although no episiotomy was made, and this was repaired in standard fashion with 2-0 chromic suture. Mother and went to normal recovery and nursery, respectively. A living male, weighing 9 pounds 2 ounces, with Apgars of 8 and 9 was delivered. NIRAJ SIMS MD MT: #[id number] Name: MARCELINO DALEY Account: [id number] : 1985 Procedure Date: 11/16/2016 Document: [id number] Provider Notification - Niki Santoyo RN - 11/16/2016 5:29 PM CDT 11/16/16 1725 Provider Notification Provider Name/Title Levi Method of Notification At Bedside Request Evaluate in Person Notification Reason Baseline Change;Labor Status;Uterine Activity;SVE Provider Notification - Niki Santoyo RN - 11/16/2016 3:17 PM CDT 11/16/16 1515 Provider Notification Provider Name/Title Levi Method of Notification Phone Request Evaluate - Remote Notification Reason Labor Status;Uterine Activity;Pain;SVE Pt complete 10 cm. Pt is having low back pain, will start pushing as pt tolerates Provider Notification - Niki Santoyo RN - 11/16/2016 11:47 AM CDT 11/16/16 1140 Provider Notification Provider Name/Title Levi Method of Notification Phone Request Evaluate - Remote Notification Reason Labor Status;Uterine Activity;Status Update;SVE updated re:VE, FHTs, and UCs... Start pit augmentation Provider Notification - Niki Santoyo RN - 11/16/2016 9:30 AM CDT 11/16/16 0925 Provider Notification Provider Name/Title Levi Method of Notification At Bedside Request Evaluate - Remote Notification Reason Labor Status;Uterine Activity;SVE Plan of Care - Meena Zavala RN - 11/16/2016 7:12 AM CDT Bedside report given to Niki Wilcox RN who will assume cares at this time. Provider Notification - Meena Zavala RN - 11/16/2016 6:32 AM CDT 11/16/16 0629 Provider Notification Provider Name/Title Dr. Baker Method of Notification Phone Request Evaluate - Remote Notification Reason Status Update Dr. Baker updated on patient status. Reviewed recent 2.5-3 min PD with FHR down to 55 for 10 seconds, intermittent VD's, uterine activity, SVE, Pitocin off, IVF bolus, and position change. Moderate variability noted through out. Orders received to keep pit off until Dr. Sims rounds. Plan of Care - Meena Zavala RN - 11/16/2016 6:03 AM CDT 2.5-3 minute PD to 55 for 10 seconds. Pitocin off. IVF bolus. Patient repositioned to right lateral.Slow return to baseline noted. SVE 6.5/80/-1. Moderate variability noted through out. BP WNL. Updated MD, see attached note. Provider Notification - Meena Zavala RN - 11/16/2016 2:29 AM CDT 11/16/16 0228 Provider Notification Provider Name/Title Dr. Baker Method of Notification Phone Request Evaluate - Remote Notification Reason Uterine Activity;Status Update;SVE Dr. Baker updated on patient condition. Reviewed uterine activity with contractions 3-7 minutes apart, recent SVE with no change from previous exam, and FHR tracing with intermittent VD's and LD X2 resolved with position change. Moderate variability noted through out. Orders received to start low dose pitocin per protocol. IUPC with flush if VD's continue. Will update as needed. Plan of Care - Meena Zavala RN - 11/15/2016 11:20 PM CDT Bedside report received from Niki Wilcox RN. Will assume cares at this time. Provider Notification - Niki Santoyo RN - 11/15/2016 7:58 PM CDT 11/15/16 192 Provider Notification Provider Name/Title Samuel Method of Notification In Department Request Evaluate - Remote Notification Reason Patient Arrived;Membrane Status;Labor Status;Uterine Activity;Pain;SVE Reviewed VE with forebag and ballotable baby, mec present, + amnisure. Edema +3 with brisk reflexes , no clonus, denies PIH sx's but BPs elevated from clinic, PIH labs ordered Plan of Care - Niki Santoyo, CHRIST - 11/15/2016 6:45 PM CDT Walk in through ER..SROM at 1800, green.. Now [place]. Last checked 5 days ago in the clinic 2 cm, feels baby moving, monitors applied documented in this encounter Plan of Treatment Not on filedocumented as of this encounter Procedures Procedure Name Priority Date/Time Associated Comments Diagnosis HEMOGLOBIN Routine 11/17/2016 6:36 AM Results f or this CDT procedure are i n the results section. URIC ACID STAT 11/15/2016 8:00 PM Results f or this CDT procedure are i n the results section. AST STAT 11/15/2016 8:00 PM Results f or this CDT procedure are i n the results section. ANTI TREPONEMA STAT 11/15/2016 8:00 PM Results for this CDT procedure are i n the results section. ALT STAT 11/15/2016 8:00 PM Results f or this CDT procedure are i n the results section. ABO/RH TYPE AND Routine 11/15/2016 8:00 PM Result s for this SCREEN CDT procedure are i n the results section. ABO AND RH STAT 11/15/2016 8:00 PM Results f or this CDT procedure are i n the results section. BASIC METABOLIC STAT 11/15/2016 8:00 PM Result s for this PANEL CDT procedure are i n the results section. CBC WITH PLATELETS STAT 11/15/2016 8:00 PM Res ults for this CDT procedure are i n the results section. RUPTURE OF MEMBRANES STAT 11/15/2016 6:50 PM R esults for this BY AMNISURE CDT procedure are i n the results section. documented in this encounter Results Hemoglobin (11/17/2016 6:36 AM CDT) P athologist Signature Hemoglobin 12.3 11.7 - 15.7 [facility] g/dL HOSPITAL Specimen Anatomical Collection Method Collection Time Receive d Time (Source) Location / / Volume Laterality Blood specimen 11/17/2016 6:36 AM 017 6:50 (specimen) CDT AM CDT Niraj Sims MD LAB - BLOOD ORDERABLES Performing Organization Address [place] [facility] [place] M [facility] [address], [place] [address] [facility] [address] [place], [place] [address], [facility] [phone] ABO/Rh type and screen (11/15/2016 8:00 PM CDT) Patholo gist Method Time Signature ABO A [facility] RH(D) Pos [facility] Antibody Neg [place] Screen [facility] Test Valid [facility] Only At [facility] Specimen 11/18/2016 [facility] Specimen Anatomical Collection Method Collection Time Receive d Time (Source) Location / / Volume Laterality Blood specimen 11/15/2016 8:00 PM 017 2:44 (specimen) CDT PM CDT Niraj Sims MD LAB - BLOOD BANK TEST ORDER Performing Organization Address City/[facility]/ZIP Code Phon e Number M [facility] [address], [place] [address] [facility] [address] [place], [place] [address], [facility] [phone] Uric acid (11/15/2016 8:00 PM CDT) P athologist Signature Uric Acid 4.9 2.6 - 6.0 [facility] mg/dL [facility] Specimen Anatomical Collection Method Collection Time Receive d Time (Source) Location / / Volume Laterality Blood specimen 11/15/2016 8:00 PM 017 8:07 (specimen) CDT PM CDT Prudencio Baker MD LAB - BLOOD ORDERABLES Performing Organization Address City/[facility]/ZIP Code Phon e Number M [facility] [address], [place] [address] [facility] [address] [place], [place] [address], [facility] [phone] (ABNORMAL) Basic metabolic panel (11/15/2016 8:00 PM CDT) Patholo gist Method Time Signature Sodium 139 133 - 144 [place] mmol/L [facility] Potassium 3.7 3.4 - 5.3 [place] mmol/L [facility] Chloride 108 94 - 109 [place] mmol/L [facility] Carbon Dioxide 20 20 - 32 [place] mmol/L [facility] Anion Gap 11 3 - 14 [place] mmol/L [facility] Glucose 74 70 - 99 [place] mg/dL [facility] Urea Nitrogen 12 7 - 30 [place] mg/dL [facility] Creatinine 0.68 0.52 - [place] 1.04 [facility] mg/dL HOSPITAL GFR Estimate >90 >60 [place] Non GFR Calc mL/min/1. [facility] 7m2 HOSPITAL GFR Estimate >90 >60 [place] If Black GFR Calc mL/min/1. [facility] 7m2 [facility] Calcium 8.3 (L) 8.5 - [place] 10.1 [facility] mg/dL HOSPITAL Specimen Anatomical Collection Method Collection Time Receive d Time (Source) Location / / Volume Laterality Blood specimen 11/15/2016 8:00 PM 017 8:07 (specimen) CDT PM CDT Prudencio Baker MD LAB - BLOOD ORDERABLES Performing Organization Address City/State/ZIP Code Phon e Number M [facility] [address], [place] [address] [facility] [address] [place] [address], [facility] [phone] ALT (11/15/2016 8:00 PM CDT) P athologist Signature ALT 17 0 - 50 U/L [facility] Specimen Anatomical Collection Method Collection Time Receive d Time (Source) Location / / Volume Laterality Blood specimen 11/15/2016 8:00 PM 017 8:07 (specimen) CDT PM CDT Prudencio Baker MD LAB - BLOOD ORDERABLES Performing Organization Address City/State/ZIP Code Phon e Number M [facility] [address], [place] [address] [facility] [address] [place] [address], [facility] [phone] (ABNORMAL) CBC with platelets (11/15/2016 8:00 PM CDT) Analysis Performed At Patho logist Time Signature WBC 18.5 (H) 4.0 - 11.0 [place] 10e9/L [facility] RBC Count 3.53 (L) 3.8 - 5.2 [place] 10e12/L [facility] Hemoglobin 11.4 (L) 11.7 - [place] 15.7 g/dL [facility] Hematocrit 33.6 (L) 35.0 - [place] 47.0 % [facility] MCV 95 78 - 100 [place] fl [facility] MCH 32.3 26.5 - [place] 33.0 pg [facility] MCHC 33.9 31.5 - [place] 36.5 g/dL [facility] RDW 13.3 10.0 - [place] 15.0 % [facility] Platelet Count 199 150 - [address] Specimen Anatomical Collection Method Collection Time Receive d Time (Source) Location / / Volume Laterality Blood specimen 11/15/2016 8:00 PM 017 8:07 (specimen) CDT PM CDT Prudencio Baker MD LAB - BLOOD ORDERABLES Performing Organization Address City/State/ZIP Code Phon e Number [facility] [address], [place] [address] [facility] [address], [place] [address] [phone] AST (11/15/2016 8:00 PM CDT) P athologist Signature AST 18 0 - 45 U/L [facility] Specimen Anatomical Collection Method Collection Time Receive d Time (Source) Location / / Volume Laterality Blood specimen 11/15/2016 8:00 PM 017 8:07 (specimen) CDT PM CDT Prudencio Baker MD LAB - BLOOD ORDERABLES Performing Organization Address City/[facility]/ZIP Code Phon e Number M [facility] [address], [place] [address] [facility] [address], [place] [address], [facility] [phone] ABO and Rh (11/15/2016 8:00 PM CDT) Analysis Performed At Patho logist Time Signature ABO A [facility] RH(D) Pos [facility] Specimen 11/18/2016 [facility] Specimen Anatomical Collection Method Collection Time Receive d Time (Source) Location / / Volume Laterality Blood specimen 11/15/2016 8:00 PM 017 8:07 (specimen) CDT PM CDT Prudencio Baker MD LAB - BLOOD BANK TEST ORDER Performing Organization Address City/[facility]/ZIP Code Phon e Number M [facility] [address], [place] [address] [facility] [address] [place], [place] [address], [facility] [phone] Anti Treponema (11/15/2016 8:00 PM CDT) Analysis Performed At Patho logist Time Signature Treponema Negative NEG [facility] MEDICAL Antibody [facility] Specimen Anatomical Collection Method Collection Time Receive d Time (Source) Location / / Volume Laterality Blood specimen 11/15/2016 8:00 PM 017 8:07 (specimen) CDT PM CDT Prudencio Baker MD LAB - BLOOD ORDERABLES Performing Organization Address City/State/ZIP Code Phon e Number [facility] [address] [place] [address] [facility] (ABNORMAL) Rupture of membranes by Amnisure (11/15/2016 6:50 PM CDT) P athologist Signature Amnisure Positive (A) NEG [facility] Specimen (Source) Anatomical Collection Method Collection Time Re ceived Time Location / / Volume Laterality Cervicovaginal 11/15/2016 6:50 11/15/2016 [place] PM CDT 7:12 PM CDT Prudencio Baker MD LAB - BODY FLUIDS ORDERABLES Performing Organization Address City/State/ZIP Code Phon e Number M [facility] [address], [place] [address] [facility] [address] [phone] documented in this encounter Visit Diagnoses Diagnosis Vaginal delivery - Primary Normal delivery Vaginal delivery Normal delivery Indication for care in labor or delivery Unspecified indication for care or inter vention related to labor and delivery, unspecified as to episode of care documented in this encounter Administered Medications Inactive Administered Medications - up to 3 most recent administrations Medication Order MAR Action Action Date Dose Rate Site acetaminophen (TYLENOL) tablet Given 11/18/2016 10:34 AM CDT 650 mg 650 mg 650 mg, Oral, EVERY 4 HOURS PRN, mild pain, fever, greater than or equal to 38?? C /100.4?? F (oral) or 38.5?? C/ 101.4?? F (core)., Starting on Thu11/16/16 at 1818, Maximum acetaminophen dose from all sources = 75 mg/kg/day not to exceed 4 grams/day. Given 11/17/2016 1:04 PM CDT 650 mg bisacodyl (DULCOLAX) Suppository 10 mg 10 mg, Rectal, DAILY PRN, constipation, Starting on 11/18/16 at 0000 BUPivacaine (MARCAINE) 0.125% in New Bag 11/16/2016 12:46 PM C DT 250 mLs 15 mL/hr NaCl 0.9% 250 mL EPIDURAL infusion at 15 mL/hr, EPIDURAL, CONTINUOUS, Absolutely no anticoagulants, thrombolytics or antiplatelet medications or other opioid analgesics or other sedatives without prior notification of anesthesiology. For CADD cassettes, pharmacy to send epidural tubing set Ref # [id number] (5.1mL)., Starting on 11/15/16 at 2045, Until 11/16/16 at 2128 New Bag 11/15/2016 9:13 PM CDT 250 mLs 15 mL/hr fentaNYL Citrate (PF) (SUBLIMAZE) injection Given 10/26 7:52 PM CDT 100 mcg 50-100 mcg 50-100 mcg, Intravenous, EVERY 1 HOUR PRN, moderate to severe pain, Starting on 11/15/16 at 1940 hydrocortisone 2.5 % cream Rectal, 3 TIMES DAILY PRN, hemorrhoids, Starting on 11/16/16 at 1818, Apply to hemorrhoids. Send only if nurse requests. ibuprofen (ADVIL/MOTRIN) tablet 400-800 mg Given 11/18/2016 6:06 AM CDT 800 mg 400-800 mg, Oral, EVERY 6 HOURS PRN, other, cramping, Starting on 11/16/16 at 1818, Max dose 3200 mg/day. Given 11/17/2016 7:21 PM CDT 800 mg Given 11/17/2016 9:53 AM CDT 800 mg ibuprofen (ADVIL/MOTRIN) tablet 800 mg Given 11/16/2016 6:57 PM CDT 800 mg 800 mg, Oral, ONCE PRN, moderate pain (4-6), mild-moderate pain, Starting on 11/15/16 at 1938, For 1 dose, Available for administration after delivery. May give with acetaminophen. lactated ringers BOLUS 1,000 mL New Bag 11/15/2016 7:54 PM CDT 1,000 mLs 800 mL/hr Intravenous, 1,000 mL, ONCE PRN, IF patient to have epidural or intrathecal narcotics and NOT pre-eclamptic, Starting on 11/15/16 at 1938, For 1 dose, IV bolus 15-30 min prior to epidural, then IV fluids per labor orders lactated ringers BOLUS 1,000 mL Intravenous, 1,000 mL, ONCE PRN, post-pa rtum hemorrhage, Starting on 11/16/16 at 1818, For 1 dose, Rate: 500-1000 mL/hr. lactated ringers infusion New Bag 11/16/2016 2:14 PM CDT 1,000 mLs 125 mL/hr at 125 mL/hr, Intravenous, CONTINUOUS, Starting on 11/15/16 at 2000, Until 11/16/16 at 2128 New Bag 11/16/2016 6:14 AM CDT 125 mL/hr Rate/Dose Change 11/16/2016 6:04 AM CDT 999 mL/hr lanolin ointment Topical, EVERY 1 HOUR PRN, dry skin, sor e nipples, Starting on 11/16/16 at 1818, Apply to sore nipples. misoprostol (CYTOTEC) tablet 400 mcg 400 mcg, Oral, ONCE PRN, hemo rrhage, Starting on 11/16/16 at 1818, For 1 dose naloxone (NARCAN) injection 0.1-0.4 mg 0.1-0.4 mg, Intravenous, EVERY 2 MIN PRN, opioid rever ismael, for respiratory rate less than or equal to 8, Starting on 11/16/16 at 1818, For respiratory rate LESS than or EQUAL to 8. Partial reversal dose: 0.1 mg titr ated q 2 minutes for Analgesia Side Effects Monitoring Sedation Level of 3 (frequently drowsy, arousable, drifts to sleep during conver sation).Full reversal dose: 0.4 mg bolus for Analgesia Side Effects Monitoring Se dation Level of 4 (somnolent, minimal or no response to stimulation). NO Rho (D) immune globulin (RhoGam) need ed - mother Rh POSITIVE CONTINUOUS PRN, Starting on Thu11/16/16 at 1818, Until Thu11/18/16 at 1413 oxyCODONE (ROXICODONE) IR tablet 5-10 mg Given 11/17/2016 6:39 AM CDT 5 mg 5-10 mg, Oral, EVERY 6 HOURS PRN, moderate to severe pain, Starting on 11/16/16 at 2152 oxyCODONE-acetaminophen (PERCOCET) 5-325 MG Given 10/26 9:23 PM CDT 1 tablet per tablet 1 tablet 1 tablet, Oral, ONCE PRN, moderate to severe pain, Starting on 11/15/16 at 1938, For 1 dose, Available for administration after delivery. Maximum acetaminophen dose from all sources= 75 mg/kg/day not to exceed 4 grams oxytocin (PITOCIN) 30 units Rate/Dose Change 11/16/2016 6:09 PM 340 mL/hr 340 mL/hr in 500 mL 0.9% NaCl CDT infusion 100-340 mL/hr, Intravenous, CONTINUOUS PRN, after delivery to treat or prevent uterine atony, Starting on 11/15/16 at 1938, Administer 340 mL/hr over 30 minutes for a total of 170 mL then decrease to 100 mL/hr until infusion complete (about 3.5 hours) or per provider direction. Start new bag at delivery. Discontinue or saline lock peripheral IV per nurse discretion. oxytocin (PITOCIN) 30 Rate/Dose Change 11/16/2016 1:30 4 mauricio-unit s/min 4 mL/hr units in 500 mL 0.9% PM CDT NaCl infusion 1-24 mauricio-units/min (1-24 mL/hr), Intravenous, CONTINUOUS, Starting on [place] 11/16/16 at 0245, Start infusion at 2 mauricio-units/min. Increase by 1-2 mill-iunits/min every 30 minutes as clinically indicated until [...] before administering cervical ripening medication. Rate/Dose Change 11/16/2016 12:58 PM CDT 3 mauricio-units/min 3 mL/hr Rate/Dose Change 11/16/2016 12:06 PM CDT 2 mauricio-units/min 2 mL/hr oxytocin (PITOCIN) 30 units in 500 mL 0. 9% NaCl infusion 100 mL/hr, Intravenous, CONTINUOUS, Star ting on [place] 11/16/16 at 1830, At 100 mL/hr to follow after initial oxytocin loading dose (340 mL/hr). Continue until infusion complete (about 3.5 hours) or per provider discretion. Begin after delivery of placenta; IV to continue until patient s table. Discontinue or saline lock per nurse discretion. oxytocin (PITOCIN) 30 units in 500 mL 0. 9% NaCl infusion 340 mL/hr, Intravenous, CONTINUOUS PRN, for hemorrhage UNTIL bleeding subsided, Starting on [place] 11/16/16 at 181 8, When bleeding subsides decrease rate to 100 mL/hr. Notify provider immediately when infusion b egun. oxytocin (PITOCIN) injection 10 Units 10 Units, Intramuscular, ONCE PRN, hemorrha ge IF no IV access is available, Starting on [place] 11/16/16 at 1818, For 1 dose penicillin G potassium injection 5 Given 11/16/2016 2:34 PM CDT 5 Million Units Million Units Routine, 5 Million Units, Intravenous, ONCE, On [place] 11/16/16 at 1430, For 1 dose, Loading Dose. Active upon active labor status. For IV use, attach vial to piggyback bag, Indications: Group B Strep multivitamin plus iron per tablet Given 11/18 10:34 AM CDT 1 tablet 1 tablet 1 tablet, Oral, DAILY, First dose on Thu11/17/16 at 0900 Given 11/17/2016 9:53 AM CDT 1 tablet senna-docusate (SENOKOT-S;PERICOLACE) Given 11/18/2016 10:47 AM CDT 1 tablet 8.6-50 MG per tablet 1-2 tablet 1-2 tablet, Oral, 2 TIMES DAILY, First dose on 11/16/16 at 2100, Start with 1 tablet PO BID, If no bowel movement in 24 hours, increase to 2 tablets po BID. Hold for loose stools. Given 11/17/2016 9:06 PM CDT 1 tablet Given 11/17/2016 9:53 AM CDT 1 tablet sodium phosphate (FLEET ENEMA) 1 enema 1 enema, Rectal, DAILY PRN, constipation , Starting on Thu11/18/16 at 0000, Use if bisacodyl not effective documented in this encounter Active and Recently Administered Medications Times are shown in CDT. Scheduled Medication Order 11/16/2016 11/17/2016 11/18/2016 penicillin G potassium injection 5 Million Units (COMP LETED) 1434 (Given - Provider: Niki Santoyo RN) 5 Million Units, Intravenous, ONCE, [place] 11/16/16 at 1430, For 1 dose, Loading Dose. Active upon active labor status. For IV use, attach vial to piggyback bag, Indications: Group B Strep multivitamin plus iron per tablet 1 tablet 0953 (Given - Provider: Mariana Miller RN) 1034 (Given - Provider: Ilene Womack) 1 tablet, Oral, DAILY, First dose on Thu11/17/16 at 0900 senna-docusate (SENOKOT-S;PERICOLACE) 8.6-50 MG per tablet 1 -2 tablet 0010 (Not Given - Provider: Joya De Los Santos RN - Reason: Patient/family refused - Comment: begin in AM)0953 (Given - Provider: Mariana Miller RN)2106 (Given - Provider: Rajwinder Pierre RN) 1047 (Given - Provider: Ilene Womack 1-2 tablet, Oral, 2 TIMES DAILY, First d ose on 11/16/16 at 2100, Start with 1 tablet PO BID, If no bowel movement in 24 hours, increase to 2 tablets po BID. Hold for loose stools. Continuous Medication Order 11/16/2016 11/17/2016 11/18/2016 BUPivacaine (MARCAINE) 0.125% in NaCl 0.9% 250 mL EPID URAL infusion (CANCELED) 1246 (New Bag - Provider: Niki Santoyo RN)1801 (Stopped - Provider: Niki Santoyo RN) at 15 mL/hr, EPIDURAL, CONTINUOUS, Absol utely no anticoagulants, thrombolytics or antiplatelet medications or other opioid analgesics or other sedatives without prior notification of anesthesiology. For CADD cassettes, pharmacy to send epidur al tubing set Ref # [id number] (5.1mL)., Starting 11/15/16 at 2045, Until 11/16/16 at 2128 lactated ringers infusion (CANCELED) 0348 (New Bag - P rovider: Meena Zavala RN - Comment: IVF bolus for well being)0510 (Rate/Dose Change - Provider: Meena Zavala RN)0604 (Rate/Dose Change - Provider: Meena Zavala RN - Comment: IVF bolus for FHR tracing) at 125 mL/hr, Intravenous, CONTINUOUS, S tarting 11/15/16 at 2000, Until 11/16/16 at 2128 0614 (New Bag - Provider: Meena Zavala RN)1414 (New Bag - Provider: Niki Santoyo RN) oxytocin (PITOCIN) 30 units in 500 mL 0.9% NaCl infusi on (CANCELED) 0242 (New Bag - Provider: Meena Zavala, RN)0520 (Rate/Dose Change - Provider: Meena Zavala, CHRIST)0604 (Stopped - Provider: Meena Zavala RN)1140 (New Bag - Provider: Niki Santoyo, CHRIST)1206 (Rate/Dose Change - Provider: Niki Santoyo, CHRIST) 1-24 mauricio-units/min (1-24 mL/hr), Intra venous, at 1-24 mL/hr, CONTINUOUS, Starting 11/16/16 at 0245, Start infusion at 2 mauricio-units/min. Increase by 1-2 mill-iunits/min every 30 minutes as clinical 1258 (Rate/Dose Change - Provider: Niki Santoyo RN)1330 (Rate/Dose Change - Provider: Niki Santoyo RN) ly indicated until contractions are 2-3 [...] in 500 mL 0.9% NaCl infusi on 2125 (Not Given - Provider: Fely Cedeño RN - Reason: Other) 100 mL/hr, Intravenous, at 100 mL/hr, CO NTINUOUS, Starting [place] 11/16/16 at 1830, At 100 mL/hr to follow after initial oxytocin loading dose (340 mL/hr). Continue until infusion complete (about 3.5 hours) or per provider discretion. Begin after delivery of placenta; IV to continue until patient stable. Discontinue or saline lock per nurse discretion. PRN Medication Order 11/16/2016 11/17/2016 11/18/2016 acetaminophen (TYLENOL) tablet 650 mg 13 04 (Given - Provider: Mariana Miller RN) 1034 (Given - Provider: Ilene Womack) 650 mg, Oral, EVERY 4 HOURS PRN, mild pa in, fever, greater than or equal to 38?? C /100.4?? F (oral) or 38.5?? C/ 101.4?? F (core)., Starting [place] 11/16/16 at 1818, Maximum acetaminophen dose from all sources = 75 mg/kg/day not to exceed 4 grams/day. bisacodyl (DULCOLAX) Suppository 10 mg 10 mg, Rectal, DAILY PRN, constipation, Starting 11/18/16 at 0000 hydrocortisone 2.5 % cream Rectal, 3 TIMES DAILY PRN, hemorrhoids, Starting 11/16/16 at 1818, Apply to hemorrhoids. Send only if nurse requests. ibuprofen (ADVIL/MOTRIN) tablet 400-800 mg 0953 (Given - Provider: Mariana Miller, RN)1921 (Given - Provider: Rajwinder Pierre, RN) 0606 (Given - Provider: Dona Taveras RN) 400-800 mg, Oral, EVERY 6 HOURS PRN, oth er, cramping, Starting 11/16/16 at 1818, Max dose 3200 mg/day. ibuprofen (ADVIL/MOTRIN) tablet 800 mg (COMPLETED) 185 7 (Given - Provider: Niki Santoyo RN) 800 mg, Oral, ONCE PRN, moderate pain, m ild-moderate pain, Starting 11/15/16 at 1938, For 1 dose, Available for administration after delivery. May give with acetaminophen. lactated ringers BOLUS 1,000 mL Intravenous, 1,000 mL, ONCE PRN, post-pa rtum hemorrhage, Starting 11/16/16 at 1818, For 1 dose, Rate: 500-1000 mL/hr. lanolin ointment Topical, EVERY 1 HOUR PRN, dry skin, sor e nipples, Starting 11/16/16 at 1818, Apply to sore nipples. misoprostol (CYTOTEC) tablet 400 mcg 400 mcg, Oral, ONCE PRN, hemo rrhage, Starting 11/16/16 at 1818, For 1 dose naloxone (NARCAN) injection 0.1-0.4 mg 0.1-0.4 mg, Intravenous, EVERY 2 MIN PRN , opioid reversal, for respiratory rate less than or equal to 8, Starting 11/16/16 at 1818, For respiratory rate LESS than or EQUAL to 8. Partial reversal dose : 0.1 mg titrated q 2 minutes for Analge justin Side Effects Monitoring Sedation Level of 3 (frequently drowsy, arousable, drifts to sleep during conversation).Full reversal dose: 0.4 mg bolus for Analgesia Side Effects Monitoring Sedation Level of 4 (somnolent, minimal or no response to stimulation). NO Rho (D) immune globulin (RhoGam) needed - mother Rh POSITIVE CONTINUOUS PRN, Starting 11/16/16 at 1818, Until 11/18/16 at 1413 oxyCODONE (ROXICODONE) IR tablet 5-10 mg 39 (Given - Provider: Joya De Los Santos, RN) 5-10 mg, Oral, EVERY 6 HOURS PRN, modera te to severe pain, Starting 11/16/16 at 2152 oxyCODONE-acetaminophen (PERCOCET) 5-325 MG per tablet 1 tablet (COMPLETED) 2122 (Given - Provider: Fely Cedeño, CHRIST) 1 tablet, Oral, ONCE PRN, moderate to se paul pain, Starting 11/15/16 at 1938, For 1 dose, Available for administration after delivery. Maximum acetaminophen dose from all sources= 75 mg/kg/day not to exceed 4 grams oxytocin (PITOCIN) 30 units in 500 mL 0.9% NaCl infusi on (CANCELED) 1808 (Rate/Dose Change - Provider: Niki Santoyo RN) 100-340 mL/hr, Intravenous, at 100-340 m L/hr, CONTINUOUS PRN, after delivery to treat or prevent uterine atony, Starting 11/15/16 at 1938, For 1 dose, Administer 340 mL/hr over [...] 340 mL/hr, CO NTINUOUS PRN, for hemorrhage UNTIL bleeding subsided, Starting 11/16/16 at 1818, When bleeding subsides decrease rate to 100 mL/hr. Notify provider immediately when infusion begun. oxytocin (PITOCIN) injection 10 Units 10 Units, Intramuscular, ONCE PRN, postp artum hemorrhage IF no IV access is available, Starting 11/16/16 at 1818, For 1 dose sodium phosphate (FLEET ENEMA) 1 enema 1 enema, Rectal, DAILY PRN, constipation , Starting 11/18/16 at 0000, Use if bisacodyl not effective documented in this encounter Additional Health Concerns Assessment Noted Time PHQ-9 Depression Total Score: 5 04/22/2016 7:19 AM CDT documented as of this encounter Care Teams Platform Beater Relationship Specialty Start Date End Date Annalisa Mark APRN CNP PCP - General Nurse Practitioner 03/22/15 [address] [place] [address] documented as of this encounter
--- OUTSIDE RECORDS SUMMARY | 2022-06-06 21:03 | XMS_ITS | Encounter Summary ---
:1985 Author Organization [place] Address [facility] [place] [address] Care Team Providers Name Role Phone DeedeeSwapna deanarnulfo Peacock APRN, CNP Primary Care Provider [phone] Reason for Visit Reason Comments Care Encounter Details Date Type Department Care Team Description 09/29/2016 Office [facility] Pete Martin care, first Visit [facility] MD Alexandre , th ird [place] trimester (Primary [address] [place] [address] [place] [address] Social History Tobacco Use Types Packs/Day Years [...] you attend yazidism or Patient refused 2021 latter-day services? Do [...] a [place] [facility] [place] (including now)? Sex Assigned at Date Recorded Female 03/25/2021 2:01 PM CDT documented as of this encounter Last Filed Vital Signs Vital Sign Reading Time Taken Comments Blood Pressure 108/62 09/29/2016 2:12 PM ADJUNCT LECTURER Pulse - - Temperature 36.9 ??C (98.5 ??F) 09/29/2016 2:12 PM ADJUNCT LECTURER Respiratory Rate - - Oxygen Saturation - - Inhaled Oxygen Concentration - - Weight 65.2 kg (143 lb 12.8 oz) 09/29/2016 2:12 PM ADJUNCT LECTURER Height - - Body Mass Index 25.47 09/03/2016 9:37 PM ADJUNCT LECTURER documented in this encounter Progress Notes Pete Martin - 09/29/2016 3:30 PM CST Doing well. NCT LECTURER documented in this encounter Nursing Notes Marce Bazzi CMA - 09/29/2016 3:30 PM CST Chief Complaint Patient presents with ??? Care 34w1d Marce Bazzi MA Initial BP 108/62 (BP Location: Right arm, Patient Position: Chair, Cuff Size: Adult Regular) Temp 98.5 ??F (36.9 ??C) (Oral) Wt 143 lb 12.8 oz (65.2 kg) LMP 01/27/2016 BMI 25.47 kg/m2 Estimated body mass index is 25.47 kg/(m^2) as calculated from the following: Height as of 17: 5' 3 (1.6 m). Weight as of this encounter: 143 lb 12.8 oz (65.2 kg). Medication Reconciliation: complete NCT LECTURER documented in this encounter Plan of Treatment Not on filedocumented as of this encounter Visit Diagnoses Diagnosis care, first , third tr imester - Primary documented in this encounter Additional Health Concerns Assessment Noted Time PHQ-9 Depression Total Score: 5 04/22/2016 7:19 AM CDT documented as of this encounter Care Teams Public Accountant Relationship Specialty Start Date End Date Annalisa Mark APRN SHANK SCOURER PCP - General Nurse Practitioner 03/22/15 [address] [place] [address] documented as of this encounter
--- OUTSIDE RECORDS SUMMARY | 2022-06-06 21:03 | XMS_ITS | Encounter Summary ---
:1985 Author Organization [place] Address [address] [place] [address]. [place] [address] Care Team Providers Name Role Phone DeedeeSwapna deanarnulfo Peacock APRN, CNP Primary Care Provider [phone] Reason for Visit Reason Comments Care Encounter Details Date Type Department Care Team Description 11/05/2016 Office [facility] Pete Martin care, first Visit [facility] MD Alexandre , th ird [place] trimester (Primary [address]) [place] [address] [place] [address] Social History Tobacco Use Types Packs/Day Years [...] you attend islam or Patient refused 2021 protestant services? Do [...] Sign Reading Time Taken Comments Blood Pressure 108/68 11/05/2016 2:53 PM CDT Pulse - - Temperature 36.9 ??C (98.5 ??F) 11/05/2016 2:53 PM CDT Respiratory Rate - - Oxygen Saturation - - Inhaled Oxygen Concentration - - Weight 70.2 kg (154 lb 11.2 oz) 11/05/2016 2:53 PM CDT Height - - Body Mass Index 27.4 09/03/2016 9:37 PM SEWING TEACHER documented in this encounter Progress Notes Pete Martin - 11/05/2016 2:45 PM CDT Doing well. documented in this encounter Nursing Notes Marce Bazzi CMA - 11/05/2016 2:45 PM CDT Chief Complaint Patient presents with ??? Care 39w3d Marce Bazzi MA Initial BP 108/68 (BP Location: Right arm, Patient Position: Chair, Cuff Size: Adult Regular) Temp98.5 ??F (36.9 ??C) (Oral) Wt 154 lb 11.2 oz (70.2 kg) LMP 01/27/2016 BMI 27.4 kg/m2 Estimatedbody mass index is 27.4 kg/(m^2) as calculated from the following: Height as of 17: 5' 3 (1.6 m). Weight as of this encounter: 154 lb 11.2 oz (70.2 kg). Medication Reconciliation: complete documented in this encounter Plan of Treatment Not on filedocumented as of this encounter Visit Diagnoses Diagnosis care, first , third tr imester - Primary documented in this encounter Additional Health Concerns Assessment Noted Time PHQ-9 Depression Total Score: 5 04/22/2016 7:19 AM CDT documented as of this encounter Care Teams Passenger Service Representative Relationship Specialty Start Date End Date Annalisa Mark APRN EXECUTIVE COMPENSATION ANALYST PCP - General Nurse Practitioner 03/22/15 [address] [place] [address] documented as of this encounter
--- OUTSIDE RECORDS SUMMARY | 2022-06-06 21:03 | XMS_ITS | Encounter Summary ---
:1985 Author Organization [place] Address [facility] [place] [address] Care Team Providers Name Role Phone DeedeeSwapna deanarnulfo Peacock APRN, CNP Primary Care Provider [phone] Reason for Visit Reason Comments Care Encounter Details Date Type Department Care Team Description 09/17/2016 Office [facility] Pete Martin care, first Visit [facility] MD Alexandre , th ird [place] trimester (Primary [address]) [place] [address] [place] [address] Social History Tobacco Use Types Packs/Day Years [...] you attend amish or Patient refused 2021 sabianism services? Do [...] or slept in a long-term (including now)? Sex Assigned at Date Recorded Female 03/25/2021 2:01 PM CDT documented as of this encounter Last Filed Vital Signs Vital Sign Reading Time Taken Comments Blood Pressure 102/60 09/17/2016 10:02 AM MATERNITY FLOOR SUPERVISOR Pulse - - Temperature - - Respiratory Rate - - Oxygen Saturation - - Inhaled Oxygen Concentration - - Weight 64.7 kg (142 lb 11.2 oz) 09/17/2016 10:02 AM MATERNITY FLOOR SUPERVISOR Height - - Body Mass Index 25.28 09/03/2016 9:37 PM MATERNITY FLOOR SUPERVISOR documented in this encounter Progress Notes Pete Martin - 09/17/2016 10:00 AM CST Doing well. RNITY FLOOR SUPERVISOR documented in this encounter Nursing Notes Marce Bazzi CMA - 09/17/2016 10:00 AM CST Chief Complaint Patient presents with ??? Care 32w3d Marce Bazzi MA Initial BP 102/60 Wt 142 lb 11.2 oz (64.7 kg) LMP 01/27/2016 BMI 25.28 kg/m2 Estimated body mass index is 25.28 kg/(m^2) as calculated from the following: Height as of 17: 5' 3 (1.6 m). Weight as of this encounter: 142 lb 11.2 oz (64.7 kg). Medication Reconciliation: complete RNITY FLOOR SUPERVISOR documented in this encounter Plan of Treatment Not on filedocumented as of this encounter Visit Diagnoses Diagnosis care, first , third tr imester - Primary documented in this encounter Additional Health Concerns Assessment Noted Time PHQ-9 Depression Total Score: 5 04/22/2016 7:19 AM CDT documented as of this encounter Care Teams Clinical Project Leader Relationship Specialty Start Date End Date Annalisa Mark APRN SUPERINTENDENT MEASUREMENT PCP - General Nurse Practitioner 03/22/15 [address] [place] [address] documented as of this encounter
--- OUTSIDE RECORDS SUMMARY | 2022-06-06 21:03 | XMS_ITS | Encounter Summary ---
:1985 Author Organization [place] Address [address] [place] [address]. [place] [address] Care Team Providers Name Role Phone DeedeeSwapna deanarnulfo Peacock APRN, CNP Primary Care Provider [phone] Reason for Visit Reason Comments Care Encounter Details Date Type Department Care Team Description 10/27/2016 Office [facility] Pete Martin care, first Visit [facility] MD Alexandre , th ird [place] trimester (Primary [address]) [place] [address] [place] [address] Social History Tobacco Use Types Packs/Day Years [...] you attend mandaen or Patient refused 2021 denominational services? Do [...] or slept in a fci (including now)? Sex Assigned at Date Recorded Female 03/25/2021 2:01 PM CDT documented as of this encounter Last Filed Vital Signs Vital Sign Reading Time Taken Comments Blood Pressure 104/72 10/27/2016 3:52 PM CDT Pulse - - Temperature 36.8 ??C (98.2 ??F) 10/27/2016 3:52 PM CDT Respiratory Rate - - Oxygen Saturation - - Inhaled Oxygen Concentration - - Weight 69.3 kg (152 lb 12.8 oz) 10/27/2016 3:52 PM CDT Height - - Body Mass Index 27.07 09/03/2016 9:37 PM ASSISTANT PROFESSOR OF MATHEMATICS documented in this encounter Progress Notes Pete Martin - 10/27/2016 3:45 PM CDT Some anxiety in regards to . documented in this encounter Nursing Notes Marce Bazzi CMA - 10/27/2016 3:45 PM CDT Chief Complaint Patient presents with ??? Care 38w1d Marce Bazzi MA Initial BP 104/72 (BP Location: Left arm, Patient Position: Chair, Cuff Size: Adult Regular) Temp 98.2 ??F (36.8 ??C) (Oral) Wt 152 lb 12.8 oz (69.3 kg) LMP 01/27/2016 BMI 27.07 kg/m2 Estimatedbody mass index is 27.07 kg/(m^2) as calculated from the following: Height as of 17: 5' 3 (1.6 m). Weight as of this encounter: 152 lb 12.8 oz (69.3 kg). Medication Reconciliation: complete documented in this encounter Plan of Treatment Not on filedocumented as of this encounter Visit Diagnoses Diagnosis care, first , third tr imester - Primary documented in this encounter Additional Health Concerns Assessment Noted Time PHQ-9 Depression Total Score: 5 04/22/2016 7:19 AM CDT documented as of this encounter Care Teams Mission Manager Relationship Specialty Start Date End Date Annalisa Mark APRN TOP STEEP TENDER PCP - General Nurse Practitioner 03/22/15 [address] [place] [address] documented as of this encounter
--- OUTSIDE RECORDS SUMMARY | 2022-06-06 21:03 | XMS_ITS | Encounter Summary ---
:1985 Author Organization [place] Address [address] [place] [address]. [place] [address] Care Team Providers Name Role Phone DeedeeAnnalisa dean Madonna STANLEY CNP Primary Care Provider [phone] Reason for Visit Reason Comments Decreased Movement Encounter Details Date Type Department Care Team Description 10/29/2016 Hospital Encounter [facility] Clair Barnes MD [facility] [address] [facility] [address] [place] [address] [place], [place] [phone] (Wo rk) [address] [phone] Social History Tobacco Use Types Packs/Day Years [...] you attend yarsani or Patient refused 2021 zoroastrian services? Do [...] Sign Reading Time Taken Comments Blood Pressure 107/75 10/29/2016 11:21 AM CDT Pulse 86 10/29/2016 11:21 AM CDT Temperature 36.8 ??C (98.3 ??F) 10/29/2016 11:21 AM CDT Respiratory Rate 18 10/29/2016 11:21 AM CDT Oxygen Saturation - - Inhaled Oxygen Concentration - - Weight - - Height - - Body Mass Index - - documented in this encounter Discharge Instructions Discharge InstructionsEstelle Vargas RN - 10/29/2016 12:17 PM CDT Discharge Instruction for Undelivered Patients You were seen for: Assessment We Consulted: Dr. Barnes You had (Test or Medicine):NST and uterine monitoring. Diet: Drink 8 to 12 glasses of liquids (milk, juice, water) every day. You may eat meals and snacks. Activity: Call your doctor or nurse shellfish processing laborer if your baby is moving less than [...] vaginal discharge (note the color and amount) Other: Call provider if further questions or concerns. Follow-up: As scheduled in the clinic documented in this encounter Medications at Time of Discharge Medication Sig Dispensed Refills Start Date End Date calcium carbonate (OS-TRUMAN Take 500 mg by 0 04/21/2017 500 MG [place]. CA) 500 MG mouth 2 times daily tablet cephALEXin (KEFLEX) 500 Take 1 capsule by 14 capsule 0 01/2906/28/2019 MG capsuleIndications: mouth 2 times daily Other acute otitis for 7 days. externa Vit-Fe Take 1 tablet by 100 tablet 3 03/04/2016 Fumarate-FA ( mouth daily MULTIVITAMIN PLUS IRON) 27-0.8 MG TABSIndications: Encounter for supervision of normal first , unspecified trimester zolpidem (AMBIEN) 5 MG Take 1 tablet (5 14 tablet 0 017 11/18/2016 tabletIndications: mg) by mouth Insomnia, unspecified nightly as needed type for sleep documented as of this encounter Miscellaneous Notes Plan of Care - Estelle Vargas RN - 10/29/2016 12:34 PM CDT Baby more active now. Discharge instructions reviewed. Patient verbalized understanding. Patient to call if further decreased movement, questions or concerns. Discharged to home.. Provider Notification - Estelle Vargas RN - 10/29/2016 12:11 PM CDT 10/29/16 1208 Provider Notification Provider Name/Title Dr. Barnes Method of Notification Phone Request Evaluate - Remote Notification Reason Patient Arrived;Status Update , 38 3/7 weeks gestation. Has had decreased movement since yesterday. Monitors explained and applied. History and reviewed. Movement visualized when monitors applied. Reactive NST. Dr. Barnes updated. Order received for discharge. documented in this encounter Plan of Treatment Not on filedocumented as of this encounter Procedures Procedure Name Priority Date/Time Associated Diagnosis Comme nts NON-STRESS TEST - 10/29/2016 12:00 AM CDT HIM SCAN documented in this encounter Results NON-STRESS TEST - HIM SCAN (10/29/2016 12:00 AM CDT) Specimen (Source) Anatomical Location Collection Method / Collectio n Time Received Time / Laterality Volume 10/29/2016 Narrative This result has an attachment that is no t available. Provider Scan PROCEDURES documented in this encounter Visit Diagnoses Diagnosis Encounter for triage in patient documented in this encounter Additional Health Concerns Assessment Noted Time PHQ-9 Depression Total Score: 5 04/22/2016 7:19 AM CDT documented as of this encounter Care Teams Child Care Team Lead Relationship Specialty Start Date End Date Annalisa Mark APRN COLD PRESS LOADER PCP - General Nurse Practitioner 03/22/15 [address] [place] [address] documented as of this encounter
--- OUTSIDE RECORDS SUMMARY | 2022-06-06 21:03 | XMS_ITS | Encounter Summary ---
:1985 Author Organization [place] Address [address] [place], [place] [address]. [place] [address] Care Team Providers Name Role Phone Annalisa Marksalima STANLEY CNP Primary Care Provider [phone] Reason for Visit Reason Onset Date Comments Call Back 11/24/2016 mom is pumping pc an d giving formula/EBM pc. Was giving 3 oz pc and gets 2-4 oz pc. baby needs 2 3/4 oz q 3 hours so enc mom to use EBM instead of f ormula now. she was told to nurse 5-10 each side then stop and g liudmila formula 3 oz. since baby gained 6 oz in 1 day, enc mom to do breast compression while nursing to speed feeding and let baby finish if still swallowing at 10 . Offered OP visit t o better assess volume at breast. she will check insurance and call again to schedule. Encounter Details Date Type Department Care Team Description 11/24/2016 Telephone [facility] Kerri Figueroa, Call Ba jeanne (mom is [facility] RN pumping pc and giving [address] formula/EBM pc. [place], [place] 3 [place] [phone] 2-4 oz pc. baby needs 3/4 oz q 3 hour s so enc mom to use EBM instead of formula now. she was told to nurse 5 -10 each side then stop and give formula 3 oz. s colleen baby gained 6 oz in 1 day, enc mom to do b reast compression whi le nursing to spee d feeding and let baby fi angi if still swallowin g at 10 . Offered OP l actation visit to better assess volume at [facility]. she will check insu los and call again to nat mcduffie.) Social History Tobacco Use Types Packs/Day Years [...] you attend alevism or Patient refused 2021 amish services? Do [...] documented as of this encounter Care Teams Card Player Relationship Specialty Start Date End Date Annalisa Mark APRN CNP PCP - General Nurse Practitioner 03/22/15 [address] [place] [address] documented as of this encounter
--- OUTSIDE RECORDS SUMMARY | 2022-06-06 21:03 | XMS_ITS | Encounter Summary ---
:1985 Author Organization [place] Address [facility] [place] [address] Care Team Providers Name Role Phone DeedeeSwapna deanarnulfo [place] JADEN DISTRIBUTION SUPERINTENDENT Primary Care Provider [phone] Reason for Visit (Routine) - Closed Specialty Diagnoses / Procedures Referred By Contact Refer red To Contact Radiology / Diagnoses EPIC ORDER, sb pt Rh Ultrasound cc Radiology. [place] [address] [address] [place] [address] Phone: Fax: Referral ID Status Reason Start Date Expiration Date Visits Requ ested Visits Authorized [id number] Closed 12/16/2016 12/16/2017 1 1 Encounter Details Date Type Department Care Team Description 12/16/2016 Hospital Encounter [facility] Annalisa Beavers Skin lesion of right [place] [facility] DISTRIBUTION SUPERINTENDENT [address] [address] [facility] [address] [facility] [phone] Social History Tobacco Use Types Packs/Day Years [...] or relatives? How often do you attend jain or Patient refused 2021 amish services? Do you belong to any clubs or No 10/17/2021 organizations such as jain groups, unions, fraternal or athletic groups, or [...] or slept in a correction (including now)? Sex Assigned at Date Recorded Female 03/25/2021 2:01 PM CDT documented as of this encounter Medications at Time of Discharge Medication Sig Dispensed Refills Start Date End Date calcium carbonate Take 500 mg by mouth 0 04/21/2017 (OS-TRUMAN 500 MG [place]. 2 times daily CA) 500 MG tablet cephALEXin (KEFLEX) 500 Take 1 capsule by 14 capsule 0 01/2906/28/2019 MG capsuleIndications: mouth 2 times daily Other acute otitis for 7 days. externa Hydrocortisone Acetate Externally apply 1 g 28.4 g 1 09/23/2017 2.5 % CREAIndications: topically 3 times Allergic dermatitis due daily to other chemical product ibuprofen Take 1 tablet (800 60 tablet 0 11/18/20162017 (ADVIL/MOTRIN) 800 MG mg) by mouth every 8 tabletIndications: hours as needed for Vaginal delivery other (cramping) Vit-Fe Take 1 tablet by 100 tablet 3 03/04/2016 Fumarate-FA ( mouth daily MULTIVITAMIN PLUS IRON) 27-0.8 MG TABSIndications: Encounter for supervision of normal first , unspecified trimester senna-docusate Take 1 tablet by 100 tablet 0 11/18/201603/28 (SENOKOT-S;PERICOLACE) mouth daily as needed 8.6-50 MG per for constipation tabletIndications: Vaginal delivery documented as of this encounter Progress Notes Annalisa Mark APRN CNP - 12/16/2016 9:38 PM CDT Ben English, The ultrasound shows that the area on your leg is either a small lymph node or a lipoma. Please follow up if the area is getting larger. Sincerely, Annalisa Mark CNP documented in this encounter Plan of Treatment Not on filedocumented as of this encounter Procedures Procedure Name Priority Date/Time Associated Diagnosis Comme nts US EXTREMITY NON Routine 12/16/2016 9:08 AM Skin lesion of rig ht Results for this VASCULAR RIGHT CDT leg procedure are in the results section. documented in this encounter Results US Extremity Non Vascular [...] a small lymph node or lipoma. VIKASH ROSARIO MD Narrative 12/16/2016 1:24 PM CDT ULTRASOUND [...] in th is region. Procedure Note Vikash Rosario MD - 12/16/2016Forma tting of this note [...] a small lymph node or lipoma. VIKASH ROSARIO MD Annalisa Mark APRN, CNP [facility] US ORDERABLES documented in this encounter Visit Diagnoses Diagnosis Skin lesion of right leg Unspecified disorder of skin and subcuta neous tissue documented in this encounter Additional Health Concerns Assessment Noted Time PHQ-9 Depression Total Score: 5 04/22/2016 7:19 AM CDT documented as of this encounter Care Teams Cvt Tech Relationship Specialty Start Date End Date Annalisa Mark APRN CNP PCP - General Nurse Practitioner 03/22/[id number] [place] [address] documented as of this encounter
--- OUTSIDE RECORDS SUMMARY | 2022-06-06 21:03 | XMS_ITS | Encounter Summary ---
:1985 Author Organization [place] Address [facility] 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 Diagnoses Indication for care in labor or delivery Indication for care in labor or delivery Vaginal delivery [address] [place], [place] [address] Phone: Fax: Referral ID Status Reason Start Date Expiration Date Visits Requ ested Visits Authorized [id number] 1 1 Encounter Details Date Type Department Care Team Description 11/15/2016 Anesthesia Event [facility] Farhan Olea Birthplace MD José Miguel [address] [place] [address] ANESTHESIA [id number] [place], [place] [address] (Wo rk) Anesthesia Record Procedure Summary Procedure Name Responsible Anesthesia Start Time Anesthesia Stop Time Anesthesiologist LABOR ANALGESIA Nayan Olea, 11/15/1610/26 Events Date Time Event Comment 11/15/20162050 An Start 2101 An Stop Electronically s igned by Nayan Olea on November 15, 2016 9 :05 PM 11/16/2016 1303 Non-OR Block Start Jh Chacko orn 1308 Non-OR Block Stop Jh Cohen rn .Epidural rebolus Bupivicaine 0.25% 11 cc for discomfort Electronically signed R Leblanc 1424 Non-OR Block Start Jh Elias Osb orn 1429 Non-OR Block Stop Jh Cohen rn .Epidural rebolus Bupivicaine 0.25% 11 cc for discomfort Electronically signed R Leblanc 1424 to 1 429 Name Total bupivacaine 0.25% PF 15 mL Agents No agents on file. Blood No blood administrations on file. Lines, Drains, and Airways Type Details Placement Removal Peripheral IV 11/15/16; 1953; 18 G; 11/15/161953 by 11/17/16 1313 by Left; Hand; Tolerated Niki Santoyo RN Aubart, Michelle L, well RN Intrathecal/Epidural 11/15/16; 2104; 11/15/162104 by 11/18/16 1 128 by Catheter Epidural Nayan Olea-José Miguel Cabrera MD Kathryn, RN documented in this encounter Social History Tobacco [...] you attend congregational or Patient refused 2021 muslim services? Do [...] encounter OR Notes Anesthesia Postprocedure Evaluation - Jh Leblanc DO - 11/17/2016 9:05 AM CDT Patient: Tameka Grissom * No procedures listed * Diagnosis:* No pre-op diagnosis entered * Diagnosis Additional Information: Labor pain Dr. Baker Anesthesia Type: Epidural Note: Anesthesia Post Evaluation Patient location during evaluation: PACU Patient participation: Able to fully participate in evaluation Level of consciousness: awake Pain management: adequate Airway patency: patent Cardiovascular status: acceptable Respiratory status: acceptable Hydration status: acceptable PONV: controlled Anesthetic complications: None Comments: .Labor Epidural Post delivery note. Doing well. VSS Temp normal. Satisfactory respiratory and cardiovascular function. Return of neurologic function. Questions encouraged and answered. Denies positional headache. Minimal side effects easily managed w/ PRN meds. No apparent anesthetic complications. No follow-up required. I or my partner was immediately available for epidural management. Ilene Leblanc Last vitals: Vitals: 11/16/16200211/16/16 2325 11/17/16 0639 BP: 118/61 123/54 128/78 Resp: 18 18 Temp: 98.3 ??F (36.8 ??C) 98.3 ??F (36.8 ??C) Electronically Signed By: Jh Leblanc DO November 17, 2016 9:05 AM Anesthesia Procedure Notes - Nayan Olea MD - 11/15/2016 9:06 PM CDTAssociated Order(s): ANE EPIDURAL BLOCK Peripheral nerve/Neuraxial procedure note : Assessment/Narrative . . . Comments: Pt seen and interviewed prior to epidural placement for labor analgesia. This epidural is to be placed in anticipation of normal vaginal delivery. Risk discussed and consent given prior to performance of procedure. Time out consisting of identification of patient and desire for epidural analgesia was confirmed. Sterile prep of lumbar spine was accomplished with povidone iodine three times. L45 interspace was identified. Local anesthetic infiltration with 1.5% lido with epi 1/200k was performed with 1.5 cc. 17 G Tuohy needle was advanced in the midline with loss of resistance technique. No CSF, blood, or paresthesias were noted with placement. Test dose of 1.5% Lidocaine with epi 1/200k, 3 cc., was injected without evidence of intrathecal or intravascular injection. Incremental bolus of 0.25% Bupivicainewas injected to a total volume of 15 cc. Epidural cath 19 G was advanced through needle approx. 6 cm. No paresthesia was noted with placementand aspiration of cath was negative for blood. Catheter secured with tegaderm and tape. Epidural infusion begun after double check of pump settings. Nursing to inform if there are any complications, but none were noted prior to leaving patient room. I, or my partners, remain immediately available for management of any issues or complications. I, ormy partners, will monitor at appropriate intervals. Cyndee Olea MD Anesthesia Preprocedure Evaluation - Nayan Olea MD - 11/15/2016 8:46 PM CDT PAC NOTE: ANESTHESIA PRE EVALUATION: Anesthesia Evaluation history and physical reviewed . No history of anesthetic complications ROS/MED HX ENT/Pulmonary: - neg pulmonary ROS Neurologic: - neg neurologic ROS Cardiovascular: - neg cardiovascular ROS METS/Exercise Tolerance: Hematologic: Musculoskeletal: GI/Hepatic: - neg GI/hepatic ROS Renal/Genitourinary: Endo: Psychiatric: Infectious Disease: Malignancy: Other: Physical Exam Normal systems: cardiovascular, pulmonary and dental Airway Mallampati: II TM distance: > 3 FB Neck ROM: full Mouth opening: > 3 cm Dental Cardiovascular Pulmonary Other findings: Lab Test 11/15/16 08/07/16 06/09/161999 0936 1623 WBC 18.5* 14.4* 14.4* HGB 11.4* 11.5* 11.0* MCV 95 99 97 PLT 199 207 208 Lab Test 11/15/161999 NA 139 POTASSIUM 3.7 CHLORIDE 108 CO2 20 BUN 12 CR 0.68 ANIONGAP 11 TRUMAN 8.3* GLC 74 OCD depression Anesthesia Plan History & Physical Review ASA Status: . OB Epidural Asa: 2 Postoperative Care Consents Anesthetic plan, risks, benefits and alternatives discussed with: Patient.. . documented in this encounter Miscellaneous Notes Addendum Note - Jh Leblanc DO - 11/17/2016 9:05 AM CDT Addendum created 11/17/16 0905 by Jh Leblanc DO Sign clinical note Addendum Note - Jh Leblanc DO - 11/16/2016 3:01 PM CDT Addendum created 11/16/16 1501 by Jh Leblnac DO Anesthesia Event edited, Procedure Event Log accessed Addendum Note - Jh Leblanc DO - 11/16/2016 1:13 PM CDT Addendum created 11/16/16 1313 by Jh Leblanc DO Anesthesia Event edited, Procedure Event Log accessed documented in this encounter Plan of Treatment Not on filedocumented as of this encounter Procedures Procedure Name Priority Date/Time Associated Diagnosis Comme nts ANE EPIDURAL BLOCK Routine 11/15/2016 9:06 PM CDT Procedure Note - Altaf Olea rt Ulises Valdez MD - 11/15/2016 9:06 PM CDTThis note is in progress. Formatting of this note migh t be different from the original. Peripheral nerve/Neuraxial p rocedure note : Assessment/Narrative . . . Comments: Pt seen and interviewed prior to epidural placement for labor analgesia. This epidural is to be place d in anticipation of normal vaginal delivery. Risk discussed and consent g iven prior to performance of procedure. Time out consisting of ident ification of patient and desire for epidural analgesia was confirmed. Sterile prep of lumbar spine was accomplished with povidone iodine three times. L45 interspace was identifie d. Local anesthetic infiltration with 1.5% lido with epi 1/200k was performed with 1.5 cc. 17 G Tuohy needle was advanc ed in the midline with loss of resistance technique. No CSF, blood, or paresthesias were noted with placement. Test dose of 1.5% Lidocaine with epi 1/200k, 3 cc., was injected without evidence of intrathecal or i ntravascular injection. Incremental bolus of 0.25% Bupivicaine was injected to a total volume of 15 cc. Epidural cath 19 G was advan genie through needle approx. 6 cm. No paresthesia was noted with placement and aspiration of cath was negative for blood. Catheter secured with tegaderm and tape. Epidural infusion begun after double check of pump settings. Nursing to inform if there a re any complications, but none were noted prior to leaving patient room. I, or my partners, remain im mediately available for management of any issues or complications. I, or my partners, will monitor at appropriate intervals. Cyndee Olea MD documented in this encounter Visit Diagnoses Not on filedocumented in this encounter Administered Medications Inactive Administered Medications - up to 3 most recent administrations Medication Order MAR Action Action Date Dose Rate Site bupivacaine (MARCAINE) 0.25 % Given 11/15/2016 8:55 PM CDT 15 mL s injection PRN, Starting on 11/15/16 at 2055, Anesthesia Intra-op documented in this encounter Additional Health Concerns Assessment Noted Time PHQ-9 Depression Total Score: 5 04/22/2016 7:19 AM CDT documented as of this encounter Care Teams Cpht Relationship Specialty Start Date End Date Annalisa Mark APRN [employer]ULTANT PCP - General Nurse Practitioner 03/22/15 [address] [place] [address] documented as of this encounter
--- OUTSIDE RECORDS SUMMARY | 2022-06-06 21:03 | XMS_ITS | Encounter Summary ---
:1985 Author Organization [place] Address [address] [place] [place] [address] Care Team Providers Name Role Phone DeedeeSwapna deanarnulfo Peacock APRN, CNP Primary Care Provider [phone] Encounter Details Date Type Department Care Team Description 11/18/2016 Medical Correspondence [facility] HIM Scan, [facility] Non-Provider PUMP ORDER Health Information Management-ESTEFANIA [address] [place] [address] Social History Tobacco Use Types Packs/Day Years [...] you attend pentecostalism or Patient refused 2021 roman catholic services? [...] as of this encounter Care Teams Production Inspector Relationship Specialty Start Date End Date Annalisa Mark APRN CNP PCP - General Nurse Practitioner 03/22/15 [address] [place] [address] documented as of this encounter
--- OUTSIDE RECORDS SUMMARY | 2022-06-06 21:03 | XMS_ITS | Encounter Summary ---
:1985 Author Organization [facility] Address [address] [place] [address]. [place] [address] Care Team Providers Name Role Phone Annalisa Markhele JADEN MONTALVO Primary Care Provider [phone] Reason for Visit Reason Comments Abdominal Pain Encounter Details Date Type Department Care Team Description 04/21/2017 - Emergency [facility] Scar Palmer, Upp er abdominal pain 04/22/2017 [facility] MD Dept [facility] [address] [place], [place] [address] [place] [phone] [place] [address] [place], [place] [address] (Wo rk) Social History Tobacco Use Types [...] you attend methodist or Patient refused 2021 jainism services? Do you belong to any clubs [...] Sign Reading Time Taken Comments Blood Pressure 107/74 04/22/2017 4:00 AM CDT Pulse 97 04/21/2017 10:05 PM CDT Temperature 36.7 ??C (98 ??F) 04/21/2017 10:05 PM CDT Respiratory Rate 16 04/21/2017 10:05 PM CDT Oxygen Saturation 97% 04/22/2017 3:45 AM CDT Inhaled Oxygen Concentration - - Weight 56.7 kg (125 lb) 04/21/2017 10:05 PM CDT Height 160 cm (5' 3) 04/21/2017 10:05 PM CDT Body Mass Index 22.14 04/21/2017 10:05 PM CDT documented in this encounter Discharge Instructions AttachmentsThe following attachments cannot be sent through Care Everywhere. GASTRITIS OR ULCER (NO ANTIBIOTIC TREATMENT) (CYMRAES)documented in this encounter Medications at Time of Discharge Medication Sig Dispensed Refills Start Date End Date HYDROcodone-acetaminophe Take 1-2 tablets by 8 tablet 0 04/26/2017 n (NORCO) 5-325 MG per mouth every 6 hours tablet as needed for moderate to severe pain omeprazole (PRILOSEC) 20 Take 1 capsule (20 30 capsule 0 05/22/2017 MG CR capsule mg) by mouth daily cephALEXin (KEFLEX) 500 Take 1 capsule by 14 capsule 0 01/2906/28/2019 MG capsuleIndications: mouth 2 times daily Other acute otitis for 7 days. externa Hydrocortisone Acetate Externally apply 1 g 28.4 g 1 09/23/2017 2.5 % CREAIndications: topically 3 times Allergic dermatitis due daily to other chemical product ibuprofen (ADVIL/MOTRIN) Take 1 tablet (800 60 tablet 0 11/26/2017 800 MG mg) by mouth every 8 tabletIndications: hours as needed for Vaginal delivery other (cramping) norethindrone (MICRONOR) Take 1 tablet (0.35 84 tablet 3 09/23/2017 0.35 MG per mg) by mouth daily tabletIndications: Encounter for initial prescription of contraceptive pills documented as of this encounter ED Notes Bettie Henao RN - 04/21/2017 10:04 PM CDT Pt comes in with upper abd pain After eating last night Fatty meal Pain worse with eating Nauseated 7/10 pain No diarrhea no fever or chills here for eval Scar Palmer MD - 04/21/2017 9:57 PM CDT History Chief Complaint: Abdominal Pain HPI Tameka Grissom is a 32 year old female with a history of anxiety, depression, and OCD who presents with abdominal pain. After dinner last night, the patient first noticed some midline and left-sided abdominal pain. She went to work last night and felt fine then, but this morning she came home and couldn't fall asleep due to the severity of the pain. She got up and ate some toast which caused her abdominal pain to worsen. She vomited once while in the waiting room this evening, but denies any diarrhea or fevers. The patient states her mother and grandmother both had gallbladder issues and subsequent gallbladder removals. She states she has been stressed at work lately and is worried it might be an ulcer. The patient took Ibuprofen the last few days due to a migraine, but she normally doesn't takemany pain medications. Allergies: No known drug allergies Medications: Micronor Ibuprofen Past Medical History: Allergic rhinitis, seasonal Breast disorder Generalized anxiety disorder Obsessive compulsive disorder Mild major depression Past Surgical History: History reviewed. No pertinent surgical history. Family History: Arthritis Lipids Alcohol/drug Social History: Smoking status: No Alcohol use: Yes, occasional Marital Status: Single [1] Review of Systems Constitutional: Negative for chills and fever. Respiratory: Negative for cough and shortness of breath. Cardiovascular: Negative for chest pain. Gastrointestinal: Positive for abdominal pain and vomiting. Negative for diarrhea. All other systems reviewed and are negative. Physical Exam Patient Vitals for the past 24 hrs: BP Temp Temp src Pulse Resp SpO2 Height Weight 04/22/17 0233 102/71 - - - - - - - 04/22/17 0200 113/78 - - - - 97 % - - 04/22/17 0130 114/83 - - - - 98 % - - 04/22/17 0100 110/79 - - - - 97 % - - 04/22/17 0030 112/80 - - - - - - - 04/21/17 2325 104/73 - - - - - - - 04/21/17 2205 124/83 98 ??F (36.7 ??C) Oral 97 16 98 % 1.6 m (5' 3) 56.7 kg (125 lb) Physical Exam Vital signs and nursing notes reviewed. Constitutional: laying on gurney appears moderately uncomfortable HENT: Oropharynx is clear and moist Eyes: Conjunctivae are normal bilaterally. Pupils equal Neck: normal range of motion Cardiovascular: Normal rate, regular rhythm, normal heart sounds. Pulmonary/Chest: Effort normal and breath sounds normal. No respiratory distress. Abdominal: Soft. Bowel sounds are normal. Mod. tenderness epigastric region to mid abdominal, LUQ area to palpation. No rebound or guarding. No lower abdominal pain. Musculoskeletal: No joint swelling or edema. Neurological: Alert and oriented. No focal weakness Skin: Skin is warm and dry. No rash noted. Psych: normal affect Emergency Department Course Imaging: Radiographic findings were communicated with the patient who voiced understanding of the findings. US Abdomen Limited: Normal right upper quadrant. No gallstone or biliary dilatation. As read by Radiology. CT Abdomen Pelvis w Contrast: 1. The urinary bladder is very distended but otherwise appears normal. 2. Small amount of free fluid in the pelvis is within physiologic limits. 3. No bowel obstruction or inflammation. As read by Radiology. Laboratory: UA: Mucous present, o/w negative HCG: Negative CBC: WNL (WBC 6.3, HGB 13.0, PLT 175) CMP: WNL (Creatinine 0.79) Lipase: 202 Interventions: 2224: 4 mg Zofran 0019: GI Cocktail - Maalox 15 mL, Viscous Lidocaine 15 mL, 30 mL suspension PO 0024: 30 mg Toradol Emergency Department Course: Past medical records, nursing notes, and vitals reviewed. 0008: I performed an exam of the patient and obtained history, as documented above. IV inserted and blood drawn. The patient was sent for an abdominal ultrasound and an abdomen/pelvis CT while in the emergency department, findings above. 0233: I rechecked the patient. Explained findings to the patient. I rechecked the patient. Findings and plan explained to the patient. Patient discharged home with instructions regarding supportive care, medications, and reasons to return. The importance of close follow-up was reviewed. Impression & Plan Medical Decision Making: Tameka Grissom is a pleasant 32 year old female who presented with upper abdominal pain. On initial examination she had fairly localized tenderness to the epigastric to left upper quadrant area. There was vague discomfort in the right upper abdomen as well, so I initially evaluated her with lab tests and ultrasound of the right upper quadrant, which was unremarkable. At recheck, she still had quite a bit of discomfort more in the mid-abdomen as well as the left upper quadrant, so I discussed with herthe possibility of doing a CT scan to further rule out other potential surgical or dangerous causes of pain, and this thankfully was negative. I anticipate that she has a likely gastritis or a peptic ulcer causing her symptoms as it was worse with eating tonight. I recommended avoiding anti-inflammatories, staying on a soft diet, avoiding acidic or spicy foods. She will start on Omeprazole and a prescription for pain medications if needed. She is to follow-up with her primary care physician in the next 48 hours to recheck. If her symptoms do not improve, she may need an upper endoscopy for further evaluation. The patient understands the plan and was discharged home. Diagnosis: ICD-10-CM 1. Upper abdominal pain R10.10 Disposition: Discharged to home Discharge Medications: New Prescriptions HYDROCODONE-ACETAMINOPHEN (NORCO) 5-325 MG PER TABLET Take 1-2 tablets by mouth every 6 hours as needed for moderate to severe pain OMEPRAZOLE (PRILOSEC) 20 MG CR CAPSULE Take 1 capsule (20 mg) by mouth daily Renuka Demarco 04/21/2017 [facility] EMERGENCY DEPARTMENT IRenuka, am serving as a scribe at 12:08 AM on 04/22/2017 to document services personally performed by Scar Palmer MD based on my observations and the provider's statements to me. Scar Palmer MD 04/22/17 0614 documented in this encounter Plan of Treatment Not on filedocumented as of this encounter Procedures Procedure Name Priority Date/Time Associated Comments Diagnosis CT ABDOMEN PELVIS W STAT 04/22/2017 3:16 AM Re sults for this CONTRAST CDT procedure are i n the results section. US ABDOMEN LIMITED STAT 04/22/2017 2:20 AM Res ults for this CDT procedure are i n the results section. HCG QUALITATIVE URINE STAT 04/21/2017 11:20 Re sults for this PM CDT procedure are i n the results section. ROUTINE UA WITH STAT 04/21/2017 11:20 Results for this MICROSCOPIC PM CDT procedure are i n the results section. CBC WITH PLATELETS & STAT 04/21/2017 10:13 Res ults for this DIFFERENTIAL PM CDT procedure are i n the results section. LIPASE STAT 04/21/2017 10:13 Results for this PM CDT procedure are i n the results section. COMPREHENSIVE STAT 04/21/2017 10:13 Results fo r this METABOLIC PANEL PM CDT procedure ar e in the results section. documented in this encounter Results CT Abdomen Pelvis w Contrast (04/22/2017 3:16 AM CDT) Anatomical Region Laterality Modality Abdomen/Pelvis, SUBRAD CT BODY, UMP CT ABDOMEN PELVIS Computed Tomography Specimen (Source) Anatomical Location Collection Method / Collectio n Time Received Time / Laterality Volume Impressions 04/22/2017 11:10 PM CDT IMPRESSION: 1. The urinary bladder is very distended but otherwise appears normal. 2. Small amount of free fluid in the pel vis is within physiologic limits. 3. No bowel obstruction or inflammation. CHAR ZAVALA MD Narrative 04/22/2017 11:[address] ABDOMEN PELVIS W CONTRAST ??04/22/2017 3:16 AM ?? HISTORY: Left-sided abdominal pain. TECHNIQUE: CT abdomen and pelvis with in travenous contrast. Radiation dose for this scan was reduced using aut omated exposure control, adjustment of the mA and/or kV according to patient size, or iterative reconstruction technique. 63 mL Isovue-3 70. COMPARISON: None. FINDINGS: Abdomen: The lung bases are unremarkable . The heart size is normal. The liver, spleen, gallbladder, pancreas , adrenal glands and kidneys are normal in appearance. There is no ab dominal or pelvic lymph node enlargement. Pelvis: Bowel appears normal without obs truction or inflammation. The appendix is seen in part and is within n ormal limits. The urinary bladder is very distended but otherwise appears normal. The uterus and adnexa appear normal. Small amount of fr ee fluid in the pelvis is within physiologic limits. No free intra peritoneal gas. Procedure Note Char Zavala MD - 04/22/2017Form atting of this note might be different from the original. CT ABDOMEN PELVIS W CONTRAST 04/22/2017 3 :16 AM HISTORY: Left-sided abdominal pain. TECHNIQUE: CT abdomen and pelvis with in travenous contrast. Radiation dose for this scan was reduced using aut omated exposure control, adjustment of the mA and/or kV according to patient size, or iterative reconstruction technique. 63 mL Isovue-3 70. COMPARISON: None. FINDINGS: Abdomen: The lung bases are unremarkable . The heart size is normal. The liver, spleen, gallbladder, pancreas , adrenal glands and kidneys are normal in appearance. There is no ab dominal or pelvic lymph node enlargement. Pelvis: Bowel appears normal without obs truction or inflammation. The appendix is seen in part and is within n ormal limits. The urinary bladder is very distended but otherwise appears normal. The uterus and adnexa appear normal. Small amount of fr ee fluid in the pelvis is within physiologic limits. No free intra peritoneal gas. IMPRESSION: 1. The urinary bladder is very distended but otherwise appears normal. 2. Small amount of free fluid in the pel vis is within physiologic limits. 3. No bowel obstruction or inflammation. CHAR ZAVALA MD Scar Palmer MD IMG CT ORDERABLES US Abdomen Limited (04/22/2017 2:20 AM CDT) Anatomical Region Laterality Modality Abdomen/Pelvis Ultrasound Specimen (Source) Anatomical Location Collection Method / Collectio n Time Received Time / Laterality Volume Impressions 04/22/2017 2:24 AM CDT IMPRESSION: Normal right upper quadrant. No gallston e or biliary dilatation. CHAR ZAVALA MD Narrative 04/22/2017 2:24 AM CDT US ABDOMEN LIMITED ??04/22/2017 2:20 AM ?? HISTORY: Abdominal pain. COMPARISON: None. FINDINGS: The liver is normal in size an d texture without focal mass. There is no intra or extrahepatic biliar y dilatation. The common hepatic duct measures 0.3 cm. ??The gall bladder is normal in appearance without gallstones. ??The pancreas head and body appear normal. The tail is obscured by bowel gas. ??The rig ht kidney measures 11.0 cm and is normal in appearance. The proximal ab dominal aorta and IVC appear normal. Procedure Note Char Zavala MD - 04/22/2017Form atting of this note might be different from the original. US ABDOMEN LIMITED 04/22/2017 2:20 AM HISTORY: Abdominal pain. COMPARISON: None. FINDINGS: The liver is normal in size an d texture without focal mass. There is no intra or extrahepatic biliar y dilatation. The common hepatic duct measures 0.3 cm. The gallbl adder is normal in appearance without gallstones. The pancreas head an d body appear normal. The tail is obscured by bowel gas. The right kidney measures 11.0 cm and is normal in appearance. The proximal ab dominal aorta and IVC appear normal. IMPRESSION: Normal right upper quadrant. No gallston e or biliary dilatation. CHAR ZAVALA MD Scar Palmer MD IM US ORDERABLES HCG qualitative urine (04/21/2017 11:20 PM CDT) athologist Signature HCG Qual Urine Negative NEG^Negati 04/22/2017 [place] ve 12:44 AM [facility] Comment: This test is for screening purposes. ??R esults should be interpreted along with the clinical picture. ??Confirmation te sting is available if warranted by ordering [id number], HCG Quantitative Pregna ncy. Specimen Anatomical Collection Method Collection Time Receive d Time (Source) Location / / Volume Laterality Urine specimen URINE SPECIMEN 04/21/2017 11:20 017 (specimen) OBTAINED BY CLEAN PM CDT 12:28 AM C DT CATCH PROCEDURE / Unknown Scar Palmer MD LAB - URINE ORDERABLES Performing Organization Address City/State/ZIP Code Phon e Number M [facility] [address] [address] [facility] [address] [phone] (ABNORMAL) UA with Microscopic (04/21/2017 11:20 PM CDT) [facility] gist Method Time Signature Color Urine Straw 04/22/2017 [place] 12:46 AM [facility] Appearance Urine Clear 04/22/2017 [place] 12:46 AM [facility] Glucose Urine Negative NEG^Negat 04/22/2017 [place] liudmila mg/dL 12:46 AM [facility] Bilirubin Urine Negative NEG^Negat 04/22/2017 [facility] liudmila 12:46 AM [facility] Ketones Urine Negative NEG^Negat 04/22/2017 [place] liudmila mg/dL 12:46 AM [facility] Specific [place] 1.006 1.003 - 04/22/2017 [place] Urine 1.035 12:46 AM [facility] Blood Urine Negative NEG^Negat 04/22/2017 [facility] liudmila 12:46 AM [facility] pH Urine 5.0 5.0 - 7.0 04/22/2017 [place] pH 12:46 AM [facility] Protein Albumin Negative NEG^Negat 04/22/2017 [place] Urine liudmila mg/dL 12:46 AM [facility] Urobilinogen 0.0 0.0 - 2.0 04/22/2017 [facility] mg/dL mg/dL 12:46 AM [facility] Nitrite Urine Negative NEG^Negat 04/22/2017 [facility] liudmila 12:46 AM [facility] Leukocyte Negative NEG^Negat 04/22/2017 [place] Esterase Urine liudmila 12:46 AM [facility] Source Midstream 04/22/2017 [place] Urine 12:29 AM [facility] WBC Urine 1 0 - 2 04/22/2017 [facility] /HPF 12:46 AM [facility] RBC Urine 0 0 - 2 04/22/2017 [facility] /HPF 12:46 AM [facility] Mucous Urine Present (A) NEG^Negat 04/22/2017 [place] liudmila /LPF 12:46 AM [facility] Specimen (Source) Anatomical Collection Method Collection Time Re ceived Time Location / / Volume Laterality Examination of URINE SPECIMEN 04/21/2017 11:20 017 midstream urine OBTAINED BY CLEAN CDT 12:28 A M [facility] specimen CATCH PROCEDURE / (procedure) Unknown Scar Palmer MD LAB - URINE ORDERABLES Performing Organization Address City/State/ZIP Code Phon e Number M [place] [address] [place], [place] [address] [facility] [address] [place], [place] [address], [facility] [phone] Lipase (04/21/2017 10:13 PM CDT) athologist Signature Lipase 202 73 - 393 04/21/2017 [facility] U/L 11:34 PM CDT HOSPITAL Specimen Anatomical Collection Method Collection Time Receive d Time (Source) Location / / Volume Laterality Blood specimen 04/21/2017 10:13 7 (specimen) PM CDT 10:36 PM CDT Jessica Kurtz MD LAB - BLOOD ORDERABLES Performing Organization Address City/State/ZIP Code Phon e Number M [place] [address] [address] [place], [place] [address] [facility] [address] [place], [place] [address], [facility] [phone] Comprehensive metabolic panel (04/21/2017 10:13 PM CDT) athologist Signature Sodium 137 133 - 144 04/21/2017 [facility] mmol/L 11:34 PM CDT HOSPITAL Potassium 3.8 3.4 - 5.3 04/21/2017 [facility] mmol/L 11:34 PM CDT HOSPITAL Comment: Specimen slightly hemolyzed, po tassium may be falsely elevated Chloride 106 94 - 109 mmol/L 04/21/2017 11:34 PM CDT [facility] Carbon Dioxide 26 20 - 32 mmol/L 04/21/2017 11:34 PM CDT [facility] Anion Gap 5 3 - 14 mmol/L 04/21/2017 11:34 PM CDT [facility] Glucose 91 70 - 99 mg/dL 04/21/2017 11:34 PM CDT [facility] Urea Nitrogen 12 7 - 30 mg/dL 04/21/2017 11:34 PM CDT [facility] Creatinine 0.79 0.52 - 1.04 mg/dL 04/21/2017 11:34 PM C DT [facility] GFR Estimate 84 >60 mL/min/1.7m2 04/21/2017 11:34 PM CDT [facility] Comment: Non GFR Calc GFR Estimate If >90 >60 mL/min/1.7m2 04/21/2017 11:34 PM [facility] Comment: GFR Calc Calcium 9.0 8.5 - 10.1 mg/dL 04/21/2017 11:34 PM [facility] Bilirubin Total 0.4 0.2 - 1.3 mg/dL 04/21/2017 11:34 P [facility] Albumin 4.0 3.4 - 5.0 g/dL 04/21/2017 11:34 PM [facility] Protein Total 7.3 6.8 - 8.8 g/dL 04/21/2017 11:34 PM [facility] Alkaline Phosphatase 91 40 - 150 U/L 04/21/2017 11:34 PM [facility] ALT 32 0 - 50 U/L 04/21/2017 11:34 PM [facility] AST 27 0 - 45 U/L 04/21/2017 11:34 PM [facility] Comment: Specimen is hemolyzed which can falsely elevate AST. Analysis of a non-hemolyzed specimen may result in a l ower value. Specimen Anatomical Collection Method Collection Time Receive d Time (Source) Location / / Volume Laterality Blood specimen 04/21/2017 10:13 7 (specimen) PM CDT 10:36 PM CDT Jessica Kurtz MD LAB - BLOOD ORDERABLES Performing Organization Address City/State/ZIP Code Phon e Number M [place] [address] [address] [place] [address] [phone] CBC with platelets differential (04/21/2017 10:13 PM CDT) [facility] Method Time Signature WBC 6.3 4.0 - 04/21/2017 [place] 11.0 10:[address] [facility] 10e9/L [facility] RBC Count 4.18 3.8 - 5.2 04/21/2017 [facility] 10e12/L 10:40 PM [facility] Hemoglobin 13.0 11.7 - 04/21/2017 [facility] 15.7 g/dL 10:40 PM [facility] Hematocrit 39.2 35.0 - 04/21/2017 [facility] 47.0 % 10:40 PM [facility] MCV 94 78 - 100 04/21/2017 [facility] fl 10:40 PM [facility] MCH 31.1 26.5 - 04/21/2017 [facility] 33.0 pg 10:40 PM [facility] MCHC 33.2 31.5 - 04/21/2017 [facility] 36.5 g/dL 10:40 PM [facility] RDW 12.2 10.0 - 04/21/2017 [facility] 15.0 % 10:40 PM [facility] Platelet Count 175 150 - 450 04/21/2017 [facility] 10e9/L 10:40 PM [facility] Diff Method Automated 04/21/2017 [facility] Method 10:40 PM [facility] % Neutrophils 71.0 % 04/21/2017 [facility] 10:40 PM [facility] % Lymphocytes 21.3 % 04/21/2017 [facility] 10:40 PM [facility] % Monocytes 4.5 % 04/21/2017 [facility] 10:40 PM [facility] % Eosinophils 2.7 % 04/21/2017 [facility] 10:40 PM [facility] % Basophils 0.2 % 04/21/2017 [facility] 10:40 [facility] % Immature 0.3 % 04/21/2017 [facility] Granulocytes 10:40 PM [facility] Nucleated RBCs 0 0 /100 04/21/2017 [facility] 10:40 PM [facility] Absolute 4.5 1.6 - 8.3 04/21/2017 [facility] Neutrophil 10e9/L 10:40 PM [facility] Absolute 1.3 0.8 - 5.3 04/21/2017 [facility] Lymphocytes 10e9/L 10:40 PM [facility] Absolute 0.3 0.0 - 1.3 04/21/2017 [facility] Monocytes 10e9/L 10:40 PM [facility] Absolute 0.2 0.0 - 0.7 04/21/2017 [facility] Eosinophils 10e9/L 10:40 PM [facility] Absolute 0.0 0.0 - 0.2 04/21/2017 [place] Basophils 10e9/L 10:40 PM [facility] Abs Immature 0.0 0 - 0.4 04/21/2017 [place] Granulocytes 10e9/L 10:40 PM [facility] Absolute 0.0 04/21/2017 [place] Nucleated RBC 10:40 PM [facility] Specimen Anatomical Collection Method Collection Time Receive d Time (Source) Location / / Volume Laterality Blood specimen 04/21/2017 10:13 7 (specimen) PM CDT 10:36 PM CDT Jessica Kurtz MD LAB - BLOOD ORDERABLES Performing Organization Address City/State/ZIP Code Phon e Number [place] [address] [address] [place] [address] [phone] documented in this encounter Visit Diagnoses Diagnosis Upper abdominal pain Abdominal pain, other specified site documented in this encounter Administered Medications Inactive Administered Medications - up to 3 most recent administrations Medication Order MAR Action Action Date Dose Rate Site 0.9% sodium chloride BOLUS New Bag 04/22/2017 3:11 AM CDT 56 mLs Intravenous, 1,000 mL, ONCE, On Thu04/22/17 at 0303, For 1 dose iopamidol (ISOVUE-370) solution 500 mL Given 04/22/2017 3:11 AM CDT 63 mLs 500 mL, Intravenous, ONCE, On Thu04/22/17 at 0303, For 1 dose ketorolac (TORADOL) injection 30 mg Given 04/22/2017 12:24 AM CDT 30 mg 30 mg, Intravenous, ONCE, On Thu04/22/17 at 0013, For 1 dose lidocaine (viscous) (XYLOCAINE) 2 % 15 mL, Given 04/22/2017 12:19 AM CDT 30 mLs alum & mag hydroxide-simethicone (MYLANTA ES/MAALOX ES) 15 mL GI Cocktail 30 mL, Oral, ONCE, On Thu04/22/17 at 0013, For 1 dose ondansetron (ZOFRAN) injection 4 mg Given 04/21/2017 10:24 PM CDT 4 mg 4 mg, Intravenous, EVERY 30 MIN PRN, nausea, vomiting, Administer over 2-5 Minutes, Starting on Thu04/21/17 at 2214, For 3 doses, May repeat in 30 minutes as needed, up to 3 doses. Irritant. documented in this encounter Active and Recently Administered Medications Times are shown in CDT. Scheduled Medication Order 04/20/2017 04/21/2017 04/22/2017 0.9% sodium chloride BOLUS (COMPLETED) 310 (New Bag - Provider: Anca Rock - Comment: bulk)311 (Stopped - Provider: Anca Rock) Intravenous, 1,000 mL, ONCE, Thu04/22/17 at 0303, For 1 dose iopamidol (ISOVUE-370) solution 500 mL (COMPLETED) 310 (Given - Provider: Anca Rock - Comment: bulk) 500 mL, Intravenous, ONCE, Thu04/22/17 at 0303, For 1 dose ketorolac (TORADOL) injection 30 mg (COMPLETED) 23 (Given - Provider: Concepcion Laughlin RN) 30 mg, Intravenous, ONCE, Thu04/22/17 at 0013, For 1 dose lidocaine (viscous) (XYLOCAINE) 2 % 15 m L, alum & mag hydroxide-simethicone (MYLANTA ES/MAALOX ES) 15 mL GI Cocktail (COMPLETED) 18 (Given - Provider: Rica Oteor) 30 mL, Oral, ONCE, Thu04/22/17 at 0013, For 1 dose PRN Medication Order 04/20/2017 04/21/2017 04/22/2017 ondansetron (ZOFRAN) injection 4 mg 4 (Given - Provider: Bettie Henao, CHRIST) 4 mg, Intravenous, EVERY 30 MIN PRN, garrett sea, vomiting, Administer over 2-5 Minutes, Starting Thu04/21/17 at 2214, For 3 doses, May repeat in 30 minutes as needed, up to 3 doses. Irritant. documented in this encounter Additional Health Concerns Assessment Noted Time PHQ-9 Depression Total Score: 0 12/30/2016 7:26 AM CDT documented as of this encounter Care Teams Wastewater Treatment Supervisor Relationship Specialty Start Date End Date Annalisa Mark APRN PREFABRICATED HOUSES TRIMMER PCP - General Nurse Practitioner 03/22/15 [address] [place] [address] documented as of this encounter
--- OUTSIDE RECORDS SUMMARY | 2022-06-06 21:03 | XMS_ITS | Encounter Summary ---
:1985 Author Organization [facility] Address [address] [place] [address]. [place] [address] Care Team Providers Name Role Phone DeedeeSwapna deanarnulfo Peacock APRN, CNP Primary Care Provider [phone] Reason for Visit Reason Comments Care Encounter Details Date Type Department Care Team Description 10/22/2016 Office [facility] Pete Martin, unspecified type (Primary Dx); Visit [facility] MD Alexandre care , first , third trimester [address] [place] [address] Social History Tobacco Use Types [...] you attend worship or Patient refused 2021 quaker services? Do [...] Sign Reading Time Taken Comments Blood Pressure 112/64 10/22/2016 4:09 PM CDT Pulse - - Temperature 36.9 ??C (98.5 ??F) 10/22/2016 4:09 PM CDT Respiratory Rate - - Oxygen Saturation - - Inhaled Oxygen Concentration - - Weight 68 kg (149 lb 14.4 oz) 10/22/2016 4:09 PM CDT Height - - Body Mass Index 26.55 09/03/2016 9:37 PM QUALITY CONTROL ENGINEERING TECHNICIAN documented in this encounter Progress Notes Pete Martin - 10/22/2016 3:45 PM CDT Description: Time to fall asleep (sleep latency): hours Middle of night awakening: no sat math tutor awakening: no Progression of Symptoms: worsening Accompanying Signs & Symptoms: Daytime sleepiness/napping: no Excessive snoring/apnea: no Restless legs: no Frequent urination: no Chronic pain: no History: Prior Insomnia: no Precipitating factors: New stressful situation: Caffeine intake: no OTC decongestants: no Any new medications: no Alleviating factors: Self medicating (alcohol, etc.): no Therapies Tried and outcome: none Will start Ambien 5 mg as needed q h.s. documented in this encounter Nursing Notes Marce Bazzi CMA - 10/22/2016 3:45 PM CDT Chief Complaint Patient presents with ??? Care 37w3d Marce Bazzi MA Initial BP 112/64 (BP Location: Left arm, Patient Position: Chair, Cuff Size: Adult Regular) Temp 98.5 ??F (36.9 ??C) (Oral) Wt 149 lb 14.4 oz (68 kg) LMP 01/27/2016 BMI 26.55 kg/m2 Estimated body mass index is 26.55 kg/(m^2) as calculated from the following: Height as of 09/03/17: 5' 3 (1.6 m). Weight as of this encounter: 149 lb 14.4 oz (68 kg). Medication Reconciliation: complete documented in this encounter Plan of Treatment Not on filedocumented as of this encounter Visit Diagnoses Diagnosis Insomnia, unspecified type - Primary care, first , third tr imester documented in this encounter Additional Health Concerns Assessment Noted Time PHQ-9 Depression Total Score: 5 04/22/2016 7:19 AM CDT documented as of this encounter Care Teams Machine Coremaker Relationship Specialty Start Date End Date Annalisa Mark APRN HEALTHCARE EDUCATOR PCP - General Nurse Practitioner 03/22/15 [address] [place] [address] documented as of this encounter
--- OUTSIDE RECORDS SUMMARY | 2022-06-06 21:04 | XMS_ITS | Encounter Summary ---
:1985 Author Organization [facility] Address [address] [place] [address]. [place] [address] Care Team Providers Name Role Phone DeedeeAnnalisa dean Madonna STANLEY CNP Primary Care Provider [phone] Encounter Details Date Type Department Care Team Description 03/04/2016 Orders Only [facility] Martin, Pete related Maternal MD Alexandre condition, un specified Medicine Center trimester (P rimary Dx) [place] [address] [facility] [address] [place] [address] Social History Tobacco Use Types [...] you attend samaritan or Patient refused 2021 hoahaoism services? Do [...] as of this encounter Visit Diagnoses Diagnosis related condition, unspecified trimester - Primary documented in this encounter Additional Health Concerns Assessment Noted Time PHQ-9 Depression Total Score: 8 09/26/2015 8:00 AM RAIL SPLITTER documented as of this encounter Care Teams Software Intern Relationship Specialty Start Date End Date Annalisa Mark APRN WRAPPER HAND PCP - General Nurse Practitioner 03/22/15 [address] [place] [address] documented as of this encounter
--- OUTSIDE RECORDS SUMMARY | 2022-06-06 21:04 | XMS_ITS | Encounter Summary ---
:1985 Author Organization [facility] Address [facility] [place] [address] Care Team Providers Name Role Phone DeedeeAnnalisa dean Madonna STANLEY CNP Primary Care Provider [phone] Reason for Visit Reason Comments Care Encounter Details Date Type Department Care Team Description 08/18/2016 Office [facility] Pete Martin care, first Visit [facility] MD Alexandre , se cond [place] trimester (Primary [address]) [address] [place] [address] Social History Tobacco Use Types Packs/Day Years [...] or relatives? How often do you attend confucianism or Patient refused 2021 rastafarian services? Do you belong to any clubs or No 10/17/2021 organizations such as confucianism groups, unions, fraternal or athletic groups, or [...] Reading Time Taken Comments Blood Pressure 108/68 08/18/2016 3:41 PM WINDOW CLEANER Pulse - - Temperature 36.4 ??C (97.5 ??F) 08/18/2016 3:41 PM WINDOW CLEANER Respiratory Rate - - Oxygen Saturation - - Inhaled Oxygen Concentration - - Weight 61.6 kg (135 lb 12.8 oz) 08/18/2016 3:41 PM WINDOW CLEANER Height - - Body Mass Index 24.06 04/11/2016 2:07 PM CDT documented in this encounter Progress Notes Pete Martin - 08/18/2016 4:18 PM CST Doing well. OW CLEANER documented in this encounter Nursing Notes Marce Bazzi CMA - 08/18/2016 3:43 PM CST Chief Complaint Patient presents with ??? Care 28w1d Marce Bazzi MA Initial BP 108/68 mmHg Temp(Src) 97.5 ??F (36.4 ??C) (Oral) Wt 135 lb 12.8 oz (61.598 kg) LMP 01/27/2016 Estimated body mass index is 24.06 kg/(m^2) as calculated from the following: Height as of 16: 5' 3 (1.6 m). Weight as of this encounter: 135 lb 12.8 oz (61.598 kg). BP completed using cuff size: regular OW CLEANER documented in this encounter Plan of Treatment Not on filedocumented as of this encounter Visit Diagnoses Diagnosis care, first , second t rimester - Primary documented in this encounter Additional Health Concerns Assessment Noted Time PHQ-9 Depression Total Score: 5 04/22/2016 7:19 AM CDT documented as of this encounter Care Teams Jar Capper Relationship Specialty Start Date End Date Annalisa Mark APRN LEVER TENDER PCP - General Nurse Practitioner 03/22/15 [address] [place] [address] documented as of this encounter
--- OUTSIDE RECORDS SUMMARY | 2022-06-06 21:04 | XMS_ITS | Encounter Summary ---
:1985 Author Organization [facility] Address [address] [place] [address]. [place] [address] Care Team Providers Name Role Phone Deedee Annalisaarnulfo Peaocck APRN, CNP Primary Care Provider [phone] Reason for Visit Reason Comments Care Encounter Details Date Type Department Care Team Description 05/12/2016 Office [facility] Kash Baker care, first Visit [facility] MD Prudencio , [place] [address] unspecified trimester [address] MARY (Primary Dx) [place] [address] [place] [address] [phone] Social History Tobacco Use Types Packs/Day Years [...] you attend orthodoxy or Patient refused 2021 druze services? Do you belong to any clubs [...] Reading Time Taken Comments Blood Pressure 108/60 05/12/2016 4:11 PM CDT Pulse - - Temperature 36.7 ??C (98.1 ??F) 05/12/2016 4:11 PM CDT Respiratory Rate - - Oxygen Saturation - - Inhaled Oxygen Concentration - - Weight 56.5 kg (124 lb 8 oz) 05/12/2016 4:11 PM CDT Height - - Body Mass Index 22.05 04/11/2016 2:07 PM CDT documented in this encounter Patient Instructions Patient InstructionsDona Sal - 05/12/2016 4:35 PM CDT You can reach your [facility] Care Team any time of the day by calling [phone]. This number will put you in touch with the 24 hour nurse line if the clinic is closed. To contact your REHAB CONSULTANT Station Coordinator/Bore Mill Operator For Plastic please call [phone]. This is a direct number for your care team between 8 a.m. and 4 p.m. Thursday through Thursday. [facility] is open for your convenience: Thursday through Thursday 8 a.m. to 6 p.m. Closed weekends and all major holidays. Follow up in 4 weeks for appointment. I will order an Ultrasound at this time. documented in this encounter Progress Notes Prudencio Baker MD - 05/12/2016 4:06 PM CDT Tameka Grissom is a 31 year old female Estimated Delivery date: January 26, 2017 at 14w1d who presents for a visit. She reports that she does not have any morning sickness. The patient notes that the baby's father is not very involved. She denies bleeding or leaking. AGA doing well, good FM no concerns testing including the Verify screen, the 1st trimester screen, the quad test, the AFP test, the modified sequential test, cystic fibrosis screening and Ultrasound and the time frames for eachof these were reviewed. The patient notes that she did have an ear infection a few weeks ago and was given gentamycin drops. This document serves as a record of the services and decisions personally performed and made by Prudencio Baker M.D. It was created on his behalf by Dona Sal, a trained medical and health services manager. The creationof this document is based the provider's statements to the medical and health services manager. Dona Sal May 12, 2016 4:06 PM A: doing well. The patient would like to have the US and will discuss the 2nd trimester screening coverage with her insurance P: Follow up in 4 weeks for check. Will order OB US at this time. The information in this document, created by the medical and health services manager for me, accurately reflects the services I personally performed and the decisions made by me. I have reviewed and approved this document for accuracy prior to leaving the patient care area. 05/12/2016 4:06 PM Prudencio Baker M.D. documented in this encounter Nursing Notes Marce Bazzi CMA - 05/12/2016 4:12 PM CDT Chief Complaint Patient presents with ??? Care 14w1d Marce Bazzi MA Initial BP 108/60 mmHg Temp(Src) 98.1 ??F (36.7 ??C) (Oral) Wt 124 lb 8 oz (56.473 kg) LMP 09/03/2015 (Exact Date) Estimated body mass index is 22.06 kg/(m^2) as calculated from the following: Height as of 04/11/16: 5' 3 (1.6 m). Weight as of this encounter: 124 lb 8 oz (56.473 kg). BP completed using cuff size: regular documented in this encounter Plan of Treatment Not on filedocumented as of this encounter Results (ABNORMAL) US OB > 14 Weeks Complete Single (06/18/2016 4:09 PM VEHICLE DYNAMICS ENGINEER) Anatomical Region Laterality Modality Abdomen/Pelvis Ultrasound Specimen (Source) Anatomical Location Collection Method / Collectio n Time Received Time / Laterality Volume Narrative 06/19/2016 9:33 PM VEHICLE DYNAMICS ENGINEER ULTRASOUND - COMPLETE OB (18+) [facility] [address] [place] [address] Referring Provider: Pete Martin MD Clinic: [facility] INDICATIONS FOR ULTRASOUND: OB History: Present Conditions: Initial Survey (18-26 weeks) CLINICAL INFORMATION LMP: unsure EDC: Nov 10 EGA: 19 wks 3d Previous US: Yes Location: [place] EDC: Nov 10 revised correspond MEASUREMENTS BPD: 4.80cm MA: 20w4d ? Cer: 2.16cm MA:20w3d HC: 17.27cm MA: 19w6d ? AC: 15.38cm MA:20w4d FL:3.29cm MA: 20w2d ? Hum: 3.2 6cm MA:21w0d FL/AC:21 % FL/BPD:69% HC/AC:1.12 CI:81% FHR:139bpm-reg ?JAMIR: wnl EDC: Nov 10 ? EGA:20wks 3d corres pond EFW:350g SURVEY Type: [place] ? Presentation: Vari able Placenta location: posterior and mid ? Grade: 0 4ChHrt: wnl ?Outflow tract:wnl ?Arches: wnl Umb cord: 3v ? Insertion: wnl ? Abdomen: wnl Nuch/Neck: wnl ?Spine: wnl ? Diaphragm: wnl Stomach: wnl ?Kidneys: wnl ? Bladder: wnl Head: wnl ?Ventricles: noted ? Cerebellum: wnl Profile: wnl ?Face: wnl ? Lips: wnl Arms: wnl ? Legs: wnl ?Hands: wnl ?Feet: wnl Gender: male Maternal Adnexa: NA *Other Findings: anechoic areas noted in choroid plexus Right 0.6 x 0.5 cm Left 0.9 x 0.6 cm Complete transabdominal obstetric ultras ound. ?? Bilateral choroid plexus cysts noted. ? Remainder of gross survey within normal limits. Recommend further evaluation by comprehe nsive scan. Corresponding sonographic and menstrual EGA and EDC. Alecia Marks M.D. Prudencio Baker MD IMG US ORDERABLES documented in this encounter Visit Diagnoses Diagnosis care, first , unspecif ied trimester - Primary Abnormal ultrasound - Primary Abnormal findings on screening care, first , unspecif ied trimester documented in this encounter Additional Health Concerns Assessment Noted Time PHQ-9 Depression Total Score: 5 04/22/2016 7:19 AM CDT documented as of this encounter Care Teams Rn Neonatal Icu Relationship Specialty Start Date End Date Annalisa Mark APRN BLOW MOLD OPERATOR PCP - General Nurse Practitioner 03/22/15 [address] [place] [address] documented as of this encounter
--- OUTSIDE RECORDS SUMMARY | 2022-06-06 21:04 | XMS_ITS | Encounter Summary ---
:1985 Author Organization [facility] Address Counts include 234 beds at the [facility] [place] [address] Care Team Providers Name Role Phone DeedeeAnnalisa dean Madonna STANLEY CNP Primary Care Provider [phone] Encounter Details Date Type Department Care Team Description 03/17/2016 Orders Only [facility] Pete Martin test positive [facility] MD Alexandre (Primary Dx) [place] [address] [place] [id number] Social History Tobacco Use Types Packs/Day Years [...] you attend pentecostal or Patient refused 2021 faith services? Do you belong to any clubs [...] slept in a care home (including now)? Sex Assigned at Date Recorded Female 03/25/2021 2:01 PM CDT documented as of this encounter Plan of Treatment Not on filedocumented as of this encounter Results (ABNORMAL) US OB <14 Weeks w Transvaginal Single (03/21/2016 3:42 PM CDT) Anatomical Region Laterality Modality Abdomen/Pelvis Ultrasound Specimen (Source) Anatomical Location Collection Method / Collectio n Time Received Time / Laterality Volume Narrative 03/23/2016 1:58 PM CDT ULTRASOUND - EARLY OB (0-11 WEEKS) [facility] [address] [address] Tel[address] Referring Provider: Pete Martin MD Clinic: [facility] INDICATIONS FOR ULTRASOUND: OB History: 1st trimester loss (miscarri age) Present Conditions: Confirm IUP slow hea rtrate CLINICAL INFORMATION LMP: Feb 08 - sure EDC: Nov 10 EGA : 7 wks 5d MEASUREMENTS Gest Sac: vis 2.6 x 1.6 x 3.3 cm Position:nl Contour:smth/reg Yolk sac: 3.6 mm wnl CRL: 0.77 cm. EGA: 6w 5d U/S EDC: Nov 10 borderline Cardiac Activity:Yes FHR: 142 bpm reg Rt Ov L: 2.5 x 2.6 x 2.2cm Complex cyst 2.0 x 1.5 x 2.0 cm Lt Ov L: 1.9 x 1.2 x 1.1 cm Wnl Cul de sac: no free fluid *Other Findings: Early obstetric transabdominal and trans vaginal ultrasound. Living intrauterine . Please note bord prakash discrepancy between menstrual and sonographic dating paramet ers. Clinical correlation suggested. PETE MARTIN M.D. Pete Martin MD IMG US ORDERABLES documented in this encounter Visit Diagnoses Diagnosis test positive - Primary examination or test, positive result test positive examination or test, positive result documented in this encounter Additional Health Concerns Assessment Noted Time PHQ-9 Depression Total Score: 8 09/26/2015 8:00 AM LPN PRIVATE DUTY documented as of this encounter Care Teams Lumber Handler Relationship Specialty Start Date End Date Annalisa Mark APRN AUTHORS MOTIVATIONAL PCP - General Nurse Practitioner 03/22/15 [address] [place] [address] documented as of this encounter
--- OUTSIDE RECORDS SUMMARY | 2022-06-06 21:04 | XMS_ITS | Encounter Summary ---
:1985 Author Organization [place] Address [address] [place] [address] Care Team Providers Name Role Phone DeedeeAnnalisa dean Madonna STANLEY CNP Primary Care Provider [phone] Encounter Details Date Type Department Care Team Description 07/22/2016 Hospital Encounter [facility] Juan Pablo Baker MD [address] [facility] [address] [place] [address] related Maternal Teresa Michaud MD [address] [facility] [address] [place], [place] [id number] condition, Medicine Center unspecified trimester [place] [address] [facility] [address] [place] [id number] Social History Tobacco Use Types Packs/Day Years [...] you attend episcopal or Patient refused 2021 oriental orthodox services? [...] Sig Dispensed Refills Start Date End Date cephALEXin (KEFLEX) 500 Take 1 capsule by 14 capsule 0 01/2906/28/2019 MG capsuleIndications: mouth 2 times daily Other acute otitis for 7 days. externa Vit-Fe Take 1 tablet by 100 tablet 3 03/04/2016 Fumarate-FA ( mouth daily MULTIVITAMIN PLUS IRON) 27-0.8 MG TABSIndications: Encounter for supervision of normal first , unspecified trimester documented as of this encounter Progress Notes Daniel Baker MD - 07/22/2016 11:59 PM GOLF INSTRUCTOR Quick Note: Marcelino, all your results are within normal limits Daniel Baker M.D. INSTRUCTOR documented in this encounter Plan of Treatment Not on filedocumented as of this encounter Procedures Procedure Name Priority Date/Time Associated Comments Diagnosis MFM US COMPREHENSIVE Routine 07/22/2016 2:25 PM rela georgie Results for this SINGLE GOLF INSTRUCTOR condition, procedure are i n unspecified the results trimester section. documented in this encounter Results MFM US Comprehensive Single (07/22/2016 2:25 PM GOLF INSTRUCTOR) Anatomical Region Laterality Modality Ultrasound Specimen (Source) Anatomical Collection Method Collection Time Re ceived Time Location / / Volume Laterality 07/22/2016 1:41 PM GOLF INSTRUCTOR Impressions 07/22/2016 2:40 PM GOLF INSTRUCTOR IMPRESSION 1) Intrauterine at 24 2/7 week s gestational age. 2) None of the anomalies commonly detect ed by ultrasound were evident in the detailed anatomic survey described above. Specifically, COCONUT CANDY MAKER are not noted on US. 3) Growth parameters and estimated weight were consistent with an appropriate for gestation age pattern of growth. 4) The amniotic fluid volume appeared no rmal. Narrative 07/22/2016 2:40 PM GOLF INSTRUCTOR Comprehensive Pat. Name: MARCELINO DALEY Study Date: 1:41pm Pat. NO: [id number] Referring ??MD: GLENN BAKER Site: [facility] Scooper: Chiqui Melendez RDMS : 1985 Age: 31 INDICATION Bilateral choroid plexus cysts on outsid e US. METHOD Transabdominal ultrasound examination. V iew: Sufficient. [place] . Number of fetuses: 1. DATING ? Date ?Details ?Gest. age ?JUDD External assessment ?8/26/2 016 ?GA: 6 w + 5 d ? 24 w + 2 d ? 11/09/2016 U/S ? 07/22/2016 ? based upon AC, BPD, Femur, HC ?25 w + 5 d ? 10/30/2016 Assigned dating ?Dating performed on 07/22/2016, based on the external assessment (on 03/21/2016) ? 24 w + 2 d ? 11/09/2016 GENERAL EVALUATION Cardiac activity: present. FHR 130 bpm. movements: visualized. Presentation: breech. Placenta: posterior, There is no evidence of place nta previa. Umbilical cord: 3 vessel cord. Amniotic fluid: Amount of AF: normal arianne unt. MVP 5.8 cm. JAMIR 17.5 cm. Q1 5.4 cm, Q2 4.4 cm, Q3 1.9 cm, Q4 5.8 cm. BIOMETRY Main Biometry: BPD ? 64.1 ?mm ? 25w 6d ? Hadlock OFD ? 84.4 ?mm ? 25w 2d ? Nicolaides HC ?237.0 ?mm ?25w 5d ? Hadlock AC ?212.0 ?mm ?25w 5d ? Hadlock Femur ? 46.8 ?mm ?25w 4d ? Hadlock Cerebellum tr ? 28.7 ?mm ?25w 5d ? Nicolaides CM ? 6.3 ?mm ? Humerus ? 41.6 ?mm ? 25w 1d ?Bisi Weight Calculation: EFW ? 840 ? g ? 70% ?25w 4d ? Nathaniel EFW (lb,oz) ? 1 lb 14 ?oz Calculated by ?Hadlock ([id number]) Head / Face / Neck Biometry: Pawn Broker ?5.5 ?mm ? Amniotic Fluid / FHR: AF MVP ?5.8 ? cm ? JAMIR ? 17.5 ?cm ? FHR ?130 ? bpm ? ANATOMY The following structures appear normal: Head / Neck ? Cranium. Head size. Head shape. Lateral ventricles. Choroid plexus. Midline falx. Cavum septi pellucidi. Cerebellum. Cisterna magna. ? Thalami. ? Neck. Nuchal fold. Face ? Lips. Nose. Orbits. Heart / Thorax ?4-chamber view. RVOT. LVOT. Aortic arch. Bicaval view. Ductal arch. 3-hyilrb-udjfkjz view. Cardiac position. Cardiac size. Cardiac rhythm. ? Diaphragm. Abdomen ? Abdominal wall. Cord insertion. Stomach. Kidneys. Bladder. Liver. Bowel. Spine / Skelet. ? Cervical spine. Thoracic spine. Lumbar spine. Sacral spine. Extremities ?Arms. Legs. The following structures could not be vi sualized: Face ? Profile. Gender: male. MATERNAL STRUCTURES Cervix ?Visualized, Appears Closed. Right Ovary ?Not visualized. Left Ovary ?Not visualized. RECOMMENDATION REVISED REPORT We discussed the findings on today's kvng joseph with the patient. We reviewed that COCONUT CANDY MAKER are not noted on US today. The profile was not seen, but I did review Marcelino's US at your clinic, which demonstrated normal appearing profile. Recommend further ultrasound studies as additional clinical indications arise. Return to primary provider for continued care. Thank you for the opportunity to partici karly in the care of this patient. If you have questions regarding today's evaluation or if we can be of further service, please contact the [facility]. anomalies may be present but not detected. Procedure Note Teresa Michaud MD - 07/22/2016Formatt ing of this note might be different from the original. Comprehensive Pat. Name:Rolf DALEY Date:07/22 1:41pm Pat. NO: [id number] MD:DANIEL ROUSE [facility]Chiqui TULIO Melendez :1985Age:31 INDICATION Bilateral choroid plexus cysts on outsid e US. METHOD Transabdominal ultrasound examination. V iew: Sufficient. [place] . Number of fetuses: 1. DATING Date Details Gest. age JUDD External assessment 03/21/2016 GA: 6 w + 5 d 24 w + 2 d 11/09/2016 U/S 07/22/2016 based upon AC, BPD, Femur , HC 25 w + 5 d 10/30/2016 Assigned dating Dating performed on 06/27, based on the external assessment (on 03/21/2016) 24 w + 2 d 11/09/2016 GENERAL EVALUATION Cardiac activity: present. FHR 130 bpm. movements: visualized. Presentation: breech. Placenta: posterior, There is no evidence of place nta previa. Umbilical cord: 3 vessel cord. Amniotic fluid: Amount of AF: normal arianne unt. MVP 5.8 cm. JAMIR 17.5 cm. Q1 5.4 cm, Q2 4.4 cm, Q3 1.9 cm, Q4 5.8 cm. BIOMETRY Main Biometry: BPD 64.1 mm 25w 6d Hadlock OFD 84.4 mm 25w 2d Nicolaides HC 237.0 mm 25w 5d Hadlock AC 212.0 mm 25w 5d Hadlock Femur 46.8 mm 25w 4d Hadlock Cerebellum tr 28.7 mm 25w 5d Nicolaides CM 6.3 mm Humerus 41.6 mm 25w 1d Bisi Weight Calculation: EFW 840 g 70% 25w 4d Nathaniel EFW (lb,oz) 1 lb 14 oz Calculated by Aries ([id number]-[id number]-FL) Head / Face / Neck Biometry: Pawn Broker 5.5 mm Amniotic Fluid / FHR: AF MVP 5.8 cm JAMIR 17.5 cm FHR 130 bpm ANATOMY The following structures appear normal: Head / Neck Cranium. Head size. Head sha pe. Lateral ventricles. Choroid plexus. Midline falx. Cavum septi pellucidi. Cerebellum. Cisterna magna. Thalami. Neck. Nuchal fold. Face Lips. Nose. Orbits. Heart / Thorax 4-chamber view. RVOT. LVO T. Aortic arch. Bicaval view. Ductal arch. 7-tlqsxr-wkzswaj view. Cardiac position. Cardiac size. Cardiac rhythm. Diaphragm. Abdomen Abdominal wall. Cord insertion. Stomach. Kidneys. Bladder. Liver. Bowel. Spine / Skelet. Cervical spine. Thoracic spine. Lumbar spine. Sacral spine. Extremities Arms. Legs. The following structures could not be vi sualized: Face Profile. Gender: male. MATERNAL STRUCTURES Cervix Visualized, Appears Closed. Right Ovary Not visualized. Left Ovary Not visualized. RECOMMENDATION REVISED REPORT We discussed the findings on today's ult rasound with the patient. We reviewed that COCONUT CANDY MAKER are not noted on US today. The profile was not seen, but I did review Marcelino's US at your clinic, which demonstrated normal appearing profile. Recommend further ultrasound studies as additional clinical indications arise. Return to primary provider for continued care. Thank you for the opportunity to partici karly in the care of this patient. If you have questions regarding today's evaluation or if we can be of further service, please contact the [facility]. anomalies may be present but not detected. IMPRESSION 1) Intrauterine at 24 2/7 week s gestational age. 2) None of the anomalies commonly detect ed by ultrasound were evident in the detailed anatomic survey described above. Specifically, COCONUT CANDY MAKER are not noted on US. 3) Growth parameters and estimated weight were consistent with an appropriate for gestation age pattern of growth. 4) The amniotic fluid volume appeared no rmal. Daniel Baker MD [facility] US ORDERABLES documented in this encounter Visit Diagnoses Diagnosis related condition, unspecified trimester documented in this encounter Additional Health Concerns Assessment Noted Time PHQ-9 Depression Total Score: 5 04/22/2016 7:19 AM CDT documented as of this encounter Care Teams Quarantine Inspector Relationship Specialty Start Date End Date Annalisa Mark APRN TYPING SECRETARY PCP - General Nurse Practitioner 03/22/15 [address] [place] [address] documented as of this encounter
--- OUTSIDE RECORDS SUMMARY | 2022-06-06 21:04 | XMS_ITS | Encounter Summary ---
:1985 Author Organization [place] Address [address] [place] [address]. [place] [address] Care Team Providers Name Role Phone Deedee Annalisaarnulfo Peacock APRN, CNP Primary Care Provider [phone] Reason for Visit Reason Onset Date Comments Dizziness 07/08/2016 Encounter Details Date Type Department Care Team Description 07/08/2016 Telephone [facility] [place]ete [place] MD [facility] [place] [address] [place] [address] Social History Tobacco Use [...] or slept in a prison (including now)? Sex Assigned at Date Recorded Female 03/25/2021 2:01 PM CDT documented as of this encounter Miscellaneous Notes Telephone Encounter - Benito Monson RN - 07/08/2016 2:44 PM CST Pt did see PCP today. Pt checked out to be fine for now. EKG done and all. Tried to call but circuits are busy. Sent a [employer]t message to pt to call if needed. Benito Ocampo RN PHONE SEX WORKER Telephone Encounter - Benito Monson RN - 07/08/2016 9:50 AM CST Pt called in and stated that She has worked out really hard last night [phone] (even though she has been told not to work out that hard. She states learned her lesson She was very dizzy once at work this am. She feels like her Heart is beating fast, but doesn't know how to check her pulse. Feels super warm Feels like fainting. Week 22 in . Advise to drink extra fluids today maybe some Gatorade, make sure she is eating. Advised to call her PCP to be seen today. Plan was that I would call her later to see how she is feeling Attempt to call, got the fast busy line, like all circuits are busy. Please advise Benito Ocampo RN PHONE SEX WORKER documented in this encounter Plan of Treatment Not on filedocumented as of this encounter Visit Diagnoses Not on filedocumented in this encounter Additional Health Concerns Assessment Noted Time PHQ-9 Depression Total Score: 5 04/22/2016 7:19 AM CDT documented as of this encounter Care Teams Jointer Operator Relationship Specialty Start Date End Date Annalisa Mark APRN PROFESSOR OF BIOLOGY PCP - General Nurse Practitioner 03/22/15 [address] [place] [address] documented as of this encounter
--- OUTSIDE RECORDS SUMMARY | 2022-06-06 21:04 | XMS_ITS | Encounter Summary ---
:1985 Author Organization [place] Address [address] [place] [address]. [place] [address] Care Team Providers Name Role Phone DeedeeSwapna deanarnulfo Peacock APRN, CNP Primary Care Provider [phone] Reason for Visit Reason Comments Care Encounter Details Date Type Department Care Team Description 04/11/2016 Office [facility] MartinPete Vaginit is and vulvovaginitis (Primary Dx); Visit [facility] MD Alexandre care , first , first trimester [address] [place] [address] [place] [address] Social History Tobacco Use Types [...] you attend samaritan or Patient refused 2021 zoroastrian services? Do [...] Reading Time Taken Comments Blood Pressure 102/60 04/11/2016 2:07 PM CDT Pulse - - Temperature 36.8 ??C (98.3 ??F) 04/11/2016 2:07 PM CDT Respiratory Rate - - Oxygen Saturation - - Inhaled Oxygen Concentration - - Weight 55.4 kg (122 lb 3.2 oz) 04/11/2016 2:07 PM CDT Height 160 cm (5' 3) 04/11/2016 2:07 PM CDT Body Mass Index 21.65 04/11/2016 2:07 PM CDT documented in this encounter Progress Notes Veronica Pete - 04/11/2016 2:21 PM CDT SUBJECTIVE: Tameka Grissom is a 31 year old P0, single, woman who presents for 1st. OB vist. Patient's LMP from OB Dating Form was 01/27/2016.. Periods are regular q 28- 30 days. Current contraception: none Past Medical History Diagnosis Date ??? Papanicolaou smear of cervix with low grade squamous intraepithelial lesion (LGSIL) 02/15/08, 08/01/08, 04/05/09, 08/28/09 ??? History of colposcopy with cervical biopsy 02/24/08 PEDRO I, 11/21/08 PEDRO I, 04/10/09 PEDRO I &II, ??? Mild major depression (H) ??? History of OCD (obsessive compulsive disorder) 01/29/2012 ??? Generalised anxiety disorder 01/29/2012 ??? Allergic rhinitis, seasonal Past Surgical History Procedure Laterality Date ??? C nonspecific procedure rt brest biopsy,benign ??? Cryotherapy 04/04/08, 12/14/08 ??? Colposcopy cervix, loop electrode biopsy, combined 04/24/09 PEDRO I & II Current Outpatient Prescriptions Medication ??? Vit-Fe Fumarate-FA ( MULTIVITAMIN PLUS IRON) 27-0.8 MG TABS ??? escitalopram (LEXAPRO) 20 MG tablet No current facility-administered medications for this visit. Allergies Allergen Reactions ??? No Known Drug Allergies Social History Substance Use Topics ??? Smoking status: Never Smoker ??? Smokeless tobacco: Never Used ??? Alcohol Use: 0.0 oz/week 0 Standard drinks or equivalent per week Comment: Occaisional Review of Systems CONSTITUTIONAL:NEGATIVE EYES: NEGATIVE ENT/MOUTH: NEGATIVE RESP: NEGATIVE CV: NEGATIVE GI: NEGATIVE : NEGATIVE MUSCULOSKELATAL: NEGATIVE INTEGUMENTARY/SKIN: NEGATIVE BREAST: NEGATIVE NEURO: NEGATIVE. OBJECTIVE: BP 102/60 mmHg Temp(Src) 98.3 ??F (36.8 ??C) (Oral) Ht 5' 3 (1.6 m) Wt 122 lb 3.2 oz (55.43 kg) BMI 21.65 kg/m2 LMP 09/03/2015 (Exact Date) General appearance: Healthy. Skin: Normal. Mental Status: [...] normal adnexa, no masses or tenderness, uterus 9 week size and shape. Extremities: Normal . ASSESSMENT: First OB visit PLAN: 1) care 2) Discussed genetic testing 1st trimester screen, maternal serum screen; CVS or ammniocentisis . documented in this encounter Nursing Notes Marce Bazzi, [facility] - 04/11/2016 2:09 PM CDT Chief Complaint Patient presents with ??? Care NPN visit.10w5d Marce Bazzi MA Initial BP 102/60 mmHg Temp(Src) 98.3 ??F (36.8 ??C) (Oral) Ht 5' 3 (1.6 m) Wt 122 lb 3.2 oz (55.43 kg) BMI 21.65 kg/m2 LMP 09/03/2015 (Exact Date) Estimated body mass index is 21.65 kg/(m^2) as calculated from the following: Height as of this encounter: 5' 3 (1.6 m). Weight as of this encounter: 122 lb 3.2 oz (55.43 kg). BP completed using cuff size: regular documented in this encounter Plan of Treatment Not on filedocumented as of this encounter Procedures Procedure Name Priority Date/Time Associated Diagnosis Comme nts WET PREPARATION Routine 04/11/2016 2:31 Vaginitis and Results for this PM CDT vulvovaginitis procedure are in the results section. NEISSERIA Routine 04/11/2016 2:31 Vaginitis and Results for this GONORRHOEAE PCR PM CDT vulvovaginitis procedure are in the results section. CHLAMYDIA Routine 04/11/2016 2:31 Vaginitis and Results for this TRACHOMATIS PCR PM CDT vulvovaginitis procedure are in the results section. documented in this encounter Results (ABNORMAL) Wet prep (04/11/2016 2:31 PM CDT) Component Value Ref Test Analysis Performed At [facility] Price Range Method Time Signature Specimen Vagina [facility] Wet Prep Clue cells seen [place] No yeast seen [facility] No Trichomonas seen [facility] (A) Micro Report FINAL [place] Status 04/11/2016 [facility] Specimen Anatomical Collection Method Collection Time Receive d Time (Source) Location / / Volume Laterality 04/11/2016 2:31 PM 6 2:40 CDT PM CDT Pete Martin MD LAB - MICRO GENERAL ORDERABL ES Performing Organization Address City/State/ZIP Code Phon e Number [facility] [address] [place], [place] [address] [address] [place] TRACHOMATIS PCR (04/11/2016 2:31 PM CDT) Component Value Ref Test Analysis [facility]formed At [facility] Range Method Time Signature Specimen Cervical [facility] Chlamydia Negative [facility] Trachomatis Negative for C. trachomatis rRNA by show host or hostess mediated amplification. [place] [facility] A negative result by transc ription mediated amplification does not preclude the [facility] presence of C. trachomatis infection because re sults are dependent on proper BANK and adequate collection, absence of inhibitors, and suffici ent rRNA to be detected. Specimen Anatomical Collection Method Collection Time Receive d Time (Source) Location / / Volume Laterality Cervical swab 04/11/2016 2:31 PM 04/11/20 16 2:39 (specimen) CDT PM CDT Pete Martin MD LAB - MICRO GENERAL ORDERABL ES Performing Organization Address [facility] Phon e Number [address] [address] [place] [address] [address] [place], [place] [address] [address] [place] GONORRHOEA PCR (04/11/2016 2:31 PM CDT) Component Value Ref Test Analysis Performed At [facility] Range Method Time Signature Specimen Cervical [facility] N Gonorrhea Negative [facility]G [facility] PCR Negative for N. gonorrhoeae rRNA by transcripti on mediated amplification. [facility] A negative result by transc ription mediated amplification does not preclude the [facility] presence of N. gonorrhoeae infection because re sults are dependent on proper BANK and adequate collection, absence of inhibitors, and suffici ent rRNA to be detected. Specimen Anatomical Collection Method Collection Time Receive d Time (Source) Location / / Volume Laterality Cervical swab 04/11/2016 2:31 PM 04/11/20 16 2:39 (specimen) CDT PM CDT Pete Martin MD LAB - MICRO GENERAL ORDERABL ES Performing Organization Address [facility] Phon e Number [address] [address] [place] [address] [address] [place], [place] [address] [address] documented in this encounter Visit Diagnoses Diagnosis Vaginitis and vulvovaginitis - Primary Vaginitis and vulvovaginitis, unspecifie d care, first , first tr imester documented in this encounter Additional Health Concerns Assessment Noted Time PHQ-9 Depression Total Score: 8 09/26/2015 8:00 AM WIND FARM SUPPORT SPECIALIST documented as of this encounter Care Teams Rigging Slinger Relationship Specialty Start Date End Date Annalisa Mark APRN SILICA MIXER OPERATOR PCP - General Nurse Practitioner 03/22/15 [address] [place] [address] documented as of this encounter
--- OUTSIDE RECORDS SUMMARY | 2022-06-06 21:04 | XMS_ITS | Encounter Summary ---
:1985 Author Organization [place] Address [address] [place] [address]. [place] [address] Care Team Providers Name Role Phone Annalisa Markhele JADEN MONTALVO Primary Care Provider [phone] Encounter Details Date Type Department Care Team Description 09/03/2016 Telephone [facility] Nurse Neelima Coronel, RN Advisors [address] [place] [address] Social History Tobacco Use Types Packs/Day Years [...] you attend moravian or Patient refused 2021 baptism services? Do [...] this encounter Miscellaneous Notes Telephone Encounter - Neelima Coronel RN - 09/03/2016 8:44 PM CST Call Type: Triage Call Presenting Problem: Caller is 30 weeks and 20 minutes ago had aslip and fall; no bleeding; has not felt movement but states baby is not very active ususally. call box wirer for [place] [facility] paged via cardiograph operator @ 2035 to call patient at home [phone]. Triage Note: Guideline Title: : Trauma Recommended Disposition: Call Provider Immediately Original Inclination: Wanted to speak with a nurse Override Disposition: Intended Action: Call PCP/HCP Physician Contacted: No Minor trauma with no apparent injury AND questions/concerns ? YES Sudden gush or trickle of fluid from the vagina ? NO Blood in urine ? NO Abdominal pain OR cramping ? NO Blow or blunt force trauma to abdomen ? NO Severe breathing problems ? NO Breathing problems ? NO New or worsening signs and symptoms that may indicate shock ? NO Gestation 20-37 weeks AND contractions ? NO More than 37 weeks gestation AND contractions ? NO Continuous hardening (non-relaxing) of uterus or abdomen or severe abdominal pain or cramping ? NO Gaping wound, regardless of location, wound with possible foreign body, or any laceration on face, neck, hands or cosmetic concerns ? NO High voltage electrical frost ? NO Known or suspected head, neck, or back injury resulting from a major trauma ? NO New weakness or paralysis, not due to pain; new loss of coordination (purposeful action) OR new unexplained numbness/tingling involving any part of the body ? NO Unconscious now or within last hour OR for more than 5 minutes at time of injury ? NO Trauma from high-energy mechanism ? NO New pain in back or neck following blunt trauma and mobile since injury ? NO New back, flank or abdominal bruising ? NO Umbilical cord or any part of the baby (head, bottom, arm or leg) at the opening of the vagina ? NO Gush or leakage of green or green-tinged or port-wine colored fluid (reddish and watery) from the vagina ? NO Vaginal bleeding related to trauma ? NO Decreased movement (less than 10 kicks/movements within two hours or a significant change in usual pattern compared to previous days) ? NO Numbness in the groin and saddle area of pelvis AND lower extremity weakness OR change in bowel or bladder control (loss of control, retention, overflow) ? NO Absent pulse (cardiac arrest) ? NO Other burn injury ? NO Abdominal trauma AND feeling of wanting to push (urge to bear down) or have a bowel movement or regular contractions less than 5 minutes apart ? NO Persistent dizziness OR lightheadedness that does not resolve within ten minutes ? NO Partial thickness thermal or chemical frost of head, face, on lips, or ears, on perineum or over major joints. ? NO Penetrating full thickness injury (an injury that passes through the skin layers of epidermis and dermis and penetrates into the underlying subcutaneous tissue) to the neck, chest or torso, the arm above elbow, or the leg above knee ? NO Obvious deformity (odd angle or obvious misalignment) OR pain involving two or more long bones. ? NO Other signs and symptoms of head injuryGO TO GUIDELINE to Head Injury ? NO Physician Instructions: Care Advice: IMMEDIATE ACTION CAUTIONS HEALTH PROMOTION / MAINTENANCE See another provider immediately if unable to talk with your provider within 1 hour. Follow the directions from your provider's personal banker resource if you are unable to speak to your provider directly. You may be directed to go to the hospital's Labor & Delivery department for evaluation. Another adult should drive. Monitor Kicks: Usually starting at week 28, begin counting your baby's movements in the following ways: - Select a time each day, preferably after a meal. Lie down on left side or sit with feet up. - Note time and begin counting number of kicks/movements. - Call your provider if there is a change in your baby's activity compared to previous days or if kicks/movements are less than 10 within a 2-hour period. Speak with provider immediately if: - Contractions four times in 20 minutes OR 8 contractions in an hour - Gush or leakage of fluid from the vagina - Decreased movement (less than 10 kicks per 2 hours or a noticeable decrease in baby's activity compared to previous day) - Previous vaginal after less than 6 hours of labor Call EMS 911 if any of these occur: profuse bright red vaginal bleeding continuous (without relaxation) abdominal pain the umbilical cord or any part in vagina bag of jung coming through vagina feeling of wanting to push or have a bowel movement. LE SEWER documented in this encounter Plan of Treatment Not on filedocumented as of this encounter Visit Diagnoses Not on filedocumented in this encounter Additional Health Concerns Assessment Noted Time PHQ-9 Depression Total Score: 5 04/22/2016 7:19 AM CDT documented as of this encounter Care Teams English Professor Relationship Specialty Start Date End Date Annalisa Mark APRN DIRECT MARKETING REPRESENTATIVE PCP - General Nurse Practitioner 03/22/15 [address] [place] [address] documented as of this encounter
--- OUTSIDE RECORDS SUMMARY | 2022-06-06 21:04 | XMS_ITS | Encounter Summary ---
:1985 Author Organization [place] Address [address] [place] [address]. [place] [address] Care Team Providers Name Role Phone DeedeeSwapna deanarnulfo Peacock APRN, CNP Primary Care Provider [phone] Reason for Visit Reason Comments Care Encounter Details Date Type Department Care Team Description 09/01/2016 Office [facility] Pete Martin care, first Visit Women's Clinic MD Alexandre , th ird [place] trimester (Primary [address] [place] [address] [place] [address] Social History Tobacco Use Types Packs/Day Years [...] you attend yarsanism or Patient refused 2021 baptist services? Do [...] Sign Reading Time Taken Comments Blood Pressure 98/68 09/01/2016 5:00 PM CAUSTIC OPERATOR Pulse - - Temperature - - Respiratory Rate - - Oxygen Saturation - - Inhaled Oxygen Concentration - - Weight 63.6 kg (140 lb 3.2 oz) 09/01/2016 5:00 PM CAUSTIC OPERATOR Height - - Body Mass Index 24.84 04/11/2016 2:07 PM CDT documented in this encounter Progress Notes Pete Martin - 09/01/2016 5:17 PM CST Numbness at costal margin. TIC OPERATOR documented in this encounter Nursing Notes Marce Bazzi CMA - 09/01/2016 5:02 PM CST Chief Complaint Patient presents with ??? Care 30w1d Marce Bazzi MA Initial BP 98/68 mmHg Wt 140 lb 3.2 oz (63.594 kg) LMP 01/27/2016 Estimated body mass index is 24.84 kg/(m^2) as calculated from the following: Height as of 04/11/16: 5' 3 (1.6 m). Weight as of this encounter: 140 lb 3.2 oz (63.594 kg). Marce Bazzi MA TIC OPERATOR documented in this encounter Plan of Treatment Not on filedocumented as of this encounter Visit Diagnoses Diagnosis care, first , third tr imester - Primary documented in this encounter Additional Health Concerns Assessment Noted Time PHQ-9 Depression Total Score: 5 04/22/2016 7:19 AM CDT documented as of this encounter Care Teams Inside Wirer Relationship Specialty Start Date End Date Annalisa Mark APRN SET RIDER PCP - General Nurse Practitioner 03/22/15 [address] [place] [address] documented as of this encounter
--- OUTSIDE RECORDS SUMMARY | 2022-06-06 21:04 | XMS_ITS | Encounter Summary ---
:1985 Author Organization [place] Address Formerly [facility], [facility] [place] [address] Care Team Providers Name Role Phone DeedeeAnnalisa edanhele JADEN MONTALVO Primary Care Provider [phone] Reason for Referral Consultation - Closed Specialty Diagnoses / Procedures Referred By Contact Refer red To Contact Diagnoses Abnormal ultrasound Prudencio Baker MD MATERNAL- MEDICINE [address] [facility] [address] [place] [address] [address] [facility], [address] [place] [address] Phone: Fax: Referral ID Status Reason Start Date Expiration Date Visits Requ ested Visits Authorized [id number] Closed 07/13/2016 07/13/2017 1 1 OLE STRIPPER Encounter Details Date Type Department Care Team Description 06/18/2016 Radiant Appointment [facility] Hector Baker ormal ultrasound (Primary Dx); Clinic Cezar Flannery MD care, first , unspecif ied trimester [address] [place] [address] [place], [place] [address] [place], [place] [phone] [address] Social History Tobacco Use Types Packs/Day Years [...] or relatives? How often do you attend yazidi or Patient refused 2021 rastafarian services? Do you belong to any clubs or No 10/17/2021 organizations such as yazidi groups, unions, fraternal or athletic groups, or [...] or slept in a mcc (including now)? Sex Assigned at Date Recorded Female 03/25/2021 2:01 PM CDT documented as of this encounter Progress Notes Prudencio Baker MD - 07/13/2016 4:42 PM MANHOLE STRIPPER Quick Note: Tameka- As promised here is a brief summary of Choroid plexus cysts. Please let me know if you have any additional questions. I did put in an order earlier for the consultation and ultrasound as we discussed. They will call you tomorrow to schedule an appointment Sincerely Prudencio Baker M.D. CHOROID PLEXUS CYSTS ??? The choroid plexuses start developing at approximately six to seven postmenstrual weeks, grow rapidly, and fill about 75 percent of the cavity of the lateral ventricles by nine postmenstrual weeks. The adult appearance is reached by 20 postmenstrual weeks [75,76]. Choroid plexus cysts are common sonographic findings during the second trimester. They usually disappear by the third trimester; those that persist are usually asymptomatic and benign. Choroid plexus cysts appear to result from filling of the neuroepithelial folds with cerebrospinal fluid [77]. The typical sonographic appearance is a small (usually less than 1 cm), sonolucent structure(s) with well delineated borders located within the choroid plexus (image [id number]). A wide range of appearances are possible, from unilateral single cysts to bilateral septated and multiple cysts [75,78-83]. Isolated choroid plexus cysts are present in 1 to 2 percent of the normal population and not associated with an increased risk of aneuploidy. However, fetuses with choroid plexus cysts and additional anomalies are at increased risk of chromosomal abnormalities, especially trisomy 18. Thus, a thoroughfetal anatomic survey is important when these cysts are detected in order to school adjustment counselor the patient about further evaluation, particularly karyotype. (See Sonographic findings associated with fetalaneuploidy, section on 'Choroid plexus cysts'.) Prudencio Baker M.D. OLE STRIPPER documented in this encounter Plan of Treatment Scheduled Referrals Name Type Priority Associated Diagnoses Order S chedule [facility] MED CTR Referral Routine Abnormal ultrasou nd Ordered: 07/13/2016 REFERRAL- documented as of this encounter Procedures Procedure Name Priority Date/Time Associated Diagnosis Comme nts US OB > 14 WEEKS Routine 06/18/2016 4:09 PM care, fir st Results for this MANHOLE STRIPPER , procedure are i n unspecified trimester the re sults section. documented in this encounter Results (ABNORMAL) US OB > 14 Weeks Complete Single (06/18/2016 4:09 PM MANHOLE STRIPPER) Anatomical Region Laterality Modality Abdomen/Pelvis Ultrasound Specimen (Source) Anatomical Location Collection Method / Collectio n Time Received Time / Laterality Volume Narrative 06/19/2016 9:33 PM MANHOLE STRIPPER ULTRASOUND - COMPLETE OB (18+) [facility] Obstetrics & Gynecology [address] [facility] [place] [address] Referring Provider: Pete Martin MD Clinic: [facility] INDICATIONS FOR ULTRASOUND: OB History: [...] in this encounter Visit Diagnoses Diagnosis Abnormal ultrasound - Primary Abnormal findings on screening care, first , unspecif ied trimester documented in this encounter Additional Health Concerns Assessment Noted Time PHQ-9 Depression Total Score: 5 04/22/2016 7:19 AM CDT documented as of this encounter Care Teams Skein Winder Relationship Specialty Start Date End Date Annalisa Mark APRN PUBLIC HEALTH ENGINEER PCP - General Nurse Practitioner 03/22/15 [address] [place] [address] documented as of this encounter
--- OUTSIDE RECORDS SUMMARY | 2022-06-06 21:04 | XMS_ITS | Encounter Summary ---
:1985 Author Organization [place] Address [address] [place] [address]. [place] [address] Care Team Providers Name Role Phone DeedeeAnnalisa dean Madonna STANLEY CNP Primary Care Provider Reason for Visit Reason Onset Date Comments Patient Request 03/06/2016 Encounter Details Date Type Department Care Team Description 03/06/[address] [facility] Women's Pete Martin, Patient Request Clinic Cezar ROLLINS [address] [place] [address] Social History Tobacco Use [...] or relatives? How often do you attend religion or Patient refused 2021 latter day services? Do you belong to any clubs or No 10/17/2021 organizations such as religion groups, unions, fraternal or athletic groups, or [...] Telephone Encounter - Pamella Chapman RN - 03/06/2016 11:17 AM CDT Pt called and given results. She has an appt for an US on 03/13/16. She will keep that appt and call with any concerns. Geronimo Chapman, RN Telephone Encounter - Aisha Garcia - 03/06/2016 11:12 AM CDT Reason for Call: Request for results: Name of test or procedure: hcg Date of test of procedure: 03/06/2016 Location of the test or procedure: [facility] OK to leave the result message on voice mail or with a family member? YES Phone number Patient can be reached at: [phone] Additional comments: told to call after 11:00 Call taken on 03/06/2016 at 11:12 AM by Aisha Garcia documented in this encounter Plan of Treatment Not on filedocumented as of this encounter Visit Diagnoses Not on filedocumented in this encounter Additional Health Concerns Assessment Noted Time PHQ-9 Depression Total Score: 8 09/26/2015 8:00 AM CANNON PINION ADJUSTER documented as of this encounter Care Teams Bpm Analyst Relationship Specialty Start Date End Date Annalisa Mark APRN HEAVY MACHINERY OPERATOR PCP - General Nurse Practitioner 03/22/15 [address] [place] [address] documented as of this encounter
--- OUTSIDE RECORDS SUMMARY | 2022-06-06 21:04 | XMS_ITS | Encounter Summary ---
:1985 Author Organization [place] Address Formerly [facility] [place] [address] Care Team Providers Name Role Phone DeedeeAnnalisa dean Madonna STANLEY CNP Primary Care Provider [phone] Reason for Visit Reason Comments Care Encounter Details Date Type Department Care Team Description 07/14/2016 Office [facility] Pete Martin care, first Visit Women[facility] Clinic MD Alexandre , se cond [place] trimester (Primary [address] [place] [address] [place] [address] Social History Tobacco Use Types Packs/Day Years [...] attend roman catholic or Patient refused 2021 synagogue services? Do [...] Sign Reading Time Taken Comments Blood Pressure 92/62 07/14/2016 4:10 PM FREELANCE TRANSLATOR Pulse - - Temperature - - Respiratory Rate - - Oxygen Saturation - - Inhaled Oxygen Concentration - - Weight 59.9 kg (132 lb) 07/14/2016 4:10 PM FREELANCE TRANSLATOR Height - - Body Mass Index 23.38 04/11/2016 2:07 PM CDT documented in this encounter Progress Notes Pete Martin - 07/14/2016 4:42 PM CST US on Thursday for choroid plexus cysts. LANCE TRANSLATOR documented in this encounter Nursing Notes Marce Bazzi CMA - 07/14/2016 4:15 PM CST Chief Complaint Patient presents with ??? Care 23w1d Discuss US results. Marce Bazzi MA Initial BP 92/62 mmHg Wt 132 lb (59.875 kg) LMP 09/03/2015 (Exact Date) Estimated body mass index is 23.39 kg/(m^2) as calculated from the following: Height as of 04/11/16: 5' 3 (1.6 m). Weight as of this encounter: 132 lb (59.875 kg). BP completed using cuff size: regular\ LANCE TRANSLATOR documented in this encounter Plan of Treatment Not on filedocumented as of this encounter Visit Diagnoses Diagnosis care, first , second t rimester - Primary documented in this encounter Additional Health Concerns Assessment Noted Time PHQ-9 Depression Total Score: 5 04/22/2016 7:19 AM CDT documented as of this encounter Care Teams Beet Worker Relationship Specialty Start Date End Date Annalisa Mark APRN WIRE DRAWING 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 PCP - General Nurse Practitioner 03/22/15 [address] [place] [address] documented as of this encounter
--- OUTSIDE RECORDS SUMMARY | 2022-06-06 21:04 | XMS_ITS | Encounter Summary ---
:1985 Author Organization [place] Address Counts include 234 beds at the [facility] [place] [address] Care Team Providers Name Role Phone Annalisa Markhele JADEN MONTALVO Primary Care Provider [phone] Encounter Details Date Type Department Care Team Description 03/13/2016 Radiant Appointment [facility] Pete Martin for Clinic Cezar Schroeder MD supervision of [address] [facility] normal [facility] , [address] unspecified [place], [place] trimester [Z3 4.00] [address] Social History Tobacco Use Types Packs/Day [...] you attend worship or Patient refused 2021 adventism services? Do [...] Date/Time Associated Diagnosis Comme nts US OB <14 WEEKS WITH Routine 03/13/2016 11:41 Encounter for Re sults for this TRANSVAGINAL SINGLE AM CDT supervision of proced ure are in normal first the results , section. unspecified trimester [Z34.00] documented in this encounter Results (ABNORMAL) US OB <14 Weeks w Transvaginal Single (03/13/2016 11:41 AM CDT) Anatomical Region Laterality Modality Abdomen/Pelvis Ultrasound Specimen (Source) Anatomical Location Collection Method / Collectio n Time Received Time / Laterality Volume Narrative 03/15/2016 1:[address] [facility] Obstetrics & Gynecology [address] [place] [address] ULTRASOUND - EARLY OB (0-11 WEEKS) Referring Provider: Pete Martin MD Clinic: [facility] INDICATIONS FOR ULTRASOUND: OB History: Hx - MAB Present Conditions: Initial S&D (0-17 we eks) CLINICAL INFORMATION LMP: 27 Jan 2016 - sure EDC: 02 Nov 2016 EGA: 6w4d MEASUREMENTS Gest Sac: vis 1.9 x 1.3 x 0.7 cm Position:nl Contour:smth/reg Yolk sac: 2.6 mm wnl CRL: 0.27 cm. EGA: 5w 6d U/S EDC: 07 Nov 2016 correspond Cardiac Activity:Yes FHR: 98 bpm slow Rt Ov: 3.5 x 2.1 x 3.2 cm, Complex cyst 2.4 x 2.0 x 2.5cm Lt Ov: 2.0 x 1.0 x 1.4 cm, Wnl Cul de sac: no free fluid Early obstetric transabdominal and trans vaginal ultrasound. Living intrauterine . Corresponding so nographic and ??menstrual EGA and EDC. Slight embryonic bradycardia. Recom mend repeat ultrasound in 7 - 10 days to document viability. PETE MARTIN M.D. Pete Martin MD IMG US ORDERABLES documented in this encounter Visit Diagnoses Diagnosis Encounter for supervision of normal firs t , unspecified trimester [Z34.00] documented in this encounter Additional Health Concerns Assessment Noted Time PHQ-9 Depression Total Score: 8 09/26/2015 8:00 AM MISSILE INSPECTOR PREFLIGHT documented as of this encounter Care Teams Nursing Care Attendant Relationship Specialty Start Date End Date Annalisa Mark APRN DINING ROOM SERVER PCP - General Nurse Practitioner 03/22/15 [address] [place] [address] documented as of this encounter
--- OUTSIDE RECORDS SUMMARY | 2022-06-06 21:04 | XMS_ITS | Encounter Summary ---
:1985 Author Organization [place] Address [address] [place] [address]. [place] [address] Care Team Providers Name Role Phone Annalisa Mark APRN, CNP Primary Care Provider [phone] Reason for Visit Reason Comments Dizziness Encounter Details Date Type Department Care Team Description 07/08/2016 Office Visit [facility] Annalisa Mark Dizziness (Primary Dx) Clinic [place] JADEN Peacock FILL PLANT OPERATOR [address] [place] [id number] [phone] Social History Tobacco Use Types Packs/Day Years [...] you attend amish or Patient refused 2021 anabaptist services? Do [...] Reading Time Taken Comments Blood Pressure 110/64 07/08/2016 10:24 AM HEART SURGEON Pulse 82 07/08/2016 10:24 AM HEART SURGEON Temperature 36.4 ??C (97.6 ??F) 07/08/2016 10:24 AM HEART SURGEON Respiratory Rate 14 07/08/2016 10:24 AM HEART SURGEON Oxygen Saturation 100% 07/08/2016 10:24 AM HEART SURGEON Inhaled Oxygen Concentration - - Weight 61.2 kg (135 lb) 07/08/2016 10:24 AM HEART SURGEON Height - - Body Mass Index 23.91 04/11/2016 2:07 PM CDT documented in this encounter Progress Notes Annalisa Mark, JADEN FILL PLANT OPERATOR - 07/08/2016 10:24 AM CST SUBJECTIVE: Tameka Grissom is a 31 year old female who presents to clinic today for the following health issues: Dizziness ?? Duration: started this morning ?? Description Feeling faint: YES Feeling like the surroundings are moving: no Loss of consciousness or falls: no ?? Accompanying signs and symptoms: Nausea/vomiting: no Palpitations: YES, feels like hear is beating vast Weakness in arms or legs: no Vision or speech changes: No Ringing in ears (Tinnitus): YES Hearing loss related to dizziness: no Other (fevers/chills/sweating/dyspnea): YES- sweating ?? History (similar episodes/head trauma/previous evaluation/recent bleeding): None ?? Precipitating or alleviating factors (new meds/chemicals): None Worse with activity/head movement: no ?? Therapies tried and outcome: increased fluids Weight training session last night with heavier weights than usual. Woke this morning with feeling dizzy, increased after getting to work. Feels dizzy with sitting and standing. Denies increase in dizziness with change in position, no sensation of vertigo. Ate breakfast this morning and is well hydrated. Denies headache, chest pain, vision disturbance. Currently 22 weeks gestation, is going well. Cardiac Risk Factors: History of hypertension - No History of hyperlipidemia - no History of diabetes - No History of smoking - No Family history of heart complications - No Problem list and histories reviewed & adjusted, as indicated. Additional history: as documented Patient Active Problem List Diagnosis ??? Mild major depression (H) ??? CARDIOVASCULAR SCREENING; LDL GOAL LESS THAN 160 ??? LGSIL on Pap smear ??? History of OCD (obsessive compulsive disorder) ??? Generalized anxiety disorder ??? care, first Past Surgical History Procedure Laterality Date ??? C nonspecific procedure rt brest biopsy,benign ??? Cryotherapy 04/04/08, 12/14/08 ??? Colposcopy cervix, loop electrode biopsy, combined 04/24/09 PEDRO I & II Social History Substance Use Topics ??? Smoking status: Never Smoker ??? Smokeless tobacco: Never Used ??? Alcohol Use: 0.0 oz/week 0 Standard drinks or equivalent per week Comment: Occaisional Family History Problem Relation Age of Onset ??? Arthritis Mother degenerative in knees ??? Lipids Mother ??? Lipids Father ??? Family History Negative Sister ??? Family History Negative Brother ??? Breast Cancer Other paternal aunt ??? Alcohol/Drug Mother Current Outpatient Prescriptions Medication Sig Dispense Refill ??? Vit-Fe Fumarate-FA ( MULTIVITAMIN PLUS IRON) 27-0.8 MG TABS Take 1 tablet by mouth daily 100 tablet 3 Allergies Allergen Reactions ??? No Known Drug Allergies ROS: C: NEGATIVE for fever, chills, change in weight E/M: NEGATIVE for ear, mouth and throat problems R: NEGATIVE for significant cough or SOB CV: NEGATIVE for chest pain, palpitations or peripheral edema OBJECTIVE: BP 110/64 mmHg Pulse 82 Temp(Src) 97.6 ??F (36.4 ??C) (Oral) Resp 14 Wt 135 lb (61.236 kg) SpO2 100% LMP 09/03/2015 (Exact Date) Body mass index is 23.92 kg/(m^2). GENERAL: healthy, alert and no distress NECK: no adenopathy, no asymmetry, masses, or scars and thyroid normal to palpation RESP: lungs clear to auscultation - no rales, rhonchi or wheezes CV: regular rate and rhythm, normal S1 S2, no S3 or S4, no murmur, click or rub, no peripheral edema Doppler used, HR 156, regular ASSESSMENT: See below PLAN: Tameka was seen today for dizziness. Diagnoses and all orders for this visit: Dizziness: orthostatic BP's normal, EKG with normal results. Discussed increased fluid intake, smallfrequent meals. - EKG 12-lead complete w/read - Clinics FUTURE APPOINTMENTS: - Follow-up visit if not improving. Annalisa Mark APRN CNP [facility] T SURGEON documented in this encounter Nursing Notes Rajwinder Milton CMA - 07/08/2016 10:28 AM CST Chief Complaint Patient presents with ??? Dizziness Initial BP 110/64 mmHg Pulse 82 Temp(Src) 97.6 ??F (36.4 ??C) (Oral) Resp 14 Wt 135 lb (61.236 kg) SpO2 100% LMP 09/03/2015 (Exact Date) Estimated body mass index is 23.92 kg/(m^2) as calculated from the following: Height as of 16: 5' 3 (1.6 m). Weight as of this encounter: 135 lb (61.236 kg). BP completed using cuff size: regular Rajwinder Milton CMA T SURGEON documented in this encounter Plan of Treatment Not on filedocumented as of this encounter Procedures Procedure Name Priority Date/Time Associated Diagnosis Comme nts EKG 12-LEAD Routine 07/08/2016 10:48 AM Dizziness Results for this COMPLETE W/READ - HEART SURGEON procedure are in CLINICS the results section. documented in this encounter Results EKG 12-lead complete w/read - Clinics (07/08/2016 10:48 AM HEART SURGEON) Narrative This result has an attachment that is no t available. Annalisa Mark APRN, CNP ECG ORDERABLES documented in this encounter Visit Diagnoses Diagnosis Dizziness - Primary Dizziness and giddiness documented in this encounter Additional Health Concerns Assessment Noted Time PHQ-9 Depression Total Score: 5 04/22/2016 7:19 AM CDT documented as of this encounter Care Teams Partner Marketing Intern Relationship Specialty Start Date End Date Annalisa Mark APRN CNP PCP - General Nurse Practitioner 03/22/15 [address] [place] [address] documented as of this encounter
--- OUTSIDE RECORDS SUMMARY | 2022-06-06 21:04 | XMS_ITS | Encounter Summary ---
:1985 Author Organization [facility] Address [address] [place] [address]. [place] [address] Care Team Providers Name Role Phone DeedeeAnnalisa dean Madonna STANLEY CNP Primary Care Provider [phone] Reason for Visit Reason Comments Urinary Problem Encounter Details Date Type Department Care Team Description 04/09/2016 Allied Health/Nurse [facility] Urinary Problem Visit [place] [address] [place] [address] Social History Tobacco Use [...] you attend catholic or Patient refused 2021 mandaen services? Do [...] or slept in a chcf (including now)? Sex Assigned at Date Recorded Female 03/25/2021 2:01 PM CDT documented as of this encounter Plan of Treatment Not on filedocumented as of this encounter Procedures Procedure Name Priority Date/Time Associated Comments Diagnosis UA MACROSCOPIC WITH Routine 04/09/2016 5:20 PM Dysuria Re sults for this REFLEX TO MICRO CDT procedure ar e in the results section. URINE CULTURE Routine 04/09/2016 5:20 PM Dysuria Results for this CDT procedure are i n the results section. documented in this encounter Results Urine Culture Aerobic Bacterial (04/09/2016 5:20 PM CDT) [facility] Method Time Signature Specimen Urine [facility] Culture Micro <10,000 INFECTIOUS colonies/mL DISEASE mixed DIAGNOSTIC urogenital LABORATORY roberto Micro Report FINAL INFECTIOUS Status 04/11/2016 DISEASE DIAGNOSTIC LABORATORY Specimen Anatomical Collection Method Collection Time Receive d Time (Source) Location / / Volume Laterality Urine specimen 04/09/2016 5:20 PM 016 5:54 (specimen) CDT PM CDT Pete Martin MD LAB - MICRO GENERAL ORDERABL ES Performing Organization Address City/State/ZIP Code Phon e Number INFECTIOUS DISEASES [address] [place] [address] DIAGNOSTIC LABORATORY, [facility] [address] [place] [address] [place] [address] INFECTIOUS DISEASE [address] [place], [place] [id number] [place] [address] DIAGNOSTIC LABORATORY UA reflex to Microscopic (04/09/2016 5:20 PM CDT) [facility] Method [place] Signature Color Urine Yellow [facility] Appearance Urine Clear [facility] Glucose Urine Negative NEG mg/dL [facility] Bilirubin Urine Negative NEG [facility] Ketones Urine Negative NEG mg/dL [facility] Specific [place] <=1.005 1.003 - [place] Urine 1.035 [facility] Blood Urine Negative NEG [facility] pH Urine 6.0 5.0 - 7.0 [place] pH [facility] Protein Albumin Negative NEG mg/dL [place] Urine [facility] Urobilinogen 0.2 0.2 - 1.0 [place] Urine EU/dL [facility] Nitrite Urine Negative NEG [facility] Leukocyte Negative NEG [place] Esterase Urine [facility] Source Midstream [place] Urine [facility] Specimen Anatomical Collection Method Collection Time Receive d Time (Source) Location / / Volume Laterality Urine specimen 04/09/2016 5:20 PM 016 5:53 (specimen) CDT PM CDT Pete Martin MD LAB - URINE ORDERABLES Performing Organization Address City/State/ZIP Code Phon e Number [facility] [address] [place], [place] [address] [address] documented in this encounter Visit Diagnoses Diagnosis Dysuria - Primary documented in this encounter Additional Health Concerns Assessment Noted Time PHQ-9 Depression Total Score: 8 09/26/2015 8:00 AM MICA PLATE LAYER HAND documented as of this encounter Care Teams Supervisor Instant Potato Processing Relationship Specialty Start Date End Date Annalisa Mark APRN BACK WINDER PCP - General Nurse Practitioner 03/22/15 [address] [place] [address] documented as of this encounter
--- OUTSIDE RECORDS SUMMARY | 2022-06-06 21:04 | XMS_ITS | Encounter Summary ---
:1985 Author Organization [place] Address [address] [place] [address]. [place] [address] Care Team Providers Name Role Phone Deedee Annalisaarnulfo Peacock APRN, CNP Primary Care Provider [phone] Reason for Visit Reason Onset Date Comments Other 04/28/2016 Pt has declined firs t trimester testing - [facility] Encounter Details Date Type Department Care Team Description 04/28/2016 Telephone [facility] Pete Martin Other (Pt has declined [facility] MD Alexandre first trimest er testing [facility]) [address] [place] [address] Social History Tobacco Use Types [...] you attend anabaptism or Patient refused 2021 mosque services? Do [...] Telephone Encounter - Benito Monson RN - 04/28/2016 10:20 AM CDT I received a call from [facility], they stated that this pt has declined to have first trimester testing. They wanted us to know in case we would like to offer her Quad testing or others. Benito Ocampo RN Sent to Dr. Martin to let him know. documented in this encounter Plan of Treatment Not on filedocumented as of this encounter Visit Diagnoses Not on filedocumented in this encounter Additional Health Concerns Assessment Noted Time PHQ-9 Depression Total Score: 5 04/22/2016 7:19 AM CDT documented as of this encounter Care Teams Automotive Designer Relationship Specialty Start Date End Date Annalisa Mark APRN HVAC JOURNEYMAN PCP - General Nurse Practitioner 03/22/15 [address] [place] [address] documented as of this encounter
--- OUTSIDE RECORDS SUMMARY | 2022-06-06 21:04 | XMS_ITS | Encounter Summary ---
:1985 Author Organization [place] Address [address] [place] [address]. [place] [address] Care Team Providers Name Role Phone DeedeeAnnalisa deansalima STANLEY CNP Primary Care Provider [phone] Encounter Details Date Type Department Care Team Description 03/21/2016 Radiant Appointment [facility] Pete Martin Pre gnancy test Clinic Lázaro [place] MD positive [place] [address] [address] Social History Tobacco Use Types Packs/Day Years [...] you attend jewish or Patient refused 2021 buddhism services? Do [...] Procedure Name Priority Date/Time Associated Comments Diagnosis US OB <14 WEEKS WITH Routine 03/21/2016 3:42 PM test Results for this TRANSVAGINAL SINGLE CDT positive procedur e are in the results section. documented in this encounter Results (ABNORMAL) US OB <14 Weeks w Transvaginal Single (03/21/2016 3:42 PM CDT) Anatomical Region Laterality Modality Abdomen/Pelvis Ultrasound Specimen (Source) Anatomical Location Collection Method / Collectio n Time Received Time / Laterality Volume Narrative 03/23/2016 1:58 PM CDT ULTRASOUND - EARLY OB (0-11 WEEKS) [address] [address] Tel. Referring Provider: Pete Martin MD Clinic: [facility] INDICATIONS FOR ULTRASOUND: OB History: 1st trimester [...] this encounter Visit Diagnoses Diagnosis test positive examination or test, positive result documented in this encounter Additional Health Concerns Assessment Noted Time PHQ-9 Depression Total Score: 8 09/26/2015 8:00 AM SHIFT MANAGER documented as of this encounter Care Teams Rn Urology Relationship Specialty Start Date End Date Annalisa Mark APRN CASINO DEALER PCP - General Nurse Practitioner 03/22/15 [address] [place] [address] documented as of this encounter
--- OUTSIDE RECORDS SUMMARY | 2022-06-06 21:04 | XMS_ITS | Encounter Summary ---
:1985 Author Organization [place] Address [address] [facility] [place] [address] Care Team Providers Name Role Phone Annalisa Mark APRN, CNP Primary Care Provider [phone] Reason for Referral Consultation - Closed Specialty Diagnoses / Procedures Referred By Contact Refer red To Contact Diagnoses Tinnitus, left [facility]ed[facility] TUTOR FORMING PRESS OPERATOR [address] [address] [place] [address] [place], [place] [address] Referral ID Status Reason Start Date Expiration Date Visits Requ ested Visits Authorized [id number] Closed 06/24/2016 06/24/2017 1 1 ICAL BORER Reason for Visit Reason Comments Ear Problem Encounter Details Date Type Department Care Team Description 06/24/2016 Office Visit [facility] Deedee, Annalisa Tinnitus, left Clinic [place] JADEN Peacock CNP (Primary Dx) [address] [facility] [address] [place] [id number] Social History Tobacco Use Types Packs/Day Years [...] you attend scientologist or Patient refused 2021 roman catholic services? [...] Reading Time Taken Comments Blood Pressure 108/60 06/24/2016 11:53 AM VERTICAL BORER Pulse 98 06/24/2016 11:53 AM VERTICAL BORER Temperature 36.8 ??C (98.2 ??F) 06/24/2016 11:53 AM VERTICAL BORER Respiratory Rate 12 06/24/2016 11:53 AM VERTICAL BORER Oxygen Saturation 100% 06/24/2016 11:53 AM VERTICAL BORER Inhaled Oxygen Concentration - - Weight 58.5 kg (129 lb) 06/24/2016 11:53 AM VERTICAL BORER Height - - Body Mass Index 22.85 04/11/2016 2:07 PM CDT documented in this encounter Progress Annalisa Vicente, JADEN FORMING PRESS OPERATOR - 06/24/2016 11:54 AM CST SUBJECTIVE: Tameka Grissom is a 31 year old female who presents to clinic today for the following health issues: Ear problem ?? Duration: 2 weeks ?? Description (location/character/radiation): pressure in L ear ?? Intensity: No pain ?? Accompanying signs and symptoms: none ?? History (similar episodes/previous evaluation): None ?? Precipitating or alleviating factors: None ?? Therapies tried and outcome: None Able to hear heartbeat in left ear, bothersome mainly at night when trying to sleep. Increased anxiety with her . Denies nasal drainage, sinus pressure, ear drainage, loss of hearing, dizziness. : 20 weeks gestation, regular care. Tameka is concerned that this may be caused by a brain tumor. Denies any other symptoms such as headache, loss of hearing, dizziness, paresthesia. Problem list and histories reviewed & adjusted, [...] by mouth daily 100 tablet 3 ??? metroNIDAZOLE (FLAGYL) 250 MG tablet Take 1 tablet (250 mg) by mouth 3 times daily 21 tablet 0 ??? escitalopram (LEXAPRO) 20 MG tablet Take 1 tablet (20 mg) by mouth daily 90 tablet 1 Allergies Allergen Reactions ??? No Known Drug Allergies ROS: C: NEGATIVE for fever, chills, change in weight E/M: NEGATIVE for mouth and throat problems. See HPI R: NEGATIVE for significant cough or SOB CV: NEGATIVE for chest pain, palpitations OBJECTIVE: BP 108/60 mmHg Pulse 98 Temp(Src) 98.2 ??F (36.8 ??C) (Oral) Resp 12 Wt 129 lb (58.514 kg) SpO2 100% LMP 09/03/2015 (Exact Date) Body mass index is 22.86 kg/(m^2). GENERAL: healthy, alert and no distress HENT: ear canals with scant cerumen, after removal TM's normal, nose and mouth without ulcers or lesions NECK: no adenopathy, no asymmetry, masses, or scars and thyroid normal to palpation RESP: lungs clear to auscultation - no rales, rhonchi or wheezes CV: regular rate and rhythm, normal S1 S2, no S3 or S4, no murmur, click or rub, no peripheral edema ASSESSMENT: See below PLAN: Tameka was seen today for ear problem. Diagnoses and all orders for this visit: Tinnitus, left: Hearing screen with normal results, BP normal at 108/60. Discussed this is not uncommon during , wear headset at night, white noise. If symptoms get worse or develops any accompanying symptoms suggested follow up with ENT. - OTOLARYNGOLOGY REFERRAL - SCREENING TEST, PURE TONE, AIR ONLY - REMOVE IMPACTED CERUMEN FUTURE APPOINTMENTS: - Follow-up visit as needed. Annalisa Mark APRN CNP [facility] ICAL BORER documented in this encounter Nursing Notes Rajwinder Milton CMA - 06/24/2016 12:22 PM CST HEARING FREQUENCY: Right Ear: 500 Hz: 20 db HL 1000 Hz: 20 db HL 2000 Hz: 20 db HL 4000 Hz: 20 db HL Left Ear: 500 Hz: 20 db HL 1000 Hz: 20 db HL 2000 Hz: 20 db HL 4000 Hz: 20 db HL ICAL BORER Rajwinder Milton CMA - 06/24/2016 11:56 AM CST Chief Complaint Patient presents with ??? Ear Problem Initial BP 108/60 mmHg Pulse 98 Temp(Src) 98.2 ??F (36.8 ??C) (Oral) Resp 12 Wt 129 lb (58.514 kg) SpO2 100% LMP 09/03/2015 (Exact Date) Estimated body mass index is 22.86 kg/(m^2) as calculated from the following: Height as of 16: 5' 3 (1.6 m). Weight as of this encounter: 129 lb (58.514 kg). BP completed using cuff size: regular Rajwinder Milton CMA ICAL BORER documented in this encounter Plan of Treatment Scheduled Referrals Name Type Priority Associated Diagnoses [facility] Referral Routine Tinnitus, left Or dered: 06/24/2016 documented as of this encounter Procedures Procedure Name Priority Date/Time Associated Diagnosis Comme nts HC REMOVE IMPACTED Routine 06/24/2016 12:23 PM VERTICAL BORER Tinnitus, l eft CERUMEN HC SCREENING TEST, PURE Routine 06/24/2016 12:23 PM VERTICAL BORER Tinnit us, left TONE, AIR ONLY documented in this encounter Visit Diagnoses Diagnosis Tinnitus, left - Primary Unspecified tinnitus documented in this encounter Additional Health Concerns Assessment Noted Time PHQ-9 Depression Total Score: 5 04/22/2016 7:19 AM CDT documented as of this encounter Care Teams School Nurse Relationship Specialty Start Date End Date Annalisa Mark APRN FORMING PRESS OPERATOR PCP - General Nurse Practitioner 03/22/15 [address] [place] [address] documented as of this encounter
--- OUTSIDE RECORDS SUMMARY | 2022-06-06 21:04 | XMS_ITS | Encounter Summary ---
:1985 Author Organization [facility] Address [address] [place] [address]. [place] [address] Care Team Providers Name Role Phone DeedeeAnnalisa dean Madonna STANLEY CNP Primary Care Provider [phone] Reason for Visit Reason Comments Frequency Encounter Details Date Type Department Care Team Description 05/21/2016 Allied Health/Nurse [facility] Frequency Visit [place] [address] [place] [address] Social History Tobacco Use [...] or relatives? How often do you attend mormonism or Patient refused 2021 restorationism services? Do you belong to any clubs or No 10/17/2021 organizations such as mormonism groups, unions, fraternal or athletic groups, or [...] PM CDT documented as of this encounter Nursing Notes Marce Bazzi, FIELD MARKETING COORDINATOR - 05/21/2016 5:24 PM CDT Pt c/o urinary frequency and cloudy urine. Marce Bazzi MA documented in this encounter Plan of Treatment Not on filedocumented as of this encounter Procedures Procedure Name Priority Date/Time Associated Diagnosis Comme nts URINE CULTURE Routine 05/21/2016 5:25 PM Urinary frequency Res ults for this CDT procedure are i n the results section . documented in this encounter Results Urine Culture Aerobic Bacterial (05/21/2016 5:25 PM CDT) [facility] gist Method Time Signature Specimen Urine EMPIRE Description [facility] Culture Micro No growth [facility] Micro Report FINAL EMPIRE Status 05/23/2016 [facility] Specimen Anatomical Collection Method Collection Time Receive d Time (Source) Location / / Volume Laterality Urine specimen 05/21/2016 5:25 PM 016 6:39 (specimen) CDT PM CDT Pete Martin MD LAB - MICRO GENERAL ORDERABL ES Performing Organization Address City/State/ZIP Code Phon e Number [facility] [address] [place], [place] [address] [address] documented in this encounter Visit Diagnoses Diagnosis Urinary frequency - Primary documented in this encounter Additional Health Concerns Assessment Noted Time PHQ-9 Depression Total Score: 5 04/22/2016 7:19 AM CDT documented as of this encounter Care Teams Concrete Handler Relationship Specialty Start Date End Date Annalisa Mark APRN POWER DIGGER OPERATOR PCP - General Nurse Practitioner 03/22/15 [address] [place] [address] documented as of this encounter
--- OUTSIDE RECORDS SUMMARY | 2022-06-06 21:04 | XMS_ITS | Encounter Summary ---
:1985 Author Organization [facility] Address [address] [place] [address] Care Team Providers Name Role Phone Annalisa Marksalima STANLEY CNP Primary Care Provider [phone] Reason for Visit Reason Comments Ultrasound Bilateral PAID SEARCH MANAGER's on outside U S Encounter Details Date Type Department Care Team Description 07/22/2016 Office Visit [facility] Prudencio Baker MD [address] [place], [place] [address] Choroid plexus cyst of Maternal Teresa Michaud MD [address] [place], [place] [address] fetus, not applicable Medicine Center or unspecifi ed fetus [place] (Primary Dx) [address] [facility] [address] [place] [address] Social History Tobacco Use Types [...] you attend methodist or Patient refused 2021 anglican services? Do [...] encounter Progress Notes Teresa Michaud MD - 07/22/2016 2:40 PM CST Please see Imaging tab under Chart Review for details of today's US. Teresa Michaud INAL JUDGE documented in this encounter Plan of Treatment Not on filedocumented as of this encounter Visit Diagnoses Diagnosis Choroid plexus cyst of fetus, not applic able or unspecified fetus - Primary documented in this encounter Additional Health Concerns Assessment Noted Time PHQ-9 Depression Total Score: 5 04/22/2016 7:19 AM CDT documented as of this encounter Care Teams Furnace Combination Analyst Relationship Specialty Start Date End Date Annalisa Mark APRN EDUCATIONAL ASSISTANT PCP - General Nurse Practitioner 03/22/15 [address] [place] [address] documented as of this encounter
--- OUTSIDE RECORDS SUMMARY | 2022-06-06 21:04 | XMS_ITS | Encounter Summary ---
:1985 Author Organization [place] Address [facility] [place] [address] Care Team Providers Name Role Phone DeedeeSwapna deanarnulfo Peacock APRN, CNP Primary Care Provider [phone] Reason for Visit Reason Comments Fall Encounter Details Date Type Department Care Team Description 09/03/2016 Hospital Encounter [facility] Alecia Marks Indication for [facility] Birth[facility] MD Lucas in labor and [address] [facility], [address] jayne so (Primary [id number] NATHAN 212 Dx) [phone] [place], [place] [id number] Social History Tobacco Use Types Packs/Day Years [...] or relatives? How often do you attend oriental orthodox or Patient refused 2021 hindu services? Do you belong to any clubs or No 10/17/2021 organizations such as oriental orthodox groups, unions, fraternal or athletic groups, [...] slept in a senior living (including now)? Sex Assigned at Date Recorded Female 03/25/2021 2:01 PM CDT documented as of this encounter Last Filed Vital Signs Vital Sign Reading Time Taken Comments Blood Pressure 120/73 09/03/2016 9:37 PM MECHANIC INSULATOR Pulse 96 09/03/2016 9:37 PM MECHANIC INSULATOR Temperature 36.9 ??C (98.4 ??F) 09/03/2016 9:37 PM MECHANIC INSULATOR Respiratory Rate 18 09/03/2016 9:37 PM MECHANIC INSULATOR Oxygen Saturation - - Inhaled Oxygen Concentration - - Weight 63.5 kg (140 lb) 09/03/2016 9:37 PM MECHANIC INSULATOR Height 160 cm (5' 3) 09/03/2016 9:37 PM MECHANIC INSULATOR Body Mass Index 24.8 09/03/2016 9:37 PM MECHANIC INSULATOR documented in this encounter Discharge Instructions Discharge InstructionsFlorinda Velasco RN - 09/03/2016 11:09 PM CST Discharge Instruction for Undelivered Patients You were seen for: fall We Consulted: Dr. Marks You had (Test or Medicine): monitoring Diet: Drink 8 to 12 glasses of liquids (milk, juice, water) every day. You may eat meals and snacks. Activity: Call your doctor or nurse clerical office worker if your baby is moving less than [...] minutes apart for one hour or more. *If less than 34 weeks: Contractions (tightenings) more than 6 times in one hour. Increase or change in vaginal discharge (note the color and amount) Other: Ok To take a warm bath and extra strength tylenol as needed. Follow-up: As scheduled in the clinic ANIC INSULATOR documented in this encounter Medications at Time of Discharge Medication Sig Dispensed Refills Start Date End Date calcium carbonate (OS-TRUMAN Take 500 mg by 0 04/21/2017 500 MG [place]. [place]) 500 MG mouth 2 times daily [...] documented as of this encounter Progress Notes Florinda Velasco RN - 09/03/2016 11:20 PM CST Data: Patient presented to the Birthplace at 2135. Reason for maternal/ assessment per patient is Fall . Patient is a . record reviewed. Obstetric History T0 TAB0 SAB1 E0 M0 L0 # Outcome Date GA Lbr Chema/2nd Weight Sex Delivery Anes PTL Lv 2 Current 1 SAB Medical History: Past Medical History Diagnosis Date ??? Papanicolaou smear of cervix with low grade squamous intraepithelial lesion (LGSIL) 02/15/08, 08/01/08, 04/05/09, 08/28/09 ??? History of colposcopy with cervical biopsy 02/24/08 PEDRO I, 11/21/08 PEDRO I, 04/10/09 PEDRO I &II, ??? Mild major depression (H) ??? History of OCD (obsessive compulsive disorder) 01/29/2012 ??? Generalised anxiety disorder 01/29/2012 ??? Allergic rhinitis, seasonal ??? Breast disorder benign tumor removed in 1997 ??? Wounds and injuries fall in 09/03/16 . Gestational Age 30w3d. VSS. Cervix: not examined. movement present. Patient denies cramping,backache, vaginal discharge, pelvic pressure, UTI symptoms, GI problems, bloody show, vaginal bleeding, edema, headache, visual disturbances, epigastric or URQ pain, abdominal pain, rupture of membranes. Action: Verbal consent for EFM. Triage assessment completed. EFM applied for well being. Uterine assessment occasional contractions but mild in palpation and pt is not feeling them. assessment: Presumed adequate oxygenation documented (see flow record). Patient education given on movement counts and discharge instructions. Patient instructed to report change in movement,vaginal leaking of fluid or bleeding, abdominal pain, or any concerns related to the to her nurse/physician. Response: Dr. Marks informed of fht's, reactive nst. Plan per provider is to discharge to home. Patient verbalized understanding of education and verbalized agreement with plan. Discharged ambulatory at 2320. ANIC INSULATOR documented in this encounter Miscellaneous Notes Provider Notification - Florinda Velasco RN - 09/03/2016 11:05 PM MECHANIC INSULATOR 09/03/16 2300 Provider Notification Provider Name/Title Dr. Marks Method of Notification Phone Request Evaluate - Remote Notification Reason Status Update Dr. Marks notified of monitoring and reactive NST at 30w3d. No c/o bleeding or leakiing of fluid and pt is feeling baby move. Orders received to discharge to home and follow up at her next scheduled appointment. ANIC INSULATOR Plan of Care - Florinda Velasco RN - 09/03/2016 9:40 PM CST Data: [facility] Reason for maternal/ assessment per patient is fall. Patient reports She fell this evening at a resturaunt and when walking to the bathroom slipped on the tile and fell on her side and hit part of her abdomen. Patient is a . record reviewed. has been uncomplicated thus far. Gestational Age 30w3d. VSS. movement present. Patient denies contractions, backache, abnormal vaginal discharge, pelvic pressure, UTI symptoms, GI problems, bloody show, vaginal bleeding, edema, headache, visual disturbances, epigastric or URQ pain, abdominal pain, rupture of membranes. Action: Verbal consent for EFM. Triage assessment completed. Bill of rights reviewed. Response: Patient verbalized agreement with plan. Patient is in mac 1 , oriented to room and call light. Will contact MD for plan. Dr. Marks wanted to start with an hour of monitoring and then reevaluate. ANIC INSULATOR documented in this encounter Plan of Treatment Not on filedocumented as of this encounter Procedures Procedure Name Priority Date/Time Associated Diagnosis Comme nts NON-STRESS TEST - 09/03/2016 12:00 AM MECHANIC INSULATOR HIM SCAN documented in this encounter Results NON-STRESS TEST - HIM SCAN (09/03/2016 12:00 AM MECHANIC INSULATOR) Specimen (Source) Anatomical Location Collection Method / Collectio n Time Received Time / Laterality Volume 09/03/2016 Narrative This result has an attachment that is no t available. Provider Scan PROCEDURES documented in this encounter Visit Diagnoses Diagnosis Indication for care in labor and deliver y, antepartum - Primary Unspecified indication for care or inter vention related to labor and delivery, antepartum Indication for care in labor and deliver y, antepartum Unspecified indication for care or inter vention related to labor and delivery, antepartum documented in this encounter Active and Recently Administered Medications Additional Health Concerns Assessment Noted Time PHQ-9 Depression Total Score: 5 04/22/2016 7:19 AM CDT documented as of this encounter Care Teams Cold Press Loader Relationship Specialty Start Date End Date Annalisa Mark APRN STRADDLE CARRIER OPERATOR PCP - General Nurse Practitioner 03/22/15 [address] [place] [address] documented as of this encounter
--- OUTSIDE RECORDS SUMMARY | 2022-06-06 21:04 | XMS_ITS | Encounter Summary ---
:1985 Author Organization [place] Address [address] [place] [address]. [place] [address] Care Team Providers Name Role Phone Deedee Annalisaarnulfo Peacock APRN, CNP Primary Care Provider [phone] Reason for Visit Reason Comments Ultrasound Bilateral SHOES HAND SEWER on outside US Encounter Details Date Type Department Care Team Description 07/18/[address] [address] [facility] Ultrasoun d (Bilateral SHOES HAND SEWER Maternal Medicine on o utside US) [facility] [address] [place] [address] Social History Tobacco Use [...] you attend mormon or Patient refused 2021 pentecostal services? Do [...] documented as of this encounter Care Teams Pelt Shearer Relationship Specialty Start Date End Date Annalisa Mark APRN RN PHYSICIAN OFFICE PCP - General Nurse Practitioner 03/22/15 [address] [place] [address] documented as of this encounter
--- OUTSIDE RECORDS SUMMARY | 2022-06-06 21:04 | XMS_ITS | Encounter Summary ---
:1985 Author Organization [place] Address [address] [place] [address]. [place] [address] Care Team Providers Name Role Phone DeedeeAnnalisa dean Madonna STANLEY CNP Primary Care Provider [phone] Reason for Visit Reason Comments Care Encounter Details Date Type Department Care Team Description 08/07/2016 Allied Health/Nurse Health [facility] Care Visit [place] [address] [place] [address] Social History Tobacco Use [...] documented as of this encounter Nursing Notes Carlyn Dimas, EN - 08/07/2016 9:15 AM CST Nurse only glucose today. Carlyn Dimas CMA HYSICS PROFESSOR documented in this encounter Miscellaneous Notes Addendum Note - Valencia Collins LPN - 08/12/2016 10:57 AM BIOPHYSICS PROFESSOR Addended by: VALENCIA COLLINS on: 08/12/2016 10:57 AM Modules accepted: Orders HYSICS PROFESSOR documented in this encounter Plan of Treatment Not on filedocumented as of this encounter Procedures Procedure Name Priority Date/Time Associated Diagnosis Comme nts GLUCOSE TOLERANCE Routine 08/07/2016 9:36 AM care, fi rst Results for this GEST SCREEN 1 HOUR BIOPHYSICS PROFESSOR , second proc edure are in trimester the results section. ANTI TREPONEMA Routine 08/07/2016 9:36 AM care, first Results for this BIOPHYSICS PROFESSOR , second procedure are in trimester the results section. CBC WITH PLATELETS Routine 08/07/2016 9:36 AM care, f irst Results for this BIOPHYSICS PROFESSOR , second procedure are in trimester the results section. documented in this encounter Results Glucose tolerance gest std 100 gm 3 hr (08/13/2016 9:00 AM BIOPHYSICS PROFESSOR) P athologist Signature Glucose 71 60 - 94 [facility] Fasting 100 mg/dL [facility] Glucose 1 Hour 164 60 - 179 [facility] S 100 Grams mg/dL [facility] Glucose 2 Hour 151 60 - 154 [place] 100 Grams mg/dL [facility] Glucose 3 Hour 131 60 - 139 [place] 100 Grams mg/dL [facility] Specimen Anatomical Collection Method Collection Time Receive d Time (Source) Location / / Volume Laterality Blood specimen 08/13/2016 9:00 AM 017 9:06 (specimen) BIOPHYSICS PROFESSOR AM BIOPHYSICS PROFESSOR Pete Martin MD LAB - BLOOD ORDERABLES Performing Organization Address City/State/ZIP Code Phon e Number [facility] [address] [address] [facility] [address] [place], [place] [address] [facility] [address] [place] [address], U [phone] Anti Treponema (08/07/2016 9:36 AM BIOPHYSICS PROFESSOR) Analysis Performed At Patho logist Time Signature Treponema Negative NEG [facility] [place] Specimen Anatomical Collection Method Collection Time Receive d Time (Source) Location / / Volume Laterality Blood specimen 08/07/2016 9:36 AM 017 9:41 (specimen) BIOPHYSICS PROFESSOR AM BIOPHYSICS PROFESSOR Pete Martin MD LAB - BLOOD ORDERABLES Performing Organization Address City/State/ZIP Code Phon e Number [facility] [address] [place] [address] [facility] (ABNORMAL) CBC with platelets (08/07/2016 9:36 AM BIOPHYSICS PROFESSOR) Patholo gist Method Time Signature WBC 14.4 (H) 4.0 - 11.0 [place] 10e9/L [facility] RBC Count 3.58 (L) 3.8 - 5.2 [place] 10e12/L [facility] Hemoglobin 11.5 (L) 11.7 - [place] 15.7 g/dL [facility] Hematocrit 35.6 35.0 - [place] 47.0 % [facility] MCV 99 78 - 100 [facility] MCH 32.1 26.5 - [place] 33.0 pg [facility] MCHC 32.3 31.5 - [place] 36.5 g/dL [facility] RDW 12.7 10.0 - [place] 15.0 % [facility] Platelet Count 207 150 - 450 [place] 10e9/L [facility] Specimen Anatomical Collection Method Collection Time Receive d Time (Source) Location / / Volume Laterality Blood specimen 08/07/2016 9:36 AM 017 9:41 (specimen) BIOPHYSICS PROFESSOR AM BIOPHYSICS PROFESSOR Pete Martin MD LAB - BLOOD ORDERABLES Performing Organization Address City/State/ZIP Code Phon e Number [facility] [address] [place], [place] [address] [address] (ABNORMAL) Glucose tolerance, gest screen, 1 hour (08/07/2016 9:36 AM BIOPHYSICS PROFESSOR) P athologist Signature Glu Gest 161 (H) 60 - 129 [place] Screen 1hr 50g mg/dL [facility] Specimen Anatomical Collection Method Collection Time Receive d Time (Source) Location / / Volume Laterality Blood specimen 08/07/2016 9:36 AM 017 9:41 (specimen) BIOPHYSICS PROFESSOR AM BIOPHYSICS PROFESSOR Pete Martin MD LAB - BLOOD ORDERABLES Performing Organization Address City/State/ZIP Code Phon e Number [facility] [address] [phone] [facility] [address] [place] [address], [place] [phone] documented in this encounter Visit Diagnoses Diagnosis care, first , second t rimester - Primary High blood sugar Other abnormal glucose documented in this encounter Additional Health Concerns Assessment Noted Time PHQ-9 Depression Total Score: 5 04/22/2016 7:19 AM CDT documented as of this encounter Care Teams Flat Polisher Relationship Specialty Start Date End Date Annalisa Mark APRN DENTOFACIAL ORTHOPEDICS DENTIST PCP - General Nurse Practitioner 03/22/15 [address] [place] [address] documented as of this encounter
--- OUTSIDE RECORDS SUMMARY | 2022-06-06 21:04 | XMS_ITS | Encounter Summary ---
:1985 Author Organization [place] Address [address] [place] [address]. [place] [address] Care Team Providers Name Role Phone DeedeeAnnalisa dean Madonna STANLEY CNP Primary Care Provider [phone] Encounter Details Date Type Department Care Team Description 03/06/2016 Orders Only [facility] for supervision [facility] normal first , [address] [place] [address] [Z34.00] [phone] Social History Tobacco Use Types Packs/Day Years [...] you attend hindu or Patient refused 2021 hoahaoism services? Do [...] or slept in a usp (including now)? Sex Assigned at Date Recorded Female 03/25/2021 2:01 PM CDT documented as of this encounter Plan of Treatment Not on filedocumented as of this encounter Procedures Procedure Name Priority Date/Time Associated Diagnosis Comme nts HCG QUANTITATIVE STAT 03/06/2016 9:36 AM Encounter for Resu lts for this CDT supervision of procedure are in normal first the results , section. unspecified trimester [Z34.00] documented in this encounter Results HCG, quantitative, (03/06/2016 9:36 AM CDT) P athologist Signature HCG Quantitative 1,720 IU/L [facility] Comment: Non- ?0 - 5 , weeks from LMP: ??1 - 10 weeks ? 64 - 151,000 IU/L 11 - 15 weeks 11,800 - 152,000 IU/L 16 - 22 weeks ??9,380 - 61,400 IU/L 23 - 40 weeks ??1,740 - 98,600 IU/L Specimen Anatomical Collection Method Collection Time Receive d Time (Source) Location / / Volume Laterality Blood specimen 03/06/2016 9:36 AM 016 9:41 (specimen) CDT AM CDT Pete Martin MD LAB - BLOOD ORDERABLES Performing Organization Address City/State/ZIP Code Phon e Number M [facility] [address] [address] [facility] [address] [phone] documented in this encounter Visit Diagnoses Diagnosis Encounter for supervision of normal firs t , unspecified trimester [Z34.00] documented in this encounter Additional Health Concerns Assessment Noted Time PHQ-9 Depression Total Score: 8 09/26/2015 8:00 AM BIODIESEL PLANT MANAGER documented as of this encounter Care Teams Doughnut Icer Relationship Specialty Start Date End Date Annalisa Mark APRN STOCK WETTER PCP - General Nurse Practitioner 03/22/15 [address] [place] [address] documented as of this encounter
--- OUTSIDE RECORDS SUMMARY | 2022-06-06 21:04 | XMS_ITS | Encounter Summary ---
:1985 Author Organization [place] Address [address] [place] [address]. [place] [address] Care Team Providers Name Role Phone DeedeeAnnalisa dean Madonna STANLEY CNP Primary Care Provider [phone] Reason for Visit Reason Comments Care Encounter Details Date Type Department Care Team Description 06/09/2016 Office [facility] Pete Martin care, first , unspecified trimester (Primary Dx); Visit [facility] MD Alexandre Need for prop hylactic vaccination and inoculation against influenza [address] [place] [address] Social History Tobacco Use Types [...] you attend restoration or Patient refused 2021 jehovah's witness services? Do you belong to any clubs [...] Reading Time Taken Comments Blood Pressure 100/58 06/09/2016 3:52 PM BACK PANEL PADDER Pulse - - Temperature - - Respiratory Rate - - Oxygen Saturation - - Inhaled Oxygen Concentration - - Weight 57.7 kg (127 lb 3.2 oz) 06/09/2016 3:52 PM BACK PANEL PADDER Height - - Body Mass Index 22.53 04/11/2016 2:07 PM CDT documented in this encounter Progress Notes Marce Keller CMA - 06/09/2016 4:21 PM CST Injectable Influenza Immunization Documentation 1. Is the person to be vaccinated sick today? No 2. Does the person to be vaccinated have an allergy to eggs or to a component of the vaccine? No 3. Has the person to be vaccinated today ever had a serious reaction to influenza vaccine in the past? No 4. Has the person to be vaccinated ever had Guillain-[place] syndrome? No Form completed by Marce Keller MA PANEL PADDER Pete Martin - 06/09/2016 4:11 PM CST Discussed flu vaccine. PANEL PADDER documented in this encounter Nursing Notes Marce Keller CMA - 06/09/2016 3:54 PM CST Chief Complaint Patient presents with ??? Care 18w1d Having quad. Marce Keller MA Initial BP 100/58 mmHg Wt 127 lb 3.2 oz (57.698 kg) LMP 09/03/2015 (Exact Date) Estimated body mass index is 22.54 kg/(m^2) as calculated from the following: Height as of 04/11/16: 5' 3 (1.6 m). Weight as of this encounter: 127 lb 3.2 oz (57.698 kg). BP completed using cuff size: regular PANEL PADDER documented in this encounter Miscellaneous Notes Addendum Note - Marce Keller CMA - 06/09/2016 4:21 PM BACK PANEL PADDER Addended by: MARCE KELLER on: 06/09/2016 04:21 PM Modules accepted: Orders, SmartSet PANEL PADDER documented in this encounter Plan of Treatment Not on filedocumented as of this encounter Procedures Procedure Name Priority Date/Time Associated Diagnosis Comme nts MATERNAL QUAD Routine 06/09/2016 4:23 PM care, first Results for this MARKER 2ND BACK PANEL PADDER , procedure are i n TRIMESTER unspecified the results trimester section. CBC WITH PLATELETS Routine 06/09/2016 4:23 PM care, f irst Results for this BACK PANEL PADDER , procedure are i n unspecified the results trimester section. documented in this encounter Results (ABNORMAL) CBC with platelets (06/09/2016 4:23 PM BACK PANEL PADDER) P athologist Signature WBC 14.4 (H) 4.0 - 11.0 WEIR 10e9/L [facility] Comment: Results confirmed by repeat corazon t RBC Count 3.46 (L) 3.8 - 5.2 10e12/L [facility] Comment: Results confirmed by repeat corazon t Hemoglobin 11.0 (L) 11.7 - 15.7 g/dL [facility] Comment: Results confirmed by repeat corazon t Hematocrit 33.5 (L) 35.0 - 47.0 % [facility] MCV 97 78 - 100 fl [facility] M[facility] 31.8 26.5 - 33.0 pg [facility] MCHC 32.8 31.5 - 36.5 g/dL [facility] [place] RDW 12.7 10.0 - 15.0 % [facility] Platelet Count 208 150 - 450 10e9/L [facility] Specimen Anatomical Collection Method Collection Time Receive d Time (Source) Location / / Volume Laterality Blood specimen 06/09/2016 4:23 PM 016 4:28 (specimen) BACK PANEL PADDER PM BACK PANEL PADDER Pete Martin MD LAB - BLOOD ORDERABLES Performing Organization Address City/State/ZIP Code Phon e Number [facility] [address] [place] [address] [address] Maternal quad screen (06/09/2016 4:23 PM BACK PANEL PADDER) Patholo gist Method Time Signature Pt Date of 1985 WEIR [facility] Patient Weight 127 LBS 3.2 WEIR OZ [facility] Due Date 11/01/2015 [facility] Dating Method ULTRASOUND [facility] Last Mens 01/27/2016 WEIR Period [facility] Twins [place]ENO [facility] Race of Mother [facility] Diabetic at NO WEIR Conception [facility] Fam History Of NO WEIR NTD [facility] Prev Hx NO WEIR Chromosome [facility] Abnormality [place] Alpha Feto 38 WEIR Protein [facility] Comment: Unit: ng/mL MoM for AFP 0.78 [facility] BHCG 25,271 [facility] Comment: Unit: IU/L MoM For HCG 0.96 [facility] Estriol 2.32 [facility] Comment: Unit: ng/mL MoM uE3 1.48 [facility] AFP Interpretation Normal [facility] CL [facility] (Note) ?Maternal Serum Quad Screen (AFP/hCG/uE3/DARVIN) ? NORMAL SCREEN Risks ? Pre-test ?Post-test ? (Cu toff) Open NTD ?1 in 900 ? <1 in [address]3294 Down Syndrome ?? 1 in 530 ?1 in 1500 ? (1 in 150 ) Trisomy 18 ?1 in 5300 ?<1 in [address]006 ?(1 in 10 0) Assuming the patient information listed is correct, this maternal serum screen is within normal limits. ??The interpretation is based on maternal age, gestational age, maternal weight, the presence or absence of insulin requiring maternal diabetes, maternal race, and number of fetuses, if known. Specimen Iteration First WE[facility] CL [facility] Maternal Age 32.6 [facility] Comment: Unit: yr Dating US [facility] Estimated Due Date [id number] [facility] Gest Age Exact 18.14 [facility] Comment: Unit: weeks Patient Weight 127 [facility] Comment: Unit: lbs Insulin Diabetic No [facility] Fam History of NTD No [facility] Prev Hx Chromosome abnormality No [facility] Maternal Race White [facility] Num of Fetuses One [facility] Dimeric Inhibin A 297 [facility] Comment: Unit: pg/mL MoM Dimeric Inhibin A 1.76 [facility] Electronic Enhanced Report SEE NOTE [facility] (Note) [place] Access [employer] Enhanced Report using either link below: -Direct access: [email or web address] [email or web address] -Enter Username, Password: [email or web address] of a Guest Username: [email or web address] Password: [email or web address] Performed by [facility], [address] [place] [id number] [email or web address], Branden Gutierrez MD, Lab. Director Specimen Anatomical Collection Method Collection Time Receive d Time (Source) Location / / Volume Laterality Blood specimen 06/09/2016 4:23 PM 016 4:28 (specimen) BACK PANEL PADDER PM BACK PANEL PADDER Pete Martin MD LAB - BLOOD ORDERABLES Performing Organization Address City/State/ZIP Code Phon e Number [facility] [address] [place], [place] [address] [address] documented in this encounter Visit Diagnoses Diagnosis care, first , unspecif ied trimester - Primary Need for prophylactic vaccination and in oculation against influenza documented in this encounter Additional Health Concerns Assessment Noted Time PHQ-9 Depression Total Score: 5 04/22/2016 7:19 AM CDT documented as of this encounter Care Teams Apprentice Cook Relationship Specialty Start Date End Date Annalisa Mark APRN WEIGHT TRAINING INSTRUCTOR PCP - General Nurse Practitioner 03/22/15 [address] [place] [address] documented as of this encounter
--- OUTSIDE RECORDS SUMMARY | 2022-06-06 21:04 | XMS_ITS | Encounter Summary ---
:1985 Author Organization [place] Address [address] [place] [address]. [place] [address] Care Team Providers Name Role Phone DeedeeSwapna deanarnulfo Peacock APRN, CNP Primary Care Provider [phone] Encounter Details Date Type Department Care Team Description 08/13/2016 Orders Only [facility] Pre care, first , second trimester; [facility] High blood sugar [address] [place] [address] Social History Tobacco Use [...] you attend yarsanism or Patient refused 2021 mu-ism services? Do you belong to any clubs [...] Associated Diagnosis Comme nts GLUCOSE TOLERANCE Routine 08/13/2016 9:00 AM care, fi rst Results for this GEST STD 100 GM 3 APPLICATIONS PROGRAMMER ANALYST , second proce dure are in HR trimester the results High blood sugar section. documented in this encounter Results Glucose tolerance gest std 100 gm 3 hr (08/13/2016 9:00 AM APPLICATIONS PROGRAMMER ANALYST) P athologist Signature Glucose 71 60 - 94 [facility] Fasting 100 mg/dL [place] [facility] Glucose 1 Hour 164 60 - 179 [facility] S 100 Grams mg/dL [facility] Glucose 2 Hour 151 60 - 154 [place] 100 Grams mg/dL [facility] Glucose 3 Hour 131 60 - 139 [place] 100 Grams mg/dL [facility] Specimen Anatomical Collection Method Collection Time Receive d Time (Source) Location / / Volume Laterality Blood specimen 08/13/2016 9:00 AM 017 9:06 (specimen) APPLICATIONS PROGRAMMER ANALYST AM APPLICATIONS PROGRAMMER ANALYST Pete Martin MD LAB - BLOOD ORDERABLES Performing Organization Address City/State/ZIP Code Phon e Number [facility] [address] [place] [phone] [facility] [address] [place], [place] [address] [facility] [address] [address], [facility] [phone] documented in this encounter Visit Diagnoses Diagnosis care, first , second t rimester High blood sugar Other abnormal glucose documented in this encounter Additional Health Concerns Assessment Noted Time PHQ-9 Depression Total Score: 5 04/22/2016 7:19 AM CDT documented as of this encounter Care Teams Manager Pool Relationship Specialty Start Date End Date Annalisa Mark APRN AIR INTERCEPT CONTROLLER SUPERVISOR PCP - General Nurse Practitioner 03/22/15 [address] [place] [address] documented as of this encounter
--- OUTSIDE RECORDS SUMMARY | 2022-06-06 21:05 | XMS_ITS | Encounter Summary ---
:1985 Author Organization [place] Address [facility] [place] [address] Care Team Providers Name Role Phone Jose Dumont MD Primary Care Provider Reason for Visit Reason Onset Date Comments Letter Out 09/26/2014 pap due Encounter Details Date Type Department Care Team Description [facility] ter Out (pap due[facility] MD Robb [address] [place] [phone] Social History Tobacco Use Types Packs/Day Years [...] you attend advent or Patient refused 2021 synagogue services? Do [...] Telephone Encounter - Pamella Chapman RN - 12/13/2014 9:44 AM CDT Pt had pap done on 10/20/14. Geronimo Chapman RN Telephone Encounter - Pamella Chapman RN - 10/19/2014 3:00 PM CDT Pt has an jeffrey with Dr. Martin on 10/20/14. Geronimo Chapman RN Telephone Encounter - Pamella Chapman RN - 09/26/2014 11:06 AM CST Letter sent to pt reminding her that she is due for a pap smear. Geronimo Chapman RN UTIVE DIRECTOR SHELTERED WORKSHOP documented in this encounter Plan of Treatment Not on filedocumented as of this encounter Visit Diagnoses Not on filedocumented in this encounter Care Teams Galvanometer Assembler Relationship Specialty Start Date End Date Jose Dumont MD PCP - General Family Practice 01/29/12 03/20/15 [address] [id number] documented as of this encounter
--- OUTSIDE RECORDS SUMMARY | 2022-06-06 21:05 | XMS_ITS | Encounter Summary ---
:1985 Author Organization [place] Address [address] [place] [address]. [place] [address] Care Team Providers Name Role Phone Jose Dumont MD Primary Care Provider Reason for Visit Reason Onset Date Comments Medication Question 06/24/2014 Encounter Details Date Type Department Care Team Description 06/24/2014 Telephone [facility] Annalisa Mark ication Question Norman MadonnaJADEN [address] [address] [phone] (Wo rk) Social History Tobacco Use Types [...] you attend nondenominational or Patient refused 2021 bahai services? Do [...] this encounter Miscellaneous Notes Telephone Encounter - Casie Joe RN - 06/24/2014 9:04 AM CST Pt calling with questions about Lexapro, she read insert and there was no mention of us for OCD and this was reason RX was given to pt. Pt was reassured that Lexapr can be used to treat OCD. She should try medication, it can cause some increased anxiety in the first several days but the side effects will clear. If not doing well with medication call back to clinic otherwise f/u as planned. Casie Joe RN DING ROOM FIXER documented in this encounter Plan of Treatment Not on filedocumented as of this encounter Visit Diagnoses Not on filedocumented in this encounter Care Teams Activities Aide Relationship Specialty Start Date End Date Jose Dumont MD PCP - General Family Practice 01/29/12 03/20/15 [address] [place] [id number] documented as of this encounter
--- OUTSIDE RECORDS SUMMARY | 2022-06-06 21:05 | XMS_ITS | Encounter Summary ---
:1985 Author Organization [place] Address [facility] [place] [address] Care Team Providers Name Role Phone Annalisa Mark APRN, CNP Primary Care Provider Reason for Visit Reason Onset Date Comments No Show 05/18/2015 Encounter Details Date Type Department Care Team Description 05/18/2015 Office Visit [facility] Annalisa Mark NO SHOW (P rimary Dx) [facility] [place] JADEN Peacock FOUNDRY PROCESS ENGINEER [address] [address] [phone] Social History Tobacco Use Types Packs/Day Years [...] you attend confucianist or Patient refused 2021 taoist services? Do [...] Progress Notes Annalisa Mark APRN CNP - 05/18/2015 8:49 PM CDT This patient was a no show for this scheduled appointment. documented in this encounter Plan of Treatment Not on filedocumented as of this encounter Visit Diagnoses Diagnosis NO SHOW - Primary documented in this encounter Additional Health Concerns Assessment Noted Time PHQ-9 Depression Total Score: 7 03/23/2015 7:14 AM CDT documented as of this encounter Care Teams Operating Theatre Technician Relationship Specialty Start Date End Date Annalisa Mark APRN CNP PCP - General Nurse Practitioner 03/22/15 [address] [place] [address] documented as of this encounter
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
--- OUTSIDE RECORDS SUMMARY | 2022-06-06 21:05 | XMS_ITS | Encounter Summary ---
:1985 Author Organization [place] Address [address] [place] [address]. [place] [address] Care Team Providers Name Role Phone Annalisa Mark APRN, CNP Primary Care Provider [phone] Reason for Visit Reason Onset Date Comments Nurse Advice Line 12/18/2015 Encounter Details Date Type Department Care Team Description 12/18/2015 Telephone [facility] Annalisa Mark se Advice Line [place] JADEN Peacock SOLAR PANEL INSTALLATION SUPERVISOR [id number] [place] [id number] [phone] (Wo rk) Social History Tobacco Use Types [...] you attend sikh or Patient refused 2021 latter day services? [...] this encounter Miscellaneous Notes Telephone Encounter - Cindy Zaldivar - 12/18/2015 10:24 AM CDT appt made Cindy Zaldivar/Gravel Screener Telephone Encounter - Annalisa Mark APRN CNP - 12/18/2015 10:22 AM CDT I can see her at 1145. Nancy, Annalisa Mark CNP Telephone Encounter - Taqueria Young RN - 12/18/2015 10:05 AM CDT Forwarded to Annalisa. See Lync text Taqueria Young RN Telephone Encounter - Taqueria Young RN - 12/18/2015 9:58 AM CDT Patient calls requests OV with Annalisa. Recent miscarriage at 6 weeks. No ER or Supervisor Matrix visit during or since. Now feeling bloated and generally not feeling well. Offered appointment with other provider, (no 30 min visits with Annalisa). Patient declines visit. I will figure something else out. Frustrated? Taqueria Young RN documented in this encounter Plan of Treatment Not on filedocumented as of this encounter Visit Diagnoses Not on filedocumented in this encounter Additional Health Concerns Assessment Noted Time PHQ-9 Depression Total Score: 8 09/26/2015 8:00 AM REPAIRER WOOD FURNITURE documented as of this encounter Care Teams Homeowner Association Manager Relationship Specialty Start Date End Date Annalisa Mark APRN CNP PCP - General Nurse Practitioner 03/22/15 [address] [place] [address] documented as of this encounter
--- OUTSIDE RECORDS SUMMARY | 2022-06-06 21:05 | XMS_ITS | Encounter Summary ---
:1985 Author Organization [place] Address [facility]0 [facility] [place] [address] Care Team Providers Name Role Phone DeedeeAnnalisa dean Madonna STANLEY CNP Primary Care Provider [phone] Encounter Details Date Type Department Care Team Description 03/23/2015 Virtual Visit [facility] [place] Patrica Joseph, [address] [place] [address] [address] [place] [address] Social History Tobacco Use Types Packs/Day Years [...] you attend scientologist or Patient refused 2021 jehovah's witness services? [...] documented as of this encounter Progress Notes Patrica Joseph PA-C - 03/23/2015 7:30 PM CDT Date: Clinician: Patrica Joseph Clinician Patient: Tameka Grissom Patient : 1985 Patient Address: [address] [place] [address] [place] [id number] Patient Visit Protocol: UTI Patient Summary: Tameka is a 29 year old ( : 1985 ) female who initiated a Zip for a presumed bladder infection. When asked the question Do you have a [place] primary care physician?, Tameka responded Yes. Her symptoms began yesterday and consist of foul smelling urine, urgency, frequency, urinary incontinence, dysuria, and hesitation. Symptom Details Urinary Frequency: every 2-3 hours She denies flank pain, anorexia, bladder spasms, abdominal pain, chills, fever, recent antibiotic use, hematuria, nausea, vaginal discharge, malaise, and vomiting. She has not been hospitalized or hada catheter in the past month. She denies risk factors for sexually transmitted infections. Tameka has had one (1) UTI in the past year. Her last UTI was more than 6 months ago and her current symptomsare similar to the previous UTI symptoms. She took an antibiotic for her last infection but does notremember which one. Tameka does not have a medication preference. She is not and denies or . Her period recently ended. She does NOT smoke or use smokeless tobacco. CURRENT MEDICATIONS: control pill and escitalopram (Lexapro) ALLERGIES: NKDA Clinician Response: Dear Tameka, Based on the information you have provided, you likely have a bladder infection, also called an acute urinary tract infection (UTI). To treat your infection, I am prescribing: Nitrofurantoin (Macrobid). Swallow one (1) tablet twice a day for 5 days. Take the tablet with food. Continue taking the tablets even if you feel better before all the medicine is gone. There is no refill with this prescription. To treat your discomfort with urination, I am recommending an [id number] medication called Phenazopyridine (Pyridium). Swallow one (1) tablet three times a day for 2 days. Take the pills after a meal. You will notice that Pyridium adds an orange/red color to your urine which may stain fabric. If your skin or the whites of your eyes develop a yellowish color, it may indicate that your kidneys are not correctly removing the medication. Although this is uncommon, stop using the Pyridium and immediately contact your clinic if this happens. To help treat your current UTI and prevent future occurrences remember to: Drink 8-10, 8-ounce glasses of water daily. Urinate after sexual intercourse. Wipe front to back after using the bathroom. Drinking cranberry juice also may reduce the risk of another bladder infection by preventing bacteria from sticking to your bladder wall. Sometimes women develop a yeast infection while taking antibiotics. If you notice yeast infection symptoms, you can use Zipnosis for treatment. Some people develop allergies to antibiotics. If you notice a new rash, significant swelling or difficulty breathing, stop the medicine immediately and go into a clinic for physical evaluation. You should visit a clinic for a follow-up visit if your symptoms do not improve in 1-2 days or if you experience another urinary tract infection soon after completing this treatment. If you become during this course of treatment with medication, stop taking the medication and contact your primary care provider. Diagnosis: Acute Uncomplicated Bladder Infection Diagnosis ICD: 599.0 Prescription: nitrofurantoin (Macrobid) 100mg oral tablet 10 tablets, 5 days supply. Take one tabletby mouth two times a day for 5 days, 0 refills. Refills: 0, Refill as needed: no, Allow substitutions: yes Prescription Sent At: March 23 19:37:2014 Pharmacy: [facility] [id number] - - [address] [place] [address] documented in this encounter Plan of Treatment Not on filedocumented as of this encounter Visit Diagnoses Not on filedocumented in this encounter Additional Health Concerns Assessment Noted Time PHQ-9 Depression Total Score: 7 03/23/2015 7:14 AM CDT documented as of this encounter Care Teams Punch Hand Relationship Specialty Start Date End Date Annalisa Mark APRN CNP PCP - General Nurse Practitioner 03/22/15 [address] [place] [address] documented as of this encounter
--- OUTSIDE RECORDS SUMMARY | 2022-06-06 21:05 | XMS_ITS | Encounter Summary ---
:1985 Author Organization [place] Address [address] [place] [address]. [place] [address] Care Team Providers Name Role Phone Annalisa Mark APRN, CNP Primary Care Provider [phone] Reason for Visit Reason Onset Date Comments Nurse Advice Line 12/04/2015 vag bleed in pregnan cy Encounter Details Date Type Department Care Team Description 12/04/2015 Telephone [facility] Annalisa Mark Nurse Advi ce Line (vag Clinic [place] JADEN Peacock CNP bleed in ) [address] [address] [phone] Social History Tobacco Use Types Packs/Day Years [...] you attend methodist or Patient refused 2021 presybeterian services? Do [...] Encounter - Annalisa Mark APRN CNP - 12/07/2015 8:40 AM CDT Spoke with Tameka, has had normal bleeding this week, Light flow today. Will wait for 2 months and again try to get . Annalisa Mark CNP Telephone Encounter - Seema Galvin RN - 12/04/2015 4:15 PM CDT Pt called for HCG Quant. Informed level was 4 - not in lab chart. Sympathies given to pt. Informed pt that I would route this through to Annalisa so that Annalisa can expand on findings/discuss more when back in office. Seema Galvin RN Telephone Encounter - Seema Galvin RN - 12/04/2015 11:01 AM CDT Tameka called back, SH in her office so transferred through. Seema Galvin RN Telephone Encounter - Annalisa Mark APRN CNP - 12/04/2015 11:00 AM CDT Left a message for Tameka to return my call. Telephone Encounter - Taqueria Young RN - 12/04/2015 9:25 AM CDT Patient calls and reports 12/03/15 positive test in clinic Came in because was spotting dark brown vag discharge for 2 weeks test positive Woke this morning with cramping and bright red blood on toilet tissue. Is not saturating pads Patient declines ER, If I am having a miscarriage what good would it do? Patient requests Annalisa's advise [phone] Taqueria Young, RN documented in this encounter Plan of Treatment Not on filedocumented as of this encounter Visit Diagnoses Not on filedocumented in this encounter Additional Health Concerns Assessment Noted Time PHQ-9 Depression Total Score: 8 09/26/2015 8:00 AM ORDER RUNNER documented as of this encounter Care Teams Slot Machine Department Floorperson Relationship Specialty Start Date End Date Annalisa Mark APRN LEAD GAME DESIGNER PCP - General Nurse Practitioner 03/22/15 [address] [place] [address] documented as of this encounter
--- OUTSIDE RECORDS SUMMARY | 2022-06-06 21:05 | XMS_ITS | Encounter Summary ---
:1985 Author Organization [place] Address [address] [place] [address]. [place] [address] Care Team Providers Name Role Phone Jose Dumont MD Primary Care Provider Reason for Visit Reason Onset Date Comments Refill Request 08/14/2014 ocp Encounter Details Date Type Department Care Team Description 08/14/2014 Refill [facility] [place], Refill Request (ocp) Clinic [facility] [address] [place] [address] Social History Tobacco Use Types Packs/Day Years [...] you attend denominational or Patient refused 2021 yarsanism services? Do [...] this encounter Miscellaneous Notes Telephone Encounter - Mervat Antunez RN - 08/14/2014 10:29 AM OVERNIGHT CASHIER Pt needs refill of ocp. Last annual 10/10/13. Refilled per protocol. Mervat Antunez, CHRIST NIGHT CASHIER documented in this encounter Plan of Treatment Not on filedocumented as of this encounter Visit Diagnoses Diagnosis Contraception - Primary Unspecified contraceptive management documented in this encounter Care Teams Web Mobile Designer Relationship Specialty Start Date End Date Jose Dumont MD PCP - General Family Practice 01/29/12 03/20/15 [address] [id number] documented as of this encounter
--- OUTSIDE RECORDS SUMMARY | 2022-06-06 21:05 | XMS_ITS | Encounter Summary ---
:1985 Author Organization [place] Address [facility] [place] [address] Care Team Providers Name Role Phone Deedee, Annalisa Carcamoe JADEN ADVERTISING STRATEGIST Primary Care Provider [phone] Reason for Visit (Routine) - Closed Specialty Diagnoses / Procedures Referred By Contact Refer red To Contact Radiology / Diagnoses epic, sb pt, Rh Ultrasound cc Radiology. Procedures US PELVIC COMP W TRANSVAGINAL [address] [place] [address] Phone: Fax: Referral ID Status Reason Start Date Expiration Date Visits Requ ested Visits Authorized [id number] Closed 12/20/2015 12/19/2016 1 1 Encounter Details Date Type Department Care Team Description 12/20/2015 Hospital Encounter [facility] DeedeeAnnalisa ic pain; [facility] JADEN Peacock History of miscarriage, not currently Care Center Imaging [facility] [address] [facility] [id number] Social History Tobacco Use Types Packs/Day Years [...] you attend episcopalian or Patient refused 2021 uatsdin services? Do you belong to any clubs or No 10/17/2021 organizations such as episcopalian groups, unions, fraCompology or athletic groups, or school groups? How [...] Other acute otitis for 7 days. externa clotrimazole-betamethaso Apply topically 2 30 g 1 11/2503/04/2016 ne (LOTRISONE) times daily creamIndications: Eczema of external ear, bilateral desonide (DESOWEN) 0.05 Apply sparingly to 15 g 0 02/2503/04/2016 % ointmentIndications: affected area three Dermatitis times daily for 14 days. escitalopram (LEXAPRO) Take 1 tablet (20 90 tablet 1 201406/24/2016 20 MG tabletIndications: mg) by mouth daily Major depressive disorder, recurrent episode, mild (H) documented as of this encounter Plan of Treatment Not on filedocumented as of this encounter Procedures Procedure Name Priority Date/Time Associated Comments Diagnosis US PELVIC Routine 12/20/2015 3:17 PM Pelvic pain Results for this TRANSABDOMINAL AND CDT History of procedure are in TRANSVAGINAL miscarriage, not the results currently section. documented in this encounter Results US Pelvic Complete w Transvaginal (12/20/2015 3:17 PM CDT) Anatomical Region Laterality Modality Abdomen/Pelvis Ultrasound Specimen (Source) Anatomical Location Collection Method / Collectio n Time Received Time / Laterality Volume Narrative 12/20/2015 3:22 PM CDT PELVIC ULTRASOUND 12/20/2015 3:17 PM HISTORY: Pelvic and perineal pain. Bloat ing. COMPARISON; none TECHNIQUE: Transabdominal and endovagina l technique to better visualize endometrial stripe and adnexa. FINDINGS: Normal-appearing uterus 6.9 x 3.6 x 4.6 cm in size with normal-appearing 0.7 cm endometrial stri pe. No fibroids. Both ovaries appear normal with flow. No adnexal mass or free fluid. Color flow is identified in both ovaries . IMPRESSION; 1.Normal pelvic ultrasound. ADRIENNE WISE MD Procedure Note Adrienne Wise MD - 12/20/2015For matting of this note might be different from the original. PELVIC ULTRASOUND 12/20/2015 3:17 PM HISTORY: Pelvic and perineal pain. Bloat ing. COMPARISON; none TECHNIQUE: Transabdominal and endovagina l technique to better visualize endometrial stripe and adnexa. FINDINGS: Normal-appearing uterus 6.9 x 3.6 x 4.6 cm in size with normal-appearing 0.7 cm endometrial stri pe. No fibroids. Both ovaries appear normal with flow. No adnexal mass or free fluid. Color flow is identified in both ovaries . IMPRESSION; 1.Normal pelvic ultrasound. ADRIENNE WISE MD Annalisa Mark APRN, CNP IMG US ORDERABLES documented in this encounter Visit Diagnoses Diagnosis Pelvic pain Unspecified symptom associated with fema le genital organs History of miscarriage, not currently pr egnant documented in this encounter Additional Health Concerns Assessment Noted Time PHQ-9 Depression Total Score: 8 09/26/2015 8:00 AM CALL WORKER PERSON documented as of this encounter Care Teams Logging Supervisor Relationship Specialty Start Date End Date Annalisa Mark APRN CNP PCP - General Nurse Practitioner 03/22/15 [address] [place] [address] documented as of this encounter
--- OUTSIDE RECORDS SUMMARY | 2022-06-06 21:05 | XMS_ITS | Encounter Summary ---
:1985 Author Organization [place] Address [address] [place] [address]. [place] [address] Care Team Providers Name Role Phone Annalisa Mark APRN, CNP Primary Care Provider [phone] Reason for Visit Reason Onset Date Comments Results 12/20/2015 US Encounter Details Date Type Department Care Team Description 12/20/2015 Telephone [employer] Annalisa Mark, Results (US) [facility] [address] [phone] [place] [address] (Wo rk) Social History Tobacco [...] you attend voodoo or Patient refused 2021 faith services? Do [...] Encounter - Annalisa Mark APRN CNP - 12/21/2015 8:32 AM CDT Called and informed of normal ultrasound result. Annalisa Mark CNP Telephone Encounter - Rosalind Marquis RN - 12/20/2015 3:17 PM CDT Pt calls. She was to get an US. She just did it. She is wondering if she can contact her before the . Please call at [phone]. documented in this encounter Plan of Treatment Not on filedocumented as of this encounter Visit Diagnoses Not on filedocumented in this encounter Additional Health Concerns Assessment Noted Time PHQ-9 Depression Total Score: 8 09/26/2015 8:00 AM FILM MAKER documented as of this encounter Care Teams Nursing Staff Development Coordinator Relationship Specialty Start Date End Date Annalisa Mark APRN CNP PCP - General Nurse Practitioner 03/22/15 [address] [facility] [place] [address] documented as of this encounter
--- OUTSIDE RECORDS SUMMARY | 2022-06-06 21:05 | XMS_ITS | Encounter Summary ---
:1985 Author Organization [place] Address [facility] [place] [address] Care Team Providers Name Role Phone Annalisa Mark APRN, CNP Primary Care Provider [phone] Reason for Visit Reason Comments Ear Problem Recheck Medication lexapro STD screening Encounter Details Date Type Department Care Team Description 03/22/2015 Office Visit [facility] Annalisa Mark Major depr essive disorder, recurrent episode, mild (H) (Primary Dx); Clinic [place] JADEN Peacock Contraception; [address] [facility] Routine gynecological examination; [place] [address] [facility] Moderate dysplasia of cervix; [address] [place], [place] Screen for STD (sexually tra nsmitted disease); [phone] [address] Dermatitis; [phone] Insomnia (Work) Social History Tobacco Use Types Packs/Day Years [...] you attend methodist or Patient refused 2021 evangelical services? Do [...] Reading Time Taken Comments Blood Pressure 102/68 03/22/2015 4:59 PM CDT Pulse 94 03/22/2015 4:59 PM CDT Temperature 36.4 ??C (97.6 ??F) 03/22/2015 4:59 PM CDT Respiratory Rate 10 03/22/2015 4:59 PM CDT Oxygen Saturation - - Inhaled Oxygen Concentration - - Weight 52.6 kg (116 lb) 03/22/2015 4:59 PM CDT Height - - Body Mass Index 20.55 07/21/2014 10:06 AM CARE DIRECTOR documented in this encounter Patient Instructions Patient InstructionsAnnalisa Mark APRN GUNITE MIXER - 03/22/2015 5:20 PM CDT Images from the original note were not included. Insomnia Insomnia refers to a difficulty going to sleep or staying asleep, or both. Insomnia has many causes,including anxiety, stress, depression, chronic pain, sleeping cycles out of balance due to working night shifts or excess napping during the day, and a condition called ???sleep apnea?? . Insomnia can be a side effect from stimulant medicines such as decongestants, asthma inhalers and pills, diet pills, and illegal drugs such as speed, crank, crack, and PCP. Home Care: 1. Review your medicines with your doctor or pharmacist to find out if they can cause insomnia. 2. Caffeine, smoking and alcohol also affect sleep. Limit your daily use and do not use these beforebedtime. Alcohol may make you sleepy at first, but as its effects wear off, you may awaken a few hours later and have trouble returning to sleep. 3. Do not exercise, eat or drink large amounts of liquid within 2 hours of your bedtime. 4. Improve your sleep habits. Have a fixed bed and wake-up time. Try to keep noise, light and heat in your bedroom at a comfortable level. Try using earplugs or eyeshades if needed.?? 5. Avoid watching TV in bed. 6. If you do not fall asleep within 30 minutes, try to relax by reading or listening to soft music. 7. Limit daytime napping to one 30 minute period, early in the day. 8. Get regular exercise. Find other ways to lessen your stress level. 9. If a medicine was prescribed to help reset your sleep patterns, take it as directed. Sleeping pills are intended for short-term use, only. If taken for too long, the effect wears off while the risk of physical addiction and psychological dependence increases. Follow-Up with your doctor or as directed by our staff if you feel that your insomnia is not responding to theabove measures. Get Prompt Medical Attention if any of the following occur: ?? Extreme restlessness or irritability ?? Confusion or hallucinations (seeing or hearing things that are not there) ?? Anxiety, depression ?? Several days without sleeping ?? [id number] [employer]. [address] [place] [address]. All rights reserved. This information is not intended as a substitute for professional medical care. Always follow your healthcare professional's instructions. documented in this encounter Progress Notes Annalisa Mark APRN CNP - 03/22/2015 4:58 PM CDT SUBJECTIVE: Tameka Grissom is a 29 year old female who presents to clinic today for the following health issues: Ear problem ?? Duration: 2 months ?? Description (location/character/radiation): dry skin on both ears ?? Intensity: Mild itching ?? Accompanying signs and symptoms: none ?? History (similar episodes/previous evaluation): None ?? Precipitating or alleviating factors: None ?? Therapies tried and outcome: None Insomnia: Difficulty with staying asleep, going to sleep at 10:00, no trouble going to sleep. Wakes up at 0200, awake for 30-45 min. Gets out of bed at 0630. Feels tired during the day. Has had this issue for several months. Has taken advil pm or tylenol pm with relief. Anixety is well controlled withlexapro. GAD7 score of 11 PHQ 9 score of 7. Will be starting a new job on 04/04, will not have insurance for several months. STD screen: requests screening for STD's, asymptomatic. Problem list and histories reviewed & adjusted, [...] Outpatient Prescriptions Medication Sig Dispense Refill ??? norethindrone-ethinyl estradiol-iron (JUNEL FE ) 1.5-30 MG-MCG tablet Take 1 tablet by mouth daily 3 Package 2 ??? escitalopram (LEXAPRO) 20 MG tablet Take 1 tablet (20 mg) by mouth daily 90 tablet 1 ??? hydrOXYzine (ATARAX) 25 MG tablet Take 1-2 tablets (25-50 mg) by mouth every 6 hours as needed for anxiety 60 tablet 1 Allergies Allergen Reactions ??? No Known Drug Allergies ROS: C: NEGATIVE for fever, chills, change in weight E/M: NEGATIVE for mouth and throat problems. See HPI R: NEGATIVE for significant cough or SOB CV: NEGATIVE for chest pain, palpitations or peripheral edema : see HPI PSYCHIATRIC: NEGATIVE for changes in mood or affect OBJECTIVE: BP 102/68 mmHg Pulse 94 Temp(Src) 97.6 ??F (36.4 ??C) (Oral) Resp 10 Wt 116 lb (52.617 kg) Body mass index is 20.55 kg/(m^2). GENERAL: healthy, alert and no distress HENT: opening to bilateral ear canals with dry and scaly skin, ear canals normal, TM's normal, nose and mouth without ulcers or lesions NECK: no adenopathy, no asymmetry, masses, or scars and thyroid normal to palpation RESP: lungs clear to auscultation - no rales, rhonchi or wheezes CV: regular rate and rhythm, normal S1 S2 (female): normal female external genitalia, vaginal mucosa, normal cervix/adnexa/uterus withoug masses or discharge PSYCH; Alert, oriented, bright ASSESSMENT: See below PLAN: Tameka was seen today for ear problem, recheck medication and std. Diagnoses and associated orders for this visit: Major depressive disorder, recurrent episode, mild - escitalopram (LEXAPRO) 20 MG tablet; Take 1 tablet (20 mg) by mouth daily Insomnia: Discussed taking melatonin 3 mg every hs. Screen for STD (sexually transmitted disease) - Neisseria gonorrhoeae PCR - Chlamydia trachomatis PCR - HIV Antigen Antibody Combo - Anti Treponema - Wet prep - Hepatitis B surface antigen - Hepatitis C antibody Dermatitis, external ear canal - desonide (DESOWEN) 0.05 % ointment; Apply sparingly to affected area three times daily for 14 days. FUTURE APPOINTMENTS: - Follow-up visit in 6 months for anxiety check Annalisa Mark APRN CNP [facility] documented in this encounter Nursing Notes Rajwinder [place] CMA - 03/22/2015 5:01 PM CDT Chief Complaint Patient presents with ??? Ear Problem ??? Recheck Medication lexapro ??? STD screening Initial BP 102/68 mmHg Pulse 94 Temp(Src) 97.6 ??F (36.4 ??C) (Oral) Resp 10 Wt 116 lb (52.617 kg) Estimated body mass index is 20.55 kg/(m^2) as calculated from the following: Height as of 14: 5' 3 (1.6 m). Weight as of this encounter: 116 lb (52.617 kg). BP completed using cuff size: regular Rajwinder [place] CMA documented in this encounter Plan of Treatment Not on filedocumented as of this encounter Procedures Procedure Name Priority Date/Time Associated Diagnosis Comme nts WET PREPARATION Routine 03/22/2015 5:30 PM Screen for STD Resu lts for this CDT (sexually procedure are i n transmitted disease) the res ults section. NEISSERIA Routine 03/22/2015 5:30 PM Screen for STD Results for this GONORRHOEAE PCR CDT (sexually procedure ar e in transmitted disease) the res ults section. CHLAMYDIA Routine 03/22/2015 5:30 PM Screen for STD Results for this TRACHOMATIS PCR CDT (sexually procedure ar e in transmitted disease) the res ults section. HIV ANTIGEN ANTIBODY Routine 03/22/2015 5:29 PM Screen for STD Results for this COMBO CDT (sexually procedure are i n transmitted disease) the res ults section. HEPATITIS C ANTIBODY Routine 03/22/2015 5:29 PM Screen for STD Results for this CDT (sexually procedure are i n transmitted disease) the res ults section. HEPATITIS B SURFACE Routine 03/22/2015 5:29 PM Screen for STD Results for this ANTIGEN CDT (sexually procedure are i n transmitted disease) the res ults section. ANTI TREPONEMA Routine 03/22/2015 5:29 PM Screen for STD Resul ts for this CDT (sexually procedure are i n transmitted disease) the res ults section. documented in this encounter Results Wet prep (03/22/2015 5:30 PM CDT) [facility] Method Time Signature Specimen Vagina [facility] Description [facility] Wet Prep No Trichomonas seen [place] No clue cells seen [facility] No yeast seen [place] Micro Report FINAL [place] Status 03/22/2015 [facility] Specimen Anatomical Collection Method Collection Time Receive d Time (Source) Location / / Volume Laterality 03/22/2015 5:30 PM 5 5:36 CDT PM CDT Annalisa Mark APRN GUNITE MIXER LAB - MICRO GENERAL ORDER ALLI Performing Organization Address City/State/ZIP Code Phon e Number [facility] [address] [place] [address] Chlamydia trachomatis PCR (03/22/2015 5:30 PM CDT) Component Value Ref Test Analysis Performed At [facility] [place] Method Time Signature Specimen Cervical [facility] Chlamydia Negative NEG [facility] Trachomatis Negative for C. trachomatis rRNA by marine equipment design engineer mediated amplification. [place] [facility] A negative result by transc ription mediated amplification does not preclude the [facility] presence of C. trachomatis infection because re sults are dependent on proper BANK and adequate collection, absence of inhibitors, and suffici ent rRNA to be detected. Specimen (Source) Anatomical Collection Method Collection Time Re ceived Time Location / / Volume Laterality Endocervical swab 03/22/2015 5:30 015 5:37 (procedure) PM CDT PM CDT Annalisa Mark APRN GUNITE MIXER LAB - MICRO GENERAL ORDER ALLI Performing Organization Address City/[facility] Code Phon e Number [facility] [address] [address] Neisseria gonorrhoeae PCR (03/22/2015 5:30 PM CDT) Component Value Ref Test Analysis Performed At [facility] [place] Method Time Signature Specimen Cervical [facility] N Gonorrhea Negative NEG [facility] PCR Negative for N. gonorrhoeae rRNA by transcripti on mediated amplification. [facility] A negative result by transc ription mediated amplification does not preclude the [facility] presence of N. gonorrhoeae infection because re sults are dependent on proper BANK and adequate collection, absence of inhibitors, and suffici ent rRNA to be detected. Specimen (Source) Anatomical Collection Method Collection Time Re ceived Time Location / / Volume Laterality Endocervical swab 03/22/2015 5:30 015 5:37 (procedure) PM CDT PM CDT Annalisa Mark APRN, CNP LAB - MICRO GENERAL ORDER ALLI Performing Organization Address City/[facility] Code Phon e Number [facility] [address] [address] Hepatitis C antibody (03/22/2015 5:29 PM CDT) Component Value Ref Test Analysis Performed At [facility] [place] Method Time Signature Hepatitis C Nonreactive NR [facility] Antibody Assay performance character istics have not been established for newborns, [place] [facility] infants, and children [facility] Specimen Anatomical Collection Method Collection Time Receive d Time (Source) Location / / Volume Laterality Blood specimen 03/22/2015 5:29 PM 015 5:30 (specimen) CDT PM CDT Annalisa Mark APRN, CNP LAB - BLOOD ORDERABLES Performing Organization Address City/[facility]/ZIP Code Phon e Number [address] [address] [place] Hepatitis B surface antigen (03/22/2015 5:29 PM CDT) Patholo gist Method Time Signature Hep B Surface Nonreactive NR [facility] Specimen Anatomical Collection Method Collection Time Receive d Time (Source) Location / / Volume Laterality Blood specimen 03/22/2015 5:29 PM 015 5:30 (specimen) CDT PM CDT Annalisa Mark APRN, CNP LAB - BLOOD ORDERABLES Performing Organization Address City/[facility]/ZIP Code Phon e Number [address] [address] [place] Anti Treponema (03/22/2015 5:29 PM CDT) Analysis Performed At Patho logist Time Signature Treponema Negative NEG [facility] Antibody [facility] Specimen Anatomical Collection Method Collection Time Receive d Time (Source) Location / / Volume Laterality Blood specimen 03/22/2015 5:29 PM 015 5:30 (specimen) CDT PM CDT Annalisa Mark APRN, CNP LAB - BLOOD ORDERABLES Performing Organization Address City/[facility] Code Phon e Number [address] [address] [place] HIV Antigen Antibody Combo (03/22/2015 5:29 PM CDT) Patholo gist Method Time Signature HIV Antigen Nonreactive NR [facility] HIV-1 p24 Ag & HIV-1/HIV-2 Ab Not Detected [facility] Combo [facility] Specimen Anatomical Collection Method Collection Time Receive d Time (Source) Location / / Volume Laterality Blood specimen 03/22/2015 5:29 PM 015 5:30 (specimen) CDT PM CDT Annalisa Mark APRN, CNP LAB - BLOOD ORDERABLES Performing Organization Address City/State/ZIP Code Phon e Number [facility] [address] [place], [place] [id number] [place] [address] documented in this encounter Visit Diagnoses Diagnosis Major depressive disorder, recurrent epi sode, mild (H) - Primary Major depressive disorder, recurrent epi sode, mild Contraception Unspecified contraceptive management Routine gynecological examination Moderate dysplasia of cervix Screen for STD (sexually transmitted dis ease) Screening examination for venereal disea se Dermatitis Contact dermatitis and other eczema, due to unspecified cause Insomnia Insomnia, unspecified documented in this encounter Additional Health Concerns Assessment Noted Time PHQ-9 Depression Total Score: 7 03/23/2015 7:14 AM CDT documented as of this encounter Care Teams Transfer Agent Relationship Specialty Start Date End Date Annalisa Mark APRN CNP PCP - General Nurse Practitioner 03/22/15 [address] [place] [address] documented as of this encounter
--- OUTSIDE RECORDS SUMMARY | 2022-06-06 21:05 | XMS_ITS | Encounter Summary ---
:1985 Author Organization [place] Address [address] [place] [address]. [place] [address] Care Team Providers Name Role Phone Jose Dumont MD Primary Care Provider Reason for Visit Reason Onset Date Comments Referral 02/19/2015 Encounter Details Date Type Department Care Team Description 02/19/2015 Telephone [facility] Women's Pete Martin MD Referral Clinic [place] [address] [place] [address] Social History Tobacco Use [...] you attend yazidism or Patient refused 2021 latter day services? [...] Telephone Encounter - Mervat Antunez RN - 02/19/2015 6:44 PM CDT [place] Last Written Prescription Date: 10/20/14 Last Fill Quantity: 1, # refills: 2 Last Office Visit with [facility] primary care provider: 10/20/14 Prescription approved per [facility] Refill Protocol. documented in this encounter Plan of Treatment Not on filedocumented as of this encounter Visit Diagnoses Diagnosis Contraception - Primary Unspecified contraceptive management Routine gynecological examination Moderate dysplasia of cervix documented in this encounter Care Teams Potato Chip Cooker Machine Relationship Specialty Start Date End Date Jose Dumont MD PCP - General Family Practice 01/29/12 03/20/15 [address] [place] [address] documented as of this encounter
--- OUTSIDE RECORDS SUMMARY | 2022-06-06 21:05 | XMS_ITS | Encounter Summary ---
:1985 Author Organization [place] Address [facility] [address] Care Team Providers Name Role Phone Annalisa Mark APRN, CNP Primary Care Provider [phone] Reason for Visit Reason Onset Date Comments RECHECK follow up from 016 visit Pre Visit Planning - Done No Show 12/09/2015 Encounter Details Date Type Department Care Team Description 12/06/2015 Office Visit [facility] Annalisa Mark NO SHOW (P rimary Dx) Clinic [place] JADEN Peacock CARE TRANSPORT NURSE [address] [address] [phone] Social History Tobacco Use Types Packs/Day Years [...] or relatives? How often do you attend christian or Patient refused 2021 zoroastrian services? Do you belong to any clubs or No 10/17/2021 organizations such as christian groups, unions, fraternal or athletic groups, or [...] Progress Notes Annalisa Mark APRN CNP - 12/09/2015 7:04 PM CDT This patient was a no show for this scheduled appointment. documented in this encounter Plan of Treatment Not on filedocumented as of this encounter Visit Diagnoses Diagnosis NO SHOW - Primary documented in this encounter Additional Health Concerns Assessment Noted Time PHQ-9 Depression Total Score: 8 09/26/2015 8:00 AM SAFETY AND HEALTH MANAGER documented as of this encounter Care Teams Machine Bobbin Winder Relationship Specialty Start Date End Date Annalisa Mark APRN CNP PCP - General Nurse Practitioner 03/22/15 [address] [place] [address] documented as of this encounter
--- OUTSIDE RECORDS SUMMARY | 2022-06-06 21:05 | XMS_ITS | Encounter Summary ---
:1985 Author Organization [place] Address [facility] access hospital0 [facility] [place] [address] Care Team Providers Name Role Phone DeedeeAnnalisa dean Madonna STANLEY CNP Primary Care Provider [phone] Reason for Referral - Closed Specialty Diagnoses / Procedures Referred By Contact Refer red To Contact Diagnoses Encounter for supervision of normal first , unspecified trimester Ri Nurse [address] [place] [address] Referral ID Status Reason Start Date Expiration Date Visits Requ ested Visits Authorized [id number] Closed 03/04/2016 03/04/2017 1 1 Reason for Visit Reason Comments Care Encounter Details Date Type Department Care Team Description 03/04/2016 Office [facility] er for Visit Clinic [place] supervision of normal [address] first , [place], [place] unspecified t rimester [id number] [Z34.00] (Primary Dx) [phone] Social History Tobacco Use Types Packs/Day Years [...] you attend catholic or Patient refused 2021 jew services? Do [...] Sign Reading Time Taken Comments Blood Pressure 118/70 03/04/2016 9:44 AM CDT Pulse - - Temperature 36.9 ??C (98.5 ??F) 03/04/2016 9:44 AM CDT Respiratory Rate - - Oxygen Saturation - - Inhaled Oxygen Concentration - - Weight 53.6 kg (118 lb 3.2 oz) 03/04/2016 9:44 AM CDT Height 160 cm (5' 3) 03/04/2016 9:44 AM CDT Body Mass Index 20.94 03/04/2016 9:44 AM CDT documented in this encounter Progress Notes Marce Keller CMA - 03/04/2016 10:37 AM CDT NPN documented in this encounter Nursing Marce Sanchez CMA - 03/04/2016 10:06 AM CDT Chief Complaint Patient presents with ??? Care NPN nurse.5w2d Pt will be seeing Dr Martin, pap is not due. Desires 1st trimester screening, order placed. Marce Keller MA Initial BP 118/70 mmHg Temp(Src) 98.5 ??F (36.9 ??C) (Oral) Ht 5' 3 (1.6 m) Wt 118 lb 3.2 oz (53.615 kg) BMI 20.94 kg/m2 LMP 09/03/2015 (Exact Date) Estimated body mass index is 20.94 kg/(m^2) as calculated from the following: Height as of this encounter: 5' 3 (1.6 m). Weight as of this encounter: 118 lb 3.2 oz (53.615 kg). BP completed using cuff size: regular documented in this encounter Miscellaneous Notes Addendum Note - Marce Keller CMA - 03/04/2016 2:24 PM CDT Addended by: MARCE KELLER on: 03/04/2016 02:24 PM Modules accepted: Orders documented in this encounter Plan of Treatment Scheduled Referrals Name Type Priority Associated Diagnoses Order S chedule [facility] Referral Routine Encounter for supervisi on Ordered: 03/04/2016 REFERRAL- of normal first pregna ncy, unspecified trimester [Z34.00] documented as of this encounter Procedures Procedure Name Priority Date/Time Associated Diagnosis Comme nts RUBELLA ANTIBODY IGG Routine 03/04/2016 11:07 Encounter for Re sults for this AM CDT supervision of procedure are in normal first the results , section. unspecified trimester [Z34.00] HIV ANTIGEN ANTIBODY Routine 03/04/2016 11:07 Encounter for Re sults for this COMBO AM CDT supervision of procedure are in normal first the results , section. unspecified trimester [Z34.00] HEPATITIS B SURFACE Routine 03/04/2016 11:07 Encounter for Res ults for this ANTIGEN AM CDT supervision of procedure are in normal first the results , section. unspecified trimester [Z34.00] HCG QUANTITATIVE STAT 03/04/2016 11:07 Encounter for Result s for this AM CDT supervision of procedure are in normal first the results , section. unspecified trimester [Z34.00] ANTI TREPONEMA Routine 03/04/2016 11:07 Encounter for Results for this AM CDT supervision of procedure are in normal first the results , section. unspecified trimester [Z34.00] CBC WITH PLATELETS Routine 03/04/2016 11:07 Encounter for Resu lts for this AM CDT supervision of procedure are in normal first the results , section. unspecified trimester [Z34.00] ABO/RH TYPE AND Routine 03/04/2016 11:06 Encounter for Results for this SCREEN AM CDT supervision of procedure are in normal first the results , section. unspecified trimester [Z34.00] URINE CULTURE Routine 03/04/2016 10:20 Encounter for Results f or this AM CDT supervision of procedure are in normal first the results , section. unspecified trimester [Z34.00] HCL HCG, URINE, NURSE Routine 03/04/2016 Encounter for Resul ts for this BACKOFFICE supervision of procedure are in normal first the results , section. unspecified trimester [Z34.00] documented in this encounter Results (ABNORMAL) US OB <14 Weeks w Transvaginal Single (03/13/2016 11:41 AM CDT) Anatomical Region Laterality Modality Abdomen/Pelvis Ultrasound Specimen (Source) Anatomical Location Collection Method / Collectio n Time Received Time / Laterality Volume Narrative 03/15/2016 1:36 PM CDT [facility] Obstetrics & Gynecology [address] [place] [address] ULTRASOUND - EARLY OB (0-11 WEEKS) Referring Provider: Pete Martin MD Clinic: [facility] INDICATIONS FOR ULTRASOUND: OB History: Hx - [...] viability. PETE MARTIN M.D. Pete Martin MD [facility] ORDERABLES HCG, quantitative, (03/06/2016 9:36 AM CDT) P athologist Signature HCG Quantitative 1,720 IU/L [facility] Comment: Non- ?0 - 5 , weeks [...] Address City/State/ZIP Code Phon e Number [place] [address] [address] [place] [phone] HCG, quantitative, (03/04/2016 11:07 AM CDT) P athologist Signature HCG Quantitative 998 IU/L [facility] Comment: Non- ?0 - 5 , weeks from LMP: ??1 - 10 weeks ? 64 - 151,000 IU/L 11 - 15 weeks 11,800 - 152,000 IU/L 16 - 22 weeks ??9,380 - 61,400 IU/L 23 - 40 weeks ??1,740 - 98,600 IU/L Specimen Anatomical Collection Method Collection Time Receive d Time (Source) Location / / Volume Laterality Blood specimen 03/04/2016 11:07 6 (specimen) AM CDT 11:12 AM CDT Pete Martin MD LAB - BLOOD ORDERABLES Performing Organization Address City/State/ZIP Code Phon e Number [facility] [address] [place], [place] [address] [facility] [address] [place], [place] [address] [facility] [phone] Anti Treponema (03/04/2016 11:07 AM CDT) Analysis Performed At Patho logist Time Signature Treponema Negative NEG [facility] Specimen Anatomical Collection Method Collection Time Receive d Time (Source) Location / / Volume Laterality Blood specimen 03/04/2016 11:07 6 (specimen) AM CDT 11:12 AM CDT Pete Martin MD LAB - BLOOD ORDERABLES Performing Organization Address City/State/ZIP Code Phon e Number [facility] [address] [place] [address] [facility] Hepatitis B surface antigen (03/04/2016 11:07 AM CDT) Patholo gist Method Time Signature Hep B Surface Nonreactive NR [facility] Specimen Anatomical Collection Method Collection Time Receive d Time (Source) Location / / Volume Laterality Blood specimen 03/04/2016 11:07 6 (specimen) AM CDT 11:12 AM CDT Pete Martin MD LAB - BLOOD ORDERABLES Performing Organization Address City/[facility]/ZIP Code Phon e Number [facility] [address] [place] [address] [place] Rubella Antibody IgG Quantitative (03/04/2016 11:07 AM CDT) Analysis Performed At Patho logist Time Signature Rubella Antibody 74 IU/mL [facility] IgG [facility] Comment: Positive. ??Suggests previous exposure o r immunization and probable immunity Reference Range: ?? Unvaccinated Negative 0-7 IU/mL Vaccinated or previous exposure Positiv e 10 IU/ml or greater Specimen Anatomical Collection Method Collection Time Receive d Time (Source) Location / / Volume Laterality Blood specimen 03/04/2016 11:07 6 (specimen) AM CDT 11:12 AM CDT Pete Martin MD LAB - BLOOD ORDERABLES Performing Organization Address City/State/ZIP Code Phon e Number [facility] [address] [place] [address] [facility] HIV Antigen Antibody Combo (03/04/2016 11:07 AM CDT) [facility] Method Time Signature HIV Antigen Nonreactive NR [facility] Antibody HIV-1 p24 Ag & HIV-1/HIV-2 Ab Not Detected [facility] Combo [place] [facility] Specimen Anatomical Collection Method Collection Time Receive d Time (Source) Location / / Volume Laterality Blood specimen 03/04/2016 11: 6 (specimen) AM CDT 11:12 AM CDT Pete Martin MD LAB - BLOOD ORDERABLES Performing Organization Address City/[facility]/ZIP Code Phon e Number [facility] [address] [place] [address] [place] CBC WITH PLATELETS (03/04/2016 11:07 AM CDT) athologist Signature WBC 10.1 4.0 - 11.0 [place] 10e9/L [facility] RBC Count 4.11 3.8 - 5.2 [place] 10e12/L [facility] Hemoglobin 13.0 11.7 - [place] 15.7 g/dL [facility] Hematocrit 39.8 35.0 - [facility] 47.[facility] % [facility] MCV 97 78 - 100 [place] fl [facility] MCH 31.6 26.5 - [facility] 33.0 pg [facility] MCHC 32.7 31.5 - [place] 36.5 g/dL [facility] RDW 12.2 10.0 - [place] 15.0 % [facility] Platelet Count 246 150 - 450 [place] 10e9/L [facility] Specimen Anatomical Collection Method Collection Time Receive d Time (Source) Location / / Volume Laterality Blood specimen 03/04/2016 11: 6 (specimen) AM CDT 11:12 AM CDT Pete Martin MD LAB - BLOOD ORDERABLES Performing Organization Address City/State/ZIP Code Phon e Number [facility] [address] [place], [place] [address] [address] ABO/RH TYPE AND SCREEN (03/04/2016 11:06 AM CDT) [facility] gist Method Time Signature ABO A [facility] RH(D) Pos [facility] Antibody Neg [facility] Test Valid [facility] Only At [facility] HOSPITAL Specimen 03/07/2016 [facility] Specimen Anatomical Collection Method Collection Time Receive d Time (Source) Location / / Volume Laterality Blood specimen 03/04/2016 11:06 6 (specimen) AM CDT 11:11 AM CDT Pete Martin MD LAB - BLOOD BANK TEST ORDER Performing Organization Address City/State/ZIP [facility] Phon e Number [facility] [address] [place], [place] [address] [facility] [address] [place], [place] [address] [phone] Urine Culture Aerobic Bacterial (03/04/2016 10:20 AM CDT) [facility] Method Time Signature Specimen [facility] Urine [facility] Culture Micro <10,000 INFECTIOUS colonies/mL DISEASE urogenital [facility] Micro Report FINAL INFECTIOUS Status 03/06/2016 DISEASE [facility] Specimen Anatomical Collection Method Collection Time Receive d Time (Source) Location / / Volume Laterality Urine specimen 03/04/2016 10:20 6 (specimen) AM CDT 11:25 AM CDT Pete Martin MD LAB - MICRO GENERAL ORDERABL ES Performing Organization Address City/State/ZIP [facility] Phon e Number INFECTIOUS DISEASES [address] [place] [address] DIAGNOSTIC LABORATORY, [facility] [address] [place] [address] [place] [address] INFECTIOUS DISEASE [address] [place] [address], [facility] DIAGNOSTIC LABORATORY HCL HCG, URINE, NURSE BACKOFFICE (03/04/2016) athologist Signature hCG, Qual positive [facility] Urine LAB Specimen (Source) Anatomical Location Collection Method / Collectio n Time Received Time / Laterality Volume 03/04/2016 Pete Martin MD LABORATORY Performing Organization Address City/State/ZIP Code Phon e Number [facility] documented in this encounter Visit Diagnoses Diagnosis Encounter for supervision of normal firs t , unspecified trimester [Z34.00] - Primary Encounter for supervision of normal firs t , unspecified trimester [Z34.00] documented in this encounter Additional Health Concerns Assessment Noted Time PHQ-9 Depression Total Score: 8 09/26/2015 8:00 AM 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
--- OUTSIDE RECORDS SUMMARY | 2022-06-06 21:05 | XMS_ITS | Encounter Summary ---
:1985 Author Organization [place] Address [facility] [place] [address] Care Team Providers Name Role Phone Annalisa Mark APRN, CNP Primary Care Provider [phone] Reason for Visit Reason Comments Urinary Problem Encounter Details Date Type Department Care Team Description 09/25/2015 Office Visit [facility] Annalisa Mark Urinary pr oblem (Primary Dx); [facility] [place] JADEN Peacock CNP Irregular menses [id number] [facility] [id number] [place] [address] [phone] Social History Tobacco Use Types Packs/Day Years [...] you attend advent or Patient refused 2021 baptism services? Do [...] Sign Reading Time Taken Comments Blood Pressure 120/60 09/25/2015 9:19 AM [employer] Pulse 82 09/25/2015 9:19 AM [employer] Temperature 36.8 ??C (98.2 ??F) 09/25/2015 9:19 AM [employer] Respiratory Rate 10 09/25/2015 9:19 AM [employer] Oxygen Saturation - - Inhaled Oxygen Concentration - - Weight 54.9 kg (121 lb) 09/25/2015 9:19 AM [employer] Height 160 cm (5' 3) 09/25/2015 9:19 AM [employer] Body Mass Index 21.43 09/25/2015 9:19 AM [employer] documented in this encounter Progress Notes Annalisa Mark, JADEN ROTARY FILTER OPERATOR - 09/25/2015 9:19 AM CST SUBJECTIVE: Tameka Grissom is a 30 year old female who presents to clinic today for the following health issues: URINARY TRACT SYMPTOMS ?? Duration: 2 weeks ?? Description frequency and bloated ?? Intensity: No pain ?? Accompanying signs and symptoms: Fever/chills: no Flank pain YES, intermittent Nausea and vomiting: YES, nausea. Vaginal symptoms: none Abdominal/Pelvic Pain: YES ?? History History of frequent UTI's: YES History of kidney stones: no Sexually Active: YES Possibility of : YES ?? Precipitating or alleviating factors: None ?? Therapies tried and outcome: azo, last took 2 weeks ago Actively trying to conceive, LMP 09/03/2015 Depression: PHQ 9 score of 8, is currently not taking lexapro feeling increase in anxiety. Problem list and histories reviewed & adjusted, as indicated. Additional history: as documented Patient Active Problem List Diagnosis ??? Mild major depression ??? CARDIOVASCULAR SCREENING; LDL GOAL LESS THAN 160 ??? LGSIL on Pap smear ??? History of OCD (obsessive compulsive disorder) ??? Generalized anxiety disorder Past Surgical History Procedure Laterality [...] Outpatient Prescriptions Medication Sig Dispense Refill ??? desonide (DESOWEN) 0.05 % ointment Apply sparingly to affected area three times daily for 14 days. 15 g 0 ??? fluconazole (DIFLUCAN) 150 MG tablet Take 1 tablet today, may repeat in 7 days if symptoms continue. 2 tablet 0 ??? escitalopram (LEXAPRO) 20 MG tablet Take 1 tablet (20 mg) by mouth daily 90 tablet 1 ??? norethindrone-ethinyl estradiol-iron (JUNE FE ) 1.5-30 MG-MCG tablet Take 1 tablet by mouth daily 3 Package 2 ??? hydrOXYzine (ATARAX) 25 MG tablet Take 1-2 tablets (25-50 mg) by mouth every 6 hours as needed for anxiety 60 tablet 1 Allergies Allergen Reactions ??? No Known Drug Allergies ROS: C: NEGATIVE for fever, chills, change in weight CV: NEGATIVE for chest pain, palpitations or peripheral edema : see HPI OBJECTIVE: BP 120/60 mmHg Pulse 82 Temp(Src) 98.2 ??F (36.8 ??C) (Oral) Resp 10 Ht 5' 3 (1.6 m) Wt 121 lb (54.885 kg) BMI 21.44 kg/m2 LMP 09/03/2015 (Exact Date) Body mass index is 21.44 kg/(m^2). GENERAL: healthy, alert and no distress NECK: no adenopathy, no asymmetry, masses, or scars and thyroid normal to palpation RESP: lungs clear to auscultation - no rales, rhonchi or wheezes CV: regular rate and rhythm, normal S1 S2, ABDOMEN: soft, nontender, no hepatosplenomegaly, no masses and bowel sounds normal. No CVA tenderness. ASSESSMENT: See below PLAN: Tameka was seen today for urinary problem. Diagnoses and all orders for this visit: Urinary problem: Informed that urine was negative for leuk esterace and nitrites, patient informed. Orders: - *UA reflex to Microscopic and Culture ([facility] [place] [facility] (except [place]) - Wet prep Irregular menses, negative patient informed. Discussed taking vitamins on a daily basis. Orders: - Beta HCG qual IFA urine FUTURE APPOINTMENTS: - Follow-up visit as needed if symptoms worsen or do not improve. Annalisa Mark APRN CNP [facility] [employer] documented in this encounter Nursing Notes Rajwinder [place] CMA - 09/25/2015 9:23 AM CST Chief Complaint Patient presents with ??? Urinary Problem Initial BP 120/60 mmHg Pulse 82 Temp(Src) 98.2 ??F (36.8 ??C) (Oral) Resp 10 Ht 5' 3 (1.6 m) Wt 121 lb (54.885 kg) BMI 21.44 kg/m2 Estimated body mass index is 21.44 kg/(m^2) as calculatedfrom the following: Height as of this encounter: 5' 3 (1.6 m). Weight as of this encounter: 121 lb (54.885 kg). BP completed using cuff size: regular Rajwinder [place] CMA [employer] documented in this encounter Plan of Treatment Not on filedocumented as of this encounter Procedures Procedure Name Priority Date/Time Associated Comments Diagnosis WET PREPARATION Routine 09/25/2015 9:50 AM Urinary problem Res ults for this [employer] procedure are i n the results section. UA MACROSCOPIC WITH Routine 09/25/2015 9:23 AM Urinary problem Results for this REFLEX TO MICROSCOPIC [employer] proced ure are in AND CULTURE the results section. BETA HCG QUALITATIVE Routine 09/25/2015 9:23 AM Irregular mens es Results for this IFA URINE [employer] procedure are i n the results section. documented in this encounter Results Wet prep (09/25/2015 9:50 AM [employer]) [facility] Method Time Signature Specimen Vagina [place] Description [facility] [place] Wet Prep No Trichomonas seen [place] No clue cells seen [facility] No yeast seen [place] Micro Report FINAL [place] Status 09/25/2015 [facility] Specimen Anatomical Collection Method Collection Time Receive d Time (Source) Location / / Volume Laterality 09/25/2015 9:50 AM 6 9:51 [employer] AM [employer] Annalisa Mark APRN ROTARY FILTER OPERATOR LAB - MICRO GENERAL ORDER ALLI Performing Organization Address [facility]/ZIP Code Phon e Number [facility] [address] [place] [address] Beta HCG qual IFA urine (09/25/2015 9:23 AM [employer]) P athologist Signature Beta HCG Qual Negative NEG [place] IFA Urine [facility] [place] Specimen Anatomical Collection Method Collection Time Receive d Time (Source) Location / / Volume Laterality Urine specimen 09/25/2015 9:23 AM 016 9:48 (specimen) [employer] AM [employer] Annalisa Mark APRN ROTARY FILTER OPERATOR LAB - URINE ORDERABLES Performing Organization Address City/[facility]/ZIP Code Phon e Number [facility] [address] [place] [address] *UA reflex to Microscopic and Culture ([facility] (except [place]) (09/25/2015 9:23 AM [employer]) Patholo gist Method Time Signature Color Urine Yellow [facility] Appearance Urine Clear [facility] Glucose Urine Negative NEG mg/dL [facility] Bilirubin Urine Negative NEG [facility] Ketones Urine Negative NEG mg/dL [facility] Specific [place] 1.010 1.003 - [place] Urine 1.035 [facility] Blood Urine Negative NEG [facility] pH Urine 5.5 5.0 - 7.0 [place] pH [facility] Protein Albumin Negative NEG mg/dL [place] Urine [facility] Urobilinogen 0.2 0.2 - 1.0 [place] Urine EU/dL [facility] Nitrite Urine Negative NEG [facility] Leukocyte Negative NEG [place] Esterase Urine [facility] [place] Source Midstream [place] Urine [facility] Specimen Anatomical Collection Method Collection Time Receive d Time (Source) Location / / Volume Laterality Urine specimen 09/25/2015 9:23 AM 016 9:24 (specimen) [employer] AM [employer] Annalisa Mark APRN, CNP LAB - URINE ORDERABLES Performing Organization Address City/State/ZIP Code Phon e Number [facility] [id number] [place] [address] [phone] documented in this encounter Visit Diagnoses Diagnosis Urinary problem - Primary Other urinary problems Irregular menses Irregular menstrual cycle documented in this encounter Additional Health Concerns Assessment Noted Time PHQ-9 Depression Total Score: 8 09/26/2015 8:00 AM [employer] documented as of this encounter Care Teams Flue Lining Dipper Relationship Specialty Start Date End Date Annalisa Mark APRN CNP PCP - General Nurse Practitioner 03/22/15 [address] [place] [address] documented as of this encounter
--- OUTSIDE RECORDS SUMMARY | 2022-06-06 21:05 | XMS_ITS | Encounter Summary ---
:1985 Author Organization [place] Address [facility] [place] [address] Care Team Providers Name Role Phone Annalisa Mark APRN, CNP Primary Care Provider [phone] Reason for Visit Reason Comments RECHECK Encounter Details Date Type Department Care Team Description 12/19/2015 Office Visit [facility] Annalisa Mark (Primary Dx); [facility] [place] JADEN Peacock CNP History of miscarriage, not currently pr egnant; [address] [facility] [address] [facility] Eczema [place], [place] [address] [id number] Social History Tobacco Use Types Packs/Day Years [...] you attend episcopal or Patient refused 2021 orthodoxy services? Do [...] Reading Time Taken Comments Blood Pressure 102/64 12/19/2015 3:31 PM CDT Pulse 62 12/19/2015 3:31 PM CDT Temperature 36.7 ??C (98.1 ??F) 12/19/2015 3:31 PM CDT Respiratory Rate 12 12/19/2015 3:31 PM CDT Oxygen Saturation - - Inhaled Oxygen Concentration - - Weight 56.2 kg (124 lb) 12/19/2015 3:31 PM CDT Height - - Body Mass Index 21.97 12/03/2015 3:15 PM CDT documented in this encounter Progress Notes Annalisa Mark, JADEN KILN HEAD HOUSE OPERATOR - 12/19/2015 3:32 PM CDT SUBJECTIVE: Tameka Grissom is a 30 year old female who presents to clinic today for the following health issues: Follow up miscarriage ?? Duration: 2 weeks ?? Description (location/character/radiation): bloated and cramping ?? Intensity: moderate ?? Accompanying signs and symptoms: none ?? History (similar episodes/previous evaluation): None ?? Precipitating or alleviating factors: None ?? Therapies tried and outcome: None Last visit on 12/03/2015 at that visit had serum quant that was positive, had some spotting with increased bleeding the next day that lasted for 5 days. Prior to 12/02 LMP from 10/29 to 11/04 normal period. ??Likely miscarriage in early . Serum quant was 4. Since 12/06 has not had further vaginal bleeding, continues to feel lower abdominal bloating with cramping. Denies fever, vaginal discharge or concern regarding STD. Eczema: Bilateral eternal ear with dryness and scaling, has tried desonide in the past with some relief, after stops using dryness returns. Problem list and histories reviewed & adjusted, [...] Outpatient Prescriptions Medication Sig Dispense Refill ??? escitalopram (LEXAPRO) 20 MG tablet Take 1 tablet (20 mg) by mouth daily 90 tablet 1 ??? desonide (DESOWEN) 0.05 % ointment Apply sparingly to affected area three times daily for 14 days. 15 g 0 Allergies Allergen Reactions ??? No Known Drug Allergies ROS: C: NEGATIVE for fever, chills, change in weight HENT: See HPI : see HPI OBJECTIVE: BP 102/64 mmHg Pulse 62 Temp(Src) 98.1 ??F (36.7 ??C) (Oral) Resp 12 Wt 124 lb (56.246 kg) Body mass index is 21.97 kg/(m^2). GENERAL: healthy, alert and no distress EARS: Dry and scaly skin along the meatus of both ears RESP: lungs clear to auscultation - no rales, rhonchi or wheezes CV: regular rate and rhythm, normal S1 S2, no S3 or S4, no murmur, click or rub, no peripheral edema ABDOMEN: soft, nontender, no hepatosplenomegaly, no masses and bowel sounds normal ASSESSMENT: See below PLAN: Tameka was seen today for recheck. Diagnoses and all orders for this visit: Pelvic pain Orders: - US Pelvic Complete w Transvaginal; Future History of miscarriage, not currently Orders: - US Pelvic Complete w Transvaginal; Future Eczema of external ear, bilateral Orders: - clotrimazole-betamethasone (LOTRISONE) cream; Apply topically 2 times daily Follow up after ultrasound to discuss results. Annalisa Mark APRN [facility] documented in this encounter Nursing Notes Rajwinder Milton CMA - 12/19/2015 3:34 PM CDT Chief Complaint Patient presents with ??? RECHECK Initial BP 102/64 mmHg Pulse 62 Temp(Src) 98.1 ??F (36.7 ??C) (Oral) Resp 12 Wt 124 lb (56.246 kg) Estimated body mass index is 21.97 kg/(m^2) as calculated from the following: Height as of 16: 5' 3 (1.6 m). Weight as of this encounter: 124 lb (56.246 kg). BP completed using cuff size: regular Rajwinder Milton CMA documented in this encounter Plan of Treatment Not on filedocumented as of this encounter Results US Pelvic Complete w [...] ovaries . IMPRESSION; 1.Normal pelvic ultrasound. ADRIENNE DEVINE MD Procedure Note Adrienne Devine MD - 12/20/2015For matting of this note [...] ovaries . IMPRESSION; 1.Normal pelvic ultrasound. ADRIENNE DEVINE MD Annalisa Mark APRN, CNP IM US ORDERABLES documented in this encounter Visit Diagnoses Diagnosis Pelvic pain - Primary Unspecified symptom associated with fema le genital organs History of miscarriage, not currently pr egnant Eczema of external ear, bilateral Pelvic pain Unspecified symptom associated with fema le genital organs History of miscarriage, not currently pr egnant documented in this encounter Additional Health Concerns Assessment Noted Time PHQ-9 Depression Total Score: 8 09/26/2015 8:00 AM UMBRELLA REPAIRER documented as of this encounter Care Teams Hob Machine Operator Relationship Specialty Start Date End Date Annalisa Mark APRN CNP PCP - General Nurse Practitioner 03/22/15 [address] [place] [address] documented as of this encounter
--- OUTSIDE RECORDS SUMMARY | 2022-06-06 21:05 | XMS_ITS | Encounter Summary ---
:1985 Author Organization [place] Address [address] [place] [address]. [place] [address] Care Team Providers Name Role Phone DeedeeAnnalisa dean Madonna STANLEY CNP Primary Care Provider [phone] Encounter Details Date Type Department Care Team Description 03/23/2015 Telephone [facility] Nurse Laury Day, RN [facility] [address] [place] [address] Social History Tobacco Use Types Packs/Day [...] you attend episcopal or Patient refused 2021 presybeterian services? Do [...] this encounter Miscellaneous Notes Telephone Encounter - Laury Day RN - 03/23/2015 6:58 PM CDT Call Type: Triage Call Presenting Problem: My current insurance will end on . I feel like I have to pee. Upon clarification, patient believes she has a UTI. Will absolutely NOT go to clinic, even with a different health care system or different location. This weekned's gonna suck, it's already hurting. Advised to try [facility] where she may receive treatment or referral to provider, unwilling. Wanting to see Annalisa Mark on Thursday but that provider has full schedule, and is unwilling to see another provider. Triage Note: Guideline Title: Urinary Symptoms - Female Recommended Disposition: See Provider within 24 hours Original Inclination: Wanted to speak with a nurse Override Disposition: Intended Action: See /Edgar Appt Physician Contacted: No Has one or more urinary tract symptoms AND has not been previously evaluated ? YES Blood in urine ? NO Abnormal vaginal discharge (such as increased quantity, abnormal color, consistency, odor) ? NO Flank pain ? NO New or worsening signs and symptoms that may indicate shock ? NO Any temperature elevation in a frail elderly, immunocompromised or person ? NO Current or recent urinary tract instrumentation AND urinary tract symptoms OR no urine flow ? NO Urinary tract symptoms AND any flank or low back pain ? NO Urinary tract symptoms AND fever 101.5 F (38.6 C) or higher or vomiting ? NO Any unexpected urinary symptoms following urinary tract or abdominal surgery within timeframe specified by provider ? NO Unbearable abdominal/pelvic pain ? NO No urination for 12 or more hours ? NO Physician Instructions: Care Advice: SYMPTOM / CONDITION MANAGEMENT Increase intake of fluids. Try to drink 8 oz. (.2 liter) every hour when awake, unless on restricted fluids for other medical reasons. Include at least two 8 oz. (.2 liter) glasses of unsweetened cranberry juice each day. Take sips of fluid or eat ice chips if nauseated or vomiting. documented in this encounter Plan of Treatment Not on filedocumented as of this encounter Visit Diagnoses Not on filedocumented in this encounter Additional Health Concerns Assessment Noted Time PHQ-9 Depression Total Score: 7 03/23/2015 7:14 AM CDT documented as of this encounter Care Teams Rn Security Relationship Specialty Start Date End Date Annalisa Mark APRN PROVIDER NETWORK ANALYST PCP - General Nurse Practitioner 03/22/15 [address] [place] [address] documented as of this encounter
--- OUTSIDE RECORDS SUMMARY | 2022-06-06 21:05 | XMS_ITS | Encounter Summary ---
:1985 Author Organization [place] Address [address] [place] [address]. [place] [address] Care Team Providers Name Role Phone Annalisa Mark APRN, CNP Primary Care Provider [phone] Reason for Visit Reason Onset Date Comments Results 12/06/2015 labs Encounter Details Date Type Department Care Team Description 12/06/[address] [facility] Annalisa Mark, Results (labs) [facility] [phone] [place] [address] (Wo rk) Social History Tobacco [...] you attend spiritism or Patient refused 2021 zoroastrianism services? Do [...] this encounter Miscellaneous Notes Telephone Encounter - Seema Galvin RN - 12/06/2015 4:55 PM CDT Pt calls for 12/02 labs, which I read to her. Discussed that her sx were seemingly just from miscarrying, as STD's and wet prep negative. Seema Galvin RN documented in this encounter Plan of Treatment Not on filedocumented as of this encounter Visit Diagnoses Not on filedocumented in this encounter Additional Health Concerns Assessment Noted Time PHQ-9 Depression Total Score: 8 09/26/2015 8:00 AM UTILITY SERVICE WORKER documented as of this encounter Care Teams Process Tech Relationship Specialty Start Date End Date Annalisa Mark APRN PURCHASING DIRECTOR PCP - General Nurse Practitioner 03/22/15 [address] [place] [address] documented as of this encounter
--- OUTSIDE RECORDS SUMMARY | 2022-06-06 21:05 | XMS_ITS | Encounter Summary ---
:1985 Author Organization [place] Address [address] [place] [address]. [place] [address] Care Team Providers Name Role Phone Annalisa Mark APRN, CNP Primary Care Provider [phone] Reason for Visit Reason Onset Date Comments Results 12/03/2015 labs Encounter Details Date Type Department Care Team Description 12/03/2015 Telephone [facility] Annalisa Mark, Results (labs) [facility] [address] [phone] [place] [address] (Wo rk) Social History Tobacco [...] you attend yazidism or Patient refused 2021 alevism services? Do [...] Encounter - Annalisa Mark APRN CNP - 12/03/2015 7:50 PM CDT Spoke with Tameka about positive HCG qual, discussed that this does confirm , it is unclear at this time if possible miscarriage since having spotting. Informed that I would call tomorrow afternoon with quant level. If has heavy bright red bleeding most likely a miscarriage. If this is a viable Is currently 4 weeks 5 days gestation. Would like OB care with Dr. Martin. Annalisa Mark CNP Telephone Encounter - Seema Galvin RN - 12/03/2015 5:57 PM CDT Pt calls for lab results. Informed that her HCG Qual was positive (was unaware that Annalisa and lab had decided to wait for quant!), but that quant was not back yet. Answered some general questions, and informed pt that we would call tomorrow with a more definite answer after the HCG quant result is in (Gisel in lab states this will be around 2pm). Annalisa is only here tomorrow morning, but pt would really really appreciate a call from her provider! Routing to Annalisa, as high priority just so this does not get passed up. Seema Galvin, RN documented in this encounter Plan of Treatment Not on filedocumented as of this encounter Visit Diagnoses Not on filedocumented in this encounter Additional Health Concerns Assessment Noted Time PHQ-9 Depression Total Score: 8 09/26/2015 8:00 AM HEAD BAKER documented as of this encounter Care Teams Seo Assistant Relationship Specialty Start Date End Date Annalisa Mark APRN CNP PCP - General Nurse Practitioner 03/22/15 [address] [place] [address] documented as of this encounter
--- OUTSIDE RECORDS SUMMARY | 2022-06-06 21:05 | XMS_ITS | Encounter Summary ---
:1985 Author Organization [place] Address [address] [place] [address]. [place] [address] Care Team Providers Name Role Phone Annalisa Mark APRN, CNP Primary Care Provider [phone] Encounter Details Date Type Department Care Team Description 03/23/2015 Telephone [facility] Annalisa Mark [place] JADEN [facility] [phone] [place] [address] (Wo rk) Social History Tobacco [...] you attend mormon or Patient refused 2021 tenriism services? Do [...] documented as of this encounter Care Teams Soldering Machine Tender Relationship Specialty Start Date End Date Annalisa Mark APRN BACTERIOLOGY TEACHER PCP - General Nurse Practitioner 03/22/15 [address] [place] [address] documented as of this encounter
--- OUTSIDE RECORDS SUMMARY | 2022-06-06 21:05 | XMS_ITS | Encounter Summary ---
:1985 Author Organization [place] Address [address] [place] [address]. [place] [address] Care Team Providers Name Role Phone Deedee Annalisaarnulfo Peacock APRN, CNP Primary Care Provider [phone] Reason for Visit Reason Onset Date Comments Patient Request 03/04/2016 new Encounter Details Date Type Department Care Team Description 03/04/2016 Telephone [facility] Summer Alvarado nt Request ([facility] MD Fransisca ) [place] [address] [facility] [address] [place] [address] [place], [place] [phone] (Wo rk) [address] [phone] Social History Tobacco Use Types Packs/Day Years [...] you attend temple or Patient refused 2021 hindu services? Do [...] this encounter Miscellaneous Notes Telephone Encounter - Deneen Messina - 03/04/2016 9:13 AM CDT Per epic pt had nurse visit today and has MD appt already scheduled. Called pt, reports no appt needs at this time. Telephone Encounter - Una Morelos - 03/04/2016 8:01 AM CDT Patient called today. Patient is 6 weeks . Patient would like to establish new at [place]. Please contact patient. Thank you. Central Scheduling Una Hardin documented in this encounter Plan of Treatment Not on filedocumented as of this encounter Visit Diagnoses Not on filedocumented in this encounter Additional Health Concerns Assessment Noted Time PHQ-9 Depression Total Score: 8 09/26/2015 8:00 AM SCREEN PRINTING SUPERVISOR documented as of this encounter Care Teams Wood Heel Cementer Relationship Specialty Start Date End Date Annalisa Mark APRN MATRIX SUPERVISOR PCP - General Nurse Practitioner 03/22/15 [address] [place] [address] documented as of this encounter
--- OUTSIDE RECORDS SUMMARY | 2022-06-06 21:05 | XMS_ITS | Encounter Summary ---
:1985 Author Organization [place] Address [address] [place] [address]. [place] [address] Care Team Providers Name Role Phone Jose Dumont MD Primary Care Provider Reason for Visit Reason Comments Ore Miner Blasting Exam Encounter Details Date Type Department Care Team Description 10/20/2014 Office Visit [facility] Pete Martin Routine gy necological examination (Primary Dx); [facility] MD Alexandre Moderate dysp lasia of cervix; [place] [facility] [address] [place] [address] Social History Tobacco Use Types Packs/Day Years [...] you attend mu-ism or Patient refused 2021 anabaptist services? Do [...] Reading Time Taken Comments Blood Pressure 102/70 10/20/2014 2:31 PM CDT Pulse - - Temperature - - Respiratory Rate - - Oxygen Saturation - - Inhaled Oxygen Concentration - - Weight 54.2 kg (119 lb 6.4 oz) 10/20/2014 2:31 PM CDT Height - - Body Mass Index 21.15 07/21/2014 10:06 AM LEAD BURNER HELPER documented in this encounter Progress Notes Pete Martin - 10/20/2014 3:03 PM CDT SUBJECTIVE: Marcelino Daley is a 29 year old , single female, P0 woman who presents for annual exam. Patient's last menstrual period was 09/27/2014. Periods are regular q 28-30 days, lasting 4 days. Dysmenorrhea none. Saturates 1 pad or tampon in 5 hours. Cyclic symptoms include bloating. Current contraception: oral contraceptives History of abnormal Pap smear: Yes- LEEP Regular self breast exam: Yes Family history of breast cancer: Yes - Mother. Colon cancer No. Ovarian cancer No. History of abnormal lipids: No Past Medical History Diagnosis Date ??? Papanicolaou smear of cervix with low grade squamous intraepithelial lesion (LGSIL) 02/15/08, 08/01/08, 04/05/09, 08/28/09 ??? History of colposcopy with cervical biopsy 02/24/08 PEDRO I, 11/21/08 PEDRO I, 04/10/09 PEDRO I &II, ??? Mild major depression ??? History of OCD (obsessive compulsive disorder) 01/29/2012 ??? Generalised anxiety disorder 01/29/2012 ??? Allergic rhinitis, seasonal Past Surgical History Procedure Laterality Date ??? C nonspecific procedure rt brest biopsy,benign ??? Cryotherapy 04/04/08, 12/14/08 ??? Colposcopy cervix, loop electrode biopsy, combined 04/24/09 PEDRO I & II Current Outpatient Prescriptions Medication ??? norethindrone-ethinyl estradiol-iron () 1.5-30 MG-MCG tablet ??? escitalopram (LEXAPRO) 20 MG tablet ??? hydrOXYzine (ATARAX) 25 MG tablet No current facility-administered medications for this visit. Allergies Allergen Reactions ??? No Known Drug Allergies History Substance Use Topics ??? Smoking status: Never Smoker ??? Smokeless tobacco: Never Used ??? Alcohol Use: Yes Comment: Occaisional Review of Systems CONSTITUTIONAL:NEGATIVE EYES: NEGATIVE ENT/MOUTH: NEGATIVE RESP: NEGATIVE CV: NEGATIVE GI: NEGATIVE : NEGATIVE MUSCULOSKELATAL: NEGATIVE INTEGUMENTARY/SKIN: NEGATIVE BREAST: NEGATIVE NEURO: NEGATIVE. OBJECTIVE: BP 102/70 Wt 119 lb 6.4 oz (54.159 kg) LMP 09/27/2014 General appearance: Healthy. Skin: Normal. Mental Status: [...] and uterusantiverted. Extremities: Normal ASSESSMENT: Satisfactory annual liberal arts teacher exam PLAN: 1) Pap smear 2) Mammography, lipids at appropriate intervals PE: reviewed health maintenance including diet, regular exercise and periodic exams. documented in this encounter Plan of Treatment Not on filedocumented as of this encounter Procedures Procedure Name Priority Date/Time Associated Diagnosis Comme nts NEISSERIA Routine 10/20/2014 3:24 PM Routine Gynecological Results for this GONORRHOEAE PCR CDT Examination procedure are in Moderate Dysplasia Of the re sults Cervix section. Contraception CHLAMYDIA Routine 10/20/2014 3:24 PM Contraception Results for this TRACHOMATIS PCR CDT Routine Gynecological pro cedure are in Examination the results Moderate Dysplasia Of sectio n. Cervix WET PREPARATION Routine 10/20/2014 3:22 PM Routine Gynecologic al Results for this CDT Examination procedure are in Moderate Dysplasia Of the re sults Cervix section. Contraception PAP IMAGED THIN Routine 10/20/2014 12:00 Moderate Dysplasia Of Results for this LAYER SCREEN AM CDT Cervix procedure are in Routine Gynecological the re sults Examination section. Contraception documented in this encounter Results CHLAMYDIA TRACHOMATIS PCR (10/20/2014 3:24 PM CDT) Component Value Ref Test Analysis Performed At [facility] [place] Method Time Signature Specimen Cervical [facility] Chlamydia Negative NEG [facility] Trachomatis Negative for C. trachomatis rRNA by jail manager mediated amplification. [facility] PCR A negative result by transc ription mediated amplification does not preclude the [facility] presence of C. trachomatis infection because re sults are dependent on proper BANK and adequate collection, absence of inhibitors, and suffici ent rRNA to be detected. Specimen Anatomical Collection Method Collection Time Receive d Time (Source) Location / / Volume Laterality Cervical swab 10/20/2014 3:24 PM 10/21/19 15 3:29 (specimen) CDT PM CDT Pete Martin MD LAB - MICRO GENERAL ORDERABL ES Performing Organization Address City/[facility] Code Phon e Number [address] [address] [place] [address] [address] [place], [place] [address] [address] NEISSERIA GONORRHOEA PCR (10/20/2014 3:24 PM CDT) Component Value Ref Test Analysis Performed At [facility] Method Time Signature Specimen Cervical [facility] N Gonorrhea Negative NEG [facility] PCR Negative for N. gonorrhoeae rRNA by transcripti on mediated amplification. [facility] A negative result by transc ription mediated amplification does not preclude the [facility] presence of N. gonorrhoeae infection because re sults are dependent on proper BANK and adequate collection, absence of inhibitors, and suffici ent rRNA to be detected. Specimen Anatomical Collection Method Collection Time Receive d Time (Source) Location / / Volume Laterality Cervical swab 10/20/2014 3:24 PM 10/21/19 15 3:29 (specimen) CDT PM CDT Pete Martin MD LAB - MICRO GENERAL ORDERABL ES Performing Organization Address City/[facility] Phon e Number [id number] [place] [address] [address] [place], [place] [address] [address] Wet prep (10/20/2014 3:22 PM CDT) Component Value Ref Test Analysis Performed At [facility] Method Time Signature Specimen Vagina [facility] Wet Prep No yeast seen [place] No Trichomonas seen [facility] No clue cells seen [place] Micro Report FINAL [place] Status 10/20/2014 [facility] Specimen Anatomical Collection Method Collection Time Receive d Time (Source) Location / / Volume Laterality 10/20/2014 3:22 PM 5 3:27 CDT PM CDT Pete Martin MD LAB - MICRO GENERAL ORDERABL ES Performing Organization Address City/State/ZIP Code Phon e Number [facility] [address] [place], [place] [address] [address] PAP imaged thin layer, screen (10/20/2014 12:00 AM CDT) Component Value Ref Test Analysis Performed At [facility] Method Time Signature PAP NIL [place] Copath Report COPATH Patient Name: MARCELNIO DALEY MR#: [id number] Specimen #: [id number] Collected: 10/20/2014 Received: 10/23/2014 Reported: 10/24/2014 12:13 Ordering Phy(s): PETE MARTIN SPECIMEN/STAIN PROCESS: Pap imaged thin layer prep screening (Surepath, FocalPoint w ith guided screening) ? Pap-Cyto x 1 SOURCE: Cervical, endocervical ---- Pap imaged thin layer prep screening (Surepath, FocalPoint with guided screening) SPECIMEN ADEQUACY: Satisfactory for evaluation. -Transformation zone component absent. CYTOLOGIC INTERPRETATION: Negative for Intraepithelial Lesion or Malignancy Electronically signed out by: LANDEN Pearson ( ASCP) Processed and screened at [facility] nt, [facility] CLINICAL HISTORY: LMP: 09/27/14 Oral Control Pill, Previous normal pap Date of Last Pap: 10/10/13, Papanicolaou Test Limitations: ??Cervical cytology is a scre ening test with limited sensitivity; regular screening is critical for cancer prevention; Pap tests are primarily effective for the diagnosis/prevention of squamous cell carcinoma, not adenoca rcinomas or other cancers. TESTING LAB LOCATION: [place] [address] [place] [id number] COLLECTION SITE: Client: ??[facility] Location: RIOB (R) Specimen (Source) Anatomical Collection Method Collection Time Re ceived Time Location / / Volume Laterality Cytologic 10/20/2014 10/23/2014 11:2 0 material AM CDT (specimen) Pete Martin MD LAB - OPTIME CLINICAL SPECIM EN Performing Organization Address City/State/ZIP Code Phon e Number [place] documented in this encounter Visit Diagnoses Diagnosis Routine gynecological examination - Prim cresencio Moderate dysplasia of cervix Contraception Unspecified contraceptive management documented in this encounter Care Teams Biscuit Maker Relationship Specialty Start Date End Date Jose Dumont MD PCP - General Family Practice 01/29/12 03/20/15 [address] [place] [address] documented as of this encounter
--- OUTSIDE RECORDS SUMMARY | 2022-06-06 21:05 | XMS_ITS | Encounter Summary ---
:1985 Author Organization [facility] Address [address] [place] [address]. [place] [address] Care Team Providers Name Role Phone Annalisa Mark APRN, CNP Primary Care Provider Reason for Visit Reason Comments Vaginal Problem Encounter Details Date Type Department Care Team Description 12/03/2015 Office Visit [facility] Annalisa Mark Irregular menses [facility] [place] JADEN Peacock CNP (Primary Dx) [id number] [id number] [phone] Social History Tobacco Use Types Packs/Day Years [...] or relatives? How often do you attend jainism or Patient refused 2021 yarsanism services? Do you belong to any clubs or No 10/17/2021 organizations such as jainism groups, unions, fraternal or athletic groups, or [...] Reading Time Taken Comments Blood Pressure 108/60 12/03/2015 3:15 PM CDT Pulse 82 12/03/2015 3:15 PM CDT Temperature 36.8 ??C (98.3 ??F) 12/03/2015 3:15 PM CDT Respiratory Rate 10 12/03/2015 3:15 PM CDT Oxygen Saturation - - Inhaled Oxygen Concentration - - Weight 54.4 kg (120 lb) 12/03/2015 3:15 PM CDT Height 160 cm (5' 3) 12/03/2015 3:15 PM CDT Body Mass Index 21.26 12/03/2015 3:15 PM CDT documented in this encounter Progress Notes Annalisa Mark, JADEN STAFFING SPECIALIST - 12/03/2015 3:15 PM CDT SUBJECTIVE: Tameka Grissom is a 30 year old female who presents to clinic today for the following health issues: Vaginal Symptoms ?? Duration: 2 weeks ?? Description spotting ?? Intensity: NA ?? Accompanying signs and symptoms (fever/dysuria/abdominal or back pain): tender breast ?? History Sexually active: yes, single partner, contraception - none Possibility of : Yes Recent antibiotic use: no ?? Precipitating or alleviating factors: None ?? Therapies tried and outcome: negative test LMP from 10/29 to 11/04 normal period. Spotting started on 11/19, continues to have spotting with use of small panty liner, spotting dark brown in color. Problem list and histories reviewed & adjusted, as indicated. Additional history: as documented Patient Active Problem List Diagnosis ??? Mild major depression (HCC) ??? CARDIOVASCULAR SCREENING; LDL GOAL LESS THAN [...] peripheral edema : see HPI OBJECTIVE: BP 108/60 mmHg Pulse 82 Temp(Src) 98.3 ??F (36.8 ??C) (Oral) Resp 10 Ht 5' 3 (1.6 m) Wt 120 lb (54.432 kg) BMI 21.26 kg/m2 Body mass index is 21.26 kg/(m^2). GENERAL: healthy, alert and no distress RESP: lungs clear to auscultation - no rales, rhonchi or wheezes CV: regular rate and rhythm, normal S1 S2, no S3 or S4, no murmur, click or rub, no peripheral edema ABDOMEN: soft, nontender, no hepatosplenomegaly, no masses and bowel sounds normal ASSESSMENT: See below PLAN: Tameka was seen today for vaginal problem. Diagnoses and all orders for this visit: Irregular menses: Will call with test results later today. Orders: - NEISSERIA GONORRHOEA PCR - CHLAMYDIA TRACHOMATIS PCR - Wet prep - HCG qualitative - HCG, quantitative, FUTURE APPOINTMENTS: - Follow-up visit, will call later today with results. Annalisa Mark APRN CNP [facility] documented in this encounter Nursing Notes Rajwinder Milton CMA - 12/03/2015 3:18 PM CDT Chief Complaint Patient presents with ??? Vaginal Problem Initial BP 108/60 mmHg Pulse 82 Temp(Src) 98.3 ??F (36.8 ??C) (Oral) Resp 10 Ht 5' 3 (1.6 m) Wt 120 lb (54.432 kg) BMI 21.26 kg/m2 Estimated body mass index is 21.26 kg/(m^2) as calculatedfrom the following: Height as of this encounter: 5' 3 (1.6 m). Weight as of this encounter: 120 lb (54.432 kg). BP completed using cuff size: regular Rajwinder Milton CMA documented in this encounter Plan of Treatment Not on filedocumented as of this encounter Procedures Procedure Name Priority Date/Time Associated Comments Diagnosis WET PREPARATION Routine 12/03/2015 3:33 PM Irregular menses Re sults for this CDT procedure are i n the results section. HCG QUALITATIVE Routine 12/03/2015 3:33 PM Irregular menses Re sults for this CDT procedure are i n the results section. HCG QUANTITATIVE Routine 12/03/2015 3:33 PM Irregular menses R esults for this CDT procedure are i n the results section. NEISSERIA GONORRHOEAE Routine 12/03/2015 3:32 PM Irregular men ses Results for this PCR CDT procedure are i n the results section. CHLAMYDIA TRACHOMATIS Routine 12/03/2015 3:32 PM Irregular men ses Results for this PCR CDT procedure are i n the results section. documented in this encounter Results HCG, quantitative, (12/03/2015 3:33 PM CDT) [facility] Method Time Signature HCG Quantitative 4 IU/L [facility] Comment: Non- ?0 - 5 , weeks from LMP: ??1 - 10 weeks ? 64 - 151,000 IU/L 11 - 15 weeks 11,800 - 152,000 IU/L 16 - 22 weeks ??9,380 - 61,400 IU/L 23 - 40 weeks ??1,740 - 98,600 IU/L Specimen Anatomical Collection Method Collection Time Receive d Time (Source) Location / / Volume Laterality Blood specimen 12/03/2015 3:33 PM 016 3:34 (specimen) CDT PM CDT Annalisa Madonna Mark APRN, CNP LAB - BLOOD ORDERABLES Performing Organization Address City/[facility]/ZIP Code Phon e Number [facility] [place] [address] [place] [address] (ABNORMAL) HCG qualitative (12/03/2015 3:33 PM CDT) Patholo gist Method Time Signature HCG Qualitative Positive (A) NEG [place] Serum [facility] Specimen Anatomical Collection Method Collection Time Receive d Time (Source) Location / / Volume Laterality Blood specimen 12/03/2015 3:33 PM 016 3:34 (specimen) CDT PM CDT Annalisa Madonna Mark APRN, CNP LAB - BLOOD ORDERABLES Performing Organization Address City/[facility]/ZIP Code Phon e Number [facility] [address] [place] [address] Wet prep (12/03/2015 3:33 PM CDT) [facility] gist Method Time Signature Specimen Vagina [facility] Wet Prep No Trichomonas seen [place] No clue cells seen [facility] No yeast seen [place] Micro Report FINAL [place] Status 12/03/2015 [facility] Specimen Anatomical Collection Method Collection Time Receive d Time (Source) Location / / Volume Laterality 12/03/2015 3:33 PM 6 3:34 CDT PM CDT Annalisa Madonna Mark APRN STAFFING SPECIALIST LAB - MICRO GENERAL ORDER ALLI Performing Organization Address City/[facility]/ZIP Code Phon e Number [facility] [address] [place] [address] CHLAMYDIA TRACHOMATIS PCR (12/03/2015 3:32 PM CDT) Component Value Ref Test Analysis Performed At [facility] gist Range Method Time Signature Specimen Vagina [facility] Chlamydia Negative [facility] Trachomatis Negative for C. trachomatis rRNA by combustion analyst mediated amplification. [place] [facility] A negative result by transc ription mediated amplification does not preclude the [facility] presence of C. trachomatis infection because re sults are dependent on proper BANK and adequate collection, absence of inhibitors, and suffici ent rRNA to be detected. Specimen Anatomical Collection Method Collection Time Receive d Time (Source) Location / / Volume Laterality Specimen from 12/03/2015 3:32 PM 12/03/19 16 3:33 vagina CDT PM CDT (specimen) Annalisa Mark APRN, CNP LAB - MICRO GENERAL ORDER ALLI Performing Organization Address [facility] Phon e Number [address] [address] NEISSERIA GONORRHOEA PCR (12/03/2015 3:32 PM CDT) Component Value Ref Test Analysis Performed At [facility] Range Method Time Signature Specimen Vagina [facility] N Gonorrhea Negative [facility] PCR Negative for N. gonorrhoeae rRNA by transcripti on mediated amplification. [facility] A negative result by transc ription mediated amplification does not preclude the [facility] presence of N. gonorrhoeae infection because re sults are dependent on proper BANK and adequate collection, absence of inhibitors, and suffici ent rRNA to be detected. Specimen Anatomical Collection Method Collection Time Receive d Time (Source) Location / / Volume Laterality Specimen from 12/03/2015 3:32 PM 12/03/19 16 3:33 vagina CDT PM CDT (specimen) Annalisa Mark APRN, CNP LAB - MICRO GENERAL ORDER ALLI Performing Organization Address [facility] Code Phon e Number [id number] [place] [address] documented in this encounter Visit Diagnoses Diagnosis Irregular menses - Primary Irregular menstrual cycle documented in this encounter Additional Health Concerns Assessment Noted Time PHQ-9 Depression Total Score: 8 09/26/2015 8:00 AM TRAIN STATION AGENT documented as of this encounter Care Teams Irradiated Fuel Handler Relationship Specialty Start Date End Date Annalisa Mark APRN CNP PCP - General Nurse Practitioner 03/22/[id number] [place] [address] documented as of this encounter
--- OUTSIDE RECORDS SUMMARY | 2022-06-06 21:05 | XMS_ITS | Encounter Summary ---
:1985 Author Organization [facility] Address [address] [place] [address]. [place] [address] Care Team Providers Name Role Phone DeedeeSwapna deanarnulfo Peacock APRN, CNP Primary Care Provider [phone] Reason for Visit Reason Onset Date Comments Vaginal Problem 04/04/2015 Encounter Details Date Type Department Care Team Description 04/04/2015 Telephone [facility] Annalisa Mark, Vaginal Problem [place] HEEL SHAVER PREPRESS STRIPPER [address] [phone] [place], [place] [phone] (Wo rk) Social History Tobacco Use Types [...] you attend gnosticist or Patient refused 2021 amish services? Do [...] this encounter Miscellaneous Notes Telephone Encounter - Summer Zavala RN - 04/05/2015 9:09 AM CDT Informed via VM. Kenia Zavala RN, BSN Telephone Encounter - Annalisa Mark APRN CNP - 04/04/2015 10:37 PM CDT Can you let Tameka know that I sent in a prescription for diflucan. Have her follow up with an apptif symptoms do not improve. Thanks, Annalisa Mark CNP Telephone Encounter - Emani Cervantes RN - 04/04/2015 4:58 PM CDT Patient calls and states saw your for PE 03/22/15. Got Macrobid from [facility] for UTI 03/23/15 and nowfeels she has a yeast infection and wondering if you will treat her. Having odor and itching, milky discharge discharge x 2 days. Started a new job so hard to get in but will come in if needed. Please advise. Let her know at [phone]. Emani Cervantes RN documented in this encounter Plan of Treatment Not on filedocumented as of this encounter Visit Diagnoses Diagnosis Vaginal itching - Primary Pruritus of genital organs documented in this encounter Additional Health Concerns Assessment Noted Time PHQ-9 Depression Total Score: 7 03/23/2015 7:14 AM CDT documented as of this encounter Care Teams Spike Driver Relationship Specialty Start Date End Date Annalisa Mark APRN CNP PCP - General Nurse Practitioner 03/22/15 [address] [place] [address] documented as of this encounter
--- OUTSIDE RECORDS SUMMARY | 2022-06-06 21:05 | XMS_ITS | Encounter Summary ---
:1985 Author Organization [facility] Address [address] [place] [address]. [place] [address] Care Team Providers Name Role Phone Jose Dumont MD Primary Care Provider Reason for Visit Reason Comments RECHECK F/U o depression Medication URI Sore Throat, Cough Encounter Details Date Type Department Care Team Description 07/21/2014 Office Visit [facility] Annalisa Mark Anxiety (P rimary Dx); Clinic [place] JADEN Peacock BARN AND PROPERTY MANAGER Acute pharyngitis; [address] [facility] [address] [facility] Mild major depression (H); [place], [place] Impacte d cerumen, bilateral; [id number] [place] [phone] Social History Tobacco Use Types Packs/Day Years [...] you attend alevism or Patient refused 2021 confucianism services? Do [...] Reading Time Taken Comments Blood Pressure 98/68 07/21/2014 10:06 AM DATA SYSTEMS MANAGER Pulse 107 07/21/2014 10:06 AM DATA SYSTEMS MANAGER Temperature 36.7 ??C (98.1 ??F) 07/21/2014 10:06 AM DATA SYSTEMS MANAGER Respiratory Rate 14 07/21/2014 10:06 AM DATA SYSTEMS MANAGER Oxygen Saturation 98% 07/21/2014 10:06 AM DATA SYSTEMS MANAGER Inhaled Oxygen Concentration - - Weight 51.3 kg (113 lb) 07/21/2014 10:06 AM DATA SYSTEMS MANAGER Height 160 cm (5' 3) 07/21/2014 10:06 AM DATA SYSTEMS MANAGER Body Mass Index 20.02 07/21/2014 10:06 AM DATA SYSTEMS MANAGER documented in this encounter Patient Instructions Patient InstructionsDeedee, Annalisa Peacock, BARN AND PROPERTY MANAGER - 07/21/2014 10:37 AM DATA SYSTEMS MANAGER Images from the original note were not included. Viral Pharyngitis (Sore Throat) Your throat pain is due to an infection called Viral Pharyngitis, commonly known as Sore Throat.This is a contagious illness. It is spread through the air by coughing, kissing or by touching others after touching your mouth or nose. Symptoms include throat pain worse with swallowing, aching all over, headache and fever. Unlike strep throat, which is a bacterial infection, this illness does not require treatment with an antibiotic. Home Care: 1. If your symptoms are severe, rest at home for the first 2-3 days. 2. Children: Use acetaminophen (Tylenol) for fever, fussiness or discomfort. In infants over six months of age, you may use ibuprofen (Children's Motrin) instead of Tylenol. [NOTE: If your child has chronic liver or kidney disease or ever had a stomach ulcer or GI bleeding, talk with your child???s doctor before using these medicines.] (Aspirin should never be used in anyone under 18 years of age whois ill with a fever. It may cause severe liver damage.) Adults: You may use acetaminophen (Tylenol) or ibuprofen (Motrin, Advil) to control pain or fever, unless another medicine was prescribed. [NOTE: If you have chronic liver or kidney disease or ever hada stomach ulcer or GI bleeding, talk with your doctor before using these medicines.] 3. Throat lozenges or sprays (Chloraseptic and others) will reduce pain. Gargling with warm salt water will also reduce throat pain. Dissolve 1/2 teaspoon of salt in 1 glass of warm water. This is especially useful just before meals. Follow Up with your doctor or as directed by our staff if you are not improving over the next week. Get Prompt Medical Attention if any of the following occur: ?? Fever over 100.5??F (38.0??C) oral, or over 101.5??F (38.6??C) rectal for more than three days ?? New or worsening ear pain, sinus pain or headache ?? Painful lumps in the back of your neck ?? Unable to swallow liquids or open your mouth wide due to throat pain ?? Trouble breathing or noisy breathing ?? Muffled voice ?? New rash ?? [phone] [place] [address]. All rights reserved. This information is not intended as a substitute for professional medical care. Always follow your healthcare professional's instructions. SYSTEMS MANAGER documented in this encounter Progress Notes Annalisa Mark CNP - 07/21/2014 10:10 AM CST SUBJECTIVE: Tameka Grissom is a 29 year old female who presents to clinic today for the following health issues: Abnormal Mood Symptoms ?? Duration: x 1.5 years ?? Description: Depression: YES Anxiety: YES Panic attacks: YES ?? Accompanying signs and symptoms: see PHQ-9 and MALIHA scores ?? History (similar episodes/previous evaluation): None ?? Precipitating or alleviating factors: None ?? Therapies tried and outcome: Lexapro (Escitalopram) ?? PHQ 9 score of 4, MALIHA 7 score of 2. URI: Has had frequent cough, nasal congestion, sore throat for several weeks. Denies fever, shortness of breath or chest pain. Problem list and histories reviewed & adjusted, as indicated. Additional history: as documented ROS: C: NEGATIVE for fever, chills, change in weight E/M: see HPI R: NEGATIVE for SOB. See HPI CV: NEGATIVE for chest pain PSYCHIATRIC: NEGATIVE for changes in mood or affect OBJECTIVE: BP 98/68 Pulse 107 Temp(Src) 98.1 ??F (36.7 ??C) (Oral) Resp 14 Ht 5' 3 (1.6 m) Wt 113 lb(51.256 kg) BMI 20.02 kg/m2 SpO2 98% LMP 07/12/2014 Body mass index is 20.02 kg/(m^2). GENERAL: healthy, alert and no distress HENT: ear canals with cerumen impaction, after removal TM's normal, nose and mouth without ulcers orlesions NECK: no adenopathy, no asymmetry, masses, or scars and thyroid normal to palpation RESP: lungs clear to auscultation - no rales, rhonchi or wheezes CV: regular rate and rhythm, normal S1 S2, no S3 or S4, no murmur, click or rub, PSYCH: mentation appears normal, affect normal/bright ASSESSMENT: See below PLAN: Tameka was seen today for recheck and uri. Diagnoses and associated orders for this visit: Mild major depression - escitalopram (LEXAPRO) 20 MG tablet; Take 1 tablet (20 mg) by mouth daily Anxiety - General Anxiety Disorder Questionnaire (MALIHA) Acute pharyngitis - Strep, Rapid Screen, rapid strep negative, patient informed. - Beta strep group A culture Impacted cerumen, bilateral - REMOVE IMPACTED CERUMEN Cough - guaiFENesin-codeine (ROBITUSSIN AC) 100-10 MG/5ML SOLN; Take 10 mLs by mouth every 4 hours as needed for cough Other Orders - PHQ-9 ORDER - select when completing PHQ-9 FUTURE APPOINTMENTS: - Follow-up visit in 3 months Annalisa Mark CNP [facility] SYSTEMS MANAGER documented in this encounter Nursing Notes Hollie Arevalo CMA - 07/21/2014 10:10 AM CST Chief Complaint Patient presents with ??? RECHECK F/U o depression Medication Initial BP 98/68 Pulse 107 Temp(Src) 98.1 ??F (36.7 ??C) (Oral) Resp 14 Ht 5' 3 (1.6 m) Wt 113 lb (51.256 kg) BMI 20.02 kg/m2 SpO2 98% LMP 07/12/2014 Estimated body mass index is 20.02kg/(m^2) as calculated from the following: Height as of this encounter: 5' 3 (1.6 m). Weight as of this encounter: 113 lb (51.256 kg). BP completed using cuff size: regular Hollie Arevalo CMA (AAMA) SYSTEMS MANAGER documented in this encounter Plan of Treatment Not on filedocumented as of this encounter Procedures Procedure Name Priority Date/Time Associated Diagnosis Comme nts HC REMOVE IMPACTED Routine 07/21/2014 10:37 AM Impacted cerume n, CERUMEN DATA SYSTEMS MANAGER bilateral RAPID STREP SCREEN Routine 07/21/2014 10:25 AM Acute Pharyngit is Results for this THROAT SWAB DATA SYSTEMS MANAGER procedure are i n the results section. BETA HEMOLYTIC Routine 07/21/2014 10:25 AM Acute Pharyngitis R esults for this STREP GROUP A DATA SYSTEMS MANAGER procedure are in CULTURE the results section. documented in this encounter Results Beta strep group A culture (07/21/2014 10:25 AM DATA SYSTEMS MANAGER) Component Value Ref Test Analysis Performed At [facility] Range Method Time Signature Specimen Throat [place] Description [facility] Culture Micro No Beta [place] Streptococcus [facility] isolated [place] Micro Report FINAL 07/23/2014 [place] Status [facility] Specimen Anatomical Collection Method Collection Time Receive d Time (Source) Location / / Volume Laterality Specimen from 07/21/2014 10:25 07/21/2014 throat AM DATA SYSTEMS MANAGER 10:35 AM DATA SYSTEMS MANAGER (specimen) Annalisa Mark APRN BARN AND PROPERTY MANAGER LAB - MICRO GENERAL ORDER ALLI Performing Organization Address City/State/ZIP Code Phon e Number [facility] [address] [place], [place] [address] [place] [facility] [address] [place], [place] [id number] [facility] [address] [place], [place] [address] Strep, Rapid Screen (07/21/2014 10:25 AM DATA SYSTEMS MANAGER) Component Value Ref Test Analysis Performed At [facility] Range Method Time Signature Specimen Throat [place] Description [facility] Rapid Strep A NEGATIVE: No Group A strepto coccal antigen detected by immunoassay, await [place] Screen culture report. [facility] Micro Report FINAL 07/21/2014 [place] Status [facility] Specimen Anatomical Collection Method Collection Time Receive d Time (Source) Location / / Volume Laterality Specimen from 07/21/2014 10:25 07/21/2014 throat AM DATA SYSTEMS MANAGER 10:30 AM DATA SYSTEMS MANAGER (specimen) Annalisa Mark APRN BARN AND PROPERTY MANAGER LAB - MICRO GENERAL ORDER ALLI Performing Organization Address City/State/ZIP Code Phon e Number [facility] [address] [place] [address] documented in this encounter Visit Diagnoses Diagnosis Anxiety - Primary Anxiety state, unspecified Acute pharyngitis Mild major depression (H) Major depressive disorder, single episod e, mild Impacted cerumen, bilateral Cough documented in this encounter Care Teams Case Consultant Relationship Specialty Start Date End Date Jose Dumont MD PCP - General Family Practice 01/29/12 03/20/15 [id number] [id number] documented as of this encounter
--- OUTSIDE RECORDS SUMMARY | 2022-06-06 21:06 | XMS_ITS | Encounter Summary ---
:1984 Author Organization [facility] Address [address] [place] [address]. [place] [address] Care Team Providers Name Role Phone Jose Dumont MD Primary Care Provider Reason for Visit Reason Comments Allied Health Visit ear wash Encounter Details Date Type Department Care Team Description 07/25/2013 Allied Health/Nurse Health [facility] ied Health Visit Visit Clinic [place] (ear wash) [id number] [place] [phone] Social History Tobacco Use Types Packs/Day [...] you attend yazidism or Patient refused 2021 sikh services? Do you belong to any clubs [...] documented as of this encounter Nursing Notes 07/25/2013 10:15 AM CST >> Ingrid Dos Santos MA Mon Jul 25, 2013 10:00 AM Tameka Grissom is a 28 year old female who presents today for Ear Wash. with the complaint of hearing loss and blockage. Ear exam showing wax occlusion in the left ear. Colace syrup drops were place in left ear(s) and letsoak for 10 minutes. The patients ear(s) were irrigated using a syringe with moderate amount of wax extracted. Patient tolerated procedure well. Patient instructed to irrigate ears with warm water daily. Outcome:cerumen cleaned and patient satisfied. Ingrid Dos Santos MA documented in this encounter Plan of Treatment Not on filedocumented as of this encounter Visit Diagnoses Diagnosis Impacted cerumen, left - Primary documented in this encounter Care Teams [employer] Processing Technician Relationship Specialty Start Date End Date Jose Dumont MD PCP - General Family Practice 01/29/12 03/20/15 [address] [id number] documented as of this encounter
--- OUTSIDE RECORDS SUMMARY | 2022-06-06 21:06 | XMS_ITS | Encounter Summary ---
:1985 Author Organization [place] Address [address] [place] [address]. [place] [address] Care Team Providers Name Role Phone Jose Dumont MD Primary Care Provider Reason for Visit Reason Onset Date Comments Results 06/15/2013 Encounter Details Date Type Department Care Team Description 06/15/2013 Telephone [facility] Women's MartinPete lake MD Results Clinic [place] [address] [place] [address] Social History Tobacco Use [...] you attend yazidi or Patient refused 2021 alevism services? Do [...] this encounter Miscellaneous Notes Telephone Encounter - EmmyMervat azul - 06/20/2013 5:53 PM CST Pt advsied of results and given start instructions for ocp. Advised back up control for first cycle. Mervat Antunez RN [employer] Telephone Encounter - Pete Martin - 06/20/2013 5:34 PM CST Please notify patient. Script sent. US normal. [employer] Telephone Encounter - Mervat Antunez - 06/20/2013 4:28 PM CST Pt calling again for u/s results and wanted a rx for new ocp sent to pharmacy. Pt states she was to start ocp Thursday (yesterday) [employer] Telephone Encounter - Mervat Antunez - 06/15/2013 8:57 AM CST Pt calling for results of u/s done 06/08/13. Pt advised of normal results, but is wondering about what are next steps. Pt aware MD out of office today, but will return to office tomorrow. Mervat Antunez RN [employer] documented in this encounter Plan of Treatment Not on filedocumented as of this encounter Visit Diagnoses Diagnosis Contraception - Primary Unspecified contraceptive management documented in this encounter Care Teams Senior Physical Therapist Relationship Specialty Start Date End Date Jose Dumont MD PCP - General Family Practice 01/29/12 03/20/15 [address] [id number] documented as of this encounter
--- OUTSIDE RECORDS SUMMARY | 2022-06-06 21:06 | XMS_ITS | Encounter Summary ---
:1985 Author Organization [facility] Address [address] [place] [address]. [place] [address] Care Team Providers Name Role Phone Jose Dumont MD Primary Care Provider Reason for Visit Reason Comments Vaginal Bleeding Encounter Details Date Type Department Care Team Description 04/01/2013 Office Visit [facility] Pete Martin Screening for STDs (sexually transmitted diseases) (Primary Dx); [facility] MD Alexandre Cervicitis [place] [address] [place] [address] Social History Tobacco Use Types [...] you attend methodist or Patient refused 2021 yazidism services? Do [...] Sign Reading Time Taken Comments Blood Pressure 112/68 04/01/2013 2:41 PM CDT Pulse - - Temperature - - Respiratory Rate - - Oxygen Saturation - - Inhaled Oxygen Concentration - - Weight 51.2 kg (112 lb 12.8 oz) 04/01/2013 2:41 PM CDT Height - - Body Mass Index 19.98 05/28/2012 9:31 AM CDT documented in this encounter Progress Notes Martin Pete - 04/08/2013 6:58 AM CDT SUBJECTIVE: Tameka Grissom is a 28 year old,single with post coital bleeding. Past Medical History Diagnosis Date ??? Papanicolaou smear of cervix with low grade squamous intraepithelial lesion (LGSIL) 02/15/08, 08/01/08, 04/05/09, 08/28/09 ??? History of colposcopy with cervical biopsy 02/24/08 PEDRO I, 11/21/08 PEDRO I, 04/10/09 PEDRO I &II, ??? Mild major depression ??? History of OCD (obsessive compulsive disorder) 01/29/2012 ??? Generalised anxiety disorder 01/29/2012 ??? Allergic rhinitis, seasonal Past Surgical History Procedure Date ??? C nonspecific procedure rt brest biopsy,benign ??? Cryotherapy 04/04/08, 12/14/08 ??? Colposcopy cervix, loop electrode biopsy, combined 04/24/09 PEDRO I & II Current Outpatient Prescriptions Medication ??? nitrofurantoin, macrocrystal-monohydrate, (MACROBID) 100 MG capsule ??? norgestim-eth estrad triphasic (TRI-SPRINTEC) 0.18/0.215/0.25 MG-35 MCG TABS tablet ??? carbamide peroxide (DEBROX) 6.5 % otic solution ??? fluticasone (FLONASE) 50 MCG/ACT nasal spray ??? citalopram (CELEXA) 40 MG tablet @ALLERGIE@ History Substance Use Topics ??? Smoking status: Never Smoker ??? Smokeless tobacco: Never Used ??? Alcohol Use: Yes Occaisional Review of Systems CONSTITUTIONAL:NEGATIVE EYES: NEGATIVE ENT/MOUTH: NEGATIVE RESP: NEGATIVE CV: NEGATIVE GI: NEGATIVE : NEGATIVE MUSCULOSKELATAL: NEGATIVE INTEGUMENTARY/SKIN: NEGATIVE BREAST: NEGATIVE NEURO: NEGATIVE. OBJECTIVE: BP 112/68 Wt 112 lb 12.8 oz (51.166 kg) LMP 03/23/2013 Pelvis: normal external genitalia, normal groin lymphatics, normal urethral meatus, normal vaginal mucosa and normal cervix ASSESSMENT: Post coital bleeding PLAN: 1)Consider empirical treatment with antibiotic if normal labs. Flagyl /doxycycline for cervicitis aspossible etiology. Ordered. documented in this encounter Nursing Notes 04/01/2013 2:30 PM CDT >> MARCE KELLER Fri Apr 01, 2013 3:10 PM Patient presents with: Vaginal Bleeding with intercourse. STD testing. Marce Keller MA Initial BP 112/68 Wt 112 lb 12.8 oz (51.166 kg) LMP 03/23/2013 Estimated Body mass index is 19.98 kg/(m^2) as calculated from the following: Height as of 05/28/12: 5' 3(1.6 m). Weight as of this encounter: 112 lb 12.8 oz(51.166 kg). BP completed using cuff size: regular documented in this encounter Plan of Treatment Not on filedocumented as of this encounter Procedures Procedure Name Priority Date/Time Associated Diagnosis Comme nts HIV 1 AND 2 ANTIBODY Routine 04/01/2013 3:33 PM Screening for STDs Results for this (QUEST) CDT (sexually procedure are i n transmitted the results diseases) section. ANTI TREPONEMA Routine 04/01/2013 3:33 PM Screening for STDs R esults for this CDT (sexually procedure are i n transmitted the results diseases) section. WET PREPARATION Routine 04/01/2013 3:26 PM Screening for STDs Results for this CDT (sexually procedure are i n transmitted the results diseases) section. NEISSERIA Routine 04/01/2013 3:26 PM Screening for STDs Res ults for this GONORRHOEAE PCR CDT (sexually procedure ar e in transmitted the results diseases) section. CHLAMYDIA Routine 04/01/2013 3:26 PM Screening for STDs Res ults for this TRACHOMATIS PCR CDT (sexually procedure ar e in transmitted the results diseases) section. documented in this encounter Results Anti treponema EIA (04/01/2013 3:33 PM CDT) [facility] Method Time Signature Treponema Negative NEG [facility] pallidum MICROBIOLOGY Antibody Specimen Anatomical Collection Method Collection Time Receive d Time (Source) Location / / Volume Laterality Blood specimen 04/01/2013 3:33 PM 013 3:38 (specimen) CDT PM CDT Pete Martin MD LAB - BLOOD ORDERABLES Performing Organization Address City/[facility]/ZIP Code Phon e Number [address] [address] [facility] MICROBIOLOGY HIV 1 and 2 Antibody (04/01/2013 3:33 PM CDT) [facility] Method [place] Signature HIV 1&2 Negative NEG [facility] Antibody MICROBIOLOGY Specimen Anatomical Collection Method Collection Time Receive d Time (Source) Location / / Volume Laterality Blood specimen 04/01/2013 3:33 PM 013 3:38 (specimen) CDT PM CDT Pete Martin MD LAB - BLOOD ORDERABLES Performing Organization Address City/[facility]/ZIP Code Phon e Number [address] [address] [facility] MICROBIOLOGY CHLAMYDIA TRACHOMATIS PCR (04/01/2013 3:26 PM CDT) Component Value Ref Test Analysis Performed At [facility] Method [facility] Specimen Cervical [facility] LAB Chlamydia Negative for C. trachomatis rRNA by asphalt paver mediated amplification. [facility] Trachomatis A negative result by transc ription mediated amplification does not preclude the MICROBIOLOGY PCR presence of C. trachomatis infection because results are dependent on proper and adequate collection, absence of inhibitors, and suffici ent rRNA to be detected. Specimen Anatomical Collection Method Collection Time Receive d Time (Source) Location / / Volume Laterality Cervical swab 04/01/2013 3:26 PM 04/01/20 13 3:50 (specimen) CDT PM CDT Pete Martin MD LAB - MICRO GENERAL ORDERABL ES Performing Organization Address City/[facility]/ZIP Code Phon e Number [address] [address] [facility] [address] [place], [place] [address] [facility] [phone] [address] [facility] MICROBIOLOGY NEISSERIA GONORRHOEA PCR (04/01/2013 3:26 PM CDT) Component Value Ref Test Analysis Performed At [facility] Method Time Signature Specimen Cervical [facility] LAB N Gonorrhea Negative for N. gonorrhoeae rRNA by asphalt paver mediated amplification. [facility] PCR A negative result by transc ription mediated amplification does not preclude the MICROBIOLOGY presence of N. gonorrhoeae infection because re sults are dependent on proper and adequate collection, absence of inhibitors, and suffici ent rRNA to be detected. Specimen Anatomical Collection Method Collection Time Receive d Time (Source) Location / / Volume Laterality Cervical swab 04/01/2013 3:26 PM 04/01/20 13 3:50 (specimen) CDT PM CDT Pete Martin MD LAB - MICRO GENERAL ORDERABL ES Performing Organization Address City/[facility]/ZIP Code Phon e Number [address] [address] [facility] [address], [place] [address] [address] [facility] MICROBIOLOGY Wet prep (04/01/2013 3:26 PM CDT) [facility] gist Method Time Signature Specimen Vagina [place] Description [facility] Wet Prep No Trichomonas seen [place] No clue cells seen [facility] No yeast seen CLINIC LAB Micro Report FINAL [place] Status 04/01/2013 [facility] LAB Specimen Anatomical Collection Method Collection Time Receive d Time (Source) Location / / Volume Laterality 04/01/2013 3:26 PM 3 3:50 CDT PM CDT Pete Martin MD LAB - MICRO GENERAL ORDERABL ES Performing Organization Address City/[facility]/ZIP Code Phon e Number [facility] [address], [place] [address] [address] [facility] [address], [place] [address] [address] documented in this encounter Visit Diagnoses Diagnosis Screening for STDs (sexually transmitted diseases) - Primary Screening examination for venereal disea se Cervicitis Cervicitis and endocervicitis documented in this encounter Care Teams Cable Way Operator Relationship Specialty Start Date End Date Jose Dumont MD PCP - General Family Practice 01/29/12 03/20/15 [address] [id number] documented as of this encounter
--- OUTSIDE RECORDS SUMMARY | 2022-06-06 21:06 | XMS_ITS | Encounter Summary ---
:1985 Author Organization [place] Address [facility] [place] [address] Care Team Providers Name Role Phone Jsoe Dumont MD Primary Care Provider Reason for Visit Reason Comments Ear Problem see 02/02/12 telephone encount er - reports L ear hearing loss and pressure contiues; PT did not see ENT , she states it was too much money for he - $700. Depression f/u - PT reports some fatigu e since starting medication. Encounter Details Date Type Department Care Team Description 03/10/2012 Office Visit [facility] Jose Dumont MD ETD (eustachian tube dysfunction) (Prima ry Dx); Clinic [facility] [address] [place] [address] Mild major depression (H) [address] [place] [address] [phone] Social History Tobacco Use Types Packs/Day Years [...] you attend confucianism or Patient refused 2021 druze services? Do [...] Reading Time Taken Comments Blood Pressure 98/68 03/10/2012 1:35 PM CDT Pulse 87 03/10/2012 1:35 PM CDT Temperature 36.6 ??C (97.9 ??F) 03/10/2012 1:35 PM CDT Respiratory Rate 12 03/10/2012 1:35 PM CDT Oxygen Saturation 98% 03/10/2012 1:35 PM CDT Inhaled Oxygen Concentration - - Weight 55.3 kg (122 lb) 03/10/2012 1:35 PM CDT Height 160 cm (5' 3) 03/10/2012 1:35 PM CDT Body Mass Index 21.61 03/10/2012 1:35 PM CDT documented in this encounter Patient Instructions Patient InstructionsJose Dumont MD - 03/10/2012 2:46 PM CDT F/U in 1 month to reassess anxiety/depression documented in this encounter Progress Notes Jose Dumont MD - 03/10/2012 1:43 PM CDT SUBJECTIVE: Tameka Grissom is a 26 year old female who presents to clinic today for the following health issues: Ongoing anxiety and depression since relationship breakup with boyfriend Left ear alteration of hearing quality despite using oral abx, abx drops, and ear wax drops when previosuly told no abnormal findings ?? She remains unemployed after losing job at [employer] Other concerns to address: none ROS: C: NEGATIVE for fever, chills, change in weight E/M: NEGATIVE for ear, mouth and throat problems R: NEGATIVE for significant cough or SOB CV: NEGATIVE for chest pain, palpitations or peripheral edema Problem list, Medication list, Allergies, and Medical/Social/Surgical histories reviewed in [facility] andupdated as appropriate. OBJECTIVE: BP 98/68 Pulse 87 Temp(Src) 97.9 ??F (36.6 ??C) (Oral) Resp 12 Ht 5' 3 (1.6 m) Wt 122 lb (55.339 kg) BMI 21.61 kg/m2 SpO2 98% LMP 02/25/2012 Body mass index is 21.61 kg/(m^2). GENERAL:: healthy, alert and no distress HENT: ear canals- normal; TMs- normal; Nose- normal; Mouth- no ulcers, no lesions NECK: no tenderness, no adenopathy, no asymmetry, no masses, no stiffness; thyroid- normal to palpation RESP: lungs clear to auscultation - no rales, no rhonchi, no wheezes CV: regular rates and rhythm, normal S1 S2, no S3 or S4 and no murmur, no click or rub - ABDOMEN: soft, no tenderness, no hepatosplenomegaly, no masses, normal bowel sounds ASSESSMENT/PLAN: Depression; initial episode-- Moderate Associated with the following complications: None Plan: No changes in the patient's current treatment plan Left ETD (eustachian tube dysfunction) (primary encounter diagnosis) Comment: Plan: fluticasone (FLONASE) 50 MCG/ACT nasal spray Contact me if unimproved in 14 days Mild major depression Comment:Improved Plan: Continue current med without change Risks, benefits and alternatives of treatments discussed. Plan agreed on. Follow up with Provider after next lab draw documented in this encounter Nursing Notes 03/10/2012 1:30 PM CDT >> ZACH SHARMA ThuMar 10, 2012 1:44 PM Patient presents with: Ear Problem - see 02/02/12 telephone encounter - reports L ear hearing loss and pressure contiues; PTdid not see ENT, she states it was too much money for he - $700. Depression - f/u - PT reports some fatigue since starting medication. Initial BP 98/68 Pulse 87 Temp(Src) 97.9 ??F (36.6 ??C) (Oral) Resp 12 Ht 5' 3 (1.6 m) Wt122 lb (55.339 kg) BMI 21.61 kg/m2 SpO2 98% LMP 02/25/2012 Estimated Body mass index is 21.61 kg/(m^2) as calculated from the following: Height as of this encounter: 5' 3(1.6 m). Weight as of this encounter: 122 lb(55.339 kg).. BP completed using cuff size: regular. Zach Sharma CMA documented in this encounter Plan of Treatment Not on filedocumented as of this encounter Visit Diagnoses Diagnosis ETD (eustachian tube dysfunction) - Prim cresencio Dysfunction of Eustachian tube Mild major depression (H) Major depressive disorder, single episod e, mild documented in this encounter Care Teams Knotter Hand Relationship Specialty Start Date End Date Jose Dumont MD PCP - General Family Practice 01/29/12 03/20/15 [address] [id number] documented as of this encounter
--- OUTSIDE RECORDS SUMMARY | 2022-06-06 21:06 | XMS_ITS | Encounter Summary ---
:1985 Author Organization [place] Address [facility] [place] [address] Care Team Providers Name Role Phone Jose Dumont MD Primary Care Provider Reason for Visit Reason Onset Date Comments Forms 07/05/2013 Records Request ([facility]) Encounter Details Date Type Department Care Team Description 07/05/2013 Telephone [facility] Pete Martin Forms ([employer] Request Cezar Schroeder MD ([facility])) [address] [place] [address] Social History Tobacco Use Types [...] you attend congregation or Patient refused 2021 spiritism services? Do [...] encounter Miscellaneous Notes Telephone Encounter - Jennifer Barragan - 07/05/2013 9:54 AM CST Per signed auth, faxed immunziations to [facility] @ [phone]. MING 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 documented in this encounter Plan of Treatment Not on filedocumented as of this encounter Visit Diagnoses Not on filedocumented in this encounter Care Teams Cuffing Machine Operator Relationship Specialty Start Date End Date Jose Dumont MD PCP - General Family Practice 01/29/12 03/20/15 [address] [id number] documented as of this encounter
--- OUTSIDE RECORDS SUMMARY | 2022-06-06 21:06 | XMS_ITS | Encounter Summary ---
:1985 Author Organization [place] Address [address] [place], [place] [address]. [place] [address] Care Team Providers Name Role Phone Jose Dumont MD Primary Care Provider Encounter Details Date Type Department Care Team Description 10/24/2012 Results Only [facility] Women's Hector Hernandez MD [facility] XXX RETIRED XXX [address] [place] [phone] (Wo rk) Social History Tobacco Use Types [...] you attend congregational or Patient refused 2021 holiness services? Do [...] of this encounter Plan of Treatment Scheduled Orders Name Type Priority Associated Diagnoses Order S chedule US Pelvic Complete w Imaging Ordered : 10/24/2012 Transvaginal documented as of this encounter Visit Diagnoses Not on filedocumented in this encounter Care Teams Search Engine Marketing Manager Relationship Specialty Start Date End Date Jose Dumont MD PCP - General Family Practice 01/29/12 03/20/15 [address] [id number] documented as of this encounter
--- OUTSIDE RECORDS SUMMARY | 2022-06-06 21:06 | XMS_ITS | Encounter Summary ---
:1985 Author Organization [place] Address [facility] [place] [address] Care Team Providers Name Role Phone Jose Dumont MD Primary Care Provider Reason for Visit Reason Comments Repeat Pap Smear Encounter Details Date Type Department Care Team Description 05/28/2012 Office Visit [facility] Pete Martin Papanicola ou smear of cervix with low grade squamous intraepithelial lesion (LGSIL) (Primary Dx); [facility] MD Alexandre Special scree jean examination for other specified chlamydial diseases; [place] Routine medical exam; [address] [place] [address] Social History Tobacco Use Types [...] you attend nondenominational or Patient refused 2021 mu-ism services? Do [...] Sign Reading Time Taken Comments Blood Pressure 98/66 05/28/2012 9:31 AM CDT Pulse - - Temperature - - Respiratory Rate - - Oxygen Saturation - - Inhaled Oxygen Concentration - - Weight 57.6 kg (126 lb 14.4 oz) 05/28/2012 9:31 AM CDT Height 160 cm (5' 3) 05/28/2012 9:31 AM CDT Body Mass Index 22.48 05/28/2012 9:31 AM CDT documented in this encounter Progress Notes [place] - 05/28/2012 10:10 AM CDT SUBJECTIVE: Marcelino Daley is a 27 year old, single female, P0 woman who presents for annual exam. Patient's last menstrual period was 05/19/2012. Periods are regular q 28-30 days, lasting [...] No Past Medical History Diagnosis Date ??? LGSIL on Pap smear 02/15/08, 08/01/08, 04/05/09, 08/28/09 ??? History of colposcopy with cervical biopsy 02/24/08 EPDRO I, 11/21/08 PEDRO I, 04/10/09 PEDRO I &II, ??? Mild major depression ??? History of OCD (obsessive compulsive disorder) 01/29/2012 ??? Generalised anxiety disorder 01/29/2012 ??? Allergic rhinitis, seasonal Past Surgical History Procedure Date ??? C nonspecific procedure rt brest biopsy,benign ??? Cryotherapy 04/04/08, 12/14/08 ??? Colposcopy cervix, loop electrode biopsy, combined 04/24/09 PEDRO I & II Current Outpatient Prescriptions Medication ??? norgestim-eth estrad triphasic (TRI-SPRINTEC) 0.18/0.215/0.25 MG-35 MCG TABS tablet ??? carbamide peroxide (DEBROX) 6.5 % otic solution ??? fluticasone (FLONASE) 50 MCG/ACT nasal spray ??? citalopram (CELEXA) 40 MG tablet Allergies Allergen Reactions ??? No Known Drug Allergies History Substance Use Topics ??? Smoking status: Never Smoker ??? Smokeless tobacco: Never Used ??? Alcohol Use: Yes Occaisional Review of Systems CONSTITUTIONAL:NEGATIVE EYES: NEGATIVE ENT/MOUTH: NEGATIVE RESP: NEGATIVE CV: NEGATIVE GI: NEGATIVE : NEGATIVE MUSCULOSKELATAL: NEGATIVE INTEGUMENTARY/SKIN: NEGATIVE BREAST: NEGATIVE NEURO: NEGATIVE. OBJECTIVE: BP 98/66 Ht 5' 3 (1.6 m) Wt 126 lb 14.4 oz (57.561 kg) BMI 22.48 kg/m2 LMP 05/19/2012 General appearance: Healthy. Skin: Normal. Mental Status: [...] and uterusantiverted. 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 KLESS TROLLEY DRIVER documented in this encounter Nursing Notes 05/28/2012 9:15 AM CDT >> MARCE KELLER Fri May 28, 2012 9:37 AM Patient presents with: Repeat Pap Smear Marce Keller MA Initial BP 98/66 Ht 5' 3 (1.6 m) Wt 126 lb 14.4 oz (57.561 kg) BMI 22.48 kg/m2 LMP 05/19/2012 Estimated Body mass index is 22.48 kg/(m^2) as calculated from the following: Height as of this encounter: 5' 3(1.6 m). Weight as of this encounter: 126 lb 14.4 oz(57.561 kg).. BP completed using cuff size: regular documented in this encounter Plan of Treatment Not on filedocumented as of this encounter Procedures Procedure Name Priority Date/Time Associated Diagnosis Comme nts PAP IMAGED THIN Routine 05/28/2012 11:12 Papanicolaou smear of Results for this LAYER, DIAGNOSTIC AM CDT cervix with low grade p rocedure are in squamous the results intraepithelial lesion secti on. (LGSIL) NEISSERIA Routine 05/28/2012 11:10 Special screening Result s for this GONORRHOEAE PCR AM CDT examination for other pro cedure are in specified chlamydial the res ults diseases section. CHLAMYDIA Routine 05/28/2012 11:10 Special screening Result s for this TRACHOMATIS PCR AM CDT examination for other pro cedure are in specified chlamydial the res ults diseases section. LIPID PROFILE Routine 05/28/2012 10:51 Routine medical exam Re sults for this AM CDT procedure are i n the results section. HIV 1 AND 2 Routine 05/28/2012 10:40 Special screening Result s for this ANTIBODY (QUEST) AM CDT examination for other pr ocedure are in specified chlamydial the res ults diseases section. HEPATITIS C Routine 05/28/2012 10:40 Special screening Result s for this ANTIBODY AM CDT examination for other proced ure are in specified chlamydial the res ults diseases section. HEPATITIS B SURFACE Routine 05/28/2012 10:40 Special screening Results for this ANTIGEN AM CDT examination for other proced ure are in specified chlamydial the res ults diseases section. ANTI TREPONEMA Routine 05/28/2012 10:40 Special screening Resu lts for this AM CDT examination for other proced ure are in specified chlamydial the res ults diseases section. documented in this encounter Results PAP imaged thin layer, diagnostic (05/28/2012 11:12 AM CDT) Component Value Ref Test Analysis Performed At [facility] Range Method Time Signature PAP NIL COPATH Copath Report COPATH Patient Name: MARCELINO DALEY MR#: [id number] Specimen #: [id number] Collected: 05/28/2012 Received: 05/31/2012 Reported: 06/01/2012 12:03 Ordering Phy(s): PETE MARTIN SPECIMEN/STAIN PROCESS: Pap Imaged thin layer prep diagnostic (SurePath, FocalPoint with guided screening) ? Pap-Cyto x 1, Reflex HPV x 1 SOURCE: Cervical, endocervical ---- Pap Imaged thin layer prep diagnostic (SurePath, FocalPoint with guided screening) SPECIMEN ADEQUACY: Satisfactory for evaluation. -Transformation zone component present. CYTOLOGIC INTERPRETATION: Negative for Intraepithelial Lesion or Malignancy Electronically signed out by: LANDEN Wallace (ASCP) Processed and screened at [facility] CLINICAL HISTORY: LMP: 05/19/2012 Oral Control Pill, Previous ASC-US: 12/31/2010, Papanicolaou Test Limitations: ??Cervical cytology is a scre ening test with limited sensitivity; regular screening is critical for cancer prevention; Pap tests are primarily effective for the diagnosis/prevention of squamous cell carcinoma, not adenoca rcinomas or other cancers. TESTING LAB LOCATION: [address] ??[phone] COLLECTION SITE: Client: ??[facility] Location: RIOB (R) Specimen (Source) Anatomical Collection Method Collection Time Re ceived Time Location / / Volume Laterality Cytologic 05/28/2012 11:12 05/31/2012 material AM CDT 11:25 AM TRACKLESS TROLLEY DRIVER (specimen) Pete Martin MD LAB - OPTIME CLINICAL SPECIM EN Performing Organization Address City/State/ZIP Code Phon e Number COPATH CHLAMYDIA TRACHOMATIS PCR (05/28/2012 11:10 AM CDT) Component Value Ref Test Analysis Performed At [facility] Range Method Time Signature Specimen Cervical [facility] LAB Chlamydia Negative for C. trachomatis rRNA by child protection specialist mediated amplification. [facility] Trachomatis A negative result by transc ription mediated amplification does not preclude the MICROBIOLOGY PCR presence of C. trachomatis infection because results are dependent on proper and adequate collection, absence of inhibitors, and suffici ent rRNA to be detected. Specimen Anatomical Collection Method Collection Time Receive d Time (Source) Location / / Volume Laterality Cervical swab 05/28/2012 11:10 05/28/2012 (specimen) AM CDT 11:15 AM CDT Pete Martin MD LAB - MICRO GENERAL ORDERABL ES Performing Organization Address City/[facility]/ZIP Code Phon e Number [address] [address] [facility] MICROBIOLOGY [place] GONORRHOEA PCR (05/28/2012 11:10 AM CDT) Component Value Ref Test [facility] Range Method Time Signature Specimen Cervical [facility] N Gonorrhea Negative for N. gonorrhoeae rRNA by child protection specialist mediated amplification. [facility] PCR A negative result by transc ription mediated amplification does not preclude the MICROBIOLOGY presence of N. gonorrhoeae infection because re sults are dependent on proper and adequate collection, absence of inhibitors, and suffici ent rRNA to be detected. Specimen Anatomical Collection Method Collection Time Receive d Time (Source) Location / / Volume Laterality Cervical swab 05/28/2012 11:10 05/28/2012 (specimen) AM CDT 11:15 AM CDT Pete Martin MD LAB - MICRO GENERAL ORDERABL ES Performing Organization Address City/[facility]/ZIP Code Phon e Number [address] [address] [facility] MICROBIOLOGY Lipid Profile (Chol, Trig, HDL, LDL calc) (05/28/2012 10:51 AM CDT) P athologist Signature Cholesterol 199 0 - 200 [facility] Comment: LDL Cholesterol is the primary guide to therapy. The NCEP recommends further evaluation of: patients with cholesterol greater than 200 mg/dL if additional risk facto rs are present, cholesterol greater than 240 mg/dL, triglycerides greater than 1 50 mg/dL, or HDL less than 40 mg/dL. Triglycerides 86 0 - 150 mg/dL [facility] HDL Cholesterol 86 50 - 110 mg/dL [facility] LDL Cholesterol Calculated 95 0 - 129 mg/dL [facility] Comment: LDL Cholesterol is the primary guide to therapy: LDL-cholesterol goal in high risk patients is <100 mg/dL and in very high risk patients is <70 mg/dL. VLDL-Cholesterol 17 0 - 30 mg/dL [facility] Cholesterol/HDL Ratio 2.3 0.0 - 5.0 [facility] Specimen Anatomical Collection Method Collection Time Receive d Time (Source) Location / / Volume Laterality Blood specimen 05/28/2012 10:51 2 (specimen) AM CDT 10:56 AM CDT Pete Martin MD LAB - BLOOD ORDERABLES Performing Organization Address City/State/ZIP Code Phon e Number [address] [address] [facility] Hepatitis C antibody (05/28/2012 10:40 AM CDT) Patholo gist Method Time Signature Hepatitis C Negative NEG [facility] Antibody MICROBIOLOGY Specimen Anatomical Collection Method Collection Time Receive d Time (Source) Location / / Volume Laterality Blood specimen 05/28/2012 10:40 2 (specimen) AM CDT 10:45 AM CDT Pete Martin MD LAB - BLOOD ORDERABLES Performing Organization Address City/State/ZIP Code Phon e Number [facility] [address] [place] [address] [place] [facility] MICROBIOLOGY Hepatitis B surface antigen (05/28/2012 10:40 AM CDT) Patholo gist Method Time Signature Hep B Surface Negative NEG [facility] Agn MICROBIOLOGY Specimen Anatomical Collection Method Collection Time Receive d Time (Source) Location / / Volume Laterality Blood specimen 05/28/2012 10:40 2 (specimen) AM CDT 10:45 AM CDT Pete Martin MD LAB - BLOOD ORDERABLES Performing Organization Address City/State/ZIP Code Phon e Number [facility] [address] [place] [address] [facility] MICROBIOLOGY Anti treponema EIA (05/28/2012 10:40 AM CDT) Analysis Performed At Patho logist Time Signature Treponema Negative NEG [facility] pallidum [place] [facility] Specimen Anatomical Collection Method Collection Time Receive d Time (Source) Location / / Volume Laterality Blood specimen 05/28/2012 10:40 2 (specimen) AM CDT 10:45 AM CDT Pete Martin MD LAB - BLOOD ORDERABLES Performing Organization Address City/State/ZIP Code Phon e Number [facility] [address] [place] [address] [facility] HIV 1 and 2 Antibody (05/28/2012 10:40 AM CDT) [facility] gist Method Time Signature HIV 1&2 Negative NEG [facility] Antibody MICROBIOLOGY Specimen Anatomical Collection Method Collection Time Receive d Time (Source) Location / / Volume Laterality Blood specimen 05/28/2012 10:40 2 (specimen) AM CDT 10:45 AM CDT Pete Martin MD LAB - BLOOD ORDERABLES Performing Organization Address City/[facility] Code Phon e Number [facility] [address] [place] [address] [facility] MICROBIOLOGY documented in this encounter Visit Diagnoses Diagnosis Papanicolaou smear of cervix with low gr nella squamous intraepithelial lesion (LGSIL) - Primary Special screening examination for other specified chlamydial diseases Routine medical exam Routine general medical examination at a health care facility Contraception Unspecified contraceptive management documented in this encounter Care Teams Peer Counselor Relationship Specialty Start Date End Date Jose Dumont MD PCP - General Family Practice 01/29/12 03/20/15 [id number] [phone] documented as of this encounter
--- OUTSIDE RECORDS SUMMARY | 2022-06-06 21:06 | XMS_ITS | Encounter Summary ---
:1985 Author Organization [facility] Address [address] [place] [address]. [place] [address] Care Team Providers Name Role Phone Jose Dumont MD Primary Care Provider Reason for Visit Reason Onset Date Comments Nurse Advice Line 01/30/2012 Encounter Details Date Type Department Care Team Description 01/30/2012 Telephone [facility] Manuela Dumont MD Nurse Advice Line [id number] [place] [id number] [place] [address] ([place]) [address] [phone] Social History Tobacco Use Types Packs/Day Years [...] you attend worship or Patient refused 2021 worship services? Do [...] for the very basics like Not h urthie at all 10/17/2021 food, housing, medical care, [...] this encounter Miscellaneous Notes Telephone Encounter - Angela Duckworth - 03/06/2012 11:54 AM CDT [facility] Triage Call Report Patient Name: Tameka Grissom Call Date & Time: 01/30/2012 6:25:39AM Patient PCP Name: Patient Address: [address] [place] [address] [phone] Patient Date of : 1985 Age: 26 yr. Patient Gender: Female Coin Box Collector Name: Luigi Stein Presenting Problem: I am doing ear drops for swimmer's ear and I can't hear out of my ear yet. Denies pain or fever. Patient has used 2 doses of ear drops. Triage Note: Guideline Title: Ear - Hearing Symptoms Recommended Disposition: Override Disposition: Provide Home/Self Care Question Response Question Note New episode of ringing in ear or hearing loss AND other No symptoms or deficits suggestive of acute stroke Any ear injury or foreign body No Immediate and complete hearing loss associated with any No trauma, barotrauma (e.g., pressure change with underwater diving) or with physical straining Bloody ear drainage No Any ear drainage in immunocompromised person No New onset of severe vertigo or dizziness and ringing in the No ears, lasting hours to days, and associated hearing loss Loud ringing in the ears AND frequent or high doses of No aspirin or aspirin products Pain in ear followed by a pop and new or sudden onset of No change in hearing, ringing in ear, ear drainage, or continued pain that does not resolve within 12 hours Sudden hearing loss and drainage from ear No Feeling of fullness, throbbing in ear(s) AND unresponsive No to 48 hours of home care Decreased hearing OR ringing in ear(s) AND symptoms No began after starting new OTC, prescription or alternative/complementary medication(s) New decreased hearing AND diagnosed with multiple No sclerosis (MS) or Meniere's disease Muffled hearing and suspected ear wax buildup AND No unresolved with home care Severe, persistent tinnitus (ringing in ears) lasting more No than 7 days AND depression Severe, persistent tinnitus AND not previously evaluated No Gradual hearing loss, in one or both ears, self-reported or No reported by significant other Plugged or hollow feeling in ear(s) accompanied by a dry No non-productive cough OR recent air travel or underwater diving Ear fullness/pressure along with symptoms of a cold/URI No or diagnosed seasonal allergies All other situations Yes Physician Contacted: Physician Instructions: No Care Advice: - If constantly exposed to high level of sound, use earplugs or other protective devices to preventirreversible hearing loss. - Call provider if new symptoms, such as dizziness, nausea / vomiting, vertigo, or headache occur. - Do not put any object (e.g., Q-Tip or karma pin) or medications or OTC ear drops in the ear unless directed to do so by your provider. - Do not use cotton swabs to remove ear wax; may push the earwax deeper into ear canal making it more difficult to remove. Do not use hair pins or other objects that may injure the thin skin of the ear canal. - Call provider if pain, tenderness or swelling around ear area; headache, or discharge from ear develop. - When Traveling By Air: - During airplane descent, swallow, yawn, autoinflate by breathing in, or hold nose gently and blowout while keeping mouth closed. - Chewing gum or sucking on candy will stimulate swallowing. - Do not sleep during the descent. - People with an upper respiratory infection may consider taking an OTC decongestant nasal spray ororal decongestant an hour before takeoff and landing, if not contraindicated by an existing diagnosis. - Consider use of OTC filtered earplugs (e.g. Ear Planes) which slowly equalize ear pressure duringtakeoff and landing. - When ear is draining, wipe away the material as it drains. Do not try to clean ear canal. MEDICAL HISTORY Conditions: Condition Note: Medication: Medication Note: Allergy: Reaction: Procedure: Procedure Note: documented in this encounter Plan of Treatment Not on filedocumented as of this encounter Visit Diagnoses Not on filedocumented in this encounter Care Teams Adult Psychiatrist Relationship Specialty Start Date End Date Jose Dumont MD PCP - General Family Practice 01/29/12 03/20/15 [id number] [id number] documented as of this encounter
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
--- OUTSIDE RECORDS SUMMARY | 2022-06-06 21:06 | XMS_ITS | Encounter Summary ---
:1985 Author Organization [place] Address Formerly [facility], [facility] [place] [address] Care Team Providers Name Role Phone Jose Dumont MD Primary Care Provider Reason for Visit Reason Onset Date Comments Panel Management 06/08/2013 Depression Encounter Details Date Type Department Care Team Description 06/08/2013 Telephone [facility] Kerri Reyes MD Panel Management [address] (Depression) [id number] [place] [id number] [phone] Social History Tobacco Use Types Packs/Day Years [...] you attend tenriism or Patient refused 2021 latter-day services? Do [...] this encounter Miscellaneous Notes Telephone Encounter - RakeshBetzaidaTenisha - 06/10/2013 1:29 PM CST PHQ-9 updated, patient is not able to afford coming in to the clinic and can not afford medications.Patient stated that she is in a very bad living situation. Patient information was given to Pamella ( oncology social worker). She will call patient and offer assistance. Patient stated that she lost her mom recently and that she has not been on medications for depression since 4 months after starting meds. Betzaida Cameron CMA LLER OPERATOR Telephone Encounter - RakeshTenisha ivan - 06/10/2013 11:32 AM CST Panel Management Review Date of last visit with a [facility] provider: Veronica on 04/04/13. Date of next visit with a [facility] provider: None. Problem List Patient Active Problem List Diagnosis ??? Mild Dysplasia of Cervix ??? Moderate Dysplasia of Cervix ??? Mild major depression ??? CARDIOVASCULAR SCREENING; LDL GOAL LESS THAN 160 ??? LGSIL on Pap smear ??? History of OCD (obsessive compulsive disorder) ??? Generalised anxiety disorder Health Maintenance List Health Maintenance Topic Date Due ??? Phq-9 Q6 Months (No Inbasket) 09/10/2012 ??? Influenza Vaccine (System Assigned) 04/26/2013 ??? Pap Screening Q3 Yr (System Assigned) 05/28/2015 ??? Tetanus Q10 Yr 01/07/2017 For diabetic patients with hypertension and/or hyperlipidemia, only choose diabetes. Patient has the following on her problem list: Depression / Dysthymia review PHQ-9 SCORE (FM) 09/25/2011 01/29/2012 03/10/2012 Total Score 20 17 9 Patient is due for: PHQ9 Composite cancer screening Chart review shows that this patient is due/due soon for the following None PAP NIL 05/28/2012 Past Surgical History Procedure Date ??? C nonspecific procedure rt brest biopsy,benign ??? Cryotherapy 04/04/08, 12/14/08 ??? Colposcopy cervix, loop electrode biopsy, combined 04/24/09 PEDRO I & II Is hysterectomy listed in surgical history? No Is mastectomy listed in surgical history? No Tobacco History History Smoking status ??? Never Smoker Smokeless tobacco ??? Never Used Summary: Patient is due/failing the following: PHQ9 Action needed: Patient needs office visit for Medication recheck. and Patient needs to do PHQ9. Type of outreach: Phone, left message for patient to call back. Questions for provider review: None Please indicate office visit, lab, MTM, or nurse appt if needed. Indicate fasting or not fasting. Betzaida Cameron CMA Chart routed to Care Team . LLER OPERATOR Telephone Encounter - Kerri Wilkes MD - 06/08/2013 9:29 AM CST Time for med check appt with Dr. Dumont. She is on celexa and due for PHQ-9 LLER OPERATOR documented in this encounter Plan of Treatment Not on filedocumented as of this encounter Visit Diagnoses Not on filedocumented in this encounter Care Teams Farm Crew Member Relationship Specialty Start Date End Date Jose Dumont MD PCP - General Family Practice 01/29/12 03/20/15 [address] [id number] documented as of this encounter
--- OUTSIDE RECORDS SUMMARY | 2022-06-06 21:06 | XMS_ITS | Encounter Summary ---
:1985 Author Organization [place] Address [address] [place] [address]. [place] [address] Care Team Providers Name Role Phone Jose Dumont MD Primary Care Provider Reason for Visit Reason Onset Date Comments Call To Schedule Appointment 07/08/2013 Pap due 2012 Encounter Details Date Type Department Care Team Description 07/08/2013 Telephone [facility] Pete Martin Call To [facility] MD Alexandre Appointment ( Pap due [place] 05/2013) [address] [place] [phone] Social History Tobacco Use Types Packs/Day Years [...] you attend jainism or Patient refused 2021 protestant services? Do [...] this encounter Miscellaneous Notes Telephone Encounter - Ari, Pamella M, RN - 10/11/2013 12:20 PM CDT Pt had a pap done on 10/10/13. Geronimo Chapman, RN Telephone Encounter - Michelle Olvera - 09/26/2013 1:48 PM CST 09/26/13 Received certified letter card signed on 09/19/13. Copy sent to abstraction and POTATO CHIP PROCESSING SUPERVISOR. 09/26/13gr CAL ANTHROPOLOGY DIRECTOR Telephone Encounter - Michelle Olvera - 09/15/2013 2:48 PM CST 09/15/13 Mailed certified letter. HIMS/gr CAL ANTHROPOLOGY DIRECTOR Telephone Encounter - Michelle Olvera - 09/15/2013 9:07 AM CST Certified letter sent. CAL ANTHROPOLOGY DIRECTOR Telephone Encounter - Pamella Chapman - 09/13/2013 2:45 PM CST Please send certified letter to pt. Nancy. Pamella CAL ANTHROPOLOGY DIRECTOR Telephone Encounter - Michelle Olvera - 07/08/2013 12:52 PM CST Letter sent for Tameka to return our call and schedule a pap due 05/2013. Tameka Grissom - dx pap 06/08 - Patient reminder << Less Detail dx pap 06/08 Pamella Chapman ([phone]) Sent: ThuJuly 07, 2013 9:37 AM To: P Ri Pap Flags: Patient reminder Tameka Grissom : 1985 Pt Home: Message Dx pap due 06/08 CAL ANTHROPOLOGY DIRECTOR documented in this encounter Plan of Treatment Not on filedocumented as of this encounter Visit Diagnoses Not on filedocumented in this encounter Care Teams Feed Grinder Relationship Specialty Start Date End Date Jose Dumont MD PCP - General Family Practice 01/29/12 03/20/15 [address] [id number] documented as of this encounter
--- OUTSIDE RECORDS SUMMARY | 2022-06-06 21:06 | XMS_ITS | Encounter Summary ---
:1985 Author Organization [place] Address [address] [place] [address]. [place] [address] Care Team Providers Name Role Phone Jose Dumont MD Primary Care Provider Reason for Visit Reason Comments STD Encounter Details Date Type Department Care Team Description 11/12/2012 Office Visit [facility] Pete Martin Screening examination [facility] MD Alexandre for STD (shermanu franny [place] transmitted disease) [address] (Primary Dx) [address] [place] [phone] Social History Tobacco Use Types Packs/Day Years [...] or relatives? How often do you attend restorationism or Patient refused 2021 uatsdin services? Do you belong to any clubs or No 10/17/2021 organizations such as restorationism groups, unions, fraternal or athletic groups, or [...] Reading Time Taken Comments Blood Pressure 110/80 11/12/2012 2:41 PM CDT Pulse - - Temperature - - Respiratory Rate - - Oxygen Saturation - - Inhaled Oxygen Concentration - - Weight 50.4 kg (111 lb 1.6 oz) 11/12/2012 2:41 PM CDT Height - - Body Mass Index 19.68 05/28/2012 9:31 AM CDT documented in this encounter Progress Notes Martin Pete - 11/12/2012 3:50 PM CDT SUBJECTIVE: Tameka Grissom is a 27 year old, single female,presents with concerns of chlamydial infection afterlearning boyfriend had chlamydia. No other concerns. Past Medical History Diagnosis Date ??? Papanicolaou [...] NEGATIVE BREAST: NEGATIVE NEURO: NEGATIVE. OBJECTIVE: BP 110/80 Wt 111 lb 1.6 oz (50.395 kg) LMP 11/05/2012 Pelvis: Gynprobe and wet prep done, normal external genitalia, normal groin lymphatics, normal urethral meatus, normal vaginal mucosa and normal cervix ASSESSMENT: STD testing PLAN: 1) See labs documented in this encounter Nursing Notes 11/12/2012 2:30 PM CDT >> MARCE KELLER Fri Nov 12, 2012 2:48 PM Patient presents with: STD check. Marce Keller MA Initial BP 110/80 Wt 111 lb 1.6 oz (50.395 kg) LMP 11/05/2012 Estimated Body mass index is 19.68kg/(m^2) as calculated from the following: Height as of 12: 5' 3(1.6 m). Weight as of this encounter: 111 lb 1.6 oz(50.395 kg).. BP completed using cuff size: regular documented in this encounter Plan of Treatment Not on filedocumented as of this encounter Procedures Procedure Name Priority Date/Time Associated Diagnosis Comme nts HIV 1 AND 2 ANTIBODY Routine 11/12/2012 3:52 PM Screening R esults for this (QUEST) CDT examination for STD procedur e are in (sexually the results transmitted disease) section . ANTI TREPONEMA Routine 11/12/2012 3:52 PM Screening Results for this CDT examination for STD procedur e are in (sexually the results transmitted disease) section . WET PREPARATION Routine 11/12/2012 3:37 PM Screening Result s for this CDT examination for STD procedur e are in (sexually the results transmitted disease) section . NEISSERIA Routine 11/12/2012 2:48 PM Screening Results f or this GONORRHOEAE PCR CDT examination for STD proce dure are in (sexually the results transmitted disease) section . CHLAMYDIA Routine 11/12/2012 2:48 PM Screening Results f or this TRACHOMATIS PCR CDT examination for STD proce dure are in (sexually the results transmitted disease) section . documented in this encounter Results Anti treponema EIA (11/12/2012 3:52 PM CDT) Patholo gist Method Time Signature Treponema Negative NEG [facility] pallidum MICROBIOLOGY Antibody Specimen Anatomical Collection Method Collection Time Receive d Time (Source) Location / / Volume Laterality Blood specimen 11/12/2012 3:52 PM 013 3:58 (specimen) CDT PM CDT Pete Martin MD LAB - BLOOD ORDERABLES Performing Organization Address City/[facility]/ZIP Code Phon e Number [facility] [address] [place], [place] [id number] [place] [address] MICROBIOLOGY HIV 1 and 2 Antibody (11/12/2012 3:52 PM CDT) Analysis Performed At Patho logist Time Signature HIV 1&2 Negative NEG [facility] Antibody [facility] LABS Specimen Anatomical Collection Method Collection Time Receive d Time (Source) Location / / Volume Laterality Blood specimen 11/12/2012 3:52 PM 013 3:58 (specimen) CDT PM CDT Pete Martin MD LAB - BLOOD ORDERABLES Performing Organization Address City/[facility] Phon e Number [facility] [address] [place], [place] [phone] [place] [address] LABS Wet prep (11/12/2012 3:37 PM CDT) [facility] Method Time Signature Specimen Vagina [facility] LAB Wet Prep No Trichomonas seen GANADO No clue cells seen [facility] No yeast seen CLINIC LAB Micro Report FINAL GANADO Status 11/12/2012 [facility] LAB Specimen Anatomical Collection Method Collection Time Receive d Time (Source) Location / / Volume Laterality 11/12/2012 3:37 PM 3 4:02 CDT PM CDT Pete Martin MD LAB - MICRO GENERAL ORDERABL ES Performing Organization Address City/[facility]/ZIP [facility] Phon e Number [facility] [address] [place], [place] [address] [address] [facility] LAB [address] [place], [place] [address] [address] CHLAMYDIA TRACHOMATIS PCR (11/12/2012 2:48 PM CDT) Component Value Ref Test Analysis Performed At [facility] Range Method Time Signature Specimen Cervical [facility] LAB Chlamydia Negative for C. trachomatis rRNA by dust control engineer mediated amplification. [facility] Trachomatis A negative result by transc ription mediated amplification does not preclude the MICROBIOLOGY PCR presence of C. trachomatis infection because results are dependent on proper and adequate collection, absence of inhibitors, and suffici ent rRNA to be detected. Specimen Anatomical Collection Method Collection Time Receive d Time (Source) Location / / Volume Laterality Cervical swab 11/12/2012 2:48 PM 11/13/19 13 3:46 (specimen) CDT PM CDT Pete Martin MD LAB - MICRO GENERAL ORDERABL ES Performing Organization Address [facility] Phon e Number [address] [address] [facility] LAB [address] [place], [place] [address] [address] [facility] MICROBIOLOGY NEISSERIA GONORRHOEA PCR (11/12/2012 2:48 PM CDT) Component Value Ref Test Analysis Performed At [facility] Range Method Time Signature Specimen Cervical [facility] LAB N Gonorrhea Negative for N. gonorrhoeae rRNA by dust control engineer mediated amplification. [facility] PCR A negative result by transc ription mediated amplification does not preclude the MICROBIOLOGY presence of N. gonorrhoeae infection because re sults are dependent on proper and adequate collection, absence of inhibitors, and suffici ent rRNA to be detected. Specimen Anatomical Collection Method Collection Time Receive d Time (Source) Location / / Volume Laterality Cervical swab 11/12/2012 2:48 PM 11/13/19 13 3:46 (specimen) CDT PM CDT Pete Martin MD LAB - MICRO GENERAL ORDERABL ES Performing Organization Address [facility] Phon e Number [address] [address] [facility] LAB [address] [place], [place] [address] [address] [facility] MICROBIOLOGY documented in this encounter Visit Diagnoses Diagnosis Screening examination for STD (sexually transmitted disease) - Primary Screening examination for venereal disea se documented in this encounter Care Teams Surveying Technician Relationship Specialty Start Date End Date Jose Dumont MD PCP - General Family Practice 01/29/12 03/20/15 [address] [id number] documented as of this encounter
--- OUTSIDE RECORDS SUMMARY | 2022-06-06 21:06 | XMS_ITS | Encounter Summary ---
:1985 Author Organization [place] Address [address] [place] [address]. [place] [address] Care Team Providers Name Role Phone Jose Dumont MD Primary Care Provider Reason for Visit Reason Onset Date Comments Lab Result Notice 04/08/2013 Encounter Details Date Type Department Care Team Description 04/08/2013 Telephone [facility] Pete Martin, Lab Result Notice Portagemarianna Restrepo MD [address] [place] [phone] Social History Tobacco Use Types [...] you attend restorationist or Patient refused 2021 latter day services? [...] this encounter Miscellaneous Notes Telephone Encounter - Alexey Ericka - 04/08/2013 8:25 AM CDT Pt notified to citrus picker Rx. Ericka Blackburn RN Telephone Encounter - Pete Martin - 04/08/2013 7:11 AM CDT Please notify patient. Negative labs. Will treat for possible cervicitis with Flagyl/Doxycycline, Sent by e-scribe. documented in this encounter Plan of Treatment Not on filedocumented as of this encounter Visit Diagnoses Not on filedocumented in this encounter Care Teams Skilled Nursing Professional Relationship Specialty Start Date End Date Jose Dumont MD PCP - General Family Practice 01/29/12 03/20/15 [address] [phone] documented as of this encounter
--- OUTSIDE RECORDS SUMMARY | 2022-06-06 21:06 | XMS_ITS | Encounter Summary ---
:1985 Author Organization [place] Address [facility] [place] [address] Care Team Providers Name Role Phone Jose Dumont MD Primary Care Provider Encounter Details Date Type Department Care Team Description 06/25/2012 Office Visit [facility] Pete Aquino, Chacho goins (Primary Dx); Clinic [place] ETD (eustachian tube dysfunction) [address] [place] [phone] Social History Tobacco Use Types Packs/Day Years [...] documented as of this encounter Progress Notes Pete Aquino MD - 06/26/2012 9:18 PM CST Seen twice for plugged left ear. RX time and nasal spray No paion no fever Ex Ears full of cerumen, lavaged. Post lavage, retracted left ear drum, reduced Right hearing A ETD Cerumen Ear care discussed. Use nasal steroid Pete Aquino MD 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 documented in this encounter Plan of Treatment Not on filedocumented as of this encounter Visit Diagnoses Diagnosis Impacted cerumen - Primary ETD (eustachian tube dysfunction) Dysfunction of Eustachian tube documented in this encounter Care Teams Ruby On Rails Engineer Relationship Specialty Start Date End Date Jose Dumont MD PCP - General Family Practice 01/29/12 03/20/15 [address] [phone] documented as of this encounter
--- OUTSIDE RECORDS SUMMARY | 2022-06-06 21:06 | XMS_ITS | Encounter Summary ---
:1985 Author Organization [facility] [place] Address [address] [place] [address]. [place] [address] Care Team Providers Name Role Phone Jose Dumont MD Primary Care Provider Reason for Visit Reason Onset Date Comments Ear Problem 01/30/2012 Encounter Details Date Type Department Care Team Description 01/30/2012 Telephone [facility] Manuela Dumont MD Ear Problem [place] [id number] [place], [place] [id number] [phone] Social History Tobacco Use Types Packs/Day Years [...] you attend protestant or Patient refused 2021 pentecostal services? Do [...] Miscellaneous Notes Telephone Encounter - Emani Cervantes - 01/30/2012 12:17 PM CDT Patient informed and will pick-up script. Message handled by Nurse Triage Emani Cervantes R.N. Telephone Encounter - Jose Dumont MD - 01/30/2012 12:07 PM CDT scripted Telephone Encounter - Taqueria Young - 01/30/2012 12:02 PM CDT LMOM per Dr. Dumont oral antibiotic sent to pharmacy. Check with pharmacy ~3 PM today. Call back as needed. Taqueria Limon RN Telephone Encounter - Taqueria Young - 01/30/2012 11:45 AM CDT Pt reports difficulty hearing from left ear getting worse since visit with Dr. Dumont yesterday. Otitis externa: [id number] (CORTISPORIN) [id number] otic suspension Yellow discharge coming from ear today when she scratches at ear canal with fingernail. Advised to stop scratching, continue ear drops and come in tomorrow AM for re-eval if symptoms continue to worsen. Pt does not agree to plan. She does not have medical insurance and does not want to pay for another visit. Please advise. Taqueria Limon RN documented in this encounter Plan of Treatment Not on filedocumented as of this encounter Visit Diagnoses Not on filedocumented in this encounter Care Teams Chief Technician Relationship Specialty Start Date End Date Jose Dumont MD PCP - General Family Practice 01/29/12 03/20/15 [address] [phone] documented as of this encounter
--- OUTSIDE RECORDS SUMMARY | 2022-06-06 21:06 | XMS_ITS | Encounter Summary ---
:1985 Author Organization [place] Address [facility] [place] [address] Care Team Providers Name Role Phone Jose Dumont MD Primary Care Provider Reason for Visit Reason Onset Date Comments Refill Request 05/21/2012 [facility] Encounter Details Date Type Department Care Team Description 05/21/2012 Refill [facility] Rich Martin Refill Request ([facility]) [address] [place], [place] [phone] [place] [address] Social History Tobacco Use Types [...] you attend holiness or Patient refused 2021 temple services? Do [...] encounter Miscellaneous Notes Telephone Encounter - Mervat Antnuez - 05/21/2012 1:01 PM CDT Faxed refill request received. requesting supply for [facility]. LEEP 07/07/11. Pt was to repeat pap in 1 year. Due 07/07/12. Medication filled per protocol Mervat Antunez RN documented in this encounter Plan of Treatment Not on filedocumented as of this encounter Visit Diagnoses Diagnosis Contraception - Primary Unspecified contraceptive management documented in this encounter Care Teams Semiautomatic Taper Operator Relationship Specialty Start Date End Date Jose Dumont MD PCP - General Family Practice 01/29/12 03/20/15 [address] [phone] documented as of this encounter
--- OUTSIDE RECORDS SUMMARY | 2022-06-06 21:06 | XMS_ITS | Encounter Summary ---
:1985 Author Organization [place] Address [facility] [place] [address] Care Team Providers Name Role Phone Jose Dumont MD Primary Care Provider Reason for Visit Reason Onset Date Comments Medication Request 01/29/2012 change paroxetine to citalopram Encounter Details Date Type Department Care Team Description 01/29/2012 Telephone [facility] Jose Dumont MD Medication Request Clinic [address] ([place] [address] [facility] [place] citalopram) [place] [phone] (Wo rk) Social History Tobacco Use Types [...] you attend worship or Patient refused 2021 taoist services? Do [...] this encounter Miscellaneous Notes Telephone Encounter - Jose Dumont MD - 01/30/2012 12:07 PM CDT Added keflex for her ear Telephone Encounter - Rajwinder Milton - 01/30/2012 10:34 AM CDT Pt states she did research on both medications and citalopram is better Also her grandma is on citalopram and she has had better results with this medication and recommended it. Telephone Encounter - Jose Dumont MD - 01/30/2012 7:49 AM CDT Hmnnn, citalopram scripted. Is there a specific reason as to why she desired the switch? Let her know.ask. Thx Telephone Encounter - Mariia Macias - 01/29/2012 6:44 PM CDT Patient called again, she is upset and wondering why this hasn't been changed yet. I explained to her no longer in the office and it will be addressed by him tomorrow. I tried to explain to her the medication takes time to work and one dose won't give her the therapeutic effect. Patient responded thanks- have a good night then hung up Mariia Macias R.N. Telephone Encounter - Taqueria Young - 01/29/2012 4:14 PM CDT Pt calls re visit earlier today. She has decided against taking paroxetine, requests Rx changed to citalopram. Taqueria Limon RN documented in this encounter Plan of Treatment Not on filedocumented as of this encounter Visit Diagnoses Diagnosis Mild major depression (H) Major depressive disorder, single episod e, mild History of OCD (obsessive compulsive dis order) Personal history of neurosis Generalised anxiety disorder Generalized anxiety disorder Other acute otitis externa documented in this encounter Care Teams Upholstery Cutter Relationship Specialty Start Date End Date Jose Dumont MD PCP - General Family Practice 01/29/12 03/20/15 [address] [phone] documented as of this encounter
--- OUTSIDE RECORDS SUMMARY | 2022-06-06 21:06 | XMS_ITS | Encounter Summary ---
:1985 Author Organization [place] Address [address] [place] [address]. [place] [address] Care Team Providers Name Role Phone Jose Dumont MD Primary Care Provider Reason for Visit Reason Comments Ear Problem PT complains of L ear conges tion, ongoing. Encounter Details Date Type Department Care Team Description 01/29/2012 Office Visit [facility] Jose Dumont MD Mild major depression (H); Clinic [address] History of OCD (obsessive co mpulsive disorder); [address] [place] [address] Generalised anxiety disorder; [place], [place] [facility] [place] Other acu te otitis externa [id number] [phone] Social History Tobacco Use Types Packs/Day Years [...] you attend jew or Patient refused 2021 buddhist services? Do [...] Sign Reading Time Taken Comments Blood Pressure 94/56 01/29/2012 3:01 PM CDT Pulse 90 01/29/2012 3:01 PM CDT Temperature 36.9 ??C (98.4 ??F) 01/29/2012 3:01 PM CDT Respiratory Rate 12 01/29/2012 3:01 PM CDT Oxygen Saturation 95% 01/29/2012 3:01 PM CDT Inhaled Oxygen Concentration - - Weight 56.7 kg (125 lb) 01/29/2012 3:01 PM CDT Height 159.1 cm (5' 2.63) 01/29/2012 3:01 PM CDT Body Mass Index 22.41 01/29/2012 3:01 PM CDT documented in this encounter Patient Instructions Patient InstructionsJose Dumont MD - 01/29/2012 4:13 PM CDT F/U in 3-4 weeks documented in this encounter Progress Notes Karthik Butler - 01/29/2012 5:45 PM CDT Addended by: KARTHIK BUTLER on: 01/29/2012 05:45 PM Modules accepted: Orders, SmartSet Jose Dumont MD - 01/29/2012 4:00 PM CDT SUBJECTIVE: Tameka Werner Litke 26 year old female presents for c/o l;eft ear fullness and discomfort. IN addition, she wishes to discuss her sense of anxiety and depression since when her boyfriendof 7 years broke up with her. He has since moved on and moved in with a new girlfriend. The pt admits to a hx of OCD, but this was not an issue until her recent breakup coupled with loss of job from [employer]. She has always also had issues maintaining sleep in the middle of the night for years as she would wake up and think about a variety of things (guy to her OCD). She does NOT think she needs less sleep and denies any hx of mood changes. WHen questioned, it appears she shows good financial repsonsibility. SHe has gained 10 lbs in last 4 months and had a somewhat longer period that just ended last week. HIstories UPDated through 01-29-2012: Past Medical History Diagnosis Date ??? LGSIL [...] biopsy, combined 04/24/09 PEDRO I & II Family History Problem Relation Age of Onset ??? Arthritis Mother degenerative in knees ??? Lipids Mother ??? Lipids Father ??? Family History Negative Sister ??? Family History Negative Brother ??? Breast CA Other paternal aunt ??? Alcohol/Drug Mother @OB@ History Social History ??? Marital Status: Single Spouse Name: N/A Number of Children: N/A ??? Years of Education: N/A Occupational History ??? Not on file. Social History Main Topics ??? Smoking status: Never Smoker ??? Smokeless tobacco: Never Used ??? Alcohol Use: Yes Occaisional ??? Drug Use: No ??? Sexually Active: Yes -- Male partner(s) Control/ Protection: Pill Other Topics Concern ??? Not on file Social History Narrative ??? No narrative on file Current Outpatient Prescriptions Medication Sig ??? PARoxetine (PAXIL) 20 MG tablet Take 1 tablet by mouth At Bedtime. ??? xjzzvcyd-jrrkolwpw-oshdctlwkekkvh (CORTISPORIN) 3.5-98088-[address] 4 drops Into the left ear 4 times daily. ??? Norgestim-Eth Estrad Triphasic (TRI-SPRINTEC) 0.18/0.215/0.25 MG-35 MCG TABS Take 1 tablet by mouth daily. Allergies as of 01/29/2012 - reviewed 01/29/2012 Allergen Reaction Noted ??? No known drug allergies 05/03/2002 ROS: C: NEGATIVE for fever, chills, change in weight,I: NEGATIVE for worrisome rashes, moles or lesions,E/M: NEGATIVE for ear, mouth and throat problems,R: NEGATIVE for significant cough or SOB,CV: NEGATIVEfor chest pain, palpitations or peripheral edema,GI: NEGATIVE for nausea, abdominal pain, heartburn,or change in bowel habits,: NEGATIVE for frequency, dysuria, or hematuria OBJECTIVE/EXAM: GENERAL APPEARANCE: healthy, alert and no distress HENT: TM's normal, but left ear canal is erythematous and swollen and nose and mouth without ulcers or lesions NECK: no adenopathy, no asymmetry, masses, or scars and thyroid normal to palpation. Tenderness withpalaption of the anterior trigone on the left. RESP: lungs clear to auscultation - no rales, rhonchi or wheezes CV: regular rates and rhythm, normal S1 S2, no S3 or S4 and no murmur, click or rub PSYCH: mentation appears normal and affect normal/bright, though she does appear mildly anxious. Sheshows no delusions or hallucinations. NO violent ideations noted. She does not have mood swings outside the norm. Her affect is not labile. She expresses the desire NOT to take pills if she could avoidit. She was on citalopram for one month in the past (years ago) and d/c'd it because she though her situation had improved ASSESSMENT/PLAN: 1- MIld major depression in pt with hx of OCD and general anxiety disorder, flared due to recent dissolution of fpc relationship and job loss. After d/w pt regarding risks and benefits as well aspossible side effects, drug interactions and adverse reactions, pt accepts prescription for paxil per hs orders. F/U in 3-4 weeks. We will discuss 10-14 day course of ambien to enforce sleep hygeine atthat time. 2- Left otitis externa. Avoid getting fluid in ear, no instrumentation with q- tips... After d/w pt regarding risks and benefits as well as possible side effects, drug interactions and adverse reactions, pt accepts prescription for cortisporin otic susp per hs orders. documented in this encounter Nursing Notes 01/29/2012 3:00 PM CDT >> ZACH SHARMA [facility] Jan 29, 2012 3:06 PM Patient presents with: Ear Problem - PT complains of L ear congestion, ongoing. Initial BP 94/56 Pulse 90 Temp(Src) 98.4 ??F (36.9 ??C) (Oral) Resp 12 Ht 5' 2.63 (1.591 m) Wt 125 lb (56.7 kg) BMI 22.41 kg/m2 SpO2 95% LMP 01/29/2012 Estimated Body mass index is 22.41 kg/(m^2) as calculated from the following: Height as of this encounter: 5' 2.625(1.591 m). Weight as of this encounter: 125 lb(56.7 kg).. BP completed using cuff size: regular. [...] externa documented in this encounter Care Teams Oyster Buyer Relationship Specialty Start Date End Date Jose Dumont MD PCP - General Family Practice 01/29/12 03/20/15 [address] [id number] documented as of this encounter
--- OUTSIDE RECORDS SUMMARY | 2022-06-06 21:06 | XMS_ITS | Encounter Summary ---
:1985 Author Organization [place] Address [facility] [place] [address] Care Team Providers Name Role Phone Jose Dumont MD Primary Care Provider Encounter Details Date Type Department Care Team Description 04/29/[address] [facility] Pete Martin Postcoital bleeding [facility] MD Alexandre (Primary Dx) [place] [address] [place] [address] Social History Tobacco Use Types [...] you attend sabianist or Patient refused 2021 protestant services? Do [...] as of this encounter Visit Diagnoses Diagnosis Postcoital bleeding - Primary documented in this encounter Care Teams Autotransfusionist Relationship Specialty Start Date End Date Jose Dumont MD PCP - General Family Practice 01/29/12 03/20/15 [address] [id number] documented as of this encounter
--- OUTSIDE RECORDS SUMMARY | 2022-06-06 21:06 | XMS_ITS | Encounter Summary ---
:1985 Author Organization [place] Address [address] [place] [address]. [place] [address] Care Team Providers Name Role Phone Jose Dumont MD Primary Care Provider Reason for Visit Reason Onset Date Comments Refill Request 04/24/2014 Encounter Details Date Type Department Care Team Description 04/24/[address] [facility] Martin, Pete Calle MD Refill Request Clinic [address] [place] [address] Social History Tobacco Use [...] you attend methodist or Patient refused 2021 lutheran services? Do [...] Telephone Encounter - Mervat Antunez RN - 04/24/2014 2:53 PM CDT Faxed refill request received. requesting supply for Micronor. Last annual 10/07/13. Refilled per protocol. Mervat Antunez, RN documented in this encounter Plan of Treatment Not on filedocumented as of this encounter Visit Diagnoses Diagnosis Contraception Unspecified contraceptive management documented in this encounter Care Teams Natural Resources Faculty Member Relationship Specialty Start Date End Date Jose Dumont MD PCP - General Family Practice 01/29/12 03/20/15 [address] [id number] documented as of this encounter
--- OUTSIDE RECORDS SUMMARY | 2022-06-06 21:06 | XMS_ITS | Encounter Summary ---
:1985 Author Organization [place] Address [address] [place] [address]. [place] [address] Care Team Providers Name Role Phone Jose Dumont MD Primary Care Provider Reason for Visit Reason Comments Repeat Pap Smear Encounter Details Date Type Department Care Team Description 10/10/2013 Office Visit [facility] Pete Martin Papanicola ou smear of cervix with low grade squamous intraepithelial lesion (LGSIL) (Primary Dx); [facility] MD Alexandre Routine histo ry and physical examination of adult [address] [place] [address] Social History Tobacco Use Types [...] you attend cheondoism or Patient refused 2021 quaker services? Do [...] Reading Time Taken Comments Blood Pressure 102/68 10/10/2013 5:33 PM CDT Pulse - - Temperature - - Respiratory Rate - - Oxygen Saturation - - Inhaled Oxygen Concentration - - Weight 50.4 kg (111 lb 3.2 oz) 10/10/2013 5:33 PM CDT Height - - Body Mass Index 19.7 05/28/2012 9:31 AM CDT documented in this encounter Progress Notes Pete Martin - 10/10/2013 6:08 PM CDT SUBJECTIVE: Marcelino Daley is a 28 year old , single female, P0 woman who presents for annual exam. Patient's last menstrual period was 10/05/2013. Periods are regular q 28-30 days, lasting [...] Current Outpatient Prescriptions Medication ??? norethindrone-ethinyl estradiol-iron (MICROGESTIN FE1.530) 1.5-30 MG-MCG tablet ??? metroNIDAZOLE (FLAGYL) 250 MG tablet ??? doxycycline (VIBRA-TABS) 100 MG tablet ??? nitrofurantoin, macrocrystal-monohydrate, (MACROBID) 100 MG capsule [...] NEGATIVE BREAST: NEGATIVE NEURO: NEGATIVE. OBJECTIVE: BP 102/68 Wt 111 lb 3.2 oz (50.44 kg) LMP 10/05/2013 General appearance: Healthy. Skin: Normal. Mental Status: [...] and uterusantiverted. Extremities: Normal ASSESSMENT: Satisfactory annual microsoft access developer exam PLAN: 1) Pap smear 2) Mammography, lipids at appropriate intervals PE: reviewed health maintenance including diet, regular exercise and periodic exams. documented in this encounter Nursing Notes 10/10/2013 5:15 PM CDT >> Marce Bazzi CMA [facility] Oct 10, 2013 5:40 PM Patient presents with: Repeat Pap Smear Marce Bazzi MA Initial BP 102/68 Wt 111 lb 3.2 oz (50.44 kg) LMP 10/05/2013 Estimated Body mass index is 19.70 kg/(m^2) as calculated from the following: Height as of 12: 5' 3(1.6 m). Weight as of this encounter: 111 lb 3.2 oz(50.44 kg). BP completed using cuff size: regular documented in this encounter Plan of Treatment Not on filedocumented as of this encounter Procedures Procedure Name Priority Date/Time Associated Diagnosis Comme nts PAP IMAGED THIN Routine 10/10/2013 12:00 Papanicolaou smear of Results for this LAYER, DIAGNOSTIC AM CDT cervix with low grade p rocedure are in squamous the results intraepithelial lesion secti on. (LGSIL) documented in this encounter Results PAP imaged thin layer, diagnostic (10/10/2013 12:00 AM CDT) Component Value Ref Test Analysis Performed At [facility] BodyMedia Range Method Time Signature PAP NIL COPATH Copath Report COPATH Patient Name: MARCELINO DALEY MR#: [id number] Specimen #: [id number] Collected: 10/10/2013 Received: 10/12/2013 Reported: 10/14/2013 11:58 Ordering Phy(s): PETE MARTIN SPECIMEN/STAIN PROCESS: Pap Imaged thin layer prep diagnostic (SurePath, FocalPoint with guided screening) ? Pap-Cyto x 1, Reflex HPV if ASCUS/LSIL x 1 SOURCE: Cervical, endocervical ---- Pap Imaged thin layer prep diagnostic (SurePath, FocalPoint with guided screening) SPECIMEN ADEQUACY: Satisfactory for evaluation. -Transformation zone component present. CYTOLOGIC INTERPRETATION: Negative for Intraepithelial Lesion or Malignancy Electronically signed out by: LANDEN De León ??(ASCP) Processed and screened at General acute hospital, [facility] CLINICAL HISTORY: LMP: 10/05/2013 Oral Control Pill, Previous normal pap Date of Last Pap: 05/28/2012, Papanicolaou Test Limitations: ??Cervical cytology is a scre ening test with limited sensitivity; regular screening is critical for cancer prevention; Pap tests are primarily effective for the diagnosis/prevention of squamous cell carcinoma, not adenoca rcinomas or other cancers. TESTING LAB LOCATION: [facility] [address] [place], [place] ??[address] COLLECTION SITE: Client: ??[facility] Location: RIOB (R) Specimen (Source) Anatomical Collection Method Collection Time Re ceived Time Location / / Volume Laterality Cytologic 10/10/2013 10/12/2013 12:0 6 material PM CDT (specimen) Pete Martin MD LAB - OPTIME CLINICAL SPECIM EN Performing Organization Address City/State/ZIP Code Phon e Number COPATH documented in this encounter Visit Diagnoses Diagnosis Papanicolaou smear of cervix with low gr nella squamous intraepithelial lesion (LGSIL) - Primary Routine history and physical examination of adult Routine general medical examination at a health care facility documented in this encounter Care Teams Phlebotomy Technologist Relationship Specialty Start Date End Date Jose Dumont MD PCP - General Family Practice 01/29/12 03/20/15 [address] [place] [address] documented as of this encounter
--- OUTSIDE RECORDS SUMMARY | 2022-06-06 21:06 | XMS_ITS | Encounter Summary ---
:1985 Author Organization [place] Address [address] [place] [address]. [place] [address] Care Team Providers Name Role Phone Jose Dumont MD Primary Care Provider Reason for Visit Reason Comments UTI Encounter Details Date Type Department Care Team Description 01/10/2013 [facility] UTI Visit [place] [address] [place] [address] Social History Tobacco Use [...] you attend worship or Patient refused 2021 oriental orthodox services? [...] documented as of this encounter Nursing Notes 01/10/2013 2:00 PM CDT >> NIVIA CHAPMAN Mon Jan 10, 2013 2:10 PM Pt c/o dysuria and urinary frequency since yesterday. UA/UC sent to lab. Geronimo Chapman RN documented in this encounter Plan of Treatment Not on filedocumented as of this encounter Procedures Procedure Name Priority Date/Time Associated Comments Diagnosis URINE CULTURE Routine 01/10/2013 2:05 PM Dysuria Results for this CDT procedure are i n the results section. UA WITH MICROSCOPIC Routine 01/10/2013 2:04 PM Dysuria Re sults for this CDT procedure are i n the results section. documented in this encounter Results Urine culture (01/10/2013 2:05 PM CDT) Component Value Ref Test Analysis Performed At [facility] Range Method Time Signature Specimen Midstream Urine [facility] LAB Special Specimen [facility] Requests received in MICROBIOLOGY preservative Culture Micro 50,000 to [facility] 100,000 MICROBIOLOGY colonies/mL Escherichia coli Micro Report FINAL [facility] Status 01/12/2013 MICROBIOLOGY Specimen Anatomical Collection Method Collection Time Receive d Time (Source) Location / / Volume Laterality Urine specimen 01/10/2013 2:05 PM 013 2:10 (specimen) CDT PM CDT Organism Antibiotic Method Susceptibility 50,000 to 100,000 Ampicillin 8 Susceptible ug/mL colonies/ml escherichia coli (enzo) 50,000 to 100,000 Cefazolin <=4 Susceptibl e ug/mL colonies/ml escherichia coli (enzo) 50,000 to 100,000 Cefoxitin <=4 Susceptibl e ug/mL colonies/ml escherichia coli (enzo) 50,000 to 100,000 Ceftazidime <=1 Susceptibl e ug/mL colonies/ml escherichia coli (enzo) 50,000 to 100,000 Ceftriaxone <=1 Susceptibl e ug/mL colonies/ml escherichia coli (enzo) 50,000 to 100,000 Ciprofloxacin <=0.25 Suscept ible ug/mL colonies/ml escherichia coli (enzo) 50,000 to 100,000 Gentamicin <=1 Susceptibl e ug/mL colonies/ml escherichia coli (enzo) 50,000 to 100,000 Levofloxacin <=0.12 Suscept ible ug/mL colonies/ml escherichia coli (enzo) 50,000 to 100,000 Nitrofurantoin 32 Susceptible ug/mL colonies/ml escherichia coli (enzo) 50,000 to 100,000 Tobramycin <=1 Susceptibl e ug/mL colonies/ml escherichia coli (enzo) 50,000 to 100,000 Trimethoprim/Sulfamethoxazol < =1/19 Susceptible ug/mL colonies/ml escherichia e coli (enzo) 50,000 to 100,000 Ampicillin/Sulbactam 4 Suscept ible ug/mL colonies/ml escherichia coli (enzo) 50,000 to 100,000 Piperacillin/Tazo <=4 Suscepti ble ug/mL colonies/ml escherichia coli (enzo) 50,000 to 100,000 Cefepime <=1 Susceptibl e ug/mL colonies/ml escherichia coli (enzo) Pete Martin MD LAB - MICRO GENERAL ORDERABL ES Performing Organization Address City/State/ZIP Code Phon e Number [address] [address] [facility] [address] [place], [place] [address] [address] [facility] MICROBIOLOGY (ABNORMAL) UA with Microscopic (01/10/2013 2:04 PM CDT) [facility] gist Method Time Signature Color Urine Yellow [facility] Appearance Urine Clear [facility] Glucose Urine Negative NEG mg/dL [facility] Bilirubin Urine Negative NEG [facility] Ketones Urine Negative NEG mg/dL [facility] Specific [place] 1.020 1.003 - [place] Urine 1.035 [facility] pH Urine 7.0 5.0 - 7.0 [place] pH [facility] Protein Albumin Negative NEG mg/dL [facility] Urobilinogen 0.2 0.2 - 1.0 [place] Urine EU/dL [facility] Nitrite Urine Negative NEG [facility] Blood Urine Negative NEG [facility] Leukocyte Trace (A) NEG [place] Esterase Urine [facility] Source Midstream [facility] WBC Urine 2-5 (A) 0 - 2 [facility] RBC Urine O - 2 0 - 2 [place] /[facility] Squamous Few FEW /LPF [place] Epithelial /LPF [facility] Urine [facility] Specimen Anatomical Collection Method Collection Time Receive d Time (Source) Location / / Volume Laterality Urine specimen 01/10/2013 2:04 PM 013 2:09 (specimen) CDT PM CDT Pete Martin MD LAB - URINE ORDERABLES Performing Organization Address City/State/ZIP Code Phon e Number [facility] [address] [place], [place] [address] [address] [facility] [address], [place] [address] [address] documented in this encounter Visit Diagnoses Diagnosis Dysuria - Primary documented in this encounter Care Teams Director Learning Relationship Specialty Start Date End Date Jose Dumont MD PCP - General Family Practice 01/29/12 03/20/15 [address] [facility] [place] [address] documented as of this encounter
--- OUTSIDE RECORDS SUMMARY | 2022-06-06 21:06 | XMS_ITS | Encounter Summary ---
:1985 Author Organization [place] Address [address] [facility] [place] [address] Care Team Providers Name Role Phone Jose Dumont MD Primary Care Provider Reason for Referral Referral not Required - Closed Specialty Diagnoses / Procedures Referred By Contact Refer red To Contact Diagnoses Hearing loss Jose Dumont MD [facility] [address] [place] [address] [address] [place] [address] [place] [address] Phone: [phone] Fax: Referral ID Status Reason Start Date Expiration Date Visits Requ ested Visits Authorized [id number] Closed 02/05/2012 08/03/2012 1 1 Reason for Visit Reason Onset Date Comments Ear Problem 02/02/2012 Encounter Details Date Type Department Care Team Description 02/02/2012 Telephone [facility] Manuela Dumont MD Ear Problem [place] [address] [address] [place], [place] [id number] [place] [phone] Social History Tobacco Use Types Packs/Day Years [...] you attend denominational or Patient refused 2021 scientologist services? Do you belong to any clubs [...] Notes Telephone Encounter - Emani Cervantes - 02/05/2012 10:18 AM CDT Pain is gone just can't hear out of left ear. Gave numbers for ENT. She will call and schedule. Message handled by Nurse Triage Emani Cervantes R.N. Telephone Encounter - Jose Dumont MD - 02/02/2012 9:53 AM CDT Offer ENT referral... I'm serious... As she c/o continued pain, right? Telephone Encounter - Emani Cervantes - 02/02/2012 9:16 AM CDT Patient calling and states ear still not any better. Started the ear drops and then started the oralantibiotics Thursday. Has used allergy meds with no relief. Ear is not any better. Please advise. Message handled by Nurse Triage Emani Cervantes R.N. documented in this encounter Plan of Treatment Scheduled Referrals Name Type Priority Associated Diagnoses Order S chedule OTOLARYNGOLOGY REFERRAL Referral Routine Hearing loss Orde red: 02/05/2012 documented as of this encounter Visit Diagnoses Diagnosis Hearing loss - Primary Unspecified hearing loss documented in this encounter Care Teams Pets Salesperson Relationship Specialty Start Date End Date Jose Dumont MD PCP - General Family Practice 01/29/12 03/20/15 [address] [phone] documented as of this encounter
--- OUTSIDE RECORDS SUMMARY | 2022-06-06 21:06 | XMS_ITS | Encounter Summary ---
:1985 Author Organization [place] Address [facility] [place] [address] Care Team Providers Name Role Phone Jose Dumont MD Primary Care Provider Reason for Visit Reason Onset Date Comments Results 01/13/2013 UC results Encounter Details Date Type Department Care Team Description [facility] MD Robb [address] [place] [address] Social History Tobacco Use Types Packs/Day Years [...] you attend christian or Patient refused 2021 sikh services? Do [...] Miscellaneous Notes Telephone Encounter - Pamella Chapman - 01/13/2013 10:40 AM CDT Pt advised. Geronimo Chapman RN Telephone Encounter - Pete Martin - 01/13/2013 9:55 AM CDT Macrobid Sent by e-scribe. Please notify patient. Telephone Encounter - Pamella Chapman - 01/13/2013 8:53 AM CDT Pt is calling for UC results from Thursday. Pt states that she is very uncomfortable and is now havingsome bloody discharge. Please advise GULSHAN. I called [facility] and asked Debbie to remind Dr. Martin to address the results GULSHAN. Geronimo Chapman RN documented in this encounter Plan of Treatment Not on filedocumented as of this encounter Visit Diagnoses Diagnosis UTI (urinary tract infection) - Primary Urinary tract infection, site not specif ied documented in this encounter Care Teams Riprap Placer Relationship Specialty Start Date End Date Jose Dumont MD PCP - General Family Practice 01/29/12 03/20/15 [address] [id number] documented as of this encounter
--- OUTSIDE RECORDS SUMMARY | 2022-06-06 21:06 | XMS_ITS | Encounter Summary ---
:1985 Author Organization [employer] Address [address] [place] [address]. [place] [address] Care Team Providers Name Role Phone Jose Dumont MD Primary Care Provider Reason for Visit Reason Onset Date Comments Urinary Problem 01/10/2013 Encounter Details Date Type Department Care Team Description 01/10/2013 Telephone [facility] Women's MartinPete, Urinary Problem Clinic Cezar ROLLINS [address] [place] [address] Social History Tobacco Use [...] you attend mormon or Patient refused 2021 islam services? Do [...] this encounter Miscellaneous Notes Telephone Encounter - EmmyMeravt azul - 01/10/2013 11:17 AM CDT Pt left VM message and upon return call, pt having urinary frequency and urgency and odor with voiding. Pt requesting nurse visit as she is dealing with errands as mother has . Pt scheduled for nurse visit this afternoon. Mervat Antunez RN documented in this encounter Plan of Treatment Not on filedocumented as of this encounter Visit Diagnoses Not on filedocumented in this encounter Care Teams Green Chain Off Bearer Relationship Specialty Start Date End Date Jose Dumont MD PCP - General Family Practice 01/29/12 03/20/15 [address] [id number] documented as of this encounter
--- OUTSIDE RECORDS SUMMARY | 2022-06-06 21:06 | XMS_ITS | Encounter Summary ---
:1985 Author Organization [facility] Address [address] [place] [address]. [place] [address] Care Team Providers Name Role Phone Jose Dumont MD Primary Care Provider Reason for Visit Reason Comments Ear Fullness Encounter Details Date Type Department Care Team Description 01/30/2012 Allied Health/Nurse Health [facility] Ear Fullness Visit [address] [phone] Social History Tobacco Use Types Packs/Day [...] you attend restorationism or Patient refused 2021 orthodox services? Do [...] documented as of this encounter Progress Notes Emani Cervantes - 01/30/2012 3:53 PM CDT Patient walks in with complaints of plugged ear. Got ear drops 01/29/12 and changed to oral antibiotictoday. Has not started oral antibiotics. Spoke to Dr. Dumont and he states she needs to take meds and washing would not help as wax not the problem. Informed patient and she will take oral antibiotics. Message handled by Nurse Triage Emani Cervantes R.N. documented in this encounter Plan of Treatment Not on filedocumented as of this encounter Visit Diagnoses Diagnosis Ear problem - Primary Other ear problems documented in this encounter Care Teams Sales Administration Specialist Relationship Specialty Start Date End Date Jose Dumont MD PCP - General Family Practice 01/29/12 03/20/15 [address] [id number] documented as of this encounter
--- OUTSIDE RECORDS SUMMARY | 2022-06-06 21:06 | XMS_ITS | Encounter Summary ---
:1985 Author Organization [facility] Address [facility] [address] Care Team Providers Name Role Phone Jose Dumont MD Primary Care Provider Reason for Visit Reason Onset Date Comments Call To Schedule Appointment 04/29/2013 Ultrasound Encounter Details Date Type Department Care Team Description [facility]/29[facility] MD Alexandre Appointment [address] [facility] (Ultrasoun d) [address] [place] [address] Social History Tobacco Use Types [...] you attend bahai or Patient refused 2021 alevism services? Do [...] this encounter Miscellaneous Notes Telephone Encounter - Christine Lancaster - 05/02/2013 7:38 AM CDT Tameka Grissom is scheduled for an Ultrasound on 05/05/13 at 9:45. Telephone Encounter - Michelle Olvera - 04/29/2013 11:33 AM CDT Left message for Tameka to return call to schedule an Ultrasound. documented in this encounter Plan of Treatment Not on filedocumented as of this encounter Visit Diagnoses Not on filedocumented in this encounter Care Teams Freelance Web Designer Relationship Specialty Start Date End Date Jose Dumont MD PCP - General Family Practice 01/29/12 03/20/15 [address] [id number] documented as of this encounter
--- OUTSIDE RECORDS SUMMARY | 2022-06-06 21:06 | XMS_ITS | Encounter Summary ---
:1985 Author Organization [place] Address [address] [place] [address]. [place] [address] Care Team Providers Name Role Phone Jose Dumont MD Primary Care Provider Encounter Details Date Type Department Care Team Description 06/08/2013 Radiant Appointment [facility] Postcoital bleeding [address] [place] [address] Social History Tobacco Use Types [...] you attend denominational or Patient refused 2021 hindu services? Do [...] Date/Time Associated Comments Diagnosis US PELVIC Routine 06/08/2013 1:46 PM Postcoital Results f or this TRANSABDOMINAL AND JOINTER MACHINE bleeding procedure are in TRANSVAGINAL the results section. documented in this encounter Results US Pelvic Complete w Transvaginal (06/08/2013 1:46 PM JOINTER MACHINE) Anatomical Region Laterality Modality Abdomen/Pelvis Ultrasound Specimen (Source) Anatomical Location Collection Method / Collectio n Time Received Time / Laterality Volume Narrative 06/14/2013 8:00 AM JOINTER MACHINE ULTRASOUND - PELVIC MANAGER OF CREATIVE SERVICES [facility]etrics [facility] Gynecology [address] [facility] [place] [address] Referring MD: Pete Martin MD Primary Clinic: [facility] Jun 08, 2013 tp CLINICAL INFORMATION Indications for ultrasound: Postcoital bleeding LMP: May 08 Hormones: OCP Measurements: Uterus: 6.8 x 3.1 x 4.5 cm. Position is anteverted. Contour is smth/ reg. Endo cav: 1.8 mm Smooth/regular/wnl Cervix; wnl Right ovary: 2.1 x 1.3 x 1.8 cm. Wnl Left ovary: 1.2 x 1.2 x 2.1 cm. Wnl Cul de sac: no free fluid Complete pelvic ultrasound utilizing bot h abdominal and vaginal transducers. ?? Normal pelvic ultrasound study. Alecia Marks M.D. Procedure Note Alecia Marks MD - 06/14/2013Fo rmatting of this note might be different from the original. ULTRASOUND - PELVIC MANAGER OF CREATIVE SERVICES [facility]etrics [facility]necology [address] [place] [address] Referring MD: Pete Martin MD Primary Clinic: [facility] Jun 08, 2013 tp CLINICAL INFORMATION Indications for ultrasound: Postcoital bleeding LMP: May 08 Hormones: OCP Measurements: Uterus: 6.8 x 3.1 x 4.5 cm. Position is anteverted. Contour is smth/ reg. Endo cav: 1.8 mm Smooth/regular/wnl Cervix; wnl Right ovary: 2.1 x 1.3 x 1.8 cm. Wnl Left ovary: 1.2 x 1.2 x 2.1 cm. Wnl Cul de sac: no free fluid Complete pelvic ultrasound utilizing bot h abdominal and vaginal transducers. Normal pelvic ultrasound study. Alecia Marks M.D. Pete Martin MD IMG US ORDERABLES documented in this encounter Visit Diagnoses Diagnosis Postcoital bleeding documented in this encounter Care Teams Business Banking Officer Relationship Specialty Start Date End Date Jose Dumont MD PCP - General Family Practice 01/29/12 03/20/15 [address] [id number] documented as of this encounter
--- OUTSIDE RECORDS SUMMARY | 2022-06-06 21:07 | XMS_ITS | Encounter Summary ---
:1985 Author Organization [facility] Address [address] [place], [place] [address]. [place] [address] Care Team Providers Name Role Phone Adal Kincaid MD Primary Care Provider [phone] Reason for Visit Reason Comments RECHECK Encounter Details Date Type Department Care Team Description 09/05/2010 Office Visit [facility] Hector Justice, Lilibeth camryn lesion, female [facility] (Primary Dx) [place] XXX RETIRED XXX [address] [place] [address] [address] [address] [place], [place] [phone] [address] (Work) [phone] Social History Tobacco Use Types Packs/Day Years Used Date Smoking Tobacco: Never Alcohol Use Standard Drinks/Week Comments [...] you attend faith or Patient refused 2021 christianity services? Do [...] Sign Reading Time Taken Comments Blood Pressure 102/72 09/05/2010 10:14 AM DIRECTOR OF OPERATIONS FOR THERAPY Pulse - - Temperature - - Respiratory Rate - - Oxygen Saturation - - Inhaled Oxygen Concentration - - Weight 50.3 kg (111 lb) 09/05/2010 10:14 AM DIRECTOR OF OPERATIONS FOR THERAPY Height - - Body Mass Index 19.98 07/30/2010 3:12 PM DIRECTOR OF OPERATIONS FOR THERAPY documented in this encounter Progress Notes Hector Justice - 09/05/2010 12:21 PM CST Here to have skin lesion excised from perineum. Verbal permission obtained. Area prepped with Betadine Local lidocaine injected Lesion excised and sent to pathology Site cauterized with AGNO3 stick Pt tolerated procedure well. CTOR OF OPERATIONS FOR THERAPY documented in this encounter Nursing Notes 09/05/2010 9:45 AM CST >> MAREC KELLER [facility] Sep 05, 2010 10:17 AM Patient presents with: RECHECK. Marce Keller MA Initial BP 102/72 Wt 111 lb (50.349 kg) LMP 08/14/2010 Estimated Body mass index is 19.98 kg/(m^2) as calculated from the following: Height as of 11: 5' 2.5(1.588 m). Weight as of this encounter: 111 lb(50.349 kg).. BP completed using cuff size: regular documented in this encounter Plan of Treatment Not on filedocumented as of this encounter Procedures Procedure Name Priority Date/Time Associated Diagnosis Comme nts HC BIOPSY Routine 09/18/2010 4:06 PM Genital lesion, SKIN/SUBQ/MUC MEM, DIRECTOR OF OPERATIONS FOR THERAPY female SINGLE LESION CL AFF SURGICAL Routine 09/05/2010 12:00 AM Genital lesion, Re sults for this PATHOLOGY DIRECTOR OF OPERATIONS FOR THERAPY female procedure are i n the results section. documented in this encounter Results SURGICAL PATHOLOGY (09/05/2010 12:00 AM DIRECTOR OF OPERATIONS FOR THERAPY) Component Value Ref Test Analysis Performed At [facility] Range Method Time Signature Copath Report Patient Name: MARCELINO DALEY MR#: [id number] Specimen #: [id number] Collected: 09/05/2010 Received: 09/05/2010 Reported: 09/06/2010 14:54 Ordering Phy(s): HECTOR JUSTICE SPECIMEN(S): Perineal biopsy FINAL DIAGNOSIS: Skin, perineum, biopsy - Intradermal nevus; benign. Electronically signed out by: Dominick Segura M.D. CLINICAL HISTORY: Perineal lesion. GROSS: The specimen, labeled perineal lesion, consists of 0.3 cm in diameter fragment of leal to light brown soft tissue. ??The specimen i s submitted in its entirety. ??MGP/sg MICROSCOPIC: Microscopic examination was performed. MGP/kd /09-06-10 TESTING LAB LOCATION: [address] ??[id number] COLLECTION SITE: Client: [facility] Location: RIOB (R) Specimen (Source) Anatomical Collection Method Collection Time Re ceived Time Location / / Volume Laterality 09/05/2010 09/05/2010 1:44 PM DIRECTOR OF OPERATIONS FOR THERAPY Hector Justice MD LABORATORY Performing Organization Address City/State/ZIP Code Phon e Number [place] documented in this encounter Visit Diagnoses Diagnosis Genital lesion, female - Primary Other specified disorders of female lilibeth camryn organs documented in this encounter Care Teams Corporation Lawyer Relationship Specialty Start Date End Date Adal Kincaid MD PCP - General 05/05/03 01/28/12 [address] [place] [address] documented as of this encounter
--- OUTSIDE RECORDS SUMMARY | 2022-06-06 21:07 | XMS_ITS | Encounter Summary ---
:1985 Author Organization [facility] Address [address] [place] [address]. [place] [address] Care Team Providers Name Role Phone Adal Kincaid MD Primary Care Provider [phone] Reason for Visit Reason Comments UTI Encounter Details Date Type Department Care Team Description 05/09/2010 Allied Health/Nurse Health [facility] UTI Visit [place] [address] [place] [address] Social History Tobacco Use [...] you attend yazidi or Patient refused 2021 jainism services? Do [...] documented as of this encounter Nursing Notes 05/09/2010 9:30 AM CDT >> MARCE KELLER [facility] May 09, 2010 4:13 PM Rx called in per Dr Melvin.Marce Keller MA >> MARCE KELLER [facility] May 09, 2010 11:16 AM Pt c/o urinary frequency and pain. Marce Keller MA documented in this encounter Plan of Treatment Not on filedocumented as of this encounter Procedures Procedure Name Priority Date/Time Associated Diagnosis Comme nts HCL CULTURE, URINE Routine 05/09/2010 11:22 AM Dysuria Re sults for this CDT procedure are i n the results section. HCL UA MICRO IF Routine 05/09/2010 11:21 AM Dysuria Resul ts for this POSITIVE CDT procedure are i n the results section. documented in this encounter Results URINE CULTURE (05/09/2010 11:22 AM CDT) [facility] Method Time Signature Specimen Midstream Urine [facility] LAB Culture Micro >100,000 [place] colonies/mL [facility] coli Micro Report FINAL [facility] Status 05/11/2010 [facility] Specimen Anatomical Collection Method Collection Time Receive d Time (Source) Location / / Volume Laterality 05/09/2010 11:22 05/09/2010 AM CDT 11:27 AM CDT Organism Antibiotic Method Susceptibility >100,000 colonies/ml Ampicillin <=2 Suscept ible escherichia coli (enzo) >100,000 colonies/ml Cefazolin <=4 Suscept ible escherichia coli (enzo) >100,000 colonies/ml Cefoxitin <=4 Suscept ible escherichia coli (enzo) >100,000 colonies/ml Ceftriaxone <=1 Suscept ible escherichia coli (enzo) >100,000 colonies/ml Ciprofloxacin 1 Susceptib le escherichia coli (enzo) >100,000 colonies/ml Gentamicin <=1 Suscept ible escherichia coli (enzo) >100,000 colonies/ml Levofloxacin 1 Susceptib le escherichia coli (enzo) >100,000 colonies/ml Nitrofurantoin <=16 Suscep tible escherichia coli (enzo) >100,000 colonies/ml Tobramycin <=1 Suscept ible escherichia coli (enzo) >100,000 colonies/ml Trimethoprim/Sulfamethoxazole >=16/304 Resistant escherichia coli (enzo) >100,000 colonies/ml Ampicillin/Sulbactam <=2 [place] sceptible escherichia coli (enzo) >100,000 colonies/ml Cefotaxime Susceptible escherichia coli (enzo) >100,000 colonies/ml Piperacillin/Tazo <=4 Susce ptible escherichia coli (enzo) Hector Melvin MD LABORATORY Performing Organization Address City/State/ZIP Code Phon e Number [facility] [address] [place] [address] [phone] [facility] UA MICRO IF POSITIVE (05/09/2010 11:21 AM CDT) [facility] Method Time Signature Color Urine Yellow [facility] Appearance Urine Clear [facility] Glucose Urine Negative NEG mg/dL [facility] Bilirubin Urine Negative NEG [facility] Ketones Urine Negative NEG mg/dL [facility] Specific [place] 1.010 1.003 - [place] Urine 1.035 [facility] Blood Urine Negative NEG [facility] pH Urine 7.0 5.0 - 7.[address] [place] [facility] Protein Albumin Negative NEG mg/dL [facility] Urobilinogen 0.2 0.2 - 1.0 [place] Urine EU/dL [facility] Nitrite Urine Negative NEG [facility] Leukocyte Negative NEG [place] Esterase Urine [facility] Source Midstream [facility] Specimen Anatomical Collection Method Collection Time Receive d Time (Source) Location / / Volume Laterality 05/09/2010 11:21 05/09/2010 AM CDT 11:26 AM CDT Hector Melvin MD LABORATORY Performing Organization Address City/[facility]/ZIP Code Phon e Number [facility] [address] [place], [place] [address] [address] [facility] documented in this encounter Visit Diagnoses Diagnosis Dysuria - Primary documented in this encounter Care Teams Factory Hand Relationship Specialty Start Date End Date Adal Kincaid MD PCP - General 05/05/03 01/28/12 [address] [place] [address] documented as of this encounter
--- OUTSIDE RECORDS SUMMARY | 2022-06-06 21:07 | XMS_ITS | Encounter Summary ---
:1985 Author Organization [facility] Address [address] [place] [address]. [place] [address] Care Team Providers Name Role Phone Adal Kincaid MD Primary Care Provider [phone] Reason for Visit Reason Comments Ear Problem Encounter Details Date Type Department Care Team Description 07/14/2011 Allied Health/Nurse Health [facility] Ear Problem Visit [address] [phone] Social History Tobacco Use [...] documented as of this encounter Nursing Notes 07/14/2011 11:15 AM CST >> MYRNA Chu Jul 14, 2011 11:37 AM Bilateral ear cleaning, wax build up bilat, flushed for 20 min totally with clear line to ear drum after wash, no redness, swelling or discharge noted. Pt handled well and was w/o dizzyness. Ear care instructions given. Myrna Padilla MA documented in this encounter Plan of Treatment Not on filedocumented as of this encounter Visit Diagnoses Diagnosis Plugged feeling in ear - Primary Other disorders of ear documented in this encounter Care Teams All Source Intelligence Technician Relationship Specialty Start Date End Date Adal Kincaid MD PCP - General 05/05/03 01/28/12 [address] [place] [address] documented as of this encounter
--- OUTSIDE RECORDS SUMMARY | 2022-06-06 21:07 | XMS_ITS | Encounter Summary ---
:1985 Author Organization [facility] Address [address] [place] [address]. [place] [address] Care Team Providers Name Role Phone Adal Kincaid MD Primary Care Provider [phone] Reason for Visit Reason Comments Vaginal Problem Encounter Details Date Type Department Care Team Description 02/07/2011 Office Visit [facility] Pete Martin Vaginal [facility] MD Alexandre (Primary Dx) [place] [address] [place] [address] Social History Tobacco Use Types Packs/Day Years [...] you attend uatsdin or Patient refused 2021 alevism services? Do [...] Sign Reading Time Taken Comments Blood Pressure 128/62 02/07/2011 9:24 AM CDT Pulse - - Temperature - - Respiratory Rate - - Oxygen Saturation - - Inhaled Oxygen Concentration - - Weight 51.2 kg (112 lb 14.4 oz) 02/07/2011 9:24 AM CDT Height - - Body Mass Index 20.32 07/30/2010 3:12 PM CONTENT DEVELOPER documented in this encounter Progress Notes Pete Martin - 02/07/2011 9:57 AM CDT Tameka Grissom ,25 year old, presents with white and irritative Discharge. Recent treatmant with vaginal cream for BV. Exam:white disharge is present. Examination of the vulva and vagina is positive for for inflamation. Imp: Contact dermatitis? Plan: Wet mount pending. documented in this encounter Nursing Notes 02/07/2011 9:15 AM CDT >> MARCE KELLER Fri Feb 07, 2011 9:28 AM Patient presents with: Vaginal Problem Pt c/o vaginal irritation. Marce Keller MA Initial BP 128/62 Wt 112 lb 14.4 oz (51.211 kg) LMP 12/31/2010 Estimated Body mass index is 20.32 kg/(m^2) as calculated from the following: Height as of 11: 5' 2.5(1.588 m). Weight as of this encounter: 112 lb 14.4 oz(51.211 kg).. BP completed using cuff size: regular documented in this encounter Plan of Treatment Not on filedocumented as of this encounter Procedures Procedure Name Priority Date/Time Associated Diagnosis Comme nts WET PREPARATION Routine 02/07/2011 10:19 AM Vaginal discharge Results for this CDT procedure are i n the results section. documented in this encounter Results Wet prep (02/07/2011 10:19 AM CDT) [facility] Method Time Signature Specimen Vagina [facility] Description [facility] Wet Prep No yeast seen [facility] No Trichomonas seen [facility] No clue cells seen CLINIC LAB Micro Report FINAL [facility] Status 02/07/2011 [facility] Specimen Anatomical Collection Method Collection Time Receive d Time (Source) Location / / Volume Laterality 02/07/2011 10:19 02/07/2011 AM CDT 10:24 AM CDT Pete Martin MD LAB - MICRO GENERAL ORDERABL ES Performing Organization Address City/State/ZIP Code Phon e Number [facility] [address] [place], [place] [address] [address] [facility] documented in this encounter Visit Diagnoses Diagnosis Vaginal discharge - Primary Leukorrhea, not specified as infective documented in this encounter Care Teams Peer Tutor Relationship Specialty Start Date End Date Adal Kincaid MD PCP - General 05/05/03 01/28/12 [address] [place] [address] documented as of this encounter
--- OUTSIDE RECORDS SUMMARY | 2022-06-06 21:07 | XMS_ITS | Encounter Summary ---
:1985 Author Organization [facility] Address [address] [place] [address]. [place] [address] Care Team Providers Name Role Phone Adal Kincaid MD Primary Care Provider [phone] Reason for Visit Reason Onset Date Comments Refill Request 04/02/2011 Encounter Details Date Type Department Care Team Description 04/02/2011 Refill [facility] Hector Hernandez MD Refill Request Clinic [place] XX RETIRED XXX [address] [place] [phone] (Wo rk) Social History Tobacco Use Types [...] you attend mosque or Patient refused 2021 yazdanism services? Do [...] Notes Telephone Encounter - Pamella Chapman - 04/02/2011 2:53 PM CDT Refill request form faxed from pharmacy. Pt has an appt for a colp on 04/10/11. rx approved x 3 months per protocol. Geronimo Chapman RN documented in this encounter Plan of Treatment Not on filedocumented as of this encounter Visit Diagnoses Diagnosis Contraception - Primary Unspecified contraceptive management documented in this encounter Care Teams Sales Project Engineer Relationship Specialty Start Date End Date Adal Kincaid MD PCP - General 05/05/03 01/28/12 [address] [place] [address] documented as of this encounter
--- OUTSIDE RECORDS SUMMARY | 2022-06-06 21:07 | XMS_ITS | Encounter Summary ---
:1985 Author Organization [facility] Address [address] [place] [address]. [place] [address] Care Team Providers Name Role Phone Adal Kincaid MD Primary Care Provider [phone] Reason for Visit Reason Onset Date Comments Leep 06/11/2011 Encounter Details Date Type Department Care Team Description 06/11/2011 Telephone [facility] Women's MartinPete lake MD [address] [place] [address] Social History Tobacco Use Types Packs/Day [...] you attend temple or Patient refused 2021 mormonism services? Do you belong to any clubs [...] Notes Telephone Encounter - Pamella Chapman - 06/12/2011 8:40 AM CST A letter was sent to pt on 06/02/11 advising her that she needs to have a LEEP. See path report from colp. Geronimo Chapman RN STAFF Telephone Encounter - Mervat Antunez - 06/11/2011 5:30 AM CST Pt to schedule LEEP. Please call and assist in scheduling. Mervat Antunez RN STAFF Telephone Encounter - Mervat Antunez - 06/11/2011 5:30 AM CST Message copied by MERVAT ANTUNEZ on ThuJun 11, 2011 5:30 AM ------ Message from: MERVAT ANTUNEZ Created: ThuApr 02, 2011 6:06 AM Regarding: colposcopy [place] apt 04/10/11 ck results STAFF documented in this encounter Plan of Treatment Not on filedocumented as of this encounter Visit Diagnoses Diagnosis Papanicolaou smear of cervix with low gr nella squamous intraepithelial lesion (LGSIL) documented in this encounter Care Teams Raisin Washer Relationship Specialty Start Date End Date Adal Kincaid MD PCP - General 05/05/03 01/28/12 [place] [address] documented as of this encounter
--- OUTSIDE RECORDS SUMMARY | 2022-06-06 21:07 | XMS_ITS | Encounter Summary ---
:1985 Author Organization [place] Address [address] [place] [address]. [place] [address] Care Team Providers Name Role Phone Adal Kincaid MD Primary Care Provider [phone] Reason for Visit Reason Onset Date Comments Refill Request 10/08/2010 Dev TriJonnathancycleethan Encounter Details Date Type Department Care Team Description 10/08/2010 Refill [facility] Hector Melvin, Refi ll Request ([facility] MD Dumontcycleethan) [place] XXX RETIRED XXX [address] [facility] [address] [place] [address] [phone] Social History Tobacco Use Types Packs/Day Years [...] you attend religious or Patient refused 2021 restorationism services? Do [...] Miscellaneous Notes Telephone Encounter - Mervat Antunez - 10/08/2010 4:02 PM CDT Faxed refill request received. requesting supply for Ortho Tri-Cyclen. Last pap and annual exam 07/25/10. Medication refilled per protocol. Mervat Antunez RN documented in this encounter Plan of Treatment Not on filedocumented as of this encounter Visit Diagnoses Diagnosis Contraception - Primary Unspecified contraceptive management documented in this encounter Care Teams Online Merchandising Coordinator Relationship Specialty Start Date End Date Adal Kincaid MD PCP - General 05/05/03 01/28/12 [place] [address] documented as of this encounter
--- OUTSIDE RECORDS SUMMARY | 2022-06-06 21:07 | XMS_ITS | Encounter Summary ---
:1985 Author Organization [place] Address [address] [place] [address]. [place] [address] Care Team Providers Name Role Phone Adal Kincaid MD Primary Care Provider [phone] Reason for Visit Reason Onset Date Comments Results 02/28/2011 Encounter Details Date Type Department Care Team Description 02/28/2011 Telephone [facility] MartinPete lake MD Results Clinic [address] [place] [address] Social History Tobacco Use [...] you attend hinduism or Patient refused 2021 evangelical services? Do [...] this encounter Miscellaneous Notes Telephone Encounter - Marce Bazzi - 02/28/2011 3:56 PM CDT Pt advised. Marce Bazzi MA Telephone Encounter - Pete Martin - 02/28/2011 3:01 PM CDT Please notify patient. Diflucan Sent by e-scribe. Telephone Encounter - Marce Bazzi - 02/28/2011 10:21 AM CDT + yeast on wet prep, would like Rx faxed in to pharmacy in chart. Marce Bazzi MA documented in this encounter Plan of Treatment Not on filedocumented as of this encounter Visit Diagnoses Diagnosis Yeast infection of the vagina - Primary Candidiasis of vulva and vagina documented in this encounter Care Teams Iron Bender Relationship Specialty Start Date End Date Adal Kincaid MD PCP - General 05/05/03 01/28/12 [address] [place] [address] documented as of this encounter
--- OUTSIDE RECORDS SUMMARY | 2022-06-06 21:07 | XMS_ITS | Encounter Summary ---
:1985 Author Organization [place] Address [address] [place] [address]. [place] [address] Care Team Providers Name Role Phone Adal Kincaid MD Primary Care Provider [phone] Reason for Visit Reason Onset Date Comments Call Back 01/30/2011 Encounter Details Date Type Department Care Team Description 01/30/2011 Telephone [facility] Mike Kincaid, Call Back Lázaro Restrepo MD [address] [place] [address] [address] [place], [place] [phone] Social History Tobacco Use Types Packs/Day Years [...] you attend episcopalian or Patient refused 2021 congregational services? Do you belong to any clubs [...] this encounter Miscellaneous Notes Telephone Encounter - Pam Perez - 01/30/2011 1:00 PM CDT Advised patient and she received a copy of results Telephone Encounter - Joya Benson - 01/30/2011 12:23 PM CDT Patient stating she had message to return call to clinic. Reviewed lab results from 01/28/11, Hep C,B, HIV, Gonorrhoea, Chlamydia neg. 1, Patient is requesting to brain picker a copy of her 01/28/11 labs today at clinic. 2. She is questioning why clinic was calling her back today. Please call patient at [phone]. Joya Benson RN [facility] [phone] documented in this encounter Plan of Treatment Not on filedocumented as of this encounter Visit Diagnoses Not on filedocumented in this encounter Care Teams Jig Bore Tool Maker Relationship Specialty Start Date End Date Adal Kincaid MD PCP - General 05/05/03 01/28/12 [place] [address] documented as of this encounter
--- OUTSIDE RECORDS SUMMARY | 2022-06-06 21:07 | XMS_ITS | Encounter Summary ---
:1985 Author Organization [place] Address [address] [place] [address]. [place] [address] Care Team Providers Name Role Phone Adal Kincaid MD Primary Care Provider [phone] Reason for Visit Reason Onset Date Comments Depression 09/25/2011 Encounter Details Date Type Department Care Team Description 09/25/2011 Telephone [facility] Mike Kincaid, Depression Cezar ROLLINS [address] [place] [address] [place] [address] [place] [address] [phone] Social History Tobacco Use Types Packs/Day Years [...] you attend uatsdin or Patient refused 2021 moravian services? Do [...] encounter Miscellaneous Notes Telephone Encounter - Annalisa Haynes - 09/26/2011 11:13 AM CST Call back to pt. She states she is going to see a psychiatrist and will wait until then. ES ASSISTANT Telephone Encounter - Tenzin Kincaid MD - 09/25/2011 8:19 PM CST I have not seen this pt since 2008. She needs to be seen, ,I can see her for short appt. . I have few openings tomoroow.Need to see her before I prescribe any med and also med will not work in 1 wk ,ittakes at least 2-3 wks to see the effects. Reviewed PHQ 9,--pt should be seen in [facility] or [facility] if she has suicidal thoughts or ideation.pl check with pt. ES ASSISTANT Telephone Encounter - Annalisa Haynes - 09/25/2011 11:00 AM CST Pt calls stating she has depression, she saw Dr Kincaid for this 2 1/2 years ago, 04/16/09. She is asking if she can start on a medication for this. She states she has no insurance and cannot afford tocome in. She states she is seeing a new psychiatrist next week, but she is on vacation this week. She states she broke up with her boyfriend of 7 years and is having a hard time dealing with this. Advised her that Dr Kincaid will not give her anything over the phone, she needs to come in. She does not want to see Dr Kincaid since she is going to see the psychiatrist soon. Advised her that she can just wait until she sees the psychiatrist, but she states she wants medication sooner to get started. She still wants this consumer loan underwriter to ask Dr Kincaid if she will prescribe medication. Last PHQ-9 score on record= 20 today ES ASSISTANT documented in this encounter Plan of Treatment Not on filedocumented as of this encounter Visit Diagnoses Diagnosis Screening for depression - Primary documented in this encounter Care Teams Document Preparation Specialist Relationship Specialty Start Date End Date Adal Kincaid MD PCP - General 05/05/03 01/28/12 [address] [place] [address] documented as of this encounter
--- OUTSIDE RECORDS SUMMARY | 2022-06-06 21:07 | XMS_ITS | Encounter Summary ---
:1985 Author Organization [facility] Address [facility] [place] [address] Care Team Providers Name Role Phone Adal Kincaid MD Primary Care Provider [phone] Reason for Visit Reason Comments STD Encounter Details Date Type Department Care Team Description 05/15/[address] [facility] Hector Justice Scre ening examination for venereal disease (Primary Dx); [facility] Abdominal pain, other specified site; [place] XXX RETIRED XXX Vaginal discharge [address] [place], [place] [address] [address] [place], [place] [phone] [address] (Work) [phone] Social History Tobacco Use Types Packs/Day Years [...] you attend pentecostalism or Patient refused 2021 shinto services? 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 Has persisting vaginal discharge and pelvic pressureand discomfort. Ext gen nl, vagina white discharge cervix clean, fundus ant, nl, adnexa no masses, rv deferred Vaginitis Pelvic pressure, discomfort, etiology ? Wet prep Std testing pelvic ultrasound Has colp scheduled documented in this encounter Nursing Notes 05/15/2011 2:00 PM CDT >> MARCE KELLER [facility] May 15, 2011 2:16 PM Patient presents with: STD screen. Marce Keller MA Initial BP 112/78 Wt 117 lb 4.8 oz (53.207 kg) LMP 04/23/2011 Estimated Body mass index is 21.11kg/(m^2) as calculated from the following: Height as of 07/30/10: 5' 2.5(1.588 m). Weight as of this encounter: 117 lb 4.8 oz(53.207 kg).. BP completed using cuff size: regular documented in this encounter Plan of Treatment Not on filedocumented as of this encounter Procedures Procedure Name Priority Date/Time Associated Diagnosis Comme nts HIV 1 AND 2 ANTIBODY Routine 05/15/2011 3:01 PM Screening R esults for this (QUEST) CDT examination for procedure ar e in venereal disease the results section. HEPATITIS C ANTIBODY Routine 05/15/2011 3:01 PM Screening R esults for this CDT examination for procedure ar e in venereal disease the results section. HEPATITIS B SURFACE Routine 05/15/2011 3:01 PM Screening Re sults for this ANTIGEN CDT examination for procedure ar e in venereal disease the results section. ANTI TREPONEMA Routine 05/15/2011 3:01 PM Screening Results for this CDT examination for procedure ar e in venereal disease the results section. VIRAL CULTURE Routine 05/15/2011 2:46 PM Screening Results for this CDT examination for procedure ar e in venereal disease the results section. WET PREPARATION Routine 05/15/2011 2:45 PM Screening Result s for this CDT examination for procedure ar e in venereal disease the results section. NEISSERIA Routine 05/15/2011 2:44 PM Screening Results f or this GONORRHOEAE PCR CDT examination for procedure are in venereal disease the results section. CHLAMYDIA Routine 05/15/2011 2:44 PM Screening Results f or this TRACHOMATIS PCR CDT examination for procedure are in venereal disease the results section. documented in this encounter Results Hepatitis C antibody (05/15/2011 3:01 PM CDT) Analysis Performed At Patho logist Time Signature Hepatitis C Negative NEG [facility] Antibody [facility] LAB[facility] Specimen Anatomical Collection Method Collection Time Receive d Time (Source) Location / / Volume Laterality Blood specimen 05/15/2011 3:01 PM 011 3:06 (specimen) CDT PM CDT Hector Justice MD LAB - BLOOD ORDERABLES Performing Organization Address City/State/ZIP Code Phon e Number [id number] [place] [address] LABS Hepatitis B surface antigen (05/15/2011 3:01 PM CDT) Analysis Performed At Patho logist Time Signature Hep B Surface [facility] Ag[facility] LAB[facility] Specimen Anatomical Collection Method Collection Time Receive d Time (Source) Location / / Volume Laterality Blood specimen 05/15/2011 3:01 PM 011 3:06 (specimen) CDT PM CDT Hector Justice MD LAB - BLOOD ORDERABLES Performing Organization Address City/State/ZIP Code Phon e Number [facility] [address] LABS Anti treponema EIA (05/15/2011 3:01 PM CDT) Analysis Performed At Patho logist Time Signature Treponema Negative NEG [facility] pallidum [facility] Antibody [place] LAB[facility] Specimen Anatomical Collection Method Collection Time Receive d Time (Source) Location / / Volume Laterality Blood specimen 05/15/2011 3:01 PM 011 3:06 (specimen) CDT PM CDT Hector Justice MD LAB - BLOOD ORDERABLES Performing Organization Address City/[facility]/ZIP Code Phon e Number [facility] [address] LABS HIV 1 and 2 Antibody (05/15/2011 3:01 PM CDT) Analysis Performed At Patho logist Time Signature HIV 1&2 Negative NEG [facility] Antibody [facility] LABS Specimen Anatomical Collection Method Collection Time Receive d Time (Source) Location / / Volume Laterality Blood specimen 05/15/2011 3:01 PM 011 3:06 (specimen) CDT PM CDT Hector Justice MD LAB - BLOOD ORDERABLES Performing Organization Address City/[facility]/ZIP Code Phon e Number [facility] [address] LABS Viral culture (05/15/2011 2:46 PM CDT) Patholo gist Method Time Signature Viral Culture Cervical [facility] LAB Result No virus [facility] isolated [facility] Status FINAL [facility] LABS Specimen Anatomical Collection Method Collection Time Receive d Time (Source) Location / / Volume Laterality 05/15/2011 2:46 PM 1 2:52 CDT PM CDT Hector Justice MD LAB - MICRO GENERAL ORDERABL ES Performing Organization Address City/[facility]/ZIP Code Phon e Number [facility] [address] LAB [facility] LABS Wet prep (05/15/2011 2:45 PM CDT) [facility] Method Time Signature Specimen Vagina [facility] LAB Wet Prep No yeast seen [place] No clue cells seen [facility] No Trichomonas seen CLINIC LAB Micro Report FINAL [place] Status 05/15/2011 [facility] LAB Specimen Anatomical Collection Method Collection Time Receive d Time (Source) Location / / Volume Laterality 05/15/2011 2:45 PM 1 2:50 CDT PM CDT Hector Justice MD LAB - MICRO GENERAL ORDERABL ES Performing Organization Address City/State/ZIP Code Phon e Number [facility] [address] [place], [place] [address] [address] [facility] LAB CHLAMYDIA TRACHOMATIS PCR (05/15/2011 2:44 PM CDT) Component Value Ref Test Analysis Performed At [facility] Range Method Time Signature Specimen Vagina [facility] LAB Chlamydia Negative for C. trachomatis rRNA by bore mill operator for plastic mediated amplification. FUM Trachomatis A negative result by transc ription mediated amplification does not preclude the [place] PCR presence of C. trachomatis infection because results are dependent on proper CAMPUS LABS and adequate collection, absence of inhibitors, and suffici ent rRNA to be detected. Specimen Anatomical Collection Method Collection Time Receive d Time (Source) Location / / Volume Laterality Cervical swab 05/15/2011 2:44 PM 05/15/20 11 2:49 (specimen) CDT PM CDT Hector Justice MD LAB - MICRO GENERAL ORDERABL ES Performing Organization Address City/State/ZIP Code Phon e Number [address] [address] [facility] LAB [facility]C [facility] LABS [place] GONORRHOEA PCR (05/15/2011 2:44 PM CDT) Component Value Ref Test Analysis Performed At [facility] [place] Range Method Time Signature Specimen Vagina [facility] LAB N Gonorrhea Negative for N. gonorrhoeae rRNA by bore mill operator for plastic mediated amplification. FUM PCR A negative result by transc ription mediated amplification does not preclude the [facility] presence of N. gonorrhoeae infection because re sults are dependent on proper CAMPUS LABS and adequate collection, absence of inhibitors, and suffici ent rRNA to be detected. Specimen Anatomical Collection Method Collection Time Receive d Time (Source) Location / / Volume Laterality Cervical swab 05/15/2011 2:44 PM 05/15/20 11 2:49 (specimen) CDT PM CDT Hector Justice MD LAB - MICRO GENERAL ORDERABL ES Performing Organization Address City/State/ZIP Code Phon e Number [facility] [address] [place] [address] [facility] LAB [facility] LABS documented in this encounter Visit Diagnoses Diagnosis Screening examination for venereal disea se - Primary Abdominal pain, other specified site Vaginal discharge Leukorrhea, not specified as infective documented in this encounter Care Teams Senior Java [email or web address] Developer Relationship Specialty Start Date End Date Adal Kincaid MD PCP - General 05/05/03 01/28/12 [address] [place], [place] [address] documented as of this encounter
--- OUTSIDE RECORDS SUMMARY | 2022-06-06 21:07 | XMS_ITS | Encounter Summary ---
:1985 Author Organization [place] Address [facility] [place] [address] Care Team Providers Name Role Phone Adal Kincaid MD Primary Care Provider [phone] Reason for Visit Reason Comments Vaginal Problem Pt c/o possible yeast infect ion - having sx's of itching & burning for 2 days STD Pt rqst's GC/Chlamydia routi ne testing - didn't get it done during px Encounter Details Date Type Department Care Team Description 01/28/2011 Office Visit [facility] Hector Melvin, Vagi nal itching (Primary Dx); [facility] Vaginitis [place] XXX RETIRED XXX [address] [place] [address] [address] [address] [place], [place] [phone] [address] (Work) [phone] Social History Tobacco Use Types Packs/Day Years [...] you attend restoration or Patient refused 2021 yazidi services? 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 Monistat did not help. Requests STD testing. Due for colposcopy in couple weeks . Ext gen nl, vagina white discharge. Wet prep Clue cells STD testing [place] in couple weeks documented in this encounter Nursing Notes 01/28/2011 9:45 AM CDT >> BETTY Aguirre Jan 28, 2011 9:50 AM Patient presents with: Vaginal Problem - Pt c/o possible yeast infection - having sx's of itching & burning for 2 days STD - Pt rqst's GC/Chlamydia routine testing - didn't get it done during px initial BP 112/74 Wt 113 lb (51.256 kg) LMP 12/31/2010 Estimated Body mass index is 20.34 kg/(m^2) as calculated from the following: Height as of 07/30/10: 5' 2.5(1.588 m). Weight as of this encounter: 113 lb(51.256 kg).. bp completed using cuff size regular Betty Bermudez MA documented in this encounter Plan of Treatment Not on filedocumented as of this encounter Procedures Procedure Name Priority Date/Time Associated Comments Diagnosis HEPATITIS B SURFACE Routine 01/28/2011 2:09 PM Vaginal itching Results for this ANTIGEN CDT procedure are i n the results section. WET PREPARATION Routine 01/28/2011 10:07 Vaginal itching Resul ts for this AM CDT procedure are i n the results section. NEISSERIA GONORRHOEAE Routine 01/28/2011 10:07 Vaginal itching Results for this PCR AM CDT procedure are i n the results section. CHLAMYDIA TRACHOMATIS Routine 01/28/2011 10:07 Vaginal itching Results for this PCR AM CDT procedure are i n the results section. HIV 1 AND 2 ANTIBODY Routine 01/28/2011 10:05 Vaginal itching Results for this ([facility]) AM CDT procedure are i n the results section. HEPATITIS C ANTIBODY Routine 01/28/2011 10:05 Vaginal itching Results for this AM CDT procedure are i n the results section. ANTI TREPONEMA Routine 01/28/2011 10:05 Vaginal itching Result s for this AM CDT procedure are i n the results section. documented in this encounter Results Hepatitis B surface antigen (01/28/2011 2:09 PM CDT) Analysis Performed At Patho logist Time Signature Hep B Surface Negative NEG [facility] LABS Specimen Anatomical Collection Method Collection Time Receive d Time (Source) Location / / Volume Laterality Blood specimen 01/28/2011 2:09 PM 011 2:14 (specimen) CDT PM CDT Hector Melvin MD LAB - BLOOD ORDERABLES Performing Organization Address City/State/ZIP Code Phon e Number [facility] [address] [place], [place] [phone] [place] [address] LABS CHLAMYDIA TRACHOMATIS PCR (01/28/2011 10:07 AM CDT) Component Value Ref Test Analysis Performed At [facility] gist Range Method Time Signature Specimen Vagina [facility] LAB Chlamydia Negative for C. trachomatis rRNA by hearing consultant mediated amplification. [facility] Trachomatis A negative result by transc ription mediated amplification does not preclude the [place] PCR presence of C. trachomatis infection because results are dependent on proper CAMPUS LABS and adequate collection, absence of inhibitors, and suffici ent rRNA to be detected. Specimen Anatomical Collection Method Collection Time Receive d Time (Source) Location / / Volume Laterality Cervical swab 01/28/2011 10:07 01/28/2011 (specimen) AM CDT 10:12 AM CDT Hector Melvin MD LAB - MICRO GENERAL ORDERABL ES Performing Organization Address City/[facility]/ZIP Code Phon e Number [phone] [place] [address] LAB [facility] LABS NEISSERIA GONORRHOEA PCR (01/28/2011 10:07 AM CDT) Component Value Ref Test Analysis Performed At [facility] Range Method Time Signature Specimen Vagina [facility] LAB N Gonorrhea Negative for N. gonorrhoeae rRNA by hearing consultant mediated amplification. [facility] PCR A negative result by transc ription mediated amplification does not preclude the [place] presence of N. gonorrhoeae infection because re sults are dependent on proper CAMPUS LABS and adequate collection, absence of inhibitors, and suffici ent rRNA to be detected. Specimen Anatomical Collection Method Collection Time Receive d Time (Source) Location / / Volume Laterality Cervical swab 01/28/2011 10:07 01/28/2011 (specimen) AM CDT 10:12 AM CDT Hector Melvin MD LAB - MICRO GENERAL ORDERABL ES Performing Organization Address City/[facility]/ZIP Code Phon e Number [address] [address] [facility] LAB [facility] LABS Wet prep (01/28/2011 10:07 AM CDT) [facility] Method Time Signature Specimen Vagina [facility] LAB Wet Prep Clue cells seen [place] No yeast seen [place] No Trichomonas seen CLINIC LAB Micro Report FINAL [place] Status 01/28/2011 [facility] LAB Specimen Anatomical Collection Method Collection Time Receive d Time (Source) Location / / Volume Laterality 01/28/2011 10:07 01/28/2011 AM CDT 10:12 AM CDT Hector Melvin MD LAB - MICRO GENERAL ORDERABL ES Performing Organization Address City/State/ZIP Code Phon e Number [facility] [address] [place], [place] [address] [address] [facility] LAB Anti treponema EIA (01/28/2011 10:05 AM CDT) Analysis Performed At Path logist Time Signature Treponema Negative NEG [facility] LABS Specimen Anatomical Collection Method Collection Time Receive d Time (Source) Location / / Volume Laterality Blood specimen 01/28/2011 10: 1 (specimen) AM CDT 10:10 AM CDT Hector Melvin MD LAB - BLOOD ORDERABLES Performing Organization Address City/[facility]/ZIP Code Phon e Number [address] LABS Hepatitis C antibody (01/28/2011 10:05 AM CDT) Analysis Performed At Patho logist Time Signature Hepatitis C Negative NEG [facility] Antibody [facility] LABS Specimen Anatomical Collection Method Collection Time Receive d Time (Source) Location / / Volume Laterality Blood specimen 01/28/2011 10: 1 (specimen) AM CDT 10:10 AM CDT Hector Melvin MD LAB - BLOOD ORDERABLES Performing Organization Address City/[facility]/ZIP Code Phon e Number [phone] [place] [address] LABS HIV 1 and 2 Antibody (01/28/2011 10:05 AM CDT) Analysis Performed At Patho logist Time Signature HIV 1&2 Negative NEG [facility] Antibody [facility] LABS Specimen Anatomical Collection Method Collection Time Receive d Time (Source) Location / / Volume Laterality Blood specimen 01/28/2011 10: 1 (specimen) AM CDT 10:10 AM CDT Hector Melvin MD LAB - BLOOD ORDERABLES Performing Organization Address City/[facility] Code Phon e Number [facility] [address] [place], [place] [phone] [place] [address] LABS documented in this encounter Visit Diagnoses Diagnosis Vaginal itching - Primary Pruritus of genital organs Vaginitis Vaginitis and vulvovaginitis, unspecifie d documented in this encounter Care Teams Planer Mill Grader Relationship Specialty Start Date End Date Adal Kincaid MD PCP - General 05/05/03 01/28/12 [address] [place] [address] documented as of this encounter
--- OUTSIDE RECORDS SUMMARY | 2022-06-06 21:07 | XMS_ITS | Encounter Summary ---
:1985 Author Organization [place] Address [address] [place] [address]. [place] [address] Care Team Providers Name Role Phone Adal Kincaid MD Primary Care Provider [phone] Reason for Visit Reason Comments Colposcopy Encounter Details Date Type Department Care Team Description 05/26/2011 Office Visit [facility] Pete Martin [facility] on P ap smear [facility] MD Alexandre (Primary Dx) [address] [place] [address] Social History Tobacco Use Types Packs/Day Years [...] Reading Time Taken Comments Blood Pressure 102/70 05/26/2011 10:49 AM CDT Pulse - - Temperature - - Respiratory Rate - - Oxygen Saturation - - Inhaled Oxygen Concentration - - Weight 53.1 kg (117 lb) 05/26/2011 10:48 AM CDT Height - - Body Mass Index 21.06 07/30/2010 3:12 PM 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 positive prior history of abnormal pap.Here today for colposcopy. Discussed indication, risks of infection and bleeding. Procedure: Cervix is stained with acetic acid and veiwed colposcopically. Squamocolumner junction is visualized in it's entirity. no visible lesions, no mosaicism, no punctation and no abnormal vasculature. Endocervical curretage Done Impression: Patient tolerated procedure well, colposcopy adequate and Normal cervix Plan: Await the results of the biopsies. documented in this encounter Nursing Notes 05/26/2011 10:45 AM CDT >> MARCE KELLER Mon May 26, 2011 10:50 AM Patient presents with: Colposcopy Marce Keller MA Initial BP 102/70 Wt 117 lb (53.071 kg) LMP 04/23/2011 Estimated Body mass index is 21.06 kg/(m^2) as calculated from the following: Height as of 07/30/10: 5' 2.5(1.588 m). Weight as of this encounter: 117 lb(53.071 kg).. BP completed using cuff size: regular documented in this encounter Plan of Treatment Not on filedocumented as of this encounter Procedures Procedure Name Priority Date/Time Associated Diagnosis Comme nts HC COLP Routine 05/26/2011 4:22 PM LGSIL on Pap smear CERVIX/UPPER VAGINA CDT W ENDOCERV CURETT SURGICAL PATHOLOGY Routine 05/26/2011 11:22 AM LGSIL on Pap sm ear Results for this EXAM CDT procedure are i n the results section. documented in this encounter Results Surgical pathology exam (05/26/2011 11:22 AM CDT) Component Value Ref Test Analysis Performed At [facility] Range Method Time Signature Copath Report Patient Name: MARCELINO DALEY MR#: [id number] Specimen #: [id number] Collected: 05/26/2011 Received: 05/26/2011 Reported: 05/27/2011 17:37 Ordering Phy(s): PETE MARTIN SPECIMEN(S): Endocervical curettings FINAL DIAGNOSIS: Endocervix, curettings - 1. ?Ectocervical squamous epithelium and endoce rvical tissue present. 2. ? High grade squamous intraepithelial lesion (PEDRO-II/ moderate dysplasia). 3. ? Low grade squamous intraepithelial lesion (condylom a/PEDRO-I). COMMENT: Previous Pap. smear ([id number]) was signed as atypical squam ous cells of undetermined significance. ??HPV testing positive (high risk ; 16). Electronically signed out by: Dominick Segura M.D. CLINICAL HISTORY: LGSIL Pap. GROSS: The specimen, labeled ECC, consists of ten leal-brown mucoi d soft tissue fragments with an aggregate dimension of 0.5 x 0.4 x 0.2 cm. ES/1C. ??SA/sg MICROSCOPIC: Microscopic examination was performed. LISA/renu 05-27-11 TESTING LAB LOCATION: [address] ??[phone] COLLECTION SITE: Client: [facility] Location: RIOB (R) Specimen Anatomical Collection Method Collection Time Receive d Time (Source) Location / / Volume Laterality 05/26/2011 11:22 05/26/2011 2:30 AM CDT PM CDT Pete Martin MD [facility] Performing Organization Address City/State/ZIP Code Phon e Number [place] documented in this encounter Visit Diagnoses Diagnosis Papanicolaou smear of cervix with low gr nella squamous intraepithelial lesion (LGSIL) - Primary documented in this encounter Care Teams Ruby On Rails Software Developer Relationship Specialty Start Date End Date Adal Kincaid MD PCP - General 05/05/03 01/28/12 [address] [place] [address] documented as of this encounter
--- OUTSIDE RECORDS SUMMARY | 2022-06-06 21:07 | XMS_ITS | Encounter Summary ---
:1985 Author Organization [place] Address [address] [place] [address]. [place] [address] Care Team Providers Name Role Phone Adal Kincaid MD Primary Care Provider [phone] Reason for Visit Reason Comments Insect Bites Tick Encounter Details Date Type Department Care Team Description 11/29/2010 [facility] Insect Bites (Tick) Visit [address] [address] Social History Tobacco Use Types Packs/Day [...] you attend restoration or Patient refused 2021 mu-ism services? Do [...] of this encounter Patient Instructions Patient InstructionsMeena Corrigan RN - 11/29/2010 12:14 PM CDT Images from the original note were not included. Home Back SP Tick Bites Ticks are insects that feed on the blood of animals and humans. They may gorge themselves for days before you find and remove them. The bites themselves aren't cause for concern. But ticks can carry and transmit illnesses such as Lyme disease and [place] spotted fever. Both diseases begin with a rash and symptoms similar to the flu. In advanced stages, these diseases can be quite serious. A bull`s eye rash is a common symptom of Lyme disease. When to Go to the Emergency Room (ER) Not all ticks carry disease. And a tick must remain attached for at least 24 hours to infect you. Ifyou find a tick, don't panic. Try to carefully remove it with tweezers. Grasp the insect near its head and pull without twisting. If you can't easily dislodge the tick or if you leave the head in your skin, get medical care right away. What to Expect in the ER ?? The tick or any remnants will be removed and the bite cleaned. ?? To prevent disease, you may be given antibiotics. Both Lyme disease and [place] spotted fever respond quickly to these medications. ?? You may be asked to see your doctor for a blood test to check for Lyme disease. Follow-up If you remove a tick yourself, watch for signs of a tick-borne illness. Symptoms may appear within afew days or weeks after a bite. Call your doctor if you notice any of the following: ?? Rash (This may spread outward in a ring from a hard white lump. Or, it may move up your arms and legs to your chest.) ?? Chills and fever ?? Body aches and joint pain ?? Severe headache ?? [phone], [place] [address]. All rights reserved. This information is not intended as a substitute for professional medical care. Always follow your healthcare professional's instructions. documented in this encounter Progress Notes Meena Corrigan RN - 11/29/2010 12:18 PM CDT Pt presents with tick fully intact that had bit patient on right side of posterior neck. Bit site has a small scab on it, no redness, no bullseye, no rash, no swelling. Pt given education on tick bites. Pt to return to clinic or urgent care if signs or symptoms relatedto tick bite occur. Pt agrees with and verbalizes understanding of this plan. Thank you, Meena Corrigan RN [facility] Message handled by Nurse Triage . documented in this encounter Plan of Treatment Not on filedocumented as of this encounter Visit Diagnoses Diagnosis Tick bite - Primary Other, multiple, and unspecified sites, insect bite, nonvenomous, without mention of infection documented in this encounter Care Teams Mottler Machine Feeder Relationship Specialty Start Date End Date Adal Kincaid MD PCP - General 05/05/03 01/28/12 [address] [place] [address] documented as of this encounter
--- OUTSIDE RECORDS SUMMARY | 2022-06-06 21:07 | XMS_ITS | Encounter Summary ---
:1985 Author Organization [place] Address [facility] [place] [address] Care Team Providers Name Role Phone Adal Kincaid MD Primary Care Provider [phone] Reason for Visit Reason Comments Repeat Pap Smear Encounter Details Date Type Department Care Team Description 07/25/2010 Office Visit [facility] Hector Justice LSIL (l ow grade squamous intraepithelial lesion) on Pap smear; [facility] MD [place] Screening for STDs (sexually transmitted diseases); [place] XXX RETIRED XXX Vaginitis [address] [address] [place], [place] [phone] [address] (Work) [phone] Social History Tobacco Use Types Packs/Day Years [...] you attend yazidi or Patient refused 2021 christianity services? Do [...] or slept in a jail (including now)? Sex Assigned at Date Recorded Female 03/25/2021 2:01 PM CDT documented as of this encounter Last Filed Vital Signs Vital Sign Reading Time Taken Comments Blood Pressure 98/68 07/25/2010 9:21 AM VIDEO AND SOUND RECORDER Pulse - - Temperature - - Respiratory Rate - - Oxygen Saturation - - Inhaled Oxygen Concentration - - Weight 50.6 kg (111 lb 9.6 oz) 07/25/2010 9:21 AM VIDEO AND SOUND RECORDER Height 160 cm (5' 3) 07/25/2010 9:21 AM VIDEO AND SOUND RECORDER Body Mass Index 19.77 07/25/2010 9:21 AM VIDEO AND SOUND RECORDER documented in this encounter Progress Notes Hector Justice - 07/26/2010 7:53 AM VIDEO AND SOUND RECORDER Addended by: HECTOR JUSTICE on: 07/26/2010 Modules accepted: Orders O AND SOUND RECORDER Hector Justice - 07/25/2010 9:50 AM CST 25 year old 0 LMP 07/12/2010 Here for follow up Pap as recommended by Dr Guzman ( see his consult). Had LSIL Pap again Also has bump on perineum Breasts No masses, some fibrocystic changes left breast, no discharge, no tenderness Ext gen Single condyloma or papilloma to right of introitus, vagina clean, cervix clean, fundus ant,nl ,adnexa no masses, rv confirms Pap follow up per Dr Guzman Small lesion on perineum Podophyllin See in one month If lesion still present consider excision O AND SOUND RECORDER documented in this encounter Nursing Notes 07/25/2010 9:15 AM CST >> MARCE KELLER [facility] Jul 25, 2010 9:29 AM Patient presents with: Repeat Pap Smear Last pap 08/28/[address] Guzman. Would like STD testing. Needs refill on BC.Marce Keller MA Initial BP 98/68 Ht 5' 3 (1.6 m) Wt 111 lb 9.6 oz (50.621 kg) Estimated Body mass index is 19.77 kg/(m^2) as calculated from the following: Height as of this encounter: 5' 3(1.6 m). Weight as of this encounter: 111 lb 9.6 oz(50.621 kg).. BP completed using cuff size: regular documented in this encounter Plan of Treatment Not on filedocumented as of this encounter Procedures Procedure Name Priority Date/Time Associated Diagnosis Comme nts HIV 1 AND 2 Routine 07/25/2010 10:08 Screening for STDs Resul ts for this ANTIBODY (QUEST) AM VIDEO AND SOUND RECORDER (sexually transmitted pr ocedure are in diseases) the results section. HEPATITIS B SURFACE Routine 07/25/2010 10:08 Screening for STD s Results for this ANTIGEN AM VIDEO AND SOUND RECORDER (sexually transmitted proced ure are in diseases) the results section. ANTI TREPONEMA Routine 07/25/2010 10:08 Screening for STDs Res ults for this AM VIDEO AND SOUND RECORDER (sexually transmitted proced ure are in diseases) the results section. WET PREPARATION Routine 07/25/2010 9:47 Screening for STDs Res ults for this AM VIDEO AND SOUND RECORDER (sexually transmitted proced ure are in diseases) the results section. VIRAL CULTURE Routine 07/25/2010 9:47 Screening for STDs Resul ts for this AM VIDEO AND SOUND RECORDER (sexually transmitted proced ure are in diseases) the results section. NEISSERIA Routine 07/25/2010 9:47 Screening for STDs Result s for this GONORRHOEAE PCR AM VIDEO AND SOUND RECORDER (sexually transmitted pro cedure are in diseases) the results section. CHLAMYDIA Routine 07/25/2010 9:47 Screening for STDs Result s for this TRACHOMATIS PCR AM VIDEO AND SOUND RECORDER (sexually transmitted pro cedure are in diseases) the results section. PAP IMAGED THIN Routine 07/25/2010 12:00 LSIL (low grade Resul ts for this LAYER, DIAGNOSTIC AM VIDEO AND SOUND RECORDER squamous procedure are in intraepithelial lesion) the results on Pap smear section. documented in this encounter Results Anti treponema EIA (07/25/2010 10:08 AM VIDEO AND SOUND RECORDER) Analysis Performed At Patho logist Time Signature Treponema Negative NEG [facility] Antibody CAMPUS LABS Specimen Anatomical Collection Method Collection Time Receive d Time (Source) Location / / Volume Laterality Blood specimen 07/25/2010 10:08 0 (specimen) AM VIDEO AND SOUND RECORDER 10:13 AM VIDEO AND SOUND RECORDER Hector Justice MD LAB - BLOOD ORDERABLES Performing Organization Address City/State/ZIP Code Phon e Number [facility] [address] [place], [place] [phone] [place] [address] LABS HIV 1 and 2 Antibody (07/25/2010 10:08 AM VIDEO AND SOUND RECORDER) Analysis Performed At Patho logist Time Signature HIV 1&2 Negative NEG [facility] Antibody [facility] LABS Specimen Anatomical Collection Method Collection Time Receive d Time (Source) Location / / Volume Laterality Blood specimen 07/25/2010 10:08 0 (specimen) AM VIDEO AND SOUND RECORDER 10:13 AM VIDEO AND SOUND RECORDER Hector Justice MD LAB - BLOOD ORDERABLES Performing Organization Address City/State/ZIP Code Phon e Number [facility] [address] [place], [place] [phone] [place] [address] LABS Hepatitis B surface antigen (07/25/2010 10:08 AM VIDEO AND SOUND RECORDER) Analysis Performed At Path logist Time Signature Hep B Surface Negative NEG [facility] Agn [facility] LABS Specimen Anatomical Collection Method Collection Time Receive d Time (Source) Location / / Volume Laterality Blood specimen 07/25/2010 10:08 0 (specimen) AM VIDEO AND SOUND RECORDER 10:13 AM VIDEO AND SOUND RECORDER Hector Justice MD LAB - BLOOD ORDERABLES Performing Organization Address City/State/ZIP Code Phon e Number [address] LABS Viral culture (07/25/2010 9:47 AM VIDEO AND SOUND RECORDER) [facility] Method Time Signature Viral Culture Vagina [place] Specimen [facility] LAB Result No virus [facility] isolated [facility] LABS Status FINAL [facility] LABS Specimen Anatomical Collection Method Collection Time Receive d Time (Source) Location / / Volume Laterality 07/25/2010 9:47 AM 0 VIDEO AND SOUND RECORDER 10:20 AM VIDEO AND SOUND RECORDER Hector Justice MD LAB - MICRO GENERAL ORDERABL ES Performing Organization Address City/State/ZIP Code Phon e Number [address] CLINIC LAB [facility] LABS Wet prep (07/25/2010 9:47 AM VIDEO AND SOUND RECORDER) [facility] Method Time Signature Specimen Vagina [place] Description [facility] LAB Wet Prep Clue cells seen [place] No yeast seen [place] No Trichomonas seen CLINIC LAB Micro Report FINAL [place] Status 07/25/2010 [facility] LAB Specimen Anatomical Collection Method Collection Time Receive d Time (Source) Location / / Volume Laterality 07/25/2010 9:47 AM 0 VIDEO AND SOUND RECORDER 10:05 AM VIDEO AND SOUND RECORDER Hector Justice MD LAB - MICRO GENERAL ORDERABL ES Performing Organization Address City/State/ZIP Code Phon e Number [facility] [address] [place], [place] [address] [address] [facility] LAB CHLAMYDIA TRACHOMATIS PCR (07/25/2010 9:47 AM VIDEO AND SOUND RECORDER) Component Value Ref Test Analysis Performed At [facility] gist Range Method Time Signature Specimen Vagina [facility] LAB Chlamydia Negative for C. trachomatis rRNA by seafood clerk mediated amplification. [facility] Trachomatis A negative result by transc ription mediated amplification does not preclude the [place] PCR presence of C. trachomatis infection because results are dependent on proper CAMPUS LABS and adequate collection, absence of inhibitors, and suffici ent rRNA to be detected. Specimen Anatomical Collection Method Collection Time Receive d Time (Source) Location / / Volume Laterality 07/25/2010 9:47 AM 0 VIDEO AND SOUND RECORDER 10:19 AM VIDEO AND SOUND RECORDER Hector Justice MD LAB - MICRO GENERAL ORDERABL ES Performing Organization Address City/State/ZIP Code Phon e Number [address] LAB [facility] LABS [place] GONORRHOEA PCR (07/25/2010 9:47 AM VIDEO AND SOUND RECORDER) Component Value Ref Test Analysis Performed At [facility] gist Range Method Time Signature Specimen Vagina [facility] LAB N Gonorrhea Negative for N. gonorrhoeae rRNA by seafood clerk mediated amplification. [facility] PCR A negative result by transc ription mediated amplification does not preclude the [place] presence of N. gonorrhoeae infection because re sults are dependent on proper CAMPUS LABS and adequate collection, absence of inhibitors, and suffici ent rRNA to be detected. Specimen Anatomical Collection Method Collection Time Receive d Time (Source) Location / / Volume Laterality 07/25/2010 9:47 AM 0 VIDEO AND SOUND RECORDER 10:19 AM VIDEO AND SOUND RECORDER Hector Justice MD LAB - MICRO GENERAL ORDERABL ES Performing Organization Address City/State/ZIP Code Phon e Number [facility] [address] [place] [address] [facility] LAB [facility] LABS PAP imaged thin layer, diagnostic (07/25/2010 12:00 AM VIDEO AND SOUND RECORDER) Component Value Ref Test Analysis Performed At [facility] Range Method Time Signature PAP NIL COPATH Copath Report COPATH Patient Name: MARCELINO DALEY MR#: [id number] Specimen #: [id number] Collected: 07/25/2010 Received: 07/26/2010 Reported: 07/29/2010 13:51 Ordering Phy(s): HECTOR JUSTICE SPECIMEN/STAIN PROCESS: Pap Imaged thin layer prep diagnostic (SurePath, FocalPoint with guided screening) ? Pap-Cyto x 1, Reflex HPV x 1 SOURCE: Cervical, endocervical ---- Pap Imaged thin layer prep diagnostic (SurePath, FocalPoint with guided screening) SPECIMEN ADEQUACY: Satisfactory for evaluation. -Transformation zone component present. CYTOLOGIC INTERPRETATION: Negative for Intraepithelial Lesion or Malignancy Electronically signed out by: LANDEN Pratt (ASCP) Processed and screened at [facility] CLINICAL HISTORY: Oral Control Pill, Previous abnormal pap: lsil Date of Last Pap: 210, Papanicolaou Test Limitations: ??Cervical cytology is a scre ening test with limited sensitivity; regular screening is critical for cancer prevention; Pap tests are primarily effective for the diagnosis/prevention of squamous cell carcinoma, not adenoca rcinomas or other cancers. TESTING LAB LOCATION: [address] ??[address] COLLECTION SITE: Client: ??[facility] Location: RIOB (R) Specimen (Source) Anatomical Collection Method Collection Time Re ceived Time Location / / Volume Laterality Cytologic 07/25/2010 07/26/2010 10:3 1 material AM VIDEO AND SOUND RECORDER (specimen) Hector Justice MD LAB - OPTIME CLINICAL SPECIM EN Performing Organization Address City/State/ZIP Code Phon e Number [place] documented in this encounter Visit Diagnoses Diagnosis LSIL (low grade squamous intraepithelial lesion) on Pap smear Papanicolaou smear of cervix with low gr nella squamous intraepithelial lesion (LGSIL) Screening for STDs (sexually transmitted diseases) Screening examination for venereal disea se Vaginitis Vaginitis and vulvovaginitis, unspecifie d documented in this encounter Care Teams Securities Research Analyst Relationship Specialty Start Date End Date Adal Kincaid MD PCP - General 05/05/03 01/28/[address] [place] [address] documented as of this encounter
--- OUTSIDE RECORDS SUMMARY | 2022-06-06 21:07 | XMS_ITS | Encounter Summary ---
:1985 Author Organization [place] Address [address] [place] [address]. [place] [address] Care Team Providers Name Role Phone Adal Kincaid MD Primary Care Provider [phone] Reason for Visit Reason Onset Date Comments Anxiety 05/17/2010 Encounter Details Date Type Department Care Team Description 05/17/2010 Telephone [facility] Mike Kincaid, Anxiety Cezar ROLLINS [address] [place] [address] [place] [address] (Wo rk) Social History Tobacco Use Types [...] you attend nondenominational or Patient refused 2021 congregation services? Do [...] this encounter Miscellaneous Notes Telephone Encounter - Madhuri Bird - 05/20/2010 4:05 PM CDT Pt was called and informed. Madhuri Bird MA Telephone Encounter - Adal Kincaid - 05/20/2010 3:50 PM CDT celexa faxed for 1 mth, pl advise to f/u in 1 mth. Telephone Encounter - Annalisa Haynes - 05/17/2010 8:47 AM CDT Pt calls stating she is having a lot of anxiety. She saw Dr. Kincaid on 04/16/09 for depression and was given citalopram prescription. She states she never took the medication. She didn't want to starton it. Now she is having anxiety, she cannot sleep, cannot stop thinking. She gets nauseated, diarrhea fromanxiety. She states she thinks she used to have OCD. She took 4 Tylenol PM tablets last night. Advised her not to take that many. She agrees, she just did it once. She has no insurance right now, she is unemployed right now. She is not eligible for MA due to her unemployment funds. She is asking if Dr. Kincaid can order medication, without her coming in for a few months until she gets a job. She states she still has medical bills from the [facility] she had to do a year ago. Please advise. documented in this encounter Plan of Treatment Not on filedocumented as of this encounter Visit Diagnoses Diagnosis Moderate major depression (H) - Primary Major depressive disorder, single episod e, moderate documented in this encounter Care Teams Product Support Representative Relationship Specialty Start Date End Date Adal Kincaid MD PCP - General 10/10/03 7/4/12 [address] [place], [place] [id number] documented as of this encounter
--- OUTSIDE RECORDS SUMMARY | 2022-06-06 21:07 | XMS_ITS | Encounter Summary ---
:1985 Author Organization [place] Address [address] [place] [address]. [place] [address] Care Team Providers Name Role Phone Adal Kincaid MD Primary Care Provider [phone] Reason for Visit Reason Onset Date Comments Refill Request 07/16/2010 Encounter Details Date Type Department Care Team Description 07/16/2010 Refill [facility] Women's Hector Hernandez MD Refill Request Clinic [place] XX RETIRED XXX [address] [place] [phone] (Wo rk) Social History Tobacco Use [...] Notes Telephone Encounter - Pamella Chapman - 07/16/2010 1:44 PM CST Refill request form faxed from pharmacy. Last pap 09/05. rx approved x 3 months per protocol. Pt was referred to Dr. Guzman for her abnormal pap smears. Geronimo Chapman RN ETING ANALYTICS ANALYST documented in this encounter Plan of Treatment Not on filedocumented as of this encounter Visit Diagnoses Diagnosis Contraception - Primary Unspecified contraceptive management documented in this encounter Care Teams Console Operator Relationship Specialty Start Date End Date Adal Kincaid MD PCP - General 05/05/03 01/28/12 [address] [place] [address] documented as of this encounter
--- OUTSIDE RECORDS SUMMARY | 2022-06-06 21:07 | XMS_ITS | Encounter Summary ---
:1985 Author Organization [place] Address [facility] [place] [address] Care Team Providers Name Role Phone Adal Kincaid MD Primary Care Provider [phone] Reason for Visit Reason Comments Ultrasound Encounter Details Date Type Department Care Team Description 05/19/2011 Orders Only [facility] Women's Ab dominal pain, other Clinic [place] specified site (Primary [address] Dx) [address] [place] [address] Social History Tobacco Use [...] you attend jew or Patient refused 2021 mosque services? Do [...] Priority Date/Time Associated Diagnosis Comme nts US PELVIC TRANSABDOMINAL Routine 05/19/2011 Abdominal pain, other Results for this AND TRANSVAGINAL specified site procedure are in the results section. documented in this encounter Results US Pel W/Trans* (05/19/2011) Anatomical Region Laterality Modality Abdomen/Pelvis Other Impressions 05/19/2011 Complete pelvic ultrasound utilizing both abdominal and vaginal transducers. ??Normal study. Alecia Marks M.D. Narrative 05/19/2011 ULTRASOUND - PELVIC SUPERVISOR PIPELINE MAINTENANCE [facility] Obstetrics & Gynecology [address] [facility]. [address] [place] [address] Referring MD: Luis Alfredo Melvin MD Primary Clinic: [facility] Ultrasound disk#: [id number] CLINICAL INFORMATION Indications for ultrasound: Abdominal pain LMP: 28 Sep 11 ?Hormones: OCP Measurements: Uterus: ??7.3 x 3.8 x 4.7 cm. ?? Position is anteverted. ??Contour is smt h/reg. Endo cav: 2.9 mm ? Smooth/regu lar/wnl Cervix: wnl Right ovary: ??2.1 x 1.3 x 2.8 cm. ?? Wn l Left ovary: ?? 2.0 x 0.9 x 1.5 cm. ??Wnl Cul de sac: free fluid - 1.9 x 1.0 cm Hector Melvin MD IMG US ORDERABLES documented in this encounter Visit Diagnoses Diagnosis Abdominal pain, other specified site - P rimary documented in this encounter Care Teams Service Desk Analyst Relationship Specialty Start Date End Date Adal Kincaid MD PCP - General 05/05/03 01/28/12 [address] [place] [address] documented as of this encounter
--- OUTSIDE RECORDS SUMMARY | 2022-06-06 21:07 | XMS_ITS | Encounter Summary ---
:1985 Author Organization [place] Address [facility] [place] [address] Care Team Providers Name Role Phone Adal Kincaid MD Primary Care Provider [phone] Encounter Details Date Type Department Care Team Description 04/15/2011 Orders Only [facility] Hector Melvin Vagi nitis (Primary Dx) Women[facility] Clinic MD [place] XXX RETIRED XXX [address] [place] [phone] Social History Tobacco Use Types Packs/Day Years [...] you attend adventist or Patient refused 2021 tenriism services? Do [...] as of this encounter Visit Diagnoses Diagnosis Vaginitis - Primary Vaginitis and vulvovaginitis, unspecifie d documented in this encounter Care Teams M1 Armor Crewman Relationship Specialty Start Date End Date Adal Kincaid MD PCP - General 05/05/03 01/28/12 [address] [place] [address] documented as of this encounter
--- OUTSIDE RECORDS SUMMARY | 2022-06-06 21:07 | XMS_ITS | Encounter Summary ---
:1985 Author Organization [place] Address [facility] [place] [address] Care Team Providers Name Role Phone Adal Kincaid MD Primary Care Provider Reason for Visit Reason Comments Leep Encounter Details Date Type Department Care Team Description 07/07/2011 Office Visit [facility] Edwige Martin [facility] MD Alexandre cervix (PEDRO I I) [place] (Primary Dx) [address] [place] [address] Social History Tobacco Use Types Packs/Day Years [...] you attend hindu or Patient refused 2021 bahai services? Do [...] Sign Reading Time Taken Comments Blood Pressure 118/64 07/07/2011 1:42 PM CORRECTIONAL COUNSELOR/CASE MANAGER Pulse - - Temperature - - Respiratory Rate - - Oxygen Saturation - - Inhaled Oxygen Concentration - - Weight 54.1 kg (119 lb 4.8 oz) 07/07/2011 1:42 PM CORRECTIONAL COUNSELOR/CASE MANAGER Height - - Body Mass Index 21.47 07/30/2010 3:12 PM CORRECTIONAL COUNSELOR/CASE MANAGER documented in this encounter Progress Notes Edwige Martin - 07/07/2011 7:09 PM CST SUBJECTIVE:: Marcelino Daley,is a 26 year old female, here for LEEP procedure. Subsequent colposcopypath report noted PEDRO 2 in the ECC positive. Discussed risks of procedure such as infection, bleeding, cervical incompetence. Procedure: Cervix is stained with acetic acid and viewed colposcopically. Squamocolumner junction isnot visualized in it's entirety. no visible lesions, no mosaicism, no punctation and no abnormal vasculature. Cervix injected with 1% lidocaine with epinephrine. Small loop for endocervical specimen. Hemostasis with ball cautery and monsel's solution. Impression: LEEP for colposcopy inadequate, limited by SCJ not seen, ECC positive Plan: Await the results of the biopsies. Will be conservative in view of nulliparous status and prior LEEP. ECTIONAL COUNSELOR/CASE MANAGER documented in this encounter Nursing Notes 07/07/2011 1:15 PM CST >> MARCE KELLER [facility] Jul 07, 2011 1:48 PM Patient presents with: Leep Marce Keller MA Initial BP 118/64 Wt 119 lb 4.8 oz (54.114 kg) LMP 06/18/2011 Estimated Body mass index is 21.47kg/(m^2) as calculated from the following: Height as of 07/30/10: 5' 2.5(1.588 m). Weight as of this encounter: 119 lb 4.8 oz(54.114 kg).. BP completed using cuff size: regular documented in this encounter Plan of Treatment Not on filedocumented as of this encounter Procedures Procedure Name Priority Date/Time Associated Diagnosis Comme [facility] COLP Routine 07/07/2011 7:09 PM Moderate dysplasia CERVIX/UPPER VAGINA CORRECTIONAL COUNSELOR/CASE MANAGER of cervix (PEDRO II) W LOOP ELEC BX CERVIX SURGICAL PATHOLOGY Routine 07/07/2011 2:30 PM Moderate dysplas ia Results for this EXAM CORRECTIONAL COUNSELOR/CASE MANAGER of cervix (PEDRO II) procedure are in the results section. documented in this encounter Results Surgical pathology exam (07/07/2011 2:30 PM CORRECTIONAL COUNSELOR/CASE MANAGER) Component Value Ref Test Analysis Performed At [facility] Range Method Time Signature Copath Report Patient Name: MARCELINO DALEY MR#: [id number] Specimen #: [id number] Collected: 07/07/2011 Received: 07/08/2011 Reported: 07/09/2011 14:56 Ordering Phy(s): EDWIGE MARTIN SPECIMEN(S): LEEP biopsy, superficial FINAL DIAGNOSIS: Cervical LEEP - ? 1. ??No diagnostic dysplasia identified. ? 2. ??Sampled composed only of ectocervical squamous e pithelium. ? 3. ??Transition zone not present to evaluate. ? 4. ??See microscopic description. Electronically signed out by: Michele Fernandes M.D. CLINICAL HISTORY: PEDRO 2. GROSS: The specimen, labeled superficial LEEP, consists of two un oriented fragments of garcia tissue. ??The larger is roughly oval in co nfiguration and measures 0.9 x 0.6 x 0.3 cm. ??The smaller is irregular and measures 0.3 x 0.3 x 0.2 cm. ??Orientation is not possible. ??The fra gments are inked. ??Block 1 - cross sections of largest fragment; block 2 - bisected smaller fragment. ??Entirely submitted. ??VIRAL/adrien MICROSCOPIC: The sample is composed of ectocervical squamous mucosa only with areas of LEEP artifact. ??No high grade dysplasia or diagnostic lo w grade dysplasia is identified. ??Transition zone is not present to evaluate. Because the sample does not contain transition zone, clinica l correlation is required to determine whether the area contai jean the prior PEDRO 2 on ECC has been removed. VIRAL/adrien 07-09-11 TESTING LAB LOCATION: [address] ??[id number] COLLECTION SITE: Client: [facility] Location: RIOB (R) Specimen Anatomical Collection Method Collection Time Receive d Time (Source) Location / / Volume Laterality 07/07/2011 2:30 PM 1 1:37 CORRECTIONAL COUNSELOR/CASE MANAGER PM CORRECTIONAL COUNSELOR/CASE MANAGER [facility] Performing Organization Address City/State/ZIP Code Phon e Number COPATH documented in this encounter Visit Diagnoses Diagnosis Moderate dysplasia of cervix (PEDRO II) - Primary Moderate dysplasia of cervix documented in this encounter Care Teams Director Funeral Relationship Specialty Start Date End Date Adal Kincaid MD PCP - General 05/05/03 01/28/12 [address] [place] [address] documented as of this encounter
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
--- OUTSIDE RECORDS SUMMARY | 2022-06-06 21:07 | XMS_ITS | Encounter Summary ---
:1985 Author Organization [place] Address [facility] [place] [address] Care Team Providers Name Role Phone Adal Kincaid MD Primary Care Provider [phone] Reason for Visit Reason Comments Vaginal Problem Encounter Details Date Type Department Care Team Description 04/15/2011 Office Visit [facility] Hector Melvin, Vagi nal discharge [facility] (Primary Dx) [place] XXX RETIRED XXX [address] [place] [address] [address] [address] [place], [place] [phone] [address] (Work) [phone] Social History Tobacco Use Types Packs/Day Years [...] you attend baptist or Patient refused 2021 faith services? 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 Ext gen nl, vagina white creamy discharge, cervix clean, fundus ant, adnexa no masses, rv confirms. Vaginitis Wet prep Negative Clindamycin vaginal cream documented in this encounter Nursing Notes 04/15/2011 9:45 AM CDT >> MARCE Aguirre Apr 15, 2011 9:56 AM Patient presents with: Vaginal Problem Pt c/o white discharge with odor. Marce Bazzi MA Initial BP 102/62 Wt 117 lb 8 oz (53.298 kg) LMP 03/26/2011 Estimated Body mass index is 21.15 kg/(m^2) as calculated from the following: Height as of 07/30/10: 5' 2.5(1.588 m). Weight as of this encounter: 117 lb 8 oz(53.298 kg).. BP completed using cuff size: regular documented in this encounter Plan of Treatment Not on filedocumented as of this encounter Procedures Procedure Name Priority Date/Time Associated Diagnosis Comme nts WET PREPARATION Routine 04/15/2011 9:59 AM Vaginal discharge R esults for this CDT procedure are i n the results section. documented in this encounter Results Wet prep (04/15/2011 9:59 AM CDT) [facility] Method Time Signature Specimen Vagina [facility] Description [facility] Wet Prep No clue cells seen [place] No yeast seen [facility] No Trichomonas seen [facility] Micro Report FINAL [place] Status 04/15/2011 [facility] Specimen Anatomical Collection Method Collection Time Receive d Time (Source) Location / / Volume Laterality 04/15/2011 9:59 AM 1 CDT 10:04 AM CDT Hector Melvin MD LAB - MICRO GENERAL ORDERABL ES Performing Organization Address City/State/ZIP Code Phon e Number [facility] [address] [place] [address] [address] [facility] documented in this encounter Visit Diagnoses Diagnosis Vaginal discharge - Primary Leukorrhea, not specified as infective documented in this encounter Care Teams Program Director/Air Personality Relationship Specialty Start Date End Date Adal Kincaid MD PCP - General 05/05/03 01/28/12 [address] [place] [address] documented as of this encounter
--- OUTSIDE RECORDS SUMMARY | 2022-06-06 21:07 | XMS_ITS | Encounter Summary ---
:1985 Author Organization [place] Address [address] [place] [address]. [place] [address] Care Team Providers Name Role Phone Adal Kincaid MD Primary Care Provider [phone] Reason for Visit Reason Comments Ear Problem left ear, plugged, pressure x2wks Encounter Details Date Type Department Care Team Description 12/16/2010 Office Visit [facility] Pete Aquino Impacte d cerumen Clinic [place] (Primary Dx) [address] [address] [phone] Social History Tobacco Use Types Packs/Day Years [...] you attend muslim or Patient refused 2021 hoahaoism services? 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 No rhinitis, fever BP 100/58 Pulse 78 Temp(Src) 98.2 ??F (36.8 ??C) (Oral) Wt 114 lb (51.71 kg) SpO2 98% EXAM right ear clear. Left with cerumen. Lavaged unsuccessfully. Removed by physician with some difficulty large piece cerumen ASSESSMENT / PLAN: 380.4 Impacted cerumen (primary encounter diagnosis) Comment: Plan: REMOVE IMPACTED CERUMEN Ear care discussed Pete Aquino MD documented in this encounter Nursing Notes 12/16/2010 11:30 AM CDT >> MERVAT TOVAR Mon December 16, 2010 11:47 AM Patient presents with: Ear Problem - left ear, plugged, pressure x2wks Initial BP 100/58 Pulse 78 Temp(Src) 98.2 ??F (36.8 ??C) (Oral) Wt 114 lb (51.71 kg) SpO2 98%BMIHIS@ BP completed using cuff size regular right Arm Health Maintenance Updated with Patient:Yes Tobacco Verified: Yes Payor/Verify RX Benefits/Reconcile Disp Completed if allowed: Yes Family History Updated: Yes Immunizations Up to Date: yes Mychart Offered: Yes Mervat Tovar MA documented in this encounter Plan of Treatment Not on filedocumented as of this encounter Procedures Procedure Name Priority Date/Time Associated Diagnosis Comme nts HC REMOVE IMPACTED Routine 12/16/2010 11:50 AM CDT Impacted ce rumen CERUMEN documented in this encounter Visit Diagnoses Diagnosis Impacted cerumen - Primary documented in this encounter Care Teams Guide Cruise Relationship Specialty Start Date End Date Adal Kincaid MD PCP - General 05/05/03 01/28/12 [address] [place] [address] documented as of this encounter
--- OUTSIDE RECORDS SUMMARY | 2022-06-06 21:07 | XMS_ITS | Encounter Summary ---
:1985 Author Organization [place] Address Count includes the [facility] [place] [address] Care Team Providers Name Role Phone Adal Kincaid MD Primary Care Provider [phone] Reason for Visit Reason Comments Repeat Pap Smear Encounter Details Date Type Department Care Team Description 12/31/[address] [facility] Marjorie Justice LSIL (l ow grade squamous [facility] MD Tona intraepithelial lesion) [place] XXX RETIRED XXX on Pap smear (Primary [address] Dx) [place], [place] [address] [address] [place], [place] [phone] [address] (Work) [phone] Social History Tobacco Use Types Packs/Day Years [...] you attend cheondoism or Patient refused 2021 caodaism services? 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 Had colp by Dr Guzman Cervix scarred fundus ant, nl, adnexa no masses, rv confirms Pap smear documented in this encounter Nursing Notes 12/31/2010 10:30 AM CDT >> MARCE Aguirre Dec 31, 2010 10:42 AM Patient presents with: Repeat Pap Smear Marce Bazzi MA Initial BP 98/62 Wt 115 lb (52.164 kg) LMP 12/04/2010 Estimated Body mass index is 20.70 kg/(m^2) as calculated from the following: Height as of 07/30/10: 5' 2.5(1.588 m). Weight as of this encounter: 115 lb(52.164 kg).. BP completed using cuff size: regular documented in this encounter Plan of Treatment Not on filedocumented as of this encounter Procedures Procedure Name Priority Date/Time Associated Diagnosis Comme nts PAP IMAGED THIN Routine 12/31/2010 10:42 LSIL (low grade Resul ts for this LAYER, DIAGNOSTIC AM CDT squamous procedure are in intraepithelial lesion) the results on Pap smear section. HPV SCR W REF TO Routine 12/31/2010 12:00 Results for this FELICITA ANAL PAP OR AM CDT procedure a re in TISSUE the results section. documented in this encounter Results (ABNORMAL) PAP imaged thin layer, diagnostic (12/31/2010 10:42 AM CDT) Component Value Ref Test Analysis Performed At [facility] Method Time Signature PAP ASC-US (A) COPATH Copath Report LIANAATH Patient Name: MARCELINO DALEY MR#: [id number] Specimen #: [id number] Collected: 12/31/2010 Received: 01/01/2011 Reported: 01/06/2011 08:52 Ordering Phy(s): MARJORIE JUSTICE SPECIMEN/STAIN PROCESS: Pap Imaged thin layer prep diagnostic (SurePath, FocalPoint with guided screening) ? Pap-Cyto x 1, Reflex HPV x 1 SOURCE: Cervical, endocervical ---- Pap Imaged thin layer prep diagnostic (SurePath, FocalPoint with guided screening) SPECIMEN ADEQUACY: Satisfactory for evaluation. -Transformation zone component present. CYTOLOGIC INTERPRETATION: Epithelial Cell Abnormality: ??Squamous Cell: ??Atypical squ amous cells-of undetermined significance (ASC-US). RECOMMENDATIONS: Comment: Molecular testing for HPV has been ordered for this specimen. Electronically signed out by: Dian Mccarty M.D. Processed and screened at [facility] CLINICAL HISTORY: LMP: 5--11 Oral Control Pill, Previous normal pap Date of Last Pap: 07-25-10, Papanicolaou Test Limitations: ??Cervical cytology is a scre ening test with limited sensitivity; regular screening is critical for cancer prevention; Pap tests are primarily effective for the diagnosis/prevention of squamous cell carcinoma, not adenoca rcinomas or other cancers. TESTING LAB LOCATION: [address] ??[id number] COLLECTION SITE: Client: ??[facility] Location: RIOB (R) Specimen (Source) Anatomical Collection Method Collection Time Re ceived Time Location / / Volume Laterality Cytologic 12/31/2010 10:42 01/01/2011 material AM CDT 10:44 AM CDT (specimen) Marjorie Justice MD LAB - OPTIME CLINICAL SPECIM EN Performing Organization Address City/State/ZIP Code Phon e Number COPATH HPV screen with reflex to genotype (12/31/2010 12:00 AM CDT) Component Value Ref Test Analysis Performed At [facility] Range Method Time Signature Copath Report Patient Name: MARCELINO DALEY MR#: [id number] Specimen #: [id number] Collected: 12/31/2010 00:00 Received: 01/07/2011 13:41 Reported: 01/09/2011 15:41 Ordering Phy(s): MARJORIE JUSTICE TEST(S) REQUESTED: A: Human Papillomavirus Screen Analysis B: Human Papillomavirus Molecular Genotyping Electrophoresis Analysis SPECIMEN DESCRIPTION: Cervical Cells METHODOLOGY: ??Total cellular DNA was extracted from the abo ve specimen and up to 1 ug subjected to DNA amplification with a series of oligonucleotide primers directed to the L1 region of the hum an papillomavirus genome. ??The resulting PCR fragments were th arthur by capillary electrophoresis using a [employer] with [employer]ulator software. ??The PCR products from samples positive for HPV D NA were then digested with a series of restriction endonuclease enzymes. ??The resulting pattern of bands corresponding to the digested DNA products were interpreted according to the corresponding HPV DNA cont rols. Amplification of a segment of the beta globin gene serves as an internal control of DNA amplification. RESULTS (L1 region): ? POSITIVE FOR HIGH RISK HPV DNA Final Diagnosis: This patient's sample is positive for high risk HPV DNA. Diagnosis Comment: This patient's sample is positive for HPV 16 DNA. The presen ce of HPV 16 DNA in lesions of the anogenital tract is considered a high risk factor for the development of malignancy. Close clinical follow-up is recommended. Guidelines referenced to assign HPV carcinogenicity are ??fr om ??Angelica V, et al. A review of human carcinogens-Part B:biological ag ents. Lancet Oncol; October 2008;10:321. High risk types: 16, 18, 31, 33, 3 5, 39, 45, 51, 52, 56, 58, 59, 68. This test was developed and its performance determined by lisa qu[facility] ??[facility] Laboratory. It has not been cleared or approved by the U.S. Food and Elmo g Administration. ??The FDA has determined that such clearance or approval is not necessary. ??Pursuant to the requirements of CLIA' 88 , this laboratory has established and verified the test' s accuracy and precision. ??This test is used for clinical purposes. Electronically Signed Out By: David Mccain MD, [facility] TESTING LAB LOCATION: [facility] D210 [facility] [address] [place] [id number] COLLECTION SITE: Client: ??[facility] Location: ??RIOB (R) Specimen (Source) Anatomical Collection Method Collection Time Re ceived Time Location / / Volume Laterality 12/31/2010 01/07/2011 1:41 PM CDT Marjorie Justice MD LAB - GENOMICS Performing Organization Address City/State/ZIP Code Phon e Number COPATH documented in this encounter Visit Diagnoses Diagnosis LSIL (low grade squamous intraepithelial lesion) on Pap smear - Primary Papanicolaou smear of cervix with low gr nella squamous intraepithelial lesion (LGSIL) documented in this encounter Care Teams Leather Flesher Relationship Specialty Start Date End Date Adal Kincaid MD PCP - General 05/05/03 01/28/12 [address] [place] [address] documented as of this encounter
--- OUTSIDE RECORDS SUMMARY | 2022-06-06 21:07 | XMS_ITS | Encounter Summary ---
:1985 Author Organization [place] Address [address] [place] [address]. [place] [address] Care Team Providers Name Role Phone Adal Kincaid MD Primary Care Provider [phone] Reason for Visit Reason Onset Date Comments Refill Request 06/16/2011 Encounter Details Date Type Department Care Team Description 06/16/2011 Refill [facility] Women[facility] MartinPete MD Refill Request Clinic [address] [place] [address] Social History Tobacco Use Types Packs/Day [...] you attend jewish or Patient refused 2021 taoism services? Do you belong to any clubs [...] Notes Telephone Encounter - Pamella Chapman - 06/16/2011 4:28 PM CST Pt is requesting a refill on her ocp. Approved per protocol. Geronimo Chapman RN ULTING PROJECT DIRECTOR documented in this encounter Plan of Treatment Not on filedocumented as of this encounter Visit Diagnoses Diagnosis Contraception - Primary Unspecified contraceptive management documented in this encounter Care Teams Financial Services Intern Relationship Specialty Start Date End Date Adal Kincaid MD PCP - General 05/05/03 01/28/12 [address] [place] [address] documented as of this encounter
--- OUTSIDE RECORDS SUMMARY | 2022-06-06 21:07 | XMS_ITS | Encounter Summary ---
:1985 Author Organization [place] Address [facility] [place] [address] Care Team Providers Name Role Phone Adal Kincaid MD Primary Care Provider [phone] Reason for Visit Reason Comments Vaginal Problem Encounter Details Date Type Department Care Team Description 02/21/2011 Office Visit [facility] Pete Martin Acute vulv itis or [facility] MD Alexandre vulvovaginiti s (Primary [place] Dx) [address] [place] [id number] Social History Tobacco Use Types Packs/Day Years [...] you attend moravian or Patient refused 2021 cheondoism services? 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 Recent negative wet prep. Exam:normal and physiologic disharge is present. Examination of the vulva and vagina is positive forfor inflamation. Imp: Contact vulvitis. Plan: Wet mount repeated. [place] ointment. documented in this encounter Nursing Notes 02/21/2011 3:00 PM CDT >> MARCE KELLER Fri Feb 21, 2011 3:04 PM Patient presents with: Vaginal Problem Marce Keller MA Initial BP 102/68 Wt 115 lb (52.164 kg) LMP 12/31/2010 Estimated Body mass index is 20.70 kg/(m^2) as calculated from the following: Height as of 11: 5' 2.5(1.588 m). Weight as of this encounter: 115 lb(52.164 kg).. BP completed using cuff size: regular documented in this encounter Plan of Treatment Not on filedocumented as of this encounter Procedures Procedure Name Priority Date/Time Associated Diagnosis Comme nts WET PREPARATION Routine 02/21/2011 3:28 PM Acute vulvitis or R esults for this CDT vulvovaginitis procedure are in the results section. documented in this encounter Results Wet prep (02/21/2011 3:28 PM CDT) [facility] Method Time Signature Specimen Vagina [facility] Description [facility] Wet Prep Yeast seen [place] No Trichomonas seen [facility] No clue cells seen CLINIC LAB Micro Report [facility]AL [place] Status 02/21/2011 [facility] Specimen Anatomical Collection Method Collection Time Receive d Time (Source) Location / / Volume Laterality 02/21/2011 3:28 PM 1 3:33 CDT PM CDT Pete Martin MD LAB - MICRO GENERAL ORDERABL ES Performing Organization Address City/State/ZIP Code Phon e Number [facility] [address], [place] [address] [address] [facility] documented in this encounter Visit Diagnoses Diagnosis Acute vulvitis or vulvovaginitis - Prima ry Vaginitis and vulvovaginitis, unspecifie d documented in this encounter Care Teams Dowel Setting Machine Operator Relationship Specialty Start Date End Date Adal Kincaid MD PCP - General 05/05/03 01/28/12 [address] [place] [address] documented as of this encounter
--- OUTSIDE RECORDS SUMMARY | 2022-06-06 21:08 | XMS_ITS | Encounter Summary ---
:1985 Author Organization [place] Address [address] [place], [place] [address]. [place] [address] Care Team Providers Name Role Phone Adal Kincaid MD Primary Care Provider [phone] Reason for Visit Reason Comments Consult Encounter Details Date Type Department Care Team Description 04/17/2009 Office Visit [facility] Hector Melvin S, Mode rate Dysplasia of Women's Clinic Cervix (Primary Dx) [place] XXX RETIRED XXX [address] [place] [address] [address] [address] [place], [place] [phone] [address] (Work) [phone] Social History Tobacco Use Types Packs/Day Years [...] you attend restorationism or Patient refused 2021 buddhist services? 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 Path: High grade Squamous intraepithelial Lesion ( PEDRO 2 / moderate dysplasia ) at 7 o'clock Low grade Squamous intraepithelial lesion (condyloma/PEDRO 1 ) at 11 o'clock Plan is to do LEEP documented in this encounter Nursing Notes 04/17/2009 10:00 AM CDT >> MARCE Aguirre Apr 17, 2009 9:58 AM Patient presents with: Consult re:colp results. Marce Bazzi MA Initial BP 98/68 Wt 106 lb (48.081 kg) LMP 03/28/2009 Estimated Body mass index is 19.08 kg/(m^2) as calculated from: Height of 5' 2.5 (1.588 m) as of 09/04/08 Weight of 106 lb (48.081 kg) as of this encounter. BP completed using cuff size: regular documented in this encounter Plan of Treatment Not on filedocumented as of this encounter Visit Diagnoses Diagnosis Moderate dysplasia of cervix - Primary documented in this encounter Care Teams Rate Clerk Relationship Specialty Start Date End Date Adal Kincaid MD PCP - General 05/05/03 01/28/12 [address] [place] [address] documented as of this encounter
--- OUTSIDE RECORDS SUMMARY | 2022-06-06 21:08 | XMS_ITS | Encounter Summary ---
:1985 Author Organization [place] Address [facility] [place] [address] Care Team Providers Name Role Phone Adal Kincaid MD Primary Care Provider [phone] Reason for Visit Reason Comments Repeat Pap Smear Encounter Details Date Type Department Care Team Description 08/28/2009 Office Visit [facility] Marjorie Justice LSIL (L ow Grade Squamous Intraepithelial Lesion) on Pap Smear; [facility] SMD Screening Examination for Venereal Disea se; [place] XXX RETIRED XXX Mild Dysplasia of Cervix [address] [place] [address] [address] [address] [place], [place] [phone] [address] (Work) [phone] Social History Tobacco Use Types Packs/Day Years [...] you attend tenriism or Patient refused 2021 shinto services? Do [...] Reading Time Taken Comments Blood Pressure 98/68 08/28/2009 3:46 PM DIAMOND EXPERT Pulse - - Temperature - - Respiratory Rate - - Oxygen Saturation - - Inhaled Oxygen Concentration - - Weight 50.9 kg (112 lb 4.8 oz) 08/28/2009 3:46 PM DIAMOND EXPERT Height - - Body Mass Index 19.89 05/30/2009 10:01 AM DIAMOND EXPERT documented in this encounter Progress Notes Marjorie Justice - 08/28/2009 4:10 PM CST 24 y/o 0 here for Pap follow up after LEEP and she also requests STD testing. LMP 08/15/2009 Ext gen nl, vagina clean, cervix Clean, fundus ant, nl, adnexa no masses, rv confirms. Pap STD testing OND EXPERT documented in this encounter Nursing Notes 08/28/2009 3:30 PM CST >> MARCE Aguirre Aug 28, 2009 4:02 PM Patient presents with: Repeat Pap Smear and STD testing.Marce Bazzi MA Initial BP 98/68 Wt 112 lb 4.8 oz (50.939 kg) LMP 08/15/2009 Estimated Body mass index is 19.89 kg/(m^2) as calculated from: Height of 5' 3 (1.6 m) as of 05/30/09 Weight of 112 lb 4.8 oz (50.939 kg) as of this encounter. BP completed using cuff size: regular documented in this encounter Plan of Treatment Not on filedocumented as of this encounter Procedures Procedure Name Priority Date/Time Associated Diagnosis Comme nts HCL VIRAL CULTURE - Routine 08/28/2009 4:13 LSIL (Low Grade Re sults for this HERPES PM DIAMOND EXPERT Squamous procedure are i n Intraepithelial Lesion) the results on Pap Smear section. Screening Examination for Venereal Disease HCL WET PREP Routine 08/28/2009 4:13 LSIL (Low Grade Results f or this PM DIAMOND EXPERT Squamous procedure are i n Intraepithelial Lesion) the results on Pap Smear section. Screening Examination for Venereal Disease CL AFF Routine 08/28/2009 4:12 LSIL (Low Grade Results f or this N.GONORRHOEAE, DNA PM DIAMOND EXPERT Squamous procedure are in AMP PROBE Intraepithelial Lesion) the results on Pap Smear section. Screening Examination for Venereal Disease CL AFF CHLMYD Routine 08/28/2009 4:12 LSIL (Low Grade Results for this TRACH, DNA, AMP PM DIAMOND EXPERT Squamous procedure ar e in PROBE Intraepithelial Lesion) the results on Pap Smear section. Screening Examination for Venereal Disease HCL ANTI-TREPONEMIA Routine 08/28/2009 4:11 LSIL (Low Grade Re sults for this EIA PM DIAMOND EXPERT Squamous procedure are i n Intraepithelial Lesion) the results on Pap Smear section. Screening Examination for Venereal Disease HCL HIV 1 & 2 Routine 08/28/2009 4:11 LSIL (Low Grade Results for this ANTIBODY PM DIAMOND EXPERT Squamous procedure are i n Intraepithelial Lesion) the results on Pap Smear section. Screening Examination for Venereal Disease HCL HPV SCRN W/RFLX Routine 08/28/2009 12:00 Resu lts for this TO GENOTYPE AM DIAMOND EXPERT procedure are i n the results section. HCL PAP THIN LAYER Routine 08/28/2009 12:00 LSIL (Low Grade Re sults for this DIAGNOSTIC AM DIAMOND EXPERT Squamous procedure are i n Intraepithelial Lesion) the results on Pap Smear section. Screening Examination for Venereal Disease documented in this encounter Results VIRAL CULTURE - HERPES (08/28/2009 4:13 PM DIAMOND EXPERT) Aditazz Method Time Signature Specimen Type Vagina [facility] CMV Shell No virus [facility] Vial Cult isolated [facility] LABS Status FINAL [facility] Specimen Anatomical Collection Method Collection Time Receive d Time (Source) Location / / Volume Laterality 08/28/2009 4:13 PM 0 4:18 DIAMOND EXPERT PM DIAMOND EXPERT Marjorie Justice MD LABORATORY Performing Organization Address City/State/ZIP Code Phon e Number [facility] [address] [place] [address] [facility] A WET PREP (08/28/2009 4:13 PM DIAMOND EXPERT) Aditazz Method Time Signature Specimen Vagina [facility] Wet Prep No yeast seen [place] No Trichomonas seen [facility] No clue cells seen CLINIC LAB Report status FINAL [place] 08/28/2009 [facility] Specimen Anatomical Collection Method Collection Time Receive d Time (Source) Location / / Volume Laterality 08/28/2009 4:13 PM 0 4:18 DIAMOND EXPERT PM DIAMOND EXPERT Marjorie Justice MD LABORATORY Performing Organization Address City/State/ZIP Code Phon e Number [facility] [address] [place], [place] [address] [address] [facility] CHLMYD TRACH, DNA, AMP PROBE (08/28/2009 4:12 PM DIAMOND EXPERT) Component Value Ref Test Analysis Performed At [facility] Range Method Time Signature Specimen Vagina [facility] Chlamydia Negative for C. trachomatis rRNA by respooler mediated amplification. [facility] Trachomatis A negative result by transc ription mediated amplification does not preclude the [place] PCR presence of C. trachomatis infection because results are dependent on proper CAMPUS LABS and adequate collection, absence of inhibitors, and suffici ent rRNA to be detected. Specimen Anatomical Collection Method Collection Time Receive d Time (Source) Location / / Volume Laterality 08/28/2009 4:12 PM 0 4:17 DIAMOND EXPERT PM DIAMOND EXPERT Marjorie Justice MD LABORATORY Performing Organization Address City/State/ZIP Code Phon e Number [address] [address] [facility]S N.GONORRHOEAE, DNA, (GC) (08/28/2009 4:12 PM DIAMOND EXPERT) Component Value Ref Test Analysis Performed At [facility] Strap Range Method Time Signature Specimen Vagina [facility] N Gonorrhea Negative for N. gonorrhoeae rRNA by respooler mediated amplification. [facility] PCR A negative result by transc ription mediated amplification does not preclude the [place] presence of N. gonorrhoeae infection because re sults are dependent on proper CAMPUS LABS and adequate collection, absence of inhibitors, and suffici ent rRNA to be detected. Specimen Anatomical Collection Method Collection Time Receive d Time (Source) Location / / Volume Laterality 08/28/2009 4:12 PM 0 4:17 DIAMOND EXPERT PM DIAMOND EXPERT Marjorie Justice MD LABORATORY Performing Organization Address City/State/ZIP Code Phon e Number [facility] [address] [place] [address] [facility] ANTI-TREPONEMIA EIA (08/28/2009 4:11 PM DIAMOND EXPERT) Analysis Performed At Path logis Time Signature Treponema Negative NEG [facility] Specimen Anatomical Collection Method Collection Time Receive d Time (Source) Location / / Volume Laterality 08/28/2009 4:11 PM 0 4:16 DIAMOND EXPERT PM DIAMOND EXPERT Marjorie Justice MD LABORATORY Performing Organization Address City/[facility]/ZIP Code Phon e Number [facility] [address] [place] [address] [facility]S HIV 1 & 2, SCREEN (08/28/2009 4:11 PM DIAMOND EXPERT) Analysis Performed At [facility] Signature HIV 1&2 Negative NEG [facility] LABS Specimen Anatomical Collection Method Collection Time Receive d Time (Source) Location / / Volume Laterality 08/28/2009 4:11 PM 0 4:16 DIAMOND EXPERT PM DIAMOND EXPERT Marjorie Justice MD LABORATORY Performing Organization Address City/[facility]/ZIP Code Phon e Number [id number] [place] [address] LABS HPV SCRN W/RFLX TO GENOTYPE (08/28/2009 12:00 AM DIAMOND EXPERT) Component Value Ref Test Analysis Performed At [facility] Range Method Time Signature Copath Report Patient Name: MARCELINO DALEY MR#: [id number] Specimen #: [id number] Collected: 08/28/2009 00:00 Received: 08/31/2009 14:28 Reported: 09/04/2009 16:06 Ordering Phy(s): MARJORIE JUSTICE TEST(S) REQUESTED: A: Human Papillomavirus Screen Analysis B: Human Papillomavirus Molecular Genotyping Electrophoresis Analysis SPECIMEN DESCRIPTION: Cervical Cells CLINICAL COMMENTS: ICD-9: 795.03, V74.5 METHODOLOGY: ??Total cellular DNA was extracted from the abo ve specimen and up to 1 ug subjected to DNA amplification with a series of oligonucleotide primers directed to the L1 region of the hum an papillomavirus genome. ??The resulting PCR fragments were th arthur by capillary electrophoresis using a [employer] with [employer] software. ??The PCR products from samples positive [...] This patient's sample is positive for HPV 59 DNA. The presen ce of HPV 59 DNA in lesions of the anogenital tract [...] and its performance determined by lisa quan [facility] [place] ??[facility]. It has not been [...] Electronically Signed Out By: David Mccain MD, Physicians TESTING LAB LOCATION: [facility] [address] [facility] [address] [place] [address] COLLECTION SITE: Client: ??[facility] Location: ??RIOB (R) Specimen (Source) Anatomical Collection Method Collection Time Re ceived Time Location / / Volume Laterality 08/28/2009 08/31/2009 2:28 PM DIAMOND EXPERT Marjorie Justice MD LABORATORY Performing Organization Address City/State/ZIP Code Phon e Number COPATH (ABNORMAL) A THIN LAYER, DIAGNOSTIC PAP (08/28/2009 12:00 AM DIAMOND EXPERT) Component Value Ref Test Analysis Performed At [facility] Range Method Time Signature PAP LSIL (A) COPATH Copath Report COPATH Patient Name: MARCELINO DALEY MR#: [id number] Specimen #: [id number] Collected: 08/28/2009 Received: 08/30/2009 Reported: 08/31/2009 16:08 Ordering Phy(s): MARJORIE JUSTICE SPECIMEN/STAIN PROCESS: Pap thin layer prep diagnostic (SurePath) ? Pap-Cyto x 1, HPV ordered x 1 SOURCE: Cervical, endocervical ---- Pap thin layer prep diagnostic (SurePath) SPECIMEN ADEQUACY: Satisfactory for evaluation. CYTOLOGIC INTERPRETATION: Epithelial Cell Abnormality: ??Squamous Cell: ??Low-grade sq uamous intraepithelial lesion (LSIL) encompassing: ??HPV/ mild dysp lasia/ PEDRO 1. COMMENT: Case internally consulted. Electronically signed out by: Michele Fernandes M.D. Processed and screened at [facility] CLINICAL HISTORY: LMP: 08/15/09 Previous abnormal pap: lsil Date of Last Pap: 04/05/09, Cryotherapy, TESTING LAB LOCATION: [address] ??[address] COLLECTION SITE: Client: ??[facility] Location: RIOB (R) Specimen (Source) Anatomical Collection Method Collection Time Re ceived Time Location / / Volume Laterality 08/28/2009 08/30/2009 12:1 9 PM DIAMOND EXPERT Marjorie Justice MD LABORATORY Performing Organization Address City/State/ZIP Code Phon e Number [facility] documented in this encounter Visit Diagnoses Diagnosis LSIL (low grade squamous intraepithelial lesion) on Pap smear Papanicolaou smear of cervix with low gr nella squamous intraepithelial lesion (LGSIL) Screening examination for venereal disea se Mild dysplasia of cervix documented in this encounter Care Teams Cessation Systems Outreach Specialist Relationship Specialty Start Date End Date Adal Kincaid MD PCP - General 05/05/03 01/28/12 [address] [place] [address] documented as of this encounter
--- OUTSIDE RECORDS SUMMARY | 2022-06-06 21:08 | XMS_ITS | Encounter Summary ---
:1985 Author Organization [place] Address [facility] [place] [address] Care Team Providers Name Role Phone Adal Kincaid MD Primary Care Provider [phone] Encounter Details Date Type Department Care Team Description 03/03/2009 Telephone [facility] Womens Alecia Marks MD [facility] [address] [place] [address] [place] [address] [phone] Social History Tobacco Use Types Packs/Day Years [...] you attend lutheran or Patient refused 2021 confucianist services? Do you belong to any clubs [...] this encounter Miscellaneous Notes Telephone Encounter - Alecia Marks MD - 03/03/2009 10:47 AM CDT Called requesting refill; placed for patient. Has follow-up scheduled for 04/04. documented in this encounter Plan of Treatment Not on filedocumented as of this encounter Visit Diagnoses Diagnosis Contraception Unspecified contraceptive management documented in this encounter Care Teams Real Time Operator Relationship Specialty Start Date End Date Adal Kincaid MD PCP - General 05/05/03 01/28/12 [address] [place] [address] documented as of this encounter
--- OUTSIDE RECORDS SUMMARY | 2022-06-06 21:08 | XMS_ITS | Encounter Summary ---
:1985 Author Organization [place] Address [address] [place] [address]. [place] [address] Care Team Providers Name Role Phone Adal Kincaid MD Primary Care Provider [phone] Reason for Visit Reason Comments RECHECK f/u LEEP Encounter Details Date Type Department Care Team Description 05/03/2009 Office Visit [facility] Hector Melvin, Mode rate Dysplasia of Women's Clinic Cervix (Primary Dx) [place] XXX RETIRED XXX [address] [place], [place] [address] [address] [place], [place] [phone] [address] (Work) [phone] Social History Tobacco Use Types Packs/Day Years [...] Reading Time Taken Comments Blood Pressure 102/70 05/03/2009 9:12 AM CDT Pulse - - Temperature - - Respiratory Rate - - Oxygen Saturation - - Inhaled Oxygen Concentration - - Weight 47.4 kg (104 lb 6.4 oz) 05/03/2009 9:12 AM CDT Height - - Body Mass Index 18.79 09/04/2008 9:15 AM ELECTRICAL TESTER BATTERY documented in this encounter Progress Notes Hector Melvin - 05/04/2009 7:55 AM CDT Here to discuss path from LEEP procedure. Pt feeling fine Path: Moderate dysplasia with margins free. Follow with Visit in one month and Pap in 4 months. documented in this encounter Nursing Notes 05/03/2009 9:00 AM CDT >> ELIZABETH Segundo May 03, 2009 9:14 AM .Patient presents with: RECHECK - f/u LEEP Intial BP 102/70 Wt 104 lb 6.4 oz (47.356 kg) LMP 04/25/2009 Estimated Body mass index is 18.79kg/(m^2) as calculated from: Height of 5' 2.5 (1.588 m) as of 09/04/08 Weight of 104 lb 6.4 oz (47.356 kg) as of this encounter BP completed using cuff size: regular. Elizabeth Lerner MA documented in this encounter Plan of Treatment Not on filedocumented as of this encounter Visit Diagnoses Diagnosis Moderate dysplasia of cervix - Primary documented in this encounter Care Teams Fund Director Relationship Specialty Start Date End Date Adal Kincaid MD PCP - General 05/05/03 01/28/[address] [place] [address] documented as of this encounter
--- OUTSIDE RECORDS SUMMARY | 2022-06-06 21:08 | XMS_ITS | Encounter Summary ---
:1985 Author Organization [facility] Address [address] [place] [address]. [place] [address] Care Team Providers Name Role Phone Adal Kincaid MD Primary Care Provider [phone] Reason for Visit Reason Comments Urinary Problem Encounter Details Date Type Department Care Team Description 02/18/2010 Allied Health/Nurse Health [facility] Urinary Problem Visit [place] [address] [place] [address] Social History Tobacco Use [...] you attend congregational or Patient refused 2021 baptist services? Do [...] documented as of this encounter Progress Notes Hector Justice S - 02/18/2010 3:45 PM CDT Addended by: HECTOR JUSTICE on: 02/18/2010 Modules accepted: Orders documented in this encounter Nursing Notes 02/18/2010 1:30 PM CDT >> MARCE Chu Feb 18, 2010 1:45 PM Pt c/o urinary frequency and pressure. Marce Bazzi MA documented in this encounter Plan of Treatment Not on filedocumented as of this encounter Procedures Procedure Name Priority Date/Time Associated Diagnosis Comme nts HCL CULTURE, URINE Routine 02/18/2010 2:08 PM Frequency of Res ults for this CDT Urination and procedure are in Polyuria the results section. HCL UA MICRO IF Routine 02/18/2010 2:07 PM Frequency of Result s for this POSITIVE CDT Urination and procedure are in Polyuria the results section. CL AFF MICRO Routine 02/18/2010 2:07 PM Results f or this EXAM-URINE CDT procedure are i n the results section. documented in this encounter Results URINE CULTURE (02/18/2010 2:08 PM CDT) [facility] Method Time Signature Specimen Midstream Urine [facility] LAB Culture Micro >100,000 [place] colonies/mL [facility] LAB coli Micro Report FINAL [place] Status 02/19/2010 [facility] Specimen Anatomical Collection Method Collection Time Receive d Time (Source) Location / / Volume Laterality 02/18/2010 2:08 PM 0 2:13 CDT PM CDT Organism Antibiotic Method Susceptibility >100,000 colonies/ml Ampicillin <=2 Suscept ible escherichia coli (enzo) >100,000 colonies/ml Cefazolin <=4 Suscept ible escherichia coli (enzo) >100,000 colonies/ml Cefoxitin <=4 Suscept ible escherichia coli (enzo) >100,000 colonies/ml Ceftriaxone <=1 Suscept ible escherichia coli (enzo) >100,000 colonies/ml Ciprofloxacin 0.5 Suscept ible escherichia coli (enzo) >100,000 colonies/ml Gentamicin <=1 [...] <=4 Susce ptible escherichia coli (enzo) Hector Justice MD LABORATORY Performing Organization Address City/State/ZIP Code Phon e Number [facility] [address] [place] [address] [facility] (ABNORMAL) MICRO EXAM-URINE (02/18/2010 2:07 PM CDT) Analysis Performed At Patho logist Time Signature WBC Urine >100 (A) 0 - 2 /HPF [facility] RBC Urine 2-5 (A) 0 - 2 /HPF [facility] Squamous Few FEW /LPF [place] Epithelial /LPF [facility] Urine LAB Bacteria Urine Many (A) NEG /HPF [facility] Specimen Anatomical Collection Method Collection Time Receive d Time (Source) Location / / Volume Laterality 02/18/2010 2:07 PM 0 2:12 CDT PM CDT Hector Justice MD LABORATORY Performing Organization Address City/[facility]/ZIP Code Phon e Number [facility] [address] [place], [place] [address] [address] [facility] (ABNORMAL) UA MICRO IF POSITIVE (02/18/2010 2:07 PM CDT) Patholo gist Method Time Signature Color Urine Yellow [facility] Appearance Urine Slightly [place] Cloudy [facility] Glucose Urine Negative NEG mg/dL [facility] Bilirubin Urine Negative NEG [facility] Ketones Urine Trace (A) NEG mg/dL [facility] Specific [place] 1.025 1.003 - [place] Urine 1.035 [facility] Blood Urine Trace (A) NEG [facility] pH Urine 5.5 5.0 - 7.0 [place] pH [facility] Protein Albumin 100 (A) NEG mg/dL [place] Urine [facility] Urobilinogen 0.2 0.2 - 1.0 [place] Urine EU/dL [facility] Nitrite Urine Positive (A) NEG [facility] Leukocyte Small (A) NEG [place] Esterase Urine [facility] Source Midstream [facility] LAB Specimen Anatomical Collection Method Collection Time Receive d Time (Source) Location / / Volume Laterality 02/18/2010 2:07 PM 0 2:12 CDT PM CDT Hector Justice MD LABORATORY Performing Organization Address City/State/ZIP Code Phon e Number [facility] [address] [place], [place] [address] [address] [facility] documented in this encounter Visit Diagnoses Diagnosis Frequency of urination and polyuria - Pr imary Urinary frequency documented in this encounter Care Teams Blue Line Hanger Relationship Specialty Start Date End Date Adal Kincaid MD PCP - General 05/05/03 01/28/12 [address] [place] [address] documented as of this encounter
--- OUTSIDE RECORDS SUMMARY | 2022-06-06 21:08 | XMS_ITS | Encounter Summary ---
:1985 Author Organization [facility] Address [address] [place] [address]. [place] [address] Care Team Providers Name Role Phone Adal Kincaid MD Primary Care Provider [phone] Reason for Visit Reason Comments Consult leep procedure 04/04, LSIL Pa p Encounter Details Date Type Department Care Team Description 10/01/2009 Office Visit [facility] Hector Melvin LSIL (L ow [facility] Lázaro Carbone MD Intraepithelial Lesion) [place] XXX RETIRED XXX on Pap Smear (Primary [address] Dx) [place] [phone] Social History Tobacco Use Types Packs/Day [...] you attend yazdanism or Patient refused 2021 mandaeism services? Do [...] Sign Reading Time Taken Comments Blood Pressure 94/60 10/01/2009 1:17 PM FEDERAL JUDICIAL LAW CLERK Pulse - - Temperature - - Respiratory Rate - - Oxygen Saturation - - Inhaled Oxygen Concentration - - Weight 51.7 kg (114 lb) 10/01/2009 1:17 PM FEDERAL JUDICIAL LAW CLERK Height 158.8 cm (5' 2.5) 10/01/2009 1:17 PM FEDERAL JUDICIAL LAW CLERK Body Mass Index 20.52 10/01/2009 1:17 PM FEDERAL JUDICIAL LAW CLERK documented in this encounter Progress Notes Hector Melvin - 10/01/2009 2:11 PM CST Here to discuss her persisting LSIL Pap smears Will ask Dr Guzman for opinion RAL JUDICIAL LAW CLERK documented in this encounter Nursing Notes 10/01/2009 1:15 PM CST >> JONE HUNT Mon Oct 01, 2009 1:22 PM Patient presents with: Consult - leep procedure 04/04, LSIL Pap No results found for this or any previous visit.] Last colonoscopy, men and women age 50 and older every ten years (when and where): Last flex sig, men and women age 50 and older every five years (when and where): PAP LSIL 08/28/2009 Women 21-64 years of age seen 07/27-07/26 must have pap at least every 3 years. if no Pap in system (when and where): Last Mammo NA Females age 40 and older must have every year, (when and where): Last GC/Chlamydia 08/2009 Females 16-24 years old (sexually active) must have every 365 days Tdap done on Immunization Status Reviewed: up to date and documented If studies done outside of [facility], have pt sign ESTEFANIA. Pend orders for studies not done. Initial BP 94/60 Ht 5' 2.5 (1.588 m) Wt 114 lb (51.71 kg) Estimated Body mass index is 20.52 kg/(m^2) as calculated from the following: Height as of this encounter: 5' 2.5(1.588 m). Weight as of this encounter: 114 lb(51.71 kg).. 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
--- OUTSIDE RECORDS SUMMARY | 2022-06-06 21:08 | XMS_ITS | Encounter Summary ---
:1985 Author Organization [facility] Address [address] [place] [address]. [place] [address] Care Team Providers Name Role Phone Adal Kincaid MD Primary Care Provider [phone] Reason for Visit Reason Onset Date Comments Refill Request 12/14/2009 Encounter Details Date Type Department Care Team Description 12/14/[address] [facility] Alecia MD Refill Request Clinic [address] [place] [address] [place] [address] [phone] Social History Tobacco Use Types Packs/Day Years [...] you attend shinto or Patient refused 2021 sikh services? Do [...] this encounter Miscellaneous Notes Telephone Encounter - Stephanie Collins - 12/14/2009 4:40 PM CDT Fax received from pharmacy PAP LSIL 08/28/2009 documented in this encounter Plan of Treatment Not on filedocumented as of this encounter Visit Diagnoses Diagnosis Contraception - Primary Unspecified contraceptive management documented in this encounter Care Teams Marine Fuel Dock Attendant Relationship Specialty Start Date End Date Adal Kincaid MD PCP - General 05/05/03 01/28/12 [address] [place] [address] documented as of this encounter
--- OUTSIDE RECORDS SUMMARY | 2022-06-06 21:08 | XMS_ITS | Encounter Summary ---
:1985 Author Organization [facility] Address [address] [place] [address]. [place] [address] Care Team Providers Name Role Phone Adal Kincaid MD Primary Care Provider [phone] Reason for Visit Reason Onset Date Comments Results 04/18/2009 Insurance Encounter Details Date Type Department Care Team Description 04/18/2009 Telephone [facility] Hector Melvin, Results (Insurance) [place] Kaye ROLLINS [address] XXX RETIRED XXX [place], [place] [address] [address] [place], [place] [phone] (Wo rk) Social History Tobacco Use [...] you attend spiritism or Patient refused 2021 latter-day services? Do [...] Notes Telephone Encounter - Marce Bazzi - 04/18/2009 1:23 PM CDT Appt made for 04/24/09 for LEEP (pt aware), pt will still have insurance at that time. Marce Bazzi MA Telephone Encounter - Debbie Verdugo - 04/18/2009 9:29 AM CDT Left message to call back on Home number.Terrence Verdugo RN (Pt has no insurance and is scheduled for A LEEP.) Ask patient if she has checked with her former employer to see if she can get [employer] insurance coverage? I did check with our insurance rep. At [facility] and she said pt could call Charlene Blackmon with [facility] at [phone] to see if she would qualify for any assistance for paying for the LEEP. In order to qualify you have to have no insurance and be denied [place] assistance. There areother qualifications that Charlene would inform pt of. Andreas Verdugo RN documented in this encounter Plan of Treatment Not on filedocumented as of this encounter Visit Diagnoses Not on filedocumented in this encounter Care Teams Greens Laborer Relationship Specialty Start Date End Date Adal Kincaid MD PCP - General 05/05/03 01/28/12 [address] [place] [address] documented as of this encounter
--- OUTSIDE RECORDS SUMMARY | 2022-06-06 21:08 | XMS_ITS | Encounter Summary ---
:1985 Author Organization [facility] Address [address] [place] [address]. [place] [address] Care Team Providers Name Role Phone Adal Kincaid MD Primary Care Provider [phone] Reason for Visit Reason Comments Consult Patient here for consult col p done on 02-23,cryo on 04-05-08 and last pap 08-01-08 was abnormal LISL Encounter Details Date Type Department Care Team Description 09/04/2008 Office Visit [facility] Hector Melvin, Mild Dysplasia of [facility] Cervix (Primary Dx) [place] XXX RETIRED XXX [address] [phone] Social History Tobacco Use Types Packs/Day Years [...] you attend amish or Patient refused 2021 roman catholic services? [...] Sign Reading Time Taken Comments Blood Pressure 98/56 09/04/2008 9:15 AM SCANNING CLERK Pulse - - Temperature - - Respiratory Rate - - Oxygen Saturation - - Inhaled Oxygen Concentration - - Weight 46.7 kg (103 lb) 09/04/2008 9:15 AM SCANNING CLERK Height 158.8 cm (5' 2.5) 09/04/2008 9:15 AM SCANNING CLERK Body Mass Index 18.54 09/04/2008 9:15 AM SCANNING CLERK documented in this encounter Progress Notes Hector Melvin - 11/23/2008 5:47 PM CDT No charge to patient for this visit. Hector Melvin - 09/04/2008 11:35 AM CST Here to discuss her Pap smear which was LSIL after cryo for mild dysplasia Talked about scanning cervix and if appears normal to do cryo again or to do a LEEP. Pt prefers to repeat the cryo and if that fails then consider LEEP Will scan and cryo if no biopsies taken. NING CLERK documented in this encounter Nursing Notes 09/04/2008 9:15 AM CST >> JONE HUNT Mon Sep 04, 2008 9:43 AM Patient presents with: Consult - Patient here for consult colp done on 02-23,cryo on 04-05-08 and last pap 08-01-08 was abnormal LISL Initial Ht 5' 2.5 (1.588 m) Wt 103 lb (46.72 kg) LMP 08/17/2008 Body mass index is 18.54 kg/(m^2).. BP completed using cuff size: regular Wilfred Hunt LPN documented in this encounter Plan of Treatment Not on filedocumented as of this encounter Visit Diagnoses Diagnosis Mild dysplasia of cervix - Primary documented in this encounter Care Teams Aquarist Relationship Specialty Start Date End Date Adal Kincaid MD PCP - General 05/05/03 01/28/12 [address] [place] [address] documented as of this encounter
--- OUTSIDE RECORDS SUMMARY | 2022-06-06 21:08 | XMS_ITS | Encounter Summary ---
:1985 Author Organization [facility] Address [address] [place], [place] [address]. [place] [address] Care Team Providers Name Role Phone Adal Kincaid MD Primary Care Provider [phone] Reason for Visit Reason Comments RECHECK Encounter Details Date Type Department Care Team Description 07/03/2009 Office Visit [facility] Hector Melvin S, Mode rate Dysplasia of [facility] Cervix (Primary Dx) [place] XXX RETIRED XXX [address] [place] [address] [place] [address] [address] [address] [place], [place] [phone] [address] (Work) [phone] Social History Tobacco Use Types Packs/Day Years [...] you attend orthodoxy or Patient refused 2021 presybeterian services? Do [...] Sign Reading Time Taken Comments Blood Pressure 100/62 07/03/2009 11:04 AM VEGETABLES COOK Pulse - - Temperature - - Respiratory Rate - - Oxygen Saturation - - Inhaled Oxygen Concentration - - Weight 48.4 kg (106 lb 9.6 oz) 07/03/2009 11:04 AM VEGETABLES COOK Height - - Body Mass Index 18.88 05/30/2009 10:01 AM VEGETABLES COOK documented in this encounter Progress Notes Hector Melvin - 07/03/2009 11:37 AM CST 2 months post LEEP Feeling fine Cervix healed Will repeat Pap 4 months post LEEP TABLES COOK documented in this encounter Plan of Treatment Not on filedocumented as of this encounter Visit Diagnoses Diagnosis Moderate dysplasia of cervix - Primary documented in this encounter Care Teams Systems Eng Relationship Specialty Start Date End Date Adal Kincaid MD PCP - General 05/05/03 01/28/12 [address] [place] [address] documented as of this encounter
--- OUTSIDE RECORDS SUMMARY | 2022-06-06 21:08 | XMS_ITS | Encounter Summary ---
:1985 Author Organization [facility] Address [address] [place] [address]. [place] [address] Care Team Providers Name Role Phone Adal Kincaid MD Primary Care Provider [phone] Reason for Visit Reason Onset Date Comments Refill Request 11/20/2008 tri-sprintec Encounter Details Date Type Department Care Team Description 11/20/2008 Refill [facility] Adal Kincaid Refill Request Clinic Cezar Moreira MD (tri-sprintec) [address] [place] [address] [address] [place], [place] [phone] (Wo rk) [address] [phone] Social History Tobacco Use Types Packs/Day Years [...] you attend islam or Patient refused 2021 latter-day services? Do [...] encounter Miscellaneous Notes Telephone Encounter - Jennifer Saunders - 11/20/2008 3:51 PM CDT Faxed rx refill request for Tri-Sprintec. Last pap and pe done by Dr Kincaid was on 02/15/08. Most recent pap done by Dr Melvin on 08/01/08. Only able to give one fill, as MD visit will be due in January. documented in this encounter Plan of Treatment Not on filedocumented as of this encounter Visit Diagnoses Diagnosis Contraception Unspecified contraceptive management documented in this encounter Care Teams Critical Care Nurse Relationship Specialty Start Date End Date Adal Kincaid MD PCP - General 05/05/03 01/28/12 [address] [place] [address] documented as of this encounter
--- OUTSIDE RECORDS SUMMARY | 2022-06-06 21:08 | XMS_ITS | Encounter Summary ---
:1985 Author Organization [facility] Address [address] [place] [address]. [place] [address] Care Team Providers Name Role Phone Adal Kincaid MD Primary Care Provider [phone] Reason for Visit Reason Onset Date Comments Medication Request 04/20/2009 Encounter Details Date Type Department Care Team Description 04/20/2009 Telephone [facility] Lori Melvin MD Medication Request [facility] XXX RETIRED XXX [place] [address] [place] [address] [address] [place], [place] [address] [address] [place], [place] [phone] (Wo rk) [address] [phone] Social History Tobacco Use Types Packs/Day Years [...] you attend islam or Patient refused 2021 spiritism services? Do [...] Notes Telephone Encounter - Mervat Antunez - 04/23/2009 9:05 AM CDT Pt advised. Mervat Antunez RN Telephone Encounter - Mervat Antunez - 04/23/2009 8:37 AM CDT Left message to call back at contact numer. Mervat Antunez RN Telephone Encounter - Hector Melvin - 04/23/2009 7:31 AM CDT Notify pt rx at pharmacy Telephone Encounter - Mervat Antunez - 04/20/2009 3:36 PM CDT Pt having LEEP on Thursday and pt is requesting medication for anxiety to take prior to procedure. Mervat Antunez RN documented in this encounter Plan of Treatment Not on filedocumented as of this encounter Visit Diagnoses Diagnosis Anxiety - Primary Anxiety state, unspecified documented in this encounter Care Teams Hardwood Flooring Specialist Relationship Specialty Start Date End Date Adal Kincaid MD PCP - General 05/05/03 01/28/12 [address] [place] [address] documented as of this encounter
--- OUTSIDE RECORDS SUMMARY | 2022-06-06 21:08 | XMS_ITS | Encounter Summary ---
:1985 Author Organization [place] Address Count includes the [facility] [place] [address] Care Team Providers Name Role Phone Adal Kincaid MD Primary Care Provider [phone] Reason for Visit Reason Comments Consult Encounter Details Date Type Department Care Team Description 04/10/[address] [facility] Hector Justice LGSI L on Pap Smear [facility] (Primary Dx) [place] XXX RETIRED XXX [address] [place] [address] [address] [address] [place], [place] [phone] [address] (Work) [phone] Social History Tobacco Use Types Packs/Day Years [...] you attend amish or Patient refused 2021 pentecostalism services? Do you belong to any clubs [...] Reading Time Taken Comments Blood Pressure 100/64 04/10/2009 10:17 AM CDT Pulse - - Temperature - - Respiratory Rate - - Oxygen Saturation - - Inhaled Oxygen Concentration - - Weight 48.3 kg (106 lb 6.4 oz) 04/10/2009 10:17 AM CDT Height - - Body Mass Index 19.15 09/04/2008 9:15 AM CLINICAL PRODUCT SPECIALIST documented in this encounter Progress Notes Hector Justice - 04/10/2009 11:13 AM CDT Informed Consent signed: Verbal INDICATION: Persisting LSIL Pap Patient's last menstrual period was 03/28/2009. G 0 Previous paps: abnormal Previous Biopsy?:yes Previous Cryo?: yes Previous LEEP?: no Previous Laser?: yes COLPOSCOPIC EXAM: No Mosaic, No WHITE AREAS, No STIPPLING, LUGOL'S small non staining area at Examined without staining?: yes Examined with Acetic Acid staining?: yes Examined with Lugol's Iodine staining?: yes Biopsies7,11,3,ECC Colposcopic Impression:Doubt dysplasia Post Colposcopy Instructions given?: yes F/U visit scheduled for one week documented in this encounter Nursing Notes 04/10/2009 10:15 AM CDT >> MARCE Aguirre Apr 10, 2009 10:18 AM Patient presents with: Consult re: pap results.Marce Bazzi MA Initial BP 100/64 Wt 106 lb 6.4 oz (48.263 kg) LMP 03/28/2009 Estimated Body mass index is 19.15kg/(m^2) as calculated from: Height of 5' 2.5 (1.588 m) as of 09/04/08 Weight of 106 lb 6.4 oz (48.263 kg) as of this encounter. BP completed using cuff size: regular documented in this encounter Plan of Treatment Not on filedocumented as of this encounter Procedures Procedure Name Priority Date/Time Associated Diagnosis Comme nts HC COLP Routine 04/25/2009 11:24 AM LGSIL on Pap Smear CERVIX/UPPER VAGINA CDT W LOOP ELEC BX CERVIX CL AFF SURGICAL Routine 04/10/2009 12:00 AM LGSIL on Pap Smear Results for this PATHOLOGY CDT procedure are i n the results section. documented in this encounter Results SURGICAL PATHOLOGY (04/10/2009 12:00 AM CDT) Component Value Ref Test Analysis Performed At [facility] Range Method Time Signature Copath Report Patient Name: MARCELINO DALEY MR#: [id number] Specimen #: [id number] Collected: 04/10/2009 Received: 04/11/2009 Reported: 04/12/2009 14:04 Ordering Phy(s): HECTOR JUSTICE SPECIMEN(S): A: Cervical biopsy, 3 o'clock B: Cervical biopsy, 7 o'clock C: Cervical biopsy, 11 o'clock D: Endocervical curettings FINAL DIAGNOSIS: A. ??Cervix, 3:00, biopsy - 1. ?Ectocervix and endocervix present. 2. ? Changes of previous biopsy site. 3. ? No evidence of viral changes, dysplasia or malignan cy. B. ??Cervix, 7:00, biopsy - 1. ?Ectocervix, transformation zone and endocer vix present. 2. ? High grade squamous intraepithelial lesion (PEDRO-2/m oderate dysplasia). C. ??Cervix, 11:00, biopsy - 1. ?Ectocervix and endocervix present. 2. ? Low grade squamous intraepithelial lesion (condylom a/PEDRO-1). D. ??Endocervix, curettings - 1. ?Limited by scant tissue. 2. ? Endocervical glands present. 3. ? No evidence of viral changes, dysplasia or malignan cy. COMMENT: Previous Pap. smear ([id number]) was positive for low grade s quamous intraepithelial lesion. ??The Pap. smear was reviewed and th e abnormalities were confirmed. Electronically signed out by: Dominick Segura M.D. CLINICAL HISTORY: LSIL Pap. GROSS: A. ??The specimen, labeled cervical biopsy at 3 o'clock, c onsists of a fragment of soft leal tissue measuring 0.3 cm in diameter. ?? The specimen is bisected and submitted in its entirety. B. ??The specimen, labeled cervical biopsy at 7 o'clock, c onsists of a fragment of soft leal tissue measuring 0.5 cm in diameter. ?? The specimen is serially sectioned and submitted in its entirety. C. ??The specimen, labeled cervical biopsy at 11 o'clock, consists of a single fragment of soft leal tissue measuring 0.[address] ??The specimen is bisected and submitted in its entirety. D. ??The specimen, labeled endocervical curettings, consis ts of a few fragments of translucent mucoid tissue measuring 0.2 cm in a ggregate. The specimen is submitted in its entirety. ??MGP/sg MICROSCOPIC: A, B, C and D. ??Microscopic examination was performed. MGP/kd 04-12-09 TESTING LAB LOCATION: [facility] [address] [place], [place] ??[address] COLLECTION SITE: Client: [facility] Location: RIOB (R) Specimen (Source) Anatomical Collection Method Collection Time Re ceived Time Location / / Volume Laterality 04/10/2009 04/11/2009 7:51 AM CDT Hector Justice MD LABORATORY Performing Organization Address City/State/ZIP Code Phon e Number [place] documented in this encounter Visit Diagnoses Diagnosis Papanicolaou smear of cervix with low gr nella squamous intraepithelial lesion (LGSIL) - Primary documented in this encounter Care Teams Gum Worker Relationship Specialty Start Date End Date Adal Kincaid MD PCP - General 05/05/03 01/28/12 [address] [place] [address] documented as of this encounter
--- OUTSIDE RECORDS SUMMARY | 2022-06-06 21:08 | XMS_ITS | Encounter Summary ---
:1985 Author Organization [place] Address [facility] [place] [place] [address] Care Team Providers Name Role Phone Adal Kincaid MD Primary Care Provider [phone] Reason for Referral Referral not Required - Closed Specialty Diagnoses / Procedures Referred By Contact Refer red To Contact Diagnoses Abnormal Pap smear Hector Melvin MD [facility] XXX RETIRED XXX HEMATOLOGY [address] [address] [place] [address] Phone: [phone] Fax: Referral ID Status Reason Start Date Expiration Date Visits Requ ested Visits Authorized [id number] Closed 11/02/2009 07/26/2011 1 1 Reason for Visit Reason Onset Date Comments Referral 11/02/2009 referral Encounter Details Date Type Department Care Team Description 11/02/2009 Telephone [facility] Hector Melvin Refe rral ( [facility] referral) [place] XXX RETIRED XXX [address] [place] [address] [address] [phone] (Wo rk) Social History Tobacco Use Types [...] you attend sabianism or Patient refused 2021 mormonism services? Do [...] this encounter Miscellaneous Notes Telephone Encounter - VerdugoDebbie - 11/02/2009 12:48 PM CDT Pt advised of message below. She was given phone number to 's office and she will call themto schedule appointment. Records faxed to 's Office. Andreas Verdugo RN Telephone Encounter - Kartik Debbie - 11/02/2009 11:08 AM CDT Left message to call back on Home number.Terrence Verdugo RN Please advise pt that finally talked to 's office ( had been on vacation) and they advised pt be seen by . Give pt 's phone number to call and schedule appt. Referral has been done, fax over records once we talk to pt. Andreas Verdugo RN documented in this encounter Plan of Treatment Not on filedocumented as of this encounter Procedures Procedure Name Priority Date/Time Associated Diagnosis Comme nts ZZ CONSULT ONCOLOGY/HEMATOLOGY Routine 12/13/2009 Abnorma l Pap Smear documented in this encounter Results CONSULT ONCOLOGY/HEMATOLOGY (12/13/2009) Narrative This result has an attachment that is no t available. Hector Melvin MD REFERRAL documented in this encounter Visit Diagnoses Diagnosis Abnormal Pap smear - Primary Other nonspecific abnormal finding documented in this encounter Care Teams Cherry Picker Operator Relationship Specialty Start Date End Date Adal Kincaid MD PCP - General 05/05/03 01/28/12 [address] [place] [address] documented as of this encounter
--- OUTSIDE RECORDS SUMMARY | 2022-06-06 21:08 | XMS_ITS | Encounter Summary ---
:1985 Author Organization [place] Address [facility] [place] [address] Care Team Providers Name Role Phone Adal Kincaid MD Primary Care Provider [phone] Reason for Visit Reason Comments Diarrhea was recently in [place], has had since home Pharyngitis x2 days Encounter Details Date Type Department Care Team Description 05/30/2009 Office Visit [facility] Rajwinder Hernandez Pharyng itis (Primary Dx); [facility] [place] DEMARCUS Brothers Traveler's Diarrhea [address] [place], [place] [address] [facility] [address] [place] [address] [place] [address] Social History Tobacco Use Types Packs/Day Years [...] you attend judaism or Patient refused 2021 uatsdin services? Do [...] Sign Reading Time Taken Comments Blood Pressure 116/68 05/30/2009 10:01 AM TARP REPAIRER Pulse 70 05/30/2009 10:01 AM TARP REPAIRER Temperature 36.9 ??C (98.4 ??F) 05/30/2009 10:01 AM TARP REPAIRER Respiratory Rate - - Oxygen Saturation 99% 05/30/2009 10:01 AM TARP REPAIRER Inhaled Oxygen Concentration - - Weight 47.6 kg (105 lb) 05/30/2009 10:01 AM TARP REPAIRER Height 160 cm (5' 3) 05/30/2009 10:01 AM TARP REPAIRER Body Mass Index 18.6 05/30/2009 10:01 AM TARP REPAIRER documented in this encounter Progress Notes Lashae Rajwinder J - 05/31/2009 9:03 AM CST CC: Pharyngitis [462Y] Traveler's Diarrhea [009.2C] Pt recently returned from [place]. Pt has roughly 4-5 episodes of diarrhea following any intake of food for the last 4 days. Pt denies abdominal pain, blood in stool, UTI ssx or fever. Pt also has noticed a ST for 2 days. Exam: Constitutional: healthy, alert and no distress Head: Normocephalic. No masses, lesions, tenderness or abnormalities Neck: Neck supple. No adenopathy. Thyroid symmetric, normal size,, Carotids without bruits. ENT: ENT exam normal, no neck nodes or sinus tenderness Cardiovascular: negative, PMI normal. No lifts, heaves, or thrills. RRR. No murmurs, clicks gallops or rub Respiratory: negative, Percussion normal. Good diaphragmatic excursion. Lungs clear Gastrointestinal: Abdomen soft, non-tender. BS hyperactive. No masses, organomegaly : Deferred Musculoskeletal: extremities normal- no gross deformities noted, gait normal and normal muscle tone Skin: no suspicious lesions or rashes Neurologic: Gait normal. Reflexes normal and symmetric. Sensation grossly WNL. Psychiatric: mentation appears normal. and affect normal/bright Hematologic/Lymphatic/Immunologic: normal ant/post cervical, axillary, supraclavicular and inguinal nodes I/P: Traveler's Diarrhea [009.2C] - push fluids, abx x 10 days, f/u if ssx do not improve Pharyngitis [462Y] - viral pharyngitis, push fluids, rest REPAIRER documented in this encounter Nursing Notes 05/30/2009 10:00 AM CST >> JOHANNY DIAZ Wed May 30, 2009 10:04 AM Patient presents with: Diarrhea - was recently in [place], has had since home Pharyngitis - x2 days Initial BP 116/68 Pulse 70 Temp 98.4 ??F (36.9 ??C) Ht 5' 3 (1.6 m) Wt 105 lb (47.628 kg) SpO2 99% Body mass index is 18.60 kg/(m^2).. BP completed using cuff size: regular HEALTH MAINTENANCE REVIEWED WITH PT Johanny Diaz CMA documented in this encounter Plan of Treatment Not on filedocumented as of this encounter Procedures Procedure Name Priority Date/Time Associated Diagnosis Comme nts HCL STREP GROUP A Routine 05/30/2009 10:14 AM Pharyngitis Res ults for this ANTIGEN (RAPID) TARP REPAIRER procedure ar e in the results section. HCL BETA STREP Routine 05/30/2009 10:14 AM Pharyngitis Result s for this CONFIRM TARP REPAIRER procedure are i n the results section. documented in this encounter Results BETA STREP CONFIRM (05/30/2009 10:14 AM TARP REPAIRER) Component Value Ref Test Analysis Performed At [facility] Range Method Time Signature Specimen Throat ROSCOE Description [facility] Culture Micro No Beta ROSCOE Streptococcus [facility] isolated CLINIC LAB Report status FINAL 06/01/2009 [facility] Specimen Anatomical Collection Method Collection Time Receive d Time (Source) Location / / Volume Laterality 05/30/2009 10:14 05/30/2009 AM TARP REPAIRER 10:15 AM TARP REPAIRER Kerri Reyes MD LABORATORY Performing Organization Address City/State/ZIP Code Phon e Number [facility] [id number] [place], [place] [phone] [facility] STREP GROUP A ANTIGEN (RAPID) (05/30/2009 10:14 AM TARP REPAIRER) Component Value Ref Test Analysis Performed At [facility] Range Method Time Signature Specimen Throat ROSCOE Description [facility] Rapid Strep A NEGATIVE: No Group A strepto coccal antigen detected by immunoassay, await ROSCOE Screen culture report. [facility] Report status FINAL 05/30/2009 [facility] Specimen Anatomical Collection Method Collection Time Receive d Time (Source) Location / / Volume Laterality 05/30/2009 10:14 05/30/2009 AM TARP REPAIRER 10:15 AM TARP REPAIRER Rajwinder Hernandez PA-C LABORATORY Performing Organization Address City/State/ZIP Code Phon e Number [facility] [address] [place] [address] [facility] documented in this encounter Visit Diagnoses Diagnosis Pharyngitis - Primary Acute pharyngitis Traveler's diarrhea Infectious diarrhea documented in this encounter Care Teams Purification Operator Helper Relationship Specialty Start Date End Date Adal Kincaid MD PCP - General 05/05/03 01/28/12 [address] [place] [address] documented as of this encounter
--- OUTSIDE RECORDS SUMMARY | 2022-06-06 21:08 | XMS_ITS | Encounter Summary ---
:1985 Author Organization [place] Address [facility] [place] [address] Care Team Providers Name Role Phone Adal Kincaid MD Primary Care Provider [phone] Reason for Visit Reason Comments Breast Exam c/o area on upper right joe st area that is tender. Encounter Details Date Type Department Care Team Description 06/06/2008 Office Visit [facility] Inocencia Robledo Fibrocyst ic Breast Clinic Cezar Mercado MD Disease (Primary Dx) [address] [address] [place] [address] [place], [place] [phone] (Wo rk) [address] [phone] Social History Tobacco Use Types Packs/Day Years [...] you attend tenriism or Patient refused 2021 pentecostal services? Do [...] Sign Reading Time Taken Comments Blood Pressure 122/58 06/06/2008 1:30 PM FOSTER PARENT Pulse 58 06/06/2008 1:30 PM FOSTER PARENT Temperature - - Respiratory Rate - - Oxygen Saturation - - Inhaled Oxygen Concentration - - Weight 49.9 kg (110 lb) 06/06/2008 1:30 PM FOSTER PARENT Height - - Body Mass Index 19.49 02/15/2008 8:00 AM CDT documented in this encounter Progress Notes Inocencia Robledo - 06/06/2008 1:42 PM CST Chief Complaint Patient presents with ??? Breast Exam c/o area on upper right breast area that is tender. Pt of Dr. Kincaid ([facility]) SUBJECTIVE: Tameka Grissom is a 23 year old female who presents with right sided breast concern. She has fibrocystic breasts; no nipple discharge; US and mammo done 05/2003 - reviewed. She is on OCP, menses 9 days ago PSH: Breast biopy on the right age 12- cyst FH Breast cancer: Paternal aunt- OBJECTIVE: BP 122/58 Pulse 58 Wt 110 lb (49.896 kg) LMP 05/24/2008 General: pleasant, alert female; no acute distress Breasts: bilateral fibrocystic changes; right sided prominent fibrocystic changes without dicrete cyst; band like projection noted. No adenopathy ASSESSMENT/PLAN 610.1AD Fibrocystic Breast Disease (primary encounter diagnosis) Comment: bilateral; normal breast tissue. Plan: reassurance; reviewed fibrocystic changes; return for reevaluation if concern in the future. Inocencia Robledo MD electronically signed ER PARENT documented in this encounter Nursing Notes 06/06/2008 1:30 PM CST >> ODELL KATHIA Aguirre Jun 06, 2008 1:33 PM Patient presents with: Breast Exam - c/o area on upper right breast area that is tender. Initial BP 122/58 Pulse 58 Wt 110 lb (49.896 kg) LMP 05/24/2008 Estimated Body mass index is 19.49 kg/(m^2) as calculated from: Height of 5' 3 (1.6 m) as of 02/15/08 Weight of 110 lb (49.896 kg) as of this encounter BP completed using cuff size. regular. Geronimo Leslie LPN documented in this encounter Plan of Treatment Not on filedocumented as of this encounter Visit Diagnoses Diagnosis Fibrocystic breast disease - Primary Diffuse cystic mastopathy documented in this encounter Care Teams Lacing Cutter Relationship Specialty Start Date End Date Adal Kincaid MD PCP - General 05/05/03 01/28/12 [address] [place] [address] documented as of this encounter
--- OUTSIDE RECORDS SUMMARY | 2022-06-06 21:08 | XMS_ITS | Encounter Summary ---
:1985 Author Organization [place] Address [address] [place] [address]. [place] [address] Care Team Providers Name Role Phone Adal Kincaid MD Primary Care Provider [phone] Reason for Visit Reason Onset Date Comments Patient Request 08/17/2008 Encounter Details Date Type Department Care Team Description 08/17/2008 Telephone [facility] Womens Hecotr Hernadnez MD Patient Request Clinic [place] XXX RETIRED XXX [address] [place] [address] (Wo rk) Social History Tobacco [...] you attend congregation or Patient refused 2021 scientologist services? Do [...] this encounter Miscellaneous Notes Telephone Encounter - Hector Melvin - 08/22/2008 8:14 AM CST I TALKED WITH OPT AND SHE WILL COME IN TO DISCUSS COLPOSCOPY, CRYO OR LEEP. THERE WILL BE NO CHARGE FOR THE DISCUSSION. FACTURING LEADER Telephone Encounter - Mervat Antunez - 08/21/2008 3:36 PM CST Pt calling to check status of meesage. Mervat Antunez RN FACTURING LEADER Telephone Encounter - Madyson Salmon - 08/17/2008 9:11 AM CST Pt was to come in to discuss abnormal Pap, but has to pay medical cost out of pocket. Is asking if MD could call to discuss results instead, so she doesn't have to pay another office visit & take time off work. FACTURING LEADER documented in this encounter Plan of Treatment Not on filedocumented as of this encounter Visit Diagnoses Not on filedocumented in this encounter Care Teams Game Master Relationship Specialty Start Date End Date Adal Kincaid MD PCP - General 05/05/03 01/28/12 [place] [address] documented as of this encounter
--- OUTSIDE RECORDS SUMMARY | 2022-06-06 21:08 | XMS_ITS | Encounter Summary ---
:1985 Author Organization [place] Address [address] [place] [address]. [place] [address] Care Team Providers Name Role Phone Adal Kincaid MD Primary Care Provider [phone] Reason for Visit Reason Comments Leep Encounter Details Date Type Department Care Team Description 04/24/2009 Office Visit [facility] Hector Justice LSIL (L ow Grade [facility] MD Tona Intraepithelial Lesion) [place] XXX RETIRED XXX on PAP Smear (Primary [address] [place] [address] Dx) [place], [place] [address] [address] [place], [place] [phone] [address] (Work) [phone] Social History Tobacco Use Types Packs/Day Years [...] you attend christian or Patient refused 2021 methodist services? Do [...] Sign Reading Time Taken Comments Blood Pressure 108/66 04/24/2009 2:08 PM CDT Pulse - - Temperature - - Respiratory Rate - - Oxygen Saturation - - Inhaled Oxygen Concentration - - Weight 47.3 kg (104 lb 3.2 oz) 04/24/2009 2:08 PM CDT Height - - Body Mass Index 18.75 09/04/2008 9:15 AM DROP WIRE HANGER documented in this encounter Progress Notes Hector Justice - 04/24/2009 3:04 PM CDT LEEP Procedure for Moderate and mild dysplasia Speculum with perforated joshua inserted to expose cervix and hold out the vaginal sidewalls Cervix prepped with Betadine Cervix injected with 2% Lidcaine with Epinephrine 12,3,6,9 o'clock Bernadine Loop 12 x 20 [address] with guide in place used to obtain specimens First One was taken from 7and 11 o'clock to the midline and the second specimen was obtained from 3 to 11 and 7 o'clock completing a 360 degree LEEP CONE BIOPSY A small bit of oozing was controlled with cautery from a Ball cautery tip. The crator was then coated with Monsel's solution Blood loss 3 cc. Pt tolerated procedure well documented in this encounter Nursing Notes 04/24/2009 2:00 PM CDT >> MARCE Aguirre Apr 24, 2009 2:10 PM Patient presents with: Leep.Marce Bazzi MA Initial BP 108/66 Wt 104 lb 3.2 oz (47.265 kg) LMP 03/28/2009 Estimated Body mass index is 18.75kg/(m^2) as calculated from: Height of 5' 2.5 (1.588 m) as of 09/04/08 Weight of 104 lb 3.2 oz (47.265 kg) as of this encounter. BP completed using cuff size: regular documented in this encounter Plan of Treatment Not on filedocumented as of this encounter Procedures Procedure Name Priority Date/Time Associated Diagnosis Comme nts HC COLP Routine 04/30/2009 11:50 LSIL (Low Grade CERVIX/UPPER AM CDT Squamous VAGINA W LOOP ELEC Intraepithelial Lesion ) BX CERVIX on Pap Smear CL AFF SURGICAL Routine 04/24/2009 12:00 LSIL (Low Grade Resul ts for this PATHOLOGY AM CDT Squamous procedure are i n Intraepithelial Lesion) the results on Pap Smear section. documented in this encounter Results SURGICAL PATHOLOGY (04/24/2009 12:00 AM CDT) Component Value Ref Test Analysis Performed At [facility] Range Method Time Signature Copath Report Patient Name: MARCELINO DALEY MR#: [id number] Specimen #: [id number] Collected: 04/24/2009 Received: 04/25/2009 Reported: 04/26/2009 11:35 Ordering Phy(s): HECTOR JUSTICE SPECIMEN(S): A: LEEP biopsy, 7:00 and 11:00 to midline B: LEEP biopsy, 3:00 to 7:00 and 11:00 FINAL DIAGNOSIS: A. ??Cervix, at 7:00 and 11:00 to midline, LEEP - 1. ?Ectocervix only. 2. ? Low grade squamous intraepithelial lesion (condylom a/PEDRO-1), focal. 3. ? Non-neoplastic findings - changes of previous biops y site. B. ??Cervix, at 3:00 to 7:00 and 11:00, LEEP - 1. ?Ectocervix, transformation zone and endocer vix present. 2. ? High grade squamous intraepithelial lesion (PEDRO-2/m oderate dysplasia). 3. ? Low grade squamous intraepithelial lesion (condylom a/PEDRO-1). 4. ? Ectocervical and endocervical margins free of dyspl ramos. 5. ? None-neoplastic findings - Changes of previous biop sy site, acute cervicitis and chronic cervicitis. COMMENT: Previous Pap. smear ([id number]) was positive for low grade s quamous intraepithelial lesion. ??The Pap. smear was reviewed and th e abnormalities were confirmed. Electronically signed out by: Dominick Segura M.D. CLINICAL HISTORY: LSIL Pap. GROSS: A. ??The specimen, labeled LEEP - 7:00 and 11:00 to midline , consists of a band of leal to pink rubbery tissue measuring 1.5 cm x 1 cm x 0.5 cm. ??The ectocervix, transformation zone and endocervical c anal appear to be present. ??Surgical margins are marked with black ink. ??The specimen is serially sectioned and submitted in its entirety in four cassettes. B. ??The specimen, labeled LEEP biopsy at 3:00 to 7:00 and 11:00, consists of a ring of leal to pink rubbery tissue measuring 2 cm in diameter by 0.8 cm in thickness. ??A portion of the surface is covered by epithelium and it may corresponds to 3:00 to 7:00. ??There i s a suture marking the opposite side which is assumed to correspond to 11:00/12:00. The ectocervix, transformation zone and endocervical canal are identified. ??The surgical margins are marked with black ink . ??The specimen is serially sectioned and submitted in its entirety . SUMMARY OF SECTIONS: 1. ??12:00 to 3:00. 2 and 3. ??3:00 to 6:00. 4. ??6:00 to 9:00. 5 and 6. ??9:00 to 12:00. MGP/kd MICROSCOPIC: A and B. ??Microscopic examination was performed. MGP/kd 04-26-09 TESTING LAB LOCATION: [address] ??[address] COLLECTION SITE: Client: [facility] Location: RIOB (R) Specimen (Source) Anatomical Collection Method Collection Time Re ceived Time Location / / Volume Laterality 04/24/2009 04/25/2009 2:55 PM CDT Hector Justice MD LABORATORY Performing Organization Address City/State/ZIP Code Phon e Number COPATH documented in this encounter Visit Diagnoses Diagnosis LSIL (low grade squamous intraepithelial lesion) on Pap smear - Primary Papanicolaou smear of cervix with low gr nella squamous intraepithelial lesion (LGSIL) documented in this encounter Care Teams Production Mechanic Tin Cans Relationship Specialty Start Date End Date Adal Kincaid MD PCP - General 05/05/03 01/28/12 [address] [place], [place] [address] documented as of this encounter
--- OUTSIDE RECORDS SUMMARY | 2022-06-06 21:08 | XMS_ITS | Encounter Summary ---
:1985 Author Organization [place] Address [address] [place] [address]. [place] [address] Care Team Providers Name Role Phone Adal Kincaid MD Primary Care Provider [phone] Reason for Visit Reason Comments Derm Problem Depression Encounter Details Date Type Department Care Team Description 04/16/2009 Office Visit [facility] Tariq Kincaid ajronnie Depression (H) (Primary Dx); Clinic [place] Adal Moreira MD Skin Disorder [address] [place] [address] [place] [place] [address] [place], [place] [phone] (Wo rk) [address] [phone] Social History Tobacco Use Types Packs/Day Years [...] you attend confucianist or Patient refused 2021 mosque services? Do [...] Reading Time Taken Comments Blood Pressure 110/70 04/16/2009 8:45 AM CDT Pulse - - Temperature - - Respiratory Rate - - Oxygen Saturation - - Inhaled Oxygen Concentration - - Weight 48.7 kg (107 lb 4.8 oz) 04/16/2009 8:45 AM CDT Height - - Body Mass Index 19.31 09/04/2008 9:15 AM COURTROOM REPORTER documented in this encounter Progress Notes Tenzin Kincaid - 04/16/2009 9:04 AM CDT pt is a 24 year old female who is seen here to day with c/o feeling sad,decreased motivation,decreased energy,for 3 wks. Pt lost her job and broke up with her boyfriend at the kuldeep time 3 wks ago. [place] feeling sad,thinking a lot. Diminished interest in activities-yes Appetite decreased.Has becomemore emotional. Does not want to socialize.No suicidal ideation,or thoughts.sleep is disturbed ,was not on any meds in the past. Has been seeing a psychologist. Pt also c/o bumps on back of donnell arms for several mths,no itching. Past Surgical History Procedure Date ??? Nonspecific procedure rt brest biopsy,benign Current outpatient prescriptions Medication Sig ??? CITALOPRAM HYDROBROMIDE 20 MG OR TABS 1 TABLET DAILY ??? TRI-SPRINTEC 0.035 MG OR TABS 1 TABLET DAILY ROS: CONSTITUTIONAL: positive for loss of appetite,insomnia. PSYCHIATRIC:depression Skin bumps on arms. Blood pressure 110/70, weight 107 lb 4.8 oz (48.671 kg), last menstrual period 03/19/2009. GENERAL:healthy, alert and no distress HEENT-pupils equal and reactive to light and accommodation, oropharynx clear RESP: Normal - CTA without rales, rhonchi, or wheezing. Skin;tiny hair follicles noted on back of donnell upper arms,no vesicles or pustules. ASSESSMENT AND PLAN: 296.22F Moderate Major Depression (primary encounter diagnosis) Comment: situational depression Plan: CITALOPRAM HYDROBROMIDE 20 MG OR TABS as directed.explained clearly about the medication,insructions and side effects. PHQ-9 score on record= 11 062.9E Skin Disorder Plan: reassured. F/u with derm if symptoms persists. documented in this encounter Nursing Notes 04/16/2009 8:45 AM CDT >> WHITNEY DRAKE [facility] Apr 16, 2009 8:47 AM Patient presents with: Derm Problem arms and legs x2 months. Initial BP 110/70 Wt 107 lb 4.8 oz (48.671 kg) LMP 03/19/2009 Estimated Body mass index is 19.31kg/(m^2) as calculated from: Height of 5' 2.5 (1.588 m) as of 09/04/08 Weight of 107 lb 4.8 oz (48.671 kg) as of this encounter. BP completed using cuff size: regular documented in this encounter Plan of Treatment Not on filedocumented as of this encounter Visit Diagnoses Diagnosis Moderate major depression (H) - Primary Major depressive disorder, single episod e, moderate Skin disorder Unspecified disorder of skin and subcuta neous tissue documented in this encounter Care Teams Concrete Pouring Supervisor Relationship Specialty Start Date End Date Adal Kincaid MD PCP - General 05/05/03 01/28/12 [address] [place] [address] documented as of this encounter
--- OUTSIDE RECORDS SUMMARY | 2022-06-06 21:08 | XMS_ITS | Encounter Summary ---
:1985 Author Organization [place] Address [address] [place] [address]. [place] [address] Care Team Providers Name Role Phone Adal Kincaid MD Primary Care Provider [phone] Reason for Visit Reason Comments Colposcopy Encounter Details Date Type Department Care Team Description 11/21/2008 Office Visit [facility] Marjorie Justice LGSI L on Pap Smear [facility] (Primary Dx) [place] XXX RETIRED XXX [address] [place] [address] [address] [address] [place], [place] [phone] [address] (Work) [phone] Social History Tobacco Use Types Packs/Day Years [...] you attend pentecostal or Patient refused 2021 buddhist services? 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 Previous paps:abnormal Previous Biopsy?: yes Previous Cryo?: yes Previous LEEP?: no Previous Laser?: no COLPOSCOPIC EXAM: satisfactory: No mosaic, no white areas, no stippling, Lugols negative Examined without staining?: yes Examined with Acetic Acid staining?: yes Examined with Lugol's Iodine staining?: yes Biopsie: 6,9, ECC Colposcopic Impression: Minimal dysplasia or less Post Colposcopy Instructions given?: yes F/U visit scheduled for one week documented in this encounter Nursing Notes 11/21/2008 1:45 PM CDT >> MARCE Aguirre Nov 21, 2008 2:19 PM Marcelino Daley presents for colp.Marce Bazzi MA Initial BP 102/78 Wt 108 lb 11.2 oz (49.306 kg) LMP 11/01/2008 Estimated Body mass index is 19.56 kg/(m^2) as calculated from: Height of 5' 2.5 (1.588 m) as of 09/04/08 Weight of 108 lb 11.2 oz (49.306 kg) as of this encounter. BP completed using cuff size: regular documented in this encounter Plan of Treatment Not on filedocumented as of this encounter Procedures Procedure Name Priority Date/Time Associated Diagnosis Comme nts HC COLP Routine 11/27/2008 12:21 PM LGSIL on Pap Smear CERVIX/UPPER VAGINA CDT W BX CERVIX/ENDOCERV CURETT CL AFF SURGICAL Routine 11/21/2008 12:00 AM LGSIL on Pap Smear Results for this PATHOLOGY CDT procedure are i n the results section. documented in this encounter Results SURGICAL PATHOLOGY (11/21/2008 12:00 AM CDT) Component Value Ref Test Analysis Performed At [facility] Range Method Time Signature Copath Report Patient Name: MARCELINO DALEY MR#: [id number] Specimen #: [id number] Collected: 11/21/2008 Received: 11/22/2008 Reported: 11/24/2008 09:26 Ordering Phy(s): MARJORIE JUSTICE ORIGINAL REPORT FOLLOWS ADDENDUM ADDENDUM TO ORIGINAL REPORT Status: Signed Out Date Ordered:11/24/2008 Date Complete:11/24/2008 Date Reported:11/24/2008 14:47 Signed Out By: Fredrick Dan M.D. INTERPRETATION: A. ??More complete evaluation of this biopsy on deeper secti ons still does not show diagnostic changes of squamous dysplasia or HP V effect at this focus. OSCAR/renu DT/11-24-08 ORIGINAL REPORT: SPECIMEN(S): A: Cervical biopsy, 6 o'clock B: Cervical biopsy, 9 o'clock C: Endocervical curettings FINAL DIAGNOSIS: A. ??Cervical biopsy, 6:00 - Benign squamous mucosa (see judy cription). B. ??Cervical biopsy, 9:00 - Exocervical mucosa with atypica l squamous metaplasia and focal mild squamous dysplasia (PEDRO-1). C. ??Endocervical curettings - Very sparse endocervical and squamous mucosa with no pathologic changes seen. COMMENT: The most recent Pap. smear is reviewed ([id number] from 08/02/08) . ??This review confirms the presence of occasional cell groups with mild dysplastic features and features suggesting HPV. ??The HPV c hanges are more prominent than found on the biopsy, but otherwise, ther e is good correlation. ??Deeper sections will be obtained on both A an d B and if there are any other findings a supplementary report will be issued. Electronically signed out by: Fredrick Dan M.D. CLINICAL HISTORY: LSIL Pap. GROSS: A. ??The specimen, labeled cervical biopsy at 6 o'clock, c onsists of a single biopsy fragment of about 0.9 cm in greatest dimension . ??The entire specimen is embedded in one cassette. B. ??The specimen, labeled cervical biopsy at 9 o'clock, c onsists of a single biopsy fragment of about 6 mm in greatest dimension. ??The entire specimen is in one cassette. C. ??The specimen, labeled endocervical curettings, consis ts of very few tiny particulate fragments floating in formalin and thes e appear mucoid and some appear to be just particles of blood clot. ? ?The entire specimen is filtered and totally embedded in one cassette. ? ?JKW/adrien MICROSCOPIC: A. ??Sections show surface squamous mucosa cut rather tangen tially and showing no suggestion of dysplastic atypia. ??This was a lar ge biopsy and sections may not be completely loan servicing representative so additional deeper sections will be obtained and if there are any other finding s a supplementary report will be issued. B. ??Sections of cervical biopsy at 9:00 similarly show surf kandis squamous mucosa cut tangentially without submucosa and only at one ed ge there is suggestion that is near squamocolumnar junction. ??This area , however, does show some nuclear atypia and disarray of maturation and some increase in cellularity. ??These predominantly appear to be in areas of old squamous metaplasia. ??Focally, this appears consistent with mild squamous dysplasia. C. ??Sections of endocervical curettings show a few small fr agments of benign endocervical glandular epithelium and a minimal amoun t of surface squamous epithelium. ??No atypia or dysplastic changes are s een. OSCAR/renu 11-23-08 TESTING LAB LOCATION: [address] ??[address] COLLECTION SITE: Client: [facility] Location: RIOB (R) Specimen (Source) Anatomical Collection Method Collection Time Re ceived Time Location / / Volume Laterality 11/21/2008 11/22/2008 9:11 AM CDT Marjorie Justice MD LABORATORY Performing Organization Address City/State/ZIP Code Phon e Number COPATH documented in this encounter Visit Diagnoses Diagnosis Papanicolaou smear of cervix with low gr nella squamous intraepithelial lesion (LGSIL) - Primary documented in this encounter Care Teams Checker Dump Grounds Relationship Specialty Start Date End Date Adal Kincaid MD PCP - General 05/05/03 01/28/12 [address] [place] [address] documented as of this encounter
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
--- OUTSIDE RECORDS SUMMARY | 2022-06-06 21:08 | XMS_ITS | Encounter Summary ---
:1985 Author Organization [place] Address [address] [place] [address]. [place] [address] Care Team Providers Name Role Phone Adal Kincaid MD Primary Care Provider [phone] Reason for Visit Reason Onset Date Comments Refill Request 01/29/2010 Encounter Details Date Type Department Care Team Description 01/29/2010 Refill [facility] Hector Hernandez MD Refill Request Clinic [place] XX RETIRED XXX [address] [place] [phone] (Wo rk) Social History Tobacco [...] you attend muslim or Patient refused 2021 sikh services? Do [...] slept in a long term (including now)? Sex Assigned at Date Recorded Female 03/25/2021 2:01 PM CDT documented as of this encounter Miscellaneous Notes Telephone Encounter - Pamella Chapman - 01/29/2010 4:01 PM CDT Refill request form faxed from pharmacy. Last pap 09/05. rx approved per protocol. Geronimo Chapman RN documented in this encounter Plan of Treatment Not on filedocumented as of this encounter Visit Diagnoses Diagnosis Contraception - Primary Unspecified contraceptive management documented in this encounter Care Teams Senior Living Advisor Relationship Specialty Start Date End Date Adal Kincaid MD PCP - General 05/05/03 01/28/12 [place] [address] documented as of this encounter
--- OUTSIDE RECORDS SUMMARY | 2022-06-06 21:08 | XMS_ITS | Encounter Summary ---
:1985 Author Organization [place] Address [address] [place] [address]. 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 LMP: Patient's last menstrual period was 03/28/2009. Needs Pap follow up. Probable LEEP if Pap not ok. Medical, surgical, family and social histories all reviewed and updated. ROS: CONSTITUTIONAL:NEGATIVE for fever, chills, change in weight RESP:NEGATIVE for significant cough or SOB CV: NEGATIVE for chest pain, palpitations or peripheral edema GI: NEGATIVE for nausea, abdominal pain, heartburn, or change in bowel habits :NEGATIVE for frequency, dysuria, or hematuria BREAST: NEGATIVE for masses, tenderness or discharge EXAM: BP 118/76 Wt 107 lb 12.8 oz (48.898 kg) LMP 03/28/2009 GENERAL APPEARANCE: healthy, alert and no distress RESP: lungs clear to auscultation - no rales, rhonchi or wheezes CV: regular rates and rhythm, normal S1 S2, no S3 or S4 and no murmur, click or rub ABDOMEN: soft, nontender, without hepatosplenomegaly or masses BREAST: normal without masses, tenderness or nipple discharge and no palpable axillary masses or adenopathy PELVIC: normal vagina and vulva, normal cervix without lesions or tenderness, uterus normal size anteverted, adnexa normal in size without tenderness, pap smear done, rectal normal, exam chaperoned by nurse ASSESSMENT/IMPRESSION: Health Maintenance Exam Mild dysplasia in past PLAN: Pap See orders from today's visit documented in this encounter Nursing Notes 04/05/2009 1:30 PM CDT >> ELIZABETH Segundo Apr 05, 2009 1:38 PM .Patient 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 Intial BP 118/76 Wt 107 lb 12.8 oz (48.898 kg) LMP 03/28/2009 Estimated Body mass index is 19.40 kg/(m^2) as calculated from: Height of 5' 2.5 (1.588 m) as of 09/04/08 Weight of 107 lb 12.8 oz (48.898 kg) as of this encounter BP completed using cuff size: regular. Elizabeth Lerner MA documented in this encounter Plan of Treatment Not on filedocumented as of this encounter Procedures Procedure Name Priority Date/Time Associated Diagnosis Comme nts HCL ANTI-TREPONEMIA Routine 04/05/2009 2:07 PM Routine Gynecol ogical Results for this EIA CDT Examination procedure are i n the results section. CL AFF HEP B Routine 04/05/2009 2:07 PM STD (Sexually Results for this SURFACE ANTIGEN CDT Transmitted Disease) proc edure are in the results section. HCL HEPATITIS C Routine 04/05/2009 2:07 PM STD (Sexually Resul ts for this VIRUS ANTIBODY CDT Transmitted Disease) proce dure are in the results section. HCL HIV 1 & 2 Routine 04/05/2009 2:07 PM Routine Gynecological Results for this ANTIBODY CDT Examination procedure are i n the results section. CL AFF Routine 04/05/2009 1:59 PM Routine Gynecological Results for this N.GONORRHOEAE, DNA CDT Examination procedure are in AMP PROBE the results section. CL AFF CHLMYD Routine 04/05/2009 1:59 PM Routine Gynecological Results for this TRACH, DNA, AMP CDT Examination procedure ar e in PROBE the results section. HCL PAP THIN LAYER Routine 04/05/2009 12:00 LGSIL on Pap Smear Results for this DIAGNOSTIC AM CDT procedure are i n the results section. documented in this encounter Results HCV ANTIBODY (04/05/2009 2:07 PM CDT) Analysis Performed At Patho logist Time Signature Hepatitis C Negative NEG [facility] Antibody [facility] LABS Specimen Anatomical Collection Method Collection Time Receive d Time (Source) Location / / Volume Laterality 04/05/2009 2:07 PM 9 2:12 CDT PM CDT Hector Justice MD LABORATORY Performing Organization Address City/State/ZIP Code Phon e Number [address] LABS HEP B SURFACE ANTIGEN (04/05/2009 2:07 PM CDT) Analysis Performed At Patho logist Time Signature Hep B Surface Negative NEG [facility] LABS Specimen Anatomical Collection Method Collection Time Receive d Time (Source) Location / / Volume Laterality 04/05/2009 2:07 PM 9 2:12 CDT PM CDT Hector Justice MD LABORATORY Performing Organization Address City/State/ZIP Code Phon e Number [address] LABS ANTI-TREPONEMIA EIA (04/05/2009 2:07 PM CDT) Analysis Performed At Patho logist Time Signature [facility] Specimen Anatomical Collection Method Collection Time Receive d Time (Source) Location / / Volume Laterality 04/05/2009 2:07 PM 9 2:12 CDT PM CDT Hector Justice MD LABORATORY Performing Organization Address City/State/ZIP Code Phon e Number [id number] [place] [address] LABS HIV 1 & 2, SCREEN (04/05/2009 2:07 PM CDT) Analysis Performed At Patho logist Time Signature HIV 1&2 Negative NEG [facility] Antibody [facility] LAB[facility] Specimen Anatomical Collection Method Collection Time Receive d Time (Source) Location / / Volume Laterality 04/05/2009 2:07 PM 9 2:12 CDT PM CDT Hector Justice MD LABORATORY Performing Organization Address City/State/ZIP Code Phon e Number [address] LABS CHLMYD TRACH, DNA, AMP PROBE (04/05/2009 1:59 PM CDT) Component Value Ref Test Analysis Performed At Patholo gist Range Method Time Signature Specimen [place] Description [facility] LAB Chlamydia Negative for C. trachomatis rRNA by gear tester mediated amplification. [facility] Trachomatis A negative result by transc ription mediated amplification does not preclude the [place] PCR presence of C. trachomatis infection because results are dependent on proper CAMPUS LABS and adequate collection, absence of inhibitors, and suffici ent rRNA to be detected. Specimen Anatomical Collection Method Collection Time Receive d Time (Source) Location / / Volume Laterality 04/05/2009 1:59 PM 9 2:04 CDT PM CDT Hector Justice MD LABORATORY Performing Organization Address City/[facility]/ZIP Code Phon e Number [address] LAB [facility] LABS N.GONORRHOEAE, DNA, (GC) (04/05/2009 1:59 PM CDT) Component Value Ref Test Analysis Performed At [facility] Method Time Signature Specimen [place]ag[place] [facility] LAB N Gonorrhea Negative for N. gonorrhoeae rRNA by gear tester mediated amplification. [facility] PCR A negative result by transc ription mediated amplification does not preclude the [place] presence of N. gonorrhoeae infection because re sults are dependent on proper CAMPUS LABS and adequate collection, absence of inhibitors, and suffici ent rRNA to be detected. Specimen Anatomical Collection Method Collection Time Receive d Time (Source) Location / / Volume Laterality 04/05/2009 1:59 PM 9 2:04 CDT PM CDT Hector Justice MD LABORATORY Performing Organization Address City/[facility]/ZIP Code Phon e Number [address] LAB [facility] LABS (ABNORMAL) A THIN LAYER, DIAGNOSTIC PAP (04/05/2009 12:00 AM CDT) Component Value Ref Test Analysis Performed At [facility] Method Time Signature PAP LSIL (A) COP[place] Copath Report COPATH Patient Name: MARCELINO DALEY MR#: [id number] Specimen #: [id number] Collected: 04/05/2009 Received: 04/06/2009 Reported: 04/10/2009 07:46 Ordering Phy(s): HECTOR JUSTICE SPECIMEN/STAIN PROCESS: Pap thin layer prep diagnostic (SurePath) ? Pap-Cyto x 1, Reflex HPV x 1 SOURCE: Cervical, endocervical ---- Pap thin layer prep diagnostic (SurePath) SPECIMEN ADEQUACY: Satisfactory for evaluation. -Transformation zone component present. CYTOLOGIC INTERPRETATION: Epithelial Cell Abnormality: ??Squamous Cell: ??Low-grade sq uamous intraepithelial lesion (LSIL) encompassing: ??HPV/ mild dysp lasia/ PEDRO 1. Electronically signed out by: Michele Fernandes M.D. Processed and screened at [facility] CLINICAL HISTORY: LMP: 03/28/09 Oral Control Pill, Previous abnormal pap: LSIL Date of Last Pap: 08/01/08, TESTING LAB LOCATION: [facility] [address] [place], [place] ??[address] COLLECTION SITE: Client: ??[facility] Location: RIOB (R) Specimen (Source) Anatomical Collection Method Collection Time Re ceived Time Location / / Volume Laterality 04/05/2009 04/06/2009 8:38 AM CDT Hector Justice MD LABORATORY Performing Organization Address City/State/ZIP Code Phon e Number [place] documented in this encounter Visit Diagnoses Diagnosis Routine gynecological examination - Prim cresencio STD (sexually transmitted disease) Venereal disease, unspecified Papanicolaou smear of cervix with low gr nella squamous intraepithelial lesion (LGSIL) Mild dysplasia of cervix documented in this encounter Care Teams Dye Automation Operator Relationship Specialty Start Date End Date Adal Kincaid MD PCP - General 05/05/03 01/28/[address] [place] [address] documented as of this encounter
--- OUTSIDE RECORDS SUMMARY | 2022-06-06 21:08 | XMS_ITS | Encounter Summary ---
:1985 Author Organization [place] Address [address] [place] [address]. [place] [address] Care Team Providers Name Role Phone Adal Kincaid MD Primary Care Provider [phone] Reason for Visit Reason Comments Colposcopy cryo Encounter Details Date Type Department Care Team Description 12/14/2008 Office Visit [facility] Hector Melvin, Mild Dysplasia of [facility] Cervix (Primary Dx) [place] XXX RETIRED XXX [address] [place] [address] [address] [address] [place], [place] [phone] [address] (Work) [phone] Social History Tobacco Use Types Packs/Day Years [...] you attend sabianism or Patient refused 2021 rastafarian services? 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 documented in this encounter Progress Notes Hector Melvin - 12/14/2008 2:21 PM CDT Here for cryo for treatment of mild dysplasia of cervix Cryo: [id number] technique Pt had some cramping but tolerated procedure well Pap in 4 months documented in this encounter Nursing Notes 12/14/2008 1:45 PM CDT >> ELIZABETH BRICENO Ratna December 14, 2008 1:54 PM .Patient presents with: Colposcopy - cryo Intial BP 100/60 Wt 108 lb 4.8 oz (49.125 kg) LMP 12/06/2008 Estimated Body mass index is 19.49kg/(m^2) as calculated from: Height of 5' 2.5 (1.588 m) as of 09/04/08 Weight of 108 lb 4.8 oz (49.125 kg) as of this encounter BP completed using cuff size: regular. Elizabeth Briceno MA documented in this encounter Plan of Treatment Not on filedocumented as of this encounter Procedures Procedure Name Priority Date/Time Associated Diagnosis Comme nts HC CAUTERY OF CERVIX, Routine 12/20/2008 7:41 AM Mild Dysplasi a of CRYOCAUTERY CDT Cervix documented in this encounter Visit Diagnoses Diagnosis Mild dysplasia of cervix - Primary documented in this encounter Care Teams Making Machine Catcher Relationship Specialty Start Date End Date Adal Kincaid MD PCP - General 05/05/03 01/28/12 [address] [place] [address] documented as of this encounter
--- OUTSIDE RECORDS SUMMARY | 2022-06-06 21:08 | XMS_ITS | Encounter Summary ---
:1985 Author Organization [place] Address [facility] [place] [address] Care Team Providers Name Role Phone Adal Kincaid MD Primary Care Provider [phone] Reason for Visit Reason Comments Repeat Pap Smear Encounter Details Date Type Department Care Team Description 08/01/2008 Office Visit [facility] Marjorie Justice, LGDEANNA L on Pap Smear (Primary Dx); [facility] Frequency of Urination and Polyuria; [place] XXX RETIRED XXX Mild Dysplasia of Cervix [address] [place], [place] [address] [address] [place], [place] [phone] [address] (Work) [phone] Social History Tobacco Use Types Packs/Day Years [...] you attend christianity or Patient refused 2021 jew services? Do [...] Reading Time Taken Comments Blood Pressure 108/62 08/01/2008 2:00 PM REGISTERED NURSE FETAL Pulse - - Temperature - - Respiratory Rate - - Oxygen Saturation - - Inhaled Oxygen Concentration - - Weight 49.7 kg (109 lb 8 oz) 08/01/2008 2:00 PM REGISTERED NURSE FETAL Height - - Body Mass Index 19.4 02/15/2008 8:00 AM CDT documented in this encounter Progress Notes Marjorie Justice - 08/01/2008 4:01 PM REGISTERED NURSE FETAL Addended by: MARJORIE JUSTICE on: 08/01/2008 4:01:07 PM Modules accepted: Orders STERED NURSE FETAL Marjorie Justice - 08/01/2008 2:20 PM CST Here for follow up PAP AFTER CRYO FOR MILD DYSPLASIA.. Having some frequency and dysuria. Cervix looks normal U/a Pap smear STERED NURSE FETAL documented in this encounter Nursing Notes 08/01/2008 2:00 PM CST >> MARCE Aguirre Aug 01, 2008 2:06 PM Marcelino Daley presents for repeat pap. Pt c/o urinary urgency.Marce Bazzi MA Initial BP 108/62 Wt 109 lb 8 oz (49.669 kg) LMP 07/19/2008 Estimated Body mass index is 19.40 kg/(m^2) as calculated from: Height of 5' 3 (1.6 m) as of 02/15/08 Weight of 109 lb 8 oz (49.669 kg) as of this encounter. BP completed using cuff size: regular documented in this encounter Plan of Treatment Not on filedocumented as of this encounter Procedures Procedure Name Priority Date/Time Associated Comments Diagnosis HCL CULTURE, URINE Routine 08/01/2008 2:10 PM Frequency of Res ults for this REGISTERED NURSE FETAL Urination and procedure are in Polyuria the results section. HCL UA MICRO IF Routine 08/01/2008 2:10 PM Frequency of Result s for this POSITIVE REGISTERED NURSE FETAL Urination and procedure are in Polyuria the results section. CL AFF MICRO Routine 08/01/2008 2:10 PM Results f or this EXAM-URINE REGISTERED NURSE FETAL procedure are i n the results section. HCL PAP THIN LAYER Routine 08/01/2008 12:00 AM LGSIL on Pap Sm ear Results for this DIAGNOSTIC REGISTERED NURSE FETAL procedure are i n the results section. documented in this encounter Results (ABNORMAL) MICRO EXAM-URINE (08/01/2008 2:10 PM REGISTERED NURSE FETAL) Analysis Performed At Patho logist Time Signature WBC Urine >100 (A) 0 - 2 /HPF [facility] RBC Urine 10-25 (A) 0 - 2 /HPF [facility] Bacteria Urine Many (A) NEG /HPF [facility] Specimen Anatomical Collection Method Collection Time Receive d Time (Source) Location / / Volume Laterality 08/01/2008 2:10 PM 9 2:15 REGISTERED NURSE FETAL PM REGISTERED NURSE FETAL Marjorie Justice MD LABORATORY Performing Organization Address City/State/ZIP Code Phon e Number [facility] [address] [place], [place] [address] [address] [facility] URINE CULTURE (08/01/2008 2:10 PM REGISTERED NURSE FETAL) Patholo gist Method Time Signature Specimen Midstream Urine [facility] LAB Culture Micro >100,000 [place] colonies/mL [facility] [place] [facility] coli Report status FINAL [place] 08/02/2008 [facility] Specimen Anatomical Collection Method Collection Time Receive d Time (Source) Location / / Volume Laterality 08/01/2008 2:10 PM 9 2:15 REGISTERED NURSE FETAL PM REGISTERED NURSE FETAL Organism Antibiotic Method Susceptibility >100,000 colonies/ml Amoxicillin/Clav 4 Suscepti ble escherichia coli (enzo) >100,000 colonies/ml Ampicillin <=2 Suscept ible escherichia coli (enzo) >100,000 colonies/ml Cefazolin <=4 Suscept ible escherichia coli (enzo) >100,000 colonies/ml Ceftriaxone <=1 Suscept ible escherichia coli (enzo) >100,000 colonies/ml Cefuroxime Axetil 4 Suscept ible escherichia coli (enzo) >100,000 colonies/ml Ciprofloxacin <=0.25 Susc eptible escherichia coli (enzo) >100,000 colonies/ml Gentamicin <=1 Suscept ible escherichia coli (enzo) >100,000 colonies/ml Levofloxacin <=0.25 Susc eptible escherichia coli (enzo) >100,000 colonies/ml Nitrofurantoin <=16 Suscep tible escherichia coli (enzo) >100,000 colonies/ml Ticarcillin <=8 Suscept ible escherichia coli (enzo) >100,000 colonies/ml Ticarcillin/Clav <=8 Suscep tible escherichia coli (enzo) >100,000 colonies/ml Tobramycin <=1 Suscept ible escherichia coli (enzo) >100,000 colonies/ml Trimethoprim/Sulfamethoxazole <=1/19 Susceptible escherichia coli (enzo) >100,000 colonies/ml Cefotaxime Deduced Swapna ceptible escherichia coli (enzo) Marjorie Justice MD LABORATORY Performing Organization Address City/State/ZIP Code Phon e Number M [facility] [address] [facility] [place] [address] [phone] [facility] LAB (ABNORMAL) UA MICRO IF POSITIVE (08/01/2008 2:10 PM REGISTERED NURSE FETAL) [facility] Method Time Signature Color Urine Yellow [facility] Appearance Urine Cloudy [facility] Glucose Urine Negative NEG mg/dL [facility] Bilirubin Urine Negative NEG [facility] Ketones Urine Trace (A) NEG mg/dL [facility] Specific [place] 1.020 1.003 - [place] Urine 1.035 [facility] Blood Urine Moderate (A) NEG [facility] pH Urine 6.0 5.0 - 7.0 [place] pH [facility] Protein Albumin 100 (A) NEG mg/dL [facility] LAB Urobilinogen 0.2 0.2 - 1.0 [place] Urine EU/dL [facility] Nitrite Urine Positive (A) NEG [facility] Leukocyte Large (A) NEG [place] Esterase Urine [facility] Source Midstream [facility] LAB Specimen Anatomical Collection Method Collection Time Receive d Time (Source) Location / / Volume Laterality 08/01/2008 2:10 PM 9 2:15 REGISTERED NURSE FETAL PM REGISTERED NURSE FETAL Marjorie Justice MD LABORATORY Performing Organization Address City/State/ZIP Code Phon e Number [facility] [address] [place], [place] [address] [address] [facility] LAB (ABNORMAL) A THIN LAYER, DIAGNOSTIC PAP (08/01/2008 12:00 AM REGISTERED NURSE FETAL) Component Value Ref Test Analysis Performed At [facility] Range Method Time Signature PAP LSIL (A) COPATH Copath Report COPATH Patient Name: MARCELINO DALEY MR#: [id number] Specimen #: [id number] Collected: 08/01/2008 Received: 08/02/2008 Reported: 08/07/2008 18:30 Ordering Phy(s): MARJORIE JUSTICE SPECIMEN/STAIN PROCESS: Pap thin layer prep diagnostic (SurePath) ? Pap-Cyto x 1, Reflex HPV x 1 SOURCE: Cervical, endocervical ---- Pap thin layer prep diagnostic (Sure[facility]) SPECIMEN ADEQUACY: Satisfactory for evaluation. -Transformation zone component present. CYTOLOGIC INTERPRETATION: Epithelial Cell Abnormality: ??Squamous Cell: ??Low-grade sq uamous intraepithelial lesion (LSIL) encompassing: ??HPV/ mild dysp lasia/ PEDRO 1. RECOMMENDATIONS: Recommend colposcopy and/ or biopsy. Electronically signed out by: Fredrick Dan M.D. Processed and screened at [facility] CLINICAL HISTORY: LMP: 07/19/08 Previous abnormal pap: LSIL Date of Last Pap: 02/15/08, Cryotherapy, TESTING LAB LOCATION: [facility] [address] [place], [place] ??[address] COLLECTION SITE: Client: ??[facility] Location: RIOB (R) Specimen (Source) Anatomical Collection Method Collection Time Re ceived Time Location / / Volume Laterality 08/01/2008 08/02/2008 11:0 0 AM REGISTERED NURSE FETAL Marjorie Justice MD LABORATORY Performing Organization Address City/State/ZIP Code Phon e Number [place] documented in this encounter Visit Diagnoses Diagnosis Papanicolaou smear of cervix with low gr nella squamous intraepithelial lesion (LGSIL) - Primary Frequency of urination and polyuria Urinary frequency Mild dysplasia of cervix documented in this encounter Care Teams Chair And Couch Maker Relationship Specialty Start Date End Date Adal Kincaid MD PCP - General 05/05/03 01/28/12 [address] [place] [address] documented as of this encounter
--- OUTSIDE RECORDS SUMMARY | 2022-06-06 21:09 | XMS_ITS | Encounter Summary ---
:1985 Author Organization [facility] Address [address] [place] [address]. [place] [address] Care Team Providers Name Role Phone Adal Lawrence MD Primary Care Provider [phone] Reason for Visit Reason Comments Physical Encounter Details Date Type Department Care Team Description 02/15/[address] [facility] [place], Routine Ph ysical Examination (Primary Dx); [facility] [place] Adal Moreira MD Screen for STD (Sexually Transmitted Dis ease) [address] [address] [place], [place] [phone] (Wo rk) [address] [phone] Social History Tobacco Use Types Packs/Day Years [...] you attend catholic or Patient refused 2021 christianity services? Do [...] Sign Reading Time Taken Comments Blood Pressure 92/64 02/15/2008 8:00 AM CDT Pulse 80 02/15/2008 8:00 AM CDT Temperature - - Respiratory Rate - - Oxygen Saturation - - Inhaled Oxygen Concentration - - Weight 49.5 kg (109 lb 1.6 oz) 02/15/2008 8:00 AM CDT Height 160 cm (5' 3) 02/15/2008 8:00 AM CDT Body Mass Index 19.33 02/15/2008 8:00 AM CDT documented in this encounter Progress Notes Norm Lawrence - 02/15/2008 8:20 AM CDT pt is a 22 year old female who is seen here to day for physical,also requesting pap and pelvic. last pap was 12/31,no abnormal pap in the past. Pt also wants to be tested for STD's. Needs refills on BCPills. PAST MED HISTORY - No past medical history on file. PAST SURGICAL HISTORY- Past Surgical History Procedure Date ??? Nonspecific procedure rt brest biopsy,benign SOC HISTORY- History Social History ??? Marital Status: Single Spouse Name: N/A Number of Children: N/A ??? Years of Education: N/A Occupational History ??? Not on file. Social History Main Topics ??? Tobacco Use: Never ??? Alcohol Use: Yes Occaisional ??? Drug Use: No ??? Sexually Active: Yes -- Male partner(s) Control/ Protection: Pill Other Topics Concern ??? Not on file Social History Narrative ??? No narrative on file FAMILY HISTORY- Family History Problem Relation ??? Arthritis Mother degenerative in knees ??? Lipids Mother ??? Lipids Father ??? Family History Negative Sister ??? Family History Negative Brother ??? Breast CA Other paternal aunt MEDS - Current outpatient prescriptions Medication Sig ??? TRI-SPRINTEC 0.035 MG OR TABS 1 TABLET DAILY REVIEW OF SYSTEMS- GENERAL:negative HEENT-NEGATIVE CARDIO VASCULAR-negative RESPITORY-negative ABDOMEN-negative GENITO URINARY-negative MUSCULOSKELETAL negative PSYCH negative MOLDED PARTS INSPECTOR:negative ENDO;negative PHYSICAL EXAMINATION- Blood pressure 92/64, pulse 80, height 5' 3 (1.6 m), weight 109 lb 1.6 oz (49.487 kg), last menstrual period 02/01/2008.. GENERAL:healthy, alert and no distress HEENT: pupils equal and reactive to light and accommodation, TMs clear, oropharynx clear CVS: regular rate and rhythm with normal S1, S2 ; no murmur, rub or gallops RESP: Normal - Clear to auscultation without rales, rhonchi, or wheezing. ABD: no organomegaly, bowel sounds normal, soft, non-tender BREAST :Breasts are symmetric. No dominant, discrete, fixed or suspicious masses are noted. No skin or nipple changes or axillary nodes. Self exam is taught and encouraged.. :Vagina and vulva are normal; no discharge is noted. Cervix normal. Wet prep done,cx done. Adnexa normal in size without masses or tenderness.PAP obtained,no cervical motion tenderness. EXT:Foot and ankle exam is normal. Color and temperature of the feet is normal. Peripheral pulses are palpable.. MOLDED PARTS INSPECTOR:Cranial nerves 2-12 intact, motor strength intact, reflexes normal ASSESSMENT & PLAN : V70.0F Routine Physical Examination (primary encounter diagnosis) Plan: A THIN LAYER PAP SCREEN, ALANINE AMINO (ALT) (SGPT), A.M.A. LIPID PANEL, A.M.A. BASIC METABOLIC PANEL V74.5H Screen for STD (Sexually Transmitted Disease) Plan: CHLMYD TRACH, DNA, AMP PROBE, N.GONORRHOEAE, DNA, (GC), HIV 1 & 2, SCREEN, ANTI-TREPONEMIA EIA, A WET PREP documented in this encounter Nursing Notes 02/15/2008 8:00 AM CDT >> WHITNEY Aguirre Feb 15, 2008 8:17 AM Marcelino Daley presents for a fasting physical. Last pap - wnl. Would like STD check. Denies symptoms/exposure. Initial BP 92/64 Pulse 80 Ht 5' 3 (1.6 m) Wt 109 lb 1.6 oz (49.487 kg) LMP 02/01/2008 Body mass index is 19.33 kg/(m^2). BP completed using cuff size: regular documented in this encounter Plan of Treatment Not on filedocumented as of this encounter Procedures Procedure Name Priority Date/Time Associated Diagnosis Comme nts CL AFF Routine 02/15/2008 9:13 AM Screen for STD Results for this N.GONORRHOEAE, DNA CDT (Sexually procedure are in AMP PROBE Transmitted Disease) the res ults section. CL AFF CHLMYD Routine 02/15/2008 9:13 AM Screen for STD Result s for this TRACH, DNA, AMP CDT (Sexually procedure ar e in PROBE Transmitted Disease) the res ults section. HCL WET PREP Routine 02/15/2008 9:13 AM Screen for STD Results for this CDT (Sexually procedure are i n Transmitted Disease) the res ults section. HCL VDRL TITER CSF Routine 02/15/2008 8:37 AM Screen for STD R esults for this CDT (Sexually procedure are i n Transmitted Disease) the res ults section. HCL BASIC METABOLIC Routine 02/15/2008 8:37 AM Routine Physica l Results for this PANEL CDT Examination procedure are i n the results section. HCL HIV 1 & 2 Routine 02/15/2008 8:37 AM Screen for STD Result s for this ANTIBODY CDT (Sexually procedure are i n Transmitted Disease) the res ults section. HCL ALT Routine 02/15/2008 8:37 AM Routine Physical Resul ts for this CDT Examination procedure are i n the results section. CL AFF A.M.A. LIPID Routine 02/15/2008 8:37 AM Routine Physica l Results for this PANEL CDT Examination procedure are i n the results section. HCL PAP THIN LAYER Routine 02/15/2008 12:00 AM Routine Physica l Results for this SCREEN CDT Examination procedure are i n the results section. documented in this encounter Results A WET PREP (02/15/2008 9:13 AM CDT) [facility] Method Time Signature Specimen Vagina [facility] Description [facility] Wet Prep No Trichomonas seen [place] No yeast seen [place] No clue cells seen CLINIC LAB Report status FINAL [place] 02/15/2008 [facility] Specimen Anatomical Collection Method Collection Time Receive d Time (Source) Location / / Volume Laterality 02/15/2008 9:13 AM 8 9:18 CDT AM CDT Adal Lawrence MD LABORATORY Performing Organization Address City/State/ZIP Code Phon e Number [facility] [address] [place], [place] [address] [facility] N.GONORRHOEAE, DNA, (GC) (02/15/2008 9:13 AM CDT) Component Value Ref Test Analysis Performed At [facility] Method Time Signature Specimen Vagina [facility] LAB N Gonorrhea Negative for N. gonorrhoeae rRNA by antique finisher mediated amplification. [facility] PCR A negative result by transc ription mediated amplification does not preclude the [place] presence of N. gonorrhoeae infection because re sults are dependent on proper CAMPUS LABS and adequate collection, absence of inhibitors, and suffici ent rRNA to be detected. Specimen Anatomical Collection Method Collection Time Receive d Time (Source) Location / / Volume Laterality 02/15/2008 9:13 AM 8 9:18 CDT AM CDT Adal Lawrence MD LABORATORY Performing Organization Address City/[facility]/ZIP Code Phon e Number [facility] [address] LAB [facility] LABS CHLMYD TRACH, DNA, AMP PROBE (02/15/2008 9:13 AM CDT) Component Value Ref Test Analysis Performed At [facility] Method Time Signature Specimen Vagina [facility] LAB Chlamydia Negative for C. trachomatis rRNA by antique finisher mediated amplification. [facility] Trachomatis A negative result by transc ription mediated amplification does not preclude the [place] PCR presence of C. trachomatis infection because results are dependent on proper CAMPUS LABS and adequate collection, absence of inhibitors, and suffici ent rRNA to be detected. Specimen Anatomical Collection Method Collection Time Receive d Time (Source) Location / / Volume Laterality 02/15/2008 9:13 AM 8 9:18 CDT AM CDT Adal Lawrence MD LABORATORY Performing Organization Address City/State/ZIP Code Phon e Number [facility] [address] LAB [facility]S ANTI-TREPONEMIA EIA (02/15/2008 8:37 AM CDT) Analysis Performed At [facility] Signature Treponema Negative NEG [facility] pallidum [facility] [place] LABS Specimen Anatomical Collection Method Collection Time Receive d Time (Source) Location / / Volume Laterality 02/15/2008 8:37 AM 8 8:42 CDT AM CDT Adal Lawrence MD LABORATORY Performing Organization Address City/State/ZIP Code Phon e Number [facility] [address] LABS HIV 1 & 2, SCREEN (02/15/2008 8:37 AM CDT) Analysis Performed At Patho logist Time Signature HIV 1&2 Negative NEG [facility] Antibody [facility] LABS Specimen Anatomical Collection Method Collection Time Receive d Time (Source) Location / / Volume Laterality 02/15/2008 8:37 AM 8 8:42 CDT AM CDT Adal Lawrence MD LABORATORY Performing Organization Address City/[facility]/ZIP Code Phon e Number [facility] [address] [place], [place] [phone] [place] [address] LABS A.M.A. BASIC METABOLIC PANEL (02/15/2008 8:37 AM CDT) P athologist Signature Sodium 142 133 - 144 [place] mmol/L CLINIC LAB Potassium 4.4 3.4 - 5.3 [place] mmol/L CLINIC LAB Chloride 104 94 - 109 [place] mmol/L [facility]INIC LAB Carbon Dioxide 23 20 - 32 [place] mmol/L [facility] LAB Anion Gap 14 6 - 17 [place] mmol/L [facility] LAB Glucose 79 60 - 99 [place] mg/dL CLINIC LAB Urea Nitrogen 12 5 - 24 [place] mg/dL CLINIC LAB Creatinine 0.86 0.52 - [place] 1.04 mg/dL CLINIC LAB Comment: New IDMS-traceable calibration beginning 11/25/07 GFR Estimate 82 >60 mL/min/1.7m2 [place] GFR Estimate If Black >90 >60 mL/min/1.7m2 [facility] LAB Calcium 9.4 8.5 - 10.4 mg/dL [place] Specimen Anatomical Collection Method Collection Time Receive d Time (Source) Location / / Volume Laterality 02/15/2008 8:37 AM 07/22/200 8 8:42 CDT AM CDT Adal [place] MD LABORATORY Performing Organization Address City/[facility]/ZIP Code Phon e Number [facility] [address] [place] [address] [phone] [facility] LAB A.M.A. LIPID PANEL (02/15/2008 8:37 AM CDT) athologist Signature Cholesterol 192 0 - 200 [facility] mg/dL CLINIC LAB Comment: LDL Cholesterol is the primary guide to therapy: LDL-cholesterol goal in high risk patients is <100 mg/dL and in very high risk patients is <70 mg/dL. The NCEP recommends further evaluation of: patients with cholesterol <200 mg/dL if additional risk factors are present, cholesterol >240 mg/dL, triglycerides >150 mg/dL, or HDL <40 mg/dL. Triglycerides 89 0 - 150 mg/dL [facility] LAB HDL Cholesterol 71 50 - 110 mg/dL [facility] LDL Cholesterol Calculated 103 0 - 129 mg/dL [facility] Comment: LDL Cholesterol is the primary guide to therapy: LDL-cholesterol goal in high risk patients is <100 mg/dL and in very high risk patients is <70 mg/dL. VLDL-Cholesterol 18 0 - 30 mg/dL [facility] LAB Cholesterol/HDL Ratio 2.7 0.0 - 5.0 [facility] Specimen Anatomical Collection Method Collection Time Receive d Time (Source) Location / / Volume Laterality 02/15/2008 8:37 AM 8 8:42 CDT AM CDT Adal Lawrence MD LABORATORY Performing Organization Address City/State/ZIP Code Phon e Number [facility] [place] [address] [facility] [place] [place] [address] [phone] [facility] ALANINE AMINO (ALT) (SGPT) (02/15/2008 8:37 AM CDT) P athologist Signature ALT 22 0 - 50 U/L [facility] Specimen Anatomical Collection Method Collection Time Receive d Time (Source) Location / / Volume Laterality 02/15/2008 8:37 AM 07/22/200 8 8:42 CDT AM CDT Adal Lawrence MD LABORATORY Performing Organization Address City/State/ZIP Code Phon e Number [address] [address] [facility] LAB (ABNORMAL) A THIN LAYER PAP SCREEN (02/15/2008 12:00 AM CDT) Component Value Ref Test Analysis Performed At [facility] Range Method Time Signature PAP LSIL (A) COPATH Copath Report COPATH Patient Name: MARCELINO DALEY MR#: [id number] Specimen #: [id number] Collected: 02/15/2008 Received: 02/15/2008 Reported: 02/18/2008 07:39 Ordering Phy(s): NORM [place] SPECIMEN/STAIN PROCESS: Pap thin layer prep screening (SurePath) ? Pap-Cyto x 1, Reflex HPV x 1 SOURCE: Cervical, endocervical ---- Pap thin layer prep screening (SurePath) SPECIMEN ADEQUACY: Satisfactory for evaluation. -Transformation zone component present. CYTOLOGIC INTERPRETATION: Epithelial Cell Abnormality: ??Squamous Cell: ??Low-grade sq uamous intraepithelial lesion (LSIL) encompassing: ??HPV/ mild dysp lasia/ [place] 1. Electronically signed out by: Dominick Segura M.D. [facility]INICAL HISTORY: LMP: 02-01-08 Oral Control Pill, Previous normal pap Date of Last Pap: 01-22-07, TESTING LAB LOCATION: [address] ??[id number] COLLECTION SITE: Client: ??[facility] Location: RIIM (R) Specimen (Source) Anatomical Collection Method Collection Time Re ceived Time Location / / Volume Laterality 02/15/2008 02/15/2008 8:30 PM CDT Adal Lawrence MD LABORATORY Performing Organization Address City/State/ZIP Code Phon e Number [place] documented in this encounter Visit Diagnoses Diagnosis Routine physical examination - Primary Routine general medical examination at a health care facility Screen for STD (sexually transmitted dis ease) Screening examination for venereal disea se documented in this encounter Care Teams Director Adult Relationship Specialty Start Date End Date Adal [place] MD PCP - General 05/05/03 01/28/12 [address] [place] [address] documented as of this encounter
--- OUTSIDE RECORDS SUMMARY | 2022-06-06 21:09 | XMS_ITS | Encounter Summary ---
:1985 Author Organization [facility] Address [address] [place] [address]. [place] [address] Care Team Providers Name Role Phone Adal [place] MD Primary Care Provider [phone] Reason for Visit Reason Onset Date Comments Medication Problem 06/30/2005 lost BCP's Encounter Details Date Type Department Care Team Description 06/30/2005 Refill [facility] Adal [place] Medication Problem Clinic Cezar Moreira MD (lost BCP's) [address] [place] [place] [address] [place], [place] [phone] (Wo rk) [address] [phone] Social History Tobacco Use Types Packs/Day Years Used Date Smoking Tobacco: Never Alcohol Use Standard Drinks/Week Comments No 0 (1 standard drink = 0.6 oz pure alcoho l) Alcohol Habits Answer Date Recorded How often [...] attend roman catholic or Patient refused 2021 latter-day services? Do [...] this encounter Miscellaneous Notes Telephone Encounter - Lb Monson - 06/30/2005 4:04 PM CST Pt informed of Rx. LLECTUAL PROPERTY LAWYER Telephone Encounter - Cindy Hawkins - 06/30/2005 1:39 PM CST Left message for pt to return call. LLECTUAL PROPERTY LAWYER Telephone Encounter - Tenzin [place] - 06/30/2005 12:59 PM CST I spoke to obgyn and was advised to take 2 pills at 9 pm today (her usual time)and 1 daily from tomorrow,no need for morning after pill. LLECTUAL PROPERTY LAWYER Telephone Encounter - Shweta Trujillo - 06/30/2005 8:34 AM CST Pt calling--was to have started her BCP's last evening, but could not find them. She and S.O. has relations yesterday, so now she is wondering if she needs the morning after pill or not, or just to begin her BCP's again. What do you say? She is not an established OB pt, so they will not address thisissue. LLECTUAL PROPERTY LAWYER documented in this encounter Plan of Treatment Not on filedocumented as of this encounter Visit Diagnoses Diagnosis General counseling for initiation of oth er contraceptive measures documented in this encounter Care Teams [employer] Relationship Specialty Start Date End Date Adal [place] MD PCP - General 05/05/03 01/28/12 [place] [address] documented as of this encounter
--- OUTSIDE RECORDS SUMMARY | 2022-06-06 21:09 | XMS_ITS | Encounter Summary ---
:1985 Author Organization [place] Address [address] [place] [address]. [place] [address] Care Team Providers Name Role Phone Adal [place] MD Primary Care Provider [phone] Reason for Visit Reason Onset Date Comments Patient Request 07/02/2005 Is her estrogen cau ght up in her cycle now? Encounter Details Date Type Department Care Team Description 07/02/[address] [facility] Adal [place] Patient Request (Is Clinic Cezar Moreira MD her estrogen caught [address] [place] [address] [place] [address] now?) [place], [place] [phone] (Wo rk) [address] [phone] Social History Tobacco Use Types Packs/Day Years [...] you attend yazidism or Patient refused 2021 mosque services? Do [...] this encounter Miscellaneous Notes Telephone Encounter - Doreen Barnes - 07/02/2005 3:52 PM CST Called by Dr. [place]. M TRAP MAN Telephone Encounter - Tenzin [place] - 07/02/2005 3:47 PM CST spoke to obgyn ,no need for mornign after pill at this time.pt was informed.advised to usecondoms if she is concerned. M TRAP MAN Telephone Encounter - Lb Monson - 07/02/2005 3:37 PM CST Pt calling re:: issue below,, requests call from PCP on cell #[phone]. M TRAP MAN Telephone Encounter - Shwetha Prabhakar - 07/02/2005 3:12 PM CST PMD spoke with Tameka in the past couple of days relative to lost BCP RX. Tameka now wonders since she and her boyfriend had sex last night,if maybe ,they should have used acondom at that point?And,if so,should she be getting the morning after pill now because she did not use a condom. Tameka is uncomfortable with the fact that she took 2 pills(06/30/05) to make up for the Rx she lost.She is not confident that she(or her estrogen supply) can be totally relyed upon as when she starts her pills on time.Tameka does understand that even the BCP is not 100% safe and that a condom would make it even more safe. Please advise Tameka as to what her estrogen supply is now,even though she had to catch up on herpills by taking 2 on 06/30/05.alvaro prabhakar RN M TRAP MAN documented in this encounter Plan of Treatment Not on filedocumented as of this encounter Visit Diagnoses Not on filedocumented in this encounter Care Teams Wireless Construction Manager Relationship Specialty Start Date End Date Adal [place] MD PCP - General 05/05/03 01/28/12 [address] [place] [address] documented as of this encounter
--- OUTSIDE RECORDS SUMMARY | 2022-06-06 21:09 | XMS_ITS | Encounter Summary ---
:1985 Author Organization [facility] Address [address] [place] [address]. [place] [address] Care Team Providers Name Role Phone Adal [place] MD Primary Care Provider [phone] Reason for Visit Reason Onset Date Comments Refill Request 01/09/2006 ortho tri-cycleethan Encounter Details Date Type Department Care Team Description 01/09/2006 Refill [facility] Adal [place] Refill Request (ortho Clinic Cezar Moreira MD tri-cycleethan) [address] [place] [address] [place] [address] [place], [place] [phone] (Wo rk) [address] [phone] Social History Tobacco Use Types Packs/Day Years [...] you attend restorationism or Patient refused 2021 religion services? Do [...] this encounter Miscellaneous Notes Telephone Encounter - Nathaniel November - 01/09/2006 8:55 AM CDT last OV 11/26/04 Last pap 10/25/04 Has appointment scheduled with PMD 01/21/05 Authorized refills per [facility] protocol documented in this encounter Plan of Treatment Not on filedocumented as of this encounter Visit Diagnoses Diagnosis General counseling for initiation of oth er contraceptive measures documented in this encounter Care Teams Cartography Technician Relationship Specialty Start Date End Date Adal [place] MD PCP - General 05/05/03 01/28/12 [address] [place] [address] documented as of this encounter
--- OUTSIDE RECORDS SUMMARY | 2022-06-06 21:09 | XMS_ITS | Encounter Summary ---
:1985 Author Organization [place] Address [address] [place] [address]. [place] [address] Care Team Providers Name Role Phone Adal Kincaid MD Primary Care Provider [phone] Reason for Visit Reason Comments Colposcopy Encounter Details Date Type Department Care Team Description 02/24/2008 Office Visit [facility] Hector Justice LGSI L on Pap Smear [facility] (Primary Dx) [place] XXX RETIRED XXX [address] [place] [address] [place] [address] [address] [address] [place], [place] [phone] [address] (Work) [phone] Social History Tobacco Use Types Packs/Day Years [...] you attend gnosticism or Patient refused 2021 methodist services? Do [...] Sign Reading Time Taken Comments Blood Pressure 112/60 02/24/2008 10:15 AM CDT Pulse - - Temperature - - Respiratory Rate - - Oxygen Saturation - - Inhaled Oxygen Concentration - - Weight 49.6 kg (109 lb 4.8 oz) 02/24/2008 10:15 AM CDT Height - - Body Mass Index 19.36 02/15/2008 8:00 AM CDT documented in this encounter Progress Notes Hector Justice - 03/03/2008 9:54 AM CDT Informed Consent signed: Verbal INDICATION:LSIL Pap Patient's last menstrual period was 01/26/2008. Current Control Method: Tri -Sprintec Previous paps: normal Previous Biopsy?: no Previous Cryo?: no Previous LEEP?: no Previous Laser?: no COLPOSCOPIC EXAM: Satisfactory. No mosaic, no white area, no stippling, Lugol's negative Examined without staining?: yes Examined with Acetic Acid staining?: yes Examined with Lugol's Iodine staining?: yes Colposcopic Impression: minimal dysplasia or less Post Colposcopy Instructions given?: yes F/U visit scheduled for one week documented in this encounter Nursing Notes 02/24/2008 10:15 AM CDT >> MARCE KELLER [facility] Feb 24, 2008 10:30 AM Marcelino Daley presents for colp.Pt had LSIL pap 01/30 with IM.Marce Keller MA Initial BP 112/60 Wt 109 lb 4.8 oz (49.578 kg) LMP 01/26/2008 Estimated Body mass index is 19.36kg/(m^2) as calculated from: Height of 5' 3 (1.6 m) as of 02/15/08 Weight of 109 lb 4.8 oz (49.578 kg) as of this encounter. BP completed using cuff size: regular documented in this encounter Plan of Treatment Not on filedocumented as of this encounter Procedures Procedure Name Priority Date/Time Associated Diagnosis Comme nts HC COLP Routine 03/03/2008 9:54 AM LGSIL on Pap Smear CERVIX/UPPER VAGINA CDT W BX CERVIX/ENDOCERV CURETT CL AFF SURGICAL Routine 02/24/2008 12:00 AM LGSIL on Pap Smear Results for this PATHOLOGY CDT procedure are i n the results section. documented in this encounter Results SURGICAL PATHOLOGY (02/24/2008 12:00 AM CDT) Component Value Ref Test Analysis Performed At [facility] Range Method Time Signature Copath Report Patient Name: MARCELINO DALEY MR#: [id number] Specimen #: [id number] Collected: 02/24/2008 Received: 02/25/2008 Reported: 02/28/2008 16:32 Ordering Phy(s): HECTOR JUSTICE SPECIMEN(S): A: Cervical biopsy, 12 o'clock B: Cervical biopsy, 3 o'clock C: Cervical biopsy, 6 o'clock D: Cervical biopsy, 9 o'clock E: Endocervical curettings FINAL DIAGNOSIS: A. ??Cervical biopsy, 12:00 - Focal mild dysplasia (PEDRO-1). B. 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 C. ??Cervical biopsy, 6:00 - Focal evidence of HPV (PEDRO-1). D. ??Cervical biopsy, 9:00 - Focal mild dysplasia and HPV ef fect (PEDRO-1). E. ??Endocervical curettings - Sparse small fragments of hermila ign endocervical mucosa. COMMENT: The most recent Pap smear is reviewed ([id number] from 008) and the presence of occasional cells consistent with mild dysplasia is confirmed. ??The biopsy and Pap smear show good correlation. Electronically signed out by: Fredrick Dan M.D. CLINICAL HISTORY: LSIL Pap. GROSS: A. ??The specimen, labeled cervical biopsy at 12 o'clock, consists of a single firm biopsy fragment of 3.5 mm. ??The entire specimen is embedded in one cassette. B. ??The specimen, labeled cervical biopsy at 3 o'clock, c onsists of a single biopsy fragment of 3.5 mm. ??The entire specimen is e mbedded in one cassette. C. ??The specimen, labeled cervical biopsy at 6 o'clock, c onsists of two biopsy fragments, one measuring about 3 mm and the other about 1 mm and is soft. ??The entire specimen is embedded in one casset te. D. ??The specimen, labeled cervical biopsy at 9 o'clock, c onsists of a single somewhat soft friable biopsy fragment of about 4 mm. ??The entire specimen is embedded in one cassette. E. ??The specimen, labeled endocervical curettings, consis ts of some flecks of mostly blood clot and mucus. ??The entire specimen is filtered and embedded in one cassette. ??JKW/adrien MICROSCOPIC: A. ??Sections of cervical biopsy from 12:00 show exocervical mucosa with underlying endocervical glands. ??There is some focal nuclea r change and loss in maturation consistent with mild dysplasia. ??There i s also mild chronic inflammation at the endocervical end of the biopsy. B. ??Sections of cervical biopsy at 3:00 also show exocervic al mucosa at the surface with evidence of HPV change and some minimal dys plastic nuclear changes, as well. C. ??Sections of cervical biopsy at 6:00 show exocervical mu cosa with a squamous columnar junction and some chronic inflammation at this point. Most of the surface is normal, but near the squamocolumnar j unction, there is evidence of HPV changes. D. ??Sections of cervical biopsy at 9:00 show larger areas o f koilocytotic changes consistent with HPV effect and focally consistent with mild dysplasia near squamocolumnar junction. E. ??Sections of endocervical curettings show a few tiny fra gments of benign endocervical mucosa just occasionally containing some stroma with chronic inflammatory cells. ??No exocervical squamous mucosa is seen and no evidence of dysplasia is seen. OSCAR/renu 02-28-08 TESTING LAB LOCATION: [address] ??[id number] COLLECTION SITE: Client: [facility] Location: RIOB (R) Specimen (Source) Anatomical Collection Method Collection Time Re ceived Time Location / / Volume Laterality 02/24/2008 02/25/2008 10:1 8 AM CDT Hector Justice MD LABORATORY Performing Organization Address City/State/ZIP Code Phon e Number COPATH documented in this encounter Visit Diagnoses Diagnosis Papanicolaou smear of cervix with low gr nella squamous intraepithelial lesion (LGSIL) - Primary documented in this encounter Care Teams Morning Babysitter Relationship Specialty Start Date End Date Adal Kincaid MD PCP - General 05/05/03 01/28/12 [address] [place] [address] documented as of this encounter
--- OUTSIDE RECORDS SUMMARY | 2022-06-06 21:09 | XMS_ITS | Encounter Summary ---
:1985 Author Organization [place] Address [facility] [address] Care Team Providers Name Role Phone Adal Kincaid MD Primary Care Provider [phone] Reason for Visit Reason Comments RECHECK f/u U/C for cough last eveni ng Encounter Details Date Type Department Care Team Description 10/12/2006 Office Visit [facility], ACUTE PHAR YNGITIS (Primary Dx); Clinic Morrison MD Monico ACUTE MAXILLARY SINUSITIS; [id number] [facility] ACUTE URI MULT SITES NEC; [place], [place] [address] [phone] [place] [address] (Wo rk) Social History Tobacco Use Types [...] you attend pentecostalism or Patient refused 2021 episcopalian services? Do [...] Sign Reading Time Taken Comments Blood Pressure 112/72 10/12/2006 1:45 PM CDT Pulse 74 10/12/2006 1:45 PM CDT Temperature 36.9 ??C (98.4 ??F) 10/12/2006 1:45 PM CDT Respiratory Rate 12 10/12/2006 1:45 PM CDT Oxygen Saturation - - Inhaled Oxygen Concentration - - Weight 48.1 kg (106 lb) 10/12/2006 1:45 PM CDT Height 160 cm (5' 3) 10/12/2006 1:45 PM CDT Body Mass Index 18.78 10/12/2006 1:45 PM CDT documented in this encounter Progress Notes Moinco Weeks - 10/12/2006 2:46 PM CDT SUBJECTIVE: Tameka Grissom is a 21 year old female who is here today with: CC:Sore Throat, Cough and Coldand symptoms of no fever, no chills and headache. Pt has nasal drinage which is yellow in colour. Pt has cough with phlegm which is yellow in colour. Pt also has low back pain on lt side since 1 day. Pt was seen at urgent care yesterday, was given robitussin ac Serious symptoms include: none applicable. Onset of symptoms was 6 days ago. Course of illness is worsening. none applicable exposures. Treatment measures tried include OTC meds. All Medications, Allergies and Histories reviewed and current as of todays visit. OBJECTIVE: BP 112/72 Pulse 74 Temp (Src) 98.4 (Oral) Resp 12 Ht 5' 3 (1.60m) Wt 106 lbs (48.1kg) GENERAL: healthy, alert and mild distress EYES:Lids and Conjunctival normal EAR: CANAL and Left TM is normal: no effusions, no erythema, and normal landmarks, CANAL and Right TM is normal: no effusions, no erythema, and normal landmarks. NOSE: clear rhinorrhea SINUS: tender in both maxillary & ethmoidal sinuses OROPHARYNX:normal. NECK: normal, supple and no adenopathy LUNGS:normal HEART :regular rate and rhythm and no murmurs, clicks, or gallops ABDOMEN:non-tender BACK: pain in lt low back at lumbar area, no CVA tenderness, normal spine exam, normal gait SKIN:Warm, Dry and No Rash ASSESSMENT/PLAN: 462 ACUTE PHARYNGITIS (primary encounter diagnosis) Note: Rapid strep test is negative. Plan: STREP GROUP A AG (RAPID), BETA STREP CONFIRM salt water gargles, fluids, motrin prn 461.0 ACUTE MAXILLARY SINUSITIS Plan: ZITHROMAX 250 MG OR CAPS Fluids, humidifier, vicks vapourizer, sudafed, motrin prn, rest 465.8 ACUTE URI MULT SITES NEC Plan: fluids, rest, vicks vapourizer, sudafed, tylenol prn 847.2 [place] Note: Most likely MSK Plan: IBUPROFEN 800 MG OR TABS follow up if symptoms get worse documented in this encounter Nursing Notes 10/12/2006 1:45 PM CDT >> TAQUERIA LIMON 10/12/2006 2:17 pm Pt requested strep screen. Taqueria Limon LPN >> TAQUERIA LIMON 10/12/2006 2:12 pm Patient presents with: RECHECK - f/u U/C for cough last evening Initial BP 112/72 Pulse 74 Temp (Src) 98.4 (Oral) Resp 12 Ht 5' 3 (1.60m) Wt 106 lbs (48.1kg) Body mass index is 18.78 kg/(m^2). BP completed using cuff size regular Taqueria Limon LPN documented in this encounter Plan of Treatment Not on filedocumented as of this encounter Procedures Procedure Name Priority Date/Time Associated Diagnosis Comme nts HCL BETA STREP Routine 10/12/2006 2:19 PM Acute Pharyngitis Re sults for this CONFIRM CDT procedure are i n the results section. HCL STREP GROUP A Routine 10/12/2006 2:19 PM Acute Pharyngitis Results for this AG (RAPID) CDT procedure are i n the results section. documented in this encounter Results BETA STREP CONFIRM (10/12/2006 2:19 PM CDT) Component Value Ref Test Analysis Performed At [facility] gist Range Method Time Signature Specimen Throat [facility] Culture Micro No Beta PARROTT Streptococcus [facility] Report status FINAL [id number] [facility] Specimen Anatomical Collection Method Collection Time Receive d Time (Source) Location / / Volume Laterality 10/12/2006 2:19 PM 200 7 2:24 CDT PM CDT Monico Weeks MD LABORATORY Performing Organization Address [facility] Phon e Number [address] [address] [facility] STREP GROUP A AG (RAPID) (10/12/2006 2:19 PM CDT) Component Value Ref Test Analysis Performed At [facility] Method Time Signature Specimen Throat [facility] Rapid Strep A NEGATIVE: No Group A strepto coccal antigen detected by immunoassay, await PARROTT Screen culture report. [facility] Report status FINAL [id number] [facility] Specimen Anatomical Collection Method Collection Time Receive d Time (Source) Location / / Volume Laterality 10/12/2006 2:19 PM 7 2:24 CDT PM CDT Monico Weeks MD LABORATORY Performing Organization Address City/[facility] Phon e Number [address] [address] [facility] documented in this encounter Visit Diagnoses Diagnosis Acute pharyngitis - Primary Acute maxillary sinusitis Acute upper respiratory infections of ot her multiple sites Sprain of lumbar region documented in this encounter Care Teams Pool Technician Relationship Specialty Start Date End Date Adal Kincaid MD PCP - General 05/05/03 01/28/12 [address] [place] [address] documented as of this encounter
--- OUTSIDE RECORDS SUMMARY | 2022-06-06 21:09 | XMS_ITS | Encounter Summary ---
:1985 Author Organization [place] Address [facility] [place] [address] Care Team Providers Name Role Phone Adal Kincaid MD Primary Care Provider [phone] Jose Dumont MD Primary Care Provider Deedee, Annalisa Peacock APRN [facility] Primary Care Provider [phone] Leonor Burgos MD Unavailable Deedee, Annalisa Peacock APRN [facility] Unavailable Deedee, Annalisa Peacock APRN [facility] Unavailable Mukul Rivas PA-C Unavailable [phone] Deedee, Annalisa Peacock APRN [facility] Unavailable Mukul Rivas PA-C Unavailable [phone] Deedee, Annalisa Peacock APRN [facility] Unavailable Jacob Carmona MD Unavailable [phone] Leonor Burgos MD Unavailable Deedee, Annalisa Peacock APRN [facility] Unavailable Reason for Visit Reason Onset Date Comments Refill Request 09/22/2005 Encounter Details Date Type Department Care Team Description 09/22/2005 [facility] Mike Kincaid, Refill Request Cezar ROLLINS [address] [place] [address] [place] [address] [phone] Social History Tobacco Use Types Packs/Day Years [...] you attend confucianism or Patient refused 2021 quaker services? Do [...] er contraceptive measures documented in this encounter Additional Health Concerns Infection Onset Date Last Indicated Resolved Time Rule Out COVID-19 01/14/2021 01/14/2021 01/15/2021 3:3 2 PM CDT Rule Out C-difficile 02/26/2022 02/26/2022 02/27/2022 1:52 PM CDT C-difficile 02/26/2022 02/26/2022 03/28/2022 11:41 PM CDT documented as of this encounter Care Teams Machine Molder Relationship Specialty Start Date End Date Adal Kincaid PCP - General 05/05/0301/27 MD [address] [place] [address] Jose Dumont MD PCP - General Family Practice 01/29/12 03/20/15 [address] [place] [address] Annalisa Mark, PCP - General Nurse Practitioner 03/22/15 PROJECT FINANCIAL ANALYST [facility] [address] [place] [address] Leonor Burgos PCP - Assigned PCP 12/13/17 1 08/05/17 [place] [address] [place] [address] Annalisa Mark, PCP - Assigned PCP 06/06/18 09/28/18 PROJECT FINANCIAL ANALYST [facility] [address] [place] [address] Annalisa Mark, Assigned PCP 06/06/18 9 PROJECT FINANCIAL ANALYST [facility] [address] [place] [address] Mukul Rivas, Assigned PCP 07/03/19 PA-C [address] [place] [address] Annalisa Mark, Assigned PCP 11/20/19 0 PROJECT FINANCIAL ANALYST [facility] [address] [place] [address] Mukul Rivas, Assigned PCP 12/11/19 PA-C [address] [place] [address] Annalisa Mark, Assigned PCP 01/22/20 2 PROJECT FINANCIAL ANALYST [facility] [address] [place], [place] [id number] Jacob Carmona, Assigned OBGYN 05/18/20 Provider [address] [place] [address] Leonor Burgos Assigned PCP 02/22/22 2 MD Joel [address] [place], [place] [id number] Annalisa Mark, Assigned PCP 05/17/22 PROJECT FINANCIAL ANALYST [facility] [address] [place], [place] [id number] documented as of this encounter
--- OUTSIDE RECORDS SUMMARY | 2022-06-06 21:09 | XMS_ITS | Encounter Summary ---
:1985 Author Organization [place] Address [address] [place] [address]. [place] [address] Care Team Providers Name Role Phone Adal Lawrence MD Primary Care Provider [phone] Encounter Details Date Type Department Care Team Description 08/10/2007 Orders Only [facility] DYS URIA (Primary Dx) [facility] [address] [place] [address] Social History Tobacco Use [...] you attend nondenominational or Patient refused 2021 evangelical services? Do [...] documented as of this encounter Progress Notes Tenzin Lawrence - 08/12/2007 2:25 PM MEDIA PRODUCTION MANAGER Addended by: TENZIN LAWRENCE on: 08/12/2007 2:25:31 PM Modules accepted: Orders A PRODUCTION MANAGER Mona Mishra - 08/10/2007 11:06 AM MEDIA PRODUCTION MANAGER Addended by: MONA MISHRA on: 08/10/2007 11:06:49 AM Modules accepted: Orders A PRODUCTION MANAGER documented in this encounter Plan of Treatment Not on filedocumented as of this encounter Procedures Procedure Name Priority Date/Time Associated Diagnosis Comme nts HCL CULTURE, URINE Routine 08/10/2007 11:02 AM Dysuria Re sults for this (MISYS) MEDIA PRODUCTION MANAGER procedure are i n the results section. HCL UA MICRO IF Routine 08/10/2007 10:35 AM Dysuria Resul ts for this POSITIVE MEDIA PRODUCTION MANAGER procedure are i n the results section. CL AFF MICRO Routine 08/10/2007 10:35 AM Results for this EXAM-URINE MEDIA PRODUCTION MANAGER procedure are i n the results section. documented in this encounter Results CULTURE, URINE (MISYS) (08/10/2007 11:02 AM MEDIA PRODUCTION MANAGER) Patholo gist Method Time Signature Specimen Midstream [place] Description Urine [facility] Culture Micro No growth [facility] Report status FINAL [place] 08/12/2007 [facility] Specimen Anatomical Collection Method Collection Time Receive d Time (Source) Location / / Volume Laterality 08/10/2007 11:02 08/10/2007 AM MEDIA PRODUCTION MANAGER 11:07 AM MEDIA PRODUCTION MANAGER Adal Lawrence MD LABORATORY Performing Organization Address City/State/ZIP Code Phon e Number M [facility] [address] [place] [address] [phone] [facility] (ABNORMAL) MICRO EXAM-URINE (08/10/2007 10:35 AM MEDIA PRODUCTION MANAGER) Analysis Performed At Patho logist Time Signature WBC Urine 25-50 (A) 0 - 2 /HPF [facility] RBC Urine O - 2 0 - 2 /HPF [facility] Bacteria Urine Few (A) NEG /HPF [facility] Specimen Anatomical Collection Method Collection Time Receive d Time (Source) Location / / Volume Laterality 08/10/2007 10:35 08/10/2007 AM MEDIA PRODUCTION MANAGER 10:40 AM MEDIA PRODUCTION MANAGER Adal Lawrence MD LABORATORY Performing Organization Address City/[facility]/ZIP Code Phon e [place] [facility] [address] [place], [place] [address] [address] [facility] (ABNORMAL) UA MICRO IF POSITIVE (08/10/2007 10:35 AM MEDIA PRODUCTION MANAGER) [facility] Method Time Signature Color Urine Yellow [facility] Appearance Urine Cloudy [facility] Glucose Urine Negative NEG mg/dL [facility] Bilirubin Urine Negative NEG [facility] Ketones Urine Negative NEG mg/dL [facility] Specific [place] 1.015 1.003 - [place] Urine 1.035 [facility] Blood Urine Trace (A) NEG [facility] pH Urine 7.5 (H) 5.0 - 7.0 [place] pH [facility] Protein Albumin Negative NEG mg/dL [place] Urine [facility] Urobilinogen 0.2 0.2 - 1.0 [place] Urine EU/dL [facility] Nitrite Urine Negative NEG [facility] Leukocyte Large (A) NEG [place] Esterase Urine [facility] Source Midstream [place] Urine [facility] Specimen Anatomical Collection Method Collection Time Receive d Time (Source) Location / / Volume Laterality 08/10/2007 10:35 08/10/2007 AM MEDIA PRODUCTION MANAGER 10:40 AM MEDIA PRODUCTION MANAGER Adal Lawrence MD LABORATORY Performing Organization Address City/[facility]/ZIP Code Phon e [place] [facility] [address] [place], [place] [address] [address] [facility] documented in this encounter Visit Diagnoses Diagnosis Dysuria - Primary documented in this encounter Care Teams Leather Products Supervisor Relationship Specialty Start Date End Date Adal Lawrence MD PCP - General 05/05/03 01/28/12 [address] [place] [address] documented as of this encounter
--- OUTSIDE RECORDS SUMMARY | 2022-06-06 21:09 | XMS_ITS | Encounter Summary ---
:1985 Author Organization [place] Address [address] [place] [address]. [place] [address] Care Team Providers Name Role Phone Adal Kincaid MD Primary Care Provider [phone] Encounter Details Date Type Department Care Team Description 02/21/[address] [facility] Mike Kincaid [place] MD [address] [place] [address] [place], [place] [id number] (Wo rk) Social History Tobacco Use Types [...] or relatives? How often do you attend latter-day or Patient refused 2021 yazidi services? Do you belong to any clubs or No 10/17/2021 organizations such as latter-day groups, unions, fraternal or athletic groups, or [...] on filedocumented in this encounter Care Teams Fountain Supervisor Relationship Specialty Start Date End Date Adal Kincaid MD PCP - General 05/05/03 01/28/12 [place] [address] documented as of this encounter
--- OUTSIDE RECORDS SUMMARY | 2022-06-06 21:09 | XMS_ITS | Encounter Summary ---
:1985 Author Organization [place] Address [address] [place] [address]. [place] [address] Care Team Providers Name Role Phone Adal Kincaid MD Primary Care Provider [phone] Encounter Details Date Type Department Care Team Description 09/04/2005 [facility] RAISA Kincaid IC- [facility] [place] Adal Moreira MD 09/04/05 [address] [place] [id number] [phone] Social History Tobacco Use Types Packs/Day Years [...] you attend methodist or Patient refused 2021 caodaism services? Do [...] on filedocumented in this encounter Care Teams Program Evaluator Relationship Specialty Start Date End Date Adal Kincaid MD PCP - General 05/05/03 01/28/12 [address] [place] [address] documented as of this encounter
--- OUTSIDE RECORDS SUMMARY | 2022-06-06 21:09 | XMS_ITS | Encounter Summary ---
:1985 Author Organization [facility] Address [address] [place], [place] [address]. [place] [address] Care Team Providers Name Role Phone Adal Kincaid MD Primary Care Provider [phone] Reason for Visit Reason Comments Cryotherapy Encounter Details Date Type Department Care Team Description 04/04/2008 Office Visit [facility] Hector Melvin, Mild Dysplasia of [facility] Cervix (Primary Dx) Mu[facility] XXX RETIRED XXX [address] [place] [address] [address] [address] [place], [place] [phone] [address] (Work) [phone] Social History Tobacco Use Types Packs/Day Years [...] you attend zoroastrian or Patient refused 2021 hinduism services? Do [...] Reading Time Taken Comments Blood Pressure 112/60 04/04/2008 1:30 PM CDT Pulse - - Temperature - - Respiratory Rate - - Oxygen Saturation - - Inhaled Oxygen Concentration - - Weight 49.4 kg (109 lb) 04/04/2008 1:30 PM CDT Height - - Body Mass Index 19.31 02/15/2008 8:00 AM CDT documented in this encounter Progress Notes Hector Melvin - 04/04/2008 2:13 PM CDT Here for Cryo because of mild dysplasia in several biopsies of cervix at colposcopy. Cryo: [id number] technique Good application Pt tolerate procedure well Pap in 4 months documented in this encounter Nursing Notes 04/04/2008 1:30 PM CDT >> MARCE Aguirre Apr 04, 2008 1:36 PM Tameka Grissom presents for cryo.Marce Bazzi MA Initial BP 112/60 Wt 109 lb (49.442 kg) LMP 03/29/2008 Estimated Body mass index is 19.31 kg/(m^2) as calculated from: Height of 5' 3 (1.6 m) as of 02/15/08 Weight of 109 lb (49.442 kg) as of this encounter. BP completed using cuff size: regular documented in this encounter Plan of Treatment Not on filedocumented as of this encounter Procedures Procedure Name Priority Date/Time Associated Diagnosis Comme [facility] CAUTERY OF CERVIX, Routine 04/05/2008 12:25 PM Mild Dysplas ia of CRYOCAUTERY CDT Cervix documented in this encounter Visit Diagnoses Diagnosis Mild dysplasia of cervix - Primary documented in this encounter Care Teams Health Facilities Surveyor Relationship Specialty Start Date End Date Adal Kincaid MD PCP - General 05/05/03 01/28/12 [address] [place] [address] documented as of this encounter
--- OUTSIDE RECORDS SUMMARY | 2022-06-06 21:09 | XMS_ITS | Encounter Summary ---
:1985 Author Organization [facility] Address [address] [place] [address]. [place] [address] Care Team Providers Name Role Phone Adal Kincaid MD Primary Care Provider [phone] Reason for Visit Reason Onset Date Comments Lab Result Notice 02/21/2008 Encounter Details Date Type Department Care Team Description 02/21/2008 Telephone [facility] Adal Kincaid Lab Result Notice Clinic Cezar Moreira MD [address] [place], [place] [id number] [phone] Social History Tobacco Use Types Packs/Day Years [...] you attend zoroastrianism or Patient refused 2021 anglican services? Do [...] this encounter Miscellaneous Notes Telephone Encounter - Makenzie Ramirez - 02/21/2008 9:47 AM CDT Pt called inquiring about lab results. Informed pt all labs normal except for pap which showed LSIL with HPV . Per Dr Kincaid's result note informed pt to call for appt with OBGyn for colposcopy. Transferred call to scheduling. documented in this encounter Plan of Treatment Not on filedocumented as of this encounter Visit Diagnoses Not on filedocumented in this encounter Care Teams Return To Vendor Relationship Specialty Start Date End Date Adal Kincaid MD PCP - General 05/05/03 01/28/12 [address] [place] [address] documented as of this encounter
--- OUTSIDE RECORDS SUMMARY | 2022-06-06 21:09 | XMS_ITS | Encounter Summary ---
:1985 Author Organization [facility] Address [address] [place] [address]. [place] [address] Care Team Providers Name Role Phone Adal Kincaid MD Primary Care Provider [phone] Encounter Details Date Type Department Care Team Description 07/02/2005 Telephone [facility] Mike Kincaid [place] MD [address] [place] [address] [place] [address] [phone] Social History Tobacco Use Types Packs/Day Years [...] you attend yarsanism or Patient refused 2021 denominational services? Do [...] on filedocumented in this encounter Care Teams Dean Of Student Services Relationship Specialty Start Date End Date Adal Kincaid MD PCP - General 05/05/03 01/28/12 [address] [place] [address] documented as of this encounter
--- OUTSIDE RECORDS SUMMARY | 2022-06-06 21:09 | XMS_ITS | Encounter Summary ---
:1985 Author Organization [facility] Address [address] [place] [address]. [place] [address] Care Team Providers Name Role Phone Adal Kincaid MD Primary Care Provider [phone] Reason for Visit Reason Comments Consult consult depression/OCD-C/O down moods Depression Encounter Details Date Type Department Care Team Description 10/29/2007 Office Visit [facility] [place] Adal Moreira MD NEC (Primary Dx) [address] [place] [address] [place], [place] [phone] (Wo rk) [address] [phone] Social History Tobacco Use Types Packs/Day Years [...] you attend caodaism or Patient refused 2021 spiritism services? Do [...] Sign Reading Time Taken Comments Blood Pressure 110/72 10/29/2007 1:45 PM CDT Pulse 84 10/29/2007 1:45 PM CDT Temperature - - Respiratory Rate - - Oxygen Saturation - - Inhaled Oxygen Concentration - - Weight 49.4 kg (109 lb) 10/29/2007 1:45 PM CDT Height - - Body Mass Index 19.31 08/23/2007 3:00 PM THREAD DRAWER documented in this encounter Progress Notes Tenzin Kincaid - 10/31/2007 2:46 PM CDT pt is a 22 year old female who is seen here to day with c/o feeling sad,decreased motivation,decreased energy,for 2 months. Diminished interest in activities-yes Appetite is decreased-yes Has become more emotional,cries for no reasons, Does not want to socialize. No suicidal ideation,or thoughts. sleep is disturbed,wakes up frequently at night. some times feels worthless.broke up with boyfriend. Pt also says she has OCD,checks on the door lock several times and etc. No past medical history on file. Past Surgical History Procedure Date ??? Nonspecific procedure rt brest biopsy,benign Current Outpatient Rx Name Route Sig Dispense Refill ??? ZOLOFT 50 MG OR TABS Oral ONE TABLET DAILY 1mth 1 ??? TRI-SPRINTEC 0.035 MG OR TABS Oral 1 TABLET DAILY 3mth 1yr ??? MULTIPLE VITAMINS OR TABS Ros; CONSTITUTIONAL: positive for insomnia. PSYCHIATRIC:depression Blood pressure 110/72, pulse 84, weight 109 lbs (49.4 kg), last menstrual period 10/13/2007. GENERAL:healthy, alert and no distress HEENT-pupils equal and reactive to light and accommodation, oropharynx clear NECK: NEGATIVE RESP: Normal - CTA without rales, rhonchi, or wheezing. CV: regular rate and rhythm with normal S1, S2 ; no murmur, rub or gallops EXT:no peripheral edema, ASSESSMENT AND PLAN- 311 DEPRESSIVE DISORDER NEC Note:OCD Plan:started on ZOLOFT 50 MG OR TABS as directed.explained clearly about the medication,insructions and side effects. F/u in 1 mth. documented in this encounter Nursing Notes 10/29/2007 1:45 PM CDT >> JOSE RIVERA 10/29/2007 1:53 pm Tameka Grissom presents for consult-depression/OCD. Initial BP 110/72 Pulse 84 Wt 109 lbs (49.4kg) LMP 10/13/2007 Estimated Body mass index is 19.31 kg/(m^2) as calculated from: Height of 5' 3 (1.600 m) as of 08/23/07 Weight of 109 lbs (49.442 kg) as of this encounter. BP completed using cuff size: regular documented in this encounter Plan of Treatment Not on filedocumented as of this encounter Visit Diagnoses Diagnosis Depressive disorder, not elsewhere class ified - Primary documented in this encounter Care Teams Potato Grader Relationship Specialty Start Date End Date Adal Kincaid MD PCP - General 05/05/03 01/28/12 [address] [place] [address] documented as of this encounter
--- OUTSIDE RECORDS SUMMARY | 2022-06-06 21:09 | XMS_ITS | Encounter Summary ---
:1985 Author Organization [facility] Address [address] [place] [address]. [place] [address] Care Team Providers Name Role Phone Adal Lawrence MD Primary Care Provider [phone] Reason for Visit Reason Onset Date Comments Patient Inquiry 06/30/2005 Encounter Details Date Type Department Care Team Description 06/30/2005 Telephone [facility] Adal Lawrence Patient Inquiry Clinic Cezar Moreira MD [address] [place] [address] [place], [place] [phone] (Wo rk) [address] [phone] Social History Tobacco Use Types Packs/Day Years [...] you attend rastafari or Patient refused 2021 quaker services? Do [...] this encounter Miscellaneous Notes Telephone Encounter - Shweta Trujillo - 06/30/2005 1:22 PM CST Pt advised. EYING OR SPATIAL SCIENCE TECHNICIAN Telephone Encounter - Tenzin Lawrence - 06/30/2005 1:00 PM CST >> TENZIN LAWRENCE Mon Jun 30, 2005 12:59 PM Status: Signed I spoke to obgyn and was advised to take 2 pills at 9 pm today (her usual time)and 1 daily from tomorrow,no need for morning after pill. EYING OR SPATIAL SCIENCE TECHNICIAN Telephone Encounter - Lb Monson - 06/30/2005 9:03 AM CST Pt calling,, didn't take her BC pill yesterday,, had sex last night. Requesting guidance from :: should she double up on BC pills today?? take morning after pill?? Pt concerned re:: possibility of . May call pt on cell [phone]. Please advise,, thanks. EYING OR SPATIAL SCIENCE TECHNICIAN documented in this encounter Plan of Treatment Not on filedocumented as of this encounter Visit Diagnoses Not on filedocumented in this encounter Care Teams Food Technician Relationship Specialty Start Date End Date Adal Lawrence MD PCP - General 05/05/03 01/28/[address] [place] [address] documented as of this encounter
--- OUTSIDE RECORDS SUMMARY | 2022-06-06 21:09 | XMS_ITS | Encounter Summary ---
:1985 Author Organization [facility] Address [address] [place] [address]. [place] [address] Care Team Providers Name Role Phone Adal Kincaid MD Primary Care Provider [phone] Reason for Visit Reason Onset Date Comments UTI 08/09/2007 Encounter Details Date Type Department Care Team Description 08/09/2007 Telephone [facility] Mike Kincaid, UTI Cezar ROLLINS [address] [place] [address] [place] [address] (Wo rk) Social History Tobacco [...] you attend sabianism or Patient refused 2021 jehovah's witness services? [...] this encounter Miscellaneous Notes Telephone Encounter - Betty Mobley - 08/09/2007 1:42 PM CST Pt advised and UA ordered. R FOLDING 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 Telephone Encounter - Julio Cesar Aviles - 08/09/2007 1:20 PM CST Plz order one. R FOLDING 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 Telephone Encounter - Betty Mobley - 08/09/2007 9:13 AM CST Pt has had UTI sx past week: urinary frequency and hematuria. Will you order UA?? Thanks. R FOLDING 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 documented in this encounter Plan of Treatment Not on filedocumented as of this encounter Visit Diagnoses Diagnosis Dysuria documented in this encounter Care Teams Car Construction Superintendent Relationship Specialty Start Date End Date Adal Kincaid MD PCP - General 05/05/03 01/28/12 [address] [place] [address] documented as of this encounter
--- OUTSIDE RECORDS SUMMARY | 2022-06-06 21:09 | XMS_ITS | Encounter Summary ---
:1985 Author Organization [facility] Address [address] [place] [address]. [place] [address] Care Team Providers Name Role Phone Adal Kincaid MD Primary Care Provider [phone] Reason for Visit Reason Comments URI onset Thursday Urgent Care Encounter Details Date Type Department Care Team Description 10/11/2006 Office Visit [facility]gent [place], JUSTINE Campbell (Primary Dx) Care [address] [place] [address] CLINIC [phone] [address], [place] [address] (Wo rk) Social History Tobacco Use Types [...] attend jehovah's witness or Patient refused 2021 taoism services? Do [...] Reading Time Taken Comments Blood Pressure 110/60 10/11/2006 11:30 AM CDT Pulse 100 10/11/2006 11:30 AM CDT Temperature 36.8 ??C (98.2 ??F) 10/11/2006 11:30 AM CDT Respiratory Rate - - Oxygen Saturation - - Inhaled Oxygen Concentration - - Weight - - Height - - Body Mass Index - - documented in this encounter Progress Notes Beverly Victoria - 10/11/2006 12:14 PM CDT SUBJECTIVE: Tameka Grissom is a 21 year old female who presents to the clinic today with a chief complaint of cough for 4 day(s). Her cough is described as persistent, nightime and productive of yellow sputum. The patient's symptoms are mild and not changing over the course of time. Associated symptoms include nasal congestion and sore throat. The patient's symptoms are exacerbated by no particular triggers Patient has been using OTC cough suppressants to improve symptoms. No past medical history on file. Current outpatient prescriptions Medication Sig ??? NYQUIL OR 1 TABLESPOONFUL EVERY 4 TO 6 HOURS NEEDED ??? ROBITUSSIN A-C 10-100 MG/5ML OR SYRP ONE TO TWO TEASPOONS EVER 4 HOURS, NEEDED FOR COUGH ??? MULTIPLE VITAMINS OR TABS History Substance Use Topics ??? Tobacco Use: Never ??? Alcohol Use: Yes Occaisional ROS Review of systems negative except as stated above. OBJECTIVE: BP 110/60 Pulse 100 Temp (Src) 98.2 (Oral) GENERAL APPEARANCE: healthy, alert and no distress EYES: EOMI, PERRL, conjunctiva clear HENT: ear canals and TM's normal. Nose and mouth without ulcers, erythema or lesions NECK: supple, nontender, no lymphadenopathy RESP: lungs clear to auscultation - no rales, rhonchi or wheezes SKIN: no suspicious lesions or rashes ASSESSMENT: Upper Respiratory Infection PLAN: See orders in Epic Symptomatic measures encouraged, rest, humidified air, plenty of fluids. documented in this encounter Nursing Notes 10/11/2006 11:30 AM CDT >> KEIRY 10/11/2006 11:40 am Tameka Grissom; Patient presents with: URI - onset Thursday Urgent Care Initial BP 110/60 Pulse 100 Temp (Src) 98.2 (Oral) Estimated Body mass index is 18.78 kg/(m^2) as calculated from: Height of 5' 3 (1.600 m) as of 09/01/06 Weight of 106 lbs (48.081 kg) as of 09/01/06. BP completed using cuff size regular. Nelly GUARD ENTRANCE REGISTRAR documented in this encounter Plan of Treatment Not on filedocumented as of this encounter Visit Diagnoses Diagnosis Cough - Primary documented in this encounter Care Teams Plastic Tubing Insulation Supervisor Relationship Specialty Start Date End Date Adal Kincaid MD PCP - General 05/05/03 01/28/12 [address] [place] [address] documented as of this encounter
--- OUTSIDE RECORDS SUMMARY | 2022-06-06 21:09 | XMS_ITS | Encounter Summary ---
:1985 Author Organization [facility] Address [address] [place] [address]. [place] [address] Care Team Providers Name Role Phone Adal Kincaid MD Primary Care Provider [phone] Reason for Visit Reason Comments Blood Draw Encounter Details Date Type Department Care Team Description 12/17/[address] [facility] URI [facility] [address] [place] [address] Social History Tobacco Use [...] or relatives? How often do you attend baptism or Patient refused 2021 mu-ism services? Do you belong to any clubs or No 10/17/2021 organizations such as baptism groups, unions, fraternal or athletic groups, or [...] Priority Date/Time Associated Diagnosis Comme nts HCL GLUCOSE Routine 12/17/2004 8:49 AM Urinary Frequency Resu lts for this CDT procedure are i n the results section . documented in this encounter Results GLUCOSE (12/17/2004 8:49 AM CDT) P athologist Signature Glucose 79 60 - 110 [facility] mg/dL CLINIC LAB Specimen Anatomical Collection Method Collection Time Receive d Time (Source) Location / / Volume Laterality 12/17/2004 8:49 AM 5 8:54 CDT AM CDT Adal Kincaid MD LABORATORY Performing Organization Address City/State/ZIP Code Phon e Number [facility] [address] [place], [place] [address] [address] [facility] documented in this encounter Visit Diagnoses Diagnosis Urinary frequency documented in this encounter Care Teams Explosion Welder Relationship Specialty Start Date End Date Adal Kincaid MD PCP - General 05/05/03 01/28/12 [address] [place] [address] documented as of this encounter
--- OUTSIDE RECORDS SUMMARY | 2022-06-06 21:09 | XMS_ITS | Encounter Summary ---
:1984 Author Organization [facility] Address [address] [place] [address]. [place] [address] Care Team Providers Name Role Phone Adal iKncaid MD Primary Care Provider [phone] Reason for Visit Reason Onset Date Comments Refill Request 01/25/2008 tri-sprintec Encounter Details Date Type Department Care Team Description 01/25/2008 Refill [facility] Adal Kincaid Refill Request Clinic Cezar Moreira MD (tri-sprintec) [address] [place] [address] [place] [address] [place], [place] [phone] (Wo rk) [address] [phone] Social History Tobacco Use Types Packs/Day Years [...] you attend mu-ism or Patient refused 2021 holiness services? Do [...] Notes Telephone Encounter - Nathaniel November - 01/25/2008 8:18 AM CDT Patient calling for refill, has appointmemt scheduled 02/15/08 Nurse unable to approve med as no diagnosis related to med, authorization required documented in this encounter Plan of Treatment Not on filedocumented as of this encounter Visit Diagnoses Diagnosis Contraception - Primary Unspecified contraceptive management documented in this encounter Care Teams Granulator Operator Relationship Specialty Start Date End Date Adal Kincaid MD PCP - General 05/05/03 01/28/[place] [address] documented as of this encounter
--- OUTSIDE RECORDS SUMMARY | 2022-06-06 21:09 | XMS_ITS | Encounter Summary ---
:1985 Author Organization [facility] Address [address] [place] [address]. [place] [address] Care Team Providers Name Role Phone Adal Lawrence MD Primary Care Provider [phone] Reason for Visit Reason Comments Physical Fasting Encounter Details Date Type Department Care Team Description 01/21/[address] [facility] [place], ROUTINE ME DICAL EXAM (Primary Dx); [facility] [place] Adal Moreira MD CONTRACEPTIVE MANGMT NEC [address] [place] [address] [place], [place] [phone] (Wo rk) [address] [phone] Social History Tobacco Use Types Packs/Day Years [...] or relatives? How often do you attend mandaeism or Patient refused 2021 yazidi services? Do you belong to any clubs or No 10/17/2021 organizations such as mandaeism groups, unions, fraternal or athletic groups, or [...] Reading Time Taken Comments Blood Pressure 98/66 01/21/2006 9:15 AM CDT Pulse 84 01/21/2006 9:15 AM CDT Temperature - - Respiratory Rate - - Oxygen Saturation - - Inhaled Oxygen Concentration - - Weight 47.5 kg (104 lb 12.8 oz) 01/21/2006 9:15 AM CDT Height 160 cm (5' 3) 01/21/2006 9:15 AM CDT Body Mass Index 18.56 01/21/2006 9:15 AM CDT documented in this encounter Progress Notes Norm Lawrence - 01/21/2006 9:48 AM CDT pt is a 20 year old female who is seen here to day for physical,also requesting pap and pelvic. last pap was 10/29,no abnormal pap in the past. Wants refills on BCpills and also requesting HIV and RPR tests. PAST MED HISTORY - No past medical history on file. PAST SURGICAL HISTORY-Past Surgical History Procedure Date ??? Nonspecific procedure rt brest biopsy,benign SOC HISTORY-History Social History ??? Marital Status: Single Spouse Name: N/A Number of Children: N/A ??? Years of Education: N/A Occupational History ??? Not on file. Social History Main Topics ??? Tobacco Use: Never ??? Alcohol Use: Yes Occaisional ??? Drug Use: No ??? Sexually Active: Yes -- Male partners Other Topics Concern ??? Not on file Social History Narrative ??? No narrative on file FAMILY HISTORY-Family History Problem Relation ??? Arthritis Mother degenerative in knees ??? Lipids Mother ??? Lipids Father ??? Family History Negative Sister ??? Family History Negative Sister ??? Family History Negative Brother ??? Family History Negative Brother Current outpatient prescriptions Medication Sig ??? ORTHO TRI-CYCLEN TABS OR 1 tab po as directed ??? MULTIPLE VITAMINS OR TABS REVIEW OF SYSTEMS- GENERAL:negative HEENT-NEGATIVE CARDIO VASCULAR-negative RESPITORY-negative ABDOMEN-negative GENITO URINARY-negative MUSCULOSKELETAL negative PSYCH negative ECHOMETER ENGINEER:negative ENDO:negative PHYSICAL EXAMINATION- Blood pressure 98/66, pulse 84, height 5' 3 (1.60 m), weight 104 lbs 12.8 oz (47.5 kg), last menstrual period 01/07/2006.. GENERAL:healthy, alert and no distress HEENT: pupils equal and reactive to light and accommodation, TMs clear, oropharynx clear CVS: regular rate and rhythm with normal S1, S2 ; no murmur, rub or gallops RESP: Normal - CTA without rales, rhonchi, or wheezing. ABD: no organomegaly, bowel sounds normal, soft, non-tender BREAST :Breasts are symmetric. No dominant, discrete, fixed or suspicious masses are noted. No skin or nipple changes or axillary nodes. Self exam is taught and encouraged.. :Vagina and vulva are normal; no discharge is noted. Cervix normal.Adnexa normal in size without masses or tenderness.PAP obtained,no cervical motion tenderness. EXT:Foot and ankle exam is normal. Color and temperature of the feet is normal. Peripheral pulses are palpable.. ECHOMETER ENGINEER:Cranial nerves 2-12 intact, motor strength intact, reflexes normal ASSESSMENT & PLAN : V70.0 ROUTINE MEDICAL EXAM (primary encounter diagnosis) Plan: A THIN LAYER PAP SCREEN, HGB, A.M.A. LIPID PANEL, ALANINE AMINO (ALT) (SGPT), GLUCOSE, HIV-1/HIV-2, SCREEN, RPR SCREEN W/REFLEX TO CONFIRM V25.09 CONTRACEPTIVE MANGMT NEC Plan: ORTHO TRI-CYCLEN TABS as directed.explained clearly about the medication,insructions and side effects. documented in this encounter Nursing Notes 01/21/2006 9:15 AM CDT >> LUCIEN SINGLETON 01/21/2006 9:48 am Marcelino Daley presents for: Physical - Fasting. Vitals: BP 98/66 Pulse 84 Ht 5' 3 (1.60m) Wt 104 lbs 12.8 oz (47.5kg) LMP 01/07/2006 BMI= Body mass index is 18.57 kg/(m^2). BP completed using cuff size: regular Lucien Singleton CMA documented in this encounter Plan of Treatment Not on filedocumented as of this encounter Procedures Procedure Name Priority Date/Time Associated Comments Diagnosis CL AFF RPR SCREEN Routine 01/21/2006 10:14 AM Routine Medical Results for this W/REFLEX TO CONFIRM CDT Exam procedur e are in the results section. HCL HEMOGLOBIN Routine 01/21/2006 10:14 AM Routine Medical Res ults for this NONLAB CDT Exam procedure are i n the results section. HCL GLUCOSE Routine 01/21/2006 10:14 AM Routine Medical Resul ts for this CDT Exam procedure are i n the results section. HCL HIV 1 & 2 Routine 01/21/2006 10:14 AM Routine Medical Resu lts for this ANTIBODY CDT Exam procedure are i n the results section. HCL ALT Routine 01/21/2006 10:14 AM Routine Medical Resul ts for this CDT Exam procedure are i n the results section. CL AFF A.M.A. LIPID Routine 01/21/2006 10:14 AM Routine Medica l Results for this PANEL CDT Exam procedure are i n the results section. HCL PAP THIN LAYER Routine 01/21/2006 12:00 AM Routine Medical Results for this SCREEN CDT Exam procedure are i n the results section. documented in this encounter Results RPR SCREEN W/REFLEX TO CONFIRM (01/21/2006 10:14 AM CDT) Analysis Performed At Patho logist Time Signature Rapid Plasma Negative NEG [facility] Reagin [facility] LABS Specimen Anatomical Collection Method Collection Time Receive d Time (Source) Location / / Volume Laterality 01/21/2006 10:14 01/21/2006 AM CDT 10:19 AM CDT Adal Lawrence MD LABORATORY Performing Organization Address City/[facility]/ZIP Code Phon e Number [facility] [address] LABS HIV-1/HIV-2, SCREEN (01/21/2006 10:14 AM CDT) Analysis Performed At Patho logist Time Signature HIV 1&2 Negative NEG [facility] Antibody [facility] LABS Specimen Anatomical Collection Method Collection Time Receive d Time (Source) Location / / Volume Laterality 01/21/2006 10:14 01/21/2006 AM CDT 10:19 AM CDT Adal Lawrence MD LABORATORY Performing Organization Address City/[facility] Code Phon e Number [facility] [address] LABS GLUCOSE (01/21/2006 10:14 AM CDT) athologist Signature Glucose 89 60 - 110 [facility] mg/dL CLINIC LAB Specimen Anatomical Collection Method Collection Time Receive d Time (Source) Location / / Volume Laterality 01/21/2006 10:14 01/21/2006 AM CDT 10:19 AM CDT Adal Lawrence MD LABORATORY Performing Organization Address City/[facility]/ZIP Code Phon e Number [facility] [place] [address] [place] [address] [phone] [facility] LAB ALANINE AMINO (ALT) (SGPT) (01/21/2006 10:14 AM CDT) athologist Signature ALT 33 0 - 50 U/L [facility] LAB Specimen Anatomical Collection Method Collection Time Receive d Time (Source) Location / / Volume Laterality 01/21/2006 10:14 01/21/2006 AM CDT 10:19 AM CDT Adal Lawrence MD LABORATORY Performing Organization Address City/[facility]/ZIP Code Phon e Number [facility] [place] [address] [facility] [place] [address] [phone] [facility] LAB A.M.A. LIPID PANEL (01/21/2006 10:14 AM CDT) athologist Signature Cholesterol 190 0 - 200 [facility] mg/dL CLINIC LAB Comment: LDL Cholesterol is the primary guide to therapy: LDL-cholesterol goal in high risk patients is <100 mg/dL and in very high risk patients is <70 mg/dL. The NCEP recommends further evaluation of: patients with cholesterol <200 mg/dL if additional risk factors are present, cholesterol >240 mg/dL, triglycerides >150 mg/dL, or HDL <40 mg/dL. Triglycerides 91 0 - 150 mg/dL [facility] LAB HDL Cholesterol 62 50 - 110 mg/dL [facility] LDL Cholesterol Calculated 110 0 - 129 mg/dL [facility] Comment: LDL Cholesterol is the primary guide to therapy: LDL-cholesterol goal in high risk patients is <100 mg/dL and in very high risk patients is <70 mg/dL. VLDL-Cholesterol 18 0 - 30 mg/dL [facility] LAB Cholesterol/HDL Ratio 3.1 0.0 - 5.0 [facility] LAB Specimen Anatomical Collection Method Collection Time Receive d Time (Source) Location / / Volume Laterality 01/21/2006 10:14 01/21/2006 AM CDT 10:19 AM CDT Adal Lawrence MD LABORATORY Performing Organization Address City/[facility]/ZIP Code Phon e Number [facility] [address] [place] [address] [facility] HGB (01/21/2006 10:14 AM CDT) P athologist Signature Hemoglobin 12.8 11.7 - 15.7 [facility] g/dL [facility] LAB Specimen Anatomical Collection Method Collection Time Receive d Time (Source) Location / / Volume Laterality 01/21/2006 10:14 01/21/2006 AM CDT 10:19 AM CDT Adal Lawrence MD LABORATORY Performing Organization Address City/[facility] Phon e Number [facility] [address] [place], [place] [address] [facility] LAB A THIN LAYER PAP SCREEN (01/21/2006 12:00 AM CDT) Component Value Ref Test Analysis Performed At Patholo gist Range Method Time Signature PAP NIL COPATH Copath Report COPATH Patient Name: MARCELINO DALEY MR#: [id number] Specimen #: [id number] Collected: 01/21/2006 Received: 01/22/2006 Reported: 01/23/2006 11:01 Ordering Phy(s): NORM LAWRENCE SPECIMEN/STAIN PROCESS: Pap thin layer prep screening (SurePath) ? Pap-Cyto x 1, Reflex HPV x 1 SOURCE: Cervical, endocervical ---- Pap thin layer prep screening (SurePath) SPECIMEN ADEQUACY: Satisfactory for evaluation. -Transformation zone component present. CYTOLOGIC INTERPRETATION: Negative for Intraepithelial Lesion or Malignancy Electronically signed out by: LANDEN Arnold (ASCP) Processed and screened at [facility] CLINICAL HISTORY: LMP: 01/07/06 Oral Control Pill, Previous normal pap Date of Last Pap: 10/25/04, TESTING LAB LOCATION: [facility] [address] [place], [place] ??[phone] COLLECTION SITE: Client: ??[facility] Location: RIIM (R) Specimen (Source) Anatomical Collection Method Collection Time Re ceived Time Location / / Volume Laterality 01/21/2006 01/22/2006 9:48 AM CDT Adal Lawrence MD LABORATORY Performing Organization Address City/State/ZIP Code Phon e Number [facility] documented in this encounter Visit Diagnoses Diagnosis Routine general medical examination at a health care facility - Primary Other general counseling and advice for contraceptive management documented in this encounter Care Teams Cat Driver Relationship Specialty Start Date End Date Adal Lawrence MD PCP - General 05/05/03 01/28/12 [address] [place] [address] documented as of this encounter
--- OUTSIDE RECORDS SUMMARY | 2022-06-06 21:09 | XMS_ITS | Encounter Summary ---
:1985 Author Organization [facility] Address [address] [place] [address] Care Team Providers Name Role Phone Adal Kincaid MD Primary Care Provider Reason for Visit Reason Comments Urgent Care Ear Problem Trouble hearing out of left ear after swimming in ocean on vacation. Vaginal Problem Lost string to tampon. Encounter Details Date Type Department Care Team Description 08/23/[address] [facility] JA Anderson; Urgent Care Kaye Odom PA-C PERSN W FEARED COMPLAINT [address] [address] [phone] Social History Tobacco Use Types Packs/Day Years [...] you attend alevism or Patient refused 2021 orthodoxy services? Do [...] Taken Comments Blood Pressure - - Pulse 78 08/23/2007 3:00 PM AUTOMOTIVE WORKER FOREMAN Temperature 36.4 ??C (97.6 ??F) 08/23/2007 3:00 PM AUTOMOTIVE WORKER FOREMAN Respiratory Rate 16 08/23/2007 3:00 PM AUTOMOTIVE WORKER FOREMAN Oxygen Saturation - - Inhaled Oxygen Concentration - - Weight 47.6 kg (105 lb) 08/23/2007 3:00 PM AUTOMOTIVE WORKER FOREMAN Height 160 cm (5' 3) 08/23/2007 3:00 PM AUTOMOTIVE WORKER FOREMAN Body Mass Index 18.6 08/23/2007 3:00 PM AUTOMOTIVE WORKER FOREMAN documented in this encounter Progress Notes Karly Anderson - 08/23/2007 3:57 PM CST Tameka Grissom is a 22 year old female who presents today for: 1) thinks that she may have a retained ttampon. She remembers putting atampon in last night before bed, but does not remember taking it out, and cannot find the string today. O abdominal pain or vaginal discharge. She is on the last nday of her cycle. 2) left ear is plugged for the past few days. Just returned from a beach vacation in [place]. No runny nose or URI symtpoms. No past medical history on file. NO PMH significant for ear problems. Complete ROS negative except as above. Exam: GENERAL APPEARANCE: healthy, alert and no distress EYES: EOMI, PERRL HENT: Left ear is blocked with cerumen. After lavage by nursing and ear loop removal by me, the ear canals and TM's are visualized as normal and nose and mouth without ulcers or lesions ABDOMEN: soft, nontender, no HSM or masses and bowel sounds normal GU_female: normal cervix, adnexae, and uterus without masses or discharge. No foreign body appreciated. The spectulum was rotated to expose the cervix completely and there are no foreign bodies in vaginal tract or adjacent to cervix. 380.4 IMPACTED CERUMEN Note: Plan: REMOVE IMPACTED EAR WAX V65.5 PERSN W FEARED COMPLAINT Note: Plan: no fb in vaginal tract. MOTIVE WORKER FOREMAN documented in this encounter Nursing Notes 08/23/2007 3:00 PM CST >> SURJIT MELGAR 08/23/2007 3:06 pm Tameka Calvinke presents for lost string to tampon this morning. Problem hearing from left ear afterswimming in ocean on vacation. Initial Pulse 78 Temp (Src) 97.6 (Oral) Resp 16 Ht 5' 3 (1.60m) Wt 105 lbs (47.6kg) Body mass index is 18.60 kg/(m^2).. BP completed using cuff size: not taken documented in this encounter Plan of Treatment Not on filedocumented as of this encounter Procedures Procedure Name Priority Date/Time Associated Diagnosis Comme nts HC REMOVE IMPACTED Routine 08/23/2007 3:57 PM AUTOMOTIVE WORKER FOREMAN Impacted Cer umen CERUMEN documented in this encounter Visit Diagnoses Diagnosis Impacted cerumen Person with feared complaint in whom no diagnosis was made documented in this encounter Care Teams Optical Effects Layout Person Relationship Specialty Start Date End Date Adal Kincaid MD PCP - General 05/05/03 01/28/12 [address] [place] [address] documented as of this encounter
--- OUTSIDE RECORDS SUMMARY | 2022-06-06 21:09 | XMS_ITS | Encounter Summary ---
:1985 Author Organization [facility] Address [address] [place] [address]. [place] [address] Care Team Providers Name Role Phone Adal Kincaid MD Primary Care Provider [phone] Encounter Details Date Type Department Care Team Description 05/12/2007 Medical Correspondence [facility] [place], [facility] Adal Moreira MD [address] [place] [address] [place], [place] [phone] (Wo rk) [address] [phone] Social History Tobacco Use Types Packs/Day Years [...] you attend alevism or Patient refused 2021 zoroastrianism services? Do [...] filedocumented in this encounter Care Teams Activities Assistant Relationship Specialty Start Date End Date Adal Kincaid MD PCP - General 05/05/03 01/28/12 [address] [place] [address] documented as of this encounter
--- OUTSIDE RECORDS SUMMARY | 2022-06-06 21:09 | XMS_ITS | Encounter Summary ---
:1985 Author Organization [facility] Address [address] [place] [address]. [place] [address] Care Team Providers Name Role Phone Adal Lawrence MD Primary Care Provider [phone] Reason for Referral - Closed Specialty Diagnoses / Procedures Referred By Contact Refer red To Contact Diagnoses Other specified disorder of skin Adal Lawrence MD [address] [place] [address] Referral ID Status Reason Start Date Expiration Date Visits Requ ested Visits Authorized [id number] Closed 01/22/2007 07/26/2011 1 1 Reason for Visit Reason Comments Physical Pap 01-21-06 neg PT FASTING Encounter Details Date Type Department Care Team Description 01/22/2007 Office Visit [facility], ROUTINE [place] DICAL EXAM (Primary Dx); [facility] Adal Moreira MD SKIN DISORDERS NEC; [address] [place] [address] [place], [place] [phone] (Wo rk) [address] [phone] Social History Tobacco Use Types Packs/Day Years [...] attend roman catholic or Patient refused 2021 quaker services? Do [...] Reading Time Taken Comments Blood Pressure 108/60 01/22/2007 9:00 AM CDT Pulse 76 01/22/2007 9:00 AM CDT Temperature - - Respiratory Rate - - Oxygen Saturation - - Inhaled Oxygen Concentration - - Weight 48.1 kg (106 lb) 01/22/2007 9:00 AM CDT Height 160 cm (5' 3) 01/22/2007 9:00 AM CDT Body Mass Index 18.78 01/22/2007 9:00 AM CDT documented in this encounter Progress Notes Tenzin Lawrence - 01/22/2007 9:15 AM CDT pt is a 21 year old female who is seen here to day for physical,also requesting pap and pelvic. last pap was 12/30,no abnormal pap in the past. Pt also c/o having anxiety symptoms on and off for few yrs and getting worse,gets nervous,feels dizzy and nauseated and heart racing.happens mainly when she goes out socially or thinking of going out,also in crowds.wants med to take only as needed. Pt also has noitced change in mole on lt abd,has become raised. Wants refills on BCpills. Wants gono/chlmydia,HIV and Syphilis tests. PAST MED HISTORY - No past [...] ??? Breast CA Other paternal aunt MEDS -Current outpatient prescriptions Medication Sig ??? TRI-SPRINTEC 0.035 MG OR TABS 1 TABLET DAILY ??? MULTIPLE VITAMINS OR TABS REVIEW OF SYSTEMS- GENERAL:negative HEENT-NEGATIVE CARDIO VASCULAR-negative RESPITORY-negative ABDOMEN-negative GENITO URINARY-negative MUSCULOSKELETAL negative PSYCH anxiety BILINGUAL SALES REPRESENTATIVE:negative SKIN:changing mole PHYSICAL EXAMINATION- Blood pressure 108/60, pulse 76, height 5' 3 (1.60 m), weight 106 lbs (48.1 kg), last menstrual period 12/30/2006.. GENERAL:healthy, alert and no distress HEENT: pupils [...] and encouraged.. :Vagina and vulva are normal; cx doen for chlymydia and gonorrhea. Cervix normal.Adnexa normal in size without masses or tenderness.PAP obtained,no cervical motion tenderness. EXT:Foot and ankle exam is normal. Color and temperature of the feet is normal. Peripheral pulses are palpable.. BILINGUAL SALES REPRESENTATIVE:Cranial nerves 2-12 intact, motor strength intact, reflexes normal Skin;small brown colored raised mole on lt abd. ASSESSMENT & PLAN : V70.0 ROUTINE MEDICAL EXAM (primary encounter diagnosis) Plan: HGB, A.M.A. LIPID PANEL, A.M.A. BASIC METABOLIC PANEL, ALANINE AMINO (ALT) (SGPT), N.GONORRHOEAE, DNA, (GC), CHLMYD TRACH, DNA, AMP PROBE, HIV 1 & 2, SCREEN, RPR SCREEN W/REFLEX TO CONFIRM 709.8 SKIN DISORDERS NEC Plan: CONSULT DERMATOLOGY 300.00 ANXIETY STATE NOS Plan: XANAX 0.25 MG OR TABS as directed.explained clearly about the medication,insructions and side effects. If needing to take every day then we need to start SSRI,pt was informed. documented in this encounter Nursing Notes 01/22/2007 9:00 AM CDT >> ODELL BAE 01/22/2007 9:12 am Marcelino Alphonso Daley presents for a physical. Initial BP 108/60 Pulse 76 Ht 5' 3 (1.60m) Wt 106 lbs (48.1kg) LMP 12/30/2006 Body mass index is 18.78 kg/(m^2).. BP completed using cuff size: regular documented in this encounter Plan of Treatment Not on filedocumented as of this encounter Procedures Procedure Name Priority Date/Time Associated Comments Diagnosis CL AFF Routine 01/22/2007 10:02 AM Routine Medical Resul ts for this N.GONORRHOEAE, DNA CDT Exam procedure are in AMP PROBE the results section. CL AFF CHLMYD TRACH, Routine 01/22/2007 10:02 AM Routine Medic al Results for this DNA, AMP PROBE CDT Exam procedure are in the results section. CL AFF RPR SCREEN Routine 01/22/2007 9:55 AM Routine Medical R esults for this W/REFLEX TO CONFIRM CDT Exam procedur e are in the results section. HCL HIV 1 & 2 Routine 01/22/2007 9:55 AM Routine Medical Resul ts for this ANTIBODY CDT Exam procedure are i n the results section. HCL HEMOGLOBIN Routine 01/22/2007 9:48 AM Routine Medical Resu lts for this NONLAB CDT Exam procedure are i n the results section. HCL BASIC METABOLIC Routine 01/22/2007 9:48 AM Routine Medical Results for this PANEL CDT Exam procedure are i n the results section. HCL ALT Routine 01/22/2007 9:48 AM Routine Medical Result s for this CDT Exam procedure are i n the results section. CL AFF A.M.A. LIPID Routine 01/22/2007 9:48 AM Routine Medical Results for this PANEL CDT Exam procedure are i n the results section. HCL PAP THIN LAYER Routine 01/22/2007 12:00 AM Routine Medical Results for this SCREEN CDT Exam procedure are i n the results section. documented in this encounter Results CHLMYD TRACH, DNA, AMP PROBE (01/22/2007 10:02 AM CDT) Component Value Ref Test Analysis Performed At [facility] Method Time Signature Specimen Vagina [facility] LABS Chlamydia Negative for C. trachomatis rRNA by retail department manager mediated amplification. [employer] Trachomatis A negative result by transc ription mediated amplification does not preclude the MASTERSON PCR presence of C. trachomatis infection because results are dependent on proper CAMPUS LABS and adequate collection, absence of inhibitors, and suffici ent rRNA to be detected. Specimen Anatomical Collection Method Collection Time Receive d Time (Source) Location / / Volume Laterality 01/22/2007 10:02 01/22/2007 AM CDT 10:07 AM CDT Adal Lawrence MD LABORATORY Performing Organization Address City/[facility]/ZIP Code Phon e Number [facility] [address] LABS N.GONORRHOEAE, DNA, (GC) (01/22/2007 10:02 AM CDT) Component Value Ref Test Analysis Performed At [facility] Method Time Signature Specimen Vagina [facility] LABS N Gonorrhea Negative for N. gonorrhoeae rRNA by retail department manager mediated amplification. [employer] PCR A negative result by transc ription mediated amplification does not preclude the MASTERSON presence of N. gonorrhoeae infection because re sults are dependent on proper CAMPUS LABS and adequate collection, absence of inhibitors, and suffici ent rRNA to be detected. Specimen Anatomical Collection Method Collection Time Receive d Time (Source) Location / / Volume Laterality 01/22/2007 10:02 01/22/2007 AM CDT 10:07 AM CDT Adal Lawrence MD LABORATORY Performing Organization Address City/[facility]/ZIP Code Phon e Number [facility] [address] [place], [place] [id number] [place] [address] LABS RPR SCREEN W/REFLEX TO CONFIRM (01/22/2007 9:55 AM CDT) Analysis Performed At Patho logist Time Signature Rapid Plasma Negative NEG [employer] Reagin [facility] LABS Specimen Anatomical Collection Method Collection Time Receive d Time (Source) Location / / Volume Laterality 01/22/2007 9:55 AM 7 CDT 10:00 AM CDT Adal Lawrence MD LABORATORY Performing Organization Address City/State/ZIP Code Phon e Number [phone] [place] [address] LABS HIV 1 & 2, SCREEN (01/22/2007 9:55 AM CDT) Analysis Performed At Patho logist Time Signature HIV 1&2 Negative NEG [employer] Antibody [facility] LABS Specimen Anatomical Collection Method Collection Time Receive d Time (Source) Location / / Volume Laterality 01/22/2007 9:55 AM 7 CDT 10:00 AM CDT Adal Lawrence MD LABORATORY Performing Organization Address City/[facility]/ZIP Code Phon e Number [id number] [place] [address] LABS ALANINE AMINO (ALT) (SGPT) (01/22/2007 9:48 AM CDT) athologist [facility] ALT 38 0 - 50 U/L [facility] LAB Specimen Anatomical Collection Method Collection Time Receive d Time (Source) Location / / Volume Laterality 01/22/2007 9:48 AM 7 9:53 CDT AM CDT Adal Lawrence MD LABORATORY Performing Organization Address City/State/ZIP Code Phon e Number [facility] [address] [place] [address] [facility] LAB A.M.A. BASIC METABOLIC PANEL (01/22/2007 9:48 AM CDT) P athologist Signature Sodium 137 133 - 144 [place] mmol/L [facility] LAB Potassium 3.9 3.4 - 5.3 [place] mmol/L [facility] LAB Chloride 101 94 - 109 [place] mmol/L [facility] LAB Carbon Dioxide 26 20 - 32 [place] mmol/L [facility] LAB Anion Gap 10 6 - 17 [place] mmol/L [facility] LAB Glucose 75 60 - 99 [place] mg/dL [facility] LAB Urea Nitrogen 13 5 - 24 [place] mg/dL [facility] LAB Creatinine 0.89 0.60 - [place] 1.30 mg/dL [facility] LAB GFR Estimate 84 >60 [place] mL/min/1.7 [facility] m2 LAB GFR Estimate If >90 >60 [place] Black mL/min/1.7 [facility] m2 LAB Calcium 9.6 8.5 - 10.4 [place] mg/dL [facility] LAB Specimen Anatomical Collection Method Collection Time Receive d Time (Source) Location / / Volume Laterality 01/22/2007 9:48 AM 7 9:53 CDT AM CDT Adal Lawrence MD LABORATORY Performing Organization Address City/State/ZIP Code Phon e Number [facility] [address] [place] [address] [facility] LAB (ABNORMAL) A.M.A. LIPID PANEL (01/22/2007 9:48 AM CDT) P athologist Signature Cholesterol 204 (H) 0 - 200 [place] mg/dL [facility] LAB Comment: LDL Cholesterol is the primary guide to therapy: LDL-cholesterol goal in high risk patients is <100 mg/dL and in very high risk patients is <70 mg/dL. The NCEP recommends further evaluation of: patients with cholesterol <200 mg/dL if additional risk factors are present, cholesterol >240 mg/dL, triglycerides >150 mg/dL, or HDL <40 mg/dL. Triglycerides 113 0 - 150 mg/dL [facility] LAB HDL Cholesterol 69 50 - 110 mg/dL [facility] LDL Cholesterol Calculated 113 0 - 129 mg/dL [facility] VLDL-Cholesterol 23 0 - 30 mg/dL [facility] LAB Cholesterol/HDL Ratio 3.0 0.0 - 5.0 [facility] LAB Specimen Anatomical Collection Method Collection Time Receive d Time (Source) Location / / Volume Laterality 01/22/2007 9:48 AM 7 9:53 CDT AM CDT Adal Lawrence MD LABORATORY Performing Organization Address City/State/ZIP Code Phon e Number [facility] [address] [place] [address] [facility] HGB (01/22/2007 9:48 AM CDT) P athologist Signature Hemoglobin 13.1 11.7 - 15.[address] [facility] g/dL [facility] LAB Specimen Anatomical Collection Method Collection Time Receive d Time (Source) Location / / Volume Laterality 01/22/2007 9:48 AM 7 9:53 CDT AM CDT Adal Lawrence MD LABORATORY Performing Organization Address City/[facility]/ZIP Code Phon e Number [facility] [address] [place], [place] [address] [address] [facility] LAB A THIN LAYER PAP SCREEN (01/22/2007 12:00 AM CDT) Component Value Ref Test Analysis Performed At Patholo gist Range Method Time Signature PAP NIL COPATH Copath Report COPATH Patient Name: MARCELINO DALEY MR#: [id number] Specimen #: [id number] Collected: 01/22/2007 Received: 01/25/2007 Reported: 01/26/2007 11:36 Ordering Phy(s): TENZIN LAWRENCE SPECIMEN/STAIN PROCESS: Pap thin layer prep screening (Sure[facility]) ? Pap-Cyto x 1, Reflex HPV x 1 SOURCE: Cervical, endocervical ---- Pap thin layer prep screening (Sure[facility]) SPECIMEN ADEQUACY: Satisfactory for evaluation. -Transformation zone component present. CYTOLOGIC INTERPRETATION: Negative for Intraepithelial Lesion or Malignancy Electronically signed out by: LANDEN Hirsch (ASCP) Processed and screened at [facility] CLINICAL HISTORY: LMP: 6-6-07 Oral Control Pill, Previous normal pap Date of Last Pap: 01-21-06, TESTING LAB LOCATION: [facility] [address] [place], [place] ??[address] COLLECTION SITE: Client: ??[facility] Location: RIIM (R) Specimen (Source) Anatomical Collection Method Collection Time Re ceived Time Location / / Volume Laterality 01/22/2007 01/25/2007 9:25 AM CDT Adal Lawrence MD LABORATORY Performing Organization Address City/State/ZIP Code Phon e Number [place] documented in this encounter Visit Diagnoses Diagnosis Routine general medical examination at a health care facility - Primary Other specified disorder of skin Anxiety state, unspecified documented in this encounter Care Teams Bean Weigher Relationship Specialty Start Date End Date Adal Lawrence MD PCP - General 05/05/03 01/28/12 [address] [place] [address] documented as of this encounter
--- OUTSIDE RECORDS SUMMARY | 2022-06-06 21:09 | XMS_ITS | Encounter Summary ---
:1985 Author Organization [facility] Address [address] [place] [address]. [place] [address] Care Team Providers Name Role Phone Adal Kincaid MD Primary Care Provider [phone] Reason for Visit Reason Comments Ear Problem Encounter Details Date Type Department Care Team Description 09/01/2006 Office Visit [facility] Julio Cesar Aviles M D DYSFUNCT [facility] [place] RETIRED TUBE (Primary Dx) [address] [place] [address] [place] [id number] Social History Tobacco Use Types Packs/Day Years [...] you attend mu-ism or Patient refused 2021 jewish services? Do [...] Sign Reading Time Taken Comments Blood Pressure 100/66 09/01/2006 2:30 PM CANVAS WORKER Pulse 66 09/01/2006 2:30 PM CANVAS WORKER Temperature - - Respiratory Rate - - Oxygen Saturation - - Inhaled Oxygen Concentration - - Weight 48.1 kg (106 lb) 09/01/2006 2:30 PM CANVAS WORKER Height 160 cm (5' 3) 09/01/2006 2:30 PM CANVAS WORKER Body Mass Index 18.78 09/01/2006 2:30 PM CANVAS WORKER documented in this encounter Progress Notes Julio Cesar Aviles - 09/01/2006 2:56 PM CST S: Press in left ear for 2 days. No nasal nathalia. Will go on a flight in 4 days. O: Ears-normal. A: Eustachian tube dysfunc P: Sudafed; also Afrin before flying (use sparingly) AS WORKER documented in this encounter Nursing Notes 09/01/2006 2:30 PM CST >> SHAZIA HALL 09/01/2006 2:33 pm Tameka Grissom presents for L ear pain. Initial BP 100/66 Pulse 66 Ht 5' 3 (1.60m) Wt 106 lbs (48.1kg) Body mass index is 18.78 kg/(m^2).. BP completed using cuff size: regular documented in this encounter Plan of Treatment Not on filedocumented as of this encounter Visit Diagnoses Diagnosis Dysfunction of eustachian tube - Primary Dysfunction of Eustachian tube documented in this encounter Care Teams [place] Or Nursery Transplanter Relationship Specialty Start Date End Date Adal Kincaid MD PCP - General 05/05/03 01/28/12 [address] [place], [place] [id number] documented as of this encounter
--- OUTSIDE RECORDS SUMMARY | 2022-06-06 21:09 | XMS_ITS | Encounter Summary ---
:1985 Author Organization [facility] Address [address] [place] [address]. 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 [...] Reading Time Taken Comments Blood Pressure 108/68 03/02/2008 2:30 PM CDT Pulse - - Temperature - - Respiratory Rate - - Oxygen Saturation - - Inhaled Oxygen Concentration - - Weight 49.4 kg (109 lb) 03/02/2008 2:30 PM CDT Height - - Body Mass Index 19.31 02/15/2008 8:00 AM CDT documented in this encounter Progress Notes Hector Melvin - 03/04/2008 10:09 AM CDT Here to discuss colp bipsies. Path: Multiple biopsies show mild dysplasia. After discusseion will schedule cryo therapy. documented in this encounter Nursing Notes 03/02/2008 2:30 PM CDT >> MARCE KELLER [facility] Mar 02, 2008 1:10 PM Tameka Grissom presents for follow up to colp results.Marce Keller MA Initial BP 108/68 Wt 109 lb (49.442 kg) LMP 03/01/2008 Estimated Body mass index is 19.31 kg/(m^2) [...] Primary documented in this encounter Care Teams Historian Research Assistant Relationship Specialty Start Date End Date Adal Kincaid MD PCP - General 05/05/03 01/28/12 [address] [place] [address] documented as of this encounter
--- OUTSIDE RECORDS SUMMARY | 2022-06-06 21:10 | XMS_ITS | Encounter Summary ---
:1985 Author Organization [facility] Address [address] [place] [address]. [place] [address] Care Team Providers Name Role Phone Adal Lawrence MD Primary Care Provider [phone] Reason for Visit Reason Comments Plastic Surgery Nurse Exam Encounter Details Date Type Department Care Team Description 10/25/2004 Office Visit [facility] [place] ROUTINE [facility] [place] Adal Moreira MD EXAMINATION (Primary [address]) [place] [address] [place], [place] [phone] (Wo rk) [address] [phone] Social History Tobacco Use Types Packs/Day Years [...] you attend christian or Patient refused 2021 jainism services? Do [...] this encounter Progress Notes Tenzin Lawrence - 10/25/2004 2:23 PM CST pt is a 19 year old female who is seen here to day for pap,pelvic and breast exam.also needs STD check,c/o white vaginal discharge,no itching. MEDS: 1. ORTHO TRI-CYCLEN TABS OR Route: Oral Si tab po as directed Dispense: 3 PK Refill: 3 2. MULTIPLE VITAMINS OR TABS Route: Sig: Dispense: Refill: ROS: General;negative :as above Blood pressure 110/70, last menstrual period 10/18/2004. Alert and oriented. BREASTS:Breasts are symmetric. No dominant, discrete, fixed or suspicious masses are noted. No skin or nipple changes or axillary nodes. Self exam is taught and encouraged. PELVIC-Vagina and vulva are normal; white discharge is noted.wet prep done,cx taken. pap obtained,nocx motion tenderness. Adnexa normal in size without masses or tenderness. ASSESSMENT AND PLAN: V72.31 ROUTINE DIRECTOR AGRICULTURAL SERVICES EXAMINATION Plan: A THIN LAYER PAP SCREEN, CHLMYD TRACH, DNA, AMP PROBE, N.GONORRHOEAE, DNA, (GC), A WET PREP T CARE MANAGER documented in this encounter Plan of Treatment Not on filedocumented as of this encounter Procedures Procedure Name Priority Date/Time Associated Diagnosis Comme nts CL AFF Routine 10/25/2004 2:36 PM Routine Plastic Surgery Nurse Results f or this N.GONORRHOEAE, DNA ADULT CARE MANAGER Examination procedure are in AMP PROBE the results section. CL AFF CHLMYD Routine 10/25/2004 2:36 PM Routine Plastic Surgery Nurse Results for this TRACH, DNA, AMP ADULT CARE MANAGER Examination procedure ar e in PROBE the results section. HCL WET PREP Routine 10/25/2004 2:35 PM Routine Plastic Surgery Nurse Results f or this ADULT CARE MANAGER Examination procedure are i n the results section. HCL PAP THIN LAYER Routine 10/25/2004 12:00 AM Routine Plastic Surgery Nurse Re sults for this SCREEN ADULT CARE MANAGER Examination procedure are i n the results section. documented in this encounter Results N.GONORRHOEAE, DNA, (GC) (10/25/2004 2:36 PM ADULT CARE MANAGER) Component Value Ref Test Analysis Performed At Patholo gist Range Method Time Signature Specimen Vagina [facility] LABS N Gonorrhea Negative for N. gonorrhoeae rRNA by video arcade manager mediated amplification. [facility] PCR A negative result by transc ription mediated amplification does not preclude the [place] presence of N. gonorrhoeae infection because re sults are dependent on proper CAMPUS LABS and adequate collection, absence of inhibitors, and suffici ent rRNA to be detected. Specimen Anatomical Collection Method Collection Time Receive d Time (Source) Location / / Volume Laterality 10/25/2004 2:36 PM 5 2:41 ADULT CARE MANAGER PM ADULT CARE MANAGER Adal Lawrence MD LABORATORY Performing Organization Address City/State/ZIP Code Phon e Number [address] LABS CHLMYD TRACH, DNA, AMP PROBE (10/25/2004 2:36 PM ADULT CARE MANAGER) Component Value Ref Test Analysis Performed At [facility] Method [place] Signature Specimen Vagina [facility] LABS Chlamydia Negative for C. trachomatis rRNA by video arcade manager mediated amplification. [facility] Trachomatis A negative result by transc ription mediated amplification does not preclude the [place] PCR presence of C. trachomatis infection because results are dependent on proper CAMPUS LABS and adequate collection, absence of inhibitors, and suffici ent rRNA to be detected. Specimen Anatomical Collection Method Collection Time Receive d Time (Source) Location / / Volume Laterality 10/25/2004 2:36 PM 5 2:41 ADULT CARE MANAGER PM ADULT CARE MANAGER Adal Lawrence MD LABORATORY Performing Organization Address City/State/ZIP Code Phon e Number [address] LABS A WET PREP (10/25/2004 2:35 PM ADULT CARE MANAGER) [facility] Signature Specimen Vagina [facility] LAB Wet Prep No yeast seen [place] No Trichomonas seen [facility] No clue cells seen CLINIC LAB Report status FINAL [id number] [facility] LAB Specimen Anatomical Collection Method Collection Time Receive d Time (Source) Location / / Volume Laterality 10/25/2004 2:35 PM 5 2:40 ADULT CARE MANAGER PM ADULT CARE MANAGER Authorizing Provider Result Heath Lawrence MD LABORATORY Performing Organization Address City/State/ZIP Code Phon e Number [facility] [address] [place], [place] [address] [address] [facility] LAB A THIN LAYER PAP SCREEN (10/25/2004 12:00 AM ADULT CARE MANAGER) Component Value Ref Test Analysis Performed At [facility] Range Method Time Signature PAP NIL COPATH Copath Report COPATH Patient Name: MARCELINO DALEY MR#: [id number] Specimen #: [id number] Collected: 10/25/2004 Received: 10/28/2004 Reported: 10/30/2004 09:58 Ordering Phy(s): TENZIN LAWRENCE SPECIMEN/STAIN PROCESS: Pap thin layer prep screening ? Pap-Cyto x 1, Reflex HPV x 1 SOURCE: Cervical, endocervical ---- Pap thin layer prep screening SPECIMEN ADEQUACY: Satisfactory for evaluation. -Transitional zone component present. CYTOLOGIC INTERPRETATION: Negative for Intraepithelial Lesion or Malignancy Electronically signed out by: LANDEN Corrigan (ASCP) Processed and screened at [facility] , [facility] CLINICAL HISTORY: Oral Control Pill, Previous normal pap Date of Last Pap: 2002, TESTING LAB LOCATION: [facility] [address] [place], [place] ??[address] COLLECTION SITE: Client: ??[facility] Location: [place] (R) Specimen (Source) Anatomical Collection Method Collection Time Re ceived Time Location / / Volume Laterality 10/25/2004 10/28/2004 9:51 AM CDT Adal Lawrence MD LABORATORY Performing Organization Address City/State/ZIP Code Phon e Number [place] documented in this encounter Visit Diagnoses Diagnosis Routine gynecological examination - Prim cresencio documented in this encounter Care Teams Director Of Employer Services Relationship Specialty Start Date End Date Adal Lawrence MD PCP - General 05/05/03 01/28/12 [address] [place] [address] documented as of this encounter
--- OUTSIDE RECORDS SUMMARY | 2022-06-06 21:10 | XMS_ITS | Encounter Summary ---
:1985 Author Organization [place] Address [address] [place] [address]. [place] [address] Care Team Providers Name Role Phone Doctor, None MD Primary Care Provider Unavailable Encounter Details Date Type Department Care Team Description 04/25/2002 Abstract [facility] Latoya Godinez [facility] [place] [address] Social History Tobacco Use Types Packs/Day Years Used Date Smoking Tobacco: Never Assessed Alcohol Habits Answer Date Recorded How often [...] attend roman catholic or Patient refused 2021 jain services? Do [...] Name Priority Date/Time Associated Diagnosis Comme nts ABSTRACT MAMMO-NO Routine 02/21/1997 Results fo r this CHARGE procedure are i n the results section . documented in this encounter Results ABSTRACT MAMMO-NO CHARGE (02/21/1997) Anatomical Region Laterality Modality Other Narrative 02/21/1997 Right breast mammogram at [facility] Latoya Patel GENERAL IMAGING documented in this encounter Visit Diagnoses Not on filedocumented in this encounter Care Teams Diamond Die Driller Relationship Specialty Start Date End Date Doctor, Jae, PCP - General 09/10/01 05/04/03 documented as of this encounter
--- OUTSIDE RECORDS SUMMARY | 2022-06-06 21:10 | XMS_ITS | Clinical Summary ---
:1985 Author Organization [facility] [place] [address] Care Team Providers Name Role Phone Pcp, No Primary Care Provider Unavailable Allergies No known active allergies Medications Medication Sig Dispensed Refills Start Date End Date Status escitalopram oxalate Take 1 tablet by 0 08/16/2014 Active (LEXAPRO) 20 mg tablet mouth once daily. Active Problems No known active problems Social History Tobacco Use Types Packs/Day Years Used Date Never Smoker Smokeless Tobacco: Never Used Alcohol Use Standard Drinks/Week Comments Yes 0 (1 standard drink = 0.6 oz pure alcoho l) social Sex Assigned at Date Recorded Not on file Obstetrics History Last Filed Vital Signs Vital Sign Reading Time Taken Comments Blood Pressure 106/68 08/16/2014 11:35 AM WAREHOUSE INSULATION WORKER Pulse 93 08/16/2014 11:35 AM WAREHOUSE INSULATION WORKER Temperature 36.7 ??C (98.1 ??F) 08/16/2014 11:35 AM WAREHOUSE INSULATION WORKER Respiratory Rate 16 08/16/2014 11:35 AM WAREHOUSE INSULATION WORKER Oxygen Saturation 100% 08/16/2014 11:35 AM WAREHOUSE INSULATION WORKER Inhaled Oxygen Concentration - - Weight 52.2 kg (115 lb) 08/16/2014 11:35 AM WAREHOUSE INSULATION WORKER Height - - Body Mass Index - - Plan of Treatment Health Maintenance Due Date Last Done Comments COVID-19 vaccine series (#1) 1984 Tdap 1995 Depression screening for age 12+ 1996 BMI (ht and wt on same day) for age 18+ 2002 Hepatitis C screening for age 18-79 2002 Tetanus booster 2004 Pap test for age 21-65 2005 Influenza for age 9-49 03/27/2022 Results Not on filefrom Last 3 Months Insurance Payer Benefit Plan / Subscriber ID Effective Dates Phone Addre ss Type Group BLUE CROSS BLUE CROSS OF [id number] 2014-Present [address] [place] [address] Care Teams Captain'S Assistant Relationship Specialty Start Date End Date Pcp, No PCP - General 08/16/14 .
--- OUTSIDE RECORDS SUMMARY | 2022-06-06 21:10 | XMS_ITS | Encounter Summary ---
:1985 Author Organization [place] Address [address] [place] [address]. [place] [address] Care Team Providers Name Role Phone Doctor, None MD Primary Care Provider Unavailable Reason for Visit Reason Comments URI viral URI probable allergic rhinitis Encounter Details Date Type Department Care Team Description 11/13/2002 Abstract [facility] Anna Hastings MD [address] [address] [place] [address] [phone] Social History Tobacco Use Types Packs/Day Years [...] you attend evangelical or Patient refused 2021 christianity services? Do [...] documented as of this encounter Progress Notes 11/13/2002 11:59 PM CDT Afrin NS x 3 days Flonase NS supportive cares f/u with PMD 3-5 days This information has been abstr acted from the urgent care chart. documented in this encounter Plan of Treatment Not on filedocumented as of this encounter Visit Diagnoses Not on filedocumented in this encounter Care Teams Right Of Way Appraiser Relationship Specialty Start Date End Date Doctor, None, PCP - General 09/10/01 05/04/03 documented as of this encounter
--- OUTSIDE RECORDS SUMMARY | 2022-06-06 21:10 | XMS_ITS | Encounter Summary ---
:1985 Author Organization [place] Address [address] [place] [address]. [place] [address] Care Team Providers Name Role Phone Adal Kincaid MD Primary Care Provider [phone] Reason for Visit Reason Comments Urinary Problem Encounter Details Date Type Department Care Team Description 12/16/2004 Office Visit [facility] [place], URINARY FR EQUENCY [facility] [place] Adal Moreira MD (Primary Dx) [address] [place] [address] [place], [place] [phone] (Wo rk) [address] [phone] Social History Tobacco Use Types Packs/Day Years [...] you attend restorationism or Patient refused 2021 worship services? Do [...] Reading Time Taken Comments Blood Pressure 108/62 12/16/2004 9:15 AM CDT Pulse - - Temperature 36.9 ??C (98.4 ??F) 12/16/2004 9:15 AM CDT Respiratory Rate - - Oxygen Saturation - - Inhaled Oxygen Concentration - - Weight 53.5 kg (118 lb) 12/16/2004 9:15 AM CDT Height - - Body Mass Index 20.57 05/05/2003 2:00 PM CDT documented in this encounter Progress Notes Tenzin Kincaid - 12/16/2004 9:27 AM CDT pt is a 19 year old female who is seen here to day with c/o lower abd pressure and frequent urination since 4 days,also c/o urgency,no dysuria,no fever/chills.currently having menses. MEDS: 1. ORTHO TRI-CYCLEN TABS OR Route: Oral Si tab po as directed Dispense: 3 PK Refill: 3 2. MULTIPLE VITAMINS OR TABS Route: Sig: Dispense: Refill: ROS:GENERAL-no fever/chills. :as above. Blood pressure 108/62, temperature 98.4, weight 118 lbs (53.5 kg), last menstrual period 12/11/2004. GENERAL:healthy, alert, no distress GI: no organomegaly, bowel sounds normal, soft, mild tenderness suprpubic area. Back:no CVA tenderness. UA-negative for UTI. ASSESSMENT AND PLAN: 788.41 URINARY FREQUENCY (primary encounter diagnosis) Note: negative for UTI. Plan:check fasting GLUCOSE. documented in this encounter Nursing Notes 12/16/2004 9:15 AM CDT >> VENITA MAHMOOD 12/16/2004 9:12 am Tameka Grissom presents for onset 10/12/04 pt c/o urgency and frequency. UA sent to lab. pt is menstruating. Initial BP 108/62 Temp 98.4 Wt 118 lbs (53.5kg) LMP 12/11/2004 Estimated Body Mass Index is 20.57 kg/(m^2) as calculated from: Height of 5' 3.5 (1.613m) as of 05/05/03 Weight of 118 lbs (53.524 kg) as of this encounter . BP completed using cuff size: regular. Flash Mahmood LPN documented in this encounter Plan of Treatment Not on filedocumented as of this encounter Procedures Procedure Name Priority Date/Time Associated Diagnosis Comme nts HCL UA MICRO IF Routine 12/16/2004 9:29 AM Urinary Frequency R esults for this POSITIVE CDT procedure are i n the results section. documented in this encounter Results UA MICRO IF POSITIVE (12/16/2004 9:29 AM CDT) [facility] Method Time Signature Color Urine Yellow [facility] Appearance Urine Clear [facility] Glucose Urine Negative NEG mg/dL [facility] Bilirubin Urine Negative NEG [facility] Ketones Urine Negative NEG mg/dL [facility] Specific Cardinal 1.025 1.001 - [place] Urine 1.035 [facility] Blood Urine Negative NEG [facility] pH Urine 5.5 5.0 - 7.0 [place] pH [facility] Protein Albumin Negative NEG mg/dL [facility] Urobilinogen 0.2 0.2 - 1.0 [place] Urine EU/dL [facility] Nitrite Urine Negative NEG [facility] Leukocyte Negative NEG [place] Esterase Urine [facility] Source Midstream [facility] Specimen Anatomical Collection Method Collection Time Receive d Time (Source) Location / / Volume Laterality 12/16/2004 9:29 AM 5 9:34 CDT AM CDT Adal Kincaid MD LABORATORY Performing Organization Address City/State/ZIP Code Phon e Number [facility] [address] [place], [place] [address] [address] [facility] documented in this encounter Visit Diagnoses Diagnosis Urinary frequency - Primary documented in this encounter Care Teams Director Of Online Merchandising Relationship Specialty Start Date End Date Adal Kincaid MD PCP - General 05/05/03 01/28/12 [address] [place] [address] documented as of this encounter
--- OUTSIDE RECORDS SUMMARY | 2022-06-06 21:10 | XMS_ITS | Encounter Summary ---
:1985 Author Organization [place] Address [address] [place] [address]. [place] [address] Care Team Providers Name Role Phone Adal Kincaid MD Primary Care Provider [phone] Encounter Details Date Type Department Care Team Description 06/19/[address] [facility] Adal Kincaid, Clinic [place] [address] [place] [address] [place] [address] [place], [place] [phone] (Wo rk) [address] [phone] Social History Tobacco Use Types Packs/Day Years [...] attend roman catholic or Patient refused 2021 episcopalian services? Do [...] Procedure Name Priority Date/Time Associated Comments Diagnosis C MAMMOGRAM, BOTH Routine 06/19/2003 2:13 PM Resu lts for this BREASTS (DIAG) AGRICULTURE INSPECTOR procedure are in the results section. HC ULTRASOUND Routine 06/19/2003 1:38 PM Results for this BREAST(S) AGRICULTURE INSPECTOR procedure are i n (UNILATERAL OR the results BILATERAL), REAL section. TIME W IMAGE documented in this encounter Results MAMMOGRAM, BOTH BREASTS (DIAG) (06/19/2003 2:13 PM AGRICULTURE INSPECTOR) Anatomical Region Laterality Modality Other Specimen (Source) Anatomical Collection Method Collection Time Re ceived Time Location / / Volume Laterality 06/19/2003 2:13 PM AGRICULTURE INSPECTOR Impressions 06/21/2003 9:48 AM AGRICULTURE INSPECTOR BREAST ULTRASOUND, LEFT - 06/19/2003 BREAST SYMPTOMS: Lump, left. FINDINGS: ??Only normal breast tissue i s seen in the region of the patient's palpable change in the upper-o uter portion of the left breast. IMPRESSION: CATEGORY 1 Negative ?? Addendum Begins DIAGNOSTIC MAMMOGRAM, BILATERAL - SYMPTO MATIC ?? BREAST SYMPTOMS: ??Lump. ?? PREVIOUS MAMMOGRAPHY: Comparison with [facility] dated 02/21/97. ?? BREAST PARENCHYMA: Heterogeneously dense . ?? Addendum Ends Adal Kincaid MD SPECIAL IMAGING STUDIES SONO BREAST (06/19/2003 1:38 PM AGRICULTURE INSPECTOR) Anatomical Region Laterality Modality Other Specimen (Source) Anatomical Collection Method Collection Time Re ceived Time Location / / Volume Laterality 06/19/2003 1:38 PM AGRICULTURE INSPECTOR Impressions 06/21/2003 9:48 AM AGRICULTURE INSPECTOR BREAST ULTRASOUND, LEFT - 06/19/2003 BREAST SYMPTOMS: Lump, left. FINDINGS: ??Only normal breast tissue i s seen in the region of the patient's palpable change in the upper-o uter portion of the left breast. IMPRESSION: CATEGORY 1 Negative ?? Addendum Begins DIAGNOSTIC MAMMOGRAM, BILATERAL - SYMPTO MATIC ?? BREAST SYMPTOMS: ??Lump. ?? PREVIOUS MAMMOGRAPHY: Comparison with [facility] dated 02/21/97. ?? BREAST PARENCHYMA: Heterogeneously dense . ?? Addendum Ends Adal Kincaid MD SPECIAL IMAGING STUDIES documented in this encounter Visit Diagnoses Not on filedocumented in this encounter Care Teams Senior Telecommunications Technician Relationship Specialty Start Date End Date Adal Kincaid MD PCP - General 05/05/03 01/28/12 [address] [place] [address] documented as of this encounter
--- OUTSIDE RECORDS SUMMARY | 2022-06-06 21:10 | XMS_ITS | Encounter Summary ---
:1985 Author Organization [place] Address [facility] [place] [address] Care Team Providers Name Role Phone Doctor, None MD Primary Care Provider Unavailable Encounter Details Date Type Department Care Team Description 05/25/[address] [facility] [place], HEMATURIA (Primary Clinic [place] Adal Moreira MD Dx) [address] [place] [address] [place] [place] [address] [place], [place] [phone] (Wo rk) [address] [phone] Social History Tobacco Use Types Packs/Day Years [...] you attend mandaeism or Patient refused 2021 rastafari services? Do [...] as of this encounter Visit Diagnoses Diagnosis Hematuria - Primary documented in this encounter Care Teams Inventory Coordinator Relationship Specialty Start Date End Date Doctor, None, PCP - General 09/10/01 05/04/03 documented as of this encounter
--- OUTSIDE RECORDS SUMMARY | 2022-06-06 21:10 | XMS_ITS | Encounter Summary ---
:1985 Author Organization [place] Address [address] [place] [address]. [place] [address] Care Team Providers Name Role Phone Doctor, None MD Primary Care Provider Unavailable Reason for Visit Reason Comments Travel Clinic consult Encounter Details Date Type Department Care Team Description 10/04/2002 Allied Health/Nurse Health [facility] [place] [facility] (consult) Visit Clinic [place] [address] [facility] [place] [address] Social History Tobacco Use Types Packs/Day Years [...] you attend jewish or Patient refused 2021 amish services? Do [...] documented as of this encounter Nursing Notes 10/04/2002 4:00 PM CST >> KATERINE GILBERT 10/04/2002 5:07 pm Itinerary: On a cruise to the [facility], and [place]. Departure Date: November 05 to November 12, 2002. IMMUNIZATION HISTORY Have you ever fainted from having your blood drawn or from an injection? No Have you ever had a fever reaction to vaccination? No Have you ever had any bad reaction or side effect from any vaccination? No Have you ever had hepatitis A or B vaccine? Yes, pt has had the Hepatitis B vaccination series. Do you live (or work closely) with anyone who has AIDS, an AIDS-like condition, any other immune disorder or who is on chemotherapy for cancer? No Do you have a family history of immunodeficiency? No Have you received any injection of immune globulin or any blood products during the past 12 months? No GENERAL MEDICAL HISTORY Do you have a medical condition that warrants maintenance medication or physician follow-up? No Do you have a medical condition that is stable now, but that may recur while traveling? No Have you had a fever in the past 48 hours? No Are you , or might you become on this trip? No Do you have AIDS, an AIDS-like condition, any other immune disorder, leukemia or cancer? No Do you have severe thrombocytopenia (low platelet count) or a coagulation disorder? No Have you ever had a convulsion, seizure, epilepsy, neurologic condition or brain infection? No Do you have any stomach conditions? No Do you have a G6PD deficiency? No Do you have bowel conditions such as diarrhea or constipation? No Have you ever had hepatitis or yellow jaundice? No Do you have a history of psychiatric problems? No Do you have a problem with strange dreams and/or nightmares? No Do you have insomnia? No Do you have problems with vaginitis? No Do you have psoriasis? No Do you have any eye conditions? No Are you prone to motion sickness? No Subjective: Patient here for immunizations prior to traveling to [place], [facility] and [place]. Tameka denies any symptoms of fever, cough or URI. Objective: Travel itinerary and immunization history completed. Assessment: International travel medical questionnaire completed. Ok to give vaccines. Plan: Pt denies the need for malaria medication and denies the need for an antibiotic for traveler's diarrhea. Patient education reviewed and given to Tameka Post Travel Period sheet discussed. Tameka advised to stay after injection per protocol. Patient will only be in [facility] for one day from 9am to 5pm. Katerine Mackey RN ([place]) documented in this encounter Plan of Treatment Not on filedocumented as of this encounter Visit Diagnoses Diagnosis Need for prophylactic vaccination and in oculation against viral hepatitis Other specified counseling documented in this encounter Care Teams Strategic Buyer Relationship Specialty Start Date End Date Doctor, None, PCP - General 09/10/01 05/04/03 documented as of this encounter
--- OUTSIDE RECORDS SUMMARY | 2022-06-06 21:10 | XMS_ITS | Encounter Summary ---
:1985 Author Organization [place] Address [address] [place] [address]. [place] [address] Care Team Providers Name Role Phone Doctor, None MD Primary Care Provider Unavailable Encounter Details Date Type Department Care Team Description 05/26/2002 Orders Only [facility] HEM ATURIA (Primary Dx) [place] [facility] [address] [place] [address] Social History Tobacco Use [...] you attend adventism or Patient refused 2021 rastafarian services? Do [...] Comme nts HCL UA MICRO IF Routine 05/26/2002 12:55 PM Hematuria Resul ts for this POSITIVE CORONARY CARE UNIT NURSE procedure are i n the results section. documented in this encounter Results UA, MICRO IF* (05/26/2002 12:55 PM CORONARY CARE UNIT NURSE) [facility] gist Method Time Signature Color Urine Yellow [facility] Appearance Urine Clear [facility] Glucose Urine Negative NEG mg/dL [facility] Bilirubin Urine Negative NEG [facility] Ketones Urine Negative NEG mg/dL [facility] Specific [place] <=1.005 1.001 - [place] Urine 1.035 [facility] Blood Urine Negative NEG [facility] pH Urine 7.0 5.0 - 7.0 [place] pH [facility] Protein Albumin Negative NEG mg/dL [place] Urine [facility] Urobilinogen 0.2 0.2 - 1.0 [place] Urine EU/dL [facility] Nitrite Urine Negative NEG [facility] Leukocyte Negative NEG [place] Esterase Urine [facility] Source Midstream [facility] Specimen Anatomical Collection Method Collection Time Receive d Time (Source) Location / / Volume Laterality 05/26/2002 12:55 05/26/2002 PM CORONARY CARE UNIT NURSE 12:55 PM CORONARY CARE UNIT NURSE Adal Kincaid MD LABORATORY Performing Organization Address City/State/ZIP Code Phon e Number [facility] [address] [place], [place] [address] [address] [facility] documented in this encounter Visit Diagnoses Diagnosis Hematuria - Primary documented in this encounter Care Teams Bridge Manager Relationship Specialty Start Date End Date Jae Carson MD PCP - General 09/10/01 05/04/03 documented as of this encounter
--- OUTSIDE RECORDS SUMMARY | 2022-06-06 21:10 | XMS_ITS | Encounter Summary ---
:1985 Author Organization [place] Address [address] [place] [address]. [place] [address] Care Team Providers Name Role Phone Doctor, None MD Primary Care Provider Unavailable Encounter Details Date Type Department Care Team Description 05/04/2002 Orders Only [facility] MEDICAL EXAM [place] [facility] (Primary Dx) [address] [place] [address] Social History Tobacco Use [...] you attend methodist or Patient refused 2021 worship services? Do [...] Name Priority Date/Time Associated Comments Diagnosis HCL HEMOGLOBIN Routine 05/04/2002 8:50 AM Routine Medical Resu lts for this NONLAB CDT Exam procedure are i n the results section. HCL GLUCOSE Routine 05/04/2002 8:50 AM Routine Medical Result s for this CDT Exam procedure are i n the results section. CL AFF A.M.A. LIPID Routine 05/04/2002 8:50 AM Routine Medical Results for this PANEL CDT Exam procedure are i n the results section. documented in this encounter Results GLUCOSE (05/04/2002 8:50 AM CDT) P athologist Signature Glucose 84 60 - 115 [facility] mg/dL CLINIC LAB Specimen Anatomical Collection Method Collection Time Receive d Time (Source) Location / / Volume Laterality 05/04/2002 8:50 AM 2 8:52 CDT AM CDT Adal Kincaid MD LABORATORY Performing Organization Address City/State/ZIP Code Phon e Number [facility] [address] [place] [address] [facility] HGB (05/04/2002 8:50 AM CDT) athologist Signature Hemoglobin 13.0 11.7 - 15.7 [facility] g/dL [facility] Specimen Anatomical Collection Method Collection Time Receive d Time (Source) Location / / Volume Laterality 05/04/2002 8:50 AM 2 8:52 CDT AM CDT Adal Kincaid MD LABORATORY Performing Organization Address City/State/ZIP Code Phon e Number [facility] [address] [place], [place] [address] [address] [facility] A.M.A. LIPID PANEL (05/04/2002 8:50 AM CDT) athologist Signature Cholesterol 155 <200 mg/dL [facility] Comment: Cholesterol Reference Range: <200 ??The NCEP recommends further ? evaluation of: ? 1. ??Patients with cholesterol ? greater than 200 mg/dL ? if additional risk facto rs ? are present. ? 2. ??All patients with a ? cholesterol greater than ? 240 mg/dL. Triglycerides 65 <150 mg/dL [facility] HDL Cholesterol 45 >40 mg/dL [facility] LDL Cholesterol Calculated 96 <130 mg/dL [facility] VLDL-Cholesterol 13 0 - 30 mg/dL [facility] Cholesterol/HDL Ratio 3 0 - 5 [facility] Specimen Anatomical Collection Method Collection Time Receive d Time (Source) Location / / Volume Laterality 05/04/2002 8:50 AM 2 8:52 CDT AM CDT Adal Kincaid MD LABORATORY Performing Organization Address City/State/ZIP Code Phon e Number [facility] [address] [place] [address] [facility] documented in this encounter Visit Diagnoses Diagnosis Routine general medical examination at a health care facility - Primary documented in this encounter Care Teams International Account Representative Relationship Specialty Start Date End Date Doctor, Jae, PCP - General 09/10/01 05/04/03 documented as of this encounter
--- OUTSIDE RECORDS SUMMARY | 2022-06-06 21:10 | XMS_ITS | Encounter Summary ---
:1985 Author Organization [facility] Address [address] [place] [address]. [place] [address] Care Team Providers Name Role Phone Adal Kincaid MD Primary Care Provider [phone] Reason for Visit Reason Comments Physical Encounter Details Date Type Department Care Team Description 10/14/2004 Office Visit [facility] [place], ROUTINE ME DICAL EXAM (Primary Dx); [facility] [place] Adal Moreira MD INITIATE CONTRACEPT NEC [address] [place] [address] [place], [place] [phone] (Wo rk) [address] [phone] Social History Tobacco Use Types Packs/Day Years [...] you attend nondenominational or Patient refused 2021 zoroastrian services? Do [...] Sign Reading Time Taken Comments Blood Pressure 110/76 10/14/2004 10:30 AM SENIOR CONSULTING MANAGER Pulse 84 10/14/2004 10:30 AM SENIOR CONSULTING MANAGER Temperature - - Respiratory Rate - - Oxygen Saturation - - Inhaled Oxygen Concentration - - Weight 54.4 kg (120 lb) 10/14/2004 10:30 AM SENIOR CONSULTING MANAGER Height - - Body Mass Index 20.92 05/05/2003 2:00 PM CDT documented in this encounter Progress Notes Armand Kincaidna - 10/14/2004 10:26 AM CST pt is a 19 year old female who is seen here to day for physical,pt has periods- pap and breast exam(per pt request)rescheduled . last pap was 04/28,no abnormal pap in the past. pt also wants to discuss about birthcontrol pills,patch,depo inj.is sexually activ eand using condoms. pt also wants STD check,broke up with boy friend 2 mths ago. PAST MED HISTORY - Previous Medical History: None on file PAST SURGICAL HISTORY-Review of patient's past surgical history indicates: NONSPECIFIC PROCEDURE Comment: rt brest biopsy,benign SOC HISTORY- Social History Marital Status: Single Spouse Name: N/A Years of Education: N/A Number of Children: N/A Occupational History None on file Social History Main Topics Tobacco Use: Never Alcohol Use: No Drug Use: No Sexually Active: Yes Partners: Male Control/ Protection: Condom Other Topics Concern Social History Narrative None on file FAMILY HISTORY- Family History: Arthritis Mother Comment: degenerative in knees Lipids Mother Lipids Father Family History Negative Sister Family History Negative Sister Family History Negative Brother Family History Negative Brother MEDS -1. MULTIPLE VITAMINS OR TABS Route: Sig: Dispense: Refill: REVIEW OF SYSTEMS- GENERAL:negative HEENT-NEGATIVE CARDIO VASCULAR-negative RESPITORY-negative ABDOMEN-negative GENITO URINARY-negative MUSCULOSKELETAL negative PSYCH negative LAUNDRY AIDE:negative ENDO:negative PHYSICAL EXAMINATION- Blood pressure 110/76, pulse 84, weight 120 lbs (54.4 kg), last menstrual period 10/13/2004.. GENERAL:healthy, alert and no distress HEENT: pupils equal and reactive to light and accommodation, TMs clear, oropharynx clear CVS: regular rate and rhythm with normal S1, S2 ; no murmur, rub or gallops RESP: Normal - CTA without rales, rhonchi, or wheezing. ABD: no organomegaly, bowel sounds normal, soft, non-tender BREAST /;reschduled. EXT:Foot and ankle exam is normal. Color and temperature of the feet is normal. Peripheral pulses are palpable.. LAUNDRY AIDE:Cranial nerves 2-12 intact, motor strength intact, reflexes normal Urine HCG-negative ASSESSMENT & PLAN : V70.0 ROUTINE MEDICAL EXAM (primary encounter diagnosis) Plan: HGB, A.M.A. LIPID PANEL, ALANINE AMINO (ALT) (SGPT), A.M.A. BASIC METABOLIC PANEL, HIV-1/HIV-2, SCREEN, RPR SCREEN W/REFLEX TO CONFIRM, HCG, QUAL URINE V25.02 INITIATE CONTRACEPT NEC Plan: explained about the control options,pt opted BC pills,started on ortho-tricyclen as directed.explained clearly about the medication,insructions and side effects.use additional cotraception in the first mth of pill use. OR CONSULTING MANAGER documented in this encounter Nursing Notes 10/14/2004 10:30 AM CST >> WHITNEY DRAKE 10/14/2004 10:25 am Tameka Grissom presents for a fasting physical. Period started yesterday. Just broke up with boyfriend. Wants STD check. Initial BP 110/76 Pulse 84 Wt 120 lbs (54.4kg) LMP 10/13/2004 Estimated Body Mass Index is 20.92 kg/(m^2) as calculated from: Height of 5' 3.5 (1.613m) as of 05/05/03 Weight of 120 lbs (54.432 kg) as of this encounter . BP completed using cuff size: regular. documented in this encounter Plan of Treatment Not on filedocumented as of this encounter Procedures Procedure Name Priority Date/Time Associated Comments Diagnosis ZZCL AFF HCG, QUAL Routine 10/14/2004 10:56 AM Routine Medical Results for this URINE SENIOR CONSULTING MANAGER Exam procedure are i n the results section. CL AFF RPR SCREEN Routine 10/14/2004 10:42 AM Routine Medical Results for this W/REFLEX TO CONFIRM SENIOR CONSULTING MANAGER Exam procedur e are in the results section. HCL HEMOGLOBIN Routine 10/14/2004 10:42 AM Routine Medical Res ults for this NONLAB SENIOR CONSULTING MANAGER Exam procedure are i n the results section. HCL BASIC METABOLIC Routine 10/14/2004 10:42 AM Routine Medica l Results for this PANEL SENIOR CONSULTING MANAGER Exam procedure are i n the results section. HCL HIV 1 & 2 Routine 10/14/2004 10:42 AM Routine Medical Resu lts for this ANTIBODY SENIOR CONSULTING MANAGER Exam procedure are i n the results section. HCL ALT Routine 10/14/2004 10:42 AM Routine Medical Resul ts for this SENIOR CONSULTING MANAGER Exam procedure are i n the results section. CL AFF A.M.A. LIPID Routine 10/14/2004 10:42 AM Routine Medica l Results for this PANEL SENIOR CONSULTING MANAGER Exam procedure are i n the results section. documented in this encounter Results HCG, QUAL URINE (10/14/2004 10:56 AM SENIOR CONSULTING MANAGER) P athologist Signature HCG Qual Urine Negative NEG [facility] Specimen Anatomical Collection Method Collection Time Receive d Time (Source) Location / / Volume Laterality 10/14/2004 10:56 10/14/2004 AM SENIOR CONSULTING MANAGER 11:01 AM SENIOR CONSULTING MANAGER Adal Kincaid MD LABORATORY Performing Organization Address City/State/ZIP Code Phon e Number [facility] [address] [place], [place] [address] [address] [facility] RPR SCREEN W/REFLEX TO CONFIRM (10/14/2004 10:42 AM SENIOR CONSULTING MANAGER) Analysis Performed At Patho logist Time Signature Rapid Plasma Negative [facility]G [facility] Specimen Anatomical Collection Method Collection Time Receive d Time (Source) Location / / Volume Laterality 10/14/2004 10:42 10/14/2004 AM SENIOR CONSULTING MANAGER 10:47 AM SENIOR CONSULTING MANAGER Adal Kincaid MD LABORATORY Performing Organization Address City/State/ZIP Code Phon e Number [facility] [address] [place] [address] [facility] HIV-1/HIV-2, SCREEN (10/14/2004 10:42 AM SENIOR CONSULTING MANAGER) Analysis Performed At Patho logist Time Signature HIV 1&2 Negative NEG [facility] Antibody [facility] Specimen Anatomical Collection Method Collection Time Receive d Time (Source) Location / / Volume Laterality 10/14/2004 10:42 10/14/2004 AM SENIOR CONSULTING MANAGER 10:47 AM SENIOR CONSULTING MANAGER Adal Kincaid MD LABORATORY Performing Organization Address City/State/ZIP Code Phon e Number [facility] [address] [place] [address] [facility] A.M.A. BASIC METABOLIC PANEL (10/14/2004 10:42 AM SENIOR CONSULTING MANAGER) athologist Signature Sodium 140 133 - 144 [place] mmol/L [facility] Potassium 4.0 3.4 - 5.3 [place] mmol/L [facility] Chloride 104 94 - 109 [place] mmol/L [facility] Carbon Dioxide 29 20 - 32 [place] mmol/L [facility] Anion Gap 8 6 - 17 [place] mmol/L [facility] Glucose 86 60 - 110 [place] mg/dL [facility] Urea Nitrogen 10 5 - 24 [place] mg/dL [facility] Creatinine 0.70 0.60 - [place] 1.30 mg/dL [facility] GFR Estimate >80 >60 [place] mL/min/1.7 [facility] m2 LAB GFR Estimate If >80 >60 [facility] mL/min/1.7 [facility] m2 LAB Calcium 9.4 8.5 - 10.4 [place] mg/dL [facility] Specimen Anatomical Collection Method Collection Time Receive d Time (Source) Location / / Volume Laterality 10/14/2004 10:42 10/14/2004 AM SENIOR CONSULTING MANAGER 10:47 AM SENIOR CONSULTING MANAGER Adal Kincaid MD LABORATORY Performing Organization Address City/State/ZIP Code Phon e Number [facility] [address] [place] [address] [facility] ALANINE AMINO (ALT) (SGPT) (10/14/2004 10:42 AM SENIOR CONSULTING MANAGER) P athologist Signature ALT 47 0 - 50 U/L [facility] Specimen Anatomical Collection Method Collection Time Receive d Time (Source) Location / / Volume Laterality 10/14/2004 10:42 10/14/2004 AM SENIOR CONSULTING MANAGER 10:47 AM SENIOR CONSULTING MANAGER Adal Kincaid MD LABORATORY Performing Organization Address City/[facility] Code Phon e Number [place] [phone] [facility] [place] [address] [facility] (ABNORMAL) A.M.A. LIPID PANEL (10/14/2004 10:42 AM SENIOR CONSULTING MANAGER) athologist Signature Cholesterol 219 (H) 0 - 200 [facility] mg/dL [facility] Comment: Cholesterol Reference Range: <200 ??The NCEP recommends further ? evaluation of: ? 1. ??Patients with cholesterol ? greater than 200 mg/dL ? if additional risk facto rs ? are present. ? 2. ??All patients with a ? cholesterol greater than ? 240 mg/dL. Triglycerides 97 0 - 150 mg/dL [facility] HDL Cholesterol 71 >40 mg/dL [facility] LDL Cholesterol Calculated 129 0 - 129 mg/dL [facility] VLDL-Cholesterol 19 0 - 30 mg/dL [facility] Cholesterol/HDL Ratio 3.1 0.0 - 5.0 [facility] Specimen Anatomical Collection Method Collection Time Receive d Time (Source) Location / / Volume Laterality 10/14/2004 10:42 10/14/2004 AM SENIOR CONSULTING MANAGER 10:47 AM SENIOR CONSULTING MANAGER Adal Kincaid MD LABORATORY Performing Organization Address City/[facility]/ZIP Code Phon e Number [place] [phone] [place] [address] [facility] HGB (10/14/2004 10:42 AM SENIOR CONSULTING MANAGER) athologist Signature Hemoglobin 13.1 11.7 - 15.7 [place] g/dL CLINIC LAB Specimen Anatomical Collection Method Collection Time Receive d Time (Source) Location / / Volume Laterality 10/14/2004 10:42 10/14/2004 AM SENIOR CONSULTING MANAGER 10:47 AM SENIOR CONSULTING MANAGER Adal Kincaid MD LABORATORY Performing Organization Address City/State/ZIP Code Phon e Number [facility] [address] [place], [place] [address] [address] [facility] documented in this encounter Visit Diagnoses Diagnosis Routine general medical examination at a [facility] care facility - Primary General counseling for initiation of oth er contraceptive measures documented in this encounter Care Teams Health Center Manager Relationship Specialty Start Date End Date Adal Kincaid MD PCP - General 05/05/03 01/28/12 [address] [place] [address] documented as of this encounter
--- OUTSIDE RECORDS SUMMARY | 2022-06-06 21:10 | XMS_ITS | Encounter Summary ---
:1985 Author Organization [place] Address [address] [place] [address]. [place] [address] Care Team Providers Name Role Phone Adal Kincaid MD Primary Care Provider [phone] Doctor, None Primary Care Provider Unavailable Reason for Visit Reason Comments Physical Encounter Details Date Type Department Care Team Description 05/03/2002 Office Visit [facility] [place], ROUTINE ME DICAL EXAM; [facility] [place] Adal Moreira MD HEMATURIA [address] [place] [address] [place] [address] [place], [place] [phone] (Wo rk) [address] [phone] Social History Tobacco Use Types Packs/Day Years [...] you attend alevism or Patient refused 2021 episcopal services? Do [...] Sign Reading Time Taken Comments Blood Pressure 112/58 05/03/2002 8:30 AM CDT Pulse 68 05/03/2002 8:30 AM CDT Temperature - - Respiratory Rate - - Oxygen Saturation - - Inhaled Oxygen Concentration - - Weight 48.5 kg (107 lb) 05/03/2002 8:30 AM CDT Height 161.3 cm (5' 3.5) 05/03/2002 8:30 AM CDT Body Mass Index 18.66 05/03/2002 8:30 AM CDT Body Mass Index Percentile 14.77 % 05/03/2002 8:30 AM CD T Growth Chart: [facility] (Girls, 2-20 Years) documented in this encounter Progress Notes Mona Mishra - 08/10/2007 11:05 AM SCREEN PRINTING INSPECTOR Addended by: MONA MISHRA on: 08/10/2007 11:05:47 AM Modules accepted: Orders EN PRINTING INSPECTOR 05/03/2002 8:30 AM CDT pt is a 17 year old female who is seen here to day for physical,also requesting pap and pelvic.pt als o c/o blood in her urine twice last wk.no frequecy,urgency or burning.no fever. last pap was none.pt s 1 pap. PAST MED HISTORY -none PAST SURGICAL HISTORY-Review of patient's past surgical history ind icates: NONSPECIFIC PROCEDURE Comment: rt brest biopsy,hermila ign SOC HISTORY-Social History Marital Status: Single Spouse Name: Years of Education: Number of children: Social History Main Topics Tobacco Use: Never Alcohol Use: No Drug Use: No Sexually Active: Yes Partners with: Male Control/Protection: Condom FAMILY HISTORY-Review of p dario's family history indicates: Arthritis Mother Commen t: degenerative in knees Lipids Mother Lipids Father Family History Negative Sister Family History Negative Sister Family History Negative Brother Family History Negative Brother MEDS -none REVIEW OF [id number] TIVE CARDIO VASCULAR-negative RESPITORY-negative ABDOMEN-negative GENITO URINARY-as above MUSCULOSKEL ETAL negative PSYCH negative PHYSICAL EXAMINATION- Blood pressure 112/58, pulse 68, height 5' 3.5 ( 1.613m), weight 107 lbs (48.535 kg), last menstrual period 04/08/2002.. GENERAL:healthy, alert and no distress HEENT: pupils equal and reactive to light and accommodation, TMs clear, oropharynx clear CV S: regular rate and rhythm with normal S1, S2 ; no murmur, rub or gallops RESP: Normal - CTA without rales, rhonchi, or wheezing. ABD: no organomegaly, bowel sounds normal, soft, non-tender BREAST :Elen asts are symmetric.severely fibro cystic. No dominant, discrete, fixed or suspicious masses are not ed. No skin or nipple changes or axillary nodes. Self exam is taught and encouraged.. : Vagina and vulva are normal; no discharge is noted.Adnexa normal in size without masses or tenderness..pap obt ained,no cervical motion tenderness. EXT:Foot and ankle exam is normal. Color and temperature of the feet is normal. Peripheral pulses are palpable.. RN INTEGRATED:Cranial nerves 2-12 intact, motor strength intac t, reflexes normal ASSESSMENT & PLAN : ANNUAL PHYSICAL-Check HGB,GLUCOSE,FASTING LIPIDS. HEALTH M AINTAINENCE- PAP obtained,Encourage monthly self breast exam. HEMATURIA-check UA r/o UTI. documented in this encounter Nursing Notes 05/03/2002 8:30 AM CDT >> ERICKA MIRELES 05/03/2002 8:38 am Needs pap, non-fasting. C/o bloodin urine x 2 over past week. denies pain, some frequency. Ericka Mireles RN documented in this encounter Plan of Treatment Not on filedocumented as of this encounter Procedures Procedure Name Priority Date/Time Associated Comments Diagnosis HCL PAP THIN LAYER Routine 05/11/2002 Routine Medical SCREEN Exam HCL URINALYSIS WITH Routine 05/03/2002 9:09 AM Hematuria Re sults for this MICROSCOPIC CDT procedure are i n the results section. documented in this encounter Results THIN LAYER PAP SCREEN(METRO) (05/11/2002) Narrative This result has an attachment that is no t available. Adal Kincaid MD LABORATORY (ABNORMAL) URINALYSIS, COMPLETE (05/03/2002 9:09 AM CDT) [facility] Method Time Signature Color Urine Jess [facility] Appearance Urine Slightly [place] Cloudy [facility] Glucose Urine Negative NEG mg/dL [facility] Bilirubin Urine Negative NEG [facility] Ketones Urine Negative NEG mg/dL [facility] Specific [place] 1.010 1.001 - [place] Urine 1.035 [facility] pH Urine 5.5 5.0 - 7.0 [place] pH [facility] Protein Albumin 30 (A) NEG mg/dL [place] Urine [facility] Urobilinogen 0.2 0.2 - 1.0 [place] Urine EU/dL [facility] Nitrite Urine Negative NEG [facility] Blood Urine Large (A) NEG [facility] Leukocyte Negative NEG [place] Esterase Urine [facility] Source Voided Urine [facility] WBC Urine 0-2 0 - 2 [place] /HPF [facility] RBC Urine >100 0 - 2 [place] Abnorm Result /HPF [facility] Squamous EPI Few FEW /LPF [facility] Specimen Anatomical Collection Method Collection Time Receive d Time (Source) Location / / Volume Laterality 05/03/2002 9:09 AM 2 9:14 CDT AM CDT Adal Kincaid MD LABORATORY Performing Organization Address City/State/ZIP Code Phon e Number [facility] [address] [place], [place] [address] [address] [facility] documented in this encounter Visit Diagnoses Diagnosis Routine general medical examination at a health care facility Hematuria documented in this encounter Care Teams Systems Support Engineer Relationship Specialty Start Date End Date Adal Kincaid MD PCP - General 05/05/03 01/28/12 [address] [place] [address] Jae Carson MD PCP - General 09/10/01 05/04/03 documented as of this encounter
--- OUTSIDE RECORDS SUMMARY | 2022-06-06 21:10 | XMS_ITS | Encounter Summary ---
:1985 Author Organization [place] Address [address] [place] [address]. [place] [address] Care Team Providers Name Role Phone Adal Kincaid MD Primary Care Provider [phone] Reason for Visit Reason Comments Mass Encounter Details Date Type Department Care Team Description 06/13/2003 Office Visit [facility] ALISA Kincaid OR MA [facility] Adal Moreira MD BREAST (Primary Dx) [address] [place] [address] [place], [place] [phone] (Wo rk) [address] [phone] Social History Tobacco Use Types Packs/Day Years [...] you attend episcopalian or Patient refused 2021 episcopalian services? Do [...] Reading Time Taken Comments Blood Pressure 92/64 06/13/2003 10:15 AM HOMEWORKER Pulse 66 06/13/2003 10:15 AM HOMEWORKER Temperature - - Respiratory Rate 16 06/13/2003 10:15 AM HOMEWORKER Oxygen Saturation - - Inhaled Oxygen Concentration - - Weight 45.4 kg (100 lb) 06/13/2003 10:15 AM HOMEWORKER Height - - Body Mass Index 17.44 05/05/2003 2:00 PM CDT documented in this encounter Progress Notes 06/13/2003 10:15 AM HOMEWORKER pt is a 18 year old female who is seen here to day with c/o having found a breast lump in Lt breasts colleen 1mth,no tenderness,no nipple discharge.pt has fibrocystic breasts and had 1 cyst removed in 8th grade. Does monthly self breast exam.Lump has no relation to menstrual periods,had not changed in siz e or shape. Family h/o breast cancer -paternal aunt recently diagnosed. Review of patient's past dai gical history indicates: NONSPECIFIC PROCEDURE Comment: rt brest biopsy,benign Social History Marital Status: Single Spouse Name: Years of Education: Number of children: Social History Main Topi cs Tobacco Use: Never Alcohol Use: No Drug Use: No Sexually Act liudmila: Yes Partners with: Male Control/Protection: Condom CONSTITUTIONAL: NEGA TIVE BREAST:as above Blood pressure 92/64, pulse 66, resp. rate 16, weight 100 lbs (45.360 kg), last menstrual period 05/20/2003.: GENERAL:healthy, alert and no distress BREAST:Breasts are symmetric.mo deratly fibrocystic in upper outer quadrants.vague thickning at 1 clock position on lt breast. No ski n or nipple changes or axillary nodes. ASSESSMENT AND PLAN : 611.72 LUMP OR MASS IN BREAST (prima ry encounter diagnosis) Note:will get US of bilateral breasts. Plan: MAMMOGRAM, BOTH BREASTS (DIAG) documented in this encounter Nursing Notes 06/13/2003 10:15 AM CST >> MAURICE PATRICIO 06/13/2003 10:16 am Pt c/o bilateral lumps in breast since eighth grade. Did have 1 cyst removed at this time. Also had mammogram. Paternal aunt dx'd with breast cancer at age 42 recent. No other family hx. documented in this encounter Plan of Treatment Not on filedocumented as of this encounter Visit Diagnoses Diagnosis Lump or mass in breast - Primary documented in this encounter Care Teams Senior Interactive Producer Relationship Specialty Start Date End Date Adal Kincaid MD PCP - General 05/05/03 01/28/12 [address] [place] [address] documented as of this encounter
--- OUTSIDE RECORDS SUMMARY | 2022-06-06 21:10 | XMS_ITS | Encounter Summary ---
:1985 Author Organization [facility] [place] Address [address] [place] [address]. [place] [address] Care Team Providers Name Role Phone Doctor, None MD Primary Care Provider Unavailable Reason for Visit Reason Comments Erroneous encounter-disregard Encounter Details Date Type Department Care Team Description 05/26/2002 Telephone [facility] Adal Kincaid [facility] Cezar Moreira MD encounter-disregard [address] [place] [address] [place] [address] [place], [place] [phone] (Wo rk) [address] [phone] Social History Tobacco Use Types Packs/Day Years [...] you attend hindu or Patient refused 2021 druze services? Do [...] this encounter Miscellaneous Notes Telephone Encounter - 05/26/2002 11:59 PM MANAGER OF BROADCAST CONTENT >> RONALD HOUSE Ratna May 26, 2002 2:17 PM >> CALL RECEIVED. Contact: documented in this encounter Plan of Treatment Not on filedocumented as of this encounter Visit Diagnoses Not on filedocumented in this encounter Care Teams Community Board Member Relationship Specialty Start Date End Date Doctor, None, PCP - General 09/10/01 05/04/03 documented as of this encounter
--- OUTSIDE RECORDS SUMMARY | 2022-06-06 21:10 | XMS_ITS | Encounter Summary ---
:1985 Author Organization [facility] Address [address] [place] [address]. [place] [address] Care Team Providers Name Role Phone Adal Lawrence MD Primary Care Provider [phone] Reason for Visit Reason Comments Physical Encounter Details Date Type Department Care Team Description 05/05/2003 Office Visit [facility] [place], ROUTINE ME DICAL EXAM [facility] [place] Adal Moreira MD (Primary Dx) [address] [place] [address] [place], [place] [phone] (Wo rk) [address] [phone] Social History Tobacco Use Types Packs/Day Years [...] you attend voodoo or Patient refused 2021 quaker services? Do [...] Reading Time Taken Comments Blood Pressure 102/68 05/05/2003 2:00 PM CDT Pulse 10 05/05/2003 2:00 PM CDT Temperature - - Respiratory Rate 20 05/05/2003 2:00 PM CDT Oxygen Saturation - - Inhaled Oxygen Concentration - - Weight 45.4 kg (100 lb) 05/05/2003 2:00 PM CDT Height 161.3 cm (5' 3.5) 05/05/2003 2:00 PM CDT Body Mass Index 17.44 05/05/2003 2:00 PM CDT documented in this encounter Progress Notes 05/05/2003 2:00 PM CDT pt is a 18 year old female who is seen here to day for physical,also requesting pap and pelvic. last pap was 1 yr ago,no abnormal pap in the past. PAST MED HISTORY - There is no previous medical histor y on file. PAST SURGICAL HISTORY-Review of patient's past surgical history indicates: NONSPECIFIC PROCEDURE Comment: rt brest biopsy,benign SOC HISTORY-Socia l History Marital Status: Single Spouse Name: Years of Education: Number of children: Social History Main Topics Tobacco Use: Never Alcohol Use: No Drug Use: No Sexually Active: Yes Partner s with: Male Control/Protection: Condom FAMILY HISTORY-Review of patient's family history indicates: Arthritis Mother Comment: degenerative in knee s Lipids Mother Lipids Father Family History Negative Sister Family History Negative Sister Family History Negative Brother Family History Nega tive Brother MEDS -Meds as of 05/05/2003: TRIMOX 500 MG OR CAPS 1 CAPSULE EVER Y 8 HOURS(for strep throat) REVIEW OF SYSTEMS- GENERAL:negative HEENT-NEGATIVE CARDIO VASCULAR-negat liumdila RESPITORY-negative ABDOMEN-negative GENITO URINARY-negative MUSCULOSKELETAL negative PSYCH negati ve STRAP 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 AUTOMATIC:negative SKIN:negative PHYSICAL EXAMINATION- Blood pressure 102/68, pulse 10, resp. rate 20, height 5' 3.5 (1.613m), weight 100 lbs (45.360 kg), last menstrual period 04/08/2003.. GENERAL:healt hy, alert and no distress HEENT: pupils equal and reactive to light and accommodation, TMs clear, darline pharynx clear CVS: regular rate and rhythm with normal S1, S2 ; no murmur, rub or gallops RESP: Norm al - CTA without rales, rhonchi, or wheezing. ABD: no organomegaly, bowel sounds normal, soft, non-te nder BREAST :Breasts are symmetric.fibrocystic. No dominant, discrete, fixed or suspicious masses ar e noted. No skin or nipple changes or axillary nodes. Self exam is taught and encouraged.. : Vagin a and vulva are normal; no discharge is noted. Cervix normal.Adnexa normal in size withoutmasses o r tenderness..pap obtained,no cervical motion tenderness. EXT:Foot and ankle exam is normal. Color an d temperature of the feet is normal. Peripheral pulses are palpable.. STRAP 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 AUTOMATIC:Cranial nerves 2-12 intact, motor strength intact, reflexes normal ASSESSMENT & PLAN : V70.0 ROUTINE MEDICAL EXAM (primary e ncounter diagnosis) Plan: A THIN LAYER PAP SCREEN, CBC WITH PLATELETS, A.M.A. LIPID PANEL, ALA NINE AMINO (ALT) (SGPT), A.M.A. BASIC METABOLIC PANEL documented in this encounter Nursing Notes 05/05/2003 2:00 PM CDT >> MAURICE MIRELES 05/05/2003 1:44 pm Pt here for physical with pap. fasting, denies uti or vaginal sx. Maurice Mireles RN documented in this encounter Plan of Treatment Not on filedocumented as of this encounter Procedures Procedure Name Priority Date/Time Associated Diagnosis Comme nts CL AFF CBC WITH Routine 05/05/2003 2:02 PM Routine Medical Exa m Results for this PLATELETS CDT procedure are i n the results section. HCL BASIC METABOLIC Routine 05/05/2003 2:02 PM Routine Medical Exam Results for this PANEL CDT procedure are i n the results section. HCL ALT Routine 05/05/2003 2:02 PM Routine Medical Exam R esults for this CDT procedure are i n the results section. CL AFF A.M.A. LIPID Routine 05/05/2003 2:02 PM Routine Medical Exam Results for this PANEL CDT procedure are i n the results section. HCL PAP THIN LAYER Routine 05/05/2003 12:00 AM Routine Medical Exam Results for this SCREEN CDT procedure are i n the results section. documented in this encounter Results (ABNORMAL) A.M.A. BASIC METABOLIC PANEL (05/05/2003 2:02 PM CDT) athologist Signature Sodium 137 133 - 144 [place] mmol/L [facility] Potassium 3.8 3.4 - 5.3 [place] mmol/L [facility] Chloride 106 96 - 110 [place] mmol/L [facility] Carbon Dioxide 26 20 - 32 [place] mmol/L [facility] Anion Gap 4 (L) 6 - 17 [place] mmol/L [facility] Glucose 78 60 - 115 [place] mg/dL [facility] Urea Nitrogen 13 5 - 24 [place] mg/dL [facility] Creatinine 0.9 0.6 - 1.2 [place] mg/dL [facility] Calcium 9.4 8.7 - 10.8 [place] mg/dL [facility] Specimen Anatomical Collection Method Collection Time Receive d Time (Source) Location / / Volume Laterality 05/05/2003 2:02 PM 3 2:07 CDT PM CDT Adal Lawrence MD LABORATORY Performing Organization Address City/[facility]/ZIP Code Phon e Number [facility] [address] [place] [id number] [facility] ALANINE AMINO (ALT) (SGPT) (05/05/2003 2:02 PM CDT) athologist Signature ALT 23 0 - 35 U/L [facility] Specimen Anatomical Collection Method Collection Time Receive d Time (Source) Location / / Volume Laterality 05/05/2003 2:02 PM 3 2:07 CDT PM CDT Adal Lawrence MD LABORATORY Performing Organization Address City/[facility]/ZIP Code Phon e Number [facility] [address] [place] [address] [facility] A.M.A. LIPID PANEL (05/05/2003 2:02 PM CDT) athologist Signature Cholesterol 154 <200 mg/dL [facility] Comment: Cholesterol Reference Range: <200 ??The NCEP recommends further ? evaluation of: ? 1. ??Patients with cholesterol ? greater than 200 mg/dL ? if additional risk facto rs ? are present. ? 2. ??All patients with a ? cholesterol greater than ? 240 mg/dL. Triglycerides 65 <150 mg/dL [facility] HDL Cholesterol 61 >40 mg/dL [facility] LDL Cholesterol Calculated 80 <130 mg/dL [facility] VLDL-Cholesterol 13 0 - 30 mg/dL [place] [facility] Cholesterol/HDL Ratio 3 0 - 5 [facility] Specimen Anatomical Collection Method Collection Time Receive d Time (Source) Location / / Volume Laterality 05/05/2003 2:02 PM 3 2:07 CDT PM CDT Adal Lawrence MD LABORATORY Performing Organization Address City/State/ZIP Code Phon e Number [facility] [address] [place] [address] [facility] CBC WITH PLATELETS (05/05/2003 2:02 PM CDT) P athologist Signature WBC 10.4 4.0 - 11.0 [place] 10e9/L [facility] RBC Count 4.11 3.8 - 5.2 [place] 10e12/L [facility] Hemoglobin 13.0 11.7 - [facility] 15.7 g/dL [facility] Hematocrit 38.9 35.0 - [facility] 47.0 % [facility] MCV 95 78 - 100 [place] fl [facility] MCH 31.5 26.5 - [facility] 33.0 pg [facility] MCHC 33.4 32.0 - [facility] 36.0 g/dL [facility] RDW 11.5 10.0 - [facility] 15.0 % [facility] Platelet Count 198 150 - 450 [place] 10e9/L [facility] Specimen Anatomical Collection Method Collection Time Receive d Time (Source) Location / / Volume Laterality 05/05/2003 2:02 PM 3 2:07 CDT PM CDT Adal Lawrence MD LABORATORY Performing Organization Address City/[facility]/ZIP Code Phon e Number [facility] [address] [place], [place] [address] [address] [facility] A THIN LAYER PAP SCREEN (05/05/2003 12:00 AM CDT) Component Value Ref Test Analysis Performed At [facility] Range Method Time Signature Copath Report Patient Name: MARCELINO DALEY MR#: [id number] Specimen #: [id number] Collected: 05/05/03 Received: 05/11/03 Reported: 05/15/03 08:55 Ordering Phy(s): NORM [place] SPECIMEN/STAIN PROCESS: Pap thin layer prep screening ? Pap-Cyto x 1, Reflex HPV x 1 SOURCE: Cervical, endocervical ---- Pap thin layer prep screening SPECIMEN ADEQUACY: Satisfactory for evaluation. -Transitional zone component present. CYTOLOGIC INTERPRETATION: Negative for Intraepithelial Lesion or Malignancy Electronically signed out by: LANDEN Cordero (ASCP) Processed and screened at [facility] CLINICAL HISTORY: LMP: 04-08-2003 Previous normal pap: 1 year ago, Specimen (Source) Anatomical Collection Method Collection Time Re ceived Time Location / / Volume Laterality 05/05/2003 05/11/2003 1:49 PM CDT Adal Lawrence MD LABORATORY Performing Organization Address City/[facility]/ZIP Code Phon e Number [facility] documented in this encounter Visit Diagnoses Diagnosis Routine general medical examination at a health care facility - Primary documented in this encounter Care Teams Target Worker Relationship Specialty Start Date End Date Adal Lawrence MD PCP - General 05/05/03 01/28/12 [address] [place] [address] documented as of this encounter
--- OUTSIDE RECORDS SUMMARY | 2022-06-06 21:10 | XMS_ITS | Encounter Summary ---
:1985 Author Organization [facility] Address [address] [place] [address]. [place] [address] Care Team Providers Name Role Phone Adal Kincaid MD Primary Care Provider [phone] Reason for Visit Reason Comments Chalazion Encounter Details Date Type Department Care Team Description [facility]/26[facility] [address] [place] [id number] [place], [place] [id number] Social History Tobacco Use Types Packs/Day Years [...] you attend holiness or Patient refused 2021 holiness services? Do [...] documented as of this encounter Progress Notes 08/26/2003 11:59 PM SUPERVISOR BINDERY Plan: Warm compresses QID. F/U PMD. This information has been abstracted from the Chart. Electr onically filed by Esha King 09/14/2003 12:56 PM documented in this encounter Plan of Treatment Not on filedocumented as of this encounter Visit Diagnoses Not on filedocumented in this encounter Care Teams Bottom Ironer Relationship Specialty Start Date End Date Adal Kincaid MD PCP - General 05/05/03 01/28/12 [address] [place], [place] [address] documented as of this encounter
--- OUTSIDE RECORDS SUMMARY | 2022-06-06 21:10 | XMS_ITS | Encounter Summary ---
:1985 Author Organization [facility] Address [address] [place] [address]. [place] [address] Care Team Providers Name Role Phone Adal Kincaid MD Primary Care Provider [phone] Reason for Visit Reason Comments Sinus Problem Encounter Details Date Type Department Care Team Description 04/23/2004 Abstract [facility] Go Toy tadeo MD [facility] RETIRED [address] [address] [place], [place] [address] [phone] Social History Tobacco Use Types Packs/Day Years [...] you attend rastafari or Patient refused 2021 amish services? Do [...] documented as of this encounter Progress Notes 04/23/2004 11:59 PM CDT Humidity Augmentin Jenn D THIS INFORMATION HAS BEEN ABSTRACTED FROM THE URGENT CARE CHART documented in this encounter Plan of Treatment Not on filedocumented as of this encounter Visit Diagnoses Not on filedocumented in this encounter Care Teams Equipment Application Specialist Relationship Specialty Start Date End Date Adal Kincaid MD PCP - General 05/05/03 01/28/12 [address] [place] [address] documented as of this encounter
--- OUTSIDE RECORDS SUMMARY | 2022-06-06 21:10 | XMS_ITS | Encounter Summary ---
:1985 Author Organization [facility] Address [address] [place] [address]. [place] [address] Care Team Providers Name Role Phone Adal Kincaid MD Primary Care Provider [phone] Doctor, None Primary Care Provider Unavailable Reason for Visit Reason Comments Pharyngitis Family hx Strep Encounter Details Date Type Department Care Team Description 05/01/2003 Abstract [facility] Go Toy tadeo MD [facility] RETIRED [address] [address] [place], [place] [address] [phone] Social History Tobacco Use Types Packs/Day Years [...] you attend sabianism or Patient refused 2021 baptist services? Do [...] documented as of this encounter Progress Notes 05/01/2003 11:59 PM CDT Amoxicillin Advil This information was abstracted from the CHART. documented in this encounter Plan of Treatment Not on filedocumented as of this encounter Visit Diagnoses Not on filedocumented in this encounter Care Teams Dietitian Chief Relationship Specialty Start Date End Date Adal Kincaid MD PCP - General 05/05/03 01/28/12 [address] [place] [address] Doctor, None, PCP - General 09/10/01 05/04/03 documented as of this encounter
--- OUTSIDE RECORDS SUMMARY | 2022-06-06 21:20 | XMS_ITS | Encounter Summary ---
:1985 Author Organization [facility] Address [address] [place] [address]. [place] [address] Care Team Providers Name Role Phone Adal Kincaid MD Primary Care Provider [phone] Reason for Visit Reason Comments Mass lump under arm and on neck Encounter Details Date Type Department Care Team Description 01/07/2007 Office Visit [facility] Samson Vargas MD VACCINE FOR DIPTH/TET/PERTUSS; [facility] [place] [address] ENLARGEMENT LYMPH NODES [address] [place] [id number] [phone] Social History Tobacco Use Types Packs/Day Years [...] you attend pentecostalism or Patient refused 2021 yazdanism services? Do [...] Sign Reading Time Taken Comments Blood Pressure 108/64 01/07/2007 11:00 AM CDT Pulse 72 01/07/2007 11:00 AM CDT Temperature - - Respiratory Rate - - Oxygen Saturation - - Inhaled Oxygen Concentration - - Weight 47.6 kg (105 lb) 01/07/2007 11:00 AM CDT Height - - Body Mass Index 18.6 10/12/2006 1:45 PM CDT documented in this encounter Progress Notes Samson Vargas - 01/07/2007 11:30 AM CDT Pt reports a concern with noting a new lump in her left lower posterior neck just yesterday. No fever or chills, No ear ache, sore throat or sinus pain. OBJECTIVE: Well-appearing young female in no distress. BP 108/64 Pulse 72 Wt 105 lbs (47.6kg) LYMPH: 1-2 shotty posterior cervical nodes on the right, one on the left closer to the supraclavicular region. No other cervical or supraclavicular lymphadenopathy. ASSESSMENT/PLAN: V06.1 VACCINE FOR DIPTH/TET/PERTUSS Plan: TDAP (ADACEL AGES 11-64) 785.6 ENLARGEMENT LYMPH NODES Note: Likely benign, reactive posterior cervical lymph nodes. Reassurance provided for now. Considerfurther testing and possibly biopsy if persists for several weeks or if nodes increase in size or number. Plan: Pt to f/u with Dr Kincaid in about two weeks for periodic exam. documented in this encounter Nursing Notes 01/07/2007 11:00 AM CDT >> ERICK LAGUERRE 01/07/2007 11:28 am TDAP vaccine given today. Erick Laguerre BAGGER AND STOCK HANDLER HELPER >> ERICK LAGUERRE 01/07/2007 11:07 am Patient presents with: Mass - lump under arm and on neck Initial BP 108/64 Pulse 72 Wt 105 lbs (47.6kg) Estimated Body mass index is 18.60 kg/(m^2) as calculated from: Height of 5' 3 (1.600 m) as of 10/12/06 Weight of 105 lbs (47.628 kg) as of this encounter BP completed using cuff size: regular. Erick Mikode BAGGER AND STOCK HANDLER HELPER documented in this encounter Plan of Treatment Not on filedocumented as of this encounter Visit Diagnoses Diagnosis Need for prophylactic vaccination with c ombined hksenexipm-gfziout-lkklswxee (DTP) vaccine Enlargement of lymph nodes documented in this encounter Care Teams Cutting Machine Operator Relationship Specialty Start Date End Date Adal Kincaid MD PCP - General 05/05/03 01/28/12 [address] [place] [address] documented as of this encounter
== END 2022-06-06 21:16 | disposition home or self-care (01) ==
LOC: ED 20:53
PROVIDERS: Emergency Provider Internal Medicine
DX: M54.16 Radiculopathy, lumbar region (principal)
CPT/HCPCS: 99282; 99283

== ENCOUNTER 2022-08-01 09:44 | Emergency (ER) | payer OTHER, SELFPAY ==
[2022-08-01 09:52] VITALS: BP 107/71; PULSE 108; RESP 16; TEMP 36.3; O2SAT 100
--- NOTE | 2022-08-01 12:08 | CRLHL7_ITS ---
For Patients: As a result of the Century Cures Act, medical imaging exams and procedure reports are released immediately into your electronic medical record. You may view this report before your referring provider. If you have questions, please contact your health care provider. INDICATION: Chest pain TECHNIQUE: Chest radiograph 2 views COMPARISON: 03/21/2021 FINDINGS: Mediastinum: The mediastinum is normal in appearance. The heart silhouette is normal in size and morphology. Lung: Bilateral pulmonary hyperinflation and lucency noted, suggestive of severe, stable pulmonary emphysema. There is a 4 mm nodule in the right lateral lung base, not definitely seen on prior exam. No sign of pleural effusion seen. No pneumothorax is identified. Bone and Soft tissue: Unremarkable for age. IMPRESSIONS: 1. Bilateral pulmonary hyperinflation and lucency noted, suggestive of severe, stable pulmonary emphysema. 2. There is a 4 mm nodule in the right lateral lung base, not definitely seen on prior exam. Follow-up chest radiograph in 3 months is recommended to document stability. Dictated by Isak Deal MD @ 08/01/2022 1:26:30 PM Prelim Report By Dr. Isak Deal @ 08/01/2022 1:26:34 PM ADDENDUM I have reviewed this exam with Dr. Ames who informed me that the patient does not have a history of smoking. In this case, the large lung volumes may be due to air trapping from small airways disease, bronchiolitis, or asthma. Dictated by: MD @ 08/01/2022 13:49:17 (Electronically Signed)
--- NOTE | 2022-08-01 12:44 | ED_ITS ---
HPI - General Adult General Date Seen: 08/01/22 Chief complaint: Chest Pain Stated complaint: Chest pain, left arm tingling Time Seen by Provider: 08/01/22 11:29 Source: patient History of Present Illness HPI narrative: Patient is a 37-year-old generally healthy woman who presents for evaluation of chest pain. She says yesterday she had some left-sided chest pressure throughout the day. That is resolved, but when she woke up this morning she had some numbness in her left hand. She thought she had maybe slept wrong on her arm, but throughout the day she has been having zings of sharp localized left chest pain lasting a second or two. She is home with her 2 young children, she says her is out of town and she started to worry that she might have heart attack while her was gone so she thought she better get all of this checked out. She does note that she has been under more stress than usual, she has a new position at work, and her children have been home for the past 2 weeks due to [place] break, so she knows that she has been more stress than usual. She does note that she previously took anxiety medication but she quit that a couple of months ago. She notes that she is generally a fairly anxious person, she tends to worry a lot, and she suggests that these symptoms may be simply related anxiety, but she knew she would be able to stop wearing until she got them checked out. She denies any pleuritic pain, no shortness of breath, no lower extremity swelling or pain. She did have minor surgery a couple weeks ago to have a polyp removed from her ovary. She has no history of DVT or PE. No family history. She does take oral contraceptives. She does not smoke, rare alcohol. Denies other medical history. Related Data Home Medications Medication Instructions Recorded Confirmed norgestimate-ethinyl estradiol 1 tab PO DAILY 06/06/22 08/01/22 0.18 mg/0.215mg/0.25mg-35 mcg(28)tablet Allergies Allergy/AdvReac Type Severity Reaction Status Date / Time No Known Drug Allergies Allergy Verified 06/06/22 20:28 Review of Systems Status of ROS: Reports: 10 or more systems reviewed and unremarkable except as noted in History and below PFSH PFSH Social History Smoking Status: Never smoker Do you use any of these nicotine containing products: None Second hand tobacco smoke exposure: No How often do you have a drink containing alcohol: never How often do you have six or more drinks on one occasion: Never AUDIT-C Alcohol total score: 0 Non-prescribed substance use: denies use service: No Exam Narrative: Exam Narrative: Vital signs as noted above. In general, an alert, well-appearing patient. Head: Normocephalic, atraumatic. Eyes: Pupils are equal reactive. Extraocular movements are full. Conjunctivae are normal. ENT: Mucous membranes are moist. Throat is normal. Neck: Supple without lymphadenopathy. Heart: Regular rate and rhythm. No murmur or rub. Lungs: Clear bilaterally. No increased work of breathing, crackles or wheezes. Abdomen: Soft and nontender. No organomegaly. Extremities: Well perfused. No edema. No calf tenderness. Pulses intact. Neurologic: Patient is alert and oriented to person and place. Speech is fluent. Face is symmetric. Moves all extremities equally. Affect: Normal. Skin: Warm and dry. Well perfused. Const: Vital Signs, click to edit/add: Vital Signs - 24 hr 08/01/22 09:52 08/01/22 14:19 08/01/22 14:20 Temperature 97.4 F L 97.4 F L Pulse Rate [Right Pulse Oximeter] 108 H 87 87 Respiratory Rate 16 14 14 Blood Pressure [Ri ght Upper Arm] 107/71 114/75 114/75 Pulse Oximetry 100 100 Oxygen Delivery Me thod Room Air Documenting provider has reviewed patient's vital signs: yes Course Course Hospital Course: On arrival, patient had an EKG which by my review shows a sinus tachycardia, ventricular rate of 109 beats per minute. No acute ST segment changes. In talking with her, she is very pleasant, does not seem significantly anxious but certainly does seem to be in general a fairly high strong person and by her admission tends to worry quite a bit. Symptoms overall have been changing over the past day with some pressure yesterday and now brief episodes of sharp localized pain. Her health is good, my suspicion for this representing acute coronary syndrome is quite low. EKG does not show anything suggestive of pericarditis. She does have some tachycardia, she takes oral contraceptives and I think a D-dimer is reasonable to screen for pulmonary embolism. A chest x-ray my review does not show evidence of pneumothorax, pleural effusion, infiltrate. Final radiology report is read as showing stable severe emphysema. I looked back at her previous chest x-ray which was read as normal. The 2 chest x-rays looks similar to me, so I did talk with the radiologist as to how 1 could be read as normal in the other read as stable severe emphysema. Patient does not smoke, general health is unremarkable. He felt that she did show evidence of air trapping on today's x-ray. She does have a small nodule on the right that he felt needed followed up with a chest x-ray. I do not think she likely has severe emphysema. She needed to leave and go moss picker her kids and I was tied up with a critically ill patient at the time that she needed to leave so was not able to discuss this in person with her. Her labs were all reassuring, D-dimer was negative and I think in the absence of significant suspicion of PE that this is adequate to rule this out. Her troponin was negative, she had does not have evidence of myocarditis or pericarditis and I do not suspect that this is related to coronary artery disease. Did talk about her anxiety and how this might be coming into play. She will give some consideration as to whether she wants to restart medication for anxiety and will discuss that with her primary care provider. No evidence of a significant cause for chest pain today. Follow-up with primary care regarding repeat chest x-ray. Vital Signs Vital signs: Initial Vital Signs Temperature 97.4 F L 08/01/22 09:52 Temperature Source Temporal Artery Scan 08/01/22 09:52 Pulse Rate 108 H 08/01/22 09:52 Pulse Rhythm 08/01/22 09:52 Respiratory Rate 16 08/01/22 09:52 Blood Pressure 107/71 08/01/22 09:52 Blood Pressure Mean 83 08/01/22 09:52 Blood Pressure Position Sitting 08/01/22 09:52 Pulse Oximetry 100 08/01/22 09:52 Oxygen Delivery Method 08/01/22 09:52 Vital Signs Temperature 97.4 F L 08/01/22 09:52 Pulse Rate 108 H 08/01/22 09:52 Respiratory Rate 16 08/01/22 09:52 Blood Pressure 107/71 08/01/22 09:52 Pulse Oximetry 100 08/01/22 09:52 Oxygen Delivery Method 08/01/22 09:52 Temperature 97.4 F L 08/01/22 14:19 Pulse Rate 87 08/01/22 14:20 Respiratory Rate 14 08/01/22 14:20 Blood Pressure 114/75 08/01/22 14:20 Pulse Oximetry 100 08/01/22 14:20 Oxygen Delivery Method 08/01/22 09:52 Medical Decision Making Lab Data Labs: Lab Results 08/01/22 08/01/22 08/01/22 Range/Units 12:45 12:45 12:45 WBC 7.59 (4.50-11.00) K/uL RBC 3.81 L (4.00-5.20) m/uL Hgb 11.9 L (12.0-16.0) gm/dL Hct 36.1 (33.0-51.0) % MCV 95 (80-100) fL MCH 31 (26-34) pg MCHC 33 (32-36) gm/dL RDW Coeff of Kj 12.2 (11.5-15.5) % Plt Count 207 (140-440) K/uL Neut % (Auto) 66.6 (42.0-72.0) % Lymph % (Auto) 27.3 (20-44) % Green % (Auto) 4.1 (0.0-11.0) % Eos % (Auto) 1.3 (0.0-7.0) % Baso % (Auto) 0.4 (0.0-3.0) % Neut # (Auto) 5.06 (1.7-7.0) K/uL Lymph # (Auto) 2.07 (0.90-2.90) K/uL Green # (Auto) 0.30 (0.00-0.90) K/UL Eos # (Auto) 0.10 (0.00-0.50) K/uL Baso # (Auto) 0.03 (0.00-0.30) K/uL D-Dimer Quant (PE/DVT) 0.39 (0.00-0.50) ug/ml Sodium 138 (135-149) mmol/L Potassium 4.2 (3.6-5.1) mmol/L Chloride 106 (96-114) mmol/L Carbon Dioxide 27 (20-32) mmol/L BUN 13 (5-24) mg/dL Creatinine 0.7 (0.5-1.5) mg/dL Estimated Creat Clear 88.27 Estimated GFR 113 ml/min Glucose 86 (60-115) mg/dL Calcium 8.8 (8.4-10.6) mg/dL Troponin I < 0.01 L (0.01-0.04) ng/mL C-Reactive Protein 1.3 H (0.5-1.0) mg/dL Discharge Plan Discharge Clinical Impression: Atypical chest pain Patient Disposition: Home, Self-Care Condition: Stable Instructions: Chest Pain (ED) Additional Instructions: Labs today are all reassuring. I do not find any evidence of heart heart attack, blood clot, or other serious cause for your chest pain. The radiologist notes a tiny spot on your chest x-ray which may even be something just on your skin, but he would recommend a repeat x-ray in a few months make sure that that has not changed. Prescriptions: No Action norgestimate-ethinyl estradiol 0.18/0.215/0.25 mg-35 mcg (28) tablet 1 tab PO DAILY Label Comments: TAKE 1 TABLET BY MOUTH EVERY DAY Follow Up/Referrals: Provider,Not a Local [Primary Care Provider] - Stand Alone Forms: [facility] Info Instructions
[2022-08-01 12:58] LABS: Basophils Absolute Auto 0.03 K/uL (0.00-0.30); Basophils Percent Auto 0.4 % (0.0-3.0); Eosinophils Percent Auto 1.3 % (0.0-7.0); Hematocrit 36.1 % (33.0-51.0); Hemoglobin* 11.9 gm/dL (12.0-16.0); Immature Granulocytes Abs Auto 0.02 K/uL (0.00-0.30); Immature Granulocytes Pct Auto 0.3 %; Lymphocytes Absolute Auto 2.07 K/uL (0.90-2.90); Lymphocytes Percent Auto 27.3 % (20-44); Mean Corpuscular HGB Conc 33 gm/dL (32-36); Mean Corpuscular Hemoglobin 31 pg (26-34); Mean Corpuscular Volume 95 fL (80-100); Monocytes Percent Auto 4.1 % (0.0-11.0); Neutrophils Absolute Auto 5.06 K/uL (1.7-7.0); Neutrophils Percent Auto 66.6 % (42.0-72.0); Platelet Count* 207 K/uL (140-440); RDW Coefficient of Variation % 12.2 % (11.5-15.5); Red Blood Count 3.81 m/uL (4.00-5.20); White Blood Count* 7.59 K/uL (4.50-11.00)
[2022-08-01 13:02] LABS: Slide Review Reflex No
[2022-08-01 13:08] LABS: Chloride* 106 mmol/L (96-114); Sodium* 138 mmol/L (135-149)
[2022-08-01 13:09] LABS: Potassium* 4.2 mmol/L (3.6-5.1)
[2022-08-01 13:11] LABS: Creatinine* 0.7 mg/dL (0.5-1.5); Est. Creatinine Clearance* 88.27; Estimated Glomerular Filt Rate 113 ml/min
[2022-08-01 13:12] LABS: Blood Urea Nitrogen* 13 mg/dL (5-24); Calcium* 8.8 mg/dL (8.4-10.6); Carbon Dioxide* 27 mmol/L (20-32); Glucose* 86 mg/dL (60-115)
[2022-08-01 13:15] LABS: C Reactive Protein* 1.3 mg/dL (0.5-1.0); D Dimer Quantitative* 0.39 ug/ml (0.00-0.50)
[2022-08-01 13:25] LABS: Troponin I* < 0.01 ng/mL (0.01-0.04)
[2022-08-01 14:19] VITALS: BP 114/75; PULSE 87; RESP 14; TEMP 36.3
[2022-08-01 14:20] VITALS: BP 114/75; PULSE 87; RESP 14; O2SAT 100
== END 2022-08-01 14:20 | disposition home or self-care (01) ==
PROVIDERS: Emergency Provider Emergency Medicine
DX: R07.9 Chest pain, unspecified (principal)
CPT/HCPCS: 36415; 71046; 80048; 84484; 85025; 85379; 86140; 93005; 99284; 99285

== ENCOUNTER 2023-05-12 09:53 | Emergency (ER) | payer OTHER, SELFPAY ==
[2023-05-12 09:59] VITALS: BP 145/75; PULSE 92; RESP 18; TEMP 36.7; O2SAT 100
--- NOTE | 2023-05-12 11:12 | CRLHL7_ITS ---
For Patients: As a result of the Century Cures Act, medical imaging exams and procedure reports are released immediately into your electronic medical record. You may view this report before your referring provider. If you have questions, please contact your health care provider. INDICATION: Left flank pain, urinary frequency COMPARISON: None. TECHNIQUE: CT of the abdomen and pelvis without intravenous contrast. Multiplanar axial, coronal, and sagittal reformats were reconstructed. Intravenous contrast: None. Oral contrast was not administered. FINDINGS: Lung bases: Normal. Liver: Normal size and non-contrast attenuation. Gallbladder and biliary tree: Normal gallbladder. No biliary duct dilation. Pancreas: Normal. Spleen: Normal size. Adrenal glands: Normal. No nodules. Kidneys and bladder: Normal size and position. No obvious cyst or mass. No calculi. No urinary tract dilation. The urinary bladder is normal. GI: Normal. No dilated segments. No abnormal bowel wall thickening. Moderate stool burden, primarily in the cecum. The appendix is not discretely seen. Vessels: Normal caliber abdominal aorta with no calcified atherosclerotic plaques. Peritoneum: No free fluid. Lymph nodes: No adenopathy. Pelvis: Physiologic appearance of the pelvic reproductive organs. Bones: No fractures. No focal bone lesions. Normal for age. IMPRESSION: Normal CT of the abdomen and pelvis without contrast. Please note that all CT scans at this facility use dose modulation, iterative reconstruction, and/or weight-based dosing when appropriate to reduce radiation dose to as low as reasonably achievable. Dictated by Karon Redman MD @ 05/12/2023 12:17:35 PM (Electronically Signed)
--- NOTE | 2023-05-12 11:13 | ED_ITS ---
HPI - General Adult General Time Seen by Provider: 11:13 Date Seen: 05/12/23 Chief complaint: Back Injury/Pain Stated complaint: L side pain Time Seen by Provider: 05/12/23 10:46 History of Present Illness HPI narrative: This is a pleasant 38-year-old female with a past medical history that includes previous right-sided kidney stone, pneumonia last year, pulmonary nodule seen on CT scan last year with follow-up imaging suggesting benign, previous kidney infection. She presents to the ER today for evaluation of left flank and low back pain. She recalls that for the past several weeks she has been having some epigastric right upper quadrant pain. She saw her primary care provider. She is going to schedule for an outpatient gallbladder ultrasound and an outpatient EGD to evaluate those pains. She is not really having pain in that area today or lately. Since yesterday she has been having pain involving her left flank. No new trauma. She does recall that about 3 weeks ago she accidentally got her foot tangled up in the blankets of her bed and fell to the floor. She did bruise her left foot have a little bit of pain in her left thigh after that but that is now better. She began to have left flank pain yesterday without any known injury. It is just an ache. It comes and goes without a clear trigger. It is not severe or unrelenting but it is uncomfortable. She also notes the past couple of days she has had some urinary frequency. No dysuria, or visible hematuria. She also notes a small tinge of pinkish vaginal discharge but no vaginal bleeding but she is due to get her menstrual cycle in a couple of days. She was sexually active with her last night and she attributes the pink to that event. No fever or chills. No rash. No known injury. No numbness or weakness down her leg. Bowel movements normal. No cough. No rib pain or chest pain. She is not short of breath. No swelling in her legs Related Data Home Medications Medication Instructions Recorded Confirmed norgestimate-ethinyl estradiol 1 tab PO DAILY 06/06/22 08/01/22 0.18 mg/0.215mg/0.25mg-35 mcg(28)tablet Allergies Allergy/AdvReac Type Severity Reaction Status Date / Time No Known Drug Allergies Allergy Verified 06/06/22 20:28 PFSH PFS Social History Smoking Status: Never smoker Do you use any of these nicotine containing products: None Second hand tobacco smoke exposure: No How often do you have a drink containing alcohol: never How often do you have six or more drinks on one occasion: Never AUDIT-C Alcohol total score: 0 Non-prescribed substance use: denies use service: No Exam Narrative: Exam Narrative: Constitutional: Appears well-developed and well-nourished. Alert. Conversant. Non toxic. HENT: Head: Atraumatic. Nose: Nose normal. Mouth/Throat: Oral mucosa is clear and moist. no trismus. Pharynx normal. Tonsils symmetric. No tonsillar enlargement, erythema, or exudate. Eyes: Conjunctivae normal. EOM normal. Pupils equal, round, and reactive to light. No scleral icterus. Neck: Normal range of motion. Neck supple. No tracheal deviation present. Cardiovascular: Normal rate, regular rhythm. No gallop. No friction rub. No murmur heard. Symmetric radial artery pulses Pulmonary/Chest: Effort normal. No stridor. No respiratory distress. No wheezes. No rales. No rhonchi . No tenderness. Abdominal: Soft. Bowel sounds normal. No distension. No mass. No tenderness. No rebound. No guarding. Mild left CVA tenderness. No rash. No shingles. No bruising. Musculoskeletal: RUE: Normal range of motion. No tenderness. No deformity LUE: Normal range of motion. No tenderness. No deformity RLE: Normal range of motion. No edema. No tenderness. No deformity LLE: Normal range of motion. No edema. No tenderness. No deformity no midline T or L-spine tenderness. Pelvis and hips nontender. Lymph: No cervical adenopathy. Neurological: Alert and oriented to person, place, and time. Normal strength. CN II-VII intact. No sensory deficit. GCS eye subscore is 4. GCS verbal subscore is 5. GCS motor subscore is 6. Normal coordination Skin: Skin is warm and dry. No rash noted. No pallor. Normal capillary refill. Psychiatric: Normal mood. Normal affect. Const: Vital Signs, click to edit/add: Vital Signs - 24 hr 05/12/23 09:59 Temperature 98.0 F Pulse Rate [Right Pulse Oximeter] 92 Respiratory Rate 18 Blood Pressure [Ri ght Upper Arm] 145/75 H Pulse Oximetry 100 Oxygen Delivery Me thod Room Air Course Vital Signs Vital signs: Initial Vital Signs Temperature 98.0 F 05/12/23 09:59 Temperature Source Temporal Artery Scan 05/12/23 09:59 Pulse Rate 92 05/12/23 09:59 Respiratory Rate 18 05/12/23 09:59 Blood Pressure 145/75 H 05/12/23 09:59 Blood Pressure Mean 98 05/12/23 09:59 Blood Pressure Position Sitting 05/12/23 09:59 Pulse Oximetry 100 05/12/23 09:59 Oxygen Delivery Method Room Air 05/12/23 09:59 Vital Signs Temperature 98.0 F 05/12/23 09:59 Pulse Rate 92 05/12/23 09:59 Respiratory Rate 18 05/12/23 09:59 Blood Pressure 145/75 H 05/12/23 09:59 Pulse Oximetry 100 05/12/23 09:59 Oxygen Delivery Method Room Air 05/12/23 09:59 Temperature 98.0 F 05/12/23 09:59 Pulse Rate 92 05/12/23 09:59 Respiratory Rate 18 05/12/23 09:59 Blood Pressure 145/75 H 05/12/23 09:59 Pulse Oximetry 100 05/12/23 09:59 Oxygen Delivery Method Room Air 05/12/23 09:59 Medical Decision Making MDM Narrative Medical decision making narrative: Presented to the Emergency Department with left flank/left lateral abdominal pain. Pain is below her left chest and not in the ribcage suggest PE, pneumonia. Lung sounds are clear. No evidence for pleural effusion on my exam. The differential diagnosis of abdominal pain includes: Kidney stone, pyelonephritis, colitis, diverticulitis,, Bowel Obstruction, Ulcer, Ischemia, Diverticulitis, Pancreatitis, UTI, kidney stone, Enteritis/Colitis, amongst many other etiologies. Less likely would be appendicitis or cholecystitis since she is not having any pain on the right. Laboratory testing does not reveal a cause for the patient's pain. Imaging is noted to be normal. The exact etiology of the abdominal pain is not clear at this time. Could possibly be musculoskeletal. No life threatening cause or need for emergent surgery or hospital admission is detected today. The patient was advised that if symptoms do not completely resolve within another 12-24 hours re-evaluation with primary care or return to the ED is indicated. The patient also understands that if they worsen, they should return to the ER right away. I discussed the uncertainty about the diagnosis and answered the patient's questions. Return precautions discussed. Lab Data Labs: Lab Results 05/12/23 05/12/23 Range/Units 11:12 11:26 WBC 8.99 (4.50-11.00) K/uL RBC 4.13 (4.00-5.20) m/uL Hgb 12.9 (12.0-16.0) gm/dL Hct 40.1 (33.0-51.0) % MCV 97 (80-100) fL MCH 31 (26-34) pg MCHC 32 (32-36) gm/dL RDW Coeff of Kj 12.0 (11.5-15.5) % Plt Count 222 (140-440) K/uL Neut % (Auto) 73.1 H (42.0-72.0) % Lymph % (Auto) 22.6 (20-44) % [place] % (Auto) 3.0 (0.0-11.0) % Eos % (Auto) 0.6 (0.0-7.0) % Baso % (Auto) 0.6 (0.0-3.0) % Neut # (Auto) 6.60 (1.7-7.0) K/uL Lymph # (Auto) 2.03 (0.90-2.90) K/uL [place] # (Auto) 0.30 (0.00-0.90) K/UL Eos # (Auto) 0.05 (0.00-0.50) K/uL Baso # (Auto) 0.05 (0.00-0.30) K/uL Abs Immat Gran (auto) 0.01 (0.00-0.30) K/uL Imm/Tot Granulo (auto) 0.1 % Sodium 138 (135-149) mmol/L Potassium 3.7 (3.6-5.1) mmol/L Chloride 105 (96-114) mmol/L Carbon Dioxide 23 (20-32) mmol/L Anion Gap 10 (7-15) mEq/L BUN 11 (5-24) mg/dL Creatinine 0.8 (0.5-1.5) mg/dL Estimated GFR 96 ml/min Glucose 92 (60-115) mg/dL Lactate 1.0 (0.5-1.9) mmol/L Calcium 9.2 (8.4-10.6) mg/dL Total Bilirubin 0.4 (0.1-1.5) mg/dL AST 35 (12-35) U/L ALT 21 (4-35) U/L Alkaline Phosphatase 60 (40-150) U/L Total Protein 7.6 (6.0-8.3) g/dL Albumin 4.5 (3.3-5.0) g/dL Urine Color Yellow (Yellow) Urine Appearance Clear (Clear) Urine pH 6.0 (5.0-8.5) Ur Specific [place] <= 1.005 (1.000-1.030) Urine Protein Negative (Negative) Urine Glucose (UA) Negative (Negative) Urine Ketones Negative (Negative) Urine Blood Negative (Negative) Urine Nitrite Negative (Negative) Urine Bilirubin Negative (Negative) Urine Urobilinogen 0.2 (0.2-1.0) Ur Leukocyte Esterase Negative (Negative) Urine RBC 0-2 (0-2) Urine WBC 0-2 (0-5) Ur Squamous Epith Cells None (None-Few) Urine Bacteria None (None) Urine HCG, Qual Negative (Negative) Imaging Data CT scan - abdomen: Attestation: I have reviewed the pertinent imaging results. Radiologist's impression: IMPRESSION: Normal CT of the abdomen and pelvis without contrast. Please note that all CT scans at this facility use dose modulation, iterative reconstruction, and/or weight-based dosing when appropriate to reduce radiation dose to as low as reasonably achievable. Discharge Plan Discharge Clinical Impression: Acute left flank pain Patient Disposition: Home, Self-Care Condition: Stable Instructions: Flank Pain (ED) Additional Instructions: Please come back to the ER or see her doctor right away if you have worsening symptoms such as severe pain, high fever, nausea vomiting, blood in your urine or stool, trouble breathing, or if you have any problems. Prescriptions: No Action norgestimate-ethinyl estradiol 0.18/0.215/0.25 mg-35 mcg (28) tablet 1 tab PO DAILY Patient Comments: TAKE 1 TABLET BY MOUTH EVERY DAY Follow Up/Referrals: Provider,Not a Local [Primary Care Provider] - Stand Alone Forms: [employer] Info Instructions
[2023-05-12 11:29] LABS: Appearance Urine Clear (Clear); Bilirubin Urine Negative (Negative); Blood Urine Negative (Negative); Color Urine Yellow (Yellow); Glucose Urine Negative (Negative); Ketones Urine Negative (Negative); Leukocyte Esterase Urine Negative (Negative); Nitrite Urine Negative (Negative); Protein Urine Negative (Negative); Specific Gravity Urine <= 1.005 (1.000-1.030); Urobilinogen Urine 0.2 (0.2-1.0)
[2023-05-12 11:33] LABS: Basophils Absolute Auto 0.05 K/uL (0.00-0.30); Basophils Percent Auto 0.6 % (0.0-3.0); Eosinophils Absolute Auto 0.05 K/uL (0.00-0.50); Eosinophils Percent Auto 0.6 % (0.0-7.0); Hematocrit 40.1 % (33.0-51.0); Hemoglobin* 12.9 gm/dL (12.0-16.0); Immature Granulocytes Abs Auto 0.01 K/uL (0.00-0.30); Immature Granulocytes Pct Auto 0.1 %; Lymphocytes Absolute Auto 2.03 K/uL (0.90-2.90); Lymphocytes Percent Auto 22.6 % (20-44); Mean Corpuscular HGB Conc 32 gm/dL (32-36); Mean Corpuscular Hemoglobin 31 pg (26-34); Mean Corpuscular Volume 97 fL (80-100); Neutrophils Percent Auto 73.1 % (42.0-72.0); Platelet Count* 222 K/uL (140-440); Red Blood Count 4.13 m/uL (4.00-5.20); White Blood Count* 8.99 K/uL (4.50-11.00)
[2023-05-12 11:37] LABS: Slide Review Reflex No
[2023-05-12 11:48] LABS: RBC Urine 0-2 (0-2); Ur HCG Qualitative* Negative (Negative); WBC Urine 0-2 (0-5)
[2023-05-12 11:56] LABS: Albumin* 4.5 g/dL (3.3-5.0)
[2023-05-12 11:57] LABS: Chloride* 105 mmol/L (96-114); Potassium* 3.7 mmol/L (3.6-5.1); Sodium* 138 mmol/L (135-149)
[2023-05-12 11:59] LABS: Anion Gap 10 mEq/L (7-15); Aspartate Amino Transferase* 35 U/L (12-35); Bilirubin Total* 0.4 mg/dL (0.1-1.5); Carbon Dioxide* 23 mmol/L (20-32); Creatinine* 0.8 mg/dL (0.5-1.5); Estimated Glomerular Filt Rate 96 ml/min; Total Protein* 7.6 g/dL (6.0-8.3)
[2023-05-12 12:00] LABS: Alanine Aminotransferase* 21 U/L (4-35); Alkaline Phosphatase* 60 U/L (40-150); Blood Urea Nitrogen* 11 mg/dL (5-24); Calcium* 9.2 mg/dL (8.4-10.6); Glucose* 92 mg/dL (60-115)
--- NOTE | 2023-05-12 13:05 | ED.NURSE ---
no change in condition while in the ED
== END 2023-05-12 13:06 | disposition home or self-care (01) ==
PROVIDERS: Emergency Provider Emergency Medicine
DX: R10.11 Right upper quadrant pain (principal)
CPT/HCPCS: 36415; 74176; 80053; 81001; 81025; 83605; 85025; 99283

== ENCOUNTER 2023-09-27 18:01 | Emergency (ER) | payer OTHER, SELFPAY ==
[2023-09-27 18:19] VITALS: BP 139/80; PULSE 107; RESP 16; TEMP 36.9; O2SAT 100; BMI 21.6
[2023-09-27] MEDS: dexAMETHasone 10 MG/ML inj PO (18:49)
[2023-09-27 19:00] LABS: PCR FLU A Negative PCR FLU A (Negative); PCR FLU B POSITIVE PCR FLU B (Negative); PCR RSV Negative PCR RSV (Negative); SARS PCR* Negative SARS-CoV-2 (Negative)
[2023-09-27 19:39] LABS: Strep A DNA Probe* NOT DETECTED (Not Detectd)
--- NOTE | 2023-09-27 19:54 | ED_ITS ---
HPI - General Adult General Chief complaint: Ear/Nose/Throat Problem Stated complaint: Sinus infection Time Seen by Provider: 09/27/23 18:05 History of Present Illness HPI narrative: This 38-year-old female comes in reporting some nasal congestion and discomfort in her right ear and right cheek. She wonders if she might have a cellulitis or a sinusitis. She states that she did have a fever of 103.9 3 days ago and then felt better again until today. She has not had much of a cough but does report a sore throat. She states that 2 of her children in her family were positive for influenza about a week ago. She was tested at that time and was negative. The urgent care she saw decided to prescribe Tamiflu for her and gave her instructions to take 1 pill a day for 10 days despite her negative results. Related Data Home Medications Medication Instructions Recorded Confirmed norgestimate-ethinyl estradiol 1 tab PO DAILY 06/06/22 09/20/23 0.18 mg/0.215mg/0.25mg-35 mcg(28)tablet Previous Rx's Medication Instructions Recorded oseltamivir 75 mg capsule (Tamiflu) 75 mg PO QDAY 10 days #10 caps 09/20/23 ketorolac 10 mg tablet 10 mg PO Q8H 5 days #15 tabs 09/27/23 Allergies Allergy/AdvReac Type Severity Reaction Status Date / Time No Known Drug Allergies Allergy Verified 09/20/23 09:08 Review of Systems Status of ROS: Reports: 10 or more systems reviewed and unremarkable except as noted in History and below Narrative: Constitutional: No fevers, no weight gain or loss. Eyes: No discharge. No vision changes. HENT: Sore throat. Right facial discomfort. Cardiovascular: No chest pain, no palpitations. Respiratory: No shortness of breath, no wheezes, no cough. Gastrointestinal: No abdominal pain, no vomiting, no diarrhea. Genitourinary: No dysuria, no hematuria. Musculoskeletal: Normal range of motion. Skin: No rashes, no pruritis. Neurological: No dizziness, weakness, sensory change, speech change. Endo/Heme/Allergies: No bruising or bleeding. No polydipsia. Pysch: no suicidality, no anxiety, no insomnia. All other systems reviewed and are negative. PFSH PFSH Social History Smoking Status: Never smoker Do you use any of these nicotine containing products: None Second hand tobacco smoke exposure: No How often do you have a drink containing alcohol: never How often do you have six or more drinks on one occasion: Never AUDIT-C Alcohol total score: 0 Non-prescribed substance use: denies use service: No Exam Const: Vital Signs, click to edit/add: Vital Signs - 24 hr 09/27/23 18:19 Temperature 98.5 F Pulse Rate [Pulse Oximeter] 107 H Respiratory Rate 16 Blood Pressure [Ri ght Upper Arm] 139/80 Pulse Oximetry 100 Oxygen Delivery Me thod Room Air Course Vital Signs Vital signs: Initial Vital Signs Temperature 98.5 F 09/27/23 18:19 Temperature Source Temporal Artery Scan 09/27/23 18:19 Pulse Rate 107 H 09/27/23 18:19 Respiratory Rate 16 09/27/23 18:19 Blood Pressure 139/80 09/27/23 18:19 Blood Pressure Mean 99 09/27/23 18:19 Blood Pressure Position Sitting 09/27/23 18:19 Pulse Oximetry 100 09/27/23 18:19 Oxygen Delivery Method Room Air 09/27/23 18:19 Vital Signs Temperature 98.5 F 09/27/23 18:19 Pulse Rate 107 H 09/27/23 18:19 Respiratory Rate 16 09/27/23 18:19 Blood Pressure 139/80 09/27/23 18:19 Pulse Oximetry 100 09/27/23 18:19 Oxygen Delivery Method Room Air 09/27/23 18:19 Temperature 98.5 F 09/27/23 18:19 Pulse Rate 107 H 09/27/23 18:19 Respiratory Rate 16 09/27/23 18:19 Blood Pressure 139/80 09/27/23 18:19 Pulse Oximetry 100 09/27/23 18:19 Oxygen Delivery Method Room Air 09/27/23 18:19 Medications Administered Medications: Generic Name Dose Route Start Last Admin Trade Name Freq PRN Reason Stop Dose Admin Dexamethasone 10 mg 09/27/23 18:41 09/27/23 18:49 Dexamethasone 10 Mg/Ml Inj PO 09/27/23 18:42 10 mg ONCE ONE Administration Medical Decision Making MDM Narrative Medical decision making narrative: Nasal pharyngeal swab returns positive for influenza B and rapid strep test is negative. The patient received an oral dose of dexamethasone 10 mg and a tablet of Toradol 10 mg. She is already taking Tamiflu and I advised her to take it twice a day as his typically prescribed. She also received a prescription for Toradol. Lab Data Labs: Lab Results 09/27/23 09/27/23 Range/Units 18:15 18:43 SARS-CoV-2 (PCR) Negative SARS-CoV-2 (Negative) Influenza Type A (PCR) Negative PCR FLU A (Negative) Influenza Type B (PCR) POSITIVE PCR FLU B A (Negative) RSV (PCR) Negative PCR RSV (Negative) Group A Strep DNA NOT DETECTED (Not Detectd) Discharge Plan Discharge Clinical Impression: Influenza B Patient Disposition: Home, Self-Care Condition: Stable Additional Instructions: Take medication as needed and indicated. Follow up with MD or return if worsening. Prescriptions: New ketorolac 10 mg tablet 10 mg PO Q8H 5 Days Qty: 15 0RF No Action oseltamivir [Tamiflu] 75 mg capsule 75 mg PO QDAY 10 Days Qty: 10 0RF norgestimate-ethinyl estradiol 0.18/0.215/0.25 mg-35 mcg (28) tablet 1 tab PO DAILY Patient Comments: TAKE 1 TABLET BY MOUTH EVERY DAY Follow Up/Referrals: Provider,Not a Local [Primary Care Provider] - Stand Alone Forms: [employer] Info Instructions
[2023-09-27] MEDS: KETOROLAC 10 MG TABLET PO (19:58)
[2023-09-27 20:09] VITALS: BP 139/80; PULSE 107; RESP 16; TEMP 36.9
== END 2023-09-27 20:10 | disposition home or self-care (01) ==
PROVIDERS: Emergency Provider Emergency Medicine Emergency Medical Services
DX: J10.1 Influenza due to other identified influenza virus with other respiratory manifestations (principal)
CPT/HCPCS: 87631; 87651; 99283; 99284; A9270; J1100

== ENCOUNTER 2024-03-14 16:32 | Outpatient (CLI) | payer OTHER, SELFPAY ==
--- OUTSIDE RECORDS SUMMARY | 2024-03-15 08:43 | XMS_ITS | Referral Summary ---
Author Organization [facility] Address [address] [place] [address]. [place] [address] Care Team Providers Care Bean Snapper Name Role Phone Jacob Carmona MD Unavailable Curtis Núñez MD Unavailable Lisa Wright PA-C Primary Care Provider Lisa Wright PA-C Unavailable [phone] Encounters Date Type Department Care Team Description 03/15/2024 Travel 03/15/2024 7:45 AM CDT Lab [facility] [id number] [place] [phone] Elevated TSH; Other fatigue; Elevated fasting glucose 03/11/2024 MyC Medical Advice [facility] [place] [address] [facility] [address] [place] [phone] Jacob Carmona MD Postcoital bleeding 03/05/2024 Refill [facility] [address] [place] [phone] Chanel Asher PA-C Medication Refill 02/24/2024 Travel 02/24/2024 7:19 AM CDT - 02/24/2024 11:59 PM CDT Hospital Encounter [facility] [address], [address] [place] [phone] Chanel Asher PA-C Mass of upper outer quadrant of left breast Discharge Disposition: Home or Self Care 02/24/2024 7:12 AM CDT - 02/24/2024 7:18 AM CDT Hospital Encounter [facility] [address], [address] [place] [address] Chanel Asher PA-C Mass of upper outer quadrant of left breast Discharge Disposition: Home or Self Care 02/19/2024 MyC Medical Advice [address] [phone] Chanel Asher PA-C 02/16/2024 MyC Medical Advice [address] [phone] Chanel Asher PA-C Elevated fasting glucose (Primary Dx) 02/16/2024 Orders Only [address] [phone] Chanel Asher PA-C Elevated TSH (Primary Dx); Other fatigue 02/16/2024 MyC Medical Advice [address] [phone] Chanel Asher PA-C Breast Mass 02/16/2024 Travel 02/16/2024 8:00 AM CDT Office Visit [facility] [address] [place] [phone] Chanel Asher PA-C Routine general medical examination at a health care facility (Primary Dx); Generalized anxiety disorder; Other fatigue; Muscle spasm; Psychophysiologic insomnia; Mass of upper outer quadrant of left breast 12/23/2023 Travel 12/23/2023 1:30 PM CDT Office Visit [facility] [address] [place] [phone] Jacob Carmona MD Encounter for gynecological examination without abnormal finding (Primary Dx); Pap smear for cervical cancer screening; Screen for STD (sexually transmitted disease); OCP (oral contraceptive pills) initiation from Last 3 Months Allergies No known active allergies Medications Medication Sig Dispensed Refills Start Date End Date Status Multiple Vitamin (MULTIVITAMIN ADULT PO) Active norgestim-eth estrad triphasic (ORTHO TRI-CYCLEN) 0.18/0.215/0.25 MG-35 MCG tabletIndications: OCP (oral contraceptive pills) initiation Take 1 tablet by mouth daily 84 tablet 3 12/23/2023 Active FLUoxetine (PROZAC) 10 MG capsuleIndications :Generalized anxiety disorder Take 1 capsule (10 mg) by mouth daily 90 capsule 1 02/16/2024 Active cyclobenzaprine (FLEXERIL) 5 MG tabletIndications: Muscle spasm TAKE 1 TABLET (5 MG) BY MOUTH NIGHTLY NEEDED FOR MUSCLE SPASMS 15 tablet 03/07/2024 Active escitalopram (LEXAPRO) 10 MG tabletIndications: Generalized anxiety disorder Take 1 tablet (10 mg) by mouth daily 90 tablet 1 01/19/2023 02/16/20 24 Discontinued(Alt ernate therapy) cyclobenzaprine (FLEXERIL) 5 MG tabletIndications: Muscle spasm Take 1 tablet (5 mg) by mouth nightly as needed for muscle spasms 15 tablet 02/16/2024 03/07/20 24 Discontinued Active Problems Problem Noted Date Diagnosed Date Psychophysiologic insomnia 02/16/2024 Atypical chest pain 01/19/2023 01/19/2023 Kidney stone 12/29/2022 History of OCD (obsessive compulsive disorder) 0 01/29/2012 Generalized anxiety disorder 01/29/2012 Overview: Diagnosis updated by automated process. Provider to review and confirm. CARDIOVASCULAR SCREENING; LDL GOAL LESS THAN 160 05/26/2010 H/O LEEP 02/15/2008 Overview: 02/15/08 LSIL 02/24/08 Collp PEDRO I 04/04/08 Cryo 08/01/08 LSIL 11/21/08 [place] PEDRO I 12/14/08 Cryo 04/05/09 LSIL 04/10/09 [place] PEDRO I & II 04/24/09 LEEP PEDRO I & II 08/28/09 LSIL 07/25/10 WNL pap 12/31/10 ASCUS pap with positive HPV. Pt to schedule colposcopy (apt 04/14/11) 05/26/11 [place] PEDRO I & II. Pt to schedule [...] for at least 25 years post LEEP 12/23/23 NIL pap, neg HPV. Plan cotest in 3 years. *After excision or ablation for PEDRO 2+, patient needs a cotest in 6 months, then cotesting annually X 3, then a cotest every 3 years for at least 25 years.* (2019 ASCCP guideline). Resolved Problems Problem Noted Date Diagnosed Date Resolved Date state 09/19/2019 11/13/2020 Vaginal delivery 11/16/2016 11/26/2017 Indication for care in labor or delivery 11/15/2016 11/21/2016 Encounter for triage in patient 10/29/2016 11/16/2016 Indication for care in labor and delivery, antepartum 09/03/2016 11/16/2016 care, first 04/27/2016 11/21/2016 Moderate dysplasia of cervix 04/24/2009 09/24/2015 Mild dysplasia of cervix 03/04/2008 Mild major depression 2020 Immunizations Name Administration Dates Next Due DT (PEDS <7y) 1984,1984,1984 DTAP (<7y) 12/28/1989,10/18/1985 HEPA 10/04/2002 04/06/2003 HEPATITIS A (PEDS 12M-18Y) 10/04/2002 HIB (PRP-T) 06/14/1986 HepB 12/06/1995,04/23/1995,03/19/1995 Hepatitis A (ADULT 19+) 07/08/2013 Hepatitis B, Peds 12/06/1995,04/23/1995,03/19/19 95 Historical DTP/aP 10/18/1985, 5,1984,1983 Historical Hepb 11/26/1995 Influenza Vaccine >6 months, quad, PF 05/20/2019 Influenza Vaccine, 6+MO IM (QUADRIVALENT W/PRESERVATIVES) 06/09/2016 MMR 02/18/1997,07/05/1985 Mantoux Tuberculin Skin Test 03/30/1985 OPV, trivalent, live 12/28/1989,10/18/18 86,1984,1983 TD,PF 7+ (Tenivac) 02/18/1997 TDAP Vaccine (Adacel) 07/29/2019,08/18/2016,12/25 Typhoid IM 07/08/2013 Social History Tobacco Use Types Packs/Day Years Used Date Smoking Tobacco: Never Smokeless Tobacco: Never Tobacco Cessation:Counseling Given: Not Answered Alcohol Use Standard Drinks/Week Comments Not Currently 0 (1 standard drink = 0.6 oz pur e alcohol) very occasional Social Connection and Isolation Panel [NHANES] A nswer Date Recorded Frequency of Communication with Friends and Fami ly Not on file 02/16/2024 How often do you get together with friends or re latives? Once a week 02/16/2024 Attends Yazidi Services Not on file 02/15 Active Member of Clubs or Organizations Not on f ile 02/16/2024 Attends Club or Organization Meetings Not on damion e 02/16/2024 Marital Status Not on file 02/16/2024 AUDIT-C Answer Date Recorded Q1: How often do you have a drink containing alc ohol? Monthly or less 01/19/2023 Q2: How many drinks containi ng alcohol do you have on a typical day when you are drinking? 1 or 2 01/19/2023 Q3: How often do you have si x or more drinks on one occasion? Never 01/19/2023 PHQ-2 Answer Date Recorded PHQ-2 Score 0 02/16/2024 [facility] - Occupational Stress Questionnaire Answer Date Recorded Do you feel stress - tense, restless, nervous, or anxious, or unable to sleep at night because your mind is troubled all the time - these days? Very much 02/16/2024 Exercise Vital Sign Answer Date Recorde d On average, how many days pe r week do you engage in moderate to strenuous exercise (like a brisk walk)? 3 days 02/16/2024 On average, how many minutes do you engage in exercise at this level? 20 min 02/16/2024 [place] Depression Scale Answer Date Recorded [place] Depression Score 2 09/21/2019 Last EPDS Self Harm Result Not on file 09/21 Adolescent Education Answer Date Record ed Getting School Help Needed Not on file 04/20 Food Insecurity Answer Date Recorded Within the past 12 months, d id you worry that your food would run out before you got money to buy more? No 02/16/2024 Within the past 12 months, d id the food you bought just not last and you didn? t have money to get more? No 02/16/2024 Housing Stability Answer Date Recorded Do you have housing? (Josefina g is defined as stable permanent housing and does not include staying ouside in a car, in a tent, in an abandoned building, in an overnight long term, or couch-surfing.) Yes 02/16/2024 Are you worried about losing your housing? No 02/16/2024 Financial Resource Strain Answer Date R ecorded Within the past 12 months, h ave you or your family members you live with been unable to get utilities (heat, electricity) when it was really needed? No 02/16/2024 Transportation Needs Answer Date Record ed Within the past 12 months, h as lack of transportation kept you from medical appointments, getting your medicines, non-medical meetings or appointments, work, or from getting things that you need? No 02/16/2024 Interpersonal Safety Answer Date Record ed Do you feel physically and e motionally safe where you currently live? Yes 02/16/2024 Within the past 12 months, h ave you been hit, slapped, kicked or otherwise physically hurt by someone? No 02/16/2024 Within the past 12 months, h ave you been humiliated or emotionally abused in other ways by your partner or ex-partner? No 02/16/2024 Education Answer Date Recorded What is the highest level of school you have completed or the highest degree you have received? Bachelor's degree (e.g., BA, AB, BS) 02/15/2019 Sex and Gender Information Value Date Recorded Sex Assigned at Female 03/25/2021 2:01 PM CDT Gender Identity Female 03/25/2021 2:01 PM CDT Sexual Orientation Straight 03/25/2021 2: 01 PM CDT Last Filed Vital Signs Vital Sign Reading Time Taken Comments Blood Pressure 113/74 02/16/2024 7:47 AM CDT Pulse 81 02/16/2024 7:47 AM CDT Temperature 36.9 ??C (98.4 ??F) 02/16/2024 7:47 AM CD T Respiratory Rate 15 02/16/2024 7:47 AM CDT Oxygen Saturation 100% 02/16/2024 7:47 AM CDT Inhaled Oxygen Concentration - - Weight 56.8 kg (125 lb 3.2 oz) 02/16/2024 7:47 A M CDT Height 160 cm (5' 3) 02/16/2024 7:47 AM CDT Body Mass Index 22.18 02/16/2024 7:47 AM CDT Plan of Treatment Upcoming Encounters Date Type Department Care Team (Late st Contact Info) Description 03/17/2024 9:00 AM CDT Virtual Visit [address] [phone] Chanel Asher PA-C [id number] [place] [phone] 03/17/2024 9:45 AM CDT Office Visit [facility] [address] [place] [address] Jacob Carmona MD [address] [place], [place] [phone] Procedures Procedure Name Priority Date/Time Associated Diagnosis Comments HEMOGLOBIN A1C Routine 03/15/2024 7:39 AM CDT Elevated fasting glucose US BREAST LEFT LIMITED 1-3 QUADRANTS Routine 02/24/2024 8:13 AM CDT Mass of upper outer quadrant of left breast MA DIAGNOSTIC BILATERAL W/ JOO Routine 02/24/2024 7:56 AM CDT Mass of upper outer quadrant of left breast T4 FREE Routine 02/16/2024 8:31 AM CDT Other fatigue TSH WITH FREE T4 REFLEX Routine 02/16/2024 8:31 AM CDT Other fatigue LIPID REFLEX TO DIRECT LDL PANEL Routine 02/16/2024 8:31 AM CDT Routine general medical examination at a the [facility] care facility COMPREHENSIVE METABOLIC PANEL Routine 02/16/2024 8:31 AM CDT Routine general medical examination at a [facility] CBC WITH PLATELETS Routine 02/16/2024 8: 31 AM CDT Routine general medical examination at a the [facility] care facility HEPATITIS B SURFACE ANTIGEN Routine 12/23/2023 1:57 PM CDT Screen for STD (sexually transmitted disease) HEPATITIS C ANTIBODY Routine 12/23/2023 1:57 PM CDT Screen for STD (sexually transmitted disease) TREPONEMA ABS W REFLEX TO RPR AND TITER Routine 12/23/2023 1:57 PM CDT Screen for STD (sexually transmitted disease) HIV ANTIGEN ANTIBODY COMBO Routine 12/23/2023 1:57 PM CDT Screen for STD (sexually transmitted disease) WET PREPARATION Routine 12/23/2023 1:42 PM CDT Screen for STD (sexually transmitted disease) CHLAMYDIA TRACHOMATIS PCR Routine 12/23/2023 1:42 PM CDT Screen for STD (sexually transmitted disease) NEISSERIA GONORRHOEAE PCR Routine 12/23/2023 1:42 PM CDT Screen for STD (sexually transmitted disease) GYNECOLOGIC CYTOLOGY AND HPV Routine 12/23/2023 1:41 PM CDT Pap smear for cervical cancer screening GYNECOLOGIC CYTOLOGY Routine 12/23/2023 1:41 PM CDT Pap smear for cervical cancer screening COLONOSCOPY - HIM SCAN 12:00 AM CDT from Last 3 Months or Most Recently Relevant to Health Maintenance Results * Hemoglobin A1c (03/15/2024 7:39 AM CDT) Hemoglobin A1C 5.0 0.0 - 5.6 % 03/15/2024 7:51 AM CDT [facility] LAB[facility]ATORY Comment: Normal <5.7% Prediabetes 5.7-6.4% ?? Diabetes 6.5% or higher Note: Adopted from ADA consensus guidelines. Blood BLOOD SPECIMEN / Unknown Venipuncture / Unknown 03/15/2024 7:39 AM CDT 03/15/2024 7:44 AM CDT Chanel Asher PA-C LAB - BLOOD ORDERA BLES CR LAB[facility]ATORY [facility] [address] [place] [address] (no room number, 1st floor of clinic) [place] [address], [facility] * US Breast Left Limited 1-3 Quadrants (02/24/2024 8:13 AM CDT) Anatomical Region Laterality Modality Breast Left Ultrasound Impressions 02/24/2024 8:23 AM CDT IMPRESSION: BI-RADS CATEGORY: 1 - NEGATIVE. RECOMMENDED FOLLOW-UP: Annual Mammography, clinical follow-up. Recommend routine annual screening mammography beginning at age 40 or as discussed with your provider. Clinical follow-up is recommended, with management dependent on the results/findings of the physical examination. The results and recommendation were communicated to the patient at the conclusion of today's appointment. KARLA NEIL MD Narrative 02/24/2024 8:23 AM CDT DIAGNOSTIC MAMMOGRAM, BILATERAL, DIGITAL w/CAD AND TOMOSYNTHESIS - 02/24/2024 7:56 AM ULTRASOUND LEFT BREAST HISTORY: ??Left breast lump. COMPARISON: ??Prior mammograms in 2022. BREAST DENSITY: The breasts are heterogeneously dense which may obscure small masses. FINDINGS: ??No mammographic findings suspicious for malignancy. Targeted ultrasound evaluation of the left breast from 12:00 to 3:00 4 cm from the nipple at the site of palpable lump demonstrates no underlying sonographic abnormalities. Chanel Asher PA-C IMG US ORDERABLES * MA Diagnostic Bilateral w/Joo (02/24/2024 7:56 AM CDT) Anatomical Region Laterality Modality Breast Bilateral Mammography Impressions 02/24/2024 8:23 AM CDT IMPRESSION: BI-RADS CATEGORY: 1 - NEGATIVE. RECOMMENDED FOLLOW-UP: Annual Mammography, clinical follow-up. Recommend routine annual screening mammography beginning at age 40 or as discussed with your provider. Clinical follow-up is recommended, with management dependent on the results/findings of the physical examination. The results and recommendation were communicated to the patient at the conclusion of today's appointment. KARLA NEIL MD Narrative 02/24/2024 8:23 AM CDT DIAGNOSTIC MAMMOGRAM, BILATERAL, DIGITAL w/CAD AND TOMOSYNTHESIS - 02/24/2024 7:56 AM ULTRASOUND LEFT BREAST HISTORY: ??Left breast lump. COMPARISON: ??Prior mammograms in 2022. BREAST DENSITY: The breasts are heterogeneously dense which may obscure small masses. FINDINGS: ??No mammographic findings suspicious for malignancy. Targeted ultrasound evaluation of the left breast from 12:00 to 3:00 4 cm from the nipple at the site of palpable lump demonstrates no underlying sonographic abnormalities. Chanel Asher PA-C IMG MAMMOGRAPHY OR DERABLES * (ABNORMAL) TSH with free T4 reflex (02/16/2024 8:31 AM CDT) TSH 5.81(H) 0.30 - 4.20 uIU/mL 02/16/2024 2:43 PM CDT [facility] Blood BLOOD SPECIMEN / Unknown Venipuncture / Unknown 02/16/2024 8:31 AM CDT 02/16/2024 8:31 AM CDT Chanel Asher PA-C LAB - BLOOD ORDERA BLES [facility] [address], [address] [phone] * T4 free (02/16/2024 8:31 AM CDT) Free T4 1.23 0.90 - 1.70 ng/dL 02/16/2024 3:06 PM CDT [facility] Blood BLOOD SPECIMEN / Unknown Venipuncture / Unknown 02/16/2024 8:31 AM CDT 02/16/2024 8:31 AM CDT Chanel Asher PA-C LAB - BLOOD ORDERA BLES Performing Organization Address City/[facility]/ZIP Co de Phone Number [facility] [address], [address] [phone] * (ABNORMAL) Lipid panel reflex to direct LDL Fasting (02/16/2024 8:31 AM CDT) Cholesterol 213(H) <200 mg/dL 02/16/2024 2:43 PM CDT [facility] Triglycerides 120 <150 mg/dL 02/16/2024 2:43 PM CDT [facility] Direct Measure HDL 80 >=50 mg/dL 02/16/2024 2:43 PM CDT [facility] LDL Cholesterol Calculated 109(H) <=100 mg/dL 02/16/2024 2:43 PM CDT [facility] Non HDL Cholesterol 133(H) <130 mg/dL 02/16/2024 2:43 PM CDT [facility] Patient Fasting > 8hrs? Unknown 02/16/2024 2:43 PM CDT [facility] Blood BLOOD SPECIMEN / Unknown Venipuncture / Unknown 02/16/2024 8:31 AM CDT 02/16/2024 8:31 AM CDT Narrative [facility] - 02/16/2024 2:43 PM CDT Cholesterol Desirable: ??<200 mg/dL Triglycerides Normal: ??Less than 150 mg/dL Borderline High: ??150-199 mg/dL High: ??200-499 mg/dL Very High: ??Greater than or equal to 500 mg/dL Direct Measure HDL Female: ??Greater than or equal to 50 mg/dL Male: ??Greater than or equal to 40 mg/dL LDL Cholesterol Desirable: ??<100mg/dL Above Desirable: ??100-129 mg/dL Borderline High: ??130-159 mg/dL High: ??160-189 mg/dL Very High: ??>= 190 mg/dL Non HDL Cholesterol Desirable: ??130 mg/dL Above Desirable: ??130-159 mg/dL Borderline High: ??160-189 mg/dL High: ??190-219 mg/dL Very High: ??Greater than or equal to 220 mg/dL Chanel Asher PA-C LAB - BLOOD ORDERA BLES [facility] [address], [address] [place], [place] [phone] * Comprehensive metabolic panel (BMP + Alb, Alk Phos, ALT, AST, Total. Bili, TP) (02/16/2024 8:31 AM CDT) Sodium 139 135 - 145 mmol/L 02/16/2024 2:43 PM CDT [facility] Potassium 4.1 3.4 - 5.3 mmol/L 02/16/2024 2:43 PM CDT [facility] Carbon Dioxide (CO2) 25 22 - 29 mmol/L 02/16/2024 2:43 PM CDT [facility] Anion Gap 9 7 - 15 mmol/L 02/16/2024 2:43 PM CDT [facility] Urea Nitrogen 14.4 6.0 - 20.0 mg/dL 02/16/2024 2:43 PM CDT [facility] Creatinine 0.78 0.51 - 0.95 mg/dL 02/16/2024 2:43 PM CDT [facility] GFR Estimate >90 >60 mL/min/1.7 3m2 02/16/2024 2:43 PM CDT [facility] Comment:eGFR calculated us2020 CKD-EPI equation. Calcium 9.1 8.8 - 10.4 mg/dL 02/16/2024 2:43 PM CDT [facility] Comment:Reference intervals for this test were updated on 02/09/2024 to reflect our healthy population more accurately. There may be differences in the flagging of prior results with similar values performed with this method. Those prior results can be interpreted in the context of the updated reference intervals. Chloride 105 98 - 107 mmol/L 02/16/2024 2:43 PM CDT [facility] Glucose 84 70 - 99 mg/dL 02/16/2024 2:43 PM CDT [facility] Alkaline Phosphatase 58 40 - 150 U/L 02/16/2024 2:43 PM CDT [facility] AST 23 0 - 45 U/L 02/16/2024 2:43 PM CDT [facility] ALT 21 0 - 50 U/L 02/16/2024 2:43 PM CDT [facility] Protein Total 6.8 6.4 - 8.3 g/dL 02/16/2024 2:43 PM CDT [facility] Albumin 4.2 3.5 - 5.2 g/dL 02/16/2024 2:43 PM CDT [facility] Bilirubin Total 0.3 <=1.2 mg/dL 02/16/2024 2:43 PM CDT [facility] Patient Fasting > 8hrs? Unknown 02/16/2024 2:43 PM CDT [facility] Blood BLOOD SPECIMEN / Unknown Venipuncture / Unknown 02/16/2024 8:31 AM CDT 02/16/2024 8:31 AM CDT Chanel Asher PA-C LAB - BLOOD ORDERA BLES [facility] [address], [address] [place] [phone] * CBC with platelets (02/16/2024 8:31 AM CDT) WBC Count 7.5 4.0 - 11.0 10e3/uL 02/16/2024 8:33 AM CDT [facility] RBC Count 4.14 3.80 - 5.20 10e6/uL 02/16/2024 8:33 AM CDT [facility] Hemoglobin 12.9 11.7 - 15.7 g/dL 02/16/2024 8:33 AM CDT [facility] Hematocrit 39.0 35.0 - 47.0 % 02/16/2024 8:33 AM CDT [facility] MCV 94 78 - 100 fL 02/16/2024 8:33 AM CDT [facility] MCH 31.2 26.5 - 33.0 pg 02/16/2024 8:33 AM CDT [facility] MCHC 33.1 31.5 - 36.5 g/dL 02/16/2024 8:33 AM CDT [facility] RDW 12.0 10.0 - 15.0 % 02/16/2024 8:33 AM CDT [facility] Platelet Count 211 150 - 450 10e3/uL 02/16/2024 8:33 AM CDT [facility] Blood BLOOD SPECIMEN / Unknown Venipuncture / Unknown 02/16/2024 8:31 AM CDT 02/16/2024 8:31 AM CDT Chanel Asher PA-C LAB - BLOOD ORDERA BLES CR LAB[facility]ATORY [facility] [address] [facility] (no room number, 1st floor of clinic) [place] [address], [facility] [phone] * HIV Antigen Antibody Combo Gamaliel (12/23/2023 1:57 PM CDT) Pathologist [facility] HIV Antigen Antibody Combo Nonreactive Nonreactive 12/24/2023 2:19 PM CDT [facility] Comment:Negative HIV-1 p24 a ntigen and HIV-1/2 antibody screening test results usually indicate the absence of HIV-1 and HIV-2 infection. However, such negative results do not rule-out acute HIV infection. If acute HIV-1 or HIV-2 infection is suspected, detection of HIV-1 or HIV-2 RNA is recommended. Blood BLOOD SPECIMEN / Unknown Venipuncture / Unknown 12/23/2023 1:57 PM CDT 12/23/2023 1:57 PM CDT Jacob Carmona MD LAB - BLOOD OR DERABLES [facility] [address], [address] * Treponema Abs w Reflex to RPR and Titer (12/23/2023 1:57 PM CDT) Treponema Antibody Total Nonreactive Nonreactive 12/23/2023 10:10 PM CDT SPECIALTY CORE/PROT/EN DO Blood BLOOD SPECIMEN / Unknown Venipuncture / Unknown 12/23/2023 1:57 PM CDT 12/23/2023 1:57 PM CDT Jacob Carmona MD LAB - BLOOD OR DERABLES SPECIALTY CORE/PROT/ENDO Specialty Core/Prot/Endo [address] [facility], [address] * Hepatitis C antibody (12/23/2023 1:57 PM CDT) Hepatitis C Antibody Nonreactive Nonreactive 12/24/2023 1:36 PM CDT U LABORATORY Comment:A nonreactive screen ing test result does not exclude the possibility of exposure to or infection with HCV. Nonreactive screening test results in individuals with prior exposure to HCV may be due to antibody levels below the limit of detection of this assay or lack of reactivity to the HCV antigens used in this assay. Patients with recent HCV infections (<3 months from time of exposure) may have false- negative HCV antibody results due to the time needed for seroconversion (average of 8 to 9 weeks). Blood BLOOD SPECIMEN / Unknown Venipuncture / Unknown 12/23/2023 1:57 PM CDT 12/23/2023 1:57 PM CDT Jacob Carmona MD LAB - BLOOD OR DERABLES LABORATORY [facility] [address], [address] [phone] * Hepatitis B surface antigen (12/23/2023 1:57 PM CDT) Hepatitis B Surface Antigen Nonreactive Nonreactive 12/24/2023 1:36 PM CDT U LAB[facility]ATORY Blood BLOOD SPECIMEN / Unknown Venipuncture / Unknown 12/23/2023 1:57 PM CDT 12/23/2023 1:57 PM CDT Jacob Carmona MD LAB - BLOOD OR DERABLES Performing Organization Address City/[facility]/ZIP Co de Phone Number LABORATORY [facility] [address], [address] [phone] * (ABNORMAL) Wet prep - Clinic Collect (12/23/2023 1:42 PM CDT) Pathologist [facility] Trichomonas Absent Absent SHERI 12/23/2023 2:05 PM CDT [facility] Yeast Absent Absent SHERI 12/23/2023 2:05 PM CDT [facility] Clue Cells Absent Absent SHERI 12/23/2023 2:05 PM CDT [facility] WBCs/high power field 3+(A) None SHERI 12/23/2023 2:05 PM CDT [facility] Swab VAGINAL STRUCTURE / Unknown Non-blood Collection / Unknown 12/23/2023 1:42 PM CDT 12/23/2023 2:04 PM CDT Jacob Carmona MD LAB - MICRO GE NERAL ORDERABLES [facility] LAB[facility]AT[facility] [place] [facility] [address], [address] [place] [address], [facility] [phone] * NEISSERIA GONORRHOEA PCR (12/23/2023 1:42 PM CDT) Neisseria gonorrhoeae Negative Negative 12/24/2023 12:20 PM CDT [facility] Comment:Negative for N. gono rrhoeae rRNA by rn pain management mediated amplification. A negative result by rn pain management mediated amplification does not preclude the presence of C. trachomatis infection because results are dependent on proper and adequate collection, absence of inhibitors and sufficient rRNA to be detected. Swab CERVIX UTERI STRUCTURE / Unknown Non-blood Collection / Unknown 12/23/2023 1:42 PM CDT 12/23/2023 1:45 PM CDT Jacob Carmona MD LAB - MICRO [employer] NERAL ORDERABLES [facility] Inf. Diseases Diag. Lab [address] [facility], Room [place] [id number] [place] [address] * CHLAMYDIA TRACHOMATIS PCR (12/23/2023 1:42 PM CDT) Pathologist [facility] Chlamydia trachomatis Negative Negative 12/24/2023 12:20 PM CDT [facility] Comment:A negative result by rn pain management mediated amplification does not preclude the presence of C. trachomatis infection because results are dependent on proper and adequate collection, absence of inhibitors and sufficient rRNA to be detected. Swab CERVIX UTERI STRUCTURE / Unknown Non-blood Collection / Unknown 12/23/2023 1:42 PM CDT 12/23/2023 1:45 PM CDT Jacob Carmona MD LAB - MICRO [employer] NERAL ORDERABLES [facility] Inf. Diseases Diag. Lab [address] [facility], Room [address] [phone] * Gynecologic Cytology (Pap) and HPV ??? Recommended Age 30-65 Years (12/23/2023 1:41 PM CDT) Pathologist [facility] Human Papilloma Virus 16 DNA Negative Negative 12/24/2023 4:02 PM CDT [facility] LAB[facility] Human Papilloma Virus 18 DNA Negative Negative 12/24/2023 4:02 PM CDT [facility] Human Papilloma Virus Other Negative Negative 12/24/2023 4:02 PM CDT [facility] FINAL DIAGNOSIS This patient's sample is negative for high risk HPV DNA. METHODOLOGY: The [employer] system uses automated extraction, simultaneous amplification of HPV (E6/E7 oncogenes) and beta-globin, followed by real time detection of fluorescent labeled HPV and beta globin using specific oligonucleotide probes. The test specifically identifies types HPV 16 DNA and HPV 18 DNA while concurrently detecting the rest of the high risk types (31, 33, 35, 39, 45, 51, 52, 56, 58, 59, 66 or 68). COMMENTS: This test is not intended for use as a screening device for woman under age 30 with normal cervical cytology. Results should be correlated with cytologic and histologic findings. Close clinical follow up is recommended. 12/24/2023 4:02 PM CDT MOLECULAR DIAGNOSTICS Brushing ENDOCERVICAL STRUCTURE / Unknown Non-blood Collection / Unknown 12/23/2023 1:41 PM CDT 12/23/2023 1:45 PM CDT Jacob Carmona MD LAB - BLOOD OR DERABLES [facility] Specialty Lab 500 [facility], [address] [address], [facility] MOLECULAR DIAGNOSTICS Molecular Diagnostics [address] [facility], [address] [phone] * Gynecologic Cytology (PAP) (12/23/2023 1:41 PM CDT) Interpretation Negative for Intraepithelial Lesion or Malignancy (NILM) 12/28/2023 12:43 PM CDT [facility] Comment Papanicolaou Test Limitations: Cervical cytology is a screening test with limited sensitivity, and regular screening is critical for cancer prevention. Pap tests are primarily effective for the diagnosis/prevent ion of squamous cell carcinoma, not adenocarcinoma or other cancers. 12/28/2023 12:43 PM CDT [facility] Specimen Adequacy Satisfactory for evaluation, endocervical/vidal sformation zone component present 12/28/2023 12:43 PM CDT [facility] Clinical Information none 12/28/2023 12:43 PM CDT [facility] Previous Abnormal? No 12/28/2023 12:43 PM CDT SPECIAL[facility] LAB[facility] Performing Labs The technical component of this testing was completed at [facility]. Stain controls for all stains resulted within this report have been reviewed and show appropriate reactivity. 12/28/2023 12:43 PM CDT [facility] Brushing ENDOCERVICAL STRUCTURE / Unknown Non-blood Collection / Unknown 12/23/2023 1:41 PM CDT 12/24/2023 9:32 AM CDT Jacob LIMON - MADINA Kaur [facility] LAB[facility] Specialty Lab 500 [facility], [address] [phone] * COLONOSCOPY - HIM SCAN (03/10/2023 12:00 AM CDT) 03/10/2023 Provider Outside PROCEDURES from Last 3 Months or Most Recently Relevant to Health Maintenance Care Teams Bean Snapper Relationship Specialty Start Date End Date Lisa Wright PA-C [address] [place] [phone] PCP - General Family Medicine 01/19/23 Jacob Carmona MD [address] [place], [place] [address] Assigned OBGYN Provider 05/18/20 Curtis Núñez MD [address] [facility] [address] [place] [address] Assigned Pulmonology Provider 09/13/22 Lisa Wright PA-C [address] [place] [phone] Assigned PCP 01/24/23
--- OUTSIDE RECORDS SUMMARY | 2024-03-15 08:43 | XMS_ITS | Encounter Summary ---
Author Organization [facility] Address [address] [place] [address]. [place] [address] Care Team Providers Care Guest Relations Receptionist Name Role Phone Jacob Carmona MD Unavailable [phone] Curtis Núñez MD Unavailable [phone] Lisa Wright PA-C Primary Care Provider [phone] Lisa Wirght PA-C Unavailable [phone] Encounter Details Date Type Department Care Team (Latest Contact Info) Description 03/15/2024 Travel Social History Tobacco Use Types Packs/Day [...] re latives? Once a week 02/16/2024 Attends Hinduism Services Not on file 02/15 Active Member [...] Answer Date Recorded PHQ-2 Score 0 02/16/2024 [facility] - Occupational Stress Questionnaire Answer Date Recorded [...] exercise at this level? 20 min 02/16/2024 Blanchard Depression Scale Answer Date Recorded Blanchard Depression Score 2 09/21/2019 Last EPDS Self [...] in an abandoned building, in an overnight senior care, or couch-surfing.) Yes 02/16/2024 Are you worried [...] Orientation Straight 03/25/2021 2: 01 PM CDT documented as of this encounter Plan of Treatment Upcoming Encounters Date Type Department Care Team (Late st Contact Info) Description 03/17/2024 9:00 AM CDT Virtual Visit [facility] [address] [place] [phone] Chanel Asher PA-C [address] [place], [place] [phone] 03/17/2024 9:45 AM CDT Office Visit M [address] [place] [phone] Jacob Carmona MD [address] [place] [address] documented as of this encounter Visit Diagnoses Not on filedocumented in this encounter Additional Health Concerns Assessment Noted Time PHQ-9 Depression Total Score: 5 02/16/20 24 6:57 AM CDT documented as of this encounter Care Teams Guest Relations Receptionist Relationship Specialty Start Date End Date Lisa Wright PA-C [id number] [place] [phone] PCP - General Family Medicine 01/19/23 Jacob Carmona MD [address] [place], [place] [address] Assigned OBGYN Provider 05/18/20 Curtis Núñez MD 420 [facility] [address] [place], [place] [address] Assigned Pulmonology Provider 09/13/22 Lisa Wright PAJonnathanC [address] [place] [phone] Assigned PCP 01/24/23 documented as of this encounter
--- OUTSIDE RECORDS SUMMARY | 2024-03-15 08:43 | XMS_ITS | Clinical Summary ---
Author Organization [facility] Address [address] [place] [address]. [place] [address] Care Team Providers Care Costume Shop Manager Name Role Phone Jacob Carmona MD Unavailable Curtis Núñez MD Unavailable Lisa Wright PA-C Primary Care Provider [phone] Lisa Wright PA-C Unavailable [phone] Allergies No known active allergies Medications Medication [...] PEDRO I 04/04/08 Cryo 08/01/08 LSIL 11/21/08 [place] PEDRO I 12/14/08 Cryo 04/05/09 LSIL 04/10/09 [place] PEDRO I & II 04/24/09 LEEP PEDRO I & II 08/28/09 LSIL 07/25/10 WNL pap 12/31/10 ASCUS pap with positive HPV. Pt to schedule colposcopy (apt 04/14/11) 05/26/11 [place] PEDRO I & II. Pt to schedule [...] of cervix 03/04/2008 Mild major depression 2020 Encounters Date Type Department Care Team Description 03/15/2024 7:45 AM CDT Lab [facility] [address] [place] [phone] Elevated TSH; Other fatigue; Elevated fasting glucose 03/15/2024 Travel 03/11/2024 MyC Medical Advice [facility] [address] [place] [address] Jacob Carmona MD Postcoital bleeding 03/05/2024 Refill [facility] [address] [place] [phone] Chanel Asher PA-C Medication Refill 02/24/2024 7:19 AM CDT - 02/24/2024 11:59 PM CDT Hospital Encounter [facility] [address] [facility], [address] [place] [address] Chanel Asher PA-C Mass of upper outer quadrant of left breast Discharge Disposition: Home or Self Care 02/24/2024 7:12 AM CDT - 02/24/2024 7:18 AM CDT Hospital Encounter [facility] [address] [facility], [address] [place] [address] Chanel Asher PA-C Mass of upper outer quadrant of left breast Discharge Disposition: Home or Self Care 02/24/2024 Travel 02/19/2024 MyC Medical Advice [facility] [address] [place] [address] Chanel Asher PA-C 02/16/2024 8:00 AM CDT Office Visit [address] [phone] Chanel Asher PA-C Routine general medical examination at a health care facility (Primary Dx); Generalized anxiety disorder; Other fatigue; Muscle spasm; Psychophysiologic insomnia; Mass of upper outer quadrant of left breast 02/16/2024 MyC Medical Advice [address] [phone] Chanel Asher PA-C Elevated fasting glucose (Primary Dx) 02/16/2024 Orders Only [address] [address] Chanel Asher PA-C Elevated TSH (Primary Dx); Other fatigue 02/16/2024 MyC Medical Advice [address] [address] Chanel Asher PA-C Breast Mass 02/16/2024 Travel 12/23/2023 1:30 PM CDT Office Visit [facility] [address] [place] [address] Jacob Carmona MD Encounter for gynecological examination without abnormal finding (Primary Dx); Pap smear for cervical cancer screening; Screen for STD (sexually transmitted disease); OCP (oral contraceptive pills) initiation 12/23/2023 Travel from Last 3 Months Immunizations Name Administration [...] TDAP Vaccine (Adacel) 07/29/2019,08/18/2016,12/25 Typhoid IM 07/08/2013 Family History Medical History Relation Comments Family History Negative Brother 1 Substance Abuse Brother 2 Lipids Father Diabetes Maternal Grandmother Obesity Maternal Grandmother Alcohol/Drug Mother Anxiety Disorder Mother Arthritis Mother degenerative in knees Lipids Mother Obesity Mother Substance Abuse Mother Breast Cancer Other 1 Paternal aunt Other Cancer Other 2 Lymphoma Genetic Disorder Other 3 Son has Cystic Fibrosis Family History Negative Sister 1 Genetic Disorder Sister 2 Epilepsy Obesity Sister 2 Substance Abuse Sister 2 Cystic Fibrosis Son Relation Status Comments Brother 1 Brother 2 Father Alive Maternal Grandmother Mother Other 1 Other 2 Other 3 Sister 1 Sister 2 Son Alive Social History Tobacco Use Types [...] re latives? Once a week 02/16/2024 Attends Islam Services Not on file 02/15 Active Member [...] Answer Date Recorded PHQ-2 Score 0 02/16/2024 [facility] - Occupational Stress Questionnaire Answer Date [...] exercise at this level? 20 min 02/16/2024 Austerlitz Depression Scale Answer Date Recorded Austerlitz Depression Score 2 09/21/2019 Last EPDS Self [...] an abandoned building, in an overnight senior living, or couch-surfing.) Yes 02/16/2024 Are you worried [...] Description 03/17/2024 9:00 AM CDT Virtual Visit [facility] [address] [place] [phone] Chanel Asher PA-C [address] [place] [address] 03/17/2024 9:45 AM CDT Office Visit [address] [place] [address] Jacob Carmona MD [address] [place] [address] Health Maintenance Due Date Last Done Comments CT COLONOGRAPHY 1984 FIT 1984 FLEX SIG 1984 sDNA (Cologuard) 1984 COVID-19 Vaccine ( season) 2023 INFLUENZA VACCINE (#1) 2024 05/20/2019, 2015 PHQ-9 08/18/2024 02/16/2024, 10/26, 04/08/2022, Additional history exists ANNUAL REVIEW OF HM ORDERS 02/15/202502/15, 01/19/2023, 10/17/2021, Additional history exists YEARLY PREVENTIVE VISIT 02/15/2025 02/16/20, 12/23/2023, 01/19/2023, Additional history exists HPV TEST 12/22/2026 12/23/2023, 09/26, 04/19/2018, Additional history exists PAP 12/22/2026 12/23/2023, 09/26, 04/19/2018, Additional history exists GLUCOSE 02/15/2027 02/16/2024, 12/26, 02/20/2022, Additional history exists ADVANCE CARE PLANNING 02/15/2029 02/16/2024, 021 DTAP/TDAP/TD IMMUNIZATION (9 - Td or Tdap) 07/29/2029 07/29/2019, 08/18/2016, 01/07/2007, Additional history exists COLONOSCOPY 03/10/2030 03/10/2023 COLORECTAL CANCER SCREENING 03/10/2030 IPV IMMUNIZATION Completed 12/28/1989, , 1984, Additional history exists HEPATITIS B IMMUNIZATION Completed 996, 12/06/1995, 11/26/1995, Additional history exists HEPATITIS C SCREENING Completed 12/23/2023 , 03/22/2015, 05/28/2012, Additional history exists HIV SCREENING Completed 12/23/2023, 01/25, 03/04/2016, Additional history exists HPV FOLLOW-UP Completed 12/23/2023, 09/26, 04/19/2018, Additional history exists PAP FOLLOW-UP Completed 12/23/2023, 09/26, 04/19/2018, Additional history exists PHQ-2 (once per calendar year) Completed 02/16/2024, 02/16/2024, 08/28/2023, Additional history exists HPV IMMUNIZATION Aged Out No longer e ligible based on patient's age to complete this topic MENINGITIS IMMUNIZATION Aged Out No l onger eligible based on patient's age to complete this topic Pneumococcal Vaccine: Pediatrics (0 to 5 Years) and At-Risk Patients (6 to 64 Years) Aged Out No longer eligible based on patient's age to complete this topic RSV MONOCLONAL ANTIBODY Aged Out No l onger eligible based on patient's age to complete this topic Procedures Procedure Name Priority Date/Time Associated Diagnosis [...] CDT Routine general medical examination at a health care facility COMPREHENSIVE METABOLIC PANEL Routine 02/16/2024 8:31 AM CDT Routine general medical examination at a health care facility CBC WITH PLATELETS Routine 02/16/2024 8: 31 AM CDT Routine general medical examination at a health care facility HEPATITIS B SURFACE ANTIGEN Routine [...] LAB - BLOOD ORDERA BLES CR LABORATORY [facility] [place] [facility] [address] [facility] (no room number, 1st floor of clinic) [place] [address], [facility] * US Breast Left Limited 1-3 Quadrants [...] Chanel Asher PA-C LAB - BLOOD ORDERA BLETona [facility] Core Lab [address] [facility], Room [address] [place] [address] * T4 free (02/16/2024 8:31 AM CDT) Free T4 1.23 0.90 - 1.70 ng/dL 02/16/2024 3:06 PM CDT [facility] Blood BLOOD SPECIMEN / Unknown Venipuncture / Unknown 02/16/2024 8:31 AM CDT 02/16/2024 8:31 AM CDT Chanel Asher PA-C LAB - BLOOD ORDERA BLES [facility] [address] [facility], [address] [place] [address], [facility] * (ABNORMAL) Lipid panel reflex to direct [...] LAB - BLOOD ORDERA BLES [facility] [address] [facility], Room [address] [place] [address], [facility] * Comprehensive metabolic panel (BMP + Alb, [...] LAB - BLOOD ORDERA BLES [facility] Lab [address] [facility], [address] [place] [address] * CBC with platelets (02/16/2024 8:31 AM [...] LAB - BLOOD ORDERA BLES CR LABORATORY [facility] [place] [facility] [address] [facility] Lab (no room number, 1st floor of clinic) [place] [address], [facility] [phone] * HIV Antigen Antibody Combo [place] (12/23/2023 1:57 PM CDT) HIV Antigen Antibody Combo Nonreactive Nonreactive 12/24/2023 2:19 PM CDT [facility] Comment:Negative HIV-1 p24 a ntigen and [...] Carmona MD LAB - BLOOD OR DERABLES [facility] [address] [facility], [address] [place] [address], [facility] * Treponema Abs w Reflex to RPR and Titer (12/23/2023 1:57 PM CDT) Treponema Antibody Total Nonreactive Nonreactive 12/23/2023 10:10 PM CDT [facility] CORE/PROT/EN DO Blood BLOOD SPECIMEN / Unknown Venipuncture / Unknown 12/23/2023 1:57 PM CDT 12/23/2023 1:57 PM CDT Jacob Carmona MD LAB - BLOOD OR DERABLES [facility] CORE/PROT/ENDO Specialty Core/Prot/Endo [address] [facility], [address] * Hepatitis C antibody (12/23/2023 1:57 [...] - BLOOD OR DERABLES Performing Organization Address City/[facility]/ZIP Co de Phone Number LABORATORY [facility] Core Lab [address] [facility], [address] * Hepatitis B surface antigen (12/23/2023 1:57 PM CDT) Pathologist [facility] Hepatitis B Surface Antigen Nonreactive Nonreactive 12/24/2023 1:36 PM CDT [facility] Blood BLOOD SPECIMEN / Unknown Venipuncture / Unknown 12/23/2023 1:57 PM CDT 12/23/2023 1:57 PM CDT Jacob Carmona MD LAB - BLOOD OR DERABLES U [facility] [address] [facility], [address] [id number] * (ABNORMAL) Wet prep - Clinic Collect (12/23/2023 1:42 PM CDT) Trichomonas Absent Absent SHERI 12/23/2023 2:05 PM [...] - MICRO GE NERAL ORDERABLES RI LABORATORY [facility] [address], [address] [place] [address], [facility] [phone] * NEISSERIA GONORRHOEA PCR (12/23/2023 1:42 PM CDT) Neisseria gonorrhoeae Negative Negative 12/24/2023 12:20 PM CDT [facility] Comment:Negative for N. gono rrhoeae rRNA by manager transportation planning mediated amplification. A negative result by manager transportation planning mediated amplification does not preclude the presence of C. trachomatis infection because results are dependent on proper and adequate collection, absence of inhibitors and sufficient rRNA to be detected. Swab CERVIX UTERI STRUCTURE / Unknown Non-blood Collection / Unknown 12/23/2023 1:42 PM CDT 12/23/2023 1:45 PM CDT Jacob Carmona MD LAB - MICRO GE NERAL ORDERABLES [facility] Inf. Diseases Diag. Lab [address] [facility], [address] [place] [address], [facility] * CHLAMYDIA TRACHOMATIS PCR (12/23/2023 1:42 PM CDT) Chlamydia trachomatis Negative Negative 12/24/2023 12:20 PM CDT [facility] Comment:A negative result by manager transportation planning mediated amplification does not preclude the presence of C. trachomatis infection because results are dependent on proper and adequate collection, absence of inhibitors and sufficient rRNA to be detected. Swab CERVIX UTERI STRUCTURE / Unknown Non-blood Collection / Unknown 12/23/2023 1:42 PM CDT 12/23/2023 1:45 PM CDT Jacob Carmona MD LAB - MICRO GE NERAL ORDERABLES [facility] Inf. Diseases Diag. Lab [address] [facility], [address] [place] [address] * Gynecologic Cytology (Pap) and HPV ??? Recommended Age 30-65 Years (12/23/2023 1:41 PM CDT) Human Papilloma Virus 16 DNA Negative Negative 12/24/2023 4:02 PM CDT SPECIALTY LABS Human Papilloma Virus 18 DNA Negative Negative 12/24/2023 4:02 PM CDT SPECIALTY LAB[facility] Human Papilloma Virus Other Negative Negative 12/24/2023 4:02 PM CDT SPECIAL[facility] LAB[facility] FINAL DIAGNOSIS This patient's sample is negative for high risk HPV DNA. METHODOLOGY: The [employer] system uses automated extraction, simultaneous amplification of [...] OR DERABLES SPECIALTY LAB[facility] Specialty Lab [address] [facility] [address], [address] [address], [facility] [place] MOLECULAR DIAGNOSTICS Molecular Diagnostics [address] [facility] [address] [facility], [address] [address], [facility] * Gynecologic Cytology (PAP) (12/23/2023 1:41 PM [...] Clinical Information none 12/28/2023 12:43 PM CDT SPECIALTY LABS Previous Abnormal? No 12/28/2023 12:43 PM CDT SPECIALTY LABS Performing Labs The technical component of this testing was completed at [facility]. Stain controls for all stains resulted within this report have been reviewed and show appropriate reactivity. 12/28/2023 12:43 PM CDT SPECIALTY LABS Brushing ENDOCERVICAL STRUCTURE / Unknown Non-blood Collection / Unknown 12/23/2023 1:41 PM CDT 12/24/2023 9:32 AM CDT Jacob Carmona MD LAB - BEAKER A P SPECIAL[facility] Specialty Lab [address] [facility] [address] [facility], [address] [address], [facility] * COLONOSCOPY - HIM SCAN (03/10/2023 12:00 AM CDT) 03/10/2023 Provider Outside PROCEDURES from Last 3 Months or Most Recently Relevant to Health Maintenance Care Teams Costume Shop Manager Relationship Specialty Start Date End Date Lisa Wright PA-C [address] [place] [address] PCP - General Family Medicine 01/19/23 Jacob Carmona MD [address] [place], [place] [phone] Assigned OBGYN Provider 05/18/20 Curtis Núñez MD [address] [place] [address] Assigned Pulmonology Provider 09/13/22 Lisa Wright PA-C [address] [place] [address] Assigned PCP 01/24/23
--- OUTSIDE RECORDS SUMMARY | 2024-03-15 08:43 | XMS_ITS | Encounter Summary ---
Author Organization [place] Address [address] [place] [address]. [place] [address] Care Team Providers Care Assistant Foreman Name Role Phone Jacob Carmona MD Unavailable Curtis Núñez MD Unavailable [phone] Lisa Wright PA-C Primary Care Provider [phone] Lisa Wright PA-C Unavailable [phone] Encounter Details Date Type Department Care Team (Late st Contact Info) Description 03/15/2024 7:45 AM CDT Lab [facility] Laboratory [address] [place] [phone] Elevated TSH; Other fatigue; Elevated fasting glucose Social History Tobacco Use Types Packs/Day Years [...] re latives? Once a week 02/16/2024 Attends Mosque Services Not on file 02/15 Active Member [...] Answer Date Recorded PHQ-2 Score 0 02/16/2024 [facility]at ional [facility] - Occupational Stress [...] exercise at this level? 20 min 02/16/2024 Matlock Depression Scale Answer Date Recorded Matlock Depression Score 2 09/21/2019 Last EPDS Self [...] Answer Date Recorded Do you have housing? (Silvanain g is defined as stable permanent housing and does not include staying ouside in a car, in a tent, in an abandoned building, in an overnight fpc, or couch-surfing.) Yes 02/16/2024 Are you worried [...] Description 03/17/2024 9:00 AM CDT Virtual Visit [address] [phone] Chanel Asher PA-C [id number] [place] [address] 03/17/2024 9:45 AM CDT Office Visit [facility] [address] [place] [phone] Jacob Carmona MD [address] [place], [place] [address] Pending Results Name Type Priority Associated Diagnoses Date /Time TSH with free T4 reflex Lab Routine Elevated TSH Other fatigue 03/15/2024 7:39 AM CDT documented as of this encounter Procedures Procedure Name Priority Date/Time Associated Diagnosis Comments HEMOGLOBIN A1C Routine 03/15/2024 7:39 AM CDT Elevated fasting glucose documented in this encounter Results * Hemoglobin A1c (03/15/2024 7:39 AM CDT) Hemoglobin A1C 5.0 0.0 - 5.6 % 03/15/2024 7:51 AM CDT CR LABORATORY Comment: Normal <5.7% Prediabetes 5.7-6.4% ?? Diabetes 6.5% or higher Note: Adopted from ADA consensus guidelines. Blood BLOOD SPECIMEN / Unknown Venipuncture / Unknown 03/15/2024 7:39 AM CDT 03/15/2024 7:44 AM CDT Chanel Asher PA-C LAB - BLOOD ORDERA BLES CR LABORATORY [facility] [place] [facility] [address] [facility] (no room number, 1st floor of clinic) [place] [address] documented in this encounter Visit Diagnoses Diagnosis Elevated TSH Other abnormal blood chemistry Other fatigue Elevated fasting glucose Impaired fasting glucose documented in this encounter Additional Health Concerns Assessment Noted Time PHQ-9 Depression Total Score: 5 02/16/20 24 6:57 AM CDT documented as of this encounter Care Teams Assistant Foreman Relationship Specialty Start Date End Date Lisa Wright PA-C [address] [place] [address] PCP - General Family Medicine 01/19/23 Jacob Carmona MD [address] [place], [place] [address] Assigned OBGYN Provider 05/18/20 Curtis Núñez MD [address] [place] [address] [address] [place], [place] [address] Assigned Pulmonology Provider 09/13/22 Lisa Wright PA-C [address] [place] [address] Assigned PCP 01/24/23 documented as of this encounter
--- OUTSIDE RECORDS SUMMARY | 2024-03-15 08:44 | XMS_ITS | Encounter Summary ---
Author Organization [place] Address [address] [place] [address]. [place] [address] Care Team Providers Care Nib Adjuster Name Role Phone Jacob Carmona MD Unavailable Curtis Núñez MD Unavailable [phone] Lisa Wright PA-C Primary Care Provider [phone] Lisa Wright PA-C Unavailable [phone] Encounter Details Date Type Department Care Team (Late st Contact Info) Description 08/24/2023 MyC Medical Advice [facility] [address] [place] [phone] Jacob Carmona MD [address] [place] [address] Social History Tobacco Use Types Packs/Day Years Used Date Smoking Tobacco: Never Smokeless Tobacco: Never Alcohol Use Standard Drinks/Week Comments Not Currently 0 (1 standard drink = 0.6 oz pur e alcohol) very occasional Social Connection and Isolat ion Panel [NHANES] Answer Date Recorded In a typical week, how many times do you talk on the phone with family, friends, or neighbors? More than three times a week 01/19/2023 How often do you get togethe r with friends or relatives? Once a week 01/19/2023 How often do you attend chur or tenriism services? 1 to 4 times per year 01/19/2023 Do you belong to any clubs o r organizations such as catholic groups, unions, fraternal or athletic groups, or school groups? No 01/19/2023 Attends Club or Organization Meetings Not on damion e 01/19/2023 Are you , , di vorced, , never , or living with a partner? Living with partner 01/19/2023 AUDIT-C Answer Date Recorded Q1: How often [...] PHQ-2 Answer Date Recorded PHQ-2 Score 0 08/28/2023 [facility] - Occupational Stress Questionnaire Answer Date Recorded Do you feel stress - tense, restless, nervous, or anxious, or unable to sleep at night because your mind is troubled all the time - these days? Very much 01/19/2023 Exercise Vital Sign Answer Date Recorde d On average, how many days pe r week do you engage in moderate to strenuous exercise (like a brisk walk)? 1 day 01/19/2023 On average, how many minutes do you engage in exercise at this level? 10 min 01/19/2023 [place] Depression Scale Answer Date Recorded [place] Depression Score 2 09/21/2019 Last EPDS Self Harm Result Not on file 09/21 Adolescent Education Answer Date Record ed Getting School Help Needed Not on file 04/20 Food Insecurity Answer Date Recorded Within the past 12 months, d id you worry that your food would run out before you got money to buy more? No 04/28/2023 Within the past 12 months, d id the food you bought just not last and you didn? t have money to get more? No 04/28/2023 Housing Stability Answer Date Recorded Do you have housing? (Josefina g is defined as stable permanent housing and does not include staying ouside in a car, in a tent, in an abandoned building, in an overnight mcc, or couch-surfing.) Yes 04/28/2023 Are you worried about losing your housing? No 04/28/2023 Financial Resource Strain Answer Date R ecorded Within the past 12 months, h ave you or your family members you live with been unable to get utilities (heat, electricity) when it was really needed? No 04/28/2023 Transportation Needs Answer Date Record ed Within the past 12 months, h as lack of transportation kept you from medical appointments, getting your medicines, non-medical meetings or appointments, work, or from getting things that you need? No 04/28/2023 Interpersonal Safety Answer Date Record ed Do you feel physically and e motionally safe where you currently live? Yes 04/28/2023 Within the past 12 months, h ave you been hit, slapped, kicked or otherwise physically hurt by someone? No 04/28/2023 Within the past 12 months, h ave you been humiliated or emotionally abused in other ways by your partner or ex-partner? No 04/28/2023 Education Answer Date Recorded What is the [...] documented as of this encounter Miscellaneous Notes * Telephone Encounter - Pamella Chapman RN - 08/24/2023 8:26 AM CST Please address the my chart message. Are you able to work this pt in this week for an appt? If so, where? Thanks. Geronimo Chapman RN WRITER REPAIRER documented in this encounter Plan of Treatment Upcoming Encounters Date Type Department Care Team (Late st Contact Info) Description 03/17/2024 9:00 AM CDT Virtual Visit [address] [phone] Chanel Asher PA-C [address] [place], [place] [phone] 03/17/2024 9:45 AM CDT Office Visit [facility] [address] [facility] [address] [place] [phone] Jacob Carmona MD [address] [place] [address] documented as of this encounter Visit Diagnoses Not on filedocumented in this encounter Additional Health Concerns Assessment Noted Time PHQ-9 Depression Total Score: 0 11/20/19 10:04 AM CDT documented as of this encounter Care Teams Nib Adjuster Relationship Specialty Start Date End Date Lisa Wright PA-C [address] [place] [phone] PCP - General Family Medicine 01/19/23 Jacob Carmona MD [address] [place], [place] [address] Assigned OBGYN Provider 05/18/20 Curtis Núñez MD [address] [place] [address] 276 [place] [address] Assigned Pulmonology Provider 09/13/22 Lisa Wright PA-C [address] [place] [phone] Assigned PCP 01/24/23 documented as of this encounter
--- OUTSIDE RECORDS SUMMARY | 2024-03-15 08:44 | XMS_ITS | Encounter Summary ---
Author Organization [place] Address [address] [place] [address]. [place] [address] Care Team Providers Care Fender Mechanic Name Role Phone Jacob Carmona MD Unavailable Curtis Núñez MD Unavailable [phone] Lisa Wright PA-C Primary Care Provider [phone] Lisa Wright PA-C Unavailable [phone] Encounter Details Date Type Department Care Team (Late st Contact Info) Description 02/16/2024 [facility] Only [facility] [address] [place] [phone] Chanel Asher PA-C [address] [place], [place] [phone] Elevated TSH (Primary Dx); Other fatigue Social History Tobacco Use Types Packs/Day Years [...] re latives? Once a week 02/16/2024 Attends Holiness Services Not on file 02/15 Active Member [...] Answer Date Recorded PHQ-2 Score 0 02/16/2024 [facility] of Occupat ional Health - Occupational Stress [...] exercise at this level? 20 min 02/16/2024 Holt Depression Scale Answer Date Recorded Holt Depression Score 2 09/21/2019 Last EPDS Self [...] Description 03/17/2024 9:00 AM CDT Virtual Visit [facility] [address] [place] [phone] Chanel Asher, PALorenza [id number] [place] [address] 03/17/2024 9:45 AM CDT Office Visit [facility] [address] [facility] [address] [place] [address] Jacob Carmona MD [address] [place], [place] [address] Pending Results Name Type Priority Associated Diagnoses Date /Time TSH with free T4 reflex Lab Routine Elevated TSH Other fatigue 03/15/2024 7:39 AM CDT Scheduled Orders Name Type Priority Associated Diagnoses Orde r Schedule TSH with free T4 reflex Lab Routine Elevated TSH Other fatigue Expected: 03/18/2024 (Approximate), Expires: 02/15/2025 documented as of this encounter Visit Diagnoses Diagnosis Elevated TSH- Primary Other abnormal blood chemistry Other fatigue documented in this encounter Additional Health Concerns Assessment Noted Time PHQ-9 Depression Total Score: 5 02/16/20 24 6:57 AM CDT documented as of this encounter Care Teams Fender Mechanic Relationship Specialty Start Date End Date Lisa Wright PA-C [address] [place] [phone] PCP - General Family Medicine 01/19/23 Jacob Carmona MD [address] [place], [place] [address] Assigned OBGYN Provider 05/18/20 Curtis Núñez MD [address] [facility] [address] [place], [place] [phone] Assigned Pulmonology Provider 09/13/22 Lisa Wright PA-C [address] [place] [phone] Assigned PCP 01/24/23 documented as of this encounter
--- OUTSIDE RECORDS SUMMARY | 2024-03-15 08:44 | XMS_ITS | Encounter Summary ---
Author Organization [place] Address [address] [place] [address]. [place] [address] Care Team Providers Care Java Web Application Developer Name Role Phone Jacob Carmona MD Unavailable [phone] Curtis Núñez MD Unavailable [phone] Lisa Wright PA-C Primary Care Provider [phone] Lisa Wright PA-C Unavailable [phone] Encounter Details Date Type Department Care Team (Latest Contact Info) Description 02/24/2024 Travel Social History Tobacco Use Types Packs/Day [...] re latives? Once a week 02/16/2024 Attends Tenriism Services Not on file 02/15 Active Member [...] Answer Date Recorded PHQ-2 Score 0 02/16/2024 [facility] of Occupat ional [facility] - Occupational Stress Questionnaire Answer Date [...] exercise at this level? 20 min 02/16/2024 Acworth Depression Scale Answer Date Recorded Acworth Depression Score 2 09/21/2019 Last EPDS Self [...] in an abandoned building, in an overnight custodial, or couch-surfing.) Yes 02/16/2024 Are you worried [...] Description 03/17/2024 9:00 AM CDT Virtual Visit [facility] [address] [place] [phone] Chanel Asher PA-C [address] [place], [place] [phone] 03/17/2024 9:45 AM CDT Office Visit M [address] [place] [phone] Jacob Carmona MD [address] [place] [address] documented as of this encounter Visit Diagnoses Not on filedocumented in this encounter Additional Health Concerns Assessment Noted Time PHQ-9 Depression Total Score: 5 02/16/20 24 6:57 AM CDT documented as of this encounter Care Teams Java Web Application Developer Relationship Specialty Start Date End Date Lisa Wright PA-C [id number] [place] [phone] PCP - General Family Medicine 01/19/23 Jacob Carmona MD [address] [place], [place] [address] Assigned OBGYN Provider 05/18/20 Curtis Núñez MD [address] [facility] [address] [place], [place] [address] Assigned Pulmonology Provider 09/13/22 Lisa Wright PAJonnathanC [address] [place] [phone] Assigned PCP 01/24/23 documented as of this encounter
--- OUTSIDE RECORDS SUMMARY | 2024-03-15 08:44 | XMS_ITS | Encounter Summary ---
Author Organization [place] Address [address] [place] [address]. [place] [address] Care Team Providers Care Packer Sausage And Wiener Name Role Phone Jacob Carmona MD Unavailable [phone] Curtis Núñez MD Unavailable Lisa Wright PA-C Primary Care Provider Lisa Wright PA-C Unavailable [phone] Encounter Details Date Type Department Care Team (Latest Contact Info) Description 02/16/2024 Travel Social History Tobacco Use Types Packs/Day [...] re latives? Once a week 02/16/2024 Attends Mandaeism Services Not on file 02/15 Active Member [...] Answer Date Recorded PHQ-2 Score 0 02/16/2024 [facility] of Occupat ional [facility] - Occupational Stress Questionnaire Answer [...] exercise at this level? 20 min 02/16/2024 Mohler Depression Scale Answer Date Recorded Mohler Depression Score 2 09/21/2019 Last EPDS Self [...] in an abandoned building, in an overnight care home, or couch-surfing.) Yes 02/16/2024 Are you worried [...] Description 03/17/2024 9:00 AM CDT Virtual Visit [facility] [address] [place] [phone] Chanel Asher PA-C [address] [place], [place] [phone] 03/17/2024 9:45 AM CDT Office Visit M [address] [place] [phone] Jacob Carmona MD [address] [place] [address] documented as of this encounter Visit Diagnoses Not on filedocumented in this encounter Additional Health Concerns Assessment Noted Time PHQ-9 Depression Total Score: 5 02/16/20 24 6:57 AM CDT documented as of this encounter Care Teams Packer Sausage And Wiener Relationship Specialty Start Date End Date Lisa Wright PA-C [id number] [place] [phone] PCP - General Family Medicine 01/19/23 Jacob Carmona MD [address] [place], [place] [address] Assigned OBGYN Provider 05/18/20 Curtis Núñez MD [address] [facility] 276 [place], [place] [address] Assigned Pulmonology Provider 09/13/22 Lisa Wright PAJonnathanC [address] [place] [phone] Assigned PCP 01/24/23 documented as of this encounter
--- OUTSIDE RECORDS SUMMARY | 2024-03-15 08:44 | XMS_ITS | Encounter Summary ---
Author Organization [place] Address [address] [place] [address]. [place] [address] Care Team Providers Care Atmospheric Drier Tender Name Role Phone Jacob Carmona MD Unavailable [phone] Curtis Núñez MD Unavailable Lisa Wright PA-C Primary Care Provider Lisa Wright PA-C Unavailable [phone] Reason for Referral * Diagnostic Imaging Ultrasound (Routine) - Pending Review Specialty Diagnoses / Procedures Referred By Dustin allen Referred To Contact Radiology. Diagnoses Mass of upper outer quadrant of left breast Procedures US Breast Left Limited 1-3 Quadrants Chanel Asher PA-C [address] [place] [address] Referral ID Status Reason Start Date Expiration Date V isits Requested Visits Authorized [id number] Pending Review 02/16/2024 02/15/2025 1 1 Reason for Visit * Reason Onset Date Comments Breast Mass 02/16/2024 Encounter Details Date Type Department Care Team (Late st Contact Info) Description 02/16/2024 MyC Medical Advice [facility] [address] [place] [phone] Chanel Asher PA-C [address] [address] [place], [place] [phone] Breast Mass Social History Tobacco Use Types Packs/Day Years [...] re latives? Once a week 02/16/2024 Attends Confucianism Services Not on file 02/15 Active Member [...] Answer Date Recorded PHQ-2 Score 0 02/16/2024 [facility] of Occupat ional Health - Occupational Stress [...] exercise at this level? 20 min 02/16/2024 Alba Depression Scale Answer Date Recorded Alba Depression Score 2 09/21/2019 Last EPDS Self [...] Date Recorded Do you have housing? (Josefina cummings is defined as stable permanent housing and does not include staying ouside in a car, in a tent, in an abandoned building, in an overnight intermediate, or couch-surfing.) Yes 02/16/2024 Are you worried [...] encounter Miscellaneous Notes * Telephone Encounter - Emani Cervantes RN - 02/16/2024 3:34 PM CDT Chanel- additional BitPayhart message below. Emani Cervantes RN * Telephone Encounter - Emani Cervantes RN - 02/16/2024 2:53 PM CDT Chanel- see Cloakt message below. Please advise. Emani Cervantes RN documented in this encounter Plan of Treatment Upcoming Encounters Date Type Department Care Team (Late st Contact Info) Description 03/17/2024 9:00 AM CDT Virtual Visit [facility] [address] [place] [phone] Chanel Asher PA-C [id number] [place] [address] 03/17/2024 9:45 AM CDT Office Visit [facility] [address] [place] [address] [address] [place] [phone] Jacob Carmona MD [facility] [place], [place] [address] documented as of this encounter Results * US Breast Left Limited 1-3 Quadrants [...] abnormalities. Chanel Asher PA-C IMG US ORDERABLES documented in this encounter Visit Diagnoses Diagnosis Mass of upper outer quadrant of left breast- Primary Mass of upper outer quadrant of left breast documented in this encounter Additional Health Concerns Assessment Noted Time PHQ-9 Depression Total Score: 5 02/16/20 24 6:57 AM CDT documented as of this encounter Care Teams Atmospheric Drier Tender Relationship Specialty Start Date End Date Lisa Wright PA-C [address] [place] [phone] PCP - General Family Medicine 01/19/23 Jacob Carmona MD [address] [place], [place] [address] Assigned OBGYN Provider 05/18/20 Curtis Núñez MD [address] [facility] 276 [place], [place] [address] Assigned Pulmonology Provider 09/13/22 Lisa Wright PA-C [address] [place] [phone] Assigned PCP 01/24/23 documented as of this encounter
--- OUTSIDE RECORDS SUMMARY | 2024-03-15 08:44 | XMS_ITS | Encounter Summary ---
Author Organization [facility] Address [address] [place] [address]. [place] [address] Care Team Providers Care Revenue Specialist Name Role Phone Jacob Carmona MD Unavailable [phone] Curtis Núñez MD Unavailable Lisa Wright PA-C Primary Care Provider [phone] Lisa Wright PA-C Unavailable [phone] Reason for Visit * Reason Comments Physical Encounter Details Date Type Department Care Team (Late st Contact Info) Description 02/16/2024 8:00 AM CDT Office Visit [facility] [address] [place] [address] [phone] Chanel Asher PA-C [address] [place], [place] [phone] Routine general medical examination at a health care facility (Primary Dx); Generalized anxiety disorder; Other fatigue; Muscle spasm; Psychophysiologic insomnia; Mass of upper outer quadrant of left breast Social History Tobacco Use Types Packs/Day Years [...] re latives? Once a week 02/16/2024 Attends S[employer]ism Services Not on file 02/15 Active Member [...] Answer Date Recorded PHQ-2 Score 0 02/16/2024 [facility] Occupational Stress Questionnaire Answer Date Recorded [...] exercise at this level? 20 min 02/16/2024 Bozrah Depression Scale Answer Date Recorded [place] Depression Score 2 09/21/2019 Last EPDS Self [...] Answer Date Recorded Do you have housing? (Housin g is defined as stable permanent housing [...] Mass Index 22.18 02/16/2024 7:47 AM CDT documented in this encounter Patient Instructions * Patient Instructions* Chanel Asher PA-C - 02/16/2024 8:00 AM CDT Images from the original note were not included. Patient Education Preventive Care Advice This is general advice given by our system to help you stay healthy. However, your care team may have specific advice just for you. Please talk to your care team about your preventive care needs. Nutrition Eat 5 or more servings of fruits and vegetables each day. Try wheat bread, brown rice and whole grain pasta (instead of white bread, rice, and pasta). Get enough calcium and vitamin D. Check the label on foods and aim for 100% of the FLEET DIRECTOR (recommendeddaily allowance). Lifestyle Exercise at least 150 minutes each week (30 minutes a day, 5 days a week). Do muscle strengthening activities 2 days a week. These help control your weight and prevent disease. No smoking. Wear sunscreen to prevent skin cancer. Have a dental exam and cleaning every 6 months. Yearly exams See your health care team every year to talk about: Any changes in your health. Any medicines your care team has prescribed. Preventive care, family planning, and ways to prevent chronic diseases. Shots (vaccines) HPV shots (up to age 26), if you've never had them before. Hepatitis B shots (up to age 59), if you've never had them before. COVID-19 shot: Get this shot when it's due. Flu shot: Get a flu shot every year. Tetanus shot: Get a tetanus shot every 10 years. Pneumococcal, hepatitis A, and RSV shots: Ask your care team if you need these based on your risk. Shingles shot (for age 50 and up) General health tests Diabetes screening: Starting at age 35, Get screened for diabetes at least every 3 years. If you are younger than age 35, ask your care team if you should be screened for diabetes. Cholesterol test: At age 39, start having a cholesterol test every 5 years, or more often if advised. Bone density scan (DEXA): At age 50, ask your care team if you should have this scan for osteoporosis (brittle bones). Hepatitis C: Get tested at least once in your life. STIs (sexually transmitted infections) Before age 24: Ask your care team if you should be screened for STIs. After age 24: Get screened for STIs if you're at risk. You are at risk for STIs (including HIV) if: You are sexually active with more than one person. You don't use condoms every time. You or a partner was diagnosed with a sexually transmitted infection. If you are at risk for HIV, ask about PrEP medicine to prevent HIV. Get tested for HIV at least once in your life, whether you are at risk for HIV or not. Cancer screening tests Cervical cancer screening: If you have a cervix, begin getting regular cervical cancer screening tests starting at age 21. Breast cancer scan (mammogram): If you've ever had breasts, begin having regular mammograms starting at age 40. This is a scan to check for breast cancer. Colon cancer screening: It is important to start screening for colon cancer at age 45. Have a colonoscopy test every 10 years (or more often if you're at risk) Or, ask your provider about stool tests like a FIT test every year or Cologuard test every 3 years. To learn more about your testing options, visit: . For help making a decision, visit: https://bit.ly/ab69245. Prostate cancer screening test: If you have a prostate, ask your care team if a prostate cancer screening test (PSA) at age 55 is right for you. Lung cancer screening: If you are a current or former smoker ages 50 to 80, ask your care team if ongoing lung cancer screenings are right for you. For informational purposes only. Not to replace the advice of your health care provider. Copyright ?? 2022 [facility]. All rights reserved. Clinically reviewed by the [facility] Transitions Program. mon.ki [id number] - REV 08/19. Learning About Stress What is stress? Stress is your body's response to a hard situation. Your body can have a physical, emotional, or mental response. Stress is a fact of life for most people, and it affects everyone differently. What causes stress for you may not be stressful for someone else. A lot of things can cause stress. You may feel stress when you go on a job interview, take a test, or run a race. This kind of short-term stress is normal and even useful. It can help you if you needto work hard or react quickly. For example, stress can help you finish an important job on time. Long-term stress is caused by ongoing stressful situations or events. Examples of long-term stress include long-term health problems, ongoing problems at work, or conflicts in your family. Long-term stress can harm your health. How does stress affect your health? When you are stressed, your body responds as though you are in danger. It makes hormones that speedup your heart, make you breathe faster, and give you a burst of energy. This is called the tboub-fo-gtwyjh stress response. If the stress is over quickly, your body goes back to normal and no harm isdone. But if stress happens too often or lasts too long, it can have bad effects. Long-term stress can make you more likely to get sick, and it can make symptoms of some diseases worse. If you tense up when you are stressed, you may develop neck, shoulder, or low back pain. Stress is linked to high bloodpressure and heart disease. Stress also harms your emotional health. It can make you byrnes, tense, or depressed. Your relationships may suffer, and you may not do well at work or school. What can you do to manage stress? You can try these things to help manage stress: Do something active. Exercise or activity can help reduce stress. Walking is a great way to get started. Even everyday activities such as housecleaning or yard work can help. Try yoga or silvio chi. These techniques combine exercise and meditation. You may need some training at first to learn them. Do something you enjoy. For example, listen to music or go to a movie. Practice your hobby or do volunteer work. Meditate. This can help you relax, because you are not worrying about what happened before or what may happen in the future. Do guided imagery. Imagine yourself in any setting that helps you feel calm. You can use online videos, books, or a teacher to guide you. Do breathing exercises. For example: From a standing position, bend forward from the waist with your knees slightly bent. Let your arms dangle close to the floor. Breathe in slowly and deeply as you return to a standing position. Roll up slowly and lift your head last. Hold your breath for just a few seconds in the standing position. Breathe out slowly and bend forward from the waist. Let your feelings out. Talk, laugh, cry, and express anger when you need to. Talking with supportive friends or family, a counselor, or a alejandro leader about your feelings is a healthy way to relieve stress. Avoid discussing your feelings with people who make you feel worse. Write. It may help to write about things that are bothering you. This helps you find out how much stress you feel and what is causing it. When you know this, you can find better ways to cope. What can you do to prevent stress? You might try some of these things to help prevent stress: Manage your time. This helps you find time to do the things you want and need to do. Get enough sleep. Your body recovers from the stresses of the day while you are sleeping. Get support. Your family, friends, and community can make a difference in how you experience stress. Limit your news feed. Avoid or limit time on social media or news that may make you feel stressed. Do something active. Exercise or activity can help reduce stress. Walking is a great way to get started. Where can you learn more? Go to https://www.Radico.net/patiented Enter N032 in the search box to learn more about Learning About Stress. Current as of: May 19, 2023?Content Version: 14.0 ?? [employer]. Care instructions adapted under license by your healthcare professional. If you have questions about a medical condition or this instruction, always ask your healthcare professional. [employer] disclaims any warranty or liability for your use of this information. Learning About Depression Screening What is depression screening? Depression screening is a way to see if you have depression symptoms. It may be done by a doctor orcounselor. It's often part of a routine checkup. That's because your mental health is just as important as your physical health. Depression is a mental health condition that affects how you feel, think, and act. You may: Have less energy. Lose interest in your daily activities. Feel sad and grouchy for a long time. Depression is very common. It affects people of all ages. Many things can lead to depression. Some people become depressed after they have a stroke or find out they have a major illness like cancer or heart disease. The of a loved one or a breakup maylead to depression. It can run in families. Most experts believe that a combination of inherited genes and stressful life events can cause it. What happens during screening? You may be asked to fill out a form about your depression symptoms. You and the doctor will discussyour answers. The doctor may ask you more questions to learn more about how you think, act, and feel. What happens after screening? If you have symptoms of depression, your doctor will talk to you about your options. Doctors usually treat depression with medicines or counseling. Often, combining the two works best.Many people don't get help because they think that they'll get over the depression on their own. But people with depression may not get better unless they get treatment. The cause of depression is not well understood. There may be many factors involved. But if you havedepression, it's not your fault. A serious symptom of depression is thinking about or suicide. If you or someone you care about talks about this or about feeling hopeless, get help right away. It's important to know that depression can be treated. Medicine, counseling, and self-care may help. Where can you learn more? Go to https://www.Radico.net/patiented Enter T185 in the search box to learn more about Learning About Depression Screening. Current as of: January 17, 2023?Content Version: 14.0 ?? [employer]. Care instructions adapted under license by your healthcare professional. If you have questions about a medical condition or this instruction, always ask your healthcare professional. [employer] disclaims any warranty or liability for your use of this information. documented in this encounter Progress Notes * Chanel Asher PA-C - 02/16/2024 8:00 AM CDT Images from the original note were not included. Preventive Care Visit [facility] Chanel Valverde. DEMARCUS Asher, Family Medicine Feb 16, 2024 Assessment & Plan (Z00.00) Routine general medical examination at a health care facility (primary encounter diagnosis) Comment: Plan: CBC with platelets, Comprehensive metabolic panel (BMP + Alb, Alk Phos, ALT, AST, Total. Bili, TP), Lipid panel reflex to direct LDL Fasting (F41.1) Generalized anxiety disorder Comment: Risks/benefits of medication use discussed with patient. Patient reports understanding andaccepts trial of medication. Follow-up 4-6 weeks. Plan: FLUoxetine (PROZAC) 10 MG capsule, OFFICE/OUTPT VISIT,EST,LEVL IV (R53.83) Other fatigue Comment: likely secondary to insomnia and anxiety.await labs. Plan: TSH with free T4 reflex, OFFICE/OUTPT VISIT,EST,LEVL IV (M62.838) Muscle spasm Comment: recommend massage and chiropractic Plan: cyclobenzaprine (FLEXERIL) 5 MG tablet, OFFICE/OUTPT VISIT,EST,LEVL IV (F51.04) Psychophysiologic insomnia Comment: discussed meds. Will follow-up at next visit. My consider trazodone or hydroxyzine if sleep is still poor Plan: OFFICE/OUTPT VISIT,EST,LEVL IV (N63.21) Mass of upper outer quadrant of left breast Comment: recommend monitoring given where she is in her cycle. If nodule persists, message and willorder imaging. The patient indicates understanding of these issues and agrees with the plan. Plan: OFFICE/OUTPT VISIT,EST,LEVL IV Patient has been advised of split billing requirements and indicates understanding: No Counseling Appropriate preventive services were addressed with this patient via screening, questionnaire, or discussion as appropriate for fall prevention, nutrition, physical activity, Tobacco-use cessation, weight loss and cognition. Checklist reviewing preventive services available has been given to the patient. Reviewed patient's diet, addressing concerns and/or questions. She is at risk for lack of exercise and has been provided with information to increase physical activity for the benefit of her well-being. The patient's PHQ-9 score is consistent with mild depression. She was provided with information regarding depression. See Patient Instructions Chi English is a 38 year old, presenting for the following: Physical 02/16/2024 7:41 AM Additional Questions Roomed by [facility] Care Directive Patient does not have a Health Care Directive or Living Will: Discussed advance care planning with patient; however, patient declined at this time. HPI Abnormal Mood Symptoms Onset/Duration: many years Description: anxiety/worry Depression (if yes, do PHQ-9): No Anxiety (if yes, do MALIHA-7): YES Accompanying Signs & Symptoms: Still participating in activities that you used to enjoy: YES Fatigue: YES Irritability: No Difficulty concentrating: YES Changes in appetite: No Problems with sleep: YES Heart racing/beating fast: No Abnormally elevated, expansive, or irritable mood: No Persistently increased activity or energy: No Thoughts of hurting yourself or others: No History: Recent stress or major life event: No Prior depression or anxiety: anxiety Family history of depression or anxiety: No Alcohol/drug use: No Difficulty sleeping: YES Precipitating or alleviating factors: lexapro (didn't help), celexa (worked better) Therapies tried and outcome: medication(s) Celexa (citalopram) and Lexapro (escitalopram) 04/08/2022 2:57 PM 11/19/2022 10:03 AM 02/16/2024 6:57 AM PHQ PHQ-9 Total Score 1 0 5 Q9: Thoughts of better off /self-harm past 2 weeks Not at all Not at all Not at all 10/17/2021 10:04 AM 04/08/2022 2:59 PM 02/16/2024 6:57 AM MALIHA-7 SCORE Total Score 4 (minimal anxiety) 6 (mild anxiety) Total Score 4 4 6 Neck feels tight. Has been this way for a long time. Wondering if she should see chiropractor Patient also noticed lump in left breast last night. Supposed to get menstrual cycle next week. 02/16/2024 General Health How would you rate your overall physical health? Good Feel stress (tense, anxious, or unable to sleep) Very much (!) STRESS CONCERN 02/16/2024 Nutrition Three or more servings of calcium each day? (!) I DON'T KNOW Diet: Regular (no restrictions) How many servings of fruit and vegetables per day? (!) 2-3 How many sweetened beverages each day? 0-1 02/16/2024 Exercise Days per week of moderate/strenous exercise 3 days Average minutes spent exercising at this level 20 min 02/16/2024 Social Factors Frequency of gathering with friends or relatives Once a week Worry food won't last until get money to buy more No Food not last or not have enough money for food? No Do you have housing? (Housing is defined as stable permanent housing and does not include staying ouside in a car, in a tent, in an abandoned building, in an overnight senior care, or couch-surfing.) Yes Are you worried about losing your housing? No Lack of transportation? No Unable to get utilities (heat,electricity)? No 02/16/2024 Dental Dentist two times every year? Yes 02/16/2024 TB Screening Were you born outside of the [place]? No Today's PHQ-9 Score: 02/16/2024 6:57 AM PHQ-9 SCORE PHQ-9 Total Score MyChart 5 (Mild depression) PHQ-9 Total Score 5 02/16/2024 Substance Use Alcohol more than 3/day or more than 7/wk No Do you use any other substances recreationally? No Social History Tobacco Use Smoking status: Never Smokeless tobacco: Never Vaping Use Vaping status: Never Used Substance Use Topics Alcohol use: Not Currently Comment: very occasional Drug use: No 11/26/2022 LAST FHS-7 RESULTS 1st degree relative breast or ovarian cancer No Any relative bilateral breast cancer No Any male have breast cancer No Any ONE woman have BOTH breast AND ovarian cancer No Any woman with breast cancer before 50yrs Yes 2 or more relatives with breast AND/OR ovarian cancer No 2 or more relatives with breast AND/OR bowel cancer No Mammogram Screening - Patient under 40 years of age: Routine Mammogram Screening not recommended. 02/16/2024 STI Screening New sexual partner(s) since last STI/HIV test? No History of abnormal Pap smear: No - age 30- 64 PAP with HPV every 5 years recommended Latest Ref Rng & Units 12/23/2023 1:41 PM 10/23/2020 3:58 PM 10/23/2020 3:57 PM PAP / HPV PAP Negative for Intraepithelial Lesion or Malignancy (NILM) PAP (Historical) NIL HPV 16 DNA Negative Negative Negative HPV 18 DNA Negative Negative Negative Other HR HPV Negative Negative Negative 02/16/2024 Contraception/Family Planning Questions about contraception or family planning No Reviewed and updated as needed this visit by Provider Past Medical History: Diagnosis Date Allergic rhinitis, seasonal Breast disorder benign tumor removed in 1997 Cystic fibrosis carrier Generalised anxiety disorder 01/29/2012 History of colposcopy with cervical biopsy 02/24/08 PEDRO I, 11/21/08 PEDRO I, 04/10/09 PEDRO I &II, History of OCD (obsessive compulsive disorder) 01/29/2012 Mild major depression (H24) Papanicolaou smear of cervix with low grade squamous intraepithelial lesion (LGSIL) 02/15/08, 08/01/08, 04/05/09, 08/28/09 Pneumonia 2021 Wounds and injuries fall in 09/03/16 Review of Systems Constitutional, neuro, ENT, endocrine, pulmonary, cardiac, gastrointestinal, genitourinary, musculoskeletal, integument and psychiatric systems are negative, except as otherwise noted. Objective Exam BP 113/74 (BP Location: Right arm, Patient Position: Sitting, Cuff Size: Adult Regular) Pulse 81 Temp 98.4 ??F (36.9 ??C) (Oral) Resp 15 Ht 1.6 m (5' 3) Wt 56.8 kg (125 lb 3.2 oz) LMP 01/28/2024 (Approximate) SpO2 100% BMI 22.18 kg/m?? Estimated body mass index is 22.18 kg/m?? as calculated from the following: Height as of this encounter: 1.6 m (5' 3). Weight as of this encounter: 56.8 kg (125 lb 3.2 oz). Physical Exam GENERAL: alert and no distress EYES: Eyes grossly normal to inspection, PERRL and conjunctivae and sclerae normal HENT: ear canals and TM's normal, nose and mouth without ulcers or lesions NECK: no adenopathy, no asymmetry, masses, or scars RESP: lungs clear to auscultation - no rales, rhonchi or wheezes BREAST: 3-4 mm tender nodule left upper outer quandrant CV: regular rate and rhythm, normal S1 S2, no S3 or S4, no murmur, click or rub, no peripheral edema ABDOMEN: soft, nontender, no hepatosplenomegaly, no masses and bowel sounds normal MS: tight and tender L>R cervical paraspinal muscles. SKIN: no suspicious lesions or rashes NEURO: Normal strength and tone, mentation intact and speech normal PSYCH: mentation appears normal, affect normal/bright Signed Electronically by: Chanel Asher PA-C Answers submitted by the patient for this visit: Patient Health Questionnaire (Submitted on 02/16/2024) If you checked off any problems, how difficult have these problems made it for you to do your work,take care of things at home, or get along with other people?: Not difficult at all PHQ9 TOTAL SCORE: 5 MALIHA-7 (Submitted on 02/16/2024) MALIHA 7 TOTAL SCORE: 6 documented in this encounter Plan of Treatment Upcoming Encounters Date Type Department Care Team (Late st Contact Info) Description 03/17/2024 9:00 AM CDT Virtual Visit [facility] [address] [place] [address] [phone] Chanel Asher PA-C [id number] [place] [phone] 03/17/2024 9:45 AM CDT Office Visit [address] [place] [phone] Jacob Carmona MD [address] [place], [place] [phone] documented as of this encounter Procedures Procedure Name Priority Date/Time Associated Diagnosis Comments TSH WITH FREE T4 REFLEX Routine 02/16/2024 8:31 AM CDT Other fatigue T4 FREE Routine 02/16/2024 8:31 AM CDT [...] health care facility documented in this encounter Results * T4 free (02/16/2024 8:31 AM CDT) Free T4 1.23 0.90 - 1.70 ng/dL 02/16/2024 3:06 PM CDT [facility] Blood BLOOD SPECIMEN / Unknown Venipuncture / Unknown 02/16/2024 8:31 AM CDT 02/16/2024 8:31 AM CDT Chanel Asher PA-C LAB - BLOOD ORDERA BLES [facility] [address] [facility], [address] * (ABNORMAL) TSH with free T4 reflex (02/16/2024 8:31 AM CDT) Pathologist [facility] TSH 5.81(H) 0.30 - 4.20 uIU/mL 02/16/2024 2:43 PM CDT [facility] Blood BLOOD SPECIMEN / Unknown Venipuncture / Unknown 02/16/2024 8:31 AM CDT 02/16/2024 8:31 AM CDT Chanel Asher PA-C LAB - BLOOD ORDERA BLES [facility] [address] [facility], [address] * (ABNORMAL) Lipid panel reflex to direct [...] LAB - BLOOD ORDERA BLES [facility] [address] [facility], Room [address] [place] [phone], [facility] * Comprehensive metabolic panel (BMP [...] LAB - BLOOD ORDERA BLES [facility] [address] [facility], [address] [place] [phone], [facility] * CBC with platelets (02/16/2024 8:31 AM [...] LAB - BLOOD ORDERA BLES CR LABORATORY [facility] [place] [facility] [address] [place] [address] (no room number, 1st floor of clinic) [place] [address], [facility] [phone] documented in this encounter Visit Diagnoses Diagnosis Routine general medical examination at a health care facility- Primary Generalized anxiety disorder Other fatigue Muscle spasm Spasm of muscle Psychophysiologic insomnia Persistent disorder of initiating or maintaining sleep Mass of upper outer quadrant of left breast documented in this encounter Additional Health Concerns Assessment Noted Time PHQ-9 Depression Total Score: 5 02/16/20 24 6:57 AM CDT documented as of this encounter Care Teams Revenue Specialist Relationship Specialty Start Date End Date Lisa Wright PA-C [address] [place] [phone] PCP - General Family Medicine 01/19/23 Jacob Carmona MD [address] [place] [phone] Assigned OBGYN Provider 05/18/20 Curtis Núñez MD [address] [place] [address] [address] [place] [address] Assigned Pulmonology Provider 09/13/22 Lisa Wright PA-C [address] [place] [address] Assigned PCP 01/24/23 documented as of this encounter
--- OUTSIDE RECORDS SUMMARY | 2024-03-15 08:44 | XMS_ITS | Encounter Summary ---
Author Organization [place] Address [address] [place] [address]. [place] [address] Care Team Providers Care Textiles Sales Representative Name Role Phone Jacob Carmona MD Unavailable [phone] Curtis Núñez MD Unavailable [phone] Lisa Wright PA-C Primary Care Provider [phone] Lisa Wright PA-C Unavailable [phone] Encounter Details Date Type Department Care Team (Late st Contact Info) Description 02/19/2024 [facility] Medical Advice [facility] [id number] [place] [phone] Chanel Asher PA-C [id number] [place] [address] [phone] Social History Tobacco Use Types Packs/Day Years [...] re latives? Once a week 02/16/2024 Attends [employer] Services Not on file 02/15 Active Member [...] Answer Date Recorded PHQ-2 Score 0 02/16/2024 [facility] [place] of Occupat ional Health - Occupational Stress [...] exercise at this level? 20 min 02/16/2024 [place] Depression Scale Answer Date Recorded [place] Depression Score 2 09/21/2019 Last EPDS Self [...] in an abandoned building, in an overnight jail, or couch-surfing.) Yes 02/16/2024 Are you worried [...] encounter Miscellaneous Notes * Telephone Encounter - Joya Montelongo RN - 02/19/2024 7:50 AM CDT Lisa Wright PA-C- See pt's [employer] message. Please review and advise. Routed to PCP Joya Odom RN [facility] documented in this encounter Plan of Treatment Upcoming Encounters Date Type Department Care Team (Late st Contact Info) Description 03/17/2024 9:00 AM CDT Virtual Visit [address] [phone] Chanel Asher PA-C [id number] [place] [phone] 03/17/2024 9:45 AM CDT Office Visit [facility] [address] [facility] [address] [place] [phone] Jacob Carmona MD [address] [place] [address] documented as of this encounter Visit Diagnoses Not on filedocumented in this encounter Additional Health Concerns Assessment Noted Time PHQ-9 Depression Total Score: 5 02/16/20 24 6:57 AM CDT documented as of this encounter Care Teams Textiles Sales Representative Relationship Specialty Start Date End Date Lisa Wright PA-C [address] [place] [phone] PCP - General Family Medicine 01/19/23 Jacob Carmona MD [address] [place], [place] [phone] Assigned OBGYN Provider 05/18/20 Curtis Núñez MD [address] [facility] 276 [place] [place], [place] [address] Assigned Pulmonology Provider 09/13/22 Lisa Wright PA-C [address] [place] [phone] Assigned PCP 01/24/23 documented as of this encounter
--- OUTSIDE RECORDS SUMMARY | 2024-03-15 08:44 | XMS_ITS | Encounter Summary ---
Author Organization [facility] Address [address] [place] [address]. [place] [address] Care Team Providers Care Rv Mechanic Name Role Phone Jacob Cramona MD Unavailable [phone] Curtis Núñez MD Unavailable [phone] Lisa Wright PA-C Primary Care Provider Lisa Wright PA-C Unavailable [phone] Reason for Visit * Diagnostic Imaging Mammo (Routine) - Pending Review Specialty Diagnoses / Procedures Referred By Dustin t Referred To Contact Radiology. Diagnoses Mass of upper outer quadrant of left breast Procedures MA Diagnostic Bilateral w/Joo MA Diagnostic Digital Bilateral Chanel Asher PA-C [address] [place] [address] Referral ID Status Reason Start Date Expiration Date V isits Requested Visits Authorized [id number] Pending Review 02/16/2024 02/15/2025 1 1 Encounter Details Date Type Department Care Team (Latest Contact Info) Description 02/24/2024 7:12 AM CDT - 02/24/2024 7:18 AM CDT Hospital Encounter [facility] [address] [facility], [address] [place] [address] Chanel Asher, PAJonnathanC [address] [place] [address] Mass of upper outer quadrant of left breast Discharge Disposition: Home or Self Care Social History Tobacco Use Types Packs/Day Years [...] re latives? Once a week 02/16/2024 Attends Scientologist Services Not on file 02/15 Active Member [...] Answer Date Recorded PHQ-2 Score 0 02/16/2024 [facility] of Occupat ional Health - Occupational Stress [...] exercise at this level? 20 min 02/16/2024 [place] Depression Scale Answer Date Recorded [place] Depression Score 2 09/21/2019 Last EPDS Self [...] Sig Dispensed Refills Start Date End Date FLUoxetine (PROZAC) 10 MG capsuleIndications:Gener alized anxiety disorder Take 1 capsule (10 mg) by mouth daily 90 capsule 1 02/16/2024 Multiple Vitamin (MULTIVITAMIN ADULT PO) norgestim-eth estrad triphasic (ORTHO TRI-CYCLEN) 0.18/0.215/0.25 MG-35 MCG tabletIndications:OCP (oral contraceptive pills) initiation Take 1 tablet by mouth daily 84 tablet 3 12/23/2023 cyclobenzaprine (FLEXERIL) 5 MG tabletIndications:Muscle spasm Take 1 tablet (5 mg) by mouth nightly as needed for muscle spasms 15 tablet 02/16/2024 03/07/2024 documented as of this encounter Plan of Treatment Upcoming Encounters Date Type Department Care Team (Late st Contact Info) Description 03/17/2024 9:00 AM CDT Virtual Visit [facility] [id number] [place] [phone] Chanel Asher PA-C [id number] [place] [address] [phone] 03/17/2024 9:45 AM CDT Office Visit [facility] [address] [facility] [address] [place] [phone] Jacob Carmona MD [address] [place], [place] [address] documented as of this encounter Procedures Procedure Name Priority Date/Time Associated Diagnosis Comments MA DIAGNOSTIC BILATERAL W/ JOO Routine 02/24/2024 7:56 AM CDT Mass of upper outer quadrant of left breast documented in this encounter Results * MA Diagnostic Bilateral w/Joo (02/24/2024 7:56 [...] no underlying sonographic abnormalities. Chanel Asher PA-C [facility] MAMMOGRAPHY OR DERABLES documented in this encounter Visit Diagnoses Diagnosis Mass of upper outer quadrant of left breast documented in this encounter Additional Health Concerns Assessment Noted Time PHQ-9 Depression Total Score: 5 02/16/20 24 6:57 AM CDT documented as of this encounter Care Teams Rv Mechanic Relationship Specialty Start Date End Date Lisa Wright PA-C [address] [place] [phone] PCP - General Family Medicine 01/19/23 Jacob Carmona MD [address] [place] [id number] Assigned OBGYN Provider 05/18/20 Curtis Núñez MD [address] [place] [id number] Assigned Pulmonology Provider 09/13/22 Lisa Wright PA-C [address] [place] [address] Assigned PCP 01/24/23 documented as of this encounter
--- OUTSIDE RECORDS SUMMARY | 2024-03-15 08:44 | XMS_ITS | Encounter Summary ---
Author Organization [facility] Address [address] [place] [address]. [place] [address] Care Team Providers Care Counter Waitress/Waiter Name Role Phone Jacob Carmona MD Unavailable Curtis Núñez MD Unavailable Lisa Wright PA-C Primary Care Provider [phone] Lisa Wright PA-C Unavailable [phone] Reason for Visit * Reason Comments Equipment Operating Engineer Exam Breast exam, pap and STI testing Encounter Details Date Type Department Care Team (Late st Contact Info) Description 12/23/2023 1:30 PM CDT Office Visit [facility] [place] [address] [place] [phone] Jacob Carmona MD [address] [place] [address] Encounter for gynecological examination without abnormal finding (Primary Dx); Pap smear for cervical cancer screening; Screen for STD (sexually transmitted disease); OCP (oral contraceptive pills) initiation Social History Tobacco Use Types Packs/Day Years [...] week 01/19/2023 How often do you attend [facility] or temple services? 1 to 4 times per year 01/19/2023 Do you belong to any clubs o r organizations such as zoroastrian groups, unions, fraternal [...] Answer Date Recorded PHQ-2 Score 0 08/28/2023 [facility] of Occupat ional Health - Occupational Stress [...] exercise at this level? 10 min 01/19/2023 [place] Depression Scale Answer Date Recorded [place] Depression Score 2 09/21/2019 Last EPDS Self [...] in an abandoned building, in an overnight snf, or couch-surfing.) Yes 04/28/2023 Are you worried [...] Sign Reading Time Taken Comments Blood Pressure 120/70 12/23/2023 1:24 PM CDT Pulse - - Temperature - - Respiratory Rate - - Oxygen Saturation - - Inhaled Oxygen Concentration - - Weight 56.2 kg (124 lb) 12/23/2023 1:24 PM CDT Height - - Body Mass Index 21.97 04/28/2023 10:56 AM CDT documented in this encounter Progress Notes * Jacob Carmona MD - 12/23/2023 1:30 PM CDT SUBJECTIVE: Tameka is a 38 year old female who presents for annual exam. No LMP recorded.. Menses are regular q 28-30 days and normal lasting 3-4 days. Using oral contraceptives for contraception. She is not currently considering . Besides routine health maintenance, she has no other health concerns today . GYNECOLOGIC HISTORY: Tameka is sexually active with 1 male partner and is currently in a monogamous relationship. History sexually transmitted infections:No STD history. Requests STI testing as a precaution History of abnormal Pap smear: No - age 29- 63 PAP with HPV every 5 years recommended Family history of breast CA: No Family history of uterine/ovarian CA: No Family history of colon CA: No HISTORY: OB History Para Term AB Living 3 2 2 0 1 2 SAB IAB Ectopic Multiple Live Births 1 0 0 0 2 # Outcome Date GA Lbr Chema/2nd Weight Sex Type Anes PTL Lv 3 Term 09/19/19 40w3d [...] 10/2015 6w0d Past Medical History: Diagnosis Date Allergic rhinitis, [...] 2021 Wounds and injuries fall in 09/03/16 Past Surgical History: Procedure Laterality Date BREAST SURGERY 20 years ago? Cyst removal COLPOSCOPY CERVIX, LOOP ELECTRODE BIOPSY, COMBINED 04/24/09 PEDRO I & II CRYOTHERAPY 04/04/08, 12/14/08 HYSTEROSCOPY 07/08/2022 [facility] NONSPECIFIC PROCEDURE rt brest biopsy,benign Family History Problem Relation Age of Onset Arthritis Mother degenerative in knees Lipids Mother Alcohol/Drug Mother Substance Abuse Mother Obesity Mother Anxiety Disorder Mother Lipids Father Family History Negative Sister Family History Negative Brother Diabetes Maternal Grandmother Obesity Maternal Grandmother Cystic Fibrosis Son Breast Cancer Other Paternal aunt Other Cancer Other Lymphoma Genetic Disorder Other Son has Cystic Fibrosis Social History Socioeconomic History Marital status: Single Spouse name: Oren Number of children: 2 Years of education: None Highest education level: Bachelor's degree (e.g., BA, AB, BS) Occupational History 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 No Social Determinants of Health Financial Resource Strain: Low Risk (04/28/2023) Financial Resource Strain Within the past 12 months, have you or your family members you live with been unable to get utilities (heat, electricity) when it was really needed?: No Food Insecurity: Low Risk (04/28/2023) Food Insecurity Within the past 12 months, did you worry that your food would run out before you got money to buy more?: No Within the past 12 months, did the food you bought just not last and you didn???t have money to getmore?: No Transportation Needs: Low Risk (04/28/2023) Transportation Needs Within the past 12 months, has lack of transportation kept you from medical appointments, getting your medicines, non-medical meetings or appointments, work, or from getting things that you need?: No Physical Activity: Insufficiently Active (01/19/2023) Exercise Vital Sign Days of Exercise per Week: 1 day Minutes of Exercise per Session: 10 min Stress: Stress Concern Present (01/19/2023) [place] of Occupational Health - Occupational Stress Questionnaire Feeling of Stress : Very much Social Connections: Moderately Integrated (01/19/2023) Social Connection and Isolation Panel [NHANES] Frequency of Communication with Friends and Family: More than three times a week Frequency of Social Gatherings with Friends and Family: Once a week Attends [employer] Services: 1 to 4 times per year Active Member of Clubs or Organizations: No Marital Status: Living with partner Interpersonal Safety: Low Risk (04/28/2023) Interpersonal Safety Do you feel physically and emotionally safe where you currently live?: Yes Within the past 12 months, have you been hit, slapped, kicked or otherwise physically hurt by someone?: No Within the past 12 months, have you been humiliated or emotionally abused in other ways by your partner or ex-partner?: No Housing Stability: Low Risk (04/28/2023) Housing Stability Do you have housing? : Yes Are you worried about losing your housing?: No Current Outpatient Medications: Multiple Vitamin (MULTIVITAMIN ADULT PO), , Disp: , Rfl: norgestim-eth estrad triphasic (ORTHO TRI-CYCLEN) 0.18/0.215/0.25 MG-35 MCG tablet, TAKE 1 TABLET BY MOUTH EVERY DAY, Disp: 28 tablet, Rfl: 10 escitalopram (LEXAPRO) 10 MG tablet, Take 1 tablet (10 mg) by mouth daily (Patient not taking: Reported on 08/28/2023), Disp: 90 tablet, Rfl: 1 No Known Allergies Past medical, surgical, social and family history were reviewed and updated in EPIC. ROS: 12 point review of systems negative other than symptoms noted below. OBJECTIVE: EXAM: BP 120/70 Wt 56.2 kg (124 lb) BMI 21.97 kg/m?? BMI: Body mass index is 21.97 kg/m??. General: Alert and oriented, no distress. [...] contour, without enlargement, mobile, and without tenderness and Pap obtained Ovaries: No masses appreciated, non-tender, mobile Rectal Exam: deferred Musculoskeletal: extremities normal COUNSELING: Reviewed preventive health counseling, as reflected in patient instructions Contraception reports that she has never smoked. She has never used smokeless tobacco. ASSESSMENT/PLAN: 38 year old female with satisfactory annual exam (Z01.419) Encounter for gynecological examination without abnormal finding (primary encounter diagnosis) Comment: Normal exam Plan: Pap today and refill OCPs (Z12.4) Pap smear for cervical cancer screening Comment: Plan: Gynecologic Cytology (Pap) and HPV - Recommended Age 30-65 Years (Z11.3) Screen for STD (sexually transmitted disease) Comment: Plan: NEISSERIA GONORRHOEA PCR, CHLAMYDIA TRACHOMATIS PCR, HIV Antigen Antibody Combo Rome, Treponema Abs w Reflex to RPR and Titer, Hepatitis C antibody, Hepatitis B surface antigen, Wet prep - Clinic Collect Axel Carmona MD documented in this encounter Nursing Notes * Molly Pierre - 12/23/2023 1:30 PM CDT Chief Complaint Patient presents with Equipment Operating Engineer Exam Breast exam, pap and STI testing Initial BP 120/70 Wt 56.2 kg (124 lb) BMI 21.97 kg/m?? Estimated body mass index is 21.97 kg/m?? as calculated from the following: Height as of 04/28/23: 1.6 m (5' 3). Weight as of this encounter: 56.2 kg (124 lb). BP completed using cuff size: regular Questioned patient about current smoking habits. Pt. has never smoked. The following HM Due: pap smear documented in this encounter Plan of Treatment Upcoming Encounters Date Type Department Care Team (Late st Contact Info) Description 03/17/2024 9:00 AM CDT Virtual Visit [facility] [address] [place] [phone] Chanel Asher PA-C [address] [place], [place] [phone] 03/17/2024 9:45 AM CDT Office Visit [facility] [address] [facility] [address] [place] [phone] Jacob Carmona MD [address] [place], [place] [phone] documented as of this encounter Procedures Procedure Name Priority Date/Time Associated Diagnosis Comments HIV ANTIGEN ANTIBODY COMBO Routine 12/23/2023 1:57 PM CDT Screen for STD (sexually transmitted disease) TREPONEMA ABS W REFLEX TO RPR AND TITER Routine 12/23/2023 1:57 PM CDT Screen for STD (sexually transmitted disease) HEPATITIS C ANTIBODY Routine 12/23/2023 1:57 PM CDT Screen for STD (sexually transmitted disease) HEPATITIS B SURFACE ANTIGEN Routine 12/23/2023 1:57 [...] CDT Pap smear for cervical cancer screening documented in this encounter Results * Hepatitis B surface antigen (12/23/2023 1:57 PM CDT) Hepatitis B Surface Antigen Nonreactive Nonreactive 12/24/2023 1:36 PM CDT [facility] Blood BLOOD SPECIMEN / Unknown Venipuncture / Unknown 12/23/2023 1:57 PM CDT 12/23/2023 1:57 PM CDT Jacob Carmona MD LAB - BLOOD OR DERABLES Performing Organization Address [facility] Co de Phone Number LABOR[facility]ORY [facility] [address] [facility], [facility] [address] [address] * Hepatitis C antibody (12/23/2023 1:57 PM CDT) Pathologist [facility] Hepatitis C Antibody Nonreactive Nonreactive 12/24/2023 1:36 PM CDT [facility] Comment:A nonreactive screen ing test result [...] - BLOOD OR DERABLES Performing Organization Address [facility] Co de Phone Number LABORATORY [facility] Core Lab [address] [facility], [address] [address] * Treponema Abs w Reflex to RPR and Titer (12/23/2023 1:57 PM CDT) Treponema Antibody Total Nonreactive Nonreactive 12/23/2023 10:10 PM CDT SPECIALTY CORE/PROT/EN DO Blood BLOOD SPECIMEN / Unknown Venipuncture / Unknown 12/23/2023 1:57 PM CDT 12/23/2023 1:57 PM CDT Jacob Carmona MD LAB - BLOOD OR DERABLES SPECIALTY CORE/PROT/ENDO Specialty Core/Prot/Endo [address] [facility], [address] * HIV Antigen Antibody Combo [place] (12/23/2023 1:57 PM CDT) Pathologist [facility] HIV Antigen Antibody Combo Nonreactive Nonreactive 12/24/2023 [...] LAB - BLOOD OR DERABLES [facility] [address] [facility], [address] [phone] * (ABNORMAL) Wet prep - Clinic Collect (12/23/2023 1:42 PM CDT) Pathologist [facility] Trichomonas Absent Absent SHERI 12/23/2023 2:05 PM [...] - MICRO GE NERAL ORDERABLES RI LABORATORY [facility] [address] [facility], [address] [place] [address], [facility] [phone] * CHLAMYDIA TRACHOMATIS PCR (12/23/2023 1:42 PM CDT) Chlamydia trachomatis Negative Negative 12/24/2023 12:20 PM CDT [facility] Comment:A negative result by business management intern mediated amplification does not preclude the presence of C. trachomatis infection because results are dependent on proper and adequate collection, absence of inhibitors and sufficient rRNA to be detected. Swab CERVIX UTERI STRUCTURE / Unknown Non-blood Collection / Unknown 12/23/2023 1:42 PM CDT 12/23/2023 1:45 PM CDT Jacob Carmona MD LAB - MICRO GE NERAL ORDERABLES [facility] Inf. Diseases Diag. Lab [address] [facility], [address] [place] [address] * NEISSERIA GONORRHOEA PCR (12/23/2023 1:42 PM CDT) Neisseria gonorrhoeae Negative Negative 12/24/2023 12:20 PM CDT [facility] Comment:Negative for N. gono rrhoeae rRNA by business management intern mediated amplification. A negative result by business management intern mediated amplification does not preclude the presence of C. trachomatis infection because results are dependent on proper and adequate collection, absence of inhibitors and sufficient rRNA to be detected. Swab CERVIX UTERI STRUCTURE / Unknown Non-blood Collection / Unknown 12/23/2023 1:42 PM CDT 12/23/2023 1:45 PM CDT Jacob Carmona MD LAB - MICRO GE NERAL ORDERABLES [facility] Inf. Diseases Diag. Lab [address] [facility], [address] [place] [address], [facility] * Gynecologic Cytology (Pap) and HPV ??? [...] for high risk HPV DNA. METHODOLOGY: The [employer] system uses automated extraction, simultaneous amplification of [...] LAB - BLOOD OR DERABLES SPECIALTY LABS [facility] [address] [facility], [address] [place] [address], [facility] MOLECULAR DIAGNOSTICS [facility] [address] [facility] [address], [address] [place] [address] * Gynecologic Cytology (PAP) (12/23/2023 1:41 [...] component of this testing was completed at [facility]. Stain controls for all stains resulted within this report have been reviewed and show appropriate reactivity. 12/28/2023 12:43 PM CDT SPECIALTY LABS Brushing ENDOCERVICAL STRUCTURE / Unknown Non-blood Collection / Unknown 12/23/2023 1:41 PM CDT 12/24/2023 9:32 AM CDT Jacob LIMON - MADINA Kaur SPECIALTY LABS Specialty Lab [address] [facility] [address], [address] [place] [address] documented in this encounter Visit Diagnoses Diagnosis Encounter for gynecological examination without abnormal finding- Primary Routine gynecological examination Pap smear for cervical cancer screening Screening for malignant neoplasm of the cervix Screen for STD (sexually transmitted disease) Screening examination for venereal disease OCP (oral contraceptive pills) initiation General counseling for prescription of oral contraceptives documented in this encounter Additional Health Concerns Assessment Noted Time PHQ-9 Depression Total Score: 0 11/20/19 23 10:04 AM CDT documented as of this encounter Care Teams Counter Waitress/Waiter Relationship Specialty Start Date End Date Lisa Wright PA-C [address] [place] [phone] PCP - General Family Medicine 01/19/23 Jacob Carmona MD [address] [place], [place] [address] Assigned OBGYN Provider 05/18/20 Curtis Núñez MD [address] [facility] [address] [place], [place] [address] Assigned Pulmonology Provider 09/13/22 Lisa Wright PA-C [address] [place] [phone] Assigned PCP 01/24/23 documented as of this encounter
--- OUTSIDE RECORDS SUMMARY | 2024-03-15 08:44 | XMS_ITS | Encounter Summary ---
Author Organization [facility] Address [address] [place] [address]. [place] [address] Care Team Providers Care Educational Assistant Name Role Phone Jacob Carmona MD Unavailable [phone] Curtis Núñez MD Unavailable Lisa Wright PA-C Primary Care Provider Lisa Wright PA-C Unavailable [phone] Encounter Details Date Type Department Care Team (Late st Contact Info) Description 08/02/2023 MyC Medical Advice [facility] [address] [place] [phone] Jacob Carmona MD [address] [place] [address] Social History Tobacco Use Types Packs/Day Years [...] How often do you attend chur or confucianist services? 1 to 4 times per year 01/19/2023 Do you belong to any clubs o r organizations such as rastafarian groups, unions, fraternal [...] PHQ-2 Answer Date Recorded PHQ-2 Score 0 11/19/2022 [facility] - Occupational Stress Questionnaire Answer Date [...] exercise at this level? 10 min 01/19/2023 [place] Depression Scale Answer Date Recorded [place] Depression Score 2 09/21/2019 Last EPDS Self [...] in an abandoned building, in an overnight longterm, or couch-surfing.) Yes 04/28/2023 Are you worried [...] Description 03/17/2024 9:00 AM CDT Virtual Visit [facility] [address] [place] [phone] Chanel Asher PA-C [id number] [place] [address] 03/17/2024 9:45 AM CDT Office Visit [place] [address] [facility] [address] [place] [address] Jacob Carmona MD [address] [place] [address] documented as of this encounter Visit Diagnoses Not on filedocumented in this encounter Additional Health Concerns Assessment Noted Time PHQ-9 Depression Total Score: 0 11/20/19 10:04 AM CDT documented as of this encounter Care Teams Educational Assistant Relationship Specialty Start Date End Date Lisa Wright PA-C [address] [place] [address] PCP - General Family Medicine 01/19/23 Jacob Carmona MD [address] [place] [address] Assigned OBGYN Provider 05/18/20 Curtis Núñez MD [address] [place] [address] 276 [place] [address] Assigned Pulmonology Provider 09/13/22 Lisa Wright PA-C [address] [place] [address] Assigned PCP 01/24/23 documented as of this encounter
--- OUTSIDE RECORDS SUMMARY | 2024-03-15 08:44 | XMS_ITS | Encounter Summary ---
Author Organization [place] Address [address] [place] [address]. [place] [address] Care Team Providers Care Pipeline Technician Name Role Phone Jacob Carmona MD Unavailable Curtis Núñez MD Unavailable [phone] Lisa Wright PA-C Primary Care Provider Lisa Wright PA-C Unavailable [phone] Encounter Details Date Type Department Care Team (Late st Contact Info) Description 02/16/2024 MyC Medical Advice [facility] [address] [place] [phone] Nilay Man PA-C [id number] [place] [address] [phone] Elevated fasting glucose (Primary Dx) Social History Tobacco Use Types Packs/Day Years [...] re latives? Once a week 02/16/2024 Attends Cheondoism Services Not on file 02/15 Active Member [...] Answer Date Recorded PHQ-2 Score 0 02/16/2024 [facility] of Occupat ional Health - Occupational Stress [...] exercise at this level? 20 min 02/16/2024 [place] Depression Scale Answer Date Recorded [place] Depression Score 2 09/21/2019 Last EPDS Self [...] as of this encounter Miscellaneous Notes * Addendum Note - Nilay Man PA-C - 02/16/2024 4:00 PM CDTAddended by: NILAY MAN on: 02/17/2024 11:39 AM Modules accepted: Orders documented in this encounter Plan of Treatment Upcoming Encounters Date Type Department Care Team (Late st Contact Info) Description 03/17/2024 9:00 AM CDT Virtual Visit [facility] [address] [place] [phone] Nilay Man PA-C [address] [place] [address] 03/17/2024 9:45 AM CDT Office Visit [address] [place] [phone] Jacob Carmona MD [address] [place] [address] documented as of this encounter Results * Hemoglobin A1c (03/15/2024 7:39 AM CDT) Hemoglobin A1C 5.0 0.0 - 5.6 % 03/15/2024 7:51 AM CDT CR LABORATORY Comment: Normal <5.7% Prediabetes 5.7-6.4% ?? Diabetes 6.5% or higher Note: Adopted from ADA consensus guidelines. Blood BLOOD SPECIMEN / Unknown Venipuncture / Unknown 03/15/2024 7:39 AM CDT 03/15/2024 7:44 AM CDT Nilay Man PA-C LAB - BLOOD ORDERA BLES CR LABORATORY [facility] [address] [facility] (no room number, 1st floor of clinic) [place] [address] documented in this encounter Visit Diagnoses Diagnosis Elevated fasting glucose- Primary Impaired fasting glucose documented in this encounter Additional Health Concerns Assessment Noted Time PHQ-9 Depression Total Score: 5 02/16/20 24 6:57 AM CDT documented as of this encounter Care Teams Pipeline Technician Relationship Specialty Start Date End Date Lisa Wright PA-C [address] [place] [address] PCP - General Family Medicine 01/19/23 Jacob Carmona MD [address] [place] [address] Assigned OBGYN Provider 05/18/20 Curtis Núñez MD [address] [place] [address] Assigned Pulmonology Provider 09/13/22 Lisa Wright PA-C [address] [place] [address] Assigned PCP 01/24/23 documented as of this encounter
--- OUTSIDE RECORDS SUMMARY | 2024-03-15 08:44 | XMS_ITS | Encounter Summary ---
Author Organization [place] Address [address] [place] [address]. [place] [address] Care Team Providers Care Field Test Engineer Name Role Phone Jacob Carmona MD Unavailable Curtis Núñez MD Unavailable Lisa Wright PA-C Primary Care Provider [phone] Lisa Wright PA-C Unavailable [phone] Reason for Visit * Reason Onset Date Comments Postcoital bleeding 03/11/2024 Encounter Details Date Type Department Care Team (Late st Contact Info) Description 03/11/2024 MyC Medical Advice [facility] Women's [facility] [address] [place] [phone] Jacob Carmona MD [address] [place] [address] Postcoital bleeding Social History Tobacco Use Types Packs/Day Years [...] re latives? Once a week 02/16/2024 Attends Yazdanism Services Not on file 02/15 Active Member [...] Answer Date Recorded PHQ-2 Score 0 02/16/2024 [facility] of Occupat ional Health - Occupational [...] exercise at this level? 20 min 02/16/2024 [place] Depression Scale Answer Date Recorded [place] Depression Score 2 09/21/2019 Last EPDS Self [...] Description 03/17/2024 9:00 AM CDT Virtual Visit [facility] [address] [place] [address] [phone] Chanel Asher PA-C [id number] [place] [address] 03/17/2024 9:45 AM CDT Office Visit [place] [address] [facility] [address] [place] [phone] Jacob Carmona MD [address] [place], [place] [address] documented as of this encounter Visit Diagnoses Not on filedocumented in this encounter Additional Health Concerns Assessment Noted Time PHQ-9 Depression Total Score: 5 02/16/20 24 6:57 AM CDT documented as of this encounter Care Teams Field Test Engineer Relationship Specialty Start Date End Date Lisa Wright PA-C [address] [place] [address] PCP - General Family Medicine 01/19/23 Jacob Carmona MD [address] [place], [place] 8433[address] Assigned OBGYN Provider 05/18/20 Curtis Núñez MD [address] [facility] 276 [place], [place] [address] Assigned Pulmonology Provider 09/13/22 Lisa Wright PA-C [address] [place] [phone] Assigned PCP 01/24/23 documented as of this encounter
--- OUTSIDE RECORDS SUMMARY | 2024-03-15 08:44 | XMS_ITS | Encounter Summary ---
Author Organization [facility] Address [address] [place] [address]. [place] [address] Care Team Providers Care Business Relations Manager Name Role Phone Jacob Carmona MD Unavailable Curtis Núñez MD Unavailable Lisa Wright PA-C Primary Care Provider [phone] Lisa Wright PA-C Unavailable [phone] Reason for Referral * Diagnostic Imaging Ultrasound (Routine) - Pending Review Specialty Diagnoses / Procedures Referred By Contac t Referred To Contact Radiology. Diagnoses Mass of upper outer quadrant of left breast Procedures US Breast Left Limited 1-3 Quadrants Chanel Asher PA-C [address] [place] [address] Referral ID Status Reason Start Date Expiration Date V isits Requested Visits Authorized [id number] Pending Review 02/16/2024 02/15/2025 1 1 Reason for Visit * Diagnostic Imaging Ultrasound (Routine) - Pending Review Specialty Diagnoses / Procedures Referred By Contac t Referred To Contact Radiology. Diagnoses Mass of upper outer quadrant of left breast Procedures US Breast Left Limited 1-3 Quadrants Chanel Asher PA-C [address] [place] [address] Referral ID Status Reason Start Date Expiration Date V isits Requested Visits Authorized [id number] Pending Review 02/16/2024 02/15/2025 1 1 Encounter Details Date Type Department Care Team (Latest Contact Info) Description 02/24/2024 7:19 AM CDT - 02/24/2024 11:59 PM CDT Hospital Encounter [facility] [address] [facility], [address] [place] [address] Chanel Asher PA-C [address] [place], [place] [phone] Mass of upper outer quadrant of left [...] re latives? Once a week 02/16/2024 Attends Mormon Services Not on file 02/15 Active Member [...] Answer Date Recorded PHQ-2 Score 0 02/16/2024 [facility] of Occupat ional Health - Occupational Stress [...] exercise at this level? 20 min 02/16/2024 [place] Depression Scale Answer Date Recorded [place] Depression Score 2 09/21/2019 Last EPDS Self [...] in an abandoned building, in an overnight fci, or couch-surfing.) Yes 02/16/2024 Are you worried [...] Description 03/17/2024 9:00 AM CDT Virtual Visit [facility] [address] [place] [phone] Chanel Asher, DEMARCUS [address] [place] [address] 03/17/2024 9:45 AM CDT Office Visit [facility] [address] [facility] [address] [place] [phone] Jacob Carmona MD [address] [place] [place], [place] [phone] documented as of this encounter Procedures Procedure Name Priority Date/Time Associated Diagnosis Comments US BREAST LEFT LIMITED 1-3 QUADRANTS Routine 02/24/2024 8:13 AM CDT Mass of upper outer quadrant of left breast documented in this encounter Results * US Breast Left [...] underlying sonographic abnormalities. Chanel Asher PA-C IMHarish US ORDERABLES documented in this encounter Visit Diagnoses Diagnosis Mass of upper outer quadrant of left breast documented in this encounter Additional Health Concerns Assessment Noted Time PHQ-9 Depression Total Score: 5 02/16/20 24 6:57 AM CDT documented as of this encounter Care Teams Business Relations Manager Relationship Specialty Start Date End Date Lisa Wright PA-C [address] [place] [address] PCP - General Family Medicine 01/19/23 Jacob Carmona MD [address] [place] [address] Assigned OBGYN Provider 05/18/20 Curtis Núñez MD [address] [facility] 276 [place] [address] Assigned Pulmonology Provider 09/13/22 Lisa Wright PA-C [address] [place] [phone] Assigned PCP 01/24/23 documented as of this encounter
--- OUTSIDE RECORDS SUMMARY | 2024-03-15 08:44 | XMS_ITS | Encounter Summary ---
Author Organization [place] Address [address] [place] [address]. [place] [address] Care Team Providers Care Skills Auditor Name Role Phone Jacob Carmona MD Unavailable Curtis Núñez MD Unavailable Lisa Wright PA-C Primary Care Provider Lisa Wright PA-C Unavailable [phone] Encounter Details Date Type Department Care Team (Latest Contact Info) Description 12/23/2023 Travel Social History Tobacco Use Types Packs/Day [...] 01/19/2023 How often do you attend chur ch or adventist services? 1 to 4 times per year 01/19/2023 Do you belong to any clubs o r organizations such as worship groups, unions, fraternal [...] Answer Date Recorded PHQ-2 Score 0 08/28/2023 [facility] of Occupat ional Health - Occupational [...] exercise at this level? 10 min 01/19/2023 [place] Depression Scale Answer Date Recorded [place] Depression Score 2 09/21/2019 Last EPDS Self [...] an overnight senior living, or couch-surfing.) Yes 04/28/2023 Are you worried [...] Description 03/17/2024 9:00 AM CDT Virtual Visit [facility] [id number] [place] [phone] Chanel Asher, PAJonnathanC [address] [place] [address] 03/17/2024 9:45 AM CDT Office Visit [facility] [address] [facility] [address] [place] [address] Jacob Carmona MD [address] [place], [place] [address] documented as of this encounter Visit Diagnoses Not on filedocumented in this encounter Additional Health Concerns Assessment Noted Time PHQ-9 Depression Total Score: 0 11/20/19 23 10:04 AM CDT documented as of this encounter Care Teams Skills Auditor Relationship Specialty Start Date End Date Lisa Wright PA-C [address] [place] [phone] PCP - General Family Medicine 01/19/23 Jacob Carmona MD [address] [place], [place] [phone] Assigned OBGYN Provider 05/18/20 Curtis Núñez MD [address] [place] [address] 276 [place], [place] [phone] Assigned Pulmonology Provider 09/13/22 Lisa Wright PA-C [address] [place] [phone] Assigned PCP 01/24/23 documented as of this encounter
--- OUTSIDE RECORDS SUMMARY | 2024-03-15 08:44 | XMS_ITS | Encounter Summary ---
Author Organization [place] Address [address] [place] [address]. [place] [address] Care Team Providers Care Factory Hand Name Role Phone Jacob Carmona MD Unavailable [phone] Curtis Núñez MD Unavailable Lisa Wright PA-C Primary Care Provider Lisa Wright PA-C Unavailable [phone] Reason for Visit * Reason Comments Medication Refill Encounter Details Date Type Department Care Team (Late st Contact Info) Description [facility]/05/[facility] [address] [place] [phone] Chanel Asher PA-C [address] [place] [address] Medication Refill Social History Tobacco Use Types Packs/Day Years [...] re latives? Once a week 02/16/2024 Attends Denominational Services Not on file 02/15 Active Member [...] Answer Date Recorded PHQ-2 Score 0 02/16/2024 [facility] of Occupat ional Health - Occupational Stress [...] exercise at this level? 20 min 02/16/2024 [place] Depression Scale Answer Date Recorded [place] Depression Score 2 09/21/2019 Last EPDS Self [...] in an abandoned building, in an overnight [facility], or couch-surfing.) Yes 02/16/2024 Are you worried [...] Description 03/17/2024 9:00 AM CDT Virtual Visit [facility] [address] [place] [phone] Chanel Asher PA-C [id number] [place] [address] 03/17/2024 9:45 AM CDT Office Visit [facility] [address] [facility] [address] [place] [address] Jacob Carmona MD [address] [place] [address] documented as of this encounter Visit Diagnoses Diagnosis Muscle spasm Spasm of muscle documented in this encounter Additional Health Concerns Assessment Noted Time PHQ-9 Depression Total Score: 5 02/16/20 24 6:57 AM CDT documented as of this encounter Care Teams Factory Hand Relationship Specialty Start Date End Date Lisa Wright PA-C [address] [place] [address] PCP - General Family Medicine 01/19/23 Jacob Carmona MD [address] [place] [address] Assigned OBGYN Provider 05/18/20 Curtis Núñez MD [address] [place] [address] 276 [place] [address] Assigned Pulmonology Provider 09/13/22 Lisa Wright PA-C [address] [place] [address] Assigned PCP 01/24/23 documented as of this encounter
--- OUTSIDE RECORDS SUMMARY | 2024-03-15 08:45 | XMS_ITS | Encounter Summary ---
Author Organization [place] Address [address] [place] [address]. [place] [address] Care Team Providers Care Community Engagement Representative Name Role Phone Annalisa Mark APRN, CNP Primary Care Provi miguel Unavailable Jacob Carmona MD Unavailable Leonor Burgos MD Unavailable + DeedeeAnnalisa dean APRN, CNP Unavailable Un available Jacob Carmona MD Primary Care Provider Leonor Burgos MD Unavailable + [facility] Primary Care Provider Annalisa Mark APRN TRANSMISSION BUILDER Unavailable Un available Curtis Núñez MD Unavailable [phone] Leonor uBrgos MD Unavailable + Annalisa Mark APRN, CNP Unavailable Un available Lisa Wright PA-C Primary Care Provider [phone] Lisa Wright PA-C Unavailable [phone] Encounter Details Date Type Department Care Team (Late st Contact Info) Description 04/14/2022 [facility] [address] [place] [phone] Jacob Carmona MD [address] [place] [address] Social History Tobacco Use Types Packs/Day Years Used Date Smoking Tobacco: Never Smokeless Tobacco: Never Alcohol Use Standard Drinks/Week Comments Not Currently 0 (1 standard drink = 0.6 oz pur e alcohol) Occaisional Social Connection and Isolat ion Panel [NHANES] Answer Date Recorded In a typical week, how many times do you talk on the phone with family, friends, or neighbors? More than three times a week 10/16/2021 How often do you get togethe r with friends or relatives? Once a week 10/16/2021 How often do you attend [facility] or pentecostalism services? Patient declined 10/16/2021 Do you belong to any clubs o r organizations such as anabaptism groups, unions, fraternal or athletic groups, or school groups? No 10/16/2021 Attends Club or Organization Meetings Not on damion e 10/16/2021 Are you , , di vorced, , never , or living with a partner? Never 10/16/2021 AUDIT-C Answer Date Recorded Q1: How often do you have a drink containing alc ohol? Monthly or less 10/16/2021 Q2: How many drinks containi ng alcohol do you have on a typical day when you are drinking? 1 or 2 10/16/2021 Q3: How often do you have si x or more drinks on one occasion? Never 10/16/2021 Overall Financial Resource Strain (CARDIA) Answe r Date Recorded How hard is it for you to pa y for the very basics like food, housing, medical care, and heating? Not hard at all 10/16/2021 PHQ-2 Answer Date Recorded PHQ-2 Score 0 04/08/2022 [facility] of Occupat ional Health - Occupational Stress Questionnaire Answer Date Recorded Do you feel stress - tense, restless, nervous, or anxious, or unable to sleep at night because your mind is troubled all the time - these days? To some extent 10/16/2021 Exercise Vital Sign Answer Date Recorde d On average, how many days pe r week do you engage in moderate to strenuous exercise (like a brisk walk)? 6 days 10/16/2021 On average, how many minutes do you engage in exercise at this level? 10 min 10/16/2021 Hunger Vital Sign Answer Date Recorded Within the past 12 months, y ou worried that your food would run out before you got the money to buy more. Never true 10/17/19 22 Within the past 12 months, t he food you bought just didn't last and you didn't have money to get more. Never true 10/16/2021 PRAPARE - Transportation Answer Date Re corded In the past 12 months, has l ack of transportation kept you from medical appointments or from getting medications? No 09/25 In the past 12 months, has l ack of transportation kept you from meetings, work, or from getting things needed for daily living? No 10/16/2021 Housing Stability Vital Sign Answer Rafael e Recorded In the last 12 months, was t here a time when you were not able to pay the mortgage or rent on time? No 10/16/2021 In the last 12 months, how many places have you lived? 1 10/16/2021 In the last 12 months, was t here a time when you did not have a steady place to sleep or slept in a penitentiary (including now)? No 10/16/2021 [place] Depression Scale Answer Date Recorded [place] Depression Score 2 09/21/2019 Last EPDS Self Harm Result Not on file 09/21 Education Answer Date Recorded What is the [...] Description 03/17/2024 9:00 AM CDT Virtual Visit [address] [phone] Chanel Asher PA-C [address] [place], [place] [phone] 03/17/2024 9:45 AM CDT Office Visit 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 C-difficile 09/10/2022 09/10/2022 10/10/2022 11:3 9 PM CDT Assessment Noted Time PHQ-9 Depression Total Score: 1 04/08/20 22 4:38 PM CDT documented as of this encounter Care Teams Community Engagement Representative Relationship Specialty Start Date End Date Annalisa Mark APRN TRANSMISSION BUILDER PCP - General Nurse Practitioner 03/22/15 06/29/22 Jacob Carmona MD [address] [place] [address] PCP - General 06/30/22 08/28/22 [facility] [address] [place], [place] [phone] PCP - General 08/29/22 01/18/23 Lisa Wright PA-C [address] [place] [phone] PCP - General Family Medicine 01/19/23 Jacob Carmona MD [address] [facility] [address] Assigned OBGYN Provider 05/18/20 Leonor Burgos MD PRIMARY ENT [address] [place], [place] [address] Assigned PCP 02/22/22 05/16/22 Annalsia Mark APRN TRANSMISSION BUILDER Assigned PCP 05/17/22 08/15/22 Leonor Burgos MD PRIMARY ENT [address] [facility] [address] [place] [address] Assigned PCP 08/16/22 08/29/22 Annalisa Mark APRN TRANSMISSION BUILDER [address] [place] [address] Assigned PCP 08/30/22 11/21/22 Curtis Núñez MD [address] [facility] 276 [place] [address] Assigned Pulmonology Provider 09/13/22 Leonor Burgos MD PRIMARY ENT [address] [place] [address] Assigned PCP 11/22/22 11/28/22 Annalisa Mark APRN TRANSMISSION BUILDER Assigned PCP 11/29/22 01/23/23 Lisa Wright PA-C [address] [facility] [place] [address] Assigned PCP 01/24/23 documented as of this encounter
--- OUTSIDE RECORDS SUMMARY | 2024-03-15 08:45 | XMS_ITS | Encounter Summary ---
Author Organization [address] Address [address] [place] [address]. [place] [address] Care Team Providers Care Glove Examiner Name Role Phone Jacob Carmona MD Unavailable [phone] [facility] Primary Care Provider Curtis Núñez MD Unavailable Leonor Burgos MD Unavailable + Annalisa Mark APRN CLASSROOM TECHNOLOGY COACH Unavailable Un available Lisa Wright PA-C Primary Care Provider [phone] Lisa Wright PA-C Unavailable [phone] Encounter Details Date Type Department Care Team (Late st Contact Info) Description 11/23/2022 MyC Medical Advice [facility] [address] [place] [address] Jacob Carmona MD [address] [place] [address] Social History Tobacco Use Types Packs/Day Years [...] week 10/16/2021 How [facility] do you attend [facility] or caoda[facility] services? Patient declined 10/16/2021 Do you belong to any clubs o r organizations such as presybeterian groups, unions, fraternal [...] Answer Date Recorded PHQ-2 Score 0 11/19/2022 [facility] of Occupat ional [facility] - Occupational Stress Questionnaire Answer [...] slept in a long term (including now)? No 10/16/2021 [place] Depression Scale Answer Date Recorded [place] Depression Score 2 09/21/2019 Last EPDS Self [...] Orientation Straight 03/25/2021 2: 01 PM CDT COVID-19 Exposure Response Date Recorded In the last 10 days, have yo u been in contact with someone who was confirmed or suspected to have Coronavirus/COVID-19? No / Unsure 11/26/2022 7:50 AM CDT documented as of this encounter Plan of Treatment Upcoming Encounters Date Type Department Care Team (Late st Contact Info) Description 03/17/2024 9:00 AM CDT Virtual Visit [address] [phone] Chanel Asher PA-C [id number] [place] [address] [phone] 03/17/2024 9:45 AM CDT Office Visit [facility] [address] [facility] [address] [place] [phone] Jacob Carmona MD [address] [place], [place] [address] documented as of this encounter Visit Diagnoses Not on filedocumented in this encounter Additional Health Concerns Assessment Noted Time PHQ-9 Depression Total Score: 0 11/20/19 10:04 AM CDT documented as of this encounter Care Teams Glove Examiner Relationship Specialty Start Date End Date Clinic - [facility] [address] [place], [place] [phone] PCP - General 08/29/22 01/18/23 Lisa Wright, PA-C [id number] [place] [phone] PCP - General Family Medicine 01/19/23 Jacob Carmona MD [address] [place], [place] 083267 Assigned OBGYN Provider 05/18/20 Curtis Núñez MD [address] [place] [address] 276 [place] [address] Assigned Pulmonology Provider 09/13/22 Leonor Burgos MD PRIMARY ENT [address] [place] [address] Assigned PCP 11/22/22 11/28/22 Annalisa Mark APRN CLASSROOM TECHNOLOGY COACH Assigned PCP 11/29/22 01/23/23 Lisa Wright PA-C [address] [place] [phone] Assigned PCP 01/24/23 documented as of this encounter
--- OUTSIDE RECORDS SUMMARY | 2024-03-15 08:45 | XMS_ITS | Encounter Summary ---
Author Organization [place] Address [address] [place] [address]. [place] [address] Care Team Providers Care Diesel Engine Assembler Name Role Phone Annalisa Mark APRN, CNP Primary Care Provi miguel Unavailable Jacob Carmona MD Unavailable [phone] Annalisa Mark APRN, CNP Unavailable Un available Jacob Carmona MD Primary Care Provider Leonor Burgos MD Unavailable + [facility] Primary Care Provider Annalisa Mark APRN PLUMBING DESIGNER Unavailable Un available Curtis Núñez MD Unavailable [phone] Leonor Burgos MD Unavailable + Annalisa Mark APRN, CNP Unavailable Un available Lisa Wright PA-C Primary Care Provider [phone] Lisa Wright PA-C Unavailable [phone] Reason for Visit * Reason Onset Date Comments Pelvic Pain 06/26/2022 Encounter Details Date Type Department Care Team (Late st Contact Info) Description 06/26/2022 [facility] Medical Advice [address] [place] [address] [place] [address] Jacob Carmona MD [address] [place] [address] Pelvic Pain Social History Tobacco Use Types Packs/Day Years [...] week 10/16/2021 How often do you attend [facility] or gnosticist services? Patient declined 10/16/2021 Do you belong to any clubs o r organizations such as christian groups, unions, fraternal [...] Answer Date Recorded PHQ-2 Score 0 04/08/2022 [facility] [place] of Occupat ional Health - Occupational Stress [...] or slept in a mcc (including now)? No 10/16/2021 [place] Depression Scale Answer Date Recorded [place] Depression Score 2 09/21/2019 Last EPDS Self [...] suspected to have Coronavirus/COVID-19? No / Unsure 06/26/2022 10:43 AM SECURITY ORDERLY documented as of this encounter Plan of Treatment Upcoming Encounters Date Type Department Care Team (Late st Contact Info) Description 03/17/2024 9:00 AM CDT Virtual Visit [facility] [address] [place] [phone] Chanel Asher PA-C [id number] [place] [phone] 03/17/2024 9:45 AM CDT Office Visit [facility] [address] [facility] [address] [place] [phone] Jacob Carmona MD [address] [place], [place] [phone] documented as of this encounter Visit Diagnoses Not on filedocumented in this encounter Additional Health Concerns Infection Onset Date Last Indicated Resolved Time Rule Out C-difficile 09/10/2022 09/10/2022 023 5:27 PM SECURITY ORDERLY C-difficile 09/10/2022 09/10/2022 10/10/2022 11:3 9 PM CDT Assessment Noted Time PHQ-9 Depression Total Score: 1 04/08/20 22 4:38 PM CDT documented as of this encounter Care Teams Diesel Engine Assembler Relationship Specialty Start Date End Date Annalisa Mark APRN PLUMBING DESIGNER PCP - General Nurse Practitioner 03/22/15 06/29/22 Jacob Carmona MD [address] [place] [address] PCP - General 06/30/22 08/28/22 [facility] [id number] [place] [address] [id number] PCP - General 08/29/22 01/18/23 Lisa Wright PA-C [id number] [place] [phone] PCP - General Family Medicine 01/19/23 Jacob Carmona MD [address] [place] [address] Assigned OBGYN Provider 05/18/20 Annalisa Mark APRN PLUMBING DESIGNER Assigned PCP 05/17/22 08/15/22 Leonor Burgos MD PR[facility] [address] [place], [place] [address]88 Assigned PCP 08/16/22 08/29/22 Annalisa Mark APRN PLUMBING DESIGNER [address] [place] [address] Assigned PCP 08/30/22 11/21/22 Curtis Núñez MD [address] [facility] 276 [place], [place] [address] Assigned Pulmonology Provider 09/13/22 Leonor Burgos MD PRIMARY ENT [address] [facility] [address] [place] [address] Assigned PCP 11/22/22 11/28/22 Annalisa Mark APRN PLUMBING DESIGNER Assigned PCP 11/29/22 01/23/23 Lisa Wright PA-C [address] [place] [phone] Assigned PCP 01/24/23 documented as of this encounter
--- OUTSIDE RECORDS SUMMARY | 2024-03-15 08:45 | XMS_ITS | Encounter Summary ---
Author Organization [place] Address [address] [place] [address]. [place] [address] Care Team Providers Care Equipment Validation Specialist Name Role Phone Jacob Carmona MD Unavailable DeedeeAnnalisa dean APRN HAND FABRIC CUTTER Unavailable Un available Jacob Carmona MD Primary Care Provider Leonor Burgos MD Unavailable + [facility] Primary Care Provider Annalisa Mark APRN HAND FABRIC CUTTER Unavailable Un available Curtis Núñez MD Unavailable [phone] Leonor Burgos MD Unavailable + DeedeeAnnalisa dean APRN HAND FABRIC CUTTER Unavailable Un available Lisa Wright PA-C Primary Care Provider [phone] Lisa Wright PA-C Unavailable [phone] Encounter Details Date Type Department Care Team (Late st Contact Info) Description 06/30/2022 [facility] [address] [place] [address] Jacob Carmona MD [facility] [place] [address] Social History Tobacco Use Types Packs/Day Years [...] week 10/16/2021 How often do you attend [facility] or samaritan services? Patient declined 10/16/2021 Do you belong to any clubs o r organizations such as mandaeism groups, unions, fraternal [...] PHQ-2 Answer Date Recorded PHQ-2 Score 0 07/03/2022 [facility] [place] of Occupat ional Health - Occupational Stress [...] or slept in a retirement (including now)? No 10/16/2021 [place] Depression Scale Answer Date Recorded [place] Depression Score 2 09/21/2019 Last EPDS Self [...] suspected to have Coronavirus/COVID-19? No / Unsure 07/03/2022 10:04 AM COMMERCIAL CREDIT PORTFOLIO MANAGER documented as of this encounter Plan of Treatment Upcoming Encounters Date Type Department Care Team (Late st Contact Info) Description 03/17/2024 9:00 AM CDT Virtual Visit [address] [place] [address] Chanel Asher PA-C [id number] [place] [address] [phone] 03/17/2024 9:45 AM CDT Office Visit [facility] [address] [facility] [address] [place] [phone] Jacob Carmona MD [address] [place] [address] documented as of this encounter Visit Diagnoses Not on filedocumented in this encounter Additional Health Concerns Infection Onset Date Last Indicated Resolved Time Rule Out C-difficile 09/10/2022 09/10/2022 023 5:27 PM COMMERCIAL CREDIT PORTFOLIO MANAGER C-difficile 09/10/2022 09/10/2022 10/10/2022 11:3 9 PM CDT Assessment Noted Time PHQ-9 Depression Total Score: 1 04/08/20 22 4:38 PM CDT documented as of this encounter Care Teams Equipment Validation Specialist Relationship Specialty Start Date End Date Jacob Carmona MD [address] [place] [address] PCP - General 06/30/22 08/28/22 Clinic - [facility] [id number] [place] [address] [phone] PCP - General 08/29/22 01/18/23 Lisa Wright PA-C [id number] [place] [phone] PCP - General Family Medicine 01/19/23 Jacob Carmona MD [address] [place] [address] Assigned OBGYN Provider 05/18/20 Annalisa Mark APRN HAND FABRIC CUTTER Assigned PCP 05/17/22 08/15/22 Leonor Burgos MD PRIMARY [facility] [address] [place], [place] [address] Assigned PCP 08/16/22 08/29/22 Annalisa Mark APRN HAND FABRIC CUTTER [address] [facility] [place] [address] Assigned PCP 08/30/22 11/21/22 Curtis Núñez MD [address] [facility] 276 [place] [address] Assigned Pulmonology Provider 09/13/22 Leonor Burgos MD [facility]IMARY [facility] [address] [facility] [address] [place] [address] Assigned PCP 11/22/22 11/28/22 Annalisa Mark APRN HAND FABRIC CUTTER Assigned PCP 11/29/22 01/23/23 Lisa Wright PA-C [address] [place] [phone] Assigned PCP 01/24/23 documented as of this encounter
--- OUTSIDE RECORDS SUMMARY | 2024-03-15 08:45 | XMS_ITS | Encounter Summary ---
Author Organization [place] Address [address] [place] [address]. [place] [address] Care Team Providers Care Residential Specialist Name Role Phone Jacob Carmona MD Unavailable [phone] DeedeeAnnalisa dean APRN ADHESIVE PRIMER Unavailable Un available Jacob Carmona MD Primary Care Provider Leonor Burgos MD Unavailable + [facility] Primary Care Provider Annalisa Mark APRN ADHESIVE PRIMER Unavailable Un available Curtis Núñez MD Unavailable [phone] Leonor Burgos MD Unavailable + DeedeeAnnalisa dean APRN ADHESIVE PRIMER Unavailable Un available Lisa Wright PA-C Primary Care Provider [phone] Lisa Wright PA-C Unavailable [phone] Encounter Details Date Type Department Care Team (Late st Contact Info) Description 07/15/2022 [facility] Clement Herbert [address] [place] [address] Jacob Carmona MD [facility] [place] [address] Social History Tobacco Use Types Packs/Day Years [...] week 10/16/2021 How often do you attend [facility] or anglican services? Patient declined 10/16/2021 Do you belong to any clubs o r organizations such as gnosticist groups, unions, fraternal [...] Answer Date Recorded PHQ-2 Score 0 07/03/2022 [facility] [place] of Occupat ional Health - Occupational Stress [...] or slept in a detention (including now)? No 10/16/2021 [place] Depression Scale Answer Date Recorded [place] Depression Score 2 09/21/2019 Last EPDS Self [...] Coronavirus/COVID-19? No / Unsure 07/03/2022 10:04 AM COVER INSPECTOR documented as of this encounter Miscellaneous Notes * Telephone Encounter - Pamella Chapman RN - 07/15/2022 1:39 PM CST Please address the my chart message. Pt had surgery on 07/08/22. Geronimo Chapman, RN R INSPECTOR documented in this encounter Plan of Treatment Upcoming Encounters Date Type Department Care Team (Late st Contact Info) Description 03/17/2024 9:00 AM CDT Virtual Visit [facility] [address] [place] [phone] Chanel Asher PA-C [id number] [place] [address] 03/17/2024 9:45 AM CDT Office Visit [facility] [address] [facility] [address] [place] [address] Jacob Carmona MD [address] [place] [address] documented as of this encounter Visit Diagnoses Not on filedocumented in this encounter Additional Health Concerns Infection Onset Date Last Indicated Resolved Time Rule Out C-difficile 09/10/2022 09/10/2022 023 5:27 PM COVER INSPECTOR C-difficile 09/10/2022 09/10/2022 10/10/2022 11:3 9 PM CDT Assessment Noted Time PHQ-9 Depression Total Score: 1 04/08/20 22 4:38 PM CDT documented as of this encounter Care Teams Residential Specialist Relationship Specialty Start Date End Date Jacob Carmona MD [address] [place] [address] PCP - General 06/30/22 08/28/22 [facility] [id number] [place] [address] PCP - General 08/29/22 01/18/23 Lisa Wright PA-C [address] [place] [phone] PCP - General Family Medicine 01/19/23 Jacob Carmona MD [address] [place] [address] Assigned OBGYN Provider 05/18/20 Annalisa Mark APRN ADHESIVE PRIMER Assigned PCP 05/17/22 08/15/22 Leonor Burgos MD PRIMARY ENT [address] [facility] [address] [place], [place] [address] Assigned PCP 08/16/22 08/29/22 Annalisa Mark APRN ADHESIVE PRIMER [address] [facility] [place] [address] Assigned PCP 08/30/22 11/21/22 Curtis Núñez MD [address] [facility] 276 [place], [place] [address] Assigned Pulmonology Provider 09/13/22 Leonor Burgos MD [facility] [address] [facility] [address] [place] [address] Assigned PCP 11/22/22 11/28/22 Annalisa Mark APRN ADHESIVE PRIMER Assigned PCP 11/29/22 01/23/23 Lisa Wright PA-C [address] [place] [phone] Assigned PCP 01/24/23 documented as of this encounter
--- OUTSIDE RECORDS SUMMARY | 2024-03-15 08:45 | XMS_ITS | Encounter Summary ---
Author Organization [place] Address [address] [place] [address]. [place] [address] Care Team Providers Care Screed Operator Name Role Phone Jacob Carmona MD Unavailable Curtis Núñez MD Unavailable [phone] Lisa Wright PA-C Primary Care Provider [phone] Lisa Wright PA-C Unavailable [phone] Encounter Details Date Type Department Care Team (Late st Contact Info) Description 07/27/2023 MyC Medical Advice [facility] [address] [place] [phone] Jacob Carmona MD [address] [place] [address] Social History Tobacco Use Types Packs/Day Years [...] How often do you attend chur or uatsdin services? 1 to 4 times per year 01/19/2023 Do you belong to any clubs o r organizations such as synagogue groups, unions, fraternal or athletic groups, or [...] Answer Date Recorded PHQ-2 Score 0 11/19/2022 [facility] - Occupational Stress Questionnaire Answer [...] exercise at this level? 10 min 01/19/2023 [place] Depression Scale Answer Date Recorded [place] Depression Score 2 09/21/2019 Last EPDS Self [...] in an abandoned building, in an overnight correction, or couch-surfing.) Yes 04/28/2023 Are you worried [...] Telephone Encounter - Pamella Chapman RN - 07/28/2023 8:29 AM CST Please address the my chart message. Pt is requesting to do a self collect swab to check for yeast. S. CHRIST Chapman CAL ASSEMBLY documented in this encounter Plan of Treatment Upcoming Encounters Date Type Department Care Team (Late st Contact Info) Description 03/17/2024 9:00 AM CDT Virtual Visit [address] [phone] Chanel Asher PA-C [address] [place], [place] [phone] 03/17/2024 9:45 AM CDT [facility] [address] [facility] [address] [place] [phone] Jacob Carmona MD [address] [place], [place] [address] documented as of this encounter Visit Diagnoses Not on filedocumented in this encounter Additional Health Concerns Assessment Noted Time PHQ-9 Depression Total Score: 0 11/20/19 10:04 AM CDT documented as of this encounter Care Teams Screed Operator Relationship Specialty Start Date End Date Lisa Wright PA-C [address] [place] [phone] PCP - General Family Medicine 01/19/23 Jacob Carmona MD [address] [place], [place] [id number] Assigned OBGYN Provider 05/18/20 Curtis Núñez MD [address] [place] [address] 276 [place] [address] Assigned Pulmonology Provider 09/13/22 Lisa Wright PA-C [address] [place] [phone] Assigned PCP 01/24/23 documented as of this encounter
--- OUTSIDE RECORDS SUMMARY | 2024-03-15 08:45 | XMS_ITS | Encounter Summary ---
Author Organization [place] Address [address] [place] [address]. [place] [address] Care Team Providers Care Box Toe Cementer Name Role Phone Jacob Carmona MD Unavailable DeedeeAnnalisa dean APRN OIL SEAL ASSEMBLER Unavailable Un available Jacob Carmona MD Primary Care Provider Leonor Burgos MD Unavailable + [facility] Primary Care Provider Annalisa Mark APRN OIL SEAL ASSEMBLER Unavailable Un available Curtis Núñez MD Unavailable [phone] Leonor Burgos MD Unavailable + DeedeeAnnalisa dean APRN OIL SEAL ASSEMBLER Unavailable Un available Lisa Wright PA-C Primary Care Provider [phone] Lisa Wright PA-C Unavailable [phone] Encounter Details Date Type Department Care Team (Late st Contact Info) Description 07/09/2022 [facility] Clement Herbert [address] [place] [address] Jacob Carmona MD [facility] [place] [address] Social History Tobacco Use Types Packs/Day Years [...] week 10/16/2021 How often do you attend [facility] or jewish services? Patient declined 10/16/2021 Do you belong to any clubs o r organizations such as yazidism groups, unions, fraternal [...] Answer Date Recorded PHQ-2 Score 0 07/03/2022 [facility] [place] of Occupat ional Health - Occupational Stress [...] slept in a senior care (including now)? No 10/16/2021 [place] Depression Scale Answer Date Recorded [place] Depression Score 2 09/21/2019 Last EPDS Self [...] Coronavirus/COVID-19? No / Unsure 07/03/2022 10:04 AM LEVEL VIAL CURVATURE GAUGER documented as of this encounter Miscellaneous Notes * Telephone Encounter - Pamela Velazquez RN - 07/09/2022 3:23 PM CST Please see my chart message. Pamela Velazquez, RN L VIAL CURVATURE GAUGER documented in this encounter Plan of Treatment Upcoming Encounters Date Type Department Care Team (Late st Contact Info) Description 03/17/2024 9:00 AM CDT Virtual Visit [facility] [address] [place] [phone] Chanel Asher PA-C [id number] [place] [address] 03/17/2024 9:45 AM CDT Office Visit [facility] [address] [facility] [address] [place] [address] Jacob Carmona MD [address] [place] [address] documented as of this encounter Visit Diagnoses Not on filedocumented in this encounter Additional Health Concerns Infection Onset Date Last Indicated Resolved Time Rule Out C-difficile 09/10/2022 09/10/2022 023 5:27 PM LEVEL VIAL CURVATURE GAUGER C-difficile 09/10/2022 09/10/2022 10/10/2022 11:3 9 PM CDT Assessment Noted Time PHQ-9 Depression Total Score: 1 04/08/20 22 4:38 PM CDT documented as of this encounter Care Teams Box Toe Cementer Relationship Specialty Start Date End Date Jacob Carmona MD [address] [place] [address] PCP - General 06/30/22 08/28/22 [facility] [address] [place] [address] PCP - General 08/29/22 01/18/23 Lisa Wright PA-C [address] [place] [phone] PCP - General Family Medicine 01/19/23 Jacob Carmona MD [address] [place] [address] Assigned OBGYN Provider 05/18/20 Annalisa Mark APRN OIL SEAL ASSEMBLER Assigned PCP 05/17/22 08/15/22 Leonor Burgos MD PRIMARY ENT [address] [facility] [address] [place], [place] [address] Assigned PCP 08/16/22 08/29/22 Annalisa Mark APRN OIL SEAL ASSEMBLER [address] [place] [address] Assigned PCP 08/30/22 11/21/22 Curtis Núñez MD [address] [facility] [address] [facility] 276 [place] [address] Assigned Pulmonology Provider 09/13/22 Leonor Burgos MD [facility] [address] [facility] [address] [place] [address] Assigned PCP 11/22/22 11/28/22 Annalisa Mark APRN OIL SEAL ASSEMBLER Assigned PCP 11/29/22 01/23/23 Lisa Wright PA-C [address] [place] [phone] Assigned PCP 01/24/23 documented as of this encounter
--- OUTSIDE RECORDS SUMMARY | 2024-03-15 08:45 | XMS_ITS | Encounter Summary ---
Author Organization [facility] Address [address] [place] [address]. [place] [address] Care Team Providers Care Aqua Ammonia Operator Name Role Phone Jacob Carmona MD Unavailable [phone] [facility] Primary Care Provider Curtis Núñez MD Unavailable Leonor Burgos MD Unavailable + Annalisa Mark APRN INDUSTRIAL DIAMOND POLISHER Unavailable Un available Lisa Wright PA-C Primary Care Provider Lisa Wright PA-C Unavailable [phone] Reason for Visit * Reason Onset Date Comments Breast Problem 11/25/2022 Encounter Details Date Type Department Care Team (Late st Contact Info) Description 11/25/2022 MyC Medical Advice [facility] [place] [address] [place] [address] Jacob Carmona MD [address] [place] [address] Breast Problem Social History Tobacco Use Types Packs/Day Years [...] week 10/16/2021 How often do you attend [facility] or moravian services? Patient declined 10/16/2021 Do you belong [...] Answer Date Recorded PHQ-2 Score 0 11/19/2022 [employer] of Occupat ional Health - Occupational Stress [...] or slept in a alf (including now)? No 10/16/2021 [place] Depression Scale Answer Date Recorded [place] Depression Score 2 09/21/2019 Last EPDS Self [...] AM CDT documented as of this encounter Miscellaneous Notes * Telephone Encounter - Belén Monroe RN - 11/26/2022 8:10 AM CDT Pt advised via Ardely[employer]. CHRIST Melissa documented in this encounter Plan of Treatment Upcoming Encounters Date Type Department Care Team (Late st Contact Info) Description 03/17/2024 9:00 AM CDT Virtual Visit [facility] [address] [place] [phone] Chanel Asher PA-C [address] [place], [place] [phone] 03/17/2024 9:45 AM CDT Office Visit [facility] [address] [facility] [address] [place] [phone] Jacob Carmona MD [address] [place], [place] [phone] documented as of this encounter Visit Diagnoses Not on filedocumented in this encounter Additional Health Concerns Assessment Noted Time PHQ-9 Depression Total Score: 0 11/20/19 10:04 AM CDT documented as of this encounter Care Teams Aqua Ammonia Operator Relationship Specialty Start Date End Date Clinic - [facility] [address] [place], [place] [phone] PCP - General 08/29/22 01/18/23 Lisa Wright PA-C [id number] [place] [phone] PCP - General Family Medicine 01/19/23 Jacob Carmona MD [address] [place], [place] [phone] Assigned OBGYN Provider 05/18/20 Curtis Núñez MD [address] [place] [address] [address] [place], [place] [address] Assigned Pulmonology Provider 09/13/22 Leonor Burgos MD PRIMARY ENT [address] [place] [address] Assigned PCP 11/22/22 11/28/22 Annalisa Mark APRN INDUSTRIAL DIAMOND POLISHER Assigned PCP 11/29/22 01/23/23 Lisa Wright PA-C [address] [place] [phone] Assigned PCP 01/24/23 documented as of this encounter
--- OUTSIDE RECORDS SUMMARY | 2024-03-15 08:45 | XMS_ITS | Encounter Summary ---
Author Organization [facility] Address [address] [place] [address]. [place] [address] Care Team Providers Care Harness Brusher Name Role Phone Jacob Carmona MD Unavailable [phone] DeedeeAnnalisa dean APRN CATHODE MAKER Unavailable Un available Jacob Carmona MD Primary Care Provider Leonor Burgos MD Unavailable + [facility] Primary Care Provider Annalisa Mark APRN CATHODE MAKER Unavailable Un available Curtis Núñez MD Unavailable [phone] Leonor Burgos MD Unavailable + DeedeeAnnalisa dean APRN CATHODE MAKER Unavailable Un available Lisa Wright PA-C Primary Care Provider [phone] Lisa Wright PA-C Unavailable [phone] Encounter Details Date Type Department Care Team (Late st Contact Info) Description 07/06/2022 Anne Marie Herbert [address] [place] [address] Jacob Carmona MD [facility] [place] [address] Social History Tobacco Use Types Packs/Day Years [...] week 10/16/2021 How often do you attend [facility] or yarsanism services? Patient declined 10/16/2021 Do you belong to any clubs o r organizations such as religion groups, unions, fraternal [...] Answer Date Recorded PHQ-2 Score 0 07/03/2022 [facility] [place] of Occupat ional Health - Occupational Stress [...] in a alf (including now)? No 10/16/2021 [place] Depression Scale Answer Date Recorded [place] Depression Score 2 09/21/2019 Last EPDS Self [...] Coronavirus/COVID-19? No / Unsure 07/03/2022 10:04 AM GAMEROOM TECHNICIAN documented as of this encounter Plan of Treatment Upcoming Encounters Date Type Department Care Team (Late st Contact Info) Description 03/17/2024 9:00 AM CDT Virtual Visit [address] [place] [address] Chanel Asher PA-C [id number] [place] [id number] 03/17/2024 9:45 AM CDT Office [facility] [address] [facility] [address] [place] [phone] Jacob Carmona MD [address] [place] [address] documented as of this encounter Visit Diagnoses Not on filedocumented in this encounter Additional Health Concerns Infection Onset Date Last Indicated Resolved Time Rule Out C-difficile 09/10/2022 09/10/2022 023 5:27 PM GAMEROOM TECHNICIAN C-difficile 09/10/2022 09/10/2022 10/10/2022 11:3 9 PM CDT Assessment Noted Time PHQ-9 Depression Total Score: 1 04/08/20 22 4:38 PM CDT documented as of this encounter Care Teams Harness Brusher Relationship Specialty Start Date End Date Jacob Carmona MD [address] [place] [address] PCP - General 06/30/22 08/28/22 Clinic - [facility] [id number] [place] [phone] PCP - General 08/29/22 01/18/23 Lisa Wright PA-C [id number] [place] [phone] PCP - General Family Medicine 01/19/23 Jacob Carmona MD [address] [place] [address] Assigned OBGYN Provider 05/18/20 Annalisa Mark APRN CATHODE MAKER Assigned PCP 05/17/22 08/15/22 Leonor Burgos MD [facility] [address] [place], [place] [address] Assigned PCP 08/16/22 08/29/22 Annalisa Mark APRN CATHODE MAKER [address] [place] [address] Assigned PCP 08/30/22 11/21/22 Curtis Núñez MD [address] [facility] 276 [place] [address] Assigned Pulmonology Provider 09/13/22 Leonor Burgos MD PRIMARY ENT [address] [facility] [address] [place] [address] Assigned PCP 11/22/22 11/28/22 Annalisa Mark APRN CATHODE MAKER Assigned PCP 11/29/22 01/23/23 Lisa Wright PA-C [address] [place] [address] Assigned PCP 01/24/23 documented as of this encounter
--- OUTSIDE RECORDS SUMMARY | 2024-03-15 08:45 | XMS_ITS | Encounter Summary ---
Author Organization [facility] Address [address] [place] [address]. [place] [address] Care Team Providers Care Partner Name Role Phone Annalisa Mark APRN, CNP Primary Care Provi miguel Unavailable Jacob Carmona MD Unavailable [phone] Annalisa Mark APRN, CNP Unavailable Un available Jacob Carmona MD Primary Care Provider Leonor Burgos MD Unavailable + [facility] Primary Care Provider Annalisa Mark APRN ASSEMBLER METAL BUILDING Unavailable Un available Curtis Núñez MD Unavailable [phone] Leonor Burgos MD Unavailable + Annalisa Mark APRN, CNP Unavailable Un available Lisa Wright PA-C Primary Care Provider [phone] Lisa Wright PA-C Unavailable [phone] Reason for Visit * Reason Onset Date Comments Vaginal Problem 06/06/2022 Ultrasound 06/06/2022 Encounter Details Date Type Department Care Team (Late st Contact Info) Description 06/06/2022 [facility] [address] [place] [address] Jacob Carmona MD [address] [place] [address] Vaginal Problem; Ultrasound Social History Tobacco Use Types Packs/Day Years [...] week 10/16/2021 How often do you attend [facility] or gnosticism services? Patient declined 10/16/2021 Do you belong to any clubs o r organizations such as scientology groups, unions, fraternal [...] Answer Date Recorded PHQ-2 Score 0 04/08/2022 [facility] [place] of Occupat ional Health - Occupational Stress [...] or slept in a usp (including now)? No 10/16/2021 [place] Depression Scale Answer Date Recorded [place] Depression Score 2 09/21/2019 Last EPDS Self [...] suspected to have Coronavirus/COVID-19? No / Unsure 05/22/2022 10:01 AM CDT documented as of this encounter Miscellaneous Notes * Telephone Encounter - Mary Lou Ptety RN - 06/12/2022 4:41 PM CST Please see mychart. Pelvic US pended below to sign if ok. Mary Lou Petty RN ICAL CHEMISTRY PROFESSOR documented in this encounter Plan of Treatment Upcoming Encounters Date Type Department Care Team (Late st Contact Info) Description 03/17/2024 9:00 AM CDT Virtual Visit [facility] [address] [place] [phone] Chanel Asher PA-C [id number] [place] [address] 03/17/2024 9:45 AM CDT Office [facility] [address] [place] [address] [address] [place] [address] Jacob Carmona MD [address] [place], [place] [phone] documented as of this encounter Visit Diagnoses Not on filedocumented in this encounter Additional Health Concerns Infection Onset Date Last Indicated Resolved Time Rule Out C-difficile 09/10/2022 09/10/2022 023 5:27 PM PHYSICAL CHEMISTRY PROFESSOR C-difficile 09/10/2022 09/10/2022 10/10/2022 11:3 9 PM CDT Assessment Noted Time PHQ-9 Depression Total Score: 1 04/08/20 22 4:38 PM CDT documented as of this encounter Care Teams Partner Relationship Specialty Start Date End Date Annalisa Mark APRN ASSEMBLER METAL BUILDING PCP - General Nurse Practitioner 03/22/15 06/29/22 Jacob Carmona MD [address] [place], [place] [address] PCP - General 06/30/22 08/28/22 Clinic - [facility] [address] [place], [place] [phone] PCP - General 08/29/22 01/18/23 Lisa Wright PA-C [address] [place] [phone] PCP - General Family Medicine 01/19/23 Jacob Carmona MD [address] [place] [address] Assigned OBGYN Provider 05/18/20 Annalisa Mark APRN ASSEMBLER METAL BUILDING Assigned PCP 05/17/22 08/15/22 Leonor Burgos MD PR[facility] [address] [place], [place] [address] Assigned PCP 08/16/22 08/29/22 Annalisa Mark APRN ASSEMBLER METAL BUILDING [address] [place] [address] Assigned PCP 08/30/22 11/21/22 Curtis Núñez MD [address] [place] [address] 276 [place] [address] Assigned Pulmonology Provider 09/13/22 Leonor Burgos MD PRIMARY ENT [address] [facility] [address] [place] [address] Assigned PCP 11/22/22 11/28/22 Annalisa Mark APRN ASSEMBLER METAL BUILDING Assigned PCP 11/29/22 01/23/23 Lisa Wright PA-C [address] [place] [phone] Assigned PCP 01/24/23 documented as of this encounter
--- OUTSIDE RECORDS SUMMARY | 2024-03-15 08:45 | XMS_ITS | Encounter Summary ---
Author Organization [facility] Address [address] [place] [address]. [place] [address] Care Team Providers Care Terminal Operations Supervisor Name Role Phone Jacob Carmona MD Unavailable Curtis Núñez MD Unavailable Lisa Wright PA-C Primary Care Provider [phone] Lisa Wright PA-C Unavailable [phone] Reason for Visit * Reason Onset Date Comments Pt. Information/instruction 06/28/2023 Encounter Details Date Type Department Care Team (Late st Contact Info) Description 06/28/2023 MyC Medical Advice [facility] [address] [place] [address] [place] [phone] Jacob Carmona MD [address] [place] [address] Pt. Information/instruc tion Social History Tobacco Use Types Packs/Day Years [...] How often do you attend chur or islam services? 1 to 4 times per year 01/19/2023 Do you belong to any clubs o r organizations such as mormon groups, unions, fraternal [...] Answer Date Recorded PHQ-2 Score 0 11/19/2022 [facility] of Occupat ional Health - [...] exercise at this level? 10 min 01/19/2023 [place] Depression Scale Answer Date Recorded [place] Depression Score 2 09/21/2019 Last EPDS Self [...] in an abandoned building, in an overnight detention, or couch-surfing.) Yes 04/28/2023 Are you worried [...] Description 03/17/2024 9:00 AM CDT Virtual Visit [facility] [address] [place] [phone] Chanel Asher PA-C [id number] [place] [address] 03/17/2024 9:45 AM CDT Office Visit [facility] [address] [facility] [address] [place] [phone] Jacob Carmona MD [address] [place] [address] documented as of this encounter Visit Diagnoses Not on filedocumented in this encounter Additional Health Concerns Assessment Noted Time PHQ-9 Depression Total Score: 0 11/20/19 10:04 AM CDT documented as of this encounter Care Teams Terminal Operations Supervisor Relationship Specialty Start Date End Date Lisa Wright PA-C [address] [place] [phone] PCP - General Family Medicine 01/19/23 Jacob Carmona MD [address] [place] [address] Assigned OBGYN Provider 05/18/20 Curtis Núñez MD [address] [facility] 276 [place] [address] Assigned Pulmonology Provider 09/13/22 Lisa Wright PA-C [address] [place] [phone] Assigned PCP 01/24/23 documented as of this encounter
--- OUTSIDE RECORDS SUMMARY | 2024-03-15 08:45 | XMS_ITS | Encounter Summary ---
Author Organization [facility] Address [address] [place] [address]. [place] [address] Care Team Providers Care Licensed Practical Nurse Clinic Nurse Name Role Phone Jacob Carmona MD Unavailable [facility] Primary Care Provider Curtis Núñez MD Unavailable Annalisa Mark APRN WOOL BUYER Unavailable Un available Lisa Wright PA-C Primary Care Provider Lisa Wright PA-C Unavailable [phone] Encounter Details Date Type Department Care Team (Late st Contact Info) Description 01/02/2023 MyC Medical Advice [facility] [address] [place] [phone] Roes Proctor PA-C [address] [place] [address] Social History Tobacco Use Types Packs/Day [...] week 10/16/2021 How often do you attend chur or quaker services? Patient declined 10/16/2021 Do you belong to any clubs o r organizations such as taoism groups, unions, fraternal [...] Answer Date Recorded PHQ-2 Score 0 11/19/2022 [facility] of Occupat ional Health - [...] in a alf (including now)? No 10/16/2021 [place] Depression Scale Answer Date Recorded [place] Depression Score 2 09/21/2019 Last EPDS Self [...] suspected to have Coronavirus/COVID-19? No / Unsure 12/29/2022 11:11 AM CDT documented as of this encounter Plan of Treatment Upcoming Encounters Date Type Department Care Team (Late st Contact Info) Description 03/17/2024 9:00 AM CDT Virtual Visit [facility] [address] [place] [phone] Chanel Asher PA-C [id number] [place] [address] 03/17/2024 9:45 AM CDT Office Visit [place] [address] [facility] [address] [place] [address] Jacob Carmona MD [address] [place] [address] documented as of this encounter Visit Diagnoses Not on filedocumented in this encounter Additional Health Concerns Assessment Noted Time PHQ-9 Depression Total Score: 0 11/20/19 10:04 AM CDT documented as of this encounter Care Teams Licensed Practical Nurse Clinic Nurse Relationship Specialty Start Date End Date Clinic - [facility] [address] [place], [place] [phone] PCP - General 08/29/22 01/18/23 Lisa Wright PA-C [address] [place] [phone] PCP - General Family Medicine 01/19/23 Jacob Carmona MD [address] [place] [address] Assigned OBGYN Provider 05/18/20 Curtis Núñez MD [address] [place] [address] 276 [place], [place] [address] Assigned Pulmonology Provider 09/13/22 Annalisa Mark APRN WOOL BUYER Assigned PCP 11/29/22 01/23/23 Lisa Wright PA-C [id number] [place] [phone] Assigned PCP 01/24/23 documented as of this encounter
--- OUTSIDE RECORDS SUMMARY | 2024-03-15 08:45 | XMS_ITS | Encounter Summary ---
Author Organization [facility] Address [address] [place] [address]. [place] [address] Care Team Providers Care Self Pay Collector Name Role Phone DeedeeAnnalisa dean APRN, CNP Primary Care Provi miguel Unavailable DeedeeAnnalisa dean APRN, CNP Unavailable Un available SabJacob sylvester MD Unavailable [phone] Leonor Burgos MD Unavailable + DeedeeAnnalisa APRN, CNP Unavailable Un available Jacob Carmona MD Primary Care Provider Leonor Burgos MD Unavailable + [facility] Primary Care Provider Annalisa Mark APRN, CNP Unavailable Un available Curtis Núñez MD Unavailable [phone] Leonor Burgos MD Unavailable + Annalisa Mark APRN, CNP Unavailable Un available Lisa Wright PA-C Primary Care Provider Lisa Wright PA-C Unavailable [phone] Reason for Visit * Reason Onset Date Comments MyChart Communication 02/20/2022 Encounter Details Date Type Department Care Team (Latest Contact Info) Description 02/20/2022 MyC Medical Advice [address] [address] Leonor Burgos MD PRIMARY ENT [address] [place] [id number] MyChart Communication Social History Tobacco Use Types Packs/Day Years [...] week 10/16/2021 [facility] you attend [facility] or hoahaoism services? Patient declined 10/16/2021 Do you belong to any clubs o r organizations such as mosque groups, unions, fraternal [...] PHQ-2 Answer Date Recorded PHQ-2 Score 0 11/08/2021 [facility] [place] of Occupat ional Health - Occupational Stress [...] in a alf (including now)? No 10/16/2021 [place] Depression Scale Answer Date Recorded [place] Depression Score 2 09/21/2019 Last EPDS Self [...] suspected to have Coronavirus/COVID-19? No / Unsure 02/20/2022 12:21 PM CDT documented as of this encounter Plan of Treatment Upcoming Encounters Date Type Department Care Team (Late st Contact Info) Description 03/17/2024 9:00 AM CDT Virtual Visit [facility] [address] [place] [phone] Chanel Asher PA-C [address] [place] [address] 03/17/2024 9:45 AM CDT Office Visit [facility] [address] [facility] [address] [place] [address] Jacob Carmona MD [address] [place], [place] [address] documented as of this encounter Visit Diagnoses Not on filedocumented in this encounter Additional Health Concerns Infection Onset Date Last Indicated Resolved Time Rule Out C-difficile 02/26/2022 02/26/2022 022 1:52 PM CDT C-difficile 02/26/2022 02/26/2022 03/28/2022 11:4 1 PM CDT Rule Out C-difficile 09/10/2022 09/10/2022 023 5:27 PM PRIVATE MORTGAGE BANKER SAFE C-difficile 09/10/2022 09/10/2022 10/10/2022 11:3 9 PM CDT Assessment Noted Time PHQ-9 Depression Total Score: 4 10/18/19 22 10:05 AM CDT documented as of this encounter Care Teams Self Pay Collector Relationship Specialty Start Date End Date Annalisa Mark APRN COIL STRAPPER PCP - General Nurse Practitioner 03/22/15 06/29/22 Jacob Carmona MD [address] [place] [address] [place] [address] PCP - General 06/30/22 08/28/22 [facility] [address] [place] [address] PCP - General 08/29/22 01/18/23 Lisa Wright PA-C [address] [place] [phone] PCP - General Family Medicine 01/19/23 Annalisa Mark APRN COIL STRAPPER Assigned PCP 01/22/20 02/21/22 Jacob Caromna MD [address] [place] [address] Assigned OBGYN Provider 05/18/20 Leonor Burgos MD [facility] [address] [facility] [address] [place], [place] [address] Assigned PCP 02/22/22 05/16/22 Annalisa Mark APRN COIL STRAPPER Assigned PCP 05/17/22 08/15/22 Leonor Burgos MD PRIMARY ENT [address] [facility] [address] [place] [address] Assigned PCP 08/16/22 08/29/22 Annalisa Mark APRN COIL STRAPPER [address] [place] [address] Assigned PCP 08/30/22 11/21/22 Curtis Núñez MD [address] [place] [address] 276 [place] [address] Assigned Pulmonology Provider 09/13/22 Leonor Burgos MD PRIMARY ENT [address] [place] [address] Assigned PCP 11/22/22 11/28/22 Annalisa Mark APRN COIL STRAPPER Assigned PCP 11/29/22 01/23/23 Lisa Wright PA-C [address] [facility] [place] [phone] Assigned PCP 01/24/23 documented as of this encounter
--- OUTSIDE RECORDS SUMMARY | 2024-03-15 08:45 | XMS_ITS | Encounter Summary ---
Author Organization [place] Address [address] [place] [address]. [place] [address] Care Team Providers Care Beauty Specialist Name Role Phone Jacob Carmona MD Unavailable [facility] Primary Care Provider Annalisa Mark APRN CHARTER BUS DRIVER Unavailable Un available Curtis Núñez MD Unavailable [phone] Leonor Burgos MD Unavailable + DeedeeAnnalisa dean APRN CHARTER BUS DRIVER Unavailable Un available Lisa Wright PA-C Primary Care Provider Lisa Wright PA-C Unavailable [phone] Encounter Details Date Type Department Care Team (Late st Contact Info) Description 11/04/[address] [facility] [address] [place] [address] Jacob Carmona MD [address] [place] [address] Social History Tobacco Use Types Packs/Day Years [...] week 10/16/2021 How often do you attend [facility] or temple services? Patient declined 10/16/2021 Do you belong to any clubs o r organizations such as yarsanism groups, unions, fraternal [...] Answer Date Recorded PHQ-2 Score 0 07/03/2022 [facility] - Occupational [...] or slept in a snf (including now)? No 10/16/2021 [place] Depression Scale Answer Date Recorded [place] Depression Score 2 09/21/2019 Last EPDS Self [...] suspected to have Coronavirus/COVID-19? No / Unsure 11/04/2022 3:13 PM CDT documented as of this encounter Miscellaneous Notes * Telephone Encounter - Jojo Anguiano Terrence - 11/04/2022 3:14 PM CDT Reason for Call: Appointment Request Patient requesting this type of appt: Office visit for continued bleeding in between periods & a new area of breast pain, on right side, small lump Requested provider: Jacob Carmona MD Reason patient unable to be scheduled: Not within requested timeframe When does patient want to be seen/preferred time: maco - pt is scheduled for 12/04/22, as that was soonest available with Dr. Carmona but pt is wondering if she can be seen sooner Comments: PT is very nervous about this new area of breast pain. States it is shooting pain on the right side. Is new since her last appointment with him in early August. Could we send this information to you in coUrbanize or would you prefer to receive a phone call?: Patient would like to be contacted via coUrbanize Call taken on 11/04/2022 at 3:14 PM by Jojo Anguiano documented in this encounter Plan of Treatment Upcoming Encounters Date Type Department Care Team (Late st Contact Info) Description 03/17/2024 9:00 AM CDT Virtual Visit [address] [phone] Chanel Asher PA-C [id number] [place] [address] 03/17/2024 9:45 AM CDT Office Visit [address] [place] [address] Jacob Carmona MD [address] [place] [address] documented as of this encounter Visit Diagnoses Not on filedocumented in this encounter Additional Health Concerns Assessment Noted Time PHQ-9 Depression Total Score: 1 04/08/20 22 4:38 PM CDT documented as of this encounter Care Teams Beauty Specialist Relationship Specialty Start Date End Date Clinic - [facility] [id number] [place] [address] [id number] PCP - General 08/29/22 01/18/23 Lisa Wright PA-C [address] [place] [address] PCP - General Family Medicine 01/19/23 Jacob Carmona MD [address] [place] [address] Assigned OBGYN Provider 05/18/20 Annalisa Mark APRN CHARTER BUS DRIVER [address] [place] [address] Assigned PCP 08/30/22 11/21/22 Curtis Núñez MD [address] [facility] [address] [place] [address] Assigned Pulmonology Provider 09/13/22 Leonor Burgos MD [facility] [address] [place] [address] Assigned PCP 11/22/22 11/28/22 Annalisa Mark APRN CHARTER BUS DRIVER Assigned PCP 11/29/22 01/23/23 Lisa Wright PA-C [address] [place] [phone] Assigned PCP 01/24/23 documented as of this encounter
--- OUTSIDE RECORDS SUMMARY | 2024-03-15 08:45 | XMS_ITS | Encounter Summary ---
Author Organization [facility] Address [address] [place] [address]. [place] [address] Care Team Providers Care Professor Of Geography Name Role Phone Annalisa Mark APRN, CNP Primary Care Provi miguel Unavailable Jacob Carmona MD Unavailable [phone] Annalisa Mark APRN, CNP Unavailable Un available Jacob Carmona MD Primary Care Provider Leonor Burgos MD Unavailable + [facility] Primary Care Provider Annalisa Mark APRN EMPLOYEE BENEFITS ATTORNEY Unavailable Un available Curtis Núñez MD Unavailable [phone] Leonor Burgos MD Unavailable + Annalisa Mark APRN, CNP Unavailable Un available Lisa Wright PA-C Primary Care Provider [phone] Lisa Wright PA-C Unavailable [phone] Reason for Visit * Reason Onset Date Comments Vaginal Bleeding 05/17/2022 Encounter Details Date Type Department Care Team (Late st Contact Info) Description 05/17/2022 [facility] [address] [place] [address] [place] [address] Jacob Carmona MD [address] [place] [address] Vaginal Bleeding Social History Tobacco Use Types Packs/Day Years [...] 10/16/2021 How often do you attend [facility] or pentecostalism services? Patient declined 10/16/2021 Do [...] Answer Date Recorded PHQ-2 Score 0 04/08/2022 [facility] [place] of Occupat ional Health - Occupational Stress [...] slept in a care home (including now)? No 10/16/2021 [place] Depression Scale Answer Date Recorded [place] Depression Score 2 09/21/2019 Last EPDS Self [...] Telephone Encounter - Pamela Velazquez RN - 05/21/2022 9:35 AM CDT Please see my chart messages regarding BTB on pill. Anything to add? Pamela Velazquez, RN documented in this encounter Plan of Treatment Upcoming Encounters Date Type Department Care Team (Late st Contact Info) Description 03/17/2024 9:00 AM CDT Virtual Visit [facility] [address] [place] [phone] Chanel Asher PA-C [id number] [place] [address] 03/17/2024 9:45 AM CDT Office Visit [facility] [address] [facility] [address] [place] [phone] Jacob Carmona MD [address] [place], [place] [address] documented as of this encounter Visit Diagnoses Not on filedocumented in this encounter Additional Health Concerns Infection Onset Date Last Indicated Resolved Time Rule Out C-difficile 09/10/2022 09/10/2022 023 5:27 PM LARD MIXER C-difficile 09/10/2022 09/10/2022 10/10/2022 11:3 9 PM CDT Assessment Noted Time PHQ-9 Depression Total Score: 1 04/08/20 22 4:38 PM CDT documented as of this encounter Care Teams Professor Of Geography Relationship Specialty Start Date End Date Annalisa Mark APRN EMPLOYEE BENEFITS ATTORNEY PCP - General Nurse Practitioner 03/22/15 06/29/22 Jacob Carmona MD [address] [place], [place] [address] PCP - General 06/30/22 08/28/22 Clinic - [facility] [id number] [place] [address] [id number] PCP - General 08/29/22 01/18/23 Lisa Wright PA-C [address] [place] [phone] PCP - General Family Medicine 01/19/23 Jacob Carmona MD [address] [place], [place] [address] Assigned OBGYN Provider 05/18/20 Annalisa Mark APRN EMPLOYEE BENEFITS ATTORNEY Assigned PCP 05/17/22 08/15/22 Leonor Burgos MD [facility] [address] [place], [place] [id number] Assigned PCP 08/16/22 08/29/22 Annalisa Mark APRN EMPLOYEE BENEFITS ATTORNEY [address] [facility] [address] Assigned PCP 08/30/22 11/21/22 Curtis Núñez MD [address] [place] [address] [address] [place] [address] Assigned Pulmonology Provider 09/13/22 Leonor Burgos MD PR[facility]NT [address] [place] [address] Assigned PCP 11/22/22 11/28/22 Annalisa Mark APRN EMPLOYEE BENEFITS ATTORNEY Assigned PCP 11/29/22 01/23/23 Lisa Wright PA-C [address] [place] [phone] Assigned PCP 01/24/23 documented as of this encounter
--- OUTSIDE RECORDS SUMMARY | 2024-03-15 08:45 | XMS_ITS | Encounter Summary ---
Author Organization [facility] Address [address] [place] [address]. [place] [address] Care Team Providers Care Technical Staff Assistant Name Role Phone Jacob Carmona MD Unavailable DeedeeAnnalisa dean APRN SINGE WINDER Unavailable Un available Jcaob Carmona MD Primary Care Provider Leonor Burgos MD Unavailable + [facility] Primary Care Provider Annalisa Mark APRN SINGE WINDER Unavailable Un available Curtis Núñez MD Unavailable [phone] Leonor Burgos MD Unavailable + DeedeeAnnalisa dean APRN SINGE WINDER Unavailable Un available Lisa Wright PA-C Primary Care Provider [phone] Lisa Wright PA-C Unavailable [phone] Encounter Details Date Type Department Care Team (Late st Contact Info) Description 06/30/2022 [place] Herbert [address] [place] [address] Jacob Carmona MD [facility] [place] [address] Social History Tobacco Use Types Packs/Day Years [...] week 10/16/2021 How often do you attend [facility] or taoism services? Patient declined 10/16/2021 Do you belong to any clubs o r organizations such as baptism groups, unions, fraternal [...] Answer Date Recorded PHQ-2 Score 0 07/03/2022 [facility] [place] of Occupat ional Health - Occupational Stress [...] a long term (including now)? No 10/16/2021 [place] Depression Scale Answer Date Recorded [place] Depression Score 2 09/21/2019 Last EPDS Self [...] Coronavirus/COVID-19? No / Unsure 07/03/2022 10:04 AM MARBLE AND GRANITE POLISHER documented as of this encounter Plan of Treatment Upcoming Encounters Date Type Department Care Team (Late st Contact Info) Description 03/17/2024 9:00 AM CDT Virtual Visit [address] [place] [phone] Chanel Asher PA-C [phone] [place] [address] [phone] 03/17/2024 9:45 AM CDT Office Visit [facility] [address] [facility] [address] [place] [phone] Jacob Carmona MD [address] [place] [address] documented as of this encounter Visit Diagnoses Not on filedocumented in this encounter Additional Health Concerns Infection Onset Date Last Indicated Resolved Time Rule Out C-difficile 09/10/2022 09/10/2022 023 5:27 PM MARBLE AND GRANITE POLISHER C-difficile 09/10/2022 09/10/2022 10/10/2022 11:3 9 PM CDT Assessment Noted Time PHQ-9 Depression Total Score: 1 04/08/20 22 4:38 PM CDT documented as of this encounter Care Teams Technical Staff Assistant Relationship Specialty Start Date End Date Jacob Carmona MD [address] [place] [address] PCP - General 06/30/22 08/28/22 Clinic - [facility] [id number] [place] [address] [phone] PCP - General 08/29/22 01/18/23 Lisa Wright PA-C [id number] [place] [phone] PCP - General Family Medicine 01/19/23 Jacob Carmona MD [address] [place] [address] Assigned OBGYN Provider 05/18/20 Annalisa Mark APRN SINGE WINDER Assigned PCP 05/17/22 08/15/22 Leonor Burgos MD [facility] [address] [place], [place] [address] Assigned PCP 08/16/22 08/29/22 Annalisa Mark APRN SINGE WINDER [address] [facility] [place] [address] Assigned PCP 08/30/22 11/21/22 Curtis Núñez MD [address] [facility] 276 [place] [address] Assigned Pulmonology Provider 09/13/22 Leonor Burgos MD [facility] [address] [facility] [address] [place] [address] Assigned PCP 11/22/22 11/28/22 Annalisa Mark APRN SINGE WINDER Assigned PCP 11/29/22 01/23/23 Lisa Wright PA-C [address] [place] [address] Assigned PCP 01/24/23 documented as of this encounter
--- OUTSIDE RECORDS SUMMARY | 2024-03-15 08:45 | XMS_ITS | Encounter Summary ---
Author Organization [facility] Address [address] [place] [address]. [place] [address] Care Team Providers Care Lap Machine Operator Name Role Phone Annalisa Mark APRN, CNP Primary Care Provi miguel Unavailable Jacob Carmona MD Unavailable [phone] Annalisa Mark APRN, CNP Unavailable Un available Jacob Carmona MD Primary Care Provider Leonor Burgos MD Unavailable + [facility] Primary Care Provider Annalisa Mark APRN MOTION PICTURE PROJECTIONIST Unavailable Un available Curtis Núñez MD Unavailable [phone] Leonor Burgos MD Unavailable + Annalisa Mark APRN, CNP Unavailable Un available Lisa Wright PA-C Primary Care Provider [phone] Lisa Wright PA-C Unavailable [phone] Reason for Visit * Reason Onset Date Comments Results 06/17/2022 Encounter Details Date Type Department Care Team (Late st Contact Info) Description 06/17/2022 My[facility] Medical Advice [address] [place] [phone] Jacob Carmona MD [address] [place] [address] Results Social History Tobacco Use Types Packs/Day Years [...] week 10/16/2021 How often do you attend [facility] or tenriism services? Patient declined 10/16/2021 Do you belong to any clubs o r organizations such as gnosticism groups, unions, fraternal [...] Answer Date Recorded PHQ-2 Score 0 04/08/2022 [facility] of Occupat ional Health - Occupational Stress [...] or slept in a chcf (including now)? No 10/16/2021 [place] Depression Scale Answer Date Recorded [place] Depression Score 2 09/21/2019 Last EPDS Self [...] suspected to have Coronavirus/COVID-19? No / Unsure 06/17/2022 9:46 AM WARES SORTER documented as of this encounter Miscellaneous Notes * Telephone Encounter - Tom, Casie M, RN - 06/23/2022 8:[address] order for procedure when you are able. Pt states something to remove my polyp and I would be put out. Casie Escobedo CHANNEL BUSINESS MANAGER S SORTER documented in this encounter Plan of Treatment Upcoming Encounters Date Type Department Care Team (Late st Contact Info) Description 03/17/2024 9:00 AM CDT Virtual Visit [facility] [address] [place] [phone] Chanel Asher PA-C [id number] [place] [address] [phone] 03/17/2024 9:45 AM CDT Office Visit [facility] [address] [facility] [address] [place] [address] Jacob Carmona MD [address] [place], [place] [phone] documented as of this encounter Visit Diagnoses Not on filedocumented in this encounter Additional Health Concerns Infection Onset Date Last Indicated Resolved Time Rule Out C-difficile 09/10/2022 09/10/2022 023 5:27 PM WARES SORTER C-difficile 09/10/2022 09/10/2022 10/10/2022 11:3 9 PM CDT Assessment Noted Time PHQ-9 Depression Total Score: 1 04/08/20 22 4:38 PM CDT documented as of this encounter Care Teams Lap Machine Operator Relationship Specialty Start Date End Date Annalisa Mark APRN MOTION PICTURE PROJECTIONIST PCP - General Nurse Practitioner 03/22/15 06/29/22 Jacob Carmona MD [address] [place] [place], [place] [address] PCP - General 06/30/22 08/28/22 Clinic - [facility] [address] [place], [place] [phone] PCP - General 08/29/22 01/18/23 Lisa Wright PA-C [address] [place] [address] PCP - General Family Medicine 01/19/23 Jacob Carmona MD [address] [place] [address] Assigned OBGYN Provider 05/18/20 Annalisa Mark APRN MOTION PICTURE PROJECTIONIST Assigned PCP 05/17/22 08/15/22 Leonor Burgos MD [facility] [address] [place] [address] Assigned PCP 08/16/22 08/29/22 Annalisa Mark APRN MOTION PICTURE PROJECTIONIST [address] [place] [address] Assigned PCP 08/30/22 11/21/22 Curtis Núñez MD [address] [place] [address] 276 [place] [address] Assigned Pulmonology Provider 09/13/22 Leonor Burgos MD PR[facility] [address] [place] [address] Assigned PCP 11/22/22 11/28/22 Annalisa Mark APRN MOTION PICTURE PROJECTIONIST Assigned PCP 11/29/22 01/23/23 Lisa Wright PA-C [address] [place] [phone] Assigned PCP 01/24/23 documented as of this encounter
--- OUTSIDE RECORDS SUMMARY | 2024-03-15 08:46 | XMS_ITS | Encounter Summary ---
Author Organization [facility] Address [address] [place] [address]. [place] [address] Care Team Providers Care Tomato Grader Name Role Phone DeedeeAnnalisa dean APRN, CNP Primary Care Provi miguel Unavailable DeedeeAnnalisa dean APRN, CNP Unavailable Un available Jacob Carmona MD Unavailable [phone] Leonor Burgos MD Unavailable + DeedeeAnnalisa APRN, CNP Unavailable Un available Jacob Carmona MD Primary Care Provider Leonor Burgos MD Unavailable + [facility] Primary Care Provider Annalisa Mark APRN, CNP Unavailable Un available Curtis Núñez MD Unavailable [phone] Leonor Burgos MD Unavailable + Annalisa Mark APRN, CNP Unavailable Un available Lisa Wright PA-C Primary Care Provider Lisa Wright PA-C Unavailable [phone] Encounter Details Date Type Department Care Team (Late st Contact Info) Description 01/24/2022 MyC Medical Advice [facility] Deborah [address] [facility] [address] [place] [address] Jacob Carmona MD [address] [place] [address] Social History Tobacco Use Types Packs/Day Years [...] week 10/16/2021 How often do you attend [facility] or catholic services? Patient declined 10/16/2021 Do you belong [...] Answer Date Recorded PHQ-2 Score 0 11/08/2021 [facility] [place] of Occupat ional Health - Occupational Stress [...] or slept in a custodial (including now)? No 10/16/2021 [place] Depression Scale Answer Date Recorded [place] Depression Score 2 09/21/2019 Last EPDS Self [...] suspected to have Coronavirus/COVID-19? No / Unsure 01/16/2022 8:09 AM CDT documented as of this encounter Plan of Treatment Upcoming Encounters Date Type Department Care Team (Late st Contact Info) Description 03/17/2024 9:00 AM CDT Virtual Visit [facility] [address] [place] [phone] Chanel Asher PA-C [id number] [place] [address] [phone] 03/17/2024 9:45 AM CDT Office Visit [facility] [address] [facility] [address] [place] [phone] Jacob Carmona MD [address] [place], [place] [address] documented as of this encounter Visit Diagnoses Not on filedocumented in this encounter Additional Health Concerns Infection Onset Date Last Indicated Resolved Time Rule Out C-difficile 02/26/2022 02/26/2022 022 1:52 PM CDT C-difficile 02/26/2022 02/26/2022 03/28/2022 11:4 1 PM CDT Rule Out C-difficile 09/10/2022 09/10/2022 023 5:27 PM CIGARETTE VENDOR C-difficile 09/10/2022 09/10/2022 10/10/2022 11:3 9 PM CDT Assessment Noted Time PHQ-9 Depression Total Score: 4 10/18/19 22 10:05 AM CDT documented as of this encounter Care Teams Tomato Grader Relationship Specialty Start Date End Date Annalisa Mark APRN TEACHER BALLET PCP - General Nurse Practitioner 03/22/15 06/29/22 Jacob Carmona MD [address] [place], [place] [address] PCP - General 06/30/22 08/28/22 Clinic - [address] [place] [address] PCP - General 08/29/22 01/18/23 Lisa Wright PA-C [address] [place] [phone] PCP - General Family Medicine 01/19/23 Annalisa Mark APRN TEACHER BALLET Assigned PCP 01/22/20 02/21/22 Jacob Carmona MD [facility] [place] [address] Assigned OBGYN Provider 05/18/20 Leonor Burgos MD PRIMARY E[facility] [address] [facility] [address] [place] [address] Assigned PCP 02/22/22 05/16/22 Annalisa Mark APRN TEACHER BALLET Assigned PCP 05/17/22 08/15/22 Leonor Burgos MD [facility] [address] [facility] [address] [place] [address] Assigned PCP 08/16/22 08/29/22 Annalisa Mark APRN TEACHER BALLET [address] [place] [address] Assigned PCP 08/30/22 11/21/22 Curtis Núñez MD [address] [place] [address] 276 [place] [address] Assigned Pulmonology Provider 09/13/22 Leonor Burgos MD [facility] [address] [place] [address] Assigned PCP 11/22/22 11/28/22 Annalisa Mark APRN TEACHER BALLET Assigned PCP 11/29/22 01/23/23 Lisa Wright PA-C [address] [place] [phone] Assigned PCP 01/24/23 documented as of this encounter
--- OUTSIDE RECORDS SUMMARY | 2024-03-15 08:46 | XMS_ITS | Encounter Summary ---
Author Organization [place] Address [address] [place] [address]. [place] [address] Care Team Providers Care Senior Storage Engineer Name Role Phone Annalisa Mark APRN, CNP Primary Care Provi miguel Unavailable Annalisa Mark APRN, CNP Unavailable Un available Jacob Carmona MD Unavailable Leonor Burgos MD Unavailable + DeedeeAnnalisa dean APRN, CNP Unavailable Un available Jacob Carmona MD Primary Care Provider Leonor Burgos MD Unavailable + [facility] Primary Care Provider Annalisa Mark APRN, CNP Unavailable Un available Curtis Núñez MD Unavailable [phone] Leonor Burgos MD Unavailable + Annalisa Mark APRN, CNP Unavailable Un available Lisa Wright PA-C Primary Care Provider [phone] Lisa Wright PA-C Unavailable [phone] Reason for Visit * Reason Comments Medication Refill Encounter Details Date Type Department Care Team (Jd Contact Info) Description 09/12/2021 Refill M [facility] [address] [place] [address] Jacob Carmona MD [address] [place] [address] Medication Refill Social History Tobacco Use Types Packs/Day Years Used Date Smoking Tobacco: Never Smokeless Tobacco: Never Alcohol Use Standard Drinks/Week Comments Yes 0 (1 standard drink = 0.6 oz pur e alcohol) Occaisional Overall Financial Resource Strain (CARDIA) Answe r Date Recorded Difficulty of Paying Living Expenses Not hard at all 02/15/2019 PHQ-2 Answer Date Recorded PHQ-2 Score 0 03/25/2021 Hunger Vital Sign Answer Date Recorded Worried About Running Out of Food in the Last Ye ar Never true 02/15/2019 Ran Out of Food in the Last Year Never true 02/15/2019 PRAPARE - Transportation Answer Date Re corded Lack of Transportation (Medical) No 02/15/2019 Lack of Transportation (Non-Medical) No 02/15/2019 [place] Depression Scale Answer Date Recorded [place] Depression Score 2 09/21/2019 Last EPDS Self [...] month, have you been in contact with someone who was confirmed or suspected to have Coronavirus / COVID-19? No / Unsure 08/29/2021 2:17 PM VP AD SALES WEST documented as of this encounter Plan of Treatment Upcoming Encounters Date Type Department Care Team (Late Contact Info) Description 03/17/2024 9:00 AM CDT Virtual Visit [address] [address] Chanel Asher PA-C [address] [place] [address] 03/17/2024 9:45 AM CDT Office Visit [facility] [address] [place] [phone] Jacob Carmona MD [address] [place] [address] documented as of this encounter Visit Diagnoses Diagnosis OCP (oral contraceptive pills) initiation General counseling for prescription of oral contraceptives documented in this encounter Additional Health Concerns Infection Onset Date Last Indicated Resolved Time Rule Out C-difficile 02/26/2022 02/26/2022 022 1:52 PM CDT C-difficile 02/26/2022 02/26/2022 03/28/2022 11:4 1 PM CDT Rule Out C-difficile 09/10/2022 09/10/2022 023 5:27 PM VP AD SALES WEST C-difficile 09/10/2022 09/10/2022 10/10/2022 11:3 9 PM CDT Assessment Noted Time PHQ-9 Depression Total Score: 2 03/25/20 21 2:42 PM CDT documented as of this encounter Care Teams Senior Storage Engineer Relationship Specialty Start Date End Date Annalisa Mark APRN DEHYDROGENATION CONVERTER OPERATOR PCP - General Nurse Practitioner 03/22/15 06/29/22 Jacob Carmona MD [address] [place] [address] PCP - General 06/30/22 08/28/22 [facility] [place] [address] [place] [address] PCP - General 08/29/22 01/18/23 Lisa Wright PA-C [address] [place] [address] PCP - General Family Medicine 01/19/23 Annalisa Mark APRN DEHYDROGENATION CONVERTER OPERATOR Assigned PCP 01/22/20 02/21/22 Jacob Carmona MD [address] [place], [place] [address] Assigned OBGYN Provider 05/18/20 Leonor Burgos MD PRIMARY ENT [address] [facility] [address] [place] [address] Assigned PCP 02/22/22 05/16/22 Annalisa Mark APRN DEHYDROGENATION CONVERTER OPERATOR Assigned PCP 05/17/22 08/15/22 Leonor Burgos MD [facility] [address] [place] [address] Assigned PCP 08/16/22 08/29/22 Annalisa Mark APRN DEHYDROGENATION CONVERTER OPERATOR [address] [place] [address] Assigned PCP 08/30/22 11/21/22 Curtis Núñez MD [address] [facility] [address] [place] [address] Assigned Pulmonology Provider 09/13/22 Leonor Burgos MD PR[place] [address] [place] [address] Assigned PCP 11/22/22 11/28/22 Annalisa Mark, JADEN DEHYDROGENATION CONVERTER OPERATOR Assigned PCP 11/29/22 01/23/23 Lisa Wright PA-C [address] [place] [address] Assigned PCP 01/24/23 documented as of this encounter
--- OUTSIDE RECORDS SUMMARY | 2024-03-15 08:46 | XMS_ITS | Encounter Summary ---
Author Organization [place] Address [address] [place] [address]. [place] [address] Care Team Providers Care Clock And Watch Hands Mounter Name Role Phone DeedeeAnnalisa dean APRN, CNP Primary Care Provi miguel Unavailable DeedeeAnnalisa dean APRN, CNP Unavailable Un available Jacob Carmona MD Unavailable [phone] Leonor Burgos MD Unavailable + DeedeeAnnalisa APRN, CNP Unavailable Un available Jacob Carmona MD Primary Care Provider Leonor Burgos MD Unavailable + [facility] Primary Care Provider Annalisa Mark APRN, CNP Unavailable Un available Curtis Núñez MD Unavailable [phone] Leonor Burgos MD Unavailable + Annalisa Mark APRN, CNP Unavailable Un available Lisa Wright PA-C Primary Care Provider Lisa Wright PA-C Unavailable [phone] Encounter Details Date Type Department Care Team (Late st Contact Info) Description 01/17/2022 MyC Medical Advice [facility] [place] [address] [facility] [address] [place] [address] Kerri Roa CMA Social History Tobacco Use Types Packs/Day Years [...] you attend [facility] or zoroastrianism services? Patient declined 10/16/2021 Do you belong [...] Answer Date Recorded PHQ-2 Score 0 11/08/2021 [facility] [place] of Occupat ional Health - Occupational Stress [...] in a snf (including now)? No 10/16/2021 [place] Depression Scale Answer Date Recorded [place] Depression Score 2 09/21/2019 Last EPDS Self [...] Description 03/17/2024 9:00 AM CDT Virtual Visit [facility] [address] [place] [phone] Chanel Asher PA-C [address] [place] [address] 03/17/2024 9:45 AM CDT Office Visit [facility] [address] [facility] [place] [phone] Jacob Carmona MD [address] [place], [place] [address] documented as of this encounter Visit Diagnoses Not on filedocumented in this encounter Additional Health Concerns Infection Onset Date Last Indicated Resolved Time Rule Out C-difficile 02/26/2022 02/26/2022 022 1:52 PM CDT C-difficile 02/26/2022 02/26/2022 03/28/2022 11:4 1 PM CDT Rule Out C-difficile 09/10/2022 09/10/2022 023 5:27 PM SUPERVISOR HEAVY EQUIPMENT C-difficile 09/10/2022 09/10/2022 10/10/2022 11:3 9 PM CDT Assessment Noted Time PHQ-9 Depression Total Score: 4 10/18/19 22 10:05 AM CDT documented as of this encounter Care Teams Clock And Watch Hands Mounter Relationship Specialty Start Date End Date Annalisa Mark APRN SSIS ARCHITECT PCP - General Nurse Practitioner 03/22/15 06/29/22 Jacob Carmona MD [address] [place] [address] PCP - General 06/30/22 08/28/22 Clinic - [facility] [id number] [place] [id number] PCP - General 08/29/22 01/18/23 Lisa Wright PA-C [address] [place] [address] PCP - General Family Medicine 01/19/23 Annalisa Mark APRN SSIS ARCHITECT Assigned PCP 01/22/20 02/21/22 Jacob Carmona MD [address] [place] [address] Assigned OBGYN Provider 05/18/20 Leonor Burgos MD PRIMARY ENT [address] [place], [place] [address] Assigned PCP 02/22/22 05/16/22 Annalisa Mark APRN SSIS ARCHITECT Assigned PCP 05/17/22 08/15/22 Leonor Burgos MD PR[facility] [place] [address] [place] [address] Assigned PCP 08/16/22 08/29/22 Annalisa Mark APRN SSIS ARCHITECT [address] [place] [address] Assigned PCP 08/30/22 11/21/22 Curtis Núñez MD [address] [facility] [address] [place], [place] [address] Assigned Pulmonology Provider 09/13/22 Leonor Burgos MD PRIMARY ENT [address] [place], [place] [address] Assigned PCP 11/22/22 11/28/22 Annalisa Mark APRN SSIS ARCHITECT Assigned PCP 11/29/22 01/23/23 Lisa Wright PA-C [address] [place] [address] Assigned PCP 01/24/23 documented as of this encounter
--- OUTSIDE RECORDS SUMMARY | 2024-03-15 08:46 | XMS_ITS | Encounter Summary ---
Author Organization [place] Address [address] [place] [address]. [place] [address] Care Team Providers Care Resource Director Name Role Phone DeedeeAnnalisa dean APRN, CNP Primary Care Provi miguel Unavailable DeedeeAnnalisa dean APRN, CNP Unavailable Un available Jacob Carmona MD Unavailable Leonor Burgos MD Unavailable + DeedeeAnnalisa APRN, CNP Unavailable Un available Jacob Carmona MD Primary Care Provider Leonor Burgos MD Unavailable + [facility] Primary Care Provider Annalisa Mark APRN, CNP Unavailable Un available Curtis Núñez MD Unavailable [phone] Leonor Burgos MD Unavailable + Annalisa Mark APRN, CNP Unavailable Un available Lisa Wright PA-C Primary Care Provider Lisa Wright PA-C Unavailable [phone] Encounter Details Date Type Department Care Team (Late st Contact Info) Description 10/10/2020 MyC Medical Advice [facility] [address] [place] [address] Jacob Carmona MD [address] [place] [address] Social History Tobacco Use Types Packs/Day Years Used Date Smoking Tobacco: Never Smokeless Tobacco: Never Alcohol Use Standard Drinks/Week Comments Yes 0 (1 standard drink = 0.6 oz pur e alcohol) Occaisional Overall Financial Resource Strain (CARDIA) Answe r Date Recorded Difficulty of Paying Living Expenses Not hard at all 02/15/2019 PHQ-2 Answer Date Recorded PHQ-2 Score 0 08/03/2018 Hunger Vital Sign Answer Date Recorded Worried About Running Out of Food in the Last Ye ar Never true 02/15/2019 Ran Out of Food in the Last Year Never true 02/15/2019 PRAPARE - Transportation Answer Date Re corded Lack of Transportation (Medical) No 02/15/2019 Lack of Transportation (Non-Medical) No 02/15/2019 [place] Depression Scale Answer Date Recorded [place] Depression Score 2 09/21/2019 Last EPDS Self [...] have Coronavirus / COVID-19? No / Unsure 10/11/2020 3:24 PM CDT documented as of this encounter Plan of Treatment Upcoming Encounters Date Type Department Care Team (Late st Contact Info) Description 03/17/2024 9:00 AM CDT Virtual Visit [address] [address] Chanel Asher PA-C [address] [place] [address] 03/17/2024 9:45 AM CDT Office Visit [facility] [address] [place] [phone] Jacob Carmona MD [address] [place] [address] documented as of this encounter Visit Diagnoses Not on filedocumented in this encounter Additional Health Concerns Infection Onset Date Last Indicated Resolved Time Rule Out COVID-19 01/14/2021 01/14/2021 01/15/2021 3:32 PM CDT Rule Out C-difficile 02/26/2022 02/26/2022 022 1:52 PM CDT C-difficile 02/26/2022 02/26/2022 03/28/2022 11:4 1 PM CDT Rule Out C-difficile 09/10/2022 09/10/2022 023 5:27 PM TIPPLE SUPERVISOR C-difficile 09/10/2022 09/10/2022 10/10/2022 11:3 9 PM CDT Assessment Noted Time PHQ-9 Depression Total Score: 2 12/08/19 20 7:04 AM CDT documented as of this encounter Care Teams Resource Director Relationship Specialty Start Date End Date Annalisa Mark APRN PLATE PRINTER PCP - General Nurse Practitioner 03/22/15 06/29/22 Jacob Carmona MD [address] [place] [address] PCP - General 06/30/22 08/28/22 [facility] [address] [place] [address] PCP - General 08/29/22 01/18/23 Lisa Wright PA-C [address] [place] [address] PCP - General Family Medicine 01/19/23 Annalisa Mark APRN PLATE PRINTER Assigned PCP 01/22/20 02/21/22 Jacob Carmona MD [address] [place] [address] Assigned OBGYN Provider 05/18/20 Leonor Burgos MD PRIMARY ENT [address] [facility] [place] [address] Assigned PCP 02/22/22 05/16/22 Annalisa Mark APRN PLATE PRINTER Assigned PCP 05/17/22 08/15/22 Leonor Burgos MD PRIMARY ENT [address] [facility] [address] [place] [address] Assigned PCP 08/16/22 08/29/22 Annalisa Mark APRN PLATE PRINTER [address] [place] [address] Assigned PCP 08/30/22 11/21/22 Curtis Núñez MD [address] [place] [address] 276 [place], [place] [address] Assigned Pulmonology Provider 09/13/22 Leonor Burgos MD PRIMARY ENT [address] [facility] [address] [place], [place] [address] Assigned PCP 11/22/22 11/28/22 Annalisa Mark APRN PLATE PRINTER Assigned PCP 11/29/22 01/23/23 Lisa Wright PA-C [address] [place] [address] Assigned PCP 01/24/23 documented as of this encounter
--- OUTSIDE RECORDS SUMMARY | 2024-03-15 08:46 | XMS_ITS | Encounter Summary ---
Author Organization [place] Address [address] [place] [address]. [place] [address] Care Team Providers Care Head Control Clerk Name Role Phone DeedeeAnnalisa daen APRN, CNP Primary Care Provi miguel Unavailable DeedeeAnnalisa dean APRN, CNP Unavailable Un available Jacob Carmona MD Unavailable [phone] Leonor Burgos MD Unavailable + DeedeeAnnalisa APRN, CNP Unavailable Un available Jacob Carmona MD Primary Care Provider Leonor Burgos MD Unavailable + [facility] Primary Care Provider Annalisa Mark APRN, CNP Unavailable Un available Curtis Núñez MD Unavailable [phone] Leonor Burgos MD Unavailable + Annalisa Mark APRN, CNP Unavailable Un available Lisa Wright PA-C Primary Care Provider Lisa Wright PA-C Unavailable [phone] Encounter Details Date Type Department Care Team (Late st Contact Info) Description 07/18/2021 MyC Medical Advice [facility] [address] [facility] [address] [place] [address] Jacob Carmona MD [address] [place] [address] Social History Tobacco Use Types Packs/Day Years [...] 02/15/2019 Lack of Transportation (Non-Medical) No 02/15/2019 [place] Depression Scale Answer Date Recorded [place] Depression Score 2 09/21/2019 Last EPDS Self [...] Description 03/17/2024 9:00 AM CDT Virtual Visit [address] [phone] Chanel Asher, PAJonnathanC [id number] [place] [phone] 03/17/2024 9:45 AM CDT [facility] [address] [facility] [address] [place] [address] Jacob Carmona MD [address] [place] [address] documented as of this encounter Visit Diagnoses Not on filedocumented in this encounter Additional Health Concerns Infection Onset Date Last Indicated Resolved Time Rule Out C-difficile 02/26/2022 02/26/2022 022 1:52 PM CDT C-difficile 02/26/2022 02/26/2022 03/28/2022 11:4 1 PM CDT Rule Out C-difficile 09/10/2022 09/10/2022 023 5:27 PM PRIVATE DUTY AIDE C-difficile 09/10/2022 09/10/2022 10/10/2022 11:3 9 PM CDT Assessment Noted Time PHQ-9 Depression Total Score: 2 03/25/20 21 2:42 PM CDT documented as of this encounter Care Teams Head Control Clerk Relationship Specialty Start Date End Date Annalisa Mark APRN CARRY OUT CLERK AND SHELF STOCKER PCP - General Nurse Practitioner 03/22/15 06/29/22 Jacob Carmona MD [address] [place] [address] PCP - General 06/30/22 08/28/22 Clinic - [facility] [address] [place] [address] PCP - General 08/29/22 01/18/23 Lisa Wright PA-C [address] [place] [address] PCP - General Family Medicine 01/19/23 Annalisa Mark APRN CARRY OUT CLERK AND SHELF STOCKER Assigned PCP 01/22/20 02/21/22 Jacob Carmona MD [address] [place], [place] [address] Assigned OBGYN Provider 05/18/20 Leonor Burgos MD PRIMARY ENT [address] [place], [place] [address] Assigned PCP 02/22/22 05/16/22 Annalisa Mark APRN CARRY OUT CLERK AND SHELF STOCKER Assigned PCP 05/17/22 08/15/22 Leonor Burgos MD PRIMARY ENT [address] [facility] [address] [place] [address] Assigned PCP 08/16/22 08/29/22 Annalisa Mark APRN CARRY OUT CLERK AND SHELF STOCKER [address] [place] [address] Assigned PCP 08/30/22 11/21/22 Curtis Núñez MD [address] [facility] 276 [place] [address] Assigned Pulmonology Provider 09/13/22 Leonor Burgos MD PRIMARY ENT [address] [facility] [address] [place] [address] Assigned PCP 11/22/22 11/28/22 Annalisa Mark APRN CARRY OUT CLERK AND SHELF STOCKER Assigned PCP 11/29/22 01/23/23 Lisa Wright PA-C [address] [place] [phone] Assigned PCP 01/24/23 documented as of this encounter
--- OUTSIDE RECORDS SUMMARY | 2024-03-15 08:46 | XMS_ITS | Encounter Summary ---
Author Organization [place] Address [address] [place] [address]. [place] [address] Care Team Providers Care Automotive Light Mechanic Name Role Phone Annalisa Mark APRN, CNP Primary Care Provi miguel Unavailable Annalisa Mark APRN, CNP Unavailable Un available Jacob Carmona MD Unavailable [phone] Leonor Burgos MD Unavailable + DeedeeAnnalisa dean APRN, CNP Unavailable Un available Jacob Carmona MD Primary Care Provider Leonor Burgos MD Unavailable + [facility] Primary Care Provider Annalisa Mark APRN, CNP Unavailable Un available Curtis Núñez MD Unavailable [phone] Leonor Burgos MD Unavailable + Annalisa Mark APRN, CNP Unavailable Un available Lisa Wright PA-C Primary Care Provider [phone] Lisa Wright PA-C Unavailable [phone] Reason for Visit * Reason Comments Medication Refill Encounter Details Date Type Department Care Team (Jd Contact Info) Description 12/07/2021 [facility]ill [facility] [address] [facility] [address] [place] [address] Jacob Carmona MD [address] [place] [address] Medication Refill Social History Tobacco Use Types [...] week 10/16/2021 [facility]? Patient declined 10/16/2021 Do you belong to any clubs o r organizations such as sikh groups, unions, fraternal [...] Recorded PHQ-2 Score 0 11/08/2021 [facility] [place] of Occupat ional Health - Occupational Stress [...] or slept in a residential (including now)? No 10/16/2021 [place] Depression Scale Answer Date Recorded [place] Depression Score 2 09/21/2019 Last EPDS Self [...] was confirmed or suspected to have Coronavirus/COVID-19? Yes 11/12/2021 12:16 PM CDT documented as of this encounter Plan of Treatment Upcoming Encounters Date Type Department Care Team (Late st Contact Info) Description 03/17/2024 9:00 AM CDT Virtual Visit [facility] [address] [place] [address] Chanel Asher PA-C [address] [place] [address] 03/17/2024 9:45 AM CDT Office Visit [facility] [address] [facility] [address] [place] [phone] Jacob Carmona MD [address] [place], [place] [address] documented as of this encounter Visit Diagnoses Diagnosis OCP (oral contraceptive pills) initiation General counseling for prescription of oral contraceptives documented in this encounter Additional Health Concerns Infection Onset Date Last Indicated Resolved Time Rule Out C-difficile 02/26/2022 02/26/2022 022 1:52 PM CDT C-difficile 02/26/2022 02/26/2022 03/28/2022 11:4 1 PM CDT Rule Out C-difficile 09/10/2022 09/10/2022 023 5:27 PM SOLARIS ADMINISTRATOR C-difficile 09/10/2022 09/10/2022 10/10/2022 11:3 9 PM CDT Assessment Noted Time PHQ-9 Depression Total Score: 4 10/18/19 22 10:05 AM CDT documented as of this encounter Care Teams Automotive Light Mechanic Relationship Specialty Start Date End Date Annalisa Mark APRN ERECTING CRANE OPERATOR PCP - General Nurse Practitioner 03/22/15 06/29/22 Jacob Carmona MD [address] [place], [place] [address] PCP - General 06/30/22 08/28/22 Clinic - [facility] [address] [place] [address] PCP - General 08/29/22 01/18/23 Lisa Wright PA-C [address] [place] [address] PCP - General Family Medicine 01/19/23 Annalisa Mark APRN ERECTING CRANE OPERATOR Assigned PCP 01/22/20 02/21/22 Jacob Carmona MD [address] [place] [address] Assigned OBGYN Provider 05/18/20 Leonor Burgos MD [facility] [address] [facility] [address] [place] [address] Assigned PCP 02/22/22 05/16/22 Annalisa Mark APRN ERECTING CRANE OPERATOR Assigned PCP 05/17/22 08/15/22 Leonor Burgos MD [facility] [address] [facility] [address] [place] [address] Assigned PCP 08/16/22 08/29/22 Annalisa Mark APRN ERECTING CRANE OPERATOR [address] [place] [address] Assigned PCP 08/30/22 11/21/22 Curtis Núñez MD [address] [place] [address] [address] [place], [place] [address] Assigned Pulmonology Provider 09/13/22 Leonor Burgos MD PRIMARY [facility] [address] [place] [address] Assigned PCP 11/22/22 11/28/22 Annalisa Mark APRN ERECTING CRANE OPERATOR Assigned PCP 11/29/22 01/23/23 Lisa Wright PA-C [address] [place] [address] Assigned PCP 01/24/23 documented as of this encounter
--- OUTSIDE RECORDS SUMMARY | 2024-03-15 08:46 | XMS_ITS | Encounter Summary ---
Author Organization [place] Address [address] [place] [address]. [place] [address] Care Team Providers Care Carrot Buncher Name Role Phone DeedeeAnnalisa dean APRN, CNP Primary Care Provi miguel Unavailable DeedeeAnnalisa dean APRN, CNP Unavailable Un available Jacob Carmona MD Unavailable Leonor Burgos MD Unavailable + DeedeeAnnalisa APRN, CNP Unavailable Un available Jacob Carmona MD Primary Care Provider Leonor Burgos MD Unavailable + [facility] Primary Care Provider Annalisa Mark APRN, CNP Unavailable Un available Curtis Núñez MD Unavailable [phone] Leonor Burgos MD Unavailable + Annalisa Mark APRN, CNP Unavailable Un available Lisa Wright PA-C Primary Care Provider Lisa Wright PA-C Unavailable [phone] Encounter Details Date Type Department Care Team (Late st Contact Info) Description 09/07/2020 MyC Medical Advice [facility] [address] [place] [phone] Jacob Carmona MD [address] [place] [address] Social History Tobacco Use Types Packs/Day Years [...] 02/15/2019 Lack of Transportation (Non-Medical) No 02/15/2019 [place] Depression Scale Answer Date Recorded [place] Depression Score 2 09/21/2019 Last EPDS Self [...] CDT Virtual Visit [facility] [id number] [place] [phone] Chanel Asher, PAJonnathanC [phone] [place] [address] 03/17/2024 9:45 AM CDT [facility] [address] [facility] [address] [place] [phone] Jacob Carmona MD [address] [place] [address] documented as of this encounter Visit Diagnoses Not on filedocumented in this encounter Additional Health Concerns Infection Onset Date Last Indicated Resolved Time Rule Out COVID-19 01/14/2021 01/14/2021 01/15/2021 3:32 PM CDT Rule Out C-difficile 02/26/2022 02/26/2022 022 1:52 PM CDT C-difficile 02/26/2022 02/26/2022 03/28/2022 11:4 1 PM CDT Rule Out C-difficile 09/10/2022 09/10/2022 023 5:27 PM CLINICAL TRAINER C-difficile 09/10/2022 09/10/2022 10/10/2022 11:3 9 PM CDT Assessment Noted Time PHQ-9 Depression Total Score: 2 12/08/19 20 7:04 AM CDT documented as of this encounter Care Teams Carrot Buncher Relationship Specialty Start Date End Date Annalisa Mark APRN CNP PCP - General Nurse Practitioner 03/22/15 06/29/22 Jacob Carmona MD [address] [place] [address] PCP - General 06/30/22 08/28/22 [facility] [address] [place] [address] PCP - General 08/29/22 01/18/23 Lisa Wright PA-C [address] [place] [address] PCP - General Family Medicine 01/19/23 Annalisa Mark APRN CELL REPAIRER Assigned PCP 01/22/20 02/21/22 Jacob Carmona MD [address] [place] [address] Assigned OBGYN Provider 05/18/20 Leonor Burgos MD PRIMARY ENT [address] [facility] [address] [place], [place] [address] Assigned PCP 02/22/22 05/16/22 Annalisa Mark APRN CELL REPAIRER Assigned PCP 05/17/22 08/15/22 Leonor Burgos MD PRIMARY ENT [address] [facility] [address] [place] [address] Assigned PCP 08/16/22 08/29/22 Annalisa Mark APRN CELL REPAIRER [address] [place] [address] Assigned PCP 08/30/22 11/21/22 Curtis Nñúez MD [address] [facility] [address] [place], [place] [address] Assigned Pulmonology Provider 09/13/22 Leonor Burgos MD PRIMARY ENT [address]854 [facility] [address] [place], [place] 28[address]38 Assigned PCP 11/22/22 11/28/22 Annalisa Mark APRN CELL REPAIRER Assigned PCP 11/29/22 01/23/23 Lisa Wright PA-C [address] [place] [phone] Assigned PCP 01/24/23 documented as of this encounter
--- OUTSIDE RECORDS SUMMARY | 2024-03-15 08:46 | XMS_ITS | Encounter Summary ---
Author Organization [place] Address [address] [place] [address]. [place] [address] Care Team Providers Care Senior Ux Developer Name Role Phone DeedeeAnnalisa dean APRN, CNP Primary Care Provi miguel Unavailable DeedeeAnnalisa dean APRN, CNP Unavailable Un available Jacob Carmona MD Unavailable Leonor Burgos MD Unavailable + DeedeeAnnalisa APRN, CNP Unavailable Un available Jacob Carmona MD Primary Care Provider Leonor Burgos MD Unavailable + [facility] Primary Care Provider Annalisa Mark APRN, CNP Unavailable Un available Curtis Núñez MD Unavailable [phone] Leonor Brugos MD Unavailable + Annalisa Mark APRN, CNP Unavailable Un available Lisa Wright PA-C Primary Care Provider Lisa Wright PA-C Unavailable [phone] Encounter Details Date Type Department Care Team (Late st Contact Info) Description 04/07/2021 MyC Medical Advice [facility] [address] [facility] [address] [place] [address] Jacob Carmona MD [address] [place] [address] Social History Tobacco Use Types Packs/Day Years [...] 02/15/2019 Lack of Transportation (Non-Medical) No 02/15/2019 [place] Depression Scale Answer Date Recorded [place] Depression Score 2 09/21/2019 Last EPDS Self [...] have Coronavirus / COVID-19? No / Unsure 03/25/2021 2:37 PM CDT documented as of this encounter Plan of Treatment Upcoming Encounters Date Type Department Care Team (Late st Contact Info) Description 03/17/2024 9:00 AM CDT Virtual Visit [address] [phone] Chanel Asher PA-C [address] [place] [address] 03/17/2024 9:45 AM CDT Office Visit [facility] [place] [address] [facility] [address] [place] [phone] Jacob Carmona MD [address] [place] [address] documented as of this encounter Visit Diagnoses Not on filedocumented in this encounter Additional Health Concerns Infection Onset Date Last Indicated Resolved Time Rule Out C-difficile 02/26/2022 02/26/2022 022 1:52 PM CDT C-difficile 02/26/2022 02/26/2022 03/28/2022 11:4 1 PM CDT Rule Out C-difficile 09/10/2022 09/10/2022 023 5:27 PM AUTHORIZATION MANAGER C-difficile 09/10/2022 09/10/2022 10/10/2022 11:3 9 PM CDT Assessment Noted Time PHQ-9 Depression Total Score: 2 03/25/20 21 2:42 PM CDT documented as of this encounter Care Teams Senior Ux Developer Relationship Specialty Start Date End Date Annalisa Mark APRN COLLECTION TECHNICIAN PCP - General Nurse Practitioner 03/22/15 06/29/22 Jacob Carmona MD [address] [place] [address] PCP - General 06/30/22 08/28/22 [facility] [address] [place], [place] [phone] PCP - General 08/29/22 01/18/23 Lisa Wright PA-C [address] [place] [address] PCP - General Family Medicine 01/19/23 Annalisa Mark APRN COLLECTION TECHNICIAN Assigned PCP 01/22/20 02/21/22 Jacob Carmona MD [address] [place], [place] [address] Assigned OBGYN Provider 05/18/20 Leonor Burgos MD PRIMARY ENT [address] [place] [address] Assigned PCP 02/22/22 05/16/22 Annalisa Mark APRN COLLECTION TECHNICIAN Assigned PCP 05/17/22 08/15/22 Leonor Burgos MD PR[facility] [address] [place] [address] Assigned PCP 08/16/22 08/29/22 Annalisa Mark APRN COLLECTION TECHNICIAN [address] [place] [address] Assigned PCP 08/30/22 11/21/22 Curtis Núñez MD [address] [facility] 276 [place] [address] Assigned Pulmonology Provider 09/13/22 Leonor Burgos MD PRIMARY [facility]NT [address] [place] [address] Assigned PCP 11/22/22 11/28/22 Annalisa Mark APRN COLLECTION TECHNICIAN Assigned PCP 11/29/22 01/23/23 Lisa Wright PA-C [address] [place] [phone] Assigned PCP 01/24/23 documented as of this encounter
--- OUTSIDE RECORDS SUMMARY | 2024-03-15 08:46 | XMS_ITS | Encounter Summary ---
Author Organization [place] Address [address] [place] [address]. [place] [address] Care Team Providers Care Traffic Control Operator Name Role Phone DeedeeAnnalisa dean APRN, CNP Primary Care Provi miguel Unavailable DeedeeAnnailsa dean APRN, CNP Unavailable Un available Jacob Carmona MD Unavailable Leonor Burgos MD Unavailable + DeedeeAnnalisa APRN, CNP Unavailable Un available Jacob Carmona MD Primary Care Provider Leonor Burgos MD Unavailable + [facility] Primary Care Provider Annalisa Mark APRN, CNP Unavailable Un available Curtis Núñez MD Unavailable [phone] Leonor Burgos MD Unavailable + Annalisa Mark APRN, CNP Unavailable Un available Lisa Wright PA-C Primary Care Provider Lisa Wright PA-C Unavailable [phone] Encounter Details Date Type Department Care Team (Late st Contact Info) Description 09/12/2021 MyC Medical Advice [facility] [place] [address] [facility] [address] [place] [address] Jacob Carmona MD [address] [place] [address] OCP (oral contraceptive pills) initiation Social History [...] 02/15/2019 Lack of Transportation (Non-Medical) No 02/15/2019 [place] Depression Scale Answer Date Recorded [place] Depression Score 2 09/21/2019 Last EPDS Self [...] COVID-19? No / Unsure 08/29/2021 2:17 PM NATIONAL SALES ASSOCIATE documented as of this encounter Miscellaneous Notes * Telephone Encounter - Mary Lou Petty RN - 09/12/2021 1:50 PM CST OCP sent in for 3 months. Advised to schedule annual in order to get further refills. Mary Lou Petty RN ONAL SALES ASSOCIATE documented in this encounter Plan of Treatment Upcoming Encounters Date Type Department Care Team (Late st Contact Info) Description 03/17/2024 9:00 AM CDT Virtual Visit [facility] [address] [place] [phone] Chanel Asher PA-C [phone] [place] [address] 03/17/2024 9:45 AM CDT Office Visit [facility] [address] [place] [address] [address] [place] [address] Jacob Carmona MD [address] [place], [place] [phone] documented as of this encounter Visit Diagnoses Diagnosis OCP (oral contraceptive pills) initiation General counseling for prescription of oral contraceptives documented in this encounter Additional Health Concerns Infection Onset Date Last Indicated Resolved Time Rule Out C-difficile 02/26/2022 02/26/2022 022 1:52 PM CDT C-difficile 02/26/2022 02/26/2022 03/28/2022 11:4 1 PM CDT Rule Out C-difficile 09/10/2022 09/10/2022 023 5:27 PM NATIONAL SALES ASSOCIATE C-difficile 09/10/2022 09/10/2022 10/10/2022 11:3 9 PM CDT Assessment Noted Time PHQ-9 Depression Total Score: 2 03/25/20 21 2:42 PM CDT documented as of this encounter Care Teams Traffic Control Operator Relationship Specialty Start Date End Date Annalisa Mark APRN OPTOMETRY TEACHER PCP - General Nurse Practitioner 03/22/15 06/29/22 Jacob Carmona MD [address] [place], [place] [phone] PCP - General 06/30/22 08/28/22 [facility] [address] [place], [place] [id number] PCP - General 08/29/22 01/18/23 Lisa Wright PA-C [address] [place] [address] PCP - General Family Medicine 01/19/23 Annalisa Mark APRN OPTOMETRY TEACHER Assigned PCP 01/22/20 02/21/22 Jacob Carmona MD [address] [place] [address] Assigned OBGYN Provider 05/18/20 Leonor Burgos MD PRIMARY ENT [address] [facility] [address] [place], [place] [address] Assigned PCP 02/22/22 05/16/22 Annalisa Mark APRN OPTOMETRY TEACHER Assigned PCP 05/17/22 08/15/22 Leonor Burgos MD PRIMARY ENT [address] [facility] [address] [place] [address] Assigned PCP 08/16/22 08/29/22 Annalisa Mark APRN OPTOMETRY TEACHER [address] [place] [address] Assigned PCP 08/30/22 11/21/22 Curtis Núñez MD [address] [place] [address]6815 Assigned Pulmonology Provider 09/13/22 Leonor Burgos MD PRIMARY ENT [address] [place] [address] Assigned PCP 11/22/22 11/28/22 Annalisa Mark APRN OPTOMETRY TEACHER Assigned PCP 11/29/22 01/23/23 Lisa Wright PA-C [address] [facility] [place] [phone] Assigned PCP 01/24/23 documented as of this encounter
--- OUTSIDE RECORDS SUMMARY | 2024-03-15 08:46 | XMS_ITS | Encounter Summary ---
Author Organization [place] Address [address] [place] [address]. [place] [address] Care Team Providers Care Explosive Operator Grenade Name Role Phone Annalisa Mark APRN, CNP Primary Care Provi miguel Unavailable DeedeeAnnalisa dean APRN, CNP Unavailable Un available Jacob Carmona MD Unavailable [phone] Leonor Burgos MD Unavailable + DeedeeAnnalisa dean APRN, CNP Unavailable Un available Jacob Carmona MD Primary Care Provider Leonor Burgos MD Unavailable + [facility] Primary Care Provider Annalisa Mark APRN, CNP Unavailable Un available Curtis Núñez MD Unavailable [phone] Leonor Burgos MD Unavailable + Annalisa Mark APRN, CNP Unavailable Un available Lisa [place] PA-C Primary Care Provider [phone] Lisa Wright PA-C Unavailable [phone] Reason for Visit * Reason Onset Date Comments Mouth Lesions 05/01/2020 Encounter Details Date Type Department Care Team (Late st Contact Info) Description 05/01/2020 MyC Medical Advice [address] [address] Annalisa Mark APRN CNP Mouth Lesions Social History Tobacco Use Types Packs/Day Years [...] 02/15/2019 Lack of Transportation (Non-Medical) No 02/15/2019 [place] Depression Scale Answer Date Recorded [place] Depression Score 2 09/21/2019 Last EPDS Self [...] have Coronavirus / COVID-19? No / Unsure 05/03/2020 11:21 AM CDT documented as of this encounter Miscellaneous Notes * Telephone Encounter - Annalisa Mark APRN BOOSTER OPERATOR - 05/01/2020 11:06 PM CDT Please schedule Tameka for a clinic visit with me on 05/03 at 11:40 am, she will arrive at [address] for the exam is oral lesion and she does know about the visit. Thanks Annalisa Mark CNP * Telephone Encounter - Annalisa Mark APRN CNP - 05/01/2020 10:14 PM CDT Responded to Regen message. Annalisa Mark CNP documented in this encounter Plan of Treatment Upcoming Encounters Date Type Department Care Team (Late st Contact Info) Description 03/17/2024 9:00 AM CDT Virtual Visit [facility] [address] [place] [phone] Chanel Asher PA-C [address] [place] [phone] 03/17/2024 9:45 AM CDT Office Visit [facility] [address] [facility] [address] [place] [phone] Jacob Carmona MD [address] [place], [place] [phone] documented as of this encounter Visit Diagnoses Not on filedocumented in this encounter Additional Health Concerns Infection Onset Date Last Indicated Resolved Time Rule Out COVID-19 01/14/2021 01/14/2021 01/15/2021 3:32 PM CDT Rule Out C-difficile 02/26/2022 02/26/2022 022 1:52 PM CDT C-difficile 02/26/2022 02/26/2022 03/28/2022 11:4 1 PM CDT Rule Out C-difficile 09/10/2022 09/10/2022 023 5:27 PM RETREAD MOLD OPERATOR C-difficile 09/10/2022 09/10/2022 10/10/2022 11:3 9 PM CDT Assessment Noted Time PHQ-9 Depression Total Score: 2 12/08/19 20 7:04 AM CDT documented as of this encounter Care Teams Explosive Operator Grenade Relationship Specialty Start Date End Date Annalisa Mark APRN BOOSTER OPERATOR PCP - General Nurse Practitioner 03/22/15 06/29/22 Jacob Carmona MD [address] [place] [address] PCP - General 06/30/22 08/28/22 [facility] [address] [place], [place] [phone] PCP - General 08/29/22 01/18/23 Lisa Wright PA-C [address] [place] [address] PCP - General Family Medicine 01/19/23 Annalisa Mark APRN BOOSTER OPERATOR Assigned PCP 01/22/20 02/21/22 Jacob Carmona MD [address] [place] [address] Assigned OBGYN Provider 05/18/20 Leonor Burgos MD PRIMARY ENT [address] [facility] [address] [place] [address] Assigned PCP 02/22/22 05/16/22 Annalisa Mark APRN BOOSTER OPERATOR Assigned PCP 05/17/22 08/15/22 Leonor Burgos MD PRIMARY ENT [address] [place] [address] Assigned PCP 08/16/22 08/29/22 Annalisa Mark APRN BOOSTER OPERATOR [address] [place] [address] Assigned PCP 08/30/22 11/21/22 Curtis Núñez MD 420 [facility] 276 [place], [place] [address] Assigned Pulmonology Provider 09/13/22 Leonor Burgos MD PRIMARY ENT [address] [place], [place] [address] Assigned PCP 11/22/22 11/28/22 Annalisa Mark APRN BOOSTER OPERATOR Assigned PCP 11/29/22 01/23/23 Lisa Wright PA-C [address] [place] [address] Assigned PCP 01/24/23 documented as of this encounter
--- OUTSIDE RECORDS SUMMARY | 2024-03-15 08:46 | XMS_ITS | Encounter Summary ---
Author Organization [place] Address [address] [place] [address]. [place] [address] Care Team Providers Care Plastic Production Machine Setter Name Role Phone DeedeeAnnalisa dean APRN, CNP Primary Care Provi miguel Unavailable DeedeeAnnalisa dean APRN, CNP Unavailable Un available Jacob Carmona MD Unavailable [phone] Leonor Burgos MD Unavailable + DeedeeAnnalisa APRN, CNP Unavailable Un available Jacob Carmona MD Primary Care Provider Leonor Burgos MD Unavailable + [facility] Primary Care Provider Annalisa Mark APRN, CNP Unavailable Un available Curtis Núñez MD Unavailable [phone] Leonor Burgos MD Unavailable + DeedeeAnnalisa dean APRN, CNP Unavailable Un available Lisa [place] PA-C Primary Care Provider Lisa Wright PA-C Unavailable [phone] Encounter Details Date Type Department Care Team (Late st Contact Info) Description 04/26/2020 MyC Medical Advice [facility] [address] [place] [phone] Shirlene Annaliseselina Meng, JADEN OUTSIDE PRODUCTION INSPECTOR [address] [place] [address] Social History Tobacco Use Types Packs/Day Years [...] 02/15/2019 Lack of Transportation (Non-Medical) No 02/15/2019 [place] Depression Scale Answer Date Recorded [place] Depression Score 2 09/21/2019 Last EPDS Self [...] have Coronavirus / COVID-19? No / Unsure 04/26/2020 9:31 AM CDT documented as of this encounter Miscellaneous Notes * Telephone Encounter - Valery Hogue RN - 04/27/2020 7:49 AM CDT This patient has never been to [facility], not sure why this came here. Please * Telephone Encounter - Marilee Paredes RN - 04/26/2020 4:38 PM CDT VV today, Dx paronychia of finger, Bactrim DS prescribed. documented in this encounter Plan of Treatment Upcoming Encounters Date Type Department Care Team (Late st Contact Info) Description 03/17/2024 9:00 AM CDT Virtual Visit [facility] [address] [place] [phone] Chanel Asher PA-C [address] [place] [address] [phone] 03/17/2024 9:45 AM CDT Office Visit M [address] [place] [phone] Jacob Carmona MD [address] [place], [place] [phone] documented as of this encounter Visit Diagnoses Not on filedocumented in this encounter Additional Health Concerns Infection Onset Date Last Indicated Resolved Time Rule Out COVID-19 01/14/2021 01/14/2021 01/15/2021 3:32 PM CDT Rule Out C-difficile 02/26/2022 02/26/2022 022 1:52 PM CDT C-difficile 02/26/2022 02/26/2022 03/28/2022 11:4 1 PM CDT Rule Out C-difficile 09/10/2022 09/10/2022 023 5:27 PM PIT CLERK C-difficile 09/10/2022 09/10/2022 10/10/2022 11:3 9 PM CDT Assessment Noted Time PHQ-9 Depression Total Score: 2 12/08/19 20 7:04 AM CDT documented as of this encounter Care Teams Plastic Production Machine Setter Relationship Specialty Start Date End Date Annalisa Mark APRN OUTSIDE PRODUCTION INSPECTOR PCP - General Nurse Practitioner 03/22/15 06/29/22 Jacob Carmona MD [address] [place] [address] PCP - General 06/30/22 08/28/22 [facility] [address] [place] [address] PCP - General 08/29/22 01/18/23 Lisa Wright PA-C [address] [place] [address] PCP - General Family Medicine 01/19/23 Annalisa Mark APRN OUTSIDE PRODUCTION INSPECTOR Assigned PCP 01/22/20 02/21/22 Jacob Carmona MD [address] [place] [address] Assigned OBGYN Provider 05/18/20 Leonor Burgos MD PRIMARY ENT [address] [facility] [address] [place] [address] Assigned PCP 02/22/22 05/16/22 Annalisa Mark APRN OUTSIDE PRODUCTION INSPECTOR Assigned PCP 05/17/22 08/15/22 Leonor Burgos MD PRIMARY ENT [address] [place] [address] Assigned PCP 08/16/22 08/29/22 Annalisa Mark APRN OUTSIDE PRODUCTION INSPECTOR [address] [place] [address] Assigned PCP 08/30/22 11/21/22 Curtis Núñez MD [address] [facility] 276 [place] [address] Assigned Pulmonology Provider 09/13/22 Leonor Burgos MD PRIMARY ENT [address] [facility] [address] [place] [address] Assigned PCP 11/22/22 11/28/22 Annalisa Mark APRN OUTSIDE PRODUCTION INSPECTOR Assigned PCP 11/29/22 01/23/23 Lisa Wright PA-C [address] [place] [address] Assigned PCP 01/24/23 documented as of this encounter
--- OUTSIDE RECORDS SUMMARY | 2024-03-15 08:46 | XMS_ITS | Encounter Summary ---
Author Organization [facility] Address [address] [place] [address]. [place] [address] Care Team Providers Care Cage Unloader Name Role Phone DeedeeAnnalisa dean APRN, CNP Primary Care Provi miguel Unavailable DeedeeAnnalisa APRN, CNP Unavailable Un available SabJacob sylvester MD Unavailable [phone] Leonor Burgos MD Unavailable + DeedeeAnnalisa APRN, CNP Unavailable Un available Jacob Carmona MD Primary Care Provider Leonor Burgos MD Unavailable + [facility] Primary Care Provider Annalisa Mark APRN, CNP Unavailable Un available Curtis Núñez MD Unavailable [phone] Leonor Burgos MD Unavailable + Annalisa Mark APRN, CNP Unavailable Un available Lisa Wright PA-C Primary Care Provider Lisa Wright PA-C Unavailable [phone] Reason for Visit * Reason Onset Date Comments MyChart Communication 12/27/2020 Encounter Details Date Type Department Care Team (Latest Contact Info) Description 12/27/2020 MyC Medical Advice [address] [address] Leonor Burgos MD PRIMARY ENT [address] [place] [address] MyChart Communication Social History Tobacco Use Types Packs/Day Years Used Date Smoking Tobacco: Never Smokeless Tobacco: Never Alcohol Use Standard Drinks/Week Comments Yes 0 (1 standard drink = 0.6 oz pur e alcohol) Occaisional Overall Financial Resource Strain (CARDIA) Answe r Date Recorded Difficulty of Paying Living Expenses Not hard at all 02/15/2019 PHQ-2 Answer Date Recorded PHQ-2 Score 0 11/13/2020 Hunger Vital Sign Answer Date Recorded Worried About Running Out of Food in the Last Ye ar Never true 02/15/2019 Ran Out of Food in the Last Year Never true 02/15/2019 PRAPARE - Transportation Answer Date Re corded Lack of Transportation (Medical) No 02/15/2019 Lack of Transportation (Non-Medical) No 02/15/2019 [place] Depression Scale Answer Date Recorded [place] Depression Score 2 09/21/2019 Last EPDS Self [...] have Coronavirus / COVID-19? No / Unsure 12/20/2020 12:05 PM CDT documented as of this encounter Plan of Treatment Upcoming Encounters Date Type Department Care Team (Late st Contact Info) Description 03/17/2024 9:00 AM CDT Virtual Visit [facility] [address] [place] [phone] Chanel Asher PA-C [id number] [place] [phone] 03/17/2024 9:45 AM CDT Office Visit [facility] [address] [facility] [address] [place] [address] Jacob Carmona MD [address] [place], [place] [address] documented as of this encounter Visit Diagnoses Not on filedocumented in this encounter Additional Health Concerns Infection Onset Date Last Indicated Resolved Time Rule Out COVID-19 01/14/2021 01/14/2021 01/15/2021 3:32 PM CDT Rule Out C-difficile 02/26/2022 02/26/2022 022 1:52 PM CDT C-difficile 02/26/2022 02/26/2022 03/28/2022 11:4 1 PM CDT Rule Out C-difficile 09/10/2022 09/10/2022 023 5:27 PM PRISON LIBRARIAN C-difficile 09/10/2022 09/10/2022 10/10/2022 11:3 9 PM CDT Assessment Noted Time PHQ-9 Depression Total Score: 2 11/15/19 7:03 AM CDT documented as of this encounter Care Teams Cage Unloader Relationship Specialty Start Date End Date Annalisa Mark APRN INSIDE SALES REPRESENTATIVE PCP - General Nurse Practitioner 03/22/15 06/29/22 Jacob Carmona MD [address] [place], [place] [address] PCP - General 06/30/22 08/28/22 Clinic - [facility] [id number] [place] [id number] PCP - General 08/29/22 01/18/23 Lisa Wright PA-C [address] [place] [address] PCP - General Family Medicine 01/19/23 Annalisa Mark APRN INSIDE SALES REPRESENTATIVE Assigned PCP 01/22/20 02/21/22 Jacob Carmona MD [address] [place], [place] [address] Assigned OBGYN Provider 05/18/20 Leonor Burgos MD PRIMARY [place]NT [address] [place] [address] Assigned PCP 02/22/22 05/16/22 Annalisa Mark APRN INSIDE SALES REPRESENTATIVE Assigned PCP 05/17/22 08/15/22 Leonor Burgos MD PR[facility] [place]NT [address] [place] [address] Assigned PCP 08/16/22 08/29/22 Annalisa Mark APRN INSIDE SALES REPRESENTATIVE [address] [place] [address] Assigned PCP 08/30/22 11/21/22 Curtis Núñez MD [address] [place] [address] [address] [place], [place] 3[address] Assigned Pulmonology Provider 09/13/22 Leonor Burgos MD PRIMARY ENT [address] [place] [address] Assigned PCP 11/22/22 11/28/22 Annalisa Mark APRN INSIDE SALES REPRESENTATIVE Assigned PCP 11/29/22 01/23/23 Lisa Wright PA-C [address] [place] [address] Assigned PCP 01/24/23 documented as of this encounter
--- OUTSIDE RECORDS SUMMARY | 2024-03-15 08:46 | XMS_ITS | Encounter Summary ---
Author Organization [place] Address [address] [place] [address]. [place] [address] Care Team Providers Care Language Specialist Name Role Phone DeedeeAnnalisa dean APRN, CNP Primary Care Provi miguel Unavailable DeedeeAnnalisa dean APRN, CNP Unavailable Un available Jacob Carmona MD Unavailable [phone] Leonor uBrgos MD Unavailable + DeedeeAnnalisa APRN, CNP Unavailable Un available Jacob Carmona MD Primary Care Provider Leonor Burgos MD Unavailable + [facility] Primary Care Provider Annalisa Mark APRN, CNP Unavailable Un available Curtis Núñez MD Unavailable [phone] Leonor Burgos MD Unavailable + DeedeeAnnalisa dean APRN, CNP Unavailable Un available Lisa Wright PA-C Primary Care Provider Lisa Wright PA-C Unavailable [phone] Encounter Details Date Type Department Care Team (Late st Contact Info) Description 12/04/2020 MyC Medical Advice [facility] [address] [facility] [address] [place] [address] Jacob Carmona MD [address] [place] [address] Social History Tobacco Use Types Packs/Day Years [...] 02/15/2019 Lack of Transportation (Non-Medical) No 02/15/2019 [place] Depression Scale Answer Date Recorded [place] Depression Score 2 09/21/2019 Last EPDS Self [...] have Coronavirus / COVID-19? No / Unsure 11/13/2020 8:03 AM CDT documented as of this encounter Plan of Treatment Upcoming Encounters Date Type Department Care Team (Late st Contact Info) Description 03/17/2024 9:00 AM CDT Virtual Visit [address] [address] Chanel Asher PA-C [address] [place] [address] 03/17/2024 9:45 AM CDT Office Visit [facility] [address] [facility] [address] [place] [phone] Jacob Carmona MD [address] [place], [place] [address] documented as of this encounter Visit Diagnoses Not on filedocumented in this encounter Additional Health Concerns Infection Onset Date Last Indicated Resolved Time Rule Out COVID-19 01/14/2021 01/14/2021 01/15/2021 3:32 PM CDT Rule Out C-difficile 02/26/2022 02/26/2022 022 1:52 PM CDT C-difficile 02/26/2022 02/26/2022 03/28/2022 11:4 1 PM CDT Rule Out C-difficile 09/10/2022 09/10/2022 023 5:27 PM BANKING MANAGEMENT CONSULTING MANAGER C-difficile 09/10/2022 09/10/2022 10/10/2022 11:3 9 PM CDT Assessment Noted Time PHQ-9 Depression Total Score: 2 11/15/19 21 7:03 AM CDT documented as of this encounter Care Teams Language Specialist Relationship Specialty Start Date End Date Annalisa Mark APRN CONCRETE PUMP OPERATOR PCP - General Nurse Practitioner 03/22/15 06/29/22 Jacob Carmona MD [address] [place] [address] PCP - General 06/30/22 08/28/22 [facility] [address] [place] [address] PCP - General 08/29/22 01/18/23 Lisa Wright PA-C [address] [place] [address] PCP - General Family Medicine 01/19/23 Annalisa Mark APRN CONCRETE PUMP OPERATOR Assigned PCP 01/22/20 02/21/22 Jacob Carmona MD [address] [place] [address] Assigned OBGYN Provider 05/18/20 Leonor Burgos MD PRIMARY ENT [address] [address] [facility] [facility] [address] [place] [address] Assigned PCP 02/22/22 05/16/22 Annalisa Mark APRN CONCRETE PUMP OPERATOR Assigned PCP 05/17/22 08/15/22 Leonor Burgos MD PRIMARY ENT [address] [place] [address] Assigned PCP 08/16/22 08/29/22 Annalisa Mark APRN CONCRETE PUMP OPERATOR [address] [place] [address] Assigned PCP 08/30/22 11/21/22 Curtis Núñez MD [address] [place] [address] 276 [place], [place] [address] Assigned Pulmonology Provider 09/13/22 Leonor Burgos MD PRIMARY ENT [address] [place], [place] [address] Assigned PCP 11/22/22 11/28/22 Annalisa Mark APRN CONCRETE PUMP OPERATOR Assigned PCP 11/29/22 01/23/23 Lisa Wright PA-C [address] [place] [address] Assigned PCP 01/24/23 documented as of this encounter
--- OUTSIDE RECORDS SUMMARY | 2024-03-15 08:46 | XMS_ITS | Encounter Summary ---
Author Organization [place] Address [address] [place] [address]. [place] [address] Care Team Providers Care Account Review Specialist Name Role Phone DeedeeAnnalisa dean APRN, CNP Primary Care Provi miguel Unavailable DeedeeAnnalisa dean APRN, CNP Unavailable Un available Jacob Carmona MD Unavailable [phone] Leonor Burgos MD Unavailable + DeedeeAnnalisa APRN, CNP Unavailable Un available Jacob Carmona MD Primary Care Provider Leonor Burgos MD Unavailable + [facility] Primary Care Provider Annalisa Mark APRN, CNP Unavailable Un available Curtis Núñez MD Unavailable [phone] Leonor Burgos MD Unavailable + Annalisa Mark APRN, CNP Unavailable Un available Lisa Wright PA-C Primary Care Provider [phone] Lisa Wright PA-C Unavailable [phone] Encounter Details Date Type Department Care Team (Late st Contact Info) Description 11/07/2020 MyC Medical Advice [facility] [address] [facility] [address] [place] [address] Jacob Carmona MD [address] [place] [address] Social History Tobacco Use Types Packs/Day Years [...] 02/15/2019 Lack of Transportation (Non-Medical) No 02/15/2019 [place] Depression Scale Answer Date Recorded [place] Depression Score 2 09/21/2019 Last EPDS Self [...] have Coronavirus / COVID-19? No / Unsure 10/23/2020 2:55 PM CDT documented as of this encounter Plan of Treatment Upcoming Encounters Date Type Department Care Team (Late st Contact Info) Description 03/17/2024 9:00 AM CDT Virtual Visit [address] [address] Chanel Asher PA-C [address] [place] [address] 03/17/2024 9:45 AM CDT Office Visit [facility] [address] [facility] [address] [place] [address] Jacob Carmona MD [address] [place] [address] documented as of this encounter Visit Diagnoses Not on filedocumented in this encounter Additional Health Concerns Infection Onset Date Last Indicated Resolved Time Rule Out COVID-19 01/14/2021 01/14/2021 01/15/2021 3:32 PM CDT Rule Out C-difficile 02/26/2022 02/26/2022 022 1:52 PM CDT C-difficile 02/26/2022 02/26/2022 03/28/2022 11:4 1 PM CDT Rule Out C-difficile 09/10/2022 09/10/2022 023 5:27 PM CORE SHAPER C-difficile 09/10/2022 09/10/2022 10/10/2022 11:3 9 PM CDT Assessment Noted Time PHQ-9 Depression Total Score: 2 12/08/19 20 7:04 AM CDT documented as of this encounter Care Teams Account Review Specialist Relationship Specialty Start Date End Date Annalisa Mark APRN SLITTER CUT OFF OPERATOR PCP - General Nurse Practitioner 03/22/15 06/29/22 Jacob Carmona MD [address] [place] [address] PCP - General 06/30/22 08/28/22 [facility] [address] [place] [address] PCP - General 08/29/22 01/18/23 Lisa Wright PA-C [address] [place] [address] PCP - General Family Medicine 01/19/23 Annalisa Mark APRN SLITTER CUT OFF OPERATOR Assigned PCP 01/22/20 02/21/22 Jacob Carmona MD [address] [place] [address] Assigned OBGYN Provider 05/18/20 Leonor Burgos MD [facility] [address] [facility] [address] [place] [address] Assigned PCP 02/22/22 05/16/22 Annalisa Mark APRN SLITTER CUT OFF OPERATOR Assigned PCP 05/17/22 08/15/22 Leonor Burgos MD PRIMARY ENT [address] [facility] [address] [place] [address] Assigned PCP 08/16/22 08/29/22 Annalisa Mark APRN SLITTER CUT OFF OPERATOR [address] [place] [address] Assigned PCP 08/30/22 11/21/22 Curtis Núñez MD [address] [place] [address] 276 [place], [place] [address] Assigned Pulmonology Provider 09/13/22 Leonor Burgos MD PRIMARY ENT [address] [facility] [address] [place], [place] [address] Assigned PCP 11/22/22 11/28/22 Annalisa Mark APRN SLITTER CUT OFF OPERATOR Assigned PCP 11/29/22 01/23/23 Lisa Wright PA-C [address] [place] [address] Assigned PCP 01/24/23 documented as of this encounter
--- OUTSIDE RECORDS SUMMARY | 2024-03-15 08:46 | XMS_ITS | Encounter Summary ---
Author Organization [facility] Address [address] [place] [address]. [place] [address] Care Team Providers Care Dry Wall Finisher Name Role Phone DeedeeAnnalisa dean APRN, CNP Primary Care Provi miguel Unavailable DeedeeAnnalisa dean APRN, CNP Unavailable Un available SabJacob sylvester MD Unavailable [phone] Leonor Burgos MD Unavailable + DeedeeAnnalisa APRN, CNP Unavailable Un available Jacob Carmona MD Primary Care Provider Leonor Burgos MD Unavailable + [facility] Primary Care Provider Annalisa Mark APRN, CNP Unavailable Un available Curtis Núñez MD Unavailable [phone] Leoonr Burgos MD Unavailable + Annalisa Mark APRN, CNP Unavailable Un available Lisa Wright PA-C Primary Care Provider [phone] Lisa Wright PA-C Unavailable [phone] Reason for Visit * Reason Onset Date Comments MyChart Communication 11/15/2020 OCP questi ons Encounter Details Date Type Department Care Team (Late st Contact Info) Description 11/15/2020 MyC Medical Advice [facility] [address] [facility] [address] [place] [address] Jacob Carmona MD [address] [place], [place] [address] MyChart Communication (OCP questions) Social History Tobacco Use Types Packs/Day Years [...] 02/15/2019 Lack of Transportation (Non-Medical) No 02/15/2019 [place] Depression Scale Answer Date Recorded [place] Depression Score 2 09/21/2019 Last EPDS Self [...] encounter Miscellaneous Notes * Telephone Encounter - Jacob Carmona MD - 11/16/2020 11:54 AM CDT Spoke with patient. Questions addressed. If she remains compliant with daily OCP use the risk of is very low. * Telephone Encounter - Mary Lou Petty RN - 11/16/2020 8:29 AM CDT Please see mychart and advise. Mary Lou Petty RN documented in this encounter Plan of Treatment Upcoming Encounters Date Type Department Care Team (Late st Contact Info) Description 03/17/2024 9:00 AM CDT Virtual Visit [address] [phone] Chanel Asher PA-C [id number] [place] [phone] 03/17/2024 9:45 AM CDT Office Visit [address] [place] [phone] Jacob Carmona MD [address] [place] [address] documented as of this encounter Visit Diagnoses Not on filedocumented in this encounter Additional Health Concerns Infection Onset Date Last Indicated Resolved Time Rule Out COVID-19 01/14/2021 01/14/2021 01/15/2021 3:32 PM CDT Rule Out C-difficile 02/26/2022 02/26/2022 022 1:52 PM CDT C-difficile 02/26/2022 02/26/2022 03/28/2022 11:4 1 PM CDT Rule Out C-difficile 09/10/2022 09/10/2022 023 5:27 PM INVENTORY CLERK C-difficile 09/10/2022 09/10/2022 10/10/2022 11:3 9 PM CDT Assessment Noted Time PHQ-9 Depression Total Score: 2 11/15/19 21 7:03 AM CDT documented as of this encounter Care Teams Dry Wall Finisher Relationship Specialty Start Date End Date Annalisa Mark APRN NUTRITION PARTNER PCP - General Nurse Practitioner 03/22/15 06/29/22 Jacob Carmona MD [address] [place] [address] PCP - General 06/30/22 08/28/22 [facility] [address] [place], [place] [id number] PCP - General 08/29/22 01/18/23 Lisa Wright PA-C [address] [place] [address] PCP - General Family Medicine 01/19/23 Annalisa Mark APRN NUTRITION PARTNER Assigned PCP 01/22/20 02/21/22 Jacob Carmona MD [address] [place] [address] Assigned OBGYN Provider 05/18/20 Leonor Burgos MD PRIMARY ENT [address] [place] [address] Assigned PCP 02/22/22 05/16/22 Annalisa Mark APRN NUTRITION PARTNER Assigned PCP 05/17/22 08/15/22 Leonor Burgos MD PRIMARY ENT [address] [place] [address] Assigned PCP 08/16/22 08/29/22 Annalisa Mark APRN NUTRITION PARTNER [address] [place] [address] Assigned PCP 08/30/22 11/21/22 Curtis Núñez MD [address] [place] [address] 276 [place], [place] [address] Assigned Pulmonology Provider 09/13/22 Leonor Burgos MD PRIMARY ENT [address] [place] [address] [address] [place] [address] Assigned PCP 11/22/22 11/28/22 Annalisa Mark APRN NUTRITION PARTNER Assigned PCP 11/29/22 01/23/23 Lisa Wright PA-C [address] [place] [address] Assigned PCP 01/24/23 documented as of this encounter
--- OUTSIDE RECORDS SUMMARY | 2024-03-15 08:46 | XMS_ITS | Encounter Summary ---
Author Organization [place] Address [address] [place] [address]. [place] [address] Care Team Providers Care Industrial Roof Plumber Name Role Phone DeedeeAnnalisa dean APRN, CNP Primary Care Provi miguel Unavailable DeedeeAnnalisa dean APRN, CNP Unavailable Un available Jacob Carmona MD Unavailable [phone] Leonor Burgos MD Unavailable + DeedeeAnnalisa APRN, CNP Unavailable Un available Jacob Carmona MD Primary Care Provider Leonor Burgos MD Unavailable + [facility] Primary Care Provider Annalisa Mark APRN, CNP Unavailable Un available Curtis Núñez MD Unavailable [phone] Leonor Burgos MD Unavailable + Annalisa Mark APRN, CNP Unavailable Un available Lisa Wright PA-C Primary Care Provider Lisa Wright PA-C Unavailable [phone] Encounter Details Date Type Department Care Team (Late st Contact Info) Description 10/10/2020 MyC Medical Advice [facility] [address] [facility] [address] [place] [address] Jacob Carmona MD [address] [place] [address] Social History Tobacco Use Types Packs/Day Years [...] 02/15/2019 Lack of Transportation (Non-Medical) No 02/15/2019 [place] Depression Scale Answer Date Recorded [place] Depression Score 2 09/21/2019 Last EPDS Self [...] 03/17/2024 9:00 AM CDT Virtual Visit [address] [address] Chanel Asher PA-C [address] [place] [address] 03/17/2024 9:45 AM CDT Office Visit [facility] [address] [facility] [address] [place] [phone] Jacob Carmona MD [address] [place] [address] documented as of this encounter Visit Diagnoses Not on filedocumented in this encounter Additional Health Concerns Infection Onset Date Last Indicated Resolved Time Rule Out COVID-19 01/14/2021 01/14/2021 01/15/2021 3:32 PM CDT Rule Out C-difficile 02/26/2022 02/26/2022 022 1:52 PM CDT C-difficile 02/26/2022 02/26/2022 03/28/2022 11:4 1 PM CDT Rule Out C-difficile 09/10/2022 09/10/2022 023 5:27 PM VENEER SLICING 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 C-difficile 09/10/2022 09/10/2022 10/10/2022 11:3 9 PM CDT Assessment Noted Time PHQ-9 Depression Total Score: 2 12/08/19 20 7:04 AM CDT documented as of this encounter Care Teams Industrial Roof Plumber Relationship Specialty Start Date End Date Annalisa Mark APRN NURSE PARALEGAL PCP - General Nurse Practitioner 03/22/15 06/29/22 Jacob Carmona MD [address] [place] [address] PCP - General 06/30/22 08/28/22 [facility] [address] [place] [address] PCP - General 08/29/22 01/18/23 Lisa Wright PA-C [address] [place] [address] PCP - General Family Medicine 01/19/23 Annalisa Mark APRN NURSE PARALEGAL Assigned PCP 01/22/20 02/21/22 Jacob Carmona MD [address] [place] [address] Assigned OBGYN Provider 05/18/20 Leonor Burgos MD [facility] [address] [facility] [address] [place] [address] Assigned PCP 02/22/22 05/16/22 Annalisa Mark APRN NURSE PARALEGAL Assigned PCP 05/17/22 08/15/22 Leonor Burgos MD PRIMARY ENT [address] [facility] [address] [place] [address] Assigned PCP 08/16/22 08/29/22 Annalisa Mark APRN NURSE PARALEGAL [address] [place] [address] Assigned PCP 08/30/22 11/21/22 Curtis Núñez MD [address] [place] [address] 276 [place], [place] [address] Assigned Pulmonology Provider 09/13/22 Leonor Burgos MD PRIMARY ENT [address] [facility] [address] [place], [place] [address] Assigned PCP 11/22/22 11/28/22 Annalisa Mark APRN NURSE PARALEGAL Assigned PCP 11/29/22 01/23/23 Lisa Wright PA-C [address] [place] [address] Assigned PCP 01/24/23 documented as of this encounter
--- OUTSIDE RECORDS SUMMARY | 2024-03-15 08:46 | XMS_ITS | Encounter Summary ---
Author Organization [facility] Address [address] [place] [address]. [place] [address] Care Team Providers Care Sales And Service Advisor Name Role Phone DeedeeAnnalisa dean APRN, CNP Primary Care Provi miguel Unavailable DeedeeAnnalisa dean APRN, CNP Unavailable Un available Jacob Carmona MD Unavailable Leonor Burgos MD Unavailable + DeedeeAnnalisa APRN, CNP Unavailable Un available Jacob Carmona MD Primary Care Provider Leonor Burgos MD Unavailable + [facility] Primary Care Provider Annalisa Mark APRN, CNP Unavailable Un available Curtis Núñez MD Unavailable [phone] Leonor Burgos MD Unavailable + Annalisa Mark APRN, CNP Unavailable Un available Lisa Wright PA-C Primary Care Provider Lisa Wright PA-C Unavailable [phone] Encounter Details Date Type Department Care Team (Late st Contact Info) Description 10/10/2020 MyC Medical Advice [facility] [address] [facility] [address] [place] [address] Jacob Carmona MD [address] [place] [address] Social History Tobacco Use Types Packs/Day Years [...] 02/15/2019 Lack of Transportation (Non-Medical) No 02/15/2019 [place] Depression Scale Answer Date Recorded [place] Depression Score 2 09/21/2019 Last EPDS Self [...] Description 03/17/2024 9:00 AM CDT Virtual Visit [address] [address] Chanel Asher PA-C [address] [place] [address] 03/17/2024 9:45 AM CDT Office Visit [facility] [address] [facility] [address] [place] [address] Jacob Carmona MD [address] [place] [address] documented as of this encounter Visit Diagnoses Not on filedocumented in this encounter Additional Health Concerns Infection Onset Date Last Indicated Resolved Time Rule Out COVID-19 01/14/2021 01/14/2021 01/15/2021 3:32 PM CDT Rule Out C-difficile 02/26/2022 02/26/2022 022 1:52 PM CDT C-difficile 02/26/2022 02/26/2022 03/28/2022 11:4 1 PM CDT Rule Out C-difficile 09/10/2022 09/10/2022 023 5:27 PM GRILL ATTENDANT C-difficile 09/10/2022 09/10/2022 10/10/2022 11:3 9 PM CDT Assessment Noted Time PHQ-9 Depression Total Score: 2 12/08/19 20 7:04 AM CDT documented as of this encounter Care Teams Sales And Service Advisor Relationship Specialty Start Date End Date Annalisa Mark APRN EMERGENCY DEPARTMENT PCP - General Nurse Practitioner 03/22/15 06/29/22 Jacob Carmona MD [address] [place] [address] PCP - General 06/30/22 08/28/22 [facility] [address] [place] [address] PCP - General 08/29/22 01/18/23 Lisa Wright PA-C [address] [place] [address] PCP - General Family Medicine 01/19/23 Annalisa Mark APRN EMERGENCY DEPARTMENT Assigned PCP 01/22/20 02/21/22 Jacob Carmona MD [address] [place] [address] Assigned OBGYN Provider 05/18/20 Leonor Burgos MD [facility] [address] [facility] [address] [place] [address] Assigned PCP 02/22/22 05/16/22 Annalisa Mark APRN EMERGENCY DEPARTMENT Assigned PCP 05/17/22 08/15/22 Leonor Burgos MD PRIMARY ENT [address] [facility] [address] [place] [address] Assigned PCP 08/16/22 08/29/22 Annalisa Mark APRN EMERGENCY DEPARTMENT [address] [place] [address] Assigned PCP 08/30/22 11/21/22 Curtis Núñez MD [address] [place] [address] 276 [place], [place] [address] Assigned Pulmonology Provider 09/13/22 Leonor Burgos MD PRIMARY ENT [address] [facility] [address] [place], [place] [address] Assigned PCP 11/22/22 11/28/22 Annalisa Mark APRN EMERGENCY DEPARTMENT Assigned PCP 11/29/22 01/23/23 Lisa Wright PA-C [address] [place] [address] Assigned PCP 01/24/23 documented as of this encounter
--- OUTSIDE RECORDS SUMMARY | 2024-03-15 08:46 | XMS_ITS | Encounter Summary ---
Author Organization [place] Address [address] [place] [address]. [place] [address] Care Team Providers Care Dog Or Animal Sitter Name Role Phone DeedeeAnnalisa dean APRN, CNP Primary Care Provi miguel Unavailable DeedeeAnnalisa dean APRN, CNP Unavailable Un available SabJacob sylvester MD Unavailable [phone] Leonor Burgos MD Unavailable + DeedeeAnnalisa APRN, CNP Unavailable Un available Jacob Carmona MD Primary Care Provider Leonor Burgos MD Unavailable + [facility] Primary Care Provider Annalisa Mark APRN, CNP Unavailable Un available Curtis Núñez MD Unavailable +[phone] Leonor Burgos MD Unavailable + Annalisa Mark APRN, CNP Unavailable Un available Lisa Wright PA-C Primary Care Provider [phone] Lisa Wright PA-C Unavailable Reason for Visit * Reason Onset Date Comments MyChart Communication 03/26/2021 weight Encounter Details Date Type Department Care Team (Latest Contact Info) Description 03/26/2021 [facility] Medical Advice [address] [address] Annalisa Mark APRN CNP [employer] Communication (weight) Social History Tobacco Use Types Packs/Day Years [...] 02/15/2019 Lack of Transportation (Non-Medical) No 02/15/2019 [place] Depression Scale Answer Date Recorded [place] Depression Score 2 09/21/2019 Last EPDS Self [...] Encounter - Annalisa Mark APRN CNP - 03/26/2021 8:34 PM CDT Responded to [employer] message. Annalisa Mark CNP * Telephone Encounter - Chiqui Henley RN - 03/26/2021 8:04 AM CDT Routed to , see [facility] appointment update and advise weight concern Wt Readings from Last 2 Encounters: 02/12/21 49.9 kg (110 lb) 01/14/21 50.8 kg (112 lb) Chiqui Henley RN, BSN Message handled by CLINIC NURSE. documented in this encounter Plan of Treatment Upcoming Encounters Date Type Department Care Team (Late st Contact Info) Description 03/17/2024 9:00 AM CDT Virtual Visit [facility] [address] [place] [phone] Chanel Asher PA-C [address] [place] [phone] 03/17/2024 9:45 AM CDT Office Visit [facility] [address] [place] [address] [address] [place] [phone] Jacob Carmona MD [address] [place], [place] [address] documented as of this encounter Visit Diagnoses Not on filedocumented in this encounter Additional Health Concerns Infection Onset Date Last Indicated Resolved Time Rule Out C-difficile 02/26/2022 02/26/2022 022 1:52 PM CDT C-difficile 02/26/2022 02/26/2022 03/28/2022 11:4 1 PM CDT Rule Out C-difficile 09/10/2022 09/10/2022 023 5:27 PM SPORTS ANNOUNCER C-difficile 09/10/2022 09/10/2022 10/10/2022 11:3 9 PM CDT Assessment Noted Time PHQ-9 Depression Total Score: 2 03/25/20 2:42 PM CDT documented as of this encounter Care Teams Dog Or Animal Sitter Relationship Specialty Start Date End Date Annalisa Mark APRN CATALOG SPECIALIST PCP - General Nurse Practitioner 03/22/15 06/29/22 Jacob Carmona MD [address] [place] [address] PCP - General 06/30/22 08/28/22 [facility] [address] [place] [address] PCP - General 08/29/22 01/18/23 Lisa Wright PA-C [address] [place] [address] PCP - General Family Medicine 01/19/23 Annalisa Mark APRN CATALOG SPECIALIST Assigned PCP 01/22/20 02/21/22 Jacob Carmona MD [address] [place] [address] Assigned OBGYN Provider 05/18/20 Leonor Burgos MD [facility] [address] [place] [address] Assigned PCP 02/22/22 05/16/22 Annalisa Mark APRN CATALOG SPECIALIST Assigned PCP 05/17/22 08/15/22 Leonor Burgos MD [facility] [address] [place] [address] Assigned PCP 08/16/22 08/29/22 Annalisa Mark APRN CATALOG SPECIALIST [address] [place] [address] Assigned PCP 08/30/22 11/21/22 Curtis Núñez MD [address] [facility] [address] [place] [address] Assigned Pulmonology Provider 09/13/22 Leonor Burgos MD [facility] [address] [place], [place] [address] Assigned PCP 11/22/22 11/28/22 Annalisa Mark APRN CATALOG SPECIALIST Assigned PCP 11/29/22 01/23/23 Lisa Wright PA-C [address] [place] [address] Assigned PCP 01/24/23 documented as of this encounter
--- OUTSIDE RECORDS SUMMARY | 2024-03-15 08:47 | XMS_ITS | Encounter Summary ---
Author Organization [place] Address [address] [place] [address]. [place] [address] Care Team Providers Care Superintendent Terminal Name Role Phone Annalisa Mark APRN, CNP Primary Care Provi miguel Unavailable Mukul Rivas PA-C Unavailable + [phone] DeedeeAnnalisa dean APRN, CNP Unavailable Un available Mukul Rivas PA-C Unavailable + [phone] DeedeeAnnalisa dean APRN, CNP Unavailable Un available Jacob Carmona MD Unavailable + [phone] Leonor Burgos MD Unavailable + DeedeeAnnalisa APRN, CNP Unavailable Un available Jacob Carmona MD Primary Care Provider Leonor Burgos MD Unavailable + [facility] Primary Care Provider DeedeeAnnalisa dean APRN, CNP Unavailable Un available Curtis Núñez MD Unavailable [phone] Leonor Burgos MD Unavailable + DeedeeAnnalisa APRN, CNP Unavailable Un available Lisa Wright PA-C Primary Care Provider KyleNormLisakendall Moore PA-C Unavailable [phone] Encounter Details Date Type Department Care Team (Late st Contact Info) Description 09/01/2019 MyC Medical Advice M [facility] [address] [facility] [address] [place] [address] Jacob Carmona MD [address] [place] [address] Social History Tobacco Use Types Packs/Day [...] 02/15/2019 Lack of Transportation (Non-Medical) No 02/15/2019 Education Answer Date Recorded What is the highest level of school you have completed or the highest degree you have received? Bachelor's degree (e.g., BA, AB, BS) 02/15/2019 Comments Yes Sex and Gender Information Value Date Recorded Sex Assigned at Female 03/25/2021 2:01 PM CDT Gender Identity Female 03/25/2021 2:01 PM CDT Sexual Orientation Straight 03/25/2021 2: 01 PM CDT documented as of this encounter Plan of Treatment Upcoming Encounters Date Type Department Care Team (Late st Contact Info) Description 03/17/2024 9:00 AM CDT Virtual Visit [facility] [address] [place] [phone] Chanel Asher PA-C [address] [place] [address] [phone] 03/17/2024 9:45 AM CDT Office Visit [facility] [address] [facility] [address] [place] [phone] Jacob Carmona MD [address] [place], [place] [address] documented as of this encounter Visit Diagnoses Not on filedocumented in this encounter Additional Health Concerns Infection Onset Date Last Indicated Resolved Time Rule Out COVID-19 01/14/2021 01/14/2021 01/15/2021 3:32 PM CDT Rule Out C-difficile 02/26/2022 02/26/2022 022 1:52 PM CDT C-difficile 02/26/2022 02/26/2022 03/28/2022 11:4 1 PM CDT Rule Out C-difficile 09/10/2022 09/10/2022 023 5:27 PM ARBOR END MAINSPRING FORMER C-difficile 09/10/2022 09/10/2022 10/10/2022 11:3 9 PM CDT Assessment Noted Time PHQ-9 Depression Total Score: 3 12/08/19 19 7:05 AM CDT documented as of this encounter Care Teams Superintendent Terminal Relationship Specialty Start Date End Date Annalisa Mark APRN CNP PCP - General Nurse Practitioner 03/22/15 06/29/22 Jacob Carmona MD [address] [place] [address] PCP - General 06/30/22 08/28/22 [facility] [address] [place], [place] [phone] PCP - General 08/29/22 01/18/23 Lisa Wright PA-C [address] [place] [address] PCP - General Family Medicine 01/19/23 Mukul Rivas PA-C [address] [place] [address] Assigned PCP 07/03/19 11/19/19 Annalisa Mark APRN WIRE STITCHER MACHINE Assigned PCP 11/20/19 12/10/19 Mukul Rivas PA-C [address] [place] [address], [place] [address] Assigned PCP 12/11/19 01/21/20 Annalisa Mark APRN WIRE STITCHER MACHINE Assigned PCP 01/22/20 02/21/22 Jacob Carmona MD [address] [place] [address] Assigned OBGYN Provider 05/18/20 Leonor Burgos MD [facility] [address] [place] [address] Assigned PCP 02/22/22 05/16/22 Annalisa Mark APRN WIRE STITCHER MACHINE Assigned PCP 05/17/22 08/15/22 Leonor Burgos MD [facility] [address] [place] [address] Assigned PCP 08/16/22 08/29/22 Annalisa Mark APRN WIRE STITCHER MACHINE [address] [facility] [place] [address] Assigned PCP 08/30/22 11/21/22 Curtis Núñez MD [address] [facility] [address] [place] [address] Assigned Pulmonology Provider 09/13/22 Leonor Burgos MD [facility] [address] [place], [place] [address] Assigned PCP 11/22/22 11/28/22 Annalisa Mark APRN WIRE STITCHER MACHINE Assigned PCP 11/29/22 01/23/23 Lisa Wright, [place] [address] [place] [address] Assigned PCP 01/24/23 documented as of this encounter
--- OUTSIDE RECORDS SUMMARY | 2024-03-15 08:47 | XMS_ITS | Encounter Summary ---
Author Organization [place] Address [address] [place] [address]. [place] [address] Care Team Providers Care Chancellor Name Role Phone DeedeeAnnalisa dean APRN, CNP Primary Care Provi miguel Unavailable DeedeeAnnalisa APRN, CNP Unavailable Un available SabJacob sylvester MD Unavailable Leonor Burgos MD Unavailable + DeedeeAnnalisa APRN, CNP Unavailable Un available Jacob Carmona MD Primary Care Provider Leonor Burgos MD Unavailable + [facility] Primary Care Provider Annalisa Makr APRN, CNP Unavailable Un available Curtis Núñez MD Unavailable [phone] Leonor Burgos MD Unavailable + Annalisa Mark APRN, CNP Unavailable Un available Lisa Wright PA-C Primary Care Provider Lisa Wright PA-C Unavailable [phone] Reason for Visit * Reason Onset Date Comments MyChart Communication 02/15/2020 Encounter Details Date Type Department Care Team (Latest Contact Info) Description 02/15/2020 MyC Medical Advice M [facility] [address] [place] [phone] Annalisa Mark APRN GENERATION TECHNOLOGIST MyChart Communication Social History Tobacco Use Types [...] 02/15/2019 Lack of Transportation (Non-Medical) No 02/15/2019 [place] Depression Scale Answer Date Recorded [place] Depression Score 2 09/21/2019 Last EPDS Self [...] have Coronavirus / COVID-19? No / Unsure 02/12/2020 9:43 AM CDT documented as of this encounter Plan of Treatment Upcoming Encounters Date Type Department Care Team (Late st Contact Info) Description 03/17/2024 9:00 AM CDT Virtual Visit [facility] [address] [place] [phone] Chanel Asher, [place]ARC[place] [id number] [place] [address] 03/17/2024 9:45 AM CDT Office Visit [facility] [address] [facility] [address] [place] [phone] Jacob Carmona MD [address] [place] [address] documented as of this encounter Visit Diagnoses Not on filedocumented in this encounter Additional Health Concerns Infection Onset Date Last Indicated Resolved Time Rule Out COVID-19 01/14/2021 01/14/2021 01/15/2021 3:32 PM CDT Rule Out C-difficile 02/26/2022 02/26/2022 022 1:52 PM CDT C-difficile 02/26/2022 02/26/2022 03/28/2022 11:4 1 PM CDT Rule Out C-difficile 09/10/2022 09/10/2022 023 5:27 PM BUILDER BEAM C-difficile 09/10/2022 09/10/2022 10/10/2022 11:3 9 PM CDT Assessment Noted Time PHQ-9 Depression Total Score: 2 12/08/19 20 7:04 AM CDT documented as of this encounter Care Teams Chancellor Relationship Specialty Start Date End Date Annalisa Mark APRN GENERATION TECHNOLOGIST PCP - General Nurse Practitioner 03/22/15 06/29/22 Jacob Carmona MD [address] [place] [address] PCP - General 06/30/22 08/28/22 [facility] [address] [place] [address] PCP - General 08/29/22 01/18/23 Lisa Wright PA-C [address] [place] [address] PCP - General Family Medicine 01/19/23 Annalisa Mark APRN GENERATION TECHNOLOGIST Assigned PCP 01/22/20 02/21/22 Jacob Carmona MD [address] [place], [place] [address] Assigned OBGYN Provider 05/18/20 Leonor Burgos MD [facility] [address] [place] [address] Assigned PCP 02/22/22 05/16/22 Annalisa Mark APRN GENERATION TECHNOLOGIST Assigned PCP 05/17/22 08/15/22 Leonor Burgos MD [facility] [address] [place], [place] [address] Assigned PCP 08/16/22 08/29/22 Annalisa Mark APRN GENERATION TECHNOLOGIST [address] [place] [address] Assigned PCP 08/30/22 11/21/22 Curtis Núñez MD [address] [place] [address] 276 [place] [address] Assigned Pulmonology Provider 09/13/22 Leonor Burgos MD [facility] [address] [place] [address] Assigned PCP 11/22/22 11/28/22 Annalisa Mark APRN GENERATION TECHNOLOGIST Assigned PCP 11/29/22 01/23/23 Lisa Wright PA-C [address] [place] [address] Assigned PCP 01/24/23 documented as of this encounter
--- OUTSIDE RECORDS SUMMARY | 2024-03-15 08:47 | XMS_ITS | Encounter Summary ---
Author Organization [place] Address [address] [place] [address]. [place] [address] Care Team Providers Care Multi Spindle Operator Name Role Phone Annalisa Mark APRN, CNP Primary Care Provi miguel Unavailable Mukul Rivas PA-C Unavailable + [phone] DeedeeAnnalisa dean APRN, CNP Unavailable Un available Mukul Rivas PA-C Unavailable + [phone] DeedeeAnnalisa dean APRN, CNP Unavailable Un available Jacob Carmona MD Unavailable + [phone] Leonor Burgos MD Unavailable + DeedeeAnnalisa APRN, CNP Unavailable Un available Jacob Carmona MD Primary Care Provider Leonor Burgos MD Unavailable + [facility] Primary Care Provider DeedeeAnnalisa dean APRN, CNP Unavailable Un available Curtis Núñez MD Unavailable [phone] Leonor Burgos MD Unavailable + DeedeeAnnalisa APRN, CNP Unavailable Un available Lisa Wright PA-C Primary Care Provider Lisa Wright PA-C Unavailable [phone] Reason for Visit * Reason Onset Date Comments Care 08/04/2019 Encounter Details Date Type Department Care Team (Late Contact Info) Description 08/04/2019 MyC Medical Advice M [facility] [address] [facility] [address] [place] [address] Jacob Carmona MD [address] [place] [address] Care Social History Tobacco Use Types Packs/Day [...] 03/17/2024 9:00 AM CDT Virtual Visit [facility] [address] [place] [phone] Chanel Asher PA-C [address] [place] [address] 03/17/2024 9:45 AM CDT Office Visit [facility] [address] [facility] [address] [place] [phone] Jacob Carmona MD [address] [place] [address] documented as of this encounter Visit Diagnoses Not on filedocumented in this encounter Additional Health Concerns Infection Onset Date Last Indicated Resolved Time Rule Out COVID-19 01/14/2021 01/14/2021 01/15/2021 3:32 PM CDT Rule Out C-difficile 02/26/2022 02/26/2022 022 1:52 PM CDT C-difficile 02/26/2022 02/26/2022 03/28/2022 11:4 1 PM CDT Rule Out C-difficile 09/10/2022 09/10/2022 023 5:27 PM SENIOR JAVA ARCHITECT C-difficile 09/10/2022 09/10/2022 10/10/2022 11:3 9 PM CDT Assessment Noted Time PHQ-9 Depression Total Score: 3 12/08/19 19 7:05 AM CDT documented as of this encounter Care Teams Multi Spindle Operator Relationship Specialty Start Date End Date Annalisa Mark APRN BARREL LOADER PCP - General Nurse Practitioner 03/22/15 06/29/22 Jacob Carmona MD [address] [place] [address] PCP - General 06/30/22 08/28/22 [facility] [address] [place] [address] PCP - General 08/29/22 01/18/23 Lisa Wright PA-C [address] [facility] [place] [address] PCP - General Family Medicine 01/19/23 Mukul Rivas PA-C [address] [place] [address] Assigned PCP 07/03/19 11/19/19 Annalisa Mark APRN BARREL LOADER Assigned PCP 11/20/19 12/10/19 Mukul Rivas PA-C [address] [place] [address], [place] [address] Assigned PCP 12/11/19 01/21/20 Annalisa Mark APRN BARREL LOADER Assigned PCP 01/22/20 02/21/22 Jacob Carmona MD [address] [place], [place] [address] Assigned OBGYN Provider 05/18/20 Leonor Burgos MD [facility] [address] [place] [address] Assigned PCP 02/22/22 05/16/22 Annalisa Mark APRN BARREL LOADER Assigned PCP 05/17/22 08/15/22 Leonor Burgos MD [facility] [address] [place] [address] Assigned PCP 08/16/22 08/29/22 Annalisa Mark APRN BARREL LOADER [address] [place] [address] Assigned PCP 08/30/22 11/21/22 Curtis Núñez MD [address] [facility] 276 [place] [address] Assigned Pulmonology Provider 09/13/22 Leonor Burgos MD [facility] [address] [place] [address] Assigned PCP 11/22/22 11/28/22 Annalisa Mark APRN BARREL LOADER Assigned PCP 11/29/22 01/23/23 Lisa Wright, [place] [address] [place] [address] Assigned PCP 01/24/23 documented as of this encounter
--- OUTSIDE RECORDS SUMMARY | 2024-03-15 08:47 | XMS_ITS | Encounter Summary ---
Author Organization [place] Address [facility] [place] [address] Care Team Providers Care Edger Feeder Name Role Phone DeedeeAnnalisa dean APRN TOW BOAT CAPTAIN Primary Care Provi miguel Unavailable Deedee, Annalisa Peacock APRN TOW BOAT CAPTAIN Unavailable Un available Mukul Rivas PA-C Unavailable + [phone] Deedee, Annalisa Peacock APRN, CNP Unavailable Un available Jacob Carmona MD Unavailable [phone] Leonor Burgos MD Unavailable + DeedeeAnnalisa APRN TOW BOAT CAPTAIN Unavailable Un available Jacob Carmona MD Primary Care Provider Leonor Burgos MD Unavailable + [facility] Primary Care Provider DeedeeAnnalisa dean APRN, CNP Unavailable Un available Curtis Núñez MD Unavailable +[phone] Leonor Burgos MD Unavailable + DeedeeAnnalisa APRN TOW BOAT CAPTAIN Unavailable Un available Lisa Wright PA-C Primary Care Provider [phone] Lisa Wright PA-C Unavailable [phone] Reason for Visit * Reason Onset Date Comments Patient Request 11/20/2019 Encounter Details Date Type Department Care Team (Late st Contact Info) Description 11/20/2019 MyC Medical Advice [address] [phone] Annalisa Mark, JADEN TOW BOAT CAPTAIN Patient Request Social History Tobacco Use Types Packs/Day Years [...] 02/15/2019 Lack of Transportation (Non-Medical) No 02/15/2019 [place] Depression Scale Answer Date Recorded [place] Depression Score 2 09/21/2019 Last EPDS Self [...] have Coronavirus / COVID-19? No / Unsure 11/18/2019 3:13 PM CDT documented as of this encounter Miscellaneous Notes * Telephone Encounter - Emani Cervantes RN - 11/21/2019 9:17 AM CDT Images from the original note were not included. See mychart message below. Additional message added below. Please advise. CHRIST Crawford Rachael A to Annalisa Mark APRN CNP ?? 11/21/19 8:25 AM Hi! ?? Maybe I can be seen to just make sure it's okay? They're is small lump on the bottom of the bone now could be the infection or normal. I am not sure. ?? Thanks, Joanna documented in this encounter Plan of Treatment Upcoming Encounters Date Type Department Care Team (Late st Contact Info) Description 03/17/2024 9:00 AM CDT Virtual Visit [facility] [address] [place] [phone] Chanel Asher PA-C [id number] [place] [phone] 03/17/2024 9:45 AM CDT Office Visit [facility] [address] [facility] [address] [place] [phone] Jacob Carmona MD [address] [place], [place] [address] documented as of this encounter Visit Diagnoses Not on filedocumented in this encounter Additional Health Concerns Infection Onset Date Last Indicated Resolved Time Rule Out COVID-19 01/14/2021 01/14/2021 01/15/2021 3:32 PM CDT Rule Out C-difficile 02/26/2022 02/26/2022 022 1:52 PM CDT C-difficile 02/26/2022 02/26/2022 03/28/2022 11:4 1 PM CDT Rule Out C-difficile 09/10/2022 09/10/2022 023 5:27 PM IRRIGATION WORKER C-difficile 09/10/2022 09/10/2022 10/10/2022 11:3 9 PM CDT Assessment Noted Time PHQ-9 Depression Total Score: 3 12/08/19 19 7:05 AM CDT documented as of this encounter Care Teams Edger Feeder Relationship Specialty Start Date End Date Annalisa Mark APRN TOW BOAT CAPTAIN PCP - General Nurse Practitioner 03/22/15 06/29/22 Jacob Carmona MD [address] [place] [address] PCP - General 06/30/22 08/28/22 [facility] [address] [place], [place] [phone] PCP - General 08/29/22 01/18/23 Lisa Wright PA-C [address] [place] [phone] PCP - General Family Medicine 01/19/23 Annalisa Mark APRN TOW BOAT CAPTAIN Assigned PCP 11/20/19 12/10/19 Mukul Rivas PA-C [address] [place] [address] Assigned PCP 12/11/19 01/21/20 Annalisa Mark APRN TOW BOAT CAPTAIN Assigned PCP 01/22/20 02/21/22 Jacob Carmona MD [address] [place] [address] Assigned OBGYN Provider 05/18/20 Leonor Burgos MD [facility] [address] [place] [address] Assigned PCP 02/22/22 05/16/22 Annalisa Mark APRN TOW BOAT CAPTAIN Assigned PCP 05/17/22 08/15/22 Leonor Burgos MD [facility] [address] [place] [address] Assigned PCP 08/16/22 08/29/22 Annalisa Mark APRN TOW BOAT CAPTAIN [address] [place] [place] [address] Assigned PCP 08/30/22 11/21/22 Curtis Núñez MD [address] [place] [address] 276 [place] [address] Assigned Pulmonology Provider 09/13/22 Leonor Burgos MD [facility] [address] [facility] [address] [place] [address] Assigned PCP 11/22/22 11/28/22 Annalisa Mark APRN TOW BOAT CAPTAIN Assigned PCP 11/29/22 01/23/23 Lisa Wright PA-C [address] [place] [address] Assigned PCP 01/24/23 documented as of this encounter
--- OUTSIDE RECORDS SUMMARY | 2024-03-15 08:47 | XMS_ITS | Encounter Summary ---
Author Organization [place] Address [address] [place] [address]. [place] [address] Care Team Providers Care Claims Representative Name Role Phone Annalisa Mark APRN, CNP Primary Care Provi miguel Unavailable Mukul Rivas PA-C Unavailable + [phone] DeedeeAnnalisa dean APRN, CNP Unavailable Un available Mukul Rivas PA-C Unavailable + [phone] DeedeeAnnalisa dean APRN, CNP Unavailable Un available Jacob Carmona MD Unavailable + [phone] Leonor Burgos MD Unavailable + DeedeeAnnalisa APRN, CNP Unavailable Un available Jacob Carmona MD Primary Care Provider Leonor Burgos MD Unavailable + [facility] Primary Care Provider DeedeeAnnalisa dean APRN, CNP Unavailable Un available Curtis Núñez MD Unavailable +[phone] Leonor Burgos MD Unavailable + DeedeeAnnalisa APRN, CNP Unavailable Un available Lisa Wright-C Primary Care Provider [phone] KyleAngelicatana Moore PA-C Unavailable +[phone] Encounter Details Date Type Department Care Team (Late st Contact Info) Description 07/29/2019 MyC Medical Advice [facility] [place] [address] [facility] [address] [place] [address] Jacob Carmona MD [address] [place] [address] Social History Tobacco Use Types [...] Telephone Encounter - Pamella Chapman RN - 07/29/2019 3:33 PM CST Pt advised of md's message that he sent via routing comment: Hi Dona 33rd%tile is not low. ??It is slightly below average but in no way concerning. ??It is also an estimate so don't take it too literally. Babies are going to grow according to their genetics - who they are. ??7 foot tall basketball players didn't grow that tall because they ate more vitamins - they were meant to be taller people. Your daughter's growth pattern is very much in the normal range. ??I would advise all women to eat a well balanced diet throughout . ??Increasing your calories or taking supplements will notalter her growth rate. ??She's absolutely fine. Dr. Carmona LANCE WEB DESIGNER documented in this encounter Plan of Treatment Upcoming Encounters Date Type Department Care Team (Late st Contact Info) Description 03/17/2024 9:00 AM CDT Virtual Visit [facility] [address] [place] [phone] Chanel Asher PA-C [id number] [place] [address] [phone] 03/17/2024 9:45 AM CDT Office Visit [facility] [address] [facility] [address] [place] [phone] Jacob Carmona MD [address] [place], [place] [address] documented as of this encounter Visit Diagnoses Not on filedocumented in this encounter Additional Health Concerns Infection Onset Date Last Indicated Resolved Time Rule Out COVID-19 01/14/2021 01/14/2021 01/15/2021 3:32 PM CDT Rule Out C-difficile 02/26/2022 02/26/2022 022 1:52 PM CDT C-difficile 02/26/2022 02/26/2022 03/28/2022 11:4 1 PM CDT Rule Out C-difficile 09/10/2022 09/10/2022 023 5:27 PM FREELANCE WEB DESIGNER C-difficile 09/10/2022 09/10/2022 10/10/2022 11:3 9 PM CDT Assessment Noted Time PHQ-9 Depression Total Score: 3 12/08/19 19 7:05 AM CDT documented as of this encounter Care Teams Claims Representative Relationship Specialty Start Date End Date Annalisa Mark APRN LEGAL [place] INTERN PCP - General Nurse Practitioner 03/22/15 06/29/22 Jacob Carmona MD [address] [place] [address] PCP - General 06/30/22 08/28/22 [facility] [address] [place], [place] [phone] PCP - General 08/29/22 01/18/23 Lisa Wright PA-C [address] [place] [address] PCP - General Family Medicine 01/19/23 Mukul Rivas PA-C [address] [place] [address] Assigned PCP 07/03/19 11/19/19 Annalisa Mark APRN LEGAL SUMMER INTERN Assigned PCP 11/20/19 12/10/19 Mukul Rivas PA-C [address] [place] [address] Assigned PCP 12/11/19 01/21/20 Annalisa Mark APRN LEGAL SUMMER INTERN Assigned PCP 01/22/20 02/21/22 Jacob Carmona MD [address] [place] [address] Assigned OBGYN Provider 05/18/20 Leonor Burgos MD [facility] [address] [place] [address] Assigned PCP 02/22/22 05/16/22 Annalisa Mark APRN LEGAL SUMMER INTERN Assigned PCP 05/17/22 08/15/22 Leonor Burgos MD [facility] [address] [place] [address] Assigned PCP 08/16/22 08/29/22 Annalisa Mark APRN LEGAL [place] INTERN [address] [place] [address] Assigned PCP 08/30/22 11/21/22 Curtis Núñez MD [address] [address] [facility] [address] [place] [address] Assigned Pulmonology Provider 09/13/22 Leonor Burgos MD PRIMARY ENT [address] [place] [address] Assigned PCP 11/22/22 11/28/22 Annalisa Mark APRN LEGAL SUMMER INTERN Assigned PCP 11/29/22 01/23/23 Lisa Wright PA-C [address] [facility] [phone] Assigned PCP 01/24/23 documented as of this encounter
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
--- OUTSIDE RECORDS SUMMARY | 2024-03-15 08:47 | XMS_ITS | Encounter Summary ---
Author Organization [place] Address [address] [place] [address]. [place] [address] Care Team Providers Care Valve Repairer Name Role Phone Annalisa Mark APRN, CNP Primary Care Provi miguel Unavailable Mukul Rivas PA-C Unavailable + [phone] DeedeeAnnalisa dean APRN, CNP Unavailable Un available Mukul Rivas PA-C Unavailable + [phone] DeedeeAnnalisa dean APRN, CNP Unavailable Un available Jacob Carmona MD Unavailable + [phone] Leonor Burgos MD Unavailable + DeedeeAnnalisa APRN, CNP Unavailable Un available Jacob Carmona MD Primary Care Provider Leonor Burgos MD Unavailable + [facility] Primary Care Provider DeedeeAnnalisa dean APRN, CNP Unavailable Un available Curtis Núñez MD Unavailable +[phone] Leonor Burgos MD Unavailable + DeedeeAnnalisa APRN, CNP Unavailable Un available Lisa Wright PA-C Primary Care Provider Lisa Wright PA-C Unavailable [phone] Reason for Visit * Reason Onset Date Comments Care 07/26/2019 Encounter Details Date Type Department Care Team (Late Contact Info) Description 07/26/2019 MyC Medical Advice [facility] [address] [facility] [address] [place] [address] Jacob Carmona MD [address] [place] [address] Care Social History Tobacco Use [...] 03/17/2024 9:00 AM CDT Virtual Visit [facility] [address] [place] [phone] Chanel Asher PA-C [address] [place] [address] 03/17/2024 9:45 AM CDT Office Visit [facility] [address] [facility] [address] [place] [phone] Jacob Carmoan MD [address] [place] [address] documented as of this encounter Visit Diagnoses Not on filedocumented in this encounter Additional Health Concerns Infection Onset Date Last Indicated Resolved Time Rule Out COVID-19 01/14/2021 01/14/2021 01/15/2021 3:32 PM CDT Rule Out C-difficile 02/26/2022 02/26/2022 022 1:52 PM CDT C-difficile 02/26/2022 02/26/2022 03/28/2022 11:4 1 PM CDT Rule Out C-difficile 09/10/2022 09/10/2022 023 5:27 PM COTTON CLEANER C-difficile 09/10/2022 09/10/2022 10/10/2022 11:3 9 PM CDT Assessment Noted Time PHQ-9 Depression Total Score: 3 12/08/19 19 7:05 AM CDT documented as of this encounter Care Teams Valve Repairer Relationship Specialty Start Date End Date Annalisa Mark APRN RN BURN PCP - General Nurse Practitioner 03/22/15 06/29/22 Jacob Carmona MD [address] [place] [address] PCP - General 06/30/22 08/28/22 [facility] [address] [place] [address] PCP - General 08/29/22 01/18/23 Lisa Wright PA-C [address] [facility] [place] [address] PCP - General Family Medicine 01/19/23 Mukul Rivas PA-C [address] [place] [address] Assigned PCP 07/03/19 11/19/19 Annalisa Mark APRN RN BURN Assigned PCP 11/20/19 12/10/19 Mukul Rivas PA-C [address] [place] [address], [place] [address] Assigned PCP 12/11/19 01/21/20 Annalisa Mark APRN RN BURN Assigned PCP 01/22/20 02/21/22 Jacob Cramona MD [address] [place], [place] [address] Assigned OBGYN Provider 05/18/20 Leonor Burgos MD PR[facility] [address] [place] [address] Assigned PCP 02/22/22 05/16/22 Annalisa Mark APRN RN BURN Assigned PCP 05/17/22 08/15/22 Leonor Burgos MD [facility] [address] [place] [address] Assigned PCP 08/16/22 08/29/22 Annalisa Mark APRN RN BURN [address] [place] [address] Assigned PCP 08/30/22 11/21/22 Curtis Núñez MD [address] [facility] [address] [place] [address] Assigned Pulmonology Provider 09/13/22 Leonor Burgos MD [facility] [address] [place] [address] Assigned PCP 11/22/22 11/28/22 Annalisa Mark APRN RN BURN Assigned PCP 11/29/22 01/23/23 Lisa Wright, DEMARC[place] [address] [place] [address] Assigned PCP 01/24/23 documented as of this encounter
--- OUTSIDE RECORDS SUMMARY | 2024-03-15 08:47 | XMS_ITS | Encounter Summary ---
Author Organization [place] Address [address] [place] [address]. [place] [address] Care Team Providers Care Manager Document Control Name Role Phone Annalisa Mark APRN, CNP Primary Care Provi miguel Unavailable Mukul Rivas PA-C Unavailable + [phone] DeedeeAnnalisa dean APRN, CNP Unavailable Un available Mukul Rivas PA-C Unavailable + [phone] DeedeeAnnalisa dean APRN, CNP Unavailable Un available Jacob Carmona MD Unavailable + [phone] Leonor Burgos MD Unavailable + DeedeeAnnalisa APRN, CNP Unavailable Un available Jacob Carmona MD Primary Care Provider Leonor Burgos MD Unavailable + [facility] Primary Care Provider DeedeeAnnalisa dean APRN, CNP Unavailable Un available Curtis Núñez MD Unavailable +[phone] Leonor Burgos MD Unavailable + DeedeeAnnalisa APRN, CNP Unavailable Un available Lisa Wright PA-C Primary Care Provider [phone] KyleNormLisakendall Moore PA-C Unavailable [phone] Encounter Details Date Type Department Care Team (Late st Contact Info) Description 08/15/2019 MyC Medical Advice [facility] [address] [facility] [address] [place] [address] Jacob Carmona MD [address] [place] [address] Social History Tobacco Use Types [...] AM CDT Virtual Visit [facility] [address] [place] [phone] Chanel Asher PA-C [address] [place] [phone] 03/17/2024 9:45 AM CDT Office Visit [facility] [address] [facility] [address] [place] [phone] Jacob Carmona MD [address] [place], [place] [address] documented as of this encounter Visit Diagnoses Not on filedocumented in this encounter Additional Health Concerns Infection Onset Date Last Indicated Resolved Time Rule Out COVID-19 01/14/2021 01/14/2021 01/15/2021 3:32 PM CDT Rule Out C-difficile 02/26/2022 02/26/2022 022 1:52 PM CDT C-difficile 02/26/2022 02/26/2022 03/28/2022 11:4 1 PM CDT Rule Out C-difficile 09/10/2022 09/10/2022 023 5:27 PM PRESS SETTER C-difficile 09/10/2022 09/10/2022 10/10/2022 11:3 9 PM CDT Assessment Noted Time PHQ-9 Depression Total Score: 3 12/08/19 19 7:05 AM CDT documented as of this encounter Care Teams Manager Document Control Relationship Specialty Start Date End Date Annalisa Mark APRN CNP PCP - General Nurse Practitioner 03/22/15 06/29/22 Jacob Carmona MD [address] [place] [address] PCP - General 06/30/22 08/28/22 [facility] [address] [place], [place] [phone] PCP - General 08/29/22 01/18/23 Lisa Wright PA-C [address] [place] [address] PCP - General Family Medicine 01/19/23 Mukul Rivas PA-C [address] [place] [address] Assigned PCP 07/03/19 11/19/19 Annalisa Mark APRN COGNOS CONSULTANT Assigned PCP 11/20/19 12/10/19 Mukul Rivas PA-C [address] [place] [address], [place] [address] Assigned PCP 12/11/19 01/21/20 Annalisa Mark APRN COGNOS CONSULTANT Assigned PCP 01/22/20 02/21/22 Jacob Carmona MD [address] [place] [address] Assigned OBGYN Provider 05/18/20 Leonor Burgos MD [facility] [address] [place] [address] Assigned PCP 02/22/22 05/16/22 Annalisa Mark APRN COGNOS CONSULTANT Assigned PCP 05/17/22 08/15/22 Leonor Burgos MD PR[facility] [address] [place] [address] Assigned PCP 08/16/22 08/29/22 Annalisa Mark APRN COGNOS CONSULTANT [address] [facility] [place] [address] Assigned PCP 08/30/22 11/21/22 Curtis Núñez MD [address] [facility] [address] [place] [address] Assigned Pulmonology Provider 09/13/22 Leonor Burgos MD PRIMARY [facility] [address] [place], [place] [address] Assigned PCP 11/22/22 11/28/22 Annalisa Mark APRN COGNOS CONSULTANT Assigned PCP 11/29/22 01/23/23 Lisa Wright, DEMARCUS [address] [place] [address] Assigned PCP 01/24/23 documented as of this encounter
--- OUTSIDE RECORDS SUMMARY | 2024-03-15 08:47 | XMS_ITS | Encounter Summary ---
Author Organization [place] Address [address] [place] [address]. [place] [address] Care Team Providers Care Supervisor Webbing Name Role Phone Annalisa Mark APRN, CNP Primary Care Provi miguel Unavailable Mukul Rivas PA-C Unavailable + [phone] DeedeeAnnalisa dean APRN, CNP Unavailable Un available Mukul Rivas PA-C Unavailable + [phone] DeedeeAnnalisa dean APRN, CNP Unavailable Un available Jacob Carmona MD Unavailable + [phone] Leonor Burgos MD Unavailable + DeedeeAnnalisa APRN, CNP Unavailable Un available Jacob Carmona MD Primary Care Provider Leonor Burgos MD Unavailable + [facility] Primary Care Provider DeedeeAnnalisa dean APRN, CNP Unavailable Un available Curtis Núeñz MD Unavailable +[phone] Leonor Burgos MD Unavailable + DeedeeAnnalisa APRN, CNP Unavailable Un available Lisa Wright PA-C Primary Care Provider [phone] Lisa Wright PA-C Unavailable [phone] Reason for Visit * Reason Onset Date Comments Care 09/12/2019 Encounter Details Date Type Department Care Team (Late Contact Info) Description 09/12/2019 MyC Medical Advice M [facility] [address] [facility] [address] [place] [address] Jacob Carmona MD [address] [place] [address] Care Social History Tobacco Use [...] 03/17/2024 9:00 AM CDT Virtual Visit [facility] [address] [place] [phone] Chanel Asher PA-C [address] [place] [address] 03/17/2024 9:45 AM CDT Office Visit [facility] [address] [facility] [address] [place] [phone] Jacob Carmona MD [address] [place] [address] documented as of this encounter Visit Diagnoses Not on filedocumented in this encounter Additional Health Concerns Infection Onset Date Last Indicated Resolved Time Rule Out COVID-19 01/14/2021 01/14/2021 01/15/2021 3:32 PM CDT Rule Out C-difficile 02/26/2022 02/26/2022 022 1:52 PM CDT C-difficile 02/26/2022 02/26/2022 03/28/2022 11:4 1 PM CDT Rule Out C-difficile 09/10/2022 09/10/2022 023 5:27 PM STATUARY PAINTER C-difficile 09/10/2022 09/10/2022 10/10/2022 11:3 9 PM CDT Assessment Noted Time PHQ-9 Depression Total Score: 3 12/08/19 19 7:05 AM CDT documented as of this encounter Care Teams Supervisor Webbing Relationship Specialty Start Date End Date Annalisa Mark APRN LICENSE AND PERMIT SPECIALIST PCP - General Nurse Practitioner 03/22/15 06/29/22 Jacob Carmona MD [address] [place] [address] PCP - General 06/30/22 08/28/22 [facility] [address] [place] [address] PCP - General 08/29/22 01/18/23 Lisa Wright PA-C [address] [facility] [place] [address] PCP - General Family Medicine 01/19/23 Mukul Rivas PA-C [address] [place] [address] Assigned PCP 07/03/19 11/19/19 Annalisa Mark APRN LICENSE AND PERMIT SPECIALIST Assigned PCP 11/20/19 12/10/19 Mukul Rivas PA-C [address] [place] [address], [place] [address] Assigned PCP 12/11/19 01/21/20 Annalisa Mark APRN LICENSE AND PERMIT SPECIALIST Assigned PCP 01/22/20 02/21/22 Jacob Carmona MD [address] [place], [place] [address] Assigned OBGYN Provider 05/18/20 Leonor Burgos MD [facility] [address] [place] [address] Assigned PCP 02/22/22 05/16/22 Annalisa Mark APRN LICENSE AND PERMIT SPECIALIST Assigned PCP 05/17/22 08/15/22 Leonor Burgos MD [facility] [address] [place] [address] Assigned PCP 08/16/22 08/29/22 Annalisa Mark APRN LICENSE AND PERMIT SPECIALIST [address] [place] [address] Assigned PCP 08/30/22 11/21/22 Curtis Núñez MD [address] [facility] [address] [place] [address] Assigned Pulmonology Provider 09/13/22 Leonor Burgos MD [facility] [address] [place] [address] Assigned PCP 11/22/22 11/28/22 Annalisa Mark APRN LICENSE AND PERMIT SPECIALIST Assigned PCP 11/29/22 01/23/23 Lisa Wright, DEMARCUS [address] [place] [address] Assigned PCP 01/24/23 documented as of this encounter
--- OUTSIDE RECORDS SUMMARY | 2024-03-15 08:47 | XMS_ITS | Encounter Summary ---
Author Organization [place] Address [address] [place] [address]. [place] [address] Care Team Providers Care Cpht Name Role Phone Annalisa Mark APRN, CNP Primary Care Provi miguel Unavailable Mukul Rivas PA-C Unavailable + [phone] DeedeeAnnalisa dean APRN, CNP Unavailable Un available Mukul Rivas PA-C Unavailable + [phone] DeedeeAnnalisa dean APRN, CNP Unavailable Un available Jacob Carmona MD Unavailable + [phone] Leonor Burgos MD Unavailable + DeedeeAnnalisa APRN, CNP Unavailable Un available Jacob Carmona MD Primary Care Provider Leonor Burgos MD Unavailable + [facility] Primary Care Provider DeedeeAnnalisa dean APRN, CNP Unavailable Un available Curtis Núñez MD Unavailable +[phone] Leonor Burgos MD Unavailable + DeedeeAnnalisa APRN, CNP Unavailable Un available Lisa Wright PA-C Primary Care Provider KyleNormLisakendall Moore PA-C Unavailable +[phone] Encounter Details Date Type Department Care Team (Late st Contact Info) Description 09/15/2019 MyC Medical Advice M [facility] [address] [facility] [address] [place] [address] Jacob Carmona MD [address] [place] [address] Social History Tobacco Use Types [...] Description 03/17/2024 9:00 AM CDT Virtual Visit [facility] [address] [place] [phone] hCanel Asher PA-C [id number] [place] [address] [phone] 03/17/2024 9:45 AM CDT Office Visit [facility] [address] [facility] [address] [facility] [address] [place] [phone] Jacob Carmona MD [address] [place], [place] [address] documented as of this encounter Visit Diagnoses Not on filedocumented in this encounter Additional Health Concerns Infection Onset Date Last Indicated Resolved Time Rule Out COVID-19 01/14/2021 01/14/2021 01/15/2021 3:32 PM CDT Rule Out C-difficile 02/26/2022 02/26/2022 022 1:52 PM CDT C-difficile 02/26/2022 02/26/2022 03/28/2022 11:4 1 PM CDT Rule Out C-difficile 09/10/2022 09/10/2022 023 5:27 PM STEEL FABRICATOR C-difficile 09/10/2022 09/10/2022 10/10/2022 11:3 9 PM CDT Assessment Noted Time PHQ-9 Depression Total Score: 3 12/08/19 19 7:05 AM CDT documented as of this encounter Care Teams Cpht Relationship Specialty Start Date End Date Annalisa Mark APRN CNP PCP - General Nurse Practitioner 03/22/15 06/29/22 Jacob Carmona MD [address] [place] [address] PCP - General 06/30/22 08/28/22 [facility] [address] [place], [place] [phone] PCP - General 08/29/22 01/18/23 Lisa Wright PA-C [address] [place] [address] PCP - General Family Medicine 01/19/23 Mukul Rivas PA-C [address] [place] [address] Assigned PCP 07/03/19 11/19/19 Annalisa Mark APRN WIG STYLIST Assigned PCP 11/20/19 12/10/19 Mukul Rivas PA-C [address] [place] [address], [place] [address] Assigned PCP 12/11/19 01/21/20 Annalisa Mark APRN WIG STYLIST Assigned PCP 01/22/20 02/21/22 Jacob Carmona MD [address] [place] [address] Assigned OBGYN Provider 05/18/20 Leonor Burgos MD [facility] [address] [place] [address] Assigned PCP 02/22/22 05/16/22 Annalisa Mark APRN WIG STYLIST Assigned PCP 05/17/22 08/15/22 Leonor Burgos MD [facility] [address] [place] [address] Assigned PCP 08/16/22 08/29/22 Annalisa Mark APRN WIG STYLIST [address] [facility] [place] [address] Assigned PCP 08/30/22 11/21/22 Curtis Núñez MD [address] [facility] [address] [place] [address] Assigned Pulmonology Provider 09/13/22 Leonor Burgos MD [facility] [address] [place], [place] [address] Assigned PCP 11/22/22 11/28/22 Annalisa Mark APRN WIG STYLIST Assigned PCP 11/29/22 01/23/23 Lisa Wright, DEMARCUS [address] [place] [address] Assigned PCP 01/24/23 documented as of this encounter
--- OUTSIDE RECORDS SUMMARY | 2024-03-15 08:47 | XMS_ITS | Encounter Summary ---
Author Organization [place] Address [address] [place] [address]. [place] [address] Care Team Providers Care Electronic Imaging System Operator Name Role Phone DeedeeAnnalisa dean APRN, CNP Primary Care Provi miguel Unavailable DeedeeAnnalisa APRN, CNP Unavailable Un available SabJacob sylvester MD Unavailable Leonor Burgos MD Unavailable + DeedeeAnnalisa APRN, CNP Unavailable Un available Jacob Carmona MD Primary Care Provider Leonor Burgos MD Unavailable + [facility] Primary Care Provider Annalisa Mark APRN, CNP Unavailable Un available Curtis Núñez MD Unavailable +[phone] Leonor Burgos MD Unavailable + Annalisa Mark APRN, CNP Unavailable Un available Lisa Wright PA-C Primary Care Provider [phone] Lisa Wright PA-C Unavailable [phone] Reason for Visit * Reason Onset Date Comments MyChart Communication 03/15/2020 Encounter Details Date Type Department Care Team (Latest Contact Info) Description 03/15/2020 MyC Medical Advice M [facility] [id number] [place] [phone] Annalisa Mark APRN CENTRALIZED TRAFFIC CONTROL OPERATOR MyChart Communication Social History Tobacco Use Types [...] 02/15/2019 Lack of Transportation (Non-Medical) No 02/15/2019 Snowflake Depression Scale Answer Date Recorded Snowflake Depression Score 2 09/21/2019 Last EPDS Self [...] have Coronavirus / COVID-19? No / Unsure 03/15/2020 6:09 PM CDT documented as of this encounter Plan of Treatment Upcoming Encounters Date Type Department Care Team (Late st Contact Info) Description 03/17/2024 9:00 AM CDT Virtual Visit [facility] [phone] [place] [phone] Chanel Asher, BRENTC [address] [place] [address] 03/17/2024 9:45 AM CDT Office Visit [facility] [address] [facility] [address] [place] [phone] Jacob Carmona MD [address] [place] [address] documented as of this encounter Visit Diagnoses Not on filedocumented in this encounter Additional Health Concerns Infection Onset Date Last Indicated Resolved Time Rule Out COVID-19 01/14/2021 01/14/2021 01/15/2021 3:32 PM CDT Rule Out C-difficile 02/26/2022 02/26/2022 022 1:52 PM CDT C-difficile 02/26/2022 02/26/2022 03/28/2022 11:4 1 PM CDT Rule Out C-difficile 09/10/2022 09/10/2022 023 5:27 PM DESIZING MACHINE OFFBEARER C-difficile 09/10/2022 09/10/2022 10/10/2022 11:3 9 PM CDT Assessment Noted Time PHQ-9 Depression Total Score: 2 12/08/19 20 7:04 AM CDT documented as of this encounter Care Teams Electronic Imaging System Operator Relationship Specialty Start Date End Date Annalisa Mark APRN CENTRALIZED TRAFFIC CONTROL OPERATOR PCP - General Nurse Practitioner 03/22/15 06/29/22 Jacob Carmona MD [address] [place] [address] PCP - General 06/30/22 08/28/22 [facility] [address] [place] [address] PCP - General 08/29/22 01/18/23 Lisa Wright PA-C [address] [place] [address] PCP - General Family Medicine 01/19/23 Annalisa Mark APRN CENTRALIZED TRAFFIC CONTROL OPERATOR Assigned PCP 01/22/20 02/21/22 Jacob Carmona MD [address] [place], [place] [address] Assigned OBGYN Provider 05/18/20 Leonor Burgos MD [facility] [address] [place] [address] Assigned PCP 02/22/22 05/16/22 Annalisa Mark APRN CENTRALIZED TRAFFIC CONTROL OPERATOR Assigned PCP 05/17/22 08/15/22 Leonor Burgos MD [facility] [address] [place], [place] [address] Assigned PCP 08/16/22 08/29/22 Annalisa Mark APRN CENTRALIZED TRAFFIC CONTROL OPERATOR [address] [place] [address] Assigned PCP 08/30/22 11/21/22 Curtis Núñez MD [address] [place] [address] 276 [place] [address] Assigned Pulmonology Provider 09/13/22 Leonor Burgos MD [facility] [address] [place] [address] Assigned PCP 11/22/22 11/28/22 Annalisa Mark APRN CENTRALIZED TRAFFIC CONTROL OPERATOR Assigned PCP 11/29/22 01/23/23 Lisa Wright PA-C [address] [place] [address] Assigned PCP 01/24/23 documented as of this encounter
--- OUTSIDE RECORDS SUMMARY | 2024-03-15 08:47 | XMS_ITS | Encounter Summary ---
Author Organization [place] Address [address] [place] [address]. [place] [address] Care Team Providers Care Infantry Unit Leader Name Role Phone Annalisa Mark APRN, CNP Primary Care Provi miguel Unavailable Mukul Rivas PA-C Unavailable + [phone] DeedeeAnnalisa dean APRN, CNP Unavailable Un available Mukul Rivas PA-C Unavailable + [phone] DeedeeAnnalisa dean APRN, CNP Unavailable Un available Jacob Carmona MD Unavailable + [phone] Leonor Burgos MD Unavailable + DeedeeAnnalisa APRN, CNP Unavailable Un available Jacob Carmona MD Primary Care Provider Leonor Burgos MD Unavailable + [facility] Primary Care Provider DeedeeAnnalisa dean APRN, CNP Unavailable Un available Curtis Núñez MD Unavailable +[phone] Leonor Burgos MD Unavailable + DeedeeAnnalisa APRN, CNP Unavailable Un available Lisa Wright PA-C Primary Care Provider Lisa Wright PA-C Unavailable [phone] Reason for Visit * Reason Onset Date Comments post 09/22/2019 Encounter Details Date Type Department Care Team (Late st Contact Info) Description 09/22/2019 MyC Medical Advice [facility] [address] [facility] [address] [place] [address] Jacob Carmona MD [address] [place], [place] [phone] post Social History Tobacco Use Types Packs/Day Years [...] 02/15/2019 Lack of Transportation (Non-Medical) No 02/15/2019 Valdez Depression Scale Answer Date Recorded Valdez Depression Score 2 09/21/2019 Last EPDS Self [...] Description 03/17/2024 9:00 AM CDT Virtual Visit [address] [place] [address] Chanel Asher PA-C [phone] [place] [address] [phone] 03/17/2024 9:45 AM CDT Office Visit [facility] [address] [facility] [address] [place] [phone] Jacob Carmona MD [address] [place], [place] [address] documented as of this encounter Visit Diagnoses Not on filedocumented in this encounter Additional Health Concerns Infection Onset Date Last Indicated Resolved Time Rule Out COVID-19 01/14/2021 01/14/2021 01/15/2021 3:32 PM CDT Rule Out C-difficile 02/26/2022 02/26/2022 022 1:52 PM CDT C-difficile 02/26/2022 02/26/2022 03/28/2022 11:4 1 PM CDT Rule Out C-difficile 09/10/2022 09/10/2022 023 5:27 PM 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 RIVETING 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 C-difficile 09/10/2022 09/10/2022 10/10/2022 11:3 9 PM CDT Assessment Noted Time PHQ-9 Depression Total Score: 3 12/08/19 19 7:05 AM CDT documented as of this encounter Care Teams Infantry Unit Leader Relationship Specialty Start Date End Date Annalisa Mark APRN CORPORATE WEBMASTER PCP - General Nurse Practitioner 03/22/15 06/29/22 Jacob Carmona MD [address] [place], [place] [phone] PCP - General 06/30/22 08/28/22 Clinic - [facility] [address] [place] [address] [id number] PCP - General 08/29/22 01/18/23 Lisa Wright PA-C [address] [place] [address] PCP - General Family Medicine 01/19/23 Mukul Rivas PA-C [address] [place] [address] [id number] Assigned PCP 07/03/19 11/19/19 Annalisa Mark APRN CORPORATE WEBMASTER Assigned PCP 11/20/19 12/10/19 Mukul Rivas PA-C [address] [place] [address] Assigned PCP 12/11/19 01/21/20 Annalisa Mark APRN CORPORATE WEBMASTER Assigned PCP 01/22/20 02/21/22 Jacob Carmona MD [address] [place] [address] Assigned OBGYN Provider 05/18/20 Leonor Burgos MD PR[facility] [address] [place] [address] Assigned PCP 02/22/22 05/16/22 Annalisa Mark APRN CORPORATE WEBMASTER Assigned PCP 05/17/22 08/15/22 Leonor Burgos MD PR[facility] [address] [place] [address] Assigned PCP 1/21/23 2/3/23 Annalisa Mark APRN CORPORATE WEBMASTER [address] [place] [address] Assigned PCP 08/30/22 11/21/22 Curtis Núñez MD [address] [facility] [address] [place], [place] [address] Assigned Pulmonology Provider 09/13/22 Leonor Burgos MD PRIMARY ENT [address] [place], [place] [address] Assigned PCP 11/22/22 11/28/22 Annalisa Mark APRN CORPORATE WEBMASTER Assigned PCP 11/29/22 01/23/23 Lisa Wright PA-C [address] [place] [address] Assigned PCP 01/24/23 documented as of this encounter
--- OUTSIDE RECORDS SUMMARY | 2024-03-15 08:47 | XMS_ITS | Encounter Summary ---
Author Organization [place] Address [address] [place] [address]. [place] [address] Care Team Providers Care Bell Valet Name Role Phone Annalisa Mark APRN, CNP Primary Care Provi miguel Unavailable Mukul Rivas PA-C Unavailable + [phone] DeedeeAnnalisa dean APRN, CNP Unavailable Un available Mukul Rivas PA-C Unavailable + [phone] DeedeeAnnalisa daen APRN, CNP Unavailable Un available Jacob Carmona MD Unavailable + [phone] Leonor Burgos MD Unavailable + DeedeeAnnalisa APRN, CNP Unavailable Un available Jacob Carmona MD Primary Care Provider Leonor Burgos MD Unavailable + [facility] Primary Care Provider DeedeeAnnalisa dean APRN, CNP Unavailable Un available Curtis Núñez MD Unavailable +[phone] Leonor Burgos MD Unavailable + DeedeeAnnalisa APRN, CNP Unavailable Un available Lisa Wright PA-C Primary Care Provider KyleNormLisakendall Moore PA-C Unavailable [phone] Encounter Details Date Type Department Care Team (Late st Contact Info) Description 07/25/2019 MyC Medical Advice M [facility] [address] [facility] [address] [place] [address] Jacob Carmona MD [address] [place] [address] Social History Tobacco Use [...] CDT Virtual Visit [facility] [address] [place] [phone] Chanel Asher PA-C [id number] [place] [address] [phone] 03/17/2024 9:45 AM CDT Office Visit [facility] [address] [facility] [address] [place] [phone] Jacob Carmona MD [address] [place], [place] [address] documented as of this encounter Visit Diagnoses Not on filedocumented in this encounter Additional Health Concerns Infection Onset Date Last Indicated Resolved Time Rule Out COVID-19 01/14/2021 01/14/2021 01/15/2021 3:32 PM CDT Rule Out C-difficile 02/26/2022 02/26/2022 022 1:52 PM CDT C-difficile 02/26/2022 02/26/2022 03/28/2022 11:4 1 PM CDT Rule Out C-difficile 09/10/2022 09/10/2022 023 5:27 PM UNIT SECY C-difficile 09/10/2022 09/10/2022 10/10/2022 11:3 9 PM CDT Assessment Noted Time PHQ-9 Depression Total Score: 3 12/08/19 19 7:05 AM CDT documented as of this encounter Care Teams Bell Valet Relationship Specialty Start Date End Date Annalisa Mark APRN CNP PCP - General Nurse Practitioner 03/22/15 06/29/22 Jacob Carmona MD [address] [place] [address] PCP - General 06/30/22 08/28/22 [facility] [address] [place], [place] [phone] PCP - General 08/29/22 01/18/23 Lisa Wright PA-C [address] [place] [address] PCP - General Family Medicine 01/19/23 Mukul Rivas PA-C [address] [place] [address] Assigned PCP 07/03/19 11/19/19 Annalisa Mark APRN COACH TOUR DRIVER Assigned PCP 11/20/19 12/10/19 Mukul Rivas PA-C [address] [place] [address], [place] [address] Assigned PCP 12/11/19 01/21/20 Annalisa Mark APRN COACH TOUR DRIVER Assigned PCP 01/22/20 02/21/22 Jacob Carmona MD [address] [place] [address] Assigned OBGYN Provider 05/18/20 Leonor Burgos MD PRIMARY [facility] [address] [place] [address] Assigned PCP 02/22/22 05/16/22 Annalisa Mark APRN COACH TOUR DRIVER Assigned PCP 05/17/22 08/15/22 Leonor Burgos MD PRIMARY [facility]NT [address] [place] [address] Assigned PCP 08/16/22 08/29/22 Annalisa Mark APRN COACH TOUR DRIVER [address] [facility] [place] [address] Assigned PCP 08/30/22 11/21/22 Curtis Núñez MD [address] [facility] [address] [place] [address] Assigned Pulmonology Provider 09/13/22 Leonor Burgos MD PRIMARY ENT [address] [place], [place] [address] Assigned PCP 11/22/22 11/28/22 Annalisa Mark APRN COACH TOUR DRIVER Assigned PCP 11/29/22 01/23/23 Lisa Wright, DEMARCUS [address] [place] [address] Assigned PCP 01/24/23 documented as of this encounter
--- OUTSIDE RECORDS SUMMARY | 2024-03-15 08:47 | XMS_ITS | Encounter Summary ---
Author Organization [place] Address [address] [place] [address]. [place] [address] Care Team Providers Care Molder Punch Name Role Phone Annalisa Mark APRN, CNP Primary Care Provi miguel Unavailable Mukul Rivas PA-C Unavailable + [phone] DeedeeAnnalisa dean APRN, CNP Unavailable Un available Mukul Rivas PA-C Unavailable + [phone] DeedeeAnnalisa dean APRN, CNP Unavailable Un available Jacob Carmona MD Unavailable + [phone] Leonor Burgos MD Unavailable + DeedeeAnnalisa APRN, CNP Unavailable Un available Jacob Carmona MD Primary Care Provider Leonor Burgos MD Unavailable + [facility] Primary Care Provider DeedeeAnnalisa dean APRN, CNP Unavailable Un available Curtis Núñez MD Unavailable +[phone] Leonor Burgos MD Unavailable + DeedeeAnnalisa APRN, CNP Unavailable Un available Lisa Wright PA-C Primary Care Provider KyleNormLisakendall Moore PA-C Unavailable [phone] Encounter Details Date Type Department Care Team (Late st Contact Info) Description 07/17/2019 MyC Medical Advice M [facility] [address] [facility] [address] [place] [address] Jacob Carmona MD [address] [place] [address] Social History Tobacco Use Types [...] 9:00 AM CDT Virtual Visit [facility] [address] [place] [phone] Chanel Asher PA-C [address] [place] [address] [phone] 03/17/2024 9:45 AM CDT Office Visit [facility] [address] [facility] [address] [place] [phone] Jacob Carmona MD [address] [place], [place] [address] documented as of this encounter Visit Diagnoses Not on filedocumented in this encounter Additional Health Concerns Infection Onset Date Last Indicated Resolved Time Rule Out COVID-19 01/14/2021 01/14/2021 01/15/2021 3:32 PM CDT Rule Out C-difficile 02/26/2022 02/26/2022 022 1:52 PM CDT C-difficile 02/26/2022 02/26/2022 03/28/2022 11:4 1 PM CDT Rule Out C-difficile 09/10/2022 09/10/2022 023 5:27 PM BUCKLE FRAME SHAPER C-difficile 09/10/2022 09/10/2022 10/10/2022 11:3 9 PM CDT Assessment Noted Time PHQ-9 Depression Total Score: 3 12/08/19 19 7:05 AM CDT documented as of this encounter Care Teams Molder Punch Relationship Specialty Start Date End Date Annalisa Mark APRN CNP PCP - General Nurse Practitioner 03/22/15 06/29/22 Jacob Carmona MD [address] [place] [address] PCP - General 06/30/22 08/28/22 [facility] [address] [place], [place] [phone] PCP - General 08/29/22 01/18/23 Lisa Wright PA-C [address] [place] [address] PCP - General Family Medicine 01/19/23 Mukul Rivas PA-C [address] [place] [address] Assigned PCP 07/03/19 11/19/19 Annalisa Mark APRN POULTRY BARN MANAGER Assigned PCP 11/20/19 12/10/19 Mukul Rivas PA-C [address] [place] [address], [place] [address] Assigned PCP 12/11/19 01/21/20 Annalisa Mark APRN POULTRY BARN MANAGER Assigned PCP 01/22/20 02/21/22 Jacob Carmona MD [address] [place] [address] Assigned OBGYN Provider 05/18/20 Leonor Burgos MD PR[facility] [address] [place] [address] Assigned PCP 02/22/22 05/16/22 Annalisa Mark APRN POULTRY BARN MANAGER Assigned PCP 05/17/22 08/15/22 Leonor Burgos MD [facility] [address] [place] [address] Assigned PCP 08/16/22 08/29/22 Annalisa Mark APRN POULTRY BARN MANAGER [address] [facility] [place] [address] Assigned PCP 08/30/22 11/21/22 Curtis Núñez MD [address] [facility] [address] [place] [address] Assigned Pulmonology Provider 09/13/22 Leonor Burgos MD PRIMARY ENT [address] [place], [place] [address] Assigned PCP 11/22/22 11/28/22 Annalisa Mark APRN POULTRY BARN MANAGER Assigned PCP 11/29/22 01/23/23 Lisa Wright, DEMARCUS [address] [place] [address] Assigned PCP 01/24/23 documented as of this encounter
--- OUTSIDE RECORDS SUMMARY | 2024-03-15 08:47 | XMS_ITS | Encounter Summary ---
Author Organization [place] Address [address] [place] [address]. [place] [address] Care Team Providers Care Oil Heater Operator Name Role Phone Annalisa Mark APRN, CNP Primary Care Provi miguel Unavailable Mukul Rivas PA-C Unavailable + [phone] DeedeeAnnalisa dean APRN, CNP Unavailable Un available Mukul Rivas PA-C Unavailable + [phone] DeedeeAnnalisa dean APRN, CNP Unavailable Un available Jacob Carmona MD Unavailable + [phone] Leonor Burgos MD Unavailable + DeedeeAnnalisa APRN, CNP Unavailable Un available Jacob Carmona MD Primary Care Provider Leonor Burgos MD Unavailable + [facility] Primary Care Provider DeedeeAnnalisa dean APRN, CNP Unavailable Un available Curtis Núñez MD Unavailable +[phone] Leonor Burgos MD Unavailable + DeedeeAnnalisa APRN, CNP Unavailable Un available Lisa Wright-C Primary Care Provider Lisa Wright PA-C Unavailable [phone] Encounter Details Date Type Department Care Team (Late st Contact Info) Description 09/22/2019 MyC Medical Advice [facility] [address] [facility] [address] [place] [address] Jacob Carmona MD [address] [place] [address] Social History Tobacco Use Types [...] 02/15/2019 Lack of Transportation (Non-Medical) No 02/15/2019 Dana Depression Scale Answer Date Recorded Dana Depression Score 2 09/21/2019 Last EPDS Self [...] 03/17/2024 9:00 AM CDT Virtual Visit [address] [address] Chanel Asher PA-C [address] [place] [address] 03/17/2024 9:45 AM CDT Office Visit [facility] [address] [facility] [address] [place] [phone] Jacob Carmona MD [address] [place], [place] [address] documented as of this encounter Visit Diagnoses Not on filedocumented in this encounter Additional Health Concerns Infection Onset Date Last Indicated Resolved Time Rule Out COVID-19 01/14/2021 01/14/2021 01/15/2021 3:32 PM CDT Rule Out C-difficile 02/26/2022 02/26/2022 022 1:52 PM CDT C-difficile 02/26/2022 02/26/2022 03/28/2022 11:4 1 PM CDT Rule Out C-difficile 09/10/2022 09/10/2022 023 5:27 PM 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 C-difficile 09/10/2022 09/10/2022 10/10/2022 11:3 9 PM CDT Assessment Noted Time PHQ-9 Depression Total Score: 3 12/08/19 19 7:05 AM CDT documented as of this encounter Care Teams Oil Heater Operator Relationship Specialty Start Date End Date Annalisa Mark APRN OIL FURNACE INSTALLER PCP - General Nurse Practitioner 03/22/15 06/29/22 Jacob Carmona MD [address] [place] [address] PCP - General 06/30/22 08/28/22 [facility] [address] [place] [address] PCP - General 08/29/22 01/18/23 Lisa Wright PA-C [address] [facility] [address] PCP - General Family Medicine 01/19/23 Mukul Rivas PA-C [address] [place] [address], [place] [address] Assigned PCP 07/03/19 11/19/19 Annalisa Mark APRN OIL FURNACE INSTALLER Assigned PCP 11/20/19 12/10/19 Mukul Rivas PA-C [address] [place] [address], [place] [address] Assigned PCP 12/11/19 01/21/20 Annalisa Mark APRN OIL FURNACE INSTALLER Assigned PCP 01/22/20 02/21/22 Jacob Carmona MD [address] [place] [address] Assigned OBGYN Provider 05/18/20 Leonor Burgos MD [facility] [address] [place] [address] Assigned PCP 02/22/22 05/16/22 Annalisa Mark APRN OIL FURNACE INSTALLER Assigned PCP 05/17/22 08/15/22 Leonor Burgos MD [facility] [address] [place] [address] Assigned PCP 08/16/22 08/29/22 Annalisa Mark APRN OIL FURNACE INSTALLER [address] [place] [address] Assigned PCP 08/30/22 11/21/22 Curtis Núñez MD [address] [facility] 276 [place] [address] Assigned Pulmonology Provider 09/13/22 Leonor Burgos MD PRIMARY ENT [address] [facility] [address] [place] [address] Assigned PCP 11/22/22 11/28/22 Annalisa Mark APRN OIL FURNACE INSTALLER Assigned PCP 11/29/22 01/23/23 Lisa Wright PA-C [address] [place] [address] Assigned PCP 01/24/23 documented as of this encounter
--- OUTSIDE RECORDS SUMMARY | 2024-03-15 08:47 | XMS_ITS | Encounter Summary ---
Author Organization [facility] Address [address] [place] [address]. [place] [address] Care Team Providers Care Coal Washer Tender Name Role Phone Annalisa Mark APRN, CNP Primary Care Provi miguel Unavailable Mukul Rivas PA-C Unavailable + [phone] DeedeeAnnalisa dean APRN, CNP Unavailable Un available Mukul Rivas PA-C Unavailable + [phone] DeedeeAnnalisa dean APRN, CNP Unavailable Un available Jacob Carmona MD Unavailable + [phone] Leonor Burgos MD Unavailable + DeedeeAnnalisa APRN, CNP Unavailable Un available Jacob Carmona MD Primary Care Provider Leonor Burgos MD Unavailable + [facility] Primary Care Provider DeedeeAnnalisa dean APRN, CNP Unavailable Un available Curtis Núñez MD Unavailable +[phone] Leonor Burgos MD Unavailable + DeedeeAnnalisa APRN, CNP Unavailable Un available Lisa Wright-C Primary Care Provider Lisa Wright PA-C Unavailable [phone] Encounter Details Date Type Department Care Team (Late st Contact Info) Description 10/29/2019 MyC Medical Advice [facility] [address] [facility] [address] [place] [address] Jacob Carmona MD [address] [place] [address] Social History Tobacco Use Types [...] 02/15/2019 Lack of Transportation (Non-Medical) No 02/15/2019 [place] Depression Scale Answer Date Recorded [place] Depression Score 2 09/21/2019 Last EPDS Self [...] Description 03/17/2024 9:00 AM CDT Virtual Visit [address] [address] Chanel Asher PA-C [address] [place] [address] 03/17/2024 9:45 AM CDT Office Visit [facility] [address] [facility] [address] [place] [phone] Jacob Carmona MD [address] [place], [place] [address] documented as of this encounter Visit Diagnoses Not on filedocumented in this encounter Additional Health Concerns Infection Onset Date Last Indicated Resolved Time Rule Out COVID-19 01/14/2021 01/14/2021 01/15/2021 3:32 PM CDT Rule Out C-difficile 02/26/2022 02/26/2022 022 1:52 PM CDT C-difficile 02/26/2022 02/26/2022 03/28/2022 11:4 1 PM CDT Rule Out C-difficile 09/10/2022 09/10/2022 023 5:27 PM PRINTER [employer] C-difficile 09/10/2022 09/10/2022 10/10/2022 11:3 9 PM CDT Assessment Noted Time PHQ-9 Depression Total Score: 3 12/08/19 19 7:05 AM CDT documented as of this encounter Care Teams Coal Washer Tender Relationship Specialty Start Date End Date Annalisa Mrak APRN DYE MIXER PCP - General Nurse Practitioner 03/22/15 06/29/22 Jacob Carmoan MD [address] [place] [address] PCP - General 06/30/22 08/28/22 [facility] [address] [place] [address] PCP - General 08/29/22 01/18/23 Lisa Wright PA-C [address] [place] [address] PCP - General Family Medicine 01/19/23 Mukul Rivas PA-C [address] [place] [address], [place] [address] Assigned PCP 07/03/19 11/19/19 Annalisa Mark APRN DYE MIXER Assigned PCP 11/20/19 12/10/19 Mukul Rivas PA-C [address] [place] [address], [place] [address] Assigned PCP 12/11/19 01/21/20 Annalisa Mark APRN DYE MIXER Assigned PCP 01/22/20 02/21/22 Jacob Carmona MD [address] [place] [address] Assigned OBGYN Provider 05/18/20 Leonor Burgos MD [facility] [address] [place] [address] Assigned PCP 02/22/22 05/16/22 Annalisa Mrak APRN DYE MIXER Assigned PCP 05/17/22 08/15/22 Leonor Burgos MD [facility] [address] [place] [address] Assigned PCP 08/16/22 08/29/22 Annalisa Mark APRN DYE MIXER [address] [place] [address] Assigned PCP 08/30/22 11/21/22 Curtis Núñez MD [address] [facility] [address] [place] [address] Assigned Pulmonology Provider 09/13/22 Leonor Burgos MD [facility] [address] [facility] [address] [place] [address] Assigned PCP 11/22/22 11/28/22 Annalisa Mark APRN DYE MIXER Assigned PCP 11/29/22 01/23/23 Lisa Wright PA-C [address] [place] [address] Assigned PCP 01/24/23 documented as of this encounter
--- OUTSIDE RECORDS SUMMARY | 2024-03-15 08:47 | XMS_ITS | Encounter Summary ---
Author Organization [facility] Address [address] [place] [address]. [place] [address] Care Team Providers Care Apartment Maintenance Worker Name Role Phone Annalisa Mark APRN, CNP Primary Care Provi miguel Unavailable Mukul Rivas PA-C Unavailable + [phone] DeedeeAnnalisa dean APRN, CNP Unavailable Un available Mkuul Rivas PA-C Unavailable + [phone] DeedeeAnnalisa dean APRN, CNP Unavailable Un available Jacob Carmona MD Unavailable + [phone] Leonor Burgos MD Unavailable + DeedeeAnnalisa APRN, CNP Unavailable Un available Jacob Carmona MD Primary Care Provider Leonor Burgos MD Unavailable + [facility] Primary Care Provider DeedeeAnnalisa dean APRN, CNP Unavailable Un available Curtis Núñez MD Unavailable +[phone] Leonor Burgos MD Unavailable + DeedeeAnnalisa APRN, CNP Unavailable Un available Lisa Wright PA-C Primary Care Provider [phone] Lisa Wright PA-C Unavailable [phone] Reason for Visit * Reason Onset Date Comments Breast Problem 10/01/2019 Encounter Details Date Type Department Care Team (Late st Contact Info) Description 10/01/2019 MyC Medical Advice [facility] [address] [facility] [address] [place] [address] Jacob Carmona MD [address] [place], [place] [id number] Breast Problem Social History Tobacco Use Types [...] 02/15/2019 Lack of Transportation (Non-Medical) No 02/15/2019 [place] Depression Scale Answer Date Recorded [place] Depression Score 2 09/21/2019 Last EPDS Self [...] Description 03/17/2024 9:00 AM CDT Virtual Visit [address] [place] [address] Chanel Asher PA-C [id number] [place] [phone] 03/17/2024 9:45 AM CDT Office Visit [facility] [address] [facility] [address] [place] [address] Jacob Carmona MD [address] [place], [place] [address] documented as of this encounter Visit Diagnoses Not on filedocumented in this encounter Additional Health Concerns Infection Onset Date Last Indicated Resolved Time Rule Out COVID-19 01/14/2021 01/14/2021 01/15/2021 3:32 PM CDT Rule Out C-difficile 02/26/2022 02/26/2022 022 1:52 PM CDT C-difficile 02/26/2022 02/26/2022 03/28/2022 11:4 1 PM CDT Rule Out C-difficile 09/10/2022 09/10/2022 023 5:27 PM WARP HAULER C-difficile 09/10/2022 09/10/2022 10/10/2022 11:3 9 PM CDT Assessment Noted Time PHQ-9 Depression Total Score: 3 12/08/19 19 7:05 AM CDT documented as of this encounter Care Teams Apartment Maintenance Worker Relationship Specialty Start Date End Date Annalisa Mark APRN ADDRESSOGRAPH OPERATOR PCP - General Nurse Practitioner 03/22/15 06/29/22 Jacob Carmona MD [address] [place], [place] [id number] PCP - General 06/30/22 08/28/22 Clinic - [facility] [id number] [place] [id number] PCP - General 08/29/22 01/18/23 Lisa Wright PA-C [address] [place] [address] PCP - General Family Medicine 01/19/23 Mukul Rivas PA-C [address] [place] [phone] Assigned PCP 07/03/19 11/19/19 Annalisa Mrak APRN ADDRESSOGRAPH OPERATOR Assigned PCP 11/20/19 12/10/19 Mukul Rivas PA-C [address] [place] [address] Assigned PCP 12/11/19 01/21/20 Annalisa Mark APRN ADDRESSOGRAPH OPERATOR Assigned PCP 01/22/20 02/21/22 Jacob Carmona MD [address] [place] [address] Assigned OBGYN Provider 05/18/20 Leonor Burgos MD [facility] [address] [place] [address] Assigned PCP 02/22/22 05/16/22 Annalisa Mark APRN ADDRESSOGRAPH OPERATOR Assigned PCP 05/17/22 08/15/22 Leonor Burgos MD [facility] [address] [place], [place] [address] Assigned PCP 08/16/22 08/29/22 Annalisa Mark APRN ADDRESSOGRAPH OPERATOR [address] [place] [address] Assigned PCP 08/30/22 11/21/22 Curtis Núñez MD [address] [facility] [address] [place] [address] Assigned Pulmonology Provider 09/13/22 Leonor Burgos MD [facility] [address] [place], [place] [address] Assigned PCP 11/22/22 11/28/22 Annalisa Mark APRN ADDRESSOGRAPH OPERATOR Assigned PCP 11/29/22 01/23/23 Lisa Wright PA-C [address] [place] [address] Assigned PCP 01/24/23 documented as of this encounter
--- OUTSIDE RECORDS SUMMARY | 2024-03-15 08:48 | XMS_ITS | Encounter Summary ---
Author Organization [facility] Address [address] [place] [address]. [place] [address] Care Team Providers Care Battery Container Finishing Hand Name Role Phone Annalisa Mark APRN, CNP Primary Care Provi miguel Unavailable Deedee, Annalisa Peacock APRN, CNP Unavailable Un available Mukul Rivas PA-C Unavailable + [phone] Deedee, Annalisa Peacock APRN, CNP Unavailable Un available Mukul Rivas PA-C Unavailable + [phone] Deedee, Annalisa Peacock APRN, CNP Unavailable Un available SabJacob sylvester MD Unavailable + [phone] Leonor Burgos MD Unavailable + DeedeeAnnalisa APRN, CNP Unavailable Un available SabJacob sylvester MD Primary Care Provider Leonor Burgos MD Unavailable + [facility] Primary Care Provider DeedeeAnnalisa dean APRN, CNP Unavailable Un available Dincer, Curtis Ambriz MD Unavailable +[phone] Leonor Burgos MD Unavailable + Annalisa Mark ADMINISTRATIVE AIDE X RAY CONSULTANT Unavailable Un available Lisa Wright PA-C Primary Care Provider [phone] Lisa Wright PA-C Unavailable [phone] Encounter Details Date Type Department Care Team (Late st Contact Info) Description 03/28/2019 MyC Medical Advice [facility] [address] [facility] [address] [place] [address] Jacob Carmona MD [address] [place] [address] Social History Tobacco Use Types [...] 03/17/2024 9:00 AM CDT Virtual Visit [facility] [address] [place] [address] Chanel Asher PA-C [address] [place] [address] 03/17/2024 9:45 AM CDT Office Visit [facility] [address] [facility] [address] [place] [phone] Jacob Carmona MD [address] [place] [address] documented as of this encounter Visit Diagnoses Not on filedocumented in this encounter Additional Health Concerns Infection Onset Date Last Indicated Resolved Time Rule Out COVID-19 01/14/2021 01/14/2021 01/15/2021 3:32 PM CDT Rule Out C-difficile 02/26/2022 02/26/2022 022 1:52 PM CDT C-difficile 02/26/2022 02/26/2022 03/28/2022 11:4 1 PM CDT Rule Out C-difficile 09/10/2022 09/10/2022 023 5:27 PM PLC ENGINEER C-difficile 09/10/2022 09/10/2022 10/10/2022 11:3 9 PM CDT Assessment Noted Time PHQ-9 Depression Total Score: 3 12/08/19 19 7:05 AM CDT documented as of this encounter Care Teams Battery Container Finishing Hand Relationship Specialty Start Date End Date Annalisa Mark APRN X RAY CONSULTANT PCP - General Nurse Practitioner 03/22/15 06/29/22 Jacob Carmona MD [address] [place] [address] PCP - General 06/30/22 08/28/22 [facility] [address] [place] [address] PCP - General 08/29/22 01/18/23 Lisa Wright PA-C [address] [facility] [address] PCP - General Family Medicine 01/19/23 Annalisa Mark APRN X RAY CONSULTANT Assigned PCP 06/06/18 07/02/19 Mukul Rivas PA-C [address] [place] [address], [place] [address] Assigned PCP 07/03/19 11/19/19 Annalisa Mark APRN X RAY CONSULTANT Assigned PCP 11/20/19 12/10/19 Mukul Rivas PA-C [address] [place] [address], [place] [id number] Assigned PCP 12/11/19 01/21/20 Annalisa Mark APRN X RAY CONSULTANT Assigned PCP 01/22/20 02/21/22 Jacob Carmona MD [facility] [place] [address] Assigned OBGYN Provider 05/18/20 Leonor Burgos MD [facility] [address] [place] [address] Assigned PCP 02/22/22 05/16/22 Annalisa Mark APRN X RAY CONSULTANT Assigned PCP 05/17/22 08/15/22 Leonor Burgos MD [facility] [address] [place] [address] Assigned PCP 08/16/22 08/29/22 Annalisa Mark APRN X RAY CONSULTANT [address] [place] [address] Assigned PCP 08/30/22 11/21/22 Curtis Núñez MD [address] [facility] [address] [place] [address] Assigned Pulmonology Provider 09/13/22 Leonor Burgos MD [facility] [address] [place], [place] [address] Assigned PCP 11/22/22 11/28/22 Annalisa Mark APRN X RAY CONSULTANT Assigned PCP 11/29/22 01/23/23 Lisa Wright PA-C [address] [place] [address] Assigned PCP 01/24/23 documented as of this encounter
--- OUTSIDE RECORDS SUMMARY | 2024-03-15 08:48 | XMS_ITS | Encounter Summary ---
Author Organization [facility] Address [address] [place] [address]. [place] [address] Care Team Providers Care Housing Inspectors Name Role Phone Annalisa Mark APRN, CNP Primary Care Provi miguel Unavailable Deedee, Annalisa Peacock APRN, CNP Unavailable Un available Mukul Rivas PA-C Unavailable + [phone] Deedee, Annalisa Peacock APRN, CNP Unavailable Un available Mukul Rivas PA-C Unavailable + [phone] Deedee, Annalisa Peacock APRN, CNP Unavailable Un available SabJacob sylvester MD Unavailable + [phone] Leonor Burgos MD Unavailable + DeedeeAnnalisa APRN, CNP Unavailable Un available SabJacob sylvester MD Primary Care Provider Leonor Burgos MD Unavailable + [facility] Primary Care Provider DeedeeAnnalisa dean APRN, CNP Unavailable Un available Dincer, Curtis Ambriz MD Unavailable +[phone] Leonor Burgos MD Unavailable + DeedeeAnnalisa dean JADEN DIRECTOR OF SAFETY Unavailable Un available Lisa Wright PA-C Primary Care Provider [phone] Lisa Wright PA-C Unavailable [phone] Encounter Details Date Type Department Care Team (Late st Contact Info) Description 05/23/2019 MyC Medical Advice [facility] [address] [place] [address] Jacob Carmona MD [address] [place] [address] Dysuria (Primary Dx) Social History Tobacco Use Types [...] Telephone Encounter - Pamella Chapman RN - 05/24/2019 8:01 AM CDT Pt will be having a UA/UC today. See the my chart message. Pamella C., RN documented in this encounter Plan of Treatment Upcoming Encounters Date Type Department Care Team (Late st Contact Info) Description 03/17/2024 9:00 AM CDT Virtual Visit M [facility] [address] [place] [address] Chanel Asher PA-C [address] [place] [address] 03/17/2024 9:45 AM CDT Office Visit [facility] [address] [facility] [address] [place] [phone] Jacob Carmona MD [address] [place], [place] [address] documented as of this encounter Results * (ABNORMAL) UA with Microscopic (06/01/2019 2:33 PM BRUSH MAKER) Color Urine Yellow 06/01/2019 2:46 PM [facility] Appearance Urine Clear 06/01/20 19 2:46 PM [facility] Glucose Urine Negative NEG^Negat liudmila mg/dL 06/01/2019 2:46 PM [facility] Bilirubin Urine Negative NEG^Negat liudmila 06/01/2019 2:46 PM [facility] Ketones Urine Negative NEG^Negat liudmila mg/dL 06/01/2019 2:46 PM [facility] Specific Flynn Urine 1.015 1.003 - 1.035 06/01/2019 2:46 PM [facility] pH Urine 6.0 5.0 - 7.0 pH 06/01/2019 2:46 PM [facility] Protein Albumin Urine Negative NEG^Negat liudmila mg/dL 06/01/2019 2:46 PM [facility] Urobilinogen Urine 0.2 0.2 - 1.0 EU/dL 06/01/2019 2:46 PM [facility] Nitrite Urine Negative NEG^Negat liudmila 06/01/2019 2:46 PM BRUSH MAKER [facility] Blood Urine Negative NEG^Negat liudmila 06/01/2019 2:46 PM BRUSH MAKER [facility] Leukocyte Esterase Urine Negative NEG^Negat liudmila 06/01/2019 2:46 PM [facility] Source Midstream Urine 06/01/2019 2:35 PM BRUSH MAKER [facility] WBC Urine 0 - 5 OTO5^0 - 5 /HPF 06/01/2019 2:46 PM [facility] RBC Urine O - 2 OTO2^O - 2 /HPF 06/01/2019 2:46 PM BRUSH MAKER [facility] Squamous Epithelial /LPF Urine Moderate(A) FEW^Few /LPF 06/01/2019 2:46 PM BRUSH MAKER [facility] Bacteria Urine Few(A) NEG^Negat liudmila /HPF 06/01/2019 2:46 PM BRUSH MAKER [facility] Mucous Urine Present(A) NEG^Negat liudmila /LPF 06/01/2019 2:46 PM BRUSH MAKER [facility] Examination of midstream urine specimen (procedure) 06/01/2019 2:33 PM BRUSH MAKER 06/01/2019 2:34 PM BRUSH MAKER Jacob Carmona MD LAB - URINE OR DERABLES Performing Organization Address City/[facility]/ZIP Co de Phone Number [facility] [address] [place] [address] * Urine Culture Aerobic Bacterial (06/01/2019 2:32 PM BRUSH MAKER) Specimen Description Midstream Urine [facility] Culture Micro <10,000 colonies/mL mixed urogenital roberto 06/02/2019 8:47 PM BRUSH MAKER [facility] Examination of midstream urine specimen (procedure) 06/01/2019 2:32 PM BRUSH MAKER 06/01/2019 2:33 PM BRUSH MAKER Jacob Carmona MD LAB - MICRO GE NERAL ORDERABLES [facility] [address] [place] [address] documented in this encounter Visit Diagnoses Diagnosis Dysuria- Primary documented in this encounter Additional Health Concerns Infection Onset Date Last Indicated Resolved Time Rule Out COVID-19 01/14/2021 01/14/2021 01/15/2021 3:32 PM CDT Rule Out C-difficile 02/26/2022 02/26/2022 022 1:52 PM CDT C-difficile 02/26/2022 02/26/2022 03/28/2022 11:4 1 PM CDT Rule Out C-difficile 09/10/2022 09/10/2022 023 5:27 PM BRUSH MAKER C-difficile 09/10/2022 09/10/2022 10/10/2022 11:3 9 PM CDT Assessment Noted Time PHQ-9 Depression Total Score: 3 12/08/19 19 7:05 AM CDT documented as of this encounter Care Teams Housing Inspectors Relationship Specialty Start Date End Date Annalisa Mark APRN DIRECTOR OF SAFETY PCP - General Nurse Practitioner 03/22/15 06/29/22 Jacob Carmona MD [address] [place] [address] PCP - General 06/30/22 08/28/22 [facility] [id number] [place] [address] PCP - General 08/29/22 01/18/23 Lisa Wright PA-C [address] [place] [address] PCP - General Family Medicine 01/19/23 Annalisa Mark APRN DIRECTOR OF SAFETY Assigned PCP 06/06/18 07/02/19 Mukul Rivas PA-C [address] [place] [address] Assigned PCP 07/03/19 11/19/19 Annalisa Mark APRN DIRECTOR OF SAFETY Assigned PCP 11/20/19 12/10/19 Mukul Rivas PA-C [address] [place] [id number] Assigned PCP 12/11/19 01/21/20 Annalisa Mark APRN DIRECTOR OF SAFETY Assigned PCP 01/22/20 02/21/22 Jacob Carmona MD [place] [address] Assigned OBGYN Provider 05/18/20 Leonor Burgos MD PRIMARY [facility]NT [address] [facility] [address] [place] [address] Assigned PCP 02/22/22 05/16/22 Annalisa Mark APRN DIRECTOR OF SAFETY Assigned PCP 05/17/22 08/15/22 Leonor Burgos MD PRIMARY ENT [address] [facility] [address] [place], [place] [address] Assigned PCP 08/16/22 08/29/22 Annalisa Mark APRN DIRECTOR OF SAFETY [address] [place] [address] Assigned PCP 08/30/22 11/21/22 Curtis Núñez MD [address] [facility] 276 [place] [address] Assigned Pulmonology Provider 09/13/22 Leonor Burgos MD [facility] [address] [place] [address] Assigned PCP 11/22/22 11/28/22 Annalisa Mark APRN DIRECTOR OF SAFETY Assigned PCP 11/29/22 01/23/23 Lisa Wright [facility]-C [address] [facility] [phone] Assigned PCP 01/24/23 documented as of this encounter
--- OUTSIDE RECORDS SUMMARY | 2024-03-15 08:48 | XMS_ITS | Encounter Summary ---
Author Organization [facility] Address [address] [place] [address]. [place] [address] Care Team Providers Care Furniture Salesperson Name Role Phone Annalisa Mark APRN, CNP Primary Care Provi miguel Unavailable Deedee, Annalisa Peacock APRN, CNP Unavailable Un available uMkul Rivas PA-C Unavailable + [phone] Deedee, Annalisa Peacock APRN, CNP Unavailable Un available Mukul Rivas PA-C Unavailable + [phone] Deedee, Annalisa Peacock APRN, CNP Unavailable Un available SabJacob sylvester MD Unavailable + [phone] Leonor Burgos MD Unavailable + DeedeeAnnalisa APRN, CNP Unavailable Un available SabJacob sylvester MD Primary Care Provider Leonor Burgos MD Unavailable + [facility] Primary Care Provider DeedeeAnnalisa dean APRN, CNP Unavailable Un available Dincer, Curtis Ambriz MD Unavailable +[phone] Leonor Burgos MD Unavailable + DeedeeAnnalisa dean DOUBLE CUTTER INFORMATION TECHNOLOGY SPECIALIST Unavailable Un available Lisa Wright PA-C Primary Care Provider Lisa Wright PA-C Unavailable [phone] Reason for Visit * Reason Onset Date Comments Care 02/22/2019 Encounter Details Date Type Department Care Team (Late st Contact Info) Description 02/22/2019 MyC Medical Advice [facility] [address] [facility] [address] [place] [address] Jacob Carmona MD [address] [place] [address] Care Social History Tobacco Use [...] Description 03/17/2024 9:00 AM CDT Virtual Visit [address] [address] Chanel Asher PA-C [address] [place] [address] 03/17/2024 9:45 AM CDT Office Visit [facility] [address] [facility] [address] [place] [phone] Jacob Carmona MD [address] [place], [place] [address] documented as of this encounter Visit Diagnoses Not on filedocumented in this encounter Additional Health Concerns Infection Onset Date Last Indicated Resolved Time Rule Out COVID-19 01/14/2021 01/14/2021 01/15/2021 3:32 PM CDT Rule Out C-difficile 02/26/2022 02/26/2022 022 1:52 PM CDT C-difficile 02/26/2022 02/26/2022 03/28/2022 11:4 1 PM CDT Rule Out C-difficile 09/10/2022 09/10/2022 023 5:27 PM ADDICTION THERAPIST C-difficile 09/10/2022 09/10/2022 10/10/2022 11:3 9 PM CDT Assessment Noted Time PHQ-9 Depression Total Score: 3 12/08/19 19 7:05 AM CDT documented as of this encounter Care Teams Furniture Salesperson Relationship Specialty Start Date End Date Annalisa Mark APRN INFORMATION TECHNOLOGY SPECIALIST PCP - General Nurse Practitioner 03/22/15 06/29/22 Jacob Carmona MD [address] [place] [address] PCP - General 06/30/22 08/28/22 [facility] [address] [place] [address] PCP - General 08/29/22 01/18/23 Lisa Wright PA-C [address] [place] [address] PCP - General Family Medicine 01/19/23 Annalisa Mark APRN INFORMATION TECHNOLOGY SPECIALIST Assigned PCP 06/06/18 07/02/19 Mukul Rivas PA-C [address] [place] [address], [place] [address] Assigned PCP 07/03/19 11/19/19 Annalisa Mark APRN INFORMATION TECHNOLOGY SPECIALIST Assigned PCP 11/20/19 12/10/19 Mukul Rivas PA-C [address] [place] [address], [place] [address] Assigned PCP 12/11/19 01/21/20 Annalisa Mark APRN INFORMATION TECHNOLOGY SPECIALIST Assigned PCP 01/22/20 02/21/22 Jacob Carmona MD [address] [place] [address] Assigned OBGYN Provider 05/18/20 Leonor Burgos MD [facility] [address] [place] [address] Assigned PCP 02/22/22 05/16/22 Annalisa Mark APRN INFORMATION TECHNOLOGY SPECIALIST Assigned PCP 05/17/22 08/15/22 Leonor Burgos MD [facility] [address] [place] [address] Assigned PCP 08/16/22 08/29/22 Annalisa Mark APRN INFORMATION TECHNOLOGY SPECIALIST [address] [place] [address] Assigned PCP 08/30/22 11/21/22 Curtis Núñez MD [address] [facility] [address] [place], [place] [address] Assigned Pulmonology Provider 09/13/22 Leonor Burgos MD [facility] [address] [place], [place] [address] Assigned PCP 11/22/22 11/28/22 Annalisa Mark APRN INFORMATION TECHNOLOGY SPECIALIST Assigned PCP 11/29/22 01/23/23 Lisa Wright PA-C [address] [place] [address] Assigned PCP 01/24/23 documented as of this encounter
--- OUTSIDE RECORDS SUMMARY | 2024-03-15 08:48 | XMS_ITS | Encounter Summary ---
Author Organization [facility] Address [address] [place] [address]. [place] [address] Care Team Providers Care Corporate Aircraft Mechanic Name Role Phone Annalisa Mark APRN, CNP Primary Care Provi miguel Unavailable Deedee, Annalisa Peacock APRN, CNP Unavailable Un available Mukul Rivas PA-C Unavailable + [phone] Deedee, Annalisa Peacock APRN, CNP Unavailable Un available Mukul Rivas PA-C Unavailable + [phone] Deedee, Annalisa Peacock APRN, CNP Unavailable Un available SabJacob sylvester MD Unavailable + [phone] Leonor Burgos MD Unavailable + DeedeeAnnalisa APRN, CNP Unavailable Un available SabJacob sylvester MD Primary Care Provider Leonor Burgos MD Unavailable + [facility] Primary Care Provider DeedeeAnnalisa dean APRN, CNP Unavailable Un available Dincer, Curtis Ambriz MD Unavailable +[phone] Leonor Burgos MD Unavailable + Annalisa Mark BOMBSIGHT SPECIALIST RUBBER FACTORY WORKER Unavailable Un available Lisa Wright PA-C Primary Care Provider [phone] Lisa Wright PA-C Unavailable [phone] Encounter Details Date Type Department Care Team (Late st Contact Info) Description 02/25/2019 MyC Medical Advice M [facility] [address] [facility] [address] [place] [address] Jacob Carmona MD [address] [place] [address] Social History Tobacco Use Types [...] 03/17/2024 9:00 AM CDT Virtual Visit M [facility] [id number] [place] [address] Chanel Asher PA-C [address] [place] [address] 03/17/2024 9:45 AM CDT Office Visit [facility] [address] [facility] [address] [place] [phone] Jacob Carmona MD [address] [place] [address] documented as of this encounter Visit Diagnoses Not on filedocumented in this encounter Additional Health Concerns Infection Onset Date Last Indicated Resolved Time Rule Out COVID-19 01/14/2021 01/14/2021 01/15/2021 3:32 PM CDT Rule Out C-difficile 02/26/2022 02/26/2022 022 1:52 PM CDT C-difficile 02/26/2022 02/26/2022 03/28/2022 11:4 1 PM CDT Rule Out C-difficile 09/10/2022 09/10/2022 023 5:27 PM WIRE BRUSHER C-difficile 09/10/2022 09/10/2022 10/10/2022 11:3 9 PM CDT Assessment Noted Time PHQ-9 Depression Total Score: 3 12/08/19 19 7:05 AM CDT documented as of this encounter Care Teams Corporate Aircraft Mechanic Relationship Specialty Start Date End Date Annalisa Mark APRN RUBBER FACTORY WORKER PCP - General Nurse Practitioner 03/22/15 06/29/22 Jacob Carmona MD [address] [place] [address] PCP - General 06/30/22 08/28/22 [facility] [address] [place] [address] PCP - General 08/29/22 01/18/23 Lisa Wright PA-C [address] [facility] [place] [address] PCP - General Family Medicine 01/19/23 Annalisa Mark APRN RUBBER FACTORY WORKER Assigned PCP 06/06/18 07/02/19 Mukul Rivas PA-C [address] [place] [address], [place] [address] Assigned PCP 07/03/19 11/19/19 Annalisa Mark APRN RUBBER FACTORY WORKER Assigned PCP 11/20/19 12/10/19 Mukul Rivas PA-C [address] [place] [address], [place] [id number] Assigned PCP 12/11/19 01/21/20 Annalisa Mark APRN RUBBER FACTORY WORKER Assigned PCP 01/22/20 02/21/22 Jacob Carmona MD [facility] [place] [address] Assigned OBGYN Provider 05/18/20 Leonor Burgos MD [facility] [address] [place] [address] Assigned PCP 02/22/22 05/16/22 Annalisa Mark APRN RUBBER FACTORY WORKER Assigned PCP 05/17/22 08/15/22 Leonor Burgos MD [facility] [address] [place] [address] Assigned PCP 08/16/22 08/29/22 Annalisa Mark APRN RUBBER FACTORY WORKER [address] [place] [address] Assigned PCP 08/30/22 11/21/22 Curtis Núñez MD [address] [facility] [address] [place] [address] Assigned Pulmonology Provider 09/13/22 Leonor Burgos MD [facility] [address] [place], [place] [address] Assigned PCP 11/22/22 11/28/22 Annalisa Mark APRN RUBBER FACTORY WORKER Assigned PCP 11/29/22 01/23/23 Lisa Wright PA-C [address] [place] [address] Assigned PCP 01/24/23 documented as of this encounter
--- OUTSIDE RECORDS SUMMARY | 2024-03-15 08:48 | XMS_ITS | Encounter Summary ---
Author Organization [place] Address [address] [place] [address]. [place] [address] Care Team Providers Care Poultry And Fish Butcher Name Role Phone Annalisa Mark APRN, CNP Primary Care Provi miguel Unavailable Deedee, Annalisa Peacock APRN, CNP Unavailable Un available Mukul Rivas PA-C Unavailable + [phone] Deedee, Annalisa Peacock APRN, CNP Unavailable Un available Mukul Rivas PA-C Unavailable + [phone] Deedee, Annalisa Peacock APRN, CNP Unavailable Un available SabJacob sylvester MD Unavailable + [phone] Leonor Burgos MD Unavailable + DeedeeAnnalisa APRN, CNP Unavailable Un available SabJacob sylvester MD Primary Care Provider Leonor Burgos MD Unavailable + [facility] Primary Care Provider DeedeeAnnalisa dean APRN, CNP Unavailable Un available Dincer, Curtis Ambriz MD Unavailable +[phone] Leonor Burgos MD Unavailable + Annalisa Mark GAS METER READER COFFEE SOMMELIER Unavailable Un available Lias Wright PA-C Primary Care Provider Lisa Wright PA-C Unavailable [phone] Encounter Details Date Type Department Care Team (Late st Contact Info) Description 04/11/2019 MyC Medical Advice M [facility] [address] [facility] [address] [place] [address] Jacob Carmona MD [address] [place] [address] Social History Tobacco Use Types [...] 9:00 AM CDT Virtual Visit M [facility] [address] [place] [address] Chanel Asher PA-C [address] [place] [address] 03/17/2024 9:45 AM CDT Office Visit [facility] [address] [facility] [address] [place] [phone] Jacob Carmona MD [address] [place] [address] documented as of this encounter Visit Diagnoses Not on filedocumented in this encounter Additional Health Concerns Infection Onset Date Last Indicated Resolved Time Rule Out COVID-19 01/14/2021 01/14/2021 01/15/2021 3:32 PM CDT Rule Out C-difficile 02/26/2022 02/26/2022 022 1:52 PM CDT C-difficile 02/26/2022 02/26/2022 03/28/2022 11:4 1 PM CDT Rule Out C-difficile 09/10/2022 09/10/2022 023 5:27 PM PHARMACY SCHEDULER C-difficile 09/10/2022 09/10/2022 10/10/2022 11:3 9 PM CDT Assessment Noted Time PHQ-9 Depression Total Score: 3 12/08/19 19 7:05 AM CDT documented as of this encounter Care Teams Poultry And Fish Butcher Relationship Specialty Start Date End Date Annalisa Mark APRN COFFEE SOMMELIER PCP - General Nurse Practitioner 03/22/15 06/29/22 Jacob Carmona MD [address] [place] [address] PCP - General 06/30/22 08/28/22 [facility] [address] [place] [address] PCP - General 08/29/22 01/18/23 Lisa Wright PA-C [address] [facility] [place] [address] PCP - General Family Medicine 01/19/23 Annalisa Mark APRN COFFEE SOMMELIER Assigned PCP 06/06/18 07/02/19 Mukul Rivas PA-C [address] [place] [place] [address], [place] [address] Assigned PCP 07/03/19 11/19/19 Annalisa Mark APRN COFFEE SOMMELIER Assigned PCP 11/20/19 12/10/19 Mukul Rivas PA-C [address] [place] [place] [address], [place] [id number] Assigned PCP 12/11/19 01/21/20 Annalisa Mark APRN COFFEE SOMMELIER Assigned PCP 01/22/20 02/21/22 Jacob Carmona [place] [address] Assigned OBGYN Provider 05/18/20 Leonor Burgos MD [facility] [address] [place] [address] Assigned PCP 02/22/22 05/16/22 Annalisa Mark APRN COFFEE SOMMELIER Assigned PCP 05/17/22 08/15/22 Leonor Burgos MD [facility] [address] [place] [address] Assigned PCP 08/16/22 08/29/22 Annalisa Mark APRN COFFEE SOMMELIER [address] [place] [address] Assigned PCP 08/30/22 11/21/22 Curtis Núñez MD [address] [facility] 276 [place] [address] Assigned Pulmonology Provider 09/13/22 Leonor Burgos MD [facility] [address] [place], [place] [address] Assigned PCP 11/22/22 11/28/22 Annalisa Mark APRN COFFEE SOMMELIER Assigned PCP 11/29/22 01/23/23 Lisa Wright PA-C [address] [place] [address] Assigned PCP 01/24/23 documented as of this encounter
--- OUTSIDE RECORDS SUMMARY | 2024-03-15 08:48 | XMS_ITS | Encounter Summary ---
Author Organization [facility] Address [address] [place] [address]. [place] [address] Care Team Providers Care Neurological Surgeon Name Role Phone Annalisa Mark APRN, CNP Primary Care Provi miguel Unavailable Deedee, Annalisa Peacock APRN, CNP Unavailable Un available Mukul Rivas PA-C Unavailable + [phone] Deedee, Annalisa Peacock APRN, CNP Unavailable Un available Mukul Rivas PA-C Unavailable + [phone] Deedee, Annalisa Peacock APRN, CNP Unavailable Un available SabJacob sylvester MD Unavailable + [phone] Leonor Burgos MD Unavailable + DeedeeAnnalisa APRN, CNP Unavailable Un available SabJacob sylvester MD Primary Care Provider Leonor Burgos MD Unavailable + [facility] Primary Care Provider DeedeeAnnalisa dean APRN, CNP Unavailable Un available Dincer, Curtis Ambriz MD Unavailable +[phone] Leonor Burgos MD Unavailable + Annalisa Mark EXECUTIVE ADMINISTRATIVE ASSISTANT DREDGEMASTER Unavailable Un available Lisa Wright PA-C Primary Care Provider Lisa Wright PA-C Unavailable [phone] Encounter Details Date Type Department Care Team (Late st Contact Info) Description 02/26/2019 MyC Medical Advice M [facility] [address] [facility] [address] [place] [address] Jacob Carmona MD [address] [place] [address] Social History Tobacco Use [...] 03/17/2024 9:00 AM CDT Virtual Visit M [facility] [address] [place] [address] Chanel Asher PA-C [address] [place] [address] 03/17/2024 9:45 AM CDT Office Visit [facility] [address] [facility] [address] [place] [phone] Jacob Carmona MD [address] [place] [address] documented as of this encounter Visit Diagnoses Not on filedocumented in this encounter Additional Health Concerns Infection Onset Date Last Indicated Resolved Time Rule Out COVID-19 01/14/2021 01/14/2021 01/15/2021 3:32 PM CDT Rule Out C-difficile 02/26/2022 02/26/2022 022 1:52 PM CDT C-difficile 02/26/2022 02/26/2022 03/28/2022 11:4 1 PM CDT Rule Out C-difficile 09/10/2022 09/10/2022 023 5:27 PM DATABASE SECURITY EXPERT C-difficile 09/10/2022 09/10/2022 10/10/2022 11:3 9 PM CDT Assessment Noted Time PHQ-9 Depression Total Score: 3 12/08/19 19 7:05 AM CDT documented as of this encounter Care Teams Neurological Surgeon Relationship Specialty Start Date End Date Annalisa Mark APRN DREDGEMASTER PCP - General Nurse Practitioner 03/22/15 06/29/22 Jacob Carmona MD [address] [place] [address] PCP - General 06/30/22 08/28/22 [facility] [address] [place] [address] PCP - General 08/29/22 01/18/23 Lisa Wright PA-C [address] [facility] [place] [place] [address] PCP - General Family Medicine 01/19/23 Annalisa Mark APRN DREDGEMASTER Assigned PCP 06/06/18 07/02/19 Mukul Rivas PA-C [address] [place] [address], [place] [address] Assigned PCP 07/03/19 11/19/19 Annalisa Mark APRN DREDGEMASTER Assigned PCP 11/20/19 12/10/19 Mukul Rivas PA-C [address] [place] [address], [place] [id number] Assigned PCP 12/11/19 01/21/20 Annalisa Mark APRN DREDGEMASTER Assigned PCP 01/22/20 02/21/22 Jacob Carmona MD [facility] [place] [address] Assigned OBGYN Provider 05/18/20 Leonor Burgos MD [facility] [address] [place] [address] Assigned PCP 02/22/22 05/16/22 Annalisa Mark APRN DREDGEMASTER Assigned PCP 05/17/22 08/15/22 Leonor Burgos MD [facility] [address] [place] [address] Assigned PCP 08/16/22 08/29/22 Annalisa Mark APRN DREDGEMASTER [address] [place] [address] Assigned PCP 08/30/22 11/21/22 Curtis Núñez MD [address] [facility] 276 [place] [address] Assigned Pulmonology Provider 09/13/22 Leonor Burgos MD [facility] [address] [place], [place] [address] Assigned PCP 11/22/22 11/28/22 Annalisa Mark APRN DREDGEMASTER Assigned PCP 11/29/22 01/23/23 Lisa Wright PA-C [address] [place] [address] Assigned PCP 01/24/23 documented as of this encounter
--- OUTSIDE RECORDS SUMMARY | 2024-03-15 08:48 | XMS_ITS | Encounter Summary ---
Author Organization [facility] Address [address] [place] [address]. [place] [address] Care Team Providers Care Immunologist Name Role Phone Annalisa Mark APRN, CNP Primary Care Provi miguel Unavailable Deedee, Annalisa Peacock APRN, CNP Unavailable Un available Mukul Rivas PA-C Unavailable + [phone] Deedee, Annalisa Peacock APRN, CNP Unavailable Un available Mukul Rivas PA-C Unavailable + [phone] Deedee, Annalisa Peacock APRN, CNP Unavailable Un available SabJacob sylvester MD Unavailable + [phone] Leonor Burgos MD Unavailable + DeedeeAnnalisa APRN, CNP Unavailable Un available SabJacob sylvester MD Primary Care Provider Leonor Burgos MD Unavailable + [facility] Primary Care Provider DeedeeAnnalisa dean APRN, CNP Unavailable Un available Dincer, Curtis Ambriz MD Unavailable +[phone] Leonor Burgos MD Unavailable + DeedeeAnnalisa dean AQUACULTURAL WORKER SUPERVISOR LABORER PETROLEUM REFINERY Unavailable Un available Lisa Wright PA-C Primary Care Provider Lisa Wright PA-C Unavailable [phone] Reason for Visit * Reason Onset Date Comments Results 03/18/2019 Encounter Details Date Type Department Care Team (Late st Contact Info) Description 03/18/2019 MyC Medical Advice M [facility] [address] [facility] [address] [place] [address] Jacob Carmona MD [address] [place] [address] Results Social History Tobacco Use Types Packs/Day [...] Description 03/17/2024 9:00 AM CDT Virtual Visit [address] [address] Chanel Asher PA-C [address] [place] [address] 03/17/2024 9:45 AM CDT Office Visit [facility] [address] [facility] [address] [place] [phone] Jacob Carmona MD [address] [place], [place] [address] documented as of this encounter Visit Diagnoses Not on filedocumented in this encounter Additional Health Concerns Infection Onset Date Last Indicated Resolved Time Rule Out COVID-19 01/14/2021 01/14/2021 01/15/2021 3:32 PM CDT Rule Out C-difficile 02/26/2022 02/26/2022 022 1:52 PM CDT C-difficile 02/26/2022 02/26/2022 03/28/2022 11:4 1 PM CDT Rule Out C-difficile 09/10/2022 09/10/2022 023 5:27 PM SPONGE PACKER C-difficile 09/10/2022 09/10/2022 10/10/2022 11:3 9 PM CDT Assessment Noted Time PHQ-9 Depression Total Score: 3 12/08/19 19 7:05 AM CDT documented as of this encounter Care Teams Immunologist Relationship Specialty Start Date End Date Annalisa Mark APRN LABORER PETROLEUM REFINERY PCP - General Nurse Practitioner 03/22/15 06/29/22 Jacob Carmona MD [address] [place] [address] PCP - General 06/30/22 08/28/22 [facility] [address] [place] [address] PCP - General 08/29/22 01/18/23 Lisa Wrigth PA-C [address] [place] [address] PCP - General Family Medicine 01/19/23 Annalisa Mark APRN LABORER PETROLEUM REFINERY Assigned PCP 06/06/18 07/02/19 Mukul Rivas PA-C [address] [place] [address], [place] [address] Assigned PCP 07/03/19 11/19/19 Annalisa Mark APRN LABORER PETROLEUM REFINERY Assigned PCP 11/20/19 12/10/19 Mukul Rivas PA-C [address] [place] [address], [place] [address] Assigned PCP 12/11/19 01/21/20 Annalisa Mark APRN LABORER PETROLEUM REFINERY Assigned PCP 01/22/20 02/21/22 Jacob Carmona MD [address] [place] [address] Assigned OBGYN Provider 05/18/20 Leonor Burgos MD [facility] [address] [place] [address] Assigned PCP 02/22/22 05/16/22 Annalisa Mark APRN LABORER PETROLEUM REFINERY Assigned PCP 05/17/22 08/15/22 Leonor Burgos MD [facility] [address] [place] [address] Assigned PCP 08/16/22 08/29/22 Annalisa Mark APRN LABORER PETROLEUM REFINERY [address] [place] [address] Assigned PCP 08/30/22 11/21/22 Curtis Núñez MD [address] [facility] 276 [place], [place] [address] Assigned Pulmonology Provider 09/13/22 Leonor Burgos MD [facility] [address] [place], [place] [address] Assigned PCP 11/22/22 11/28/22 Annalisa Mark APRN LABORER PETROLEUM REFINERY Assigned PCP 11/29/22 01/23/23 Lisa Wright PA-C [address] [place] [address] Assigned PCP 01/24/23 documented as of this encounter
--- OUTSIDE RECORDS SUMMARY | 2024-03-15 08:48 | XMS_ITS | Encounter Summary ---
Author Organization [facility] Address [address] [place] [address]. [place] [address] Care Team Providers Care Metal Base Blocker Name Role Phone Annalisa Mark APRN, CNP Primary Care Provi miguel Unavailable Mukul Rivas PA-C Unavailable + [phone] DeedeeAnnalisa dean APRN, CNP Unavailable Un available Mukul Rivas PA-C Unavailable + [phone] DeedeeAnnalsia dean APRN, CNP Unavailable Un available Jacob Carmona MD Unavailable + [phone] Leonor Burgos MD Unavailable + DeedeeAnnalisa APRN, CNP Unavailable Un available Jacob Carmona MD Primary Care Provider Leonor Burgos MD Unavailable + [facility] Primary Care Provider DeedeeAnnalisa dean APRN, CNP Unavailable Un available Curtis Núñez MD Unavailable +[phone] Leonor Burgos MD Unavailable + DeedeeAnnalisa APRN, CNP Unavailable Un available Lisa Wright PA-C Primary Care Provider KyleNormLisakendall Moore PA-C Unavailable [phone] Encounter Details Date Type Department Care Team (Late st Contact Info) Description 07/06/2019 MyC Medical Advice M [facility] [address] [facility] [address] [place] [address] Jacob Carmona MD [address] [place] [address] Social History Tobacco Use Types [...] AM CDT Virtual Visit [facility] [id number] [place] [phone] Chanel Asher PA-C [address] [place] [phone] 03/17/2024 9:45 AM CDT Office Visit [facility] [address] [facility] [address] [place] [phone] Jacob Carmona MD [address] [place], [place] [address] documented as of this encounter Visit Diagnoses Not on filedocumented in this encounter Additional Health Concerns Infection Onset Date Last Indicated Resolved Time Rule Out COVID-19 01/14/2021 01/14/2021 01/15/2021 3:32 PM CDT Rule Out C-difficile 02/26/2022 02/26/2022 022 1:52 PM CDT C-difficile 02/26/2022 02/26/2022 03/28/2022 11:4 1 PM CDT Rule Out C-difficile 09/10/2022 09/10/2022 023 5:27 PM MOWER MECHANIC C-difficile 09/10/2022 09/10/2022 10/10/2022 11:3 9 PM CDT Assessment Noted Time PHQ-9 Depression Total Score: 3 12/08/19 19 7:05 AM CDT documented as of this encounter Care Teams Metal Base Blocker Relationship Specialty Start Date End Date Annalisa Mark APRN CNP PCP - General Nurse Practitioner 03/22/15 06/29/22 Jacob Carmona MD [address] [place] [address] PCP - General 06/30/22 08/28/22 [facility] [address] [place], [place] [id number] PCP - General 08/29/22 01/18/23 Lisa Wright PA-C [address] [place] [address] PCP - General Family Medicine 01/19/23 Mukul Rivas PA-C [address] [place] [address] Assigned PCP 07/03/19 11/19/19 Annalisa Mark APRN REAL ESTATE VALUER Assigned PCP 11/20/19 12/10/19 Mukul Rivas PA-C [address] [place] [address], [place] [address] Assigned PCP 12/11/19 01/21/20 Annalisa Mark APRN REAL ESTATE VALUER Assigned PCP 01/22/20 02/21/22 Jacob Carmona MD [address] [place] [address] Assigned OBGYN Provider 05/18/20 Leonor Burgos MD [facility] [address] [place] [address] Assigned PCP 02/22/22 05/16/22 Annalisa Mark APRN REAL ESTATE VALUER Assigned PCP 05/17/22 08/15/22 Leonor Burgos MD [facility] [address] [place] [address] Assigned PCP 08/16/22 08/29/22 Annalisa Mark APRN REAL ESTATE VALUER [address] [facility] [place] [address] Assigned PCP 08/30/22 11/21/22 Curtis Núñez MD [address] [facility] [address] [place] [address] Assigned Pulmonology Provider 09/13/22 Leonor Burgos MD [facility] [address] [place], [place] [address] Assigned PCP 11/22/22 11/28/22 Annalisa Mark APRN REAL ESTATE VALUER Assigned PCP 11/29/22 01/23/23 Lisa Wright, DEMARCUS [address] [place] [address] Assigned PCP 01/24/23 documented as of this encounter
--- OUTSIDE RECORDS SUMMARY | 2024-03-15 08:48 | XMS_ITS | Encounter Summary ---
Author Organization [place] Address [address] [place] [address]. [place] [address] Care Team Providers Care Corduroy Cutting Supervisor Name Role Phone Annalisa Mark APRN, CNP Primary Care Provi miguel Unavailable Deedee, Annalisa Peacock APRN, CNP Unavailable Un available Mukul Rivas PA-C Unavailable + [phone] Deedee, Annalisa Peacock APRN, CNP Unavailable Un available Mukul Rivas PA-C Unavailable + [phone] Deedee, Annalisa Peacock APRN, CNP Unavailable Un available SabJacob sylvester MD Unavailable + [phone] Leonor Burgos MD Unavailable + DeedeeAnnalisa APRN, CNP Unavailable Un available SabJacob sylvester MD Primary Care Provider Leonor Burgos MD Unavailable + Located Within [facility] Primary Care Provider DeedeeAnnalisa dean APRN, CNP Unavailable Un available Dincer, Crutis Ambriz MD Unavailable +[phone] Leonor Burgos MD Unavailable + Annalisa Mark BOOK ILLUSTRATOR SILK WASHING 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 Unavailable Un available Lisa Wright PA-C Primary Care Provider Lisa Wright PA-C Unavailable [phone] Encounter Details Date Type Department Care Team (Late st Contact Info) Description 05/12/2019 MyC Medical Advice [facility] [address] [facility] [address] [place] [address] Jacob Carmona MD [address] [place] [address] Social History Tobacco Use Types [...] 03/17/2024 9:00 AM CDT Virtual Visit [facility] [id number] [place] [address] Chanel Asher PA-C [address] [place] [address] 03/17/2024 9:45 AM CDT Office Visit [facility] [address] [place] [phone] Jacob Carmona MD [address] [place] [address] documented as of this encounter Visit Diagnoses Not on filedocumented in this encounter Additional Health Concerns Infection Onset Date Last Indicated Resolved Time Rule Out COVID-19 01/14/2021 01/14/2021 01/15/2021 3:32 PM CDT Rule Out C-difficile 02/26/2022 02/26/2022 022 1:52 PM CDT C-difficile 02/26/2022 02/26/2022 03/28/2022 11:4 1 PM CDT Rule Out C-difficile 09/10/2022 09/10/2022 023 5:27 PM [facility] [employer] C-difficile 09/10/2022 09/10/2022 10/10/2022 11:3 9 PM CDT Assessment Noted Time PHQ-9 Depression Total Score: 3 12/08/19 19 7:05 AM CDT documented as of this encounter Care Teams Corduroy Cutting Supervisor Relationship Specialty Start Date End Date Annalisa Mark APRN SILK WASHING 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 PCP - General Nurse Practitioner 03/22/15 06/29/22 Jacob Carmona MD [address] [place] [address] PCP - General 06/30/22 08/28/22 [facility] [address] [place] [address] PCP - General 08/29/22 01/18/23 Lisa Wright PA-C [address] [facility] [place] [address] PCP - General Family Medicine 01/19/23 Annalisa Mark APRN SILK WASHING 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 Assigned PCP 06/06/18 07/02/19 Mukul Rivas PA-C [address] [place] [address], [place] [address] Assigned PCP 07/03/19 11/19/19 Annalisa Mark APRN SILK WASHING 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 Assigned PCP 11/20/19 12/10/19 Mukul Rivas PA-C [address] [place] [address], [place] [id number] Assigned PCP 12/11/19 01/21/20 Annalisa Mark APRN SILK WASHING 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 Assigned PCP 01/22/20 02/21/22 Jacob Carmona MD [facility] [place] [address] Assigned OBGYN Provider 05/18/20 Leonor Burgos MD [facility] [address] [place] [address] Assigned PCP 02/22/22 05/16/22 Annalisa Mark APRN SILK WASHING 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 Assigned PCP 05/17/22 08/15/22 Leonor Burgos MD [facility] [address] [place] [address] Assigned PCP 08/16/22 08/29/22 Annalisa Mark APRN SILK WASHING 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 [address] [place] [address] Assigned PCP 08/30/22 11/21/22 Curtis Núñez MD [address] [facility] [address] [place] [address] Assigned Pulmonology Provider 09/13/22 Leonor Burgos MD [facility] [address] [place], [place] [address] Assigned PCP 11/22/22 11/28/22 Annalisa Mark APRN SILK WASHING 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 Assigned PCP 11/29/22 01/23/23 Lisa Wright PA-C [address] [place] [address] Assigned PCP 01/24/23 documented as of this encounter
--- OUTSIDE RECORDS SUMMARY | 2024-03-15 08:48 | XMS_ITS | Encounter Summary ---
Author Organization [place] Address [address] [place] [address]. [place] [address] Care Team Providers Care Shore Working Supervisor Name Role Phone Annalisa Mark APRN, CNP Primary Care Provi miguel Unavailable Deedee, Annalisa Peacock APRN, CNP Unavailable Un available Mukul Rivas PA-C Unavailable + [phone] Deedee, Annalisa Peacock APRN, CNP Unavailable Un available Mukul Rivas PA-C Unavailable + [phone] Deedee, Annalisa Peacock APRN, CNP Unavailable Un available SabJacob sylvester MD Unavailable + [phone] Leonor Burgos MD Unavailable + DeedeeAnnalisa APRN, CNP Unavailable Un available SabJacob sylvester MD Primary Care Provider Leonor Burgos MD Unavailable + [facility] Primary Care Provider DeedeeAnnalisa dean APRN, CNP Unavailable Un available Dincer, Curtis Ambriz MD Unavailable +[phone] Leonor Burgos MD Unavailable + DeedeeAnnalisa dean KNIFE OPERATOR SKIP LOCATOR Unavailable Un available Lisa Wright PA-C Primary Care Provider Lisa Wright PA-C Unavailable [phone] Reason for Visit * Reason Onset Date Comments Results 06/16/2019 Encounter Details Date Type Department Care Team (Late st Contact Info) Description 06/16/2019 MyC Medical Advice [facility] [address] [facility] [address] [place] [address] Jacob Carmona MD [address] [place] [address] Results Social History Tobacco Use [...] encounter Miscellaneous Notes * Telephone Encounter - Yakelin Flynn DO - 06/16/2019 11:29 AM AUTO TRAVEL COUNSELOR Sure TRAVEL COUNSELOR * Telephone Encounter - Casie Santos RN - 06/16/2019 11:21 AM CST Pt asks about cbc and glucose result. CBC nml for ? Nml GCT. Okay to report to her? Casie Escobedo R.[facility] TRAVEL COUNSELOR * Telephone Encounter - Casie Santos RN - 06/16/2019 9:48 AM CST Glucose not back yet, will wait for that result. Casie Escobedo R.N[facility] TRAVEL COUNSELOR documented in this encounter Plan of Treatment Upcoming Encounters Date Type Department Care Team (Late st Contact Info) Description 03/17/2024 9:00 AM CDT Virtual Visit [address] [phone] Chanel Asher PA-C [id number] [place] [phone] 03/17/2024 9:45 AM CDT Office Visit [facility] [address] [facility] [address] [place] [phone] Jacob Carmona MD [address] [place] [address] documented as of this encounter Visit Diagnoses Not on filedocumented in this encounter Additional Health Concerns Infection Onset Date Last Indicated Resolved Time Rule Out COVID-19 01/14/2021 01/14/2021 01/15/2021 3:32 PM CDT Rule Out C-difficile 02/26/2022 02/26/2022 022 1:52 PM CDT C-difficile 02/26/2022 02/26/2022 03/28/2022 11:4 1 PM CDT Rule Out C-difficile 09/10/2022 09/10/2022 023 5:27 PM AUTO TRAVEL COUNSELOR C-difficile 09/10/2022 09/10/2022 10/10/2022 11:3 9 PM CDT Assessment Noted Time PHQ-9 Depression Total Score: 3 12/08/19 19 7:05 AM CDT documented as of this encounter Care Teams Shore Working Supervisor Relationship Specialty Start Date End Date Annalisa Mark APRN SKIP LOCATOR PCP - General Nurse Practitioner 03/22/15 06/29/22 Jacob Carmona MD [address] [place] [address] PCP - General 06/30/22 08/28/22 [facility] [address] [place] [address] PCP - General 08/29/22 01/18/23 Lisa Wright PA-C [address] [place] [address] PCP - General Family Medicine 01/19/23 Annalisa Mark APRN SKIP LOCATOR Assigned PCP 06/06/18 07/02/19 Mukul Rivas PA-C [address] [place] [address] Assigned PCP 07/03/19 11/19/19 Annalisa Mark APRN SKIP LOCATOR Assigned PCP 11/20/19 12/10/19 Mukul Rivas PA-C [address] [place] [address] Assigned PCP 12/11/19 01/21/20 Annalisa Mark APRN SKIP LOCATOR Assigned PCP 01/22/20 02/21/22 Jacob Carmona MD [address] [place] [address] Assigned OBGYN Provider 05/18/20 Leonor Burgos MD [facility] [address] [facility] [address] [place] [address] Assigned PCP 02/22/22 05/16/22 Annalisa Mark APRN SKIP LOCATOR Assigned PCP 05/17/22 08/15/22 Leonor Burgos MD [facility] [address] [facility] [address] [place] [address] Assigned PCP 08/16/22 08/29/22 Annalisa Mark APRN SKIP LOCATOR [address] [place] [address] Assigned PCP 08/30/22 11/21/22 Curtis Núñez MD [address] [facility] [address] [place], [place] [address] Assigned Pulmonology Provider 09/13/22 Leonor Burgos MD [facility] [address] [facility] [address] [place] [address] Assigned PCP 11/22/22 11/28/22 Annalisa Mark APRN SKIP LOCATOR Assigned PCP 11/29/22 01/23/23 Lisa Wright PA-C [address] [place] [address] Assigned PCP 01/24/23 documented as of this encounter
--- OUTSIDE RECORDS SUMMARY | 2024-03-15 08:48 | XMS_ITS | Encounter Summary ---
Author Organization [place] Address [address] [place] [address]. [place] [address] Care Team Providers Care Lofter Name Role Phone Annalisa Mark APRN, CNP Primary Care Provi miguel Unavailable Deedee, Annalisa Peacock APRN, CNP Unavailable Un available Mukul Rivas PA-C Unavailable + [phone] Deedee, Annalisa Peacock APRN, CNP Unavailable Un available Mukul iRvas PA-C Unavailable + [phone] Deedee, Annalisa Peacock APRN, CNP Unavailable Un available SabJacob sylvester MD Unavailable + [phone] Leonor Burgos MD Unavailable + DeedeeAnnalisa APRN, CNP Unavailable Un available SabJacob sylvester MD Primary Care Provider Leonor Burgos MD Unavailable + [facility] Primary Care Provider DeedeeAnnalisa dean APRN, CNP Unavailable Un available Dincer, Curtis Ambriz MD Unavailable +[phone] Leonor Burgos MD Unavailable + DeedeeAnnalisa deane JADEN WIRE PHOTO OPERATOR NEWS Unavailable Un available Lisa Wright PA-C Primary Care Provider Lisa Wright PA-C Unavailable [phone] Encounter Details Date Type Department Care Team (Late st Contact Info) Description 06/02/2019 MyC Medical Advice [facility] [address] [place] [address] Jacob Carmona MD [address] [place] [address] Social History Tobacco Use Types [...] Description 03/17/2024 9:00 AM CDT Virtual Visit [address] [address] Chanel Asher PA-C [address] [place] [address] 03/17/2024 9:45 AM CDT Office Visit [facility] [address] [facility] [address] [place] [phone] Jacob Cramona MD [address] [place] [address] documented as of this encounter Visit Diagnoses Not on filedocumented in this encounter Additional Health Concerns Infection Onset Date Last Indicated Resolved Time Rule Out COVID-19 01/14/2021 01/14/2021 01/15/2021 3:32 PM CDT Rule Out C-difficile 02/26/2022 02/26/2022 022 1:52 PM CDT C-difficile 02/26/2022 02/26/2022 03/28/2022 11:4 1 PM CDT Rule Out C-difficile 09/10/2022 09/10/2022 023 5:27 PM CIRCUIT DESIGN ENGINEER C-difficile 09/10/2022 09/10/2022 10/10/2022 11:3 9 PM CDT Assessment Noted Time PHQ-9 Depression Total Score: 3 12/08/19 19 7:05 AM CDT documented as of this encounter Care Teams Lofter Relationship Specialty Start Date End Date Annalisa Mark APRN WIRE PHOTO OPERATOR NEWS PCP - General Nurse Practitioner 03/22/15 06/29/22 Jacob Carmona MD [address] [place] [address] PCP - General 06/30/22 08/28/22 [facility] [address] [place] [address] PCP - General 08/29/22 01/18/23 Lisa Wright PA-C [address] [place] [address] PCP - General Family Medicine 01/19/23 Annalisa Mark APRN WIRE PHOTO OPERATOR NEWS Assigned PCP 06/06/18 07/02/19 Mukul Rivas PA-C [address] [place] [address], [place] [address] Assigned PCP 07/03/19 11/19/19 Annalisa Mark APRN WIRE PHOTO OPERATOR NEWS Assigned PCP 11/20/19 12/10/19 Mukul Rivas PA-C [address] [place] [address], [place] [address] Assigned PCP 12/11/19 01/21/20 Annalisa Mark APRN WIRE PHOTO OPERATOR NEWS Assigned PCP 01/22/20 02/21/22 Jacob Carmona MD [address] [place] [address] Assigned OBGYN Provider 05/18/20 Leonor Burgos MD [facility] [address] [place] [address] Assigned PCP 02/22/22 05/16/22 Annalisa Mark APRN WIRE PHOTO OPERATOR NEWS Assigned PCP 05/17/22 08/15/22 Leonor Burgos MD [facility] [address] [place] [address] Assigned PCP 08/16/22 08/29/22 Annalisa Mark APRN WIRE PHOTO OPERATOR NEWS [address] [place] [address] Assigned PCP 08/30/22 11/21/22 Curtis Núñez MD [address] [facility] [address] [place], [place] [address] Assigned Pulmonology Provider 09/13/22 Leonor Burgos MD [facility] [address] [place], [place] [address] Assigned PCP 11/22/22 11/28/22 Annalisa Mark APRN WIRE PHOTO OPERATOR NEWS Assigned PCP 11/29/22 01/23/23 Lisa Wright PA-C [address] [place] [address] Assigned PCP 01/24/23 documented as of this encounter
--- OUTSIDE RECORDS SUMMARY | 2024-03-15 08:48 | XMS_ITS | Encounter Summary ---
Author Organization [facility] Address [address] [place] [address]. [place] [address] Care Team Providers Care Manager Pharmacy Name Role Phone Annalisa Mark APRN, CNP Primary Care Provi miguel Unavailable Deedee, Annalisa Peacock APRN, CNP Unavailable Un available Mukul Rivas PA-C Unavailable + [phone] Deedee, Annalisa Peacock APRN, CNP Unavailable Un available Mukul Rivas PA-C Unavailable + [phone] Deedee, nAnalisa Peacock APRN, CNP Unavailable Un available SabMike sylvester MD Unavailable + [phone] Leonor Burgos MD Unavailable + DeedeeAnnalisa APRN, CNP Unavailable Un available SabMike sylvester MD Primary Care Provider Leonor Burgos MD Unavailable + [facility] Primary Care Provider DeedeeAnnalisa dean APRN, CNP Unavailable Un available Dincer, Curtis Ambriz MD Unavailable +[phone] Leonor Burgos MD Unavailable + DeedeeAnnalisa dean JADEN SAT MATH TUTOR Unavailable Un available Lisa Wright PA-C Primary Care Provider Lisa Wright PA-C Unavailable [phone] Reason for Referral * Diagnostic Imaging Ultrasound (Routine) - Closed Specialty Diagnoses / Procedures Referred By Contac t Referred To Contact Diagnoses related condition, antepartum Procedures [facility] US Comprehensive Single Mike Martínez MD [address] [place] [address] Referral ID Status Reason Start Date Expiration Date Visits Re quested Visits Authorized [id number] Closed 02/24/2019 02/24/2020 1 1 * Diagnostic Imaging Ultrasound (Routine) - Closed Specialty Diagnoses / Procedures Referred By Contac t Referred To Contact Diagnoses related condition, antepartum Procedures Maternal Nuchal Translucency Mike Martínez MD [address] [place] [address] Referral ID Status Reason Start Date Expiration Date Visits Re quested Visits Authorized [id number] Closed 02/24/2019 02/24/2020 1 1 * (Routine) - Closed Specialty Diagnoses / Procedures Referred By Contac t Referred To Contact Diagnoses related condition, antepartum Mike Martínez MD [address] [place] [address] Referral ID Status Reason Start Date Expiration Date Visits Re quested Visits Authorized [id number] Closed 02/24/2019 02/24/2020 1 1 Comments AMA, Sibling Hx of Cystic Fibrosis Encounter Details Date Type Department Care Team (Late st Contact Info) Description 02/24/2019 Transcribe Orders [facility] [place] [address] [phone] Mike Martínez MD [address] [place], [place] [address] related condition, antepartum (Primary Dx) Social History Tobacco Use Types [...] 9:00 AM CDT Virtual Visit [facility] [id number] [place] [phone] Chanel Asher PA-C [id number] [place] [address] 03/17/2024 9:45 AM CDT Office Visit [facility] [address] [facility] [address] [place] [phone] Mike Martínez MD [address] [place] [address] Scheduled Referrals Name Type Priority Associated Diagnoses Orde r Schedule [facility] Genetic Counseling Referral Routine related condition, antepartum 1 Occurrences starting 02/24/2019 until 02/25/2020 documented as of this encounter Results * [facility] US Comprehensive Single (04/29/2019 2:08 PM CDT) Anatomical Region Laterality Modality Ultrasound 04/29/2019 1:25 PM CDT Impressions 04/29/2019 2:18 PM CDT IMPRESSION ----- Sonographic biometry agrees with gestational age predicted by assigned JUDD The anatomy was adequately visualized and appeared normal. None of the anomalies commonly detected by ultrasound were evident. No markers for aneuploidy seen. Placenta previa. Narrative 04/29/2019 2:18 PM CDT Comprehensive ----- Pat. Name: MARCELINO DALEY Study Date: 04/29/2019 1:25pm Pat. NO: [id number] Referring ??: MIKE MARTÍNEZ Site: [facility] Slat Basket Maker Helper Machine: Lorrie Pennington RDMS : 1985 Age: 34 ----- INDICATION ----- Advanced Maternal Age, low risk NIPT METHOD ----- Transabdominal ultrasound examination. View: Sufficient ----- [place] . Number of fetuses: 1 DATING ----- ? Date ?Details ?Gest. age ?JUDD LMP ?12/10/2018 ? 20 w + 0 d ? 09/16/2019 Prior assessment ? 02/14/2019 ? GA: 8 w + 6 d ?19 w + 3 d ? 09/20/2019 U/S ? 04/29/2019 ? based upon AC, BPD, Femur, HC ?19 w + 6 d ? 09/17/2019 Assigned dating ?Dating performed on 04/29/2019, based on the LMP ?20 w + 0 d ? 09/16/2019 GENERAL EVALUATION ----- Cardiac activity present. FHR 144 bpm. movements present. Presentation cephalic. Placenta posterior, placenta previa . Umbilical cord 3 vessel cord. Amniotic fluid MVP 4.0 cm. BIOMETRY ----- Main Biometry: BPD ?46.4 ?mm ? 20w [...] lb 11 ? oz EFW by ?Hadlock ([id number]) Head / Face / Neck Biometry: Manager Client Service ? 5.0 ? mm CM ?3.6 ? mm Nasal bone ? 5.9 ? mm Nuchal fold ? 3.3 ? mm ANATOMY ----- The following structures appear normal: Head / [...] cava. Inferior vena cava. 3-vessel ? view. 3-grnzsx-acitrit view. Cardiac position. Cardiac size. Cardiac rhythm. ? Right lung. Left lung. Diaphragm. Abdomen ? Abdominal wall. Cord insertion. Stomach. Kidneys. Bladder. Liver. Bowel. Genitals. Spine ?Cervical spine. Thoracic spine. Lumbar spine. Sacral spine. Extremities / Skeleton ?Right arm. Right hand. Left arm. Left hand. Right leg. Right foot. Left leg. Left foot. Gender: female. MATERNAL STRUCTURES ----- Cervix ?Visualized ? Appearance: Appears Closed ? Cervical length 49.6 mm Right Ovary ?Visualized Left Ovary ?Visualized RECOMMENDATION ----- We discussed the findings on today's ultrasound with the patient. A placenta previa is noted on today's ultrasound. A follow-up ultrasound in 6 weeks is recommended. Return to primary provider for continued care. Thank-you for the opportunity to participate in the care of this patient. If you have questions regarding today's evaluation or if we can be of further service, please contact the [facility]. anomalies may be present but not detected Procedure Note Luis Alfredo Aguilera MD - 04/29/2019 Comprehensive ----- Pat. Name:Rolf DALEY Date:04/29/2019 1:25pm Pat. NO: [id number] MD:MIKE MARTÍNEZ [facility]Lorrie Pennington RDMS :1985Age:34 ----- INDICATION ----- Advanced Maternal Age, low risk NIPT METHOD ----- Transabdominal ultrasound examination. View: Sufficient ----- [place] . Number of fetuses: 1 DATING ----- DateDetailsGest. age JUDD LMP 12/10/201820 w + 0 d 09/16/2019 Prior assessment 02/14/2019 GA: 8 w +6 d19 w + 3 d 09/20/2019 U/S 04/29/2019based upon AC, BPD, Femur, HC19 w + 6 d 09/17/2019 Assigned dating Dating performed on 04/29/2019, based onthe LMP 20 w+ 0 d 09/16/2019 GENERAL EVALUATION ----- Cardiac activity present. FHR 144 bpm. movements present. Presentation cephalic. Placenta posterior, placenta previa . Umbilical cord 3 vessel cord. Amniotic fluid MVP 4.0 cm. BIOMETRY ----- Main Biometry: BPD 46.4 mm20w 0d Hadlock OFD 59.3 mm19w 2d Nicolaides HC 167.6 mm19w 3d Hadlock Cerebellum tr 20.5 mm19w 4d Nicolaides AC 147.4 mm20w 0d Hadlock Femur 31.4 mm19w 5d Hadlock Humerus 29.7 mm19w 5d Bisi Weight Calculation: EFW 317 g EFW (lb,oz) 0 lb 11 oz EFW by Hadlock (QGD-OZ-SH-FL) Head / Face / Neck Biometry: Manager Client Service 5.0 mm CM 3.6 mm Nasal bone 5.9 mm Nuchal fold 3.3 mm ANATOMY ----- The following structures appear normal: Head / Neck Cranium. Head size. Head shape.Lateral ventricles. Choroid plexus. Midline falx. Cavum septi pellucidi.Cerebellum. Cisterna magna. Parenchyma. Thalami. Vermis. Neck. Nuchal fold. Face Lips. Profile. Nose. Maxilla.Mandible. Orbits. Lens. Heart / Thorax 4-chamber view. RVOT view. LVOT view.Situs. Aortic arch view. Bicaval view. Ductal arch view. Superior venacava. Inferior vena cava. 3-vessel view. 8-pmqtof-fxgolhc view.Cardiac position. Cardiac size. Cardiac rhythm. Right lung. Left lung.Diaphragm. Abdomen Abdominal wall. Cord insertion.Stomach. Kidneys. Bladder. Liver. Bowel. Genitals. Spine Cervical spine. Thoracic spine.Lumbar spine. Sacral spine. Extremities / Skeleton Right arm. Right hand. Left arm. Lefthand. Right leg. Right foot. Left leg. Left foot. Gender: female. MATERNAL STRUCTURES ----- Cervix Visualized Appearance: Appears Closed Cervical length 49.6 mm Right Ovary Visualized Left Ovary Visualized RECOMMENDATION ----- We discussed the findings on today's ultrasound with the patient. A placenta previa is noted on today's ultrasound. A follow-up ultrasoundin 6 weeks is recommended. Return to primary provider for continuedprenatal care. Thank-you for the opportunity to participate in the care of this patient.If you have questions regarding today's evaluation or if we can be offurther service, please contact the [facility]. anomalies may be present but not detected IMPRESSION ----- Sonographic biometry agrees with gestational age predicted by assigned EDDThe anatomy was adequately visualized and appeared normal. None ofthe anomalies commonly detected by ultrasound were evident. No markers for aneuploidyseen. Placenta previa. Mike Martínez MD [facility] US ORD ERABLES * Maternal Nuchal Translucency (03/11/2019 12:13 PM CDT) Anatomical Region Laterality Modality Ultrasound 03/11/2019 11:4 7 AM CDT Impressions 03/11/2019 12:24 PM CDT IMPRESSION ----- 1) [place] intrauterine at 13 & 0/7 weeks gestational age. 2) The nasal bone was visualized. 3) Measurements consistent with established dates. 4) Visualized anatomy appears normal for early gestational age. Narrative 03/11/2019 12:24 PM CDT 1st Trim ----- Pat. Name: MARCELINO DALEY Study Date: 03/11/2019 11:47am Pat. NO: [id number] Referring ??: MIKE MARTÍNEZ Site: [facility] Slat Basket Maker Helper Machine: Chiqui Helton RDMS : 1985 Age: 33 ----- INDICATION ----- Advanced Maternal Age METHOD ----- Transabdominal ultrasound examination. View: Sufficient ----- [place] . Number of fetuses: 1 DATING ----- ? Date ?Details ?Gest. age ?JUDD LMP ?12/10/2018 ? 13 w + 0 d ? 09/16/2019 Prior assessment ? 02/14/2019 ? GA: 8 w + 6 d ?12 w + 3 d ? 09/20/2019 U/S ? 03/11/2019 ? based upon CRL ?13 w + 0 d ? 09/16/2019 Assigned dating ?Dating performed on 03/11/2019, based on the LMP ?13 w + 0 d ? 09/16/2019 GENERAL EVALUATION ----- Cardiac activity present. Placenta posterior. Cord vessels 3 vessel cord. Amniotic fluid normal amount. BIOMETRY ----- FHR ?155 ? bpm CRL ? 67.2 ? mm ? 13w 0d ? Hadlock ANATOMY ----- The following structures appear normal: Neck. The following structures were visualized: Cranium. Face. Abdominal wall. GI tract. Urogenital tract. Arms. Legs. MATERNAL STRUCTURES ----- Cervix ?Visualized ? Appearance: Appears Closed Right Ovary ?Visualized Left Ovary ?Visualized RECOMMENDATION ----- Thank-you for referring your patient for a [...] another affected child. Comprehensive ultrasound is scheduled here at 18-20 weeks. Return to primary provider for continued care. If you have questions regarding today's evaluation or if we can be of further service, please contact the [facility]. anomalies may be present but not detected Procedure Note CrossJoya MD - 03/11/2019 1st Trim ----- Pat. Name:Rolf DALEY Date:03/11/2019 11:47am Pat. NO: [id number] MD:MIKE MARTÍNEZ [facility]Chiqui Helton RDMS :1985Age:33 ----- INDICATION ----- Advanced Maternal Age METHOD ----- Transabdominal ultrasound examination. View: Sufficient ----- [place] . Number of fetuses: 1 DATING ----- DateDetailsGest. age JUDD LMP 12/10/201813 w + 0 d 09/16/2019 Prior assessment 02/14/2019 GA: 8 w +6 d12 w + 3 d 09/20/2019 U/S 03/11/2019based upon CRL13 w + 0 d 09/16/2019 Assigned dating Dating performed on 03/11/2019, based onthe LMP 13 w +0 d 09/16/2019 GENERAL EVALUATION ----- Cardiac activity present. Placenta posterior. Cord vessels 3 vessel cord. Amniotic fluid normal amount. BIOMETRY ----- FHR 155 bpm CRL 67.2 mm13w 0d Hadlock ANATOMY ----- The following structures appear normal: Neck. The following structures were visualized: Cranium. Face. Abdominal wall. GI tract. Urogenital tract. Arms. Legs. MATERNAL STRUCTURES ----- Cervix Visualized Appearance: Appears Closed Right Ovary Visualized Left Ovary Visualized RECOMMENDATION ----- Thank-you for referring your patient for a nuchal translucency ultrasound.She had cell free DNA showing the expected amounts of chromosomes 21, 18 &13. She has a prior child with CF. She considered IVF for preimplantation genetictesting and opted not to pursue that. She declines invasive testing forthis knowing there is a 25% chance of another affected child. Comprehensive ultrasound is scheduled here at 18-20 weeks. Return to primary provider for continued care. If you have questions regarding today's evaluation or if we can be offurther service, please contact the [facility]. anomalies may be present but not detected IMPRESSION ----- 1) [place] intrauterine at 13 & 0/7 weeks gestational age. 2) The nasal bone was visualized. 3) Measurements consistent with established dates. 4) Visualized anatomy appears normal for early gestational age. Mike Martínez MD [facility] ORD ERABLES documented in this encounter Visit Diagnoses Diagnosis related condition, antepartum- Primary related condition, antepartum related condition, antepartum documented in this encounter Additional Health Concerns Infection Onset Date Last Indicated Resolved Time Rule Out COVID-19 01/14/2021 01/14/2021 01/15/2021 3:32 PM CDT Rule Out C-difficile 02/26/2022 02/26/2022 022 1:52 PM CDT C-difficile 02/26/2022 02/26/2022 03/28/2022 11:4 1 PM CDT Rule Out C-difficile 09/10/2022 09/10/2022 023 5:27 PM FULLING 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 C-difficile 09/10/2022 09/10/2022 10/10/2022 11:3 9 PM CDT Assessment Noted Time PHQ-9 Depression Total Score: 3 12/08/19 19 7:05 AM CDT documented as of this encounter Care Teams Manager Pharmacy Relationship Specialty Start Date End Date Deedee Annalisaarnulfo Peacock APRN SAT MATH TUTOR PCP - General Nurse Practitioner 03/22/15 06/29/22 Mike Martínez MD [address] [place] [address] PCP - General 06/30/22 08/28/22 [facility] [address] [place] [address] PCP - General 08/29/22 01/18/23 Lisa Wright PA-C [address] [place] [phone] PCP - General Family Medicine 01/19/23 Annalisa Mark APRN SAT MATH TUTOR Assigned PCP 06/06/18 07/02/19 Mukul Rivas PA-C [address] [place] [address], [place] [id number] Assigned PCP 07/03/19 11/19/19 Annalisa Mark APRN SAT MATH TUTOR Assigned PCP 11/20/19 12/10/19 Mukul Rivas PA-C [address] [place] [address], [place] [address] Assigned PCP 12/11/19 01/21/20 Annalisa Mark APRN SAT MATH TUTOR Assigned PCP 01/22/20 02/21/22 Mike Martínez MD [address] [facility] [place] [address] Assigned OBGYN Provider 05/18/20 Leonor Burgos MD [facility] [address] [place] [address] Assigned PCP 02/22/22 05/16/22 Annalisa Mark APRN SAT MATH TUTOR Assigned PCP 05/17/22 08/15/22 Leonor Burgos MD [facility] [address] [place] [address] Assigned PCP 08/16/22 08/29/22 Annalisa Mark APRN SAT MATH TUTOR [address] [facility] [place] [address] Assigned PCP 08/30/22 11/21/22 Curtis Núñez MD [address] [facility] [address] [place] [address] Assigned Pulmonology Provider 09/13/22 Leonor Burgos MD PRIMARY ENT [address] [facility] [address] [place] [address] Assigned PCP 11/22/22 11/28/22 Annalisa Mark APRN SAT MATH TUTOR Assigned PCP 11/29/22 01/23/23 Lisa Wright PA-C [address] [place] [address] Assigned PCP 01/24/23 documented as of this encounter
--- OUTSIDE RECORDS SUMMARY | 2024-03-15 08:48 | XMS_ITS | Encounter Summary ---
Author Organization [facility] Address [address] [place] [address]. [place] [address] Care Team Providers Care Abstract Manager Name Role Phone Annalisa Mark APRN, CNP Primary Care Provi miguel Unavailable Deedee, Annalisa Peacock APRN, CNP Unavailable Un available Mukul Rivas PA-C Unavailable + [phone] Deedee, Annalisa Peacock APRN, CNP Unavailable Un available Mukul Rivas PA-C Unavailable + [phone] Deedee, Annalisa Peacock APRN, CNP Unavailable Un available SabJacob sylvester MD Unavailable + [phone] Leonor Burgos MD Unavailable + DeedeeAnnalisa APRN, CNP Unavailable Un available SabJacob sylvester MD Primary Care Provider Leonor Burgos MD Unavailable + [facility] Primary Care Provider DeedeeAnnalisa dean APRN, CNP Unavailable Un available Dincer, Curtis Ambriz MD Unavailable [phone] Leonor Burgos MD Unavailable + DeedeeAnnalisa dean BEHAVIORAL HEALTH DIRECTOR EXPERIMENTAL MECHANIC SPACECRAFT Unavailable Un available Lisa Wright PA-C Primary Care Provider Lisa Wright PA-C Unavailable [phone] Reason for Visit * Reason Onset Date Comments Care 06/19/2019 Encounter Details Date Type Department Care Team (Late st Contact Info) Description 06/19/2019 MyC Medical Advice [facility] [address] [facility] [address] [place] [address] Jacob Carmona MD [address] [place] [address] Care Social History Tobacco Use [...] 03/17/2024 9:00 AM CDT Virtual Visit [address] [address] Chanel Asher PA-C [address] [place] [address] 03/17/2024 9:45 AM CDT Office Visit [facility] [address] [facility] [address] [place] [phone] Jacob Carmona MD [address] [place], [place] [address] documented as of this encounter Visit Diagnoses Not on filedocumented in this encounter Additional Health Concerns Infection Onset Date Last Indicated Resolved Time Rule Out COVID-19 01/14/2021 01/14/2021 01/15/2021 3:32 PM CDT Rule Out C-difficile 02/26/2022 02/26/2022 022 1:52 PM CDT C-difficile 02/26/2022 02/26/2022 03/28/2022 11:4 1 PM CDT Rule Out C-difficile 09/10/2022 09/10/2022 023 5:27 PM DESIGN ENGINEER PRODUCTS C-difficile 09/10/2022 09/10/2022 10/10/2022 11:3 9 PM CDT Assessment Noted Time PHQ-9 Depression Total Score: 3 12/08/19 19 7:05 AM CDT documented as of this encounter Care Teams Abstract Manager Relationship Specialty Start Date End Date Annalisa Mark APRN EXPERIMENTAL MECHANIC SPACECRAFT PCP - General Nurse Practitioner 03/22/15 06/29/22 Jacob Carmona MD [address] [place] [address] PCP - General 06/30/22 08/28/22 [facility] [address] [place] [address] PCP - General 08/29/22 01/18/23 Lisa Wright PA-C [address] [place] [phone] PCP - General Family Medicine 01/19/23 Annalisa Mark APRN EXPERIMENTAL MECHANIC SPACECRAFT Assigned PCP 06/06/18 07/02/19 Mukul Rivas PA-C [address] [place] [address], [place] [address] Assigned PCP 07/03/19 11/19/19 Annalisa Mark APRN EXPERIMENTAL MECHANIC SPACECRAFT Assigned PCP 11/20/19 12/10/19 Mukul Rivas PA-C [address] [place] [address], [place] [address] Assigned PCP 12/11/19 01/21/20 Annalisa Mark APRN EXPERIMENTAL MECHANIC SPACECRAFT Assigned PCP 01/22/20 02/21/22 Jacob Carmona MD [address] [place] [address] Assigned OBGYN Provider 05/18/20 Leonor Burgos MD [facility] [address] [place] [address] Assigned PCP 02/22/22 05/16/22 Annalisa Mark APRN EXPERIMENTAL MECHANIC SPACECRAFT Assigned PCP 05/17/22 08/15/22 Leonor Burgos MD [facility] [address] [place] [address] Assigned PCP 08/16/22 08/29/22 Annalisa Mark APRN EXPERIMENTAL MECHANIC SPACECRAFT [address] [place] [address] Assigned PCP 08/30/22 11/21/22 Curtis Núñez MD [address] [facility] [address] [place], [place] [address] Assigned Pulmonology Provider 09/13/22 Leonor Burgos MD [facility] [address] [place], [place] [id number] Assigned PCP 11/22/22 11/28/22 Annalisa Mark APRN EXPERIMENTAL MECHANIC SPACECRAFT Assigned PCP 11/29/22 01/23/23 Lisa Wright PA-C [address] [place] [address] Assigned PCP 01/24/23 documented as of this encounter
--- OUTSIDE RECORDS SUMMARY | 2024-03-15 08:48 | XMS_ITS | Encounter Summary ---
Author Organization [facility] Address [address] [place] [address]. [place] [address] Care Team Providers Care Marketing Designer Name Role Phone Annalisa Mark APRN, CNP Primary Care Provi miguel Unavailable Deedee, Annalisa Peacock APRN, CNP Unavailable Un available Mukul Rivas PA-C Unavailable + [phone] Deedee, Annalisa Peacock APRN, CNP Unavailable Un available Mukul Rivas PA-C Unavailable + [phone] Deedee, Annalisa Peacock APRN, CNP Unavailable Un available SabJacob sylvester MD Unavailable + [phone] Leonor Burgos MD Unavailable + DeedeeAnnalisa APRN, CNP Unavailable Un available SabJacob sylvester MD Primary Care Provider Leonor Burgos MD Unavailable + [facility] Primary Care Provider DeedeeAnnalisa dean APRN, CNP Unavailable Un available Dincer, Curtis Ambriz MD Unavailable [phone] Leonor Burgos MD Unavailable + DeedeeAnnalisa dean SUPPLY CHAIN GENERALIST COUNTER HELPER Unavailable Un available Lisa Wright PA-C Primary Care Provider Lisa Wright PA-C Unavailable [phone] Reason for Visit * Reason Onset Date Comments Care 03/09/2019 Encounter Details Date Type Department Care Team (Late st Contact Info) Description 03/09/2019 MyC Medical Advice [facility] [address] [facility] [address] [place] [address] Jacob Carmona MD [address] [place] [address] Care Social History Tobacco Use [...] Description 03/17/2024 9:00 AM CDT Virtual Visit [address] [address] Chanel Asher PA-C [address] [place] [address] 03/17/2024 9:45 AM CDT Office Visit [facility] [address] [facility] [address] [place] [phone] Jacob Carmona MD [address] [place], [place] [address] documented as of this encounter Visit Diagnoses Not on filedocumented in this encounter Additional Health Concerns Infection Onset Date Last Indicated Resolved Time Rule Out COVID-19 01/14/2021 01/14/2021 01/15/2021 3:32 PM CDT Rule Out C-difficile 02/26/2022 02/26/2022 022 1:52 PM CDT C-difficile 02/26/2022 02/26/2022 03/28/2022 11:4 1 PM CDT Rule Out C-difficile 09/10/2022 09/10/2022 023 5:27 PM GRAVITY METER OBSERVER C-difficile 09/10/2022 09/10/2022 10/10/2022 11:3 9 PM CDT Assessment Noted Time PHQ-9 Depression Total Score: 3 12/08/19 19 7:05 AM CDT documented as of this encounter Care Teams Marketing Designer Relationship Specialty Start Date End Date Annalisa Mark APRN COUNTER HELPER PCP - General Nurse Practitioner 03/22/15 06/29/22 Jacob Carmona MD [address] [place] [address] PCP - General 06/30/22 08/28/22 [facility] [address] [place] [address] PCP - General 08/29/22 01/18/23 Lisa Wright PA-C [address] [facility] [address] PCP - General Family Medicine 01/19/23 Annalisa Mark APRN COUNTER HELPER Assigned PCP 06/06/18 07/02/19 Mukul Rivas PA-C [address] [place] [address], [place] [address] Assigned PCP 07/03/19 11/19/19 Annalisa Mark APRN COUNTER HELPER Assigned PCP 11/20/19 12/10/19 Mukul Rivas PA-C [address] [place] [address], [place] [address] Assigned PCP 12/11/19 01/21/20 Annalisa Mark APRN COUNTER HELPER Assigned PCP 01/22/20 02/21/22 Jacob Carmona MD [address] [place] [address] Assigned OBGYN Provider 05/18/20 Leonor Burgos MD [facility] [address] [place] [address] Assigned PCP 02/22/22 05/16/22 Annalisa Mark APRN COUNTER HELPER Assigned PCP 05/17/22 08/15/22 Leonor Burgos MD [facility] [address] [place] [address] Assigned PCP 08/16/22 08/29/22 Annalisa Mark APRN COUNTER HELPER [address] [place] [address] Assigned PCP 08/30/22 11/21/22 Curtis Núñez MD [address] [facility] [address] [place], [place] [address] Assigned Pulmonology Provider 09/13/22 Leonor Burgos MD [facility] [address] [place], [place] [address] Assigned PCP 11/22/22 11/28/22 Annalisa Mark APRN COUNTER HELPER Assigned PCP 11/29/22 01/23/23 Lisa Wright PA-C [address] [place] [address] Assigned PCP 01/24/23 documented as of this encounter
--- OUTSIDE RECORDS SUMMARY | 2024-03-15 08:48 | XMS_ITS | Encounter Summary ---
Author Organization [place] Address [address] [place] [address]. [place] [address] Care Team Providers Care Supervisor Decorating Name Role Phone Annalisa Mark APRN, CNP Primary Care Provi miguel Unavailable Deedee, Annalisa Peacock APRN, CNP Unavailable Un available Mukul Rivas PA-C Unavailable + [phone] Deedee, Annalisa Peacock APRN, CNP Unavailable Un available Mukul Rivas PA-C Unavailable + [phone] Deedee, Annalisa Peacock APRN, CNP Unavailable Un available SabJacob sylvester MD Unavailable + [phone] Leonor Burgos MD Unavailable + DeedeeAnnalisa APRN, CNP Unavailable Un available SabJacob sylvester MD Primary Care Provider Leonor Burgos MD Unavailable + [facility] Primary Care Provider DeedeeAnnalisa dean APRN, CNP Unavailable Un available Dincer, Curtis Ambriz MD Unavailable +[phone] Leonor Burgos MD Unavailable + DeedeeAnnalisa dean TEST DRIVER TECHNICAL TRAINING INSTRUCTOR Unavailable Un available Lisa Wright PA-C Primary Care Provider [phone] Lisa Wright PA-C Unavailable [phone] Reason for Visit * Reason Onset Date Comments Care 06/20/2019 Encounter Details Date Type Department Care Team (Late st Contact Info) Description 06/20/2019 MyC Medical Advice [facility] [address] [facility] [address] [place] [address] Jacob Carmona MD [address] [place] [address] Care Social History Tobacco Use [...] 03/17/2024 9:00 AM CDT Virtual Visit [address] [address] Chanel Asher PA-C [address] [place] [address] 03/17/2024 9:45 AM CDT Office Visit [facility] [address] [facility] [address] [place] [phone] Jacob Carmona MD [address] [place], [place] [address] documented as of this encounter Visit Diagnoses Not on filedocumented in this encounter Additional Health Concerns Infection Onset Date Last Indicated Resolved Time Rule Out COVID-19 01/14/2021 01/14/2021 01/15/2021 3:32 PM CDT Rule Out C-difficile 02/26/2022 02/26/2022 022 1:52 PM CDT C-difficile 02/26/2022 02/26/2022 03/28/2022 11:4 1 PM CDT Rule Out C-difficile 09/10/2022 09/10/2022 023 5:[address] ADVOCATE C-difficile 09/10/2022 09/10/2022 10/10/2022 11:3 9 PM CDT Assessment Noted Time PHQ-9 Depression Total Score: 3 12/08/19 19 7:05 AM CDT documented as of this encounter Care Teams Supervisor Decorating Relationship Specialty Start Date End Date Annalisa Mark APRN TECHNICAL TRAINING INSTRUCTOR PCP - General Nurse Practitioner 03/22/15 06/29/22 Jacob Carmona MD [address] [place] [address] PCP - General 06/30/22 08/28/22 [facility] [address] [place] [address] PCP - General 08/29/22 01/18/23 Lisa Wright PA-C [address] [place] [address] PCP - General Family Medicine 01/19/23 Annalisa Mark APRN TECHNICAL TRAINING INSTRUCTOR Assigned PCP 06/06/18 07/02/19 Mukul Rivas PA-C [address] [place] [address], [place] [address] Assigned PCP 07/03/19 11/19/19 Annalisa Mark APRN TECHNICAL TRAINING INSTRUCTOR Assigned PCP 11/20/19 12/10/19 Mukul Rivas PA-C [address] [place] [address], [place] [address] Assigned PCP 12/11/19 01/21/20 Annalisa Mark APRN TECHNICAL TRAINING INSTRUCTOR Assigned PCP 01/22/20 02/21/22 Jacob Carmona MD [address] [place] [address] Assigned OBGYN Provider 05/18/20 Leonor Burgos MD [facility] [address] [place] [address] Assigned PCP 02/22/22 05/16/22 Annalisa Mark APRN TECHNICAL TRAINING INSTRUCTOR Assigned PCP 05/17/22 08/15/22 Leonor Burgos MD [facility] [address] [place] [address] Assigned PCP 08/16/22 08/29/22 Annalisa Mark APRN TECHNICAL TRAINING INSTRUCTOR [address] [place] [address] Assigned PCP 08/30/22 11/21/22 Curtis Núñez MD [address] [facility] [address] [place], [place] [address] Assigned Pulmonology Provider 09/13/22 Leonor Burgos MD [facility] [address] [place], [place] [id number] Assigned PCP 11/22/22 11/28/22 Annalisa Mark APRN TECHNICAL TRAINING INSTRUCTOR Assigned PCP 11/29/22 01/23/23 Lisa Wright PA-C [address] [place] [address] Assigned PCP 01/24/23 documented as of this encounter
--- OUTSIDE RECORDS SUMMARY | 2024-03-15 08:49 | XMS_ITS | Encounter Summary ---
Author Organization [place] Address [facility] [address] Care Team Providers Care Digital Marketing Manager Name Role Phone Deedee, Annalisa Peacock APRN, CNP Primary Care Provi miguel Unavailable Leonor Burgos MD Unavailable + Deedee, Annalisa Peacock APRN LINE ASSEMBLER AIRCRAFT Unavailable Un available Deedee, Annalisa Peacock APRN, CNP Unavailable Un available Mukul Rivas PA-C Unavailable + [phone] Deedee, Annalisa Peacock APRN, CNP Unavailable Un available Mukul Rivas PA-C Unavailable + [phone] Deedee, Annalisa Peacock APRN, CNP Unavailable Un available Jacob Carmona MD Unavailable + [phone] Leonor Burgos MD Unavailable + Deedee, Annalisa Peacock APRN, CNP Unavailable Un available Jacob Carmona MD Primary Care Provider Leonor Burgos MD Unavailable + [facility] Primary Care Provider Deedee, Annalisa Peacock APRN, CNP Unavailable Un available DincerCurtis MD Unavailable Leonor Burgos MD Unavailable + Annalisa Mark APRN LINE ASSEMBLER AIRCRAFT Unavailable Un available Lisa Wright PA-C Primary Care Provider [phone] Lisa Wright PA-C Unavailable [phone] Encounter Details Date Type Department Care Team (Late st Contact Info) Description 07/18/2016 MyC Medical Advice [facility] [address] [phone] Pete Martin MD NO INFO AVAILABLE 02/17/23 Social History Tobacco Use Types Packs/Day Years Used Date Smoking Tobacco: Never Smokeless Tobacco: Never Alcohol Use Standard Drinks/Week Comments Yes 0 (1 standard drink = 0.6 oz pur e alcohol) Occaisional Comments Yes Sex and Gender Information Value Date Recorded Sex Assigned at Female 03/25/2021 2:01 PM CDT Gender Identity Female 03/25/2021 2:01 PM CDT Sexual Orientation Straight 03/25/2021 2: 01 PM CDT documented as of this encounter Plan of Treatment Upcoming Encounters Date Type Department Care Team (Late st Contact Info) Description 03/17/2024 9:00 AM CDT Virtual Visit [facility] [address] [place] [phone] Chanel Asher PA-C [id number] [place] [phone] 03/17/2024 9:45 AM CDT Office Visit [facility] [address] [facility] [address] [place] [address] Jacob Carmona MD [address] [place], [place] [address] documented as of this encounter Visit Diagnoses Not on filedocumented in this encounter Additional Health Concerns Infection Onset Date Last Indicated Resolved Time Rule Out COVID-19 01/14/2021 01/14/2021 01/15/2021 3:32 PM CDT Rule Out C-difficile 02/26/2022 02/26/2022 022 1:52 PM CDT C-difficile 02/26/2022 02/26/2022 03/28/2022 11:4 1 PM CDT Rule Out C-difficile 09/10/2022 09/10/2022 023 5:27 PM GENERAL MANAGER C-difficile 09/10/2022 09/10/2022 10/10/2022 11:3 9 PM CDT Assessment Noted Time PHQ-9 Depression Total Score: 5 04/22/20 16 7:19 AM CDT documented as of this encounter Care Teams Digital Marketing Manager Relationship Specialty Start Date End Date Annalisa Mark APRN LINE ASSEMBLER AIRCRAFT PCP - General Nurse Practitioner 03/22/15 06/29/22 Leonor Burgos MD [facility] [address] [place] [address] PCP - Assigned PCP 12/13/17 06/05/18 Annalisa Mark APRN LINE ASSEMBLER AIRCRAFT PCP - Assigned PCP 06/06/18 09/28/18 Jacob Carmona MD [address] [place] [address] PCP - General 06/30/22 08/28/22 [facility] [address] [place] [address] PCP - General 08/29/22 01/18/23 Lisa Wright PA-C [address] [place] [phone] PCP - General Family Medicine 01/19/23 Annalisa Mark APRN LINE ASSEMBLER AIRCRAFT Assigned PCP 06/06/18 07/02/19 Mukul Rivas PA-C [address] [place] [address], [place] [address] Assigned PCP 07/03/19 11/19/19 Annalisa Mark APRN LINE ASSEMBLER AIRCRAFT Assigned PCP 11/20/19 12/10/19 Mukul Rivas PA-C [address] [place] [address], [place] [address] Assigned PCP 12/11/19 01/21/20 Annalisa Mark APRN LINE ASSEMBLER AIRCRAFT Assigned PCP 01/22/20 02/21/22 Jacob Carmona MD [address] [place] [place] [address] Assigned OBGYN Provider 05/18/20 Leonor Burgos MD [facility] [address] [place], [place] [address] Assigned PCP 02/22/22 05/16/22 Annalisa Mark APRN LINE ASSEMBLER AIRCRAFT Assigned PCP 05/17/22 08/15/22 Leonor Burgos MD [facility] [address] [place] [address] Assigned PCP 08/16/22 08/29/22 Annalisa Mark APRN LINE ASSEMBLER AIRCRAFT [address] [facility] [place] [address] Assigned PCP 08/30/22 11/21/22 Curtis Núñez MD [address] [facility] 276 [place] [address] Assigned Pulmonology Provider 09/13/22 Leonor Burgos MD PR[facility] [address] [place], [place] [address] Assigned PCP 11/22/22 11/28/22 Annalisa Mark APRN LINE ASSEMBLER AIRCRAFT Assigned PCP 11/29/22 01/23/23 Lisa Wright PA-C [address] [place] [address] Assigned PCP 01/24/23 documented as of this encounter
--- OUTSIDE RECORDS SUMMARY | 2024-03-15 08:49 | XMS_ITS | Encounter Summary ---
Author Organization [place] Address [facility] [place] [address] Care Team Providers Care Travel Coordinator Name Role Phone Deedee, Annalisa Peacock APRN, CNP Primary Care Provi miguel Unavailable Leonor Burgos MD Unavailable + Deedee, Annalisa Peacock APRN PRESIDENTIAL HELICOPTER CREW CHIEF Unavailable Un available Deedee, Annalisa Peacock APRN, CNP Unavailable Un available Mukul Rivas PA-C Unavailable + [phone] Deedee, Annalisa Peacock APRN, CNP Unavailable Un available Mukul Rivas PA-C Unavailable + [phone] Deedee, Annalisa Peacock APRN, CNP Unavailable Un available Jacob Carmona MD Unavailable + [phone] Leonor Burgos MD Unavailable + Deedee, Annalisa Peacock APRN, CNP Unavailable Un available Jacob Carmona MD Primary Care Provider Leonor Burgos MD Unavailable + [facility] Primary Care Provider Deedee, Annalisa Peacock APRN, CNP Unavailable Un available DincerCurtis MD Unavailable Leonor Burgos MD Unavailable + Annalisa Mark APRN PRESIDENTIAL HELICOPTER CREW CHIEF Unavailable Un available Lisa Wright PA-C Primary Care Provider Lisa Wright PA-C Unavailable Encounter Details Date Type Department Care Team (Late st Contact Info) Description 01/28/2018 MyC Medical Advice [facility] [address] [place] [phone] Pete Martin MD NO INFO AVAILABLE 02/17/23 Social History Tobacco Use Types Packs/Day Years Used Date Smoking Tobacco: Never Smokeless Tobacco: Never Alcohol Use Standard Drinks/Week Comments No 0 (1 standard drink = 0.6 oz pur e alcohol) Occaisional Sex and Gender Information Value Date Recorded Sex Assigned at Female 03/25/2021 2:01 PM CDT Gender Identity Female 03/25/2021 2:01 PM CDT Sexual Orientation Straight 03/25/2021 2: 01 PM CDT documented as of this encounter Plan of Treatment Upcoming Encounters Date Type Department Care Team (Late st Contact Info) Description 03/17/2024 9:00 AM CDT Virtual Visit [facility] [address] [place] [phone] Chanel Asher PA-C [address] [place], [place] [phone] 03/17/2024 9:45 AM CDT Office Visit [facility] [address] [facility] [address] [place] [address] Jacob Carmona MD [address] [place] [address] documented as of this encounter Visit Diagnoses Not on filedocumented in this encounter Additional Health Concerns Infection Onset Date Last Indicated Resolved Time Rule Out COVID-19 01/14/2021 01/14/2021 01/15/2021 3:32 PM CDT Rule Out C-difficile 02/26/2022 02/26/2022 022 1:52 PM CDT C-difficile 02/26/2022 02/26/2022 03/28/2022 11:4 1 PM CDT Rule Out C-difficile 09/10/2022 09/10/2022 023 5:27 PM GOVERNMENT AFFAIRS RESEARCHER C-difficile 09/10/2022 09/10/2022 10/10/2022 11:3 9 PM CDT Assessment Noted Time PHQ-9 Depression Total Score: 4 09/25/19 18 8:33 AM GOVERNMENT AFFAIRS RESEARCHER documented as of this encounter Care Teams Travel Coordinator Relationship Specialty Start Date End Date Annalisa Mark APRN PRESIDENTIAL HELICOPTER CREW CHIEF PCP - General Nurse Practitioner 03/22/15 06/29/22 Leonor Burgos MD PR[facility] [address] [place] [address] PCP - Assigned PCP 12/13/17 06/05/18 Annalisa Mark APRN PRESIDENTIAL HELICOPTER CREW CHIEF PCP - Assigned PCP 06/06/18 09/28/18 Jacob Carmona MD [address] [place] [address] PCP - General 06/30/22 08/28/22 [facility] [address] [place] [address] PCP - General 08/29/22 01/18/23 Lisa Wright PA-C [address] [place] [address] PCP - General Family Medicine 01/19/23 Annalisa Mark APRN PRESIDENTIAL HELICOPTER CREW CHIEF Assigned PCP 06/06/18 07/02/19 Mukul Rivas PA-C [address] [place] [address], [place] [id number] Assigned PCP 07/03/19 11/19/19 Annalisa Mark APRN PRESIDENTIAL HELICOPTER CREW CHIEF Assigned PCP 11/20/19 12/10/19 Mukul Rivas PA-C [address] [place] [address], [place] [id number] Assigned PCP 12/11/19 01/21/20 Annalisa Mark APRN PRESIDENTIAL HELICOPTER CREW CHIEF Assigned PCP 01/22/20 02/21/22 Jacob Carmona MD [address] [facility] [place] [address] Assigned OBGYN Provider 05/18/20 Leonor Burgos MD PRIMARY [facility] [address] [place], [place] [address] Assigned PCP 02/22/22 05/16/22 Annalisa Mark APRN PRESIDENTIAL HELICOPTER CREW CHIEF Assigned PCP 05/17/22 08/15/22 Leonor Burgos MD [facility] [address] [place] [address] Assigned PCP 08/16/22 08/29/22 Annalisa Mark APRN PRESIDENTIAL HELICOPTER CREW CHIEF [address] [place] [address] Assigned PCP 08/30/22 11/21/22 Curtis Núñez MD [address] [facility] 276 [place], [place] [address] Assigned Pulmonology Provider 09/13/22 Leonor Burgos MD PRIMARY ENT [address] [facility] [address] [place], [place] [address] Assigned PCP 11/22/22 11/28/22 Annalisa Mark APRN PRESIDENTIAL HELICOPTER CREW CHIEF Assigned PCP 11/29/22 01/23/23 Lisa Wright PA-C [address] [place] [address] Assigned PCP 01/24/23 documented as of this encounter
--- OUTSIDE RECORDS SUMMARY | 2024-03-15 08:49 | XMS_ITS | Encounter Summary ---
Author Organization [place] Address [address] [place] [address]. [place] [address] Care Team Providers Care Supervisor Continuous Weld Pipe Mill Name Role Phone Annalisa Mark APRN, CNP Primary Care Provi miguel Unavailable Deedee, Annalisa Peacock APRN, CNP Unavailable Un available Mukul Rivas PA-C Unavailable + [phone] Deedee, Annalisa Peacock APRN, CNP Unavailable Un available Mukul Rivas PA-C Unavailable + [phone] Deedee, Annalisa Peacock APRN, CNP Unavailable Un available SabJacob sylvester MD Unavailable + [phone] Leonor Burgos MD Unavailable + DeedeeAnnalisa APRN, CNP Unavailable Un available SabJacob sylvester MD Primary Care Provider Leonor Burgos MD Unavailable + [facility] Primary Care Provider DeedeeAnnalisa dean APRN, CNP Unavailable Un available Dincer, Curtis Ambriz MD Unavailable +[phone] Leonor Burgos MD Unavailable + DeedeeAnnalisa dean JADEN RN OCCUPATIONAL Unavailable Un available Lisa Wright PA-C Primary Care Provider [phone] Lisa Wright PA-C Unavailable [phone] Encounter Details Date Type Department Care Team (Late st Contact Info) Description 02/04/2019 MyC Medical Advice [facility] [address] [facility] [address] [place] [address] Jacob Carmona MD [address] [place], [place] [phone] Social History Tobacco Use Types Packs/Day Years Used Date Smoking Tobacco: Never Smokeless Tobacco: Never Alcohol Use Standard Drinks/Week Comments Not Currently 0 (1 standard drink = 0.6 oz pur e alcohol) Occaisional PHQ-2 Answer Date Recorded PHQ-2 Score 0 08/03/2018 Sex and Gender Information Value Date Recorded Sex Assigned at Female 03/25/2021 2:01 PM CDT Gender Identity Female 03/25/2021 2:01 PM CDT Sexual Orientation Straight 03/25/2021 2: 01 PM CDT documented as of this encounter Plan of Treatment Upcoming Encounters Date Type Department Care Team (Late st Contact Info) Description 03/17/2024 9:00 AM CDT Virtual Visit [facility] [address] [place] [phone] Chanel Asher PA-C [address] [place] [address] 03/17/2024 9:45 AM CDT Office Visit [facility] [address] [facility] [address] [place] [address] Jacob Carmona MD [address] [facility] [place] [phone] documented as of this encounter Visit Diagnoses Not on filedocumented in this encounter Additional Health Concerns Infection Onset Date Last Indicated Resolved Time Rule Out COVID-19 01/14/2021 01/14/2021 01/15/2021 3:32 PM CDT Rule Out C-difficile 02/26/2022 02/26/2022 022 1:52 PM CDT C-difficile 02/26/2022 02/26/2022 03/28/2022 11:4 1 PM CDT Rule Out C-difficile 09/10/2022 09/10/2022 023 5:27 PM MARKETING GRAPHICS SPECIALIST C-difficile 09/10/2022 09/10/2022 10/10/2022 11:3 9 PM CDT Assessment Noted Time PHQ-9 Depression Total Score: 3 12/08/19 19 7:05 AM CDT documented as of this encounter Care Teams Supervisor Continuous Weld Pipe Mill Relationship Specialty Start Date End Date Annalisa Mark APRN RN OCCUPATIONAL PCP - General Nurse Practitioner 03/22/15 06/29/22 Jacob Carmona MD [address] [place] [address] PCP - General 06/30/22 08/28/22 [facility] [id number] [place] [address] PCP - General 08/29/22 01/18/23 Lisa Wright PA-C [address] [place] [address] PCP - General Family Medicine 01/19/23 Annalisa Mark APRN RN OCCUPATIONAL Assigned PCP 06/06/18 07/02/19 Mukul Rivas PA-C [address] [place] [address] Assigned PCP 07/03/19 11/19/19 Annalisa Mark APRN RN OCCUPATIONAL Assigned PCP 11/20/19 12/10/19 Mukul Rivas PA-C [address] [place] [id number] Assigned PCP 12/11/19 01/21/20 Annalisa Mark APRN RN OCCUPATIONAL Assigned PCP 01/22/20 02/21/22 Jacob Carmona MD [address] [place], [place] [address] Assigned OBGYN Provider 05/18/20 Leonor Burgos MD PRIMARY [facility] [address] [facility] [address] [place] [address] Assigned PCP 02/22/22 05/16/22 Annalisa Mark APRN RN OCCUPATIONAL Assigned PCP 05/17/22 08/15/22 Leonor Burgos MD [facility] [address] [place] [address] Assigned PCP 08/16/22 08/29/22 Annalisa Mark APRN RN OCCUPATIONAL [address] [place] [address] Assigned PCP 08/30/22 11/21/22 Curtis Núñez MD [address] [facility] 276 [place], [place] [address] Assigned Pulmonology Provider 09/13/22 Leonor Burgos MD [facility] [address] [place] [address] Assigned PCP 11/22/22 11/28/22 Annalisa Mark APRN RN OCCUPATIONAL Assigned PCP 11/29/22 01/23/23 Lisa Wright PA-C [address] [place] [phone] Assigned PCP 01/24/23 documented as of this encounter
--- OUTSIDE RECORDS SUMMARY | 2024-03-15 08:49 | XMS_ITS | Encounter Summary ---
Author Organization [place] Address [facility] [place] [address] Care Team Providers Care Stonework Supervisor Name Role Phone Deedee, Annalisa Peacock APRN, CNP Primary Care Provi miguel Unavailable Leonor Burgos MD Unavailable + Deedee, Annalisa Peacock APRN DRY ROLLER Unavailable Un available Deedee, Annalisa Peacock APRN, CNP Unavailable Un available Mukul Rivas PA-C Unavailable + [phone] Deedee, Annalisa Peacock APRN, CNP Unavailable Un available Mukul Rivas PA-C Unavailable + [phone] Deedee, Annalisa Peacock APRN, CNP Unavailable Un available Jacob Carmona MD Unavailable + [phone] Leonor Burgos MD Unavailable + Deedee, Annalisa Peacock APRN, CNP Unavailable Un available Jacob Carmona MD Primary Care Provider Leonor Burgos MD Unavailable + Clinic [facility] Primary Care Provider Deedee, Annalisa Peacock APRN, CNP Unavailable Un available DincerCurtis MD Unavailable Leonor Burgos MD Unavailable + Deedee Annalisaarnulfo Peacock APRN DRY ROLLER Unavailable Un available Lisa Wright PA-C Primary Care Provider [phone] Lisa Wright PA-C Unavailable [phone] Reason for Visit * Reason Onset Date Comments Results 11/26/2016 Encounter Details Date Type Department Care Team (Late st Contact Info) Description 11/26/2016 MyC Medical Advice [facility] [address] [place] [address] Pete Martin MD NO INFO AVAILABLE 02/17/23 Results Social History Tobacco Use Types Packs/Day [...] encounter Miscellaneous Notes * Telephone Encounter - Ani Lynne RN - 12/05/2016 9:31 AM CDT JiaThist message sent. Call to lab. They will check into the viral culture. Will leave open to follow up on this. * Telephone Encounter - Pete Martin - 12/04/2016 5:45 PM CDT Please notify patient. UC negative. Please call lab to see why the viral culture is still in process. It usually only takes a few days. * Telephone Encounter - Casie Santos RN - 11/26/2016 8:[address] Martin, Pt calling about urine results. Viral culture still in process. See SiConnecthart message. Casie Santos R.N. documented in this encounter Plan of Treatment Upcoming Encounters Date Type Department Care Team (Late st Contact Info) Description 03/17/2024 9:00 AM CDT Virtual Visit [facility] [address] [place] [phone] Chanel Asher PA-C [address] [place], [place] [phone] 03/17/2024 9:45 AM CDT Office Visit [facility] [address] [facility] [address] [place] [phone] Jacob Carmona MD [address] [place] [address] documented as of this encounter Visit Diagnoses Not on filedocumented in this encounter Additional Health Concerns Infection Onset Date Last Indicated Resolved Time Rule Out COVID-19 01/14/2021 01/14/2021 01/15/2021 3:32 PM CDT Rule Out C-difficile 02/26/2022 02/26/2022 022 1:52 PM CDT C-difficile 02/26/2022 02/26/2022 03/28/2022 11:4 1 PM CDT Rule Out C-difficile 09/10/2022 09/10/2022 023 5:27 PM 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 [address] PCP - General 06/30/22 08/28/22 [facility] [address] [place] [address] PCP - General 08/29/22 01/18/23 Lisa Wright PA-C [address] [place] [address] PCP - General Family Medicine 01/19/23 Annalisa Mark APRN DRY ROLLER Assigned PCP 06/06/18 07/02/19 Mukul Rivas PA-C [address] [place] [address] Assigned PCP 07/03/19 11/19/19 Annalisa Mark APRN DRY ROLLER Assigned PCP 11/20/19 12/10/19 Mukul Rivas PA-C [address] [place] [address] Assigned PCP 12/11/19 01/21/20 Annalisa Mark APRN DRY ROLLER Assigned PCP 01/22/20 02/21/22 Jacob Carmona MD [address] [place] [address] Assigned OBGYN Provider 05/18/20 Leonor Burgos MD [facility] [address] [place] [address] Assigned PCP 02/22/22 05/16/22 Annalisa Mark APRN DRY ROLLER Assigned PCP 05/17/22 08/15/22 Leonor Burgos MD PRIMARY ENT [address] [facility] [place] [address] Assigned PCP 08/16/22 08/29/22 Annalisa Mark APRN DRY ROLLER [address] [place] [address] Assigned PCP 08/30/22 11/21/22 Curtis Núñez MD [address] [facility] 276 [place], [place] [address] Assigned Pulmonology Provider 09/13/22 Leonor Burgos MD PRIMARY ENT [address] [place], [place] [address] Assigned PCP 11/22/22 11/28/22 Annalisa Mark APRN DRY ROLLER Assigned PCP 11/29/22 01/23/23 Lisa Wright PA-C [address] [place] [phone] Assigned PCP 01/24/23 documented as of this encounter
--- OUTSIDE RECORDS SUMMARY | 2024-03-15 08:49 | XMS_ITS | Encounter Summary ---
Author Organization [place] Address [address] [place] [address]. [place] [address] Care Team Providers Care Core Analyst Name Role Phone Annalisa Mark APRN, CNP Primary Care Provi migeul Unavailable Deedee, Annalisa Peacock APRN, CNP Unavailable Un available Mukul Rivas PA-C Unavailable + [phone] Deedee, Annalisa Peacock APRN, CNP Unavailable Un available Mukul Rivas PA-C Unavailable + [phone] Deedee, Annalisa Peacock APRN, CNP Unavailable Un available SabJacob sylvester MD Unavailable + [phone] Leonor Burgos MD Unavailable + DeedeeAnnalisa APRN, CNP Unavailable Un available SabJacob sylvester MD Primary Care Provider Leonor Burgos MD Unavailable + [facility] Primary Care Provider DeedeeAnnalisa dean APRN, CNP Unavailable Un available Dincer, Curtis Ambriz MD Unavailable [phone] Leonor Burgos MD Unavailable + DeedeeAnnalisa deane JADEN SALON SHAMPOO ASSISTANT Unavailable Un available Lisa Wright PA-C Primary Care Provider [phone] Lisa Wright PA-C Unavailable [phone] Encounter Details Date Type Department Care Team (Late st Contact Info) Description 09/29/2018 MyC Medical Advice [facility] Women's [facility] [address] [place] [phone] Pete Martin MD NO INFO AVAILABLE 02/17/23 [...] Description 03/17/2024 9:00 AM CDT Virtual Visit [facility] [address] [place] [phone] Chanel Asher PA-C [address] [place] [address] 03/17/2024 9:45 AM CDT Office Visit [facility] [address] [facility] [address] [place] [phone] Jacob Carmona MD [address] [place] [address] documented as of this encounter Visit Diagnoses Not on filedocumented in this encounter Additional Health Concerns Infection Onset Date Last Indicated Resolved Time Rule Out COVID-19 01/14/2021 01/14/2021 01/15/2021 3:32 PM CDT Rule Out C-difficile 02/26/2022 02/26/2022 022 1:52 PM CDT C-difficile 02/26/2022 02/26/2022 03/28/2022 11:4 1 PM CDT Rule Out C-difficile 09/10/2022 09/10/2022 023 5:27 PM CARDIAC SPECIALIST C-difficile 09/10/2022 09/10/2022 10/10/2022 11:3 9 PM CDT Assessment Noted Time PHQ-9 Depression Total Score: 7 06/04/20 18 3:40 PM CARDIAC SPECIALIST documented as of this encounter Care Teams Core Analyst Relationship Specialty Start Date End Date Annalisa Mark APRN SALON SHAMPOO ASSISTANT PCP - General Nurse Practitioner 03/22/15 06/29/22 Jacob Carmona MD [address] [place] [address] PCP - General 06/30/22 08/28/22 [facility] [address] [place] [address] PCP - General 08/29/22 01/18/23 Lisa Wright PA-C [address] [place] [address] PCP - General Family Medicine 01/19/23 Annalisa Mark APRN SALON SHAMPOO ASSISTANT Assigned PCP 06/06/18 07/02/19 Mukul Rivas PA-C [address] [place] [address] Assigned PCP 07/03/19 11/19/19 Annalisa Mark APRN SALON SHAMPOO ASSISTANT Assigned PCP 11/20/19 12/10/19 Mukul Rivas PA-C [address] [place] [id number] Assigned PCP 12/11/19 01/21/20 Annalisa Mark APRN SALON SHAMPOO ASSISTANT Assigned PCP 01/22/20 02/21/22 Jacob Carmona MD [address] [place] [address] Assigned OBGYN Provider 05/18/20 Leonor Burgos MD [facility] [address] [facility] [address] [place] [address] Assigned PCP 02/22/22 05/16/22 Annalisa Mark APRN SALON SHAMPOO ASSISTANT Assigned PCP 05/17/22 08/15/22 Leonor Burgos MD [facility] [address] [facility] [address] [place] [address] Assigned PCP 08/16/22 08/29/22 Annalisa Mark APRN SALON SHAMPOO ASSISTANT [address] [place] [address] Assigned PCP 08/30/22 11/21/22 Curtis Núñez MD [address] [facility] 276 [place], [place] [address] Assigned Pulmonology Provider 09/13/22 Leonor Burgos MD [facility] [address] [facility] [address] [place] [address] Assigned PCP 11/22/22 11/28/22 Annalisa Mark APRN SALON SHAMPOO ASSISTANT Assigned PCP 11/29/22 01/23/23 Lisa Wright PA-C [address] [place] [address] Assigned PCP 01/24/23 documented as of this encounter
--- OUTSIDE RECORDS SUMMARY | 2024-03-15 08:49 | XMS_ITS | Encounter Summary ---
Author Organization [place] Address [address] [place] [address]. [place] [address] Care Team Providers Care Selling Manager Name Role Phone Annalias Mark APRN, CNP Primary Care Provi miguel Unavailable Deedee, Annalisa Peacock APRN, CNP Unavailable Un available Mukul Rivas PA-C Unavailable + [phone] Deedee, Annalisa Peacock APRN, CNP Unavailable Un available Mukul Rivas PA-C Unavailable + [phone] Deedee, Annalisa Peacock APRN, CNP Unavailable Un available SabJacob sylvester MD Unavailable + [phone] Leonor Burgos MD Unavailable + DeedeeAnnalisa APRN, CNP Unavailable Un available SabJacob sylvester MD Primary Care Provider Leonor Burgos MD Unavailable + [facility] Primary Care Provider DeedeeAnnalisa dean APRN, CNP Unavailable Un available Dincer, Curtis Ambriz MD Unavailable +[phone] Leonor Burgos MD Unavailable + Annalisa Mark EARLY CHILDHOOD CEMENT BLOCK MAKER Unavailable Un available Lisa Wright PA-C Primary Care Provider [phone] Lisa Wright PA-C Unavailable [phone] Encounter Details Date Type Department Care Team (Late st Contact Info) Description 02/16/2019 MyC Medical Advice [facility] [address] [facility] [address] [place] [address] Jacob Carmona MD [address] [place] [address] Social History Tobacco Use Types [...] 03/17/2024 9:00 AM CDT Virtual Visit [facility] [address] [place] [phone] Chanel Asher PA-C [address] [place] [address] 03/17/2024 9:45 AM CDT Office Visit [facility] [address] [facility] [address] [place] [phone] Jacob Carmona MD [address] [place] [address] documented as of this encounter Visit Diagnoses Not on filedocumented in this encounter Additional Health Concerns Infection Onset Date Last Indicated Resolved Time Rule Out COVID-19 01/14/2021 01/14/2021 01/15/2021 3:32 PM CDT Rule Out C-difficile 02/26/2022 02/26/2022 022 1:52 PM CDT C-difficile 02/26/2022 02/26/2022 03/28/2022 11:4 1 PM CDT Rule Out C-difficile 09/10/2022 09/10/2022 023 5:27 PM GOLDBEATER C-difficile 09/10/2022 09/10/2022 10/10/2022 11:3 9 PM CDT Assessment Noted Time PHQ-9 Depression Total Score: 3 12/08/19 19 7:05 AM CDT documented as of this encounter Care Teams Selling Manager Relationship Specialty Start Date End Date Annalisa Mark APRN CEMENT BLOCK MAKER PCP - General Nurse Practitioner 03/22/15 06/29/22 Jacob Carmona MD [address] [place] [address] PCP - General 06/30/22 08/28/22 [facility] [address] [place] [address] PCP - General 08/29/22 01/18/23 Lisa Wright PA-C [address] [facility] [place] [address] PCP - General Family Medicine 01/19/23 Annalisa Mark APRN CEMENT BLOCK MAKER Assigned PCP 06/06/18 07/02/19 Mukul Rivas PA-C [address] [place] [address], [place] [address] Assigned PCP 07/03/19 11/19/19 Annalisa Mark APRN CEMENT BLOCK MAKER Assigned PCP 11/20/19 12/10/19 Mukul Rivas PA-C [address] [place] [address], [place] [id number] Assigned PCP 12/11/19 01/21/20 Annalisa Mark APRN CEMENT BLOCK MAKER Assigned PCP 01/22/20 02/21/[address] [facility] [place] [address] Assigned OBGYN Provider 05/18/20 Leonor Burgos MD PR[facility] [address] [place] [address] Assigned PCP 02/22/22 05/16/22 Annalisa Mark APRN CEMENT BLOCK MAKER Assigned PCP 05/17/22 08/15/22 Leonor Burgos MD PR[facility] [address] [place] [address] Assigned PCP 08/16/22 08/29/22 Annalisa Mark APRN CEMENT BLOCK MAKER [address] [place] [address] Assigned PCP 08/30/22 11/21/22 Curtis úNñez MD [address] [facility] [facility] 276 [place] [address] Assigned Pulmonology Provider 09/13/22 Leonor Burgos MD PRIMARY ENT [address] [place], [place] [address] Assigned PCP 11/22/22 11/28/22 Annalisa Mark APRN CEMENT BLOCK MAKER Assigned PCP 11/29/22 01/23/23 Lisa Wright PA-C [address] [place] [address] Assigned PCP 01/24/23 documented as of this encounter
--- OUTSIDE RECORDS SUMMARY | 2024-03-15 08:49 | XMS_ITS | Encounter Summary ---
Author Organization [place] Address [facility] [place] [address] Care Team Providers Care Warehouse Order Puller Name Role Phone Deedee, Annalisa Peacock APRN, CNP Primary Care Provi miguel Unavailable Leonor Burgos MD Unavailable + Deedee, Annalisa Peacock APRN ASSISTANT TENNIS COACH Unavailable Un available Deedee, Annalisa Peacock APRN, CNP Unavailable Un available Mukul Rivas PA-C Unavailable + [phone] Deedee, Annalisa Peacock APRN, CNP Unavailable Un available Mukul Rivas PA-C Unavailable + [phone] Deedee, Annalisa Peacock APRN, CNP Unavailable Un available Jacob Carmona MD Unavailable + [phone] Leonor Burgos MD Unavailable + Deedee, Annalisa Peacock APRN, CNP Unavailable Un available Jacob Carmona MD Primary Care Provider Leonor Burgos MD Unavailable + Clinic [facility] Primary Care Provider Deedee, Annalisa Peacock APRN, CNP Unavailable Un available DincerCurtis MD Unavailable [phone] Leonor Burgos MD Unavailable + Ananlisa Mark APRN ASSISTANT TENNIS COACH Unavailable Un available Lisa Wright PA-C Primary Care Provider Lisa Wright PA-C Unavailable [phone] Encounter Details Date Type Department Care Team (Late st Contact Info) Description 04/21/2017 MyC Medical Advice [facility] Women's [address] [place] [address] Pete Martin MD NO INFO [...] Telephone Encounter - Pamella Chapman RN - 04/21/2017 10:18 AM CDT Please address the my chart message. S. CHRIST Chapman documented in this encounter Plan of Treatment Upcoming Encounters Date Type Department Care Team (Late st Contact Info) Description 03/17/2024 9:00 AM CDT Virtual Visit [facility] [address] [place] [phone] Chanel Asher PA-C [address] [place], [place] [phone] 03/17/2024 9:45 AM CDT Office Visit [facility] [address] [facility] [address] [place] [phone] Jacob Carmona MD [address] [place] [address] documented as of this encounter Visit Diagnoses Not on filedocumented in this encounter Additional Health Concerns Infection Onset Date Last Indicated Resolved Time Rule Out COVID-19 01/14/2021 01/14/2021 01/15/2021 3:32 PM CDT Rule Out C-difficile 02/26/2022 02/26/2022 022 1:52 PM CDT C-difficile 02/26/2022 02/26/2022 03/28/2022 11:4 1 PM CDT Rule Out C-difficile 09/10/2022 09/10/2022 023 5:27 PM POULTRY INSEMINATOR C-difficile 09/10/2022 09/10/2022 10/10/2022 11:3 9 PM CDT Assessment Noted Time PHQ-9 Depression Total Score: 0 12/31/19 17 7:26 AM CDT documented as of this encounter Care Teams Warehouse Order Puller Relationship Specialty Start Date End Date Annalisa Mark APRN ASSISTANT TENNIS COACH PCP - General Nurse Practitioner 03/22/15 06/29/22 Leonor Burgos MD PRIMARY [facility]NT [address] [place], [place] [address] PCP - Assigned PCP 12/13/17 06/05/18 Annalisa Mark APRN ASSISTANT TENNIS COACH PCP - Assigned PCP 06/06/18 09/28/18 Jacob Carmona MD [address] [place] [address] PCP - General 06/30/22 08/28/[address] [id number] PCP - General 08/29/22 01/18/23 Lisa Wright PA-C [address] [place] [address] PCP - General Family Medicine 01/19/23 Annalisa Mark APRN ASSISTANT TENNIS COACH Assigned PCP 06/06/18 07/02/19 Mukul Rivas PA-C [address] [place] [id number] Assigned PCP 07/03/19 11/19/19 Annalisa Mark APRN ASSISTANT TENNIS COACH Assigned PCP 11/20/19 12/10/19 Mukul Rivas PA-C [address] [place] [address] Assigned PCP 12/11/19 01/21/20 Annalisa Mark APRN ASSISTANT TENNIS COACH Assigned PCP 01/22/20 02/21/22 Jacob Carmona MD [address] [place] [address] Assigned OBGYN Provider 05/18/20 Leonor Burgos MD [facility] [address] [place] [address] Assigned PCP 02/22/22 05/16/22 Annalisa Mark APRN ASSISTANT TENNIS COACH Assigned PCP 05/17/22 08/15/22 Leonor Burgos MD [facility] [address] [facility] [address] [place] [address] Assigned PCP 08/16/22 08/29/22 Annalisa Mark APRN ASSISTANT TENNIS COACH [address] [place] [address] Assigned PCP 08/30/22 11/21/22 Curtis Núñez MD [address] [facility] 276 [place] [address] Assigned Pulmonology Provider 09/13/22 Leonor Burgos MD [facility] [address] [facility] [address] [place] [address] Assigned PCP 11/22/22 11/28/22 Annalisa Mark APRN ASSISTANT TENNIS COACH Assigned PCP 11/29/22 01/23/23 Lisa Wright PA-C [address] [place] [address] Assigned PCP 01/24/23 documented as of this encounter
--- OUTSIDE RECORDS SUMMARY | 2024-03-15 08:49 | XMS_ITS | Encounter Summary ---
Author Organization [place] Address [facility] [place] [address] Care Team Providers Care Guide Dog Trainer Name Role Phone Deedee, Annalisa Peacock APRN, CNP Primary Care Provi miguel Unavailable Leonor Burgos MD Unavailable + Deedee, Annalisa Peacock APRN MUSICAL INSTRUMENT MAKER OR REPAIRER Unavailable Un available Deedee, Annalisa Peacock APRN, CNP Unavailable Un available Mukul Rivas PA-C Unavailable + [phone] Deedee, Annalisa Peacock APRN, CNP Unavailable Un available Mukul Rivas PA-C Unavailable + [phone] Deedee, Annalisa Peacock APRN, CNP Unavailable Un available Jacob Carmona MD Unavailable + [phone] Leonor Burgos MD Unavailable + Deedee, Annalisa Peacock APRN, CNP Unavailable Un available Jacob Carmona MD Primary Care Provider Leonor Burgos MD Unavailable + [facility] Primary Care Provider Deedee, Annalisa Peacock APRN, CNP Unavailable Un available DincerCurtis MD Unavailable Leonor Burgos MD Unavailable + Annalisa Mark APRN MUSICAL INSTRUMENT MAKER OR REPAIRER Unavailable Un available Lisa Wright PA-C Primary Care Provider Lisa Wright PA-C Unavailable [phone] Encounter Details Date Type Department Care Team (Late st Contact Info) Description 11/27/2016 MyC Medical Advice [facility] Women's [address] [place] [phone] Pete Martin MD NO INFO AVAILABLE 02/17/23 [...] encounter Miscellaneous Notes * Telephone Encounter - Casie Santos, RN - 11/28/2016 8:25 AM CDT Pt's message from separate mychart: I'm having pain in my pubic bone as well. I don't know if that's normal or not? Tameka Cruz documented in this encounter Plan of Treatment Upcoming Encounters Date Type Department Care Team (Late st Contact Info) Description 03/17/2024 9:00 AM CDT Virtual Visit [facility] [address] [place] [phone] Chanel Asher PA-C [address] [place] [address] 03/17/2024 9:45 AM CDT Office Visit [facility] [address] [facility] [address] [place] [address] Jacob Carmona MD [address] [place] [address] documented as of this encounter Visit Diagnoses Not on filedocumented in this encounter Additional Health Concerns Infection Onset Date Last Indicated Resolved Time Rule Out COVID-19 01/14/2021 01/14/2021 01/15/2021 3:32 PM CDT Rule Out C-difficile 02/26/2022 02/26/2022 022 1:52 PM CDT C-difficile 02/26/2022 02/26/2022 03/28/2022 11:4 1 PM CDT Rule Out C-difficile 09/10/2022 09/10/2022 023 5:27 PM SOC ANALYST C-difficile 09/10/2022 09/10/2022 10/10/2022 11:3 9 PM CDT Assessment Noted Time PHQ-9 Depression Total Score: 5 04/22/20 16 7:19 AM CDT documented as of this encounter Care Teams Guide Dog Trainer Relationship Specialty Start Date End Date Annalisa Mark APRN MUSICAL INSTRUMENT MAKER OR REPAIRER PCP - General Nurse Practitioner 03/22/15 06/29/22 Lenoor Burgos MD PRIMARY [facility] [address] [place] [address] PCP - Assigned PCP 12/13/17 06/05/18 Annalisa Mark APRN MUSICAL INSTRUMENT MAKER OR REPAIRER PCP - Assigned PCP 06/06/18 09/28/18 Jacob Carmona MD [address] [place] [address] PCP - General 06/30/22 08/28/22 Clinic - [facility] [address] [place] [address] PCP - General 08/29/22 01/18/23 Lisa Wright PA-C [address] [facility] [address] PCP - General Family Medicine 01/19/23 Annalisa Mark APRN MUSICAL INSTRUMENT MAKER OR REPAIRER Assigned PCP 06/06/18 07/02/19 Mukul Rivas PA-C [address] [place] [address] Assigned PCP 07/03/19 11/19/19 Annalisa Mark APRN MUSICAL INSTRUMENT MAKER OR REPAIRER Assigned PCP 11/20/19 12/10/19 Mukul Rivas PA-C [address] [place] [id number] Assigned PCP 12/11/19 01/21/20 Annalisa Mark APRN MUSICAL INSTRUMENT MAKER OR REPAIRER Assigned PCP 01/22/20 02/21/22 Jacob Carmona MD [facility] [place] [address] Assigned OBGYN Provider 05/18/20 Leonor Burgos MD PRIMARY ENT [address] [facility] [address] [place] [address] Assigned PCP 02/22/22 05/16/22 Annalisa Mark APRN MUSICAL INSTRUMENT MAKER OR REPAIRER Assigned PCP 05/17/22 08/15/22 Leonor Burgos MD [facility] [address] [facility] [address] [place], [place] [address] Assigned PCP 08/16/22 08/29/22 Annalisa Mark APRN MUSICAL INSTRUMENT MAKER OR REPAIRER [address] [place] [address] Assigned PCP 08/30/22 11/21/22 Curtis Núñez MD [address] [facility] 276 [place] [address] Assigned Pulmonology Provider 09/13/22 Leonor Burgos MD [facility] [address] [facility] [address] [place] [address] Assigned PCP 11/22/22 11/28/22 Annalisa Mark APRN MUSICAL INSTRUMENT MAKER OR REPAIRER Assigned PCP 11/29/22 01/23/23 Lisa Wright PA-C [address] [facility] [address] Assigned PCP 01/24/23 documented as of this encounter
--- OUTSIDE RECORDS SUMMARY | 2024-03-15 08:49 | XMS_ITS | Encounter Summary ---
Author Organization [place] Address [facility] [address] Care Team Providers Care Beam Department Supervisor Name Role Phone Deedee, Annalisa Peacock APRN, CNP Primary Care Provi miguel Unavailable Leonor Burgos MD Unavailable + Deedee, Annalisa Peacock APRN RIB TRIM SEPARATOR Unavailable Un available Deedee, Annalisa Peacock APRN, CNP Unavailable Un available Mukul Rivas PA-C Unavailable + [phone] Deedee, Annalisa Peacock APRN, CNP Unavailable Un available Mukul Rivas PA-C Unavailable + [phone] Deedee, Annalisa Peacock APRN, CNP Unavailable Un available Jacob Carmona MD Unavailable + [phone] Leonor Burgos MD Unavailable + Deedee, Annalisa Peacock APRN, CNP Unavailable Un available Jacob Carmona MD Primary Care Provider Leonor Burgos MD Unavailable + Clinic [facility] Primary Care Provider Deedee, Annalisa Peacock APRN, CNP Unavailable Un available DincerCurtis MD Unavailable Leonor Burgos MD Unavailable + Annalisa Mark APRN RIB TRIM SEPARATOR Unavailable Un available Lisa Wright PA-C Primary Care Provider Lisa Wright PA-C Unavailable [phone] Encounter Details Date Type Department Care Team (Late st Contact Info) Description 12/25/2016 MyC Medical Advice [facility] [id number] [place] [address] [phone] Annalisa Mark APRN CNP Social History Tobacco Use Types Packs/Day Years [...] Description 03/17/2024 9:00 AM CDT Virtual Visit [address] [phone] Chanel Asher PA-C [id number] [place] [address] [phone] 03/17/2024 9:45 AM CDT Office Visit [facility] [address] [facility] [address] [place] [address] Jacob Carmona MD [address] [phone] documented as of this encounter Visit Diagnoses Not on filedocumented in this encounter Additional Health Concerns Infection Onset Date Last Indicated Resolved Time Rule Out COVID-19 01/14/2021 01/14/202101/15/2021 3:32 PM CDT Rule Out C-difficile 02/26/2022 02/26/2022 022 1:52 PM CDT C-difficile 02/26/2022 02/26/2022 03/28/2022 11:4 1 PM CDT Rule Out C-difficile 09/10/2022 09/10/2022 023 5:27 PM ENVIRONMENTAL SERVICES LEAD C-difficile 09/10/2022 09/10/2022 10/10/2022 11:3 9 PM CDT Assessment Noted Time PHQ-9 Depression Total Score: 5 04/22/20 16 7:19 AM CDT documented as of this encounter Care Teams Beam Department Supervisor Relationship Specialty Start Date End Date Annalisa Mark APRN RIB TRIM SEPARATOR PCP - General Nurse Practitioner 03/22/15 06/29/22 Leonor Burgos MD PRIMARY ENT [address] [place] [address] PCP - Assigned PCP 12/13/17 06/05/18 Annalisa Mark APRN RIB TRIM SEPARATOR PCP - Assigned PCP 06/06/18 09/28/18 Jacob Carmona MD [address] [place] [address] PCP - General 06/30/22 08/28/22 [facility] [address] [place] [address] PCP - General 08/29/22 01/18/23 Lisa Wright PA-C [address] [place] [address] PCP - General Family Medicine 01/19/23 Annalisa Mark APRN RIB TRIM SEPARATOR Assigned PCP 06/06/18 07/02/19 Mukul Rivas PA-C [address] [place] [address] Assigned PCP 07/03/19 11/19/19 Annalisa Mark APRN RIB TRIM SEPARATOR Assigned PCP 11/20/19 12/10/19 Mukul Rivas PA-C [address] [place] [address], [place] [address] Assigned PCP 12/11/19 01/21/20 Annalisa Mark APRN RIB TRIM SEPARATOR Assigned PCP 01/22/20 02/21/22 Jacob Carmona MD [address] [place] [address] Assigned OBGYN Provider 05/18/20 Leonor Burgos MD [facility] [address] [place] [address] Assigned PCP 02/22/22 05/16/22 Annalisa Mark APRN RIB TRIM SEPARATOR Assigned PCP 05/17/22 08/15/22 Leonor Burgos MD PRIMARY ENT [address] [place] [address] Assigned PCP 08/16/22 08/29/22 Annalisa Mark APRN RIB TRIM SEPARATOR [address] [facility] [place] [address] Assigned PCP 08/30/22 11/21/22 Curtis Núñez MD [address] [facility] [address] [place], [place] [address] Assigned Pulmonology Provider 09/13/22 Leonor Burgos MD PRIMARY ENT [address] [place], [place] [address] Assigned PCP 11/22/22 11/28/22 Annalisa Mark APRN RIB TRIM SEPARATOR Assigned PCP 11/29/22 01/23/23 Lisa Wright PA-C [address] [place] [address] Assigned PCP 01/24/23 documented as of this encounter
--- OUTSIDE RECORDS SUMMARY | 2024-03-15 08:49 | XMS_ITS | Encounter Summary ---
Author Organization [place] Address [facility] [place] [address] Care Team Providers Care It Operations Manager Name Role Phone Deedee, Annalisa Peacock APRN, CNP Primary Care Provi miguel Unavailable Leonor Burgos MD Unavailable + Deedee, Annalisa Peacock APRN HELMET HAT BRIM CUTTER Unavailable Un available Deedee, Annalisa Peacock APRN, CNP Unavailable Un available Mukul Rivas PA-C Unavailable + [phone] Deedee, Annalisa Peacock APRN, CNP Unavailable Un available Mukul Rivas PA-C Unavailable + [phone] Deedee, Annalisa Peacock APRN, CNP Unavailable Un available Jacob Carmona MD Unavailable + [phone] Leonor Burgos MD Unavailable + Deedee, Annalisa Peacock APRN, CNP Unavailable Un available Jacob Carmona MD Primary Care Provider Leonor Burgos MD Unavailable + Clinic [facility] Primary Care Provider Deedee, Annalisa Peacock APRN, CNP Unavailable Un available DincerCurtis MD Unavailable [phone] Leonor Burgos MD Unavailable + Annalisa Mark APRN HELMET HAT BRIM CUTTER Unavailable Un available Lisa Wright PA-C Primary Care Provider Lisa Wright PA-C Unavailable [phone] Encounter Details Date Type Department Care Team (Late st Contact Info) Description 06/07/[address] [facility] [address] [place] [phone] Pete Martin MD NO INFO AVAILABLE 02/17/23 [...] CDT Virtual Visit [facility] [address] [place] [phone] Chanel Asher PA-C [address] [place], [place] [phone] 03/17/2024 9:45 AM CDT Office Visit [facility] [address] [facility] [address] [place] [address] Jacob Carmona MD [address] [place] [address] documented as of this encounter Visit Diagnoses Not on filedocumented in this encounter Additional Health Concerns Infection Onset Date Last Indicated Resolved Time Rule Out COVID-19 01/14/2021 01/14/2021 01/15/2021 3:32 PM CDT Rule Out C-difficile 02/26/2022 02/26/2022 022 1:52 PM CDT C-difficile 02/26/2022 02/26/2022 03/28/2022 11:4 1 PM CDT Rule Out C-difficile 09/10/2022 09/10/2022 023 5:27 PM UNDERWRITING ANALYST C-difficile 09/10/2022 09/10/2022 10/10/2022 11:3 9 PM CDT Assessment Noted Time PHQ-9 Depression Total Score: 0 12/31/19 17 7:26 AM CDT documented as of this encounter Care Teams It Operations Manager Relationship Specialty Start Date End Date Annalisa Mark APRN HELMET HAT BRIM CUTTER PCP - General Nurse Practitioner 03/22/15 06/29/22 Leonor Burgos MD PRIMARY ENT [address] [place], [place] [address] PCP - Assigned PCP 12/13/17 06/05/18 Annalisa Mark APRN HELMET HAT BRIM CUTTER PCP - Assigned PCP 06/06/18 09/28/18 Jacob Carmona MD [address] [place] [address] PCP - General 06/30/22 08/28/22 [facility] [address] [place] [address] PCP - General 08/29/22 01/18/23 Lisa Wright PA-C [address] [place] [address] PCP - General Family Medicine 01/19/23 Annalisa Mark APRN HELMET HAT BRIM CUTTER Assigned PCP 06/06/18 07/02/19 Mukul Rivas PA-C [address] [place] [address], [place] [address] Assigned PCP 07/03/19 11/19/19 Annalisa Mark APRN HELMET HAT BRIM CUTTER Assigned PCP 11/20/19 12/10/19 Mukul Rivas PA-C [address] [place] [address], [place] [id number] Assigned PCP 12/11/19 01/21/20 Annlaisa Mark APRN HELMET HAT BRIM CUTTER Assigned PCP 01/22/20 02/21/22 Jacob Carmona MD [address] [place] [address] Assigned OBGYN Provider 05/18/20 Leonor Burgos MD PRIMARY ENT [address] [place] [address] Assigned PCP 02/22/22 05/16/22 Annalisa Mark APRN HELMET HAT BRIM CUTTER Assigned PCP 05/17/22 08/15/22 Leonor Burgos MD PRIMARY ENT [address] [place] [address] Assigned PCP 08/16/22 08/29/22 Annalisa Mark APRN HELMET HAT BRIM CUTTER [address] [place] [address] Assigned PCP 08/30/22 11/21/22 Curtis Núñez MD [address] [facility] 276 [place] [address] Assigned Pulmonology Provider 09/13/22 Leonor Burgos MD PRIMARY ENT [address] [facility] [address] [place], [place] [address] Assigned PCP 11/22/22 11/28/22 Annalisa Mark APRN HELMET HAT BRIM CUTTER Assigned PCP 11/29/22 01/23/23 Lisa Wright PA-C [address] [place] [address] Assigned PCP 01/24/23 documented as of this encounter
--- OUTSIDE RECORDS SUMMARY | 2024-03-15 08:49 | XMS_ITS | Encounter Summary ---
Author Organization [place] Address [facility] [place] [address] Care Team Providers Care Electronic Semiconductor Processor Name Role Phone Deedee, Annalisa Peacock APRN, CNP Primary Care Provi miguel Unavailable Leonor Burgos MD Unavailable + Deedee, Annalisa Peacock APRN ACCOUNT SERVICES MANAGER Unavailable Un available Deedee, Annalisa Peacock APRN, CNP Unavailable Un available Mukul Rivas PA-C Unavailable + [phone] Deedee, Annalisa Peacock APRN, CNP Unavailable Un available Mukul Rivas PA-C Unavailable + [phone] Deedee, Annalisa Peacock APRN, CNP Unavailable Un available Jacob Carmona MD Unavailable + [phone] Leonor Burgos MD Unavailable + Deedee, Annalisa Peacock APRN, CNP Unavailable Un available Jacob Carmona MD Primary Care Provider Leonor Burgos MD Unavailable + Clinic [facility] Primary Care Provider Deedee, Annalisa Peacock APRN, CNP Unavailable Un available DincerCurtis MD Unavailable Leonor Burgos MD Unavailable + Annalisa Mark APRN ACCOUNT SERVICES MANAGER Unavailable Un available Lisa Wright PA-C Primary Care Provider [phone] Lisa Wright PA-C Unavailable [phone] Encounter Details Date Type Department Care Team (Late st Contact Info) Description 09/09/2016 MyC Medical Advice [facility] [address] [phone] Pete Martin MD NO INFO AVAILABLE 02/17/23 [...] Description 03/17/2024 9:00 AM CDT Virtual Visit [facility] [address] [place] [phone] Chanel Asher PA-C [address] [place] [address] [phone] 03/17/2024 9:45 AM CDT Office Visit [facility] [address] [facility] [address] [place] [address] Jacob Carmona MD [address] [place], [place] [address] documented as of this encounter Visit Diagnoses Not on filedocumented in this encounter Additional Health Concerns Infection Onset Date Last Indicated Resolved Time Rule Out COVID-19 01/14/2021 01/14/2021 01/15/2021 3:32 PM CDT Rule Out C-difficile 02/26/2022 02/26/2022 022 1:52 PM CDT C-difficile 02/26/2022 02/26/2022 03/28/2022 11:4 1 PM CDT Rule Out C-difficile 09/10/2022 09/10/2022 023 5:27 PM SAMPLE EXAMINER C-difficile 09/10/2022 09/10/2022 10/10/2022 11:3 9 PM CDT Assessment Noted Time PHQ-9 Depression Total Score: 5 04/22/20 16 7:19 AM CDT documented as of this encounter Care Teams Electronic Semiconductor Processor Relationship Specialty Start Date End Date Annalisa Mark APRN ACCOUNT SERVICES MANAGER PCP - General Nurse Practitioner 03/22/15 06/29/22 Leonor Burgos MD PRIMARY ENT [address] [place] [address] PCP - Assigned PCP 12/13/17 06/05/18 Annalisa Mark APRN ACCOUNT SERVICES MANAGER PCP - Assigned PCP 06/06/18 09/28/18 Jacob Carmona MD [address] [place] [address] PCP - General 06/30/22 08/28/22 [facility] [address] [place] [address] PCP - General 08/29/22 01/18/23 Lisa Wright PA-C [address] [place] [phone] PCP - General Family Medicine 01/19/23 Annalisa Mark APRN ACCOUNT SERVICES MANAGER Assigned PCP 06/06/18 07/02/19 Mukul Rivas PA-C [address] [place] [address], [place] [address] Assigned PCP 07/03/19 11/19/19 Annalisa Mark APRN ACCOUNT SERVICES MANAGER Assigned PCP 11/20/19 12/10/19 Mukul Rivas PA-C [address] [place] [address], [place] [id number] Assigned PCP 12/11/19 01/21/20 Annalisa Mark APRN ACCOUNT SERVICES MANAGER Assigned PCP 01/22/20 02/21/22 Jacob Carmona MD [address] [facility] [place] [address] Assigned OBGYN Provider 05/18/20 Leonor Burgos MD PRIMARY ENT [address] [place], [place] [address] Assigned PCP 02/22/22 05/16/22 Annalisa Mark APRN ACCOUNT SERVICES MANAGER Assigned PCP 05/17/22 08/15/22 Leonor Burgos MD PRIMARY ENT [address] [place] [address] Assigned PCP 08/16/22 08/29/22 Annalisa Mark APRN ACCOUNT SERVICES MANAGER [address] [facility] [place] [address] Assigned PCP 08/30/22 11/21/22 Curtis Núñez MD [address] [facility] [address] [place] [address] Assigned Pulmonology Provider 09/13/22 Leonor Burgos MD PRIMARY ENT [address] [place], [place] [address] Assigned PCP 11/22/22 11/28/22 Annalisa Mark APRN ACCOUNT SERVICES MANAGER Assigned PCP 11/29/22 01/23/23 Lisa Wright PA-C [address] [place] [address] Assigned PCP 01/24/23 documented as of this encounter
--- OUTSIDE RECORDS SUMMARY | 2024-03-15 08:49 | XMS_ITS | Encounter Summary ---
Author Organization [place] Address [address] [place] [address]. [place] [address] Care Team Providers Care Clinical Pharmacy Specialist Name Role Phone Deedee, Annalisa Peacock APRN, CNP Primary Care Provi miguel Unavailable Deedee, Annalisa Peacock APRN, CNP Unavailable Un available Deedee, Annalisa Peacock APRN, CNP Unavailable Un available Mukul Rivas PA-C Unavailable + [phone] Deedee, Annalisa Peacock APRN, CNP Unavailable Un available Mukul Rivas PA-C Unavailable + [phone] Deedee, Annalisa Peacock APRN, CNP Unavailable Un available Jacob Carmona MD Unavailable + [phone] Leonor Burgos MD Unavailable + DeedeeAnnalisa APRN, CNP Unavailable Un available Jacob Carmona MD Primary Care Provider Leonor Burgos MD Unavailable + [facility] Primary Care Provider Deedee, Annalisa Peacock APRN ORACLE PROGRAMMER Unavailable Un available Curtis Núñez MD Unavailable [phone] Leonor Burgos MD Unavailable + DeedeeAnnalisakadeem STANLEY ORACLE PROGRAMMER Unavailable Un available Lisa Wright PA-C Primary Care Provider [phone] Lisa Wright PA-C Unavailable Reason for Visit * Reason Onset Date Comments Allied Health Visit 07/06/2018 Flu Swab Encounter Details Date Type Department Care Team (Late st Contact Info) Description 07/06/2018 MyC Medical Advice [address] [phone] Chanel Asher PA-C [id number] [place] [address] Allied Health Visit (Flu Swab) Social History Tobacco Use Types Packs/Day Years [...] encounter Miscellaneous Notes * Telephone Encounter - Avery Boswell MA - 07/06/2018 6:10 PM CST Pt presents to clinic for a flu swab per order from Chanel Asher PA-C. Results came back NEGATIVE. Please follow up with patient accordingly. See Note for current vitals from visit. ?? Avery Boswell HYDRAULIC TESTER (AAMA) TRAILER FILLER documented in this encounter Plan of Treatment Upcoming Encounters Date Type Department Care Team (Late st Contact Info) Description 03/17/2024 9:00 AM CDT Virtual Visit [address] [address] Chanel Asher PA-C [address] [place] [address] 03/17/2024 9:45 AM CDT Office Visit [facility] [address] [facility] [address] [place] [address] Jacob Carmona MD [address] [place] [address] documented as of this encounter Visit Diagnoses Not on filedocumented in this encounter Additional Health Concerns Infection Onset Date Last Indicated Resolved Time Rule Out COVID-19 01/14/2021 01/14/2021 01/15/2021 3:32 PM CDT Rule Out C-difficile 02/26/2022 02/26/2022 022 1:52 PM CDT C-difficile 02/26/2022 02/26/2022 03/28/2022 11:4 1 PM CDT Rule Out C-difficile 09/10/2022 09/10/2022 023 5:27 PM TUBE TRAILER FILLER C-difficile 09/10/2022 09/10/2022 10/10/2022 11:3 9 PM CDT Assessment Noted Time PHQ-9 Depression Total Score: 7 06/04/20 18 3:40 PM TUBE TRAILER FILLER documented as of this encounter Care Teams Clinical Pharmacy Specialist Relationship Specialty Start Date End Date Annalisa Mark APRN ORACLE PROGRAMMER PCP - General Nurse Practitioner 03/22/15 06/29/22 Annalisa Mark APRN ORACLE PROGRAMMER PCP - Assigned PCP 06/06/18 09/28/18 Jacob Carmona MD [address] [place] [address] PCP - General 06/30/22 08/28/22 [facility] [address] [place] [address] PCP - General 08/29/22 01/18/23 Lisa Wright PA-C [address] [facility] [place] [address] PCP - General Family Medicine 01/19/23 Annalisa Mark APRN ORACLE PROGRAMMER Assigned PCP 06/06/18 07/02/19 Mukul Rivas PA-C [address] [place] [address] Assigned PCP 07/03/19 11/19/19 Annalisa Mark APRN ORACLE PROGRAMMER Assigned PCP 11/20/19 12/10/19 Mukul Rivas PA-C [address] [place] [address], [place] [address] Assigned PCP 12/11/19 01/21/20 Annalisa Mark APRN ORACLE PROGRAMMER Assigned PCP 01/22/20 02/21/22 Jacob Carmona MD [address] [place] [place] [address] Assigned OBGYN Provider 05/18/20 Leonor Burgos MD [facility] [address] [place] [address] Assigned PCP 02/22/22 05/16/22 Annalisa Mark APRN ORACLE PROGRAMMER Assigned PCP 05/17/22 08/15/22 Leonor Burgos MD PRIMARY [facility] [address] [place] [address] Assigned PCP 08/16/22 08/29/22 Annalisa Mark APRN ORACLE PROGRAMMER [address] [place] [address] Assigned PCP 08/30/22 11/21/22 Curtis Núñez MD [address] [facility] [address] [place] [address] Assigned Pulmonology Provider 09/13/22 Leonor Burgos MD PRIMARY ENT [address] [place] [address] Assigned PCP 11/22/22 11/28/22 Annalisa Mark APRN ORACLE PROGRAMMER Assigned PCP 11/29/22 01/23/23 Lisa Wright PA-C [address] [facility] [address] Assigned PCP 01/24/23 documented as of this encounter
--- OUTSIDE RECORDS SUMMARY | 2024-03-15 08:49 | XMS_ITS | Encounter Summary ---
Author Organization [place] Address [facility] [address] Care Team Providers Care Roller Mill Tender Name Role Phone Deedee, Annalisa Peacock APRN, CNP Primary Care Provi miguel Unavailable Leonor Burgos MD Unavailable + Deedee, Annalisa Peacock APRN PURCHASING EXPEDITOR Unavailable Un available Deedee, Annalisa Peacock APRN, CNP Unavailable Un available Mukul Rivas PA-C Unavailable + [phone] Deedee, Annalisa Peacock APRN, CNP Unavailable Un available Mukul Rivas PA-C Unavailable + [phone] Deedee, Annalisa Peacock APRN, CNP Unavailable Un available Jacob Carmona MD Unavailable + [phone] Leonor Burgos MD Unavailable + Deedee, Annalisa Peacock APRN, CNP Unavailable Un available Jacob Carmona MD Primary Care Provider Leonor Burgos MD Unavailable + Clinic [facility] Primary Care Provider Deedee, Annalisa Peacock APRN, CNP Unavailable Un available DincerCurtis MD Unavailable Leonor Burgos MD Unavailable + Annalisa Mark APRN, CNP Unavailable Un available Lisa Wright PA-C Primary Care Provider [phone] Lisa Wright PA-C Unavailable [phone] Reason for Referral * - Closed Specialty Diagnoses / Procedures Referred By Contac t Referred To Contact Diagnoses Encounter for preconception consultation Pete Martin MD NO INFO AVAILABLE 02/17/23 Referral ID Status Reason Start Date Expiration Date Visits Re quested Visits Authorized [id number] Closed 04/20/2018 04/20/2019 1 1 Comments Child with CF Encounter Details Date Type Department Care Team (Late st Contact Info) Description 04/20/2018 Orders Only [facility] [place] [address] [facility] [address] [place] [phone] Pete Martin MD NO INFO AVAILABLE 02/17/23 Encounter for preconception consultation (Primary Dx) Social History Tobacco Use Types [...] CDT Virtual Visit [facility] [address] [place] [phone] Chanel Asher PA-C [address] [place] [address] [phone] 03/17/2024 9:45 AM CDT Office Visit [facility] [address] [facility] [address] [place] [address] Jacob Carmona MD [address] [place] [address] Scheduled Referrals Name Type Priority Associated Diagnoses Orde r Schedule MFM Genetic Counseling Referral Routine Encounter for preconception consultation 1 Occurrences starting 04/20/2018 until 04/20/2019 documented as of this encounter Visit Diagnoses Diagnosis Encounter for preconception consultation- Primary documented in this encounter Additional Health Concerns Infection Onset Date Last Indicated Resolved Time Rule Out COVID-19 01/14/2021 01/14/2021 01/15/2021 3:32 PM CDT Rule Out C-difficile 02/26/2022 02/26/2022 022 1:52 PM CDT C-difficile 02/26/2022 02/26/2022 03/28/2022 11:4 1 PM CDT Rule Out C-difficile 09/10/2022 09/10/2022 023 5:27 PM TAVERN CAR ATTENDANT C-difficile 09/10/2022 09/10/2022 10/10/2022 11:3 9 PM CDT Assessment Noted Time PHQ-9 Depression Total Score: 4 09/25/19 18 8:33 AM TAVERN CAR ATTENDANT documented as of this encounter Care Teams Roller Mill Tender Relationship Specialty Start Date End Date Annalisa Mark APRN PURCHASING EXPEDITOR PCP - General Nurse Practitioner 03/22/15 06/29/22 Leonor Burgos MD PRIMARY ENT [address] [place] [address] PCP - Assigned PCP 12/13/17 06/05/18 Annalisa Mark APRN PURCHASING EXPEDITOR PCP - Assigned PCP 06/06/18 09/28/18 Jacob Carmona MD [address] [place] [address] PCP - General 06/30/22 08/28/22 [facility] [address] [place] [address] PCP - General 08/29/22 01/18/23 Lisa Wright PA-C [address] [place] [address] PCP - General Family Medicine 01/19/23 Annalisa Mark APRN PURCHASING EXPEDITOR Assigned PCP 06/06/18 07/02/19 Mukul Rivas PA-C [address] [place] [address] Assigned PCP 07/03/19 11/19/19 Annalisa Mark APRN PURCHASING EXPEDITOR Assigned PCP 11/20/19 12/10/19 Mukul Rivas PA-C [address] [place] [address] Assigned PCP 12/11/19 01/21/20 Annalisa Mark APRN PURCHASING EXPEDITOR Assigned PCP 01/22/20 02/21/22 Jacob Carmona MD [address] [place] [address] Assigned OBGYN Provider 05/18/20 Leonor Burgos MD PRIMARY E[facility] [address] [place] [address] Assigned PCP 02/22/22 05/16/22 Annalisa Mark APRN PURCHASING EXPEDITOR Assigned PCP 05/17/22 08/15/22 Leonor Burgos MD [facility] [address] [place], [place] [address] Assigned PCP 08/16/22 08/29/22 Annalisa Mark APRN PURCHASING EXPEDITOR [address] [place] [address] Assigned PCP 08/30/22 11/21/22 Curtis Núñez MD [address] [place] [address] 276 [place] [address] Assigned Pulmonology Provider 09/13/22 Leonor Burgos MD PRIMARY ENT [address] [facility] [address] [place] [address] Assigned PCP 11/22/22 11/28/22 Annalisa Mark APRN PURCHASING EXPEDITOR Assigned PCP 11/29/22 01/23/23 Lisa Wright PA-C [address] [place] [address] Assigned PCP 01/24/23 documented as of this encounter
--- OUTSIDE RECORDS SUMMARY | 2024-03-15 08:49 | XMS_ITS | Encounter Summary ---
Author Organization [place] Address [facility] [place] [address] Care Team Providers Care Stereo Equipment Repairer Name Role Phone Deedee, Annalisa Peacock APRN, CNP Primary Care Provi miguel Unavailable Leonor Burgos MD Unavailable + Deedee, Annalisa Peacock APRN SENIOR MANAGING DIRECTOR Unavailable Un available Deedee, Annalisa Peacock APRN, CNP Unavailable Un available Mukul Rivas PA-C Unavailable + [phone] Deedee, Annalisa Peacock APRN, CNP Unavailable Un available Mukul Rivas PA-C Unavailable + [phone] Deedee, Annalisa Peacock APRN, CNP Unavailable Un available Jacob Carmona MD Unavailable + [phone] Leonor Burgos MD Unavailable + Deedee, Annalisa Peacock APRN, CNP Unavailable Un available Jacob Carmona MD Primary Care Provider Leonor Burgos MD Unavailable + Clinic [facility] Primary Care Provider Deedee, Annalisa Peacock APRN, CNP Unavailable Un available DincerCurtis MD Unavailable +[phone] Leonor Burgos MD Unavailable + Annalisa Mark APRN SENIOR MANAGING DIRECTOR Unavailable Un available Lisa Wright PA-C Primary Care Provider [phone] Lisa Wright PA-C Unavailable [phone] Reason for Visit * Reason Onset Date Comments Care 10/17/2016 question about k ennel cough Encounter Details Date Type Department Care Team (Late st Contact Info) Description 10/17/2016 MyC Medical Advice [facility] [address] [place] [address] Pete Martin MD NO INFO AVAILABLE 02/17/23 Care (question about kennel cough) Social History Tobacco Use Types Packs/Day Years [...] Miscellaneous Notes * Telephone Encounter - Casie Santos RN - 10/20/2016 8:[address] Martin, Please see mychart message. Casie Santos, R.N. documented in this encounter Plan of Treatment Upcoming Encounters Date Type Department Care Team (Late st Contact Info) Description 03/17/2024 9:00 AM CDT Virtual Visit [facility] [id number] [place] [phone] Chanel Asher PA-C [id number] [place] [address] 03/17/2024 9:45 AM CDT Office Visit [facility] [address] [facility] [address] [place] [address] Jacob Carmona MD [address] [place] [address] documented as of this encounter Visit Diagnoses Not on filedocumented in this encounter Additional Health Concerns Infection Onset Date Last Indicated Resolved Time Rule Out COVID-19 01/14/2021 01/14/2021 01/15/2021 3:32 PM CDT Rule Out C-difficile 02/26/2022 02/26/2022 022 1:52 PM CDT C-difficile 02/26/2022 02/26/2022 03/28/2022 11:4 1 PM CDT Rule Out C-difficile 09/10/2022 09/10/2022 023 5:27 PM ZIGZAGGER C-difficile 09/10/2022 09/10/2022 10/10/2022 11:3 9 PM CDT Assessment Noted Time PHQ-9 Depression Total Score: 5 04/22/20 16 7:19 AM CDT documented as of this encounter Care Teams Stereo Equipment Repairer Relationship Specialty Start Date End Date Annalisa Mark APRN SENIOR MANAGING DIRECTOR PCP - General Nurse Practitioner 03/22/15 06/29/22 Leonor Burgos MD PRIMARY ENT [address] [facility] [address] [place] [address] PCP - Assigned PCP 12/13/17 06/05/18 Annalisa Mark APRN SENIOR MANAGING DIRECTOR PCP - Assigned PCP 06/06/18 09/28/18 Jacob Carmona MD [address] [place], [place] [address] PCP - General 06/30/22 08/28/22 [facility] [address] [place] [address] PCP - General 08/29/22 01/18/23 Lisa Wright PA-C [address] [place] [address] PCP - General Family Medicine 01/19/23 Annalisa Mark APRN SENIOR MANAGING DIRECTOR Assigned PCP 06/06/18 07/02/19 Mukul Rivas PA-C [address] [place] [address] Assigned PCP 07/03/19 11/19/19 Annalisa Mark APRN SENIOR MANAGING DIRECTOR Assigned PCP 11/20/19 12/10/19 Mukul Rivas PA-C [address] [place] [address] [id number] Assigned PCP 12/11/19 01/21/20 Annalisa Mark APRN SENIOR MANAGING DIRECTOR Assigned PCP 01/22/20 02/21/22 Jacob Carmona MD [address] [place] [address] Assigned OBGYN Provider 05/18/20 Leonor Burgos MD PRIMARY ENT [address] [facility] [address] [place] [address] Assigned PCP 02/22/22 05/16/22 Annalisa Mark APRN SENIOR MANAGING DIRECTOR Assigned PCP 05/17/22 08/15/22 Leonor Burgos MD PRIMARY ENT [address] [facility] [address] [place] [address] Assigned PCP 08/16/22 08/29/22 Annalisa Mark APRN SENIOR MANAGING DIRECTOR [address] [place] [address] Assigned PCP 08/30/22 11/21/22 Curtis Núñez MD [address] [facility] 276 [place], [place] [address] Assigned Pulmonology Provider 09/13/22 Leonor Burgos MD PRIMARY ENT [address] [facility] [address] [place] [address] Assigned PCP 11/22/22 11/28/22 Annalisa Mark APRN SENIOR MANAGING DIRECTOR Assigned PCP 11/29/22 01/23/23 Lisa Wright PA-C [address] [place] [address] Assigned PCP 01/24/23 documented as of this encounter
--- OUTSIDE RECORDS SUMMARY | 2024-03-15 08:49 | XMS_ITS | Encounter Summary ---
Author Organization [place] Address [facility] [place] [address] Care Team Providers Care Rapid Extractor Operator Name Role Phone Deedee, Annalisa Peacock APRN, CNP Primary Care Provi miguel Unavailable Leonor Burgos MD Unavailable + Deedee, Annalisa Peacock APRN SUPERVISOR ABATTOIR Unavailable Un available Deedee, Annalisa Peacock APRN, CNP Unavailable Un available Mukul Rivas PA-C Unavailable + [phone] Deedee, Annalisa Peacock APRN, CNP Unavailable Un available Mukul Rivas PA-C Unavailable + [phone] Deedee, Annalisa Peacock APRN, CNP Unavailable Un available Jacob Carmona MD Unavailable + [phone] Leonor Burgos MD Unavailable + Deedee, Annalisa Peacock APRN, CNP Unavailable Un available Jacob Carmona MD Primary Care Provider Leonor Burgos MD Unavailable + Clinic [facility] Primary Care Provider Deedee, Annalisa Peacock APRN, CNP Unavailable Un available DincerCurtis MD Unavailable Leonor Burgos MD Unavailable + Annalisa Mark APRN SUPERVISOR ABATTOIR Unavailable Un available Lisa Wright PA-C Primary Care Provider Lisa Wright PA-C Unavailable [phone] Encounter Details Date Type Department Care Team (Late st Contact Info) Description 01/29/[address] [facility] [address] [place] [phone] Latoya Higuera APRN SUPERVISOR ABATTOIR [address] [place] [address] [address] [place], [place] [address] Social History Tobacco Use Types Packs/Day Years [...] Description 03/17/2024 9:00 AM CDT Virtual Visit [address] [phone] Chanel Asher PA-C [address] [place] [address] 03/17/2024 9:45 AM CDT Office Visit [facility] [address] [facility] [address] [place] [phone] Jacob Carmona MD [address] [place], [place] [address] documented as of this encounter Visit Diagnoses Not on filedocumented in this encounter Additional Health Concerns Infection Onset Date Last Indicated Resolved Time Rule Out COVID-19 01/14/2021 01/14/2021 01/15/2021 3:32 PM CDT Rule Out C-difficile 02/26/2022 02/26/2022 022 1:52 PM CDT C-difficile 02/26/2022 02/26/2022 03/28/2022 11:4 1 PM CDT Rule Out C-difficile 09/10/2022 09/10/2022 023 5:27 PM SUPERVISOR NEWSPAPER DELIVERIES C-difficile 09/10/2022 09/10/2022 10/10/2022 11:3 9 PM CDT Assessment Noted Time PHQ-9 Depression Total Score: 4 09/25/19 18 8:33 AM SUPERVISOR NEWSPAPER DELIVERIES documented as of this encounter Care Teams Rapid Extractor Operator Relationship Specialty Start Date End Date Annalisa Mark APRN SUPERVISOR ABATTOIR PCP - General Nurse Practitioner 03/22/15 06/29/22 Leonor Burgos MD PRIMARY ENT [address] [place] [address] PCP - Assigned PCP 12/13/17 06/05/18 Annalisa Mark APRN SUPERVISOR ABATTOIR PCP - Assigned PCP 06/06/18 09/28/18 Jacob Carmona MD [address] [place] [address] PCP - General 06/30/22 08/28/22 [facility] [address] [place], [place] [phone] PCP - General 08/29/22 01/18/23 Lisa Wright PA-C [address] [place] [phone] PCP - General Family Medicine 01/19/23 Annalisa Mark APRN SUPERVISOR ABATTOIR Assigned PCP 06/06/18 07/02/19 Mukul Rivas PA-C [address] [place] [phone] Assigned PCP 07/03/19 11/19/19 Annalisa Mark APRN SUPERVISOR ABATTOIR Assigned PCP 11/20/19 12/10/19 Mukul Rivas PA-C [address] [place] [address] Assigned PCP 12/11/19 01/21/20 Annalisa Mark APRN SUPERVISOR ABATTOIR Assigned PCP 01/22/20 02/21/22 Jacob Carmona MD [address] [place] [address] Assigned OBGYN Provider 05/18/20 Leonor Burgos MD PRIMARY ENT [address] [place] [address] Assigned PCP 02/22/22 05/16/22 Annalisa Mark APRN SUPERVISOR ABATTOIR Assigned PCP 05/17/22 08/15/22 Leonor Burgos MD PRIMARY ENT [address] [place] [address] Assigned PCP 08/16/22 08/29/22 Annalisa Mark APRN SUPERVISOR ABATTOIR [address] [place] [address] Assigned PCP 08/30/22 11/21/22 Curtis Núñez MD [address] [facility] 276 [place] [address] Assigned Pulmonology Provider 09/13/22 Leonor Burgos MD PRIMARY ENT [address] [facility] [address] [place] [address] Assigned PCP 11/22/22 11/28/22 Annalisa Mark APRN SUPERVISOR ABATTOIR Assigned PCP 11/29/22 01/23/23 iLsa Wright PA-C [address] [place] [address] Assigned PCP 01/24/23 documented as of this encounter
--- OUTSIDE RECORDS SUMMARY | 2024-03-15 08:49 | XMS_ITS | Encounter Summary ---
Author Organization [place] Address [facility] [place] [address] Care Team Providers Care Postal Sorting Officer Name Role Phone Deedee, Annalisa Peacock APRN, CNP Primary Care Provi miguel Unavailable Leonor Burgos MD Unavailable + Deedee, Annalisa Peacock APRN KNOT BORER Unavailable Un available Deedee, Annalisa Peacock APRN, CNP Unavailable Un available Mukul Rivas PA-C Unavailable + [phone] Deedee, Annalisa Peacock APRN, CNP Unavailable Un available Mukul Rivas PA-C Unavailable + [phone] Deedee, Annalisa Peacock APRN, CNP Unavailable Un available Jacob Carmona MD Unavailable + [phone] Leonor Burgos MD Unavailable + Deedee, Annalisa Peacock APRN, CNP Unavailable Un available Jacob Carmona MD Primary Care Provider Leonor Burgos MD Unavailable + Clinic [facility] Primary Care Provider Deedee, Annalisa Peacock APRN, CNP Unavailable Un available DincerCurtis MD Unavailable [phone] Leonor Burgos MD Unavailable + Annalisa Mark APRN KNOT BORER Unavailable Un available Lisa Wright PA-C Primary Care Provider Lisa Wright PA-C Unavailable [phone] Encounter Details Date Type Department Care Team (Late st Contact Info) Description 07/08/2016 MyC Medical Advice [facility] [address] [place] [phone] Benito Monson RN Social History Tobacco Use Types Packs/Day Years [...] Description 03/17/2024 9:00 AM CDT Virtual Visit [facility] [address] [place] [phone] Chanel Asher PA-C [phone] [place] [address] 03/17/2024 9:45 AM CDT Office Visit [address] [place] [phone] Jacob Carmona MD [address] [place] [address] documented as of this encounter Visit Diagnoses Not on filedocumented in this encounter Additional Health Concerns Infection Onset Date Last Indicated Resolved Time Rule Out COVID-19 01/14/2021 01/14/2021 01/15/2021 3:32 PM CDT Rule Out C-difficile 02/26/2022 02/26/2022 022 1:52 PM CDT C-difficile 02/26/2022 02/26/2022 03/28/2022 11:4 1 PM CDT Rule Out C-difficile 09/10/2022 09/10/2022 023 5:27 PM ANAESTHESIOLOGIST C-difficile 09/10/2022 09/10/2022 10/10/2022 11:3 9 PM CDT Assessment Noted Time PHQ-9 Depression Total Score: 5 04/22/20 16 7:19 AM CDT documented as of this encounter Care Teams Postal Sorting Officer Relationship Specialty Start Date End Date Annalisa Mark APRN KNOT BORER PCP - General Nurse Practitioner 03/22/15 06/29/22 Leonor Burgos MD PRIMARY ENT [address] [place] [address] PCP - Assigned PCP 12/13/17 06/05/18 Annalisa Mark APRN KNOT BORER PCP - Assigned PCP 06/06/18 09/28/18 Jacob Carmona MD [address] [place] [address] PCP - General 06/30/22 08/28/22 [facility] [address] [place] [address] PCP - General 08/29/22 01/18/23 Lisa Wright PA-C [address] [place] [address] PCP - General Family Medicine 01/19/23 Annalisa Mark APRN KNOT BORER Assigned PCP 06/06/18 07/02/19 Mukul Rivas PA-C [address], [place] [phone] Assigned PCP 07/03/19 11/19/19 Annalisa Mark APRN KNOT BORER Assigned PCP 11/20/19 12/10/19 Mukul Rivas PA-C [address] [place] [address], [place] [id number] Assigned PCP 12/11/19 01/21/20 Annalisa Mark APRN KNOT BORER Assigned PCP 01/22/20 02/21/22 Jacob Carmona MD [address] [place] [address] Assigned OBGYN Provider 05/18/20 Leonor Burgos MD PRIMARY ENT [address] [facility] [address] [place] [address] Assigned PCP 02/22/22 05/16/22 Annalisa Mark APRN KNOT BORER Assigned PCP 05/17/22 08/15/22 Leonor Burgos MD PRIMARY ENT [address] [facility] [address] [place], [place] [phone] Assigned PCP 08/16/22 08/29/22 Annalisa Mark APRN KNOT BORER [address] [place] [address] Assigned PCP 08/30/22 11/21/22 Curtis Núñez MD [address] [facility] [address] [facility] [address] [place] [address] Assigned Pulmonology Provider 09/13/22 Leonor Burgos MD PRIMARY ENT [address] [place], [place] [address] Assigned PCP 11/22/22 11/28/22 Annalisa Mark APRN KNOT BORER Assigned PCP 11/29/22 01/23/23 Lisa Wright PA-C [address] [place] [address] Assigned PCP 01/24/23 documented as of this encounter
--- OUTSIDE RECORDS SUMMARY | 2024-03-15 08:50 | XMS_ITS | Encounter Summary ---
Author Organization [place] Address [facility] [place] [address] Care Team Providers Care Soldering Machine Operator Automatic Name Role Phone Deedee, Annalisa Peacock APRN, CNP Primary Care Provi miguel Unavailable Leonor Burgos MD Unavailable + Deedee, Annalisa Peacock APRN AMERICANIZATION TEACHER Unavailable Un available Deedee, Annalisa Peacock APRN, CNP Unavailable Un available Mukul Rivas PA-C Unavailable + [phone] Deedee, Annalisa Peacock APRN, CNP Unavailable Un available Mukul Rivas PA-C Unavailable + [phone] Deedee, Annalisa Peacock APRN, CNP Unavailable Un available Jacob Carmona MD Unavailable + [phone] Leonor Burgos MD Unavailable + Deedee, Annalisa Peacock APRN, CNP Unavailable Un available Jacob Carmona MD Primary Care Provider Leonor Burgos MD Unavailable + Clinic [facility] Primary Care Provider Deedee, Annalisa Peacock APRN, CNP Unavailable Un available DincerCurtis MD Unavailable Leonor Burgos MD Unavailable + Deedee Annalisaarnulfo Peacock APRN AMERICANIZATION TEACHER Unavailable Un available Lisa Wright PA-C Primary Care Provider [phone] Lisa Wright PA-C Unavailable [phone] Encounter Details Date Type Department Care Team (Late st Contact Info) Description 05/19/2016 [facility] Medical Advice [address] [phone] Pete Martin MD NO INFO AVAILABLE 02/17/23 [...] encounter Miscellaneous Notes * Telephone Encounter - Pete Martin - 05/20/2016 6:29 PM CDT [facility] * Telephone Encounter - Debbie Verdugo RN - 05/19/2016 9:49 AM CDT - Please see message's below about the Zika virus and advise. Thanks. Andreas Verdugo RN * Telephone Encounter - Debbie Verdugo RN - 05/19/2016 8:35 AM CDT . documented in this encounter Plan of Treatment Upcoming Encounters Date Type Department Care Team (Late st Contact Info) Description 03/17/2024 9:00 AM CDT Virtual Visit [facility] [address] [place] [phone] Chanel Asher PA-C [address] [place], [place] [phone] 03/17/2024 9:45 AM CDT Office Visit [facility] [address] [facility] [address] [place] [phone] Jacob Carmona MD [address] [place], [place] [phone] documented as of this encounter Visit Diagnoses Not on filedocumented in this encounter Additional Health Concerns Infection Onset Date Last Indicated Resolved Time Rule Out COVID-19 01/14/2021 01/14/2021 01/15/2021 3:32 PM CDT Rule Out C-difficile 02/26/2022 02/26/2022 022 1:52 PM CDT C-difficile 02/26/2022 02/26/2022 03/28/2022 11:4 1 PM CDT Rule Out C-difficile 09/10/2022 09/10/2022 023 5:27 PM ADJUNCT FACULTY INSTRUCTOR C-difficile 09/10/2022 09/10/2022 10/10/2022 11:3 9 PM CDT Assessment Noted Time PHQ-9 Depression Total Score: 5 04/22/20 16 7:19 AM CDT documented as of this encounter Care Teams Soldering Machine Operator Automatic Relationship Specialty Start Date End Date Annalisa Mark APRN AMERICANIZATION TEACHER PCP - General Nurse Practitioner 03/22/15 06/29/22 Leonor Burgos MD PRIMARY ENT [address] [place] [address] PCP - Assigned PCP 12/13/17 06/05/18 Annalisa Mark APRN AMERICANIZATION TEACHER PCP - Assigned PCP 06/06/18 09/28/18 Jacob Carmona MD [address] [place] [address] PCP - General 06/30/22 08/28/22 [facility] [address] [place] [address] PCP - General 08/29/22 01/18/23 Lisa Wright PA-C [address] [place] [address] PCP - General Family Medicine 01/19/23 Annalisa Mark APRN AMERICANIZATION TEACHER Assigned PCP 06/06/18 07/02/19 Mukul Rivas PA-C [address] [place] [address] Assigned PCP 07/03/19 11/19/19 Annalisa Mark APRN AMERICANIZATION TEACHER Assigned PCP 11/20/19 12/10/19 Mukul Rivas PA-C [address] [place] [address] Assigned PCP 12/11/19 01/21/20 Annalisa Mark APRN AMERICANIZATION TEACHER Assigned PCP 01/22/20 02/21/22 Jacob Carmona MD [address] [place] [address] Assigned OBGYN Provider 05/18/20 Leonor Burgos MD PRIMARY ENT [address] [place] [address] Assigned PCP 02/22/22 05/16/22 Annalisa Mark APRN AMERICANIZATION TEACHER Assigned PCP 05/17/22 08/15/22 Leonor Burgos MD PRIMARY ENT [address] [place] [address] Assigned PCP 08/16/22 08/29/22 Annalisa Mark APRN AMERICANIZATION TEACHER [address] [place] [address] Assigned PCP 08/30/22 11/21/22 Curtis Núñez MD [address] [place] [address] 276 [place] [address] Assigned Pulmonology Provider 09/13/22 Leonor Burgos MD PRIMARY ENT [address] [facility] [address] [place] [address] Assigned PCP 11/22/22 11/28/22 Annalisa Mark APRN AMERICANIZATION TEACHER Assigned PCP 11/29/22 01/23/23 Lisa Wright PA-C [address] [place] [phone] Assigned PCP 01/24/23 documented as of this encounter
--- OUTSIDE RECORDS SUMMARY | 2024-03-15 08:50 | XMS_ITS | Encounter Summary ---
Author Organization [place] Address [address] [place] [address]. [place] [address] Care Team Providers Care Housing Inspector Name Role Phone Adal Kincaid MD Primary Care Provid er Jose Dumont MD Primary Care Provider [phone] Deedee, Annalisa Peacock APRN ADVERTISING LAYOUT WORKER Primary Care Provi miguel Unavailable Leonor Burgos MD Unavailable + Deedee, Annalisa Peacock APRN ADVERTISING LAYOUT WORKER Unavailable Un available Deedee, Annalisa Peacock APRN ADVERTISING LAYOUT WORKER Unavailable Un available Mukul Rivas PA-C Unavailable [phone] Deedee, Annalisa Peacock APRN ADVERTISING LAYOUT WORKER Unavailable Un available Mukul Rivas PA-C Unavailable [phone] Deedee, Annalisa Peacock APRN ADVERTISING LAYOUT WORKER Unavailable Un available SabJacob sylvester MD Unavailable + [phone] Leonor Burgos MD Unavailable + Deedee, Annalisa Peacock APRN ADVERTISING LAYOUT WORKER Unavailable Un available Jacob Carmona MD Primary Care Provider Leonor Burgos MD Unavailable + [facility] [place] Primary Care Provider Annalisa Mark APRN ADVERTISING LAYOUT WORKER Unavailable Un available Curtis Núñez MD Unavailable [phone] Leonor Burgos MD Unavailable + Annalisa Mark APRN ADVERTISING LAYOUT WORKER Unavailable Un available Lisa Wright PA-C Primary Care Provider [phone] Lisa Wright PA-C Unavailable [phone] Reason for Visit * Reason Onset Date Comments Refill Request 09/22/2005 Encounter Details Date Type Department Care Team (Late st Contact Info) Description 09/22/[address] [place] [phone] Adal Kincaid MD [address] [place], [place] [phone] Refill Request Social History Tobacco Use Types Packs/Day Years Used Date Smoking Tobacco: Never Alcohol Use Standard Drinks/Week Comments No 0 (1 standard drink = 0.6 oz pur e alcohol) Sex and Gender Information Value Date Recorded Sex Assigned at Female 03/25/2021 2:01 PM CDT Gender Identity Female 03/25/2021 2:01 PM CDT Sexual Orientation Straight 03/25/2021 2: 01 PM CDT documented as of this encounter Plan of Treatment Upcoming Encounters Date Type Department Care Team (Late st Contact Info) Description 03/17/2024 9:00 AM CDT Virtual Visit [facility] [address] [place] [phone] Chanel Asher PA-C [phone] [place] [phone] 03/17/2024 9:45 AM CDT Office Visit [facility] [address] [place] [address] [address] [place] [address] Jacob Carmona MD [address] [place] [address] documented as of this encounter Visit Diagnoses Diagnosis General counseling for initiation of other contraceptive measures documented in this encounter Additional Health Concerns Infection Onset Date Last Indicated Resolved Time Rule Out COVID-19 01/14/2021 01/14/2021 01/15/2021 3:32 PM CDT Rule Out C-difficile 02/26/2022 02/26/2022 022 1:52 PM CDT C-difficile 02/26/2022 02/26/2022 03/28/2022 11:4 1 PM CDT Rule Out C-difficile 09/10/2022 09/10/2022 023 5:27 PM MECHANISM INSPECTOR C-difficile 09/10/2022 09/10/2022 10/10/2022 11:3 9 PM CDT documented as of this encounter Care Teams Housing Inspector Relationship Specialty Start Date End Date Adal Kincaid MD [address] [place] [address] PCP - General 05/05/03 01/28/12 Jose Dumont MD [address] [place] [address] PCP - General Family Practice 01/29/12 03/20/15 Annalisa Mark APRN ADVERTISING LAYOUT WORKER [address] [place] [address] PCP - General Nurse Practitioner 03/22/15 06/29/22 Leonor Burgos MD PRIMARY ENT [address] [place] [address] PCP - Assigned PCP 12/13/17 06/05/18 Annalisa Mark APRN ADVERTISING LAYOUT WORKER PCP - Assigned PCP 06/06/18 09/28/18 Jacob Carmona MD [address] [place] [address] PCP - General 06/30/22 08/28/22 [facility] [address] [place] [address] PCP - General 08/29/22 01/18/23 Lisa Wright PA-C [address] [place] [phone] PCP - General Family Medicine 01/19/23 Annalisa Mark APRN ADVERTISING LAYOUT WORKER Assigned PCP 06/06/18 07/02/19 Mukul Rivas PA-C [address] [place] [address] Assigned PCP 07/03/19 11/19/19 Annalisa Mark APRN ADVERTISING LAYOUT WORKER Assigned PCP 11/20/19 12/10/19 Mukul Rivas PA-C [address] [place] [address] Assigned PCP 12/11/19 01/21/20 Annalisa Mark APRN ADVERTISING LAYOUT WORKER Assigned PCP 01/22/20 02/21/22 Jacob Carmona MD [address] [place] [address] Assigned OBGYN Provider 05/18/20 Leonor Burgos MD [facility]IMARY [facility] [address] [facility] [address] [place] [address] Assigned PCP 02/22/22 05/16/22 Annalisa Mark APRN ADVERTISING LAYOUT WORKER Assigned PCP 05/17/22 08/15/22 Leonor Burgos MD PRIMARY ENT [address] [facility] [address] [place] [address] Assigned PCP 08/16/22 08/29/22 Annalisa Mark APRN ADVERTISING LAYOUT WORKER [address] [facility] [place] [address] Assigned PCP 08/30/22 11/21/22 Curtis Núñez MD [address] [place] [address] 276 [place] [address] Assigned Pulmonology Provider 09/13/22 Leonor Burgos MD PRIMARY ENT [address] [facility] [address] [place] [address] Assigned PCP 11/22/22 11/28/22 Annalisa Mark APRN ADVERTISING LAYOUT WORKER Assigned PCP 11/29/22 01/23/23 Lisa Wright PA-C [address] [place] [address] Assigned PCP 01/24/23 documented as of this encounter
--- OUTSIDE RECORDS SUMMARY | 2024-03-15 08:50 | XMS_ITS | Encounter Summary ---
Author Organization [place] Address [facility] [place] [address] Care Team Providers Care Airways Control Specialist Name Role Phone Deedee, Annalisa Peacock APRN, CNP Primary Care Provi miguel Unavailable Leonor Burgos MD Unavailable + Deedee, Annalisa Peacock APRN DOOR LINER Unavailable Un available Deedee, Annalisa Peacock APRN, CNP Unavailable Un available Mukul Rivas PA-C Unavailable + [phone] Deedee, Annalisa Peacock APRN, CNP Unavailable Un available Mukul Rivas PA-C Unavailable + [phone] Deedee, Annalisa Peacock APRN, CNP Unavailable Un available Jacob Carmona MD Unavailable + [phone] Leonor Burgos MD Unavailable + Deedee, Annalisa Peacock APRN, CNP Unavailable Un available Jacob Carmona MD Primary Care Provider Leonor Burgos MD Unavailable + [facility] Primary Care Provider Deedee, Annalisa Peacock APRN, CNP Unavailable Un available DincerCurtis MD Unavailable Leonor Burgos MD Unavailable + Annalisa Mark APRN DOOR LINER Unavailable Un available Lisa Wright PA-C Primary Care Provider [phone] Lisa Wright PA-C Unavailable [phone] Encounter Details Date Type Department Care Team (Late st Contact Info) Description 06/16/2016 MyC Medical Advice [facility] [id number] [place] [address] [phone] Annalisa Mark APRN CNP Social History Tobacco [...] Description 03/17/2024 9:00 AM CDT Virtual Visit [address] [phone] Chanel Asher PA-C [address] [place] [address] [phone] 03/17/2024 9:45 AM CDT Office Visit [facility] [address] [facility] [address] [place] [phone] Jacob Carmoan MD [address] [place], [place] [phone] documented as of this encounter Visit Diagnoses Not on filedocumented in this encounter Additional Health Concerns Infection Onset Date Last Indicated Resolved Time Rule Out COVID-19 01/14/2021 01/14/2021 01/15/2021 3:32 PM CDT Rule Out C-difficile 02/26/2022 02/26/2022 022 1:52 PM CDT C-difficile 02/26/2022 02/26/2022 03/28/2022 11:4 1 PM CDT Rule Out C-difficile 09/10/2022 09/10/2022 023 5:27 PM OIL DIPPER C-difficile 09/10/2022 09/10/2022 10/10/2022 11:3 9 PM CDT Assessment Noted Time PHQ-9 Depression Total Score: 5 04/22/20 16 7:19 AM CDT documented as of this encounter Care Teams Airways Control Specialist Relationship Specialty Start Date End Date Annalisa Mark APRN DOOR LINER PCP - General Nurse Practitioner 03/22/15 06/29/22 Leonor Burgos MD PRIMARY ENT [address] [place] [address] PCP - Assigned PCP 12/13/17 06/05/18 Annalisa Mark APRN DOOR LINER PCP - Assigned PCP 06/06/18 09/28/18 Jacob Carmona MD [address] [place] [address] PCP - General 06/30/22 08/28/22 [facility] [address] [place] [address] PCP - General 08/29/22 01/18/23 Lisa Wright PA-C [address] [place] [phone] PCP - General Family Medicine 01/19/23 Annalisa Mark, SYRUP BLENDER DOOR LINER Assigned PCP 06/06/18 07/02/19 Mukul Rivas PA-C [address], [place] [phone] Assigned PCP 07/03/19 11/19/19 Annalisa Mark APRN DOOR LINER Assigned PCP 11/20/19 12/10/19 Mukul Rivas PA-C [address] [place] [address], [place] [phone] Assigned PCP 12/11/19 01/21/20 Annalisa Mark APRN DOOR LINER Assigned PCP 01/22/20 02/21/22 Jacob Carmona MD [address] [place] [address] Assigned OBGYN Provider 05/18/20 Leonor Burgos MD PRIMARY ENT [id number] [address] [facility] [address] [place] [address] Assigned PCP 02/22/22 05/16/22 Annalisa Mark APRN DOOR LINER Assigned PCP 05/17/22 08/15/22 Leonor Burgos MD PRIMARY ENT [address] [place] [address] Assigned PCP 08/16/22 08/29/22 Annalisa Mark APRN DOOR LINER [address] [facility] [address] Assigned PCP 08/30/22 11/21/22 Curtis Núñez MD [address] [facility] [address] [place] [address] Assigned Pulmonology Provider 09/13/22 Leonor Burgos MD PRIMARY ENT [address] [address] [facility] [address] [place], [place] [address] Assigned PCP 11/22/22 11/28/22 Annalisa Mark APRN DOOR LINER Assigned PCP 11/29/22 01/23/23 Lisa Wright PA-C [address] [place] [address] Assigned PCP 01/24/23 documented as of this encounter
--- OUTSIDE RECORDS SUMMARY | 2024-03-15 08:50 | XMS_ITS | Encounter Summary ---
Author Organization [place] Address [facility] [place] [address] Care Team Providers Care Chief Resource Officer Name Role Phone Deedee, Annalisa Peacock APRN, CNP Primary Care Provi miguel Unavailable Leonor Burgos MD Unavailable + Deedee, Annalisa Peacock APRN CASTABLES WORKER Unavailable Un available Deedee, Annalisa Peacock APRN, CNP Unavailable Un available Mukul Rivas PA-C Unavailable + [phone] Deedee, Annalisa Peacock APRN, CNP Unavailable Un available Mukul Rivas PA-C Unavailable + [phone] Deedee, Annalisa Peacock APRN, CNP Unavailable Un available Jacob Carmona MD Unavailable + [phone] Leonor Burgos MD Unavailable + Deedee, Annalisa Peacock APRN, CNP Unavailable Un available Jacob Carmona MD Primary Care Provider Leonor Burgos MD Unavailable + [facility] Primary Care Provider Deedee, Annalisa Peacock APRN, CNP Unavailable Un available DincerCurtis MD Unavailable [phone] Lenoor Burgos MD Unavailable + Annalisa Mark APRN CASTABLES WORKER Unavailable Un available Lisa Wright PA-C Primary Care Provider Lisa Wright PA-C Unavailable [phone] Encounter Details Date Type Department Care Team (Late st Contact Info) Description 05/19/2016 MyC Medical Advice [facility] [address] [phone] Pete Martin MD NO INFO AVAILABLE 02/17/23 [...] AM CDT Virtual Visit [facility] [address] [place] [phone] Chanel Asher PA-C [id number] [place] [address] [phone] 03/17/2024 9:45 AM CDT Office Visit [facility] [address] [facility] [address] [place] [address] Jacob Carmona MD [address] [place], [place] [address] documented as of this encounter Visit Diagnoses Not on filedocumented in this encounter Additional Health Concerns Infection Onset Date Last Indicated Resolved Time Rule Out COVID-19 01/14/2021 01/14/2021 01/15/2021 3:32 PM CDT Rule Out C-difficile 02/26/2022 02/26/2022 022 1:52 PM CDT C-difficile 02/26/2022 02/26/2022 03/28/2022 11:4 1 PM CDT Rule Out C-difficile 09/10/2022 09/10/2022 023 5:27 PM ROENTGENOLOGY TEACHER C-difficile 09/10/2022 09/10/2022 10/10/2022 11:3 9 PM CDT Assessment Noted Time PHQ-9 Depression Total Score: 5 04/22/20 16 7:19 AM CDT documented as of this encounter Care Teams Chief Resource Officer Relationship Specialty Start Date End Date Annalisa Mark APRN CASTABLES WORKER PCP - General Nurse Practitioner 03/22/15 06/29/22 Leonor Burgos MD PRIMARY ENT [address] [place] [address] PCP - Assigned PCP 12/13/17 06/05/18 Annalisa Mark APRN CASTABLES WORKER PCP - Assigned PCP 06/06/18 09/28/18 Jacob Carmona MD [address] [place] [address] PCP - General 06/30/22 08/28/22 [facility] [address] [place] [address] PCP - General 08/29/22 01/18/23 Lisa Wright PA-C [address] [place] [phone] PCP - General Family Medicine 01/19/23 Annalisa Mark APRN CASTABLES WORKER Assigned PCP 06/06/18 07/02/19 Mukul Rivas PA-C [address] [place] [address], [place] [address] Assigned PCP 07/03/19 11/19/19 Annalisa Mark APRN CASTABLES WORKER Assigned PCP 11/20/19 12/10/19 Mukul Rivas PA-C [address] [place] [address], [place] [id number] Assigned PCP 12/11/19 01/21/20 Annalisa Mark APRN CASTABLES WORKER Assigned PCP 01/22/20 02/21/22 Jacob Carmona MD [address] [facility] [place] [address] Assigned OBGYN Provider 05/18/20 Leonor Burgos MD PRIMARY ENT [address] [place], [place] [address] Assigned PCP 02/22/22 05/16/22 Annalisa Mark APRN CASTABLES WORKER Assigned PCP 05/17/22 08/15/22 Leonor Burgos MD PRIMARY ENT [address] [place] [address] Assigned PCP 08/16/22 08/29/22 Annalisa Mark APRN CASTABLES WORKER [address] [facility] [place] [address] Assigned PCP 08/30/22 11/21/22 Curtis Núñez MD [address] [facility] [address] [place] [address] Assigned Pulmonology Provider 09/13/22 Leonor Burgos MD PRIMARY ENT [address] [place], [place] [address] Assigned PCP 11/22/22 11/28/22 Annalisa Mark APRN CASTABLES WORKER Assigned PCP 11/29/22 01/23/23 Lias Wright PA-C [address] [place] [address] Assigned PCP 01/24/23 documented as of this encounter
--- OUTSIDE RECORDS SUMMARY | 2024-03-15 08:50 | XMS_ITS | Clinical Summary ---
Author Organization [facility] Address [place], [place] [address] Care Team Providers Care Roll Inspector Name Role Phone Pcp, No Primary Care Provider Unavailabl e Allergies No known active allergies Medications Medication Sig Dispensed Refills Start Date End Date Status escitalopram oxalate (LEXAPRO) 20 mg tablet Take 1 tablet by mouth once daily. 0 08/16/2014 Active Active Problems No known active problems Social History Tobacco Use Types Packs/Day Years Used Date Smoking Tobacco: Never Smokeless Tobacco: Never Alcohol Use Standard Drinks/Week Comments Yes 0 (1 standard drink = 0.6 oz pur e alcohol) social Sex and Gender Information Value Date Recorded Sex Assigned at Not on file Gender Identity Not on file Sexual Orientation Not on file Obstetrics History Last Filed Vital Signs Vital Sign Reading Time Taken Comments Blood Pressure 106/68 08/16/2014 11:35 AM INCIDENT RESPONSE CONSULTANT Pulse 93 08/16/2014 11:35 AM INCIDENT RESPONSE CONSULTANT Temperature 36.7 ??C (98.1 ??F) 08/16/2014 11:[address] Respiratory Rate 16 08/16/2014 11:35 AM INCIDENT RESPONSE CONSULTANT Oxygen Saturation 100% 08/16/2014 11:35 AM INCIDENT RESPONSE CONSULTANT Inhaled Oxygen Concentration - - Weight 52.2 kg (115 lb) 08/16/2014 11:35 AM INCIDENT RESPONSE CONSULTANT Height - - Body Mass Index - - Plan of Treatment Health Maintenance Due Date Last Done Comments Tdap 1995 Depression screening for age 12+ 1996 HIV for age 15-65 1999 BMI (ht and wt on same day) for age 18+ 2002 Hepatitis C screening for ag e 18-79 2002 Tetanus booster 2004 Pap test for age 21-65 2005 COVID-19 vaccine series (2022-24 season) 2023 Influenza for age 9-49 03/27/2024 Pneumococcal series for age 6-64 Aged Out No longer eligible based on patient's age to complete this topic Care Teams Roll Inspector Relationship Specialty Start Date End Date Pcp, No . PCP - General 08/16/14
--- OUTSIDE RECORDS SUMMARY | 2024-03-15 08:50 | XMS_ITS | Encounter Summary ---
Author Organization [place] Address [facility] [place] [address] Care Team Providers Care Enameler Name Role Phone Deedee, Annalisa Peacock APRN, CNP Primary Care Provi miguel Unavailable Leonor Burgos MD Unavailable + Deedee, Annalisa Peacock APRN PLANNER INTERN Unavailable Un available Deedee, Annalisa Peacock APRN, CNP Unavailable Un available Mukul Rivas PA-C Unavailable + [phone] Deedee, Annalisa Peacock APRN, CNP Unavailable Un available Mukul Rivas PA-C Unavailable + [phone] Deedee, Annalisa Peacock APRN, CNP Unavailable Un available Jacob Carmona MD Unavailable + [phone] Leonor Burgos MD Unavailable + Deedee, Annalisa Peacock APRN, CNP Unavailable Un available Jacob Carmona MD Primary Care Provider Leonor Burgos MD Unavailable + [facility] Primary Care Provider Deedee, Annalisa Peacock APRN, CNP Unavailable Un available DincerCurtis MD Unavailable [phone] Leonor Burgos MD Unavailable + Annalisa Mark APRN PLANNER INTERN Unavailable Un available Lisa Wright PA-C Primary Care Provider Lisa Wright PA-C Unavailable [phone] Encounter Details Date Type Department Care Team (Late st Contact Info) Description 06/11/2016 MyC Medical Advice [facility] [address] [phone] Pete Martin MD NO INFO AVAILABLE 02/17/23 [...] Description 03/17/2024 9:00 AM CDT Virtual Visit [facility] [address] [place] [phone] Chanel Asher PA-C [id number] [place] [address] [phone] 03/17/2024 9:45 AM CDT Office Visit [facility] [address] [facility] [address] [place] [address] Jacob Carmona MD [address] [place], [place] [address] documented as of this encounter Visit Diagnoses Not on filedocumented in this encounter Additional Health Concerns Infection Onset Date Last Indicated Resolved Time Rule Out COVID-19 01/14/2021 01/14/2021 01/15/2021 3:32 PM CDT Rule Out C-difficile 02/26/2022 02/26/2022 022 1:52 PM CDT C-difficile 02/26/2022 02/26/2022 03/28/2022 11:4 1 PM CDT Rule Out C-difficile 09/10/2022 09/10/2022 023 5:27 PM SMELTING ENGINEER C-difficile 09/10/2022 09/10/2022 10/10/2022 11:3 9 PM CDT Assessment Noted Time PHQ-9 Depression Total Score: 5 04/22/20 16 7:19 AM CDT documented as of this encounter Care Teams Enameler Relationship Specialty Start Date End Date Annalisa Mark APRN PLANNER INTERN PCP - General Nurse Practitioner 03/22/15 06/29/22 Leonor Burgos MD PRIMARY ENT [address] [place] [address] PCP - Assigned PCP 12/13/17 06/05/18 Annalisa Mark APRN PLANNER INTERN PCP - Assigned PCP 06/06/18 09/28/18 Jacob Carmona MD [address] [place] [address] PCP - General 06/30/22 08/28/22 [facility] [address] [place] [address] PCP - General 08/29/22 01/18/23 Lisa Wright PA-C [address] [place] [phone] PCP - General Family Medicine 01/19/23 Annalisa Mark APRN PLANNER INTERN Assigned PCP 06/06/18 07/02/19 Mukul Rivas PA-C [address] [place] [address], [place] [address] Assigned PCP 07/03/19 11/19/19 Annalisa Mark APRN PLANNER INTERN Assigned PCP 11/20/19 12/10/19 Mukul Rivas PA-C [address] [place] [address], [place] [phone] Assigned PCP 12/11/19 01/21/20 Annalisa Mark APRN PLANNER INTERN Assigned PCP 01/22/20 02/21/22 Jacob Carmona MD [address] [place] [address] Assigned OBGYN Provider 05/18/20 Leonor Burgos MD PRIMARY ENT [address] [place], [place] [address] Assigned PCP 02/22/22 05/16/22 Annalisa Mark APRN PLANNER INTERN Assigned PCP 05/17/22 08/15/22 Leonor Burgos MD PRIMARY ENT [address] [place] [address] Assigned PCP 08/16/22 08/29/22 Annalisa Mark APRN PLANNER INTERN [address] [place] [address] Assigned PCP 08/30/22 11/21/22 Curtis Núñez MD [address] [place] [address] [facility] [address] [place] [address] Assigned Pulmonology Provider 09/13/22 Leonor Burgos MD PRIMARY ENT [address] [place], [place] [address] Assigned PCP 11/22/22 11/28/22 Annalisa Mark APRN PLANNER INTERN Assigned PCP 11/29/22 01/23/23 Lisa Wright PA-C [address] [place] [phone] Assigned PCP 01/24/23 documented as of this encounter
== END 2024-03-14 16:33 | disposition home or self-care (01) ==
LOC: NFLDREF 03-15 08:41
PROVIDERS: Visit Provider Physician Assistant
DX: R30.0 Dysuria (principal)
CPT/HCPCS: 87086

== ENCOUNTER 2024-09-13 12:13 | Outpatient (CLI) | payer OTHER, SELFPAY | END 2024-09-13 12:14 | disposition home or self-care (01) | LOC: NFLDREF 09-17 03:17 | PROVIDERS: Visit Provider Physician Assistant | DX: N39.0 Urinary tract infection, site not specified (principal); N89.8 Other specified noninflammatory disorders of vagina; R39.15 Urgency of urination | CPT/HCPCS: 87086 ==

== ENCOUNTER 2024-09-19 02:26 | Emergency (ER) | payer OTHER, SELFPAY ==
--- NOTE | 2024-09-19 02:28 | ED_ITS ---
HPI - General Adult General Chief complaint: Urogenital Problems, Female Stated complaint: lower back pain, possible uti Time Seen by Provider: 09/19/24 02:28 History of Present Illness HPI narrative: 39-year-old female who presents today with left low back pain and left neck pain. She was recently seen in urgent care with urinary symptoms, urinalysis initially was fairly unremarkable, urine culture was thought to represent infection and patient was started on Macrobid a couple days after initial visit. She knows almost done with this and is having some left low back pain as well as some pain in left neck with what she describes a lump in the neck. This been going on for couple of days. Pain in low back is worse with movement, denies current urinary symptoms, constipation, diarrhea, nausea, vomiting, or fever. She says she noted the pain in the left side of the neck for couple of days. Related Data Home Medications ?Medication ?Instructions ?Recorded ?Confirmed norgestimate-ethinyl estradiol 1 tab PO DAILY 06/06/22 09/19/24 0.18 mg/0.215mg/0.25mg-35 mcg(28)tablet fluoxetine 10 mg capsule (Prozac) 10 mg PO QDAY 03/14/24 09/19/24 levothyroxine 25 mcg tablet 25 mcg PO DAILY 05/17/24 09/19/24 Previous Rx's ?Medication ?Instructions ?Recorded nitrofurantoin 100 mg PO BID 5 days #10 caps 09/15/24 monohydrate/macrocrystals 100 mg capsule Allergies Allergy/AdvReac Type Severity Reaction Status Date / Time No Known Drug Allergies Allergy Verified 09/19/24 02:40 [facility] Social History Smoking Status: Never smoker Do you use any of these nicotine containing products: None Second hand tobacco smoke exposure: No How often do you have a drink containing alcohol: never How often do you have six or more drinks on one occasion: Never AUDIT-C Alcohol total score: 0 Non-prescribed substance use: denies use service: No Exam Narrative: Exam Narrative: General: Well-developed and well-nourished, no acute distress Head: Atraumatic and normocephalic Eyes: Pupils are equal reactive, extraocular motions intact, conjunctiva clear ENT: External nose and ears are normal, posterior pharynx without erythema or exudate Neck: No midline cervical tenderness, full spontaneous range of motion the neck, trachea midline, enlarged lymph node of the posterior chain on the left just adjacent to the paraspinous musculature. Heart: Regular rate and rhythm no murmurs or thrills Lungs: Clear to auscultation bilaterally without wheezes or crackles Abdomen: Soft, nontender, nondistended with active bowel sounds Musculoskeletal: No tenderness, deformity, or edema. No CVA tenderness, left low lumbar tenderness. Neurologic: Awake, alert, and oriented x3, no gross focal neurologic deficits, cranial nerves intact as tested Psych: Mood and affect are appropriate Skin: No rashes Const: Vital Signs, click to edit/add: Vital Signs - 24 hr 09/19/24 02:35 Temperature 97.0 F L Pulse Rate [Right Pulse Oximeter] 94 Respiratory Rate 16 Blood Pressure [Ri ght Upper Arm] 132/88 Pulse Oximetry 99 Oxygen Delivery Me thod Room Air Course Course ED Course: Reviewed most recent she urine culture which demonstrated [id number] CFU of E coli. Prescription for Macrobid was sent to the pharmacy on September 15. Patient presents today with left low back pain as well as left-sided neck pain. Pain in the low backs worse movement, no CVA tenderness, low lumbar tenderness. This likely represents musculoskeletal pain although cannot exclude ascending infection, no secondary systemic signs of infection noted. Urinalysis is ordered. She also has enlarged and tender lymph node of the left side of the posterior chain of the neck. This is freely mobile. Also, patient presses very hard to feel it and palpate, which may be exacerbating some of the inflammation and pain. No ear pain, head or scalp pain or injury, evidence of infection of the scalp. This seems to represent a reactive lymph node which should improve without intervention. Reevaluation(s) Time of Reevaluation #1: 02:58 Reevaluation #1: Urinalysis independently interpreted by me negative for evidence for infection. Discussed findings and plan with patient. Patient is agreeable to discharge with [id number] medications for symptom management Vital Signs Vital signs: Initial Vital Signs Temperature 97.0 F L 09/19/24 02:35 Temperature Source Temporal Artery Scan 09/19/24 02:35 Pulse Rate 94 09/19/24 02:35 Pulse Rhythm Regular 02/24/25 02:35 Pulse Strength 3+ Normal 09/19/24 02:35 Respiratory Rate 16 09/19/24 02:35 Blood Pressure 132/88 09/19/24 02:35 Blood Pressure Mean 102 09/19/24 02:35 Blood Pressure Position Sitting 09/19/24 02:35 Pulse Oximetry 99 09/19/24 02:35 Oxygen Delivery Method Room Air 09/19/24 02:35 Vital Signs Temperature 97.0 F L 09/19/24 02:35 Pulse Rate 94 09/19/24 02:35 Respiratory Rate 16 09/19/24 02:35 Blood Pressure 132/88 09/19/24 02:35 Pulse Oximetry 99 09/19/24 02:35 Oxygen Delivery Method Room Air 09/19/24 02:35 Temperature 97.0 F L 09/19/24 02:35 Pulse Rate 94 09/19/24 02:35 Respiratory Rate 16 09/19/24 02:35 Blood Pressure 132/88 09/19/24 02:35 Pulse Oximetry 99 09/19/24 02:35 Oxygen Delivery Method Room Air 09/19/24 02:35 Medical Decision Making Lab Data Labs: Lab Results 09/19/24 Range/Units 02:36 Urine Color Yellow (Yellow) Urine Appearance Clear (Clear) Urine pH 6.5 (5.0-8.5) Ur Specific [place] 1.015 (1.000-1.030) Urine Protein Negative (Negative) Urine Glucose (UA) Negative (Negative) Urine Ketones Negative (Negative) Urine Blood Negative (Negative) Urine Nitrite Negative (Negative) Urine Bilirubin Negative (Negative) Urine Urobilinogen 0.2 (0.2-1.0) Ur Leukocyte Esterase Negative (Negative) Urine RBC 0-2 (0-2) Urine WBC 0-2 (0-5) Ur Squamous Epith Cells Few (None-Few) Urine Bacteria None (None) Discharge Plan Discharge Clinical Impression: Posterior cervical lymphadenopathy, Acute left-sided low back pain Patient Disposition: Home, Self-Care Instructions: Lymphadenopathy (ED), Acute Low Back Pain (ED) Additional Instructions: Tylenol and ibuprofen for pain Warm packs or cool packs for comfort Follow-up with your primary care provider in 5-7 days Activity Level: Activity as Tolerated Discharge Diet: Regular Prescriptions: No Action fluoxetine [Prozac] 10 mg capsule 10 mg PO QDAY levothyroxine 25 mcg tablet 25 mcg PO DAILY norgestimate-ethinyl estradiol 0.18/0.215/0.25 mg-35 mcg (28) tablet 1 tab PO DAILY Patient Comments: TAKE 1 TABLET BY MOUTH EVERY DAY nitrofurantoin monohyd/m-cryst 100 mg capsule 100 mg PO BID 5 Days Qty: 10 0RF Rx Instructions: must administer with a meal/food Follow Up/Referrals: Provider,Not a Local [Primary Care Provider] - Stand Alone [facility]
[2024-09-19 02:35] VITALS: BP 132/88; PULSE 94; RESP 16; TEMP 36.1; O2SAT 99; BMI 23.0
[2024-09-19 02:43] LABS: Appearance Urine Clear (Clear); Bilirubin Urine Negative (Negative); Blood Urine Negative (Negative); Color Urine Yellow (Yellow); Glucose Urine Negative (Negative); Ketones Urine Negative (Negative); Leukocyte Esterase Urine Negative (Negative); Nitrite Urine Negative (Negative); Protein Urine Negative (Negative); Specific Gravity Urine 1.015 (1.000-1.030); Urobilinogen Urine 0.2 (0.2-1.0); pH Urine 6.5 (5.0-8.5)
[2024-09-19 02:51] LABS: RBC Urine 0-2 (0-2); Squamous Epithelial Cell Urine Few (None-Few); WBC Urine 0-2 (0-5)
--- OUTSIDE RECORDS SUMMARY | 2024-09-19 03:06 | XMS_ITS | Encounter Summary ---
Author Organization [place] Address [facility] [place] [address] Care Team Providers Care Opto Mechanical Engineer Name Role Phone Annalisa Mark APRN, CNP Primary Care Provi miguel Unavailable Mukul Rivas PA-C Unavailable [phone] DeedeeAnnalisa dean APRN, CNP Unavailable Un available Mukul Rivas PA-C Unavailable + [phone] Annalisa Mark APRN, CNP Unavailable Un available Jacob Carmona MD Unavailable [phone] Leonor Burgos MD Unavailable + Annalisa Mark APRN, CNP Unavailable Un available Jacob Carmona MD Primary Care Provider Leonor Burgos MD Unavailable + [facility] Primary Care Provider Annalisa Mark APRN, CNP Unavailable Un available Curtis Núñez MD Unavailable [phone] Leonor Burgos MD Unavailable + Deedee, Annalisa Madonna CALCINER FEEDER CHIEF DIGITAL MEDIA OFFICER Unavailable Un available KyleNormLisakendall Moore PA-C Primary Care Provider Kyle Lisa Moore PA-C Unavailable [phone] Lb Chanel Valverde PA-C Unavailable [phone] Norm Wrightkendall Moore PA-C Unavailable [phone] Reason for Visit * Reason Onset Date Comments Care 08/04/2019 Encounter Details Date Type Department Care Team (Late st Contact Info) Description 08/04/2019 MyC Medical Advice [facility] [address] [facility] [address] [place] [address] Jacob Carmona MD [address] [place] [address] Care Social History Tobacco Use [...] Assigned at Female 03/25/2021 2:01 PM CDT Legal Sex Female 3:18 AM PROFESSOR COMPUTER SCIENCE Gender Identity Female 03/25/2021 2:01 PM CDT Sexual Orientation Straight 03/25/2021 2: 01 PM CDT 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 Not on file Not on damion e documented as of this encounter Plan of Treatment Not on file documented as of this encounter Visit Diagnoses Not on filedocumented in this encounter Additional Health Concerns Infection Onset Date Last Indicated Resolved Time Rule Out COVID-19 01/14/2021 01/14/2021 01/15/2021 3:32 PM CDT Rule Out C-difficile 02/26/2022 02/26/2022 022 1:52 PM CDT C-difficile 02/26/2022 02/26/2022 03/28/2022 11:4 1 PM CDT Rule Out C-difficile 09/10/2022 09/10/2022 023 5:27 PM PROFESSOR COMPUTER SCIENCE C-difficile 09/10/2022 09/10/2022 10/10/2022 11:3 9 PM CDT Assessment Noted Time PHQ-9 Depression Total Score: 3 12/08/19 19 7:05 AM CDT documented as of this encounter Care Teams Opto Mechanical Engineer Relationship Specialty Start Date End Date Annalisa Mark APRN CHIEF DIGITAL MEDIA OFFICER PCP - General Nurse Practitioner 03/22/15 06/29/22 Jacob Carmona MD [address] [place] [address] PCP - General 06/30/22 08/28/22 [facility] [address] [place] [address] PCP - General 08/29/22 01/18/23 Lisa Wright PA-C [address] [place] [address] PCP - General Family Medicine 01/19/23 Mukul Rivas PA-C [address] [place] [id number] Assigned PCP 07/03/19 11/19/19 Annalisa Mark APRN CHIEF DIGITAL MEDIA OFFICER Assigned PCP 11/20/19 12/10/19 Mukul Rivas PA-C [address] [place] [address] Assigned PCP 12/11/19 01/21/20 Annalisa Mark APRN CHIEF DIGITAL MEDIA OFFICER Assigned PCP 01/22/20 02/21/22 Jacob Carmona MD [address] [place] [address] Assigned OBGYN Provider 05/18/20 Leonor Burgos MD AR[place] [address] [address] Assigned PCP 02/22/22 05/16/22 Annalisa Mark APRN CHIEF DIGITAL MEDIA OFFICER Assigned PCP 05/17/22 08/15/22 Leonor Burgos MD ARISE [address] [place] [address] Assigned PCP 08/16/22 08/29/22 Annalisa Mark APRN CHIEF DIGITAL MEDIA OFFICER [address] [place] [address] Assigned PCP 08/30/22 11/21/22 Curtis Núñez MD [address] [facility] 276 [place] [address] Assigned Pulmonology Provider 09/13/22 05/17/24 Leonor Burgos MD AR[place] [address] [facility] 207 [place] [address] Assigned PCP 11/22/22 11/28/22 Annalisa Mark APRN CHIEF DIGITAL MEDIA OFFICER Assigned PCP 11/29/22 01/23/23 Lisa Wright PA-C [address] [place] [address] Assigned PCP 01/24/23 04/17/24 Chanel Asher PA-C [address] [facility] 200 [place] [address] Assigned PCP 04/18/24 06/17/24 Lisa Wright PA-C [address] [place] [address] Assigned PCP 06/18/24 documented as of this encounter
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
--- OUTSIDE RECORDS SUMMARY | 2024-09-19 03:06 | XMS_ITS | Encounter Summary ---
Author Organization [place] Address [address] [place] [address]. [place] [address] Care Team Providers Care Supervisor Screen Making Name Role Phone Annalisa Mark APRN, CNP Primary Care Provi miguel Unavailable Annalisa Mark APRN, CNP Unavailable Un available Jacob Carmona MD Unavailable Leonor Burgos MD Unavailable + Annalisa Mark APRN, CNP Unavailable Un available SabJacob sylvester MD Primary Care Provider Leonor Burgos MD Unavailable + [facility] Primary Care Provider Annalisa Mark APRN, CNP Unavailable Un available Curtis Núñez MD Unavailable Leonor Burgos MD Unavailable + Annalisa Mark APRN, CNP Unavailable Un available Lisa Wright PA-C Primary Care Provider Lisa Wright PA-C Unavailable [phone] Chanel Asher PA-C Unavailable Lisa Wright PA-C Unavailable [phone] Encounter Details Date Type Department Care Team (Late st Contact Info) Description 04/07/2021 MyC Medical Advice [facility] [address] [facility] [address] [place] [address] Jacob Carmona MD [address] [place] [address] Social History Tobacco Use Types [...] 02/15/2019 Lack of Transportation (Non-Medical) No 02/15/2019 [place] Depression Scale Answer Date Recorded [place] Depression Score 2 09/21/2019 Last EPDS Self Harm Result Not on file 09/21 Education Answer Date Recorded What is the highest level of school you have completed or the highest degree you have received? 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 Not on file Not on file Not on damion e COVID-19 Exposure Response Date Recorded In the [...] Out C-difficile 09/10/2022 09/10/2022 023 5:27 PM CASTING CARRIER C-difficile 09/10/2022 09/10/2022 10/10/2022 11:3 9 PM CDT Assessment Noted Time PHQ-9 Depression Total Score: 2 03/25/20 21 2:42 PM CDT documented as of this encounter Care Teams Supervisor Screen Making Relationship Specialty Start Date End Date Annalisa Mark APRN SEWING MACHINE BOBBIN WINDER PCP - General Nurse Practitioner 03/22/15 06/29/22 Jacob Carmona MD [address] [place] [address] PCP - General 06/30/22 08/28/22 [facility] [address] [place] [address] PCP - General 08/29/22 01/18/23 Lisa Wright PA-C [address] [place] [phone] PCP - General Family Medicine 01/19/23 Annalisa Mark APRN SEWING MACHINE BOBBIN WINDER Assigned PCP 01/22/20 02/21/22 Jacob Carmona MD [address] [place] [address] Assigned OBGYN Provider 05/18/20 Leonor Burgos MD ARISE [address] [place] [address] Assigned PCP 02/22/22 05/16/22 Annalisa Mark APRN SEWING MACHINE BOBBIN WINDER Assigned PCP 05/17/22 08/15/22 Leonor Burgos MD ARISE [address] 207 [place] [address] Assigned PCP 08/16/22 08/29/22 Annalisa Mark APRN SEWING MACHINE BOBBIN WINDER [address] [place] [address] Assigned PCP 08/30/22 11/21/22 Curtis Núñez MD 420 [facility] 276 [place] [address] Assigned Pulmonology Provider 09/13/22 05/17/24 Leonor Burgos MD ARISE [address] [place] [address] Assigned PCP 11/22/22 11/28/22 Annalisa Mark APRN SEWING MACHINE BOBBIN WINDER Assigned PCP 11/29/22 01/23/23 Lisa Wright PA-C [address] [place] [address] Assigned PCP 01/24/23 04/17/24 Chanel Asher PA-C [address] [facility] 200 [place] [address] Assigned PCP 04/18/24 06/17/24 Lisa Wright PA-C [address] [place] [address] Assigned PCP 06/18/24 documented as of this encounter
--- OUTSIDE RECORDS SUMMARY | 2024-09-19 03:06 | XMS_ITS | Encounter Summary ---
Author Organization [place] Address [facility] [place] [address] Care Team Providers Care Tracer Lathe Set Up Operator Name Role Phone Annalisa Mark APRN, CNP Primary Care Provi miguel Unavailable Mukul Rivas PA-C Unavailable [phone] DeedeeAnnalisa dean APRN, CNP Unavailable Un available Mukul Rivas PA-C Unavailable + [phone] Annalisa Mark APRN, CNP Unavailable Un available Jacob Carmona MD Unavailable [phone] Leonor Burgos MD Unavailable + Annalisa Mark APRN, CNP Unavailable Un available Jacob Carmona MD Primary Care Provider Leonor Burgos MD Unavailable + [facility] Primary Care Provider Annalisa Mark APRN, CNP Unavailable Un available Curtis Núñez MD Unavailable [phone] Leonor Burgos MD Unavailable + Deedee, Annalisa Madonna SENIOR SCRUM MASTER PLUG PASTER Unavailable Un available Norm Wrightkendall Moore PA-C Primary Care Provider Kyle Lisa Moore PA-C Unavailable [phone] Chanel Asher PA-C Unavailable [phone] Norm Wrightkendall Moore PA-C Unavailable Encounter Details Date Type Department Care Team (Late st Contact Info) Description 08/15/2019 MyC Medical Advice [facility] [address] [facility] [address] [place] [address] Jacob Carmona MD [address] [place] [address] Social History Tobacco Use Types [...] PM CDT Legal Sex Female 3:18 AM ROUTE SALES ASSOCIATE Gender Identity Female 03/25/2021 2:01 PM CDT Sexual Orientation Straight 03/25/2021 2: 01 PM CDT 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 Not on file [...] Out C-difficile 09/10/2022 09/10/2022 023 5:27 PM ROUTE SALES ASSOCIATE C-difficile 09/10/2022 09/10/2022 10/10/2022 11:3 9 PM CDT Assessment Noted Time PHQ-9 Depression Total Score: 3 12/08/19 19 7:05 AM CDT documented as of this encounter Care Teams Tracer Lathe Set Up Operator Relationship Specialty Start Date End Date Annalisa Mark APRN PLUG PASTER PCP - General Nurse Practitioner 03/22/15 06/29/22 Jacob Carmona MD [address] [place] [address] PCP - General 06/30/22 08/28/22 [facility] [address] [place] [address] PCP - General 08/29/22 01/18/23 Lisa Wright PA-C [address] [place] [address] PCP - General Family Medicine 01/19/23 Mukul Rivas PA-C [address] [place] [address] Assigned PCP 07/03/19 11/19/19 Annalsia Mark APRN PLUG PASTER Assigned PCP 11/20/19 12/10/19 Mukul Rivas PA-C [address] [place] [address] Assigned PCP 12/11/19 01/21/20 Annalisa Mark APRN PLUG PASTER Assigned PCP 01/22/20 02/21/22 Jacob Carmona MD [address] [place] [address] Assigned OBGYN Provider 05/18/20 Leonor Burgos MD ARISE [address] [employer] [address] [place] [address] Assigned PCP 02/22/22 05/16/22 Annalisa Mark APRN PLUG PASTER Assigned PCP 05/17/22 08/15/22 Leonor Burgos MD ARISE [address] [employer] [address] [place] [address] Assigned PCP 08/16/22 08/29/22 Annalisa Mark APRN PLUG PASTER [address] [place] [address] Assigned PCP 08/30/22 11/21/22 Curtis Núñez MD 420 [facility] 276 [place] [address] Assigned Pulmonology Provider 09/13/22 05/17/24 Leonor Burgos MD ARISE [address] [place] [address] 207 [place] [address] Assigned PCP 11/22/22 11/28/22 Annalisa Mark APRN PLUG PASTER Assigned PCP 11/29/22 01/23/23 Lisa Wright PA-C [address] [place] [address] Assigned PCP 01/24/23 04/17/24 Chanel Asher PA-C [address] [facility] 200 [place], [place] [address] Assigned PCP 04/18/24 06/17/24 Lisa Wright PA-C [address] [place] [address] Assigned PCP 06/18/24 documented as of this encounter
--- OUTSIDE RECORDS SUMMARY | 2024-09-19 03:06 | XMS_ITS | Encounter Summary ---
Author Organization [place] Address [facility] [place] [address] Care Team Providers Care Clinical Account Executive Name Role Phone Adal Kincaid MD Primary Care Provid er Jose Dumont MD Primary Care Provider [phone] Deedee, Annalisa Peacock APRN LICENSED MASS REAL ESTATE APPRAISER Primary Care Provi miguel Unavailable Leonor Burgos MD Unavailable + Deedee, Annalisa Peacock APRN LICENSED MASS REAL ESTATE APPRAISER Unavailable Un available DeedeeAnnalisa APRN LICENSED MASS REAL ESTATE APPRAISER Unavailable Un available Mukul Rivas PA-C Unavailable + [phone] Deedee, Annalisa Peacock APRN LICENSED MASS REAL ESTATE APPRAISER Unavailable Un available Mukul Rivas PA-C Unavailable [phone] Deedee, Annalisa Peacock APRN LICENSED MASS REAL ESTATE APPRAISER Unavailable Un available Jacob Carmona MD Unavailable + [phone] Leonor Burgos MD Unavailable + Deedee, Annalisa Peacock APRN LICENSED MASS REAL ESTATE APPRAISER Unavailable Un available Jacob Camrona MD Primary Care Provider Leonor Burgos MD Unavailable + [facility] Primary Care Provider Annalisa Mark APRN LICENSED MASS REAL ESTATE APPRAISER Unavailable Un available uCrtis Núñez MD Unavailable Leonor Burgos MD Unavailable + Annalisa Mark APRN LICENSED MASS REAL ESTATE APPRAISER Unavailable Un available Lisa Wright PA-C Primary Care Provider Lisa Wright PA-C Unavailable [phone] Chanel Asher PA-C Unavailable [phone] Lisa Wright PA-C Unavailable [phone] Reason for Visit * Reason Onset Date Comments Refill Request 09/22/2005 Encounter Details Date Type Department Care Team (Late st Contact Info) Description 09/22/[address] [place] [address] [place] [phone] Adal Kincaid MD [address] [place] [address] Refill Request Social History Tobacco Use Types Packs/Day Years Used Date Smoking Tobacco: Never Alcohol Use Standard Drinks/Week Comments No 0 (1 standard drink = 0.6 oz pur e alcohol) Comments No Sex and Gender Information Value Date Recorded Sex Assigned at Female 03/25/2021 2:01 PM CDT Legal Sex Female 3:18 AM CARD RUNNER Gender Identity Female 03/25/2021 2:01 PM CDT [...] Out C-difficile 09/10/2022 09/10/2022 023 5:27 PM CARD RUNNER C-difficile 09/10/2022 09/10/2022 10/10/2022 11:3 9 PM CDT documented as of this encounter Care Teams Clinical Account Executive Relationship Specialty Start Date End Date Adal Kincaid MD [address] [place] [address] PCP - General 05/05/03 01/28/12 Jose Dumont MD [address] [place] [address] PCP - General Family Practice 01/29/12 03/20/15 Annalisa Mark APRN LICENSED MASS REAL ESTATE APPRAISER [address] [place] [address] PCP - General Nurse Practitioner 03/22/15 06/29/22 Leonor Burgos MD [place] [address] [place] [address] PCP - Assigned PCP 12/13/17 06/05/18 Annalisa Mark APRN LICENSED MASS REAL ESTATE APPRAISER PCP - Assigned PCP 06/06/18 09/28/18 Jacob Carmona MD [address] [place] [address] PCP - General 06/30/22 08/28/[address] [address] PCP - General 08/29/22 01/18/23 Lisa Wright PA-C [address] [place] [address] PCP - General Family Medicine 01/19/23 Annalisa Mark APRN LICENSED MASS REAL ESTATE APPRAISER Assigned PCP 06/06/18 07/02/19 Mukul Rivas PA-C [address] [place] [id number] Assigned PCP 07/03/19 11/19/19 Annalisa Mark APRN LICENSED MASS REAL ESTATE APPRAISER Assigned PCP 11/20/19 12/10/19 Mukul Rivas PA-C [address] [place] [address] Assigned PCP 12/11/19 01/21/20 Annalisa Mark APRN LICENSED MASS REAL ESTATE APPRAISER Assigned PCP 01/22/20 02/21/22 Jacob Carmona MD [address] [place] [address] Assigned OBGYN Provider 05/18/20 Leonor Burgos MD ARISE [address] [address] Assigned PCP 02/22/22 05/16/22 Annalisa Mark APRN LICENSED MASS REAL ESTATE APPRAISER Assigned PCP 05/17/22 08/15/22 Leonor Burgos MD ARISE [address] [employer] [address] [place] [address] Assigned PCP 08/16/22 08/29/22 Annalisa Mark APRN LICENSED MASS REAL ESTATE APPRAISER [address] [facility] [place] [address] Assigned PCP 08/30/22 11/21/22 Curtis Núñez MD [address] [place] [address] 276 [place] [address] Assigned Pulmonology Provider 09/13/22 05/17/24 Leonor Burgos MD ARISE [address] [employer] [address] [place] [address] Assigned PCP 11/22/22 11/28/22 Annalisa Mark APRN LICENSED MASS REAL ESTATE APPRAISER Assigned PCP 11/29/22 01/23/23 Lisa Wright PA-C [address] [place] [address] Assigned PCP 01/24/23 04/17/24 Chanel Asher PA-C [address] [facility] [address] [place] [address] Assigned PCP 04/18/24 06/17/24 Lisa Wright PA-C [address] [place] [address] Assigned PCP 06/18/24 documented as of this encounter
--- OUTSIDE RECORDS SUMMARY | 2024-09-19 03:06 | XMS_ITS | Encounter Summary ---
Author Organization [place] Address [address] [place] [address]. [place] [address] Care Team Providers Care Drop Wirer Name Role Phone Jacob Carmona MD Unavailable [phone] Curtis Núñez MD Unavailable Lisa Wright PA-C Primary Care Provider Lisa Wright-Serina Unavailable [phone] Chanel Asher PA-C Unavailable Lisa Wright PA-C Unavailable [phone] Reason for Visit * Reason Onset Date Comments Postcoital bleeding 03/11/2024 Encounter Details Date Type Department Care Team (Late st Contact Info) Description 03/11/2024 MyC Medical Advice [facility] [place] [address] [place] [address] Jacob Carmona MD [address] [place] [address] Postcoital bleeding Social History Tobacco Use Types [...] re latives? Once a week 02/16/2024 Attends [employer] Not on file 02/15 Active Member [...] Answer Date Recorded PHQ-2 Score 0 02/16/2024 [facility] of Occupat ional Health - Occupational [...] exercise at this level? 20 min 02/16/2024 [place] Depression Scale Answer Date Recorded [place] Depression Score 2 09/21/2019 Last EPDS Self [...] you bought just not last and you didn t have money to get more? No 02/16/2024 Housing Stability Answer Date Recorded Do you have housing? 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 Not on file Not on damion e documented as of this encounter Plan of Treatment Not on file documented as of this encounter Visit Diagnoses Not on filedocumented in this encounter Additional Health Concerns Assessment Noted Time PHQ-9 Depression Total Score: 5 02/16/20 24 6:57 AM CDT documented as of this encounter Care Teams Drop Wirer Relationship Specialty Start Date End Date Lisa Wright PA-C [address] [place] [address] PCP - General Family Medicine 01/19/23 Jacob Carmona MD [address] [place] [address] Assigned OBGYN Provider 05/18/20 Curtis Núñez MD [address] [facility] 276 [place], [place] [address] Assigned Pulmonology Provider 09/13/22 05/17/24 Lisa Wright PA-C [address] [place] [address] Assigned PCP 01/24/23 04/17/24 Chanel Asher PA-C [address] [address] Assigned PCP 04/18/24 06/17/24 Lisa Wright PA-C [address] [place] [phone] Assigned PCP 06/18/24 documented as of this encounter
--- OUTSIDE RECORDS SUMMARY | 2024-09-19 03:06 | XMS_ITS | Clinical Summary ---
Author Organization [employer] [facility] Address [address] [place] [address] Care Team Providers Care Laundry Aide Name Role Phone Pcp, No Primary Care Provider Unavailabl e Allergies No known active allergies Medications escitalopram oxalate (LEXAPRO) 20 mg tablet Take 1 tablet by mouth once daily. 0 08/16/2014 Active Active Problems No known active problems Social History Tobacco Use Types Packs/Day Years Used Date Smoking Tobacco: Never Smokeless Tobacco: Never Alcohol Use Standard Drinks/Week Comments Yes 0 (1 standard drink = 0.6 oz pur e alcohol) social Comments No Sex and Gender Information Value Date Recorded Sex Assigned at Not on file Legal Sex Female 10:04 AM BRIM STIFFENER Gender Identity Not on file Sexual Orientation Not on file Obstetrics History Last Filed Vital Signs Vital Sign Reading Time Taken Comments Blood Pressure 106/68 08/16/2014 11:35 AM BRIM STIFFENER Pulse 93 08/16/2014 11:35 AM BRIM STIFFENER Temperature 36.7 C (98.1 F) 08/16/2014 11:35 AM BRIM STIFFENER Respiratory Rate 16 08/16/2014 11:35 AM BRIM STIFFENER Oxygen Saturation 100% 08/16/2014 11:35 AM BRIM STIFFENER Inhaled Oxygen Concentration - - Weight 52.2 kg (115 lb) 08/16/2014 11:35 AM BRIM STIFFENER Height - - Body Mass Index - - Plan of Treatment Health Maintenance Due Date Last Done Comments Tdap 1995 Depression screening for age 12+ 1996 HIV for age 15-65 1999 BMI (ht and wt on same day) for age 18+ 2002 Hepatitis C screening for ag e 18-79 2002 Tetanus booster 2004 Pap test for age 21-65 2005 COVID-19 vaccine series (2023-25 season) 2024 Influenza for age 9-49 03/27/2024 Pneumococcal series for age 6-49 Aged Out No longer eligible based on patient's age to complete this topic Insurance [facility] Care Teams Laundry Aide Relationship Specialty Start Date End Date Pcp, No . PCP - General 08/16/14
--- OUTSIDE RECORDS SUMMARY | 2024-09-19 03:06 | XMS_ITS | Encounter Summary ---
Author Organization [place] Address [address] [place] [address]. [place] [address] Care Team Providers Care Ambulance Driver Paramedic Name Role Phone Annalisa Mark APRN, CNP Primary Care Provi miguel Unavailable Jacob Carmona MD Unavailable [phone] Leonor Burgos MD Unavailable + Annalisa Mark APRN, CNP Unavailable Un available Jacob Carmona MD Primary Care Provider Leonor Burgos MD Unavailable + [facility] Primary Care Provider Annalisa Mark APRN APPRAISAL TECHNICIAN Unavailable Un available Curtis Núñez MD Unavailable [phone] Leonor Burgos MD Unavailable + Annalisa Mark APRN, CNP Unavailable Un available Lisa Wright PA-C Primary Care Provider Lisa Wright PA-C Unavailable [phone] Chanel Asher PA-C Unavailable [phone] Lisa Wright-C Unavailable [phone] Encounter Details Date Type Department Care Team (Late st Contact Info) Description 04/14/2022 MyC Medical Advice [facility] [place] [address] [facility] [address] [place] [address] Jacob Carmona MD [address] [place] [address] Social History Tobacco Use Types [...] often do you attend [facility] or judaism services? Patient declined 10/16/2021 Do you belong to any clubs o r organizations such as yarsani groups, unions, fraternal [...] Answer Date Recorded PHQ-2 Score 0 04/08/2022 [facility] [place] of Occupat ional Health - Occupational Stress [...] a care home (including now)? No 10/16/2021 [place] Depression Scale Answer Date Recorded [place] Depression Score 2 09/21/2019 Last EPDS Self Harm Result Not on file 09/21 Education Answer Date Recorded What is the highest level of school you have completed or the highest degree you have received? 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 Not on file Not on file Not on damion e documented as of this encounter Plan of Treatment Not on file documented as of this encounter Visit Diagnoses Not on filedocumented in this encounter Additional Health Concerns Infection Onset Date Last Indicated Resolved Time Rule Out C-difficile 09/10/2022 09/10/2022 023 5:27 PM FORMING FIXER C-difficile 09/10/2022 09/10/2022 10/10/2022 11:3 9 PM CDT Assessment Noted Time PHQ-9 Depression Total Score: 1 04/08/20 22 4:38 PM CDT documented as of this encounter Care Teams Ambulance Driver Paramedic Relationship Specialty Start Date End Date Annalisa Mark APRN APPRAISAL TECHNICIAN PCP - General Nurse Practitioner 03/22/15 06/29/22 Jacob Carmona MD [address] [place] [address] PCP - General 06/30/22 08/28/22 [facility] [id number] [place] [address] PCP - General 08/29/22 01/18/23 Lisa Wright PA-C [address] [place] [address] PCP - General Family Medicine 01/19/23 Jacob Carmona MD [address] [place] [address] Assigned OBGYN Provider 05/18/20 Leonor Burgos MD [place] [address] [address] [place] [address] Assigned PCP 02/22/22 05/16/22 Annalisa Mark APRN APPRAISAL TECHNICIAN Assigned PCP 05/17/22 08/15/22 Leonor Burgos MD [place] [address] [place] [address] Assigned PCP 08/16/22 08/29/22 Annalisa Mark APRN APPRAISAL TECHNICIAN [address] [place] [address] Assigned PCP 08/30/22 11/21/22 Curtis Núñez MD [address] [facility] 276 [place] [address] Assigned Pulmonology Provider 09/13/22 05/17/24 Leonor Burgos MD [place] [address] [place] [address] Assigned PCP 11/22/22 11/28/22 Annalisa Mark APRN APPRAISAL TECHNICIAN Assigned PCP 11/29/22 01/23/23 Lisa Wright PA-C [address] [place] [address] Assigned PCP 01/24/23 04/17/24 Chanel Asher PA-C [address] [facility] [address] [facility] 200 [place] [address] Assigned PCP 04/18/24 06/17/24 Lisa Wright PA-C [address] [place] [address] Assigned PCP 06/18/24 documented as of this encounter
--- OUTSIDE RECORDS SUMMARY | 2024-09-19 03:06 | XMS_ITS | Encounter Summary ---
Author Organization [place] Address [address] [place] [address]. [place] [address] Care Team Providers Care Patrol Commander Name Role Phone Annalisa Mark APRN, CNP Primary Care Provi miguel Unavailable Annalisa Mark APRN, CNP Unavailable Un available Jacob Carmona MD Unavailable Leonor Burgos MD Unavailable + Annalisa Mark APRN, CNP Unavailable Un available SabJacob sylvester MD Primary Care Provider Leonor Burgos MD Unavailable + [facility] Primary Care Provider Annalisa Mark APRN, CNP Unavailable Un available Curtis Núñez MD Unavailable Leonor Burgos MD Unavailable + Annalisa Mark APRN, CNP Unavailable Un available Lisa Wright PA-C Primary Care Provider Lisa Wright PA-C Unavailable [phone] Chanel Asher PA-C Unavailable [phone] Lisa Wright PA-C Unavailable Encounter Details Date Type Department Care Team (Late st Contact Info) Description 01/17/2022 MyC Medical Advice [facility] [place] [address] [facility] [address] [place] [address] Kerri Roa, MOLD BUNCH TRIMMER Social History Tobacco Use Types Packs/Day Years [...] 10/16/2021 How often do you attend [facility] or buddhism services? Patient declined 10/16/2021 Do you belong to any clubs o r organizations such as amish groups, unions, fraternal [...] Answer Date Recorded PHQ-2 Score 0 11/08/2021 [facility] [place] of Occupat ional Health - Occupational Stress [...] in a alf (including now)? No 10/16/2021 [place] Depression Scale Answer Date Recorded [place] Depression Score 2 09/21/2019 Last EPDS Self Harm Result Not on file 09/21 Education Answer Date Recorded What is the highest level of school you have completed or the highest degree you have received? 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 Not on file Not on file [...] Out C-difficile 09/10/2022 09/10/2022 023 5:27 PM BAKING FACTORY WORKER C-difficile 09/10/2022 09/10/2022 10/10/2022 11:3 9 PM CDT Assessment Noted Time PHQ-9 Depression Total Score: 4 10/18/19 22 10:05 AM CDT documented as of this encounter Care Teams Patrol Commander Relationship Specialty Start Date End Date Annalisa Mark APRN ACTIVITIES LEADER PCP - General Nurse Practitioner 03/22/15 06/29/22 Jacob Carmona MD [address] [place] [address] PCP - General 06/30/22 08/28/22 [facility] [address] [place] [address] PCP - General 08/29/22 01/18/23 Lisa Wright PA-C [address] [place] [address] PCP - General Family Medicine 01/19/23 Annalisa Mark APRN ACTIVITIES LEADER Assigned PCP 01/22/20 02/21/22 Jacob Carmona MD [address] [place] [address] Assigned OBGYN Provider 05/18/20 Leonor Burgos MD [place] [address] [place] [address] Assigned PCP 02/22/22 05/16/22 Annalisa Mark APRN ACTIVITIES LEADER Assigned PCP 05/17/22 08/15/22 Leonor Burgos MD [place] [address] [place] [address] Assigned PCP 08/16/22 08/29/22 Annalisa Mark APRN ACTIVITIES LEADER [address] [place] [address] Assigned PCP 08/30/22 11/21/22 Curtis Núñez MD [address] [facility] 276 [place] [address] Assigned Pulmonology Provider 09/13/22 05/17/24 Leonor Burgos MD [place] [address] [place] [address] Assigned PCP 11/22/22 11/28/22 Annalisa Mark APRN ACTIVITIES LEADER Assigned PCP 11/29/22 01/23/23 Lisa Wright PA-C [address] [place] [address] Assigned PCP 01/24/23 04/17/24 Chanel Asher PA-C [address] [facility] [address] [place] [address] Assigned PCP 04/18/24 06/17/24 Lisa Wright PA-C [address] [facility] [place] [phone] Assigned PCP 06/18/24 documented as of this encounter
--- OUTSIDE RECORDS SUMMARY | 2024-09-19 03:06 | XMS_ITS | Encounter Summary ---
Author Organization [place] Address [address] [place] [address]. [place] [address] Care Team Providers Care Maintenance Worker Swimming Pool Name Role Phone Annalisa Mark APRN, CNP Primary Care Provi miguel Unavailable Annalisa Mark APRN, CNP Unavailable Un available Jacob Carmona MD Unavailable Leonor Burgos MD Unavailable + Annalisa Mark APRN, CNP Unavailable Un available SabJacob sylvester MD Primary Care Provider Leonor Burgos MD Unavailable + [facility] Primary Care Provider Annalisa Mark APRN, CNP Unavailable Un available Curtis Núñez MD Unavailable Leonor Burgos MD Unavailable + Annalisa Mark APRN, CNP Unavailable Un available Lisa Wright PA-C Primary Care Provider Lisa Wright PA-C Unavailable [phone] Chanel Asher PA-C Unavailable Lisa Wright PA-C Unavailable [phone] Encounter Details Date Type Department Care Team (Late st Contact Info) Description 07/18/2021 MyC Medical Advice [facility] [place] [address] [facility] [address] [place] [address] Jacob Carmona MD [address] [place] [address] Social History Tobacco Use Types [...] 02/15/2019 Lack of Transportation (Non-Medical) No 02/15/2019 [place] Depression Scale Answer Date Recorded [place] Depression Score 2 09/21/2019 Last EPDS Self Harm Result Not on file 09/21 Education Answer Date Recorded What is the highest level of school you have completed or the highest degree you have received? 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 Not on file Not on file [...] Out C-difficile 09/10/2022 09/10/2022 023 5:27 PM CORRECTIONAL GUARD C-difficile 09/10/2022 09/10/2022 10/10/2022 11:3 9 PM CDT Assessment Noted Time PHQ-9 Depression Total Score: 2 03/25/20 21 2:42 PM CDT documented as of this encounter Care Teams Maintenance Worker Swimming Pool Relationship Specialty Start Date End Date Annalisa Mark APRN VALET PARKING ATTENDANT PCP - General Nurse Practitioner 03/22/15 06/29/22 Jacob Carmona MD [address] [place] [address] PCP - General 06/30/22 08/28/22 [facility] [id number] [place] [id number] PCP - General 08/29/22 01/18/23 Lisa Wright PA-C [address] [place] [address] PCP - General Family Medicine 01/19/23 Annalisa Mark APRN VALET PARKING ATTENDANT Assigned PCP 01/22/20 02/21/22 Jacob Carmona MD [address] [place] [address] Assigned OBGYN Provider 05/18/20 Leonor Burgos MD [place] [address] [place] [address] Assigned PCP 02/22/22 05/16/22 Annalisa Mark APRN VALET PARKING ATTENDANT Assigned PCP 05/17/22 08/15/22 Leonor Burgos MD [place] [address] [employer] [address] [place] [address] Assigned PCP 08/16/22 08/29/22 Annalisa Mark APRN VALET PARKING ATTENDANT [address] [place] [address] Assigned PCP 08/30/22 11/21/22 Curtis Núñez MD [address] [place] [address] 276 [place], [place] [address] Assigned Pulmonology Provider 09/13/22 05/17/24 Leonor Burgos MD [place] [address] [place] [address] Assigned PCP 11/22/22 11/28/22 Annalisa Mark APRN VALET PARKING ATTENDANT Assigned PCP 11/29/22 01/23/23 Lisa Wright PA-C [address] [place] [address] Assigned PCP 01/24/23 04/17/24 Chanel Asher PA-C [address] [facility] 200 [place] [address] Assigned PCP 04/18/24 06/17/24 Lisa Wright PA-C [address] [place] [phone] Assigned PCP 06/18/24 documented as of this encounter
--- OUTSIDE RECORDS SUMMARY | 2024-09-19 03:06 | XMS_ITS | Encounter Summary ---
Author Organization [place] Address [address] [place] [address]. [place] [address] Care Team Providers Care Rug Cleaner Name Role Phone Annalisa Mark APRN WHITE SHOE EXAMINER Primary Care Provi miguel Unavailable Jacob Carmona MD Unavailable [phone] Annalisa Mark APRN, CNP Unavailable Un available Jacob Carmona MD Primary Care Provider FroylanLeonor Morton MD Unavailable + [facility] Primary Care Provider Annalisa Mark APRN WHITE SHOE EXAMINER Unavailable Un available Curtis Núñez MD Unavailable [phone] Leonor Burgos MD Unavailable + Annalisa Mark APRN, CNP Unavailable Un available Lisa Wright PA-C Primary Care Provider [phone] Lisa Wright PA-C Unavailable [phone] Chanel Asher PA-C Unavailable [phone] Lisa Wright PA-C Unavailable [phone] Reason for Visit * Reason Onset Date Comments Vaginal Bleeding 05/17/2022 Encounter Details Date Type Department Care Team (Late st Contact Info) Description 05/17/2022 MyC Medical Advice [facility] [address] [facility] [address] [place] [address] Jacob Carmona MD [address] [place] [address] Vaginal Bleeding Social History Tobacco Use Types [...] 10/16/2021 How often do you attend [facility] or congregation services? Patient declined 10/16/2021 Do you belong to any clubs o r organizations such as pentecostalism groups, unions, fraternal [...] Answer Date Recorded PHQ-2 Score 0 04/08/2022 [facility] [place] of Occupat ional Health - Occupational Stress [...] in a alf (including now)? No 10/16/2021 [place] Depression Scale Answer Date Recorded [place] Depression Score 2 09/21/2019 Last EPDS Self Harm Result Not on file 09/21 Education Answer Date Recorded What is the highest level of school you have completed or the highest degree you have received? 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 Anything to add? Pamela Velazquez RN documented in this encounter Plan of Treatment Not on file documented as of this encounter Visit Diagnoses Not on filedocumented in this encounter Additional Health Concerns Infection Onset Date Last Indicated Resolved Time Rule Out C-difficile 09/10/2022 09/10/2022 023 5:27 PM SACK CLEANING HAND C-difficile 09/10/2022 09/10/2022 10/10/2022 11:3 9 PM CDT Assessment Noted Time PHQ-9 Depression Total Score: 1 04/08/20 22 4:38 PM CDT documented as of this encounter Care Teams Rug Cleaner Relationship Specialty Start Date End Date Annalisa Mark APRN WHITE SHOE EXAMINER PCP - General Nurse Practitioner 03/22/15 06/29/22 Jacob Carmona MD [address] [place] [address] PCP - General 06/30/22 08/28/22 Clinic - [facility] [address] [place] [address] PCP - General 08/29/22 01/18/23 Lisa Wright PA-C [address] [place] [phone] PCP - General Family Medicine 01/19/23 Jacob Carmona MD [address] [place] [address] Assigned OBGYN Provider 05/18/20 Annalisa Mark APRN WHITE SHOE EXAMINER Assigned PCP 05/17/22 08/15/22 Leonor Burgos MD [place] [address] [employer] [address] [place] [address] Assigned PCP 08/16/22 08/29/22 Annalisa Mark APRN WHITE SHOE EXAMINER [address] [place] [address] Assigned PCP 08/30/22 11/21/22 Curtis Núñez MD 420 [facility] 276 [place] [address] Assigned Pulmonology Provider 09/13/22 05/17/24 Leonor Burgos MD [place] [address] [employer] [address] [place] [address] Assigned PCP 11/22/22 11/28/22 Annalisa Mark APRN WHITE SHOE EXAMINER Assigned PCP 11/29/22 01/23/23 Lisa Wright PA-C [address] [place] [address] Assigned PCP 01/24/23 04/17/24 Chanel Asher PA-C [address] [facility] 200 [place] [address] Assigned PCP 04/18/24 06/17/24 Lisa Wright PA-C [address] [place] [address] Assigned PCP 06/18/24 documented as of this encounter
--- OUTSIDE RECORDS SUMMARY | 2024-09-19 03:06 | XMS_ITS | Encounter Summary ---
Author Organization [facility] Address [address] [place] [address]. [place] [address] Care Team Providers Care Button Tufter Name Role Phone Annalisa Mark APRN TUBING ASSEMBLER Primary Care Provi miguel Unavailable Jacob Carmona MD Unavailable [phone] Annalisa Mark APRN, CNP Unavailable Un available Jacob Carmona MD Primary Care Provider FroylanLeonor Morton MD Unavailable + [facility] Primary Care Provider Annalisa Mark APRN TUBING ASSEMBLER Unavailable Un available Curtis Núñez MD Unavailable [phone] Leonor Burgos MD Unavailable + Annalisa Mark APRN TUBING ASSEMBLER Unavailable Un available Lisa Wright PA-C Primary Care Provider [phone] Lisa Wright PA-C Unavailable [phone] Chanel Asher PA-C Unavailable [phone] Lisa Wright PA-C Unavailable [phone] Reason for Visit * Reason Onset Date Comments Vaginal Problem 06/06/2022 Ultrasound 06/06/2022 Encounter Details Date Type Department Care Team (Late st Contact Info) Description 06/06/2022 MyC Medical Advice [facility] [address] [facility] [address] [place] [address] Jacob Carmona MD [address] [place] [address] Vaginal Problem; Ultrasound Social History Tobacco Use [...] How often do you attend [facility] or jain services? Patient declined 10/16/2021 Do you belong [...] Answer Date Recorded PHQ-2 Score 0 04/08/2022 [facility] [place] of Occupat ional Health - Occupational Stress [...] or slept in a correction (including now)? No 10/16/2021 Mobile Depression Scale Answer Date Recorded Mobile Depression Score 2 09/21/2019 Last EPDS Self Harm Result Not on file 09/21 Education Answer Date Recorded What is the highest level of school you have completed or the highest degree you have received? 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 No / Unsure 05/22/2022 10:01 AM CDT documented as of this encounter Miscellaneous Notes * Telephone Encounter - Mary Lou Petty RN - 06/12/2022 4:41 PM CST Please see VocalizeLocalhart. Pelvic US pended below to sign if ok. Mary Lou Petty RN ERCIAL MANAGER documented in this encounter Plan of Treatment Not on file documented as of this encounter Visit Diagnoses Not on filedocumented in this encounter Additional Health Concerns Infection Onset Date Last Indicated Resolved Time Rule Out C-difficile 09/10/2022 09/10/2022 023 5:27 PM COMMERCIAL MANAGER C-difficile 09/10/2022 09/10/2022 10/10/2022 11:3 9 PM CDT Assessment Noted Time PHQ-9 Depression Total Score: 1 04/08/20 22 4:38 PM CDT documented as of this encounter Care Teams Button Tufter Relationship Specialty Start Date End Date Annalisa Mark APRN TUBING ASSEMBLER PCP - General Nurse Practitioner 03/22/15 06/29/22 Jacob Carmona MD [address] [place] [address] PCP - General 06/30/22 08/28/22 Clinic - [facility] [address] [place] [address] PCP - General 08/29/22 01/18/23 Lisa Wright PA-C [address] [place] [address] PCP - General Family Medicine 01/19/23 Jacob Carmona MD [address] [place] [address] Assigned OBGYN Provider 05/18/20 Annalisa Mark APRN TUBING ASSEMBLER Assigned PCP 05/17/22 08/15/22 Leonor Burgos MD [facility] [address] [employer] [address] [place] [address] Assigned PCP 08/16/22 08/29/22 Annalisa Mark APRN TUBING ASSEMBLER [address] [place] [address] Assigned PCP 08/30/22 11/21/22 Curtis Núñez MD [address] [facility] [address] [place] [address] Assigned Pulmonology Provider 09/13/22 05/17/24 Leonor Burgos MD [facility] [address] [employer] [address] [place] [address] Assigned PCP 11/22/22 11/28/22 Annalisa Mark APRN TUBING ASSEMBLER Assigned PCP 11/29/22 01/23/23 Lisa Wright PA-C [address] [place] [address] Assigned PCP 01/24/23 04/17/24 Chanel Asher PA-C [address] [facility] [address] [place] [address] Assigned PCP 04/18/24 06/17/24 Lisa Wright PA-C [address] [place] [phone] Assigned PCP 06/18/24 documented as of this encounter
--- OUTSIDE RECORDS SUMMARY | 2024-09-19 03:06 | XMS_ITS | Encounter Summary ---
Author Organization [place] Address [address] [place] [address]. [place] [address] Care Team Providers Care Sas Developer Name Role Phone Annalisa Mark APRN, CNP Primary Care Provi miguel Unavailable Annalisa Mark APRN, CNP Unavailable Un available Jacob Carmona MD Unavailable Leonor Burgos MD Unavailable + Annalisa Mark APRN, CNP Unavailable Un available SabJacob sylvester MD Primary Care Provider Leonor Burgos MD Unavailable + [facility] Primary Care Provider Annalisa Mark APRN, CNP Unavailable Un available Curtis Núñez MD Unavailable Leonor Burgos MD Unavailable + Annalisa Mark APRN, CNP Unavailable Un available Lisa Wright PA-C Primary Care Provider Lisa Wright PA-C Unavailable [phone] Chanel Asher PA-C Unavailable Lisa Wright PA-C Unavailable [phone] Encounter Details Date Type Department Care Team (Late st Contact Info) Description 01/24/2022 MyC Medical Advice [facility] [address] [facility] [address] [place] [address] Jacob Carmona MD [address] [place] [address] Social History Tobacco Use Types [...] How often do you attend chur or amish services? Patient declined 10/16/2021 Do you belong to any clubs o r organizations such as voodoo groups, unions, fraternal [...] Answer Date Recorded PHQ-2 Score 0 11/08/2021 [facility] [place] of Occupat ional Health - Occupational Stress [...] or slept in a mcfp (including now)? No 10/16/2021 Taylor Depression Scale Answer Date Recorded Taylor Depression Score 2 09/21/2019 Last EPDS Self Harm Result Not on file 09/21 Education Answer Date Recorded What is the highest level of school you have completed or the highest degree you have received? 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 [address] [place] [address] PCP - General 08/29/22 01/18/23 Lisa Wright PA-C [address] [place] [phone] PCP - General Family Medicine 01/19/23 Annalisa Mark APRN NAVAL AIRCREWMAN TACTICAL HELICOPTER Assigned PCP 01/22/20 02/21/22 Jacob Carmona MD [address] [place] [address] Assigned OBGYN Provider 05/18/20 Leonor Burgos MD ARISE [address] [employer] [address] [place], [place] [address] Assigned PCP 02/22/22 05/16/22 Annalisa Mark APRN NAVAL AIRCREWMAN TACTICAL HELICOPTER Assigned PCP 05/17/22 08/15/22 Leonor Burgos MD [place] [address] [employer] [place] [address] Assigned PCP 08/16/22 08/29/22 Annalisa Mark APRN NAVAL AIRCREWMAN TACTICAL HELICOPTER [id number] [place] [address] Assigned PCP 08/30/22 11/21/22 Curtis Núñez MD [address] [place] [address] [address] [place] [address] Assigned Pulmonology Provider 09/13/22 05/17/24 Leonor Burgos MD ARISE [address] [employer] [place], [place] [address] Assigned PCP 11/22/22 11/28/22 Annalisa Mark APRN NAVAL AIRCREWMAN TACTICAL HELICOPTER Assigned PCP 11/29/22 01/23/23 Lisa Wright PA-C [address] [place] [address] Assigned PCP 01/24/23 04/17/24 Chanel Asher PA-C [address] [address] Assigned PCP 04/18/24 06/17/24 Lisa Wright PA-C [address] [place] [phone] Assigned PCP 06/18/24 documented as of this encounter
--- OUTSIDE RECORDS SUMMARY | 2024-09-19 03:06 | XMS_ITS | Clinical Summary ---
Author Organization [place] Address [address] [place] [address]. [place] [address] Care Team Providers Care Topper Press Operator Name Role Phone Jacob Carmona MD Unavailable [phone] Lisa Wright PA-C Primary Care Provider Lisa Wright PA-C Unavailable Allergies No known active allergies Medications Multiple Vitamin (MULTIVITAMIN ADULT PO) Active norgestim-eth estrad triphasic (ORTHO TRI-CYCLEN) 0.18/0.215/0.25 MG-35 MCG tabletIndications: OCP (oral contraceptive pills) initiation Take 1 tablet by mouth daily 84 tablet 3 4 Active levothyroxine (SYNTHROID/LEVOTHR OID) 25 MCG tabletIndications: Subclinical hypothyroidism Take 1 tablet (25 mcg) by mouth daily. 90 tablet 1 5 Active levothyroxine (SYNTHROID/LEVOTHR OID) 25 MCG tabletIndications: Subclinical hypothyroidism Take 1 tablet (25 mcg) by mouth daily. 90 tablet 1 4 09/13/19 25 Discontinu ed(Reorder (No AVS)) Active Problems Problem Noted Date Diagnosed Date Subclinical hypothyroidism 03/17/2024 Psychophysiologic insomnia 02/16/2024 Atypical chest pain 01/19/2023 01/19/2023 Kidney stone 12/29/2022 History of OCD (obsessive compulsive disorder) 0 01/29/2012 Generalized anxiety disorder 01/29/2012 Overview (05/28/2015): Diagnosis updated by automated process. Provider to review and confirm. CARDIOVASCULAR SCREENING; LDL GOAL LESS THAN 160 05/26/2010 H/O LEEP 02/15/2008 Overview (12/30/2023): 02/15/08 LSIL 02/24/08 Collp PEDRO I 04/04/08 Cryo 08/01/08 LSIL 11/21/08 [place] PEDRO I 12/14/08 Cryo 04/05/09 LSIL 04/10/09 [place] PEDRO I & II 04/24/09 LEEP PEDRO I & II 08/28/09 LSIL 07/25/10 WNL pap 12/31/10 ASCUS pap with positive HPV. Pt to schedule colposcopy (apt 04/14/11) 05/26/11 [place] PEDRO I & II. Pt to schedule [...] Encounters Date Type Department Care Team Description 09/15/2024 MyC Medical Advice [facility] [address] [facility] [address] [place] [phone] Jacob Carmona MD 09/13/2024 MyC Medical Advice [address] [address] Lisa Wright PA-C Subclinical hypothyroidism 09/07/[address] [address] Chanel Asher PA-C Medication Refill 07/14/2024 8:30 AM CENTER SALES AND SERVICE ASSOCIATE Virtual Visit [address] [address] Lisa Wright PA-C Subclinical hypothyroidism (Primary Dx); Generalized anxiety disorder from Last 3 Months Immunizations Name Administration [...] Packs/Day Years Used Date Smoking Tobacco: Never Passive Smoke Exposure: Never Smokeless Tobacco: Never Tobacco Cessation:Counseling Given: [...] re latives? Once a week 02/16/2024 Attends Church Services Not on file 02/15 Active Member [...] Answer Date Recorded PHQ-2 Score 0 02/16/2024 [facility] [place] of Occupat ional Health - Occupational Stress [...] exercise at this level? 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 Not on file Not on file Not on damion e Last Filed Vital Signs Vital Sign Reading Time Taken Comments Blood Pressure 104/70 03/17/2024 9:56 AM CDT Pulse 81 02/16/2024 7:47 AM CDT Temperature 36.9 C (98.4 F) 02/16/2024 7:47 AM CDT Respiratory Rate 15 02/16/2024 7:47 AM CDT Oxygen Saturation 100% 02/16/2024 7:47 AM CDT Inhaled Oxygen Concentration - - Weight 55.8 kg (123 lb) 03/17/2024 9:56 AM CDT Height 160 cm (5' 3) 02/16/2024 7:47 AM CDT Body Mass Index 21.79 02/16/2024 7:47 AM CDT Plan of Treatment Health Maintenance Due Date Last Done Comments CT COLONOGRAPHY 1984 FIT 1984 FLEX SIG 1984 sDNA (Cologuard) 1984 ANNUAL REVIEW OF HM ORDERS 01/20/202401/19, 10/17/2021, 05/03/2020, Additional history exists COVID-19 Vaccine ( season) 2024 INFLUENZA VACCINE (#1) 2024 05/20/2019, 2015 PHQ-2 (once per calendar year) 2024 02/16/2024, 02/16/2024, 08/28/2023, Additional history exists PHQ-9 08/18/2024 02/16/2024, 04/2 12/2022, 04/08/2022, Additional history exists YEARLY PREVENTIVE VISIT 02/15/2025 02/16/20, 12/23/2023, 01/19/2023, Additional history exists TSH W/FREE T4 REFLEX 06/10/2025 06/10/2024, 03/15/2024, 03/15/2024, Additional history exists MAMMO SCREENING 02/23/2026 02/24/2024, 05/0 09/2022, 06/19/2003, Additional history exists HPV TEST 12/22/2026 12/23/2023, 09/26, 04/19/2018, Additional history exists PAP 12/22/2026 12/23/2023, 11/25, 10/23/2020, Additional history exists GLUCOSE 02/15/2027 02/16/2024, 12/26, 02/20/2022, Additional history exists ADVANCE CARE PLANNING 02/15/2029 02/16/2024, 021 LIPID 02/15/2029 02/16/2024, 12/26, 01/16/2022, Additional history exists DTAP/TDAP/TD IMMUNIZATION (9 - Td or Tdap) 07/29/2029 07/29/2019, 08/18/2016, 01/07/2007, Additional history exists COLONOSCOPY 03/10/2030 03/10/2023 COLORECTAL CANCER SCREENING 03/10/2030 ZOSTER IMMUNIZATION (1 of 2) 2034 HEPATITIS B IMMUNIZATION Completed 996, 12/06/1995, 11/26/1995, Additional history exists HEPATITIS C SCREENING Completed 12/23/2023 , 03/22/2015, 05/28/2012, Additional history exists HIV SCREENING Completed 12/23/2023, 01/25, 03/04/2016, Additional history exists HPV FOLLOW-UP Completed 12/23/2023, 09/26, 04/19/2018, Additional history exists PAP FOLLOW-UP Completed 12/23/2023, 11/25, 10/23/2020, Additional history exists HPV IMMUNIZATION Aged Out No longer e ligible based on patient's age to complete this topic MENINGITIS IMMUNIZATION Aged Out No l onger eligible based on patient's age to complete this topic Pneumococcal Vaccine: Pediatrics (0 to 5 Years) and At-Risk Patients (6 to 49 Years) Aged Out No longer eligible based on patient's age to complete this topic Procedures Procedure Name Priority Date/Time Associated Diagnosis Comments TSH WITH FREE T4 REFLEX Routine 06/10/2024 11:02 AM CENTER SALES AND SERVICE ASSOCIATE Subclinical hypothyroidism MA DIAGNOSTIC BILATERAL W/ JOO Routine 02/24/2024 7:56 AM CDT Mass of upper outer quadrant of left breast COMPREHENSIVE METABOLIC PANEL Routine 02/16/2024 8:31 AM CDT Routine general medical examination at a health care facility LIPID REFLEX TO DIRECT LDL PANEL Routine 02/16/2024 8:31 AM CDT Routine general medical examination at a health care facility HIV ANTIGEN ANTIBODY COMBO Routine 12/23/2023 1:57 PM CDT Screen for STD (sexually transmitted disease) HEPATITIS C ANTIBODY Routine 12/23/2023 1:57 PM CDT Screen for STD (sexually transmitted disease) HPV AND GYNECOLOGIC CYTOLOGY PANEL Routine 12/23/2023 1:41 PM CDT Pap smear for cervical cancer screening COLONOSCOPY - HIM SCAN 03/10/2023 12:00 AM CDT from Last 3 Months or Most Recently Relevant to Health Maintenance Results * TSH with free T4 reflex (06/10/2024 11:02 AM CENTER SALES AND SERVICE ASSOCIATE) TSH 2.68 0.30 - 4.20 uIU/mL 06/11/2024 5:06 AM CENTER SALES AND SERVICE ASSOCIATE [facility] Blood BLOOD SPECIMEN / Unknown Venipuncture / Unknown 06/10/2024 11:02 AM CENTER SALES AND SERVICE ASSOCIATE 06/10/2024 11:02 AM CENTER SALES AND SERVICE ASSOCIATE us Chanel Asher PA-C LAB - BLOOD ORDERABLES Fin al Result [facility] [address] [facility], [address] [place] [address], [facility] * MA Diagnostic Bilateral w/Joo (02/24/2024 7:56 [...] 02/24/2024 7:56 AM ULTRASOUND LEFT BREAST HISTORY: Left breast lump. COMPARISON: Prior mammograms in 2022. BREAST DENSITY: The breasts are heterogeneously dense which may obscure small masses. FINDINGS: No mammographic findings suspicious for malignancy. Targeted ultrasound evaluation of the left breast from 12:00 to 3:00 4 cm from the nipple at the site of palpable lump demonstrates no underlying sonographic abnormalities. Chanel Asher PA-C IM MAMMOGRAPHY ORDERABLES Final Result * (ABNORMAL) Lipid panel reflex to direct [...] - 02/16/2024 2:43 PM CDT Cholesterol Desirable: <200 mg/dL Triglycerides Normal: Less than 150 mg/dL Borderline High: 150-199 mg/dL High: 200-499 mg/dL Very High: Greater than or equal to 500 mg/dL Direct Measure HDL Female: Greater than or equal to 50 mg/dL Male: Greater than or equal to 40 mg/dL LDL Cholesterol Desirable: <100mg/dL Above Desirable: 100-129 mg/dL Borderline High: 130-159 mg/dL High: 160-189 mg/dL Very High: >= 190 mg/dL Non HDL Cholesterol Desirable: 130 mg/dL Above Desirable: 130-159 mg/dL Borderline High: 160-189 mg/dL High: 190-219 mg/dL Very High: Greater than or equal to 220 mg/dL us Chanel Asher PA-C LAB - BLOOD ORDERABLES Fin al Result [facility] [place] [facility] [address] [facility], [address] [place] [address] * Comprehensive metabolic panel (BMP + [...] 2:43 PM CDT [facility] Comment:eGFR calculated 2020 CKD-EPI equation. Calcium 9.1 8.8 - 10.4 [...] 8:31 AM CDT 02/16/2024 8:31 AM CDT us Chanel Asher PA-C LAB - BLOOD ORDERABLES Fin al Result [facility] [place] [facility] [address] [facility], [address] [place] [address] * HIV Antigen Antibody Combo [place] (12/23/2023 1:57 PM CDT) Pathologist [facility] HIV Antigen Antibody Combo Nonreactive Nonreactive 12/24/2023 [...] Jacob Carmona MD LAB - BLOOD ORDERABLES Final Result Performing Organization Address [facility] Phone Number LABORATORY [facility] Core Lab [address] [place] [address], [facility] [address] * Hepatitis C antibody (12/23/2023 1:57 PM CDT) [facility] Hepatitis C Antibody Nonreactive Nonreactive 12/24/2023 1:36 PM CDT LABORATORY Comment:A nonreactive screen ing test result [...] Jacob Carmona MD LAB - BLOOD ORDERABLES Final Result Performing Organization Address [facility] Phone Number LABORATORY [facility] [place] [facility] [address] [facility], [address] * Gynecologic Cytology (Pap) and HPV ??? [...] for high risk HPV DNA. METHODOLOGY: The Darberry system uses automated extraction, simultaneous amplification of [...] Jacob Carmona MD LAB - BLOOD ORDERABLES Final Result SPECIALTY LABS Specialty Lab [address] [facility] [address], [address] [place] [address], [facility] MOLECULAR DIAGNOSTICS Molecular Diagnostics [address] [facility] [address], [address] [place] [address], [facility] * COLONOSCOPY - HIM SCAN (03/10/2023 12:00 AM CDT) 03/10/2023 Provider Outside PROCEDURES Final Result from Last 3 Months or Most Recently Relevant to Health Maintenance Insurance [facility] COMMERCIAL Care Teams Topper Press Operator Relationship Specialty Start Date End Date Lisa Wright PA-C [address] [place] [address] PCP - General Family Medicine 01/19/23 Jacob Carmona MD [address] [place] [address] Assigned OBGYN Provider 05/18/20 Lisa Wright PA-C [address] [place] [phone] Assigned PCP 06/18/24
--- OUTSIDE RECORDS SUMMARY | 2024-09-19 03:06 | XMS_ITS | Encounter Summary ---
Author Organization [place] Address [address] [place] [address]. [place] [address] Care Team Providers Care Air Traffic Control Equipment Repairer Name Role Phone Annalisa Mark APRN, [...] Unavailable Un available Curtis Núñez MD Unavailable [phone] Leonor Burgos MD Unavailable + Annalisa Mark APRN, CNP Unavailable Un available Lisa Wright PA-C Primary Care Provider Lisa Wright PA-C Unavailable [phone] Chanel Asher PA-C Unavailable [phone] Lisa Wright PA-C Unavailable [phone] Reason for Visit * Reason Onset Date Comments MyChart Communication 03/26/2021 weight Encounter Details Date Type Department Care Team (Latest Contact Info) Description 03/26/2021 MyC Medical Advice M [address] [address] Annalisa Mark, JADEN TECHNICAL PRODUCER MyChart Communication (weight) Social History Tobacco Use Types [...] 02/15/2019 Lack of Transportation (Non-Medical) No 02/15/2019 Jones Depression Scale Answer Date Recorded Jones Depression Score 2 09/21/2019 Last EPDS Self Harm Result Not on file 09/21 Education Answer Date Recorded What is the highest level of school you have completed or the highest degree you have received? 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 Annalisa Mark CNP * Telephone Encounter - Chiqui Henley RN - 03/26/2021 8:04 AM CDT Routed to , see [employer] appointment update and advise weight concern Wt [...] Out C-difficile 09/10/2022 09/10/2022 023 5:27 PM TAG METER OPERATOR C-difficile 09/10/2022 09/10/2022 10/10/2022 11:3 9 PM CDT Assessment Noted Time PHQ-9 Depression Total Score: 2 03/25/20 2:42 PM CDT documented as of this encounter Care Teams Air Traffic Control Equipment Repairer Relationship Specialty Start Date End Date Annalisa Mark APRN CNP PCP - General Nurse Practitioner 03/22/15 06/29/22 Jacob Carmona MD [address] [place], [place] [phone] PCP - General 06/30/22 08/28/22 [facility] [address] [place], [place] [phone] PCP - General 08/29/22 01/18/23 Lisa Wright PA-C [address] [place] [address] PCP - General Family Medicine 01/19/23 Annalisa Mark APRN TECHNICAL PRODUCER Assigned PCP 01/22/20 02/21/22 Jacob Carmona MD [address] [place] [address] Assigned OBGYN Provider 05/18/20 Leonor Burgos MD ARISE [address] [employer] [place] [address] Assigned PCP 02/22/22 05/16/22 Annalisa Mark APRN TECHNICAL PRODUCER Assigned PCP 05/17/22 08/15/22 Leonor Burgos MD ARISE [address] [place] [address] Assigned PCP 08/16/22 08/29/22 Annalisa Mark APRN TECHNICAL PRODUCER [address] [place] [address] Assigned PCP 08/30/22 11/21/22 Curtis Núñez MD [address] [place] [address] Assigned Pulmonology Provider 09/13/22 05/17/24 Leonor Burgos MD [place] [address] [facility] [address] [place] [address] Assigned PCP 11/22/22 11/28/22 Annalisa Mark APRN TECHNICAL PRODUCER Assigned PCP 11/29/22 01/23/23 Lisa Wright PA-C [address] [place] [phone] Assigned PCP 01/24/23 04/17/24 Chanel Asher PA-C [address] [facility] [address] [place], [place] [address] Assigned PCP 04/18/24 06/17/24 Lisa Wright PA-C [address] [place] [phone] Assigned PCP 06/18/24 documented as of this encounter
--- OUTSIDE RECORDS SUMMARY | 2024-09-19 03:06 | XMS_ITS | Encounter Summary ---
Author Organization [facility] Address [address] [place] [address]. [place] [address] Care Team Providers Care Air Chipper Name Role Phone Annalisa Mark APRN, CNP Primary Care Provi miguel Unavailable Annalisa Mark APRN, CNP Unavailable Un available Jacob Carmona MD Unavailable [phone] Leonor Burgos MD Unavailable + Annalisa Mark APRN, CNP Unavailable Un available SabJacob sylvester MD Primary Care Provider Leonor Burgos MD Unavailable + [facility] Primary Care Provider Annalisa Mark APRN, CNP Unavailable Un available [place] Núñez MD Unavailable Leonor Burgos MD Unavailable + Annalisa Mark APRN, CNP Unavailable Un available Lisa Wright PA-C Primary Care Provider Lisa Wright PA-C Unavailable [phone] Chanel Asher PA-C Unavailable Lisa Wright PA-C Unavailable [phone] Encounter Details Date Type Department Care Team (Late st Contact Info) Description 09/12/2021 MyC Medical Advice [facility] Deborah [address] [facility] [address] [place] [address] Jacob Carmona MD [address] [place] [address] OCP (oral contraceptive pills) initiation Social History [...] 02/15/2019 Lack of Transportation (Non-Medical) No 02/15/2019 [place] Depression Scale Answer Date Recorded [place] Depression Score 2 09/21/2019 Last EPDS Self Harm Result Not on file 09/21 Education Answer Date Recorded What is the highest level of school you have completed or the highest degree you have received? 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 No / Unsure 08/29/2021 2:17 PM GAS MAIN AND LINE FITTER documented as of this encounter Miscellaneous Notes * Telephone Encounter - Mary Lou Petty RN - 09/12/2021 1:50 PM CST OCP sent in for 3 months. Advised to schedule annual in order to get further refills. Mary Lou Petty RN MAIN AND LINE FITTER documented in this encounter Plan of [...] Out C-difficile 09/10/2022 09/10/2022 023 5:27 PM GAS MAIN AND LINE FITTER C-difficile 09/10/2022 09/10/2022 10/10/2022 11:3 9 PM CDT Assessment Noted Time PHQ-9 Depression Total Score: 2 03/25/20 21 2:42 PM CDT documented as of this encounter Care Teams Air Chipper Relationship Specialty Start Date End Date Annalisa Mark APRN BAND NAILER PCP - General Nurse Practitioner 03/22/15 06/29/22 Jacob Carmona MD [address] [place] [address] PCP - General 06/30/22 08/28/22 [facility] - [address] [address] PCP - General 08/29/22 01/18/23 Lisa Wright PA-C [address] [place] [address] PCP - General Family Medicine 01/19/23 Annalisa Mark APRN BAND NAILER Assigned PCP 01/22/20 02/21/22 Jacob Carmona MD [address] [place] [address] Assigned OBGYN Provider 05/18/20 Leonor Burgos MD ARISE [address] [email or web address] [address] [place] [address] Assigned PCP 02/22/22 05/16/22 Annalisa Mark APRN BAND NAILER Assigned PCP 05/17/22 08/15/22 Leonor Burgos MD ARISE [address] [email or web address] [address] [place] [address] Assigned PCP 08/16/22 08/29/22 Annalisa Mark APRN BAND NAILER [address] [place] [address] Assigned PCP 08/30/22 11/21/22 [place] Núñez MD [address] [place] [address] 276 [place], [place] [address] Assigned Pulmonology Provider 09/13/22 05/17/24 Leonor Burgos MD ARISE [address] [employer] [address] [place], [place] [address] Assigned PCP 11/22/22 11/28/22 Deedee Annalisa JAMES PeacockN BAND NAILER Assigned PCP 11/29/22 01/23/23 Lisa Wright PA-C [address] [place] [address] Assigned PCP 01/24/23 04/17/24 Chanel Asher PA-C [address] [facility] 200 [place] [address] Assigned PCP 04/18/24 06/17/24 Lisa Wright PA-C [address] [place] [address] Assigned PCP 06/18/24 documented as of this encounter
--- OUTSIDE RECORDS SUMMARY | 2024-09-19 03:06 | XMS_ITS | Encounter Summary ---
Author Organization [facility] [place] Address [address] [place] [address]. [place] [address] Care Team Providers Care Director Of Retail Operations Name Role Phone Annalisa Mark APRN, CNP Primary Care Provi miguel Unavailable Annalisa Mark APRN, CNP Unavailable Un available Jacob Carmona MD Unavailable Leonor Burgos MD Unavailable + Annalisa Mark APRN, CNP Unavailable Un available SabJacob sylvester MD Primary Care Provider Leonor Burgos MD Unavailable + [facility] Primary Care Provider Annalisa Mark APRN, CNP Unavailable Un available [place] Núñez MD Unavailable Leonor Burgos MD Unavailable + Annalisa Mark APRN, CNP Unavailable Un available Lisa Wright PA-C Primary Care Provider Lisa Wright PA-C Unavailable [phone] Chanel Asher PA-C Unavailable [phone] Lisa Wright PA-C Unavailable [phone] Reason for Visit * Reason Onset Date Comments MyChart Communication 02/20/2022 Encounter Details Date Type Department Care Team (Latest Contact Info) Description 02/20/2022 [facility] Medical Advice M [address] [address] Leonor Burgos MD ARISE [address] [address] MyChart Communication Social History Tobacco Use Types [...] week 10/16/2021 How [facility] services? Patient declined 10/16/2021 Do you belong [...] Answer Date Recorded PHQ-2 Score 0 11/08/2021 [facility] [place] of Occupat ional Health - Occupational Stress [...] or slept in a fpc (including now)? No 10/16/2021 [place] Depression Scale Answer Date Recorded [place] Depression Score 2 09/21/2019 Last EPDS Self Harm Result Not on file 09/21 Education Answer Date Recorded What is the highest level of school you have completed or the highest degree you have received? 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 Not on file Not on file [...] Out C-difficile 09/10/2022 09/10/2022 023 5:27 PM GLEASON OPERATOR C-difficile 09/10/2022 09/10/2022 10/10/2022 11:3 9 PM CDT Assessment Noted Time PHQ-9 Depression Total Score: 4 10/18/19 22 10:05 AM CDT documented as of this encounter Care Teams Director Of Retail Operations Relationship Specialty Start Date End Date Annalisa Mark APRN CNP PCP - General Nurse Practitioner 03/22/15 06/29/22 Jacob Carmona MD [address] [place] [address] PCP - General 06/30/22 08/28/22 [facility] [address] [place] [address] PCP - General 08/29/22 01/18/23 Lisa Wright PA-C [address] [place] [address] PCP - General Family Medicine 01/19/23 Annalisa Mark APRN TYPING TEACHER Assigned PCP 01/22/20 02/21/22 Jacob Carmona MD [facility] [place] [address] Assigned OBGYN Provider 05/18/20 Leonor Burgos MD ARISE [address] [employer] [employer] [address] [place] [address] Assigned PCP 02/22/22 05/16/22 Annalisa Mark APRN TYPING TEACHER Assigned PCP 05/17/22 08/15/22 Leonor Burgos MD [place] [address] [place] [place] [address] Assigned PCP 08/16/22 08/29/22 Annalisa Mark APRN TYPING TEACHER [address] [place] [address] Assigned PCP 08/30/22 11/21/22 [place] Núñez MD [address] [place] [address] 276 [place] [address] Assigned Pulmonology Provider 09/13/22 05/17/24 Leonor Burgos MD ARISE [address] [place] [address] [place] [address] Assigned PCP 11/22/22 11/28/22 Annalisa Mark, POWER SWITCHBOARD OPERATOR TYPING TEACHER Assigned PCP 11/29/22 01/23/23 Lisa Wright PA-C [address] [place] [address] Assigned PCP 01/24/23 04/17/24 Chanel Asher PA-C [address] [address] Assigned PCP 04/18/24 06/17/24 Lisa Wright PA-C [address] [place] [address] Assigned PCP 06/18/24 documented as of this encounter
--- OUTSIDE RECORDS SUMMARY | 2024-09-19 03:07 | XMS_ITS | Encounter Summary ---
Author Organization [facility] Address [address] [place] [address]. [place] [address] Care Team Providers Care Astrophysics Teacher Name Role Phone Jacob Carmona MD Unavailable [place] Núñez MD Unavailable [phone] Lisa Wright PA-C Primary Care Provider [phone] Lisa Wright-Serina Unavailable [phone] Chanel Asher PA-C Unavailable Lisa Wright PA-C Unavailable [phone] Encounter Details Date Type Department Care Team (Late st Contact Info) Description 08/24/[address] [facility] Medical Advice [facility] Women's [address] [place] [address] Jacob Carmona MD [address] [place], [place] [address] Social History Tobacco Use Types Packs/Day Years [...] often do you attend chur ch or druze services? 1 to 4 times per year 01/19/2023 Do you belong to any clubs o r organizations such as adventism groups, unions, fraternal [...] Answer Date Recorded PHQ-2 Score 0 08/28/2023 [facility] - Occupational Stress Questionnaire Answer [...] exercise at this level? 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 Are you able to work this pt in this week for an appt? If so, where? Thanks. Geronimo Chapman, RN WINDER documented in this encounter Plan of Treatment Not on file documented as of this encounter Visit Diagnoses Not on filedocumented in this encounter Additional Health Concerns Assessment Noted Time PHQ-9 Depression Total Score: 0 11/20/19 10:04 AM CDT documented as of this encounter Care Teams Astrophysics Teacher Relationship Specialty Start Date End Date Lisa Wright PA-C [address] [place] [address] PCP - General Family Medicine 01/19/23 Jacob Carmona MD [address] [place] [address] Assigned OBGYN Provider 05/18/20 [place] Núñez MD [address] [facility] 276 [place] [address] Assigned Pulmonology Provider 09/13/22 05/17/24 Lisa Wright PA-C [address] [place] [phone] Assigned PCP 01/24/23 04/17/24 Chanel Asher PA-C 6565 [facility] 200 [place] [address] Assigned PCP 04/18/24 06/17/24 Lisa Wright PA-C [address] [place] [address] Assigned PCP 06/18/24 documented as of this encounter
--- OUTSIDE RECORDS SUMMARY | 2024-09-19 03:07 | XMS_ITS | Encounter Summary ---
Author Organization [facility] Address [facility] [place] [address] Care Team Providers Care Salad Maker Name Role Phone Annalisa Mark APRN, CNP Primary Care Provi miguel Unavailable Mukul Rivas PA-C Unavailable [phone] DeedeeAnnalisa dean APRN, CNP Unavailable Un available Mukul Rivas PA-C Unavailable [phone] Annalisa Mark APRN, CNP Unavailable Un available Jacob Carmona MD Unavailable [phone] Leonor Burgos MD Unavailable + Annalisa Mark APRN, CNP Unavailable Un available Jacob Carmona MD Primary Care Provider Leonor Burgos MD Unavailable + [facility] Primary Care Provider Annalisa Mark APRN, CNP Unavailable Un available [place] Núñez MD Unavailable [phone] Leonor Burgos MD Unavailable + Deedee, Annalisa Madonna PHILOSOPHY LECTURER TRUST ADVISOR Unavailable Un available KyleNormLisakendall Moore PA-C Primary Care Provider Kyle Lisa Moore PA-C Unavailable [phone] Lb Chanel Valverde PA-C Unavailable [phone] Norm Wrightkendall Moore PA-C Unavailable [phone] Reason for Visit * Reason Onset Date Comments Care 09/12/2019 Encounter Details Date Type Department Care Team (Late st Contact Info) Description 09/12/2019 MyC Medical Advice [facility] [address] [facility] [address] [place] [address] Jacob Carmona MD [address] [place] [address] Care Social History Tobacco Use [...] PM CDT Legal Sex Female 3:18 AM AIRBORNE AND AIR DELIVERY SPECIALIST Gender Identity Female 03/25/2021 2:01 PM CDT Sexual Orientation Straight 03/25/2021 2: 01 PM CDT 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 Not on file [...] Out C-difficile 09/10/2022 09/10/2022 023 5:27 PM AIRBORNE AND AIR DELIVERY SPECIALIST C-difficile 09/10/2022 09/10/2022 10/10/2022 11:3 9 PM CDT Assessment Noted Time PHQ-9 Depression Total Score: 3 12/08/19 19 7:05 AM CDT documented as of this encounter Care Teams Salad Maker Relationship Specialty Start Date End Date Annalisa Mark APRN TRUST ADVISOR PCP - General Nurse Practitioner 03/22/15 06/29/22 Jacob Carmona MD [address] [place] [address] PCP - General 06/30/22 08/28/22 [facility] [address] [place] [address] PCP - General 08/29/22 01/18/23 Lisa Wright PA-C [address] [place] [phone] PCP - General Family Medicine 01/19/23 Mukul Rivas PA-C [address] [place] [id number] Assigned PCP 07/03/19 11/19/19 Annalisa Mark APRN TRUST ADVISOR Assigned PCP 11/20/19 12/10/19 Mukul Rivas PA-C [address] [place] [address] Assigned PCP 12/11/19 01/21/20 Annalisa Mark APRN TRUST ADVISOR Assigned PCP 01/22/20 02/21/22 Jacob Carmona MD [address] [place] [address] Assigned OBGYN Provider 05/18/20 Leonor Burgos MD ARISE [address] [address] Assigned PCP 02/22/22 05/16/22 Annalisa Mark APRN TRUST ADVISOR Assigned PCP 05/17/22 08/15/22 Leonor Burgos MD ARISE [address] [employer] [address] [place] [address] Assigned PCP 08/16/22 08/29/22 Annalisa Mark APRN TRUST ADVISOR [address] [place] [address] Assigned PCP 08/30/22 11/21/22 [place] Núñez MD [address] [facility] 276 [place] [address] Assigned Pulmonology Provider 09/13/22 05/17/24 Leonor Burgos MD ARISE [address] [facility] 207 [place] [address] Assigned PCP 11/22/22 11/28/22 Annalisa Mark APRN TRUST ADVISOR Assigned PCP 11/29/22 01/23/23 Lisa Wright PA-C [address] [place] [address] Assigned PCP 01/24/23 04/17/24 Chanel Asher PA-C [address] [facility] 200 [place] [address] Assigned PCP 04/18/24 06/17/24 Lisa Wright PA-C [address] [place] [address] Assigned PCP 06/18/24 documented as of this encounter
--- OUTSIDE RECORDS SUMMARY | 2024-09-19 03:07 | XMS_ITS | Encounter Summary ---
Author Organization [facility] Address [address] [place] [address]. [place] [address] Care Team Providers Care Principal Product Manager Name Role Phone Jacob Carmona MD Unavailable [place] Núñez MD Unavailable Lisa Wright PA-C Primary Care Provider Lisa Wright-Serina Unavailable Chanel Asher PA-C Unavailable Lisa Wright PA-C Unavailable Encounter Details Date Type Department Care Team (Late st Contact Info) Description 08/02/2023 [facility] Women's [address] [place] [address] Jacob Carmona MD [address] [place], [place] [address] Social History Tobacco Use Types Packs/Day Years [...] often do you attend chur ch or uatsdin services? 1 to 4 times per year 01/19/2023 Do you belong to any clubs o r organizations such as mu-ism groups, unions, fraternal [...] Answer Date Recorded PHQ-2 Score 0 11/19/2022 [facility] - Occupational Stress Questionnaire Answer Date [...] exercise at this level? 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 Not on file Not on damion e documented as of this encounter Plan of Treatment Not on file documented as of this encounter Visit Diagnoses Not on filedocumented in this encounter Additional Health Concerns Assessment Noted Time PHQ-9 Depression Total Score: 0 11/20/19 10:04 AM CDT documented as of this encounter Care Teams Principal Product Manager Relationship Specialty Start Date End Date Kyle, Lisa M, PA-C [address] [place] [phone] PCP - General Family Medicine 01/19/23 Jacob Carmona MD [address] [place], [place] [address] Assigned OBGYN Provider 05/18/20 [place] Núñez MD [address] [facility] 276 [place], [place] [address] Assigned Pulmonology Provider 09/13/22 05/17/24 Lisa Wright PA-C [address] [place] [address] Assigned PCP 01/24/23 04/17/24 Chanel Asher PA-C [address] [address] Assigned PCP 04/18/24 06/17/24 Lisa Wright PA-C [address] [place] [address] Assigned PCP 06/18/24 documented as of this encounter
--- OUTSIDE RECORDS SUMMARY | 2024-09-19 03:07 | XMS_ITS | Encounter Summary ---
Author Organization [facility] Address [address] [place] [address]. [place] [address] Care Team Providers Care Network Control Technician Name Role Phone Annalisa Mark APRN, CNP Primary Care Provi miguel Unavailable Annalisa Mark APRN, CNP Unavailable Un available Jacob Carmona MD Unavailable [phone] Leonor Burgos MD Unavailable + Annalisa Mark APRN, CNP Unavailable Un available SabJacob sylvester MD Primary Care Provider Leonor Burgos MD Unavailable + [facility] Primary Care Provider Annalisa Mark APRN, CNP Unavailable Un available [place] Núñez MD Unavailable Leonor Burgos MD Unavailable + Annalisa Mark APRN, CNP Unavailable Un available Lisa Wright PA-C Primary Care Provider [phone] Lisa Wright PA-C Unavailable [phone] Chanel Asher PA-C Unavailable [phone] Lisa Wright PA-C Unavailable [phone] Reason for Visit * Reason Onset Date Comments MyChart Communication 02/15/2020 Encounter Details Date Type Department Care Team (Latest Contact Info) Description 02/15/2020 MyC Medical Advice [address] [address] Annalisa Mark, JADEN TRUCK DRIVER RUBBISH COLLECTOR MyChart Communication Social History Tobacco Use Types [...] 02/15/2019 Lack of Transportation (Non-Medical) No 02/15/2019 [place] Depression Scale Answer Date Recorded [place] Depression Score 2 09/21/2019 Last EPDS Self Harm Result Not on file 09/21 Education Answer Date Recorded What is the highest level of school you have completed or the highest degree you have received? 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 Not on file [...] Out C-difficile 09/10/2022 09/10/2022 023 5:27 PM COOLER WORKER C-difficile 09/10/2022 09/10/2022 10/10/2022 11:3 9 PM CDT Assessment Noted Time PHQ-9 Depression Total Score: 2 12/08/19 20 7:04 AM CDT documented as of this encounter Care Teams Network Control Technician Relationship Specialty Start Date End Date Annalisa Mark APRN TRUCK DRIVER RUBBISH COLLECTOR PCP - General Nurse Practitioner 03/22/15 06/29/22 Jacob Carmona MD [address] [place] [address] PCP - General 06/30/22 08/28/22 [facility] [address] [place] [address] PCP - General 08/29/22 01/18/23 Lisa Wright PA-C [address] [place] [phone] PCP - General Family Medicine 01/19/23 Annalisa Mark APRN TRUCK DRIVER RUBBISH COLLECTOR Assigned PCP 01/22/20 02/21/22 Jacob Carmona MD [address] [place] [address] Assigned OBGYN Provider 05/18/20 Leonor Burgos MD ARISE [address] [employer] [address] [place] [address] Assigned PCP 02/22/22 05/16/22 Annalisa Mark APRN TRUCK DRIVER RUBBISH COLLECTOR Assigned PCP 05/17/22 08/15/22 Leonor Burgos MD ARISE [address] [place] [address] Assigned PCP 08/16/22 08/29/22 Annalisa Mark APRN TRUCK DRIVER RUBBISH COLLECTOR [address] [place] [address] Assigned PCP 08/30/22 11/21/22 [place] Núñez MD [address] [facility] 276 [place] [address] Assigned Pulmonology Provider 09/13/22 05/17/24 Leonor Burgos MD ARISE [address] [place] [address] Assigned PCP 11/22/22 11/28/22 Annalisa Mark APRN TRUCK DRIVER RUBBISH COLLECTOR Assigned PCP 11/29/22 01/23/23 Lisa Wright PA-C [address] [place] [address] Assigned PCP 01/24/23 04/17/24 Chanel Asher PA-C [address] [facility] 200 [place] [address] Assigned PCP 04/18/24 06/17/24 Lisa Wright PA-C [address] [place] [address] Assigned PCP 06/18/24 documented as of this encounter
--- OUTSIDE RECORDS SUMMARY | 2024-09-19 03:07 | XMS_ITS | Encounter Summary ---
Author Organization [place] Address [facility] [place] [address] Care Team Providers Care Ski Tow Operator Name Role Phone Annalisa Mark APRN, CNP Primary Care Provi miguel Unavailable Mukul Rivas PA-C Unavailable [phone] DeedeeAnnalisa dean APRN, CNP Unavailable Un available Mukul Riavs PA-C Unavailable + [phone] Annalisa Mark APRN, CNP Unavailable Un available Jacob Carmona MD Unavailable [phone] Leonor Burgos MD Unavailable + Annalisa Mark APRN, CNP Unavailable Un available Jacob Carmona MD Primary Care Provider Leonor Burgos MD Unavailable + [facility] Primary Care Provider Annalisa Mark APRN, CNP Unavailable Un available Curtis Núñez MD Unavailable [phone] Leonor Burgos MD Unavailable + Deedee, Annalisa Madonna FEED ELEVATOR WORKER HPLC CHEMIST Unavailable Un available Kyle Lisakendall Moore PA-C Primary Care Provider Lisa Wright PA-C Unavailable [phone] Chanel Asher PA-C Unavailable [phone] KyleNormLisakendall Moore PA-C Unavailable [phone] Reason for Visit * Reason Onset Date Comments Breast Problem 10/01/2019 Encounter Details Date Type Department Care Team (Late st Contact Info) Description 10/01/2019 MyC Medical Advice [facility] [address] [facility] [address] [place] [address] Jacob Carmona MD [address] [place] [address] Breast Problem Social History Tobacco Use Types [...] 02/15/2019 Lack of Transportation (Non-Medical) No 02/15/2019 [place] Depression Scale Answer Date Recorded [place] Depression Score 2 09/21/2019 Last EPDS Self Harm Result Not on file 09/21 Education Answer Date Recorded What is the highest level of school you have completed or the highest degree you have received? 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 Not on file [...] C-difficile 09/10/2022 09/10/2022 023 5:27 PM SENIOR MEDIA DIRECTOR C-difficile 09/10/2022 09/10/2022 10/10/2022 11:3 9 PM CDT Assessment Noted Time PHQ-9 Depression Total Score: 3 12/08/19 19 7:05 AM CDT documented as of this encounter Care Teams Ski Tow Operator Relationship Specialty Start Date End Date Annalisa Mark APRN HPLC CHEMIST PCP - General Nurse Practitioner 03/22/15 06/29/22 Jacob Carmona MD [address] [place] [address] PCP - General 06/30/22 08/28/22 [facility] [address] [place] [address] PCP - General 08/29/22 01/18/23 Lisa Wright PA-C [address] [place] [address] PCP - General Family Medicine 01/19/23 Mukul Rivas PA-C [address] [place] [address], [place] [address] Assigned PCP 07/03/19 11/19/19 Annalisa Mark APRN HPLC CHEMIST Assigned PCP 11/20/19 12/10/19 Mukul Rivas PA-C [address] [place] [address], [place] [address] Assigned PCP 12/11/19 01/21/20 Annalisa Mark APRN HPLC CHEMIST Assigned PCP 01/22/20 02/21/22 Jacob Carmona MD [address] [place] [address] Assigned OBGYN Provider 05/18/20 Leonor Burgos MD [place] [address] [address] Assigned PCP 02/22/22 05/16/22 Annalisa Mark APRN HPLC CHEMIST Assigned PCP 05/17/22 08/15/22 Leonor Burgos MD [place] [address] [place] [address] Assigned PCP 08/16/22 08/29/22 Annalisa Mark APRN HPLC CHEMIST [address] [place] [address] Assigned PCP 08/30/22 11/21/22 Curtis Núñez MD [address] [facility] 276 [place] [address] Assigned Pulmonology Provider 09/13/22 05/17/24 Leonor Burgos MD [place] [address] [facility] 207 [place] [address] Assigned PCP 11/22/22 11/28/22 Annalisa Mark APRN HPLC CHEMIST Assigned PCP 11/29/22 01/23/23 Lisa Wright PA-C [address] [place] [address] Assigned PCP 01/24/23 04/17/24 Chanel Asher PA-C [address] [facility] 200 [place], [place] [address] Assigned PCP 04/18/24 06/17/24 Lisa Wright PA-C [address] [place] [address] Assigned PCP 06/18/24 documented as of this encounter
--- OUTSIDE RECORDS SUMMARY | 2024-09-19 03:07 | XMS_ITS | Encounter Summary ---
Author Organization [place] Address [address] [place] [address]. [place] [address] Care Team Providers Care Scale Expert Name Role Phone Jacob Carmona MD Unavailable [phone] [facility] Primary Care Provider Curtis Núñez MD Unavailable [phone] Leonor Burgos MD Unavailable + Annalisa Mark APRN ENGLISH DIVISION CHAIR Unavailable Un available Lisa Wright-C Primary Care Provider Lisa Wright PA-C Unavailable [phone] Chanel Asher PA-C Unavailable Lisa Wright-C Unavailable [phone] Encounter Details Date Type Department Care Team (Late st Contact Info) Description 11/23/2022 MyC Medical Advice [facility] [address] [place] [address] Jacob Carmona MD [address] [place], [place] [address] Social History Tobacco Use Types Packs/Day Years [...] How often do you attend chur or hinduism services? Patient declined 10/16/2021 Do you belong to any clubs o r organizations such as uatsdin groups, unions, fraternal [...] PHQ-2 Score 0 11/19/2022 [facility] of Occupat ional Health - Occupational [...] in a retirement (including now)? 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 Not on file Not on file [...] documented as of this encounter Care Teams Scale Expert Relationship Specialty Start Date End Date Clinic - [facility] [address] [place], [place] [id number] PCP - General 08/29/22 01/18/23 Lisa Wright PA-C [address] [place] [address] PCP - General Family Medicine 01/19/23 Jacob Carmona MD [address] [place] [address] Assigned OBGYN Provider 05/18/20 Curtis Núñez MD [address] [facility] 276 [place], [place] [address] Assigned Pulmonology Provider 09/13/22 05/17/24 Leonor Burgos MD [place] [address] [facility] 207 [place] [address] Assigned PCP 11/22/22 11/28/22 Annalisa Mark APRN ENGLISH DIVISION CHAIR Assigned PCP 11/29/22 01/23/23 Lisa Wright PA-C [address] [place] [address] Assigned PCP 01/24/23 04/17/24 Chanel Asher PA-C [address] [facility] 200 [place] [address] Assigned PCP 04/18/24 06/17/24 Lisa Wright PA-C [address] [place] [place] [address] Assigned PCP 06/18/24 documented as of this encounter
--- OUTSIDE RECORDS SUMMARY | 2024-09-19 03:07 | XMS_ITS | Encounter Summary ---
Author Organization [place] Address [facility] [place] [address] Care Team Providers Care Able Bodied Seaman Name Role Phone Annalisa Mark APRN, CNP Primary Care Provi miguel Unavailable Mukul Rivas PA-C Unavailable [phone] DeedeeAnnalisa dean APRN, CNP Unavailable Un available Mukul Rivas PA-C Unavailable + [phone] Annalisa Mark APRN, CNP Unavailable Un available Jacob Carmona MD Unavailable [phone] Leonor Burgos MD Unavailable + Annalisa Mark APRN, CNP Unavailable Un available Jacob Carmona MD Primary Care Provider Leonor Burgos MD Unavailable + [facility] Primary Care Provider Annalisa Mark APRN, CNP Unavailable Un available Curtis Núñez MD Unavailable [phone] Leonor Burgos MD Unavailable + Deedee, Annalisa Madonna STEEL INSPECTOR WORKFORCE DEVELOPMENT PROGRAM DIRECTOR Unavailable Un available Norm Wrightkendall Moore PA-C Primary Care Provider Kyle Lisa Moore PA-C Unavailable [phone] Lb Chanel Valverde PA-C Unavailable [phone] Norm Wrightkendall Moore PA-C Unavailable [phone] Reason for Visit * Reason Onset Date Comments Care 07/26/2019 Encounter Details Date Type Department Care Team (Late st Contact Info) Description 07/26/2019 MyC Medical Advice [facility] [address] [facility] [address] [place] [address] Jacob Carmona MD [address] [place] [address] Care Social History Tobacco Use [...] PM CDT Legal Sex Female 3:18 AM WEIR FISHERMAN Gender Identity Female 03/25/2021 2:01 PM CDT Sexual Orientation Straight 03/25/2021 2: 01 PM CDT 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 Not on file [...] Out C-difficile 09/10/2022 09/10/2022 023 5:27 PM WEIR FISHERMAN C-difficile 09/10/2022 09/10/2022 10/10/2022 11:3 9 PM CDT Assessment Noted Time PHQ-9 Depression Total Score: 3 12/08/19 19 7:05 AM CDT documented as of this encounter Care Teams Able Bodied Seaman Relationship Specialty Start Date End Date Annalisa Mark APRN WORKFORCE DEVELOPMENT PROGRAM DIRECTOR PCP - General Nurse Practitioner 03/22/15 06/29/22 Jacob Carmona MD [address] [place] [address] PCP - General 06/30/22 08/28/22 [facility] [address] [place] [address] PCP - General 08/29/22 01/18/23 Lisa Wright PA-C [address] [place] [address] PCP - General Family Medicine 01/19/23 Mukul Rivas PA-C [address] [place] [id number] Assigned PCP 07/03/19 11/19/19 Annalisa Mark APRN WORKFORCE DEVELOPMENT PROGRAM DIRECTOR Assigned PCP 11/20/19 12/10/19 Mukul Rivas PA-C [address] [place] [address] Assigned PCP 12/11/19 01/21/20 Annalisa Mark APRN WORKFORCE DEVELOPMENT PROGRAM DIRECTOR Assigned PCP 01/22/20 02/21/22 Jacob Carmona MD [address] [place] [address] Assigned OBGYN Provider 05/18/20 Leonor Burgos MD [place] [address] [place] [address] [address] Assigned PCP 02/22/22 05/16/22 Annalisa Mark APRN WORKFORCE DEVELOPMENT PROGRAM DIRECTOR Assigned PCP 05/17/22 08/15/22 Leonor Burgos MD [place] [address] [employer] 207 [place] [address] Assigned PCP 08/16/22 08/29/22 Annalisa Mark APRN WORKFORCE DEVELOPMENT PROGRAM DIRECTOR [address] [place] [address] Assigned PCP 08/30/22 11/21/22 Curtis Núñez MD [address] [facility] 276 [place] [address] Assigned Pulmonology Provider 09/13/22 05/17/24 Leonor Burgos MD [place] [address]447 [facility] 207 [place] [address] Assigned PCP 11/22/22 11/28/22 Annalisa Mark APRN WORKFORCE DEVELOPMENT PROGRAM DIRECTOR Assigned PCP 11/29/22 01/23/23 Lisa Wright PA-C [address] [place] [address] Assigned PCP 01/24/23 04/17/24 Chanel Asher PA-C 6565 [facility] 200 [place] [address] Assigned PCP 04/18/24 06/17/24 Lisa Wright PA-C [address] [place] [address] Assigned PCP 06/18/24 documented as of this encounter
--- OUTSIDE RECORDS SUMMARY | 2024-09-19 03:07 | XMS_ITS | Encounter Summary ---
Author Organization [place] Address [facility] [place] [address] Care Team Providers Care City Letter Carrier Name Role Phone Annalisa Mark APRN, CNP Primary Care Provi miguel Unavailable Mukul Rivas PA-C Unavailable [phone] DeedeeAnnalisa dean APRN, CNP Unavailable Un available Mukul Rivas PA-C Unavailable + [phone] Annalisa Mark APRN, CNP Unavailable Un available Jacob Carmona MD Unavailable [phone] Leonor Burgos MD Unavailable + Annalisa Mark APRN, CNP Unavailable Un available Jacob Carmona MD Primary Care Provider Leonor Burgos MD Unavailable + [facility] Primary Care Provider Annalisa Mark APRN, CNP Unavailable Un available Curtis Núñez MD Unavailable [phone] Leonor Burgos MD Unavailable + Annalisa Mark APRN, CNP Unavailable Un available Kyle Lisakendall Moore PA-C Primary Care Provider Kyle Lisa Moore PA-C Unavailable [phone] Chanel Asher PA-C Unavailable [phone] KyleNormLisakendall Moore PA-C Unavailable [phone] Encounter Details Date Type Department Care Team (Late st Contact Info) Description 09/22/2019 MyC Medical Advice [facility] [address] [facility] [address] [place] [address] Jacob Carmona MD [address] [place] [address] Social History Tobacco Use Types [...] 02/15/2019 Lack of Transportation (Non-Medical) No 02/15/2019 [place] Depression Scale Answer Date Recorded [place] Depression Score 2 09/21/2019 Last EPDS Self Harm Result Not on file 09/21 Education Answer Date Recorded What is the highest level of school you have completed or the highest degree you have received? 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 Not on file [...] Out C-difficile 09/10/2022 09/10/2022 023 5:27 PM COUNTY BAILIFF C-difficile 09/10/2022 09/10/2022 10/10/2022 11:3 9 PM CDT Assessment Noted Time PHQ-9 Depression Total Score: 3 12/08/19 19 7:05 AM CDT documented as of this encounter Care Teams City Letter Carrier Relationship Specialty Start Date End Date Annalisa Mark APRN CHILD CARE COORDINATOR PCP - General Nurse Practitioner 03/22/15 06/29/22 Jacob Carmona MD [address] [place] [address] PCP - General 06/30/22 08/28/22 Clinic - [facility] [address] [place], [place] [id number] PCP - General 08/29/22 01/18/23 Lisa Wright PA-C [address] [place] [phone] PCP - General Family Medicine 01/19/23 Mukul Rivas PA-C [address] [place] [address] Assigned PCP 07/03/19 11/19/19 Annalisa Mark APRN CHILD CARE COORDINATOR Assigned PCP 11/20/19 12/10/19 Mukul Rivas PA-C [address] [place] [address] Assigned PCP 12/11/19 01/21/20 Annalisa Mark APRN CHILD CARE COORDINATOR Assigned PCP 01/22/20 02/21/22 Jacob Carmona MD [address] [place] [address] Assigned OBGYN Provider 05/18/20 Leonor Burgos MD [place] [address] [employer] [address] [place] [address] Assigned PCP 02/22/22 05/16/22 Annalisa Mark APRN CHILD CARE COORDINATOR Assigned PCP 05/17/22 08/15/22 Leonor Burgos MD [place] [address] [employer] [address] 207 [place] [address] Assigned PCP 08/16/22 08/29/22 Annalisa Mark APRN CHILD CARE COORDINATOR [address] [place] [address] Assigned PCP 08/30/22 11/21/22 Curtis Núñez MD 420 [facility] 276 [place] [address] Assigned Pulmonology Provider 09/13/22 05/17/24 Leonor Burgos MD [place] [address]447 [facility] 207 [place] [address] Assigned PCP 11/22/22 11/28/22 Annalisa Mark APRN CHILD CARE COORDINATOR Assigned PCP 11/29/22 01/23/23 Lisa Wright PA-C [address] [place] [address] Assigned PCP 01/24/23 04/17/24 Chanel Asher PA-C 6565 [facility] 200 [place] [address] Assigned PCP 04/18/24 06/17/24 Lisa Wright PA-C [address] [place] [address] Assigned PCP 06/18/24 documented as of this encounter
--- OUTSIDE RECORDS SUMMARY | 2024-09-19 03:07 | XMS_ITS | Encounter Summary ---
Author Organization [place] Address [address] [place] [address]. [place] [address] Care Team Providers Care Test Puller Name Role Phone Jacob Carmona MD Unavailable Lisa Wright PA-C Primary Care Provider Lisa Wright PA-C Unavailable [phone] Encounter Details Date Type Department Care Team (Late st Contact Info) Description 09/15/2024 MyC Medical Advice [address] 200 [place] [address] Jacob Carmona MD [address] [place] [address] Social History Tobacco Use Types Packs/Day Years Used Date Smoking Tobacco: Never Passive Smoke Exposure: Never Smokeless Tobacco: Never Alcohol Use Standard Drinks/Week Comments Not Currently 0 (1 standard drink = 0.6 oz pur e alcohol) very occasional Social Connection and Isolation Panel [NHANES] A nswer Date Recorded Frequency of Communication with Friends and Fami ly Not on file 02/16/2024 How often do you get together with friends or re latives? Once a week 02/16/2024 Attends Druze Services Not on file 02/15 Active Member [...] Answer Date Recorded PHQ-2 Score 0 02/16/2024 [facility] of Occupat ional Health - Occupational Stress [...] exercise at this level? 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 Not on file Not on damion e documented as of this encounter Plan of Treatment Not on file documented as of this encounter Visit Diagnoses Not on filedocumented in this encounter Additional Health Concerns Assessment Noted Time PHQ-9 Depression Total Score: 5 02/16/20 24 6:57 AM CDT documented as of this encounter Care Teams Test Puller Relationship Specialty Start Date End Date Lisa Wright PA-C [address] [place] [address] PCP - General Family Medicine 01/19/23 Jacob Carmona MD [address] [place] [address] Assigned OBGYN Provider 05/18/20 Lisa Wright PA-C [address] [place] [address] Assigned PCP 06/18/24 documented as of this encounter
--- OUTSIDE RECORDS SUMMARY | 2024-09-19 03:07 | XMS_ITS | Encounter Summary ---
Author Organization [place] Address [facility] [place] [address] Care Team Providers Care Radio Rigger Name Role Phone Annalisa Mark APRN, CNP Primary Care Provi miguel Unavailable Mukul Rivas PA-C Unavailable [phone] DeedeeAnnalisa dean APRN, CNP Unavailable Un available Mukul Rivas PA-C Unavailable + [phone] Annalisa Mark APRN, CNP Unavailable Un available Jacob Carmona MD Unavailable [phone] Leonor Burgos MD Unavailable + Annalisa Mark APRN, CNP Unavailable Un available Jacob Carmona MD Primary Care Provider Leonor Burgos MD Unavailable + [facility] Primary Care Provider Annalisa Mark APRN, CNP Unavailable Un available Curtis Núñez MD Unavailable [phone] Leonor Burgos MD Unavailable + Deedee, Annalisa Madonna ROUGH ROUNDER RACE RELATIONS ADVISER Unavailable Un available Norm Wrightkendall Moore PA-C Primary Care Provider [phone] Kyle Lisa Moore PA-C Unavailable [phone] Lb Chanel Valverde PA-C Unavailable [phone] Angelica Wrighttana Moore PA-C Unavailable [phone] Encounter Details Date Type Department Care Team (Late st Contact Info) Description 07/25/2019 MyC Medical Advice [facility] [address] [facility] [address] [place] [address] Jacob Carmona MD [address] [place] [address] Social History Tobacco Use Types [...] PM CDT Legal Sex Female 3:18 AM BOOK SEWER Gender Identity Female 03/25/2021 2:01 PM CDT Sexual Orientation Straight 03/25/2021 2: 01 PM CDT 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 Not on file [...] Out C-difficile 09/10/2022 09/10/2022 023 5:27 PM BOOK SEWER C-difficile 09/10/2022 09/10/2022 10/10/2022 11:3 9 PM CDT Assessment Noted Time PHQ-9 Depression Total Score: 3 12/08/19 19 7:05 AM CDT documented as of this encounter Care Teams Radio Rigger Relationship Specialty Start Date End Date Annalisa Mark APRN RACE RELATIONS ADVISER PCP - General Nurse Practitioner 03/22/15 06/29/22 Jacob Carmona MD [address] [place] [address] PCP - General 06/30/22 08/28/22 [facility] [address] [place] [address] PCP - General 08/29/22 01/18/23 Lisa Wright PA-C [address] [place] [address] PCP - General Family Medicine 01/19/23 Mukul Rivas PA-C [address] [place] [address] Assigned PCP 07/03/19 11/19/19 Annalisa Mark APRN RACE RELATIONS ADVISER Assigned PCP 11/20/19 12/10/19 Mukul Rivas PA-C [address] [place] [address] Assigned PCP 12/11/19 01/21/20 Annalisa Mark APRN RACE RELATIONS ADVISER Assigned PCP 01/22/20 02/21/22 Jacob Carmona MD 303 [place] [address] Assigned OBGYN Provider 05/18/20 Leonor Burgos MD [place] [address] [employer] [address] [place] [address] Assigned PCP 02/22/22 05/16/22 Annalisa Mark APRN RACE RELATIONS ADVISER Assigned PCP 05/17/22 08/15/22 Leonor Burgos MD [place] [address] [employer] [address] [place] [address] Assigned PCP 08/16/22 08/29/22 Annalisa Mark APRN RACE RELATIONS ADVISER [address] [place] [address] Assigned PCP 08/30/22 11/21/22 Curtis Núñez MD 420 [facility] 276 [place] [address] Assigned Pulmonology Provider 09/13/22 05/17/24 Leonor Burgos MD [place] [address] [place] [address] 207 [place] [address] Assigned PCP 11/22/22 11/28/22 Annalisa Mark APRN RACE RELATIONS ADVISER Assigned PCP 11/29/22 01/23/23 Lisa Wright PA-C [address] [place] [address] Assigned PCP 01/24/23 04/17/24 Chanel Asher PA-C 6565 [facility] 200 [place], [place] [address] Assigned PCP 04/18/24 06/17/24 Lisa Wright PA-C [address] [place] [address] Assigned PCP 06/18/24 documented as of this encounter
--- OUTSIDE RECORDS SUMMARY | 2024-09-19 03:07 | XMS_ITS | Encounter Summary ---
Author Organization [place] Address [address] [place] [address]. [place] [address] Care Team Providers Care Air And Missile Defense Crewmember Name Role Phone Jacob Carmona MD Unavailable Lisa Wright PA-C Primary Care Provider [phone] Lisa Wright PA-C Unavailable [phone] Reason for Visit * Reason Comments Medication Refill Encounter Details Date Type Department Care Team (Late st Contact Info) Description 09/07/[address] [address] Chanel Asher PA-C 7065 [facility] 200 [place], [place] [address] Medication Refill Social History Tobacco Use Types [...] re latives? Once a week 02/16/2024 Attends L[employer] Services Not on file 02/15 Active Member [...] Answer Date Recorded PHQ-2 Score 0 02/16/2024 [facility] of Occupat ional Health - Occupational Stress [...] exercise at this level? 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 Not on file Not on damion e documented as of this encounter Plan of Treatment Not on file documented as of this encounter Visit Diagnoses Diagnosis Subclinical hypothyroidism Other specified acquired hypothyroidism documented in this encounter Additional Health Concerns Assessment Noted Time PHQ-9 Depression Total Score: 5 02/16/20 24 6:57 AM CDT documented as of this encounter Care Teams Air And Missile Defense Crewmember Relationship Specialty Start Date End Date Lisa Wright [facility]-C [address] [facility] [place] [address] PCP - General Family Medicine 01/19/23 Jacob Carmona MD [address] [place] [address] Assigned OBGYN Provider 05/18/20 Lisa Wright PA-C [address] [place] [address] Assigned PCP 06/18/24 documented as of this encounter
--- OUTSIDE RECORDS SUMMARY | 2024-09-19 03:07 | XMS_ITS | Encounter Summary ---
Author Organization [place] Address [address] [place] [address]. [place] [address] Care Team Providers Care Adult Care Provider Name Role Phone Jacob Carmona MD Unavailable [facility] Primary Care Provider Curtis Núñez MD Unavailable Annalisa Mark APRN ELECTRON BEAM PHOTO MASK MAKER Unavailable Un available Lisa Wright PA-C Primary Care Provider Lisa Wright PA-C Unavailable [phone] Chanel Asher PA-C Unavailable [phone] Lisa Wright PA-C Unavailable [phone] Encounter Details Date Type Department Care Team (Late st Contact Info) Description 01/02/2023 MyC Medical Advice [facility] [address] [place] [address] Rose Proctor PA-C [address] [place], [place] [id number] Social History Tobacco Use Types Packs/Day Years [...] week 10/16/2021 How often do you attend [facility] or yazidism services? Patient declined 10/16/2021 Do you belong to any clubs o r organizations such as religious groups, unions, fraternal [...] Answer Date Recorded PHQ-2 Score 0 11/19/2022 [facility] - Occupational Stress Questionnaire [...] money to buy more. Never true 10/17/19 Within the past 12 months, t he [...] or slept in a intermediate (including now)? No 10/16/2021 [place] Depression Scale Answer Date Recorded [place] Depression Score 2 09/21/2019 Last EPDS Self Harm Result Not on file 09/21 Education Answer Date Recorded What is the highest level of school you have completed or the highest degree you have received? 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 Not on file Not on file [...] Noted Time PHQ-9 Depression Total Score: 0 04/26/20 23 10:04 AM CDT documented as of this encounter Care Teams Adult Care Provider Relationship Specialty Start Date End Date Clinic - [facility] [address] [place], [place] [phone] PCP - General 08/29/22 01/18/23 Lisa Wright PA-C [address] [place] [phone] PCP - General Family Medicine 01/19/23 Jacob Carmona MD [address] [place], [place] [address] Assigned OBGYN Provider 05/18/20 Curtis Núñez MD [address] [place] [address] 276 [place], [place] [address] Assigned Pulmonology Provider 09/13/22 05/17/24 Annalisa Mrak APRN [facility] Assigned PCP 11/29/22 01/23/23 Lisa Wright PA-C [address] [place] [address] Assigned PCP 01/24/23 04/17/24 Chanel Asher PA-C [address] [address] Assigned PCP 04/18/24 06/17/24 Lisa Wright PA-C [address] [place] [address] Assigned PCP 06/18/24 documented as of this encounter
--- OUTSIDE RECORDS SUMMARY | 2024-09-19 03:07 | XMS_ITS | Encounter Summary ---
Author Organization [place] Address [address] [place] [address]. [place] [address] Care Team Providers Care Botany Laboratory Assistant Name Role Phone Annalisa Mark APRN, CNP Primary Care Provi miguel Unavailable Annalisa Mark APRN, CNP Unavailable Un available Jacob Carmona MD Unavailable Leonor Burgos MD Unavailable + Annalisa Mark APRN, CNP Unavailable Un available SabJacob sylvester MD Primary Care Provider Leonor Burgos MD Unavailable + [facility] Primary Care Provider Annalisa Mark APRN, CNP Unavailable Un available Curtis Núñez MD Unavailable Leonor Burgos MD Unavailable + Annalisa Mark APRN, CNP Unavailable Un available Lisa Wright PA-C Primary Care Provider [phone] Lisa Wright PA-C Unavailable [phone] Chanel Asher PA-C Unavailable Lisa Wright PA-C Unavailable [phone] Encounter Details Date Type Department Care Team (Late st Contact Info) Description 04/26/2020 MyC Medical Advice [facility] [address] [place] [phone] Shirlene Annalise Taqueria, BEAM DYER RECESSED VAT [facility] [address] [place] [address] Social History Tobacco Use Types Packs/Day Years [...] 02/15/2019 Lack of Transportation (Non-Medical) No 02/15/2019 [place] Depression Scale Answer Date Recorded [place] Depression Score 2 09/21/2019 Last EPDS Self Harm Result Not on file 09/21 Education Answer Date Recorded What is the highest level of school you have completed or the highest degree you have received? 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 Please [...] Out C-difficile 09/10/2022 09/10/2022 023 5:27 PM FAMILY CONSUMER SCIENCE FCS TEACHER C-difficile 09/10/2022 09/10/2022 10/10/2022 11:3 9 PM CDT Assessment Noted Time PHQ-9 Depression Total Score: 2 12/08/19 20 7:04 AM CDT documented as of this encounter Care Teams Botany Laboratory Assistant Relationship Specialty Start Date End Date Annalisa Mark APRN RIDING TEACHER PCP - General Nurse Practitioner 03/22/15 06/29/22 Jacob Carmona MD [address] [place] [address] PCP - General 06/30/22 08/28/22 Clinic - [facility] [address] [place] [address] PCP - General 08/29/22 01/18/23 Lisa Wright PA-C [address] [place] [address] PCP - General Family Medicine 01/19/23 Annalisa Mark APRN RIDING TEACHER Assigned PCP 01/22/20 02/21/22 Jacob Carmona MD [facility] [place] [address] Assigned OBGYN Provider 05/18/20 Leonor Burgos MD [facility] [address] [address] Assigned PCP 02/22/22 05/16/22 Annalisa Mark APRN RIDING TEACHER Assigned PCP 05/17/22 08/15/22 Leonor Burgos MD [place] [address] [place] [address] Assigned PCP 08/16/22 08/29/22 Annalisa Mark APRN RIDING TEACHER [address] [place] [address] Assigned PCP 08/30/22 11/21/22 Curtis Núñez MD 420 [facility] 276 [place] [address] Assigned Pulmonology Provider 09/13/22 05/17/24 Leonor Burgos MD [place] [address]447 [facility] 207 [place] [address] Assigned PCP 11/22/22 11/28/22 Annalisa Mark APRN [facility] Assigned PCP 11/29/22 01/23/23 Lisa Wright PA-C [address] [place] [phone] Assigned PCP 01/24/23 04/17/24 Chanel Asher PA-C 6565 [facility] [address] [place] [address] Assigned PCP 04/18/24 06/17/24 Lisa Wright PA-C [address] [place] [phone] Assigned PCP 06/18/24 documented as of this encounter
--- OUTSIDE RECORDS SUMMARY | 2024-09-19 03:07 | XMS_ITS | Encounter Summary ---
Author Organization [place] Address [address] [place] [address]. [place] [address] Care Team Providers Care Commercial Lines Account Executive Name Role Phone Jacob Carmona MD Unavailable Lisa Wright PA-C Primary Care Provider Lisa Wright PA-C Unavailable [phone] Encounter Details Date Type Department Care Team (Latest Contact Info) Description 09/13/2024 [facility] [address] [place] [address] Lisa Wright PA-C [id number] [place] [phone] Subclinical hypothyroidism Social History Tobacco Use Types Packs/Day Years [...] re latives? Once a week 02/16/2024 Attends [employer] Not on file 02/15 Active Member [...] Answer Date Recorded PHQ-2 Score 0 02/16/2024 [facility] - Occupational [...] exercise at this level? 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 Patient now interested in restarting levothyroxine. Refill request submitted 09/07/24, but it appears there was e-prescribing error and request was never received by us. ' Per last visit with Lisa Wright PA-C 07/14/24: TSH elevated in the mid-high 5 range with normal T4 level. She has been on low dose levothyroxine 25 mcg daily for the past several months and TSH now normal. Discussed today that with just a slightelevation in her TSH and normal T4 level she would not need to do treatment for her subclinical hypothyroidism if not having symptoms. She does not feel she was having symptoms before starting therapy. After discussed we opted to have her discontinue the levothyroxine to see if any symptoms surface. If she is feeling fine off the medication it would be okay to monitor TSH levels yearly and if herTSH gets above 7, she develops hypothyroidism or develops symptoms we could re-initiate levothyroxine therapy. She is in agreement with this plan. Concepcion Wright RN RVESCENT SALTS COMPOUNDER documented in this encounter Plan of Treatment Not on file documented as of this encounter Visit Diagnoses Diagnosis Subclinical hypothyroidism Other specified acquired hypothyroidism documented in this encounter Additional Health Concerns Assessment Noted Time PHQ-9 Depression Total Score: 5 02/16/20 24 6:57 AM CDT documented as of this encounter Care Teams Commercial Lines Account Executive Relationship Specialty Start Date End Date Lisa Wright PA-C [address] [place] [address] PCP - General Family Medicine 01/19/23 Jacob Carmona MD [address] [place] [address] Assigned OBGYN Provider 05/18/20 Lisa Wright PA-C [address] [place] [address] Assigned PCP 06/18/24 documented as of this encounter
--- OUTSIDE RECORDS SUMMARY | 2024-09-19 03:07 | XMS_ITS | Encounter Summary ---
Author Organization [place] Address [facility] [place] [address] Care Team Providers Care Milk Driver Name Role Phone Annalisa Mark APRN, CNP Primary Care Provi miguel Unavailable Mukul Rivas PA-C Unavailable [phone] DeedeeAnnalisa dean APRN, CNP Unavailable Un available Mukul Rivas PA-C Unavailable [phone] Annalisa Mark APRN, CNP Unavailable Un available Jacob Carmona MD Unavailable [phone] Leonor Burgos MD Unavailable + Annalisa Mark APRN, CNP Unavailable Un available Jacob Carmona MD Primary Care Provider Leonor Burgos MD Unavailable + [facility] Primary Care Provider Annalisa Mark APRN, CNP Unavailable Un available Curtis Núñez MD Unavailable [phone] Leonor Burgos MD Unavailable + Deedee, Annalisa Madonna BREAST SPLITTER GAS PLANT OPERATOR Unavailable Un available Norm Wrightkendall Moore PA-C Primary Care Provider [phone] Kyle Lisa Moore PA-C Unavailable [phone] Lb Chanel Valverde PA-C Unavailable [phone] Norm Wrightkendall Moore PA-C Unavailable [phone] Encounter Details Date Type Department Care Team (Late st Contact Info) Description 07/06/2019 MyC Medical Advice [facility] [address] [facility] [address] [place] [address] Jacob Carmona MD [address] [place] [address] Social History Tobacco Use Types [...] PM CDT Legal Sex Female 3:18 AM 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 Gender Identity Female 03/25/2021 2:01 PM CDT Sexual Orientation Straight 03/25/2021 2: 01 PM CDT 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 on file Not on [...] Out C-difficile 09/10/2022 09/10/2022 023 5:27 PM 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 FILLER C-difficile 09/10/2022 09/10/2022 10/10/2022 11:3 9 PM CDT Assessment Noted Time PHQ-9 Depression Total Score: 3 12/08/19 19 7:05 AM CDT documented as of this encounter Care Teams Milk Driver Relationship Specialty Start Date End Date Annalisa Mark APRN GAS PLANT OPERATOR PCP - General Nurse Practitioner 03/22/15 06/29/22 Jacob Carmona MD [address] [place] [address] PCP - General 06/30/22 08/28/22 [facility] [address] [place] [address] PCP - General 08/29/22 01/18/23 Lisa Wright PA-C [address] [place] [address] PCP - General Family Medicine 01/19/23 Mukul Rivas PA-C [address] [place] [address] Assigned PCP 07/03/19 11/19/19 Annalisa Mark APRN GAS PLANT OPERATOR Assigned PCP 11/20/19 12/10/19 Mukul Rivas PA-C [address] [place] [address] Assigned PCP 12/11/19 01/21/20 Annalisa Mark APRN GAS PLANT OPERATOR Assigned PCP 01/22/20 02/21/22 Jacob Carmona MD [address] [place] [address] Assigned OBGYN Provider 05/18/20 Leonor Burgos MD [facility] [address] [employer] [address] [place] [address] Assigned PCP 02/22/22 05/16/22 Annalisa Mark APRN GAS PLANT OPERATOR Assigned PCP 05/17/22 08/15/22 Leonor Burgos MD [place] [address] [place] [address] Assigned PCP 08/16/22 08/29/22 Annalisa Mark APRN GAS PLANT OPERATOR [address] [place] [address] Assigned PCP 08/30/22 11/21/22 Curtis Núñez MD 420 [facility] 276 [place] [address] Assigned Pulmonology Provider 09/13/22 05/17/24 Leonor Burgos MD [facility] [address] [place] [address] 207 [place] [address] Assigned PCP 11/22/22 11/28/22 Annalisa Mark APRN GAS PLANT OPERATOR Assigned PCP 11/29/22 01/23/23 Lisa Wright PA-C [address] [place] [address] Assigned PCP 01/24/23 04/17/24 Chanel Asher PA-C 6565 [facility] [address] [place], [place] [address] Assigned PCP 04/18/24 06/17/24 Lisa Wright PA-C [address] [place] [address] Assigned PCP 06/18/24 documented as of this encounter
--- OUTSIDE RECORDS SUMMARY | 2024-09-19 03:07 | XMS_ITS | Encounter Summary ---
Author Organization [place] Address [facility] [address] Care Team Providers Care Workforce Advisor Name Role Phone Annalisa Mark APRN, CNP Primary Care Provi miguel Unavailable Mukul Rivas PA-C Unavailable [phone] DeedeeAnnalisa dean APRN, CNP Unavailable Un available Mukul Rivas PA-C Unavailable [phone] Annalisa Mark APRN, CNP Unavailable Un available Jacob Carmona MD Unavailable [phone] Leonor Burgos MD Unavailable + Annalisa Mark APRN, CNP Unavailable Un available Jacob Carmona MD Primary Care Provider Leonor Burgos MD Unavailable + [facility] Primary Care Provider Annalisa Mark APRN, CNP Unavailable Un available Curtis Núñez MD Unavailable [phone] Loenor Burgos MD Unavailable + Deedee, Annalisa Madonna BOARD FILLER CLINICAL UNIT EDUCATOR Unavailable Un available Kyle Lisakendall Moore PA-C Primary Care Provider [phone] Kyle Lisa Moore PA-C Unavailable [phone] Chanel Asher PA-C Unavailable [phone] Norm Wrightkendall Moore PA-C Unavailable [phone] Encounter Details Date Type Department Care Team (Late st Contact Info) Description 07/29/2019 MyC Medical Advice [facility] [address] [facility] [address] [place] [address] Jacob Carmona MD [address] [place] [address] Social History Tobacco Use Types [...] PM CDT Legal Sex Female 3:18 AM DELIVERY HELPER Gender Identity Female 03/25/2021 2:01 PM CDT Sexual Orientation Straight 03/25/2021 2: 01 PM CDT 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 ??It is slightly [...] growth rate. ??She's absolutely fine. Dr. Carmona VERY HELPER documented in this encounter Plan of [...] Out C-difficile 09/10/2022 09/10/2022 023 5:27 PM DELIVERY HELPER C-difficile 09/10/2022 09/10/2022 10/10/2022 11:3 9 PM CDT Assessment Noted Time PHQ-9 Depression Total Score: 3 12/08/19 19 7:05 AM CDT documented as of this encounter Care Teams Workforce Advisor Relationship Specialty Start Date End Date Annalisa Mark APRN CLINICAL UNIT EDUCATOR PCP - General Nurse Practitioner 03/22/15 06/29/22 Jacob Carmona MD [address] [place] [address] PCP - General 06/30/22 08/28/22 [facility] [address] [place] [address] PCP - General 08/29/22 01/18/23 Lisa Wright PA-C [address] [place] [address] PCP - General Family Medicine 01/19/23 Mukul Rivas PA-C [address] [place] [address] Assigned PCP 07/03/19 11/19/19 Annalisa Mark APRN CLINICAL UNIT EDUCATOR Assigned PCP 11/20/19 12/10/19 Mukul Rivas PA-C [address] [place] [id number] Assigned PCP 12/11/19 01/21/20 Annalisa Mark APRN CLINICAL UNIT EDUCATOR Assigned PCP 01/22/20 02/21/22 Jacob Carmona MD [address] [place] [address] Assigned OBGYN Provider 05/18/20 Leonor Burgos MD [facility] [address] [address] Assigned PCP 02/22/22 05/16/22 Annalisa Mark APRN CLINICAL UNIT EDUCATOR Assigned PCP 05/17/22 08/15/22 Leonor Burgos MD [place] [address] [address] [place] [address] Assigned PCP 08/16/22 08/29/22 Annalisa Mark APRN CLINICAL UNIT EDUCATOR [address] [place] [address] Assigned PCP 08/30/22 11/21/22 Curtis Núñez MD [address] [place] [address] 276 [place] [address] Assigned Pulmonology Provider 09/13/22 05/17/24 Leonor Burgos MD [place] [address] [address] [place] [address] Assigned PCP 11/22/22 11/28/22 Annalisa Mark APRN CLINICAL UNIT EDUCATOR Assigned PCP 11/29/22 01/23/23 Lisa Wright PA-C [address] [facility] [place] [address] Assigned PCP 01/24/23 04/17/24 Chanel Asher PA-C [address] [place] [address] Assigned PCP 04/18/24 06/17/24 Lisa Wright PA-C [address] [place] [phone] Assigned PCP 06/18/24 documented as of this encounter
--- OUTSIDE RECORDS SUMMARY | 2024-09-19 03:07 | XMS_ITS | Encounter Summary ---
Author Organization [place] Address [facility] [address] Care Team Providers Care Roof Technician Name Role Phone Annalisa Mark APRN, CNP Primary Care Provi miguel Unavailable Mukul Rivas PA-C Unavailable [phone] DeedeeAnnalisa dean APRN, CNP Unavailable Un available Mukul Rivas PA-C Unavailable + [phone] Annalisa Mark APRN, CNP Unavailable Un available Jacob Carmona MD Unavailable [phone] Leonor Burgos MD Unavailable + Annalisa Mark APRN, CNP Unavailable Un available Jacob Carmona MD Primary Care Provider Leonor Burgos MD Unavailable + [facility] Primary Care Provider Annalisa Mark APRN, CNP Unavailable Un available Curtis Núñez MD Unavailable [phone] Leonor Burgos MD Unavailable + Deedee, Annalisa Madonna FIRE PREVENTION BUREAU CAPTAIN ALMOND GRINDER Unavailable Un available Kyle Lisakendall Moore PA-C Primary Care Provider [phone] Kyle Lisa Moore PA-C Unavailable [phone] Chanel Asher PA-C Unavailable [phone] KyleNormLisakendall Moore PA-C Unavailable Reason for Visit * Reason Onset Date Comments post 09/22/2019 Encounter Details Date Type Department Care Team (Late st Contact Info) Description 09/22/2019 MyC Medical Advice [facility] [address] [facility] [address] [place] [address] Jacob Carmona MD [address] [place] [address] post Social History Tobacco Use Types Packs/Day [...] 02/15/2019 Lack of Transportation (Non-Medical) No 02/15/2019 [place] Depression Scale Answer Date Recorded [place] Depression Score 2 09/21/2019 Last EPDS Self Harm Result Not on file 09/21 Education Answer Date Recorded What is the highest level of school you have completed or the highest degree you have received? 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 on file Not on file [...] Out C-difficile 09/10/2022 09/10/2022 023 5:27 PM SALES REPRESENTATIVE [employer] C-difficile 09/10/2022 09/10/2022 10/10/2022 11:3 9 PM CDT Assessment Noted Time PHQ-9 Depression Total Score: 3 12/08/19 19 7:05 AM CDT documented as of this encounter Care Teams Roof Technician Relationship Specialty Start Date End Date Annalisa Mark APRN ALMOND GRINDER PCP - General Nurse Practitioner 03/22/15 06/29/22 Jacob Carmona MD [address] [place] [address] PCP - General 06/30/22 08/28/22 [facility] [address] [place] [address] PCP - General 08/29/22 01/18/23 Lisa Wright PA-C [address] [place] [phone] PCP - General Family Medicine 01/19/23 Mukul Rivas PA-C [address] [address] Assigned PCP 07/03/19 11/19/19 Annalisa Mark APRN ALMOND GRINDER Assigned PCP 11/20/19 12/10/19 Mukul Rivas PA-C [address] [place] [address] Assigned PCP 12/11/19 01/21/20 Annalisa Mark APRN ALMOND GRINDER Assigned PCP 01/22/20 02/21/22 Jacob Carmona MD [address] [place] [address] Assigned OBGYN Provider 05/18/20 Leonor Burgos MD [place] [address] [address] [address] Assigned PCP 02/22/22 05/16/22 Annalisa Mark APRN ALMOND GRINDER Assigned PCP 05/17/22 08/15/22 Leonor Burgos MD [place] [address] [employer] [address] [place] [address] Assigned PCP 08/16/22 08/29/22 Annalisa Mark APRN ALMOND GRINDER [address] [place] [address] Assigned PCP 08/30/22 11/21/22 Curtis Núñez MD 420 [facility] 276 [place] [address] Assigned Pulmonology Provider 09/13/22 05/17/24 Leonor Burgos MD [facility] 7447 [facility] [address] [place] [address] Assigned PCP 11/22/22 11/28/22 Annalisa Mark APRN ALMOND GRINDER Assigned PCP 11/29/22 01/23/23 Lisa Wright PA-C [address] [place] [address] Assigned PCP 01/24/23 04/17/24 Chanel Asher PA-C 6565 [facility] 200 [place], [place] [address] Assigned PCP 04/18/24 06/17/24 Lisa Wright PA-C [address] [place] [address] Assigned PCP 06/18/24 documented as of this encounter
--- OUTSIDE RECORDS SUMMARY | 2024-09-19 03:07 | XMS_ITS | Encounter Summary ---
Author Organization [place] Address [facility] [place] [address] Care Team Providers Care Founder & Ceo Name Role Phone Annalisa Mark APRN, CNP Primary Care Provi miguel Unavailable Mukul Rivas PA-C Unavailable [phone] DeedeeAnnalisa dean APRN, CNP Unavailable Un available Mukul Rivas PA-C Unavailable + [phone] Annalisa Mark APRN, CNP Unavailable Un available Jacob Carmona MD Unavailable [phone] Leonor Burgos MD Unavailable + Annalisa Mark APRN, CNP Unavailable Un available Jacob Carmona MD Primary Care Provider Leonor Burgos MD Unavailable + [facility] Primary Care Provider Annalisa Mark APRN, CNP Unavailable Un available Curtis Núñez MD Unavailable [phone] Leonor Burgos MD Unavailable + Deedee, Annalisa Madonna UNDERWRITING SUPPORT SPECIALIST ASSISTANT COUNSEL Unavailable Un available Norm Wrightkendall Moore PA-C Primary Care Provider Kyle Lisa Moore PA-C Unavailable [phone] Chanel Asher PA-C Unavailable [phone] Angelica Wrighttana Moore PA-C Unavailable [phone] Encounter Details Date Type Department Care Team (Late st Contact Info) Description 09/15/2019 MyC Medical Advice [facility] [address] [facility] [address] [place] [address] Jacob Carmona MD [address] [place] [address] Social History Tobacco Use Types [...] PM CDT Legal Sex Female 3:18 AM MANAGER CORPORATE RESPONSIBILITY Gender Identity Female 03/25/2021 2:01 PM CDT Sexual Orientation Straight 03/25/2021 2: 01 PM CDT 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 Not on file [...] Out C-difficile 09/10/2022 09/10/2022 023 5:27 PM MANAGER CORPORATE RESPONSIBILITY C-difficile 09/10/2022 09/10/2022 10/10/2022 11:3 9 PM CDT Assessment Noted Time PHQ-9 Depression Total Score: 3 12/08/19 19 7:05 AM CDT documented as of this encounter Care Teams Founder & Ceo Relationship Specialty Start Date End Date Annalisa Mark APRN ASSISTANT COUNSEL PCP - General Nurse Practitioner 03/22/15 06/29/22 Jacob Carmona MD [address] [place] [address] PCP - General 06/30/22 08/28/22 [facility] [address] [place] [address] PCP - General 08/29/22 01/18/23 Lisa Wright PA-C [address] [place] [address] PCP - General Family Medicine 01/19/23 Mukul Rivas PA-C [address] [place] [address] Assigned PCP 07/03/19 11/19/19 Annalisa Mark APRN ASSISTANT COUNSEL Assigned PCP 11/20/19 12/10/19 Mukul Rivas PA-C [address] [place] [address] Assigned PCP 12/11/19 01/21/20 Annalisa Mark APRN ASSISTANT COUNSEL Assigned PCP 01/22/20 02/21/22 Jacob Carmona MD [address] [place] [address] Assigned OBGYN Provider 05/18/20 Leonor Burgos MD [place] [address] [place] [address] Assigned PCP 02/22/22 05/16/22 Annalisa Mark APRN ASSISTANT COUNSEL Assigned PCP 05/17/22 08/15/22 Leonor uBrgos MD AR[place] [address] [place] [address] Assigned PCP 08/16/22 08/29/22 Annalisa Mark APRN ASSISTANT COUNSEL [address] [place] [address] Assigned PCP 08/30/22 11/21/22 Curtis Núñez MD [address] [facility] 276 [place] [address] Assigned Pulmonology Provider 09/13/22 05/17/24 Leonor Burgos MD [place] [address] [place] [address] 207 [place] [address] Assigned PCP 11/22/22 11/28/22 Annalisa Mark APRN ASSISTANT COUNSEL Assigned PCP 11/29/22 01/23/23 Lisa Wright PA-C [address] [place] [address] Assigned PCP 01/24/23 04/17/24 Chanel Asher PA-C [address] [facility] 200 [place], [place] [address] Assigned PCP 04/18/24 06/17/24 Lisa Wright PA-C [address] [place] [address] Assigned PCP 06/18/24 documented as of this encounter
--- OUTSIDE RECORDS SUMMARY | 2024-09-19 03:07 | XMS_ITS | Encounter Summary ---
Author Organization [place] Address [facility] [place] [address] Care Team Providers Care De Alcoholizer Name Role Phone Jacob Carmona MD Unavailable [facility] Primary Care Provider Curtis Núñez MD Unavailable Leonor Burgos MD Unavailable + Annalisa Mark APRN BLEACHER KRAFT PULP Unavailable Un available Lisa Wright-C Primary Care Provider [phone] Lisa Wright PA-C Unavailable [phone] Chanel Asher PA-C Unavailable Lisa Wright-Serina Unavailable [phone] Reason for Visit * Reason Onset Date Comments Breast Problem 11/25/2022 Encounter Details Date Type Department Care Team (Late st Contact Info) Description 11/25/2022 [place] Medical Advice [facility] [address] [place] [phone] Jacob Carmona MD [address] [place] [address] Breast Problem Social History Tobacco Use Types [...] often do you attend [facility] or shinto services? Patient declined 10/16/2021 Do you belong [...] Answer Date Recorded PHQ-2 Score 0 11/19/2022 [facility] - Occupational [...] in a snf (including now)? No 10/16/2021 [place] Depression Scale Answer Date Recorded [place] Depression Score 2 09/21/2019 Last EPDS Self Harm Result Not on file 09/21 Education Answer Date Recorded What is the highest level of school you have completed or the highest degree you have received? 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 Belén RN documented in this encounter Plan of Treatment Not on file documented as of this encounter Visit Diagnoses Not on filedocumented in this encounter Additional Health Concerns Assessment Noted Time PHQ-9 Depression Total Score: 0 11/20/19 10:04 AM CDT documented as of this encounter Care Teams De Alcoholizer Relationship Specialty Start Date End Date Clinic - [facility] [id number] [place] [address] PCP - General 08/29/22 01/18/23 Lisa Wright, PAJonnathanC [id number] [place] [phone] PCP - General Family Medicine 01/19/23 Jacob Carmona MD [facility] [place] [address] Assigned OBGYN Provider 05/18/20 Curtis Núñez MD [address] [place] [address] Assigned Pulmonology Provider 09/13/22 05/17/24 Leonor Burgos MD [facility] [address] [place] [address] Assigned PCP 11/22/22 11/28/22 Annalisa Mark APRN BLEACHER KRAFT PULP Assigned PCP 11/29/22 01/23/23 Lisa Wright PA-C [address] [place] [address] Assigned PCP 01/24/23 04/17/24 Chanel Asher PA-C [address] [facility] [address] [address] Assigned PCP 04/18/24 06/17/24 Lisa Wright PA-C [address] [place] [address] Assigned PCP 06/18/24 documented as of this encounter
--- OUTSIDE RECORDS SUMMARY | 2024-09-19 03:07 | XMS_ITS | Encounter Summary ---
Author Organization [place] Address [address] [place] [address]. [place] [address] Care Team Providers Care Dean Of Chapel Name Role Phone Annalisa Mark APRN, CNP [...] available Lisa Wright PA-C Primary Care Provider [phone] Lisa Wright PA-C Unavailable [phone] Chanel Asher PA-C Unavailable [phone] Lisa Wright PA-C Unavailable [phone] Reason for Visit * Reason Onset Date Comments MyChart Communication 03/15/2020 Encounter Details Date Type Department Care Team (Latest Contact Info) Description 03/15/2020 MyC Medical Advice [address] [address] Annalisa Mark, JADEN BEATER BOSS MyChart Communication Social History Tobacco Use Types [...] 02/15/2019 Lack of Transportation (Non-Medical) No 02/15/2019 [place] Depression Scale Answer Date Recorded [place] Depression Score 2 09/21/2019 Last EPDS Self Harm Result Not on file 09/21 Education Answer Date Recorded What is the highest level of school you have completed or the highest degree you have received? 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 Not on file [...] Out C-difficile 09/10/2022 09/10/2022 023 5:27 PM TEAM ASSEMBLER C-difficile 09/10/2022 09/10/2022 10/10/2022 11:3 9 PM CDT Assessment Noted Time PHQ-9 Depression Total Score: 2 12/08/19 20 7:04 AM CDT documented as of this encounter Care Teams Dean Of Chapel Relationship Specialty Start Date End Date Annalisa Mark APRN BEATER BOSS PCP - General Nurse Practitioner 03/22/15 06/29/22 Jacob Carmona MD [address] [place] [address] PCP - General 06/30/22 08/28/22 [facility] [address] [place] [address] PCP - General 08/29/22 01/18/23 Lisa Wright PA-C [address] [place] [phone] PCP - General Family Medicine 01/19/23 Annalisa Mark APRN BEATER BOSS Assigned PCP 01/22/20 02/21/22 Jacob Carmona MD [address] [place] [address] Assigned OBGYN Provider 05/18/20 Leonor Burgos MD [place] [address] [employer] [address] [place] [address] Assigned PCP 02/22/22 05/16/22 Annalisa Mark APRN BEATER BOSS Assigned PCP 05/17/22 08/15/22 Leonor Burgos MD [place] [address] [employer] [address] [place] [address] Assigned PCP 08/16/22 08/29/22 Annalisa Mark APRN BEATER BOSS [address] [place] [address] Assigned PCP 08/30/22 11/21/22 Curtis Núñez MD [address] [facility] 276 [place] [address] Assigned Pulmonology Provider 09/13/22 05/17/24 Leonor Burgos MD AR[place] [address] [employer] [address] [place] [address] Assigned PCP 11/22/22 11/28/22 Annalisa Mark APRN BEATER BOSS Assigned PCP 11/29/22 01/23/23 Lisa Wright PA-C [address] [place] [address] Assigned PCP 01/24/23 04/17/24 Chanel Asher PA-C [address] [facility] 200 [place] [address] Assigned PCP 04/18/24 06/17/24 Lisa Wright PA-C [address] [place] [address] Assigned PCP 06/18/24 documented as of this encounter
--- OUTSIDE RECORDS SUMMARY | 2024-09-19 03:07 | XMS_ITS | Encounter Summary ---
Author Organization [place] Address [address] [place] [address]. [place] [address] Care Team Providers Care Rn Teacher Name Role Phone Jacob Carmona MD Unavailable Curtis Núñez MD Unavailable Lisa Wright PA-C Primary Care Provider [phone] Lisa Wright PA-C Unavailable [phone] Chanel Asher PA-C Unavailable Lisa Wright PA-C Unavailable [phone] Reason for Visit * Reason Onset Date Comments Pt. Information/instruction 06/28/2023 Encounter Details Date Type Department Care Team (Late st Contact Info) Description 06/28/2023 MyC Medical Advice [facility] [place] [address] [place] [address] Jacob Carmona MD [address] [place] [address] Pt. Information/instruc tion Social History Tobacco Use [...] week 01/19/2023 How often do you attend [facility] or baptist services? 1 to 4 times per year 01/19/2023 Do you belong to any clubs o r organizations such as sabianism groups, unions, fraternal [...] Answer Date Recorded PHQ-2 Score 0 11/19/2022 [facility] - [...] exercise at this level? 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 Not on file Not on damion e documented as of this encounter Plan of Treatment Not on file documented as of this encounter Visit Diagnoses Not on filedocumented in this encounter Additional Health Concerns Assessment Noted Time PHQ-9 Depression Total Score: 0 04/26/20 23 10:04 AM CDT documented as of this encounter Care Teams Rn Teacher Relationship Specialty Start Date End Date Lisa Wright PA-C [address] [place] [address] PCP - General Family Medicine 01/19/23 Jacob Carmona MD [address] [place] [address] Assigned OBGYN Provider 05/18/20 Curtis Núñez MD [address] [facility] 276 [place] [address] Assigned Pulmonology Provider 09/13/22 05/17/24 Lisa Wright PA-C [address] [place] [phone] Assigned PCP 01/24/23 04/17/24 Chanel Asher PA-C [address] [facility] 200 [place] [address] Assigned PCP 04/18/24 06/17/24 Lisa Wright PA-C [address] [place] [address] Assigned PCP 06/18/24 documented as of this encounter
--- OUTSIDE RECORDS SUMMARY | 2024-09-19 03:07 | XMS_ITS | Encounter Summary ---
Author Organization [place] Address [facility] [place] [address] Care Team Providers Care Facilities Planner Name Role Phone Annalisa Mark APRN, CNP Primary Care Provi miguel Unavailable Mukul Rivas PA-C Unavailable [phone] DeedeeAnnalisa dean APRN, CNP Unavailable Un available Mukul Rivas PA-C Unavailable [phone] Annalisa Mark APRN, CNP Unavailable Un available Jacob Carmona MD Unavailable [phone] Leonor Burgos MD Unavailable + Annalisa Mark APRN, CNP Unavailable Un available Jacob Carmona MD Primary Care Provider Leonor Burgos MD Unavailable + [facility] Primary Care Provider Annalisa Mark APRN, CNP Unavailable Un available Curtis Núñez MD Unavailable [phone] Leonor Burgos MD Unavailable + Deedee, Annalisa Madonna MARKETING ADMIN DIVINITY PROFESSOR Unavailable Un available Norm Wrightkendall Moore PA-C Primary Care Provider [phone] Kyle Lisa Moore PA-C Unavailable [phone] Lb Chanel Valverde PA-C Unavailable [phone] Norm Wrightkendall Moore PA-C Unavailable [phone] Encounter Details Date Type Department Care Team (Late st Contact Info) Description 09/01/2019 MyC Medical Advice [facility] [address] [facility] [address] [place] [address] Jacob Carmona MD [address] [place] [address] Social History Tobacco Use Types [...] PM CDT Legal Sex Female 3:18 AM TELESALES CONSULTANT Gender Identity Female 03/25/2021 2:01 PM CDT Sexual Orientation Straight 03/25/2021 2: 01 PM CDT 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 Not on file [...] Out C-difficile 09/10/2022 09/10/2022 023 5:27 PM TELESALES CONSULTANT C-difficile 09/10/2022 09/10/2022 10/10/2022 11:3 9 PM CDT Assessment Noted Time PHQ-9 Depression Total Score: 3 12/08/19 19 7:05 AM CDT documented as of this encounter Care Teams Facilities Planner Relationship Specialty Start Date End Date Annalisa Mrak APRN DIVINITY PROFESSOR PCP - General Nurse Practitioner 03/22/15 06/29/22 Jacob Carmona MD [address] [place] [address] PCP - General 06/30/22 08/28/22 [facility] [address] [place] [address] PCP - General 08/29/22 01/18/23 Lisa Wright PA-C [address] [place] [address] PCP - General Family Medicine 01/19/23 uMkul Rivas PA-C [address] [place] [address] Assigned PCP 07/03/19 11/19/19 Annalisa Mark APRN DIVINITY PROFESSOR Assigned PCP 11/20/19 12/10/19 Mukul Rivas PA-C [address] [place] [address] Assigned PCP 12/11/19 01/21/20 Annalisa Mark APRN DIVINITY PROFESSOR Assigned PCP 01/22/20 02/21/22 Jacob Carmona MD [address] [place] [address] Assigned OBGYN Provider 05/18/20 Leonor Burgos MD [place] [address] [place] [address] Assigned PCP 02/22/22 05/16/22 Annalisa Mark APRN DIVINITY PROFESSOR Assigned PCP 05/17/22 08/15/22 Leonor Burgos MD ARISE [address] [place] [address] Assigned PCP 08/16/22 08/29/22 Annalisa Mark APRN DIVINITY PROFESSOR [address] [place] [address] Assigned PCP 08/30/22 11/21/22 Curtis Núñez MD 420 [facility] 276 [place] [address] Assigned Pulmonology Provider 09/13/22 05/17/24 Leonor Burgos MD [place] [address] [place] [address] 207 [place] [address] Assigned PCP 11/22/22 11/28/22 Annalisa Mark APRN DIVINITY PROFESSOR Assigned PCP 11/29/22 01/23/23 Lisa Wright PA-C [address] [place] [address] Assigned PCP 01/24/23 04/17/24 Chanel Asher PA-C [address] [facility] [address] [place], [place] [address] Assigned PCP 04/18/24 06/17/24 Lisa Wright PA-C [address] [place] [address] Assigned PCP 06/18/24 documented as of this encounter
--- OUTSIDE RECORDS SUMMARY | 2024-09-19 03:07 | XMS_ITS | Encounter Summary ---
Author Organization [place] Address [facility] [place] [address] Care Team Providers Care Planner Chief Name Role Phone Annalisa Mark APRN, CNP Primary Care Provi miguel Unavailable Mukul Rivas PA-C Unavailable [phone] DeedeeAnnalisa dean APRN, CNP Unavailable Un available Mukul Rivas PA-C Unavailable [phone] Annalisa Mark APRN, CNP Unavailable Un available Jacob Carmona MD Unavailable [phone] Leonor Burgos MD Unavailable + Annalisa Mark APRN, CNP Unavailable Un available Jacob Carmona MD Primary Care Provider Leonor Burgos MD Unavailable + [facility] Primary Care Provider Annalisa Mark APRN, CNP Unavailable Un available Curtis Núñez MD Unavailable [phone] Leonor Burgos MD Unavailable + Deedee, Annalisa Madonna AIR ANALYST VOCATIONAL COORDINATOR Unavailable Un available Norm Wrightkendall Moore PA-C Primary Care Provider [phone] Kyle Lisa Moore PA-C Unavailable [phone] Lb Chanel Valverde PA-C Unavailable [phone] Angelica Wrighttana Moore PA-C Unavailable [phone] Encounter Details Date Type Department Care Team (Late st Contact Info) Description 07/17/2019 MyC Medical Advice [facility] [address] [facility] [address] [place] [address] Jacob Carmona MD [address] [place] [address] Social History Tobacco Use Types [...] PM CDT Legal Sex Female 3:18 AM MASH FILTER CLOTH 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 Gender Identity Female 03/25/2021 2:01 PM CDT Sexual Orientation Straight 03/25/2021 2: 01 PM CDT 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 Not on file [...] Out C-difficile 09/10/2022 09/10/2022 023 5:27 PM MASH FILTER CLOTH CHANGER C-difficile 09/10/2022 09/10/2022 10/10/2022 11:3 9 PM CDT Assessment Noted Time PHQ-9 Depression Total Score: 3 12/08/19 19 7:05 AM CDT documented as of this encounter Care Teams Planner Chief Relationship Specialty Start Date End Date Annalisa Mark APRN VOCATIONAL COORDINATOR PCP - General Nurse Practitioner 03/22/15 06/29/22 Jacob Carmona MD [address] [place] [address] PCP - General 06/30/22 08/28/22 [facility] [address] [place] [address] PCP - General 08/29/22 01/18/23 Lisa Wright PA-C [address] [place] [address] PCP - General Family Medicine 01/19/23 Mukul Rivas PA-C [address] [place] [address] Assigned PCP 07/03/19 11/19/19 Annalisa Mark APRN VOCATIONAL COORDINATOR Assigned PCP 11/20/19 12/10/19 Mukul Rivas PA-C [address] [place] [address] Assigned PCP 12/11/19 01/21/20 Annalisa Mark APRN VOCATIONAL COORDINATOR Assigned PCP 01/22/20 02/21/22 Jacob Carmona MD [address] [place] [address] Assigned OBGYN Provider 05/18/20 Leonor Burgos MD ARISE [address] [place] [address] Assigned PCP 02/22/22 05/16/22 Annalisa Mark APRN VOCATIONAL COORDINATOR Assigned PCP 05/17/22 08/15/22 Leonor Burgos MD AR[place] [address] [place] [address] Assigned PCP 08/16/22 08/29/22 Annalisa Mark APRN VOCATIONAL COORDINATOR [address] [place] [address] Assigned PCP 08/30/22 11/21/22 Curtis Núñez MD 420 [facility] 276 [place] [address] Assigned Pulmonology Provider 09/13/22 05/17/24 Leonor Burgos MD [place] [address] [place] [address] 207 [place] [address] Assigned PCP 11/22/22 11/28/22 Annalisa Mark APRN VOCATIONAL COORDINATOR Assigned PCP 11/29/22 01/23/23 Lisa Wright PA-C [address] [place] [address] Assigned PCP 01/24/23 04/17/24 Chanel Asher PA-C 65[address] [facility] 200 [place], [place] [address] Assigned PCP 04/18/24 06/17/24 Lisa Wright PA-C [address] [place] [address] Assigned PCP 06/18/24 documented as of this encounter
--- OUTSIDE RECORDS SUMMARY | 2024-09-19 03:08 | XMS_ITS | Encounter Summary ---
Author Organization [facility] Address [address] [place] [address]. [place] [address] Care Team Providers Care Assembler Arranger Name Role Phone Jacob Carmona MD Unavailable [phone] Annalisa Mark APRN HEAT AND FROST INSULATOR HELPER Unavailable Un available Jacob Carmona MD Primary Care Provider Leonor Burgos MD Unavailable + [facility] Primary Care Provider Annalisa Mark APRN HEAT AND FROST INSULATOR HELPER Unavailable Un available Curtis Núñez MD Unavailable [phone] Leonor Burgos MD Unavailable + Annalisa Mark APRN HEAT AND FROST INSULATOR HELPER Unavailable Un available Lisa Wright PA-C Primary Care Provider [phone] Lisa Wright PA-C Unavailable [phone] Chanel Asher PA-C Unavailable [phone] Lisa Wright-Serina Unavailable [phone] Encounter Details Date Type Department Care Team (Late st Contact Info) Description 07/09/2022 MyC Medical Advice [facility] Deborah [address] [facility] [address] [place] [address] Jacob Carmona MD [address] [place] [address] Social History Tobacco Use Types Packs/Day Years [...] week 10/16/2021 How often do you attend [facility] or advent services? Patient declined 10/16/2021 Do you belong [...] Answer Date Recorded PHQ-2 Score 0 07/03/2022 [facility] of Occupat ional Health - Occupational Stress [...] in a penitentiary (including now)? No 10/16/2021 Kinsey Depression Scale Answer Date Recorded Kin[place] Depression Score 2 09/21/2019 Last EPDS Self Harm Result Not on file 09/21 Education Answer Date Recorded What is the highest level of school you have completed or the highest degree you have received? 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 No / Unsure 07/03/2022 10:04 AM STATIONARY STEAM ENGINEER documented as of this encounter Miscellaneous Notes * Telephone Encounter - Pamela Velazquez RN - 07/09/2022 3:23 PM CST Please see my chart message. Pamela Velazquez RN IONARY STEAM ENGINEER documented in this encounter Plan of Treatment Not on file documented as of this encounter Visit Diagnoses Not on filedocumented in this encounter Additional Health Concerns Infection Onset Date Last Indicated Resolved Time Rule Out C-difficile 09/10/2022 09/10/2022 023 5:27 PM STATIONARY STEAM ENGINEER C-difficile 09/10/2022 09/10/2022 10/10/2022 11:3 9 PM CDT Assessment Noted Time PHQ-9 Depression Total Score: 1 04/08/20 22 4:38 PM CDT documented as of this encounter Care Teams Assembler Arranger Relationship Specialty Start Date End Date Jacob Carmona MD [address] [place] [address] PCP - General 06/30/22 08/28/22 [facility] [address] [place] [address] PCP - General 08/29/22 01/18/23 Lisa Wright PA-C [address] [place] [phone] PCP - General Family Medicine 01/19/23 Jacob Carmona MD [address] [place] [address] Assigned OBGYN Provider 05/18/20 Annalisa Mark APRN HEAT AND FROST INSULATOR HELPER Assigned PCP 05/17/22 08/15/22 Leonor Burgos MD [place] [address] [place] [address] Assigned PCP 08/16/22 08/29/22 Annalisa Mark APRN HEAT AND FROST INSULATOR HELPER [address] [place] [address] Assigned PCP 08/30/22 11/21/22 Curtis Núñez MD [address] [place] [address] [address] [place] [address] Assigned Pulmonology Provider 09/13/22 05/17/24 Leonor Burgos MD ARISE [address] [employer] [address] [place] [address] Assigned PCP 11/22/22 11/28/22 Annalisa Mark APRN HEAT AND FROST INSULATOR HELPER Assigned PCP 11/29/22 01/23/23 Lisa Wright PA-C [address] [facility] [place] [phone] Assigned PCP 01/24/23 04/17/24 Chanel Asher PA-C [address] [facility] 200 [place] [address] Assigned PCP 04/18/24 06/17/24 Lisa Wright PA-C [address] [facility] [place] [place] [phone] Assigned PCP 06/18/24 documented as of this encounter
--- OUTSIDE RECORDS SUMMARY | 2024-09-19 03:08 | XMS_ITS | Encounter Summary ---
Author Organization [facility] Address [address] [place] [address]. [place] [address] Care Team Providers Care Axle Inspector Name Role Phone Annalisa Mark APRN, CNP Primary Care Provi miguel Unavailable Leonor Burgos MD Unavailable + Deedee, Annalisa Peacock APRN, CNP Unavailable Un available DeedeeAnnalisa dean APRN, CNP Unavailable Un available Mukul Rivas PA-C Unavailable + [phone] DeedeeAnnalisa APRN, CNP Unavailable Un available Mukul Rivas PA-C Unavailable [phone] Deedee, Annalisa Peacock APRN, CNP Unavailable Un available Jacob Carmona MD Unavailable + [phone] Leonor Burgos MD Unavailable + DeedeeAnnalisa dean APRN, CNP Unavailable Un available Jacob Carmona MD Primary Care Provider Leonor Burgos MD Unavailable + [facility] Primary Care Provider DeedeeAnnalisa dean APRN, CNP Unavailable Un available Curtis Núñez MD Unavailable Leonor Burgos MD Unavailable + Annalisa Mark APRN CRYOGENICS REPAIRER Unavailable Un available Lisa Wright Teresa PA-C Primary Care Provider Angelica Wrighttana Moore PA-C Unavailable [phone] Chanel Asher PA-C Unavailable Lisa Wright Teresa PA-C Unavailable [phone] Encounter Details Date Type Department Care Team (Late st Contact Info) Description 01/28/2018 MyC Medical Advice [facility] [address] [place] [address] Pete Martin MD NO INFO AVAILABLE 02/17/23 Social History Tobacco Use Types Packs/Day Years Used Date Smoking Tobacco: Never Smokeless Tobacco: Never Alcohol Use Standard Drinks/Week Comments No 0 (1 standard drink = 0.6 oz pur e alcohol) Occaisional Comments No Sex and Gender Information Value Date Recorded Sex Assigned at Female 03/25/2021 2:01 PM CDT Legal Sex Female 3:18 AM SKATE BOARDER Gender Identity Female 03/25/2021 2:01 PM CDT [...] Out C-difficile 09/10/2022 09/10/2022 023 5:27 PM SKATE BOARDER C-difficile 09/10/2022 09/10/2022 10/10/2022 11:3 9 PM CDT Assessment Noted Time PHQ-9 Depression Total Score: 4 09/25/19 18 8:33 AM SKATE BOARDER documented as of this encounter Care Teams Axle Inspector Relationship Specialty Start Date End Date Annalisa Mark APRN CNP PCP - General Nurse Practitioner 03/22/15 06/29/22 Leonor Burgos MD AR[place] [address] [place] [address] PCP - Assigned PCP 12/13/17 06/05/18 Annalisa Mark APRN CRYOGENICS REPAIRER PCP - Assigned PCP 06/06/18 09/28/18 Jacob Carmona MD [facility] [place] [address] PCP - General 06/30/22 08/28/22 [facility] [id number] [place] [id number] PCP - General 08/29/22 01/18/23 Lisa Wright PA-C [address] [place] [address] PCP - General Family Medicine 01/19/23 Annalisa Mark APRN CRYOGENICS REPAIRER Assigned PCP 06/06/18 07/02/19 Mukul Rivas PA-C [address] [place] [address] Assigned PCP 07/03/19 11/19/19 Annalisa Mark APRN CRYOGENICS REPAIRER Assigned PCP 11/20/19 12/10/19 Mukul Rivas PA-C [address] [place] [id number] Assigned PCP 12/11/19 01/21/20 Annalisa Mark APRN CRYOGENICS REPAIRER Assigned PCP 01/22/20 02/21/22 Jacob Carmona MD [address] [place] [address] Assigned OBGYN Provider 05/18/20 Leonor Burgos MD AR[place] [address] [employer] [address] [place], [place] [address] Assigned PCP 02/22/22 05/16/22 Annalisa Mark APRN CRYOGENICS REPAIRER Assigned PCP 05/17/22 08/15/22 Leonor Burgos MD AR[place] [address] [place] [address] Assigned PCP 08/16/22 08/29/22 Annalisa Mark APRN CRYOGENICS REPAIRER [address] [place] [address] Assigned PCP 08/30/22 11/21/22 Curtis Núñez MD [address] [facility] 276 [place], [place] [address] Assigned Pulmonology Provider 09/13/22 05/17/24 Leonor Burgos MD ARISE [address] [employer] [address] [place] [address] Assigned PCP 11/22/22 11/28/22 Annalisa Mark APRN CRYOGENICS REPAIRER Assigned PCP 11/29/22 01/23/23 Lisa Wright PA-C [address] [facility] [phone] Assigned PCP 01/24/23 04/17/24 Chanel Asher PA-C [address] [facility] [address] [place] [address] Assigned PCP 04/18/24 06/17/24 Lisa Wright PA-C [address] [facility] [phone] Assigned PCP 06/18/24 documented as of this encounter
--- OUTSIDE RECORDS SUMMARY | 2024-09-19 03:08 | XMS_ITS | Encounter Summary ---
Author Organization [facility] Address [address] [place] [address]. [place] [address] Care Team Providers Care Relocation Coordinator Name Role Phone Annalisa Mark APRN, CNP Primary Care Provi miguel Unavailable Deedee, Annalisa Peacock APRN, CNP Unavailable Un available Mukul Rivas PA-C Unavailable + [phone] Deedee, Annalisa Peacock APRN, CNP Unavailable Un available Mukul Rivas PA-C Unavailable [phone] Deedee, Annalisa Peacock APRN, CNP Unavailable Un available Jacob Carmona MD Unavailable + [phone] Leonor Burgos MD Unavailable + DeedeeAnnalisa dean APRN, CNP Unavailable Un available Jacob Carmona MD Primary Care Provider Leonor Burgos MD Unavailable + [facility] Primary Care Provider Annalisa Mark APRN, CNP Unavailable Un available Curtis Núñez MD Unavailable [phone] Leonor Burgos MD Unavailable + Annalisa Mark ACCOUNTING CONSULTANT PHYSICIAN OFFICE CLIN ASST Unavailable Un available Lisa Wright PA-C Primary Care Provider Lisa Wright PA-C Unavailable [phone] Chanel Asher DEMARCUS Unavailable KyleNormLisakendall Moore PA-C Unavailable [phone] Reason for Visit * Reason Onset Date Comments Care 06/20/2019 Encounter Details Date Type Department Care Team (Late st Contact Info) Description 06/20/2019 MyC Medical Advice [employer] [address] [place] [address] Jacob Carmona MD [address] [place] [address] Care Social History Tobacco Use [...] PM CDT Legal Sex Female 3:18 AM AG SERVICE MANAGER Gender Identity Female 03/25/2021 2:01 PM CDT Sexual Orientation Straight 03/25/2021 2: 01 PM CDT 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 file Not on file [...] Out C-difficile 09/10/2022 09/10/2022 023 5:27 PM AG SERVICE MANAGER C-difficile 09/10/2022 09/10/2022 10/10/2022 11:3 9 PM CDT Assessment Noted Time PHQ-9 Depression Total Score: 3 12/08/19 19 7:05 AM CDT documented as of this encounter Care Teams Relocation Coordinator Relationship Specialty Start Date End Date Annalisa Mark APRN PHYSICIAN OFFICE CLIN ASST PCP - General Nurse Practitioner 03/22/15 06/29/22 Jacob Carmona MD [address] [place] [address] PCP - General 06/30/22 08/28/22 Clinic - [facility] [address] [place] [address] PCP - General 08/29/22 01/18/23 Lisa Wright PA-C [address] [place] [phone] PCP - General Family Medicine 01/19/23 Annalisa Mark APRN PHYSICIAN OFFICE CLIN ASST Assigned PCP 06/06/18 07/02/19 Mukul Rivas PA-C [address], [place] [id number] Assigned PCP 07/03/19 11/19/19 Annalisa Mark APRN PHYSICIAN OFFICE CLIN ASST Assigned PCP 11/20/19 12/10/19 Mukul Rivas PA-C [address] [place] [address], [place] [address] Assigned PCP 12/11/19 01/21/20 Annalisa Mark APRN PHYSICIAN OFFICE CLIN ASST Assigned PCP 01/22/20 02/21/22 Jacob Carmona MD [address] [place] [address] Assigned OBGYN Provider 05/18/20 Leonor Burgos MD ARISE [address] [employer] [address] [place] [address] Assigned PCP 02/22/22 05/16/22 Annalisa Mark APRN PHYSICIAN OFFICE CLIN ASST Assigned PCP 05/17/22 08/15/22 Leonor Burgos MD ARISE [address] [employer] [address] [place] [address] Assigned PCP 08/16/22 08/29/22 Annalisa Mark APRN PHYSICIAN OFFICE CLIN ASST [address] [place] [address] Assigned PCP 08/30/22 11/21/22 Curtis Núñez MD [address] [facility] 276 [place] [address] Assigned Pulmonology Provider 09/13/22 05/17/24 Leonor Burgos MD [place] [address] [facility] [address] [place] [address] Assigned PCP 11/22/22 11/28/22 Annalisa Mark APRN PHYSICIAN OFFICE CLIN ASST Assigned PCP 11/29/22 01/23/23 Lisa Wright PA-C [address] [place] [phone] Assigned PCP 01/24/23 04/17/24 Chanel Asher PA-C [address] [facility] [address] [place], [place] [address] Assigned PCP 04/18/24 06/17/24 Lisa Wright PA-C [address] [place] [phone] Assigned PCP 06/18/24 documented as of this encounter
--- OUTSIDE RECORDS SUMMARY | 2024-09-19 03:08 | XMS_ITS | Encounter Summary ---
Author Organization [facility] Address [address] [place] [address]. [place] [address] Care Team Providers Care Veneer Jointer Offbearer Name Role Phone Jacob Carmona MD Unavailable Curtis Núñez MD Unavailable Lisa Wright PA-C Primary Care Provider Lisa Wright-Serina Unavailable [phone] Chanel Asher PA-C Unavailable [phone] Lisa Wright PA-C Unavailable [phone] Encounter Details Date Type Department Care Team (Late st Contact Info) Description 07/27/2023 [facility] Medical Advice [facility] [address] [place] [phone] Jacob Carmona MD [address] [place], [place] [address] Social History Tobacco Use Types Packs/Day Years [...] often do you attend chur ch or shinto services? 1 to 4 times per year 01/19/2023 Do you belong to any clubs o r organizations such as moravian groups, unions, fraternal [...] Answer Date Recorded PHQ-2 Score 0 11/19/2022 [facility] - Occupational Stress Questionnaire Answer [...] exercise at this level? 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 Pt is requesting to do a self collect swab to check for yeast. S. Ari, RN TRICAL MAINTENANCE SUPERVISOR documented in this encounter Plan of Treatment Not on file documented as of this encounter Visit Diagnoses Not on filedocumented in this encounter Additional Health Concerns Assessment Noted Time PHQ-9 Depression Total Score: 0 11/20/19 10:04 AM CDT documented as of this encounter Care Teams Veneer Jointer Offbearer Relationship Specialty Start Date End Date Lisa Wright PA-C [address] [place] [address] PCP - General Family Medicine 01/19/23 Jacob Carmona MD [address] [place] [address] Assigned OBGYN Provider 05/18/20 Curtis Núñez MD [address] [place] [address] 276 [place] [address] Assigned Pulmonology Provider 09/13/22 05/17/24 Lisa Wright PA-C [address] [place] [address] Assigned PCP 01/24/23 04/17/24 Chanel Asher PA-C [address] [facility] 200 [place] [address] Assigned PCP 04/18/24 06/17/24 Lisa Wright PA-C [address] [place] [address] Assigned PCP 06/18/24 documented as of this encounter
--- OUTSIDE RECORDS SUMMARY | 2024-09-19 03:08 | XMS_ITS | Encounter Summary ---
Author Organization [facility] Address [address] [place] [address]. [place] [address] Care Team Providers Care Starting Sheet Tank Operator Name Role Phone DeedeeAnnalisa dean APRN, CNP Primary Care Provi miguel Unavailable Deedee, Annalisa Peacock APRN RADIOLOGICAL METALLURGIST Unavailable Un available Deedee, Ananlisa Peacock APRN, CNP Unavailable Un available Mukul Rivas PA-C Unavailable + [phone] DeedeeAnnalisa dean APRN, CNP Unavailable Un available Mukul Rivas PA-C Unavailable [phone] Deedee, Annalisa Peaccok APRN RADIOLOGICAL METALLURGIST Unavailable Un available Jacob Carmona MD Unavailable + [phone] Leonor Burgos MD Unavailable + DeedeeAnnalisa dean APRN RADIOLOGICAL METALLURGIST Unavailable Un available Jacob Carmona MD Primary Care Provider Leonor Burgos MD Unavailable + [facility] Primary Care Provider DeedeeAnnalisa dean APRN RADIOLOGICAL METALLURGIST Unavailable Un available Curtis Núñez MD Unavailable [phone] Leonor Burgosn MD Unavailable + DeedeeAnnalisa dean JADEN RADIOLOGICAL METALLURGIST Unavailable Un available Lisa Wright PA-C Primary Care Provider iLsa Wright PA-C Unavailable [phone] Chanel Asher PA-C Unavailable Lisa Wright PA-C Unavailable [phone] Reason for Visit * Reason Onset Date Comments Allied Health Visit 07/06/2018 Flu Swab Encounter Details Date Type Department Care Team (Late st Contact Info) Description 07/06/2018 [facility] Medical Advice [address] [address] Chanel Asher PA-C [address] [facility] 200 [place] [address] Allied Health Visit (Flu Swab) Social History Tobacco Use Types Packs/Day Years Used Date Smoking Tobacco: Never Smokeless Tobacco: Never Alcohol Use Standard Drinks/Week Comments No 0 (1 standard drink = 0.6 oz pur e alcohol) Occaisional Comments No Sex and Gender Information Value Date Recorded Sex Assigned at Female 03/25/2021 2:01 PM CDT Legal Sex Female 3:18 AM LABORER HEADING Gender Identity Female 03/25/2021 2:01 PM CDT [...] current vitals from visit. ?? Avery Boswell CMA (MA) RER HEADING documented in this encounter Plan of Treatment [...] Out C-difficile 09/10/2022 09/10/2022 023 5:27 PM LABORER HEADING C-difficile 09/10/2022 09/10/2022 10/10/2022 11:3 9 PM CDT Assessment Noted Time PHQ-9 Depression Total Score: 7 06/04/20 18 3:40 PM LABORER HEADING documented as of this encounter Care Teams Starting Sheet Tank Operator Relationship Specialty Start Date End Date Annalisa Mark APRN RADIOLOGICAL METALLURGIST PCP - General Nurse Practitioner 03/22/15 06/29/22 Annalisa Mark APRN RADIOLOGICAL METALLURGIST PCP - Assigned PCP 06/06/18 09/28/18 Jacob Carmona MD [address] [place] [address] PCP - General 06/30/22 08/28/22 [facility] [address] [place] [address] PCP - General 08/29/22 01/18/23 Lisa Wright PA-C [address] [place] [phone] PCP - General Family Medicine 01/19/23 Annalisa Mark APRN RADIOLOGICAL METALLURGIST Assigned PCP 06/06/18 07/02/19 Mukul Rivas PA-C [address] [place] [address], [place] [address] Assigned PCP 07/03/19 11/19/19 Annalisa Mark APRN RADIOLOGICAL METALLURGIST Assigned PCP 11/20/19 12/10/19 Mukul Rivas PA-C [address] [place] [address], [place] [address] Assigned PCP 12/11/19 01/21/20 Annalisa Mark APRN RADIOLOGICAL METALLURGIST Assigned PCP 01/22/20 02/21/22 Jacob Carmona MD [address] [place] [address] Assigned OBGYN Provider 05/18/20 Leonor Burgos MD ARISE [address] [address] Assigned PCP 02/22/22 05/16/22 Annalisa Mark APRN RADIOLOGICAL METALLURGIST Assigned PCP 05/17/22 08/15/22 Leonor Burgos MD ARISE [address] [facility] 207 [place] [address] Assigned PCP 08/16/22 08/29/22 Annalisa Mark APRN RADIOLOGICAL METALLURGIST [address] [place] [address] Assigned PCP 08/30/22 11/21/22 Curtis Núñez MD [address] [facility] 276 [place] [address] Assigned Pulmonology Provider 09/13/22 05/17/24 Leonor Burgos MD ARISE [address] [facility] 207 [place] [address] Assigned PCP 11/22/22 11/28/22 Annalisa Mark APRN RADIOLOGICAL METALLURGIST Assigned PCP 11/29/22 01/23/23 Lisa Wright PA-C [address] [place] [phone] Assigned PCP 01/24/23 04/17/24 Chanel Asher PA-C 6565 [facility] 200 [place], [place] [address] Assigned PCP 04/18/24 06/17/24 Lisa Wright PA-C [address] [place] [phone] Assigned PCP 06/18/24 documented as of this encounter
--- OUTSIDE RECORDS SUMMARY | 2024-09-19 03:08 | XMS_ITS | Encounter Summary ---
Author Organization [facility] Address [address] [place] [address]. [place] [address] Care Team Providers Care Education Paraprofessional Name Role Phone Annalisa Mark APRN, CNP Primary Care Provi miguel Unavailable Leonor Burgos MD Unavailable + Deedee, Annalisa Peacock APRN, CNP Unavailable Un available DeedeeAnnalisa dean APRN, CNP Unavailable Un available Mukul Rivas PA-C Unavailable + [phone] DeedeeAnnalisa APRN, CNP Unavailable Un available Mukul Rivas PA-C Unavailable +[phone] Deedee, Annalisa Peacock APRN, CNP Unavailable Un available Jacob Carmona MD Unavailable + [phone] Leonor Burgos MD Unavailable + DeedeeAnnalisa dean APRN, CNP Unavailable Un available Jacob Carmona MD Primary Care Provider Leonor Burgos MD Unavailable + [facility] Primary Care Provider DeedeeAnnalisa dean APRN, CNP Unavailable Un available Curtis Núñez MD Unavailable Leonor Burgos MD Unavailable + Annalisa Mark APRN STARTING GATE DRIVER Unavailable Un available Angelica Wrighttana Moore PA-C Primary Care Provider [phone] Norm Wrightkendall Moore PA-C Unavailable [phone] Chanel Asher Nicolle PA-C Unavailable Lisa Wright Teresa PA-C Unavailable [phone] Encounter Details Date Type Department Care Team (Late st Contact Info) Description 04/21/2017 [facility] Medical Advice [facility]'s [address] [place] [phone] Pete Martin MD NO INFO AVAILABLE 02/17/23 Social History Tobacco Use Types Packs/Day Years Used Date Smoking Tobacco: Never Smokeless Tobacco: Never Alcohol Use Standard Drinks/Week Comments No 0 (1 standard drink = 0.6 oz pur e alcohol) Occaisional Comments No Sex and Gender Information Value Date Recorded Sex Assigned at Female 03/25/2021 2:01 PM CDT Legal Sex Female 3:18 AM PROFESSOR OF COMMUNICATION ARTS Gender Identity Female 03/25/2021 2:01 PM CDT Sexual Orientation Straight 03/25/2021 2: 01 PM CDT documented as of this encounter Miscellaneous Notes * Telephone Encounter - Pamella Chapman RN - 04/21/2017 10:18 AM CDT Please address the my chart message. Geronimo Chapman RN documented in this encounter [...] C-difficile 09/10/2022 09/10/2022 023 5:27 PM PROFESSOR OF COMMUNICATION ARTS C-difficile 09/10/2022 09/10/2022 10/10/2022 11:3 9 PM CDT Assessment Noted Time PHQ-9 Depression Total Score: 0 12/31/19 17 7:26 AM CDT documented as of this encounter Care Teams Education Paraprofessional Relationship Specialty Start Date End Date Annalisa Mark APRN STARTING GATE DRIVER PCP - General Nurse Practitioner 03/22/15 06/29/22 Leonor Burgos MD [place] [address] [address] PCP - Assigned PCP 12/13/17 06/05/18 Annalisa Mark APRN STARTING GATE DRIVER PCP - Assigned PCP 06/06/18 09/28/18 Jacob Carmona MD [address] [place] [address] PCP - General 06/30/22 08/28/22 Clinic - [facility] [address] [place] [address] PCP - General 08/29/22 01/18/23 Lisa Wright PA-C [address] [place] [phone] PCP - General Family Medicine 01/19/23 Annalisa Mark APRN STARTING GATE DRIVER Assigned PCP 06/06/18 07/02/19 Mukul Rivas PA-C [address] [place] [address] Assigned PCP 07/03/19 11/19/19 Annalisa Mark APRN STARTING GATE DRIVER Assigned PCP 11/20/19 12/10/19 Mukul Rivas PA-C [address] [place] [address], [place] [address] Assigned PCP 12/11/19 01/21/20 Annalisa Mark APRN STARTING GATE DRIVER Assigned PCP 01/22/20 02/21/22 Jacob Carmona MD [address] [place] [address] Assigned OBGYN Provider 05/18/20 Leonor Burgos MD [place] [address] [employer] [address] [place] [address] Assigned PCP 02/22/22 05/16/22 Annalisa Mark APRN STARTING GATE DRIVER Assigned PCP 05/17/22 08/15/22 Leonor Burgos MD [place] [address] [employer] [address] [place] [address] Assigned PCP 08/16/22 08/29/22 Annalisa Mark APRN STARTING GATE DRIVER [address] [place] [address] Assigned PCP 08/30/22 11/21/22 Curtis Núñez MD 420 [facility] 276 [place] [address] Assigned Pulmonology Provider 09/13/22 05/17/24 Leonor Burgos MD ARISE [address] [facility] 207 [place] [address] Assigned PCP 11/22/22 11/28/22 Annalisa Mark APRN STARTING GATE DRIVER Assigned PCP 11/29/22 01/23/23 Lisa Wright PA-C [address] [place] [phone] Assigned PCP 01/24/23 04/17/24 Chanel Asher PA-C 6565 [facility] 200 [place], [place] [address] Assigned PCP 04/18/24 06/17/24 Lisa Wright PA-C [address] [place] [phone] Assigned PCP 06/18/24 documented as of this encounter
--- OUTSIDE RECORDS SUMMARY | 2024-09-19 03:08 | XMS_ITS | Encounter Summary ---
Author Organization [employer] Address [address] [place] [address]. [place] [address] Care Team Providers Care Customs Inspector Name Role Phone Annalisa Mark APRN, CNP Primary Care Provi miguel Unavailable Leonor Burgos MD Unavailable + Deedee, Annalisa Peacock APRN, CNP Unavailable Un available DeedeeAnnalisa dean APRN, CNP Unavailable Un available Mukul Rivas PA-C Unavailable + [phone] DeedeeAnnalisa APRN, CNP Unavailable Un available Mukul Rivas PA-C Unavailable [phone] Deedee, Annalisa Peacock APRN, CNP Unavailable Un available Jacob Carmona MD Unavailable + [phone] Leonor Burgos MD Unavailable + DeedeeAnnalisa dean APRN, CNP Unavailable Un available Jacob Carmona MD Primary Care Provider Leonor Burgos MD Unavailable + [facility] Primary Care Provider DeedeeAnnalisa dean APRN, CNP Unavailable Un available Curtis Núñez MD Unavailable Leonor Burgos MD Unavailable + Annalisa Mark APRN STRESS ANALYST Unavailable Un available Lisa Wright Teresa PA-C Primary Care Provider [phone] Angelica Wrighttana Moore PA-C Unavailable [phone] Chanel Asher PA-C Unavailable Lisa Wright Teresa PA-C Unavailable [phone] Encounter Details Date Type Department Care Team (Late st Contact Info) Description 06/07/2017 [facility] Medical Advice [facility]'s [address] [place] [phone] Pete Martin MD NO INFO AVAILABLE 02/17/23 Social History Tobacco Use Types Packs/Day Years Used Date Smoking Tobacco: Never Smokeless Tobacco: Never Alcohol Use Standard Drinks/Week Comments No 0 (1 standard drink = 0.6 oz pur e alcohol) Occaisional Comments No Sex and Gender Information Value Date Recorded Sex Assigned at Female 03/25/2021 2:01 PM CDT Legal Sex Female 3:18 AM 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 COUNTY ENGINEER Gender Identity Female 03/25/2021 2:01 PM [...] Out C-difficile 09/10/2022 09/10/2022 023 5:27 PM ASSISTANT COUNTY ENGINEER C-difficile 09/10/2022 09/10/2022 10/10/2022 11:3 9 PM CDT Assessment Noted Time PHQ-9 Depression Total Score: 0 12/31/19 17 7:26 AM CDT documented as of this encounter Care Teams Customs Inspector Relationship Specialty Start Date End Date Annalisa Mark APRN STRESS ANALYST PCP - General Nurse Practitioner 03/22/15 06/29/22 Leonor Burgos MD [place] [address] [place] [address] PCP - Assigned PCP 12/13/17 06/05/18 Annalisa Mark APRN STRESS ANALYST PCP - Assigned PCP 06/06/18 09/28/18 Jacob Carmona MD [address] [place] [address] PCP - General 06/30/22 08/28/22 [facility] [id number] [place] [phone] PCP - General 08/29/22 01/18/23 Lisa Wright PA-C [address] [place] [address] PCP - General Family Medicine 01/19/23 Annalisa Mark APRN STRESS ANALYST Assigned PCP 06/06/18 07/02/19 Mukul Rivas PA-C [address] [place] [address] Assigned PCP 07/03/19 11/19/19 Annalisa Mark APRN STRESS ANALYST Assigned PCP 11/20/19 12/10/19 Mukul Rivas PA-C [address] [place] [id number] Assigned PCP 12/11/19 01/21/20 Annalisa Mark APRN STRESS ANALYST Assigned PCP 01/22/20 02/21/22 Jacob Carmona MD [address] [place] [address] Assigned OBGYN Provider 05/18/20 Leonor Burgos MD [place] [address] [employer] [address] [place] [address] Assigned PCP 02/22/22 05/16/22 Annalisa Mark APRN STRESS ANALYST Assigned PCP 05/17/22 08/15/22 Leonor Burgos MD [place] 7447 [employer] 207 [place] [address] Assigned PCP 08/16/22 08/29/22 Annalisa Mark APRN STRESS ANALYST [address] [place] [address] Assigned PCP 08/30/22 11/21/22 Curtis Núñez MD 420 [facility] 276 [place], [place] [address] Assigned Pulmonology Provider 09/13/22 05/17/24 Leonor Burgos MD [place] [address] [employer] [address] 207 [place] [address] Assigned PCP 11/22/22 11/28/22 Annalisa Mark APRN [facility] Assigned PCP 11/29/22 01/23/23 Lisa Wright PA-C [address] [place] [phone] Assigned PCP 01/24/23 04/17/24 Chanel Asher PA-C 6565 [facility] [address] [place] [address] Assigned PCP 04/18/24 06/17/24 Lisa Wright PA-C [address] [place] [phone] Assigned PCP 06/18/24 documented as of this encounter
--- OUTSIDE RECORDS SUMMARY | 2024-09-19 03:08 | XMS_ITS | Encounter Summary ---
Author Organization [facility] Address [facility] [place] [address] Care Team Providers Care Registered Medical Transcriptionist Name Role Phone Annalisa Mark APRN, CNP Primary Care Provi miguel Unavailable DeedeeAnnalisa dean APRN PLANT MANAGER Unavailable Un available Mukul Rivas PA-C Unavailable + [phone] Annalisa Mark APRN, CNP Unavailable Un available Jacob Carmona MD Unavailable [phone] Leonor Burgos MD Unavailable + Annalisa Mark APRN, CNP Unavailable Un available Jacob Carmona MD Primary Care Provider Leonor Burgos MD Unavailable + [facility] Primary Care Provider Annalisa Mark APRN, CNP Unavailable Un available Curtis Núñez MD Unavailable [phone] Leonor Burgos MD Unavailable + Annalisa Mark APRN, CNP Unavailable Un available Lisa Wright PA-C Primary Care Provider [phone] Lisa Wright PA-C Unavailable [phone] Chanel Asher Nicolle TRACY Unavailable [phone] Lisa Wright PA-C Unavailable [phone] Reason for Visit * Reason Onset Date Comments Patient Request 11/20/2019 Encounter Details Date Type Department Care Team (Late st Contact Info) Description 11/20/2019 [facility] Medical Advice [address] [phone] Annalisa Mark, JADEN PLANT MANAGER Patient Request Social History Tobacco Use Types [...] 02/15/2019 Lack of Transportation (Non-Medical) No 02/15/2019 Hymera Depression Scale Answer Date Recorded Hymera Depression Score 2 09/21/2019 Last EPDS Self Harm Result Not on file 09/21 Education Answer Date Recorded What is the highest level of school you have completed or the highest degree you have received? 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 CHRIST Crawford Rachael A to Annalisa Mark, JADEN PLANT MANAGER ?? 11/21/19 8:25 AM Hi! ?? Maybe [...] Out C-difficile 09/10/2022 09/10/2022 023 5:27 PM AUGER MILL OPERATOR C-difficile 09/10/2022 09/10/2022 10/10/2022 11:3 9 PM CDT Assessment Noted Time PHQ-9 Depression Total Score: 3 12/08/19 19 7:05 AM CDT documented as of this encounter Care Teams Registered Medical Transcriptionist Relationship Specialty Start Date End Date Annalisa Mark APRN PLANT MANAGER PCP - General Nurse Practitioner 03/22/15 06/29/22 Jacob Carmona MD [address] [place] [address] PCP - General 06/30/22 08/28/22 [facility] [address] [place] [address] PCP - General 08/29/22 01/18/23 Lisa Wright PA-C [address] [place] [address] PCP - General Family Medicine 01/19/23 Annalisa Mark APRN PLANT MANAGER Assigned PCP 11/20/19 12/10/19 Mukul Rivas PA-C [address] [place] [address] Assigned PCP 12/11/19 01/21/20 Annalisa Mark APRN PLANT MANAGER Assigned PCP 01/22/20 02/21/22 Jacob Carmona MD [address] [place] [address] Assigned OBGYN Provider 05/18/20 Leonor Burgos MD [place] [address]447 [employer] [address] [place] [address] Assigned PCP 02/22/22 05/16/22 Annalisa Mark APRN PLANT MANAGER Assigned PCP 05/17/22 08/15/22 Leonor Burgos MD [place]ISE [address] [employer] [address] [place], [place] [address] Assigned PCP 08/16/22 08/29/22 Annalsia Mark APRN PLANT MANAGER [address] [place] [address] Assigned PCP 08/30/22 11/21/22 Curtis Núñez MD [address] [place] [address] 276 [place] [address] Assigned Pulmonology Provider 09/13/22 05/17/24 Leonor Burgos MD [place] 7447 [facility] 207 [place] [address] Assigned PCP 11/22/22 11/28/22 Annalisa Mark APRN PLANT MANAGER Assigned PCP 11/29/22 01/23/23 Lisa Wright PA-C [address] [place] [address] Assigned PCP 01/24/23 04/17/24 Chanel Asher PA-C 6565 [facility] 200 [place] [address] Assigned PCP 04/18/24 06/17/24 Lisa Wright PA-C [address] [place] [phone] Assigned PCP 06/18/24 documented as of this encounter
--- OUTSIDE RECORDS SUMMARY | 2024-09-19 03:08 | XMS_ITS | Encounter Summary ---
Author Organization [facility] Address [address] [place] [address]. [place] [address] Care Team Providers Care Mill Attendant Name Role Phone Annalisa Mark APRN, CNP Primary Care Provi miguel Unavailable Annalisa Mark APRN, CNP Unavailable Un available Jacob Carmona MD Unavailable Leonor Burgos MD Unavailable + Annalisa Mark APRN, CNP Unavailable Un available SabJacob sylvester MD Primary Care Provider Leonor Burgos MD Unavailable + [facility] Primary Care Provider Annalisa Mark APRN, CNP Unavailable Un available Curtis Núñez MD Unavailable Leonor Burgos MD Unavailable + Annalisa Mark APRN, CNP Unavailable Un available Lisa Wright PA-C Primary Care Provider [phone] Lisa Wright PA-C Unavailable [phone] Chanel Asher PA-C Unavailable [phone] Lisa Wright PA-C Unavailable [phone] Reason for Visit * Reason Onset Date Comments Mouth Lesions 05/01/2020 Encounter Details Date Type Department Care Team (Late st Contact Info) Description 05/01/2020 My[facility] Medical Advice [address] [phone] Annalisa Mark APRN DIRECTOR VETERINARY Mouth Lesions Social History Tobacco Use Types [...] 02/15/2019 Lack of Transportation (Non-Medical) No 02/15/2019 Gove Depression Scale Answer Date Recorded Gove Depression Score 2 09/21/2019 Last EPDS Self Harm Result Not on file 09/21 Education Answer Date Recorded What is the highest level of school you have completed or the highest degree you have received? 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 No / Unsure 05/03/2020 11:21 AM CDT documented as of this encounter Miscellaneous Notes * Telephone Encounter - Annalisa Mark APRN CNP - 05/01/2020 11:06 PM CDT Please schedule Tameka for a clinic visit with me on 05/03 at 11:40 am, she will arrive at [address] for the exam is oral lesion and she does know about the visit. Thanks Annalisa Mark CNP * Telephone Encounter - Annalisa Mark APRN CNP - 05/01/2020 10:14 PM CDT Responded to [employer] message. Annalisa Mark CNP documented in this [...] Out C-difficile 09/10/2022 09/10/2022 023 5:27 PM DERRICK BOAT CAPTAIN C-difficile 09/10/2022 09/10/2022 10/10/2022 11:3 9 PM CDT Assessment Noted Time PHQ-9 Depression Total Score: 2 12/08/19 20 7:04 AM CDT documented as of this encounter Care Teams Mill Attendant Relationship Specialty Start Date End Date Annalisa Mark APRN CNP PCP - General Nurse Practitioner 03/22/15 06/29/22 Jacob Carmona MD [address] [place] [address] PCP - General 06/30/22 08/28/22 [facility] [address] [place] [address] PCP - General 08/29/22 01/18/23 Lisa Wright PA-C [address] [place] [phone] PCP - General Family Medicine 01/19/23 Annalisa Mark APRN DIRECTOR VETERINARY Assigned PCP 01/22/20 02/21/22 Jacob Carmona MD [address] [place] [address] Assigned OBGYN Provider 05/18/20 Leonor Burgos MD ARISE 7447 [employer] [address] [place] [address] Assigned PCP 02/22/22 05/16/22 Annalisa Mark APRN DIRECTOR VETERINARY Assigned PCP 05/17/22 08/15/22 Leonor Burgos MD ARISE [address] [employer] [address] [place] [address] Assigned PCP 08/16/22 08/29/22 Annalisa Mark APRN DIRECTOR VETERINARY [address] [place] [address] Assigned PCP 08/30/22 11/21/22 Curtis Núñez MD [address] [place] [address] 276 [place] [address] Assigned Pulmonology Provider 09/13/22 05/17/24 Leonor Burgos MD ARISE 7447 [facility] 207 [place], [place] [address] Assigned PCP 11/22/22 11/28/22 Annalisa Mark APRN DIRECTOR VETERINARY Assigned PCP 11/29/22 01/23/23 Lisa Wright PA-C [address] [place] [address] Assigned PCP 01/24/23 04/17/24 Chanel Asher PA-C 65[address] [facility] 200 [place], [place] [address] Assigned PCP 04/18/24 06/17/24 Lisa Wright PA-C [address] [place] [phone] Assigned PCP 06/18/24 documented as of this encounter
--- OUTSIDE RECORDS SUMMARY | 2024-09-19 03:08 | XMS_ITS | Encounter Summary ---
Author Organization [facility] Address [address] [place] [address]. [place] [address] Care Team Providers Care Surveyor Geodetic Name Role Phone Annalisa Mark APRN, CNP Primary Care Provi miguel Unavailable Leonor Burgos MD Unavailable + Deedee, Annalisa Peacock APRN, CNP Unavailable Un available DeedeeAnnalisa dean APRN, CNP Unavailable Un available Mukul Rivas PA-C Unavailable + [phone] DeedeeAnnalisa APRN, CNP Unavailable Un available Mukul Rivas PA-C Unavailable [phone] Deedee, Annalisa Peacock APRN, CNP Unavailable Un available Jacob Carmona MD Unavailable + [phone] Leonor Burgos MD Unavailable + DeedeeAnnalisa dean APRN, CNP Unavailable Un available Jacob Carmona MD Primary Care Provider Leonor Burgos MD Unavailable + [facility] Primary Care Provider DeedeeAnnalisa dean APRN, CNP Unavailable Un available Curtis Núñez MD Unavailable Leonor Burgos MD Unavailable + Annalisa Mark APRN PILATES INSTRUCTOR Unavailable Un available KyleNormLisa M PA-C Primary Care Provider Lisa Wright PA-C Unavailable [phone] Chanel Asher PA-C Unavailable [phone] Norm Wrightkendall Moore PA-C Unavailable [phone] Encounter Details Date Type Department Care Team (Late st Contact Info) Description 12/25/2016 MyC Medical Advice [address] [phone] Annalisa Mark, JADEN MONTALVO Social History Tobacco Use Types Packs/Day Years Used Date Smoking Tobacco: Never Smokeless Tobacco: Never Alcohol Use Standard Drinks/Week Comments No 0 (1 standard drink = 0.6 oz pur e alcohol) Occaisional Comments No Sex and Gender Information Value Date Recorded Sex Assigned at Female 03/25/2021 2:01 PM CDT Legal Sex Female 3:18 AM ROLL GRINDER Gender Identity Female 03/25/2021 2:01 PM CDT [...] Out C-difficile 09/10/2022 09/10/2022 023 5:27 PM ROLL GRINDER C-difficile 09/10/2022 09/10/2022 10/10/2022 11:3 9 PM CDT Assessment Noted Time PHQ-9 Depression Total Score: 5 04/22/20 16 7:19 AM CDT documented as of this encounter Care Teams Surveyor Geodetic Relationship Specialty Start Date End Date Annalisa Mark APRN PILATES INSTRUCTOR PCP - General Nurse Practitioner 03/22/15 06/29/22 Leonor Burgos MD [place] [address] [place] [address] PCP - Assigned PCP 12/13/17 06/05/18 Annalisa Mark APRN PILATES INSTRUCTOR PCP - Assigned PCP 06/06/18 09/28/18 Jacob Carmona MD [address] [place] [address] PCP - General 06/30/22 08/28/22 [facility] [address] [place], [place] [phone] PCP - General 08/29/22 01/18/23 Lisa Wright PA-C [address] [place] [phone] PCP - General Family Medicine 01/19/23 Annalisa Mark APRN PILATES INSTRUCTOR Assigned PCP 06/06/18 07/02/19 Mukul Rivas PA-C [address] [place] [phone] Assigned PCP 07/03/19 11/19/19 Annalisa Mark APRN PILATES INSTRUCTOR Assigned PCP 11/20/19 12/10/19 Mukul Rivas PA-C [address] [place] [id number] Assigned PCP 12/11/19 01/21/20 Annalisa Mark APRN PILATES INSTRUCTOR Assigned PCP 01/22/20 02/21/22 Jacob Carmona MD [address] [place] [address] Assigned OBGYN Provider 05/18/20 Leonor Burgos MD ARISE [address]447 [employer] [address] [place] [address] Assigned PCP 02/22/22 05/16/22 Annalisa Mark APRN PILATES INSTRUCTOR Assigned PCP 05/17/22 08/15/22 Leonor Burgos MD ARISE 7447 [email or web address] [address] [place], [place] [address] Assigned PCP 08/16/22 08/29/22 Annalisa Mark APRN PILATES INSTRUCTOR [address] [place] [address] Assigned PCP 08/30/22 11/21/22 Curtis Núñez MD 420 [facility] 276 [place], [place] [address] Assigned Pulmonology Provider 09/13/22 05/17/24 Leonor Burgos MD ARISE [address] [employer] [address] [place] [address] Assigned PCP 11/22/22 11/28/22 Deedee Annalisa JADEN Peacock PILATES INSTRUCTOR Assigned PCP 11/29/22 01/23/23 Lisa Wright PA-C [address] [facility] [address] Assigned PCP 01/24/23 04/17/24 Chanel Asher PA-C 6565 [facility] 200 [place] [address] Assigned PCP 04/18/24 06/17/24 Lisa Wright PA-C [address] [facility] [phone] Assigned PCP 06/18/24 documented as of this encounter
--- OUTSIDE RECORDS SUMMARY | 2024-09-19 03:08 | XMS_ITS | Encounter Summary ---
Author Organization [place] Address [address] [place] [address]. [place] [address] Care Team Providers Care Inside Sales Assistant Name Role Phone Annalisa Mark APRN, CNP Primary Care Provi miguel Unavailable Deedee, Annalisa Peacock APRN, CNP Unavailable Un available Mukul Rivas PA-C Unavailable + [phone] Deedee, Annalisa Peacock APRN, CNP Unavailable Un available Mukul Rivas PA-C Unavailable [phone] Deedee, Annalisa Peacock APRN, CNP Unavailable Un available Jacob Carmona MD Unavailable + [phone] Leonor Burgos MD Unavailable + DeedeeAnnalisa dean APRN, CNP Unavailable Un available Jacob Carmona MD Primary Care Provider Leonor Burgos MD Unavailable + [facility] Primary Care Provider Annalisa Mark APRN, CNP Unavailable Un available Curtis Núñez MD Unavailable [phone] Leonor Burgos MD Unavailable + Annalisa Mark PORTAL ARCHITECT VARNISH MELTER HELPER Unavailable Un available Lisa Wright PA-C Primary Care Provider Lisa Wright PA-C Unavailable [phone] Chanel Asher DEMARCUS Unavailable [phone] Norm Wrightkendall Moore PA-C Unavailable [phone] Encounter Details Date Type Department Care Team (Late st Contact Info) Description 09/29/2018 MyC Medical Advice [facility] [address] [place] [address] Pete Martin MD NO INFO AVAILABLE 02/17/23 Social History Tobacco Use Types Packs/Day Years Used Date Smoking Tobacco: Never Smokeless Tobacco: Never Alcohol Use Standard Drinks/Week Comments No 0 (1 standard drink = 0.6 oz pur e alcohol) Occaisional PHQ-2 Answer Date Recorded PHQ-2 Score 0 08/03/2018 Comments No Sex and Gender Information Value Date Recorded Sex Assigned at Female 03/25/2021 2:01 PM CDT Legal Sex Female 3:18 AM CALENDER ROLL PRESS OPERATOR Gender Identity Female 03/25/2021 2:01 PM [...] Out C-difficile 09/10/2022 09/10/2022 023 5:27 PM CALENDER ROLL PRESS OPERATOR C-difficile 09/10/2022 09/10/2022 10/10/2022 11:3 9 PM CDT Assessment Noted Time PHQ-9 Depression Total Score: 7 06/04/20 18 3:40 PM CALENDER ROLL PRESS OPERATOR documented as of this encounter Care Teams Inside Sales Assistant Relationship Specialty Start Date End Date Annalisa Mark APRN VARNISH MELTER HELPER PCP - General Nurse Practitioner 03/22/15 06/29/22 Jacob Carmona MD [address] [place] [address] PCP - General 06/30/22 08/28/22 [facility] [address] [place], [place] [id number] PCP - General 08/29/22 01/18/23 Lisa Wright PA-C [address] [place] [address] PCP - General Family Medicine 01/19/23 Annalisa Mark APRN VARNISH MELTER HELPER Assigned PCP 06/06/18 07/02/19 Mukul Rivas PA-C [address] [address] Assigned PCP 07/03/19 11/19/19 Annalisa Mark APRN VARNISH MELTER HELPER Assigned PCP 11/20/19 12/10/19 Mukul Rivas PA-C [address] [address] Assigned PCP 12/11/19 01/21/20 Annalisa Mark APRN VARNISH MELTER HELPER Assigned PCP 01/22/20 02/21/22 Jacob Carmona MD [address] [place] [address] Assigned OBGYN Provider 05/18/20 Leonor Burgos MD ARISE [address] [place] [address] Assigned PCP 02/22/22 05/16/22 Annalisa Mark APRN VARNISH MELTER HELPER Assigned PCP 05/17/22 08/15/22 Leonor Burgos MD ARISE [address] [place] [address] Assigned PCP 08/16/22 08/29/22 Annalisa Mark APRN VARNISH MELTER HELPER [address] [place] [address] Assigned PCP 08/30/22 11/21/22 Curtis Núñez MD 420 [facility] 276 [place] [address] Assigned Pulmonology Provider 09/13/22 05/17/24 Leonor Burgos MD ARISE [address] [place] [address] Assigned PCP 11/22/22 11/28/22 Annalisa Mark APRN VARNISH MELTER HELPER Assigned PCP 11/29/22 01/23/23 Lisa Wright PA-C [address] [place] [address] Assigned PCP 01/24/23 04/17/24 Chanel Asher PA-C 6565 [facility] 200 [place], [place] [address] Assigned PCP 04/18/24 06/17/24 Lisa Wright PA-C [address] [place] [address] Assigned PCP 06/18/24 documented as of this encounter
--- OUTSIDE RECORDS SUMMARY | 2024-09-19 03:08 | XMS_ITS | Encounter Summary ---
Author Organization [place] Address [address] [place] [address]. [place] [address] Care Team Providers Care Tile Molder Name Role Phone Annalisa Mark APRN PIGMENT SUPPLIER Primary Care Provi miguel Unavailable Jacob Carmona MD Unavailable [phone] Annalisa Mark APRN, CNP Unavailable Un available Jacob Carmona MD Primary Care Provider FroylanLeonor Quinones MD Unavailable + [facility] Primary Care Provider Annalisa Mark APRN PIGMENT SUPPLIER Unavailable Un available Curtis Núñez MD Unavailable [phone] Leonor Burgos MD Unavailable + Annalisa Mark APRN PIGMENT SUPPLIER Unavailable Un available Lisa Wright PA-C Primary Care Provider [phone] Lisa Wright PA-C Unavailable [phone] Chanel Asher PA-C Unavailable [phone] Lisa Wright PA-C Unavailable [phone] Reason for Visit * Reason Onset Date Comments Pelvic Pain 06/26/2022 Encounter Details Date Type Department Care Team (Late st Contact Info) Description 06/26/2022 MyC Medical Advice [facility] [address] [facility] [address] [place] [address] Jacob Carmona MD [address] [place] [address] Pelvic Pain Social History Tobacco Use Types [...] week 10/16/2021 How often do you attend [facility] or shinto services? Patient declined 10/16/2021 Do [...] Answer Date Recorded PHQ-2 Score 0 04/08/2022 [facility] of Occupat ional Health - Occupational Stress [...] or slept in a fdc (including now)? No 10/16/2021 [place] Depression Scale Answer Date Recorded [place] Depression Score 2 09/21/2019 Last EPDS Self Harm Result Not on file 09/21 Education Answer Date Recorded What is the highest level of school you have completed or the highest degree you have received? 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 No / Unsure 06/26/2022 10:43 AM STRETCHING PRESS OPERATOR documented as of this encounter Plan of Treatment Not on file documented as of this encounter Visit Diagnoses Not on filedocumented in this encounter Additional Health Concerns Infection Onset Date Last Indicated Resolved Time Rule Out C-difficile 09/10/2022 09/10/2022 023 5:27 PM STRETCHING PRESS OPERATOR C-difficile 09/10/2022 09/10/2022 10/10/2022 11:3 9 PM CDT Assessment Noted Time PHQ-9 Depression Total Score: 1 04/08/20 22 4:38 PM CDT documented as of this encounter Care Teams Tile Molder Relationship Specialty Start Date End Date Annalisa Mark APRN PIGMENT SUPPLIER PCP - General Nurse Practitioner 03/22/15 06/29/22 Jacob Carmona MD [address] [place] [address] PCP - General 06/30/22 08/28/22 [facility] [address] [place] [address] PCP - General 08/29/22 01/18/23 Lisa Wright PA-C [address] [place] [address] PCP - General Family Medicine 01/19/23 Jacob Carmona MD [address] [place] [address] Assigned OBGYN Provider 05/18/20 Annalisa Mark APRN PIGMENT SUPPLIER Assigned PCP 05/17/22 08/15/22 Leonor Burgos MD [place] [address] [place] [address] Assigned PCP 08/16/22 08/29/22 Annalisa Mark APRN PIGMENT SUPPLIER [address] [place] [address] Assigned PCP 08/30/22 11/21/22 Curtis Núñez MD [address] [place] [address] 276 [place] [address] Assigned Pulmonology Provider 09/13/22 05/17/24 Leonor Burgos MD AR[place] [address] [place] [address] Assigned PCP 11/22/22 11/28/22 Annalisa Mark APRN PIGMENT SUPPLIER Assigned PCP 11/29/22 01/23/23 Lisa Wright PA-C [address] [facility] [address] Assigned PCP 01/24/23 04/17/24 Chanel Asher PA-C [address] [facility] 200 [place] [address] Assigned PCP 04/18/24 06/17/24 Lisa Wright PA-C [address] [facility] [place] [address] Assigned PCP 06/18/24 documented as of this encounter
--- OUTSIDE RECORDS SUMMARY | 2024-09-19 03:08 | XMS_ITS | Encounter Summary ---
Author Organization [place] Address [address] [place] [address]. [place] [address] Care Team Providers Care Paper Sales Representative Name Role Phone Annalisa Mark APRN SENIOR TECHNICAL TRAINER Primary Care Provi miguel Unavailable Jacob Carmona MD Unavailable [phone] Annalisa Mark APRN, CNP Unavailable Un available Jacob Carmona MD Primary Care Provider FroylanLeonor Quinones MD Unavailable + [facility] Primary Care Provider Annalisa Mark APRN SENIOR TECHNICAL TRAINER Unavailable Un available Curtis Núñez MD Unavailable [phone] Leonor Burgos MD Unavailable + Annalisa Mark APRN SENIOR TECHNICAL TRAINER Unavailable Un available Lisa Wright PA-C Primary Care Provider [phone] Lisa Wright PA-C Unavailable [phone] Chanel Asher PA-C Unavailable [phone] Lisa Wright PA-C Unavailable [phone] Reason for Visit * Reason Onset Date Comments Results 06/17/2022 Encounter Details Date Type Department Care Team (Late st Contact Info) Description 06/17/2022 MyC Medical Advice [facility] [address] [facility] [address] [place] [address] Jacob Carmona MD [address] [place] [address] Results Social History Tobacco Use Types Packs/Day [...] How often do you attend [facility] or lutheran services? Patient declined 10/16/2021 Do you belong [...] PHQ-2 Score 0 04/08/2022 [facility] [place] of Occupat ional Health - Occupational Stress [...] or slept in a jail (including now)? No 10/16/2021 [place] Depression Scale Answer Date Recorded [place] Depression Score 2 09/21/2019 Last EPDS Self Harm Result Not on file 09/21 Education Answer Date Recorded What is the highest level of school you have completed or the highest degree you have received? 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 No / Unsure 06/17/2022 9:46 AM PROTOTYPE SPECIAL BUILD documented as of this encounter Miscellaneous Notes * Telephone Encounter - Casie Santos RN - 06/23/2022 8:[address] order for procedure when you are able. Pt states something to remove my polyp and I would be put out. Casie Escobedo LASER/ELECTRO OPTICS TECHNICIAN OTYPE SPECIAL BUILD documented in this encounter Plan of Treatment Not on file documented as of this encounter Visit Diagnoses Not on filedocumented in this encounter Additional Health Concerns Infection Onset Date Last Indicated Resolved Time Rule Out C-difficile 09/10/2022 09/10/2022 023 5:27 PM PROTOTYPE SPECIAL BUILD C-difficile 09/10/2022 09/10/2022 10/10/2022 11:3 9 PM CDT Assessment Noted Time PHQ-9 Depression Total Score: 1 04/08/20 22 4:38 PM CDT documented as of this encounter Care Teams Paper Sales Representative Relationship Specialty Start Date End Date Annalisa Mark APRN SENIOR TECHNICAL TRAINER PCP - General Nurse Practitioner 03/22/15 06/29/22 Jacob Carmona [place] [address] PCP - General 06/30/22 08/28/22 [facility] [address] [place], [place] [id number] PCP - General 08/29/22 01/18/23 Lisa Wright PA-C [address] [place] [address] PCP - General Family Medicine 01/19/23 Jacob Carmona MD [address] [place] [address] Assigned OBGYN Provider 05/18/20 Annalisa Mark APRN SENIOR TECHNICAL TRAINER Assigned PCP 05/17/22 08/15/22 Leonor Burgos MD AR[place] [address] [employer] [address] [place] [address] Assigned PCP 08/16/22 08/29/22 Annalisa Mark APRN SENIOR TECHNICAL TRAINER [address] [place] [address] Assigned PCP 08/30/22 11/21/22 Curtis Núñez MD 420 [facility] 276 [place] [address] Assigned Pulmonology Provider 09/13/22 05/17/24 Leonor Burgos MD ARISE [address] [employer] [address] [place] [address] Assigned PCP 11/22/22 11/28/22 Annalisa Mark APRN SENIOR TECHNICAL TRAINER Assigned PCP 11/29/22 01/23/23 Lisa Wright PA-C [address] [place] [address] Assigned PCP 01/24/23 04/17/24 Chanel Asher PA-C 65[address] [facility] [address] [place] [address] Assigned PCP 04/18/24 06/17/24 Lisa Wright PA-C [address] [place], [place] [address] Assigned PCP 06/18/24 documented as of this encounter
--- OUTSIDE RECORDS SUMMARY | 2024-09-19 03:08 | XMS_ITS | Encounter Summary ---
Author Organization [place] Address [address] [place] [address]. [place] [address] Care Team Providers Care Medical Coding Manager Name Role Phone Annalisa Mark APRN, CNP Primary Care Provi miguel Unavailable Deedee, Annalisa Peacock APRN, CNP Unavailable Un available Mukul Rivas PA-C Unavailable + [phone] Deedee, Annalisa Peacock APRN, CNP Unavailable Un available Mukul Rivas PA-C Unavailable [phone] Deedee, Annalisa Peacock APRN, CNP Unavailable Un available Jacob Carmona MD Unavailable + [phone] Leonor Burgos MD Unavailable + DeedeeAnnalisa dean APRN, CNP Unavailable Un available Jacob Carmona MD Primary Care Provider Leonor Burgos MD Unavailable + [facility] Primary Care Provider Annalisa Mark APRN, CNP Unavailable Un available Curtis Núñez MD Unavailable [phone] Leonor Burgos MD Unavailable + Annalisa Mark BUTT PRESSER ROLL CAPPER Unavailable Un available Lisa Wright PA-C Primary Care Provider Kyle Lisa Moore PA-C Unavailable [phone] Chanel Asher BRENTC Unavailable Angelica Wrighttana Moore PA-C Unavailable [phone] Encounter Details Date Type Department Care Team (Late st Contact Info) Description 05/12/[address] 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 Not on file [...] Out C-difficile 09/10/2022 09/10/2022 023 5:27 PM BOLT LABELER C-difficile 09/10/2022 09/10/2022 10/10/2022 11:3 9 PM CDT Assessment Noted Time PHQ-9 Depression Total Score: 3 12/08/19 19 7:05 AM CDT documented as of this encounter Care Teams Medical Coding Manager Relationship Specialty Start Date End Date Annalisa Mark APRN ROLL CAPPER PCP - General Nurse Practitioner 03/22/15 06/29/22 Jacob Carmona MD [address] [place] [address] PCP - General 06/30/22 08/28/22 [facility] [address] [place] [address] PCP - General 08/29/22 01/18/23 Lisa Wright PA-C [address] [place] [phone] PCP - General Family Medicine 01/19/23 Annalisa Mark APRN ROLL CAPPER Assigned PCP 06/06/18 07/02/19 Mukul Rivas PA-C [address] [place] [address] [place] [id number] Assigned PCP 07/03/19 11/19/19 Annalisa Mark APRN ROLL CAPPER Assigned PCP 11/20/19 12/10/19 Mukul Rivas PA-C [address] [place] [id number] Assigned PCP 12/11/19 01/21/20 Annalisa Mark APRN ROLL CAPPER Assigned PCP 01/22/20 02/21/22 Jacob Carmona MD [address] [place] [address] Assigned OBGYN Provider 05/18/20 Leonor Burgos MD ARISE [address] [employer] [address] [place] [address] Assigned PCP 02/22/22 05/16/22 Annalisa Mark APRN ROLL CAPPER Assigned PCP 05/17/22 08/15/22 Leonor Burgos MD ARISE [address] [employer] [address] [place] [address] Assigned PCP 08/16/22 08/29/22 Annalisa Mark APRN ROLL CAPPER [address] [place] [address] Assigned PCP 08/30/22 11/21/22 Curtis Núñez MD 420 [facility] 276 [place] [address] Assigned Pulmonology Provider 09/13/22 05/17/24 Leonor Burgos MD AR[facility] [address]447 [facility] [address] [place] [address] Assigned PCP 11/22/22 11/28/22 Annalisa Mark APRN ROLL CAPPER Assigned PCP 11/29/22 01/23/23 Lisa Wright PA-C [address] [facility] [place] [phone] Assigned PCP 01/24/23 04/17/24 Chanel Asher PA-C 65[address] [facility] [address] [place] [address] Assigned PCP 04/18/24 06/17/24 Lisa Wright PA-C [address] [facility] [place] [address] Assigned PCP 06/18/24 documented as of this encounter
--- OUTSIDE RECORDS SUMMARY | 2024-09-19 03:08 | XMS_ITS | Encounter Summary ---
Author Organization [place] Address [address] [place] [address]. [place] [address] Care Team Providers Care Sewer Pipe Layer Name Role Phone Annalisa Mark APRN, CNP Primary Care Provi miguel Unavailable Leonor Burgos MD Unavailable + Deedee, Annalisa Peacock APRN, CNP Unavailable Un available DeedeeAnnalisa dean APRN, CNP Unavailable Un available Mukul Rivas PA-C Unavailable + [phone] DeedeeAnnalisa APRN, CNP Unavailable Un available Mukul Rivas PA-C Unavailable [phone] Deedee, Annalisa Peacock APRN, CNP Unavailable Un available Jacob Carmona MD Unavailable + [phone] Leonor Burgos MD Unavailable + DeedeeAnnalisa dean APRN, CNP Unavailable Un available Jacob Carmona MD Primary Care Provider Leonor Burgos MD Unavailable + [facility] Primary Care Provider DeedeeAnnalisa dean APRN, CNP Unavailable Un available Curtis Núñez MD Unavailable Leonor Burgos MD Unavailable + Annalisa Mark APRN ORDER RUNNER Unavailable Un available Lisa Wright Teresa PA-C Primary Care Provider Angelica Wrighttana Moore PA-C Unavailable [phone] Chanel Asher PA-C Unavailable Lisa Wright Teresa PA-C Unavailable [phone] Encounter Details Date Type Department Care Team (Late st Contact Info) Description 01/29/2018 MyC Medical Advice [facility] [address] [place] [address] Latoya Higuera APRN ORDER RUNNER [address] [place] [address] [address] [place], [place] [address] Social History Tobacco Use Types Packs/Day Years Used Date Smoking Tobacco: Never Smokeless Tobacco: Never Alcohol Use Standard Drinks/Week Comments No 0 (1 standard drink = 0.6 oz pur e alcohol) Occaisional Comments No Sex and Gender Information Value Date Recorded Sex Assigned at Female 03/25/2021 2:01 PM CDT Legal Sex Female 3:18 AM HAND I CUTTER Gender Identity Female 03/25/2021 2:01 PM CDT [...] 1 PM CDT Rule Out C-difficile 09/10/2022 09/10/202215/2 023 5:27 PM HAND I CUTTER C-difficile 09/10/2022 09/10/2022 10/10/2022 11:3 9 PM CDT Assessment Noted Time PHQ-9 Depression Total Score: 4 09/25/19 8:33 AM HAND I CUTTER documented as of this encounter Care Teams Sewer Pipe Layer Relationship Specialty Start Date End Date Annalisa Mark APRN ORDER RUNNER PCP - General Nurse Practitioner 03/22/15 06/29/22 Leonor Burgos MD [place] [address] [address] PCP - Assigned PCP 12/13/17 06/05/18 Annalisa Mark APRN ORDER RUNNER PCP - Assigned PCP 06/06/18 09/28/18 Jacob Carmona MD [facility] [place] [address] PCP - General 06/30/22 08/28/22 [facility] [address] [place] [address] PCP - General 08/29/22 01/18/23 Lisa Wright PA-C [address] [place] [address] PCP - General Family Medicine 01/19/23 Annalisa Mark APRN ORDER RUNNER Assigned PCP 06/06/18 07/02/19 Mukul Rivas PA-C [address] [place] [address] Assigned PCP 07/03/19 11/19/19 Annalisa Mark APRN ORDER RUNNER Assigned PCP 11/20/19 12/10/19 Mukul Rivas PA-C [address] [place] [address] Assigned PCP 12/11/19 01/21/20 Annalisa Mark APRN ORDER RUNNER Assigned PCP 01/22/20 02/21/22 Jacob Carmona MD [address] [place] [address] Assigned OBGYN Provider 05/18/20 Leonor Burgos MD AR[place] [address] [address] [address] Assigned PCP 02/22/22 05/16/22 Annalisa Mark APRN ORDER RUNNER Assigned PCP 05/17/22 08/15/22 Leonor Burgos MD ARISE [address] [employer] [address] [place] [address] Assigned PCP 08/16/22 08/29/22 Annalisa Mark APRN ORDER RUNNER [address] [place] [address] Assigned PCP 08/30/22 11/21/22 Curtis Núñez MD 420 [facility] 276 [place] [address] Assigned Pulmonology Provider 09/13/22 05/17/24 Leonor Burgos MD ARISE [address]447 [facility] 207 [place] [address] Assigned PCP 11/22/22 11/28/22 Annalisa Mark APRN ORDER RUNNER Assigned PCP 11/29/22 01/23/23 Lisa Wright PA-C [address] [place] [address] Assigned PCP 01/24/23 04/17/24 Chanel Asher PA-C [address] [facility] [address] [place] [address] Assigned PCP 04/18/24 06/17/24 Lisa Wright PA-C [address] [place] [phone] Assigned PCP 06/18/24 documented as of this encounter
--- OUTSIDE RECORDS SUMMARY | 2024-09-19 03:08 | XMS_ITS | Encounter Summary ---
Author Organization [place] Address [facility] [address] Care Team Providers Care Research Food Technologist Name Role Phone Annalisa Mark APRN, CNP Primary Care Provi miguel Unavailable Mukul Rivas PA-C Unavailable [phone] DeedeeAnnalisa dean APRN, CNP Unavailable Un available Mukul Rivas PA-C Unavailable + [phone] Annalisa Mark APRN, CNP Unavailable Un available Jacob Carmona MD Unavailable [phone] Leonor Burgos MD Unavailable + Annalisa Mark APRN, CNP Unavailable Un available Jacob Carmona MD Primary Care Provider Leonor Burgos MD Unavailable + [facility] Primary Care Provider Annalisa Mark APRN, CNP Unavailable Un available Curtis Núñez MD Unavailable [phone] Leonor Burgos MD Unavailable + Deedee, Annalisa Madonna [employer]ID [employer] TEACHER PEDIATRIC CARDIOLOGIST Unavailable Un available Kyle Lisakendall Moore PA-C Primary Care Provider Kyle Lisa Moore PA-C Unavailable [phone] Chanel Asher PA-C Unavailable [phone] KyleNormLisakendall Moore PA-C Unavailable [phone] Encounter Details Date Type Department Care Team (Late st Contact Info) Description 10/29/2019 MyC Medical Advice [facility] [address] [facility] [address] [place] [address] Jacob Carmona MD [address] [place] [address] Social History Tobacco Use Types [...] 02/15/2019 Lack of Transportation (Non-Medical) No 02/15/2019 [place] Depression Scale Answer Date Recorded [place] Depression Score 2 09/21/2019 Last EPDS Self Harm Result Not on file 09/21 Education Answer Date Recorded What is the highest level of school you have completed or the highest degree you have received? 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 Not on file [...] Out C-difficile 09/10/2022 09/10/2022 023 5:27 PM SEAM HAMMERER C-difficile 09/10/2022 09/10/2022 10/10/2022 11:3 9 PM CDT Assessment Noted Time PHQ-9 Depression Total Score: 3 12/08/19 19 7:05 AM CDT documented as of this encounter Care Teams Research Food Technologist Relationship Specialty Start Date End Date Annalisa Mark APRN PEDIATRIC CARDIOLOGIST PCP - General Nurse Practitioner 03/22/15 06/29/22 Jacob Carmona MD [address] [place] [address] PCP - General 06/30/22 08/28/22 Clinic - [facility] [address] [place], [place] [id number] PCP - General 08/29/22 01/18/23 iLsa Wright PA-C [address] [place] [phone] PCP - General Family Medicine 01/19/23 Mukul Rivas PA-C [address] [place] [address] Assigned PCP 07/03/19 11/19/19 Annalisa Mark APRN PEDIATRIC CARDIOLOGIST Assigned PCP 11/20/19 12/10/19 Mukul Rivas PA-C [address] [place] [address] Assigned PCP 12/11/19 01/21/20 Annalisa Mark APRN PEDIATRIC CARDIOLOGIST Assigned PCP 01/22/20 02/21/22 Jacob Carmona MD [address] [place] [address] Assigned OBGYN Provider 05/18/20 Leonor Burgos MD [place] [address] [place] [address] Assigned PCP 02/22/22 05/16/22 Annalisa Mark APRN PEDIATRIC CARDIOLOGIST Assigned PCP 05/17/22 08/15/22 Leonor Burgos MD [place] [address] [place] [address] Assigned PCP 08/16/22 08/29/22 Annalisa Mark APRN PEDIATRIC CARDIOLOGIST [address] [place] [address] Assigned PCP 08/30/22 11/21/22 Curtis Núñez MD [address] [facility] 276 [place] [address] Assigned Pulmonology Provider 09/13/22 05/17/24 Leonor Burgos MD [place] [address] [facility] 207 [place] [address] Assigned PCP 11/22/22 11/28/22 Annalisa Mark APRN PEDIATRIC CARDIOLOGIST Assigned PCP 11/29/22 01/23/23 Lisa Wright PA-C [address] [facility] [place] [facility] [place] [address] Assigned PCP 01/24/23 04/17/24 Chanel Asher PA-C [address] [facility] 200 [place] [address] Assigned PCP 04/18/24 06/17/24 Lisa Wright PA-C [address] [facility] [place] [address] Assigned PCP 06/18/24 documented as of this encounter
--- OUTSIDE RECORDS SUMMARY | 2024-09-19 03:08 | XMS_ITS | Encounter Summary ---
Author Organization [place] Address [address] [place] [address]. [place] [address] Care Team Providers Care Credit Controller Name Role Phone Jacob Carmona MD Unavailable [phone] Annalisa Mark APRN UROLOGIC SURGEON Unavailable Un available Jacob Carmona MD Primary Care Provider Leonor Burgos MD Unavailable + [facility] Primary Care Provider Annalisa Mark APRN UROLOGIC SURGEON Unavailable Un available Curtis Núñez MD Unavailable [phone] Leonor Burgos MD Unavailable + Annalisa Mark APRN UROLOGIC SURGEON Unavailable Un available Lisa Wright PA-C Primary Care Provider [phone] Lisa Wright PA-C Unavailable [phone] Chanel Asher PA-C Unavailable [phone] Lisa Wright-Serina Unavailable [phone] Encounter Details Date Type Department Care Team (Late st Contact Info) Description 06/30/2022 MyC Medical Advice [facility] [address] [facility] [address] [place] [address] Jacob Carmona MD [address] [place] [address] Social History Tobacco Use Types Packs/Day Years [...] often do you attend [facility] or anabaptist services? Patient declined 10/16/2021 Do you belong to any clubs o r organizations such as mormonism groups, unions, fraternal [...] Answer Date Recorded PHQ-2 Score 0 07/03/2022 [facility] [place] of Occupat ional Health - Occupational Stress [...] or slept in a long-term (including now)? 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 No / Unsure 07/03/2022 10:04 AM ACCOUNT OFFICER documented as of this encounter Plan of Treatment Not on file documented as of this encounter Visit Diagnoses Not on filedocumented in this encounter Additional Health Concerns Infection Onset Date Last Indicated Resolved Time Rule Out C-difficile 09/10/2022 09/10/2022 023 5:27 PM ACCOUNT OFFICER C-difficile 09/10/2022 09/10/2022 10/10/2022 11:3 9 PM CDT Assessment Noted Time PHQ-9 Depression Total Score: 1 04/08/20 22 4:38 PM CDT documented as of this encounter Care Teams Credit Controller Relationship Specialty Start Date End Date Jacob Carmona MD [address] [place] [address] PCP - General 06/30/22 08/28/22 [facility] [address] [place], [place] [phone] PCP - General 08/29/22 01/18/23 Lisa Wright PA-C [address] [place] [phone] PCP - General Family Medicine 01/19/23 Jacob Carmona MD [address] [place] [address] Assigned OBGYN Provider 05/18/20 Annalisa Mark APRN UROLOGIC SURGEON Assigned PCP 05/17/22 08/15/22 Leonor Burgos MD [place] [address] [place] [address] Assigned PCP 08/16/22 08/29/22 Annalisa Mark APRN UROLOGIC SURGEON [address] [place] [address] Assigned PCP 08/30/22 11/21/22 Curtis Núñez MD [address] [place] [address] 276 [place] [address] Assigned Pulmonology Provider 09/13/22 05/17/24 Leonor Burgos MD [facility] [address] [place] [address] [address] [place] [address] Assigned PCP 11/22/22 11/28/22 Annalisa Mark APRN UROLOGIC SURGEON Assigned PCP 11/29/22 01/23/23 Lisa Wright PA-C [address] [place] [phone] Assigned PCP 01/24/23 04/17/24 Chanel Asher PA-C [address] [facility] 200 [place] [address] Assigned PCP 04/18/24 06/17/24 Lisa Wright PA-C [address] [place] [phone] Assigned PCP 06/18/24 documented as of this encounter
--- OUTSIDE RECORDS SUMMARY | 2024-09-19 03:08 | XMS_ITS | Encounter Summary ---
Author Organization [place] Address [address] [place] [address]. [place] [address] Care Team Providers Care Water Quality Technician Name Role Phone Annalisa Mark APRN, CNP Primary Care Provi miguel Unavailable Leonor Burgos MD Unavailable + Deedee, Annalisa Peacock APRN, CNP Unavailable Un available DeedeeAnnalisa dean APRN, CNP Unavailable Un available Mukul Rivas PA-C Unavailable + [phone] DeedeeAnnalisa APRN, CNP Unavailable Un available Mukul Rivas PA-C Unavailable [phone] Deedee, Annalisa Peacock APRN, CNP Unavailable Un available Jacob Carmona MD Unavailable + [phone] Leonor Burgos MD Unavailable + DeedeeAnnalisa dean APRN, CNP Unavailable Un available Jacob Carmona MD Primary Care Provider Leonor Burgos MD Unavailable + [facility] Primary Care Provider DeedeeAnnalisa dean APRN, CNP Unavailable Un available Curtis Núñez MD Unavailable Leonor Burgos MD Unavailable + Deedee Annalisaarnulfo Peacock APRN RACK WORKER Unavailable Un available Lisa Wright Teresa PA-C Primary Care Provider Lisa Wright Teresa PA-C Unavailable [phone] Chanel Asher Nicolle PA-C Unavailable [phone] Lisa Wright PA-C Unavailable [phone] Reason for Visit * Reason Onset Date Comments Results 11/26/2016 Encounter Details Date Type Department Care Team (Late st Contact Info) Description 11/26/2016 MyC Medical Advice [facility] [address] [place] [phone] Pete Martin MD NO INFO AVAILABLE 02/17/23 Results Social History Tobacco Use Types Packs/Day Years Used Date Smoking Tobacco: Never Smokeless Tobacco: Never Alcohol Use Standard Drinks/Week Comments No 0 (1 standard drink = 0.6 oz pur e alcohol) Occaisional Comments No Sex and Gender Information Value Date Recorded Sex Assigned at Female 03/25/2021 2:01 PM CDT Legal Sex Female 3:18 AM MGMT CONSULTANT Gender Identity Female 03/25/2021 2:01 PM CDT Sexual Orientation Straight 03/25/2021 2: 01 PM CDT documented as of this encounter Miscellaneous Notes * Telephone Encounter - Ani Lynne RN - 12/05/2016 9:31 AM CDT MyChart message sent. Call to lab. They will [...] results. Viral culture still in process. See mychart message. Casie Santos R.N. documented in this [...] Out C-difficile 09/10/2022 09/10/2022 023 5:27 PM MGMT CONSULTANT C-difficile 09/10/2022 09/10/2022 10/10/2022 11:3 9 PM CDT Assessment Noted Time PHQ-9 Depression Total Score: 5 04/22/20 16 7:19 AM CDT documented as of this encounter Care Teams Water Quality Technician Relationship Specialty Start Date End Date Annalisa Mark APRN RACK WORKER PCP - General Nurse Practitioner 03/22/15 06/29/22 Leonor Burgos MD [place] [address] [address] PCP - Assigned PCP 12/13/17 06/05/18 Annalisa Mark APRN RACK WORKER PCP - Assigned PCP 06/06/18 09/28/18 Jacob Carmona MD [address] [place] [address] PCP - General 06/30/22 08/28/22 [facility] [address] [place], [place] [phone] PCP - General 08/29/22 01/18/23 Lisa Wright PA-C [address] [place] [address] PCP - General Family Medicine 01/19/23 Annalisa Mark APRN RACK WORKER Assigned PCP 06/06/18 07/02/19 Mukul Rivas PA-C [address] [place] [address] Assigned PCP 07/03/19 11/19/19 Annalisa Mark APRN RACK WORKER Assigned PCP 11/20/19 12/10/19 Mukul Rivas PA-C [address] [place] [address] Assigned PCP 12/11/19 01/21/20 Annalisa Mark APRN RACK WORKER Assigned PCP 01/22/20 02/21/22 Jacob Carmona MD [address] [place] [address] Assigned OBGYN Provider 05/18/20 Leonor Burgos MD [place] [address] [facility] [place] [address] Assigned PCP 02/22/22 05/16/22 Annalisa Mark APRN RACK WORKER Assigned PCP 05/17/22 08/15/22 Leonor Burgos MD [place] [address] [place] [address] Assigned PCP 08/16/22 08/29/22 Annalisa Mark APRN RACK WORKER [address] [place] [address] Assigned PCP 08/30/22 11/21/22 Curtis Núñez MD [address] [facility] 276 [place] [address] Assigned Pulmonology Provider 09/13/22 05/17/24 Leonor Burgos MD [place] [address] [place] [address] Assigned PCP 11/22/22 11/28/22 Annalisa Mark APRN RACK WORKER Assigned PCP 11/29/22 01/23/23 Lisa Wright PA-C [address] [place] [address] Assigned PCP 01/24/23 04/17/24 Chanel Asher PA-C [address] [facility] 200 [place] [address] Assigned PCP 04/18/24 06/17/24 Lisa Wright PA-C [address] [place] [address] Assigned PCP 06/18/24 documented as of this encounter
--- OUTSIDE RECORDS SUMMARY | 2024-09-19 03:08 | XMS_ITS | Encounter Summary ---
Author Organization [place] Address [address] [place] [address]. [place] [address] Care Team Providers Care Consumer Loan Manager Name Role Phone Jacob Carmona MD Unavailable [phone] Annalisa Mark APRN PROJECT ARCHITECT Unavailable Un available Jacob Carmona MD Primary Care Provider Leonor Burgos MD Unavailable + [facility] Primary Care Provider Annalisa Mark APRN PROJECT ARCHITECT Unavailable Un available Curtis Núeñz MD Unavailable [phone] Leonor Burgos MD Unavailable + Annalisa Mark APRN PROJECT ARCHITECT Unavailable Un available Lisa Wright PA-C Primary Care Provider [phone] Lisa Wright PA-C Unavailable [phone] Chanel Asher PA-C Unavailable [phone] Lisa Wright-Serina Unavailable [phone] Encounter Details Date Type Department Care Team (Late st Contact Info) Description 07/06/2022 MyC Medical Advice [facility] [address] [facility] [address] [place] [address] Jacob Carmona MD [address] [place] [address] Social History Tobacco Use Types Packs/Day Years [...] 10/16/2021 How often do you attend [facility] or zoroastrian services? Patient declined 10/16/2021 Do you belong to any clubs o r organizations such as latter day groups, unions, [...] Answer Date Recorded PHQ-2 Score 0 07/03/2022 [facility] [place] of Occupat ional Health - Occupational Stress [...] in a retirement (including now)? No 10/16/2021 [place] Depression Scale Answer Date Recorded [place] Depression Score 2 09/21/2019 Last EPDS Self Harm Result Not on file 09/21 Education Answer Date Recorded What is the highest level of school you have completed or the highest degree you have received? 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 No / Unsure 07/03/2022 10:04 AM AUTOMOBILE ACCESSORIES SALESPERSON documented as of this encounter Plan of Treatment Not on file documented as of this encounter Visit Diagnoses Not on filedocumented in this encounter Additional Health Concerns Infection Onset Date Last Indicated Resolved Time Rule Out C-difficile 09/10/2022 09/10/2022 023 5:27 PM AUTOMOBILE ACCESSORIES SALESPERSON C-difficile 09/10/2022 09/10/2022 10/10/2022 11:3 9 PM CDT Assessment Noted Time PHQ-9 Depression Total Score: 1 04/08/20 22 4:38 PM CDT documented as of this encounter Care Teams Consumer Loan Manager Relationship Specialty Start Date End Date Jacob Carmona MD [address] [place] [address] PCP - General 06/30/22 08/28/22 [facility] [address] [place], [place] [phone] PCP - General 08/29/22 01/18/23 Lisa Wright PA-C [address] [place] [phone] PCP - General Family Medicine 01/19/23 Jacob Carmona MD [address] [place] [address] Assigned OBGYN Provider 05/18/20 Annalisa Mrak APRN PROJECT ARCHITECT Assigned PCP 05/17/22 08/15/22 Leonor Burgos MD [place] [address] [place] [address] Assigned PCP 08/16/22 08/29/22 Annalisa Mark APRN PROJECT ARCHITECT [address] [place] [address] Assigned PCP 08/30/22 11/21/22 Curtis Núñez MD [address] [place] [address] 276 [place] [address] Assigned Pulmonology Provider 09/13/22 05/17/24 Leonor Burgos MD [facility] [address] [place] [address] [address] [place] [address] Assigned PCP 11/22/22 11/28/22 Annalisa Mark APRN PROJECT ARCHITECT Assigned PCP 11/29/22 01/23/23 Lisa Wright PA-C [address] [facility] [address] Assigned PCP 01/24/23 04/17/24 Chanel Asher PA-C [address] [facility] 200 [place] [address] Assigned PCP 04/18/24 06/17/24 Lisa Wright PA-C [address] [facility] [phone] Assigned PCP 06/18/24 documented as of this encounter
--- OUTSIDE RECORDS SUMMARY | 2024-09-19 03:08 | XMS_ITS | Encounter Summary ---
Author Organization [place] Address [address] [place] [address]. [place] [address] Care Team Providers Care Perforator Operator Name Role Phone Jacob Carmona MD Unavailable [phone] Annalisa Mark APRN [employer] PRINCIPAL Unavailable Un available Jacob Carmona MD Primary Care Provider Leonor Burgos MD Unavailable + [facility] Primary Care Provider Annalisa Mark APRN [employer] PRINCIPAL Unavailable Un available Curtis Núñez MD Unavailable [phone] Leonor Burgos MD Unavailable + Annalisa Mark APRN [employer] SCHOOL PRINCIPAL Unavailable Un available Lisa Wright PA-C Primary Care Provider [phone] Lisa Wright PA-C Unavailable [phone] Chanel Asher PA-C Unavailable [phone] Lisa Wright-Serina Unavailable [phone] Encounter Details Date Type Department Care Team (Late st Contact Info) Description 06/30/2022 MyC Medical Advice [facility] [address] [facility] [address] [place] [address] Jacob Carmona MD [address] [place] [address] Social History Tobacco Use Types Packs/Day Years [...] week 10/16/2021 How often do you attend [facility] or shinto services? Patient declined 10/16/2021 Do you belong to any clubs o r organizations such as congregation groups, unions, fraternal [...] Answer Date Recorded PHQ-2 Score 0 07/03/2022 [facility] [place] of Occupat ional Health - Occupational Stress [...] a [place] [facility] [place] facility (including now)? 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 No / Unsure 07/03/2022 10:04 AM PHOTOENGRAVING PROOFER APPRENTICE documented as of this encounter Plan of Treatment Not on file documented as of this encounter Visit Diagnoses Not on filedocumented in this encounter Additional Health Concerns Infection Onset Date Last Indicated Resolved Time Rule Out C-difficile 09/10/2022 09/10/2022 023 5:27 PM PHOTOENGRAVING PROOFER APPRENTICE C-difficile 09/10/2022 09/10/2022 10/10/2022 11:3 9 PM CDT Assessment Noted Time PHQ-9 Depression Total Score: 1 04/08/20 22 4:38 PM CDT documented as of this encounter Care Teams Perforator Operator Relationship Specialty Start Date End Date Jacob Carmona MD [address] [place] [address] PCP - General 06/30/22 08/28/22 [facility] [address] [place], [place] [phone] PCP - General 08/29/22 01/18/23 Lisa Wright PA-C [address] [place] [phone] PCP - General Family Medicine 01/19/23 Jacob Carmona MD [address] [place] [address] Assigned OBGYN Provider 05/18/20 Annalisa Mark APRN [employer] PRINCIPAL Assigned PCP 05/17/22 08/15/22 Leonor Burgos MD [place] [address] [place] [address] Assigned PCP 08/16/22 08/29/22 Annalisa Mark APRN [employer] PRINCIPAL [address] [place] [address] Assigned PCP 08/30/22 11/21/22 Curtis Núñez MD [address] [place] [address] 276 [place] [address] Assigned Pulmonology Provider 09/13/22 05/17/24 Leonor Burgos MD [facility] [address] [place] [address] [address] [place] [address] Assigned PCP 11/22/22 11/28/22 Annalisa Mark APRN K [employer] SCHO[employer] PRINCIPAL Assigned PCP 11/29/22 01/23/23 Lisa Wright PA-C [address] [place] [phone] Assigned PCP 01/24/23 04/17/24 Chanel Asher PA-C [address] [facility] 200 [place] [address] Assigned PCP 04/18/24 06/17/24 Lisa Wright PA-C [address] [place] [phone] Assigned PCP 06/18/24 documented as of this encounter
--- OUTSIDE RECORDS SUMMARY | 2024-09-19 03:08 | XMS_ITS | Encounter Summary ---
Author Organization [facility] Address [address] [place] [address]. [place] [address] Care Team Providers Care Metal Lather Name Role Phone Annalisa Mark APRN, CNP Primary Care Provi miguel Unavailable Leonor Burgos MD Unavailable + Deedee, Annalisa Peacock APRN, CNP Unavailable Un available DeedeeAnnalisa dean APRN, CNP Unavailable Un available Mukul Rivas PA-C Unavailable + [phone] DeedeeAnnalisa APRN, CNP Unavailable Un available Mukul Rivas PA-C Unavailable [phone] Deedee, Annalisa Peacock APRN, CNP Unavailable Un available Jacob Carmona MD Unavailable + [phone] Leonor Burgos MD Unavailable + DeedeeAnnalisa dean APRN, CNP Unavailable Un available Jacob Carmona MD Primary Care Provider Leonor Burgos MD Unavailable + [facility] Primary Care Provider DeedeeAnnalisa dean APRN, CNP Unavailable Un available Curtis Núñez MD Unavailable Leonor Burgos MD Unavailable + Annalisa Mark APRN REFRIGERATION REPAIR SUPERVISOR Unavailable Un available Kyle Lisa M PA-C Primary Care Provider Lisa WrightC Unavailable [phone] Chanel Asher Nicolle KENNEDYC Unavailable [phone] Norm Wrightkendall KENNEDYC Unavailable [phone] Encounter Details Date Type Department Care Team (Late st Contact Info) Description 11/27/2016 [facility] [address] [place] [phone] Pete Martin MD NO INFO AVAILABLE 02/17/23 Social History Tobacco Use Types Packs/Day Years Used Date Smoking Tobacco: Never Smokeless Tobacco: Never Alcohol Use Standard Drinks/Week Comments No 0 (1 standard drink = 0.6 oz pur e alcohol) Occaisional Comments No Sex and Gender Information Value Date Recorded Sex Assigned at Female 03/25/2021 2:01 PM CDT Legal Sex Female 3:18 AM AUTOMOTIVE LEASING SALES REPRESENTATIVE Gender Identity Female 03/25/2021 2:01 PM CDT [...] Last Indicated Resolved Time Rule Out COVID-19 01/14/202101/1401/14/2021 01/15/2021 3:32 PM CDT Rule Out C-difficile 02/26/2022 02/26/2022 022 1:52 PM CDT C-difficile 02/26/2022 02/26/2022 03/28/2022 11:4 1 PM CDT Rule Out C-difficile 09/10/2022 09/10/2022 023 5:27 PM AUTOMOTIVE LEASING SALES REPRESENTATIVE C-difficile 09/10/2022 09/10/2022 10/10/2022 11:3 9 PM CDT Assessment Noted Time PHQ-9 Depression Total Score: 5 04/22/20 16 7:19 AM CDT documented as of this encounter Care Teams Metal Lather Relationship Specialty Start Date End Date Annalisa Mark APRN REFRIGERATION REPAIR SUPERVISOR PCP - General Nurse Practitioner 03/22/15 06/29/22 Leonor Burgos MD [place] [address] [address] PCP - Assigned PCP 12/13/17 06/05/18 Annalisa Mark APRN REFRIGERATION REPAIR SUPERVISOR PCP - Assigned PCP 06/06/18 09/28/18 Jacob Carmona MD [address] [place] [address] PCP - General 06/30/22 08/28/22 [facility] [address] [place] [address] PCP - General 08/29/22 01/18/23 Lisa Wright PA-C [address] [place] [phone] PCP - General Family Medicine 01/19/23 Annalisa Mark APRN REFRIGERATION REPAIR SUPERVISOR Assigned PCP 06/06/18 07/02/19 Mukul Rivas PA-C [address] [place] [address], [place] [address] Assigned PCP 07/03/19 11/19/19 Annalisa Mark APRN REFRIGERATION REPAIR SUPERVISOR Assigned PCP 11/20/19 12/10/19 Mukul Rivas PA-C [address] [place] [address], [place] [id number] Assigned PCP 12/11/19 01/21/20 Annalisa Mark APRN REFRIGERATION REPAIR SUPERVISOR Assigned PCP 01/22/20 02/21/22 Jacob Carmona MD [address] [place] [address] Assigned OBGYN Provider 05/18/20 Leonor Burgos MD [place] [address] [employer] [address] [place] [address] Assigned PCP 02/22/22 05/16/22 Annalisa Mark APRN REFRIGERATION REPAIR SUPERVISOR Assigned PCP 05/17/22 08/15/22 Leonor Burgos MD [place] [address] [employer] [address] [place] [address] Assigned PCP 08/16/22 08/29/22 Annalisa Mark APRN REFRIGERATION REPAIR SUPERVISOR [address] [place] [address] Assigned PCP 08/30/22 11/21/22 Curtis Núñez MD [address] [place] [address] [address] [place] [address] Assigned Pulmonology Provider 09/13/22 05/17/24 Leonor Burgos MD [place] [address] [facility] 207 [place], [place] [address] Assigned PCP 11/22/22 11/28/22 Annalisa Mark APRN REFRIGERATION REPAIR SUPERVISOR Assigned PCP 11/29/22 01/23/23 Lisa Wright PA-C [address] [place] [phone] Assigned PCP 01/24/23 04/17/24 Chanel Asher PA-C [address] [facility] 200 [place], [place] [address] Assigned PCP 04/18/24 06/17/24 Lisa Wright PA-C [address] [place] [phone] Assigned PCP 06/18/24 documented as of this encounter
--- OUTSIDE RECORDS SUMMARY | 2024-09-19 03:08 | XMS_ITS | Encounter Summary ---
Author Organization [facility] [place] Address [address] [place] [address]. [place] [address] Care Team Providers Care Energy Conservation Director Name Role Phone Annalisa Mark APRN, CNP Primary Care Provi miguel Unavailable Deedee, Annalisa Peacock APRN, CNP Unavailable Un available Mukul Rivas PA-C Unavailable + [phone] Deedee, Annalisa Peacock APRN, CNP Unavailable Un available Mukul Rivas PA-C Unavailable [phone] Deedee, Annalisa Peacock APRN, CNP Unavailable Un available Jacob Carmona MD Unavailable + [phone] Leonor Burgos MD Unavailable + DeedeeAnnalisa dean APRN, CNP Unavailable Un available Jacob Carmona MD Primary Care Provider Leonor Burgos MD Unavailable + [facility] Primary Care Provider Annalisa Mark APRN, CNP Unavailable Un available Curtis Núñez MD Unavailable [phone] Leonor Burgos MD Unavailable + Annalisa Mark CONTACT FINGER ASSEMBLER HISTORIAN RESEARCH ASSISTANT Unavailable Un available Lisa Wright PA-C Primary Care Provider [phone] Lisa Wright PA-C Unavailable [phone] Chanel Asher BRENTC Unavailable Norm Wrigthkendall Moore PA-C Unavailable [phone] Encounter Details Date Type Department Care Team (Late st Contact Info) Description 04/11/2019 MyC Medical Advice [facility] [address] [facility] [address] [place] [address] Jacob Carmona MD [address] [place] [address] Social History Tobacco Use Types [...] PM CDT Legal Sex Female 3:18 AM CITRUS FRUIT COLORER Gender Identity Female 03/25/2021 2:01 PM CDT Sexual Orientation Straight 03/25/2021 2: 01 PM CDT 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 Not on file [...] Out C-difficile 09/10/2022 09/10/2022 023 5:27 PM CITRUS FRUIT COLORER C-difficile 09/10/2022 09/10/2022 10/10/2022 11:3 9 PM CDT Assessment Noted Time PHQ-9 Depression Total Score: 3 12/08/19 19 7:05 AM CDT documented as of this encounter Care Teams Energy Conservation Director Relationship Specialty Start Date End Date Annalisa Mark APRN HISTORIAN RESEARCH ASSISTANT PCP - General Nurse Practitioner 03/22/15 06/29/22 Jacob Carmona MD [address] [place] [address] PCP - General 06/30/22 08/28/22 [facility] [address] [place] [address] PCP - General 08/29/22 01/18/23 Lisa Wright PA-C [address] [place] [phone] PCP - General Family Medicine 01/19/23 Annalisa Mark APRN HISTORIAN RESEARCH ASSISTANT Assigned PCP 06/06/18 07/02/19 Mukul Rivas PA-C [address] [place] [address] [place] [phone] Assigned PCP 07/03/19 11/19/19 Annalisa Mark APRN HISTORIAN RESEARCH ASSISTANT Assigned PCP 11/20/19 12/10/19 Mukul Rivas PA-C [address] [place] [id number] Assigned PCP 12/11/19 01/21/20 Annalisa Mark APRN HISTORIAN RESEARCH ASSISTANT Assigned PCP 01/22/20 02/21/22 Jacob Carmona MD [address] [place] [address] Assigned OBGYN Provider 05/18/20 Leonor Burgos MD [place] [address] [employer] [address] [place] [address] Assigned PCP 02/22/22 05/16/22 Annalisa Mark APRN HISTORIAN RESEARCH ASSISTANT Assigned PCP 05/17/22 08/15/22 Leonor Burgos MD [place] [address] [employer] [address] [place] [address] Assigned PCP 08/16/22 08/29/22 Annalisa Mark APRN HISTORIAN RESEARCH ASSISTANT [address] [place] [address] Assigned PCP 08/30/22 11/21/22 Curtis Núñez MD [address] [facility] 276 [place] [address] Assigned Pulmonology Provider 09/13/22 05/17/24 Leonor Burgos MD [place] [address]447 [facility] [address] [place] [address] Assigned PCP 11/22/22 11/28/22 Annalisa Mark APRN HISTORIAN RESEARCH ASSISTANT Assigned PCP 11/29/22 01/23/23 Lisa Wright PA-C [address] [place] [phone] Assigned PCP 01/24/23 04/17/24 Chanel Asher PA-C [address] [facility] [address] [place] [address] Assigned PCP 04/18/24 06/17/24 Lisa Wright PA-C [address] [place] [phone] Assigned PCP 06/18/24 documented as of this encounter
--- OUTSIDE RECORDS SUMMARY | 2024-09-19 03:08 | XMS_ITS | Encounter Summary ---
Author Organization [facility] Address [address] [place] [address]. [place] [address] Care Team Providers Care Web Design Instructor Name Role Phone Jacob Carmona MD Unavailable [phone] Annalisa Mark APRN LIVESTOCK HAULIER Unavailable Un available Jacob Carmona MD Primary Care Provider Leonor Burgos MD Unavailable + [facility] Primary Care Provider Annalisa Mark APRN LIVESTOCK HAULIER Unavailable Un available Curtis Núñez MD Unavailable [phone] Leonor Burgos MD Unavailable + Annalisa Mark APRN LIVESTOCK HAULIER Unavailable Un available Lisa Wright PA-C Primary Care Provider [phone] Lisa Wright PA-C Unavailable [phone] Chanel Asher PA-C Unavailable [phone] Lisa Wright-Serina Unavailable [phone] Encounter Details Date Type Department Care Team (Late st Contact Info) Description 07/15/2022 MyC Medical Advice [facility] Deborah [address] [facility] [address] [place] [address] Jacob Carmona MD [address] [place] [address] Social History Tobacco Use Types Packs/Day Years [...] you attend [employer] or spiritism services? Patient declined 10/16/2021 Do you belong [...] Answer Date Recorded PHQ-2 Score 0 07/03/2022 [facility] of Occupat ional Health - Occupational Stress [...] in a penitentiary (including now)? No 10/16/2021 Lawrence Depression Scale Answer Date Recorded Lawrence Depression Score 2 09/21/2019 Last EPDS Self Harm Result Not on file 09/21 Education Answer Date Recorded What is the highest level of school you have completed or the highest degree you have received? 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 No / Unsure 07/03/2022 10:04 AM CITY CARRIER ASSISTANT documented as of this encounter Miscellaneous Notes * Telephone Encounter - Pamella Chapman RN - 07/15/2022 1:39 PM CST Please address the my chart message. Pt had surgery on 07/08/22. Geronimo Chapman RN CARRIER ASSISTANT documented in this encounter Plan of Treatment Not on file documented as of this encounter Visit Diagnoses Not on filedocumented in this encounter Additional Health Concerns Infection Onset Date Last Indicated Resolved Time Rule Out C-difficile 09/10/2022 09/10/2022 023 5:27 PM CITY CARRIER ASSISTANT C-difficile 09/10/2022 09/10/2022 10/10/2022 11:3 9 PM CDT Assessment Noted Time PHQ-9 Depression Total Score: 1 04/08/20 4:38 PM CDT documented as of this encounter Care Teams Web Design Instructor Relationship Specialty Start Date End Date Jacob Carmona MD [address] [place] [address] PCP - General 06/30/22 08/28/22 [facility] [address] [place], [place] [phone] PCP - General 08/29/22 01/18/23 Lisa Wright PA-C [address] [place] [phone] PCP - General Family Medicine 01/19/23 Jacob Carmona MD [address] [place] [address] Assigned OBGYN Provider 05/18/20 Annalisa Mark APRN LIVESTOCK HAULIER Assigned PCP 05/17/22 08/15/22 Leonor Burgos MD [place] [address] [place] [address] Assigned PCP 08/16/22 08/29/22 Annalisa Mark APRN LIVESTOCK HAULIER [address] [place] [address] Assigned PCP 08/30/22 11/21/22 Curtis Núñez MD [address] [facility] 276 [place] [address] Assigned Pulmonology Provider 09/13/22 05/17/24 Leonor Burgos MD [place] [address] [employer] [address] [place] [address] Assigned PCP 11/22/22 11/28/22 Annalisa Mark APRN LIVESTOCK HAULIER Assigned PCP 11/29/22 01/23/23 Lisa Wright PA-C [address] [place] [address] Assigned PCP 01/24/23 04/17/24 Chanel Asher PA-C [address] [place] [address] Assigned PCP 04/18/24 06/17/24 Lisa Wright PA-C [address] [place] [address] Assigned PCP 06/18/24 documented as of this encounter
--- OUTSIDE RECORDS SUMMARY | 2024-09-19 03:09 | XMS_ITS | Encounter Summary ---
Author Organization [facility] Address [address] [place] [address]. [place] [address] Care Team Providers Care Emergency Technician Name Role Phone Annalisa Mark APRN, CNP Primary Care Provi miguel Unavailable Deedee, Annalisa Peacock APRN, CNP Unavailable Un available Mukul Rivas PA-C Unavailable + [phone] Deedee, Annalisa Peacock APRN, CNP Unavailable Un available Mukul Rivas PA-C Unavailable [phone] Deedee, Annalisa Peacock APRN, CNP Unavailable Un available Mike Martínez MD Unavailable + [phone] Leonor Burgos MD Unavailable + DeedeeAnnalisa dean APRN, CNP Unavailable Un available Mike Martínez MD Primary Care Provider Leonor Burgos MD Unavailable + [facility] Primary Care Provider Annalisa Mark APRN, CNP Unavailable Un available Curtis Núñez MD Unavailable [phone] Leonor Burgos MD Unavailable + Annalisa Mark WICK TENDER POLE INSPECTOR Unavailable Un available Lisa Wright PA-C Primary Care Provider [phone] Lisa WrightC Unavailable [phone] Chanel Asher PA-C Unavailable [phone] Angelica Wrighttana Moore PA-C Unavailable [phone] Reason for Referral * Diagnostic Imaging Ultrasound (Routine) - Closed Specialty Diagnoses / Procedures Referred By Contac t Referred To Contact Diagnoses related condition, antepartum Procedures [facility] Mike Martínez MD [address] [place] [address] Phone: tel: fax: Referral ID Status Reason Start Date Expiration Date Visits Re quested Visits Authorized [id number] Closed 02/24/2019 02/24/2020 1 1 * Diagnostic Imaging Ultrasound (Routine) - Closed Specialty Diagnoses / Procedures Referred By Contac t Referred To Contact Diagnoses related condition, antepartum Procedures Maternal Nuchal Translucency Mike Martínez MD [address] [place] [address] Phone: tel: fax: Referral ID Status Reason Start Date Expiration Date Visits Re quested Visits Authorized [id number] Closed 02/24/2019 02/24/2020 1 1 * (Routine) - Closed Specialty Diagnoses / Procedures Referred By Contac t Referred To Contact Diagnoses related condition, antepartum Mike Martínez MD [address] [place] [address] Phone: tel: fax: Referral ID Status Reason Start Date Expiration Date Visits Re quested Visits Authorized [id number] Closed 02/24/2019 02/24/2020 1 1 Comments AMA, Sibling Hx of Cystic Fibrosis Encounter Details Date Type Department Care Team (Late st Contact Info) Description 02/24/2019 Transcribe Orders [facility] [place] [address] [facility] [address] [place] [phone] Mike Martínez MD [address] [place] [address] related condition, antepartum (Primary Dx) Social History [...] PM CDT Legal Sex Female 3:18 AM VISITOR SERVICES TECHNICIAN Gender Identity Female 03/25/2021 2:01 PM CDT Sexual Orientation Straight 03/25/2021 2: 01 PM CDT 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 NO: [id number] Referring MD: MIKE MARTÍNEZ Site: [facility] Tunnel Form Placing Supervisor: Lorrie Pennington RDMS : 1985 Age: 34 ----- INDICATION ----- Advanced Maternal Age, low risk NIPT METHOD ----- Transabdominal ultrasound examination. View: Sufficient ----- [place] . Number of fetuses: 1 DATING ----- Date Details Gest. age JUDD LMP 12/10/2018 20 w + 0 d 09/16/2019 Prior assessment 02/14/2019 GA: 8 w + 6 d 19 w + 3 d 09/20/2019 U/S 04/29/2019 based upon AC, BPD, Femur, HC 19 w + 6 d 09/17/2019 Assigned dating Dating performed on 04/29/2019, based on the LMP 20 w + 0 d 09/16/2019 GENERAL EVALUATION ----- Cardiac activity present. FHR 144 bpm. movements present. Presentation cephalic. Placenta posterior, placenta previa . Umbilical cord 3 vessel cord. Amniotic fluid MVP 4.0 cm. BIOMETRY ----- Main Biometry: BPD 46.4 mm 20w 0d Hadlock OFD 59.3 mm 19w 2d Nicolaides HC 167.6 mm 19w 3d Hadlock Cerebellum tr 20.5 mm 19w 4d Nicolaides AC 147.4 mm 20w 0d Hadlock Femur 31.4 mm 19w 5d Hadlock Humerus 29.7 mm 19w 5d Bisi Weight Calculation: EFW 317 g EFW (lb,oz) 0 lb 11 oz EFW by Hadlock ([id number]) Head / Face / Neck Biometry: Equipment Detailer 5.0 mm CM 3.6 mm Nasal bone 5.9 mm Nuchal fold 3.3 mm ANATOMY ----- The following structures appear normal: Head / Neck Cranium. Head size. Head shape. Lateral ventricles. Choroid plexus. Midline falx. Cavum septi pellucidi. Cerebellum. Cisterna magna. Parenchyma. Thalami. Vermis. Neck. Nuchal fold. Face Lips. Profile. Nose. Maxilla. Mandible. Orbits. Lens. Heart / Thorax 4-chamber view. RVOT view. LVOT view. Situs. Aortic arch view. Bicaval view. Ductal arch view. Superior vena cava. Inferior vena cava. 3-vessel view. 8-kqsubs-ejgzuqy view. Cardiac position. Cardiac size. Cardiac rhythm. Right lung. Left lung. Diaphragm. Abdomen Abdominal wall. Cord insertion. Stomach. Kidneys. Bladder. Liver. Bowel. Genitals. Spine Cervical spine. Thoracic spine. Lumbar spine. Sacral spine. Extremities / Skeleton Right [...] Pat. Name:Rolf DALEY Date:04/29/2019 1:25pm Pat. NO: [id number] MD:MIKE MARTÍNEZ [facility]or[facility] Pennington RDMS :1985Age:34 ----- INDICATION ----- Advanced [...] 0 lb 11 oz EFW by Hadlock ([id number]) Head / Face / Neck Biometry: Equipment Detailer 5.0 mm CM 3.6 mm Nasal bone [...] Superior venacava. Inferior vena cava. 3-vessel view. 9-wztpqy-qrfieww view.Cardiac position. Cardiac size. Cardiac rhythm. Right [...] evident. No markers for aneuploidyseen. Placenta previa. us Mike Martínez MD [facility] US ORDERABLES Edited Result - Final * Maternal Nuchal Translucency (03/11/2019 12:13 PM [...] CDT 1st Trim ----- Pat. Name: MARCELINO DAELY Study Date: 03/11/2019 11:47am Pat. NO: [id number] Referring MD: MIKE MARTÍNEZ Site: [facility] Tunnel Form Placing Supervisor: Chiqui Helton RDMS : 1985 Age: 33 ----- INDICATION ----- Advanced Maternal Age METHOD ----- Transabdominal ultrasound examination. View: Sufficient ----- [place] . Number of fetuses: 1 DATING ----- Date Details Gest. age JUDD LMP 12/10/2018 13 w + 0 d 09/16/2019 Prior assessment 02/14/2019 GA: 8 w + 6 d 12 w + 3 d 09/20/2019 U/S 03/11/2019 based upon CRL 13 w + 0 d 09/16/2019 Assigned dating Dating performed on 03/11/2019, based on the LMP 13 w + 0 d 09/16/2019 GENERAL EVALUATION ----- Cardiac activity present. Placenta posterior. Cord vessels 3 vessel cord. Amniotic fluid normal amount. BIOMETRY ----- FHR 155 bpm CRL 67.2 mm 13w 0d Hadlock ANATOMY ----- The following structures [...] be present but not detected Procedure Note Cross, Joya Valdes MD - 03/11/2019 1st Trim ----- Pat. Name:Rolf DALEY Date:03/11/2019 11:47am Pat. NO: [id number] MD:MIKE MARTÍNEZ [facility]Chiqui Helton RDMS :1985Age:33 ----- INDICATION ----- Advanced [...] for early gestational age. Mike Martínez MD [facility] ORDERABLES Edited Result - Final documented in this encounter Visit Diagnoses Diagnosis [...] Out C-difficile 09/10/2022 09/10/2022 023 5:27 PM VISITOR SERVICES TECHNICIAN C-difficile 09/10/2022 09/10/2022 10/10/2022 11:3 9 PM CDT Assessment Noted Time PHQ-9 Depression Total Score: 3 12/08/19 19 7:05 AM CDT documented as of this encounter Care Teams Emergency Technician Relationship Specialty Start Date End Date Annalisa Mark APRN POLE INSPECTOR PCP - General Nurse Practitioner 03/22/15 06/29/22 Mike Martínez MD [address] [place] [address] PCP - General 06/30/22 08/28/22 [facility] [address] [place] [address] PCP - General 08/29/22 01/18/23 Lisa Wrgiht PA-C [address] [place] [address] PCP - General Family Medicine 01/19/23 Annalisa Mark APRN POLE INSPECTOR Assigned PCP 06/06/18 07/02/19 Mukul Rivas PA-C [address] [place] [address] Assigned PCP 07/03/19 11/19/19 Annalisa Mark APRN POLE INSPECTOR Assigned PCP 11/20/19 12/10/19 Mukul Rivas PA-C [address] [place] [id number] Assigned PCP 12/11/19 01/21/20 Annalisa Mark APRN POLE INSPECTOR Assigned PCP 01/22/20 02/21/22 Mike Martínez MD [address] [place] [address] Assigned OBGYN Provider 05/18/20 Leonor Burgos MD [facility] [address] [place] [address] [place] [address] Assigned PCP 02/22/22 05/16/22 Annalisa Mark APRN POLE INSPECTOR Assigned PCP 05/17/22 08/15/22 Leonor Burgos MD [place] [address] [facility] [address] [place], [place] [address] Assigned PCP 08/16/22 08/29/22 Annalisa Mark APRN POLE INSPECTOR [address] [place] [address] Assigned PCP 08/30/22 11/21/22 Curtis Núñez MD [address] [place] [address] 276 [place] [address] Assigned Pulmonology Provider 09/13/22 05/17/24 Leonor Burgos MD [place] [address] [facility] [address] [place], [place] [address] Assigned PCP 11/22/22 11/28/22 Annalias Mark APRN POLE INSPECTOR Assigned PCP 11/29/22 01/23/23 Lisa Wright PA-C [address] [place] [address] Assigned PCP 01/24/23 04/17/24 Chanel Asher PA-C [address] [facility] [address] [place] [address] Assigned PCP 04/18/24 06/17/24 Lisa Wright PA-C [address] [place] [address] Assigned PCP 06/18/24 documented as of this encounter
--- OUTSIDE RECORDS SUMMARY | 2024-09-19 03:09 | XMS_ITS | Encounter Summary ---
Author Organization [place] Address [address] [place] [address]. [place] [address] Care Team Providers Care Night Baker Name Role Phone Annalisa Mark APRN, CNP Primary Care Provi miguel Unavailable Deedee, Annalisa Peacock APRN, CNP Unavailable Un available Mukul Rivas PA-C Unavailable + [phone] Deedee, Annalisa Peacock APRN, CNP Unavailable Un available Mukul Rivas PA-C Unavailable [phone] Deedee, Annalisa Peacock APRN, CNP Unavailable Un available Jacob Carmona MD Unavailable + [phone] Leonor Burgos MD Unavailable + DeedeeAnnalisa dean APRN, CNP Unavailable Un available Jacob Carmona MD Primary Care Provider Leonor Burgos MD Unavailable + [facility] Primary Care Provider Annalisa Mark APRN, CNP Unavailable Un available Curtis Núñez MD Unavailable +[phone] Leonor Burgos MD Unavailable + Annalisa Mark BALANCE WHEEL FACER FISH SEINER Unavailable Un available Lisa WrightC Primary Care Provider [phone] Lisa Wright PA-C Unavailable [phone] Chanel Asher BRENTC Unavailable KyleNormLisakendall Moore PA-C Unavailable Reason for Visit * Reason Onset Date Comments Results 03/18/2019 Encounter Details Date Type Department Care Team (Late st Contact Info) Description 03/18/2019 MyC Medical Advice [facility] [address] [facility] [address] [place] [address] Jacob Carmona MD [address] [place] [address] Results Social History Tobacco Use [...] PM CDT Legal Sex Female 3:18 AM CASH CHECKER Gender Identity Female 03/25/2021 2:01 PM CDT Sexual Orientation Straight 03/25/2021 2: 01 PM CDT 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 Not on file [...] Out C-difficile 09/10/2022 09/10/2022 023 5:27 PM CASH CHECKER C-difficile 09/10/2022 09/10/2022 10/10/2022 11:3 9 PM CDT Assessment Noted Time PHQ-9 Depression Total Score: 3 12/08/19 19 7:05 AM CDT documented as of this encounter Care Teams Night Baker Relationship Specialty Start Date End Date Annalisa Mark APRN FISH SEINER PCP - General Nurse Practitioner 03/22/15 06/29/22 Jacob Carmona MD [address] [place] [address] PCP - General 06/30/22 08/28/22 Clinic - [facility] [address] [place], [place] [phone] PCP - General 08/29/22 01/18/23 Lisa Wright PA-C [address] [place] [phone] PCP - General Family Medicine 01/19/23 Annalisa Mark APRN FISH SEINER Assigned PCP 06/06/18 07/02/19 Mkuul Rivas PA-C [address], [place] [id number] Assigned PCP 07/03/19 11/19/19 Annalisa Mark APRN FISH SEINER Assigned PCP 11/20/19 12/10/19 Mukul Rivas PA-C [address] [place] [address] Assigned PCP 12/11/19 01/21/20 Annalisa Mark APRN FISH SEINER Assigned PCP 01/22/20 02/21/22 Jacob Carmona MD [address] [place] [address] Assigned OBGYN Provider 05/18/20 Leonor Burgos MD ARISE [address] [employer] [address] [place] [address] Assigned PCP 02/22/22 05/16/22 Annalisa Mark APRN FISH SEINER Assigned PCP 05/17/22 08/15/22 Leonor Burgos MD ARISE [address] [employer] [address] [place] [address] Assigned PCP 08/16/22 08/29/22 Annalisa Mark APRN FISH SEINER [address] [place] [address] Assigned PCP 08/30/22 11/21/22 Curtis Núñez MD [address] [facility] 276 [place], [place] [address] Assigned Pulmonology Provider 09/13/22 05/17/24 Leonor Burgos MD AR[place] [address]447 [facility] 207 [place] [address] Assigned PCP 11/22/22 11/28/22 Annalisa Mark APRN FISH SEINER Assigned PCP 11/29/22 01/23/23 Lisa Wright PA-C [address] [place] [phone] Assigned PCP 01/24/23 04/17/24 Chanel Asher PA-C 6565 [facility] 200 [place], [place] [address] Assigned PCP 04/18/24 06/17/24 Lisa Wright PA-C [address] [place] [phone] Assigned PCP 06/18/24 documented as of this encounter
--- OUTSIDE RECORDS SUMMARY | 2024-09-19 03:09 | XMS_ITS | Encounter Summary ---
Author Organization [place] Address [address] [place] [address]. [place] [address] Care Team Providers Care Supervisor Stripping Name Role Phone Annalisa Mark APRN, CNP Primary Care Provi miguel Unavailable Deedee, Annalisa Peacock APRN, CNP Unavailable Un available Mukul Rivas PA-C Unavailable + [phone] Deedee, Annalisa Peacock APRN, CNP Unavailable Un available Mukul Rivas PA-C Unavailable [phone] Deedee, Annalisa Peacock APRN, CNP Unavailable Un available Jacob Carmona MD Unavailable + [phone] Leonor Burgos MD Unavailable + DeedeeAnnalisa dean APRN, CNP Unavailable Un available Jacob Carmona MD Primary Care Provider Leonor Burgos MD Unavailable + [facility] Primary Care Provider Annalisa Mark APRN, CNP Unavailable Un available Curtis Núñez MD Unavailable +[phone] Leonor Burgos MD Unavailable + Annalisa Mark ORACLE FUSION DEVELOPER PHARMACOLOGY ASSOCIATE Unavailable Un available Lisa Wright PA-C Primary Care Provider [phone] Lisa Wright PA-C Unavailable [phone] Chanel Asher DEMARCUS Unavailable KyleNormLisakendall Moore PA-C Unavailable [phone] Reason for Visit * Reason Onset Date Comments Care 02/28/2019 Encounter Details Date Type Department Care Team (Late st Contact Info) Description 02/28/2019 MyC Medical Advice [facility] [address] [facility] [address] [place] [address] Jacob Carmona MD [address] [place] [address] Care Social History Tobacco Use [...] PM CDT Legal Sex Female 3:18 AM VETERANS' COUNSELOR Gender Identity Female 03/25/2021 2:01 PM CDT Sexual Orientation Straight 03/25/2021 2: 01 PM CDT 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 Not on file [...] Out C-difficile 09/10/2022 09/10/2022 023 5:27 PM VETERANS' COUNSELOR C-difficile 09/10/2022 09/10/2022 10/10/2022 11:3 9 PM CDT Assessment Noted Time PHQ-9 Depression Total Score: 3 12/08/19 19 7:05 AM CDT documented as of this encounter Care Teams Supervisor Stripping Relationship Specialty Start Date End Date Annalisa Mark APRN PHARMACOLOGY ASSOCIATE PCP - General Nurse Practitioner 03/22/15 06/29/22 Jacob Carmona MD [address] [place] [address] PCP - General 06/30/22 08/28/22 Clinic - [facility] [address] [place] [address] PCP - General 08/29/22 01/18/23 Lisa Wright PA-C [address] [place] [phone] PCP - General Family Medicine 01/19/23 Annalisa Mark APRN PHARMACOLOGY ASSOCIATE Assigned PCP 06/06/18 07/02/19 Mukul Rivas PA-C [address], [place] [id number] Assigned PCP 07/03/19 11/19/19 Annalisa Mark APRN PHARMACOLOGY ASSOCIATE Assigned PCP 11/20/19 12/10/19 Mukul Rivas PA-C [address] [place] [address], [place] [address] Assigned PCP 12/11/19 01/21/20 Annalisa Mark APRN PHARMACOLOGY ASSOCIATE Assigned PCP 01/22/20 02/21/22 Jacob Carmona MD [address] [place] [address] Assigned OBGYN Provider 05/18/20 Leonor Burgos MD ARISE [address] [employer] [address] [place] [address] Assigned PCP 02/22/22 05/16/22 Annalisa Mark APRN PHARMACOLOGY ASSOCIATE Assigned PCP 05/17/22 08/15/22 Leonor Burgos MD ARISE [address] [facility] [address] [place] [address] Assigned PCP 08/16/22 08/29/22 Annalisa Mark APRN PHARMACOLOGY ASSOCIATE [address] [place] [address] Assigned PCP 08/30/22 11/21/22 Curtis Núñez MD 420 [facility] 276 [place] [address] Assigned Pulmonology Provider 09/13/22 05/17/24 Leonor Burgos MD ARISE [address]447 [facility] [address] [place] [address] Assigned PCP 11/22/22 11/28/22 Annalisa Mark APRN PHARMACOLOGY ASSOCIATE Assigned PCP 11/29/22 01/23/23 Lisa Wright PA-C [address] [place] [phone] Assigned PCP 01/24/23 04/17/24 Chanel Asher PA-C 6565 [facility] 200 [place], [place] [address] Assigned PCP 04/18/24 06/17/24 Lisa Wright PA-C [address] [place] [phone] Assigned PCP 06/18/24 documented as of this encounter
--- OUTSIDE RECORDS SUMMARY | 2024-09-19 03:09 | XMS_ITS | Encounter Summary ---
Author Organization [place] Address [address] [place] [address]. [place] [address] Care Team Providers Care Maintenance Mechanic Technician Name Role Phone Annalisa Mark APRN, CNP Primary Care Provi miguel Unavailable Deedee, Annalisa Peacock APRN, CNP Unavailable Un available Mukul Rivas PA-C Unavailable + [phone] Deedee, Annalisa Peacock APRN, CNP Unavailable Un available Mukul Rivas PA-C Unavailable [phone] Deedee, Annalisa Peacock APRN, CNP Unavailable Un available Jacob Carmona MD Unavailable + [phone] Leonor Burgos MD Unavailable + DeedeeAnnalisa dean APRN, CNP Unavailable Un available Jacob Carmona MD Primary Care Provider Leonor Burgos MD Unavailable + [facility] Primary Care Provider Annalisa Mark APRN, CNP Unavailable Un available Curtis Núñez MD Unavailable [phone] Leonor Burgos MD Unavailable + Annalisa Mark HVAC SALES REPRESENTATIVE RECORDS SPECIALIST Unavailable Un available Lisa Wright PA-C Primary Care Provider Lisa Wright PA-C Unavailable [phone] Chanel Asher DEMARCUS Unavailable KyleNormLisakendall Moore PA-C Unavailable [phone] Reason for Visit * Reason Onset Date Comments Care 02/22/2019 Encounter Details Date Type Department Care Team (Late st Contact Info) Description 02/22/2019 MyC Medical Advice [facility] [address] 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 Not on file [...] Out C-difficile 09/10/2022 09/10/2022 023 5:27 PM MEDICAL LAB ASSISTANT C-difficile 09/10/2022 09/10/2022 10/10/2022 11:3 9 PM CDT Assessment Noted Time PHQ-9 Depression Total Score: 3 12/08/19 19 7:05 AM CDT documented as of this encounter Care Teams Maintenance Mechanic Technician Relationship Specialty Start Date End Date Annalisa Mark APRN RECORDS SPECIALIST PCP - General Nurse Practitioner 03/22/15 06/29/22 Jacob Carmona MD [address] [place] [address] PCP - General 06/30/22 08/28/22 Clinic - [facility] [address] [place] [address] PCP - General 08/29/22 01/18/23 Lisa Wright PA-C [address] [place] [phone] PCP - General Family Medicine 01/19/23 Annalisa Mark APRN RECORDS SPECIALIST Assigned PCP 06/06/18 07/02/19 Mukul Rivas PA-C [address], [place] [id number] Assigned PCP 07/03/19 11/19/19 Annalisa Mark APRN RECORDS SPECIALIST Assigned PCP 11/20/19 12/10/19 Mukul Rivas PA-C [address] [place] [address], [place] [address] Assigned PCP 12/11/19 01/21/20 Annalisa Mark APRN RECORDS SPECIALIST Assigned PCP 01/22/20 02/21/22 Jacob Carmona MD [address] [place] [address] Assigned OBGYN Provider 05/18/20 Leonor Burgos MD ARISE [address] [employer] [address] [place] [address] Assigned PCP 02/22/22 05/16/22 Annalisa Mark APRN RECORDS SPECIALIST Assigned PCP 05/17/22 08/15/22 Leonor Burgos MD ARISE [address] [employer] [address] [place] [address] Assigned PCP 08/16/22 08/29/22 Annalisa Mark APRN RECORDS SPECIALIST [address] [place] [address] Assigned PCP 08/30/22 11/21/22 Curtis Núñez MD 420 [facility] 276 [place] [address] Assigned Pulmonology Provider 09/13/22 05/17/24 Leonor Burgos MD ARISE [address] [facility] [address] [place] [address] Assigned PCP 11/22/22 11/28/22 Annalisa Mark APRN RECORDS SPECIALIST Assigned PCP 11/29/22 01/23/23 Lisa Wright PA-C [address] [place] [phone] Assigned PCP 01/24/23 04/17/24 Chanel Asher PA-C 6565 [facility] 200 [place], [place] [address] Assigned PCP 04/18/24 06/17/24 Lisa Wright PA-C [address] [place] [phone] Assigned PCP 06/18/24 documented as of this encounter
--- OUTSIDE RECORDS SUMMARY | 2024-09-19 03:09 | XMS_ITS | Encounter Summary ---
Author Organization [place] Address [address] [place] [address]. [place] [address] Care Team Providers Care Digital Specialist Name Role Phone Annalisa Mark APRN, CNP Primary Care Provi miguel Unavailable Annalisa Mark APRN, CNP Unavailable Un available Jacob Carmona MD Unavailable Leonor Burgos MD Unavailable + Annalisa Mark APRN, CNP Unavailable Un available SabJacob sylvester MD Primary Care Provider Leonor Burgos MD Unavailable + [facility] Primary Care Provider Annalisa Mark APRN, CNP Unavailable Un available Curtis Núñez MD Unavailable [phone] Leonor Burgos MD Unavailable + Annalisa Mark APRN, CNP Unavailable Un available Lisa Wright PA-C Primary Care Provider Lisa Wright PA-C Unavailable [phone] Chanel Asher PA-C Unavailable Lisa Wright PA-C Unavailable [phone] Encounter Details Date Type Department Care Team (Late st Contact Info) Description 10/10/[address] [facility] [address] [facility] [address] [place] [address] Jacob Carmona MD [address] [place] [address] Social History Tobacco Use Types [...] 02/15/2019 Lack of Transportation (Non-Medical) No 02/15/2019 Plaza Depression Scale Answer Date Recorded Plaza Depression Score 2 09/21/2019 Last EPDS Self Harm Result Not on file 09/21 Education Answer Date Recorded What is the highest level of school you have completed or the highest degree you have received? 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 Not on [...] Out C-difficile 09/10/2022 09/10/2022 023 5:27 PM IRS AGENT C-difficile 09/10/2022 09/10/2022 10/10/2022 11:3 9 PM CDT Assessment Noted Time PHQ-9 Depression Total Score: 2 12/08/19 20 7:04 AM CDT documented as of this encounter Care Teams Digital Specialist Relationship Specialty Start Date End Date Annalisa Mark APRN FRONT OFFICE ADMINISTRATOR PCP - General Nurse Practitioner 03/22/15 06/29/22 Jacob Carmona MD [address] [place] [address] PCP - General 06/30/22 08/28/22 Clinic - [facility] [address] [place] [address] PCP - General 08/29/22 01/18/23 Lisa Wright PA-C [address] [place] [phone] PCP - General Family Medicine 01/19/23 Annalisa Mark APRN FRONT OFFICE ADMINISTRATOR Assigned PCP 01/22/20 02/21/22 Jacob Carmona MD [address] [place] [address] Assigned OBGYN Provider 05/18/20 Leonor Burgos MD ARISE [address] [employer] [address] [place] [address] Assigned PCP 02/22/22 05/16/22 Annalisa Mark APRN FRONT OFFICE ADMINISTRATOR Assigned PCP 05/17/22 08/15/22 Leonor Burgos MD ARISE [address] [employer] [address] [place] [address] Assigned PCP 08/16/22 08/29/22 Annalisa Mark APRN FRONT OFFICE ADMINISTRATOR [address] [place] [address] Assigned PCP 08/30/22 11/21/22 Curtis Núñez MD 420 [facility] 276 [place] [address] Assigned Pulmonology Provider 09/13/22 05/17/24 Leonor Burgos MD ARISE [address] [employer] [address] [place] [address] Assigned PCP 11/22/22 11/28/22 Annalisa Mark APRN FRONT OFFICE ADMINISTRATOR Assigned PCP 11/29/22 01/23/23 Lisa Wright PA-C [address] [place] [address] Assigned PCP 01/24/23 04/17/24 Chanel Asher PA-C 6565 [facility] [address] [address] Assigned PCP 04/18/24 06/17/24 Lisa Wright PA-C [address] [place] [address] Assigned PCP 06/18/24 documented as of this encounter
--- OUTSIDE RECORDS SUMMARY | 2024-09-19 03:09 | XMS_ITS | Encounter Summary ---
Author Organization [place] Address [address] [place] [address]. [place] [address] Care Team Providers Care It Support Technician Name Role Phone Annalisa Mark APRN, CNP Primary Care Provi miguel Unavailable Deedee, Annalisa Peacock APRN, CNP Unavailable Un available Mukul Rivas PA-C Unavailable + [phone] Deedee, Annalisa Peacock APRN, CNP Unavailable Un available Mukul Rivas PA-C Unavailable [phone] Deedee, Annalisa Peacock APRN, CNP Unavailable Un available Jacob Carmona MD Unavailable + [phone] Leonor Burgos MD Unavailable + DeedeeAnnalisa dean APRN, CNP Unavailable Un available Jacob Carmona MD Primary Care Provider Leonor Burgos MD Unavailable + [facility] Primary Care Provider Annalisa Mark APRN, CNP Unavailable Un available Curtis Núñez MD Unavailable [phone] Leonor Burgos MD Unavailable + Deedee Annalisa Peacock JADEN POWDER HAND Unavailable Un available Lisa Wright PA-C Primary Care Provider Lisa Wright PA-C Unavailable [phone] Chanel Asher DEMARCUS Unavailable KyleNormLisakendall Moore PA-C Unavailable [phone] Encounter Details Date Type Department Care Team (Late st Contact Info) Description 05/23/2019 MyC Medical Advice 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 See the my chart message. Pamella Miller RN documented in this encounter Plan of Treatment Not on file documented as of this encounter Results * (ABNORMAL) UA with Microscopic (06/01/2019 2:33 PM NURSING UNIT COORDINATOR) Color Urine Yellow 06/01/2019 2:46 PM [facility] Appearance Urine Clear 06/01/20 19 2:46 PM [facility] Glucose Urine Negative NEG^Negat liudmila mg/dL 06/01/2019 2:46 PM [facility] Bilirubin Urine Negative NEG^Negat liudmila 06/01/2019 2:46 PM [facility] Ketones Urine Negative NEG^Negat liudmila mg/dL 06/01/2019 2:46 PM [facility] Specific [place] Urine 1.015 1.003 - 1.035 06/01/2019 2:46 PM [facility] pH Urine 6.0 5.0 - 7.0 pH 06/01/2019 2:46 PM [facility] Protein Albumin Urine Negative NEG^Negat liudmila mg/dL 06/01/2019 2:46 PM [facility] Urobilinogen Urine 0.2 0.2 - 1.0 EU/dL 06/01/2019 2:46 PM [facility] Nitrite Urine Negative NEG^Negat liudmila 06/01/2019 2:46 PM [facility] Blood Urine Negative NEG^Negat liudmila 06/01/2019 2:46 PM [facility] Leukocyte Esterase Urine Negative NEG^Negat liudmila 06/01/2019 2:46 PM [facility] Source Midstream Urine 06/01/2019 2:35 PM [facility] WBC Urine 0 - 5 OTO5^0 - 5 /HPF 06/01/2019 2:46 PM NURSING UNIT COORDINATOR [facility] RBC Urine O - 2 OTO2^O - 2 /HPF 06/01/2019 2:46 PM NURSING UNIT COORDINATOR [facility] Squamous Epithelial /LPF Urine Moderate(A) FEW^Few /LPF 06/01/2019 2:46 PM NURSING UNIT COORDINATOR [facility] Bacteria Urine Few(A) NEG^Negat liudmila /HPF 06/01/2019 2:46 PM NURSING UNIT COORDINATOR [facility] Mucous Urine Present(A) NEG^Negat liudmila /LPF 06/01/2019 2:46 PM NURSING UNIT COORDINATOR [facility] Examination of midstream urine specimen (procedure) 06/01/2019 2:33 PM NURSING UNIT COORDINATOR 06/01/2019 2:34 PM NURSING UNIT COORDINATOR Jacob Carmona MD LAB - URINE ORDERABLES Final Result Performing Organization Address [facility] [address] [facility] Co de Phone Number [facility] [address] [place] [address] * Urine Culture Aerobic Bacterial (06/01/2019 2:32 PM NURSING UNIT COORDINATOR) Specimen Description Midstream Urine [facility] Culture Micro <10,000 colonies/mL mixed urogenital roberto 06/02/2019 8:47 PM NURSING UNIT COORDINATOR [facility] Examination of midstream urine specimen (procedure) 06/01/2019 2:32 PM NURSING UNIT COORDINATOR 06/01/2019 2:33 PM NURSING UNIT COORDINATOR Jacob Carmona MD LAB - MICRO GENERAL OR DERABLES Final Result [facility] [address] [place] [address] documented in this encounter Visit Diagnoses Diagnosis Dysuria- Primary documented in this encounter Additional Health Concerns Infection Onset Date Last Indicated Resolved Time Rule Out COVID-19 01/14/2021 01/14/2021 01/15/2021 3:32 PM CDT Rule Out C-difficile 02/26/2022 02/26/2022 0804/2 022 1:52 PM CDT C-difficile 02/26/2022 02/26/2022 03/28/2022 11:4 1 PM CDT Rule Out C-difficile 09/10/2022 09/10/2022 023 5:27 PM NURSING UNIT COORDINATOR C-difficile 09/10/2022 09/10/2022 10/10/2022 11:3 9 PM CDT Assessment Noted Time PHQ-9 Depression Total Score: 3 12/08/19 19 7:05 AM CDT documented as of this encounter Care Teams It Support Technician Relationship Specialty Start Date End Date Annalisa Mark APRN POWDER HAND PCP - General Nurse Practitioner 03/22/15 06/29/22 Jacob Carmona MD [address] [place] [address] PCP - General 06/30/22 08/28/22 [facility] [id number] [place] [address] PCP - General 08/29/22 01/18/23 Lisa Wright PA-C [address] [place] [phone] PCP - General Family Medicine 01/19/23 Annalisa Mark APRN POWDER HAND Assigned PCP 06/06/18 07/02/19 Mukul Rivas PA-C [address] [place] [address] Assigned PCP 07/03/19 11/19/19 Annalisa Mark APRN POWDER HAND Assigned PCP 11/20/19 12/10/19 Mukul Rivas PA-C [address] [place] [address] Assigned PCP 12/11/19 01/21/20 Annalisa Mark APRN POWDER HAND Assigned PCP 01/22/20 02/21/22 Jacob Carmona MD [address] [place] [address] Assigned OBGYN Provider 05/18/20 Leonor Burgos MD ARISE [address] [employer] [address] [place] [address] Assigned PCP 02/22/22 05/16/22 Annalisa Mark APRN POWDER HAND Assigned PCP 05/17/22 08/15/22 Leonor Burgos MD ARISE [address] [employer] [address] [place] [address] Assigned PCP 08/16/22 08/29/22 Annalisa Mark APRN POWDER HAND [address] [place] [address] Assigned PCP 08/30/22 11/21/22 Curtis Núñez MD 420 [facility] 276 [place], [place] [address] Assigned Pulmonology Provider 09/13/22 05/17/24 Leonor Burgos MD ARISE [address] [employer] [address] [place] [address] Assigned PCP 11/22/22 11/28/22 Annalisa Mark APRN POWDER HAND Assigned PCP 11/29/22 01/23/23 Lisa Wright PA-C [address] [place] [address] Assigned PCP 01/24/23 04/17/24 Chanel Asher PA-C 6565 [facility] 200 [place] [address] Assigned PCP 04/18/24 06/17/24 Lisa Wright PA-C [address] [place] [phone] Assigned PCP 06/18/24 documented as of this encounter
--- OUTSIDE RECORDS SUMMARY | 2024-09-19 03:09 | XMS_ITS | Encounter Summary ---
Author Organization [facility] Address [address] [place] [address]. [place] [address] Care Team Providers Care Laboratory Animal Care Veterinarian Name Role Phone Annalisa Mark APRN, CNP Primary Care Provi miguel Unavailable Deedee, Annalisa Peacock APRN, CNP Unavailable Un available Mukul Rivas PA-C Unavailable + [phone] Deedee, Annalisa Peacock APRN, CNP Unavailable Un available Mukul Rivas PA-C Unavailable [phone] Deedee, Annalisa Peacock APRN, CNP Unavailable Un available Jacob Carmona MD Unavailable + [phone] Leonor Burgos MD Unavailable + DeedeeAnnalisa dean APRN, CNP Unavailable Un available Jacob Carmona MD Primary Care Provider Leonor Burgos MD Unavailable + [facility] Primary Care Provider Annalisa Mark APRN, CNP Unavailable Un available Curtis Núñez MD Unavailable [phone] Leonor Burgos MD Unavailable + Annalisa Mark WOODWORKER BLENDER 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 Unavailable Un available Lisa Wright PA-C Primary Care Provider Lisa Wright PA-C Unavailable Chanel Asher BRENTC Unavailable Norm Wrightkendall Moore PA-C Unavailable [phone] Encounter Details Date Type Department Care Team (Late st Contact Info) Description 02/26/2019 MyC Medical Advice [facility] [address] [facility] [address] [place] [address] Jacob Carmona MD [address] [place] [address] Social History Tobacco Use Types [...] PM CDT Legal Sex Female 3:18 AM BRIEF WRITER Gender Identity Female 03/25/2021 2:01 PM CDT Sexual Orientation Straight 03/25/2021 2: 01 PM CDT 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 on 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 Not on file [...] Out C-difficile 09/10/2022 09/10/2022 023 5:27 PM BRIEF WRITER C-difficile 09/10/2022 09/10/2022 10/10/2022 11:3 9 PM CDT Assessment Noted Time PHQ-9 Depression Total Score: 3 12/08/19 19 7:05 AM CDT documented as of this encounter Care Teams Laboratory Animal Care Veterinarian Relationship Specialty Start Date End Date Annalisa Mark APRN BLENDER 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 PCP - General Nurse Practitioner 03/22/15 06/29/22 Jacob Carmona MD [address] [place] [address] PCP - General 06/30/22 08/28/22 [facility] [address] [place] [address] PCP - General 08/29/22 01/18/23 Lisa Wright PA-C [address] [place] [phone] PCP - General Family Medicine 01/19/23 Annalisa Mark APRN BLENDER 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 Assigned PCP 06/06/18 07/02/19 Mukul Rivas PA-C [address] [place] [address] [place] [id number] Assigned PCP 07/03/19 11/19/19 Annalisa Mark APRN BLENDER 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 Assigned PCP 11/20/19 12/10/19 Mukul Rivas PA-C [address] [place] [id number] Assigned PCP 12/11/19 01/21/20 Annalisa Mark APRN BLENDER 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 Assigned PCP 01/22/20 02/21/22 Jacob Carmona MD [address] [place] [address] Assigned OBGYN Provider 05/18/20 Leonor Burgos MD ARISE [address] [employer] [address] [place] [address] Assigned PCP 02/22/22 05/16/22 Annalisa Mark APRN BLENDER 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 Assigned PCP 05/17/22 08/15/22 Leonor Burgos MD AR[place] [address] [employer] [address] [place] [address] Assigned PCP 08/16/22 08/29/22 Annalisa Mark APRN BLENDER 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 [address] [place] [address] Assigned PCP 08/30/22 11/21/22 Curtis Núñez MD [address] [facility] 276 [place] [address] Assigned Pulmonology Provider 09/13/22 05/17/24 Leonor Burgos MD [place] [address] [facility] [address] [place] [address]38 Assigned PCP 11/22/22 11/28/22 Annalisa Mark APRN BLENDER 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 Assigned PCP 11/29/22 01/23/23 Lisa Wright PA-C [address] [place] [phone] Assigned PCP 01/24/23 04/17/24 Chanel Asher PA-C [address] [facility] [address] [place] [address] Assigned PCP 04/18/24 06/17/24 Lisa Wright PA-C [address] [place] [phone] Assigned PCP 06/18/24 documented as of this encounter
--- OUTSIDE RECORDS SUMMARY | 2024-09-19 03:09 | XMS_ITS | Encounter Summary ---
Author Organization [place] Address [address] [place] [address]. [place] [address] Care Team Providers Care Preload Supervisor Name Role Phone Annalisa Mark APRN, CNP Primary Care Provi miguel Unavailable Annalisa Mark APRN, CNP Unavailable Un available Jacob Carmona MD Unavailable Leonor Burgos MD Unavailable + Annalisa Mark APRN, CNP Unavailable Un available SabJacob sylvester MD Primary Care Provider Leonor Burgos MD Unavailable + [facility] Primary Care Provider Annalisa Mark APRN, CNP Unavailable Un available Curtis Núñez MD Unavailable Leonor Burgos MD Unavailable + Annalisa Mark APRN, CNP Unavailable Un available Lisa Wright PA-C Primary Care Provider [phone] Lisa Wright PA-C Unavailable [phone] Chanel Asher PA-C Unavailable Lisa Wright PA-C Unavailable [phone] Encounter Details Date Type Department Care Team (Late st Contact Info) Description 10/10/2020 MyC Medical Advice [facility] Deborah [address] [facility] [address] [place] [address] Jacob Carmona MD [address] [place] [address] Social History Tobacco Use Types [...] 02/15/2019 Lack of Transportation (Non-Medical) No 02/15/2019 [place] Depression Scale Answer Date Recorded [place] Depression Score 2 09/21/2019 Last EPDS Self Harm Result Not on file 09/21 Education Answer Date Recorded What is the highest level of school you have completed or the highest degree you have received? 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 Not on [...] Out C-difficile 09/10/2022 09/10/2022 023 5:27 PM RN NIGHT C-difficile 09/10/2022 09/10/2022 10/10/2022 11:3 9 PM CDT Assessment Noted Time PHQ-9 Depression Total Score: 2 12/08/19 20 7:04 AM CDT documented as of this encounter Care Teams Preload Supervisor Relationship Specialty Start Date End Date Annalisa Mark APRN ENERGY PROJECTS LEAD PCP - General Nurse Practitioner 03/22/15 06/29/22 Jacob Carmona MD [address] [place] [address] PCP - General 06/30/22 08/28/22 Clinic - [facility] [address] [place] [address] PCP - General 08/29/22 01/18/23 Lisa Wright PA-C [address] [place] [phone] PCP - General Family Medicine 01/19/23 Annalisa Mark APRN ENERGY PROJECTS LEAD Assigned PCP 01/22/20 02/21/22 Jacob Carmona MD [address] [place] [address] Assigned OBGYN Provider 05/18/20 Leonor Burgos MD [place] [address] [employer] [address] [place] [address] Assigned PCP 02/22/22 05/16/22 Annalisa Mark APRN ENERGY PROJECTS LEAD Assigned PCP 05/17/22 08/15/22 Leonor Burgos MD AR[place] [address] [place] [address] Assigned PCP 08/16/22 08/29/22 Annalisa Mark APRN ENERGY PROJECTS LEAD [address] [place] [address] Assigned PCP 08/30/22 11/21/22 Curtis Núñez MD 420 [facility] 276 [place] [address] Assigned Pulmonology Provider 09/13/22 05/17/24 Leonor Burgos MD AR[place] [address] [place] [address] Assigned PCP 11/22/22 11/28/22 Annalisa Mark APRN ENERGY PROJECTS LEAD Assigned PCP 11/29/22 01/23/23 Lisa Wright PA-C [address] [place] [address] Assigned PCP 01/24/23 04/17/24 Chanel Asher PA-C [address] [facility] [address] [address] Assigned PCP 04/18/24 06/17/24 Lisa Wright PA-C [address] [place] [phone] Assigned PCP 06/18/24 documented as of this encounter
--- OUTSIDE RECORDS SUMMARY | 2024-09-19 03:09 | XMS_ITS | Encounter Summary ---
Author Organization [facility] Address [address] [place] [address]. [place] [address] Care Team Providers Care Publicity Agent Name Role Phone Annalisa Mark APRN, CNP Primary Care Provi miguel Unavailable Deedee, Annalisa Peacock APRN, CNP Unavailable Un available Mukul Rivas PA-C Unavailable + [phone] Deedee, Annalisa Peacock APRN, CNP Unavailable Un available Mukul Rivas PA-C Unavailable [phone] Deedee, Annalisa Peacock APRN, CNP Unavailable Un available Jacob Carmona MD Unavailable + [phone] Leonor Burgos MD Unavailable + DeedeeAnnalisa dean APRN, CNP Unavailable Un available Jacob Carmona MD Primary Care Provider Leonor Burgos MD Unavailable + [facility] Primary Care Provider Annalisa Mark APRN, CNP Unavailable Un available Curtis Núñez MD Unavailable [phone] Leonor Burgos MD Unavailable + Annalisa Mark PRINT AND PATTERN DESIGNER SDV PILOT/NAVIGATOR/DDS OPERATOR Unavailable Un available Lisa Wright PA-C Primary Care Provider [phone] Lisa Wright PA-C Unavailable [phone] Chanel Asher DEMARCUS Unavailable [phone] KyleNormLisakendall Moore PA-C Unavailable [phone] Reason for Visit * Reason Onset Date Comments Care 03/09/2019 Encounter Details Date Type Department Care Team (Late st Contact Info) Description 03/09/2019 MyC Medical Advice [facility] [address] [facility] [address] [place] [address] Jacob Carmona MD [address] [place] [address] Care Social History Tobacco Use [...] PM CDT Legal Sex Female 3:18 AM OTR VAN CDL TRUCK DRIVER Gender Identity Female 03/25/2021 2:01 PM CDT Sexual Orientation Straight 03/25/2021 2: 01 PM CDT 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 Not on file [...] Out C-difficile 09/10/2022 09/10/2022 023 5:27 PM OTR VAN CDL TRUCK DRIVER C-difficile 09/10/2022 09/10/2022 10/10/2022 11:3 9 PM CDT Assessment Noted Time PHQ-9 Depression Total Score: 3 12/08/19 19 7:05 AM CDT documented as of this encounter Care Teams Publicity Agent Relationship Specialty Start Date End Date Annalisa Mark APRN SDV PILOT/NAVIGATOR/DDS OPERATOR PCP - General Nurse Practitioner 03/22/15 06/29/22 Jacob Carmona MD [address] [place] [address] PCP - General 06/30/22 08/28/22 Clinic - [facility] [address] [place] [address] PCP - General 08/29/22 01/18/23 Lisa Wright PA-C [address] [place] [phone] PCP - General Family Medicine 01/19/23 Annalisa Mark APRN SDV PILOT/NAVIGATOR/DDS OPERATOR Assigned PCP 06/06/18 07/02/19 Mukul Rivas PA-C [address], [place] [address] Assigned PCP 07/03/19 11/19/19 Annalisa Mark APRN SDV PILOT/NAVIGATOR/DDS OPERATOR Assigned PCP 11/20/19 12/10/19 Mukul Rivas PA-C [address] [place] [address], [place] [address] Assigned PCP 12/11/19 01/21/20 Annalisa Mark APRN SDV PILOT/NAVIGATOR/DDS OPERATOR Assigned PCP 01/22/20 02/21/22 Jacob Carmona MD [address] [place] [address] Assigned OBGYN Provider 05/18/20 Leonor Burgos MD AR[place] [address] [employer] [address] [place] [address] Assigned PCP 02/22/22 05/16/22 Annalisa Mark APRN SDV PILOT/NAVIGATOR/DDS OPERATOR Assigned PCP 05/17/22 08/15/22 Leonor Burgos MD AR[place] [address] [employer] [address] [place] [address] Assigned PCP 08/16/22 08/29/22 Annalisa Mark APRN SDV PILOT/NAVIGATOR/DDS OPERATOR [address] [place] [address] Assigned PCP 08/30/22 11/21/22 Curtis Núñez MD 420 [facility] 276 [place] [address] Assigned Pulmonology Provider 09/13/22 05/17/24 Leonor Burgos MD AR[facility] [address] [facility] [address] [place] [address] Assigned PCP 11/22/22 11/28/22 Annalisa Mark APRN SDV PILOT/NAVIGATOR/DDS OPERATOR Assigned PCP 11/29/22 01/23/23 Lisa Wright PA-C [address] [place] [phone] Assigned PCP 01/24/23 04/17/24 Chanel Asher PA-C [address]65 [facility] 200 [place], [place] [address] Assigned PCP 04/18/24 06/17/24 Lisa Wright PA-C [address] [place] [phone] Assigned PCP 06/18/24 documented as of this encounter
--- OUTSIDE RECORDS SUMMARY | 2024-09-19 03:09 | XMS_ITS | Encounter Summary ---
Author Organization [facility] Address [address] [place] [address]. [place] [address] Care Team Providers Care Roping Machine Tender Name Role Phone Annalisa Mark APRN, CNP Primary Care Provi miguel Unavailable Annalisa Mark APRN, CNP Unavailable Un available Jacob Carmona MD Unavailable Leonor Burgos MD Unavailable + Annalisa Mark APRN, CNP Unavailable Un available SabJacob sylvester MD Primary Care Provider Leonor Burgos MD Unavailable + [facility] Primary Care Provider Annalisa Mark APRN, CNP Unavailable Un available Curtis Núñez MD Unavailable [phone] Leonor Burgos MD Unavailable + Annalisa Mark APRN, CNP Unavailable Un available Lisa Wright PA-C Primary Care Provider Lisa Wright PA-C Unavailable [phone] Chanel Asher PA-C Unavailable Lisa Wright ABILIO-C Unavailable Reason for Visit * Reason Comments Medication Refill Encounter Details Date Type Department Care Team (Late st Contact Info) Description 12/07/2021 Refill [facility] Deborah [address] [facility] [address] [place] [address] Jacob Carmona MD [address] [place], [place] [address] Medication Refill Social History Tobacco Use Types [...] week 10/16/2021 How often do you attend [facility] or [facility]? Patient declined 10/16/2021 Do you belong to any clubs o r organizations such as cheondoism groups, unions, fraternal [...] Answer Date Recorded PHQ-2 Score 0 11/08/2021 [facility] - Occupational Stress Questionnaire Answer Date [...] in a custodial (including now)? No 10/16/2021 [place] Depression Scale Answer Date Recorded [place] Depression Score 2 09/21/2019 Last EPDS Self Harm Result Not on file 09/21 Education Answer Date Recorded What is the highest level of school you have completed or the highest degree you have received? 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 Not on file Not on [...] Out C-difficile 09/10/2022 09/10/2022 023 5:27 PM RECLAMATION FURNACE OPERATOR C-difficile 09/10/2022 09/10/2022 10/10/2022 11:3 9 PM CDT Assessment Noted Time PHQ-9 Depression Total Score: 4 10/18/19 22 10:05 AM CDT documented as of this encounter Care Teams Roping Machine Tender Relationship Specialty Start Date End Date Annalisa Mark APRN MOTOR EXPERT PCP - General Nurse Practitioner 03/22/15 06/29/22 Jacob Carmona MD [address] [place] [address] PCP - General 06/30/22 08/28/22 [facility] [address] [place] [address] PCP - General 08/29/22 01/18/23 Lisa Wright PA-C [address] [place] [address] PCP - General Family Medicine 01/19/23 Annalisa Mark APRN MOTOR EXPERT Assigned PCP 01/22/20 02/21/22 Jacob Carmona MD [address] [place] [address] Assigned OBGYN Provider 05/18/20 Leonor Burgos MD ARISE [address] [employer] [address] [place] [address] Assigned PCP 02/22/22 05/16/22 Annalisa Mark APRN MOTOR EXPERT Assigned PCP 05/17/22 08/15/22 Leonor Burgos MD [place] [address] [place] [address] Assigned PCP 08/16/22 08/29/22 Annalisa Mark APRN MOTOR EXPERT [address] [place] [address] Assigned PCP 08/30/22 11/21/22 Curtis Núñez MD [address] [place] [address] Assigned Pulmonology Provider 09/13/22 05/17/24 Leonor Burgos MD ARISE [address] [place] [address] Assigned PCP 11/22/22 11/28/22 Annalisa Mark APRN MOTOR EXPERT Assigned PCP 11/29/22 01/23/23 Lisa Wright PA-C [address] [place] [address] Assigned PCP 01/24/23 04/17/24 Chanel Asher PA-C [address] [address] Assigned PCP 04/18/24 06/17/24 Lisa Wright PA-C [address] [place] [address] Assigned PCP 06/18/24 documented as of this encounter
--- OUTSIDE RECORDS SUMMARY | 2024-09-19 03:09 | XMS_ITS | Encounter Summary ---
Author Organization [facility] Address [address] [place] [address]. [place] [address] Care Team Providers Care Director Of Counseling Name Role Phone Annalisa Mark APRN, CNP Primary Care Provi miguel Unavailable Deedee, Annalisa Peacock APRN, CNP Unavailable Un available Mukul Rivas PA-C Unavailable + [phone] Deedee, Annalisa Peacock APRN, CNP Unavailable Un available Mukul Rivas PA-C Unavailable [phone] Deedee, Annalisa Peacock APRN, CNP Unavailable Un available Jacob Carmona MD Unavailable + [phone] Leonor Burgos MD Unavailable + DeedeeAnnalisa dean APRN, CNP Unavailable Un available Jacob Carmona MD Primary Care Provider Leonor Burgos MD Unavailable + [facility] Primary Care Provider Annalisa Mark APRN, CNP Unavailable Un available Curtis Núñez MD Unavailable [phone] Leonor Burgos MD Unavailable + Annalisa Mark DEVICE REPAIR TECHNICIAN TATTOO DESIGNER Unavailable Un available Lisa Wright PA-C Primary Care Provider Lisa Wright PA-C Unavailable Chanel Asher PA-C Unavailable Norm Wrightkendall KNOX-C Unavailable Encounter Details Date Type Department Care Team (Late st Contact Info) Description 02/04/2019 MyC Medical Advice [facility] [address] [facility] [address] [place] [address] Jacob Carmona MD [address] [place] [address] Social History Tobacco Use Types Packs/Day Years Used Date Smoking Tobacco: Never Smokeless Tobacco: Never Alcohol Use Standard Drinks/Week Comments Not Currently 0 (1 standard drink = 0.6 oz pur e alcohol) Occaisional PHQ-2 Answer Date Recorded PHQ-2 Score 0 08/03/2018 Comments No Sex and Gender Information Value Date Recorded Sex Assigned at Female 03/25/2021 2:01 PM CDT Legal Sex Female 3:18 AM LEGAL BILLING CLERK Gender Identity Female 03/25/2021 2:01 PM CDT [...] Out C-difficile 09/10/2022 09/10/2022 023 5:27 PM LEGAL BILLING CLERK C-difficile 09/10/2022 09/10/202210/1010/10/2022 11:3 9 PM CDT Assessment Noted Time PHQ-9 Depression Total Score: 3 12/08/19 19 7:05 AM CDT documented as of this encounter Care Teams Director Of Counseling Relationship Specialty Start Date End Date Annalisa Mark APRN TATTOO DESIGNER PCP - General Nurse Practitioner 03/22/15 06/29/22 Jacob Carmona MD [address] [place] [address] PCP - General 06/30/22 08/28/22 [facility] [id number] [place] [address] PCP - General 08/29/22 01/18/23 Lisa Wright PA-C [address] [place] [phone] PCP - General Family Medicine 01/19/23 Annalisa Mark APRN TATTOO DESIGNER Assigned PCP 06/06/18 07/02/19 Mukul Rivas PA-C [address] [place] [address] Assigned PCP 07/03/19 11/19/19 Annalisa Mark APRN TATTOO DESIGNER Assigned PCP 11/20/19 12/10/19 Mukul Rivas PA-C [address] [place] [address] Assigned PCP 12/11/19 01/21/20 Annalisa Mark APRN TATTOO DESIGNER Assigned PCP 01/22/20 02/21/22 Jacob Carmona MD [address] [place] [address] Assigned OBGYN Provider 05/18/20 Leonor Burgos MD ARISE [address] [place] [address] Assigned PCP 02/22/22 05/16/22 Annalisa Mark APRN TATTOO DESIGNER Assigned PCP 05/17/22 08/15/22 Leonor Burgos MD ARISE [address] [employer] [address] [place] [address] Assigned PCP 08/16/22 08/29/22 Annalisa Mark APRN TATTOO DESIGNER [address] [place] [address] Assigned PCP 08/30/22 11/21/22 Curtis Núñez MD 420 [facility] 276 [place] [address] Assigned Pulmonology Provider 09/13/22 05/17/24 Leonor Burgos MD ARISE [address] [employer] [address] [place] [address] Assigned PCP 11/22/22 11/28/22 Annalisa Mark APRN TATTOO DESIGNER Assigned PCP 11/29/22 01/23/23 Lisa Wright PA-C [address] [place] [address] Assigned PCP 01/24/23 04/17/24 Chanel Asher PA-C [address] [facility] [address] [address] Assigned PCP 04/18/24 06/17/24 Lisa Wright PA-C [address] [place] [phone] Assigned PCP 06/18/24 documented as of this encounter
--- OUTSIDE RECORDS SUMMARY | 2024-09-19 03:09 | XMS_ITS | Encounter Summary ---
Author Organization [facility] Address [address] [place] [address]. [place] [address] Care Team Providers Care Military Cook Name Role Phone Annalisa Mark APRN, CNP Primary Care Provi miguel Unavailable Annalisa Mark APRN, CNP Unavailable Un available Jacob Carmona MD Unavailable [phone] Leonor Burgos MD Unavailable + Annalisa Mark APRN, CNP Unavailable Un available SabJacob sylvester MD Primary Care Provider Leonor Burgos MD Unavailable + [facility] Primary Care Provider Annalisa Mark APRN, CNP Unavailable Un available Curtis Núñez MD Unavailable Leonor Burgos MD Unavailable + Annalisa Mark APRN, CNP Unavailable Un available Lisa Wright PA-C Primary Care Provider Lisa Wright PA-C Unavailable [phone] Chanel Asher PA-C Unavailable Lisa Wright PA-C Unavailable [phone] Reason for Visit * Reason Comments Medication Refill Encounter Details Date Type Department Care Team (Late st Contact Info) Description 09/12/2021 Refill [facility] Deborah [address] [facility] [address] [place] [address] Jacob Carmona MD [address] [place] [address] Medication Refill Social History Tobacco Use Types [...] 02/15/2019 Lack of Transportation (Non-Medical) No 02/15/2019 [place] Depression Scale Answer Date Recorded [place] Depression Score 2 09/21/2019 Last EPDS Self Harm Result Not on file 09/21 Education Answer Date Recorded What is the highest level of school you have completed or the highest degree you have received? 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 No / Unsure 08/29/2021 2:17 PM COMPANY TANKER TRUCK DRIVER documented as of this encounter Plan of [...] Out C-difficile 09/10/2022 09/10/2022 023 5:27 PM COMPANY TANKER TRUCK DRIVER C-difficile 09/10/2022 09/10/2022 10/10/2022 11:3 9 PM CDT Assessment Noted Time PHQ-9 Depression Total Score: 2 03/25/20 21 2:42 PM CDT documented as of this encounter Care Teams Military Cook Relationship Specialty Start Date End Date Annalisa Mark APRN DESTINATION SPECIALIST PCP - General Nurse Practitioner 03/22/15 06/29/22 Jacob Carmona MD [facility] [place] [address] PCP - General 06/30/22 08/28/22 Clinic - [facility] [address] [place] [address] PCP - General 08/29/22 01/18/23 Lisa Wright PA-C [address] [place] [phone] PCP - General Family Medicine 01/19/23 Annalisa Mark APRN DESTINATION SPECIALIST Assigned PCP 01/22/20 02/21/22 Jacob Carmona MD [address] [place] [address] Assigned OBGYN Provider 05/18/20 Leonor Burgos MD [place] [address] [place] [address] Assigned PCP 02/22/22 05/16/22 Annalisa Mark APRN DESTINATION SPECIALIST Assigned PCP 05/17/22 08/15/22 Leonor Burgos MD ARISE [address] [place] [address] Assigned PCP 08/16/22 08/29/22 Annalisa Mark APRN DESTINATION SPECIALIST [address] [place] [address] Assigned PCP 08/30/22 11/21/22 Curtis Núñez MD 420 [facility] 276 [place] [address] Assigned Pulmonology Provider 09/13/22 05/17/24 Leonor Burgos MD ARISE [address] [employer] [address] [place] [address] Assigned PCP 11/22/22 11/28/22 Annalisa Mark APRN DESTINATION SPECIALIST Assigned PCP 11/29/22 01/23/23 Lisa Wright PA-C [address] [place] [address] Assigned PCP 01/24/23 04/17/24 Chanel Asher PA-C 6565 [facility] [address] [address] Assigned PCP 04/18/24 06/17/24 Lisa Wright PA-C [address] [place] [phone] Assigned PCP 06/18/24 documented as of this encounter
--- OUTSIDE RECORDS SUMMARY | 2024-09-19 03:09 | XMS_ITS | Encounter Summary ---
Author Organization [facility] Address [address] [place] [address]. [place] [address] Care Team Providers Care Operations Manager Station Name Role Phone Annalisa Mark APRN, CNP [...] Primary Care Provider Lisa Wright PA-C Unavailable [phone] Chanel Asher PA-C Unavailable Lisa Wright PA-C Unavailable [phone] Encounter Details Date Type Department Care Team (Late st Contact Info) Description 10/10/2020 MyC Medical Advice [facility] Deborah [address] [facility] [address] [place] [address] Jacob Carmona MD [address] [place] [address] Social History Tobacco Use Types [...] 02/15/2019 Lack of Transportation (Non-Medical) No 02/15/2019 [place] Depression Scale Answer Date Recorded [place] Depression Score 2 09/21/2019 Last EPDS Self Harm Result Not on file 09/21 Education Answer Date Recorded What is the highest level of school you have completed or the highest degree you have received? 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 Not on file [...] Out C-difficile 09/10/2022 09/10/2022 023 5:27 PM TRADEMARK AFFIXER C-difficile 09/10/2022 09/10/2022 10/10/2022 11:3 9 PM CDT Assessment Noted Time PHQ-9 Depression Total Score: 2 12/08/19 20 7:04 AM CDT documented as of this encounter Care Teams Operations Manager Station Relationship Specialty Start Date End Date Annalisa Mark APRN TUMBLING AND ROLLING SUPERVISOR PCP - General Nurse Practitioner 03/22/15 06/29/22 Jacob Carmona MD [address] [place] [address] PCP - General 06/30/22 08/28/22 Clinic - [facility] [address] [place] [address] PCP - General 08/29/22 01/18/23 Lisa Wright PA-C [address] [place] [phone] PCP - General Family Medicine 01/19/23 Annalisa Mark APRN TUMBLING AND ROLLING SUPERVISOR Assigned PCP 01/22/20 02/21/22 Jacob Carmona MD [address] [place] [address] Assigned OBGYN Provider 05/18/20 Leonor Burgos MD [address] [place] [address] Assigned PCP 02/22/22 05/16/22 Annalisa Mark APRN TUMBLING AND ROLLING SUPERVISOR Assigned PCP 05/17/22 08/15/22 Leonor Burgos MD ARISE [address] [place] [address] Assigned PCP 08/16/22 08/29/22 Annalisa Mark APRN TUMBLING AND ROLLING SUPERVISOR [address] [place] [address] Assigned PCP 08/30/22 11/21/22 Curtis Núñez MD [address] [facility] 276 [place] [address] Assigned Pulmonology Provider 09/13/22 05/17/24 Leonor Burgos MD AR[place] [address] [place] [address] Assigned PCP 11/22/22 11/28/22 Annalisa Mark APRN TUMBLING AND ROLLING SUPERVISOR Assigned PCP 11/29/22 01/23/23 Lisa Wright PA-C [address] [place] [address] Assigned PCP 01/24/23 04/17/24 Chanel Asher PA-C [address] [facility] [place] [address] [address] Assigned PCP 04/18/24 06/17/24 Lisa Wright PA-C [address] [place] [address] Assigned PCP 06/18/24 documented as of this encounter
--- OUTSIDE RECORDS SUMMARY | 2024-09-19 03:09 | XMS_ITS | Encounter Summary ---
Author Organization [place] Address [address] [place] [address]. [place] [address] Care Team Providers Care Night Monitor Name Role Phone Annalisa Mark APRN, CNP Primary Care Provi miguel Unavailable Deedee, Annalisa Peacock APRN, CNP Unavailable Un available Mukul Rivas PA-C Unavailable + [phone] Deedee, Annalisa Peacock APRN, CNP Unavailable Un available Mukul Rivas PA-C Unavailable [phone] Deedee, Annalisa Peacock APRN, CNP Unavailable Un available Jacob Carmona MD Unavailable + [phone] Leonor Burgos MD Unavailable + DeedeeAnnalisa dean APRN, CNP Unavailable Un available Jacob Carmona MD Primary Care Provider Leonor Burgos MD Unavailable + [facility] Primary Care Provider Annalisa Mark APRN, CNP Unavailable Un available Curtis Núñez MD Unavailable [phone] Leonor Burgos MD Unavailable + DeedeeAnnalisa dean JADEN DIE CASTING MACHINE MAINTAINER Unavailable Un available Lisa Wright PA-C Primary Care Provider [phone] Lisa Wright PA-C Unavailable [phone] Chanel Asher DEMARCUS Unavailable KyleNormLisakendall Moore PA-C Unavailable [phone] Encounter Details Date Type Department Care Team (Late st Contact Info) Description 06/02/2019 MyC Medical Advice [facility] [address] [place] [address] Jacob Carmona MD [address] [place] [address] Social History Tobacco Use Types [...] PM CDT Legal Sex Female 3:18 AM TRACTOR EXPERT Gender Identity Female 03/25/2021 2:01 PM CDT [...] Out C-difficile 09/10/2022 09/10/2022 023 5:27 PM TRACTOR EXPERT C-difficile 09/10/2022 09/10/2022 10/10/2022 11:3 9 PM CDT Assessment Noted Time PHQ-9 Depression Total Score: 3 12/08/19 19 7:05 AM CDT documented as of this encounter Care Teams Night Monitor Relationship Specialty Start Date End Date Annalisa Mark APRN DIE CASTING MACHINE MAINTAINER PCP - General Nurse Practitioner 03/22/15 06/29/22 Jacob Carmona MD [address] [place] [address] PCP - General 06/30/22 08/28/22 [facility] [address] [place] [address] PCP - General 08/29/22 01/18/23 Lisa Wright PA-C [address] [place] [phone] PCP - General Family Medicine 01/19/23 Annalisa Mark APRN DIE CASTING MACHINE MAINTAINER Assigned PCP 06/06/18 07/02/19 Mukul Rivas PA-C [address] [address] Assigned PCP 07/03/19 11/19/19 Annalisa Mark APRN DIE CASTING MACHINE MAINTAINER Assigned PCP 11/20/19 12/10/19 Mukul Rivas PA-C [address] [place] [address] Assigned PCP 12/11/19 01/21/20 Annalisa Mark APRN DIE CASTING MACHINE MAINTAINER Assigned PCP 01/22/20 02/21/22 Jacob Carmona MD [address] [place] [address] Assigned OBGYN Provider 05/18/20 Leonor Burgos MD AR[place] [address] [address] Assigned PCP 02/22/22 05/16/22 Annalisa Mark APRN DIE CASTING MACHINE MAINTAINER Assigned PCP 05/17/22 08/15/22 Leonor Burgos MD AR[place] [address] [place] [address] Assigned PCP 08/16/22 08/29/22 Annalisa Mark APRN DIE CASTING MACHINE MAINTAINER [address] [place] [address] Assigned PCP 08/30/22 11/21/22 Curtis Núñez MD 420 [facility] 276 [place] [address] Assigned Pulmonology Provider 09/13/22 05/17/24 Leonor Burgos MD [place] [address] [place] [address] [place] [address] Assigned PCP 11/22/22 11/28/22 Annalisa Mark APRN DIE CASTING MACHINE MAINTAINER Assigned PCP 11/29/22 01/23/23 Lisa Wright PA-C [address] [place] [phone] Assigned PCP 01/24/23 04/17/24 Chanel Asher PA-C [address] [facility] 200 [place], [place] [address] Assigned PCP 04/18/24 06/17/24 Lisa Wright PA-C [address] [place] [address] Assigned PCP 06/18/24 documented as of this encounter
--- OUTSIDE RECORDS SUMMARY | 2024-09-19 03:09 | XMS_ITS | Encounter Summary ---
Author Organization [facility] Address [address] [place] [address]. [place] [address] Care Team Providers Care Executive Chairman Name Role Phone Annalisa Mark APRN, CNP Primary Care Provi miguel Unavailable Deedee, Annalisa Peacock APRN, CNP Unavailable Un available Mukul Rivas PA-C Unavailable + [phone] Deedee, Annalisa Peacock APRN, CNP Unavailable Un available Mukul Rivas PA-C Unavailable [phone] Deedee, Annalisa Peacock APRN, CNP Unavailable Un available Jacob Carmona MD Unavailable + [phone] Leonor Burgos MD Unavailable + DeedeeAnnalisa dean APRN, CNP Unavailable Un available Jacob Carmona MD Primary Care Provider Leonor Burgos MD Unavailable + [facility] Primary Care Provider Annalisa Mark APRN, CNP Unavailable Un available Curtis Núñez MD Unavailable [phone] Leonor Burgos MD Unavailable + Annalisa Mark VETERINARIAN EPIDEMIOLOGIST WIRELESS STORE MANAGER Unavailable Un available Lisa Wright PA-C Primary Care Provider Lisa Wright PA-C Unavailable [phone] Chanel Asher DEMARCUS Unavailable [phone] KyleNormLisakendall Moore PA-C Unavailable [phone] Reason for Visit * Reason Onset Date Comments Care 06/19/2019 Encounter Details Date Type Department Care Team (Late st Contact Info) Description 06/19/2019 MyC Medical Advice [facility] [address] [facility] [address] [place] [address] Jacob Carmona MD [address] [place] [address] Care Social History Tobacco Use [...] PM CDT Legal Sex Female 3:18 AM FLEXOGRAPHIC PRESS HELPER Gender Identity Female 03/25/2021 2:01 PM CDT Sexual Orientation Straight 03/25/2021 2: 01 PM CDT 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 Not on file [...] Out C-difficile 09/10/2022 09/10/2022 023 5:27 PM FLEXOGRAPHIC PRESS HELPER C-difficile 09/10/2022 09/10/2022 10/10/2022 11:3 9 PM CDT Assessment Noted Time PHQ-9 Depression Total Score: 3 12/08/19 19 7:05 AM CDT documented as of this encounter Care Teams Executive Chairman Relationship Specialty Start Date End Date Annalisa Mark APRN WIRELESS STORE MANAGER PCP - General Nurse Practitioner 03/22/15 06/29/22 Jacob Carmona MD [address] [place] [address] PCP - General 06/30/22 08/28/22 Clinic - [facility] [address] [place] [address] PCP - General 08/29/22 01/18/23 Lisa Wright PA-C [address] [place] [phone] PCP - General Family Medicine 01/19/23 Annalisa Mark APRN WIRELESS STORE MANAGER Assigned PCP 06/06/18 07/02/19 Mukul Rivas PA-C [address], [place] [phone] Assigned PCP 07/03/19 11/19/19 Annalisa Mark APRN WIRELESS STORE MANAGER Assigned PCP 11/20/19 12/10/19 Mukul Rivas PA-C [address] [place] [address], [place] [address] Assigned PCP 12/11/19 01/21/20 Annalisa Mark APRN WIRELESS STORE MANAGER Assigned PCP 01/22/20 02/21/22 Jacob Carmona MD [address] [place] [address] Assigned OBGYN Provider 05/18/20 Leonor Burgos MD ARISE [address] [place] [address] Assigned PCP 02/22/22 05/16/22 Annalisa Mark APRN WIRELESS STORE MANAGER Assigned PCP 05/17/22 08/15/22 Leonor Burgos MD ARISE [address] [place] [address] Assigned PCP 08/16/22 08/29/22 Annalisa Mark APRN WIRELESS STORE MANAGER [address] [place] [address] Assigned PCP 08/30/22 11/21/22 Curtis Núñez MD 420 [facility] 276 [place] [address] Assigned Pulmonology Provider 09/13/22 05/17/24 Leonor Burgos MD ARISE [address] [facility] [address] [place] [address] Assigned PCP 11/22/22 11/28/22 Annalisa Mark APRN WIRELESS STORE MANAGER Assigned PCP 11/29/22 01/23/23 Lisa Wright PA-C [address] [place] [phone] Assigned PCP 01/24/23 04/17/24 Chanel Asher PA-C 6565 [facility] 200 [place], [place] [address] Assigned PCP 04/18/24 06/17/24 Lisa Wright PA-C [address] [place] [phone] Assigned PCP 06/18/24 documented as of this encounter
--- OUTSIDE RECORDS SUMMARY | 2024-09-19 03:09 | XMS_ITS | Encounter Summary ---
Author Organization [place] Address [facility] [place] [address] Care Team Providers Care Accounts Adjustable Clerk Name Role Phone Jacob Carmona MD Unavailable [facility] Primary Care Provider Annalisa Mark APRN HELP DESK ANALYST Unavailable Un available Curtis Núñez MD Unavailable Leonor Burgos MD Unavailable + Annalisa Mark APRN HELP DESK ANALYST Unavailable Un available Lisa Wright PA-C Primary Care Provider Lisa Wright PA-C Unavailable [phone] Chanel Asher PA-C Unavailable Lisa Wright PA-C Unavailable [phone] Encounter Details Date Type Department Care Team (Late st Contact Info) Description 11/04/2022 [facility] [place] [address] [place] [address] Jacob Carmona MD [address] [place] [address] Social History Tobacco Use Types [...] week 10/16/2021 How often do you attend [facility] or confucianism services? Patient declined 10/16/2021 Do you belong to any clubs o r organizations such as rastafari groups, unions, fraternal [...] Answer Date Recorded PHQ-2 Score 0 07/03/2022 [facility] of Occupat ional Health - [...] health care facility (including now)? No 10/16/2021 [place] Depression Scale Answer Date Recorded [place] Depression Score 2 09/21/2019 Last EPDS Self Harm Result Not on file 09/21 Education Answer Date Recorded What is the highest level of school you have completed or the highest degree you have received? 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 No / Unsure 11/04/2022 3:13 PM CDT documented as of this encounter Miscellaneous Notes * Telephone Encounter - Jojo Anguiano - 11/04/2022 3:14 PM CDT Reason for [...] we send this information to you in [employer] or would you prefer to receive a phone call?: Patient would like to be contacted via [employer] Call taken on 11/04/2022 at 3:14 PM by Jojo Anguiano documented in this encounter Plan of Treatment Not on file documented as of this encounter Visit Diagnoses Not on filedocumented in this encounter Additional Health Concerns Assessment Noted Time PHQ-9 Depression Total Score: 1 04/08/20 22 4:38 PM CDT documented as of this encounter Care Teams Accounts Adjustable Clerk Relationship Specialty Start Date End Date Clinic - [facility] [address] [place] [address] PCP - General 08/29/22 01/18/23 Lisa Wright PA-C [address] [place] [address] PCP - General Family Medicine 01/19/23 Jacob Carmona MD [address] [place] [address] Assigned OBGYN Provider 05/18/20 Annalisa Mark APRN HELP DESK ANALYST [address] [place] [address] Assigned PCP 08/30/22 11/21/22 Curtis Núñez MD [address] [place] [address] 276 [place] [address] Assigned Pulmonology Provider 09/13/22 05/17/24 Leonor Burgos MD ARISE [address] [facility] 207 [place] [address] Assigned PCP 11/22/22 11/28/22 Annalisa Mark APRN HELP DESK ANALYST Assigned PCP 11/29/22 01/23/23 Lisa Wright PA-C [address] [place] [address] Assigned PCP 01/24/23 04/17/24 Chanel Asher PA-C 6565 [facility] 200 [place] [address] Assigned PCP 04/18/24 06/17/24 Lisa Wright PA-C [address] [place] [phone] Assigned PCP 06/18/24 documented as of this encounter
--- OUTSIDE RECORDS SUMMARY | 2024-09-19 03:09 | XMS_ITS | Encounter Summary ---
Author Organization [facility] Address [address] [place] [address]. [place] [address] Care Team Providers Care Laser Systems Engineer Name Role Phone Annalisa Mark APRN, CNP Primary Care Provi miguel Unavailable Deedee, Annalisa Peacock APRN, CNP Unavailable Un available Mukul Rivas PA-C Unavailable + [phone] Deedee, Annalisa Peacock APRN, CNP Unavailable Un available Mukul Rivas PA-C Unavailable [phone] Deedee, Annalisa Peacock APRN, CNP Unavailable Un available Jacob Carmona MD Unavailable + [phone] Leonor Burgos MD Unavailable + DeedeeAnnalisa dean APRN, CNP Unavailable Un available Jacob Carmona MD Primary Care Provider Leonor Burgos MD Unavailable + [facility] Primary Care Provider Annalisa Mark APRN, CNP Unavailable Un available Curtis Núñez MD Unavailable [phone] Leonor Burgos MD Unavailable + Annalisa Mark POCKET 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 MEDICATION AIDE Unavailable Un available Lisa Wright PA-C Primary Care Provider [phone] Lisa Wright PA-C Unavailable [phone] Chanel Asher BRENTC Unavailable KyleNormLisakendall Moore PA-C Unavailable [phone] Encounter Details Date Type Department Care Team (Late st Contact Info) Description 02/25/2019 MyC Medical Advice [facility] [address] [facility] [address] [place] [address] Jacob Carmona MD [address] [place] [address] Social History Tobacco Use Types [...] PM CDT Legal Sex Female 3:18 AM MARINE GEOLOGIST Gender Identity Female 03/25/2021 2:01 PM CDT Sexual Orientation Straight 03/25/2021 2: 01 PM CDT 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 Not on [...] Out C-difficile 09/10/2022 09/10/2022 023 5:27 PM MARINE GEOLOGIST C-difficile 09/10/2022 09/10/2022 10/10/2022 11:3 9 PM CDT Assessment Noted Time PHQ-9 Depression Total Score: 3 12/08/19 19 7:05 AM CDT documented as of this encounter Care Teams Laser Systems Engineer Relationship Specialty Start Date End Date Annalisa Mark APRN MEDICATION AIDE PCP - General Nurse Practitioner 03/22/15 06/29/22 Jacob Carmona MD [address] [place] [address] PCP - General 06/30/22 08/28/22 [facility] [address] [place] [address] PCP - General 08/29/22 01/18/23 Lisa Wright PA-C [address] [place] [phone] PCP - General Family Medicine 01/19/23 Annalisa Mark APRN MEDICATION AIDE Assigned PCP 06/06/18 07/02/19 Mukul Rivas PA-C [address] [place] [address] [place] [address] Assigned PCP 07/03/19 11/19/19 Annalisa Mark APRN MEDICATION AIDE Assigned PCP 11/20/19 12/10/19 Mukul Rivas PA-C [address] [place] [id number] Assigned PCP 12/11/19 01/21/20 Annalisa Mark APRN MEDICATION AIDE Assigned PCP 01/22/20 02/21/22 Jacob Carmona MD [address] [place] [address] Assigned OBGYN Provider 05/18/20 Leonor Burgos MD ARISE [address] [place] [address] Assigned PCP 02/22/22 05/16/22 Annalisa Mark APRN MEDICATION AIDE Assigned PCP 05/17/22 08/15/22 Leonor Burgos MD ARISE [address] [place] [address] Assigned PCP 08/16/22 08/29/22 Annalisa Mark APRN MEDICATION AIDE [address] [place] [address] Assigned PCP 08/30/22 11/21/22 Curtis Núñez MD 420 [facility] 276 [place] [address] Assigned Pulmonology Provider 09/13/22 05/17/24 Leonor Burgos MD ARISE 7447 [facility] [address] [place] [address] Assigned PCP 11/22/22 11/28/22 Annalisa Mark APRN MEDICATION AIDE Assigned PCP 11/29/22 01/23/23 Lisa Wright PA-C [address] [place] [address] Assigned PCP 01/24/23 04/17/24 Chanel Asher PA-C 6565 [facility] [address] [place] [address] Assigned PCP 04/18/24 06/17/24 Lisa Wright PA-C [address] [place] [phone] Assigned PCP 06/18/24 documented as of this encounter
--- OUTSIDE RECORDS SUMMARY | 2024-09-19 03:09 | XMS_ITS | Encounter Summary ---
Author Organization [facility] Address [address] [place] [address]. [place] [address] Care Team Providers Care Nursing Assoc Name Role Phone Annalisa Mark APRN, CNP Primary Care Provi miguel Unavailable Deedee, Annalisa Peacock APRN, CNP Unavailable Un available Mukul Rivas PA-C Unavailable + [phone] Deedee, Annalisa Peacock APRN, CNP Unavailable Un available Mukul Rivas PA-C Unavailable [phone] Deedee, Annalisa Peacock APRN, CNP Unavailable Un available Jacob Carmona MD Unavailable + [phone] Leonor Burgos MD Unavailable + DeedeeAnnalisa dean APRN, CNP Unavailable Un available Jacob Carmona MD Primary Care Provider Leonor Burgos MD Unavailable + [facility] Primary Care Provider Annalisa Mark APRN, CNP Unavailable Un available Curtis Núñez MD Unavailable [phone] Leonor Burgos MD Unavailable + Annalisa Mark RESISTOR COATER MUNITIONS FACTORY WORKER Unavailable Un available Lisa Wright PA-C Primary Care Provider [phone] Lisa Wright PA-C Unavailable [phone] Chanel Asher BRENTC Unavailable KyleNormLisakendall Moore PA-C Unavailable [phone] Reason for Visit * Reason Onset Date Comments Results 06/16/2019 Encounter Details Date Type Department Care Team (Late st Contact Info) Description 06/16/2019 MyC Medical Advice [facility] [address] [facility] [address] [place] [address] Jacob Carmona MD [address] [place] [address] Results Social History Tobacco Use [...] PM CDT Legal Sex Female 3:18 AM PARKING CONTROL OFFICER Gender Identity Female 03/25/2021 2:01 PM CDT Sexual Orientation Straight 03/25/2021 2: 01 PM CDT 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 CBC nml for ? Nml GCT. Okay to report to her? Casie Escobedo R.N. [facility] ING CONTROL OFFICER * Telephone Encounter - Casie Santos RN - 06/16/2019 9:48 AM CST Glucose not back yet, will wait for that result. Casie Escobedo R.N. [facility] ING CONTROL OFFICER documented in this encounter Plan of Treatment [...] Out C-difficile 09/10/2022 09/10/2022 023 5:27 PM PARKING CONTROL OFFICER C-difficile 09/10/2022 09/10/2022 10/10/2022 11:3 9 PM CDT Assessment Noted Time PHQ-9 Depression Total Score: 3 12/08/19 19 7:05 AM CDT documented as of this encounter Care Teams Nursing Assoc Relationship Specialty Start Date End Date Annalisa Mark, RESISTOR COATER MUNITIONS FACTORY WORKER PCP - General Nurse Practitioner 03/22/15 06/29/22 Jacob Carmona MD [address] [place] [address] PCP - General 06/30/22 08/28/22 [facility] [address] [place], [place] [phone] PCP - General 08/29/22 01/18/23 Lisa Wright PA-C [id number] [place] [phone] PCP - General Family Medicine 01/19/23 Annalisa Mark APRN MUNITIONS FACTORY WORKER Assigned PCP 06/06/18 07/02/19 Mukul Rivas PA-C [address] [place] [address] Assigned PCP 07/03/19 11/19/19 Annalisa Mark APRN MUNITIONS FACTORY WORKER Assigned PCP 11/20/19 12/10/19 Mukul Rivas PA-C [address] [place] [address] Assigned PCP 12/11/19 01/21/20 Annalisa Mark APRN MUNITIONS FACTORY WORKER Assigned PCP 01/22/20 02/21/22 Jacob Carmona MD [address] [place] [address] Assigned OBGYN Provider 05/18/20 Leonor Burgos MD [place] [address] [place] [address] Assigned PCP 02/22/22 05/16/22 Annalisa Mark APRN MUNITIONS FACTORY WORKER Assigned PCP 05/17/22 08/15/22 Leonor Burgos MD ARISE [address] [place] [address] Assigned PCP 08/16/22 08/29/22 Annalisa Mark APRN MUNITIONS FACTORY WORKER [address] [facility] [place] [address] Assigned PCP 08/30/22 11/21/22 Curtis Núñez MD [address] [place] [address] 276 [place] [address] Assigned Pulmonology Provider 09/13/22 05/17/24 Leonor uBrgos MD ARISE [address] [place] [address] Assigned PCP 11/22/22 11/28/22 Annalisa Mark APRN MUNITIONS FACTORY WORKER Assigned PCP 11/29/22 01/23/23 Lisa Wright PA-C [address] [place] [address] Assigned PCP 01/24/23 04/17/24 Chanel Asher PA-C [address] [place] [address] Assigned PCP 04/18/24 06/17/24 Lisa Wright PA-C [address] [place] [phone] Assigned PCP 06/18/24 documented as of this encounter
--- OUTSIDE RECORDS SUMMARY | 2024-09-19 03:09 | XMS_ITS | Encounter Summary ---
Author Organization [place] Address [address] [place] [address]. [place] [address] Care Team Providers Care Educational Fundraising Director Name Role Phone Annalisa Mark APRN, CNP Primary Care Provi miguel Unavailable Deedee, Annalisa Peacock APRN, CNP Unavailable Un available Mukul Rivas PA-C Unavailable + [phone] Deedee, Annalisa Peacock APRN, CNP Unavailable Un available Mukul Rivas PA-C Unavailable [phone] Deedee, Annalisa Peacock APRN, CNP Unavailable Un available Jacob Carmona MD Unavailable + [phone] Leonor Burgos MD Unavailable + DeedeeAnnalisa dean APRN, CNP Unavailable Un available Jacob Carmona MD Primary Care Provider Leonor Burgos MD Unavailable + [facility] Primary Care Provider Annalisa Mark APRN, CNP Unavailable Un available Curtis Núñez MD Unavailable [phone] Leonor Burgos MD Unavailable + Annalisa Mark WHISKEY REGAUGER PROFESSIONAL SPORTS SCOUT Unavailable Un available Lisa Wright PA-C Primary Care Provider Lisa Wright PA-C Unavailable [phone] Chanel Asher BRENTC Unavailable KyleNormLisakendall Moore PA-C Unavailable [phone] Encounter Details Date Type Department Care Team (Late st Contact Info) Description 03/28/2019 MyC Medical Advice [facility] [address] [facility] [address] [place] [address] Jacob Carmona MD [address] [place] [address] Social History Tobacco Use Types [...] PM CDT Legal Sex Female 3:18 AM TOOTH CUTTER PINION Gender Identity Female 03/25/2021 2:01 PM CDT Sexual Orientation Straight 03/25/2021 2: 01 PM CDT 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 Not on [...] Out C-difficile 09/10/2022 09/10/2022 023 5:27 PM TOOTH CUTTER PINION C-difficile 09/10/2022 09/10/2022 10/10/2022 11:3 9 PM CDT Assessment Noted Time PHQ-9 Depression Total Score: 3 12/08/19 19 7:05 AM CDT documented as of this encounter Care Teams Educational Fundraising Director Relationship Specialty Start Date End Date Annalisa Mark APRN PROFESSIONAL SPORTS SCOUT PCP - General Nurse Practitioner 03/22/15 06/29/22 Jacob Carmona MD [address] [place] [address] PCP - General 06/30/22 08/28/22 [facility] [address] [place] [address] PCP - General 08/29/22 01/18/23 Lisa Wright PA-C [address] [place] [phone] PCP - General Family Medicine 01/19/23 Annalisa Mark APRN PROFESSIONAL SPORTS SCOUT Assigned PCP 06/06/18 07/02/19 Mukul Rivas PA-C [address] [place] [address] [place] [phone] Assigned PCP 07/03/19 11/19/19 Annalisa Mark APRN PROFESSIONAL SPORTS SCOUT Assigned PCP 11/20/19 12/10/19 Mukul Rivas PA-C [address] [place] [id number] Assigned PCP 12/11/19 01/21/20 Annalisa Mark APRN PROFESSIONAL SPORTS SCOUT Assigned PCP 01/22/20 02/21/22 Jacob Carmona MD [address] [place] [address] Assigned OBGYN Provider 05/18/20 Leonor Burgos MD [place] [address] [place] [address] Assigned PCP 02/22/22 05/16/22 Annalisa Mark APRN PROFESSIONAL SPORTS SCOUT Assigned PCP 05/17/22 08/15/22 Leonor Burgos MD ARISE [address] [place] [address] Assigned PCP 08/16/22 08/29/22 Annalisa Mark APRN PROFESSIONAL SPORTS SCOUT [address] [place] [address] Assigned PCP 08/30/22 11/21/22 Curtis Núñez MD 420 [facility] 276 [place] [address] Assigned Pulmonology Provider 09/13/22 05/17/24 Leonor Burgos MD [place] [address] [facility] [address] [place] [address]39728 Assigned PCP 11/22/22 11/28/22 Annalisa Mark APRN PROFESSIONAL SPORTS SCOUT Assigned PCP 11/29/22 01/23/23 Lisa Wright PA-C [address] [facility] [place] [phone] Assigned PCP 01/24/23 04/17/24 Chanel Asher PA-C [address] [facility] [address] [place] [id number] Assigned PCP 04/18/24 06/17/24 Lisa Wright PA-C [address] [facility] [place] [phone] Assigned PCP 06/18/24 documented as of this encounter
--- OUTSIDE RECORDS SUMMARY | 2024-09-19 03:09 | XMS_ITS | Encounter Summary ---
Author Organization [facility] Address [address] [place] [address]. [place] [address] Care Team Providers Care Hyperion Administrator Name Role Phone Annalisa Mark APRN, CNP Primary Care Provi miguel Unavailable Deedee, Annalisa Peacock APRN, CNP Unavailable Un available Mukul Rivas PA-C Unavailable + [phone] Deedee, Annalisa Peacock APRN, CNP Unavailable Un available Mukul Rivas PA-C Unavailable [phone] Deedee, Annalisa Peacock APRN, CNP Unavailable Un available Jacob Carmona MD Unavailable + [phone] Leonor Burgos MD Unavailable + DeedeeAnnalisa dean APRN, CNP Unavailable Un available Jacob Carmona MD Primary Care Provider Leonor Burgos MD Unavailable + [facility] Primary Care Provider Annalisa Mark APRN, CNP Unavailable Un available Curtis Núñez MD Unavailable [phone] Leonor Burgos MD Unavailable + Annalisa Mark TECHNICAL STENOGRAPHER PAPER WOOD CUTTER Unavailable Un available Lisa Wright PA-C Primary Care Provider [phone] Lisa Wright PA-C Unavailable [phone] Chanel Asher BRENTC Unavailable Norm Wrightkendall Moore PA-C Unavailable [phone] Encounter Details Date Type Department Care Team (Late st Contact Info) Description 02/16/2019 MyC Medical Advice [facility] [address] [facility] [address] [place] [address] Jacob Carmona MD [address] [place] [address] Social History Tobacco Use Types [...] PM CDT Legal Sex Female 3:18 AM NEWSPAPER STUFFER Gender Identity Female 03/25/2021 2:01 PM CDT Sexual Orientation Straight 03/25/2021 2: 01 PM CDT 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 Not on file [...] Out C-difficile 09/10/2022 09/10/2022 023 5:27 PM NEWSPAPER STUFFER C-difficile 09/10/2022 09/10/2022 10/10/2022 11:3 9 PM CDT Assessment Noted Time PHQ-9 Depression Total Score: 3 12/08/19 19 7:05 AM CDT documented as of this encounter Care Teams Hyperion Administrator Relationship Specialty Start Date End Date Annalisa Mark APRN PAPER WOOD CUTTER PCP - General Nurse Practitioner 03/22/15 06/29/22 Jacob Carmona MD [address] [place] [address] PCP - General 06/30/22 08/28/22 [facility] [address] [place] [address] PCP - General 08/29/22 01/18/23 Lisa Wright PA-C [address] [place] [phone] PCP - General Family Medicine 01/19/23 Annalisa Mark APRN PAPER WOOD CUTTER Assigned PCP 06/06/18 07/02/19 Mukul Rivas PA-C [address] [place] [address] [place] [phone] Assigned PCP 07/03/19 11/19/19 Annalisa Mark APRN PAPER WOOD CUTTER Assigned PCP 11/20/19 12/10/19 Mukul Rivas PA-C [address] [place] [address] [id number] Assigned PCP 12/11/19 01/21/20 Annalisa Mark APRN PAPER WOOD CUTTER Assigned PCP 01/22/20 02/21/22 Jacob Carmona MD [address] [place] [address] Assigned OBGYN Provider 05/18/20 Leonor Burgos MD [place] [address] [place] [address] Assigned PCP 02/22/22 05/16/22 Annalisa Mark APRN PAPER WOOD CUTTER Assigned PCP 05/17/22 08/15/22 Leonor Burgos MD AR[place] [address] [place] [address] Assigned PCP 08/16/22 08/29/22 Annalisa Mark APRN PAPER WOOD CUTTER [address] [place] [address] Assigned PCP 08/30/22 11/21/22 Curtis Núñez MD 420 [facility] 276 [place] [address] Assigned Pulmonology Provider 09/13/22 05/17/24 Leonor Burgos MD [place] 7447 [facility] [address] [place] [address] Assigned PCP 11/22/22 11/28/22 Annalisa Mark APRN PAPER WOOD CUTTER Assigned PCP 11/29/22 01/23/23 Lisa Wright PA-C [address] [place] [phone] Assigned PCP 01/24/23 04/17/24 Chanel Asher PA-C 6565 [facility] [address] [place] [address] Assigned PCP 04/18/24 06/17/24 Lisa Wright PA-C [address] [place] [phone] Assigned PCP 06/18/24 documented as of this encounter
--- OUTSIDE RECORDS SUMMARY | 2024-09-19 03:09 | XMS_ITS | Encounter Summary ---
Author Organization [place] Address [address] [place] [address]. [place] [address] Care Team Providers Care Product Safety Specialist Name Role Phone Annalisa Mark APRN, CNP Primary Care Provi miguel Unavailable Annalisa Mark APRN, CNP Unavailable Un available Jacob Carmona MD Unavailable [phone] Leonor Burgos MD Unavailable + Annalisa Mark APRN, CNP Unavailable Un available SabJacob sylvester MD Primary Care Provider Leonor Burgos MD Unavailable + [facility] Primary Care Provider Annalisa Mark APRN, CNP Unavailable Un available Curtis Núñez MD Unavailable Leonor Burgos MD Unavailable + Annalisa Mark APRN, CNP Unavailable Un available Lisa Wright PA-C Primary Care Provider Lisa Wright PA-C Unavailable [phone] Chanel Asher PA-C Unavailable Lisa Wright PA-C Unavailable [phone] Encounter Details Date Type Department Care Team (Late st Contact Info) Description 11/07/2020 MyC Medical Advice [facility] [address] [facility] [address] [place] [address] Jacob Carmona MD [address] [place] [address] Social History Tobacco Use Types [...] 02/15/2019 Lack of Transportation (Non-Medical) No 02/15/2019 [place] Depression Scale Answer Date Recorded [place] Depression Score 2 09/21/2019 Last EPDS Self [...] CDT Legal Sex Female 3:18 AM MANAGER PATHOLOGY Gender Identity Female 03/25/2021 2:01 PM CDT Sexual Orientation Straight 03/25/2021 2: 01 PM CDT 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 Not on file [...] C-difficile 09/10/2022 09/10/2022 023 5:27 PM MANAGER PATHOLOGY C-difficile 09/10/2022 09/10/2022 10/10/2022 11:3 9 PM CDT Assessment Noted Time PHQ-9 Depression Total Score: 2 12/08/19 20 7:04 AM CDT documented as of this encounter Care Teams Product Safety Specialist Relationship Specialty Start Date End Date Annalisa Mark APRN TEXTILE CUTTING 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 PCP - General Nurse Practitioner 03/22/15 06/29/22 Jacob Carmona MD [address] [place] [address] PCP - General 06/30/22 08/28/22 [facility] [address] [place] [address] PCP - General 08/29/22 01/18/23 Lisa Wright PA-C [address] [place] [phone] PCP - General Family Medicine 01/19/23 Annalisa Mark APRN TEXTILE CUTTING 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 Assigned PCP 01/22/20 02/21/22 Jacob Carmona MD [address] [place] [address] Assigned OBGYN Provider 05/18/20 Leonor Burgos MD [place] [address] [place] [address] Assigned PCP 02/22/22 05/16/22 Annalisa Mark APRN TEXTILE CUTTING 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 Assigned PCP 05/17/22 08/15/22 Leonor Burgos MD [place] [address] [place] [address] Assigned PCP 08/16/22 08/29/22 Annalisa Mark APRN TEXTILE CUTTING 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 [address] [place] [address] Assigned PCP 08/30/22 11/21/22 Curtis Núñez MD 420 [facility] 276 [place] [address] Assigned Pulmonology Provider 09/13/22 05/17/24 Leonor Burgos MD [place] [address] [place] [address] Assigned PCP 11/22/22 11/28/22 Annalisa Mark APRN TEXTILE CUTTING 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 Assigned PCP 11/29/22 01/23/23 Lisa Wright PA-C [address] [place] [phone] Assigned PCP 01/24/23 04/17/24 Chanel Asher PA-C [address] [facility] [address] [address] Assigned PCP 04/18/24 06/17/24 Lisa Wright PA-C [address] [place] [phone] Assigned PCP 06/18/24 documented as of this encounter
--- OUTSIDE RECORDS SUMMARY | 2024-09-19 03:10 | XMS_ITS | Encounter Summary ---
Author Organization [place] Address [address] [place] [address]. [place] [address] Care Team Providers Care Health Informatics Advisor Name Role Phone Annalisa Mark APRN, CNP Primary Care Provi miguel Unavailable Annalisa Mark APRN, CNP Unavailable Un available Jacob Carmona MD Unavailable [phone] Leonor Burgos MD Unavailable + Annalisa Mark APRN, CNP Unavailable Un available SabJacob sylvester MD Primary Care Provider Leonor Burgos MD Unavailable + [facility] Primary Care Provider Annalisa Mark APRN, CNP Unavailable Un available Curtis Núñez MD Unavailable Leonor Burgos MD Unavailable + Annalisa Mark APRN, CNP Unavailable Un available Lisa Wright PA-C Primary Care Provider Lisa Wright PA-C Unavailable [phone] Chanel Asher PA-C Unavailable [phone] Lisa Wright ABILIO-C Unavailable [phone] Reason for Visit * Reason Onset Date Comments MyChart Communication 11/15/2020 OCP questi ons Encounter Details Date Type Department Care Team (Late st Contact Info) Description 11/15/2020 MyC Medical Advice [facility] [address] [facility] [address] [place] [address] Jacob Carmona MD [address] [place] [address] MyChart Communication (OCP questions) Social History Tobacco [...] 02/15/2019 Lack of Transportation (Non-Medical) No 02/15/2019 [place] Depression Scale Answer Date Recorded [place] Depression Score 2 09/21/2019 Last EPDS Self Harm Result Not on file 09/21 Education Answer Date Recorded What is the highest level of school you have completed or the highest degree you have received? 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 Not on file Not on [...] Out C-difficile 09/10/2022 09/10/2022 023 5:27 PM PROJ ENGINEER C-difficile 09/10/2022 09/10/2022 10/10/2022 11:3 9 PM CDT Assessment Noted Time PHQ-9 Depression Total Score: 2 11/15/19 7:03 AM CDT documented as of this encounter Care Teams Health Informatics Advisor Relationship Specialty Start Date End Date Annalisa Mark APRN FIRE PREVENTION RESEARCH ENGINEER PCP - General Nurse Practitioner 03/22/15 06/29/22 Jacob Carmona MD [address] [place] [address] PCP - General 06/30/22 08/28/22 [facility] [address] [place] [address] PCP - General 08/29/22 01/18/23 Lisa Wright PA-C [address] [facility] [place] [phone] PCP - General Family Medicine 01/19/23 Annalisa Mark APRN FIRE PREVENTION RESEARCH ENGINEER Assigned PCP 01/22/20 02/21/22 Jacob Carmona MD [address] [place] [address] Assigned OBGYN Provider 05/18/20 Leonor Burgos MD [place] [address] [place] [address] Assigned PCP 02/22/22 05/16/22 Annalisa Mark APRN FIRE PREVENTION RESEARCH ENGINEER Assigned PCP 05/17/22 08/15/22 Leonor Burgos MD AR[place] [address] [place] [address] Assigned PCP 08/16/22 08/29/22 Annalisa Mark APRN FIRE PREVENTION RESEARCH ENGINEER [address] [facility] [place] [address] Assigned PCP 08/30/22 11/21/22 Curtis Núñez MD 420 [facility] 276 [place], [place] [address] Assigned Pulmonology Provider 09/13/22 05/17/24 Leonor Burgos MD [place] 7447 [facility] 207 [place], [place] [address] Assigned PCP 11/22/22 11/28/22 Annalisa Mark APRN FIRE PREVENTION RESEARCH ENGINEER Assigned PCP 11/29/22 01/23/23 Lisa Wright PA-C [address] [place] [phone] Assigned PCP 01/24/23 04/17/24 Chanel Asher PA-C 6565 [facility] 200 [place], [place] [address] Assigned PCP 04/18/24 06/17/24 Lisa Wright PA-C [address] [place] [phone] Assigned PCP 06/18/24 documented as of this encounter
--- OUTSIDE RECORDS SUMMARY | 2024-09-19 03:10 | XMS_ITS | Encounter Summary ---
Author Organization [facility] Address [address] [place] [address]. [place] [address] Care Team Providers Care Film Historian Name Role Phone Annalisa Mark APRN, CNP Primary Care Provi miguel Unavailable Leonor Burgos MD Unavailable + Deedee, Annalisa Peacock APRN, CNP Unavailable Un available DeedeeAnnalisa dean APRN, CNP Unavailable Un available Mukul Rivas PA-C Unavailable + [phone] DeedeeAnnalisa APRN, CNP Unavailable Un available Mukul Rivas PA-C Unavailable [phone] Deedee, Annalisa Peacock APRN, CNP Unavailable Un available Jacob Carmona MD Unavailable + [phone] Leonor Burgos MD Unavailable + DeedeeAnnalisa dean APRN, CNP Unavailable Un available Jacob Carmona MD Primary Care Provider Leonor Burgos MD Unavailable + [facility] Primary Care Provider DeedeeAnnalisa dean APRN, CNP Unavailable Un available Curtis Núñez MD Unavailable Leonor Burgos MD Unavailable + Annalisa Mark APRN SILVERER Unavailable Un available Lisa Wright Teresa PA-C Primary Care Provider Angelica Wrighttana Moore PA-C Unavailable [phone] Lb Chanel Nicolle PA-C Unavailable [phone] Lisa Wright Teresa PA-C Unavailable [phone] Encounter Details Date Type Department Care Team (Late st Contact Info) Description 05/19/2016 MyC Medical Advice [address] [address] Pete Martin MD NO INFO AVAILABLE 02/17/23 Social History Tobacco Use Types Packs/Day Years Used Date Smoking Tobacco: Never Smokeless Tobacco: Never Alcohol Use Standard Drinks/Week Comments Yes 0 (1 standard drink = 0.6 oz pur e alcohol) Occaisional Comments Yes Sex and Gender Information Value Date Recorded Sex Assigned at Female 03/25/2021 2:01 PM CDT Legal Sex Female 3:18 AM BAKERY DELIVERER Gender Identity Female 03/25/2021 2:01 PM CDT [...] Out C-difficile 09/10/2022 09/10/2022 023 5:27 PM BAKERY DELIVERER C-difficile 09/10/2022 09/10/2022 10/10/2022 11:3 9 PM CDT Assessment Noted Time PHQ-9 Depression Total Score: 5 04/22/20 16 7:19 AM CDT documented as of this encounter Care Teams Film Historian Relationship Specialty Start Date End Date Annalisa Mark APRN SILVERER PCP - General Nurse Practitioner 03/22/15 06/29/22 Leonor Burgos MD [place] [address] [place] [address] PCP - Assigned PCP 12/13/17 06/05/18 Annalisa Mark APRN SILVERER PCP - Assigned PCP 06/06/18 09/28/18 Jacob Carmona MD [address] [place] [address] PCP - General 06/30/22 08/28/22 [facility] [address] [place], [place] [phone] PCP - General 08/29/22 01/18/23 Lisa Wright PA-C [address] [place] [address] PCP - General Family Medicine 01/19/23 Annalisa Mark APRN SILVERER Assigned PCP 06/06/18 07/02/19 Mukul Rivas PA-C [address] [place] [address] Assigned PCP 07/03/19 11/19/19 Annalisa Mark APRN SILVERER Assigned PCP 11/20/19 12/10/19 Mukul Rivas PA-C [address] [place] [address] [id number] Assigned PCP 12/11/19 01/21/20 Annalisa Mark APRN SILVERER Assigned PCP 01/22/20 02/21/22 Jacob Carmona MD [address] [place] [address] Assigned OBGYN Provider 05/18/20 Leonor Burgos MD ARISE [address] [place] [address] Assigned PCP 02/22/22 05/16/22 Annalisa Mark APRN SILVERER Assigned PCP 05/17/22 08/15/22 Leonor Burgos MD ARISE [address] [place] [address] Assigned PCP 08/16/22 08/29/22 Annalisa Mark APRN SILVERER [address] [place] [address] Assigned PCP 08/30/22 11/21/22 Curtis Núñez MD 420 [facility] 276 [place], [place] [address] Assigned Pulmonology Provider 09/13/22 05/17/24 Leonor Burgos MD ARISE [address] [place], [place] [address] Assigned PCP 11/22/22 11/28/22 Annalisa Mark APRN [facility] Assigned PCP 11/29/22 01/23/23 Lisa Wright PA-C [address] [facility] [place] [phone] Assigned PCP 01/24/23 04/17/24 Chanel Asher PA-C 6565 [facility] [address] [place] [address] Assigned PCP 04/18/24 06/17/24 Lisa Wright PA-C [address] [facility] [place] [address] Assigned PCP 06/18/24 documented as of this encounter
--- OUTSIDE RECORDS SUMMARY | 2024-09-19 03:10 | XMS_ITS | Encounter Summary ---
Author Organization [facility] Address [address] [place] [address]. [place] [address] Care Team Providers Care Liver Trimmer Name Role Phone Annalisa Mark APRN, CNP Primary Care Provi miguel Unavailable Leonor Burgos MD Unavailable + Deedee, Annalisa Peacock APRN, CNP Unavailable Un available DeedeeAnnalisa dean APRN, CNP Unavailable Un available Mukul Rivas PA-C Unavailable + [phone] DeedeeAnnalisa APRN, CNP Unavailable Un available Mukul Rivas PA-C Unavailable [phone] Deedee, Annalisa Peacock APRN, CNP Unavailable Un available Jacob Carmona MD Unavailable + [phone] Leonor Burgos MD Unavailable + DeedeeAnnailsa dean APRN, CNP Unavailable Un available Jacob Carmona MD Primary Care Provider Leonor Burgos MD Unavailable + [facility] Primary Care Provider DeedeeAnnalisa dean APRN, CNP Unavailable Un available Curtis Núñez MD Unavailable Leonor Burgos MD Unavailable + Deedee Annalisa Madonna STANLEY FACILITIES PLANT ENGINEER Unavailable Un available Lisa Wright Teresa PA-C Primary Care Provider [phone] Lisa Wright Teresa PA-C Unavailable [phone] Chanel Asher Nicolle PA-C Unavailable Lisa Wright Teresa PA-C Unavailable [phone] Encounter Details Date Type Department Care Team (Late st Contact Info) Description 05/19/2016 [facility] [address] [address] Pete Martin MD NO INFO AVAILABLE 02/17/23 Social History Tobacco Use Types Packs/Day Years Used Date Smoking Tobacco: Never Smokeless Tobacco: Never Alcohol Use Standard Drinks/Week Comments Yes 0 (1 standard drink = 0.6 oz pur e alcohol) Occaisional Comments Yes Sex and Gender Information Value Date Recorded Sex Assigned at Female 03/25/2021 2:01 PM CDT Legal Sex Female 3:18 AM FLOORWALKER Gender Identity Female 03/25/2021 2:01 PM CDT Sexual Orientation Straight 03/25/2021 2: 01 PM CDT documented as of this encounter Miscellaneous Notes * Telephone Encounter - Pete Martin - 05/20/2016 6:29 PM CDT See Mychart message * Telephone Encounter - Debbie Verdugo RN - 05/19/2016 9:49 AM CDT - Please see message's below about the Zika virus and advise. Nancy. Andreas Verdugo RN * Telephone Encounter - [...] Out C-difficile 09/10/2022 09/10/2022 023 5:27 PM FLOORWALKER C-difficile 09/10/2022 09/10/2022 10/10/2022 11:3 9 PM CDT Assessment Noted Time PHQ-9 Depression Total Score: 5 04/22/20 16 7:19 AM CDT documented as of this encounter Care Teams Liver Trimmer Relationship Specialty Start Date End Date Annalisa Mark APRN FACILITIES PLANT ENGINEER PCP - General Nurse Practitioner 03/22/15 06/29/22 Leonor Burgos MD [facility] [address] [place] [address] PCP - Assigned PCP 12/13/17 06/05/18 Annalisa Mark APRN FACILITIES PLANT ENGINEER PCP - Assigned PCP 06/06/18 09/28/18 Jacob Carmona MD [facility] [place] [address] PCP - General 06/30/22 08/28/22 [facility] - [address] [address] PCP - General 08/29/22 01/18/23 Lisa Wright PA-C [address] [place] [address] PCP - General Family Medicine 01/19/23 Deedee, Annalisa Peacock APRN FACILITIES PLANT ENGINEER Assigned PCP 06/06/18 07/02/19 Mukul Rivas PA-C [address] [place] [address] [phone] Assigned PCP 07/03/19 11/19/19 Annalisa Mark APRN FACILITIES PLANT ENGINEER Assigned PCP 11/20/19 12/10/19 Mukul Rivas PA-C [address] [place] [address] Assigned PCP 12/11/19 01/21/20 Annalisa Mark APRN FACILITIES PLANT ENGINEER Assigned PCP 01/22/20 02/21/22 Jacob Carmona MD [address] [place] [address] Assigned OBGYN Provider 05/18/20 Leonor Burgos MD [facility] [address] [address] Assigned PCP 02/22/22 05/16/22 Annalisa Mark APRN FACILITIES PLANT ENGINEER Assigned PCP 05/17/22 08/15/22 Leonor Burgos, MD [facility] [address] [place] [address] Assigned PCP 08/16/22 08/29/22 Annalisa Mark APRN FACILITIES PLANT ENGINEER [address] [facility] [place] [address] Assigned PCP 08/30/22 11/21/22 Curtis Núñez MD [address] [place] [address] 276 [place] [address] Assigned Pulmonology Provider 09/13/22 05/17/24 Leonor Burgos MD [facility] [address] [employer] [address] [place] [address] Assigned PCP 11/22/22 11/28/22 Annalisa Mark APRN FACILITIES PLANT ENGINEER Assigned PCP 11/29/22 01/23/23 Lisa Wright PA-C [address] [facility] [address] Assigned PCP 01/24/23 04/17/24 Chanel Asher PA-C [address] [place] [address] Assigned PCP 04/18/24 06/17/24 Lisa Wright PA-C [address] [facility] [address] Assigned PCP 06/18/24 documented as of this encounter
--- OUTSIDE RECORDS SUMMARY | 2024-09-19 03:10 | XMS_ITS | Encounter Summary ---
Author Organization [facility] Address [address] [place] [address]. [place] [address] Care Team Providers Care Trailer Park Manager Name Role Phone Annalisa Mrak APRN, CNP Primary Care Provi miguel Unavailable Leonor Burgos MD Unavailable + Deedee, Annalisa Peacock APRN, CNP Unavailable Un available DeedeeAnnalisa dean APRN, CNP Unavailable Un available Mukul Rivas PA-C Unavailable + [phone] DeedeeAnnalisa APRN, CNP Unavailable Un available Mukul Rivas PA-C Unavailable [phone] Deedee, Annalisa Peacock APRN, CNP Unavailable Un available Jacob Carmona MD Unavailable + [phone] Leonor Burgos MD Unavailable + DeedeeAnnalisa dean APRN, CNP Unavailable Un available Jacob Carmona MD Primary Care Provider Leonor Burgos MD Unavailable + [facility] Primary Care Provider DeedeeAnnalisa dean APRN, CNP Unavailable Un available Curtis Núñez MD Unavailable Leonor Burgos MD Unavailable + Annalisa Mark APRN FILM OR TAPE LIBRARIAN Unavailable Un available Lisa Wright Teresa PA-C Primary Care Provider [phone] Norm Wrightkendall Moore PA-C Unavailable [phone] Lb Chanel Nicolle PA-C Unavailable Lisa Wright Teresa PA-C Unavailable [phone] Encounter Details Date Type Department Care Team (Late st Contact Info) Description 09/09/2016 [facility] Medical Advice [address] [address] Pete Martin MD NO INFO AVAILABLE 02/17/23 Social History Tobacco Use Types Packs/Day Years Used Date Smoking Tobacco: Never Smokeless Tobacco: Never Alcohol Use Standard Drinks/Week Comments No 0 (1 standard drink = 0.6 oz pur e alcohol) Occaisional Comments Yes Sex and Gender Information Value Date Recorded Sex Assigned at Female 03/25/2021 2:01 PM CDT Legal Sex Female 3:18 AM TECHNICIAN TELECOMMUNICATION SYSTEMS Gender Identity Female 03/25/2021 2:01 PM CDT [...] Out C-difficile 09/10/2022 09/10/2022 023 5:27 PM TECHNICIAN TELECOMMUNICATION SYSTEMS C-difficile 09/10/2022 09/10/2022 10/10/2022 11:3 9 PM CDT Assessment Noted Time PHQ-9 Depression Total Score: 5 04/22/20 16 7:19 AM CDT documented as of this encounter Care Teams Trailer Park Manager Relationship Specialty Start Date End Date Annalisa Mark APRN FILM OR TAPE LIBRARIAN PCP - General Nurse Practitioner 03/22/15 06/29/22 Leonor Burgos MD [facility] [address] [place] [address] PCP - Assigned PCP 12/13/17 06/05/18 Annalisa Mark APRN FILM OR TAPE LIBRARIAN PCP - Assigned PCP 06/06/18 09/28/18 Jacob Carmona MD [address] [place] [address] PCP - General 06/30/22 08/28/22 [facility] [address] [place], [place] [phone] PCP - General 08/29/22 01/18/23 Lisa Wright PA-C [address] [place] [address] PCP - General Family Medicine 01/19/23 Annalisa Mark APRN FILM OR TAPE LIBRARIAN Assigned PCP 06/06/18 07/02/19 Mukul Rivas PA-C [address] [place] [address] Assigned PCP 07/03/19 11/19/19 Annalisa Mark APRN FILM OR TAPE LIBRARIAN Assigned PCP 11/20/19 12/10/19 Mukul Rivas PA-C [address] [place] [phone] Assigned PCP 12/11/19 01/21/20 Annalisa Mark APRN FILM OR TAPE LIBRARIAN Assigned PCP 01/22/20 02/21/22 Jacob Carmona MD [address] [place] [address] Assigned OBGYN Provider 05/18/20 Leonor Burgos MD [facility] [address] [employer] [address] [place] [address] Assigned PCP 02/22/22 05/16/22 Annalisa Mark APRN FILM OR TAPE LIBRARIAN Assigned PCP 05/17/22 08/15/22 Leonor Burgos MD [facility] [address] [employer] [address] [place] [address] Assigned PCP 08/16/22 08/29/22 Annalisa Mark APRN FILM OR TAPE LIBRARIAN [address] [place] [address] Assigned PCP 08/30/22 11/21/22 Curtis Núñez MD 420 [facility] [address] [place], [place] [address] Assigned Pulmonology Provider 09/13/22 05/17/24 Leonor Burgos MD [facility] [address] [employer] [address] [place], [place] [address] Assigned PCP 11/22/22 11/28/22 Annalisa Mark APRN [facility] Assigned PCP 11/29/22 01/23/23 Lisa Wright PA-C [address] [facility] [phone] Assigned PCP 01/24/23 04/17/24 Chanel Asher PA-C [address] [facility] [address] [place] [address] Assigned PCP 04/18/24 06/17/24 Lisa Wright PA-C [address] [facility] [address] Assigned PCP 06/18/24 documented as of this encounter
--- OUTSIDE RECORDS SUMMARY | 2024-09-19 03:10 | XMS_ITS | Encounter Summary ---
Author Organization [facility] Address [address] [place] [address]. [place] [address] Care Team Providers Care Bar Steward Name Role Phone Annalisa Mark APRN, CNP Primary Care Provi miguel Unavailable Leonor Burgos MD Unavailable + Deedee, Annalisa Peacock APRN, CNP Unavailable Un available DeedeeAnnalisa dean APRN, CNP Unavailable Un available Mukul Rivas PA-C Unavailable + [phone] DeedeeAnnalisa APRN, CNP Unavailable Un available Mukul Rivas PA-C Unavailable [phone] Deedee, Annalisa Peacock APRN, CNP Unavailable Un available Jacob Carmona MD Unavailable + [phone] Leonor Burgos MD Unavailable + DeedeeAnnalisa dean APRN, CNP Unavailable Un available Jacob Carmona MD Primary Care Provider Leonor Burgos MD Unavailable + [facility] Primary Care Provider DeedeeAnnalisa dean APRN, CNP Unavailable Un available Curtis Núñez MD Unavailable Leonor Burgos MD Unavailable + Annalisa Mark APRN DIRECTOR OF ACADEMIC SUPPORT Unavailable Un available Lisa Wright Teresa PA-C Primary Care Provider Norm Wrightkendall Moore PA-C Unavailable [phone] Lb Chanel Nicolle PA-C Unavailable Lisa Wright Teresa PA-C Unavailable [phone] Encounter Details Date Type Department Care Team (Late st Contact Info) Description 06/11/2016 My[facility] Medical Advice [address] [address] Pete Martin MD NO INFO AVAILABLE 02/17/23 Social History Tobacco Use Types Packs/Day Years Used Date Smoking Tobacco: Never Smokeless Tobacco: Never Alcohol Use Standard Drinks/Week Comments Yes 0 (1 standard drink = 0.6 oz pur e alcohol) Occaisional Comments Yes Sex and Gender Information Value Date Recorded Sex Assigned at Female 03/25/2021 2:01 PM CDT Legal Sex Female 3:18 AM SOCIAL SCIENCES 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 CHAIR Gender Identity Female 03/25/2021 2:01 PM CDT [...] Out C-difficile 09/10/2022 09/10/2022 023 5:27 PM SOCIAL SCIENCES DEPARTMENT CHAIR C-difficile 09/10/2022 09/10/2022 10/10/2022 11:3 9 PM CDT Assessment Noted Time PHQ-9 Depression Total Score: 5 04/22/20 16 7:19 AM CDT documented as of this encounter Care Teams Bar Steward Relationship Specialty Start Date End Date Annalisa Mark APRN DIRECTOR OF ACADEMIC SUPPORT PCP - General Nurse Practitioner 03/22/15 06/29/22 Leonor Burgos MD [facility] [address] [place] [address] PCP - Assigned PCP 12/13/17 06/05/18 Annalisa Mark APRN DIRECTOR OF ACADEMIC SUPPORT PCP - Assigned PCP 06/06/18 09/28/18 Jacob Carmona MD [address] [place] [address] PCP - General 06/30/22 08/28/22 [facility] [address] [place], [place] [phone] PCP - General 08/29/22 01/18/23 Lisa Wright PA-C [address] [place] [address] PCP - General Family Medicine 01/19/23 Annalisa Mark APRN DIRECTOR OF ACADEMIC SUPPORT Assigned PCP 06/06/18 07/02/19 Mukul Rivas PA-C [address] [place] [address] Assigned PCP 07/03/19 11/19/19 Annalisa Mark APRN DIRECTOR OF ACADEMIC SUPPORT Assigned PCP 11/20/19 12/10/19 Mukul Rivas PA-C [address] [place] [id number] Assigned PCP 12/11/19 01/21/20 Annalisa Mark APRN DIRECTOR OF ACADEMIC SUPPORT Assigned PCP 01/22/20 02/21/22 Jacob Carmona MD [address] [place] [address] Assigned OBGYN Provider 05/18/20 Leonor Burgos MD [facility] [address] [employer] [address] [place] [address] Assigned PCP 02/22/22 05/16/22 Annalisa Mark APRN DIRECTOR OF ACADEMIC SUPPORT Assigned PCP 05/17/22 08/15/22 Leonor Burgos MD [facility] [address] [employer] [address] [place] [address] Assigned PCP 08/16/22 08/29/22 Annalisa Mark APRN DIRECTOR OF ACADEMIC SUPPORT [address] [place] [address] Assigned PCP 08/30/22 11/21/22 Curtis Núñez MD 420 [facility] 276 [place], [place] [address] Assigned Pulmonology Provider 09/13/22 05/17/24 Leonor Burgos MD [facility] [address] [employer] [address] [place], [place] [address] Assigned PCP 11/22/22 11/28/22 Annalisa Mark APRN [facility] Assigned PCP 11/29/22 01/23/23 Lisa Wright PA-C [address] [place] [address] Assigned PCP 01/24/23 04/17/24 Chanel Asher PA-C [address] [facility] [address] [place] [address] Assigned PCP 04/18/24 06/17/24 Lisa Wright PA-C [address] [place] [address] Assigned PCP 06/18/24 documented as of this encounter
--- OUTSIDE RECORDS SUMMARY | 2024-09-19 03:10 | XMS_ITS | Encounter Summary ---
Author Organization [facility] Address [address] [place] [address]. [place] [address] Care Team Providers Care Doweling Machine Operator Name Role Phone Annalisa Mark APRN, CNP Primary Care Provi miguel Unavailable Annalisa Mark APRN, CNP Unavailable Un available Jacob Carmona MD Unavailable Leonor Burgos MD Unavailable + Annalisa Mark APRN, CNP Unavailable Un available SabJacob sylvester MD Primary Care Provider Leonor Burgos MD Unavailable + [facility] Primary Care Provider Annalisa Mark APRN, CNP Unavailable Un available Curtis Núñez MD Unavailable Leonor Burgos MD Unavailable + Annalisa Mark APRN, CNP Unavailable Un available Lisa Wright PA-C Primary Care Provider Lisa Wright PA-C Unavailable [phone] Chanel Asher PA-C Unavailable [phone] Lisa Wright PA-C Unavailable [phone] Reason for Visit * Reason Onset Date Comments MyChart Communication 12/27/2020 Encounter Details Date Type Department Care Team (Latest Contact Info) Description 12/27/2020 MyC Medical Advice M [address] [address] Leonor Burgos MD [facility] [address] [phone] MyChart Communication Social History Tobacco Use Types [...] 02/15/2019 Lack of Transportation (Non-Medical) No 02/15/2019 [place] Depression Scale Answer Date Recorded [place] Depression Score 2 09/21/2019 Last EPDS Self Harm Result Not on file 09/21 Education Answer Date Recorded What is the highest level of school you have completed or the highest degree you have received? 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 Not on file Not on file [...] Out C-difficile 09/10/2022 09/10/2022 023 5:27 PM INCIDENT HANDLER C-difficile 09/10/2022 09/10/2022 10/10/2022 11:3 9 PM CDT Assessment Noted Time PHQ-9 Depression Total Score: 2 11/15/19 7:03 AM CDT documented as of this encounter Care Teams Doweling Machine Operator Relationship Specialty Start Date End Date Annalisa Mark APRN CNP PCP - General Nurse Practitioner 03/22/15 06/29/22 Jacob Carmona MD [address] [place] [address] PCP - General 06/30/22 08/28/22 [facility] [address] [place] [address] PCP - General 08/29/22 01/18/23 Lisa Wright PA-C [address] [place] [phone] PCP - General Family Medicine 01/19/23 Annalisa Mark APRN ON AIR DIRECTOR Assigned PCP 01/22/20 02/21/22 Jacob Carmona MD [facility] [place] [address] Assigned OBGYN Provider 05/18/20 Leonor Burgos MD [facility] [address] [employer] [address] [place] [address] Assigned PCP 02/22/22 05/16/22 Annalisa Mark APRN ON AIR DIRECTOR Assigned PCP 05/17/22 08/15/22 Leonor Burgos MD [facility] [address] [employer] [address] [place] [address] Assigned PCP 08/16/22 08/29/22 Annalisa Mark APRN ON AIR DIRECTOR [address] [place] [address] Assigned PCP 08/30/22 11/21/22 Curtis Núñez MD 420 [facility] 276 [place] [address] Assigned Pulmonology Provider 09/13/22 05/17/24 Leonor Burgos MD [facility] [address] [employer] [address] [place] [address] Assigned PCP 11/22/22 11/28/22 Annalisa Mark APRN ON AIR DIRECTOR Assigned PCP 11/29/22 01/23/23 Lisa Wright PA-C [address] [facility] [place] [address] Assigned PCP 01/24/23 04/17/24 Chanel Asher PA-C 6565 [facility] 200 [place] [address] Assigned PCP 04/18/24 06/17/24 Lisa Wright PA-C [address] [facility] [place] [address] Assigned PCP 06/18/24 documented as of this encounter
--- OUTSIDE RECORDS SUMMARY | 2024-09-19 03:10 | XMS_ITS | Encounter Summary ---
Author Organization [facility] Address [address] [place] [address]. [place] [address] Care Team Providers Care Sole Stitcher Hand Name Role Phone Annalisa Mark APRN, CNP Primary Care Provi miguel Unavailable Leonor Burgos MD Unavailable + Deedee, Annalisa Peacock APRN, CNP Unavailable Un available DeedeeAnnalisa dean APRN, CNP Unavailable Un available Mukul Rivas PA-C Unavailable + [phone] DeedeeAnnalisa APRN, CNP Unavailable Un available Mukul Rivas PA-C Unavailable [phone] Deedee, Annalisa Peacock APRN, CNP Unavailable Un available Jacob Carmona MD Unavailable + [phone] Leonor Burgos MD Unavailable + DeedeeAnnalisa dean APRN, CNP Unavailable Un available Jacob Carmona MD Primary Care Provider Leonor Burgos MD Unavailable + [facility] Primary Care Provider DeedeeAnnalisa dean APRN, CNP Unavailable Un available Curtis Núñez MD Unavailable Leonor Burgos MD Unavailable + Deedee Annalisaarnulfo Peacock APRN FACTORY LAY OUT ENGINEER Unavailable Un available Lisa Wright Teresa PA-C Primary Care Provider Lisa Wright Teresa PA-C Unavailable [phone] Chanel Asher Nicolle PA-C Unavailable [phone] Lisa Wright Teresa PA-C Unavailable [phone] Reason for Visit * Reason Onset Date Comments Care 10/17/2016 question about k ennel cough Encounter Details Date Type Department Care Team (Late st Contact Info) Description 10/17/2016 [facility] [address] [place] [address] Pete Martin MD NO INFO [...] PM CDT Legal Sex Female 3:18 AM YARD MOTOR OPERATOR Gender Identity Female 03/25/2021 2:01 PM CDT Sexual Orientation Straight 03/25/2021 2: 01 PM CDT documented as of this encounter Miscellaneous Notes * Telephone Encounter - Casie Santos RN - 10/20/2016 8:[address] Martin, Please see Saisei message. Casie Santos, RHarris. documented in this encounter Plan of Treatment [...] Out C-difficile 09/10/2022 09/10/2022 023 5:27 PM YARD MOTOR OPERATOR C-difficile 09/10/2022 09/10/2022 10/10/2022 11:3 9 PM CDT Assessment Noted Time PHQ-9 Depression Total Score: 5 04/22/20 16 7:19 AM CDT documented as of this encounter Care Teams Sole Stitcher Hand Relationship Specialty Start Date End Date Annalisa Mark APRN FACTORY LAY OUT ENGINEER PCP - General Nurse Practitioner 03/22/15 06/29/22 Leonor Burgos MD [facility] [address] [address] PCP - Assigned PCP 12/13/17 06/05/18 Annalisa Mark APRN FACTORY LAY OUT ENGINEER PCP - Assigned PCP 06/06/18 09/28/18 Jacob Carmona MD [address] [place] [address] PCP - General 06/30/22 08/28/22 [facility] [address] [place], [place] [phone] PCP - General 08/29/22 01/18/23 Lisa Wright PA-C [address] [place] [phone] PCP - General Family Medicine 01/19/23 Annalisa Mark APRN FACTORY LAY OUT ENGINEER Assigned PCP 06/06/18 07/02/19 Mukul Rivas PA-C [address] [place] [id number] Assigned PCP 07/03/19 11/19/19 Annalisa Mark APRN FACTORY LAY OUT ENGINEER Assigned PCP 11/20/19 12/10/19 Mukul Rivas PA-C [address] [place] [id number] Assigned PCP 12/11/19 01/21/20 Annalisa Mark APRN FACTORY LAY OUT ENGINEER Assigned PCP 01/22/20 02/21/22 Jacob Carmona MD [address] [place] [address] Assigned OBGYN Provider 05/18/20 Leonor Burgos MD [facility] [address] [employer] [address] [place] [address] Assigned PCP 02/22/22 05/16/22 Annalisa Mark APRN FACTORY LAY OUT ENGINEER Assigned PCP 05/17/22 08/15/22 Leonor Burgos MD [facility] [address] [employer] [address] [place] [address] Assigned PCP 08/16/22 08/29/22 Annalisa Mark APRN FACTORY LAY OUT ENGINEER [address] [place] [address] Assigned PCP 08/30/22 11/21/22 Curtis Núñez MD 420 [facility] 276 [place] [address] Assigned Pulmonology Provider 09/13/22 05/17/24 Leonor Burgos MD [facility] 7447 [facility] 207 [place] [address] Assigned PCP 11/22/22 11/28/22 Annalisa Mark APRN [facility] Assigned PCP 11/29/22 01/23/23 Lisa Wright PA-C [address] [place] [phone] Assigned PCP 01/24/23 04/17/24 Chanel Asher PA-C 6565 [facility] 200 [place], [place] [address] Assigned PCP 04/18/24 06/17/24 Lisa Wright PA-C [address] [place] [phone] Assigned PCP 06/18/24 documented as of this encounter
--- OUTSIDE RECORDS SUMMARY | 2024-09-19 03:10 | XMS_ITS | Encounter Summary ---
Author Organization [place] Address [address] [place] [address]. [place] [address] Care Team Providers Care Road Inspector Name Role Phone Annalisa Mark APRN, [...] Primary Care Provider Lisa Wright PA-C Unavailable [phone] Chanel Asher PA-C Unavailable Lisa Wright PA-C Unavailable [phone] Encounter Details Date Type Department Care Team (Late st Contact Info) Description 09/07/2020 MyC Medical Advice [facility] [address] [place] [phone] Jacob Carmona MD [address] [place] [address] Social History Tobacco Use Types Packs/Day Years [...] 02/15/2019 Lack of Transportation (Non-Medical) No 02/15/2019 [place] Depression Scale Answer Date Recorded [place] Depression Score 2 09/21/2019 Last EPDS Self Harm Result Not on file 09/21 Education Answer Date Recorded What is the highest level of school you have completed or the highest degree you have received? 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 Not on file [...] Out C-difficile 09/10/2022 09/10/2022 023 5:27 PM DEATH CLAIM CLERK C-difficile 09/10/2022 09/10/2022 10/10/2022 11:3 9 PM CDT Assessment Noted Time PHQ-9 Depression Total Score: 2 12/08/19 20 7:04 AM CDT documented as of this encounter Care Teams Road Inspector Relationship Specialty Start Date End Date Annalisa Mark APRN INSPECTOR RUBBER STAMP DIE PCP - General Nurse Practitioner 03/22/15 06/29/22 Jacob Carmona MD [address] [place] [address] PCP - General 06/30/22 08/28/22 [facility] [address] [place] [address] PCP - General 08/29/22 01/18/23 Lisa Wright PA-C [address] [place] [address] PCP - General Family Medicine 01/19/23 Annalisa Mark APRN INSPECTOR RUBBER STAMP DIE Assigned PCP 01/22/20 02/21/22 Jacob Carmona MD [address] [place] [address] Assigned OBGYN Provider 05/18/20 Leonor Burgos MD [place] [address] [place] [address] Assigned PCP 02/22/22 05/16/22 Annalisa Mark APRN INSPECTOR RUBBER STAMP DIE Assigned PCP 05/17/22 08/15/22 Leonor Burgos MD [place] [address] [place] [address] Assigned PCP 08/16/22 08/29/22 Annalisa Mark APRN INSPECTOR RUBBER STAMP DIE [address] [place] [address] Assigned PCP 08/30/22 11/21/22 Curtis Núñez MD [address] [place] [address] 276 [place] [address] Assigned Pulmonology Provider 09/13/22 05/17/24 Leonor Burgos MD [place] [address] [place] [address] Assigned PCP 11/22/22 11/28/22 Annalisa Mark APRN INSPECTOR RUBBER STAMP DIE Assigned PCP 11/29/22 01/23/23 Lisa Wright PA-C [address] [place] [phone] Assigned PCP 01/24/23 04/17/24 Chanel Asher PA-C [address] [facility] [address] [facility] 200 [place] [address] Assigned PCP 04/18/24 06/17/24 Lisa Wright PA-C [address] [place] [address] Assigned PCP 06/18/24 documented as of this encounter
--- OUTSIDE RECORDS SUMMARY | 2024-09-19 03:10 | XMS_ITS | Encounter Summary ---
Author Organization [place] Address [address] [place] [address]. [place] [address] Care Team Providers Care Analysis Director Name Role Phone Annalisa Mark APRN, CNP Primary Care Provi miguel Unavailable Leonro Burgos MD Unavailable + Deedee, Annalisa Peacock APRN, CNP Unavailable Un available DeedeeAnnalisa dean APRN, CNP Unavailable Un available Mukul Rivas PA-C Unavailable + [phone] DeedeeAnnalisa APRN, CNP Unavailable Un available Mukul Rivas PA-C Unavailable [phone] Deedee, Annalisa Peacock APRN, CNP Unavailable Un available Jacob Carmona MD Unavailable + [phone] Leonor Burgos MD Unavailable + DeedeeAnnalisa dean APRN, CNP Unavailable Un available Jacob Carmona MD Primary Care Provider Leonor Burgos MD Unavailable + [facility] Primary Care Provider DeedeeAnnalisa dean APRN, CNP Unavailable Un available Curtis Núñez MD Unavailable Leonor Burgos MD Unavailable + Annalisa Mark APRN PEN TENDER Unavailable Un available Lisa Wright Teresa PA-C Primary Care Provider Norm Wrightkendall Moore PA-C Unavailable [phone] Lb Chanel Nicolle PA-C Unavailable Lisa Wright Teresa PA-C Unavailable [phone] Encounter Details Date Type Department Care Team (Late st Contact Info) Description 07/18/2016 MyC Medical Advice [address] [address] Pete Martin MD NO INFO AVAILABLE 02/17/23 Social History Tobacco Use Types Packs/Day Years Used Date Smoking Tobacco: Never Smokeless Tobacco: Never Alcohol Use Standard Drinks/Week Comments Yes 0 (1 standard drink = 0.6 oz pur e alcohol) Occaisional Comments Yes Sex and Gender Information Value Date Recorded Sex Assigned at Female 03/25/2021 2:01 PM CDT Legal Sex Female 3:18 AM TRUCK CRANE OPERATOR Gender Identity Female 03/25/2021 2:01 PM [...] Out C-difficile 09/10/2022 09/10/2022 023 5:27 PM TRUCK CRANE OPERATOR C-difficile 09/10/2022 09/10/2022 10/10/2022 11:3 9 PM CDT Assessment Noted Time PHQ-9 Depression Total Score: 5 04/22/20 16 7:19 AM CDT documented as of this encounter Care Teams Analysis Director Relationship Specialty Start Date End Date Annalisa Mark APRN PEN TENDER PCP - General Nurse Practitioner 03/22/15 06/29/22 Leonor Burgos MD [place] [address] [place] [address] PCP - Assigned PCP 12/13/17 06/05/18 Annalisa Mark APRN PEN TENDER PCP - Assigned PCP 06/06/18 09/28/18 Jacob Carmona MD [address] [place] [address] PCP - General 06/30/22 08/28/22 [facility] [address] [place], [place] [phone] PCP - General 08/29/22 01/18/23 Lisa Wright PA-C [address] [place] [address] PCP - General Family Medicine 01/19/23 Annalisa Mark APRN PEN TENDER Assigned PCP 06/06/18 07/02/19 Mukul Rivas PA-C [address] [place] [address] Assigned PCP 07/03/19 11/19/19 Annalisa Mark APRN PEN TENDER Assigned PCP 11/20/19 12/10/19 Mukul Rivas PA-C [address] [place] [id number] Assigned PCP 12/11/19 01/21/20 Annalisa Mark APRN PEN TENDER Assigned PCP 01/22/20 02/21/22 Jacob Carmona MD 303 [place] [address] Assigned OBGYN Provider 05/18/20 Leonor Burgos MD [place] [address] [place] [address] Assigned PCP 02/22/22 05/16/22 Annalisa Mark APRN PEN TENDER Assigned PCP 05/17/22 08/15/22 Leonor Burgos MD [place] [address] [place] [address] Assigned PCP 08/16/22 08/29/22 Annalisa Mark APRN PEN TENDER [address] [place] [address] Assigned PCP 08/30/22 11/21/22 Curtis Núñez MD [address] [facility] 276 [place], [place] [address] Assigned Pulmonology Provider 09/13/22 05/17/24 Leonor Burgos MD [place] [address] [place], [place] [id number] Assigned PCP 11/22/22 11/28/22 Annalisa Mark APRN [facility] Assigned PCP 11/29/22 01/23/23 Lisa Wright PA-C [address] [place] [phone] Assigned PCP 01/24/23 04/17/24 Chanel Asher PA-C [address] [facility] [address] [place] [address] Assigned PCP 04/18/24 06/17/24 Lisa Wright PA-C [address] [place] [address] Assigned PCP 06/18/24 documented as of this encounter
--- OUTSIDE RECORDS SUMMARY | 2024-09-19 03:10 | XMS_ITS | Encounter Summary ---
Author Organization [place] Address [address] [place] [address]. [place] [address] Care Team Providers Care Patient Care Specialist Name Role Phone Annalisa Mark APRN, CNP Primary Care Provi miguel Unavailable Annalisa Mark APRN, CNP Unavailable Un available Jacob Carmona MD Unavailable Leonor Burgos MD Unavailable + Annalisa Mark APRN, CNP Unavailable Un available SabJacob sylvester MD Primary Care Provider Leonor Burgos MD Unavailable + [facility] Primary Care Provider Annalisa Mark APRN, CNP Unavailable Un available Curtis Núñez MD Unavailable [phone] Leonor Burgos MD Unavailable + Annalisa Mark APRN, CNP Unavailable Un available Lisa Wright PA-C Primary Care Provider [phone] Lisa Wright PA-C Unavailable [phone] Chanel Asher PA-C Unavailable Lisa Wright PA-C Unavailable [phone] Encounter Details Date Type Department Care Team (Late st Contact Info) Description 12/04/2020 MyC Medical Advice [facility] Deborah [address] [facility] [address] [place] [address] Jacob Carmona MD [address] [place] [address] Social History Tobacco Use Types [...] 02/15/2019 Lack of Transportation (Non-Medical) No 02/15/2019 [place] Depression Scale Answer Date Recorded [place] Depression Score 2 09/21/2019 Last EPDS Self Harm Result Not on file 09/21 Education Answer Date Recorded What is the highest level of school you have completed or the highest degree you have received? 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 Not on file Not on file [...] Out C-difficile 09/10/2022 09/10/2022 023 5:27 PM GUMMED TAPE PRESS OPERATOR C-difficile 09/10/2022 09/10/2022 10/10/2022 11:3 9 PM CDT Assessment Noted Time PHQ-9 Depression Total Score: 2 11/15/19 7:03 AM CDT documented as of this encounter Care Teams Patient Care Specialist Relationship Specialty Start Date End Date Annalisa Mark APRN POST EXCHANGE MANAGER PCP - General Nurse Practitioner 03/22/15 06/29/22 Jacob Carmona MD [address] [place] [address] PCP - General 06/30/22 08/28/22 [facility] [address] [place] [address] PCP - General 08/29/22 01/18/23 Lisa Wright PA-C [address] [place] [phone] PCP - General Family Medicine 01/19/23 Annalisa Mark APRN POST EXCHANGE MANAGER Assigned PCP 01/22/20 02/21/22 Jacob Carmona MD [address] [place] [address] Assigned OBGYN Provider 05/18/20 Leonor Burgos MD [place] [address] [place] [address] Assigned PCP 02/22/22 05/16/22 Annalisa Mark APRN POST EXCHANGE MANAGER Assigned PCP 05/17/22 08/15/22 Leonor Burgos MD [place] [address] [employer] [address] [place] [address] Assigned PCP 08/16/22 08/29/22 Annalisa Mark APRN POST EXCHANGE MANAGER [address] [place] [address] Assigned PCP 08/30/22 11/21/22 Curtis Núñez MD 420 [facility] 276 [place] [address] Assigned Pulmonology Provider 09/13/22 05/17/24 Leonor Burgos MD [place] [address] [employer] [address] [place] [address] Assigned PCP 11/22/22 11/28/22 Annalisa Mark APRN POST EXCHANGE MANAGER Assigned PCP 11/29/22 01/23/23 Lisa Wright PA-C [address] [facility] [address] Assigned PCP 01/24/23 04/17/24 Chanel Asher PA-C 6565 [facility] 200 [place] [address] Assigned PCP 04/18/24 06/17/24 Lisa Wright PA-C [address] [place] [address] Assigned PCP 06/18/24 documented as of this encounter
--- OUTSIDE RECORDS SUMMARY | 2024-09-19 03:10 | XMS_ITS | Encounter Summary ---
Author Organization [place] Address [address] [place] [address]. [place] [address] Care Team Providers Care Copy Chaser Name Role Phone Annalisa Mark APRN, CNP Primary Care Provi miguel Unavailable Leonor Burgos MD Unavailable + Deedee, Annalisa Peacock APRN, CNP Unavailable Un available DeedeeAnnalisa dena APRN, CNP Unavailable Un available Mukul Rivas PA-C Unavailable + [phone] DeedeeAnnalisa APRN, CNP Unavailable Un available Mukul Rvias PA-C Unavailable [phone] Deedee, Annalisa Peacock APRN, CNP Unavailable Un available Jacob Carmona MD Unavailable + [phone] Leonor Burgos MD Unavailable + DeedeeAnnalisa dean APRN, CNP Unavailable Un available Jacob Carmona MD Primary Care Provider Leonor Burgos MD Unavailable + [facility] Primary Care Provider DeedeeAnnalisa dean APRN, CNP Unavailable Un available Curtis Núñez MD Unavailable [phone] Leonor Burgos MD Unavailable + Annalisa Mark APRN KEY ACCOUNT COORDINATOR Unavailable Un available Angelica Wrighttana Moore PA-C Primary Care Provider Norm Wrightkendall Moore PA-C Unavailable [phone] Chanel Asher PA-C Unavailable Lisa Wright Teresa PA-C Unavailable Encounter Details Date Type Department Care Team (Late st Contact Info) Description 07/08/2016 MyC Medical Advice [address] [place] [phone] Benito Monson, RN Social History Tobacco Use Types Packs/Day Years Used Date Smoking Tobacco: Never Smokeless Tobacco: Never Alcohol Use Standard Drinks/Week Comments Yes 0 (1 standard drink = 0.6 oz pur e alcohol) Occaisional Comments Yes Sex and Gender Information Value Date Recorded Sex Assigned at Female 03/25/2021 2:01 PM CDT Legal Sex Female 3:18 AM MARKETING PRODUCER Gender Identity Female 03/25/2021 2:01 PM CDT [...] C-difficile 09/10/2022 09/10/2022 023 5:27 PM MARKETING PRODUCER C-difficile 09/10/2022 09/10/2022 10/10/2022 11:3 9 PM CDT Assessment Noted Time PHQ-9 Depression Total Score: 5 04/22/20 16 7:19 AM CDT documented as of this encounter Care Teams Copy Chaser Relationship Specialty Start Date End Date Annalisa Mark APRN KEY ACCOUNT COORDINATOR PCP - General Nurse Practitioner 03/22/15 06/29/22 Leonor Burgos MD [place] [address] [place] [address] PCP - Assigned PCP 12/13/17 06/05/18 Annalisa Mark APRN KEY ACCOUNT COORDINATOR PCP - Assigned PCP 06/06/18 09/28/18 Jacob Carmona MD [address] [place] [address] PCP - General 06/30/22 08/28/22 [facility] [address] [place], [place] [phone] PCP - General 08/29/22 01/18/23 Lisa Wright PA-C [address] [place] [address] PCP - General Family Medicine 01/19/23 Annalisa Mark APRN KEY ACCOUNT COORDINATOR Assigned PCP 06/06/18 07/02/19 Mukul Rivas PA-C [address] [place] [address] Assigned PCP 07/03/19 11/19/19 Annalisa Mark APRN KEY ACCOUNT COORDINATOR Assigned PCP 11/20/19 12/10/19 Mukul Rivas PA-C [address] [place] [address], [place] [id number] Assigned PCP 12/11/19 01/21/20 Annalisa Mark APRN KEY ACCOUNT COORDINATOR Assigned PCP 01/22/20 02/21/22 Jacob Carmona MD [address] [place] [address] Assigned OBGYN Provider 05/18/20 Leonor Burgos MD [place] [address] [place] [address] Assigned PCP 02/22/22 05/16/22 Annalisa Mark APRN KEY ACCOUNT COORDINATOR Assigned PCP 05/17/22 08/15/22 Leonor Burgos MD [place] [address] [place], [place] [address] Assigned PCP 08/16/22 08/29/22 Annalisa Mark APRN KEY ACCOUNT COORDINATOR [address] [place] [address] Assigned PCP 08/30/22 11/21/22 Curtis Núñez MD 420 [facility] 276 [place], [place] [address] Assigned Pulmonology Provider 09/13/22 05/17/24 Leonor Burgos MD [place] [address] [place] [address] Assigned PCP 11/22/22 11/28/22 Deedee Annalisaarnulfo Peacock APRN KEY ACCOUNT COORDINATOR Assigned PCP 11/29/22 01/23/23 Lisa Wright PA-C [address] [place] [address] Assigned PCP 01/24/23 04/17/24 Chanel Asher PA-C 65[address] [facility] 200 [place] [address] Assigned PCP 04/18/24 06/17/24 Lisa Wright PA-C [address] [place] [address] Assigned PCP 06/18/24 documented as of this encounter
--- OUTSIDE RECORDS SUMMARY | 2024-09-19 03:10 | XMS_ITS | Encounter Summary ---
Author Organization [place] Address [address] [place] [address]. [place] [address] Care Team Providers Care Personal Development Educator Name Role Phone Annalisa Mark APRN, CNP Primary Care Provi miguel Unavailable Leonor Burgos MD Unavailable + Deedee, Annalisa Peacock APRN, CNP Unavailable Un available DeedeeAnnalisa dean APRN, CNP Unavailable Un available Mukul Rivas PA-C Unavailable + [phone] DeedeeAnnalisa APRN, CNP Unavailable Un available Mukul Rivas PA-C Unavailable [phone] Deedee, Annalisa Peacock APRN, CNP Unavailable Un available Jacob Carmona MD Unavailable + [phone] Leonor Burgos MD Unavailable + DeedeeAnnalisa dean APRN, CNP Unavailable Un available Jacob Carmona MD Primary Care Provider Leonor Burgos MD Unavailable + [facility] Primary Care Provider DeedeeAnnalisa dean APRN, CNP Unavailable Un available Curtis Núñez MD Unavailable [phone] Leonor Burgos MD Unavailable + Annalisa Mark APRN OVEN LOADER Unavailable Un available KyleNormLisa M PA-C Primary Care Provider [phone] Lisa Wright PA-C Unavailable [phone] Chanel Asher PA-C Unavailable Norm Wrightkendall Moore PA-C Unavailable [phone] Encounter Details Date Type Department Care Team (Late st Contact Info) Description 06/16/2016 MyC Medical Advice [address] [phone] Annalisa Mark, JADEN MONTALVO Social History Tobacco Use Types Packs/Day Years Used Date Smoking Tobacco: Never Smokeless Tobacco: Never Alcohol Use Standard Drinks/Week Comments Yes 0 (1 standard drink = 0.6 oz pur e alcohol) Occaisional Comments Yes Sex and Gender Information Value Date Recorded Sex Assigned at Female 03/25/2021 2:01 PM CDT Legal Sex Female 3:18 AM TRACK GREASER Gender Identity Female 03/25/2021 2:01 PM CDT [...] Out C-difficile 09/10/2022 09/10/2022 023 5:27 PM TRACK GREASER C-difficile 09/10/2022 09/10/2022 10/10/2022 11:3 9 PM CDT Assessment Noted Time PHQ-9 Depression Total Score: 5 04/22/20 16 7:19 AM CDT documented as of this encounter Care Teams Personal Development Educator Relationship Specialty Start Date End Date Annalisa Mark APRN OVEN LOADER PCP - General Nurse Practitioner 03/22/15 06/29/22 Leonor Burgos MD [address] [place] [address] PCP - Assigned PCP 12/13/17 06/05/18 Annalisa Mark APRN OVEN LOADER PCP - Assigned PCP 06/06/18 09/28/18 Jacob Carmona MD [address] [place] [address] PCP - General 06/30/22 08/28/22 [facility] [address] [place], [place] [id number] PCP - General 08/29/22 01/18/23 Lisa Wright PA-C [address] [place] [phone] PCP - General Family Medicine 01/19/23 Annalisa Mark APRN OVEN LOADER Assigned PCP 06/06/18 07/02/19 Mukul Rivas PA-C [address] [place] [id number] Assigned PCP 07/03/19 11/19/19 Annalisa Mark APRN OVEN LOADER Assigned PCP 11/20/19 12/10/19 Mukul Rivas PA-C [address] [place] [id number] Assigned PCP 12/11/19 01/21/20 Annalisa Mark APRN OVEN LOADER Assigned PCP 01/22/20 02/21/22 Jacob Carmona MD [address] [place] [address] Assigned OBGYN Provider 05/18/20 Leonor Burgos MD [address] [address] [place] [address] Assigned PCP 02/22/22 05/16/22 Annalisa Mark APRN OVEN LOADER Assigned PCP 05/17/22 08/15/22 Leonor Burgos MD [address] [address] [employer] [address] [place], [place] [address] Assigned PCP 08/16/22 08/29/22 Annalisa Mark APRN OVEN LOADER [address] [place] [address] Assigned PCP 08/30/22 11/21/22 Curtis Núñez MD 420 [facility] 276 [place], [place] [address] Assigned Pulmonology Provider 09/13/22 05/17/24 Leonor Burgos MD [address] [place] [address] Assigned PCP 11/22/22 11/28/22 Deedee Annalisa JADEN Peacock OVEN LOADER Assigned PCP 11/29/22 01/23/23 Lisa Wright PA-C [address] [facility] [address] Assigned PCP 01/24/23 04/17/24 Chanel Asher PA-C 6565 [facility] 200 [place] [address] Assigned PCP 04/18/24 06/17/24 Lisa Wright PA-C [address] [facility] [address] Assigned PCP 06/18/24 documented as of this encounter
== END 2024-09-19 03:06 | disposition home or self-care (01) ==
PROVIDERS: Emergency Provider Family Medicine
DX: M54.50 Low back pain, unspecified (principal); M54.12 Radiculopathy, cervical region
CPT/HCPCS: 81001; 87086; 99284